=== PATIENT | female | born 1960 | race Caucasian/White ===

== ENCOUNTER 2022-02-25 14:43 | Outpatient (REF) | payer OTHER, SELFPAY ==
[2022-02-26 04:00] LABS: CT PCR NOT DETECTED (Not Detect.); NG PCR NOT DETECTED (Not Detect.)
[2022-02-26 11:00] LABS: BV Int Neg Control Negative (Negative); BV Int Pos Control Positive (Positive)
[2022-03-01 08:32] LABS: HPV mRNA E6/E7 rflx Not Detected (Not Detected)
== END 2022-02-25 14:44 | disposition home or self-care (01) ==
LOC: HO.LAB 14:43
PROVIDERS: Visit Provider Advanced Practice Midwife
DX: Z01.411 Encounter for gynecological examination (general) (routine) with abnormal findings (principal); Z11.51 Encounter for screening for human papillomavirus (HPV); R10.2 Pelvic and perineal pain; N89.8 Other specified noninflammatory disorders of vagina; Z20.2 Contact with and (suspected) exposure to infections with a predominantly sexual mode of transmission; R21 Rash and other nonspecific skin eruption; N64.59 Other signs and symptoms in breast; F17.200 Nicotine dependence, unspecified, uncomplicated; Z71.6 Tobacco abuse counseling
CPT/HCPCS: 87480; 87491; 87510; 87591; 87624; 87660; 88142

== ENCOUNTER 2022-03-18 13:30 | Outpatient (REF) | payer OTHER, SELFPAY ==
--- NOTE | ~2022-03-18 | US_ITS ---
EXAMINATION: US PELVIS CLINICAL INFORMATION: Pelvic and perineal pain. COMPARISON: Ultrasound pelvis report 01/19/2007 TECHNIQUE: Ultrasound of the pelvis was performed using both transabdominal and transvaginal transducers along with Doppler. Transvaginal imaging was performed due to inadequate visualization transabdominally. FINDINGS: Uterus: The uterus is anteverted and anteflexed and measures 9.0 x 3.8 x 4.1 cm The double wall endometrial thickness is not visualized. The uterus is smooth in contour and has normal myometrial echogenicity. No visible fibroid. A fibroid was visualized on the previous ultrasound exam in 2006. Adnexa: Both ovaries are visualized. There is normal color-flow to the adnexa. There is no ovarian torsion. There is no pelvic ascites or fluid collection. Right ovary measures 2.2 x 1.6 x 2.1 cm and volume 3.9 mL. It appears unremarkable. Previously, the right ovary measured 2.0 x 1.7 x 1.8 cm. Left ovary measures 2.3 x 1.5 x 2.3 cm and volume 4.2 mL. It appears unremarkable. Previously, the left ovary measured 2.3 x 1.7 x 2.0 cm. US/US pelvic and transvaginal IMPRESSION: Unremarkable uterus. Endometrium is not well visualized. Both ovaries are unremarkable. There is no free fluid in the cul-de-sac.
== END 2022-03-18 13:31 | disposition home or self-care (01) ==
LOC: HO.US 13:30
PROVIDERS: PCP Internal Medicine; Visit Provider Advanced Practice Midwife
DX: R10.2 Pelvic and perineal pain (principal)
CPT/HCPCS: 76830; 76856

== ENCOUNTER 2022-03-23 14:25 | Outpatient (REF) | payer OTHER, SELFPAY ==
--- NOTE | ~2022-03-23 | MM_ITS ---
EXAMINATION: MM DIAGNOSTIC DIGITAL BREAST TOMOSYNTHESIS, BILATERAL US DIAGNOSTIC ULTRASOUND BREAST, LEFT CLINICAL INFORMATION: Firmness left breast noted by patient for several months. Subtle skin changes. No discharge. Family history breast cancer, mother. The lifetime risk of breast cancer based on the Tyrer-Cuzick Model is 16%. COMPARISON: Mammography: 08/23/2016 TECHNIQUE: Digital breast tomosynthesis is performed in both the craniocaudal and mediolateral oblique views along with computer-aided detection (CAD). Synthesized 2D images are generated from the tomosynthesis. Additional views are obtained: Left MLO, spot left CC, spot left ML x2. Ultrasound left breast is targeted to the anterior breast. Grayscale imaging and color Doppler are performed without and with harmonics. FINDINGS: There are scattered areas of fibroglandular density (ACR BI-RADS breast composition Category b). Breast tissue composition borders on predominantly fatty. The right breast is stable, similar to prior exam 2016. There is no interval mass or architectural abnormality or skin thickening. No abnormal calcifications in either breast. Left breast has diffuse smooth skin thickening predominantly anterior breasts. There is subtle asymmetric density 12:00 periareolar position. Ultrasound left breast demonstrates an irregular hypoechoic mass adjacent to the deep dermis measuring approximately 0.9 x 0.8 cm. There is some associated color flow and subtle posterior shadowing. The lesion does not appear to be fixed to the skin and is able to be rolled from the deep dermis with transducer compression. There is diffuse skin thickening, measuring up to 0.7 cm in thickness. Results are discussed with the patient at time of visit. Recommend surgical consult, surgeon performed skin punch biopsy, and ultrasound-guided core biopsy of the periareolar lesion. Results and recommendation also called to [employer] senior officer (Angelina) for PCP, Dr. Reyes. MM/MM tomosynthesis diagnostic BI IMPRESSION: Left: -Suspicious irregular hypoechoic lesion 12:00 periareolar, measuring 0.9 cm. -Abnormal diffuse thickening skin. Right: -No mammographic evidence of malignancy. ASSESSMENT: BI-RADS 4: Suspicious (subcategory 4C: High suspicion for malignancy) RECOMMENDATION: -Surgical consult. Skin punch biopsy. -Ultrasound-guided core biopsy left breast mass.
== END 2022-03-23 14:26 | disposition home or self-care (01) ==
LOC: HO.MAMMO 14:25
PROVIDERS: PCP Internal Medicine; Visit Provider Advanced Practice Midwife
DX: N64.59 Other signs and symptoms in breast (principal)
CPT/HCPCS: 76642; 77062; 77066

== ENCOUNTER → 2022-03-25 08:05 | Outpatient (BNVA) | payer OTHER, SELFPAY | PROVIDERS: PCP Internal Medicine; Referring Provider Internal Medicine; Visit Provider Surgery | DX: N63.20 Unspecified lump in the left breast, unspecified quadrant (principal) | CPT/HCPCS: 99202 ==

== ENCOUNTER 2022-03-29 13:03 | Outpatient (REF) | payer OTHER, SELFPAY ==
--- NOTE | ~2022-03-29 | MM_ITS ---
EXAMINATION: ULTRASOUND GUIDED CORE BIOPSY BREAST, LEFT POST PROCEDURE DIGITAL MAMMOGRAM, LEFT CLINICAL INFORMATION: Irregular hypoechoic lesion 12:00 periareolar, or approximately 1 cm. Abnormal diffuse skin thickening. COMPARISON: Mammography 03/23/2022, 08/23/2016, ultrasound left breast 03/23/2022. FINDINGS: Proper informed consent is obtained from the patient after discussion of the procedure, potential risks and complications, and alternatives. Patient was given an opportunity for questions. The patient appeared to understand. The patient consented to the procedure and signed the consent form. GUIDANCE: Ultrasound-guided; aseptic technique. LESION: Irregular superficial hypoechoic lesion 12:00 periareolar left breast with diffuse skin thickening. APPROACH: Lateral medial. ANESTHESIA: 14 mL carbonated 1% lidocaine. DERMATOTOMY: Single skin kory dermatotomy performed. NEEDLE: 14-gauge Achieve core biopsy device with 13.5-gauge co-axial guide needle. CORES: 5. CLIP: HydroMARK; shape: butterfly. POST PROCEDURE UNILATERAL DIGITAL MAMMOGRAM: The post biopsy mammogram is performed in separate room using separate digital mammography equipment from the biopsy procedure. CC and ML views are obtained. There are scattered areas of fibroglandular density (breast composition category: b). The clip marker is in position and corresponds to finding on recent mammography. Again, there is abnormal diffuse thickening of the skin left breast. No gross hematoma. The patient tolerated the procedure well. No immediate complications. Home instructions reviewed with the patient. Final pathology results are pending. MM/MM diagnostic mammo unilat LT IMPRESSION: 1. Status post ultrasound-guided core biopsy left breast. 2. Clip placed: HydroMARK; shape: butterfly. 3. Pathology pending. An addendum report will be issued.
[2022-03-29] MEDS: Lidocaine HCl 1 % 20 ML VIAL 15 ML SUBCUT (14:34)
[2022-03-29] MEDS: Sodium Bicarbonate 8.4% 50 MEQ/50 ML VIAL SUBCUT (14:35)
== END 2022-03-29 13:04 | disposition home or self-care (01) ==
LOC: HO.MAMMO 13:03
PROVIDERS: Visit Provider Internal Medicine
DX: N63.25 Unspecified lump in the left breast, overlapping quadrants (principal)
CPT/HCPCS: 19083; 36415; 77062; 77065; 88305; 88360; 88374

== ENCOUNTER 2022-04-01 12:46 | Outpatient (REF) | payer OTHER, SELFPAY | END 2022-04-01 12:47 | disposition home or self-care (01) | LOC: HO.LAB 12:46 | PROVIDERS: PCP Internal Medicine; Referring Provider Internal Medicine; Visit Provider Surgery | DX: C50.912 Malignant neoplasm of unspecified site of left female breast (principal); F17.210 Nicotine dependence, cigarettes, uncomplicated; B37.3 Candidiasis of vulva and vagina; Z71.2 Person consulting for explanation of examination or test findings; Z79.899 Other long term (current) drug therapy | CPT/HCPCS: 88305; 88312; 99212 ==

== ENCOUNTER → 2022-04-08 07:49 | Outpatient (BNV) | payer OTHER, SELFPAY | PROVIDERS: PCP Internal Medicine; Referring Provider Surgery; Visit Provider Internal Medicine Medical Oncology | DX: C50.912 Malignant neoplasm of unspecified site of left female breast (principal); C77.3 Secondary and unspecified malignant neoplasm of axilla and upper limb lymph nodes; Z17.0 Estrogen receptor positive status [ER+]; D75.1 Secondary polycythemia | CPT/HCPCS: 99204; 99212; 99213; 99214 ==

== ENCOUNTER → 2022-04-08 09:19 | Outpatient (BNVA) | payer OTHER, SELFPAY | PROVIDERS: PCP Internal Medicine; Referring Provider Internal Medicine; Visit Provider Surgery | DX: C50.912 Malignant neoplasm of unspecified site of left female breast (principal) | CPT/HCPCS: 99212 ==

== ENCOUNTER → 2022-04-27 07:47 | Day surgery (SDC) | payer OTHER, SELFPAY ==
[2022-04-21 11:42] VITALS: BMI 37.0
--- NOTE | 2022-04-26 11:41 | HO.ANESPROP2 ---
HPI - Anesthesia Eval Consult details Narrative: CX'd DOS for hyperglycemia 62yo F for Left Breast Lumpectomy/Needle Loc, [place] Node Biopsy PMFSH Active Problems Active Problems: All Active Problems (Updated 04/21/22 @ 11:54 by Kamryn Freedman, RN) Type 2 diabetes mellitus with hyperglycemia (Acute) Generalized anxiety disorder (Acute) Urge incontinence (Acute) Obesity (BMI 30-39.9) (Acute) RLS (restless legs syndrome) (Acute) Colonoscopy refused (Acute) Mammogram declined (Acute) Ductal carcinoma in situ (DCIS) of left breast (Acute) Tobacco abuse (Acute) Encounter to discuss test results (Acute) Vaginal yeast infection (Acute) DCIS (ductal carcinoma in situ) (Acute) Invasive ductal carcinoma of left breast (Acute) Peripheral vascular disease (Acute) Hypertension (Acute) COPD (chronic obstructive pulmonary disease) (Acute) Hypercholesterolemia (Acute) Past Medical History Medical History (Updated 04/30/22 @ 12:34 by JESSICA Webster) Arthritis Cervical cancer screening COPD (chronic obstructive pulmonary disease) DCIS (ductal carcinoma in situ) Diabetes History of anal fissures History of palpitations History of unsteady gait Hx of renal calculi Hypercholesterolemia Hypertension Invasive ductal carcinoma of left breast Low back pain Mild heartburn Peripheral vascular disease Thyroid nodule Urinary incontinence Family History Family History (Updated 04/30/22 @ 11:54 by EDEN Shelton) Mother History of breast cancer Father No problems noted. Brother No problems noted. Brother No problems noted. Daughter No problems noted. Surgical History Surgical History (Updated 04/30/22 @ 12:04 by EDEN Shelton) History of appendectomy History of biopsy History of bladder surgery History of cholecystectomy History of endometrial ablation History of left knee replacement History of tonsillectomy Hx of tubal ligation Social History Social History Household Members: Spouse and Children Housing: House Are you a primary pediatric acute care unit nurse to a significant other at home: Yes (primary pediatric acute care unit nurse for disabled , will have some assistance post-op) Do you presently have visiting nurse or other home services: No Alcohol intake: never Patient Tobacco Use Status: Current everyday Tobacco user Tobacco use type: Cigarette Cigarette Packs Per Day: 0.5 Cigarettes Per Day: 10 Years Smoked: 40+ e-Cigarette/Vaping Use: Never Used Second Hand Smoke Exposure: Yes service: No Current occupational status: disabled Cognitive needs: No Hearing needs: No Vision needs: No Meds Allergies Allergy/AdvReac Type Severity Reaction Status Date / Time diclofenac [From Voltaren] Allergy Severe ENLARGED Verified 04/30/22 11:56 LIVER lisinopril [From Zestril] Allergy Severe FLUID IN Verified 04/30/22 11:56 LUNG oxybutynin [Oxybutynin] Allergy Severe BODY Verified 04/30/22 11:56 TWITCHING Penicillins [PENICILLINS] Allergy Intermediate Facial Verified 04/30/22 11:56 Swelling Home Medications Medication Instructions Recorded Confirmed Last Taken Type albuterol sulfate 2.5 mg inhalation Q4-6H PRN 08/25/21 04/30/22 Unknown History Shortness Of Breath Or Wheezing albuterol sulfate 90 mcg/actuation 1 puff inhalation QID 08/25/21 04/30/22 Unknown History aerosol inhaler (Ventolin HFA) cholecalciferol (vitamin D3) 50 50 mcg PO DAILY 02/25/22 04/30/22 Unknown History mcg (2,000 unit) capsule solifenacin 5 mg tablet (Vesicare) 5 mg PO DAILY 04/08/22 04/30/22 Unknown History acetaminophen 500 mg tablet 1,000 mg PO Q6H PRN Pain 04/21/22 04/30/22 Unknown History Exam Exam Date and Time: April 26, 2022 1141 Height,Weight and Vital Signs: Height 5 ft 4 in Weight 97.976 kg Pertinent Lab Results Pertinent Lab Results: Laboratory Tests 04/08/22 04/08/22 09:11 09:11 WBC 13.0 H Hgb 16.7 H Hct 50.1 H Plt Count 271 Sodium 134 L Potassium 4.7 Chloride 103 Carbon Dioxide 23 BUN 13 Creatinine 0.81 Assessment and Plan Assessment Anesthesia Assessment: Chart Reviewed
--- NOTE | 2022-04-27 | ECG_ITS ---
Test Reason : PREOP Blood Pressure : / mmHG Vent. Rate : 096 BPM Atrial Rate : 096 BPM P-R Int : 144 ms QRS Dur : 084 ms QT Int : 362 ms P-R-T Axes : 042 034 057 degrees QTc Int : 457 ms Normal sinus rhythm Normal ECG When compared with ECG of 25-SEP-2010 18:10, No significant change was found Referred By: Dulce Park Electronically Signed By:SALAZAR SIMON
--- NOTE | ~2022-04-27 | US_ITS ---
PROCEDURE: US GUIDED AXILLARY LYMPH NODE BIOPSY, LEFT CLINICAL INFORMATION: Left breast malignancy with abnormal-appearing axillary lymph node. COMPARISON: Mammography of March 29, 2022 and studies dating back to January 31, 2007 PROCEDURAL DETAILS: The details of the procedure, as well as the risks, benefits, and alternatives to the procedure were explained to the patient in detail and all of her questions were answered, after which written informed consent was obtained. Site and side were confirmed. Prior to the procedure, sonography revealed an abnormally appearing axillary lymph node with somewhat lobulated and thickened cortex with portions of the cortex measuring greater than 5 mm in diameter.. A time-out was performed, the lesion intended for biopsy was targeted, and the skin of the left axilla was then prepped and draped in the usual sterile fashion. Using sonographic guidance, sterile technique, and 1% lidocaine without epinephrine for local anesthesia, multiple automated core biopsies were obtained through the targeted area with a 14G spring loaded Achieve core biopsy device. There was real-time confirmation of appropriate needle passage. Sampling was documented. At the completion of tissue sampling, a single coil-shaped metallic clip was deposited at the biopsy site. There was no evidence of immediate complication. SPECIMEN: An appropriate sample was obtained. A postprocedure mammogram was not performed since the lesion was high up in the axilla and there was real-time visualization of the clip deposition within the lymph node. The patient tolerated the procedure well and, after assuring adequate hemostasis, was discharged in good condition after reviewing postbiopsy breast care instructions. Final pathology results are pending. US/US breast LT limited IMPRESSION: 1. No immediate complication from ultrasound-guided percutaneous biopsy left axillary lymph node . 2. Ultrasound was used to localize and guide marker clip placement. 3. Final pathology results are pending. A separate report with final recommendations will be issued once these results are made available. .
--- NOTE | 2022-04-27 10:21 | PC.NURSE ---
surgery cancelled due to blood sugar of 365.
--- NOTE | 2022-04-27 10:27 | PM.EVENT ---
Event Note Date of Service: 04/27/22 Event Note: procedure canceled by anesthesiologist because of markedly elevated blood sugar at 365 will that primary care provider know images also reviewed with the radiologist this morning - possibly enlarged lymph node in the left axilla will send for ultrasound axilla now with possible core needle biopsy explained patient above issues she says she understands and comfortable with plan
[2022-04-27 10:29] LABS: Glucose, Whole Blood 365 mg/dL (60-115)
[2022-04-27] MEDS: Lidocaine HCl 1 % 20 ML VIAL 10 ML SUBCUT (12:04)
== END ==
PROVIDERS: PCP Internal Medicine; Visit Provider Surgery
DX: C50.912 Malignant neoplasm of unspecified site of left female breast (principal); Z53.09 Procedure and treatment not carried out because of other contraindication; E11.65 Type 2 diabetes mellitus with hyperglycemia; Z79.84 Long term (current) use of oral hypoglycemic drugs
CPT/HCPCS: 38505; 76642; 76942; 82947; 88305; 88341; 88342; 88360; 93005; A4648

== ENCOUNTER 2022-05-07 09:18 | Outpatient (REF) | payer OTHER, SELFPAY ==
[2022-05-07 10:34] LABS: Leukocytes Stool Qualitative NEGATIVE (NEGATIVE)
[2022-05-07 10:47] LABS: CDiff Gene PCR NEGATIVE (Negative)
== END 2022-05-07 09:19 | disposition home or self-care (01) ==
LOC: HO.LNP 09:18
PROVIDERS: Visit Provider Internal Medicine Medical Oncology
DX: R19.7 Diarrhea, unspecified (principal); E11.9 Type 2 diabetes mellitus without complications; C50.919 Malignant neoplasm of unspecified site of unspecified female breast
CPT/HCPCS: 87045; 87046; 87493; 89055

== ENCOUNTER → 2022-05-10 12:38 | Outpatient (BNVA) | payer OTHER, SELFPAY | PROVIDERS: PCP Internal Medicine; Visit Provider Surgery | DX: C50.912 Malignant neoplasm of unspecified site of left female breast (principal) | CPT/HCPCS: 99212 ==

== ENCOUNTER 2022-05-20 14:14 | Outpatient (REF) | payer OTHER, SELFPAY ==
--- NOTE | ~2022-05-20 | XR_ITS ---
EXAMINATION: XR HIP, LEFT CLINICAL INFORMATION: Pain in left hip. COMPARISON: CT abdomen and pelvis 06/30/2007. TECHNIQUE: AP view pelvis and AP and frog-lateral projections of the left hip are obtained. FINDINGS: There is a stimulator lead overlying right sacrum and pelvis with generator right lateral soft tissues. No lead fracture. There are degenerative changes lower lumbar spine with mild levocurvature. Mild degenerative change SI joints. The bony pelvis is intact. There is whiskering from the bilateral lateral iliac crests. Left hip shows no fracture, dislocation, or destructive process. No hip joint narrowing or erosive change. XR/XR hip LT min 2V IMPRESSION: -Stimulator device overlying right sacrum and pelvis. No lead fracture. -Degenerative changes lumbosacral spine. -Unremarkable left hip.
== END 2022-05-20 14:15 | disposition home or self-care (01) ==
LOC: HO.XRAY 14:14
PROVIDERS: Visit Provider Nurse Practitioner Family
DX: M25.552 Pain in left hip (principal)
CPT/HCPCS: 73502

== ENCOUNTER 2022-06-08 11:36 | Outpatient (REF) | payer OTHER, SELFPAY ==
--- NOTE | ~2022-06-08 | PE_ITS ---
EXAMINATION: Fluorine-18 FDG PET/CT Scan CLINICAL INDICATION: Initial treatment management. Invasive ductal carcinoma left breast at 12:00 in the periareolar region with ipsilateral metastatic left axillary lymph node. PROCEDURE: 67 minutes following the intravenous administration of 18.2 mCi of fluorine 18 FDG, images from the base of the skull to the mid thighs were obtained using a combined PET/CT scanner with CT scan based attenuation correction. No intravenous contrast was administered. Transverse, coronal, sagittal, and volume reconstruction projections were obtained. The patient's blood glucose as determined by a finger stick, was 201 mg/dl immediately prior to injection. The radiotracer was injected through the left antecubital superficial vein, without any complication. Total CT exam dose-length product 1219.41 mGy-cm * These CT images were obtained using dose optimization techniques as appropriate, variously including the following: Automated exposure control * Adjustment of mA and/or kV according to patient size (this includes techniques or standardized protocols for targeted exams where dose is matched to indication/reason for exam; i.e. extremities or head) * Use of iterative reconstruction technique COMPARISON: Ultrasound-guided left axillary lymph node biopsy done on 04/27/2022 and ultrasound-guided left breast periareolar 12:00 mass biopsy done on 03/29/2022. FINDINGS: NECK AND VISUALIZED HEAD: No metabolically active disease is present. THORAX: No metabolically active disease is present. Incidental note is made of heterogeneous asymmetric enlargement of the right lobe of the thyroid gland and hypodense nodules, not optimally characterized. The index biopsy proved malignancy involving the subareolar left breast shows mild increased metabolic activity. Multiple abnormal enlarged left axillary lymph nodes associated with mild increased metabolic activities are also noted, consistent with biopsy-proven metastatic left axillary lymphadenopathy. Please note that the maximum SUV value could not be accurately calculated due to technical error in the software. ABDOMEN AND PELVIS: No metabolically active disease is present. Hypodense approximately 1.7 cm left adrenal nodule with maximum Hounsfield value of -6.0 is most consistent with left adrenal lipid rich adenoma. There is a solid-appearing right adrenal approximately 2 cm maximum dimension mass identified with Hounsfield value of 27 (137:2) without any increased radiotracer activity, not optimally characterized. Follow-up CT scan per adrenal mass protocol with and without contrast including delayed imaging, as appropriate may be considered for further characterization. Incidental note is made of a right-sided extrarenal pelvis. Solitary sub-5 mm radiopaque nonobstructing calculus is present within the inferolateral calyx of the left kidney (118:2). MUSCULOSKELETAL: No suspicious focal lesion or metabolically active disease is identified. Note is however made of nonspecific mild increased radiotracer activity involving the distal part of the left forearm (79:2), without any definite CT correlate, not optimally characterized. Clinical correlation is recommended. Follow-up targeted ultrasound and/or MRI with intravenous contrast may also be considered, if clinically appropriate for further clarification. VASCULAR: Diffuse atherosclerotic disease of the aorta and is branches including coronary arterial calcifications are present. No evidence of any aortic aneurysm. PET/PET CT fusion skull to thigh IMPRESSION: 1. Previously identified left breast subareolar mass and left axillary lymphadenopathy shows mild increased radiotracer activities, consistent with clinically known biopsy-proven primary left breast malignancy and metastatic left axillary lymphadenopathy. No other additional metabolically active disease is identified within the remainder of the visualized part of the head and neck, chest abdomen and pelvis. 2. Incidental note however is made of lipid rich left adrenal adenoma and approximately 1.7 cm right adrenal solid non-FDG avid nodule with Hounsfield value of 27 which is not optimally characterized on this study. Follow-up CT scan per adrenal mass protocol with and without intravenous contrast including delayed imaging, as appropriate may be considered for further characterization of this right adrenal nodule. 3. Solitary sub-5 mm radiopaque nonobstructing left renal calculus. 4. Incidental note is made of nonspecific mild increased radiotracer activity involving the distal part of the left forearm, without any CT correlate, not optimally characterized. Clinical correlation/direct visualization as appropriate is recommended for further clarification. Follow-up targeted ultrasound and/or MRI with intravenous contrast may also be considered if clinically appropriate for further clarification.
== END 2022-06-08 11:37 | disposition home or self-care (01) ==
LOC: HO.PET 11:36
PROVIDERS: Visit Provider Internal Medicine Medical Oncology
DX: Z13.89 Encounter for screening for other disorder (principal)

== ENCOUNTER → 2022-06-17 14:04 | Outpatient (REF) | payer OTHER, SELFPAY ==
--- NOTE | 2022-06-17 15:19 | CA_ITS ---
Transthoracic Echocardiogram Patient (Last, First, Middle): Sarah Ervin A Gender: Female Date of : 1960 Age: 62 Procedure Date: 06/17/2022 Procedure Type: Transthoracic Echocardiogram Location: OP Height: 162.56 cm Weight: 96.62 kg BSA: 2.01 m2 Heart Rate: bpm BP: 149 / 70 mmHg Electrician Control Equipment: IDALIA Referring MD: Madina Mitchell MD Symptoms: breast cat, prechemotherapy assessment Study Quality: Adequate ECG Rhythm: Sinus Conclusions: - The left ventricular systolic function is normal. The visually estimated ejection fraction is between 55-60%. - No obvious valvular pathology seen on this study. - There is mild dilatation of the ascending aorta measuring 4.10 cm. Findings Left Ventricle Normal left ventricular cavity size. The left ventricular systolic function is normal. The visually estimated ejection fraction is between 55-60%. There is no evidence of regional wall motion abnormalities. Diastolic function is normal for age. There is mild septal asymmetric hypertrophy. Left ventricular peak global longitudinal strain diminished at -12.4%. Could also be technical. Right Ventricle Normal right ventricular cavity size and systolic function. Atria Both atria are normal in size. Aortic Valve The aortic valve was not well visualized. The aortic valve structure and function is likely normal. There is mild calcification of the aortic valve. There is no aortic valve stenosis. There is no aortic valve regurgitation. Mitral Valve There is mild anterior and posterior mitral leaflet thickening. There is no mitral valve regurgitation. There is no mitral valve stenosis. Pulmonic Valve The pulmonic valve is likely normal. Tricuspid Valve The tricuspid valve was not well visualized. There is trace tricuspid valve regurgitation. There is no evidence of pulmonary hypertension. Great Vessels There is mild dilatation of the ascending aorta measuring 4.10 cm. Venous The inferior vena cava is normal in size and collapses greater than 50% with inspiration. Prior Study Comparison Changes noted compared to prior study dated: 05/02/2015. See comment on aorta. Strain was not previously measured. Recommendations, Care & Conclusions No obvious valvular pathology seen on this study. Measurements 2D Linear Measurements IVSd: 1.12 0.6-0.9/0.6-1.0 cm LVIDd: 4.65 3.9-5.3/4.2-5.9 cm LVIDd Index: 2.31 2.4-3.2/2.2-3.1 cm/m2 LVIDs: 3.40 2.0-3.6 cm LVPWd: 0.71 0.7-1.1 cm LA Diam: 2.90 2.7-3.8/3.0-4.0 cm LAIDs Index: 1.44 1.5-2.3 cm/m2 LV Mass: 178.28 67-162/88-224 g LV Mass Index: 88.70 43-95/49-115 g/m2 LVOT Diam: 2.20 3.0+(-)1.3 cm 2D Systolic Function EF 4C: 62.40 >55% Mitral Valve MV Pk E: 0.66 MV PK A: 0.80 MV Decel Time: 209.00 E/A: 0.80 E'Lateral: 6.53 E'Medial: 6.96 E/E' Med: 9.40 E/E' Lat: 10.00 PHT: 61.00 MVA PHT: 3.61 Decel Graves: 3.13 Aortic Valve AoV Pk John: 1.43 AoV Mn John: 0.93 AoV VTI: 0.24 AoV Pk Grad: 8.00 Aov Mn Grad: 4.00 SANTOS Cont.VTI: 3.11 LVOT LVOT Pk John: 1.02 LVOT Mn John: 0.71 LVOT VTI: 0.20 LVOT Pk Grad: 4.00 LVOT Mn Grad: 2.00 LVOT Diam: 2.20 LVOT Area: 3.80 Diastolic Function MV Pk E: 0.66 MV Pk A: 0.80 E/A: 0.80 E'Medial: 6.96 E/E' Med: 9.40 E' Laterial: 6.53 E/E' Lat: 10.00 Right Ventricle TAPSE (mm): 23.20 TVS' John: 12.20 Tricuspid Valve RA Press: 3.00 Great Vessels Aorta Sinus of Valsalva: 3.10 2.0-3.5 cm Ao Asc: 4.10 2.1-3.4 cm Pulmonary Valve PV Pk John: 0.88 Peak PV Grad: 3.00 Updated in Other Vendor System with Status of Final Aditya Rai MD electronically signed on 06/18/2022 12:29:20 PM with status of Final
--- NOTE | 2022-06-17 16:09 | MHC.HEMONCSW ---
TREATMENT PLAN; CHEMOTHERAPY, THEN MASTECTOMY, THEN RADIATION. NURSE NAVIGATOR IS ARRANGING THIS.
== END ==
LOC: HO.CARD 14:04
PROVIDERS: PCP Nurse Practitioner Family; Visit Provider Internal Medicine Medical Oncology
DX: Z01.818 Encounter for other preprocedural examination (principal); C50.912 Malignant neoplasm of unspecified site of left female breast
CPT/HCPCS: 93306; 93356; 99212

== ENCOUNTER 2022-06-24 12:33 | Day surgery (SDC) | payer OTHER, SELFPAY ==
--- NOTE | ~2022-06-24 | IR_ITS ---
CLINICAL HISTORY: The patient is a 62-year-old female with breast cancer requiring chemotherapy, who presents to interventional radiology for placement of a right sided chest port as requested. PROCEDURES: 1. Real-time ultrasound-guided access into the right internal jugular vein after documentation of selected vessel patency, and permanent imaging storing in the patient records. 2. Placement of an 25 cm port. FLUOROSCOPY TIME: 1.2 DAP: 212 cGy centimeter squared PROCEDURE NOTE: Informed consent was obtained from the patient prior to the procedure. During this process, the procedure and potential alternatives were explained along with the intended outcome and benefits. The risks of the procedure, including the possibility of an unsuccessful procedure, as well as the risk of not doing the procedure, were discussed. The patient was given the opportunity to ask questions regarding the procedure and appeared competent to make decisions. A signed consent form documenting this discussion was placed in the medical record. A time-out procedure was performed. The patient was placed supine on the fluoroscopy table. The right neck and chest were prepped and draped in usual sterile fashion. Venous access was achieved into the right IJ vein using ultrasound and fluoroscopic guidance with a 5 F Micropuncture set. A small skin kory was made at the access site. The 0.018 wire was exchanged for a 0.035 in J wire, which was advanced to the IVC to maintain access during dissection of the pocket and the tunneling process. Attention was then directed to the chest. Lidocaine with 1:100,000 epinephrine was used for local anesthetic and a 3 cm incision was made. The pocket was dissected to the size of the port and then a subcutaneous tunnel was made to connect to the venotomy site. The catheter was sized and pulled through the tunnel.The micropuncture set sheath in the IJ was exchanged over the wire for a peel-away sheath. The inner dilator and J wire were removed and the catheter was advanced through the peel away sheath. The peel away sheath was subsequently removed. The catheter was connected to the port and sutured within the pocket with 3-0 monofilament suture. The catheter tip is located at the superior right atrium. The port was aspirated and flushed, then packed with 5 mL of heparin solution. The incision site was sutured using 4.0 Polysorb for the subcuticular layer. Tissue adhesive was then applied to the chest port site and internal jugular puncture site. FINDINGS: 1. Patent right IJ vein. 2. Tip of catheter in the superior right atrium. 3. Catheter flushes and aspirates well. 4. No pneumothorax. 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
[2022-06-24 13:16] VITALS: BP 130/92; PULSE 92; RESP 16; TEMP 36.2; O2SAT 98; BMI 36.6
[2022-06-24 13:23] LABS: Glucose, Whole Blood 141 mg/dL (60-115)
[2022-06-24 13:40] LABS: MANUAL DIFF FLAG NO
[2022-06-24 13:43] LABS: Basophils Absolute Auto 0.1 X10*3/uL (0.0-0.2); Basophils Percent Auto 0.9 % (0-2); Eosinophils Absolute Auto 0.4 X10*3/uL (0.0-0.4); Eosinophils Percent Auto 3.2 % (0-4); Hematocrit 47.8 % (37.0-47.0); Hemoglobin 16.1 g/dl (12.0-16.0); Imm Gran Abs Auto 0.05 X10*3/uL (0.00-0.03); Imm Gran Pct Auto 0.4 % (0.0-0.4); Lymphocytes Absolute Auto 2.5 X10*3/uL (1.2-4.9); Lymphocytes Percent Auto 22.2 % (20-40); Mean Corpuscular HGB Conc 33.7 g/dl (31.0-35.0); Mean Corpuscular Hemoglobin 30.9 pg (27.0-33.0); Mean Corpuscular Volume 91.7 fL (80.0-98.0); Mean Platelet Volume 10.4 fL (9.4-12.3); Monocytes Absolute Auto 0.9 X10*3/uL (0.1-1.2); Monocytes Percent Auto 7.5 % (2-11); Neutrophils Absolute Auto 7.5 x10*3/uL (2.0-8.3); Neutrophils Percent Auto 65.8 % (45-73); Platelet Count 274 X10*3/uL (160-400); Red Blood Count 5.21 X10*6/uL (4.20-5.50); Red Cell Distribution Width 13.3 % (11.0-16.0); White Blood Count 11.4 X10*3/uL (4.8-10.8)
[2022-06-24 13:48] LABS: INTERNATIONAL NORM RATIO 0.9 (0.9-1.1); Prothrombin Time 10.5 SEC (10.0-13.1)
[2022-06-24 13:50] LABS: Partial Thromboplastin Time 36.3 SEC (26.0-36.4)
[2022-06-24] MEDS: Lidocaine HCl 1%/Epi 1:100,000 20 ML VIAL INFILTRATI (15:27)
[2022-06-24 16:15] VITALS: BP 155/79; PULSE 90; RESP 20; TEMP 36.9; O2SAT 97
[2022-06-24 16:30] VITALS: BP 126/75; PULSE 88; RESP 18; O2SAT 98
[2022-06-24 16:45] VITALS: BP 130/75; RESP 19; TEMP 36.7; O2SAT 97
== END 2022-06-24 16:50 | disposition home or self-care (01) ==
PROVIDERS: Radiology Diagnostic Radiology; PCP Internal Medicine; Visit Provider Internal Medicine Medical Oncology
DX: Z45.2 Encounter for adjustment and management of vascular access device (principal); C50.912 Malignant neoplasm of unspecified site of left female breast; Z17.0 Estrogen receptor positive status [ER+]; E11.8 Type 2 diabetes mellitus with unspecified complications; Z79.4 Long term (current) use of insulin; Z88.0 Allergy status to penicillin; Z88.8 Allergy status to other drugs, medicaments and biological substances; F17.210 Nicotine dependence, cigarettes, uncomplicated
CPT/HCPCS: 36415; 36561; 82947; 85025; 85610; 85730; 99152; 99153; C1769; C1788; J1642; J2250; J3010

== ENCOUNTER 2022-07-15 07:49 | Outpatient (REF) | payer OTHER, SELFPAY ==
--- NOTE | ~2022-07-15 | CT_ITS ---
EXAMINATION: CT ADRENAL WITHOUT AND WITHOUT CONTRAST CLINICAL INFORMATION: Follow-up right adrenal lesions. History of breast cancer. COMPARISON: Previous PET/CT scan May [address] of the abdomen and pelvis January 2011. TECHNIQUE: Axial images through the abdomen with and without IV contrast. 80 mL of Omnipaque 350 intravenous contrast was given. Sagittal and coronal reconstructions on the technologist workstation were performed. This CT examination was performed using dose optimization techniques as appropriate, variously including the following: *Automated exposure control *Adjustment of mA and/or kV according to patient size (this includes techniques or standardized protocols for targeted exams where dose is matched to indication/reason for exam; i.e. extremities or head) *Use of iterative reconstruction technique FINDINGS: There are 3 adrenal lesions. There is a 1.8 x 2.4 cm right adrenal lesion. Hounsfield units precontrast measure 29. Hounsfield units postcontrast measure 78. Delayed Hounsfield units postcontrast measure 36. Relative washout measures 54%. There is a 1.8 x 2.4 cm left adrenal nodule. Hounsfield units precontrast measure -6. Hounsfield units postcontrast measure 45. Delayed Hounsfield units postcontrast measure 8. Relative washout measures 74%. There is a 1.1 x 2.1 cm more inferior left adrenal lesion. Hounsfield units precontrast measure 10. Hounsfield units postcontrast measure 49. Delayed Hounsfield units postcontrast measure 18. Relative washout measures 63%. All adrenal lesions have washout characteristics suggestive of benign adenomas. These do not appear appreciably changed compared to old CT from January 2011. The lung bases are clear. There is skin thickening of the left breast. The liver is low in attenuation suggestive of fatty infiltration. No focal liver lesion. Gallbladder not seen. No biliary duct dilatation. Normal pancreas. Normal spleen. Small stone in the lower pole of the left kidney. Small left renal cyst. Fullness of the right renal pelvis questionable for mild UPJ obstruction versus extrarenal pelvis. No calyceal dilatation. Atherosclerotic disease. No aneurysm. No ascites or adenopathy. Visualized bowel is unremarkable. There are degenerative changes of the spine. There are lucent lesions in the L3 and L4 spinous processes. This did not demonstrate increased uptake on PET CT scan and could be related to degenerative change. CT/CT adrenal wo/w con IMPRESSION: 3 adrenal lesions, one on the right and 2 on the left. All adrenal lesions have washout characteristics suggestive of benign adenomas. Small left renal stone and small left renal cyst. Fatty liver.
[2022-07-15] MEDS: iohexoL 350 MG/ML 100 ML INFUS..BTL IV (09:41)
== END 2022-07-15 07:50 | disposition home or self-care (01) ==
LOC: HO.CT 07:49
PROVIDERS: PCP Internal Medicine; Visit Provider Internal Medicine Medical Oncology
DX: D35.00 Benign neoplasm of unspecified adrenal gland (principal); E11.65 Type 2 diabetes mellitus with hyperglycemia; E04.1 Nontoxic single thyroid nodule
CPT/HCPCS: 74170; 82947; 83036; 99202; Q9967

== ENCOUNTER → 2022-07-23 12:40 | Outpatient (BNVA) | payer OTHER, SELFPAY | PROVIDERS: PCP Internal Medicine; Visit Provider Registered Nurse Diabetes Educator | DX: E11.65 Type 2 diabetes mellitus with hyperglycemia (principal) | CPT/HCPCS: 99211 ==

== ENCOUNTER 2022-08-12 15:23 | Outpatient (REF) | payer OTHER, SELFPAY ==
--- NOTE | ~2022-08-12 | US_ITS ---
EXAMINATION: US VENOUS ULTRASOUND WITH DOPPLER LOWER EXTREMITY, RIGHT CLINICAL INFORMATION: Right lower extremity edema COMPARISON: None TECHNIQUE: Ultrasound of the deep veins is performed from the hip to the calf with compression sonography and color and pulse Doppler assessment. Spectral analysis with color-flow imaging is performed. FINDINGS: There is normal venous compression and respiratory variation and augmented flow. The visualized common femoral vein, superficial femoral vein, profunda femoral vein, popliteal vein, and the trifurcation region shows no evidence of deep venous thrombosis. The peroneal vein was not seen. There is no significant popliteal fossa cyst. If the patient's symptoms persist, followup ultrasound in 5 days 7 days might be of value to exclude proximal propagation from a non-visualized calf vein. US/US venous duplex LE RT IMPRESSION: No DVT demonstrated in the right lower extremity.
== END 2022-08-12 15:24 | disposition home or self-care (01) ==
LOC: HO.US 15:23
PROVIDERS: Visit Provider Internal Medicine Medical Oncology
DX: R60.0 Localized edema (principal); M79.604 Pain in right leg
CPT/HCPCS: 93971

== ENCOUNTER → 2022-08-16 13:56 | Outpatient (BNVA) | payer OTHER, SELFPAY | PROVIDERS: PCP Internal Medicine; Visit Provider Dietitian, Registered | DX: E11.65 Type 2 diabetes mellitus with hyperglycemia (principal) | CPT/HCPCS: 97802 ==

== ENCOUNTER → 2022-08-19 13:49 | Outpatient (BNVA) | payer OTHER, SELFPAY | PROVIDERS: PCP Internal Medicine; Visit Provider Surgery | DX: C50.912 Malignant neoplasm of unspecified site of left female breast (principal) | CPT/HCPCS: 99212 ==

== ENCOUNTER 2022-09-02 14:33 | Outpatient (REF) | payer OTHER, SELFPAY ==
--- NOTE | ~2022-09-02 | US_ITS ---
EXAM: CT scan of the head and cervical spine. INDICATION: Reason for Exam right lower extremity edema. TECHNIQUE: A noncontrast CT scan was performed from the skull base to the vertex. A noncontrast CT scan of the cervical spine was performed from the base of the skull through T1 at 2.5 mm and 1.25 mm collimation. Coronal and sagittal reformats were obtained at the acquisition workstation. This CT examination was performed using dose optimization techniques as appropriate, variously including the following: *Automated exposure control *Adjustment of mA and/or kV according to patient size (this includes techniques or standardized protocols for targeted exams where dose is matched to indication/reason for exam; i.e. extremities or head) *Use of iterative reconstruction technique DLP: 675 and 507 mGy-cm COMPARISON: None FINDINGS: Head: There is no evidence of acute intracranial hemorrhage or territorial infarction. Ribeiro-white matter differentiation is preserved. No abnormal mass effect or midline shift. No extra-axial fluid collections. No abnormal attenuation is demonstrated within the brain parenchyma. Scattered periventricular and deep white matter hypodensities consistent with microangiopathy. The ventricles and sulcal spaces are proportional without hydrocephalus. Proportional prominence of the ventricles and sulcal spaces. No acute osseous or soft tissue abnormalities. The mastoid air cells and visualized portions of the paranasal sinuses are well aerated. Cervical Spine: The atlantooccipital and atlantoaxial articulations intact. Reversal of the normal cervical lordosis. Otherwise, there is anatomic alignment of the vertebral bodies and posterior elements. No evidence of acute fracture or subluxation. Relatively pronounced degenerative disc disease throughout cervical spine. There is no prevertebral soft tissue swelling. The thyroid gland and remaining cervical soft tissues are normal in appearance. The lung apices demonstrate no abnormalities. US/US venous duplex LE RT IMPRESSION: No acute intracranial pathology. No fracture subluxation cervical spine. EXAMINATION: LOWER EXTREMITY VENOUS ULTRASOUND CLINICAL INFORMATION: Pain COMPARISON: None. TECHNIQUE: Doppler spectral analysis and color flow Doppler imaging was performed of the lower extremity. Compression and augmentation maneuvers were performed. FINDINGS: The right common femoral, femoral, popliteal veins were well-identified and normal. They demonstrate normal compressibility and color fill-in without evidence of venous thrombosis. ADDITIONAL FINDINGS: None. IMPRESSION: No evidence for right lower extremity deep vein thrombosis.
== END 2022-09-02 14:34 | disposition home or self-care (01) ==
LOC: HO.US 14:33
PROVIDERS: PCP Internal Medicine; Visit Provider Internal Medicine Medical Oncology
DX: I82.401 Acute embolism and thrombosis of unspecified deep veins of right lower extremity (principal); R60.0 Localized edema
CPT/HCPCS: 93971

== ENCOUNTER 2022-09-03 19:21 | Inpatient (IN) | payer OTHER, SELFPAY ==
--- NOTE | ~2022-09-03 | XR_ITS ---
EXAMINATION: XR knee LT 4V CLINICAL INFORMATION: Reason for Exam fall onto knees COMPARISON: None. TECHNIQUE: Four views of the knee XR/XR knee LT 4V FINDINGS/IMPRESSION: * No acute fracture or dislocation. * Status post total knee arthroplasty. No evidence of hardware fracture or complication. * Small suprapatellar joint effusion. Diffuse subcutaneous edema.
--- NOTE | ~2022-09-03 | CT_ITS ---
EXAMINATION: CT ANGIOGRAM OF THE CHEST; CONTRAST-ENHANCED CT OF THE ABDOMEN AND PELVIS INDICATION: Shortness of breath, history of malignancy, rule out PE, leukocytosis, nausea, poor by mouth intake COMPARISON: 07/15/2022 TECHNIQUE: 100 MLO Omnipaque 350 IV contrast was utilized. Multidetector helical imaging was performed through the chest per PE protocol. Coronal, sagittal, and MIP images of the chest were created. In addition, multidetector helical imaging was performed through the abdomen and pelvis. Coronal and sagittal reformatted images were created at the technologist workstation. DOSE LOWERING TECHNIQUES: This CT examination was performed using dose optimization techniques as appropriate, variously including the following: - Automated exposure control - Adjustment of mA and/or kV according to patient size (this includes techniques or standardized protocols for targeted exams were dose is matched to indication/reason for exam; i.e. extremities or head) - Use of iterative reconstruction technique DLP: 1460 mGy-cm FINDINGS: Chest: No filling defects are seen in the main, lobar, or segmental pulmonary arteries to suggest the presence of pulmonary emboli. Several mild patchy peripheral groundglass opacities are noted in the bilateral upper lobes. No pneumothorax or pleural effusion. Mild asymmetric prominence of the right thyroid lobe. There are subcentimeter mediastinal lymph nodes within the range of normal variation. Cardiac size is within normal limits; no pericardial effusion. No evidence of aortic dissection. Scattered atherosclerotic plaque and calcification along the aorta. Right IJ port catheter tip lies in the region of the cavoatrial junction. No axillary lymphadenopathy is present. Asymmetric left breast skin thickening noted, also present on prior PET CT 06/08/2022. Abdomen/Pelvis: The liver is homogeneous in attenuation without intrahepatic biliary ductal dilatation. The gallbladder appears absent. The spleen and pancreas appear unremarkable. Redemonstrated bilateral adrenal nodules, previously characterized as adenomas on adrenal protocol CT 07/15/2022. Bilateral nephrograms are symmetric. Prominent right extrarenal pelvis again noted. Small bilateral hypoattenuating renal lesions favor cysts; no follow-up recommended. No obstructing renal or ureteral calculi are present. A couple bilateral renal calculi are noted measuring up to 3 mm in the lower left kidney. The urinary bladder is unremarkable. The uterus and adnexa are unremarkable. No evidence of bowel obstruction or significant wall thickening. Sigmoid colon diverticulosis without diverticulitis. There is moderate stool within the colon. Appendix is not identified. No free fluid or free air is identified. Scattered atherosclerotic calcifications. No retroperitoneal or pelvic lymphadenopathy is seen. Generator device is present in the right flank subcutaneous tissues with lead extending to the right sacrum. Degenerative changes including prominent facet arthropathy in the lower lumbar spine. CT/CT angio chest PE protocol IMPRESSION: 1. No pulmonary embolus identified. 2. Several mild patchy peripheral groundglass opacities in the bilateral upper lobes, raising suspicion for an infectious/inflammatory etiology. Covid pneumonia would be a consideration. 3. Mild asymmetric prominence of the right thyroid lobe. Correlation with recent or follow-up thyroid ultrasound is advised. 4. No acute findings identified in the abdomen/pelvis.
--- NOTE | ~2022-09-03 | CT_ITS ---
EXAM: CT scan of the head and cervical spine. INDICATION: Reason for Exam right lower extremity edema. TECHNIQUE: A noncontrast CT scan was performed from the skull base to the vertex. A noncontrast CT scan of the cervical spine was performed from the base of the skull through T1 at 2.5 mm and 1.25 mm collimation. Coronal and sagittal reformats were obtained at the acquisition workstation. This CT examination was performed using dose optimization techniques as appropriate, variously including the following: *Automated exposure control *Adjustment of mA and/or kV according to patient size (this includes techniques or standardized protocols for targeted exams where dose is matched to indication/reason for exam; i.e. extremities or head) *Use of iterative reconstruction technique DLP: 675 and 507 mGy-cm COMPARISON: None FINDINGS: Head: There is no evidence of acute intracranial hemorrhage or territorial infarction. Ribeiro-white matter differentiation is preserved. No abnormal mass effect or midline shift. No extra-axial fluid collections. No abnormal attenuation is demonstrated within the brain parenchyma. Scattered periventricular and deep white matter hypodensities consistent with microangiopathy. The ventricles and sulcal spaces are proportional without hydrocephalus. Proportional prominence of the ventricles and sulcal spaces. No acute osseous or soft tissue abnormalities. The mastoid air cells and visualized portions of the paranasal sinuses are well aerated. Cervical Spine: The atlantooccipital and atlantoaxial articulations intact. Reversal of the normal cervical lordosis. Otherwise, there is anatomic alignment of the vertebral bodies and posterior elements. No evidence of acute fracture or subluxation. Relatively pronounced degenerative disc disease throughout cervical spine. There is no prevertebral soft tissue swelling. The thyroid gland and remaining cervical soft tissues are normal in appearance. The lung apices demonstrate no abnormalities. CT/CT cervical spine wo IV con IMPRESSION: No acute intracranial pathology. No fracture subluxation cervical spine. EXAMINATION: LOWER EXTREMITY VENOUS ULTRASOUND CLINICAL INFORMATION: Pain COMPARISON: None. TECHNIQUE: Doppler spectral analysis and color flow Doppler imaging was performed of the lower extremity. Compression and augmentation maneuvers were performed. FINDINGS: The right common femoral, femoral, popliteal veins were well-identified and normal. They demonstrate normal compressibility and color fill-in without evidence of venous thrombosis. ADDITIONAL FINDINGS: None. IMPRESSION: No evidence for right lower extremity deep vein thrombosis.
--- NOTE | ~2022-09-03 | XR_ITS ---
EXAMINATION: XR knee RT 4V CLINICAL INFORMATION: Reason for Exam fall onto knees COMPARISON: None. TECHNIQUE: Four views of the knee XR/XR knee RT 4V FINDINGS/IMPRESSION: * No acute fracture or dislocation. * Moderate tricompartmental degenerative changes of the knee with loss of joint space and osteophytosis and medial subluxation of the femur with respect to the tibia. No suprapatellar effusion. * Diffuse subcutaneous edema.
--- NOTE | ~2022-09-03 | XR_ITS ---
EXAMINATION: XR CHEST CLINICAL INFORMATION: Lower extremity swelling. COMPARISON: Chest x-ray 08/14/2007 TECHNIQUE: Frontal portable view of the chest was obtained. 7:59 PM FINDINGS: Central port catheter tip at cavoatrial junction. Cardiac mediastinal contours 4 normal. No pulmonary vascular congestion. Lungs are normally aerated. No pleural effusion or pneumothorax. There are multilevel degenerative spondylosis spine. Degenerative joint disease of the glenohumeral joints bilateral. XR/XR chest 1V IMPRESSION: No acute abnormality of chest.
[2022-09-03 19:48] VITALS: BP 159/75; BP 196/103; PULSE 108; PULSE 110; RESP 18; TEMP 36.6; O2SAT 98; O2SAT 99; BMI 37.8
[2022-09-03 20:59] LABS: Hematocrit 35.1 % (37.0-47.0); Hemoglobin 11.6 g/dl (12.0-16.0); Mean Corpuscular Hemoglobin 31.6 pg (27.0-33.0); Mean Corpuscular Volume 95.6 fL (80.0-98.0); Platelet Count 316 X10*3/uL (160-400); Red Blood Count 3.67 X10*6/uL (4.20-5.50); Red Cell Distribution Width 18.6 % (11.0-16.0)
[2022-09-03 21:01] LABS: Appearance Urine Clear; Color Urine Yellow; Glucose Urine UA Negative (Negative); Leukocyte Esterase Urine Trace (Negative); Nitrite Urine Negative (Negative); Specific Gravity - Urine <= 1.005 (1.005-1.025); UMIC TRIGGER UACC YES; Urine Blood Negative (Negative); Urine Ketones Negative (Negative); Urine Protein Negative (Neg-Trace)
[2022-09-03 21:03] LABS: WBC ABN SCTR FOR CBC 1
[2022-09-03 21:05] LABS: Bacteria Urine None Seen (None Seen); Hyaline Casts Urine 0-2 /LPF (0-2); RBC Urine 0-2 /HPF (0-2); Squamous Epithelial Cell Urine 0-2 /HPF (0-2); WBC Urine 0-5 /HPF (0-5)
[2022-09-03 21:05] LABS: White Blood Count 45.9 X10*3/uL (4.8-10.8)
[2022-09-03 21:11] LABS: COVID-19 Test Negative (Negative); IDNOW Serial# 55D5AD1C
[2022-09-03 21:13] LABS: Alanine Aminotransferase 18 U/L (0-31); Albumin Level 3.8 g/dL (3.5-5.0); Alkaline Phosphatase 111 U/L (39-117); Anion Gap 17 (12-20); Aspartate Amino Transferase 19 U/L (5-31); Bilirubin Total 0.5 mg/dL (0.0-1.0); Blood Urea Nitrogen 17 mg/dL (9-16); Calcium 9.1 mg/dL (8.4-10.2); Carbon Dioxide 21 mmol/L (22-29); Chloride 103 mmol/L (96-108); Creatinine Clr Calc Pharmacy 111.2; Estimated Glomerular Filt Rate > 60; Glucose Random 208 mg/dL (60-115); Magnesium 1.9 mg/dL (1.6-2.6); Potassium 4.9 mmol/L (3.3-5.1); Sodium 136 mmol/L (135-145); Total Protein 6.5 g/dL (6.5-8.0)
[2022-09-03 21:27] LABS: B Type Natriuretic Peptide 49 pg/mL (<100); Troponin-I High Sensitivity < 3.5 ng/L (<3.5-17.0)
[2022-09-03 21:30] LABS: Band Neutrophils Percent 1 % (3-5); Monocytes Absolute Manual 1.8 X10*3/uL (0.1-1.2); Monocytes Percent Manual 4 % (2-11); Neutrophils Absolute Manual 44.1 X10*3/uL (2.0-8.3); Neutrophils Percent Manual 95 % (45-73)
[2022-09-03 21:31] LABS: Macrocytosis 1+ (5-14) /OIF; RBC Morphology NOTED
[2022-09-03 21:32] LABS: Large Platelet PRESENT; Platelet Estimate NORMAL (NORMAL); Platelet Morphology Comment NOTED; Schistocytes 1+ (0-2) /OIF
[2022-09-03 21:33] LABS: Hypersegmented Neutrophils PRESENT; Polychromasia 1+ (0-2) /OIF; Toxic Vacuolation PRESENT
[2022-09-03 21:47] LABS: Lactic Acid 2.9 mmol/L (0.5-2.0)
[2022-09-03] MEDS: levoFLOXacin/D5W 500 MG/100 ML PIGGYBACK 100 MG IV (22:08)
[2022-09-03] MEDS: 0.9 % Sodium Chloride 2,993.7 ML 2993.7 ML IV (22:11)
--- NOTE | 2022-09-03 22:31 | ED.WEAKNESS ---
HPI - Weakness General Chief complaint: Weakness Stated complaint: fall Time Seen by Provider: 09/03/22 19:55 Source: patient Mode of arrival: ambulatory Limitations: no limitations History of Present Illness HPI Narrative: 62-year-old female with history of invasive ductal carcinoma of cancer receiving chemo ( last one on 09/02/22), hypertension, DM II, COPD, HTN, chronic knee pain presents to the emergency department after experiencing a mechanical fall at home has been feeling very weak latley. Patient reports she was walking up the stairs and her legs gave out and she fell onto her knees. Patient reports she was unable to get up and had numbness in her legs bilaterally. Patient expresses she she is experiencing weakness in her legs bilaterally and global weakness as well making it hard to fulfill her activities of daily living. When she fell did not hit her head no loc not on thinners. She tells me weakness has been worsening since chemo, last chemo was on . Patient reports she received post chemo injection yesterday. Patient reports baseline chest pain and shortness of breath a nothing out of the ordinary. Patient denies fever, chills, nausea, headaches, changes in vision. Reports poor p.o. intake. MD Complaint: generalized weakness Related Data Home Medications Medication Instructions Recorded Confirmed acetaminophen 325 mg capsule 325 mg PO QID PRN Pain 09/01/22 09/02/22 Previous Rx's Medication Instructions Recorded aspirin 81 mg tablet,delayed 81 mg PO DAILY 90 days #90 tabs 11/10/21 release (Adult Aspirin Regimen) clotrimazole-betamethasone 1 1 appl topical BID PRN itching 7 04/01/22 %-0.05 % topical cream days #45 grams glipizide 10 mg tablet 10 mg PO BID 90 days #180 tabs 05/14/22 alcohol swabs 1 pad topical .3x/day #100 ea 05/21/22 pen needle, diabetic 32 gauge x #100 ea 05/21/2211/24 (BD Ultra-Fine Micro Pen Needle) blood-glucose meter (FreeStyle #1 ea 05/28/22 Lite Meter kit) flash glucose scanning reader #2 ea 05/28/22 (FreeStyle Vinnie 14 Day Cos Cob) flash glucose sensor (FreeStyle #6 kits 05/28/22 Vinnie 14 Day Sensor kit) lancets 28 gauge (FreeStyle #100 ea 05/28/22 Lancets) ondansetron 8 mg disintegrating 8 mg PO Q8H #50 tabs 06/17/22 tablet ropinirole 1 mg tablet 1 mg PO BID #180 tabs 07/12/22 solifenacin 5 mg tablet (Vesicare) 5 mg PO DAILY #90 tabs 07/12/22 amlodipine 5 mg tablet 5 mg PO BID 90 days #180 tabs 07/19/22 cholecalciferol (vitamin D3) 50 50 mcg PO DAILY #90 caps 07/19/22 mcg (2,000 unit) capsule Novolog Flexpen U-100 Insulin 100 10 unit (0.1 mL) subcut TID #15 mL 07/22/22 unit/mL (3 mL) subcutaneous (insulin aspart U-100) blood sugar diagnostic (FreeStyle #100 ea 08/05/22 Lite Strips) clonidine HCl 0.1 mg tablet 0.1 mg PO BEDTIME #90 tabs 08/12/22 oxycodone 5 mg tablet 5 mg PO Q8H PRN Breakthrough Pain, 08/26/22 Mild #30 tabs albuterol sulfate 2.5 mg/3 mL 2.5 mg (3 mL) inhalation Q4-6H PRN 09/01/22 (0.083 %) solution for nebulization Shortness Of Breath Or Wheezing #180 mL albuterol sulfate 90 mcg/actuation 1 puff inhalation QID #8.5 grams 09/01/22 aerosol inhaler (Ventolin HFA) clotrimazole 1 % topical cream 1 appl topical BID 4 weeks #45 09/01/22 grams compress.stocking,knee,reg,lrg #12 ea 09/01/22 insulin glargine 100 unit/mL (3 20 unit (0.2 mL) subcut DAILY #15 09/01/22 mL) subcutaneous pen (Lantus mL Solostar U-100 Insulin) miconazole nitrate 2 % topical 1 appl topical BID #85 grams 09/01/22 powder (Zeasorb AF) paroxetine HCl 20 mg tablet 20 mg PO DAILY 90 days #90 tabs 09/01/22 umeclidinium 62.5 mcg-vilanterol 1 inh inhalation DAILY #60 ea 09/01/22 25 mcg/actuation powdr for inhalation (Anoro Ellipta) Allergies Allergy/AdvReac Type Severity Reaction Status Date / Time diclofenac [From Voltaren] Allergy Severe ENLARGED Verified 09/01/22 12:31 LIVER lisinopril [From Zestril] Allergy Severe FLUID IN Verified 09/01/22 12:31 LUNG oxybutynin [Oxybutynin] Allergy Severe BODY Verified 09/01/22 12:31 TWITCHING Penicillins [PENICILLINS] Allergy Intermediate Facial Verified 09/01/22 12:31 Swelling metformin AdvReac Intermediate Diarrhea Verified 09/01/22 13:28 Review of Systems Review of Systems: Constitutional : No Weight loss, No Fever, No Chills, No Fatigue, No Malaise ENT/Mouth : No sore throat, No Rhinorrhea Eyes: No Eye Pain, No Swelling, No Redness Cardiovascular : No Chest Pain, No SOB, No Dyspnea on Exertion, No Orthopnea, No Edema, No Palpitations Respiratory : No Cough, No Sputum, No Wheezing Gastrointestinal : No Nausea, No Vomiting, No Diarrhea, No Constipation, No abdominal Pain, No Hematochezia, No Melena Genitourinary : No Dysuria, No Urinary Frequency, No Hematuria, Musculoskeletal : No joint pain, No Myalgias, No Joint Swelling Skin : No Skin Lesions, No rash Neuro : + Weakness, No Numbness, No Dizziness, No Headache Psych : No Anxiety/Panic, No Depression All other systems reviewed and are negative Yes all other systems are reviewed and are negative [facility] Past Medical History Attestation statement: The following information was validated with the patient. Source: old records reviewed and nursing notes reviewed Medical History Adrenal adenoma Arthritis Cervical cancer screening COPD (chronic obstructive pulmonary disease) DCIS (ductal carcinoma in situ) Diabetes History of anal fissures History of palpitations History of unsteady gait Hx of renal calculi Hypercholesterolemia Hypertension Invasive ductal carcinoma of left breast Low back pain Mild heartburn Peripheral vascular disease Thyroid nodule Thyroid nodule Urinary incontinence Surgical History History of appendectomy History of biopsy History of bladder surgery History of cholecystectomy History of endometrial ablation History of left knee replacement History of tonsillectomy Hx of tubal ligation Family History Family History Mother History of breast cancer Father Prostate CA Brother No problems noted. Brother No problems noted. Daughter No problems noted. Social History Social History Household Members: Spouse and Children Housing: House Are you a primary career development coordinator to a significant other at home: Yes (primary career development coordinator for disabled , will have some assistance post-op) Do you presently have visiting nurse or other home services: No Alcohol intake: current Alcohol intake frequency: holidays/special occasions only Patient Tobacco Use Status: Current everyday Tobacco user Tobacco use type: Cigarette Cigarette Packs Per Day: 0.5 Cigarettes Per Day: 10 Years Smoked: 40+ e-Cigarette/Vaping Use: Never Used Second Hand Smoke Exposure: Yes Advance Directives: No Advance Directives Information Provided: No service: No Current occupational status: disabled Cognitive needs: No Hearing needs: No Vision needs: Yes Physical Exam Vital Signs: Vital Signs: Last Vital Signs Temp 97.9 F 09/04/22 01:38 Pulse 103 H 09/04/22 01:38 Resp 18 09/04/22 01:38 BP 164/86 H 09/04/22 01:38 Pulse Ox 99 09/04/22 01:38 O2 Del Method 09/04/22 01:38 BMI result Body Mass Index 37.8 vss Appearance: Alert.? Oriented X3.? No acute distress. Patient appears fatigued? Head: Normocephalic, atraumatic, no step-offs or deformities Eyes: Pupils equal, round and reactive to light.? ENT: Pharynx normal.? Neck: Normal inspection.? Neck supple.? CVS: Normal heart rate and rhythm.? Pulses normal.? Respiratory: No respiratory distress.? Breath sounds normal.? Abdomen: Soft and nontender.? Skin: Skin warm and dry.? Normal skin color.? Normal skin turgor.? Extremities: 1+ nonpitting edema to bilateral lower extremity? No calf ttp, negative Zoya. Global weakness. 2+ patellar DTRs. Pain with rom of b/l knees. 2+ Dp,AT,PT pulses equal and b/l. Back: No midline tenderness, no C-spine tenderness, full range of motion, no CVA tenderness bilaterally Neuro: Oriented X 3.? No motor deficit.? No sensory deficit. CN 2-12 intact . Normal [id number], [id number], unable to ambulate secondary to weakness and pain to bilateral lower extremities. Course Course Course Narrative: I did discuss this case with my attending who agrees w/ dx and tx plan. He tells me if patient is able to walk in eating and drinking she may be able to go home however if the weakness is severe may require hospital admission. Reevaluation(s) Reevaluation #1: CBC with elevated white blood cell count 45.9 however likely secondary to Decadron infusion and Neulasta injection that patient received yesterday, unlikely from infection. Chemistry with no acute electrolyte abnormalities requiring intervention, sugar slightly elevated however will hydrate with IV fluids. Troponin is negative, BNP within normal limits. Lactic acid 2.9, receiving IV hydration at this time. UA without infection. COVID negative. Chest x-ray with no acute findings. Time: 20:55 Reevaluation #2: CT of the head and cervical spine with no acute findings. Time: 22:39 Reevaluation #3: Patient reporting shortness of breath and tells me that it feels worse than her baseline. At this time is CTA of the chest will be ordered to rule out PE as patient is high risk due to malignancy. Patient still unable to ambulate secondary to weakness and pain to bilateral lower extremities. I discussed this case with hospitalist who agrees to admit patient into the hospital due to weakness, shortness of breath, failure to thrive. Time: 02:04 Additional Reevaluation(s): 216 Pending CTA of chest to r/lo pe hospitalist aware. Will sign case out to ED Dr. Arthur to fu on CTA of chest. Planned hospital admisison. MDM - Weakness MDM Narrative Medical decision making narrative: 0200 62-year-old female currently receiving chemotherapy for breast cancer presents to the emergency department with complaints of weakness, today she sustained a fall landing on both knees complaining of bilateral knee pain worse on the left. Patient tells me she has not been eating and drinking well. Not tolerating chemo well. Reports global weakness and has difficulty with activities of daily living. Physical examination with pain with range of motion to bilateral knees, global weakness. Regular rate and rhythm. Lungs clear. Abdomen soft nontender nondistended. Patient appears fatigued. Neuro nonfocal, cerebellar intact. Patient unable to ambulate secondary to pain and weakness. Patient with global weakness, I do not suspect that this is Guillain-[place]rie. Unlikely intracranial hemorrhage, posterior stroke. Will rule out ACS, EKG changes, electrolyte abnormalities an infection. Will obtain basic labs, urine, imaging. Medical Records Attestation: I reviewed the patient's medical records. Lab Data Attestation: I reviewed the patient's lab results. Result diagrams: 09/03/22 20:44 09/03/22 20:44 Labs: Lab Results 09/03/22 09/03/22 09/03/22 Range/Units 20:44 20:44 20:44 WBC 45.9 H* (4.8-10.8) X10*3/uL RBC 3.67 L (4.20-5.50) X10*6/uL Hgb 11.6 L (12.0-16.0) g/dl Hct 35.1 L (37.0-47.0) % MCV 95.6 (80.0-98.0) fL MCH 31.6 (27.0-33.0) pg MCHC 33.0 (31.0-35.0) g/dl RDW 18.6 H (11.0-16.0) % Plt Count 316 (160-400) X10*3/uL MPV 10.0 (9.4-12.3) fL Immature Gran % (Auto) Cancelled Neut % (Auto) Cancelled Lymph % (Auto) Cancelled Redwood % (Auto) Cancelled Eos % (Auto) Cancelled Baso % (Auto) Cancelled Lymph # (Auto) Cancelled Redwood # (Auto) Cancelled Eos # (Auto) Cancelled Baso # (Auto) Cancelled Abs Immat Gran (auto) Cancelled Absolute Neuts (auto) Cancelled Absolute Nucleated RBC 0.000 (0.0-0.012) X10*3/uL Nucleated RBC % (auto) 0.0 (0.0-0.2) /100WBC Neutrophils % (Manual) 95 H (45-73) % Band Neutrophils % 1 L (3-5) % Monocytes % (Manual) 4 (2-11) % Abs Neuts (Manual) 44.1 H (2.0-8.3) X10*3/uL Monocytes # (Manual) 1.8 H (0.1-1.2) X10*3/uL Hypersegmented Neuts PRESENT Toxic Vacuolation PRESENT Platelet Estimate NORMAL (NORMAL) Large Platelets PRESENT Plt Morphology Comment NOTED RBC Morphology NOTED Polychromasia 1+ (0-2) /OIF Macrocytosis 1+ (5-14) /OIF Schistocytes 1+ (0-2) /OIF Sodium 136 (135-145) mmol/L Potassium 4.9 D (3.3-5.1) mmol/L Chloride 103 (96-108) mmol/L Carbon Dioxide 21 L (22-29) mmol/L Anion Gap 17 (12-20) BUN 17 H (9-16) mg/dL Creatinine 0.61 (0.5-1.4) mg/dL Estim Creat Clear Calc 111.2 Estimated GFR > 60 POC Glucose (60-115) mg/dL Random Glucose 208 H (60-115) mg/dL Lactic Acid (0.5-2.0) mmol/L Lactic Acid F/U @ 2Hr (0.5-2.0) mmol/L Calcium 9.1 (8.4-10.2) mg/dL Magnesium 1.9 (1.6-2.6) mg/dL Total Bilirubin 0.5 (0.0-1.0) mg/dL AST 19 D (5-31) U/L ALT 18 (0-31) U/L Alkaline Phosphatase 111 (39-117) U/L Troponin I High Sens < 3.5 (<3.5-17.0) ng/L B-Natriuretic Peptide 49 (<100) pg/mL Total Protein 6.5 (6.5-8.0) g/dL Albumin 3.8 (3.5-5.0) g/dL Urine Color Urine Appearance Urine pH (5.0-9.0) Ur Specific Wittman (1.005-1.025) Urine Protein (Neg-Trace) mg/dL Urine Glucose (UA) (Negative) mg/dL Urine Ketones (Negative) mg/dL Urine Blood (Negative) Urine Nitrite (Negative) Ur Leukocyte Esterase (Negative) Urine RBC (0-2) /HPF Urine WBC (0-5) /HPF Ur Squamous Epith Cells (0-2) /HPF Urine Bacteria (None Seen) Hyaline Casts (0-2) /LPF COVID-19 (DARON) (Negative) COVID-19 Clin Com 09/03/22 09/03/22 09/03/22 Range/Units 20:44 20:48 21:27 WBC (4.8-10.8) X10*3/uL RBC (4.20-5.50) X10*6/uL Hgb (12.0-16.0) g/dl Hct (37.0-47.0) % MCV (80.0-98.0) fL MCH (27.0-33.0) pg MCHC (31.0-35.0) g/dl RDW (11.0-16.0) % Plt Count (160-400) X10*3/uL MPV (9.4-12.3) fL Immature Gran % (Auto) Neut % (Auto) Lymph % (Auto) Redwood % (Auto) Eos % (Auto) Baso % (Auto) Lymph # (Auto) Redwood # (Auto) Eos # (Auto) Baso # (Auto) Abs Immat Gran (auto) Absolute Neuts (auto) Absolute Nucleated RBC (0.0-0.012) X10*3/uL Nucleated RBC % (auto) (0.0-0.2) /100WBC Neutrophils % (Manual) (45-73) % Band Neutrophils % (3-5) % Monocytes % (Manual) (2-11) % Abs Neuts (Manual) (2.0-8.3) X10*3/uL Monocytes # (Manual) (0.1-1.2) X10*3/uL Hypersegmented Neuts Toxic Vacuolation Platelet Estimate (NORMAL) Large Platelets Plt Morphology Comment RBC Morphology Polychromasia /OIF Macrocytosis /OIF Schistocytes /OIF Sodium (135-145) mmol/L Potassium (3.3-5.1) mmol/L Chloride (96-108) mmol/L Carbon Dioxide (22-29) mmol/L Anion Gap (12-20) BUN (9-16) mg/dL Creatinine (0.5-1.4) mg/dL Estim Creat Clear Calc Estimated GFR POC Glucose (60-115) mg/dL Random Glucose (60-115) mg/dL Lactic Acid 2.9 H* (0.5-2.0) mmol/L Lactic Acid F/U @ 2Hr (0.5-2.0) mmol/L Calcium (8.4-10.2) mg/dL Magnesium (1.6-2.6) mg/dL Total Bilirubin (0.0-1.0) mg/dL AST (5-31) U/L ALT (0-31) U/L Alkaline Phosphatase (39-117) U/L Troponin I High Sens (<3.5-17.0) ng/L B-Natriuretic Peptide (<100) pg/mL Total Protein (6.5-8.0) g/dL Albumin (3.5-5.0) g/dL Urine Color Yellow Urine Appearance Clear Urine pH 6.0 (5.0-9.0) Ur Specific Wittman <= 1.005 (1.005-1.025) Urine Protein Negative (Neg-Trace) mg/dL Urine Glucose (UA) Negative (Negative) mg/dL Urine Ketones Negative (Negative) mg/dL Urine Blood Negative (Negative) Urine Nitrite Negative (Negative) Ur Leukocyte Esterase Trace H (Negative) Urine RBC 0-2 (0-2) /HPF Urine WBC 0-5 (0-5) /HPF Ur Squamous Epith Cells 0-2 (0-2) /HPF Urine Bacteria None Seen (None Seen) Hyaline Casts 0-2 (0-2) /LPF COVID-19 (DARON) Negative (Negative) COVID-19 Clin Com See Note 09/03/22 09/03/22 Range/Units 23:54 23:56 WBC (4.8-10.8) X10*3/uL RBC (4.20-5.50) X10*6/uL Hgb (12.0-16.0) g/dl Hct (37.0-47.0) % MCV (80.0-98.0) fL MCH (27.0-33.0) pg MCHC (31.0-35.0) g/dl RDW (11.0-16.0) % Plt Count (160-400) X10*3/uL MPV (9.4-12.3) fL Immature Gran % (Auto) Neut % (Auto) Lymph % (Auto) Redwood % (Auto) Eos % (Auto) Baso % (Auto) Lymph # (Auto) Redwood # (Auto) Eos # (Auto) Baso # (Auto) Abs Immat Gran (auto) Absolute Neuts (auto) Absolute Nucleated RBC (0.0-0.012) X10*3/uL Nucleated RBC % (auto) (0.0-0.2) /100WBC Neutrophils % (Manual) (45-73) % Band Neutrophils % (3-5) % Monocytes % (Manual) (2-11) % Abs Neuts (Manual) (2.0-8.3) X10*3/uL Monocytes # (Manual) (0.1-1.2) X10*3/uL Hypersegmented Neuts Toxic Vacuolation Platelet Estimate (NORMAL) Large Platelets Plt Morphology Comment RBC Morphology Polychromasia /OIF Macrocytosis /OIF Schistocytes /OIF Sodium (135-145) mmol/L Potassium (3.3-5.1) mmol/L Chloride (96-108) mmol/L Carbon Dioxide (22-29) mmol/L Anion Gap (12-20) BUN (9-16) mg/dL Creatinine (0.5-1.4) mg/dL Estim Creat Clear Calc Estimated GFR POC Glucose 164 H (60-115) mg/dL Random Glucose (60-115) mg/dL Lactic Acid (0.5-2.0) mmol/L Lactic Acid F/U @ 2Hr 1.8 (0.5-2.0) mmol/L Calcium (8.4-10.2) mg/dL Magnesium (1.6-2.6) mg/dL Total Bilirubin (0.0-1.0) mg/dL AST (5-31) U/L ALT (0-31) U/L Alkaline Phosphatase (39-117) U/L Troponin I High Sens (<3.5-17.0) ng/L B-Natriuretic Peptide (<100) pg/mL Total Protein (6.5-8.0) g/dL Albumin (3.5-5.0) g/dL Urine Color Urine Appearance Urine pH (5.0-9.0) Ur Specific Wittman (1.005-1.025) Urine Protein (Neg-Trace) mg/dL Urine Glucose (UA) (Negative) mg/dL Urine Ketones (Negative) mg/dL Urine Blood (Negative) Urine Nitrite (Negative) Ur Leukocyte Esterase (Negative) Urine RBC (0-2) /HPF Urine WBC (0-5) /HPF Ur Squamous Epith Cells (0-2) /HPF Urine Bacteria (None Seen) Hyaline Casts (0-2) /LPF COVID-19 ([facility]ON) (Negative) COVID-19 Clin Com Critical Care Time Critical Care Time Critical Care Time: No Discharge Plan Discharge Clinical Impression: Fall, Weakness, Effusion of left knee, Shortness of breath Patient Disposition: Admitted As Inpatient
[2022-09-03 22:39] VITALS: BP 149/78; PULSE 103; RESP 24; TEMP 36.6; O2SAT 100
[2022-09-03 23:31] LABS: Reflex Lactate? Lactic Acid Added
[2022-09-04] VITALS (10 sets, daily range): BP systolic 139–176; BP diastolic 65–86; PULSE 100–115; RESP 17–22; TEMP 36.4–37.2; O2SAT 96–100; BMI 40.8
[2022-09-04] LABS: Glucose, Whole Blood 164 mg/dL (60-115)
[2022-09-04 00:11] LABS: ~Lactic Acid-LAB USE ONLY 1.8 mmol/L (0.5-2.0)
--- NOTE | 2022-09-04 02:06 | ECG_ITS ---
Test Reason : WEALNESS Blood Pressure : / mmHG Vent. Rate : 102 BPM Atrial Rate : 102 BPM P-R Int : 146 ms QRS Dur : 088 ms QT Int : 356 ms P-R-T Axes : 058 041 047 degrees QTc Int : 463 ms Sinus tachycardia Otherwise normal ECG When compared with ECG of 27-APR-2022 09:29, No significant change was found Referred By: Viki Ellis Electronically Signed By:KAIDEN ARIZA MD
[2022-09-04] MEDS: iohexoL 350 MG/ML 100 ML INFUS..BTL IV (03:47)
--- NOTE | 2022-09-04 04:16 | PM.IMHP ---
History of Present Illness Date of Service: 09/04/22 Chief Complaint: Generalized weakness and shortness of breath This is a 62-year-old female with a pertinent history of infiltrating ductal carcinoma of left breast s/p chemotherapy, last received Neulasta on 09/02/2022, insulin-dependent diabetes mellitus, chronic opioid use due to back pain, COPD not on home oxygen, generalized anxiety disorder who presents to the emergency department for evaluation of generalized weakness and shortness of breath. Patient states she has been getting progressively weak since her 2nd cycle of chemotherapy. Patient last received Neulasta 1 day prior to coming to the ER and states her weakness worsened after receiving Neulasta. Patient experienced a mechanical fall at home due to lower extremity weakness and states she felt like she could not get up and walk up the stairs. States she has been having difficulty to take care of her and perform activities of daily living. Also has been having shortness of breath which worsened on the day of presentation and is associated with wheezing. Denies chest discomfort, fever, chills, nausea, vomiting, palpitations, abdominal pain, changes in urinary or bowel habits. Reports decreased p.o. intake lately. Also has been having bilateral lower extremity swelling (right greater than left) since initiation of chemotherapy. Recent duplex lower extremity scan was negative for DVT. Patient states she is unable to lay flat due to low back pain and ?dyspnea. Denies PND Review of Systems Review of Systems: All 13 review of systems are negative except as noted in HPI [facility] Medical History Adrenal adenoma Arthritis Cervical cancer screening COPD (chronic obstructive pulmonary disease) DCIS (ductal carcinoma in situ) Diabetes History of anal fissures History of palpitations History of unsteady gait Hx of renal calculi Hypercholesterolemia Hypertension Invasive ductal carcinoma of left breast Low back pain Mild heartburn Peripheral vascular disease Thyroid nodule Thyroid nodule Urinary incontinence Family History Mother History of breast cancer Father Prostate CA Brother No problems noted. Brother No problems noted. Daughter No problems noted. Surgical History History of appendectomy History of biopsy History of bladder surgery History of cholecystectomy History of endometrial ablation History of left knee replacement History of tonsillectomy Hx of tubal ligation Social History Household Members: Spouse and Children Housing: House Are you a primary memory care program director to a significant other at home: Yes (primary memory care program director for disabled , will have some assistance post-op) Do you presently have visiting nurse or other home services: No Alcohol intake: current Alcohol intake frequency: holidays/special occasions only Patient Tobacco Use Status: Current everyday Tobacco user Tobacco use type: Cigarette Cigarette Packs Per Day: 0.5 Cigarettes Per Day: 10 Years Smoked: 40+ e-Cigarette/Vaping Use: Never Used Second Hand Smoke Exposure: Yes Advance Directives: No Advance Directives Information Provided: No service: No Current occupational status: disabled Cognitive needs: No Hearing needs: No Vision needs: Yes Meds Allergies Allergy/AdvReac Type Severity Reaction Status Date / Time diclofenac [From Voltaren] Allergy Severe ENLARGED Verified 09/01/22 12:31 LIVER lisinopril [From Zestril] Allergy Severe FLUID IN Verified 09/01/22 12:31 LUNG oxybutynin [Oxybutynin] Allergy Severe BODY Verified 09/01/22 12:31 TWITCHING Penicillins [PENICILLINS] Allergy Intermediate Facial Verified 09/01/22 12:31 Swelling metformin AdvReac Intermediate Diarrhea Verified 09/01/22 13:28 Active Medications: Current Medications Pharmacy Consult (Consult Rx Perform Med Rec) 1 each MISCELLANE ONCE PRN PRN Reason: Consult order Home Medications Medication Instructions Recorded Confirmed Last Taken Type acetaminophen 325 mg capsule 325 mg PO QID PRN Pain 09/01/22 09/02/22 Unknown History Physical Exam Vital Signs and Narrative: Vital Signs: Last Vital Signs Temp 97.9 F 09/04/22 01:38 Pulse 103 H 09/04/22 01:38 Resp 18 09/04/22 01:38 BP 164/86 H 09/04/22 01:38 Pulse Ox 99 09/04/22 01:38 O2 Del Method 09/04/22 01:38 BMI result Body Mass Index 37.8 female lying in bed in no distress Neck supple Tachycardic with regular rhythm, S1-S2 heard Bilateral expiratory wheezes heard throughout lung field Abdomen soft nontender, no guarding, no rigidity Patient is awake, alert and oriented to self, place, time and person ; no focal motor deficit Psych: Normal mood Bilateral pedal edema Results Labs CBC and Chem 7: 09/03/22 20:44 09/03/22 20:44 Labs: Laboratory Results - last 24 hr 09/03/22 09/03/22 09/03/22 20:44 20:44 20:44 MCV 95.6 MCH 31.6 MCHC 33.0 RDW 18.6 H Plt Count 316 MPV 10.0 Immature Gran % (Auto) Cancelled Neut % (Auto) Cancelled Lymph % (Auto) Cancelled Garrett % (Auto) Cancelled Eos % (Auto) Cancelled Baso % (Auto) Cancelled Lymph # (Auto) Cancelled Garrett # (Auto) Cancelled Eos # (Auto) Cancelled Baso # (Auto) Cancelled Abs Immat Gran (auto) Cancelled Absolute Neuts (auto) Cancelled Absolute Nucleated RBC 0.000 Nucleated RBC % (auto) 0.0 Neutrophils % (Manual) 95 H Band Neutrophils % 1 L Monocytes % (Manual) 4 Abs Neuts (Manual) 44.1 H Monocytes # (Manual) 1.8 H Hypersegmented Neuts PRESENT Toxic Vacuolation PRESENT Platelet Estimate NORMAL Large Platelets PRESENT Plt Morphology Comment NOTED RBC Morphology NOTED Polychromasia 1+ (0-2) Macrocytosis 1+ (5-14) Schistocytes 1+ (0-2) Anion Gap 17 Estim Creat Clear Calc 111.2 Estimated GFR > 60 POC Glucose Random Glucose 208 H Lactic Acid Lactic Acid F/U @ 2Hr Calcium 9.1 Magnesium 1.9 Total Bilirubin 0.5 AST 19 D ALT 18 Alkaline Phosphatase 111 Troponin I High Sens < 3.5 B-Natriuretic Peptide 49 Total Protein 6.5 Albumin 3.8 Urine Color Urine Appearance Urine pH Ur Specific Colbert Urine Protein Urine Glucose (UA) Urine Ketones Urine Blood Urine Nitrite Ur Leukocyte Esterase Urine RBC Urine WBC Ur Squamous Epith Cells Urine Bacteria Hyaline Casts COVID-19 ([facility]) COVID-19 Clin Com 09/03/22 09/03/22 09/03/22 20:44 20:48 21:27 MCV MCH MCHC RDW Plt Count MPV Immature Gran % (Auto) Neut % (Auto) Lymph % (Auto) Garrett % (Auto) Eos % (Auto) Baso % (Auto) Lymph # (Auto) Garrett # (Auto) Eos # (Auto) Baso # (Auto) Abs Immat Gran (auto) Absolute Neuts (auto) Absolute Nucleated RBC Nucleated RBC % (auto) Neutrophils % (Manual) Band Neutrophils % Monocytes % (Manual) Abs Neuts (Manual) Monocytes # (Manual) Hypersegmented Neuts Toxic Vacuolation Platelet Estimate Large Platelets Plt Morphology Comment RBC Morphology Polychromasia Macrocytosis Schistocytes Anion Gap Estim Creat Clear Calc Estimated GFR POC Glucose Random Glucose Lactic Acid 2.9 H* Lactic Acid F/U @ 2Hr Calcium Magnesium Total Bilirubin AST ALT Alkaline Phosphatase Troponin I High Sens B-Natriuretic Peptide Total Protein Albumin Urine Color Yellow Urine Appearance Clear Urine pH 6.0 Ur Specific Colbert <= 1.005 Urine Protein Negative Urine Glucose (UA) Negative Urine Ketones Negative Urine Blood Negative Urine Nitrite Negative Ur Leukocyte Esterase Trace H Urine RBC 0-2 Urine WBC 0-5 Ur Squamous Epith Cells 0-2 Urine Bacteria None Seen Hyaline Casts 0-2 COVID-19 ([facility]) Negative COVID-19 Clin Com See Note 09/03/22 09/03/22 23:54 23:56 MCV MCH MCHC RDW Plt Count MPV Immature Gran % (Auto) Neut % (Auto) Lymph % (Auto) Garrett % (Auto) Eos % (Auto) Baso % (Auto) Lymph # (Auto) Garrett # (Auto) Eos # (Auto) Baso # (Auto) Abs Immat Gran (auto) Absolute Neuts (auto) Absolute Nucleated RBC Nucleated RBC % (auto) Neutrophils % (Manual) Band Neutrophils % Monocytes % (Manual) Abs Neuts (Manual) Monocytes # (Manual) Hypersegmented Neuts Toxic Vacuolation Platelet Estimate Large Platelets Plt Morphology Comment RBC Morphology Polychromasia Macrocytosis Schistocytes Anion Gap Estim Creat Clear Calc Estimated GFR POC Glucose 164 H Random Glucose Lactic Acid Lactic Acid F/U @ 2Hr 1.8 Calcium Magnesium Total Bilirubin AST ALT Alkaline Phosphatase Troponin I High Sens B-Natriuretic Peptide Total Protein Albumin Urine Color Urine Appearance Urine pH Ur Specific Colbert Urine Protein Urine Glucose (UA) Urine Ketones Urine Blood Urine Nitrite Ur Leukocyte Esterase Urine RBC Urine WBC Ur Squamous Epith Cells Urine Bacteria Hyaline Casts COVID-19 ([facility]) COVID-19 Clin Com Imaging Radiologist's Impressions: Impressions Chest X-Ray 09/03/22 20:10 IMPRESSION: No acute abnormality of chest. Cervical Spine CT 09/03/22 22:10 IMPRESSION: No acute intracranial pathology. No fracture subluxation cervical spine. EXAMINATION: LOWER EXTREMITY VENOUS ULTRASOUND CLINICAL INFORMATION: Pain COMPARISON: None. TECHNIQUE: Doppler spectral analysis and color flow Doppler imaging was performed of the lower extremity. Compression and augmentation maneuvers were performed. FINDINGS: The right common femoral, femoral, popliteal veins were well-identified and normal. They demonstrate normal compressibility and color fill-in without evidence of venous thrombosis. ADDITIONAL FINDINGS: None. IMPRESSION: No evidence for right lower extremity deep vein thrombosis. Head CT 09/03/22 22:10 IMPRESSION: No acute intracranial pathology. No fracture subluxation cervical spine. EXAMINATION: LOWER EXTREMITY VENOUS ULTRASOUND CLINICAL INFORMATION: Pain COMPARISON: None. TECHNIQUE: Doppler spectral analysis and color flow Doppler imaging was performed of the lower extremity. Compression and augmentation maneuvers were performed. FINDINGS: The right common femoral, femoral, popliteal veins were well-identified and normal. They demonstrate normal compressibility and color fill-in without evidence of venous thrombosis. ADDITIONAL FINDINGS: None. IMPRESSION: No evidence for right lower extremity deep vein thrombosis. Knee X-Ray 09/04/22 00:05 FINDINGS/IMPRESSION: * No acute fracture or dislocation. * Moderate tricompartmental degenerative changes of the knee with loss of joint space and osteophytosis and medial subluxation of the femur with respect to the tibia. No suprapatellar effusion. * Diffuse subcutaneous edema. Knee X-Ray 09/04/22 00:05 FINDINGS/IMPRESSION: * No acute fracture or dislocation. * Status post total knee arthroplasty. No evidence of hardware fracture or complication. * Small suprapatellar joint effusion. Diffuse subcutaneous edema. Assessment and Plan (1) COPD exacerbation: Status: Acute (2) Weakness: Status: Acute (3) Type 2 diabetes mellitus with hyperglycemia: Status: Acute (4) Generalized anxiety disorder: Status: Acute (5) Invasive ductal carcinoma of left breast: Status: Acute (6) Leg swelling: Status: Acute Plan This is a 62-year-old female with a pertinent history of infiltrating ductal carcinoma of left breast s/p chemotherapy, last received Neulasta on 09/02/2022, insulin-dependent diabetes mellitus, chronic opioid use due to back pain, COPD not on home oxygen, generalized anxiety disorder who presents to the emergency department for evaluation of generalized weakness and shortness of breath. #. Acute dyspnea due to COPD exacerbation -initiate DuoNebs every 4 hours scheduled and p.r.n.. Also initiating prednisone 40 mg daily and azithromycin. Continue home inhaler #. Generalized weakness -progressive likely in the setting of chemotherapy. Consult PT/OT to evaluate and treat for safe disposition as patient is unable to climb home stairs and unable to perform activities of daily living #. Insulin-dependent type 2 diabetes mellitus with hyperglycemia -initiate Accu-Cheks with sliding scale insulin before meals and at bedtime. Reduce home basal regimen while in the hospital #. Bilateral leg swelling -with ?orthopnea. Obtaining transthoracic echocardiogram to look for pulmonary hypertension and ventricular function. Duplex lower extremity negative for DVT. #. Generalized anxiety disorder -on paroxetine #. Leukocytosis -due to recent Neulasta administration DVT prophylaxis: Lovenox 40 mg daily Full code Diet: Diabetic diet Patient will require two night minimum hospital stay for management of COPD exacerbation and evaluation of generalized weakness by physical therapy for safe disposition. Quality Stroke Does the patient have a stroke diagnosis?: No VTE Prior VTE?: No VTE Risk Level:: Medical - moderate - high VTE Device Contraindication: Treatment Not Indicated VTE Drug Contraindication: N/A - Med Ordered
[2022-09-04] MEDS: Insulin Glargine,Hum.rec.anlog 100 UNIT/ML 10 ML VIAL 15 UNIT SUBCUT (05:12)
[2022-09-04] MEDS: predniSONE 20 MG TABLET 40 MG PO ×2 (05:13→08:32)
[2022-09-04] MEDS: Enoxaparin Sodium 40 MG/0.4 ML SYRINGE SUBCUT (05:13)
[2022-09-04 07:48] LABS: Glucose, Whole Blood 135 mg/dL (60-115)
[2022-09-04 08:05] LABS: Hematocrit 31.5 % (37.0-47.0); Hemoglobin 10.4 g/dl (12.0-16.0); Mean Corpuscular Hemoglobin 31.7 pg (27.0-33.0); Mean Platelet Volume 9.9 fL (9.4-12.3); Platelet Count 245 X10*3/uL (160-400); Red Blood Count 3.28 X10*6/uL (4.20-5.50); Red Cell Distribution Width 18.7 % (11.0-16.0)
[2022-09-04 08:14] LABS: Estimated Average Glucose 137 mg/dL; Hemoglobin A1c % 6.4 %
[2022-09-04 08:17] LABS: Anion Gap 15 (12-20); Blood Urea Nitrogen 15 mg/dL (9-16); Calcium 8.7 mg/dL (8.4-10.2); Carbon Dioxide 20 mmol/L (22-29); Chloride 106 mmol/L (96-108); Creatinine Clr Calc Pharmacy 131.2; Estimated Glomerular Filt Rate > 60; Glucose Random 136 mg/dL (60-115); Potassium 4.1 mmol/L (3.3-5.1); Sodium 137 mmol/L (135-145)
[2022-09-04] MEDS: Albuterol/Iprat 2.5/0.5MG 3 ML AMPUL.NEB INHALE ×3 (08:24→16:21)
[2022-09-04 08:27] LABS: WBC ABN SCTR FOR CBC 1
[2022-09-04 08:28] LABS: White Blood Count 79.2 X10*3/uL (4.8-10.8)
[2022-09-04 08:30] LABS: Band Neutrophils Percent 2 % (3-5); Lymphocytes Absolute Manual 0.8 X10*3/uL (1.2-4.9); Lymphocytes Percent Manual 1 % (20-40); Neutrophils Absolute Manual 78.4 X10*3/uL (2.0-8.3); Neutrophils Percent Manual 97 % (45-73)
[2022-09-04 08:32] LABS: Hypersegmented Neutrophils PRESENT; Macrocytosis 1+ (5-14) /OIF; RBC Morphology NOTED
[2022-09-04] MEDS: PARoxetine HCL 20 MG TABLET PO (08:32)
[2022-09-04] MEDS: 0.9 % Sodium Chloride Flush 3 ML SYRINGE IVFLUSH ×2 (08:32→15:36)
[2022-09-04 08:33] LABS: Platelet Estimate NORMAL (NORMAL); Platelet Morphology Comment NORMAL; Smudge Cells PRESENT
--- NOTE | 2022-09-04 10:16 | PHA.MEDREC ---
Pharmacy Consult ? Medication Reconciliation Pharmacy has completed the medication reconciliation. Spoke with patient and daughter Henna via patient's phone to confirm meds. Cross-referenced with claim history.
[2022-09-04] MEDS: Azithromycin 500 MG in 0.9 % Sodium Chloride 250 ML 125 MG IV (10:23)
--- NOTE | 2022-09-04 11:06 | MHC.CM.PN ---
Addendum entered by Calli Perez 09/04/22 11:59: PT DECLINES STR REC. BY PT. WILL CONTINUE TO FOLLOW SHOULD PLAN CHANGE. 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 USES WALKER WITH WHEELS AND SEAT, HAS [employer] SERVICES NEEDED. 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 PCP DR. PATEL AT [facility] [place]. PT IS OPEN TO [facility] REFERRAL FOR HOME PT/OT SHOULD SHE QUALIFY. REQUESTS REFERRAL TO [facility]. CM WILL FOLLOW DP: PT REQUESTS BLS TRANSPORT HOME SHE HAS DIFFICULTY WITH STAIRS.
[2022-09-04 11:34] LABS: Glucose, Whole Blood 239 mg/dL (60-115)
[2022-09-04] MEDS: Acetaminophen 325 MG TABLET 650 MG PO (12:12)
[2022-09-04] MEDS: Insulin Lispro 100 UNIT/ML 3 ML VIAL SUBCUT (12:13)
[2022-09-04] MEDS: ondansetron HCL 4 MG/2 ML VIAL IVPUSH (12:15)
--- NOTE | 2022-09-04 13:37 | P.F2F_ITS ---
Service Date Service Date: 09/04/22 Encounter Date of encounter: 09/04/22 Reasons for Services Signs and symptoms assessed: Generalized weakness, bilateral leg swelling, shortness of breath with activity Reason for group home: diabetic teaching, medication management and teach disease management Reason for physical therapy: home safety and mobility Homebound: Leaving the home is medically contraindicated at this time without the asist of a device and/or another person due th the listed conditions above and below. Reason homebound: unsteady gait / fall risk Certification: Based on the above findings, I certify that this patient is confined to the home and needs intermittent group home care, physical therapy and/or speech therapy, or continues to need occupational therapy. The patient is under my care, and I have initiated the establishment of the plan of care. The patient will be followed by a physician who will periodically review the plan of care.
--- NOTE | 2022-09-04 13:40 | PM.DS ---
DS: Providers Provider Date of Service: 09/04/22 Date of admission: 09/04/22 04:16 Primary care physician: Concepción Reyes MD DS: Diagnosis Discharge Diagnosis (1) COPD exacerbation: Status: Acute (2) Weakness: Status: Acute (3) Type 2 diabetes mellitus with hyperglycemia: Status: Acute (4) Generalized anxiety disorder: Status: Acute (5) Invasive ductal carcinoma of left breast: Status: Acute (6) Leg swelling: Status: Acute DS: Summary Hospital Course Hospital Course: History of presenting illness Date of Service: 09/04/22 Chief Complaint: Generalized weakness and shortness of breath This is a 62-year-old female with a pertinent history of infiltrating ductal carcinoma of left breast s/p chemotherapy, last received Neulasta on 09/02/2022, insulin-dependent diabetes mellitus, chronic opioid use due to back pain, COPD not on home oxygen, generalized anxiety disorder who presents to the emergency department for evaluation of generalized weakness and shortness of breath.? Patient states she has been getting progressively weak since her 2nd cycle of chemotherapy.? Patient last received Neulasta 1 day prior to coming to the ER and states her weakness worsened after receiving Neulasta.? Patient experienced a mechanical fall at home due to lower extremity weakness and states she felt like she could not get up and walk up the stairs.? States she has been having difficulty to take care of her and perform activities of daily living.? Also has been having shortness of breath which worsened on the day of presentation and is associated with wheezing.? Denies chest discomfort, fever, chills, nausea, vomiting, palpitations, abdominal pain, changes in urinary or bowel habits.? Reports decreased p.o. intake lately.? Also has been having bilateral lower extremity swelling (right greater than left) since initiation of chemotherapy.? Recent duplex lower extremity scan was negative for DVT.? Patient states she is unable to lay flat due to low back pain and ?dyspnea.? Denies PND Hospital course 62-year-old female with a pertinent history of infiltrating ductal carcinoma of left breast s/p chemotherapy, last received Neulasta on 09/02/2022, insulin-dependent diabetes mellitus, chronic opioid use due to back pain, COPD not on home oxygen, generalized anxiety disorder who presents to the emergency department for evaluation of generalized weakness and shortness of breath. #.? Acute dyspnea due to mild COPD exacerbation, patient shortness of breath improved overnight, will discharge her home on as needed albuterol recommend to resume and anoro Ellipta will discharge home on 4 more days of low-dose prednisone. #.? Generalized weakness,-progressive likely in the setting of breast cancer receiving chemotherapy patient seen by physical therapy they recommend short-term rehab however patient declined rehab and wishes to be discharged home with VNA and PT services porter sample case arrange for home PT.? #.? Insulin-dependent type 2 diabetes mellitus with hyperglycemia recommend to continue home insulin strongly recommend to follow ADA low-calorie diet #.? Bilateral leg swelling likely multifactorial due to Norvasc, venous insufficiency and use of prednisone had a recent echocardiogram done in May 2022 that showed normal EF 55-60 % normal diastolic function, normal right ventricular cavity and systolic function, and normal pulmonary valve,? Duplex lower extremity negative for DVT. Norvasc discontinued recommended weight reduction, Jj wrap and to keep leg elevated #.? Generalized anxiety disorder, continue paroxetine #.? Leukocytosis -due to recent Neulasta administration and prednisone # morbid obesity recommended low-calorie diet likely contributing to other comorbidities Time Spent with Patient Time attestation: Total time spent providing and/or coordinating discharge services: Discharge coordination time: Greater than 30 minutes Quality: Safe Use of Opioids Does Pt have an Active Cancer Diagnosis on the Problem List?: No Quality: Stroke Does the patient have a stroke diagnosis?: No Physical Exam Vital Signs: Vital Signs: Last Vital Signs Temp 98.1 F 09/04/22 11:49 Pulse 108 H 09/04/22 12:06 Resp 18 09/04/22 12:06 BP 164/82 H 09/04/22 11:49 Pulse Ox 97 09/04/22 11:49 O2 Del Method 09/04/22 11:49 BMI result Body Mass Index 40.8 Const: Other: General awake alert sitting comfortably in no acute distress? Neck supple, no JVD Cardiovascular mild tachycardia regular rate rhythm Lungs no expiratory rhonchi or wheeze, coarse breath sound bilaterally Abdomen soft nontender, bowel sounds audible, no guarding, no rigidity Neuro nonfocal Psych: Normal mood Extremities nonpitting edema DS: Data Data Completed and Pending Labs on day of discharge: Laboratory Results - last 24 hr 09/03/22 09/03/22 09/03/22 20:44 20:44 20:44 WBC 45.9 H* RBC 3.67 L Hgb 11.6 L Hct 35.1 L MCV 95.6 MCH 31.6 MCHC 33.0 RDW 18.6 H Plt Count 316 MPV 10.0 Immature Gran % (Auto) Cancelled Neut % (Auto) Cancelled Lymph % (Auto) Cancelled [place] % (Auto) Cancelled Eos % (Auto) Cancelled Baso % (Auto) Cancelled Lymph # (Auto) Cancelled [place] # (Auto) Cancelled Eos # (Auto) Cancelled Baso # (Auto) Cancelled Abs Immat Gran (auto) Cancelled Absolute Neuts (auto) Cancelled Absolute Nucleated RBC 0.000 Nucleated RBC % (auto) 0.0 Neutrophils % (Manual) 95 H Band Neutrophils % 1 L Lymphocytes % (Manual) Monocytes % (Manual) 4 Abs Neuts (Manual) 44.1 H Lymphocytes # (Manual) Monocytes # (Manual) 1.8 H Hypersegmented Neuts PRESENT Smudge Cells Toxic Vacuolation PRESENT Platelet Estimate NORMAL Large Platelets PRESENT Plt Morphology Comment NOTED RBC Morphology NOTED Polychromasia 1+ (0-2) Macrocytosis 1+ (5-14) Schistocytes 1+ (0-2) Sodium 136 Potassium 4.9 D Chloride 103 Carbon Dioxide 21 L Anion Gap 17 BUN 17 H Creatinine 0.61 Estim Creat Clear Calc 111.2 Estimated GFR > 60 POC Glucose Random Glucose 208 H Estimat Average Glucose Hemoglobin A1c % Lactic Acid Lactic Acid F/U @ 2Hr Calcium 9.1 Magnesium 1.9 Total Bilirubin 0.5 AST 19 D ALT 18 Alkaline Phosphatase 111 Troponin I High Sens < 3.5 B-Natriuretic Peptide 49 Total Protein 6.5 Albumin 3.8 Urine Color Urine Appearance Urine pH Ur Specific [place] Urine Protein Urine Glucose (UA) Urine Ketones Urine Blood Urine Nitrite Ur Leukocyte Esterase Urine RBC Urine WBC Ur Squamous Epith Cells Urine Bacteria Hyaline Casts COVID-19 ([facility]) COVID-19 Clin Com 09/03/22 09/03/22 09/03/22 20:44 20:48 21:27 WBC RBC Hgb Hct MCV MCH MCHC RDW Plt Count MPV Immature Gran % (Auto) Neut % (Auto) Lymph % (Auto) [place] % (Auto) Eos % (Auto) Baso % (Auto) Lymph # (Auto) [place] # (Auto) Eos # (Auto) Baso # (Auto) Abs Immat Gran (auto) Absolute Neuts (auto) Absolute Nucleated RBC Nucleated RBC % (auto) Neutrophils % (Manual) Band Neutrophils % Lymphocytes % (Manual) Monocytes % (Manual) Abs Neuts (Manual) Lymphocytes # (Manual) Monocytes # (Manual) Hypersegmented Neuts Smudge Cells Toxic Vacuolation Platelet Estimate Large Platelets Plt Morphology Comment RBC Morphology Polychromasia Macrocytosis Schistocytes Sodium Potassium Chloride Carbon Dioxide Anion Gap BUN Creatinine Estim Creat Clear Calc Estimated GFR POC Glucose Random Glucose Estimat Average Glucose Hemoglobin A1c % Lactic Acid 2.9 H* Lactic Acid F/U @ 2Hr Calcium Magnesium Total Bilirubin AST ALT Alkaline Phosphatase Troponin I High Sens B-Natriuretic Peptide Total Protein Albumin Urine Color Yellow Urine Appearance Clear Urine pH 6.0 Ur Specific [place] <= 1.005 Urine Protein Negative Urine Glucose (UA) Negative Urine Ketones Negative Urine Blood Negative Urine Nitrite Negative Ur Leukocyte Esterase Trace H Urine RBC 0-2 Urine WBC 0-5 Ur Squamous Epith Cells 0-2 Urine Bacteria None Seen Hyaline Casts 0-2 COVID-19 ([facility]) Negative COVID-19 Clin Com See Note 09/03/22 09/03/22 09/04/22 23:54 23:56 07:39 WBC RBC Hgb Hct MCV MCH MCHC RDW Plt Count MPV Immature Gran % (Auto) Neut % (Auto) Lymph % (Auto) [place] % (Auto) Eos % (Auto) Baso % (Auto) Lymph # (Auto) [place] # (Auto) Eos # (Auto) Baso # (Auto) Abs Immat Gran (auto) Absolute Neuts (auto) Absolute Nucleated RBC Nucleated RBC % (auto) Neutrophils % (Manual) Band Neutrophils % Lymphocytes % (Manual) Monocytes % (Manual) Abs Neuts (Manual) Lymphocytes # (Manual) Monocytes # (Manual) Hypersegmented Neuts Smudge Cells Toxic Vacuolation Platelet Estimate Large Platelets Plt Morphology Comment RBC Morphology Polychromasia Macrocytosis Schistocytes Sodium Potassium Chloride Carbon Dioxide Anion Gap BUN Creatinine Estim Creat Clear Calc Estimated GFR POC Glucose 164 H 135 H Random Glucose Estimat Average Glucose Hemoglobin A1c % Lactic Acid Lactic Acid F/U @ 2Hr 1.8 Calcium Magnesium Total Bilirubin AST ALT Alkaline Phosphatase Troponin I High Sens B-Natriuretic Peptide Total Protein Albumin Urine Color Urine Appearance Urine pH Ur Specific [place] Urine Protein Urine Glucose (UA) Urine Ketones Urine Blood Urine Nitrite Ur Leukocyte Esterase Urine RBC Urine WBC Ur Squamous Epith Cells Urine Bacteria Hyaline Casts COVID-19 ([facility]) COVID-19 [employer] Com 09/04/22 09/04/22 09/04/22 07:54 07:55 07:55 WBC 79.2 H* RBC 3.28 L Hgb 10.4 L Hct 31.5 L MCV 96.0 MCH 31.7 MCHC 33.0 RDW 18.7 H Plt Count 245 MPV 9.9 Immature Gran % (Auto) Cancelled Neut % (Auto) Cancelled Lymph % (Auto) Cancelled [place] % (Auto) Cancelled Eos % (Auto) Cancelled Baso % (Auto) Cancelled Lymph # (Auto) Cancelled [place] # (Auto) Cancelled Eos # (Auto) Cancelled Baso # (Auto) Cancelled Abs Immat Gran (auto) Cancelled Absolute Neuts (auto) Cancelled Absolute Nucleated RBC 0.000 Nucleated RBC % (auto) 0.0 Neutrophils % (Manual) 97 H Band Neutrophils % 2 L Lymphocytes % (Manual) 1 L Monocytes % (Manual) Abs Neuts (Manual) 78.4 H Lymphocytes # (Manual) 0.8 L Monocytes # (Manual) Hypersegmented Neuts PRESENT Smudge Cells PRESENT Toxic Vacuolation Platelet Estimate NORMAL Large Platelets Plt Morphology Comment NORMAL RBC Morphology NOTED Polychromasia Macrocytosis 1+ (5-14) Schistocytes Sodium 137 Potassium 4.1 Chloride 106 Carbon Dioxide 20 L Anion Gap 15 BUN 15 Creatinine 0.54 Estim Creat Clear Calc 131.2 Estimated GFR > 60 POC Glucose Random Glucose 136 H Estimat Average Glucose 137 Hemoglobin A1c % 6.4 Lactic Acid Lactic Acid F/U @ 2Hr Calcium 8.7 Magnesium Total Bilirubin AST ALT Alkaline Phosphatase Troponin I High Sens B-Natriuretic Peptide Total Protein Albumin Urine Color Urine Appearance Urine pH Ur Specific [place] Urine Protein Urine Glucose (UA) Urine Ketones Urine Blood Urine Nitrite Ur Leukocyte Esterase Urine RBC Urine WBC Ur Squamous Epith Cells Urine Bacteria Hyaline Casts COVID-19 ([facility]) COVID-19 Clin Com 09/04/22 11:27 WBC RBC Hgb Hct MCV MCH MCHC RDW Plt Count MPV Immature Gran % (Auto) Neut % (Auto) Lymph % (Auto) [place] % (Auto) Eos % (Auto) Baso % (Auto) Lymph # (Auto) [place] # (Auto) Eos # (Auto) Baso # (Auto) Abs Immat Gran (auto) Absolute Neuts (auto) Absolute Nucleated RBC Nucleated RBC % (auto) Neutrophils % (Manual) Band Neutrophils % Lymphocytes % (Manual) Monocytes % (Manual) Abs Neuts (Manual) Lymphocytes # (Manual) Monocytes # (Manual) Hypersegmented Neuts Smudge Cells Toxic Vacuolation Platelet Estimate Large Platelets Plt Morphology Comment RBC Morphology Polychromasia Macrocytosis Schistocytes Sodium Potassium Chloride Carbon Dioxide Anion Gap BUN Creatinine Estim Creat Clear Calc Estimated GFR POC Glucose 239 H Random Glucose Estimat Average Glucose Hemoglobin A1c % Lactic Acid Lactic Acid F/U @ 2Hr Calcium Magnesium Total Bilirubin AST ALT Alkaline Phosphatase Troponin I High Sens B-Natriuretic Peptide Total Protein Albumin Urine Color Urine Appearance Urine pH Ur Specific [place] Urine Protein Urine Glucose (UA) Urine Ketones Urine Blood Urine Nitrite Ur Leukocyte Esterase Urine RBC Urine WBC Ur Squamous Epith Cells Urine Bacteria Hyaline Casts COVID-19 ([facility]) COVID-19 Clin Com Discharge Plan Discharge Anticipated Discharge Date/Time: 09/04/22 13:33 Patient Disposition: Home Health Service Discharge Diagnosis: Mild COPD exacerbation Generalized weakness Bilateral leg swelling Leukocytosis Referrals: Po,Concepción Browne MD [Primary Care Provider] - 1 Week Discharge Medications: New prednisone 10 mg tablet 10 mg PO DAILY Qty: 4 0RF valsartan 40 mg tablet 40 mg PO BID Qty: 60 0RF Continued aspirin [Adult Aspirin Regimen] 81 mg tablet,delayed release (DR/EC) 81 mg PO DAILY 90 Days Qty: 90 3RF (DME) pen needle, diabetic [BD Ultra-Fine Micro Pen Needle] 32 gauge x 1/4 needle See Rx Instructions miscellaneous .MEDSUPPLY Qty: 100 2RF Rx Instructions: as directed with insulin (DME) blood-glucose meter [FreeStyle Lite Meter] Kit See Rx Instructions .ROUTE .MEDSUPPLY Qty: 1 0RF Rx Instructions: As directed (DME) lancets [FreeStyle Lancets] 28 gauge misc See Rx Instructions .Route Qty: 100 3RF Rx Instructions: check BS 3x/day (DME) FreeStyle Vinnie 14 Day Sensor Kit See Rx Instructions .ROUTE .MEDSUPPLY Qty: 6 3RF Rx Instructions: As directed (DME) FreeStyle Vinnie 14 Day [place] Misc See Rx Instructions .ROUTE .MEDSUPPLY Qty: 2 0RF Rx Instructions: As directed solifenacin [Vesicare] 5 mg tablet 5 mg PO DAILY Qty: 90 0RF ropinirole 1 mg tablet 1 mg PO BID Qty: 180 0RF cholecalciferol (vitamin D3) 50 mcg (2,000 unit) capsule 50 mcg PO DAILY Qty: 90 2RF insulin aspart U-100 [Novolog Flexpen U-100 Insulin] 100 unit/mL (3 mL) insulin pen 10 unit subcut TID Qty: 15 4RF (DME) FreeStyle Lite Strips Strip See Rx Instructions .ROUTE .MEDSUPPLY Qty: 100 3RF Rx Instructions: check BS 3X/DAY clonidine HCl 0.1 mg tablet 0.1 mg PO BEDTIME Qty: 90 0RF insulin glargine [Lantus Solostar U-100 Insulin] 100 unit/mL (3 mL) insulin pen 20 unit subcut DAILY Qty: 15 3RF paroxetine HCl 20 mg tablet 20 mg PO DAILY 90 Days Qty: 90 1RF triamcinolone acetonide 0.1 % cream 1 appl topical DAILY Rx Instructions: apply to affected area cyanocobalamin (vitamin B-12) 1,000 mcg Tablet 1,000 mcg PO DAILY ascorbic acid (vitamin C) [Vitamin C] 500 mg Tablet 500 mg PO DAILY ferrous sulfate [Iron (ferrous sulfate)] 325 mg (65 mg iron) Tablet 325 mg PO FR@0900 zinc gluconate 50 mg Tablet 50 mg PO DAILY ondansetron 8 mg Tablet,Disintegrating 8 mg PO Q8H Qty: 50 6RF oxycodone 5 mg Tablet 5 mg PO Q8H PRN (Reason: Breakthrough Pain, Mild) Qty: 30 0RF Rx Instructions: Partial Fill upon patient request. acetaminophen 325 mg capsule 325 mg PO QID PRN (Reason: Pain) albuterol sulfate [Ventolin HFA] 90 mcg/actuation HFA aerosol inhaler 1 puff inhalation QID Qty: 8.5 0RF albuterol sulfate 2.5 mg /3 mL (0.083 %) solution for nebulization 2.5 mg inhalation Q4-6H PRN (Reason: Shortness Of Breath Or Wheezing) Qty: 180 1RF Anoro Ellipta 62.5-25 mcg/actuation blister with device 1 inh inhalation DAILY Qty: 60 3RF (DME) compress.stocking,knee,reg,lrg Misc See Rx Instructions .Route Qty: 12 0RF Rx Instructions: As directed 20-30 mm HG glipizide 10 mg tablet 10 mg PO BID 90 Days Qty: 180 1RF Discontinued amlodipine 5 mg tablet 5 mg PO BID 90 Days Qty: 180 2RF Discharge Orders: Discharge Order (Routine); Ordered 09/04/22 Ordered By: Colby Merino Diet: Diabetic diet Activity on Discharge: As tolerated Stand Alone Forms: Patient Portal Discharge page Care Plan Goals: Bilateral leg swelling likely multifactorial due to Norvasc, prednisone and venous insufficiency recommended to stop Norvasc placed on valsartan, wean prednisone recommend to use Jj wrap lower extremities, keep leg elevated, weight reduction recommended Follow-up with Dr. Mitchell in regard to leukocytosis likely due to prednisone and Neulasta, no acute infection noted Patient seen by physical therapy they recommended short-term rehab however patient declined and wishes to be discharged home with PT and VNA services. Health Concerns: Continue all home medications as before Plan of Treatment: Outpatient follow-up with Dr. Mitchell early next week follow up CBC Assessment: As above
--- NOTE | 2022-09-04 14:20 | MHC.CM.PN ---
DP: PT MEDICALLY CLEARED FOR DC HME TODAY WITH NEW [facility] FOR NURSING AND PT SERVICES. [employer] ARIANE Renner MADE AWARE AND WILL SEND AUTH REQUEST FOR SERVICES FOR SN AND PT. REFERENCE #: [id number] RN AWARE AND [facility] NOTIFIED OF TODAY'S DC TRANSPORT WITH [facility] BOOKED FOR 4 PM.
[2022-09-04] MEDS: Valsartan 40 MG TABLET PO (14:37)
[2022-09-04 15:57] LABS: Glucose, Whole Blood 228 mg/dL (60-115)
== END 2022-09-04 17:07 | disposition home health service (06) | DRG 191 ==
LOC: HO.ED 09-04 02:07 → HO.EDOVER 09-04 04:31 → HO.S3 09-04 05:21
PROVIDERS: Physician Assistant; Admitting Provider Student in an Organized Health Care Education/Training Program; Emergency Provider Emergency Medicine Emergency Medical Services; PCP Internal Medicine; Visit Provider Hospitalist
DX: J44.1 Chronic obstructive pulmonary disease with (acute) exacerbation (principal); E87.20 Acidosis, unspecified; M19.90 Unspecified osteoarthritis, unspecified site; Z96.652 Presence of left artificial knee joint; D05.10 Intraductal carcinoma in situ of unspecified breast; F17.210 Nicotine dependence, cigarettes, uncomplicated; D72.829 Elevated white blood cell count, unspecified; E11.65 Type 2 diabetes mellitus with hyperglycemia; I87.2 Venous insufficiency (chronic) (peripheral); T45.8X5A Adverse effect of other primarily systemic and hematological agents, initial encounter; F41.1 Generalized anxiety disorder; Z20.822 Contact with and (suspected) exposure to COVID-19; Z71.6 Tobacco abuse counseling; Z88.0 Allergy status to penicillin; Z88.8 Allergy status to other drugs, medicaments and biological substances; Z79.4 Long term (current) use of insulin; Z79.82 Long term (current) use of aspirin; Z79.899 Other long term (current) drug therapy
CPT/HCPCS: 36415; 70450; 71045; 71275; 72125; 73564; 74177; 80048; 80053; 81001; 81003; 82947; 83036; 83605; 83735; 83880; 84484; 85007; 85025; 85027; 87040; 87635; 93005; 94640; 97162; 99285; J0456; J1650; J1956; J2405; Q9967

== ENCOUNTER → 2022-09-16 10:47 | Outpatient (BNVA) | payer OTHER, SELFPAY | PROVIDERS: PCP Internal Medicine; Visit Provider Dietitian, Registered | DX: E11.65 Type 2 diabetes mellitus with hyperglycemia (principal); Z71.3 Dietary counseling and surveillance | CPT/HCPCS: 97803 ==

== ENCOUNTER → 2022-10-07 13:24 | Outpatient (BNVA) | payer OTHER, SELFPAY | PROVIDERS: PCP Internal Medicine; Visit Provider Surgery | DX: C50.912 Malignant neoplasm of unspecified site of left female breast (principal); Z80.42 Family history of malignant neoplasm of prostate | CPT/HCPCS: 99212 ==

== ENCOUNTER 2022-10-18 | Outpatient (REF) | payer OTHER, SELFPAY ==
[2022-10-18 08:51] LABS: Basophils Absolute Auto 0.1 X10*3/uL (0.0-0.2); Basophils Percent Auto 0.9 % (0-2); Eosinophils Absolute Auto 0.6 X10*3/uL (0.0-0.4); Eosinophils Percent Auto 4.4 % (0-4); Hematocrit 42.1 % (37.0-47.0); Hemoglobin 13.3 g/dl (12.0-16.0); Imm Gran Abs Auto 0.06 X10*3/uL (0.00-0.03); Imm Gran Pct Auto 0.5 % (0.0-0.4); Lymphocytes Absolute Auto 2.1 X10*3/uL (1.2-4.9); Lymphocytes Percent Auto 16.5 % (20-40); MANUAL DIFF FLAG NO; Mean Corpuscular HGB Conc 31.6 g/dl (31.0-35.0); Mean Corpuscular Hemoglobin 30.6 pg (27.0-33.0); Mean Platelet Volume 9.5 fL (9.4-12.3); Monocytes Absolute Auto 1.2 X10*3/uL (0.1-1.2); Monocytes Percent Auto 9.6 % (2-11); Neutrophils Absolute Auto 8.6 x10*3/uL (2.0-8.3); Neutrophils Percent Auto 68.1 % (45-73); Platelet Count 329 X10*3/uL (160-400); Red Blood Count 4.34 X10*6/uL (4.20-5.50); Red Cell Distribution Width 17.4 % (11.0-16.0); White Blood Count 12.6 X10*3/uL (4.8-10.8)
[2022-10-18 09:53] LABS: Alanine Aminotransferase 13 U/L (0-31); Albumin Level 3.7 g/dL (3.5-5.0); Alkaline Phosphatase 108 U/L (39-117); Anion Gap 14 (12-20); Aspartate Amino Transferase 11 U/L (5-31); Bilirubin Total 0.3 mg/dL (0.0-1.0); Blood Urea Nitrogen 15 mg/dL (9-16); Calcium 9.6 mg/dL (8.4-10.2); Carbon Dioxide 22 mmol/L (22-29); Chloride 105 mmol/L (96-108); Estimated Glomerular Filt Rate > 60; Glucose Random 177 mg/dL (60-115); Potassium 4.3 mmol/L (3.3-5.1); Sodium 137 mmol/L (135-145); Total Protein 6.6 g/dL (6.5-8.0)
== END 2022-10-18 00:01 | disposition home or self-care (01) ==
LOC: HO.LAB
PROVIDERS: Visit Provider Internal Medicine Medical Oncology
DX: C50.919 Malignant neoplasm of unspecified site of unspecified female breast (principal)
CPT/HCPCS: 36415; 80053; 85025

== ENCOUNTER → 2022-11-11 13:04 | Outpatient (REF) | payer OTHER, SELFPAY ==
--- NOTE | ~2022-11-11 | US_ITS ---
EXAMINATION: MM DIAGNOSTIC DIGITAL BREAST TOMOSYNTHESIS, LEFT US DIAGNOSTIC ULTRASOUND BREAST, LEFT CLINICAL INFORMATION: 62-year-old status post IDC and DCIS subareolar left breast with involvement dermal lymphatics and positive left axillary node. Status post multiple rounds neoadjuvant chemotherapy. COMPARISON: Mammography: 01/21/2022, 03/29/2022, ultrasound left breast 03/23/2022, ultrasound core biopsy breast 03/29/2022, ultrasound-guided core biopsy left axillary node 04/27/2022, PET/CT 06/08/2022, CTA chest 09/04/2022. TECHNIQUE: Digital breast tomosynthesis is performed in both the craniocaudal and mediolateral oblique views along with computer-aided detection (CAD). Synthesized 2D images are generated from the tomosynthesis. Additional views are obtained: Exaggerated CC, magnification CC x2, magnification ML x3. Ultrasound left breast is targeted to the anterior breast and subareolar breast. Grayscale imaging and color Doppler are performed without and with harmonics. FINDINGS: There are scattered areas of fibroglandular density (ACR BI-RADS breast composition Category b). When compared with prior mammography 03/23/2022, there is diffuse increased skin thickening greatest anterior breast along with accentuated coarsening of the stromal markings. Biopsy clip marker is again noted subareolar breasts. The mass is grossly stable. There are interval new numerous punctate pleomorphic and short farnaz calcifications in the medial and lateral anterior breast and within the thickened anterior breast dermis. Ultrasound targeted to the retroareolar region demonstrates the previously biopsied subareolar and the HydroMark clip marker. Overall dimensions are slightly smaller when compared with the prebiopsy size. There is diffuse increased skin thickening and scattered intradermal color flow. Results are discussed with the patient at time of visit. Results are called and discussed with Dr. Mitchell on 11/11/2022. US/US breast LT complete IMPRESSION: -Interval abnormal diffuse skin thickening and coarsening stromal markings anterior breast since prior mammography 01/21/2022. -Interval abnormal punctate pleomorphic and short farnaz like calcifications anterior uterine outer quadrants and within the thickened skin anterior breast. -Above findings are suspicious for progressive disease. The primary lesion subareolar breast is stable to borderline decreased. ASSESSMENT: BI-RADS 6: Known Biopsy-Proven Malignancy RECOMMENDATION: Patient to follow-up with her oncologist and breast surgeon for additional management recommendations. .
--- NOTE | ~2022-11-11 | MM_ITS ---
EXAMINATION: MM DIAGNOSTIC DIGITAL BREAST TOMOSYNTHESIS, LEFT US DIAGNOSTIC ULTRASOUND BREAST, LEFT CLINICAL INFORMATION: 62-year-old status post IDC and DCIS subareolar left breast with involvement dermal lymphatics and positive left axillary node. Status post multiple rounds neoadjuvant chemotherapy. COMPARISON: Mammography: 01/21/2022, 03/29/2022, ultrasound left breast 03/23/2022, ultrasound core biopsy breast 03/29/2022, ultrasound-guided core biopsy left axillary node 04/27/2022, PET/CT 06/08/2022, CTA chest 09/04/2022. TECHNIQUE: Digital breast tomosynthesis is performed in both the craniocaudal and mediolateral oblique views along with computer-aided detection (CAD). Synthesized 2D images are generated from the tomosynthesis. Additional views are obtained: Exaggerated CC, magnification CC x2, magnification ML x3. Ultrasound left breast is targeted to the anterior breast and subareolar breast. Grayscale imaging and color Doppler are performed without and with harmonics. FINDINGS: There are scattered areas of fibroglandular density (ACR BI-RADS breast composition Category b). When compared with prior mammography 03/23/2022, there is diffuse increased skin thickening greatest anterior breast along with accentuated coarsening of the stromal markings. Biopsy clip marker is again noted subareolar breasts. The mass is grossly stable. There are interval new numerous punctate pleomorphic and short farnaz calcifications in the medial and lateral anterior breast and within the thickened anterior breast dermis. Ultrasound targeted to the retroareolar region demonstrates the previously biopsied subareolar and the HydroMark clip marker. Overall dimensions are slightly smaller when compared with the prebiopsy size. There is diffuse increased skin thickening and scattered intradermal color flow. Results are discussed with the patient at time of visit. Results are called and discussed with Dr. Mitchell on 11/11/2022. MM/MM tomosynthesis diagnostic LT IMPRESSION:
== END ==
LOC: HO.CARD 13:04
PROVIDERS: Visit Provider Internal Medicine Medical Oncology
DX: C50.912 Malignant neoplasm of unspecified site of left female breast (principal); C77.3 Secondary and unspecified malignant neoplasm of axilla and upper limb lymph nodes; R92.2 Inconclusive mammogram; Z92.21 Personal history of antineoplastic chemotherapy
CPT/HCPCS: 76641; 77061; 77065; 93308; 93356

== ENCOUNTER → 2022-12-01 14:51 | Outpatient (BNVA) | payer OTHER, SELFPAY | PROVIDERS: PCP Internal Medicine; Visit Provider Surgery | DX: C50.912 Malignant neoplasm of unspecified site of left female breast (principal) | CPT/HCPCS: 99212 ==

== ENCOUNTER 2022-12-21 08:23 | Day surgery (SDC) | payer OTHER, SELFPAY ==
[2022-12-15 12:25] VITALS: BMI 35.9
[2022-12-15 12:36] VITALS: BP 182/84; PULSE 86; RESP 20; O2SAT 98
--- NOTE | 2022-12-15 12:45 | P.CONAN_ITS ---
Documented by User: Dulce Park NP 12/15/22 13:15 HPI - Anesthesia Eval Consult details Narrative: 62yo F Left Mastectomy Modified Radical, [place] Node Biopsy Port a cath R chest Pt reports some SOB on extubation, resolves with updraft treatment Chronic prn oxycodone PMFSH Active Problems Active Problems: All Active Problems (Updated 12/15/22 @ 12:21 by Bisi Kenny, RN) Urge incontinence (Acute) Obesity (BMI 30-39.9) (Acute) RLS (restless legs syndrome) (Acute) Colonoscopy refused (Acute) Mammogram declined (Acute) Tobacco abuse (Acute) Left hip pain (Acute) Insomnia (Acute) Erythrocytosis (Acute) Annual physical exam (Acute) Tinea pedis (Acute) HER2-positive carcinoma of breast (Acute) Type 2 diabetes mellitus with hyperglycemia (Acute) Colon cancer screening (Acute) Family history of prostate cancer in father (Acute) Invasive ductal carcinoma of left breast (Acute) Thyroid nodule (Acute) Adrenal adenoma (Acute) Peripheral vascular disease (Acute) Hypertension (Acute) COPD (chronic obstructive pulmonary disease) (Acute) Hypercholesterolemia (Acute) Past Medical History Medical History Adrenal adenoma Arthritis Cervical cancer screening COPD (chronic obstructive pulmonary disease) DCIS (ductal carcinoma in situ) Diabetes Ductal carcinoma in situ (DCIS) of left breast Effusion of left knee Encounter to discuss test results [place] Family history of prostate cancer in father Generalized anxiety disorder History of anal fissures History of palpitations History of short term memory loss History of unsteady gait Hx of renal calculi Hypercholesterolemia Hypertension Invasive ductal carcinoma of left breast Leg swelling Low back pain Mild heartburn Peripheral vascular disease Port-A-Cath in place Shortness of breath Smoker Thyroid nodule Type 2 diabetes mellitus with hyperglycemia Urinary incontinence Vaginal yeast infection Vision changes Weakness Family History Family History Mother History of breast cancer Father Prostate CA Brother No problems noted. Brother No problems noted. Daughter No problems noted. Family history of problems with anesthesia: No (Brother had cardiac arrest under anesthesia with successful resuscitation) Surgical History Surgical History History of appendectomy History of biopsy History of bladder surgery History of cholecystectomy History of endometrial ablation History of left knee replacement History of tonsillectomy Hx of tubal ligation History of Problems with Anesthesia: No Social History Social History Household Members: Family Household Members Other:: Daughter Housing: House Are you a primary transitional care liaison to a significant other at home: Yes () Do you presently have visiting nurse or other home services: Yes (Home Health Aid) Alcohol intake: current Alcohol intake frequency: holidays/special occasions only Patient Tobacco Use Status: Current everyday Tobacco user Tobacco use type: Cigarette Cigarette Packs Per Day: 1.25 Cigarettes Per Day: 25.0 Years Smoked: 40 Smoked in Last 30 Days: Yes e-Cigarette/Vaping Use: Never Used Patient Interested in Nicotine Replacement: Yes Patient Given Instructions on How to Stop Smoking: Yes Date Education Initiated: 12/15/22 Second Hand Smoke Exposure: No Use of substances other than those prescribed or required for medical reasons: No Have you been hit, kicked, punched, or otherwise hurt by someone within the past year? If so, by whom?: No Are you DNR?: No Advance Directives: No Advance Directives Information Provided: Yes (wants Daughter Henna as HCP) Advance Directives on File: No Recently lost weight without trying: Yes How much weight loss: 14-23 pounds Eating poorly because of decreased appetite: No Nutrition screen score: 4 Patient : No Poor oral hygiene: No (teeth - no dentures) service: No Current occupational status: disabled Cognitive needs: No Hearing needs: No Vision needs: Yes Narrative Narrative: No recent illness PEREYRA at baseline No CP, occassional fast heart rate FBS ~ 220 at home Meds Allergies Allergy/AdvReac Type Severity Reaction Status Date / Time diclofenac [From Voltaren] Allergy Severe ENLARGED Verified 12/21/22 07:19 LIVER lisinopril [From Zestril] Allergy Severe FLUID IN Verified 12/21/22 07:19 LUNG oxybutynin [Oxybutynin] Allergy Severe BODY Verified 12/21/22 07:19 TWITCHING Penicillins [PENICILLINS] Allergy Intermediate Facial Verified 12/21/22 07:19 Swelling metformin AdvReac Intermediate Diarrhea Verified 12/21/22 07:19 Home Medications Medication Instructions Recorded Confirmed Last Taken Type acetaminophen 325 mg capsule 325 mg PO QID PRN Pain 09/01/22 12/14/22 Unknown History ascorbic acid (vitamin C) 500 mg 500 mg PO DAILY 09/04/22 12/14/22 09/03/22 History tablet (Vitamin C) cyanocobalamin (vitamin B-12) 1,000 mcg PO DAILY 09/04/22 12/14/22 09/03/22 History 1,000 mcg tablet ferrous sulfate 325 mg (65 mg 325 mg PO FR@0900 09/04/22 12/14/22 09/03/22 History iron) tablet (Iron (ferrous sulfate)) zinc gluconate 50 mg tablet 50 mg PO DAILY 09/04/22 12/14/22 09/03/22 History Exam Exam Date and Time: December 15, 2022 1245 Height,Weight and Vital Signs: Height 5 ft 4 in Weight 94.801 kg Last Vital Signs Pulse 86 12/15/22 12:36 Resp 20 12/15/22 12:36 BP 182/84 H 12/15/22 12:36 Pulse Ox 98 12/15/22 12:36 O2 Del Method 12/15/22 12:36 Pertinent Lab Results Pertinent Lab Results: Laboratory Tests 11/25/22 11/25/22 09:25 09:25 WBC 11.6 H Hgb 14.9 Hct 46.3 Plt Count 294 Sodium 138 Potassium 4.5 D Chloride 107 Carbon Dioxide 22 BUN 14 Creatinine 0.66 Narrative Narrative: EKG 08/2022 Vent. Rate : 102 BPM ? ? Atrial Rate : 102 BPM ?? P-R Int : 146 ms? QRS Dur : 088 ms ? ? QT Int : 356 ms ? ? ? P-R-T Axes : 058 041 047 degrees ?? QTc Int : 463 ms ? Sinus tachycardia Otherwise normal ECG When compared with ECG of 27-APR-2022 09:29, No significant change was found ECHO 10/2022 Conclusions: - Normal LV systolic function with LVEF of 55-60%? ?? Airway Mallampati Class: I TM Dist: >3cm Neck ROM: Full Loose/Missing/Broken Teeth: Yes (Edentelous) Heart: Tachy, regular Lungs: CTAB Assessment and Plan Assessment Anesthesia Assessment: Anesthesia Plan Discussed, Smoking Cess. Discussed and PAT Visit Final Anesthetic Review Family History of Problems with Anesthesia: No (Brother had cardiac arrest under anesthesia with successful resuscitation) History of Problems with Anesthesia: No Documented by User: Moreno Berger MD 12/21/22 14:42 COUNTS INCLUDE 234 BEDS AT THE [facility] Past Medical History Medical History Adrenal adenoma Arthritis Cervical cancer screening COPD (chronic obstructive pulmonary disease) DCIS (ductal carcinoma in situ) Diabetes Ductal carcinoma in situ (DCIS) of left breast Effusion of left knee Encounter to discuss test results [place] Family history of prostate cancer in father Generalized anxiety disorder History of anal fissures History of palpitations History of short term memory loss History of unsteady gait Hx of renal calculi Hypercholesterolemia Hypertension Invasive ductal carcinoma of left breast Leg swelling Low back pain Mild heartburn Peripheral vascular disease Port-A-Cath in place Shortness of breath Smoker Thyroid nodule Type 2 diabetes mellitus with hyperglycemia Urinary incontinence Vaginal yeast infection Vision changes Weakness Family History Family History Mother History of breast cancer Father Prostate CA Brother No problems noted. Brother No problems noted. Daughter No problems noted. Family history of problems with anesthesia: No Surgical History Surgical History History of appendectomy History of biopsy History of bladder surgery History of cholecystectomy History of endometrial ablation History of left knee replacement History of tonsillectomy Hx of tubal ligation History of Problems with Anesthesia: No Social History Social History Household Members: Family Household Members Other:: Daughter Housing: House Are you a primary transitional care liaison to a significant other at home: Yes () Do you presently have visiting nurse or other home services: Yes (Home Health Aid) Alcohol intake: current Alcohol intake frequency: holidays/special occasions only Patient Tobacco Use Status: Current everyday Tobacco user Tobacco use type: Cigarette Cigarette Packs Per Day: 1.25 Cigarettes Per Day: 25.0 Years Smoked: 40 Smoked in Last 30 Days: Yes e-Cigarette/Vaping Use: Never Used Patient Interested in Nicotine Replacement: Yes Patient Given Instructions on How to Stop Smoking: Yes Date Education Initiated: 12/15/22 Second Hand Smoke Exposure: No Use of substances other than those prescribed or required for medical reasons: No Have you been hit, kicked, punched, or otherwise hurt by someone within the past year? If so, by whom?: No Are you DNR?: No Advance Directives: No Advance Directives Information Provided: Yes (wants Daughter Henna as HCP) Advance Directives on File: No Recently lost weight without trying: Yes How much weight loss: 14-23 pounds Eating poorly because of decreased appetite: No Nutrition screen score: 4 Patient : No Poor oral hygiene: No (teeth - no dentures) service: No Current occupational status: disabled Cognitive needs: No Hearing needs: No Vision needs: Yes Meds Allergies Allergy/AdvReac Type Severity Reaction Status Date / Time diclofenac [From Voltaren] Allergy Severe ENLARGED Verified 12/21/22 07:19 LIVER lisinopril [From Zestril] Allergy Severe FLUID IN Verified 12/21/22 07:19 LUNG oxybutynin [Oxybutynin] Allergy Severe BODY Verified 12/21/22 07:19 TWITCHING Penicillins [PENICILLINS] Allergy Intermediate Facial Verified 12/21/22 07:19 Swelling metformin AdvReac Intermediate Diarrhea Verified 12/21/22 07:19 Home Medications Medication Instructions Recorded Confirmed Last Taken Type acetaminophen 325 mg capsule 325 mg PO QID PRN Pain 09/01/22 12/14/22 Unknown History ascorbic acid (vitamin C) 500 mg 500 mg PO DAILY 09/04/22 12/14/22 09/03/22 History tablet (Vitamin C) cyanocobalamin (vitamin B-12) 1,000 mcg PO DAILY 09/04/22 12/14/22 09/03/22 History 1,000 mcg tablet ferrous sulfate 325 mg (65 mg 325 mg PO FR@0900 09/04/22 12/14/22 09/03/22 History iron) tablet (Iron (ferrous sulfate)) zinc gluconate 50 mg tablet 50 mg PO DAILY 09/04/22 12/14/22 09/03/22 History Exam Airway Mallampati Class: II TM Dist: >3cm Neck ROM: Full Denture: Upper and Lower Assessment and Plan Final Anesthetic Review Family History of Problems with Anesthesia: No History of Problems with Anesthesia: No NPO: Yes ASA Class: III Final Preanesthetic Review: No Changes in Pt Med Stat, Meds/Allgs Chart Reviewed, Consent Obtained/Reviewed and Anes Risks/Benef Reviewed Patient Risk: Intermediate Procedure Risk: Low Anesthetic Plan Anesthetic Plan: GA and Agree w/ Assess. and Plan Disposition: Standard PACU
[2022-12-21] VITALS (13 sets, daily range): BP systolic 117–165; BP diastolic 65–93; PULSE 84–106; RESP 10–35; TEMP 36.1–36.8; O2SAT 92–100; BMI 36.3
--- NOTE | ~2022-12-21 | MM_ITS ---
The surgical specimen report is included in a single combined report along with the ultrasound-guided needle localization under accession number [id number].
--- NOTE | ~2022-12-21 | US_ITS ---
EXAMINATION: US ULTRASOUND-GUIDED NEEDLE LOCALIZATION BREAST, LEFT NEEDLE LOCALIZATION SPECIMEN RADIOGRAPH FROM THE LEFT BREAST CLINICAL INFORMATION: Left breast IDC and DCIS subareolar with involvement dermal lymphatics and positive left axillary node. Status post neoadjuvant chemotherapy. Request localization of axillary node. COMPARISON: Mammography 03/23/2022, 03/29/2022, 11/11/2022, ultrasound left breast 03/23/2022, ultrasound-guided biopsy left breast 03/29/2022, ultrasound guided biopsy left axillary node 04/27/2022. TECHNIQUE NEEDLE LOC: Proper informed consent is obtained from the patient after discussion of the procedure, potential risks and complications, and alternatives including declining the procedure today. Patient was given an opportunity for questions. The patient appeared to understand. The patient consented to the procedure and signed the consent form. GUIDANCE: Real time ultrasound guidance APPROACH: Oblique lateral medial TARGET: Left axillary node with HydroMARK open coil biopsy clip marker. ANESTHESIA: 10 cc carbonated lidocaine 1% LOCALIZATION MARKER: [place] MammaLok 7.5 cm length. The skin is prepped and local anesthesia administered. The needle is positioned and position assessed with real time ultrasound. The wire is hooked into position. [place] needle protector placed. The patient tolerated the procedure well and had no immediate complication. Procedure results called to resident medical officer (Norma) for Dr. Teran. Following the procedure, 1% lidocaine ointment was administered to the left areola and covered with Tegaderm in anticipation of nuclear lymphoscintigraphy injection for sentinel lymph node mapping, to be described in separate report. TECHNIQUE SPECIMEN RADIOGRAPH: Single radiograph of the excised breast tissue is performed. FINDINGS SPECIMEN RADIOGRAPH: The specimen shows the distal hookwire delivered intact. The needle is removed prior to delivery to radiology. The open coil axillary biopsy clip marker is identified in the specimen. There is an adjacent oval density which may represent the node. Results were called to Dr. Serjio Teran in the operating room at the time of imaging. US/US breast needle loc LT IMPRESSION: 1. Status post ultrasound-guided left breast axillary needle localization with wire hooked into position. 2. Postoperative specimen radiograph obtained.
--- NOTE | ~2022-12-21 | NM_ITS ---
EXAMINATION: NM LYMPH SCINTIGRAPHY CLINICAL INFORMATION: Left breast cancer. COMPARISON: None TECHNIQUE: Following explaining left breast lymphoscintigraphy procedure, benefits and risk by Dr. Patrick, a written consent was obtained. The 4% lidocaine cream around the left breast areola was cleaned and draped in the usual sterile manner. 0.125 uCi of 99m Lymphoseek each was injected in 4 quadrants around the areola and imaging obtained 30 and 60 minutes. Patient tolerated procedure extremely well. FINDINGS: There is isotope activity in 4 quadrants around the left breast areola. There is no visualization of lymph nodes in the axilla or along the intramammary chain. There is some soft tissue uptake. Patient had significant left breast edema and thickening of skin which may have prevented visualization of lymph nodes. NM/NM sentinel node w imaging IMPRESSION: Left breast lymphoscintigraphy performed with delayed imaging up to 60 minutes performed. No sentinel nodes were seen. Please note patient has significant left breast edema and skin pitting.
[2022-12-21 07:51] LABS: COVID-19 Test Negative (Negative); IDNOW Serial# BCCEAD1C
[2022-12-21] MEDS: Lactated Ringers 1,000 ML 50 ML IVCONT (10:12)
[2022-12-21] MEDS: vancomycin HCL 1,500 MG in 0.9 % Sodium Chloride 500 ML 333.33 MG IV (10:16)
--- NOTE | 2022-12-21 10:33 | MHC.SHP ---
Pre-Procedural Eval Section A Date of Service: 12/21/22 The patient is an INPATIENT: No Changes since office visit: No Cold of Flu in the past 2 weeks, No New Medical Problems, No Changes in Medication and No Patient answered all questions The History & Physical has been completed within 30 days and I have reviewed it.: Yes Section B Chief Complaint: Left breast Cancer Allergies: Allergies Allergy/AdvReac Type Severity Reaction Status Date / Time diclofenac [From Voltaren] Allergy Severe ENLARGED Verified 12/21/22 07:19 LIVER lisinopril [From Zestril] Allergy Severe FLUID IN Verified 12/21/22 07:19 LUNG oxybutynin [Oxybutynin] Allergy Severe BODY Verified 12/21/22 07:19 TWITCHING Penicillins [PENICILLINS] Allergy Intermediate Facial Verified 12/21/22 07:19 Swelling metformin AdvReac Intermediate Diarrhea Verified 12/21/22 07:19 Plan I have reviewed the history and physical and performed a pertinent physical examination on my patient. No changes have occurred unless specified. Time Spent With Patient Time: Total time managing care of this patient today ____ minutes.
[2022-12-21] MEDS: Albuterol Sulfate (0.083%) 2.5 MG/3 ML VIAL.NEB INHALE (11:34)
--- NOTE | 2022-12-21 14:58 | P.OP_ITS ---
Operative Note Operative Note Date of Service: 12/21/22 Narrative: Preop diagnosis: invasive ductal carcinoma, left breast Postop diagnosis: Invasive ductal carcinoma, left breast, with targeted axillary dissection via needle localization of a lymph node Procedure: Total mastectomy, left breast, with targeted axillary dissection via needle localization of a lymph node, no other sentinel nodes removed Surgeon: Serjio Tearn MD assistant reading teacher: ZEUS Chaudhary The patient is a 62 year old female with a diagnosis of invasive ductal carcinoma of the left breast with a positive axillary lymph node on ultrasound biopsy, here for full mastectomy, targeted axillary dissection and sentinel node biopsy. She had involvement of the dermal lymphatics of the skin. She had undergone neoadjuvant chemotherapy with Dr. Mitchell therefore because of advanced disease. She had completed this and understood the planned procedure. She had undergone scintigraphy of the axilla earlier. No lymph nodes lit up on nuclear scans 60 minutes after this. She also had a needle localization of the previously positive axillary lymph node earlier. She was brought to the operating room. She was placed supine under general anesthesia via endotracheal tube. The left breast and axilla were prepped and draped in the usual sterile fashion. A surgical time-out was done. The patient received cefazolin 2 g IV preoperatively. I marked my planned line of incision. I infiltrated this with lidocaine 1%. Patient had indurated area of the medial aspect the breast because of the involvement with dermis. I therefore made sure that lines of incision were away from this indurated areas I made been sitting using blade 15. This was carried down through the full- thickness of the skin and subcutaneous fat with electrocautery. I then proceeded to develop the superior flap, maintaining a thickness of about [address] to the level of the clavicle. I proceeded to expose the pectoralis fascia these areas. I then developed my inferior flap the same fashion with the inframammary fold being the lower most margins of this flap. the medial margin was the sternum. After completing the superior flap,I proceeded to then lift up the pectoralis fascia off of the sternum proceeded to define a plane of dissection using electrocautery and blunt dissection. I proceeded to then carefully removed this entire breast tissue including the pectoralis fascia along this well-defined plane, leaving behind the back pectoralis fibers. I continued my dissection along the margins as described above as well on both the superior, and inferior margins. It is noted that the patient had very patient had a very large and pendulous breast so dissection was technically difficult. I continued to separate the tissue along this well-defined plane until I was able to reach the lateral border of the pectorals muscle. This was therefore to be are margins of dissection. Once we reached this edge of the pectorals, I proceeded to dissect the rest of the breast tissue. This entire specimen consisting of the left breast for pathology We then proceeded to do our targeted axillary dissection. I proceeded to sharply dissect through the axilla gently until was able to feel a large lymph node along with the needle. I carefully dissect this circumferentially with a combination of blunt dissection with the right angle, as well as dissection with the Metzenbaum scissors and electrocautery until I was able to completely isolate this entire large lymph node with the needle in place. Once this was achieved, I proceeded to cut the needle above the skin wireless architect. I has acted under the skin to free up the rest of the OR. I then sent the entire lymph node along with the wire for immediate rear a to make sure that we had the biopsy clip within this specimen. I then proceeded to the axilla with the gamma probe. We could not identify any weighted counts despite spending a lot of time scanning the entire axilla. I proceeded to therefore gently do some blood dissection of the axilla and patient to see if he can feel any lymph node at all. We spent an extended period of time doing this along with a combination of rescanning using CT ago my probe. We could not identify any mobile lymph node nor any elevated counts of the axilla. At this point, the radiologist had confirmed that the clip was within the specimen and that there may be 2 lymph nodes within this specimen. Furthermore the pathologist confirmed the presence of a lymph node within the specimen as well. I therefore she did copious irrigation of the area of dissection including the axilla. I made sure that there was good hemostasis of the chest wall. once this was confirmed, I proceeded to position SHARYN drains both inferior and superior flaps. Because of the wide area of dissection in view of the patient's breast size, we had to use 2 Drains. This were brought out through 2 separate exit sites on the inferior flap laterally. These were secured to the skin with nylon 3-0 anchoring sutures. The subcutaneous layer was reapposed with Dexon 3-0 interrupted sutures. Skin closure was achieved with subcu tear running Dexon 4-0 sutures. Steri-Strips and dressings were applied. The procedure was then completed. The patient tolerated the procedure well. There were no immediate complications. Initial and final counts of sponges and instruments were correct. Estimated blood loss was about 75 cc The patient was extubated without difficulty and transferred to the recovery room with stable vital signs. Breast [place] Node Biopsy Substrate(s) used for sentinel node biopsy in the neoadjuvant setting: Radiotracer All significantly radioactive nodes were removed, if radionuclide was used as the substrate for localization: N/A All palpably suspicious nodes were removed, if present: N/A If clips were placed in pathology-involved nodes, those nodes were identified and removed: Yes General Surg. - Synoptic Notes Breast [place] Node Biopsy Substrate(s) used for sentinel node biopsy in the neoadjuvant setting: Radiotracer All significantly radioactive nodes were removed, if radionuclide was used as the substrate for localization: N/A All palpably suspicious nodes were removed, if present: N/A If clips were placed in pathology-involved nodes, those nodes were identified and removed: Yes
[2022-12-21] MEDS: Albuterol/Iprat 2.5/0.5MG 3 ML AMPUL.NEB INHALE (15:26)
[2022-12-21] MEDS: oxyCODONE HCl Immed Release 5 MG TABLET PO ×2 (15:50→21:26)
[2022-12-21] MEDS: Acetaminophen 325 MG TABLET 650 MG PO ×2 (15:50→21:26)
[2022-12-21] MEDS: HYDROmorphone HCl 0.5 MG/0.5 ML SYRINGE IVPUSH (15:51)
--- NOTE | 2022-12-21 16:02 | PM.EVENT ---
Event Note Date of Service: 12/21/22 Event Note: seen postop underwent mastectomy, plus targeted axillary dissection earlier appears to have adequate pain control stable VS dressings dry SHARYN drains x 2 with minimal dark bloody output pain mgt Hospitalist consult for multiple medical problems daughter Henna updated Time Spent With Patient Time: Total time managing care of this patient today ____ minutes.
--- NOTE | 2022-12-21 16:44 | HO.PM.IMCN ---
History of Present Illness Data of Consult Service Date: 12/21/22 Primary Care Provider: Concepción Reyes MD HPI 62-year-old female with a pertinent history of infiltrating ductal carcinoma of left breast s/p chemotherapy,, insulin-dependent diabetes mellitus, chronic opioid use due to back pain, COPD not on home oxygen, generalized anxiety disorder who underwent mastectomy, plus targeted axillary dissection today. Has no acute issue at this time and pain seem to be adequately appears to have adequate pain control Review of Systems Review of Systems: Gen: no fever Resp: no sob, no cough CV: no chest, no PEREYRA, no leg edema GI: No n/v, no abd pain Neuro: No confusion [facility] History Adrenal adenoma Arthritis Cervical cancer screening COPD (chronic obstructive pulmonary disease) DCIS (ductal carcinoma in situ) Diabetes Ductal carcinoma in situ (DCIS) of left breast Effusion of left knee Encounter to discuss test results [place] Family history of prostate cancer in father Generalized anxiety disorder History of anal fissures History of palpitations History of short term memory loss History of unsteady gait Hx of renal calculi Hypercholesterolemia Hypertension Invasive ductal carcinoma of left breast Leg swelling Low back pain Mild heartburn Peripheral vascular disease Port-A-Cath in place Shortness of breath Smoker Thyroid nodule Type 2 diabetes mellitus with hyperglycemia Urinary incontinence Vaginal yeast infection Vision changes Weakness Family History Mother History of breast cancer Father Prostate CA Brother No problems noted. Brother No problems noted. Daughter No problems noted. Surgical History History of appendectomy History of biopsy History of bladder surgery History of cholecystectomy History of endometrial ablation History of left knee replacement History of tonsillectomy Hx of tubal ligation Social History Household Members: Family Household Members Other:: Daughter Housing: House Are you a primary child care leader to a significant other at home: Yes () Do you presently have visiting nurse or other home services: No Alcohol intake: current Alcohol intake frequency: holidays/special occasions only Patient Tobacco Use Status: Current everyday Tobacco user Tobacco use type: Cigarette Cigarette Packs Per Day: 1.25 Cigarettes Per Day: 25.0 Years Smoked: 40 Smoked in Last 30 Days: Yes e-Cigarette/Vaping Use: Never Used Patient Interested in Nicotine Replacement: Yes Patient Given Instructions on How to Stop Smoking: Yes Date Education Initiated: 12/21/22 Second Hand Smoke Exposure: No Use of substances other than those prescribed or required for medical reasons: No Currently Displaying Signs/Symptoms of Drug Intoxication Withdrawal: No Have you been hit, kicked, punched, or otherwise hurt by someone within the past year? If so, by whom?: No Do you feel safe in your current relationship?: Yes Is there a partner from a previous relationship who is making you feel unsafe now?: No Are you made to feel afraid or neglected: No Are you DNR?: No Advance Directives: No Advance Directives Information Provided: Yes (wants Daughter Henna as HCP) Advance Directives on File: No Do you have thoughts of harming others: None Do you have a plan to hurt others: No Plan Recently lost weight without trying: No How much weight loss: 14-23 pounds Eating poorly because of decreased appetite: No Nutrition screen score: 2 Nutrition Risks: No Nutritional Risk Patient : No : No Poor oral hygiene: No service: No Current occupational status: disabled Cognitive needs: No Hearing needs: No Vision needs: Yes Meds Allergies Allergy/AdvReac Type Severity Reaction Status Date / Time diclofenac [From Voltaren] Allergy Severe ENLARGED Verified 12/21/22 07:19 LIVER lisinopril [From Zestril] Allergy Severe FLUID IN Verified 12/21/22 07:19 LUNG oxybutynin [Oxybutynin] Allergy Severe BODY Verified 12/21/22 07:19 TWITCHING Penicillins [PENICILLINS] Allergy Intermediate Facial Verified 12/21/22 07:19 Swelling metformin AdvReac Intermediate Diarrhea Verified 12/21/22 07:19 Active Medications: Current Medications Acetaminophen (Acetaminophen 325 Mg Tablet) 650 mg PO QID [place] Albuterol Sulfate (Albuterol Sulfate (0.083%) 2.5 Mg/3 Ml Vial.Neb) 2.5 mg INHALE Q4H PRN PRN Reason: Shortness Of Breath Or Wheezing Albuterol Sulfate (Albuterol Sulfate 90 Mcg 8 Gm Inhaler) 1 puff INHALE RQID [place] Amlodipine Besylate (Amlodipine Besylate 5 Mg Tablet) 5 mg PO BID [facility]; Protocol Clonidine HCl (Clonidine Hcl 0.1 Mg Tablet) 0.1 mg PO BEDTIME [place]; Protocol Dextrose (Dextrose 50 % 25 Gm/50 Ml Syringe) 25 gm IVPUSH Q15M PRN; Protocol PRN Reason: per Hypoglycemia Standing Ord. Glucose (Glucose Gel 15 Gm Gel..Gram.) 15 gm PO Q15M PRN; Protocol PRN Reason: per Hypoglycemia Standing Ord. Heparin Sodium (Porcine) (Heparin Sodium,Porcine 5,000 Unit/Ml Vial) 5,000 unit SUBCUT Q8H COUNT INCLUDES [facility] Insulin Human Lispro (Insulin Lispro 100 Unit/Ml 3 Ml Vial) 0 unit SUBCUT QIDACHS COUNT INCLUDES THE [facility]; Protocol Morphine Sulfate (Morphine Sulfate 4 Mg/Ml Cartridge) 4 mg IVPUSH Q4H PRN; Protocol PRN Reason: Pain, Severe (Pain Scale 7-10) Non-Formulary Medication (Umeclidinium-Vilanterol [Anoro Ellipta]) 1 inhalation INHALE DAILY COUNT [facility]CLUDES [facility] Oxycodone HCl (Oxycodone Hcl Immed Release 5 Mg Tablet) 5 mg PO Q4H PRN PRN Reason: Pain, Moderate (Pain Scale 4-6 Oxycodone HCl (Oxycodone Hcl Immed Release 5 Mg Tablet) 10 mg PO Q4H PRN PRN Reason: Pain, Severe (Pain Scale 7-10) Paroxetine HCl (Paroxetine Hcl 20 Mg Tablet) 20 mg PO DAILY COUNT [facility]CLUDES [facility] Ropinirole HCl (Ropinirole Hcl 1 Mg Tablet) 1 mg PO BID COUNT INCLUDES THE [facility] Sodium Chloride (0.9 % Sodium Chloride Flush 3 Ml Syringe) 3 ml IVFLUSH QSHIFT COUNT INCLUDES THE [facility] Last Admin: 12/21/22 16:38 Dose: Not Given Tolterodine Tartrate (Tolterodine Tartrate La 4 Mg Cap.Er.24h) 4 mg PO DAILY COUNT [facility]CLUDES THE [facility] Home Medications Medication Instructions Recorded Confirmed Last Taken Type acetaminophen 325 mg capsule 325 mg PO QID PRN Pain 09/01/22 12/14/22 Unknown History ascorbic acid (vitamin C) 500 mg 500 mg PO DAILY 09/04/22 12/14/22 09/03/22 History tablet (Vitamin C) cyanocobalamin (vitamin B-12) 1,000 mcg PO DAILY 09/04/22 12/14/22 09/03/22 History 1,000 mcg tablet ferrous sulfate 325 mg (65 mg 325 mg PO FR@0900 09/04/22 12/14/22 09/03/22 History iron) tablet (Iron (ferrous sulfate)) zinc gluconate 50 mg tablet 50 mg PO DAILY 09/04/22 12/14/22 09/03/22 History Physical Exam Vital Signs and Narrative: Vital Signs: Last Vital Signs Temp 98 F 12/21/22 15:18 Pulse 101 H 12/21/22 16:05 Resp 12 12/21/22 16:05 BP 143/90 H 12/21/22 16:05 Pulse Ox 95 12/21/22 16:05 O2 Del Method 12/21/22 16:05 O2 Flow Rate 2 12/21/22 16:05 BMI result Body Mass Index 35.9 Const: Other: General: AO X 3, no acute distress Resp: CTA bilateral CVS: S1,S2,RRR GI: +BS, NT, no distention Skin: No rash Neuro: motor grossly intact Psych: appropriate affect Results Labs Labs: Laboratory Results - last 24 hr 12/21/22 07:15 COVID-19 ([facility]) Negative COVID-19 Clin Com See Note Imaging Radiologist's Impressions: Impressions Breast Needle Localization 12/21/22 09:10 IMPRESSION: 1. Status post ultrasound-guided left breast axillary needle localization with wire hooked into position. 2. Postoperative specimen radiograph obtained. [place] [facility] Nuclear Med 12/21/22 11:20 IMPRESSION: Left breast lymphoscintigraphy performed with delayed imaging up to 60 minutes performed. No sentinel nodes were seen. Please note patient has significant left breast edema and skin pitting. Assessment and Plan (1) Type 2 diabetes mellitus with hyperglycemia: Status: Acute Plan 62-year-old female with a pertinent history of infiltrating ductal carcinoma of left breast s/p chemotherapy, insulin-dependent diabetes mellitus, chronic opioid use due to back pain, COPD not on home oxygen, generalized anxiety disorder who underwent mastectomy and axilary disection today #.? COPD, no acute exacerbation, continue inhalers and closely monitor respiratory status #.? Insulin-dependent type 2 diabetes mellitus, resume home meds once eating and add SSI #.? Generalized anxiety disorder -on paroxetine Time Spent With Patient Time: Total time managing care of this patient today ____ minutes.
[2022-12-21 17:07] LABS: Glucose, Whole Blood 250 mg/dL (60-115)
[2022-12-21] MEDS: Insulin Lispro 100 UNIT/ML 3 ML VIAL SUBCUT ×2 (17:32→21:27)
[2022-12-21] MEDS: Morphine Sulfate 4 MG/ML CARTRIDGE IVPUSH ×2 (17:55→22:36)
[2022-12-21] MEDS: Albuterol Sulfate 90 MCG 8 GM INHALER 1 PUFF INHALE (19:35)
[2022-12-21 21:12] LABS: Glucose, Whole Blood 171 mg/dL (60-115)
[2022-12-21] MEDS: rOPINIRole HCL 1 MG TABLET PO (21:26)
[2022-12-21] MEDS: cloNIDine HCL 0.1 MG TABLET PO (21:27)
[2022-12-21] MEDS: amLODIPine Besylate 5 MG TABLET PO (21:27)
[2022-12-22] VITALS (10 sets, daily range): BP systolic 106–147; BP diastolic 60–71; PULSE 90–107; RESP 18–22; TEMP 36–37; O2SAT 94–97; BMI 36.3
[2022-12-22] MEDS: 0.9 % Sodium Chloride Flush 3 ML SYRINGE IVFLUSH ×3 (00:04→17:01)
[2022-12-22] MEDS: Morphine Sulfate 4 MG/ML CARTRIDGE IVPUSH ×3 (03:27→18:05)
[2022-12-22 07:26] LABS: Glucose, Whole Blood 182 mg/dL (60-115)
[2022-12-22] MEDS: Albuterol Sulfate 90 MCG 8 GM INHALER 1 PUFF INHALE ×4 (07:31→20:02)
[2022-12-22] MEDS: Acetaminophen 325 MG TABLET 650 MG PO ×4 (07:44→21:04)
[2022-12-22] MEDS: oxyCODONE HCl Immed Release 5 MG TABLET 10 MG PO (08:08)
[2022-12-22] MEDS: Insulin Lispro 100 UNIT/ML 3 ML VIAL SUBCUT ×4 (08:09→21:05)
--- NOTE | 2022-12-22 08:36 | PM.PNGS ---
Subjective Subjective Date of Service: 12/22/22 <Zoe Chaudhary PA-C - Last Filed: 12/22/22 08:42> 12/22/22 <Serjio Teran MD - Last Filed: 12/22/22 12:08> Interval history: Had a difficult night with pain. Required morphine. Was unable to sleep. Has not had much to eat. <Zoe Chaudhary PA-C - Last Filed: 12/22/22 08:42> Physical Exam Vital Signs: Vital Signs: Last Vital Signs Temp 98.6 F 12/22/22 07:43 Pulse 91 12/22/22 07:43 Resp 18 12/22/22 07:43 BP 129/67 12/22/22 07:43 Pulse Ox 95 12/22/22 07:43 O2 Del Method 12/22/22 07:43 O2 Flow Rate 3 12/21/22 16:44 BMI result Body Mass Index 36.3 <Zoe Chaudhary PA-C - Last Filed: 12/22/22 08:42> Const: General: comfortable, no acute distress and alert <Zoe Chaudhary PA-C - Last Filed: 12/22/22 08:42> Orientation/consciousness: patient oriented x3 <Zoe Chaudhary PA-C - Last Filed: 12/22/22 08:42> Chest: Other: dressing clean and intact, visible flaps appear viable; SHARYN drains with sanguineous drainage <Zoe Chaudhary PA-C - Last Filed: 12/22/22 08:42> Resp: Effort & Inspection: normal respiratory effort <Zoe Chaudhary PA-C - Last Filed: 12/22/22 08:42> Skin: General skin exam: no rashes or lesions noted <Zoe Chaudhary PA-C - Last Filed: 12/22/22 08:42> Neuro: General: patient oriented x3 and moves all extremities <RENAN West Last Filed: 12/22/22 08:42> Objective Data Active Medications Acetaminophen (Acetaminophen 325 Mg Tablet) 650 mg PO QID [place] Last Admin: 12/22/22 07:44 Dose: 650 mg Documented By: SAULO Albuterol Sulfate (Albuterol Sulfate (0.083%) 2.5 Mg/3 Ml Vial.Neb) 2.5 mg INHALE Q4H PRN PRN Reason: Shortness Of Breath Or Wheezing Albuterol Sulfate (Albuterol Sulfate 90 Mcg 8 Gm Inhaler) 1 puff INHALE RQID [facility] Last Admin: 12/22/22 07:31 Dose: 1 puff Documented By: HARLAN Amlodipine Besylate (Amlodipine Besylate 5 Mg Tablet) 5 mg PO BID [facility]; Protocol Last Admin: 12/21/22 21:27 Dose: 5 mg Documented By: MARJ Clonidine HCl (Clonidine Hcl 0.1 Mg Tablet) 0.1 mg PO BEDTIME [facility]; Protocol Last Admin: 12/21/22 21:27 Dose: 0.1 mg Documented By: MARJ Dextrose (Dextrose 50 % 25 Gm/50 Ml Syringe) 25 gm IVPUSH Q15M PRN; Protocol PRN Reason: per Hypoglycemia Standing Ord. Glucose (Glucose Gel 15 Gm Gel..Gram.) 15 gm PO Q15M PRN; Protocol PRN Reason: per Hypoglycemia Standing Ord. Heparin Sodium (Porcine) (Heparin Sodium,Porcine 5,000 Unit/Ml Vial) 5,000 unit SUBCUT Q8H [facility] Insulin Human Lispro (Insulin Lispro 100 Unit/Ml 3 Ml Vial) 0 unit SUBCUT QIDACHS [facility]; Protocol Last Admin: 12/22/22 08:09 Dose: 2 unit Documented By: SAULO Morphine Sulfate (Morphine Sulfate 4 Mg/Ml Cartridge) 4 mg IVPUSH Q4H PRN; Protocol PRN Reason: Pain, Severe (Pain Scale 7-10) Last Admin: 12/22/22 03:27 Dose: 4 mg Non-Formulary Medication (Umeclidinium-Vilanterol [Anoro Ellipta]) 1 inhalation INHALE DAILY [facility] Oxycodone HCl (Oxycodone Hcl Immed Release 5 Mg Tablet) 5 mg PO Q4H PRN PRN Reason: Pain, Moderate (Pain Scale 4-6 Last Admin: 12/21/22 21:26 Dose: 5 mg Documented By: MARJ Oxycodone HCl (Oxycodone Hcl Immed Release 5 Mg Tablet) 10 mg PO Q4H PRN PRN Reason: Pain, Severe (Pain Scale 7-10) Last Admin: 12/22/22 08:08 Dose: 10 mg Documented By: SAULO Paroxetine HCl (Paroxetine Hcl 20 Mg Tablet) 20 mg PO DAILY [facility] Ropinirole HCl (Ropinirole Hcl 1 Mg Tablet) 1 mg PO BID [facility] Last Admin: 12/21/22 21:26 Dose: 1 mg Documented By: MARJ Sodium Chloride (0.9 % Sodium Chloride Flush 3 Ml Syringe) 3 ml IVFLUSH QSHIFT [facility] Last Admin: 12/22/22 07:44 Dose: 3 ml Documented By: SAULO Tolterodine Tartrate (Tolterodine Tartrate La 4 Mg Cap.Er.24h) 4 mg PO DAILY [facility] <Zoe Chaudhary PA-C - Last Filed: 12/22/22 08:42> Labs CBC & Chem 7: 12/22/22 09:19 <Zoe Chaudhary PA-C - Last Filed: 12/22/22 08:42> Labs: Laboratory Results - last 24 hr 12/21/22 12/21/22 12/22/22 17:03 21:08 07:13 POC Glucose 250 H 171 H 182 H <Zoe Chaudhary PA-C - Last Filed: 12/22/22 08:42> Procedures Date of Service Date of Service: 12/22/22 <Zoe Chaudhary PA-C - Last Filed: 12/22/22 08:42> Progress Note: A&P Assessment and plan (1) Invasive ductal carcinoma of left breast: Status: Acute <Zoe Chaudhary PA-C - Last Filed: 12/22/22 08:42> Assessment and Plan: Status post mastectomy , targeted axillary dissection She seems to be doing well SHARYN drains with scanty output Flaps appear viable She still has some issues with pain control and wants to stay overnight again Seen and examined independently Agree with ZEUS Chaudhary <Serjio Teran MD - Last Filed: 12/22/22 12:08> (2) S/P left mastectomy: Status: Acute <Zoe Chaudhary PA-C - Last Filed: 12/22/22 08:42> Assessment and Plan: 62 year old female with left invasive ductal CA POD #1 s/p total mastectomy, left breast, with targeted axillary dissection via needle localization of a lymph node. She has been requiring IV analgesics but is comfortable with them. VSS. Mastectomy dressing clean, visible flaps appears viable, SHARYN output is sanguineous and SHARYN drain A high- will obtain CBC. She was encouraged OOB to recliner and ambulation. Diet as tolerated. Pain control- encouraged use of PO analgesics today in preparation for discharge. Plan for discharge likely tomorrow, dressing change. <Zoe Chaudhary PA-C - Last Filed: 12/22/22 08:42> Time Spent With Patient Time: Total time managing care of this patient today ____ minutes. <Zoe Chaudhary PA-C - Last Filed: 12/22/22 08:42> Quality Stroke Does the patient have a stroke diagnosis?: No <Zoe Chaudhary PA-C - Last Filed: 12/22/22 08:42> VTE Prior VTE?: No <Zoe Chaudhary PA-C - Last Filed: 12/22/22 08:42> VTE Risk Level:: Medical - moderate - high <Zoe Chaudhary PA-C - Last Filed: 12/22/22 08:42> VTE Device Contraindication: N/A - Device Ordered <RENAN West Last Filed: 12/22/22 08:42> VTE Drug Contraindication: N/A - Med Ordered <RENAN West Last Filed: 12/22/22 08:42>
[2022-12-22 09:30] LABS: MANUAL DIFF FLAG NO
[2022-12-22] MEDS: amLODIPine Besylate 5 MG TABLET PO ×2 (09:30→21:05)
[2022-12-22] MEDS: rOPINIRole HCL 1 MG TABLET PO ×2 (09:31→21:05)
[2022-12-22] MEDS: PARoxetine HCL 20 MG TABLET PO (09:31)
[2022-12-22] MEDS: Tolterodine Tartrate LA 4 MG CAP.ER.24H PO (09:31)
[2022-12-22] MEDS: Heparin Sodium,Porcine 5,000 UNIT/ML VIAL 5000 UNIT SUBCUT ×2 (09:32→18:05)
--- NOTE | 2022-12-22 09:35 | P.PNIM_ITS ---
Subjective Subjective Date of Service: 12/22/22 Interval History: f/u on on med management post mastectomy no new issue, doing well withpain control Physical Exam Vital Signs: Vital Signs: Last Vital Signs Temp 98.6 F 12/22/22 07:43 Pulse 91 12/22/22 07:43 Resp 18 12/22/22 07:43 BP 129/67 12/22/22 07:43 Pulse Ox 95 12/22/22 07:43 O2 Del Method 12/22/22 07:43 O2 Flow Rate 3 12/21/22 16:44 BMI result Body Mass Index 36.3 Const: Other: General: AO X 3, no acute distress Resp: CTA bilateral CVS: S1,S2,RRR GI: +BS, NT, no distention Skin: No rash Neuro: motor grossly intact Psych: appropriate affect Objective Data Active Medications Acetaminophen (Acetaminophen 325 Mg Tablet) 650 mg PO QID [facility] Last Admin: 12/22/22 07:44 Dose: 650 mg Documented By: SAULO Albuterol Sulfate (Albuterol Sulfate (0.083%) 2.5 Mg/3 Ml Vial.Neb) 2.5 mg INHALE Q4H PRN PRN Reason: Shortness Of Breath Or Wheezing Albuterol Sulfate (Albuterol Sulfate 90 Mcg 8 Gm Inhaler) 1 puff INHALE RQID [facility] Last Admin: 12/22/22 07:31 Dose: 1 puff Documented By: HARLAN Amlodipine Besylate (Amlodipine Besylate 5 Mg Tablet) 5 mg PO BID [facility]; Protocol Last Admin: 12/22/22 09:30 Dose: 5 mg Documented By: SAULO Clonidine HCl (Clonidine Hcl 0.1 Mg Tablet) 0.1 mg PO BEDTIME [facility]; Protocol Last Admin: 12/21/22 21:27 Dose: 0.1 mg Documented By: MARJ Dextrose (Dextrose 50 % 25 Gm/50 Ml Syringe) 25 gm IVPUSH Q15M PRN; Protocol PRN Reason: per Hypoglycemia Standing Ord. Glucose (Glucose Gel 15 Gm Gel..Gram.) 15 gm PO Q15M PRN; Protocol PRN Reason: per Hypoglycemia Standing Ord. Heparin Sodium (Porcine) (Heparin Sodium,Porcine 5,000 Unit/Ml Vial) 5,000 unit SUBCUT Q8H [facility] Last Admin: 12/22/22 09:32 Dose: 5,000 unit Documented By: SAULO Insulin Human Lispro (Insulin Lispro 100 Unit/Ml 3 Ml Vial) 0 unit SUBCUT QIDACHS [facility]; Protocol Last Admin: 12/22/22 08:09 Dose: 2 unit Documented By: SAULO Morphine Sulfate (Morphine Sulfate 4 Mg/Ml Cartridge) 4 mg IVPUSH Q4H PRN; Protocol PRN Reason: Pain, Severe (Pain Scale 7-10) Last Admin: 12/22/22 03:27 Dose: 4 mg Non-Formulary Medication (Umeclidinium-Vilanterol [Anoro Ellipta]) 1 inhalation INHALE DAILY [facility] Oxycodone HCl (Oxycodone Hcl Immed Release 5 Mg Tablet) 5 mg PO Q4H PRN PRN Reason: Pain, Moderate (Pain Scale 4-6 Last Admin: 12/21/22 21:26 Dose: 5 mg Documented By: MARJ Oxycodone HCl (Oxycodone Hcl Immed Release 5 Mg Tablet) 10 mg PO Q4H PRN PRN Reason: Pain, Severe (Pain Scale 7-10) Last Admin: 12/22/22 08:08 Dose: 10 mg Documented By: SAULO Paroxetine HCl (Paroxetine Hcl 20 Mg Tablet) 20 mg PO DAILY [facility] Last Admin: 12/22/22 09:31 Dose: 20 mg Documented By: SAULO Ropinirole HCl (Ropinirole Hcl 1 Mg Tablet) 1 mg PO BID [facility] Last Admin: 12/22/22 09:31 Dose: 1 mg Documented By: SAULO Sodium Chloride (0.9 % Sodium Chloride Flush 3 Ml Syringe) 3 ml IVFLUSH QSHIFT [facility] Last Admin: 12/22/22 07:44 Dose: 3 ml Documented By: SAULO Tolterodine Tartrate (Tolterodine Tartrate La 4 Mg Cap.Er.24h) 4 mg PO DAILY [facility] Last Admin: 12/22/22 09:31 Dose: 4 mg Documented By: SAULO Labs 12/22/22 09:19 Labs: Laboratory Results - last 24 hr 12/21/22 12/21/22 12/22/22 17:03 21:08 07:13 POC Glucose 250 H 171 H 182 H Assessment and Plan (1) Type 2 diabetes mellitus with hyperglycemia: Status: Acute (2) Hypertension: Status: Acute (3) COPD (chronic obstructive pulmonary disease): Status: Acute Plan 62-year-old female with a pertinent history of infiltrating ductal carcinoma of left breast s/p chemotherapy, insulin-dependent diabetes mellitus, chronic opioid use due to back pain, COPD not on home oxygen, generalized anxiety disorder who underwent mastectomy and axilary disection today #.? COPD, no acute exacerbation, continue inhalers and closely monitor respiratory status #.? Insulin-dependent type 2 diabetes mellitus, restart lantus, SSI, hold glip izide #. HTN--Norvasc #.? Generalized anxiety disorder -on paroxetine #. s/p mastectomy--management by surgery Time Spent With Patient Time: Total time managing care of this patient today ____ minutes. Quality Stroke Does the patient have a stroke diagnosis?: No VTE Prior VTE?: No VTE Risk Level:: Medical - moderate - high VTE Device Contraindication: N/A - Device Ordered VTE Drug Contraindication: N/A - Med Ordered
[2022-12-22 09:36] LABS: Basophils Absolute Auto 0.1 X10*3/uL (0.0-0.2); Basophils Percent Auto 0.6 % (0-2); Eosinophils Absolute Auto 0.2 X10*3/uL (0.0-0.4); Eosinophils Percent Auto 1.8 % (0-4); Hematocrit 40.7 % (37.0-47.0); Hemoglobin 13.3 g/dl (12.0-16.0); Imm Gran Abs Auto 0.04 X10*3/uL (0.00-0.03); Imm Gran Pct Auto 0.3 % (0.0-0.4); Lymphocytes Absolute Auto 1.9 X10*3/uL (1.2-4.9); Lymphocytes Percent Auto 14.8 % (20-40); Mean Corpuscular HGB Conc 32.7 g/dl (31.0-35.0); Mean Corpuscular Hemoglobin 29.9 pg (27.0-33.0); Mean Corpuscular Volume 91.5 fL (80.0-98.0); Mean Platelet Volume 9.6 fL (9.4-12.3); Monocytes Percent Auto 8.2 % (2-11); Neutrophils Absolute Auto 9.4 x10*3/uL (2.0-8.3); Neutrophils Percent Auto 74.3 % (45-73); Platelet Count 260 X10*3/uL (160-400); Red Blood Count 4.45 X10*6/uL (4.20-5.50); Red Cell Distribution Width 16.1 % (11.0-16.0); White Blood Count 12.6 X10*3/uL (4.8-10.8)
[2022-12-22] MEDS: Insulin Glargine,Hum.rec.anlog 100 UNIT/ML 10 ML VIAL 10 UNIT SUBCUT (10:24)
[2022-12-22 11:06] LABS: Glucose, Whole Blood 285 mg/dL (60-115)
--- NOTE | 2022-12-22 14:06 | MHC.CM.PN ---
EMR REVIEWED, PT S/P LEFT MASTECTOMY, CM MET W/PT WHO IS REQUESTING [facility] ON D/C, [place] HAS NO PREFERENCES AND WOULD LIKE [facility], REFERRAL PLACED FOR SN. PER SURGICAL ANTIC PT WILL D/C TOMORROW, CM WILL CONT TO FOLLOW.
--- NOTE | 2022-12-22 14:24 | HO.POSTANES ---
Post Anesthesia Evaluation Post Anesthesia Evaluation Vital Signs: Vital Signs Temp Pulse Resp BP Pulse Ox O2 Del Method 12/22/22 11:07 93 20 12/22/22 07:43 98.6 F 91 18 129/67 95 Room Air 12/22/22 07:32 100 22 H 12/22/22 03:12 97.4 F 90 18 134/67 95 Room Air Anesthesia: General Mental Status: Awake Pain Control: Satisfactory (difficulty controlling pain throughout the night) Nausea/Vomiting: None Hydration: Adequate Anesthesia-Related Issues: No Anes. Related Issues
[2022-12-22 16:41] LABS: Glucose, Whole Blood 192 mg/dL (60-115)
[2022-12-22 20:06] LABS: Glucose, Whole Blood 177 mg/dL (60-115)
[2022-12-22] MEDS: cloNIDine HCL 0.1 MG TABLET PO (21:04)
[2022-12-23] MEDS: 0.9 % Sodium Chloride Flush 3 ML SYRINGE IVFLUSH ×2 (00:15→08:02)
[2022-12-23] MEDS: Morphine Sulfate 4 MG/ML CARTRIDGE IVPUSH (00:28)
[2022-12-23] MEDS: Heparin Sodium,Porcine 5,000 UNIT/ML VIAL 5000 UNIT SUBCUT ×2 (02:28→10:14)
[2022-12-23 03:35] VITALS: BP 150/79; PULSE 88; RESP 18; TEMP 36.3; O2SAT 95
[2022-12-23] MEDS: oxyCODONE HCl Immed Release 5 MG TABLET 10 MG PO ×2 (06:14→10:19)
[2022-12-23 07:26] LABS: Glucose, Whole Blood 191 mg/dL (60-115)
[2022-12-23 07:52] VITALS: BP 140/67; PULSE 93; RESP 18; TEMP 36.5; O2SAT 92
[2022-12-23] MEDS: Acetaminophen 325 MG TABLET 650 MG PO (08:01)
[2022-12-23] MEDS: PARoxetine HCL 20 MG TABLET PO (08:01)
[2022-12-23] MEDS: amLODIPine Besylate 5 MG TABLET PO (08:01)
[2022-12-23] MEDS: rOPINIRole HCL 1 MG TABLET PO (08:01)
[2022-12-23] MEDS: Tolterodine Tartrate LA 4 MG CAP.ER.24H PO (08:01)
[2022-12-23] MEDS: Insulin Lispro 100 UNIT/ML 3 ML VIAL SUBCUT (08:01)
[2022-12-23] MEDS: Insulin Glargine,Hum.rec.anlog 100 UNIT/ML 10 ML VIAL 10 UNIT SUBCUT (08:02)
--- NOTE | 2022-12-23 08:15 | P.PNGS_ITS ---
Subjective Subjective Date of Service: 12/23/22 <Zoe Chaudhary PA-C - Last Filed: 12/23/22 08:18> 12/23/22 <Serjio Teran MD - Last Filed: 12/23/22 09:02> Interval history: Feels better this morning. Still having some pain but improved. Tolerating diet. OOB without difficulty. <Zoe Chaudhary PA-C - Last Filed: 12/23/22 08:18> Physical Exam Vital Signs: Vital Signs: Last Vital Signs Temp 97.7 F 12/23/22 07:52 Pulse 93 12/23/22 07:52 Resp 18 12/23/22 07:52 BP 140/67 H 12/23/22 07:52 Pulse Ox 92 12/23/22 07:52 O2 Del Method 12/23/22 07:52 O2 Flow Rate 3 12/21/22 16:44 BMI result Body Mass Index 36.3 <Zoe Chaudhary PA-C - Last Filed: 12/23/22 08:18> Const: General: comfortable, no acute distress and alert <Zoe Chaudhary PA-C - Last Filed: 12/23/22 08:18> Orientation/consciousness: patient oriented x3 <Zoe Chaudhary PA-C - Last Filed: 12/23/22 08:18> Chest: Other: left mastectomy site- dressings changed by Dr. Teran, hematoma at upper flap, flaps currently viable, abhi intact,no erythema ; SHARYN drains with sanguineous output <Zoe Chaudhary PA-C - Last Filed: 12/23/22 08:18> Resp: Effort & Inspection: normal respiratory effort <Zoe Chaudhary PA-C - Last Filed: 12/23/22 08:18> Skin: General skin exam: no rashes or lesions noted <RENAN West Last Filed: 12/23/22 08:18> Neuro: General: patient oriented x3 and moves all extremities <RENAN West Last Filed: 12/23/22 08:18> Objective Data Active Medications Acetaminophen (Acetaminophen 325 Mg Tablet) 650 mg PO QID [place] Last Admin: 12/23/22 08:01 Dose: 650 mg Documented By: MARIA M Albuterol Sulfate (Albuterol Sulfate (0.083%) 2.5 Mg/3 Ml Vial.Neb) 2.5 mg I NHALE Q4H PRN PRN Reason: Shortness Of Breath Or Wheezing Albuterol Sulfate (Albuterol Sulfate 90 Mcg 8 Gm Inhaler) 1 puff INHALE RQID [facility] Last Admin: 12/22/22 20:02 Dose: 1 puff Documented By: SHIVANI Amlodipine Besylate (Amlodipine Besylate 5 Mg Tablet) 5 mg PO BID [facility]; Protocol Last Admin: 12/23/22 08:01 Dose: 5 mg Documented By: MARIA M Clonidine HCl (Clonidine Hcl 0.1 Mg Tablet) 0.1 mg PO BEDTIME [facility]; Protocol Last Admin: 12/22/22 21:04 Dose: 0.1 mg Documented By: MARJ Dextrose (Dextrose 50 % 25 Gm/50 Ml Syringe) 25 gm IVPUSH Q15M PRN; Protocol PRN Reason: per Hypoglycemia Standing Ord. Glucose (Glucose Gel 15 Gm Gel..Gram.) 15 gm PO Q15M PRN; Protocol PRN Reason: per Hypoglycemia Standing Ord. Heparin Sodium (Porcine) (Heparin Sodium,Porcine 5,000 Unit/Ml Vial) 5,000 unit SUBCUT Q8H [facility] Last Admin: 12/23/22 02:28 Dose: 5,000 unit Documented By: ED Insulin Glargine (Insulin Glargine,Hum.Rec.Anlog 100 Unit/Ml 10 Ml Vial) 10 unit SUBCUT DAILY [facility] Last Admin: 12/23/22 08:02 Dose: 10 unit Documented By: MARIA M Insulin Human Lispro (Insulin Lispro 100 Unit/Ml 3 Ml Vial) 0 unit SUBCUT QIDACHS [facility]; Protocol Last Admin: 12/23/22 08:01 Dose: 2 unit Documented By: MARIA M Morphine Sulfate (Morphine Sulfate 4 Mg/Ml Cartridge) 4 mg IVPUSH Q4H PRN; Protocol PRN Reason: Pain, Severe (Pain Scale 7-10) Last Admin: 12/23/22 00:28 Dose: 4 mg Documented By: ED Non-Formulary Medication (Umeclidinium-Vilanterol [Anoro Ellipta]) 1 inhalation INHALE DAILY [facility] Oxycodone HCl (Oxycodone Hcl Immed Release 5 Mg Tablet) 5 mg PO Q4H PRN PRN Reason: Pain, Moderate (Pain Scale 4-6 Last Admin: 12/21/22 21:26 Dose: 5 mg Documented By: MARJ Oxycodone HCl (Oxycodone Hcl Immed Release 5 Mg Tablet) 10 mg PO Q4H PRN PRN Reason: Pain, Severe (Pain Scale 7-10) Last Admin: 12/23/22 06:14 Dose: 10 mg Documented By: ED Paroxetine HCl (Paroxetine Hcl 20 Mg Tablet) 20 mg PO DAILY [facility] Last Admin: 12/23/22 08:01 Dose: 20 mg Documented By: MARIA M Ropinirole HCl (Ropinirole Hcl 1 Mg Tablet) 1 mg PO BID [facility] Last Admin: 12/23/22 08:01 Dose: 1 mg Documented By: MARIA M Sodium Chloride (0.9 % Sodium Chloride Flush 3 Ml Syringe) 3 ml IVFLUSH QSHIFT [facility] Last Admin: 12/23/22 08:02 Dose: 3 ml Documented By: MARIA M Tolterodine Tartrate (Tolterodine Tartrate La 4 Mg Cap.Er.24h) 4 mg PO DAILY [facility] Last Admin: 12/23/22 08:01 Dose: 4 mg Documented By: MARIA M <Zoe Chaudhary PA-C - Last Filed: 12/23/22 08:18> Labs CBC & Chem 7: 12/22/22 09:19 <Zoe Chaudhary PA-C - Last Filed: 12/23/22 08:18> Labs: Laboratory Results - last 24 hr 12/22/22 12/22/22 12/22/22 09:19 11:03 16:27 MCV 91.5 MCH 29.9 MCHC 32.7 RDW 16.1 H Plt Count 260 MPV 9.6 Immature Gran % (Auto) 0.3 Neut % (Auto) 74.3 H Lymph % (Auto) 14.8 L [place] % (Auto) 8.2 Eos % (Auto) 1.8 Baso % (Auto) 0.6 Lymph # (Auto) 1.9 [place] # (Auto) 1.0 Eos # (Auto) 0.2 Baso # (Auto) 0.1 Abs Immat Gran (auto) 0.04 H Absolute Neuts (auto) 9.4 H Absolute Nucleated RBC 0.000 Nucleated RBC % (auto) 0.0 POC Glucose 285 H 192 H 12/22/22 12/23/22 20:01 07:14 MCV MCH MCHC RDW Plt Count MPV Immature Gran % (Auto) Neut % (Auto) Lymph % (Auto) [place] % (Auto) Eos % (Auto) Baso % (Auto) Lymph # (Auto) [place] # (Auto) Eos # (Auto) Baso # (Auto) Abs Immat Gran (auto) Absolute Neuts (auto) Absolute Nucleated RBC Nucleated RBC % (auto) POC Glucose 177 H 191 H <Zoe Chaudhary PA-C - Last Filed: 12/23/22 08:18> Procedures Date of Service Date of Service: 12/23/22 <RENAN West Last Filed: 12/23/22 08:18> Progress Note: A&P Assessment and plan (1) S/P left mastectomy: Status: Acute <Zoe Chaudhary PA-C - Last Filed: 12/23/22 08:18> Assessment and Plan: Feels well Better pain control Hematoma seen on the upper flap medially - I explained to her that this may keep flap from adhering to pectoralis, and may cause flap ischemia Dressings changed SHARYN drain scanty I have instructed her on dressing changes as well as SHARYN drain care I will see her in the office next week for wound check and to possibly remove SHARYN drain Seen and examined independently Discussed with daughter <Serjio Teran MD - Last Filed: 12/23/22 09:02> (2) Invasive ductal carcinoma of left breast: Status: Acute <Zoe Chaudhary PA-C - Last Filed: 12/23/22 08:18> Assessment and Plan: 62 year old female with left invasive ductal CA POD #2 s/p total mastectomy, left breast, with targeted axillary dissection via needle localization of a lymph node. Doing well, pain well controlled. VSS. Mastectomy site clean, visible flaps appears viable, hematoma at upper flap SHARYN output is sanguineous. Plan for d ischarge today. Keep SHARYN drains in place. F/u in office in 1 week. <RENAN West Last Filed: 12/23/22 08:18> Time Spent With Patient Time: Total time managing care of this patient today ____ minutes. <Zoe Chaudhary PA-C - Last Filed: 12/23/22 08:18> Quality Stroke Does the patient have a stroke diagnosis?: No <Zoe Chaudhary PA-C - Last Filed: 12/23/22 08:18> VTE Prior VTE?: No <Zoe Chaudhary PA-C - Last Filed: 12/23/22 08:18> VTE Risk Level:: Medical - moderate - high <RENAN West Last Filed: 12/23/22 08:18> VTE Device Contraindication: N/A - Device Ordered <Zoe Chaudhary PA-C - Last Filed: 12/23/22 08:18> VTE Drug Contraindication: N/A - Med Ordered <Zoe Chaudhary PA-C - Last Filed: 12/23/22 08:18>
[2022-12-23] MEDS: Albuterol Sulfate (0.083%) 2.5 MG/3 ML VIAL.NEB INHALE (08:17)
[2022-12-23 08:18] VITALS: PULSE 106; RESP 18; O2SAT 97
--- NOTE | 2022-12-23 08:21 | P.F2F_ITS ---
Service Date Service Date: 12/23/22 Encounter Date of encounter: 12/23/22 Reasons for Services Signs and symptoms assessed: mastectomy site pain, mastectomy incision appearance, flap appearance, SHARYN output Reason for custodial: wound care and postoperative assessment and/or care Homebound: Leaving the home is medically contraindicated at this time without the asist of a device and/or another person due th the listed conditions above and below. Reason homebound: weakness related to hospital stay and unable to drive Homebound supporting statement: Ms. Ervin is s/p left mastectomy with targeted axillary dissection. She will need VNA for dressing changes and SHARYN drain care. Certification: Based on the above findings, I certify that this patient is confined to the home and needs intermittent custodial care, physical therapy and/or speech therapy, or continues to need occupational therapy. The patient is under my care, and I have initiated the establishment of the plan of care. The patient will be followed by a physician who will periodically review the plan of care. Time Spent With Patient Time: Total time managing care of this patient today ____ minutes.
--- NOTE | 2022-12-23 08:31 | PM.EVENT ---
Event Note Date of Service: 12/23/22 Event Note: Pt seen, vitals reviewed. Exam unchanged. Dr. Teran is planing to discharge home today. Pt may resume home meds upon discharge. time spent: 15 minutes Time Spent With Patient Time: Total time managing care of this patient today ____ minutes.
--- NOTE | 2022-12-23 08:49 | MHC.CM.PN ---
Addendum entered by Lisy Smith 12/24/22 09:32: FACE TO FACE SENT TO [facility]NA. DC SUMMARY NOT YET AVAILABLE PA MADE AWARE Addendum entered by Gladys Mckeon RN 12/23/22 11:17: PT PROVIDED W/[facility] FOR TRANSPORT Addendum entered by Lisy Smith 12/23/22 08:53: CORRECTION: PT WILL GO HOME WITH SN SERVICES (NOT PT) Original Note: PT WILL DC HOME TODAY WITH [facility] FOR PT SERVICES FAMILY WILL TRANSPORT
--- NOTE | 2022-12-24 11:03 | PM.DS ---
DS: Providers Provider Date of Service: 12/23/22 Date of discharge: 12/23/22 Primary care physician: Concepción Reyes MD Attending physician on admission: Serjio Teran Consults: 12/21/22 15:57 Consult to Hospitalist Routine Consulting Provider: Hospitalist Reason For Exam: HTN, DM, COPD, now postop for mastectomy, Attending physician on discharge: Serjio Teran DS: Diagnosis Discharge Diagnosis (1) S/P left mastectomy: Status: Acute (2) Invasive ductal carcinoma of left breast: Status: Acute DS: Summary Hospital Course Hospital Course: HPI AT ADMISSION: The patient is a 62 year old female with a diagnosis of invasive ductal carcinoma of the left breast with a positive axillary lymph node on ultrasound biopsy, here for mastectomy, targeted axillary dissection and sentinel node biopsy. She had involvement of the dermal lymphatics of the skin. She had undergone neoadjuvant chemotherapy with Dr. Stephen boone because of advanced disease. She had completed this and now presents for the planned procedure. She had undergone scintigraphy of the axilla earlier. No lymph nodes lit up on nuclear scans 60 minutes after this. She also had a needle localization of the previously positive axillary lymph node earlier. HOSPITAL COURSE: 12/21/22, left simple mastectomy with targeted axillary dissection via needle localization of a lymph node was performed by Dr. Teran without complication. No other sentinel nodes removed. She tolerated the procedure well. She had an uncomplicated recovery course. She remained inpatient for 2 days for pain control. On POD#2, her pain was controlled on PO analgesics. She was tolerating a solid diet and ambulating without difficulty. Her mastectomy incision was clean and abhi intact but there was a small hematoma of the upper flap but both flaps appeared viable. Pressure dressing was changed. SHARYN drains had sanguineous output and were kept in place. She was discharged to home on 12/23/22 in stable condition with VNA services. She is to follow up in 1 week in the office. She was educated and instructed on SHARYN drain care. Dressing change to incision for the next 1-2 days with 4x4s and tape and SHARYN dressing change daily. Status at Discharge Functional status at discharge: independent ambulation Overall status at discharge: patient is progressing back to baseline Time Spent with Patient Time attestation: Total time managing care of this patient today ____ minutes. Discharge coordination time: Less than 30 minutes Quality: Safe Use of Opioids Does Pt have an Active Cancer Diagnosis on the Problem List?: Yes Opioid Measure Date for [facility] [address] Report: 11/24/22 Opioid Measure Time for [facility] [address] Report: 11:11 Quality: Stroke Does the patient have a stroke diagnosis?: No Physical Exam Vital Signs: Vital Signs: Last Vital Signs Temp 97.7 F 12/23/22 07:52 Pulse 106 H 12/23/22 08:18 Resp 18 12/23/22 08:18 BP 140/67 H 12/23/22 07:52 Pulse Ox 92 12/23/22 07:52 O2 Del Method 12/23/22 07:52 O2 Flow Rate 3 12/21/22 16:44 BMI result Body Mass Index 36.3 Const: General: comfortable, no acute distress and alert Orientation/consciousness: patient oriented x3 Chest: Other: small hematoma to upper flap; flaps viable, no erythema, abhi intact; SHARYN with sanguineous output Resp: Effort & Inspection: normal respiratory effort Skin: General skin exam: no rashes or lesions noted Neuro: General: patient oriented x3 and moves all extremities DS: Data Data Completed and Pending Pending studies at discharge: Pending at discharge 12/21/22 13:52 Surgical [PTH] Routine Discharge Plan Discharge Patient Disposition: Home Health Service Referrals: [facility] [Outside] - 1 Week Serjio Teran MD [Physician] - 1 Week Po,Concepción Browne MD [Primary Care Provider] - 1 Week Discharge Medications: New oxycodone 5 mg tablet 5 mg PO Q4H PRN (Reason: pain (scale score 7-10)) Qty: 30 0RF Rx Instructions: Partial Fill upon patient request. docusate sodium [Colace] 100 mg capsule 100 mg PO BID PRN (Reason: constipation) Qty: 30 0RF Continued (DME) pen needle, diabetic [BD Ultra-Fine Micro Pen Needle] 32 gauge x 1/4 needle See Rx Instructions miscellaneous .MEDSUPPLY Qty: 100 2RF Rx Instructions: as directed with insulin (DME) blood-glucose meter [FreeStyle Lite Meter] Kit See Rx Instructions .ROUTE .MEDSUPPLY Qty: 1 0RF Rx Instructions: As directed (DME) FreeStyle Vinnie 14 Day Sensor Kit See Rx Instructions .ROUTE .MEDSUPPLY Qty: 6 3RF Rx Instructions: As directed (DME) FreeStyle Vinnie 14 Day Herod Misc See Rx Instructions .ROUTE .MEDSUPPLY Qty: 2 0RF Rx Instructions: As directed cholecalciferol (vitamin D3) 50 mcg (2,000 unit) capsule 50 mcg PO DAILY Qty: 90 2RF insulin glargine [Lantus Solostar U-100 Insulin] 100 unit/mL (3 mL) insulin pen 20 unit subcut DAILY Qty: 15 3RF paroxetine HCl 20 mg tablet 20 mg PO DAILY 90 Days Qty: 90 1RF insulin aspart U-100 [Novolog FlexPen U-100 Insulin] 100 unit/mL (3 mL) insulin pen 10 unit subcut TID Qty: 15 4RF alcohol swabs [Alcohol Prep Pads] Pads, Medicated See Rx Instructions topical .COMPLEX Qty: 200 6RF Rx Instructions: topically tests 4 X/day; aspirin [Adult Aspirin Regimen] 81 mg tablet,delayed release (DR/EC) 81 mg PO DAILY 90 Days Qty: 90 3RF ropinirole 1 mg tablet 1 mg PO BID Qty: 180 1RF solifenacin [Vesicare] 5 mg tablet 5 mg PO DAILY Qty: 90 2RF albuterol sulfate 2.5 mg /3 mL (0.083 %) solution for nebulization 2.5 mg inhalation Q4-6H PRN (Reason: Shortness Of Breath Or Wheezing) Qty: 180 1RF clonidine HCl 0.1 mg tablet 0.1 mg PO BEDTIME Qty: 90 3RF (DME) lancets [FreeStyle Lancets] 28 gauge misc See Rx Instructions .ROUTE .COMPLEX Qty: 100 3RF Dose Instruction: USE TO TEST BLOOD SUGAR THREE TIMES DAILY Rx Instructions: USE TO TEST BLOOD SUGAR THREE TIMES DAILY albuterol sulfate [Ventolin HFA] 90 mcg/actuation HFA aerosol inhaler 1 puff inhalation QID Qty: 8.5 0RF clotrimazole 1 % cream 1 appl topical BID 28 Days Qty: 45 1RF triamcinolone acetonide 0.1 % cream 1 appl topical DAILY 3RF Rx Instructions: apply to affected area (DME) FreeStyle Lite Strips Strip See Rx Instructions .ROUTE .MEDSUPPLY Qty: 100 3RF Rx Instructions: check BS 3X/DAY cyanocobalamin (vitamin B-12) 1,000 mcg Tablet 1,000 mcg PO DAILY ascorbic acid (vitamin C) [Vitamin C] 500 mg Tablet 500 mg PO DAILY ferrous sulfate [Iron (ferrous sulfate)] 325 mg (65 mg iron) Tablet 325 mg PO FR@0900 zinc gluconate 50 mg Tablet 50 mg PO DAILY ondansetron 8 mg Tablet,Disintegrating 8 mg PO Q8H Qty: 50 6RF acetaminophen 325 mg capsule 325 mg PO QID PRN (Reason: Pain) (DME) compress.stocking,knee,reg,lrg Misc See Rx Instructions .Route Qty: 12 0RF Rx Instructions: As directed 20-30 mm HG glipizide 10 mg tablet 10 mg PO BID 90 Days Qty: 180 1RF amlodipine 5 mg tablet 5 mg PO BID 90 Days Qty: 180 3RF Anoro Ellipta 62.5-25 mcg/actuation blister with device 1 inh inhalation DAILY Qty: 60 3RF varenicline [Chantix Starting Month Box] 0.5 mg (11)- 1 mg (42) tablets,dose pack See Rx Instructions PO PER PKG DIR Qty: 53 0RF Rx Instructions: PO PER PKG DIR Discontinued oxycodone 5 mg Tablet 5 mg PO Q6H PRN (Reason: Breakthrough Pain, Moderate) Qty: 60 0RF Rx Instructions: Partial Fill upon patient request. Discharge Orders: Discharge Order (Routine); Ordered 12/23/22 Ordered By: Zoe Chaudhary Diet: Diabetic diet Activity on Discharge: No heavy lifting Activity Restrictions/Additional Instructions: Dry dressings daily to incision and the upper flap If the incision area is tender, you may apply an ice pack for short intervals (No more than 20 minutes on, followed by at least 20 minutes off). Do not apply heat. Do not use creams, lotions, or topical antibiotics unless instructed to do so by your surgeon. These can cause infection or allergic reaction. Ok to shower. NO HEAVY LIFTING (>10lbs) with your left arm. SHARYN drain care- empty drain BID and as needed. Record output. Bring record to follow up appointment. Follow up in office. ([phone]) next week Call Your Doctor If: ? ? -Your temperature exceeds 101.5? F? ? ? -You experience excessive pain or swelling ? ? -You have an unexpected reaction to medication ? ? -You have excessive bleeding ? ? -You experience continued vomiting/nausea ? ? -Your incision begins to separate ?? ? -Your incision shows signs of infection such as increased redness, swelling, excessive pain, drainage (light blood or clear fluid is normal) or heat Discharge Date/Time: 12/23/22 11:21
[2023-01-03 11:49] LABS: Glucose, Whole Blood 203 mg/dL (60-115)
== END 2022-12-23 11:21 | disposition home health service (06) ==
LOC: HO.SSS 08:24 → HO.S3 13:49
PROVIDERS: Anesthesiology; Physician Assistant Surgical; PCP Internal Medicine; Visit Provider Surgery
PROC: (CPT 19303; 2022-12-21 11:30)
DX: C50.912 Malignant neoplasm of unspecified site of left female breast (principal); Z17.0 Estrogen receptor positive status [ER+]; C77.3 Secondary and unspecified malignant neoplasm of axilla and upper limb lymph nodes; I10 Essential (primary) hypertension; E78.00 Pure hypercholesterolemia, unspecified; D35.00 Benign neoplasm of unspecified adrenal gland; E11.65 Type 2 diabetes mellitus with hyperglycemia; Z79.4 Long term (current) use of insulin; J44.9 Chronic obstructive pulmonary disease, unspecified; Z92.21 Personal history of antineoplastic chemotherapy; E66.9 Obesity, unspecified; Z68.35 Body mass index [BMI] 35.0-35.9, adult; Z79.899 Other long term (current) drug therapy; Z88.0 Allergy status to penicillin; Z88.8 Allergy status to other drugs, medicaments and biological substances; F17.210 Nicotine dependence, cigarettes, uncomplicated; Z20.822 Contact with and (suspected) exposure to COVID-19
CPT/HCPCS: 19303; 38525; 19285; 36415; 78195; 82947; 85025; 87635; 88305; 88307; 88329; 94640; 94664; A4648; A9520; J1170; J1643; J2250; J2270; J2405; J2795; J3010; J3371

== ENCOUNTER → 2022-12-30 14:06 | Outpatient (BNVA) | payer OTHER, SELFPAY | PROVIDERS: PCP Internal Medicine; Visit Provider Surgery | DX: Z13.89 Encounter for screening for other disorder (principal) ==

== ENCOUNTER → 2023-01-03 11:11 | Outpatient (BNVA) | payer OTHER, SELFPAY | PROVIDERS: PCP Internal Medicine; Visit Provider Surgery | DX: Z13.89 Encounter for screening for other disorder (principal) ==

== ENCOUNTER → 2023-01-05 09:25 | Outpatient (BNVA) | payer OTHER, SELFPAY | PROVIDERS: PCP Internal Medicine; Visit Provider Surgery | DX: Z13.89 Encounter for screening for other disorder (principal) ==

== ENCOUNTER 2023-01-07 13:54 | Outpatient (REF) | payer OTHER, SELFPAY ==
--- NOTE | ~2023-01-07 | MM_ITS ---
EXAMINATION: BONE DENSITOMETRY CLINICAL INDICATION: Osteopenia. Breast cancer. COMPARISON: None (current study represents initial baseline exam). TECHNIQUE: Using a [employer] DXA System (software version: 13.1) manufactured by [employer], dual-energy x-ray absorptiometry was performed of the lumbar spine and left hip. The images are of good technical quality. Summary results are attached. FINDINGS: AP SPINE L1-L4: BMD 1.145 g/cm2, Z-score 0.1, T-score -0.3, normal. LEFT FEMUR, NECK: BMD 0.894 g/cm2, Z-score -0.4, T-score -1.0, normal. LEFT FEMUR, TOTAL: BMD 0.881 g/cm2, Z-score -0.7, T-score -1.0, normal. IDENTIFIED RISK FACTORS: Menopause, family history (parent hip fracture), osteoporosis, recurrent falls, tobacco use (current smoker). HISTORY OF FRACTURE: None listed. MEDICATIONS: Calcium, vitamin D. MM/XR DEXA axial skeleton IMPRESSION: 1. DIAGNOSIS: Normal bone density based on the lowest T-score value of -1.0 in the femur neck and total femur applying World Health Organization criteria. 2. 10-YEAR FRACTURE RISK PREDICTION, FRAX: According to the guidelines, FRAX calculation should only be performed on patients in the osteopenia bone density category. Therefore, FRAX was not performed on this patient. 3. Treatment Recommendations: NOF guidelines recommend consideration for treatment in postmenopausal women and men age 50 and older presenting with the following: -A hip or vertebral (clinical or morphometric) fracture. -T-score less than or equal to -2.5 at the femoral neck or spine after appropriate evaluation to exclude secondary causes. -Low bone mass at the hip or spine and a 10-year fracture probability by FRAX of greater than or equal to 3% for hip fracture or greater than or equal to 20% for major osteoporotic fracture based on the [place] adapted WHO algorithm. 4. Other Recommendations: All treatment decisions require clinical judgment and consideration of individual patient factors, including patient preferences, comorbidities, previous drug use, risk factors not captured in the FRAX model (e.g. frailty, falls, vitamin D deficiency, increased bone turnover, interval significant decline in bone density) and possible under or overestimation of fracture risk by FRAX. FUTURE SCAN RECOMMENDATION: People with diagnosed cases of osteoporosis or at high risk for fracture should have regular bone mineral density tests. For patients eligible for Medicare, routine testing is allowed once every 2 years. The testing frequency can be increased to one year for patients who have rapidly progressing disease, those who are receiving or discontinuing medical therapy to restore bone mass, or have additional risk factors.
== END 2023-01-07 13:55 | disposition home or self-care (01) ==
LOC: HO.MAMMO 13:54
PROVIDERS: PCP Internal Medicine; Visit Provider Internal Medicine Medical Oncology
DX: Z13.820 Encounter for screening for osteoporosis (principal); M85.80 Other specified disorders of bone density and structure, unspecified site; Z78.0 Asymptomatic menopausal state
CPT/HCPCS: 77080

== ENCOUNTER → 2023-01-13 12:32 | Outpatient (BNVA) | payer OTHER, SELFPAY | PROVIDERS: PCP Internal Medicine; Referring Provider Internal Medicine; Visit Provider Surgery | DX: Z13.89 Encounter for screening for other disorder (principal) ==

== ENCOUNTER → 2023-01-19 13:22 | Outpatient (BNVA) | payer OTHER, SELFPAY | PROVIDERS: PCP Internal Medicine; Visit Provider Surgery | DX: Z13.89 Encounter for screening for other disorder (principal) ==

== ENCOUNTER 2023-01-25 15:13 | Outpatient (REF) | payer OTHER, SELFPAY ==
--- NOTE | ~2023-01-25 | PE_ITS ---
EXAMINATION: Fluorine-18 FDG PET/CT Scan CLINICAL INDICATION: Invasive ductal carcinoma left breast at 12:00 in the periareolar region with ipsilateral metastatic left axillary lymph node. Restaging. PROCEDURE: 63 minutes following the intravenous administration of 21.5 mCi of fluorine 18 FDG, images from the base of the skull to the mid thighs were obtained using a combined PET/CT scanner with CT scan based attenuation correction. No intravenous contrast was administered. Transverse, coronal, sagittal, and volume reconstruction projections were obtained. The patient's blood glucose as determined by a finger stick, was 191 mg/dl immediately prior to injection. The radiotracer was injected intravenously through right antecubital superficial vein, without any complications. Total CT exam dose-length product 910.64 mGy-cm * These CT images were obtained using dose optimization techniques as appropriate, variously including the following: Automated exposure control * Adjustment of mA and/or kV according to patient size (this includes techniques or standardized protocols for targeted exams where dose is matched to indication/reason for exam; i.e. extremities or head) * Use of iterative reconstruction technique COMPARISON: PET CT study done on 06/08/2022. FINDINGS: NECK AND VISUALIZED HEAD: No suspicious focal FDG avid disease. Right-sided Port-A-Cath is noted with its tip seen projecting at the cavoatrial junction. THORAX: Postsurgical changes of left-sided mastectomy is noted. Diffuse nonspecific skin thickening and mild FDG avidity at the surgical bed likely represent postsurgical changes, without any focal FDG avidity. Specifically, no FDG avid axillary or internal mammary lymphadenopathy present. No FDG avid suspicious lung nodule and/or mass or mediastinal or hilar lymphadenopathy or pleural or pericardial effusion. ABDOMEN AND PELVIS: No FDG avid focal liver or adrenal disease. Both adrenal glands appear thickened and nodular and hypodense without any FDG avidity, unchanged. Please refer to the report from the dedicated CT of the adrenal glands performed on 07/15/2022 for further full details. MUSCULOSKELETAL: No suspicious focal osseous lesion. No significant change. Periarticular increased radiotracer activities are present at both shoulders (right greater the left). VASCULAR: Diffuse atherosclerotic disease of the aorta and its branches. No evidence of aneurysm. PET/PET CT fusion skull to thigh IMPRESSION: 1. Postsurgical changes of left-sided mastectomy. Mildly FDG avid skin thickening at the surgical bed is most consistent with postsurgical changes. 2. No evidence of any metastatic disease. Previously documented, clinically known bilateral adrenal hypodense masses appear stable. Please refer to the report of the dedicated CT of the adrenal glands performed on 07/15/2022 for further full details.
== END 2023-01-25 15:14 | disposition home or self-care (01) ==
LOC: HO.PET 15:13
PROVIDERS: PCP Internal Medicine; Visit Provider Internal Medicine Medical Oncology
DX: Z13.89 Encounter for screening for other disorder (principal)

== ENCOUNTER → 2023-02-04 12:37 | Outpatient (BNVA) | payer OTHER, SELFPAY | PROVIDERS: PCP Internal Medicine; Visit Provider Internal Medicine Endocrinology, Diabetes & Metabolism | DX: E11.65 Type 2 diabetes mellitus with hyperglycemia (principal); E04.1 Nontoxic single thyroid nodule; D35.00 Benign neoplasm of unspecified adrenal gland | CPT/HCPCS: 82947; 83036; 99212 ==

== ENCOUNTER 2023-02-10 12:34 | Outpatient (REF) | payer OTHER, SELFPAY ==
--- NOTE | ~2023-02-10 | US_ITS ---
EXAMINATION: US THYROID CLINICAL INFORMATION: Nontoxic multinodular goiter. COMPARISON: Ultrasound soft tissue head/neck thyroid dated 01/07/2012. TECHNIQUE: Linear transducer grayscale and color Doppler examination with attention to the region of the thyroid. FINDINGS: SIZE: Measurements of the thyroid lobes and nodules are given in sagittal, anteroposterior and transverse dimensions respectively. Right Thyroid Lobe: 4.1 x 2.0 x 1.9 cm, volume 8.1 mL. Previously 4.5 x 1.6 x 1.1 cm, volume 4.1 mL. Parenchyma: The gland echotexture is homogeneous. Thyroid vascularity is normal. Left Thyroid Lobe: 3.4 x 1.4 x 1.4 cm, volume 3.5 mL. Previously 3.7 x 0.8 x 1.2 cm, volume 1.9 mL. Parenchyma: The gland echotexture is homogeneous. Thyroid vascularity is normal. Isthmus: 0.9 cm in maximum AP dimension. Previously 0.6 cm. Estimated total number of nodules greater than or equal to 1 cm: 2. Clock And Watch Hands Dipper nodules are described as follows: 1. Location: Left isthmus. Size: 1.2 x 1.2 x 0.8 cm, volume 0.6 mL. Previously: 0.7 x 0.4 x 0.6 cm, volume 0.09 mL. Nodule characteristics: Composition: Solid (2). Echogenicity: Isoechoic (1). Shape: Taller than wide (3). Margins: Smooth (0). Echogenic Foci: None (0). ACR TI-RADS total points: 6. ACR TI-RADS category: 4. Significant change in size (>/= 20% in 2 dimensions and minimal increase of 2 mm or 50% or greater increase in volume): Slight increase in volume. Change in features: None. Change in ACR TI-RADS risk category: Not available. 2. Location: Right mid. Size: 0.9 x 0.9 x 1.3 cm, volume 0.6 mL. Previously: 0.8 x 0.6 x 0.9 cm, volume 0.2 mL. Nodule characteristics: Composition: Solid (2). Echogenicity: Isoechoic (1). Shape: Not taller than wide (0). Margins: Smooth (0). Echogenic Foci: None (0). ACR TI-RADS total points: 3. ACR TI-RADS category: 3. Significant change in size (>/= 20% in 2 dimensions and minimal increase of 2 mm or 50% or greater increase in volume): None. Change in features: None. Change in ACR TI-RADS risk category: Not available. 3. Location: Right inferior. Size: 1.5 x 1.4 x 1.3 cm, volume 1.5 mL. Previously: 1.6 x 1.1 x 1.0 cm, volume 0.9 mL. Nodule characteristics: Composition: Solid (2). Echogenicity: Hyperechoic (1). Shape: Taller than wide (3). Margins: Smooth (0). Echogenic Foci: None (0). ACR TI-RADS total points: 6. ACR TI-RADS category: 4. Significant change in size (>/= 20% in 2 dimensions and minimal increase of 2 mm or 50% or greater increase in volume): None. Change in features: None. Change in ACR TI-RADS risk category: None available. NODES: No lymphadenopathy is seen in the tissue surrounding the thyroid gland. US/US thyroid IMPRESSION: Slightly enlarged right thyroid lobe. There are 3 thyroid nodules visualized. There is a left isthmus nodule with a TI-RADS category 4. Recommend followup as per TI-RADS recommendation. ACR TI-RADS RECOMMENDATIONS: TR1 (0 point) and TR2 (2 points): No FNA or followup. TR3 (3 points): FNA if more than or equal 2.5 cm in maximum dimension, followup in 1, 3 and 5 years if 1.5 to 2.4 cm in maximum dimension. TR4 (4-6 points): FNA if more than or equal to 1.5 cm in maximum dimension, followup in 1, 2, 3 and 5 years if 1 to 1.4 cm in maximum dimension. TR5 (more than or equal to 7 points): FNA is more than or equal to 1 cm in maximum dimension, followup.
== END 2023-02-10 12:35 | disposition home or self-care (01) ==
LOC: HO.US 12:34
PROVIDERS: PCP Internal Medicine; Visit Provider Internal Medicine Endocrinology, Diabetes & Metabolism
DX: E04.2 Nontoxic multinodular goiter (principal)
CPT/HCPCS: 76536

== ENCOUNTER → 2023-04-14 11:00 | Outpatient (BNVA) | payer OTHER, SELFPAY | PROVIDERS: PCP Internal Medicine; Visit Provider Surgery | DX: C50.912 Malignant neoplasm of unspecified site of left female breast (principal); Z90.12 Acquired absence of left breast and nipple | CPT/HCPCS: 99212 ==

== ENCOUNTER → 2023-05-13 12:09 | Outpatient (BNVA) | payer OTHER, SELFPAY | PROVIDERS: PCP Internal Medicine; Visit Provider Internal Medicine Endocrinology, Diabetes & Metabolism | DX: E11.65 Type 2 diabetes mellitus with hyperglycemia (principal); E04.1 Nontoxic single thyroid nodule; D35.00 Benign neoplasm of unspecified adrenal gland | CPT/HCPCS: 82947; 83036; 99212 ==

== ENCOUNTER 2023-06-24 12:48 | Outpatient (REF) | payer OTHER, SELFPAY ==
--- NOTE | ~2023-06-24 | US_ITS ---
EXAMINATION: ULTRASOUND-GUIDED THYROID NODULE BIOPSY CLINICAL INDICATIONS: Right middle lobe and right lobe nodules and left isthmus nodules. On previous ultrasound abnormal TI-RADS total points in right inferior and left isthmus nodules. COMPARISON: Ultrasound thyroid 02/16/2023. TECHNIQUE: Following explaining ultrasound-guided thyroid nodule biopsy procedure, benefits and risk, a written consent was obtained. The patient was placed supine on ultrasound stretcher and preliminary ultrasound imaging was performed of the right and left nodule. An optimal site was selected along the anterior skin for right inferior and left isthmus nodules with a marker placed. The marked area of the anterior neck was cleaned and draped in the usual sterile manner with 2% chlorhexidine solution. Under sterile ultrasound guidance initially the right inferior pole echogenic largest right lower pole nodule was biopsied. Subsequently left mid isthmus nodule was also biopsy. Postprocedure complete hemostasis achieved at puncture site. Sterile Band-Aid applied postprocedure. FINDINGS: There is a heterogeneous-appearing thyroid gland with 2 nodules in the right midpole and right lower pole respectively. The right lower pole nodule was biopsied x 4 with 25-gauge needle attached to the syringes. Subsequently the left midpole isthmus nodule was biopsied with 5 passes. Preliminary results from pathologist revealed adequate tissue sampling. US/US guided fine needle asp IMPRESSION: Successful fluoroscopy-guided right lower pole and mid left isthmus thyroid nodule biopsy performed.
[2023-06-24] MEDS: Lidocaine HCl 1 % MPF 5 ML VIAL SUBCUT (14:57)
== END 2023-06-24 12:49 | disposition home or self-care (01) ==
LOC: HO.US 12:48
PROVIDERS: Visit Provider Internal Medicine Endocrinology, Diabetes & Metabolism
DX: E04.1 Nontoxic single thyroid nodule (principal)
CPT/HCPCS: 10005; 88172; 88173; 88177; 88305

== ENCOUNTER → 2023-06-24 12:48 | Outpatient (BNV) | payer OTHER, SELFPAY | PROVIDERS: Visit Provider Radiology Diagnostic Radiology | DX: E04.2 Nontoxic multinodular goiter (principal) | CPT/HCPCS: 10005; 10006 ==

== ENCOUNTER → 2023-06-27 09:43 | Outpatient (REF) | payer OTHER, SELFPAY ==
--- NOTE | 2023-06-27 09:54 | CA_ITS ---
Transthoracic Echocardiogram Patient (Last, First, Middle): Sarah Ervin A Gender: Female Date of : 1960 Age: 63 Procedure Date: 06/27/2023 Procedure Type: Transthoracic Echocardiogram Location: OP Height: 162.56 cm Weight: 89.81 kg BSA: 1.95 m2 Heart Rate: 86 bpm BP: 128 / 80 mmHg Stopperer Assembler: JAMESON Referring MD: Madina Mitchell MD Symptoms: follow up on EF,ON CHEMO Study Quality: Technically Difficult ECG Rhythm: Sinus Conclusions: - The left ventricular systolic function is normal. The visually estimated ejection fraction is between 55-60%. Findings Left Ventricle Normal left ventricular cavity size. The left ventricular systolic function is normal. The visually estimated ejection fraction is between 55-60%. There is no evidence of regional wall motion abnormalities. There is moderate septal asymmetric hypertrophy. LV peak GLS -12.7%; diminished, but unchanged on serial studies. Venous The inferior vena cava is normal in size and collapses greater than 50% with inspiration. Prior Study Comparison No significant change compared to prior study dated: 11/11/2022. Measurements 2D Linear Measurements IVSd: 1.45 0.6-0.9/0.6-1.0 cm LVIDd: 3.26 3.9-5.3/4.2-5.9 cm LVIDd Index: 1.67 2.4-3.2/2.2-3.1 cm/m2 LVIDs: 2.11 2.0-3.6 cm LVPWd: 1.14 0.7-1.1 cm LA Diam: 3.40 2.7-3.8/3.0-4.0 cm LAIDs Index: 1.74 1.5-2.3 cm/m2 LV Mass: 172.18 67-162/88-224 g LV Mass Index: 88.30 43-95/49-115 g/m2 LVOT Diam: 2.00 3.0+(-)1.3 cm 2D Systolic Function EF 4C: 52.00 >55% EF 2C: 58.00 >55% EF BiP: 54.30 >55% LVOT LVOT Pk John: 0.91 LVOT Mn John: 0.62 LVOT VTI: 0.17 LVOT Pk Grad: 3.00 LVOT Mn Grad: 2.00 LVOT Diam: 2.00 LVOT Area: 3.14 Updated in Other Vendor System with Status of Final Aditya Rai MD electronically signed on 06/27/2023 3:19:55 PM with status of Final
== END ==
LOC: HO.CARD 09:43
PROVIDERS: PCP Internal Medicine; Visit Provider Internal Medicine Medical Oncology
DX: C50.919 Malignant neoplasm of unspecified site of unspecified female breast (principal)
CPT/HCPCS: 93308; 93356

== ENCOUNTER → 2023-06-27 09:54 | Outpatient (BNV) | payer OTHER, SELFPAY | PROVIDERS: PCP Internal Medicine; Visit Provider Internal Medicine | DX: Z51.81 Encounter for therapeutic drug level monitoring (principal) | CPT/HCPCS: 93308 ==

== ENCOUNTER 2023-07-15 13:13 | Outpatient (AMB) | payer OTHER, SELFPAY ==
[2023-07-15 13:18] VITALS: BP 132/80; PULSE 92
--- NOTE | 2023-07-15 13:18 | MHC.OFFVIS ---
Intake Vital Signs 07/15/23 13:18 Height 5 ft 4 in BP 132/80 Blood Pressure Location Rt brachial Position Sitting Pulse 92 Pulse Source Pulse Oximeter Intake Visit Reasons: FNA Results/DM Intake Note: Patient presents today to follow up on Type Diabetes Mellitus and FNA results. Patient receives DME supplies through: Last Diabetic Eye exam: Over 2 years Last Podiatry Visit: None Random Glucose: 179mg/dl HgA1C: 7.5% 05/13/23 Manufacturing Technician Required: No Accompanied by: Daughter Allergies diclofenac [From Voltaren] Allergy (Severe, Verified 07/15/23 13:25) enlarged liver lisinopril [From Zestril] Allergy (Severe, Verified 07/15/23 13:25) fluid in lung Penicillins [PENICILLINS] Allergy (Intermediate, Verified 07/15/23 13:25) Facial Swelling oxybutynin [Oxybutynin] Adverse Reaction (Severe, Verified 07/15/23 13:25) body twitching metformin Adverse Reaction (Intermediate, Verified 07/15/23 13:25) Diarrhea Medication List - Last Reconciled 07/15/23 by Ravindra Pryor MD acetaminophen 325 mg PO QID PRN albuterol sulfate 2.5 mg (3 mL) inhalation Q4-6H PRN albuterol sulfate 90 mcg/actuation 1 puff inhalation QID alcohol swabs (Alcohol Prep Pads) topically tests 4 X/day; amlodipine 5 mg PO BID 90 days ascorbic acid (vitamin C) (Vitamin C) 500 mg PO DAILY aspirin (Adult Aspirin Regimen) 81 mg PO DAILY 90 days blood sugar diagnostic (FreeStyle Lite Strips) check BS 3X/DAY blood-glucose meter (FreeStyle Lite Meter kit) As directed cholecalciferol (vitamin D3) 50 mcg PO DAILY clonidine HCl 0.1 mg PO BEDTIME clotrimazole 1% 1 appl topical BID 4 weeks collagenase clostridium histo. (Santyl) 1 appl topical DAILY cyanocobalamin (vitamin B-12) 1,000 mcg PO DAILY docusate sodium (Colace) 100 mg PO BID duloxetine 20 mg PO BID ferrous sulfate (Iron (ferrous sulfate)) 325 mg PO FR@0900 fluticasone propionate 50 mcg/actuation (Flonase Allergy Relief) 1 spray intranasal BID insulin glargine (Lantus Solostar U-100 Insulin) 24 units (0.24 mL) subcut DAILY lancets (FreeStyle Lancets) USE DIRECTED THREE TIMES A DAY letrozole 2.5 mg PO DAILY lorazepam 0.5 mg PO BEDTIME PRN Novolog FlexPen U-100 Insulin (insulin aspart U-100) 10 units before breakfast and lunch and 14 units before dinner subcutaneously 3 times a day; NS ondansetron 8 mg PO Q8H oxycodone 5 mg PO Q8H PRN pen needle, diabetic (BD Ultra-Fine Micro Pen Needle) as directed with insulin quetiapine 50 mg PO BEDTIME ropinirole 1 mg PO BID solifenacin (Vesicare) 5 mg PO DAILY triamcinolone acetonide 0.1% 1 appl topical DAILY umeclidinium-vilanterol 62.5-25 mcg/actuation (Anoro Ellipta) 1 inh inhalation DAILY zinc gluconate 50 mg PO DAILY HPI HPI Comments History of Present Illness Details 63 YO F who is seen in consultation for T2DM at the request of PCP. She had previously based seen by myself for thyroid nodules as well as an adrenal mass. Workup showed elevated urinary normetanephrines. She is also status post FNA of right lower and isthmus nodule with benign cytology Initially diagnosed with T2DM in 10 yrs ago . Was initially started on treatment with Glipizide . Current regimen metformin ER 500 mg QD Couldn't tolerate BID Lantus 24 units Novolog 10 units with breakfast and lunch and 14 units with dinner Vinnie download shows she is using the Vinnie 97% of the time. Average glucose is 172 with G mi of 7.4% per 65% range with 35% hyperglycemia and no hypoglycemia. Castano shows increased point care after dinner . Family history of T2DM in Father . Has eyes checked yearly, last eye exam , denies retinopathy. has neuropathy,,not sees podiatry. Denies nephropathy, not on MO/ARB. Does not HLD, Not on statin. Denies CAD. Denies hypoglycemia Not Had diabetes education. [facility], [facility] Medical History Adrenal adenoma Arthritis Cervical cancer screening COPD (chronic obstructive pulmonary disease) DCIS (ductal carcinoma in situ) Diabetes Ductal carcinoma in situ (DCIS) of left breast Effusion of left knee Encounter to discuss test results Fall Family history of prostate cancer in father Generalized anxiety disorder History of anal fissures History of palpitations History of short term memory loss History of unsteady gait Hx of renal calculi Hypercholesterolemia Hypertension Invasive ductal carcinoma of left breast Leg swelling Low back pain Mild heartburn Peripheral vascular disease Port-A-Cath in place Shortness of breath Smoker Thyroid nodule Type 2 diabetes mellitus with hyperglycemia Urinary incontinence Vaginal yeast infection Vision changes Weakness Surgical History H/O total mastectomy of left breast (12/21/22) History of appendectomy History of biopsy History of bladder surgery History of cholecystectomy History of endometrial ablation History of left knee replacement History of tonsillectomy Hx of tubal ligation Family History Mother History of breast cancer Father Prostate CA Brother No problems noted. Brother No problems noted. Daughter No problems noted. Social History Household Members: Family Household Members Other:: Daughter Housing: House Are you a primary group care worker to a significant other at home: Yes () Do you presently have visiting nurse or other home services: No Alcohol intake: current Alcohol intake frequency: holidays/special occasions only Patient Tobacco Use Status: Current everyday Tobacco user Tobacco use type: Cigarette Cigarette Packs Per Day: 1.25 Cigarettes Per Day: 25.0 Years Smoked: 40 e-Cigarette/Vaping Use: Never Used Second Hand Smoke Exposure: No service: No Current occupational status: disabled Cognitive needs: No Hearing needs: No Vision needs: Yes Female Reproductive History Menstrual Age of Menarche: 10 Physical Exam Vital Signs: Last Vital Signs Pulse 92 07/15/23 13:18 BP 132/80 07/15/23 13:18 Absence of Cushingoid features. Absence of acromegalic features. Neck exam reveals nl size thyroid about 15 gms. No thyroid nodules palpable. No carotid bruits present. Lungs CTA. Heart S1 S2, Reg R/R. No M/R/ G. Skin exam reveals absence of vitiligo or acanthosis nigricans. Abdominal exam reveals Soft NT/ND with NA BS. No organomegaly present. Neck Other: . Extrem Other: Visual exam of foot performed. No ulcerations or open lesions. There is a pleuritic papular rash on both lower extremities and left shoulder. No onchomycosis, no callouses.Pulses 2 + distally Sensation intact to monofilament exam. Vibratory sensation sensed is decreased with 128 Hz tuning fork Assessment & Plan Assessment & Plan (1) Type 2 diabetes mellitus with hyperglycemia: Code(s): E11.65 - Type 2 diabetes mellitus with hyperglycemia Plan: This 63-year-old white female with history of type 2 diabetes being treated with sub maximal doses of metformin and and basal-bolus insulin with improved good glycemic control and no known microvascular or macrovascular complications Plan is to increase the NovoLog to 18 units prior to supper and 24 units if still hyperglycemic after dinner . Will also check lipid profile and microalbumin to creatinine ratio. We may want to use a G LP 1 agonist in the future after chemotherapy is completed (2) Adrenal adenoma: Code(s): D35.00 - Benign neoplasm of unspecified adrenal gland Plan: History of bilateral adrenal adenomas. Previous workup showed elevated urinary normetanephrines otherwise normal workup. Lesion appeared to have low-density and concern for malignancy was low. Repeat imaging not show any change in the size or characteristics of masses Plan is to re check plasma metanephrines . Will consider performing a 1 mg dexamethasone suppression test next visit (3) Thyroid nodule: Code(s): E04.1 - Nontoxic single thyroid nodule Plan: She has a multinodular goiter Status post FNA of right thyroid nodule in the past with benign cytology. She is clinically and biochemically euthyroid Plan is to consider FNA of left thyroid nodule. Patient sent to Interventional Radiology (4) Type 2 diabetes mellitus with hyperglycemia: Code(s): E11.65 - Type 2 diabetes mellitus with hyperglycemia Orders: Orders Cortisol Random 1 Week D35.00 - Benign neoplasm of unspecified adrenal gland Dexamethasone 1 Week D35.00 - Benign neoplasm of unspecified adrenal gland Medications: New dexamethasone 1 mg PO ONCE 1 tab 0RF Discontinued ondansetron 8 mg PO Q8H 50 tabs 6RF oxycodone Partial Fill upon patient request. 5 mg PO Q8H PRN 50 tabs 0RF Breakthrough Pain, Moderate ondansetron 8 mg PO Q8H 50 tabs 6RF oxycodone Partial Fill upon patient request. 5 mg PO Q8H PRN 50 tabs 0RF Breakthrough Pain, Moderate oxycodone Partial Fill upon patient request. 5 mg PO Q8H PRN 50 tabs 0RF Breakthrough Pain, Moderate oxycodone Partial Fill upon patient request. 5 mg PO Q8H PRN 50 tabs 0RF Breakthrough Pain, Moderate ondansetron 8 mg PO Q8H 50 tabs 6RF oxycodone Partial Fill upon patient request. 5 mg PO Q8H PRN 50 tabs 0RF Breakthrough Pain, Moderate Coding Level of Care Code Est Pt Level 4 (63974) Diagnoses Type 2 diabetes mellitus with hyperglycemia E11.65 Adrenal adenoma D35.00 Thyroid nodule E04.1
[2023-07-15 14:43] LABS: Glucose, Whole Blood 179 mg/dL (60-115)
== END 2023-07-15 14:21 | disposition home or self-care (01) ==
PROVIDERS: PCP Internal Medicine; Visit Provider Internal Medicine Endocrinology, Diabetes & Metabolism
DX: E11.65 Type 2 diabetes mellitus with hyperglycemia (principal); D35.00 Benign neoplasm of unspecified adrenal gland; E04.1 Nontoxic single thyroid nodule
CPT/HCPCS: 99214

== ENCOUNTER → 2023-07-15 13:13 | Outpatient (BNVA) | payer OTHER, SELFPAY | PROVIDERS: PCP Internal Medicine; Visit Provider Internal Medicine Endocrinology, Diabetes & Metabolism | DX: E11.65 Type 2 diabetes mellitus with hyperglycemia (principal); D35.00 Benign neoplasm of unspecified adrenal gland; E04.1 Nontoxic single thyroid nodule; Z83.3 Family history of diabetes mellitus; Z80.42 Family history of malignant neoplasm of prostate | CPT/HCPCS: 82947; 99212 ==

== ENCOUNTER 2023-07-21 07:54 | Outpatient (REF) | payer OTHER, SELFPAY ==
--- NOTE | ~2023-07-21 | CT_ITS ---
EXAMINATION: CT ABDOMEN WITHOUT CONTRAST CT CHEST WITH CONTRAST CT ABDOMEN AND PELVIS WITH CONTRAST CLINICAL INFORMATION: Follow-up pulmonary infiltrate on previous chest CT; follow-up bilateral adrenal masses; history of breast cancer COMPARISON: PET/CT 01/25/2023; CT 09/04/2022 TECHNIQUE: Multidetector volumetric CT imaging of the abdomen was performed prior to administration of intravenous contrast, followed by multidetector volumetric CT imaging of the chest, abdomen and pelvis was obtained after the administration of 85 mL of Omnipaque 350 intravenous contrast without immediate adverse reactions. Delayed imaging was performed through the abdomen. Axial MIP volume rendering provided. Sagittal and coronal reformatted images were obtained. This CT examination was performed using dose optimization techniques as appropriate, variously including the following: *Automated exposure control *Adjustment of mA and/or kV according to patient size (this includes techniques or standardized protocols for targeted exams where dose is matched to indication/reason for exam; i.e. extremities or head) *Use of iterative reconstruction technique DLP: 1045 mGy-cm FINDINGS: LAUNDRY TUB MAKER: No diagnostic abnormality. LUNGS: The lungs are predominantly clear. There is mild atelectasis at the right lung base. No airspace consolidation is seen. There is a 3.5 mm nodule in the posterior medial right middle lobe to 6/293) which was not apparent on previous examination. There is a 2 mm pleural-based nodule in the lateral right upper lobe (6/178 which is stable. MEDIASTINUM: The mediastinum is normal. No significant coronary artery calcifications are identified. Multinodular goiter appears unchanged. PLEURA: There is no pleural effusion. There is stable pleural thickening at the apices. No developing pleural mass or thickening. AXILLA: No lymphadenopathy. Postmastectomy changes on the left appear stable. There is a venous access port in the right chest. LIVER, GALLBLADDER, AND BILIARY TREE: The liver is normal in size, shape, and attenuation. No focal hepatic lesion or biliary ductal dilatation is present. The gallbladder is not visualized. PANCREAS: Unremarkable SPLEEN: Unremarkable ADRENAL GLANDS: There is a mass in the right adrenal gland measuring 2.5 x 2.4 x 2 cm which remains stable. Precontrast density 23 Hounsfield units, postcontrast 80 Hounsfield units, delayed 34 Hounsfield units. There is a dominant mass in the left adrenal gland measuring 2.5 x 2 x 1.9 cm which is stable. This measures -3.7 Hounsfield units precontrast, 30 Hounsfield units postcontrast, and 5 Hounsfield units on delayed imaging. Inferiorly in the adrenal gland there is a mass measuring 1.8 x 1.4 x 1.7 cm which is stable. This measures 5 Hounsfield units precontrast, 51 Hounsfield units following contrast and 19 Hounsfield units on delayed imaging. KIDNEYS AND URETERS: The kidneys are normal in size, shape, and attenuation. There are small bilateral renal cysts for which no additional workup is recommended. Punctate nonobstructive intrarenal calculi are seen in the mid right kidney and in the left lower pole. There is an extrarenal pelvis on the right. No hydronephrosis or hydroureter is present. BLADDER: Unremarkable GASTROINTESTINAL TRACT: The small and large bowel are unremarkable. The appendix is not visualized. ABDOMINAL WALL: No significant hernia is appreciated. LYMPH NODES: Normal VASCULAR: Moderate calcific plaque in the aorta without dilatation. PELVIC VISCERA: Unremarkable OSSEOUS STRUCTURES: No fracture or focal destructive lesion is seen. There is degenerative facet arthropathy at L5-S1. CT/CT abdomen pelvis wo/w IV con IMPRESSION: There is mild right lung base atelectasis. No airspace consolidation is seen. 3.5 mm nodule in the medial right middle lobe is likely inflammatory. Follow-up in 6-12 months is recommended. Stable postmastectomy changes on the left. No evidence of metastatic disease in the abdomen or pelvis. Stable bilateral adrenal masses with evidence of washout, consistent with adenomas.
[2023-07-21] MEDS: iohexoL 350 MG/ML 100 ML INFUS..BTL 85 ML IV (09:42)
== END 2023-07-21 07:55 | disposition home or self-care (01) ==
LOC: HO.CT 07:54
PROVIDERS: PCP Internal Medicine; Visit Provider Internal Medicine Medical Oncology
DX: C50.919 Malignant neoplasm of unspecified site of unspecified female breast (principal)
CPT/HCPCS: 71260; 74178; Q9967

== ENCOUNTER 2023-07-21 13:41 | Outpatient (AMB) | payer OTHER, SELFPAY ==
--- NOTE | 2023-07-21 13:56 | MHC.OFFVIS ---
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 Scribed for AMY Lucero by Eleni Wood biomedical engineering director, on 07/21/2023 at 2:22 pm EST. Religious Education Teacher Required: No Information Interpreted: non-clinical & clinical Superintendent Gas Distribution: Superintendent Gas Distribution Present (Dodie Quiñonez EDEN) Accompanied by: Daughter Allergies diclofenac [From Voltaren] Allergy (Severe, Verified 07/21/23 14:10) enlarged liver lisinopril [From Zestril] Allergy (Severe, Verified 07/21/23 14:10) fluid in lung Penicillins [PENICILLINS] Allergy (Intermediate, Verified 07/21/23 14:10) Facial Swelling oxybutynin [Oxybutynin] Adverse Reaction (Severe, Verified 07/21/23 14:10) body twitching metformin Adverse Reaction (Intermediate, Verified 07/21/23 14:10) Diarrhea Post menopausal: Yes HPI HPI Comments History of Present Illness Details She is a postmenopausal woman presenting for annual exam. Reports noticing right lump in breast for couple of months. She reports bad appetite and was given Rx to improve it and is working. Denies vaginal itching and irritation. Denies family hx of colon and ovarian cancer. Last pap smear 02/26/22. Last mammogram 11/11/22. UTD on colonoscopy. [facility] Medical History Adrenal adenoma Arthritis Cervical cancer screening COPD (chronic obstructive pulmonary disease) DCIS (ductal carcinoma in situ) Diabetes Ductal carcinoma in situ (DCIS) of left breast Effusion of left knee Encounter to discuss test results Fall Family history of prostate cancer in father Generalized anxiety disorder History of anal fissures History of palpitations History of short term memory loss History of unsteady gait Hx of renal calculi Hypercholesterolemia Hypertension Invasive ductal carcinoma of left breast Leg swelling Low back pain Mild heartburn Peripheral vascular disease Port-A-Cath in place Shortness of breath Smoker Thyroid nodule Type 2 diabetes mellitus with hyperglycemia Urinary incontinence Vaginal yeast infection Vision changes Weakness Surgical History H/O total mastectomy of left breast (12/21/22) History of appendectomy History of biopsy History of bladder surgery History of cholecystectomy History of endometrial ablation History of left knee replacement History of tonsillectomy Hx of tubal ligation Family History Mother History of breast cancer Father Prostate CA Brother No problems noted. Brother No problems noted. Daughter No problems noted. Social History Household Members: Family Household Members Other:: Daughter Housing: House Are you a primary home day care provider to a significant other at home: Yes () Do you presently have visiting nurse or other home services: No Alcohol intake: current Alcohol intake frequency: holidays/special occasions only Patient Tobacco Use Status: Current everyday Tobacco user Tobacco use type: Cigarette Cigarette Packs Per Day: 1.25 Cigarettes Per Day: 25.0 Years Smoked: 40 e-Cigarette/Vaping Use: Never Used Second Hand Smoke Exposure: No service: No Current occupational status: disabled Cognitive needs: No Hearing needs: No Vision needs: Yes Female Reproductive History Menstrual Age of Menarche: 10 Menopause type: natural Total pregnancies: 7 Full term: 1 Number of Living Children: 1 Ab induced: 1 Ab spontaneous: 5 Date of last pap smear: 02/26/22 Date of Mammogram: 11/11/22 Physical Exam Vital Signs: Last Vital Signs BP 120/72 07/21/23 13:57 BMI result Body Mass Index 34.1 Const General: cooperative, healthy appearing, no acute distress, well developed and alert Orientation/consciousness: patient oriented x3 HEENT Head: Yes normal to inspection Eyes General: appearance normal, both eyes and all related structures Neck Neck: Yes normal visual inspection Thyroid: Thyroid normal Chest Other: *left breast mastectomy scarring, and right breast- 9:00 3-4mm, superficial sebaceous oil gland on skin surface, non tender, not inflamed. Chest palpation & inspection: normal inspection of the chest Breast/axilla inspection: normal inspection of the breasts (right;no puckering, dimpling, peau de orange, retraction, discharge, masses) Breast/axilla palpation: normal palpation of the breasts Resp Effort & Inspection: normal respiratory effort GI Inspection: Yes normal to inspection and Yes obesity Palpation (GI): Soft to palpation (to palpation) Rectal Exam - Female: deferred General: Yes bladder normal to inspection External Female Exam: normal external appearance and normal appearance of the urethra Speculum Exam - Vagina: normal appearance of the vagina, normal palpation and vagina atrophic Speculum Exam - Cervix: normal appearance of the cervix and normal palpation Bimanual exam- vagina & uterus: normal palpation and normal palpation Bimanual Exam- Adnexa, other: normal adnexae and no masses Skin General skin exam: no rashes or lesions noted Neuro General: patient oriented x3 Cognition (Neuro): normal cognition Extrem General: Yes normal to inspection Psych Attitude: cooperative Thought process: Normal thought process present Assessment & Plan Assessment & Plan (1) Encounter for well woman exam: Code(s): Z01.419 - Encounter for gynecological examination (general) (routine) without abnormal findings Plan: Discussed: Current recommendations for pap smears per ASCCP guidelines. Breast awareness and periodic self breast exams. Encouraged yearly mammograms. Maintaining a healthy lifestyle including a well balanced diet including Calcium and Vitamin D and routine exercise. Contact office with any PMB. All of her questions and concerns were addressed to the best of my ability. RTO in 1 year for AG. Medications: Discontinued ondansetron 8 mg PO Q8H 50 tabs 6RF oxycodone Partial Fill upon patient request. 5 mg PO Q8H PRN 50 tabs 0RF Breakthrough Pain, Moderate ondansetron 8 mg PO Q8H 50 tabs 6RF oxycodone Partial Fill upon patient request. 5 mg PO Q8H PRN 50 tabs 0RF Breakthrough Pain, Moderate oxycodone Partial Fill upon patient request. 5 mg PO Q8H PRN 50 tabs 0RF Breakthrough Pain, Moderate oxycodone Partial Fill upon patient request. 5 mg PO Q8H PRN 50 tabs 0RF Breakthrough Pain, Moderate ondansetron 8 mg PO Q8H 50 tabs 6RF oxycodone Partial Fill upon patient request. 5 mg PO Q8H PRN 50 tabs 0RF Breakthrough Pain, Moderate Coding Level of Care Code Est Pt Prev Care 40-64y(10794) Diagnoses Encounter for well woman exam Z01.419
[2023-07-21 13:57] VITALS: BP 120/72; BMI 34.1
== END 2023-07-21 14:58 | disposition home or self-care (01) ==
PROVIDERS: Visit Provider Advanced Practice Midwife
DX: Z01.419 Encounter for gynecological examination (general) (routine) without abnormal findings (principal)
CPT/HCPCS: 99396

== ENCOUNTER 2023-09-22 09:46 | Emergency (ER) | payer OTHER, SELFPAY ==
--- NOTE | ~2023-09-22 | CT_ITS ---
EXAMINATION: CT ANGIOGRAM OF THE CHEST WITH AND WITHOUT CONTRAST (CT PULMONARY ANGIOGRAM FOR PE) CLINICAL INFORMATION: Reason for Exam palpitations, dyspnea, chest pain COMPARISON: 07/21/2023 TECHNIQUE: Prior to contrast administration, noncontrast localization images were obtained. Subsequently, multidetector volumetric imaging was performed from the thoracic inlet to below the diaphragms following the administration of 65 mL Omnipaque 350 intravenous contrast. No contrast reaction reported Sagittal, coronal, and MIP oblique sagittal reformatted images were obtained on the CT workstation, uploaded to PACS, and reviewed. This CT examination was performed using dose optimization techniques as appropriate, variously including the following: *Automated exposure control *Adjustment of mA and/or kV according to patient size (this includes techniques or standardized protocols for targeted exams where dose is matched to indication/reason for exam; i.e. extremities or head) *Use of iterative reconstruction technique Total exam dose-length product 412 mGy-cm FINDINGS: QUALITY OF STUDY/CONTRAST BOLUS: Satisfactory. PULMONARY ARTERIES: No pulmonary emboli. THORACIC AORTA: Ascending thoracic aorta measures 3.8 x 4.0 cm. There is soft atheromatous plaque narrowing the origin of the left subclavian artery. LUN mm nodule abutting the left major fissure on image 202 of series 7. 3 mm left lower lobe nodule on image 258 of series 7. 3 mm nodule right middle lobe on image 311 of series 7. No focal consolidation. Central airways are patent. PLEURA: No pleural effusion or pneumothorax. MEDIASTINUM: Normal heart size. Possible left ventricular hypertrophy. No pericardial effusion. No hilar or mediastinal lymphadenopathy. No evidence of septal bowing or right heart strain. CORONARY ARTERY CALCIFICATION: None visualized on this study. CHEST WALL/AXILLA: No axillary or internal mammary lymphadenopathy. Status post left mastectomy. Right chest wall Port-A-Cath with tip at the cavoatrial junction. OSSEOUS STRUCTURES: No destructive bone lesions. UPPER ABDOMEN: Multiple bilateral adrenal nodules previously characterized as adenomas. No reflux of contrast into the hepatic veins to suggest elevated right heart pressures. CT/CT angio chest PE protocol IMPRESSION: No evidence of pulmonary embolus. Few scattered pulmonary nodules measuring 3 mm. These nodules are likely stable. No new or enlarging pulmonary nodules. No acute intrathoracic abnormality. Soft atheromatous plaque narrowing the origin of the left subclavian artery. VTE: negative
--- NOTE | 2023-09-22 09:56 | ED_ITS ---
HPI - Arrhythmia/Palpitations General Chief Complaint: Arrhythmia/Palpitations Stated Complaint: fast heart rate Time Seen by Provider: 09/22/23 09:51 Source: patient and old records reviewed Mode of arrival: ambulatory Limitations: no limitations History of Present Illness HPI narrative: 63 yo female with PMH of arthritis, DM, COPD, palpitations, anxiety, HLD, HTN, low back pain, infiltrating DCIS of breast last treatment of immunotherapy about a month ago s/p L mastectomy, - was seen by Dr. Mitchell today in f/o c/o dyspne and palpitations HR in 150s so she was sent to the ED. She notes for the past few days she has shortness of breath, some chest pain and palpitations. NO edema. She blames it on the duloxetine she just started for neuropathy. She denies new cough, fevers, GIB symptoms. MD complaint: rapid heart beat and palpitations Onset (ago): day(s) (3) Duration: intermittent Severity: moderate Context: occurred during rest Associated symptoms: chest pain and shortness of breath Related Data Home Medications Medication Instructions Recorded Confirmed acetaminophen 325 mg capsule 325 mg PO QID PRN Pain 09/01/22 07/15/23 ascorbic acid (vitamin C) 500 mg 500 mg PO DAILY 09/04/22 07/15/23 tablet (Vitamin C) cyanocobalamin (vitamin B-12) 1,000 mcg PO DAILY 09/04/22 07/15/23 1,000 mcg tablet ferrous sulfate 325 mg (65 mg 325 mg PO FR@0900 09/04/22 07/15/23 iron) tablet (Iron (ferrous sulfate)) zinc gluconate 50 mg tablet 50 mg PO DAILY 09/04/22 07/15/23 quetiapine 50 mg tablet 50 mg PO BEDTIME 06/23/23 07/15/23 Previous Rx's Medication Instructions Recorded pen needle, diabetic 32 gauge x #100 ea 05/21/2211/24 (BD Ultra-Fine Micro Pen Needle) blood-glucose meter (FreeStyle #1 ea 05/28/22 Lite Meter kit) triamcinolone acetonide 0.1 % 1 appl topical DAILY 12/01/22 topical cream lorazepam 0.5 mg tablet 0.5 mg PO BEDTIME PRN Insomnia #30 01/06/23 tabs collagenase clostridium histo. 250 1 appl topical DAILY to debride 01/07/23 unit/gram topical ointment (Santyl) slough #30 grams letrozole 2.5 mg tablet 2.5 mg PO DAILY #90 tabs 01/11/23 cholecalciferol (vitamin D3) 50 50 mcg PO DAILY #90 caps 03/15/23 mcg (2,000 unit) capsule duloxetine 20 mg capsule,delayed 20 mg PO BID #60 caps 04/21/23 release ondansetron 8 mg disintegrating 8 mg PO Q8H #50 tabs 05/11/23 tablet Novolog FlexPen U-100 Insulin 100 See Rx Instructions subcut TID #15 05/13/23 unit/mL (3 mL) subcutaneous mL (insulin aspart U-100) insulin glargine 100 unit/mL (3 24 unit (0.24 mL) subcut DAILY #15 05/13/23 mL) subcutaneous pen (Lantus mL Solostar U-100 Insulin) albuterol sulfate 90 mcg/actuation 1 puff inhalation QID #8.5 grams 05/27/23 aerosol inhaler ropinirole 1 mg tablet 1 mg PO BID #180 tabs 06/20/23 lancets 28 gauge (FreeStyle #100 ea 06/21/23 Lancets) docusate sodium 100 mg capsule 100 mg PO BID #60 caps 06/23/23 (Colace) fluticasone propionate 50 1 spray intranasal BID #35 mL 06/23/23 mcg/actuation nasal spray,suspension (Flonase Allergy Relief) dexamethasone 1 mg tablet 1 mg PO ONCE #1 tab 07/15/23 albuterol sulfate 2.5 mg/3 mL 2.5 mg (3 mL) inhalation Q4-6H PRN 07/18/23 (0.083 %) solution for nebulization for wheezing #180 mL blood sugar diagnostic (FreeStyle #100 ea 07/18/23 Lite Strips) alcohol swabs (Alcohol Prep Pads) See Rx Instructions topical 08/12/23 .COMPLEX #200 ea amlodipine 5 mg tablet 5 mg PO BID 90 days #180 tabs 08/12/23 aspirin 81 mg tablet,delayed 81 mg PO DAILY 90 days #90 tabs 08/12/23 release (Adult Aspirin Regimen) clotrimazole 1 % topical cream 1 appl topical BID 4 weeks #45 08/12/23 grams solifenacin 5 mg tablet (Vesicare) 5 mg PO DAILY #90 tabs 08/12/23 umeclidinium 62.5 mcg-vilanterol 1 inh inhalation DAILY #60 ea 08/12/23 25 mcg/actuation powdr for inhalation (Anoro Ellipta) duloxetine 20 mg capsule,delayed 20 mg PO BID #180 caps 08/30/23 release clonidine HCl 0.1 mg tablet 0.1 mg PO BEDTIME #90 tabs 09/08/23 paroxetine HCl 20 mg tablet 20 mg PO DAILY 90 days #90 tabs 09/13/23 metoprolol succinate 25 mg 25 mg PO DAILY #30 tabs 09/22/23 tablet,extended release 24 hr (Toprol XL) oxycodone 5 mg tablet 5 mg PO Q8H PRN Breakthrough Pain, 09/22/23 Moderate #50 tabs Allergies Allergy/AdvReac Type Severity Reaction Status Date / Time diclofenac [From Voltaren] Allergy Severe enlarged Verified 07/21/23 14:10 liver lisinopril [From Zestril] Allergy Severe fluid in Verified 07/21/23 14:10 lung Penicillins [PENICILLINS] Allergy Intermediate Facial Verified 07/21/23 14:10 Swelling oxybutynin [Oxybutynin] AdvReac Severe body Verified 07/21/23 14:10 twitching metformin AdvReac Intermediate Diarrhea Verified 07/21/23 14:10 Review of Systems 2 Review of Systems: Constitutional : No Fever, No Chills ENT/Mouth : No sore throat, No Rhinorrhea, No Swallowing Difficulty Eyes: No Eye Pain, No Swelling, No Redness Cardiovascular : No Chest Pain, positive SOB, No Orthopnea, no Edema, pos palpitations Respiratory : No Cough, No Sputum, No Wheezing, positive dyspnea Gastrointestinal : No Nausea, No Vomiting, No Diarrhea, No abdominal Pain, No Hematochezia, No Melena Genitourinary : No Dysuria, No Urinary Frequency, No Hematuria Musculoskeletal : No joint pain, No Myalgias Skin : No Skin Lesions, No rash Neuro : No Weakness, No Numbness, No Dizziness, No Headache Psych : No Anxiety/Panic, No Depression All other systems reviewed and are negative PMFSH Past Medical History Attestation statement: The following information was validated with the patient. 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 Cervical cancer screening Generalized anxiety disorder Type 2 diabetes mellitus with hyperglycemia History of anal fissures Peripheral vascular disease Urinary incontinence Hypertension COPD (chronic obstructive pulmonary disease) Hypercholesterolemia Surgical History H/O total mastectomy of left breast (12/21/22) History of biopsy History of endometrial ablation Hx of tubal ligation History of tonsillectomy History of appendectomy History of cholecystectomy History of bladder surgery History of left knee replacement Family History Family History Mother History of breast cancer Father Prostate CA Brother No problems noted. Brother No problems noted. Daughter No problems noted. Social History Social History Household Members: Family Household Members Other:: Daughter Housing: House Are you a primary point of care specialist to a significant other at home: Yes () Do you presently have visiting nurse or other home services: No Alcohol intake: current Alcohol intake frequency: holidays/special occasions only Patient Tobacco Use Status: Current everyday Tobacco user Tobacco use type: Cigarette Cigarette Packs Per Day: 1.25 Cigarettes Per Day: 25.0 Years Smoked: 40 e-Cigarette/Vaping Use: Never Used Second Hand Smoke Exposure: No Use of substances other than those prescribed or required for medical reasons: No Have you been hit, kicked, punched, or otherwise hurt by someone within the past year? If so, by whom?: No Do you feel safe in your current relationship?: Yes Do you have thoughts of harming others: None Do you have a plan to hurt others: No Plan Do you have the means to hurt others: No Recently lost weight without trying: No Patient : No service: No Current occupational status: disabled Cognitive needs: No Hearing needs: No Vision needs: Yes Physical Exam 2 Vital Signs: Vital Signs: Last Vital Signs Temp 98.0 F 09/22/23 11:54 Pulse 88 09/22/23 12:43 Resp 22 H 09/22/23 11:54 BP 133/88 09/22/23 11:54 Pulse Ox 96 09/22/23 12:43 O2 Del Method Room Air 09/22/23 12:43 BMI result Body Mass Index 33.0 Appearance: Alert. Oriented X3. No acute distress. Eyes: Pupils equal, round and reactive to light. ENT: Pharynx mildly dry MM Neck: Normal inspection. Neck supple. CVS: tachycardic heart rate and rhythm. Pulses normal. Respiratory: No respiratory distress. Breath sounds diminished in bases Abdomen: Soft and non-tender. Skin: Skin warm and dry. pale skin color. Normal skin turgor. Extremities: No lower extremity edema. No calf ttp Neuro: Oriented X 3. No motor deficit. No sensory deficit. Course Course Course Narrative: patient is still tachycardia - repeat IV dilt but looks like sinus tachycardia no VTE or pneumonia negative infectious workup lactic acid likely due to dehydration medications could be causing her symptoms Reevaluation(s) Reevaluation #1: HR now down to 87 will dose with toprol prior to DC okay for DC feels much better and wants to go home. Medications Administered Discontinued Medications Generic Name Dose Route Start Last Admin Trade Name Cristoq PRN Reason Stop Dose Admin Diltiazem HCl 10 mg 09/22/23 10:07 09/22/23 10:59 Diltiazem Hcl 50 Mg/10 Ml Vial IVPUSH 09/22/23 10:08 10 mg STAT STA Administration Diltiazem HCl 10 mg 09/22/23 11:21 09/22/23 11:52 Diltiazem Hcl 50 Mg/10 Ml Vial IVPUSH 09/22/23 11:22 10 mg STAT STA Administration Sodium Chloride 500 mls @ 500 mls/hr 09/22/23 11:30 09/22/23 11:52 Ns IV 09/22/23 12:29 500 mls/hr .Q1H [place] Administration Iohexol 100 ml 09/22/23 11:05 09/22/23 11:05 Iohexol 350 Mg/Ml 100 Ml Infus..Btl IV 11/02/23 11:06 65 ml ONCE ONE Administration Medical Decision Making Medical Decision Making MDM Narrative: 63 yo female with PMH of arthritis, DM, COPD, palpitations, anxiety, HLD, HTN, low back pain, infiltrating DCIS of breast last treatment of immunotherapy about a month ago s/p L mastectomy here with c/o palpitations, dyspnea for 3 days HR in 150s I do not see discrete p waves unsure of underlying rhythm. She denies infectious symptoms - at this time labs, TSH, trop, CTA for PE ordered. IV dilt to assess underlying rhythm ordered. Differential Diagnosis Differential Diagnoses: The differential diagnosis associated with the presentation includes arrhythmia, VTE, effusion, lyte abnormality Admission/Observation Consideration of admission/observation: Escalation of care including admission/observation considered Consult Healthcare Provider Management of the patient was discussed with: Hospitalist Lab Data [facility] Lab Attestation statement: I reviewed the patient's lab results. 09/22/23 11:10 09/22/23 11:00 Labs: Lab Results 09/22/23 09/22/23 09/22/23 Range/Units 11:00 11:10 13:26 WBC 12.8 H (4.8-10.8) X10*3/uL RBC 4.77 (4.20-5.50) X10*6/uL Hgb 15.5 (12.0-16.0) g/dl Hct 45.3 (37.0-47.0) % MCV 95.0 (80.0-98.0) fL MCH 32.5 (27.0-33.0) pg MCHC 34.2 (31.0-35.0) g/dl RDW 14.1 (11.0-16.0) % Plt Count 300 (160-400) X10*3/uL MPV 10.2 (9.4-12.3) fL Immature Gran % (Auto) 0.4 (0.0-0.4) % Neut % (Auto) 66.4 (45-73) % Lymph % (Auto) 21.4 (20-40) % [place] % (Auto) 7.5 (2-11) % Eos % (Auto) 3.4 (0-4) % Baso % (Auto) 0.9 (0-2) % Lymph # (Auto) 2.7 (1.2-4.9) X10*3/uL [place] # (Auto) 1.0 (0.1-1.2) X10*3/uL Eos # (Auto) 0.4 (0.0-0.4) X10*3/uL Baso # (Auto) 0.1 (0.0-0.2) X10*3/uL Abs Immat Gran (auto) 0.05 H (0.00-0.03) X10*3/uL Absolute Neuts (auto) 8.5 H (2.0-8.3) x10*3/uL Absolute Nucleated RBC 0.000 (0.0-0.012) X10*3/uL Nucleated RBC % (auto) 0.0 (0.0-0.2) /100WBC PT 10.8 L (11.1-13.3) SEC INR 0.9 (0.9-1.1) APTT 32.4 (26.0-36.4) SEC Sodium 134 L (135-145) mmol/L Potassium 3.8 (3.3-5.1) mmol/L Chloride 107 (96-108) mmol/L Carbon Dioxide 15 L (22-29) mmol/L Anion Gap 16 (12-20) BUN 10 (9-16) mg/dL Creatinine 0.73 (0.5-1.4) mg/dL Estim Creat Clear Calc 88.5 Estimated GFR > 60 Random Glucose 215 H (60-115) mg/dL Lactic Acid 2.1 H* (0.5-2.0) mmol/L Lactic Acid F/U @ 2Hr 1.2 (0.5-2.0) mmol/L Calcium 9.8 (8.4-10.2) mg/dL Magnesium 2.0 (1.6-2.6) mg/dL Total Bilirubin 0.3 (0.0-1.0) mg/dL Direct Bilirubin 0.1 (0.0-0.5) mg/dL AST 23 (5-31) U/L ALT 27 (0-31) U/L Alkaline Phosphatase 112 (39-117) U/L Troponin I High Sens 9.5 (<3.5-17.0) ng/L B-Natriuretic Peptide 42 (<100) pg/mL Total Protein 6.9 (6.5-8.0) g/dL Albumin 3.7 (3.5-5.0) g/dL Lipase 8 (8-78) U/L Procalcitonin 0.05 ng/mL TSH 2.27 (0.32-4.0) uIU/mL COVID-19 (DARON) Negative (Negative) COVID-19 Clin Com See Note Independent Interpretation I performed an independent interpretation of an: EKG and CT Scan (no PE or pneumonia) Interpretation: Rate: 152 Rhythm: tachycardia Myrtle: normal Normal QRS complex. ST T wave : no Colin , no ST depression qTC: 502 slightly prolonged prior studies: rate is up The study has been interpreted contemporaneously by me. EKG #2 Rate: 131 Rhythm: sinus tach Myrtle: normal Normal P waves. Normal GALA. Normal QRS complex. ST T wave : nonspecific V1-V2, no COLIN qTC: normal prior studies: sinus tachycardia slower rate than before The study has been interpreted contemporaneously by me. . Radiology Impression Discussion of test interpretation with radiology: I have reviewed the radiologist's reading. Independent Historian Clinical information obtained from an independent historian. History obtained from or confirmed by: Other External Record Review External record reviewed: Inpatient record Critical Care Time Critical Care Time Critical Care Time: Yes Total Critical Care Time: 35 Attestation: IV dilt x 2, IVF, repeat lactic acid I attest to this time spent taking care of the patient Discharge Plan Discharge Clinical Impression: Sinus tachycardia Patient Disposition: Home, Self-Care Instructions: Tachycardia (ED) Additional Instructions: return for worsening symptoms, chest pain, shortness of breath, fevers, black of bloody stools, vomiting or any other concerns. start new med tomorrow hold if top blood pressure is greater than 100 or heart rate is less than 60, or if you are dizzy. please follow up with Dr. Mitchell - you may want to do a holter monitor while at home Prescriptions: New metoprolol succinate [Toprol XL] 25 mg tablet extended release 24 hr 25 mg PO DAILY Qty: 30 0RF No Action (DME) pen needle, diabetic [BD Ultra-Fine Micro Pen Needle] 32 gauge x 1/4 needle See Rx Instructions miscellaneous .MEDSUPPLY Qty: 100 2RF Rx Instructions: as directed with insulin (DME) blood-glucose meter [FreeStyle Lite Meter] Kit See Rx Instructions .ROUTE .MEDSUPPLY Qty: 1 0RF Rx Instructions: As directed triamcinolone acetonide 0.1 % cream 1 appl topical DAILY 3RF Rx Instructions: apply to affected area Santyl 250 unit/gram ointment 1 appl topical DAILY Qty: 30 0RF Rx Instructions: apply to wound bed daily until office visit cholecalciferol (vitamin D3) 50 mcg (2,000 unit) capsule 50 mcg PO DAILY Qty: 90 2RF albuterol sulfate 90 mcg/actuation HFA aerosol inhaler 1 puff inhalation QID Qty: 8.5 5RF ropinirole 1 mg tablet 1 mg PO BID Qty: 180 2RF (DME) lancets [FreeStyle Lancets] 28 gauge misc See Rx Instructions .ROUTE .COMPLEX Qty: 100 3RF Dose Instruction: USE DIRECTED THREE TIMES A DAY Rx Instructions: USE DIRECTED THREE TIMES A DAY (DME) FreeStyle Lite Strips Strip See Rx Instructions .ROUTE .MEDSUPPLY Qty: 100 3RF Rx Instructions: check BS 3X/DAY albuterol sulfate 2.5 mg /3 mL (0.083 %) solution for nebulization 2.5 mg inhalation Q4-6H PRN (Reason: for wheezing) Qty: 180 1RF alcohol swabs [Alcohol Prep Pads] Pads, Medicated See Rx Instructions topical .COMPLEX Qty: 200 6RF Rx Instructions: topically tests 4 X/day; amlodipine 5 mg tablet 5 mg PO BID 90 Days Qty: 180 3RF Anoro Ellipta 62.5-25 mcg/actuation blister with device 1 inh inhalation DAILY Qty: 60 3RF clotrimazole 1 % cream 1 appl topical BID 28 Days Qty: 45 1RF solifenacin [Vesicare] 5 mg tablet 5 mg PO DAILY Qty: 90 2RF aspirin [Adult Aspirin Regimen] 81 mg tablet,delayed release (DR/EC) 81 mg PO DAILY 90 Days Qty: 90 3RF duloxetine 20 mg Capsule,Delayed Release(Dr/Ec) 20 mg PO BID Qty: 180 4RF clonidine HCl 0.1 mg tablet 0.1 mg PO BEDTIME Qty: 90 3RF paroxetine HCl 20 mg tablet 20 mg PO DAILY 90 Days Qty: 90 1RF cyanocobalamin (vitamin B-12) 1,000 mcg Tablet 1,000 mcg PO DAILY ascorbic acid (vitamin C) [Vitamin C] 500 mg Tablet 500 mg PO DAILY ferrous sulfate [Iron (ferrous sulfate)] 325 mg (65 mg iron) Tablet 325 mg PO FR@0900 zinc gluconate 50 mg Tablet 50 mg PO DAILY lorazepam 0.5 mg Tablet 0.5 mg PO BEDTIME PRN (Reason: Insomnia) Qty: 30 3RF letrozole 2.5 mg Tablet 2.5 mg PO DAILY Qty: 90 4RF duloxetine 20 mg Capsule,Delayed Release(Dr/Ec) 20 mg PO BID Qty: 60 3RF ondansetron 8 mg Tablet,Disintegrating 8 mg PO Q8H Qty: 50 6RF quetiapine 50 mg tablet 50 mg PO BEDTIME fluticasone propionate [Flonase Allergy Relief] 50 mcg/actuation [place],Suspension 1 spray INTRANASAL BID Qty: 35 3RF Rx Instructions: administer into each nostril docusate sodium [Colace] 100 mg Capsule 100 mg PO BID Qty: 60 4RF oxycodone 5 mg Tablet 5 mg PO Q8H PRN (Reason: Breakthrough Pain, Moderate) Qty: 50 0RF Rx Instructions: Partial Fill upon patient request. acetaminophen 325 mg capsule 325 mg PO QID PRN (Reason: Pain) insulin glargine [Lantus Solostar U-100 Insulin] 100 unit/mL (3 mL) insulin pen 24 unit subcut DAILY Qty: 15 3RF insulin aspart U-100 [Novolog FlexPen U-100 Insulin] 100 unit/mL (3 mL) insulin pen See Rx Instructions subcut TID Qty: 15 4RF Rx Instructions: 10 units before breakfast and lunch and 14 units before dinner subcutaneously 3 times a day; dexamethasone 1 mg tablet 1 mg PO ONCE Qty: 1 0RF
[2023-09-22 10:03] VITALS: BP 126/68; PULSE 158; RESP 24; TEMP 36.6; O2SAT 98; BMI 33.0
--- NOTE | 2023-09-22 10:30 | PC.NURSE ---
port accessed from oncology. medicated per the MAR, patient is alert and oriented. ambulates to bathroom with one assist. left sided breast cancer.
[2023-09-22] MEDS: dilTIAZem HCL 50 MG/10 ML VIAL 10 MG IVPUSH ×2 (10:59→11:52)
[2023-09-22] MEDS: iohexoL 350 MG/ML 100 ML INFUS..BTL IV (11:05)
[2023-09-22 11:14] LABS: MANUAL DIFF FLAG NO
[2023-09-22 11:16] LABS: Basophils Absolute Auto 0.1 X10*3/uL (0.0-0.2); Basophils Percent Auto 0.9 % (0-2); Eosinophils Absolute Auto 0.4 X10*3/uL (0.0-0.4); Eosinophils Percent Auto 3.4 % (0-4); Hematocrit 45.3 % (37.0-47.0); Hemoglobin 15.5 g/dl (12.0-16.0); Imm Gran Abs Auto 0.05 X10*3/uL (0.00-0.03); Imm Gran Pct Auto 0.4 % (0.0-0.4); Lymphocytes Absolute Auto 2.7 X10*3/uL (1.2-4.9); Lymphocytes Percent Auto 21.4 % (20-40); Mean Corpuscular HGB Conc 34.2 g/dl (31.0-35.0); Mean Corpuscular Hemoglobin 32.5 pg (27.0-33.0); Mean Platelet Volume 10.2 fL (9.4-12.3); Monocytes Percent Auto 7.5 % (2-11); Neutrophils Absolute Auto 8.5 x10*3/uL (2.0-8.3); Neutrophils Percent Auto 66.4 % (45-73); Platelet Count 300 X10*3/uL (160-400); Red Blood Count 4.77 X10*6/uL (4.20-5.50); Red Cell Distribution Width 14.1 % (11.0-16.0); White Blood Count 12.8 X10*3/uL (4.8-10.8)
[2023-09-22 11:27] LABS: Alanine Aminotransferase 27 U/L (0-31); Albumin Level 3.7 g/dL (3.5-5.0); Alkaline Phosphatase 112 U/L (39-117); Anion Gap 16 (12-20); Aspartate Amino Transferase 23 U/L (5-31); Bilirubin Direct 0.1 mg/dL (0.0-0.5); Bilirubin Total 0.3 mg/dL (0.0-1.0); Blood Urea Nitrogen 10 mg/dL (9-16); Calcium 9.8 mg/dL (8.4-10.2); Carbon Dioxide 15 mmol/L (22-29); Chloride 107 mmol/L (96-108); Creatinine Clr Calc Pharmacy 88.5; Estimated Glomerular Filt Rate > 60; Glucose Random 215 mg/dL (60-115); Lipase 8 U/L (8-78); Potassium 3.8 mmol/L (3.3-5.1); Sodium 134 mmol/L (135-145); Total Protein 6.9 g/dL (6.5-8.0); Troponin-I High Sensitivity 9.5 ng/L (<3.5-17.0)
[2023-09-22 11:30] LABS: Lactic Acid 2.1 mmol/L (0.5-2.0)
[2023-09-22 11:39] LABS: B Type Natriuretic Peptide 42 pg/mL (<100)
[2023-09-22 11:41] LABS: COVID-19 Test Negative (Negative); IDNOW Serial# BCCEAD1C
[2023-09-22 11:42] LABS: Procalcitonin 0.05 ng/mL; TSH reflex Free T4 2.27 uIU/mL (0.32-4.0)
[2023-09-22 11:49] LABS: INTERNATIONAL NORM RATIO 0.9 (0.9-1.1); Prothrombin Time 10.8 SEC (11.1-13.3)
[2023-09-22 11:52] LABS: Partial Thromboplastin Time 32.4 SEC (26.0-36.4)
[2023-09-22] MEDS: 0.9 % Sodium Chloride 500 ML IV (11:52)
[2023-09-22 11:54] VITALS: BP 133/88; PULSE 146; RESP 22; TEMP 36.7; O2SAT 97
--- NOTE | 2023-09-22 12:09 | ECG_ITS ---
Test Reason : tachy Blood Pressure : / mmHG Vent. Rate : 131 BPM Atrial Rate : 131 BPM P-R Int : 120 ms QRS Dur : 086 ms QT Int : 328 ms P-R-T Axes : 097 007 019 degrees QTc Int : 484 ms Sinus tachycardia Low voltage QRS Minimal voltage criteria for LVH, may be normal variant ( Juanjo product ) Nonspecific ST abnormality Inferior leads Abnormal ECG When compared with ECG of 22-SEP-2023 08:46, ST more elevated in Inferior leads Referred By: Lorena Dunlap Electronically Signed By:KAIDEN ARIZA MD
--- NOTE | 2023-09-22 12:38 | PC.NURSE ---
repeat EKG obtained.
[2023-09-22 12:43] VITALS: PULSE 88; O2SAT 96
--- NOTE | 2023-09-22 12:43 | PC.NURSE ---
patient heart rate now 90, NSR
[2023-09-22 13:13] LABS: Reflex Lactate? Lactic Acid Added
[2023-09-22 13:49] LABS: ~Lactic Acid-LAB USE ONLY 1.2 mmol/L (0.5-2.0)
[2023-09-22] MEDS: Metoprolol Succinate ER 25 MG TAB.ER.24H PO (14:33)
[2023-09-22 14:34] VITALS: PULSE 97
[2023-09-22] MEDS: Heparin Sodium,Porcine Flush 500 UNIT/5 ML SYRINGE IVFLUSH (14:34)
== END 2023-09-22 14:44 | disposition home or self-care (01) ==
PROVIDERS: Emergency Provider Emergency Medicine; PCP Internal Medicine
DX: R00.0 Tachycardia, unspecified (principal); I49.9 Cardiac arrhythmia, unspecified; R00.2 Palpitations; R06.02 Shortness of breath; F17.210 Nicotine dependence, cigarettes, uncomplicated; Z11.52 Encounter for screening for COVID-19; Z20.822 Contact with and (suspected) exposure to COVID-19; Z79.899 Other long term (current) drug therapy; Z71.6 Tobacco abuse counseling
CPT/HCPCS: 36415; 71275; 80048; 80076; 83605; 83690; 83735; 83880; 84145; 84443; 84484; 85025; 85610; 85730; 87040; 87635; 93005; 96374; 96376; 99285; J1642; Q9967

== ENCOUNTER 2023-10-11 13:31 | Outpatient (AMB) | payer OTHER, SELFPAY ==
[2023-10-11 13:42] VITALS: BP 168/92; PULSE 80; O2SAT 98; BMI 33.1
--- NOTE | 2023-10-11 13:42 | A.OFFPC_ITS ---
Vital Signs 10/11/23 13:42 Height 5 ft 5 in Weight 90.2 kg BMI 33.1 BP 168/92 H Blood Pressure Location Lt brachial Position Sitting Pulse 80 Pulse Source Pulse Oximeter Pulse Oximetry (%) 98 Oxygen Delivery Method Room Air Intake Visit Reasons: DM, Insomnia Allergies diclofenac [From Voltaren] Allergy (Severe, Verified 10/11/23 13:42) enlarged liver lisinopril [From Zestril] Allergy (Severe, Verified 10/11/23 13:42) fluid in lung Penicillins [PENICILLINS] Allergy (Intermediate, Verified 10/11/23 13:42) Facial Swelling oxybutynin [Oxybutynin] Adverse Reaction (Severe, Verified 10/11/23 13:42) body twitching metformin Adverse Reaction (Intermediate, Verified 10/11/23 13:42) Diarrhea duloxetine Adverse Reaction (Intermediate, Uncoded 10/11/23 14:44) tachycardia Medication List - Last Reconciled 10/11/23 by Concepción Reyes, acetaminophen 325 mg PO QID PRN albuterol sulfate 90 mcg/actuation 1 puff inhalation QID albuterol sulfate 2.5 mg (3 mL) inhalation Q4-6H PRN alcohol swabs (Alcohol Prep Pads) topically tests 4 X/day; amlodipine 5 mg PO BID 90 days ascorbic acid (vitamin C) (Vitamin C) 500 mg PO DAILY aspirin (Adult Aspirin Regimen) 81 mg PO DAILY 90 days blood sugar diagnostic (FreeStyle Lite Strips) check BS 3X/DAY blood-glucose meter (FreeStyle Lite Meter kit) As directed cholecalciferol (vitamin D3) 50 mcg PO DAILY clonidine HCl 0.1 mg PO BEDTIME clotrimazole 1% 1 appl topical BID 4 weeks collagenase clostridium histo. (Santyl) 1 appl topical DAILY cyanocobalamin (vitamin B-12) 1,000 mcg PO DAILY dexamethasone 1 mg PO ONCE docusate sodium (Colace) 100 mg PO BID duloxetine 20 mg PO BID ferrous sulfate (Iron (ferrous sulfate)) 325 mg PO FR@0900 fluticasone propionate 50 mcg/actuation (Flonase Allergy Relief) 1 spray intranasal BID insulin glargine (Lantus Solostar U-100 Insulin) 24 units (0.24 mL) subcut DAILY lancets (FreeStyle Lancets) USE DIRECTED THREE TIMES A DAY (BULK) letrozole 2.5 mg PO DAILY lorazepam 0.5 mg PO BEDTIME PRN metoprolol succinate ER (Toprol XL) 25 mg PO DAILY Novolog FlexPen U-100 Insulin (insulin aspart U-100) 10 units before breakfast and lunch and 14 units before dinner subcutaneously 3 times a day; NS ondansetron 8 mg PO Q8H oxycodone 5 mg PO Q8H PRN paroxetine HCl 20 mg PO DAILY 90 days pen needle, diabetic (BD Ultra-Fine Micro Pen Needle) as directed with insulin quetiapine 50 mg PO BEDTIME ropinirole 1 mg PO BID solifenacin (Vesicare) 5 mg PO DAILY triamcinolone acetonide 0.1% 1 appl topical DAILY umeclidinium-vilanterol 62.5-25 mcg/actuation (Anoro Ellipta) 1 inh inhalation DAILY zinc gluconate 50 mg PO DAILY Tobacco use date assessed: 12/09/22 Dental Screening Dental Screen Date: 10/11/23 Did you have a dental visit in the last 12 months?: No Did you have a dental problem in the last 6 months where you did not have access to dental care?: No Was dental information given to patient?: No HPI DM, Insomnia HPI Details 63-year-old obese female smoker with lef t breast cancer status post mastectomy left, COPD hypercholesterolemia diabetes mellitus and hypertension coming in for follow-up. Last seen in February 2023. Patient continues to follow- up with Hematology-Oncology. Because of tachycardia/palpitations patient was sent to the ER diagnosis of sinus tachycardia and was prescribed metoprolol 25 mg once a day. Patient also has seen Neurology for peripheral neuropathy has been placed on duloxetine and gabapentin and advised to do nerve conduction test. Patient has also seen the endocrinology for the thyroid nodules and adrenal mass thyroid nodule is benign. As for the diabetes patient to started on glipizide and then Lantus and NovoLog. Echocardiogram done June 2023 within normal limits. Patient is strongly advised to stop smoking as she continues to smoke 4 cigarettes a day. 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 Cervical cancer screening Generalized anxiety disorder Type 2 diabetes mellitus with hyperglycemia History of anal fissures Peripheral vascular disease Urinary incontinence Hypertension COPD (chronic obstructive pulmonary disease) Hypercholesterolemia Surgical History H/O total mastectomy of left breast (12/21/22) History of biopsy History of endometrial ablation Hx of tubal ligation History of tonsillectomy History of appendectomy History of cholecystectomy History of bladder surgery History of left knee replacement Family History Mother History of breast cancer Father Prostate CA Brother No problems noted. Brother No problems noted. Daughter No problems noted. Household Members: Family Household Members Other:: Daughter Housing: House Are you a primary palliative care physician to a significant other at home: Yes () Do you presently have visiting nurse or other home services: No Alcohol intake: current Alcohol intake frequency: holidays/special occasions only Patient Tobacco Use Status: Current everyday Tobacco user Tobacco use type: Cigarette Cigarettes Per Day: 4 Years Smoked: 40 Packs Per Year: 50 Packs per year/per ci.00 e-Cigarette/Vaping Use: Never Used Second Hand Smoke Exposure: No service: No Current occupational status: disabled Cognitive needs: No Hearing needs: No Vision needs: Yes Female Reproductive History Menstrual Age of Menarche: 10 Questionnaire PHQ-9 Over the last 2 weeks, how often have you been bothered by any of the following problems? 1. Little interest or pleasure in doing things: more than half the days 2. Feeling down, depressed, or hopeless: nearly every day 3. Trouble falling or staying asleep, or sleeping too much: several days 4. Feeling tired or having little energy: several days 5. Poor appetite or overeating: not at all 6. Feeling bad about yourself - or that you are a failure or have let yourself or your family down: not at all 7. Trouble concentrating on things, such as reading the newspaper or watching television: not at all 8. Moving or speaking so slowly that other people could have noticed. Or the opposite - being so fidgety or restless that you have been moving around a lot more than usual: not at all 9. Thoughts that you would be better off or of hurting yourself in some way: not at all Total score: 7 Depression Screening Interpretation: Positive Depression Screening Done: Yes Source: Developed by Drs. Ravindra Calderon, Jena Sweet, García Barnard and colleagues, with an educational hayde from [employer]. Thrive Questionnaire Date Thrive assessed: 12/09/22 AUDIT C Alcohol Use Questionnaire (AUDIT-C) 1. How often do you have a drink containing alcohol?: Monthly or less 2. How many drinks containing alcohol do you have on a typical day when you are drinking?: 1 or 2 Total Score: 1 PARMJIT-7 AMB Questionnaire PARMJIT-7 Date PARMJIT - 7 assessed: 12/09/22 Source: Developed by Drs. Ravindra Calderon, Jena Sweet, García Barnard and colleagues, with an educational hayde from [employer]. Physical exam (Primary Care) Vital Signs: Last Vital Signs Pulse 80 10/11/23 13:42 BP 168/92 H 10/11/23 13:42 Pulse Ox 98 10/11/23 13:42 Oxygen Delivery Method Room Air 10/11/23 13:42 BMI result Body Mass Index 33.1 Tobacco/Smoking Status: Tobacco use Status Tobacco use date assessed 12/09/22 10/11/23 13:45 Patient Tobacco Use Status Current everyday Tobacco 10/11/23 13:45 Tobacco use type Cigarette 10/11/23 13:45 e-Cigarette/Vaping Use Never Used 10/11/23 13:45 PHQ-9: PHQ-9 Score PHQ-9: Total score 7 10/11/23 14:30 Depression Screening Interpretation: Positive Thrive Assessment: Date of Thrive Assessment Date Thrive assessed 12/09/22 10/11/23 13:45 Const General: alert; No acute distress Eyes Conjunctivae: conjunctivae normal Resp Auscultation: clear to auscultation bilaterally Cardio Rate: regular rate Rhythm: regular rhythm GI Inspection: Yes normal to inspection Extrem General: Yes normal to inspection and No edema Office Procedures Flu Questionnaire Does the patient have a severe egg allergy?: No Does the patient have severe life threatening allergies?: No Does the patient have a fever or illness today?: No Has the patient ever had Guillain-Sandstone Syndrome?: No Has the patient ever had any past reaction to a flu shot?: No Results AMB Hemoglobin A1c AMB Hemoglobin A1c 7.3 % Last Edit by Cara Brito CMA on 10/11/23 14 :21 Immunizations flu vacc [id number] 6mos up(PF) 60 mcg(15 mcgx4)/0.5 mL IM syringe Performing Provider: Concepción Reyes MD [facility] Administered by: Cara Brito CMA on 10/11/23 14:55 Dose Route Admin Location Dispensed Lot Number Expiration Date NDC Pheresis Specialist 0.5 mL IM Left Deltoid 0.5 mL [id number] 05/20/24 [id number] [employer] VIS Given Date VIS Provided VIS Publication Date 10/11/23 Single Vaccine 21 Eligibility Eligibility Date Funding Source Not VFC Eligible 10/11/23 Private Results Reviewed Results Reviewed: Laboratory Last Values Hgb A1c (Clinic) 7.3 % (4.0-6.0) H 10/11/23 14:04 Assessment and Plan Assessment & Plan (1) Type 2 diabetes mellitus with hyperglycemia: Comment: Dr. Osman Code(s): E11.65 - Type 2 diabetes mellitus with hyperglycemia Plan: Decrease the amount of carbohydrate intake, pasta, bread, rice and potatoes are all sugar and that is aside from all the sweet stuff, remember that fruits are good but they are Sweet also. Hemoglobin A1c goal of less than 6.5. Patient is being followed up by Endocrinology on Lantus NovoLog (2) Hypercholesterolemia: Code(s): E78.00 - Pure hypercholesterolemia, unspecified Plan: Avoid fried foods, chicken skin, eggs, butter margarine, pastries and meat. Be it pork or beef they have a lot of cholesterol LDL goal of less than 100. Up to now a did not see any blood work. (3) Tobacco abuse: Code(s): Z72.0 - Tobacco use Plan: Patient is strongly advised to stop smoking! (4) COPD (chronic obstructive pulmonary disease): Code(s): J44.9 - Chronic obstructive pulmonary disease, unspecified Plan: Stop smoking! Continue with inhalers (5) Hypertension: Code(s): I10 - Essential (primary) hypertension Plan: Continue with blood pressure medication. Decrease salt intake and exercise patient on amlodipine 5 mg once a day (6) Invasive ductal carcinoma of left breast: Comment: 12/21/22, left simple mastectomy with targeted axillary dissection via needle localization of a lymph node was performed by Dr. Teran Code(s): C50.912 - Malignant neoplasm of unspecified site of left female breast Plan: Continue with mammogram surveillance. Patient follows up with hematology oncology (7) Bronchitis: Code(s): J40 - Bronchitis, not specified as acute or chronic Plan: Has this cough continues to progress (8) S/P left mastectomy: Code(s): Z90.12 - Acquired absence of left breast and nipple Plan: Mastectomy proper prescribed Orders: Orders Free T4 (Free Thyroxine) Today D35.00 - Benign neoplasm of unspecified adrenal gland, E11.65 - Type 2 diabetes mellitus with hyperglycemia Microalbumin, Random (w Creat) Today E11.65 - Type 2 diabetes mellitus with hyperglycemia Comprehensive Met. Panel Today E11.65 - Type 2 diabetes mellitus with hyperglycemia MM tomosynthesis screening RT Today C50.912 - Malignant neoplasm of unspecified site of left female breast, Z12.31 - Encounter for screening mammogram for malignant neoplasm of breast Influenza [id number] Immunization Today Z23 - Encounter for immunization AMB Hemoglobin A1c Today Z13.9 - Encounter for screening, unspecified Lipid Panel Today D35.00 - Benign neoplasm of unspecified adrenal gland, E11.65 - Type 2 diabetes mellitus with hyperglycemia Thyroid Stimulating Hormone Today E11.65 - Type 2 diabetes mellitus with hyperglycemia Medications: New [matectomy BRA] As directed 2 ea 0RF E11.65 - Type 2 diabetes mellitus with hyperglycemia, Z90.12 - Acquired absence of left breast and nipple doxycycline hyclate 100 mg PO DAILY 14 caps 0RF J40 - Bronchitis, not specified as acute or chronic Changed From metoprolol succinate ER (Toprol XL) 25 mg PO DAILY 30 tabs 0RF E11.65 - Type 2 diabetes mellitus with hyperglycemia To metoprolol succinate ER (Toprol XL) 25 mg PO DAILY 90 tabs 1RF 90 days E11.65 - Type 2 diabetes mellitus with hyperglycemia Refilled paroxetine HCl 20 mg PO DAILY 90 tabs 1RF 90 days F41.1 - Generalized anxiety disorder umeclidinium-vilanterol 62.5-25 mcg/actuation (Anoro Ellipta) 1 inh inhalation DAILY 60 ea 12RF J44.9 - Chronic obstructive pulmonary disease, unspecified Discontinued duloxetine Discontinued Reason: Patient Refused 20 mg PO BID 180 caps 4RF Coding Level of Care Code Est Pt Level 4 (67260) Diagnoses Type 2 diabetes mellitus with hyperglycemia E11.65 Hypercholesterolemia E78.00 Tobacco abuse Z72.0 COPD (chronic obstructive pulmonary disease) J44.9 Hypertension I10 Invasive ductal carcinoma of left breast C50.912 Bronchitis J40 S/P left mastectomy Z90.12
== END 2023-10-11 15:03 | disposition home or self-care (01) ==
PROVIDERS: PCP Internal Medicine; Visit Provider Internal Medicine
DX: E11.65 Type 2 diabetes mellitus with hyperglycemia (principal); J44.9 Chronic obstructive pulmonary disease, unspecified; C50.912 Malignant neoplasm of unspecified site of left female breast; Z23 Encounter for immunization; E78.00 Pure hypercholesterolemia, unspecified; Z72.0 Tobacco use; I10 Essential (primary) hypertension; J40 Bronchitis, not specified as acute or chronic; Z90.12 Acquired absence of left breast and nipple
CPT/HCPCS: 83036; 90471; 90686; 99214

== ENCOUNTER → 2023-11-17 13:45 | Outpatient (BNV) | payer OTHER, SELFPAY | PROVIDERS: PCP Internal Medicine; Visit Provider Radiology Diagnostic Radiology | DX: Z12.31 Encounter for screening mammogram for malignant neoplasm of breast (principal) | CPT/HCPCS: 77063; 77067 ==

== ENCOUNTER 2023-11-17 13:55 | Outpatient (REF) | payer OTHER, SELFPAY ==
--- NOTE | ~2023-11-17 | MM_ITS ---
EXAMINATION: MM SCREENING DIGITAL BREAST TOMOSYNTHESIS, RIGHT CLINICAL INFORMATION: Screening. Asymptomatic. The patient is status post left mastectomy. COMPARISON: Mammography: This study is compared with prior exams dating back to 2016. TECHNIQUE: Digital breast tomosynthesis is performed in both the craniocaudal and mediolateral oblique views along with computer-aided detection (CAD). Synthesized 2D images are generated from the tomosynthesis. FINDINGS: There are scattered areas of fibroglandular density (ACR BI-RADS breast composition Category b). There are no significant masses, abnormal calcifications, or other abnormalities. MM/MM tomosynthesis screening RT IMPRESSION: No mammographic evidence of malignancy. ASSESSMENT: BI-RADS BI-RADS 1 - Negative RECOMMENDATION: Routine annual mammography screening. 1 year F/U This examination should not preclude the clinical evaluation of a suspicious palpable abnormality. This patient's information was entered into a reminder system with a target due date for their next mammogram.
== END 2023-11-17 13:56 | disposition home or self-care (01) ==
LOC: HO.MAMMO 13:55
PROVIDERS: PCP Internal Medicine; Visit Provider Internal Medicine
DX: Z12.31 Encounter for screening mammogram for malignant neoplasm of breast (principal)
CPT/HCPCS: 77063; 77067

== ENCOUNTER 2023-11-24 12:48 | Outpatient (AMB) | payer OTHER, SELFPAY ==
[2023-11-24 12:56] VITALS: BP 138/76; PULSE 80; BMI 35.2
--- NOTE | 2023-11-24 12:56 | MHC.OFFVIS ---
Intake Vital Signs 11/24/23 12:56 Height 5 ft 4 in Weight 205 lb BMI 35.2 BP 138/76 Blood Pressure Location Rt brachial Position Sitting Pulse 80 Pulse Source Pulse Oximeter Intake Visit Reasons: f/u Type 2 DM, MNG and adenal adenoma Intake Note: Patient present today to follow up on Type 2 Diabetes Mellitus, MNG, and Adrenal Adenoma. 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 Required: No Accompanied by: Daughter Allergies diclofenac [From Voltaren] Allergy (Severe, Verified 11/24/23 13:07) enlarged liver lisinopril [From Zestril] Allergy (Severe, Verified 11/24/23 13:07) fluid in lung Penicillins [PENICILLINS] Allergy (Intermediate, Verified 11/24/23 13:07) Facial Swelling oxybutynin [Oxybutynin] Adverse Reaction (Severe, Verified 11/24/23 13:07) body twitching metformin Adverse Reaction (Intermediate, Verified 11/24/23 13:07) Diarrhea duloxetine Adverse Reaction (Intermediate, Uncoded 11/24/23 10:19) tachycardia Medication List - Last Reconciled 11/24/23 by Ravindra Pryor MD acetaminophen 325 mg PO QID PRN albuterol sulfate 90 mcg/actuation 1 puff inhalation QID albuterol sulfate 2.5 mg (3 mL) inhalation Q4-6H PRN alcohol swabs (Alcohol Prep Pads) topically tests 4 X/day; amlodipine 5 mg PO BID 90 days ascorbic acid (vitamin C) (Vitamin C) 500 mg PO DAILY aspirin (Adult Aspirin Regimen) 81 mg PO DAILY 90 days blood sugar diagnostic (FreeStyle Lite Strips) check BS 3X/DAY blood-glucose meter (FreeStyle Lite Meter kit) As directed cholecalciferol (vitamin D3) 50 mcg PO DAILY clonidine HCl 0.1 mg PO BEDTIME clotrimazole 1% 1 appl topical BID 4 weeks collagenase clostridium histo. (Santyl) 1 appl topical DAILY cyanocobalamin (vitamin B-12) 1,000 mcg PO DAILY dexamethasone 1 mg PO ONCE docusate sodium (Colace) 100 mg PO BID ferrous sulfate (Iron (ferrous sulfate)) 325 mg PO FR@0900 fluticasone propionate 50 mcg/actuation (Flonase Allergy Relief) 1 spray intranasal BID insulin glargine (Lantus Solostar U-100 Insulin) 24 units (0.24 mL) subcut DAILY lancets (FreeStyle Lancets) USE DIRECTED THREE TIMES A DAY (BULK) letrozole 2.5 mg PO DAILY letrozole 2.5 mg PO DAILY lorazepam 0.5 mg PO BEDTIME PRN [matectomy BRA As directed] metoprolol succinate ER (Toprol XL) 25 mg PO DAILY 90 days Novolog FlexPen U-100 Insulin (insulin aspart U-100) 10 units with breakfast and lunch and 14 units with subcutaneously; NS ondansetron 8 mg PO Q8H oxycodone 5 mg PO Q8H PRN paroxetine HCl 20 mg PO DAILY 90 days pen needle, diabetic (BD Ultra-Fine Micro Pen Needle) as directed with insulin quetiapine 50 mg PO BEDTIME ropinirole 1 mg PO BID solifenacin (Vesicare) 5 mg PO DAILY triamcinolone acetonide 0.1% 1 appl topical DAILY umeclidinium-vilanterol 62.5-25 mcg/actuation (Anoro Ellipta) 1 inh inhalation DAILY zinc gluconate 50 mg PO DAILY HPI HPI Comments History of Present Illness Details 63 YO F who is seen in consultation for T2DM at the request of PCP. She had previously based seen by myself for thyroid nodules as well as an adrenal mass. Workup showed elevated urinary normetanephrines. She is also status post FNA of right lower and isthmus nodule with benign cytology Initially diagnosed with T2DM in 10 yrs ago . Was initially started on treatment with Glipizide . Current regimen metformin ER 500 mg QD Couldn't tolerate BID Lantus 24 units Novolog 10 units with breakfast and lunch and 24 units with dinner Vinnie download shows she is using the Vinnie 94% of the time. Average glucose is 223 with G mi of 8.6% per 14% range with 86% hyperglycemia and no hypoglycemia. Castano shows increased point care after dinner . Family history of T2DM in Father . Has eyes checked yearly, last eye exam 2 yrs ago , denies retinopathy. has neuropathy,,not sees podiatry. Denies nephropathy, not on MO/ARB. Does not HLD, Not on statin. Denies CAD. Denies hypoglycemia Not Had diabetes education. 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 Cervical cancer screening Generalized anxiety disorder Type 2 diabetes mellitus with hyperglycemia History of anal fissures Peripheral vascular disease Urinary incontinence Hypertension COPD (chronic obstructive pulmonary disease) Hypercholesterolemia Surgical History H/O total mastectomy of left breast (12/21/22) History of biopsy History of endometrial ablation Hx of tubal ligation History of tonsillectomy History of appendectomy History of cholecystectomy History of bladder surgery History of left knee replacement Family History Mother History of breast cancer Father Prostate CA Brother No problems noted. Brother No problems noted. Daughter No problems noted. Social History Household Members: Family Household Members Other:: Daughter Housing: House Are you a primary home care scheduler to a significant other at home: Yes () Do you presently have visiting nurse or other home services: No Alcohol intake: current Alcohol intake frequency: holidays/special occasions only Comment: Fell 08/2022, leg weakness Patient Tobacco Use Status: Current everyday Tobacco user Tobacco use type: Cigarette Years Smoked: 40 e-Cigarette/Vaping Use: Never Used Second Hand Smoke Exposure: No service: No Current occupational status: disabled Cognitive needs: No Hearing needs: No Vision needs: Yes Female Reproductive History Menstrual Age of Menarche: 10 Physical Exam Vital Signs: Last Vital Signs Pulse 80 11/24/23 12:56 BP 138/76 11/24/23 12:56 BMI result Body Mass Index 35.2 Assessment & Plan Assessment & Plan (1) Type 2 diabetes mellitus with hyperglycemia: Comment: Dr. Osman Code(s): E11.65 - Type 2 diabetes mellitus with hyperglycemia Plan: This 63-year-old white female with history of type 2 diabetes being treated with sub maximal doses of metformin and and basal-bolus insulin with improved good glycemic control and no known microvascular or macrovascular complications Plan is to start Ozempic 0.25 mg Q weekly. Will titrate as tolerated. Went over side effects of Ozempic including but not limited to nausea, vomiting rare risk of pancreatitis. Will have patient report any episodes of hypoglycemia to adjust insulin. Also recommend the patient follow up with Podiatry and Ophthalmology. Ozempic 0.25 mg samples given the patient lot number and [id number] expiration date 05/20/2025 (2) Adrenal adenoma: Code(s): D35.00 - Benign neoplasm of unspecified adrenal gland Plan: History of bilateral adrenal adenomas. Previous workup showed elevated urinary normetanephrines otherwise normal workup. Lesion appeared to have low-density and concern for malignancy was low. Repeat imaging not show any change in the size or characteristics of mass Plan is to re check plasma metanephrines . Will perform a 1 mg dexamethasone suppression test (3) Thyroid nodule: Code(s): E04.1 - Nontoxic single thyroid nodule Plan: She has a multinodular goiter Status post FNA of right thyroid nodule in the past with benign cytology. She is clinically and biochemically euthyroid. Plan is to continue to follow with serial ultrasounds Medications: Refilled dexamethasone 1 mg PO ONCE 1 tab 0RF Coding Level of Care Code Est Pt Level 4 (07974) Diagnoses Type 2 diabetes mellitus with hyperglycemia E11.65 Adrenal adenoma D35.00 Thyroid nodule E04.1
== END 2023-11-24 13:55 | disposition home or self-care (01) ==
PROVIDERS: PCP Internal Medicine; Visit Provider Internal Medicine Endocrinology, Diabetes & Metabolism
DX: E11.65 Type 2 diabetes mellitus with hyperglycemia (principal); D35.00 Benign neoplasm of unspecified adrenal gland; E04.1 Nontoxic single thyroid nodule
CPT/HCPCS: 99214

== ENCOUNTER → 2023-11-24 12:48 | Outpatient (BNVA) | payer OTHER, SELFPAY | PROVIDERS: PCP Internal Medicine; Visit Provider Internal Medicine Endocrinology, Diabetes & Metabolism | DX: E11.65 Type 2 diabetes mellitus with hyperglycemia (principal); D35.00 Benign neoplasm of unspecified adrenal gland; E04.1 Nontoxic single thyroid nodule | CPT/HCPCS: 82947; 99212 ==

== ENCOUNTER 2024-01-13 14:49 | Outpatient (AMB) | payer OTHER, SELFPAY ==
[2024-01-13 14:50] VITALS: BP 132/68; PULSE 90; O2SAT 98; BMI 34.7
--- NOTE | 2024-01-13 14:50 | A.OFFPC_ITS ---
Vital Signs 01/13/24 14:50 Height 5 ft 4 in Weight 202 lb 2.622 oz BMI 34.7 BP 132/68 Blood Pressure Location Rt brachial Position Sitting Pulse 90 Pulse Source Pulse Oximeter Pulse Oximetry (%) 98 Oxygen Delivery Method Room Air Intake Visit Reasons: DM Classified Advertising Supervisor Required: No Allergies diclofenac [From Voltaren] Allergy (Severe, Verified 01/13/24 14:58) enlarged liver lisinopril [From Zestril] Allergy (Severe, Verified 01/13/24 14:58) fluid in lung Penicillins [PENICILLINS] Allergy (Intermediate, Verified 01/13/24 14:58) Facial Swelling oxybutynin [Oxybutynin] Adverse Reaction (Severe, Verified 01/13/24 14:58) body twitching metformin Adverse Reaction (Intermediate, Verified 01/13/24 14:58) Diarrhea duloxetine Adverse Reaction (Intermediate, Uncoded 01/13/24 14:58) tachycardia Tobacco use date assessed: 01/13/24 Dental Screening Dental Screen Date: 01/13/24 HPI DM HPI Details 63-year-old obese female smoker with unc ontrolled diabetes mellitus hypercholesterolemia, COPD, hypertension left breast cancer status post mastectomy November 2022 coming in for follow-up. Last seen in September 2023. Patient follows up with the Hematology Oncology seen last November 2023 had some tachycardia and was placed on Toprol 25 mg once a day. Question of an arrhythmia and referral for cardiology evaluation. has 2 cigarettes a day. knows still no blood work. Patient spent 25 minutes asking for different prescriptions for incontinence products for compression stocking and ETC from me rather than discussion of the multiple medical problems so at this point basically I will ask her to see me at another time for discussion of other medical problems. 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 Cervical cancer screening Generalized anxiety disorder Type 2 diabetes mellitus with hyperglycemia History of anal fissures Peripheral vascular disease Urinary incontinence Hypertension COPD (chronic obstructive pulmonary disease) Hypercholesterolemia Surgical History H/O total mastectomy of left breast (12/21/22) History of biopsy History of endometrial ablation Hx of tubal ligation History of tonsillectomy History of appendectomy History of cholecystectomy History of bladder surgery History of left knee replacement Family History Mother History of breast cancer Father Prostate CA Brother No problems noted. Brother No problems noted. Daughter No problems noted. Social History Household Members: Family Household Members Other:: Daughter Housing: House Are you a primary neurocritical care physician to a significant other at home: Yes () Do you presently have visiting nurse or other home services: No Alcohol intake: current Alcohol intake frequency: holidays/special occasions only Comment: Fell 08/2022, leg weakness Patient Tobacco Use Status: Current everyday Tobacco user Tobacco use type: Cigarette Cigarettes Per Day: 2 Years Smoked: 40 Packs per year/per ci.00 e-Cigarette/Vaping Use: Never Used Second Hand Smoke Exposure: No service: No Current occupational status: disabled Cognitive needs: No Hearing needs: No Vision needs: Yes Female Reproductive History Menstrual Age of Menarche: 10 Questionnaire PHQ-9 Over the last 2 weeks, how often have you been bothered by any of the following problems? 1. Little interest or pleasure in doing things: not at all 2. Feeling down, depressed, or hopeless: not at all 3. Trouble falling or staying asleep, or sleeping too much: not at all 4. Feeling tired or having little energy: not at all 5. Poor appetite or overeating: not at all 6. Feeling bad about yourself - or that you are a failure or have let yourself or your family down: not at all 7. Trouble concentrating on things, such as reading the newspaper or watching television: not at all 8. Moving or speaking so slowly that other people could have noticed. Or the opposite - being so fidgety or restless that you have been moving around a lot more than usual: not at all 9. Thoughts that you would be better off or of hurting yourself in some way: not at all Total score: 0 Depression Screening Interpretation: Negative Depression Screening Done: Yes Source: Developed by Drs. Ravindra Calderon, Jena Sweet, García Barnard and colleagues, with an educational hayde from [employer]. Thrive Questionnaire Date Thrive assessed: 01/13/24 I am a: Patient What is your living situation today?: I have a steady place to live Within the past 12 months, did the food you bought not last and you didn't have the money to get more?: Never true Within the past 12 months, did you worry whether your food would run out before you got money to buy more?: Never true Do you have trouble paying for medicines?: No Do you have trouble getting transportation to medical appointments?: No Do you have trouble paying your heating and electricity bill?: No Do you have trouble taking care of your child, family member or friend?: No Do you have trouble with day-to-day activities such as bathing, preparing meals, shopping, managing finances, etc.?: No Are you currently unemployed and looking for a job?: No Are you interested in more education?: No Please select the resources that you would like help with: None THRIVE Score: 0 AUDIT C Alcohol Use Questionnaire (AUDIT-C) 1. How often do you have a drink containing alcohol?: Never 2. How many drinks containing alcohol do you have on a typical day when you are drinking?: 1 or 2 3. How often do you have six or more drinks on one occasion?: Never Total Score: 0 PARMJIT-7 AMB Questionnaire PARMJIT-7 Date PARMJIT - 7 assessed: 01/13/24 Source: Developed by Drs. Ravindra Calderon, Jena Sweet, García Barnard and colleagues, with an educational hayde from [employer]. Physical exam (Primary Care) Vital Signs: Last Vital Signs Pulse 90 01/13/24 14:50 BP 132/68 01/13/24 14:50 Pulse Ox 98 01/13/24 14:50 Oxygen Delivery Method Room Air 01/13/24 14:50 BMI result Body Mass Index 34.7 Tobacco/Smoking Status: Tobacco use Status Tobacco use date assessed 01/13/24 01/13/24 15:10 Patient Tobacco Use Status Current everyday Tobacco 01/13/24 15:10 Tobacco use type Cigarette 01/13/24 15:10 e-Cigarette/Vaping Use Never Used 01/13/24 15:10 PHQ-9: PHQ-9 Score PHQ-9: Total score 0 01/13/24 15:11 Depression Screening Interpretation: Negative Thrive Assessment: Date of Thrive Assessment Date Thrive assessed 01/13/24 01/13/24 15:10 Const General: alert; No acute distress Eyes Conjunctivae: conjunctivae normal Resp Auscultation: clear to auscultation bilaterally Cardio Rate: regular rate Rhythm: regular rhythm GI Inspection: Yes normal to inspection Extrem General: Yes normal to inspection and No edema Results AMB Hemoglobin A1c AMB Hemoglobin A1c 9.0 % Last Edit by EDEN Farris on 01/13/24 15:11 Results Reviewed Results Reviewed: Laboratory Last Values Hgb A1c (Clinic) 9.0 % (4.0-6.0) H 01/13/24 14:08 Assessment and Plan Assessment & Plan (1) Tobacco abuse: Code(s): Z72.0 - Tobacco use Plan: Patient has been strongly advised to stop smoking! Patient is still smoking 2 cigarettes a day (2) Invasive ductal carcinoma of left breast: Comment: 12/21/22, left simple mastectomy with targeted axillary dissection via needle localization of a lymph node was performed by Dr. Teran Code(s): C50.912 - Malignant neoplasm of unspecified site of left female breast Plan: Continue to follow-up with Hematology-Oncology (3) Type 2 diabetes mellitus with hyperglycemia: Comment: Dr. Osman Code(s): E11.65 - Type 2 diabetes mellitus with hyperglycemia Plan: Decrease the amount of carbohydrate intake, pasta, bread, rice and potatoes are all sugar and that is aside from all the sweet stuff, remember that fruits are good but they are Sweet also. Hemoglobin A1c goal of less than 6.5. Patient presently on Lantus 24 units once a day NovoLog sliding scale (4) Hypertension: Code(s): I10 - Essential (primary) hypertension Plan: Continue with blood pressure medication. Decrease salt intake and exercise patient takes metoprolol 25 mg once a day amlodipine 5 mg once a day (5) Hypercholesterolemia: Code(s): E78.00 - Pure hypercholesterolemia, unspecified Plan: Avoid fried foods, chicken skin, eggs, butter margarine, pastries and meat. Be it pork or beef they have a lot of cholesterol. Blood work requested still not done. LDL goal of less than 100 and triglyceride of less than 150 (6) COPD (chronic obstructive pulmonary disease): Code(s): J44.9 - Chronic obstructive pulmonary disease, unspecified Plan: Patient is strongly advised to stop smoking. Continue with the inhalers. (7) Palpitations: Code(s): R00.2 - Palpitations Plan: Referral to cardiology done (8) Peripheral vascular disease: Code(s): I73.9 - Peripheral vascular disease, unspecified Plan: When sitting down elevate the legs, exercise, and support stockings prescription for support stockings. Orders: Orders AMB Hemoglobin A1c Today E11.65 - Type 2 diabetes mellitus with hyperglycemia Referrals Ophthalmology Referral E11.65 - Type 2 diabetes mellitus with hyperglycemia Cardiology Referral R00.2 - Palpitations Medications: New compress.stocking,knee,reg,lrg As directed 20-30 mm HG 12 ea 0RF I73.9 - Peripheral vascular disease, unspecified [PULL UPS medium] As directed 100 ea 12RF N39.41 - Urge incontinence [Incontinence BED PADS WASHABLE] As directed 2 ea 12RF N39.41 - Urge incontinence [baby wipes] As directed 1 ea 12RF N39.41 - Urge incontinence Refilled quetiapine (Seroquel) 50 mg PO BEDTIME 30 tabs 0RF G47.00 - Insomnia, unspecified oxycodone-acetaminophen 5-325 mg (Percocet) Partial Fill upon patient request. 1 tab PO Q8H PRN 50 tabs 0RF Breakthrough Pain, Moderate N39.41 - Urge incontinence Coding Level of Care Code Est Pt Level 4 (77322) Diagnoses Tobacco abuse Z72.0 Invasive ductal carcinoma of left breast C50.912 Type 2 diabetes mellitus with hyperglycemia E11.65 Hypertension I10 Hypercholesterolemia E78.00 COPD (chronic obstructive pulmonary disease) J44.9 Palpitations R00.2 Peripheral vascular disease I73.9
== END 2024-01-13 15:54 | disposition home or self-care (01) ==
PROVIDERS: PCP Internal Medicine; Visit Provider Internal Medicine
DX: E11.65 Type 2 diabetes mellitus with hyperglycemia (principal); C50.912 Malignant neoplasm of unspecified site of left female breast; J44.9 Chronic obstructive pulmonary disease, unspecified; I73.9 Peripheral vascular disease, unspecified; Z72.0 Tobacco use; I10 Essential (primary) hypertension; E78.00 Pure hypercholesterolemia, unspecified; R00.2 Palpitations
CPT/HCPCS: 83036; 99214

== ENCOUNTER 2024-03-22 12:54 | Outpatient (AMB) | payer OTHER, SELFPAY ==
[2024-03-22 13:03] VITALS: BP 118/72; PULSE 84
--- NOTE | 2024-03-22 13:03 | MHC.OFFVIS ---
Vital Signs 03/22/24 13:03 Height 5 ft 4 in BP 118/72 Blood Pressure Location Rt brachial Position Sitting Pulse 84 Pulse Source Pulse Oximeter Intake Visit Reasons: f/u Type 2 DM, adrenal adenoma , MNG-confirmed Intake Note: Patient presents today to follow up on D2MT, adrenal adenoma and MNG. Last Diabetic Eye exam: Patient has appt for 03/23/24 for eye exam. Last Podiatry Visit: Doesn't have one Random Glucose: 207 mg/dl HgA1c: 9.0% 01/13/24 Ediphone Operator Required: No Accompanied by: Daughter Allergies diclofenac [From Voltaren] Allergy (Severe, Verified 03/22/24 13:13) enlarged liver lisinopril [From Zestril] Allergy (Severe, Verified 03/22/24 13:13) fluid in lung Penicillins [PENICILLINS] Allergy (Intermediate, Verified 03/22/24 13:13) Facial Swelling oxybutynin [Oxybutynin] Adverse Reaction (Severe, Verified 03/22/24 13:13) body twitching metformin Adverse Reaction (Intermediate, Verified 03/22/24 13:13) Diarrhea duloxetine Adverse Reaction (Intermediate, Uncoded 03/22/24 13:13) tachycardia HPI Comments Details: 64 YO F who is seen in consultation for T2DM at the request of PCP. She had previously based seen by myself for thyroid nodules as well as an adrenal mass. Workup showed elevated urinary normetanephrines. She is also3 status post FNA of right lower and isthmus nodule with benign cytology Initially diagnosed with T2DM in 10 yrs ago . Was initially started on treatment with Glipizide . Current regimen metformin ER 500 mg QD Couldn't tolerate BID . Not taking metformin or Ozempic Lantus 24 units Novolog 10 units with breakfast and lunch and 15 units with dinner Vinnie download shows she is using the Vinnie 97% of the time. Average glucose is 223 with G mi of 8.6% per 18% range with 72% hyperglycemia and no hypoglycemia. Castano shows increased point care throughout the day . Family history of T2DM in Father . Has eyes checked yearly, eye exam tomorrow , denies retinopathy. has neuropathy,,not sees podiatry. Denies nephropathy, not on MO/ARB. Does not HLD, Not on statin. Denies CAD. Denies hypoglycemia Not Had diabetes education. 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 Cervical cancer screening Generalized anxiety disorder Type 2 diabetes mellitus with hyperglycemia History of anal fissures Peripheral vascular disease Urinary incontinence Hypertension COPD (chronic obstructive pulmonary disease) Hypercholesterolemia Surgical History H/O total mastectomy of left breast (12/21/22) History of biopsy History of endometrial ablation Hx of tubal ligation History of tonsillectomy History of appendectomy History of cholecystectomy History of bladder surgery History of left knee replacement Family History Mother History of breast cancer Father Prostate CA Brother No problems noted. Brother No problems noted. Daughter No problems noted. Social History Household Members: Family Household Members Other:: Daughter Housing: House Are you a primary home day care provider to a significant other at home: Yes () Do you presently have visiting nurse or other home services: No Alcohol intake: current Alcohol intake frequency: holidays/special occasions only Comment: Fell 08/2022, leg weakness Patient Tobacco Use Status: Current everyday Tobacco user Tobacco use type: Cigarette Cigarettes Per Day: 2 Years Smoked: 40 e-Cigarette/Vaping Use: Never Used Second Hand Smoke Exposure: No service: No Current occupational status: disabled Cognitive needs: No Hearing needs: No Vision needs: Yes Female Reproductive History Menstrual Age of Menarche: 10 Physical Exam Vital Signs: Last Vital Signs Pulse 84 03/22/24 13:03 BP 118/72 03/22/24 13:03 Absence of Cushingoid features. Absence of acromegalic features. Neck exam reveals nl size thyroid about 15 gms. No thyroid nodules palpable. No carotid bruits present. Lungs CTA. Heart S1 S2, Reg R/R. No M/R/ G. Skin exam reveals absence of vitiligo or acanthosis nigricans. Abdominal exam reveals Soft NT/ND with NA BS. No organomegaly present. Neck Other: . Extrem Other: Visual exam of foot performed. No ulcerations or open lesions. There is a pleuritic papular rash on both lower extremities and left shoulder. No onchomycosis, no callouses.Pulses 2 + distally Sensation intact to monofilament exam. Vibratory sensation sensed is decreased with 128 Hz tuning fork Assessment & Plan Assessment & Plan (1) Type 2 diabetes mellitus with hyperglycemia: Comment: Dr. Osman Code(s): E11.65 - Type 2 diabetes mellitus with hyperglycemia Category: Medical Plan: This 64-year-old white female with history of type 2 diabetes being treated with sub maximal doses of metformin and and basal-bolus insulin with poor deteriorated glycemic control and no known microvascular or macrovascular complications Plan is to increase Lantus to 30 units and by 4 units every 3-4 days to get fasting blood sugar <150-200. Will have patient follow up with tobacco prevention health educator. Gave information about the iLet pump which might be helpful since patient is committed to insulin long-term (2) Adrenal adenoma: Code(s): D35.00 - Benign neoplasm of unspecified adrenal gland Category: Medical Plan: History of bilateral adrenal adenomas. Previous workup showed elevated urinary normetanephrines otherwise normal workup. Lesion appeared to have low-density and concern for malignancy was low. Repeat imaging not show any change in the size or characteristics of mass. Patient Did not perform 1 mg dexamethasone suppression test will plasma metanephrines Plan is to re check plasma metanephrines . Will perform a 1 mg dexamethasone suppression test . Stressed importance of doing both tests (3) Thyroid nodule: Code(s): E04.1 - Nontoxic single thyroid nodule Category: Medical Plan: She has a multinodular goiter Status post FNA of right thyroid nodule in the past with benign cytology. She is clinically and biochemically euthyroid. Plan is to continue to follow with serial ultrasounds Medications: Changed From insulin glargine (Lantus Solostar U-100 Insulin) 24 units (0.24 mL) subcut DAILY 15 mL 3RF E11.65 - Type 2 diabetes mellitus with hyperglycemia To insulin glargine (Lantus Solostar U-100 Insulin) 30 units (0.3 mL) subcut DAILY 15 mL 3RF E11.65 - Type 2 diabetes mellitus with hyperglycemia Refilled pen needle, diabetic (BD Ultra-Fine Micro Pen Needle) as directed with insulin 100 ea 2RF E11.65 - Type 2 diabetes mellitus with hyperglycemia dexamethasone 1 mg PO ONCE 1 tab 0RF Coding Level of Care Code Est Pt Level 4 (40185) Diagnoses Type 2 diabetes mellitus with hyperglycemia E11.65 Adrenal adenoma D35.00 Thyroid nodule E04.1
[2024-03-22 13:20] LABS: Glucose, Whole Blood 207 mg/dL (60-115)
== END 2024-03-22 13:45 | disposition home or self-care (01) ==
PROVIDERS: PCP Internal Medicine; Visit Provider Internal Medicine Endocrinology, Diabetes & Metabolism
DX: E11.65 Type 2 diabetes mellitus with hyperglycemia (principal); D35.00 Benign neoplasm of unspecified adrenal gland; E04.1 Nontoxic single thyroid nodule
CPT/HCPCS: 99214

== ENCOUNTER 2024-03-22 12:54 | Outpatient (REF) | payer OTHER, SELFPAY ==
[2024-03-22 15:06] LABS: Alanine Aminotransferase 22 U/L (0-31); Alkaline Phosphatase 132 U/L (39-117); Anion Gap 16 (12-20); Aspartate Amino Transferase 18 U/L (5-31); Bilirubin Total 0.6 mg/dL (0.0-1.0); Blood Urea Nitrogen 18 mg/dL (9-16); Calcium 10.1 mg/dL (8.4-10.2); Carbon Dioxide 21 mmol/L (22-29); Chloride 107 mmol/L (96-108); Cholesterol 227 mg/dL (<200); Estimated Glomerular Filt Rate > 60; Glucose Random 200 mg/dL (60-115); HDL Cholesterol 37 mg/dL (>40); LDL Cholesterol Calculated 131 mg/dL (<100); Potassium 4.4 mmol/L (3.3-5.1); Sodium 140 mmol/L (135-145); Total Protein 7.2 g/dL (6.5-8.0); Triglycerides 295 mg/dL (<150)
[2024-03-22 15:16] LABS: Free T4 (Free Thyroxine) 0.99 ng/dL (0.71-1.85); Thyroid Stimulating Hormone 1.92 uIU/mL (0.32-4.0)
[2024-03-22 15:29] LABS: Folate 11.7 ng/mL (> or = 4.0); Vitamin B12 561 pg/mL (200-900)
[2024-03-22 15:53] LABS: Creatinine Urine 168.57 mg/dL; Microalbum/Creatinine Ratio Ur 27.2 ug/mg cr (<30)
[2024-03-27 11:49] LABS: Metanephrine, Free 28 pg/mL (<=57); Normetanephrines, Free 86 pg/mL (<=148); Total Metanephrine, Free 114 pg/mL (<=205)
== END 2024-03-22 12:55 | disposition home or self-care (01) ==
LOC: HO.LAB 12:54
PROVIDERS: Absent Provider Internal Medicine; PCP Internal Medicine; Visit Provider Internal Medicine Endocrinology, Diabetes & Metabolism
DX: E11.65 Type 2 diabetes mellitus with hyperglycemia (principal); E04.1 Nontoxic single thyroid nodule; D35.00 Benign neoplasm of unspecified adrenal gland; I73.9 Peripheral vascular disease, unspecified
CPT/HCPCS: 36415; 80053; 80061; 82043; 82570; 82607; 82746; 82947; 83835; 84439; 84443; 99212

== ENCOUNTER 2024-03-29 13:56 | Outpatient (AMB) | payer OTHER, SELFPAY ==
--- NOTE | 2024-03-29 14:04 | A.OFFVIS_ITS ---
Vital Signs 03/29/24 14:05 Height 5 ft 4 in Weight 216 lb 0.848 oz BMI 37.1 BP 138/80 Blood Pressure Location Lt brachial Position Sitting Pulse 107 H Intake Visit Reasons: NPV/Po/Palpitation Intake Note: New patient dx palpitations Echo is a better guide for LV ejection fraction and by echocardiogram she is within normal limits. The stress test should be valid till September Allergies Problems Vitals Most Recent Medications Visits Diagnostics Most Recent [employer]: [employer] Present Accompanied by: Daughter Allergies diclofenac [From Voltaren] Allergy (Severe, Verified 03/22/24 13:13) enlarged liver lisinopril [From Zestril] Allergy (Severe, Verified 03/29/24 14:38) Angioedema Penicillins [PENICILLINS] Allergy (Intermediate, Verified 03/22/24 13:13) Facial Swelling oxybutynin [Oxybutynin] Adverse Reaction (Severe, Verified 03/22/24 13:13) body twitching metformin Adverse Reaction (Intermediate, Verified 03/22/24 13:13) Diarrhea duloxetine Adverse Reaction (Intermediate, Uncoded 03/22/24 13:13) tachycardia Medication List - Last Reconciled 03/29/24 by Angel Serrano MD acetaminophen 325 mg PO QID PRN albuterol sulfate 90 mcg/actuation 1 puff inhalation QID albuterol sulfate 2.5 mg (3 mL) inhalation Q4-6H PRN alcohol swabs (Alcohol Prep Pads) topically tests 4 X/day; amlodipine 5 mg PO BID 90 days ascorbic acid (vitamin C) (Vitamin C) 500 mg PO DAILY aspirin (Adult Aspirin Regimen) 81 mg PO DAILY 90 days [baby wipes As directed] blood sugar diagnostic (FreeStyle Lite Strips) check BS 3X/DAY blood-glucose meter (FreeStyle Lite Meter kit) As directed cholecalciferol (vitamin D3) 50 mcg PO DAILY clonidine HCl 0.1 mg PO BEDTIME clotrimazole 1% 1 appl topical BID 4 weeks collagenase clostridium histo. (Santyl) 1 appl topical DAILY compress.stocking,knee,reg,lrg As directed 20-30 mm HG cyanocobalamin (vitamin B-12) 1,000 mcg PO DAILY dexamethasone 1 mg PO ONCE docusate sodium (Colace) 100 mg PO BID ferrous sulfate (Iron (ferrous sulfate)) 325 mg PO FR@0900 fluticasone propionate 50 mcg/actuation (Flonase Allergy Relief) 1 spray intranasal BID [Incontinence BED PADS WASHABLE As directed] insulin glargine (Lantus Solostar U-100 Insulin) 30 units (0.3 mL) subcut DAILY lancets (FreeStyle Lancets) USE DIRECTED THREE TIMES A DAY (BULK) letrozole 2.5 mg PO DAILY lorazepam 0.5 mg PO BEDTIME PRN [matectomy BRA As directed] metoprolol succinate ER (Toprol XL) 25 mg PO DAILY 90 days Novolog FlexPen U-100 Insulin (insulin aspart U-100) 10 units with breakfast and lunch and 14 units with subcutaneously; NS ondansetron 8 mg PO Q8H oxycodone-acetaminophen 5-325 mg (Percocet) 1 tab PO Q8H PRN paroxetine HCl 20 mg PO DAILY 90 days pen needle, diabetic (BD Ultra-Fine Micro Pen Needle) as directed with insulin [PULL UPS medium As directed] quetiapine 50 mg PO BEDTIME ropinirole 1 mg PO BID solifenacin (Vesicare) 5 mg PO DAILY triamcinolone acetonide 0.1% 1 appl topical DAILY umeclidinium-vilanterol 62.5-25 mcg/actuation (Anoro Ellipta) 1 inh inhalation DAILY zinc gluconate 50 mg PO DAILY HPI Comments Details: Sarah was referred here for evaluation of palpitations and rapid heart rate. She says she has been recently getting symptoms of rapid heart rate even when she is resting and heart rate will go up to easily 150 beats per minute where she will feel rapid heart rate. One of these episodes happened while she was in the oncology department and heart rate was in the 150s and she was referred to the emergency room. Review the EKG was EKG suggestive sinus tachycardia. Other EKGs suggestive of atrial flutter. She remained with persistent tachycardia require IV diltiazem while she was in the emergency room and said after 3 boluses she felt better and her heart rate actually improved to 87 beats per minute. She comes today. She is very anxious. He has significant shortness of breath and came in a wheelchair related to COPD and has continued to smoke. She on EKG today shows sinus tachycardia at 107 beats per minute. She says these palpitation have been a recent origin. She has history of hypertension and has fairly labile blood pressure as per her in some of the blood pressure readings have still been quite elevated as per her. Although there is no clear pattern to it. She also has insulin-requiring diabetes. 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 Cervical cancer screening Generalized anxiety disorder Type 2 diabetes mellitus with hyperglycemia History of anal fissures Peripheral vascular disease Urinary incontinence Hypertension COPD (chronic obstructive pulmonary disease) Hypercholesterolemia Surgical History H/O total mastectomy of left breast (12/21/22) History of biopsy History of endometrial ablation Hx of tubal ligation History of tonsillectomy History of appendectomy History of cholecystectomy History of bladder surgery History of left knee replacement Family History Mother History of breast cancer Father Prostate CA Brother No problems noted. Brother No problems noted. Daughter No problems noted. Social History Household Members: Family Household Members Other:: Daughter Housing: House Are you a primary med care manager to a significant other at home: Yes () Do you presently have visiting nurse or other home services: No Alcohol intake: current Alcohol intake frequency: holidays/special occasions only Comment: Fell 08/2022, leg weakness Patient Tobacco Use Status: Current everyday Tobacco user Tobacco use type: Cigarette Cigarettes Per Day: 2 Years Smoked: 40 e-Cigarette/Vaping Use: Never Used Second Hand Smoke Exposure: No service: No Current occupational status: disabled Cognitive needs: No Hearing needs: No Vision needs: Yes Female Reproductive History Menstrual Age of Menarche: 10 Review of Systems Const Denies chills, Denies daytime sleepiness, Denies fatigue, Denies fever(s), Denies frequent falls, Denies poor appetite, Denies snoring, Denies stops breathing during sleep, Denies weakness, Denies weight gain and Denies weight loss Eyes Denies loss of vision ENT Denies dizziness and Denies hearing loss Card Denies chest pain, Denies claudication, Denies leg edema, Denies lightheadedness, Denies palpitations, Denies dyspnea, Denies dyspnea on exertion and Denies orthopnea Resp Denies cough, Denies excessive phlegm production, Denies dyspnea, Denies dyspnea on exertion, Denies snoring and Denies wheezing GI Denies abdominal pain, Denies hematochezia, Denies change in bowel habits, Denies nausea and Denies vomiting Denies urinary frequency and Denies dysuria Musc Denies arthralgias, Denies muscle weakness, Denies numbness and Denies other (frequent falls) Skin/Breast Denies nail changes and Denies rash Neuro Denies Abnormal speech present, Denies dizziness, Denies frequent falls, Denies loss of vision, Denies memory loss, Denies numbness and Denies weakness Psych Denies depression and Denies memory loss Endo Denies fatigue and Denies palpitations Rich/Lymph Reports easy bruising and Reports other (anemia) Aller/Immun Denies wheezing Physical Exam Vital Signs: Last Vital Signs Pulse 107 H 03/29/24 14:05 BP 138/80 03/29/24 14:05 BMI result Body Mass Index 37.1 Const General: cooperative, comfortable, alert, awake and anxious Nutritional Appearance: obese Orientation/consciousness: patient oriented x3 Limitations: wheelchair HEENT Head: Yes normocephalic and Yes atraumatic Neck Neck: Yes trachea midline, Yes supple and Yes no JVD Resp Effort & Inspection: normal respiratory effort Auscultation: no crackles, no wheezes and diminished lung sounds Cardio Jugular venous distension: no JVD Rate: tachycardic Rhythm: regular rhythm Heart sounds: S1 normal heart sound present, S2 normal heart sound present, no click, no gallops, no murmurs and no rubs GI Auscultation: normal bowel sounds Skin General skin exam: no rashes or lesions noted Neuro General: patient oriented x3 and no focal motor deficits Speech: No Abnormal speech present Extrem General: Yes no clubbing, cyanosis or edema Office Procedures EKG Details: EKG shows sinus tachycardia at 107 beats per minute with no acute changes [id number], Complete Assessment & Plan Assessment & Plan (1) Palpitations: Code(s): R00.2 - Palpitations Category: Medical Plan: Patient with significant symptoms of palpitation with heart rate going up to 151 60 beats per minute shows documented on the EKG. Some EKGs are suggestive sinus tachycardia others might suggest atrial flutter. This is unclear. However she did respond to Cardizem therapy IV. This raises the possibility of having atrial arrhythmias and/or SVT. Will obtain a 7 day Holter monitor to further assess for the same. Given highly symptomatic nature of her arrhythmias will switch her amlodipine to verapamil 120 mg b.i.d.. Advised to continue monitor blood pressure at home maintain a log. It is possible that the other etiology could include inappropriate sinus tachycardia, compensated sinus tachycardia to a COPD and/or anxiety/panic attacks. Advised stress mitigation strategies. Advise to avoid stimulants. Consider switching her albuterol to Xopenex. She is lot of personal stress related to her health and her 's health. She says she has lot of social stress related to their condition. (2) SOB (shortness of breath) on exertion: Code(s): R06.02 - Shortness of breath Plan: Shortness of breath on exertion in this middle-aged woman with multiple risk factors including longstanding smoking, diabetes, labile blood pressure. Will request an echocardiogram to evaluate LV systolic and diastolic function to evaluate for pulmonary hypertension as a secondary cause of COPD. Also myocardial ischemia is likely and will suggest a Eileen myocardial perfusion imaging to evaluate for the same. Most likely related to underlying COPD and/anxiety contributing to her worsening symptoms of shortness of breath as well. Deconditioning is possible as she is minimally active and could contribute to her worsening shortness of breath as well. Will follow up in the clinic after above-mentioned test. Thank you for allowing me to partake in her care Orders: Orders ECG 7 day holter monitor 03/29/24 R00.2 - Palpitations CA lexiscan stress w gracy Today R06.02 - Shortness of breath CA echo transthoracic complete 03/29/24 R00.2 - Palpitations Medications: New verapamil 120 mg PO BID 60 tabs 5RF R00.2 - Palpitations Discontinued amlodipine Discontinued Reason: Doctor's Order 5 mg PO BID 90 days 180 tabs 3RF I10 - Essential (primary) hypertension Coding Level of Care Code New Pt Level 4 (72983) Diagnoses Palpitations R00.2 SOB (shortness of breath) on exertion R06.02 CPT Codes EKG - CPT: 18841-[id number], Complete ([id number])
[2024-03-29 14:05] VITALS: BP 138/80; PULSE 107; BMI 37.1
== END 2024-03-29 14:41 | disposition home or self-care (01) ==
PROVIDERS: PCP Internal Medicine; Visit Provider Internal Medicine Cardiovascular Disease
DX: R00.2 Palpitations (principal); R06.02 Shortness of breath; R00.0 Tachycardia, unspecified
CPT/HCPCS: 93010; 99214

== ENCOUNTER → 2024-03-29 13:56 | Outpatient (BNVA) | payer OTHER, SELFPAY | PROVIDERS: PCP Internal Medicine; Visit Provider Internal Medicine Cardiovascular Disease | DX: R00.2 Palpitations (principal); R06.02 Shortness of breath | CPT/HCPCS: 93005; 99212 ==

== ENCOUNTER 2024-04-05 16:46 | Emergency (ER) | payer OTHER, SELFPAY ==
--- NOTE | ~2024-04-05 | XR_ITS ---
EXAMINATION: XR KNEE, LEFT CLINICAL INFORMATION: Fall COMPARISON: None available. TECHNIQUE: 2 views of the left knee. FINDINGS: There is a 3 component left knee replacement in satisfactory position. No fracture or dislocation. There is a large joint effusion. There is soft tissue swelling over the anterior knee. XR/XR knee LT 2V IMPRESSION: No fracture or dislocation. Large joint effusion and anterior soft tissue swelling.
--- NOTE | ~2024-04-05 | XR_ITS ---
EXAMINATION: XR HIP, LEFT CLINICAL INFORMATION: Fall COMPARISON: None available. TECHNIQUE: Two views of the left hip. One view of the pelvis FINDINGS: Bone alignment is normal. No fracture or dislocation. There is arthritis of both hip joints with joint space narrowing and osteophyte formation. Bones of the pelvis are unremarkable. Degenerative changes of the visualized lower lumbar spine. Spinal stimulator lead projects over the right sacrum. XR/XR hip LT w PEL1V IMPRESSION: Arthritis. No fracture or dislocation.
[2024-04-05 16:54] VITALS: BP 159/94; PULSE 101; O2SAT 99
[2024-04-05 16:58] VITALS: BP 163/86; PULSE 104; RESP 16; TEMP 37.1; O2SAT 98; BMI 36.6
--- NOTE | 2024-04-05 17:59 | ED.GENADULT ---
HPI - General Adult General Chief complaint: Fall Stated complaint: mechanical fall, left knee pain Time Seen by Provider: 04/05/24 17:21 Source: patient, RN notes reviewed and old records reviewed Mode of arrival: EMS Limitations: no limitations History of Present Illness HPI narrative: 64-year-old female with past medical history significant for breast cancer followed by Dr. Mitchell, restless legs syndrome, obesity, type 2 diabetes, COPD, hypertension, hyperlipidemia presents for evaluation of left knee pain. Patient has a left knee prosthesis. She reports that she was walking into her house today. She slipped in the porch because ?it was raining and wet. ? She is unsure exactly how she went down but remembers landing on her left knee She believes her foot was bent behind her Denies hitting her head or losing consciousness She complains of 10/10 left knee pain Denies any headache or neck pain, she has not anticoagulated The patient reports being unable to bear weight after the fall Related Data Home Medications ?Medication ?Instructions ?Recorded ?Confirmed acetaminophen 325 mg capsule 325 mg PO QID PRN Pain 09/01/22 03/29/24 ascorbic acid (vitamin C) 500 mg 500 mg PO DAILY 09/04/22 03/29/24 tablet (Vitamin C) cyanocobalamin (vitamin B-12) 1,000 mcg PO DAILY 09/04/22 03/29/24 1,000 mcg tablet ferrous sulfate 325 mg (65 mg 325 mg PO FR@0900 09/04/22 03/29/24 iron) tablet (Iron (ferrous sulfate)) zinc gluconate 50 mg tablet 50 mg PO DAILY 09/04/22 03/29/24 quetiapine 50 mg tablet 50 mg PO BEDTIME 06/23/23 03/29/24 Previous Rx's ?Medication ?Instructions ?Recorded blood-glucose meter (FreeStyle #1 ea 05/28/22 Lite Meter kit) triamcinolone acetonide 0.1 % 1 appl topical DAILY 12/01/22 topical cream lorazepam 0.5 mg tablet 0.5 mg PO BEDTIME PRN Insomnia #30 01/06/23 tabs collagenase clostridium histo. 250 1 appl topical DAILY to debride 01/07/23 unit/gram topical ointment (Santyl) slough #30 grams ondansetron 8 mg disintegrating 8 mg PO Q8H #50 tabs 05/11/23 tablet docusate sodium 100 mg capsule 100 mg PO BID #60 caps 06/23/23 (Colace) fluticasone propionate 50 1 spray intranasal BID #35 mL 06/23/23 mcg/actuation nasal spray,suspension (Flonase Allergy Relief) alcohol swabs (Alcohol Prep Pads) See Rx Instructions topical 08/12/23 .COMPLEX #200 ea aspirin 81 mg tablet,delayed 81 mg PO DAILY 90 days #90 tabs 08/12/23 release (Adult Aspirin Regimen) solifenacin 5 mg tablet (Vesicare) 5 mg PO DAILY #90 tabs 08/12/23 clonidine HCl 0.1 mg tablet 0.1 mg PO BEDTIME #90 tabs 09/08/23 matectomy BRA #2 ea 10/11/23 metoprolol succinate 25 mg 25 mg PO DAILY 90 days #90 tabs 10/11/23 tablet,extended release 24 hr (Toprol XL) paroxetine HCl 20 mg tablet 20 mg PO DAILY 90 days #90 tabs 10/11/23 umeclidinium 62.5 mcg-vilanterol 1 inh inhalation DAILY #60 ea 10/11/23 25 mcg/actuation powdr for inhalation (Anoro Ellipta) cholecalciferol (vitamin D3) 50 50 mcg PO DAILY #90 caps 10/28/23 mcg (2,000 unit) capsule Novolog FlexPen U-100 Insulin 100 See Rx Instructions subcut 11/22/23 unit/mL (3 mL) subcutaneous .COMPLEX #15 mL (insulin aspart U-100) albuterol sulfate 90 mcg/actuation 1 puff inhalation QID #8.5 grams 11/23/23 aerosol inhaler letrozole 2.5 mg tablet 2.5 mg PO DAILY #90 tabs 11/23/23 lancets 28 gauge (FreeStyle #100 ea 01/11/24 Lancets) Incontinence BED PADS WASHABLE #2 ea 01/13/24 PULL UPS medium #100 ea 01/13/24 baby wipes #1 ea 01/13/24 compress.stocking,knee,reg,lrg #12 ea 01/13/24 oxycodone-acetaminophen 5 mg-325 1 tab PO Q8H PRN Breakthrough 01/13/24 mg tablet (Percocet) Pain, Moderate #50 tabs blood sugar diagnostic (FreeStyle #100 ea 02/07/24 Lite Strips) ropinirole 1 mg tablet 1 mg PO BID #180 tabs 02/07/24 clotrimazole 1 % topical cream 1 appl topical BID 4 weeks #45 03/21/24 grams dexamethasone 1 mg tablet 1 mg PO ONCE #1 tab 03/22/24 insulin glargine 100 unit/mL (3 30 unit (0.3 mL) subcut DAILY #15 03/22/24 mL) subcutaneous pen (Lantus mL Solostar U-100 Insulin) pen needle, diabetic 32 gauge x #100 ea 03/22/2411/24 (BD Ultra-Fine Micro Pen Needle) verapamil 120 mg tablet 120 mg PO BID #60 tabs 03/29/24 albuterol sulfate 2.5 mg/3 mL 2.5 mg (3 mL) inhalation Q4-6H PRN 03/31/24 (0.083 %) solution for nebulization for wheezing #180 mL duloxetine 20 mg capsule,delayed 20 mg PO BID #60 caps 04/05/24 release oxycodone 5 mg tablet 5 mg PO Q4H PRN severe pain (scale 04/05/24 score 7-10) #12 tabs Allergies Allergy/AdvReac Type Severity Reaction Status Date / Time diclofenac [From Voltaren] Allergy Severe enlarged Verified 03/22/24 13:13 liver lisinopril [From Zestril] Allergy Severe Angioedema Verified 03/29/24 14:38 Penicillins [PENICILLINS] Allergy Intermediate Facial Verified 03/22/24 13:13 Swelling oxybutynin [Oxybutynin] AdvReac Severe body Verified 03/22/24 13:13 twitching metformin AdvReac Intermediate Diarrhea Verified 03/22/24 13:13 gabapentin AdvReac Hypertensio Verified 04/05/24 17:00 n duloxetine AdvReac Intermediate tachycardia Uncoded 03/22/24 13:13 Review of Systems Constitutional: Constitutional: Denies body ache(s), Denies chills, Denies frequent falls and Denies headache(s) ENT: Denies headache(s) and Denies sore throat Cardiovascular: Cardiovascular: Denies chest pain and Denies dyspnea Respiratory: Respiratory: Denies cough and Denies dyspnea Gastrointestinal: Gastrointestinal: Denies abdominal pain, Denies nausea and Denies vomiting Musculoskeletal: Musculoskeletal: Reports arthralgias, Reports joint swelling and Reports limited range of motion Integumentary/Breasts: Skin/Breast: Denies rash Neurologic: Denies frequent falls and Denies headache(s) [facility] Past Medical History Medical History History of short term memory loss [place] in place Smoker Family history of prostate cancer in father Leg swelling Shortness of breath Effusion of left knee Weakness Fall Thyroid nodule Adrenal adenoma Vision changes Diabetes History of palpitations History of unsteady gait Low back pain Arthritis Mild heartburn Hx of renal calculi Vaginal yeast infection Encounter to discuss test results 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 Cervical cancer screening Generalized anxiety disorder Type 2 diabetes mellitus with hyperglycemia History of anal fissures Peripheral vascular disease Urinary incontinence Hypertension COPD (chronic obstructive pulmonary disease) Hypercholesterolemia Surgical History H/O total mastectomy of left breast (12/21/22) History of biopsy History of endometrial ablation Hx of tubal ligation History of tonsillectomy History of appendectomy History of cholecystectomy History of bladder surgery History of left knee replacement Family History Family History Mother History of breast cancer Father Prostate CA Brother No problems noted. Brother No problems noted. Daughter No problems noted. Social History Social History Household Members: Family Household Members Other:: Daughter Housing: House Are you a primary patient care coordinator to a significant other at home: Yes () Do you presently have visiting nurse or other home services: No Alcohol intake: current Alcohol intake frequency: holidays/special occasions only Comment: Fell 08/2022, leg weakness Patient Tobacco Use Status: Current everyday Tobacco user Tobacco use type: Cigarette Cigarettes Per Day: 2 Years Smoked: 40 e-Cigarette/Vaping Use: Never Used Second Hand Smoke Exposure: No Advance Directives: Yes Advance Directives Information Provided: No Advance Directives on File: No service: No Current occupational status: disabled Cognitive needs: No Hearing needs: No Vision needs: Yes Physical Exam ED Vital Signs: Vital Signs - 24 hr 04/05/24 16:58 Temperature 98.7 F Pulse Rate 104 H Respiratory Rate 16 Blood Pressure 163/86 H Pulse Oximetry 98 Oxygen Delivery Method Room Air BMI result Body Mass Index 36.6 Const General: healthy appearing, comfortable, no acute distress, alert and awake Nutritional Appearance: well nourished Orientation/consciousness: patient oriented x3 HENMT Head: Yes normocephalic and Yes atraumatic Eyes Eyelids: Yes eyelids normal Conjunctivae: conjunctivae normal Sclerae: sclerae normal Corneas: corneas normal Pupils: Equal, round and reactive pupils present EOM: EOMs intact bilaterally Neck Neck: Yes full ROM Resp Effort & Inspection: normal respiratory effort, able to speak in complete sentences and not labored Skin General skin exam: elasticity normal Neuro General: patient oriented x3 Cranial nerves: Yes Equal, round and reactive pupils present and Yes Bilaterally intact EOM present Cognition (Neuro): normal cognition Extrem Other: Large left anterior surgical scar. There is tenderness globally to left knee. No open wounds. There is some ecchymosis to the left inferior patella. Patient has decreased range of motion with flexion left knee. The patient has mild left hip tenderness without deformity, no shortening or rotation. No left ankle tenderness or edema Course Reevaluation(s) Reevaluation #1: X-rays negative for fracture or dislocation. The patient was offered consideration for rehab but she declines. She would like to go home. She lives with her daughter and actually has physical therapy coming to the house tomorrow already. Plan to discharge her with a short course of oxycodone and crutches. Time: 20:13 Medications Administered Discontinued Medications Generic Name Dose Route Start Last Admin Trade Name Freq PRN Reason Stop Dose Admin Oxycodone HCl 5 mg 04/05/24 17:26 04/05/24 18:36 Oxycodone Hcl Immed Release 5 Mg Tablet PO 04/05/24 17:27 5 mg ONCE ONE Administration Medical Decision Making Medical Decision Making [facility] Narrative: 64-year-old female presents for evaluation of left knee pain after a fall. Plan for x-rays. She denies hitting head or losing consciousness, she has not anticoagulated, she has no signs of trauma to the head or neck. CT brain and C-spine deferred at this time. Differential Diagnosis Differential Diagnoses: The differential diagnosis associated with the presentation includes Left knee sprain Left knee contusion left knee fracture Left knee dislocation Hardware failure Independent Interpretation I performed an independent interpretation of an: Plain X-Ray (No obvious fracture of the left hip or knee.) Radiology Impression Discussion of test interpretation with radiology: I have reviewed the radiologist's reading. Radiologist Impression: XR/XR knee LT 2V IMPRESSION: No fracture or dislocation. Large joint effusion and anterior soft tissue swelling. XR/XR hip LT w PEL1V IMPRESSION: Arthritis. No fracture or dislocation. Prescription Management I considered prescription management with: Pain Medication Chronic Conditions Patient?s care impacted by: Diabetes, Hypertension and Cancer Discharge Plan Discharge Clinical Impression: Acute pain of left knee Patient Disposition: Home, Self-Care Instructions: Knee Pain (ED) Additional Instructions: Your x-ray did not show any evidence of fracture. You have a lot of fluid in the left knee joint This is likely related to your fall. Follow-up with your orthopedic doctor. Use Tylenol as needed for pain. You may use oxycodone for more severe breakthrough pain This may make you sleepy, did not drink alcohol or drive after taking Follow-up with your primary doctor Prescriptions: New oxycodone 5 mg tablet 5 mg PO Q4H PRN (Reason: severe pain (scale score 7-10)) Qty: 12 0RF Rx Instructions: Partial Fill upon patient request. No Action (DME) blood-glucose meter [FreeStyle Lite Meter] Kit See Rx Instructions .ROUTE .MEDSUPPLY Qty: 1 0RF Rx Instructions: As directed triamcinolone acetonide 0.1 % cream 1 appl topical DAILY 3RF Rx Instructions: apply to affected area Santyl 250 unit/gram ointment 1 appl topical DAILY Qty: 30 0RF Rx Instructions: apply to wound bed daily until office visit alcohol swabs [Alcohol Prep Pads] Pads, Medicated See Rx Instructions topical .COMPLEX Qty: 200 6RF Rx Instructions: topically tests 4 X/day; solifenacin [Vesicare] 5 mg tablet 5 mg PO DAILY Qty: 90 2RF aspirin [Adult Aspirin Regimen] 81 mg tablet,delayed release (DR/EC) 81 mg PO DAILY 90 Days Qty: 90 3RF clonidine HCl 0.1 mg tablet 0.1 mg PO BEDTIME Qty: 90 3RF cholecalciferol (vitamin D3) 50 mcg (2,000 unit) capsule 50 mcg PO DAILY Qty: 90 2RF insulin aspart U-100 [Novolog FlexPen U-100 Insulin] 100 unit/mL (3 mL) insulin pen See Rx Instructions subcut .COMPLEX Qty: 15 4RF Rx Instructions: 10 units with breakfast and lunch and 14 units with subcutaneously; letrozole 2.5 mg Tablet 2.5 mg PO DAILY Qty: 90 12RF albuterol sulfate 90 mcg/actuation HFA aerosol inhaler 1 puff inhalation QID Qty: 8.5 5RF (DME) lancets [FreeStyle Lancets] 28 gauge misc See Rx Instructions .ROUTE .COMPLEX Qty: 100 3RF Dose Instruction: USE DIRECTED THREE TIMES A DAY (BULK) Rx Instructions: USE DIRECTED THREE TIMES A DAY (BULK) (DME) FreeStyle Lite Strips Strip See Rx Instructions .ROUTE .MEDSUPPLY Qty: 100 3RF Rx Instructions: check BS 3X/DAY ropinirole 1 mg tablet 1 mg PO BID Qty: 180 2RF clotrimazole 1 % cream 1 appl topical BID 28 Days Qty: 45 1RF albuterol sulfate 2.5 mg /3 mL (0.083 %) solution for nebulization 2.5 mg inhalation Q4-6H PRN (Reason: for wheezing) Qty: 180 3RF cyanocobalamin (vitamin B-12) 1,000 mcg Tablet 1,000 mcg PO DAILY ascorbic acid (vitamin C) [Vitamin C] 500 mg Tablet 500 mg PO DAILY ferrous sulfate [Iron (ferrous sulfate)] 325 mg (65 mg iron) Tablet 325 mg PO FR@0900 zinc gluconate 50 mg Tablet 50 mg PO DAILY lorazepam 0.5 mg Tablet 0.5 mg PO BEDTIME PRN (Reason: Insomnia) Qty: 30 3RF ondansetron 8 mg Tablet,Disintegrating 8 mg PO Q8H Qty: 50 6RF quetiapine 50 mg tablet 50 mg PO BEDTIME fluticasone propionate [Flonase Allergy Relief] 50 mcg/actuation [place],Suspension 1 spray INTRANASAL BID Qty: 35 3RF Rx Instructions: administer into each nostril docusate sodium [Colace] 100 mg Capsule 100 mg PO BID Qty: 60 4RF duloxetine 20 mg Capsule,Delayed Release(Dr/Ec) 20 mg PO BID Qty: 60 0RF acetaminophen 325 mg capsule 325 mg PO QID PRN (Reason: Pain) metoprolol succinate [Toprol XL] 25 mg tablet extended release 24 hr 25 mg PO DAILY 90 Days Qty: 90 1RF Anoro Ellipta 62.5-25 mcg/actuation blister with device 1 inh inhalation DAILY Qty: 60 12RF paroxetine HCl 20 mg tablet 20 mg PO DAILY 90 Days Qty: 90 1RF (DME) matectomy BRA See Rx Instructions .Route .MEDSUPPLY Qty: 2 0RF Rx Instructions: As directed (DME) compress.stocking,knee,reg,lrg Misc See Rx Instructions .Route Qty: 12 0RF Rx Instructions: As directed 20-30 mm HG (DME) PULL UPS medium See Rx Instructions .Route .MEDSUPPLY Qty: 100 12RF Rx Instructions: As directed (DME) Incontinence BED PADS WASHABLE See Rx Instructions .Route .MEDSUPPLY Qty: 2 12RF Rx Instructions: As directed (DME) baby wipes See Rx Instructions .Route .MEDSUPPLY Qty: 1 12RF Rx Instructions: As directed oxycodone-acetaminophen [Percocet] 5-325 mg tablet 1 tab PO Q8H PRN (Reason: Breakthrough Pain, Moderate) Qty: 50 0RF Rx Instructions: Partial Fill upon patient request. (DME) pen needle, diabetic [BD Ultra-Fine Micro Pen Needle] 32 gauge x 1/4 needle See Rx Instructions miscellaneous .MEDSUPPLY Qty: 100 2RF Rx Instructions: as directed with insulin insulin glargine [Lantus Solostar U-100 Insulin] 100 unit/mL (3 mL) insulin pen 30 unit subcut DAILY Qty: 15 3RF dexamethasone 1 mg tablet 1 mg PO ONCE Qty: 1 0RF verapamil 120 mg tablet 120 mg PO BID Qty: 60 5RF Print Language: Georgian
[2024-04-05] MEDS: oxyCODONE HCl Immed Release 5 MG TABLET PO (18:36)
[2024-04-05 20:34] VITALS: BP 156/75; PULSE 90; RESP 18; TEMP 36.7; O2SAT 97
[2024-04-05 20:47] VITALS: BP 188/84; PULSE 93; RESP 20; TEMP 36.7; O2SAT 97
[2024-04-05] MEDS: Acetaminophen 325 MG TABLET 975 MG PO (22:00)
== END 2024-04-05 23:33 | disposition home or self-care (01) ==
PROVIDERS: Emergency Provider Internal Medicine; PCP Internal Medicine
DX: M25.562 Pain in left knee (principal); E11.9 Type 2 diabetes mellitus without complications; I10 Essential (primary) hypertension; J44.9 Chronic obstructive pulmonary disease, unspecified; Z91.81 History of falling
CPT/HCPCS: 73502; 73560; 99283

== ENCOUNTER → 2024-06-20 07:27 | Outpatient (REF) | payer OTHER, SELFPAY ==
--- NOTE | ~2024-06-20 | NM_ITS ---
Lexiscan Myocardial perfusion study Indication: Shortness of breath Technique: The patient was brought in for a Lexiscan perfusion study on 06/20/2024 and was injected 0.4 mg of Lexiscan intravenously. Within a minute of this injection 35 mCi of sestamibi was given intravenously. Images were obtained using the SPECT gamma camera interlaced with the gating device. Images were obtained in supine position. Resting perfusion study was performed on 06/21/2024. Patient was administered 35 mCi of sestamibi intravenously at rest. Images were then obtained in supine position. Images were processed with the software and compared side to side in short axis, horizontal long axis and vertical long axis views. Total DLP 132mGy-cm. Findings: Raw acquisition reviewed. Arms by the patient's side. The stress perfusion study showed diminished tracer uptake along the inferior wall. There is improvement with CT attenuation correction suggestive of diaphragmatic attenuation artifact. The gated study shows normal LV systolic function with calculated LVEF of 43%-but visually normal. LV cavity is normal in size. The gated study shows normal wall thickening and contraction of segments. Resting study shows diminished tracer uptake along the inferior wall. There is improvement with CT attenuation correction suggestive of diaphragmatic attenuation artifact. Gating at rest reveals normal wall motion with ejection fraction at 48%-visually appears normal. The findings are consistent with fixed inferior perfusion defect likely from diaphragmatic attenuation artifact. NM/NM gracy perf SPECT rest & str Impression: 1. Myocardial perfusion imaging study shows likely normal myocardial perfusion. 2. Gated LVEF is 43% during stress and 48% during rest but visually appears normal. 3. Transient ischemic dilatation not present. EKG component of the test reported separately.
--- NOTE | 2024-06-20 07:33 | CA_ITS ---
Acquisition Time: 2024-06-20 07:52:20 Total Exercise Time: 00:02:00 Test Indications: Dyspnea Medications: SEE H Protocol: LEXISCAN Max HR: 100 BPM 63% of Pred: 157 BPM Max BP: 144/078 mmHG Max Work Load: 1.0 METS Pharmacological stress test with Lexiscan injection, while sitting and moving left arm, without anginal symptoms, without arrythmia, with normotensive response to injection, with nondiagnostic EKG for ischemia. Nuclear images pending. Test reviewed with Dr Evangelista Referred By: Angel Serrano Overread By: FLETCHER COY
--- NOTE | 2024-06-20 07:33 | HM_ITS ---
Conclusion: 1. Patient was monitored for total period of 2 days and 23 hours 2. Baseline was normal sinus rhythm with average heart of 88 beats per minute 3. No significant pauses noted 4. Rare PACs noted 5. Patient marked the counter 1 time with symptoms of heart beating fast correlating with normal sinus rhythm MTDD
--- NOTE | 2024-06-20 10:55 | CA_ITS ---
Transthoracic Echocardiogram Patient (Last, First, Middle): Sarah Ervin A Gender: Female Date of : 1960 Age: 64 Procedure Date: 06/20/2024 Procedure Type: Transthoracic Echocardiogram Location: OP Height: 162.56 cm Weight: 99.79 kg BSA: 2.04 m2 Heart Rate: bpm BP: 122 / 74 mmHg Sewing Department Supervisor: OLINDA Referring MD: Angel Serrano MD Curtain Stretcher Assembler: Angel Serrano MD Symptoms: R00.2 - Palpitations Study Quality: Technically Difficult ECG Rhythm: Sinus Conclusions: - 1. Technically limited study 2. Normal LV ejection fraction 55-60% with grade 1 diastolic dysfunction 3. Cardiac valvular Doppler was within normal limits 4. Upper limits of normal ascending aortic size Findings Left Ventricle Normal left ventricular size, thickness, and systolic function. The visually estimated ejection fraction is between 55-60%. Spectral Doppler is indicative of an impaired relaxation filling pattern. E/E prime ratio is <8, consistent with normal filling pressures. Evidence suggests grade I (mild) diastolic dysfunction. Right Ventricle Normal right ventricular cavity size and systolic function. Atria The left atrium is normal in size. Interatrial shunt cannot be excluded. The right atrium is normal in size. Aortic Valve The aortic valve structure and function is likely normal. There is no aortic valve stenosis. There is no aortic valve regurgitation. Mitral Valve Likely normal mitral valve structure and function. There is no mitral valve regurgitation. There is no mitral valve stenosis. Pulmonic Valve The pulmonic valve was not well visualized. Tricuspid Valve The tricuspid valve was not well visualized. Tricuspid regurgitation envelope is inadequate for calculation of right ventricular systolic pressure. Great Vessels The pulmonary artery was not well visualized. Venous The inferior vena cava is normal in size and collapses greater than 50% with inspiration. Pericardium/Pleural There is no evidence of pericardial effusion. Prior Study Comparison No significant change compared to prior study dated: 06/27/2023. Measurements 2D Linear Measurements IVSd: 1.07 0.6-0.9/0.6-1.0 cm LVIDd: 4.47 3.9-5.3/4.2-5.9 cm LVIDd Index: 2.19 2.4-3.2/2.2-3.1 cm/m2 LVIDs: 2.98 2.0-3.6 cm LVPWd: 0.92 0.7-1.1 cm LA Diam: 3.30 2.7-3.8/3.0-4.0 cm LAIDs Index: 1.62 1.5-2.3 cm/m2 LV Mass: 187.22 67-162/88-224 g LV Mass Index: 91.78 43-95/49-115 g/m2 LVOT Diam: 2.00 3.0+(-)1.3 cm 2D Systolic Function EF 4C: 55.40 >55% EF 2C: 57.30 >55% EF BiP: 58.00 >55% Mitral Valve MV Pk E: 0.61 MV PK A: 0.84 MV Decel Time: 222.00 E/A: 0.70 E'Lateral: 6.53 E'Medial: 6.96 E/E' Med: 8.80 E/E' Lat: 9.40 PHT: 65.00 MVA PHT: 3.38 Decel Hernando: 2.76 Aortic Valve AoV Pk John: 1.51 AoV Mn John: 1.04 AoV VTI: 0.33 AoV Pk Grad: 9.00 Aov Mn Grad: 5.00 SANTOS Cont.VTI: 2.53 LVOT LVOT Pk John: 1.27 LVOT Mn John: 0.81 LVOT VTI: 0.27 LVOT Pk Grad: 6.00 LVOT Mn Grad: 3.00 LVOT Diam: 2.00 LVOT Area: 3.14 Diastolic Function MV Pk E: 0.61 MV Pk A: 0.84 E/A: 0.70 E'Medial: 6.96 E/E' Med: 8.80 E' Laterial: 6.53 E/E' Lat: 9.40 Right Ventricle TAPSE (mm): 31.30 TVS' Jhon: 14.90 Tricuspid Valve RA Press: 3.00 Great Vessels Aorta Sinus of Valsalva: 3.39 2.0-3.5 cm Ao Asc: 3.50 2.1-3.4 cm Updated in Other Vendor System with Status of Final Angel Serrano MD electronically signed on 06/20/2024 1:00:02 PM with status of Final
== END ==
LOC: HO.CARD 07:27
PROVIDERS: PCP Internal Medicine; Visit Provider Internal Medicine Cardiovascular Disease
DX: R00.2 Palpitations (principal); R06.02 Shortness of breath
CPT/HCPCS: 78452; 93017; 93242; 93306; A9500; J0280; J2785

== ENCOUNTER → 2024-06-20 10:55 | Outpatient (BNV) | payer OTHER, SELFPAY | PROVIDERS: PCP Internal Medicine; Visit Provider Internal Medicine Cardiovascular Disease | DX: I49.3 Ventricular premature depolarization (principal) | CPT/HCPCS: 78452; 93016; 93018; 93244; 93320; 93325; 93350 ==

== ENCOUNTER 2024-08-09 13:17 | Outpatient (AMB) | payer OTHER, SELFPAY ==
[2024-08-09 13:19] VITALS: BP 130/82; PULSE 98; O2SAT 97; BMI 37.5
--- NOTE | 2024-08-09 13:19 | A.OFFPC_ITS ---
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: No Accompanied by: Self / Same As Patient Allergies diclofenac [From Voltaren] Allergy (Severe, Verified 08/09/24 13:20) enlarged liver lisinopril [From Zestril] Allergy (Severe, Verified 08/09/24 13:20) Angioedema Penicillins [PENICILLINS] Allergy (Intermediate, Verified 08/09/24 13:20) Facial Swelling oxybutynin [Oxybutynin] Adverse Reaction (Severe, Verified 08/09/24 13:20) body twitching metformin Adverse Reaction (Intermediate, Verified 08/09/24 13:20) Diarrhea gabapentin Adverse Reaction (Verified 08/09/24 13:20) Hypertension duloxetine Adverse Reaction (Intermediate, Uncoded 08/09/24 13:20) tachycardia Medication List - Last Reconciled 08/09/24 by Concepción Reyes, acetaminophen 325 mg PO QID PRN albuterol sulfate 90 mcg/actuation 1 puff inhalation QID albuterol sulfate 2.5 mg (3 mL) inhalation Q4-6H PRN alcohol swabs (Alcohol Prep Pads) topically tests 4 X/day; amlodipine 5 mg PO BID ascorbic acid (vitamin C) (Vitamin C) 500 mg PO DAILY aspirin (Adult Aspirin Regimen) 81 mg PO DAILY 90 days [baby wipes As directed] blood sugar diagnostic (FreeStyle Lite Strips) check BS 3X/DAY blood-glucose meter (FreeStyle Lite Meter kit) As directed cholecalciferol (vitamin D3) 50 mcg PO DAILY clonidine HCl 0.1 mg PO BEDTIME clotrimazole 1% 1 appl topical BID 4 weeks collagenase clostridium histo. (Santyl) 1 appl topical DAILY compress.stocking,knee,reg,lrg As directed 20-30 mm HG cyanocobalamin (vitamin B-12) 1,000 mcg PO DAILY ferrous sulfate (Iron (ferrous sulfate)) 325 mg PO FR@0900 fluticasone propionate 50 mcg/actuation (Flonase Allergy Relief) 1 spray intranasal BID [Incontinence BED PADS WASHABLE As directed] insulin glargine (Lantus Solostar U-100 Insulin) 30 units (0.3 mL) subcut DAILY lancets (FreeStyle Lancets) USE DIRECTED THREE TIMES A DAY (BULK) letrozole 2.5 mg PO DAILY [matectomy BRA As directed] Novolog FlexPen U-100 Insulin (insulin aspart U-100) 10 units with breakfast and lunch and 14 units with subcutaneously; NS oxycodone-acetaminophen 5-325 mg (Percocet) 1 tab PO Q8H PRN paroxetine HCl 20 mg PO DAILY 90 days pen needle, diabetic (BD Ultra-Fine Micro Pen Needle) as directed with insulin [PULL UPS medium As directed] ropinirole 1 mg PO BID sennosides (Senokot) 8.6 mg PO BID solifenacin (Vesicare) 5 mg PO DAILY triamcinolone acetonide 0.1% 1 appl topical DAILY umeclidinium-vilanterol 62.5-25 mcg/actuation (Anoro Ellipta) 1 inh inhalation DAILY zinc gluconate 50 mg PO DAILY Tobacco use date assessed: 08/09/24 Dental Screening Dental Screen Date: 08/09/24 Did you have a dental visit in the last 12 months?: No Did you have a dental problem in the last 6 months where you did not have access to dental care?: No Was dental information given to patient?: No HPI PE HPI Details 64-year-old obese female smoker with lef t breast cancer diabetes mellitus hypertension hypercholesterolemia and peripheral vascular disease last seen in 01/10/2024. Patient comes in for physical exam. Mammogram is up-to-date Cologuard negative in 12/10/2022. Patient follows up with Hematology-Oncology in June continue to be monitored. Holter done in June Patient was monitored for total period of 2 days and 23 hours 2. Baseline was normal sinus rhythm with average heart of 88 beats per minute 3. No significant pauses noted 4. Rare PACs noted 5. Patient marked the counter 1 time symptoms of heart beating fast cor relating with normal sinus rhythm Myocardial perfusion scan done in June Myocardial perfusion imaging study shows likely normal myocardial perfusion. 2. Gated LVEF is 43% during stress and 48% during rest but visually appears normal. 3. Transient ischemic dilatation not pre sent. Echocardiogram done Technically limited study 2. Normal LV ejection fraction 55-60% wi th grade 1 diastolic dysfunction 3. Cardiac valvular Doppler was within n ormal limits 4. Upper limits of normal ascending aort ic size 06/09/2024. Patient has also seen Endocr inology 04/09/2024 advised to increase Lantus 30 units and by 4 units every 3-4 days. As for the adrenal adenoma advised to get the dexamethasone suppression test with plasma metanephrines. For the nodule in the thyroid benign continuing to monitor. 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 Cervical cancer screening Generalized anxiety disorder Type 2 diabetes mellitus with hyperglycemia History of anal fissures Peripheral vascular disease Urinary incontinence Hypertension COPD (chronic obstructive pulmonary disease) Hypercholesterolemia Surgical History H/O total mastectomy of left breast (12/21/22) History of biopsy History of endometrial ablation Hx of tubal ligation History of tonsillectomy History of appendectomy History of cholecystectomy History of bladder surgery History of left knee replacement Family History Mother History of breast cancer Father Prostate CA Brother No problems noted. Brother No problems noted. Daughter No problems noted. 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 () Do you presently have visiting nurse or other home services: No Alcohol intake: current Alcohol intake frequency: holidays/special occasions only Comment: Fell 08/2022, leg weakness 1 glass on holidays Patient Tobacco Use Status: Current everyday Tobacco user Tobacco use type: Cigarette Cigarettes Per Day: 2 Years Smoked: 40, 1 pack a day e-Cigarette/Vaping Use: Never Used Second Hand Smoke Exposure: No service: No Current occupational status: disabled Cognitive needs: No Hearing needs: No Vision needs: Yes Female Reproductive History Menstrual Age of Menarche: 10 Questionnaire PHQ-9 Over the last 2 weeks, how often have you been bothered by any of the following problems? 1. Little interest or pleasure in doing things: not at all 2. Feeling down, depressed, or hopeless: nearly every day 3. Trouble falling or staying asleep, or sleeping too much: nearly every day 4. Feeling tired or having little energy: nearly every day 5. Poor appetite or overeating: more than half the days 6. Feeling bad about yourself - or that you are a failure or have let yourself or your family down: nearly every day 7. Trouble concentrating on things, such as reading the newspaper or watching television: nearly every day 8. Moving or speaking so slowly that other people could have noticed. Or the opposite - being so fidgety or restless that you have been moving around a lot more than usual: not at all 9. Thoughts that you would be better off or of hurting yourself in some way: not at all Total score: 17 Source: Developed by Drs. Ravindra Calderon, Jena Sweet, García Barnard and colleagues, with an educational hayde from [employer]. Thrive Questionnaire Date Thrive assessed: 08/09/24 I am a: Patient What is your living situation today?: I have a steady place to live Within the past 12 months, did the food you bought not last and you didn't have the money to get more?: Often true Within the past 12 months, did you worry whether your food would run out before you got money to buy more?: Often true Do you have trouble paying for medicines?: I choose not to answer this question Do you have trouble getting transportation to medical appointments?: Yes Do you have trouble paying your heating and electricity bill?: Yes Do you have trouble taking care of your child, family member or friend?: No Do you have trouble with day-to-day activities such as bathing, preparing meals, shopping, managing finances, etc.?: Yes Are you currently unemployed and looking for a job?: Yes Are you interested in more education?: No Please select the resources that you would like help with: Food, Transportation, Utilities and Care for elder or disabled Currently or been in a relationship where the following occur: No concerns reported THRIVE Score: 4 AUDIT C Alcohol Use Questionnaire (AUDIT-C) 1. How often do you have a drink containing alcohol?: Never Total Score: 0 PARMJIT-7 AMB Questionnaire PARMJIT-7 Date PARMJIT - 7 assessed: 08/09/24 Feeling nervous, anxious, or on edge: 3 = Nearly every day Not being able to stop or control worryin = Nearly every day Worrying too much about different things: 3 = Nearly every day Trouble relaxin = Nearly every day Being so restless that it is hard to sit still: 3 = Nearly every day Becoming easily annoyed or irritable: 2 = More than half the days Feeling afraid as if something awful might happen: 3 = Nearly every day Total PARMJIT-7 score (0-4 normal; 5-9 mild; 10-14 moderate; 15-21 severe): 20 Source: Developed by Drs. Ravindra Calderon, Jena Sweet, García Barnard and colleagues, with an educational hayde from [employer]. Review of Systems Const Denies poor appetite and Denies weakness Eyes Denies no additional complaints ENT Reports Normal hearing present, Denies dizziness, Denies nasal congestion, Denies tinnitus and Denies sore throat Card Denies chest pain, Denies syncope, Denies rapid heart rate and Denies dyspnea Resp Denies cough and Denies dyspnea GI Denies change in stool character, Reports constipation, Denies diarrhea, Denies nausea and Denies vomiting Denies urinary frequency, Denies difficulty voiding and Denies dysuria Neuro Reports Normal hearing present, Denies confusion, Denies dizziness, Denies syncope and Denies weakness Psych Denies confusion Physical exam (Primary Care) Vital Signs: Last Vital Signs Pulse 98 08/09/24 13:19 BP 130/82 08/09/24 13:19 Pulse Ox 97 08/09/24 13:19 Oxygen Delivery Method Room Air 08/09/24 13:19 BMI result Body Mass Index 37.5 Tobacco/Smoking Status: Tobacco use Status Tobacco use date assessed 08/09/24 08/09/24 13:24 Patient Tobacco Use Status Current everyday Tobacco 08/09/24 13:24 Tobacco use type Cigarette 08/09/24 13:24 e-Cigarette/Vaping Use Never Used 08/09/24 13:24 PHQ-9: PHQ-9 Score PHQ-9: Total score 17 08/09/24 13:24 Thrive Assessment: Date of Thrive Assessment Date Thrive assessed 08/09/24 08/09/24 13:24 Currently or been in a relationship where the following occur: No concerns reported Const General: No confusion Orientation/consciousness: No confusion HENMT Head: Yes normocephalic Ears: external ears normal and TM's normal bilaterally Face and sinus: Yes normal facial exam Mouth: moist mucous membranes Throat: Yes tonsils normal Eyes Conjunctivae: conjunctivae normal Pupils: Equal, round and reactive pupils present and Pupil accommodation reflex normal Direct Ophthalmoscopy: normal light reflex Neck Neck: No lymphadenopathy Thyroid: Thyroid normal Chest Chest palpation & inspection: normal inspection of the chest Resp Effort & Inspection: normal respiratory effort and no audible wheezes Auscultation: clear to auscultation bilaterally, no crackles, no wheezes and lung sounds not diminished Cardio Rate: regular rate Rhythm: regular rhythm Peripheral pulses: radial pulses present and dorsalis pedis present GI Palpation (GI): no masses Auscultation: normal bowel sounds and normoactive bowel sounds Rectal Exam - Female: deferred Skin General skin exam: no rashes or lesions noted Rashes: no rashes Neuro General: No confusion Cranial nerves: Yes Equal, round and reactive pupils present and Yes Normal hearing present Cognition (Neuro): normal cognition Gait exam (Neuro): Normal gait present Motor exam (neuro): 5/5 motor strength present throughout Deep tendon reflexes (DTR's): Right brachioradialis reflex intensity grade: 2+, Left brachioradialis reflex intensity grade: 2+, Right patellar reflex intensity grade: 2+ and Left patellar reflex intensity grade: 2+ Extrem General: No edema Results AMB Hemoglobin A1c AMB Hemoglobin A1c 8.4 % Last Edit by EDEN Teran on 08/09/24 13 :54 Assessment and Plan Assessment & Plan (1) Annual physical exam: Code(s): Z00.00 - Encounter for general adult medical examination without abnormal findings Plan: Patient is advised to eat healthy, keep well hydrated, keep active and have adequate sleep. (2) Obesity (BMI 30-39.9): Code(s): E66.9 - Obesity, unspecified Plan: Diet and exercise (3) Tobacco abuse: Code(s): Z72.0 - Tobacco use Plan: Patient is strongly advised to stop smoking (4) Invasive ductal carcinoma of left breast: Comment: 12/21/22, left simple mastectomy with targeted axillary dissection via needle localization of a lymph node was performed by Dr. Teran Code(s): C50.912 - Malignant neoplasm of unspecified site of left female breast Plan: Continue to follow-up with Hematology-Oncology and surgeon (5) COPD (chronic obstructive pulmonary disease): Code(s): J44.9 - Chronic obstructive pulmonary disease, unspecified Plan: Continue with the inhalers as needed (6) Hypercholesterolemia: Code(s): E78.00 - Pure hypercholesterolemia, unspecified Plan: Avoid fried foods, chicken skin, eggs, butter margarine, pastries and meat. Be it pork or beef they have a lot of cholesterol LDL goal of less than 100 and triglyceride of less than 150 (7) Hypertension: Code(s): I10 - Essential (primary) hypertension Plan: Continue with blood pressure medication. Decrease salt intake and exercise on amlodipine 5 mg twice a day clonidine 0.1 mg once a day metoprolol 25 mg once a day verapamil 120 mg twice a day (8) Peripheral vascular disease: Code(s): I73.9 - Peripheral vascular disease, unspecified Plan: When sitting down elevate the legs, exercise, and support stockings (9) Type 2 diabetes mellitus with hyperglycemia: Comment: Dr. Osman Code(s): E11.65 - Type 2 diabetes mellitus with hyperglycemia Plan: Decrease the amount of carbohydrate intake, pasta, bread, rice and potatoes are all sugar and that is aside from all the sweet stuff, remember that fruits are good but they are Sweet also. Hemoglobin A1c goal of less than 6.5. Patient is on NovoLog and Lantus (10) Colon cancer screening: Code(s): Z12.11 - Encounter for screening for malignant neoplasm of colon (11) Dysphagia: Code(s): R13.10 - Dysphagia, unspecified (12) Frequency of micturition: Code(s): R35.0 - Frequency of micturition (13) Left hip pain: Code(s): M25.552 - Pain in left hip (14) Left knee pain: Code(s): M25.562 - Pain in left knee (15) Localized swelling of both lower legs: Code(s): R22.43 - Localized swelling, mass and lump, lower limb, bilateral Orders: Orders AMB Hemoglobin A1c Today Z13.9 - Encounter for screening, unspecified [place] upper GI series Today R13.10 - Dysphagia, unspecified UA CC w/rflx Micro + Cult Today R30.0 - Dysuria, R35.0 - Frequency of micturition Complete Blood Count Auto Diff Today E11.65 - Type 2 diabetes mellitus with hyperglycemia Comprehensive Met. Panel Today E11.65 - Type 2 diabetes mellitus with hyperglycemia Thyroid Stimulating Hormone Today E11.65 - Type 2 diabetes mellitus with hyperglycemia Vitamin B12 and Folate Today E11.65 - Type 2 diabetes mellitus with hyperglycemia Vitamin D 25-OH Total Today E11.65 - Type 2 diabetes mellitus with hyperglycemia Creatinine Urine Today E11.65 - Type 2 diabetes mellitus with hyperglycemia FL barium swallow Today R13.10 - Dysphagia, unspecified Free T4 (Free Thyroxine) Today E11.65 - Type 2 diabetes mellitus with hyperglycemia Lipid Panel Today E11.65 - Type 2 diabetes mellitus with hyperglycemia, E78.00 - Pure hypercholesterolemia, unspecified Hemoglobin A1c Today E11.65 - Type 2 diabetes mellitus with hyperglycemia Microalbumin, Random (w Creat) Today E11.65 - Type 2 diabetes mellitus with hyperglycemia XR knee LT 2V Today M25.562 - Pain in left knee XR hip LT w PEL1V Today M25.552 - Pain in left hip US venous duplex LE BI Today R22.43 - Localized swelling, mass and lump, lower limb, bilateral Referrals Gastroenterology Referral Z12.11 - Encounter for screening for malignant neoplasm of colon Medications: Refilled oxycodone-acetaminophen 5-325 mg (Percocet) Partial Fill upon patient request. 1 tab PO Q8H PRN 50 tabs 0RF Breakthrough Pain, Moderate N39.41 - Urge incontinence Coding Level of Care Code Est Pt Prev Care 40-64y(15737) Diagnoses Annual physical exam Z00.00 Obesity (BMI 30-39.9) E66.9 Tobacco abuse Z72.0 Invasive ductal carcinoma of left breast C50.912 COPD (chronic obstructive pulmonary disease) J44.9 Hypercholesterolemia E78.00 Hypertension I10 Peripheral vascular disease I73.9 Type 2 diabetes mellitus with hyperglycemia E11.65 Colon cancer screening Z12.11 Dysphagia R13.10 Frequency of micturition R35.0 Left hip pain M25.552 Left knee pain M25.562 Localized swelling of both lower legs R22.43
== END 2024-08-09 14:39 | disposition home or self-care (01) ==
PROVIDERS: PCP Internal Medicine; Visit Provider Internal Medicine
DX: Z00.00 Encounter for general adult medical examination without abnormal findings (principal); C50.912 Malignant neoplasm of unspecified site of left female breast; J44.9 Chronic obstructive pulmonary disease, unspecified; I73.9 Peripheral vascular disease, unspecified; E11.65 Type 2 diabetes mellitus with hyperglycemia; E66.9 Obesity, unspecified; Z72.0 Tobacco use; E78.00 Pure hypercholesterolemia, unspecified; I10 Essential (primary) hypertension; Z12.11 Encounter for screening for malignant neoplasm of colon; R13.10 Dysphagia, unspecified; R35.0 Frequency of micturition

== ENCOUNTER → 2024-08-09 13:17 | Outpatient (BNVA) | payer OTHER, SELFPAY | PROVIDERS: PCP Internal Medicine; Visit Provider Internal Medicine | DX: Z00.01 Encounter for general adult medical examination with abnormal findings (principal); E11.65 Type 2 diabetes mellitus with hyperglycemia; E66.9 Obesity, unspecified; J44.9 Chronic obstructive pulmonary disease, unspecified; R13.10 Dysphagia, unspecified; M25.562 Pain in left knee; R22.43 Localized swelling, mass and lump, lower limb, bilateral; I10 Essential (primary) hypertension; I73.9 Peripheral vascular disease, unspecified; E78.00 Pure hypercholesterolemia, unspecified; Z72.0 Tobacco use; N39.41 Urge incontinence; Z79.51 Long term (current) use of inhaled steroids; Z79.4 Long term (current) use of insulin | CPT/HCPCS: 83036 ==

== ENCOUNTER 2024-08-09 15:12 | Outpatient (REF) | payer OTHER, SELFPAY ==
--- NOTE | ~2024-08-09 | XR_ITS ---
EXAMINATION: XR HIP, LEFT CLINICAL INFORMATION: M25.552 - Pain in left hip COMPARISON: 04/05/2024. TECHNIQUE: Three views of the left hip. FINDINGS: Study limited by patient habitus. Overlying pannus limits fine detail of the pelvis and left hip. No definite fracture, dislocation, or suspicious bone lesion. There are [id number] changes of osteoarthrosis in the left hip joint. Pelvis appears intact grossly. Spinal stimulator device present right lower quadrant soft tissues, with lead traversing the right S2 neural foramen. There are vascular calcifications present. Soft tissues otherwise normal. XR/XR hip LT w PEL1V IMPRESSION: 1. No acute findings left hip joint. 2. Mild to moderate osteoarthrosis. Electronically signed by: Inocencio Chambers MD 10/20/2024 09:05 PM [facility]IRE[facility] FENG
--- NOTE | ~2024-08-09 | US_ITS ---
EXAMINATION: US TRIPLEX LOWER EXTREMITY, BILATERAL CLINICAL INFORMATION: Localized swelling, mass and lump, lower limb, bilateral COMPARISON: None available. TECHNIQUE: Color-flow triplex imaging with spectral analysis and compression Doppler were performed on the bilateral lower extremities. FINDINGS: The left peroneal vein and the distal segment of the right peroneal vein are not well-visualized. Respiratory variation, normal compression and augmented flow are otherwise noted throughout the bilateral lower extremities. The visualized bilateral common femoral vein, superficial femoral vein, profunda femoral vein, popliteal vein and midcalf posterior tibial venous segments , right proximal and mid peroneal vein show no evidence of deep venous thrombosis bilaterally. US/US venous duplex LE BI IMPRESSION: The left peroneal vein and the distal segment of the right peroneal vein are not well-visualized.Otherwise no evidence of deep venous thrombosis involving the bilateral lower extremities. Electronically signed by: Ishan Simon MD 08/09/2024 04:53 PM EDT
--- NOTE | ~2024-08-09 | XR_ITS ---
EXAMINATION: XR KNEE, LEFT CLINICAL INFORMATION: M25.562 - Pain in left knee COMPARISON: 04/05/2024. TECHNIQUE: Two views of the left knee. FINDINGS: There is normal bony mineralization. There is no fracture, or suspicious bone lesion. There is been a total left knee arthroplasty, with tibial and femoral components intact, anatomically aligned, and well seated. No periprosthetic loosening or evidence of complication. There is been patellar resurfacing. There appears to be a moderate size joint effusion in the suprapatellar bursa, bilateral projection. There is no discrete soft tissue abnormality. XR/XR knee LT 2V IMPRESSION: 1. No acute bony findings left knee. 2. Left TKA without definite complication seen. 3. Moderate size joint effusion. Electronically signed by: Inocencio Chambers MD 10/20/2024 09:03 PM [facility] FENG
== END 2024-08-09 15:13 | disposition home or self-care (01) ==
LOC: HO.US 15:12
PROVIDERS: PCP Internal Medicine; Visit Provider Internal Medicine
DX: M25.562 Pain in left knee (principal); M25.552 Pain in left hip; R22.43 Localized swelling, mass and lump, lower limb, bilateral
CPT/HCPCS: 73502; 73560; 93970

== ENCOUNTER → 2024-08-09 15:15 | Outpatient (BNV) | payer OTHER, SELFPAY | PROVIDERS: PCP Internal Medicine; Visit Provider Radiology Diagnostic Radiology | DX: M25.552 Pain in left hip (principal); M25.562 Pain in left knee | CPT/HCPCS: 73502; 73560 ==

== ENCOUNTER → 2024-08-23 13:06 | Outpatient (BNVA) | payer OTHER, SELFPAY | PROVIDERS: PCP Internal Medicine; Visit Provider Internal Medicine Endocrinology, Diabetes & Metabolism | DX: E11.65 Type 2 diabetes mellitus with hyperglycemia (principal); E04.1 Nontoxic single thyroid nodule; D35.00 Benign neoplasm of unspecified adrenal gland | CPT/HCPCS: 82947; 99212 ==

== ENCOUNTER 2024-08-23 13:28 | Outpatient (AMB) | payer OTHER, SELFPAY ==
--- NOTE | 2024-08-23 13:10 | MHC.OFFVIS ---
Vital Signs 08/23/24 13:11 Height 5 ft 4 in BP 120/66 Blood Pressure Location Lt brachial Position Sitting Pulse 97 Pulse Source Pulse Oximeter Intake Visit Reasons: T2DM,, adrenal adenoma , MNG Intake Note: Patient presents today for D2GA follow up visit. Last Diabetic Eye exam: 05/2024 Last Podiatry Visit: Doesn't have one Random Glucose: 135 mg/dl HgA1c: 8.4% 08/09/24 Telephone Recorder Required: No Accompanied by: Daughter Allergies diclofenac [From Voltaren] Allergy (Severe, Verified 08/17/24 10:22) enlarged liver lisinopril [From Zestril] Allergy (Severe, Verified 08/17/24 10:22) Angioedema Penicillins [PENICILLINS] Allergy (Intermediate, Verified 08/17/24 10:22) Facial Swelling oxybutynin [Oxybutynin] Adverse Reaction (Severe, Verified 08/17/24 10:22) body twitching metformin Adverse Reaction (Intermediate, Verified 08/17/24 10:22) Diarrhea gabapentin Adverse Reaction (Verified 08/17/24 10:22) Hypertension duloxetine Adverse Reaction (Intermediate, Uncoded 08/17/24 10:22) tachycardia HPI Comments Details: 64 YO F who is seen in consultation for T2DM at the request of PCP. She had previously based seen by myself for thyroid nodules as well as an adrenal mass. Workup showed elevated urinary normetanephrines. She is also3 status post FNA of right lower and isthmus nodule with benign cytology Initially diagnosed with T2DM in 10 yrs ago . Was initially started on treatment with Glipizide . Current regimen metformin ER 500 mg QD Couldn't tolerate BID . Not taking metformin or Ozempic Lantus 24 units Novolog 10 units with breakfast and lunch and 15 units with dinner Vinnie download shows she is using the Vinnie 74% of the time. Average glucose is 197 with G mi of 8.0% per 36% range with 64% hyperglycemia and no hypoglycemia. Castano shows increased point care throughout the day . Family history of T2DM in Father . Has eyes checked yearly, saw optho 3 mos ago , denies retinopathy. has neuropathy,,not sees podiatry. Denies nephropathy, not on MO/ARB. Does not HLD, Not on statin. Denies CAD. Denies hypoglycemia Not Had diabetes education. 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 Cervical cancer screening Generalized anxiety disorder Type 2 diabetes mellitus with hyperglycemia History of anal fissures Peripheral vascular disease Urinary incontinence Hypertension COPD (chronic obstructive pulmonary disease) Hypercholesterolemia Surgical History H/O total mastectomy of left breast (12/21/22) History of biopsy History of endometrial ablation Hx of tubal ligation History of tonsillectomy History of appendectomy History of cholecystectomy History of bladder surgery History of left knee replacement Family History Mother History of breast cancer Father Prostate CA Brother No problems noted. Brother No problems noted. Daughter No problems noted. Social History Household Members: Family Household Members Other:: Daughter Housing: House Are you a primary care transitions nurse to a significant other at home: Yes () Do you presently have visiting nurse or other home services: No Alcohol intake: current Alcohol intake frequency: holidays/special occasions only Comment: Fell 08/2022, leg weakness 1 glass on holidays Patient Tobacco Use Status: Current everyday Tobacco user Tobacco use type: Cigarette Cigarettes Per Day: 2 Years Smoked: 40, 1 pack a day e-Cigarette/Vaping Use: Never Used Second Hand Smoke Exposure: No service: No Current occupational status: disabled Cognitive needs: No Hearing needs: No Vision needs: Yes Female Reproductive History Menstrual Age of Menarche: 10 Physical Exam Absence of Cushingoid features. Absence of acromegalic features. Neck exam reveals nl size thyroid about 15 gms. No thyroid nodules palpable. No carotid bruits present. Lungs CTA. Heart S1 S2, Reg R/R. No M/R/ G. Skin exam reveals absence of vitiligo or acanthosis nigricans. Abdominal exam reveals Soft NT/ND with NA BS. No organomegaly present. Neck Other: . Extrem Other: Visual exam of foot performed. No ulcerations or open lesions. There is a pleuritic papular rash on both lower extremities and left shoulder. No onchomycosis, no callouses.Pulses 2 + distally Sensation intact to monofilament exam. Vibratory sensation sensed is decreased with 128 Hz tuning fork Assessment & Plan Assessment & Plan (1) Type 2 diabetes mellitus with hyperglycemia: Comment: Dr. Osman Code(s): E11.65 - Type 2 diabetes mellitus with hyperglycemia Category: Medical Plan: This 64-year-old white female with history of type 2 diabetes being treated with sub maximal doses of metformin and and basal-bolus insulin with poor d glycemic control and no known microvascular or macrovascular complications Plan is to start Mounjaro 2.5 mg Q weekly. Went over side effects of Mounjaro including but not limited to nausea, vomiting rare risk of pancreatitis. Will have patient follow up withMyla Montoya NP in 4 wks . (2) Adrenal adenoma: Code(s): D35.00 - Benign neoplasm of unspecified adrenal gland Category: Medical Plan: History of bilateral adrenal adenomas. Previous workup showed elevated urinary normetanephrines otherwise normal workup. Lesion appeared to have low-density and concern for malignancy was low. Repeat imaging not show any change in the size or characteristics of mass. Patient Did not perform 1 mg dexamethasone suppression test but repeat plasma metanephrines were normal Plan is to have pt perform a 1 mg dexamethasone suppression test . Stressed importance of doing h test (3) Thyroid nodule: Code(s): E04.1 - Nontoxic single thyroid nodule Category: Medical Plan: She has a multinodular goiter Status post FNA of right thyroid nodule in the past with benign cytology. She is clinically and biochemically euthyroid. Plan is to have patient follow up with Dr. Goodrich for repeat thyroid ultrasound tract sizeof nodules Orders: Orders Cortisol Random Today D35.00 - Benign neoplasm of unspecified adrenal gland Medications: New tirzepatide (Mounjaro) for 4 weeks 2.5 mg (0.5 mL) subcut QWEEK 2 mL 5RF dexamethasone 1 mg PO ONCE 1 tab 0RF Coding Level of Care Code Est Pt Level 4 (41789) Complex EM visit Add On G2211 Diagnoses Type 2 diabetes mellitus with hyperglycemia E11.65 Adrenal adenoma D35.00 Thyroid nodule E04.1
[2024-08-23 13:11] VITALS: BP 120/66; PULSE 97
[2024-08-23 13:25] LABS: Glucose, Whole Blood 135 mg/dL (60-115)
== END 2024-08-23 13:46 | disposition home or self-care (01) ==
PROVIDERS: PCP Internal Medicine; Visit Provider Internal Medicine Endocrinology, Diabetes & Metabolism
DX: E11.65 Type 2 diabetes mellitus with hyperglycemia (principal); D35.00 Benign neoplasm of unspecified adrenal gland; E04.1 Nontoxic single thyroid nodule
CPT/HCPCS: 99214; G2211

== ENCOUNTER → 2024-08-29 09:45 | Outpatient (REF) | payer OTHER, SELFPAY ==
--- NOTE | ~2024-08-29 | NM_ITS ---
EXAMINATION: NM BONE SCAN OF THE WHOLE BODY CLINICAL INFORMATION: [Pain, breast cancer. COMPARISON: No previous bone scan is available for comparison. Radiographs of the chest, abdomen, pelvis, left hip and left knee dated 08/09/[address] are available for comparison. CT scans of the abdomen and pelvis dated 07/21/2023 TECHNIQUE: Multiple gamma scintillation camera images of the whole body were performed 2.75 hours following the intravenous administration of 35 mCi Tc-99m MDP. FINDINGS: In the head, no significant abnormalities are present. In the thoracic cage and upper extremities, there is moderately intense diffusely increased activity in the humeral heads bilaterally. In the spine, there is very mildly increased activity bilaterally in the posterior elements at L5, likely due to facet arthropathy. There is also mildly increased activity anteriorly in the upper thoracic spine probably at T1. In the pelvis, no significant abnormalities are present. In the lower extremities, there is a photopenic defect from a well-healed left total knee prosthesis. There is diffusely increased activity in the right knee, most prominently in the medial compartment. There is mildly increased activity in the proximal and mid feet bilaterally, more prominently on the left. No other definite bony abnormalities are noted. The urinary bladder and faint visualization of both kidneys are noted. The CT scan dated 07/21/2023 shows diffuse degenerative changes in the spine, including facet arthropathy at L5-S1 that corresponds to bone scan abnormalities in this region. NM/NM bone scan whole body IMPRESSION: 1. Mild bilaterally symmetrically increased activity in the humeral heads bilaterally is nonspecific and probably arthritic in etiology. Less likely would be bilateral aseptic necrosis. If clinically indicated this could be further characterized with MRI performed without and with intravenous contrast. 2. A few additional mild nonspecific abnormalities are noted as described above and these are all likely arthritic or traumatic in etiology. None of these abnormalities is strongly suspicious for metastatic disease. Electronically signed by: Michael Euceda MD 09/06/2024 04:53 PM EDT
== END ==
LOC: HO.NUCMED 09:45
PROVIDERS: PCP Internal Medicine; Visit Provider Internal Medicine Medical Oncology
DX: C50.919 Malignant neoplasm of unspecified site of unspecified female breast (principal); M25.552 Pain in left hip
CPT/HCPCS: 78306; A9503

== ENCOUNTER 2024-09-20 10:52 | Outpatient (AMB) | payer OTHER, SELFPAY ==
[2024-09-20 10:57] VITALS: BMI 37.4
--- NOTE | 2024-09-20 10:57 | MHC.OFFVIS ---
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 Patient reports that she has had pain in the left thigh while trying the stop her from falling down michele stairs. He pain is felt in the thigh, she explains that it is band around the leg. Her pain radiates down the leg to her toes, she also has numbness and tingling in the foot. She takes Oxycodone occasionally when she needs to go to appointments as she is not able to ambulate stairs well, Otherwise she is taking tylenol/ Ibuprofen. She presents today in a wheelchair but uses a walker at home, Hx of Left TKA [place] [address] 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 Patient reports that she has had pain in the left thigh while trying the stop her from falling down michele stairs. He pain is felt in the thigh, she explains that it is band around the leg. Her pain radiates down the leg to her toes, she also has numbness and tingling in the foot. She takes Oxycodone occasionally when she needs to go to appointments as she is not able to ambulate stairs well, Otherwise she is taking tylenol/ Ibuprofen. She presents today in a wheelchair but uses a walker at home, Hx of Left TKA in [address] 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 Cervical cancer screening Generalized anxiety disorder Type 2 diabetes mellitus with hyperglycemia History of anal fissures Peripheral vascular disease Urinary incontinence Hypertension COPD (chronic obstructive pulmonary disease) Hypercholesterolemia Surgical History H/O total mastectomy of left breast (12/21/22) History of biopsy History of endometrial ablation Hx of tubal ligation History of tonsillectomy History of appendectomy History of cholecystectomy History of bladder surgery History of left knee replacement Family History Mother History of breast cancer Father Prostate CA Brother No problems noted. Brother No problems noted. Daughter No problems noted. Social History Household Members: Family Household Members Other:: Daughter Housing: House Are you a primary career development facilitator to a significant other at home: Yes () Do you presently have visiting nurse or other home services: No Alcohol intake: current Alcohol intake frequency: holidays/special occasions only Comment: Fell 08/2022, leg weakness 1 glass on holidays Patient Tobacco Use Status: Current everyday Tobacco user Tobacco use type: Cigarette Cigarettes Per Day: 2 Years Smoked: 40, 1 pack a day e-Cigarette/Vaping Use: Never Used Second Hand Smoke Exposure: No service: No Current occupational status: disabled Cognitive needs: No Hearing needs: No Vision needs: Yes Female Reproductive History Menstrual Age of Menarche: 10 Physical Exam Vital Signs: BMI result Body Mass Index 37.4 Extrem Other: For gait mechanics with antalgia stooped gait. She has difficulty flexing left hip swing phase of gait. She has a positive impingement sign left with reproducible groin pain. Results Reviewed Results Reviewed: I personally reviewed relevant radiographs. Left total knee arthroplasty in expected post operative position with no hardware complications or evidence of loosening Left hip with milde -moderate OA BOnse scan unremarkable for abnormalities in the hip Assessment & Plan Assessment & Plan (1) Peripheral neuropathy: Code(s): G62.9 - Polyneuropathy, unspecified Category: Medical Plan: Diabetic and chemotherapy induced peripheral neuropathy. This may be contributing to her pain as it is difficult to clearly identify. (2) Left hip pain: Code(s): M25.552 - Pain in left hip Category: Medical Plan: Patient certainly does have some degree of hip and some degree of arthritis. I do not think she is currently a surgical candidate I physical therapy. I recommend she follow up approximately 2-4 weeks after her hip injection. Orders: Orders PT Evaluation and Treatment Today G62.9 - Polyneuropathy, unspecified, M25.552 - Pain in left hip Referrals Pain Management Referral M25.552 - Pain in left hip Coding Level of Care Code New Pt Level 4 (02357) Diagnoses Peripheral neuropathy G62.9 Left hip pain M25.552
== END 2024-09-20 11:41 | disposition home or self-care (01) ==
LOC: HO.HOS 10:53
PROVIDERS: PCP Internal Medicine; Visit Provider Orthopaedic Surgery
DX: G62.9 Polyneuropathy, unspecified (principal); M25.552 Pain in left hip
CPT/HCPCS: 99204

== ENCOUNTER → 2024-09-20 10:52 | Outpatient (BNVA) | payer OTHER, SELFPAY | PROVIDERS: PCP Internal Medicine; Visit Provider Orthopaedic Surgery | DX: E11.65 Type 2 diabetes mellitus with hyperglycemia (principal); I10 Essential (primary) hypertension; M25.552 Pain in left hip; G62.9 Polyneuropathy, unspecified | CPT/HCPCS: 82947; 99202; 99212 ==

== ENCOUNTER 2024-09-20 11:55 | Outpatient (AMB) | payer OTHER, SELFPAY ==
--- NOTE | 2024-09-20 11:16 | A.OFFVIS_ITS ---
Vital Signs 09/20/24 13:32 BP 164/86 H Intake Visit Reasons: T2DM/CONFIRMED Intake Note: Patient presents today for D2NE follow up visit. Last Diabetic Eye exam: 05/2024 Last Podiatry Visit: Doesn't have one Most Recent HgA1c: 8.4% 08/09/24 Random Glucose: 162 mg/dL, Today Mechanical Test Technician Required: No Accompanied by: Daughter Allergies diclofenac [From Voltaren] Allergy (Severe, Verified 09/20/24 11:02) enlarged liver lisinopril [From Zestril] Allergy (Severe, Verified 09/20/24 11:02) Angioedema Penicillins [PENICILLINS] Allergy (Intermediate, Verified 09/20/24 11:02) Facial Swelling oxybutynin [Oxybutynin] Adverse Reaction (Severe, Verified 09/20/24 11:02) body twitching metformin Adverse Reaction (Intermediate, Verified 09/20/24 11:02) Diarrhea gabapentin Adverse Reaction (Verified 09/20/24 11:02) Hypertension duloxetine Adverse Reaction (Intermediate, Uncoded 09/20/24 11:02) tachycardia HPI Comments Details: 64 YO F who is seen in f/u for T2DM. She is also seen by Dr. Pryor for thyroid nodules as well as an adrenal mass. Workup showed elevated urinary normetanephrines. She is status post FNA of right lower and isthmus nodule with benign cytology Initially diagnosed with T2DM in 10 yrs ago . Was initially started on treatment with Glipizide, Couldn't tolerate metformin Ozempic not effective Lantus 30 units am Novolog 10 units with breakfast and lunch 20 units with dinner occasionally takes an extra 20 Family history of T2DM in Father . Denies retinopathy: Has eyes checked yearly, last eye exam:over due but cancelled too many times during chemo treatment Has neuropathy, Symptoms:numbness, tingling some stocking like symptoms Does not see podiatry. Nails self care Has nephropathy, not on MO/ARB. 03/2024 Microalbumin:46 08/17/24: eGFR>60 Does not HLD, Not on statin. PVD Was told she had PVD in the past. No recent studies Denies CAD. Stress test has been ordered by cardiology. She will call cardiology for appt Denies hypoglycemia Not Had diabetes education. 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 Cervical cancer screening Generalized anxiety disorder Type 2 diabetes mellitus with hyperglycemia History of anal fissures Peripheral vascular disease Urinary incontinence Hypertension COPD (chronic obstructive pulmonary disease) Hypercholesterolemia Surgical History H/O total mastectomy of left breast (12/21/22) History of biopsy History of endometrial ablation Hx of tubal ligation History of tonsillectomy History of appendectomy History of cholecystectomy History of bladder surgery History of left knee replacement Family History Mother History of breast cancer Father Prostate CA Brother No problems noted. Brother No problems noted. Daughter No problems noted. Social History Household Members: Family Household Members Other:: Daughter Housing: House Are you a primary skin care specialist to a significant other at home: Yes () Do you presently have visiting nurse or other home services: No Alcohol intake: current Alcohol intake frequency: holidays/special occasions only Comment: Fell 08/2022, leg weakness 1 glass on holidays Patient Tobacco Use Status: Current everyday Tobacco user Tobacco use type: Cigarette Cigarettes Per Day: 2 Years Smoked: 40, 1 pack a day e-Cigarette/Vaping Use: Never Used Second Hand Smoke Exposure: No service: No Current occupational status: disabled Cognitive needs: No Hearing needs: No Vision needs: Yes Female Reproductive History Menstrual Age of Menarche: 10 Physical Exam Vital Signs: Last Vital Signs BP 164/86 H 09/20/24 13:32 Const General: cooperative Nutritional Appearance: overweight Orientation/consciousness: oriented to person, oriented to place and oriented to time Neck Neck: Yes normal visual inspection and Yes trachea midline Thyroid: Thyroid normal Chest Other: left mastectomy Cardio Jugular venous distension: no JVD Rate: regular rate Rhythm: regular rhythm Heart sounds: S1 normal heart sound present and S2 normal heart sound present Neuro General: oriented to person, oriented to place and oriented to time Extrem Other: Nails elongated and with fungal infection, no ulcers, interdigit maceration or fissuring diminished vibratory and monfilament sensation diminshed pulses Results Reviewed Results Reviewed: Laboratory Last Values Glucose (Clinic) 162 mg/dL (60-115) H 09/20/24 12:39 Assessment & Plan Assessment & Plan (1) Type 2 diabetes mellitus with hyperglycemia: Comment: Dr. Osman Code(s): E11.65 - Type 2 diabetes mellitus with hyperglycemia Category: Medical Plan: 64 year old type 2 diabetic with PVD, neuropathy, nephropathy with normal eGFR and PVD with improving A1C to 8.4% down from 9%. Sensor download shows average of 188 down from 196 two weeks ago. She has not been eating a full meal during the day and therefore has only been taking mealtime hs. She was asked to eat a small meal (brunch) and take 10 units of insulin. If not effective can increase short acting insulin by 4 units. Duplex ordered: no recent studies had been done Referral to opth/pod ordered She will have cortisol done after pm dexamethasone and f/u with . RTC 4 weeks for diabetes call if numbers not improving or for any lows (2) Hypertension: Code(s): I10 - Essential (primary) hypertension Category: Medical Plan: has been off amlodipine for 3 days as this was not included in [email or web address]. A local prescription was sent and she will contact [email or web address] Orders: Orders US arterial duplex LE BI Today I73.9 - Peripheral vascular disease, unspecified Referrals Ophthalmology Referral E11.65 - Type 2 diabetes mellitus with hyperglycemia Podiatry Referral G62.9 - Polyneuropathy, unspecified Medications: Changed From amlodipine 5 mg PO BID To amlodipine 5 mg PO BID 30 days 60 tabs 1RF Patient Instructions: Rule of 15 and foot care reviewed Coding Level of Care Code Est Pt Level 4 (75177) Diagnoses Type 2 diabetes mellitus with hyperglycemia E11.65 Hypertension I10 Time Spent (min) 45 Comment face to face chart review lab review documenation
[2024-09-20 12:43] LABS: Glucose, Whole Blood 162 mg/dL (60-115)
[2024-09-20 13:32] VITALS: BP 164/86
== END 2024-09-20 13:10 | disposition home or self-care (01) ==
LOC: HO.ENCR 11:56
PROVIDERS: PCP Internal Medicine; Visit Provider Nurse Practitioner Adult Health
DX: E11.65 Type 2 diabetes mellitus with hyperglycemia (principal); I10 Essential (primary) hypertension
CPT/HCPCS: 99214

== ENCOUNTER 2024-10-10 08:58 | Outpatient (REF) | payer OTHER, SELFPAY ==
--- NOTE | ~2024-10-10 | FL_ITS ---
EXAMINATION: XR FLUOROSCOPY UPPER GI WITH AIR CLINICAL INFORMATION: Dysphagia COMPARISON: None TECHNIQUE: Fluoroscopic air contrast upper GI examination was performed utilizing standard techniques with thin and thick barium and effervescent granules. Numerous spot images were obtained. FINDINGS: Lateral cine images of the oropharynx and hypopharynx demonstrate normal swallow mechanism with normal epiglottic inversion and soft palate elevation. Trace laryngeal penetration is seen with thick barium. No tracheal penetration, glottic or subglottic aspiration identified. No nasopharyngeal reflux present. Hypopharyngeal structures appear normal without evidence of mass. There is a tiny Zenker's diverticulum. There was no significant cricopharyngeal achalasia. Dual and single contrast images of the esophagus demonstrate normal caliber, contour, and mucosal pattern. No evidence of stricture, mass, or ulcerations identified. Esophageal peristalsis was mildly disorganized. Right central venous catheter overlies the cavoatrial junction. No evidence of hiatus hernia identified. No significant gastroesophageal reflux was seen during the course of the examination and on reflux views. Dual contrast and single contrast images of the stomach demonstrated normal contour. There are multiple small foci of contrast pooling in the body the stomach that likely represents small mucosal ulcerations. No masses are seen. Contrast freely passed into the gastric antrum and duodenal bulb without delay. Single and air-contrast images of the duodenal bulb demonstrate no abnormality. The duodenal sweep has a normal appearance, course, and mucosal fold appearance. The imaged proximal jejunum has a normal fold pattern and caliber. FLUOROSCOPY TIME: 2 minutes 38 seconds Number of Spot Images: 5 Number of Cine: 10 DOSE AREA PRODUCT: 1400 uGy-m2 (microgray-meter squared) FL/FL upper GI w air w Ba Swallow IMPRESSION: 1. Trace laryngeal penetration with thick barium. 2. Mildly disorganized esophageal peristalsis. 3. Small foci of contrast pooling in the body the stomach that likely represent small mucosal ulcerations. Recommend correlation with EGD. 4. Tiny Zenker's diverticulum. This procedure was performed by Randell Mora PA-C, and supervised by Dr. Chambers Electronically signed by: Inocencio Chambers MD 10/10/2024 03:29 PM [facility] Workstation: [id number]
== END 2024-10-10 08:59 | disposition home or self-care (01) ==
LOC: HO.XRAY 08:58
PROVIDERS: PCP Internal Medicine; Visit Provider Internal Medicine
DX: R13.10 Dysphagia, unspecified (principal)
CPT/HCPCS: 74246

== ENCOUNTER → 2024-10-10 09:00 | Outpatient (BNV) | payer OTHER, SELFPAY | PROVIDERS: PCP Internal Medicine; Visit Provider Physician Assistant Surgical | DX: R13.10 Dysphagia, unspecified (principal) | CPT/HCPCS: 74246 ==

== ENCOUNTER 2024-10-11 12:59 | Outpatient (AMB) | payer OTHER, SELFPAY ==
--- NOTE | 2024-10-11 13:09 | MHC.OFFVIS ---
Vital Signs 10/11/24 13:17 Height 5 ft 4 in Weight 225 lb BMI 38.6 BP 142/76 H Blood Pressure Location Lt brachial Position Sitting Respiration 18 Pulse 110 H Pulse Source Pulse Oximeter Pulse Oximetry (%) 96 Oxygen Delivery Method Room Air Intake Visit Reasons: Pain in left hip/left hip inj Intake Note: Patient comes in for initial visit was referred by [facility]. Shes accompanied by daughter Henna. Reports pain 07/31. Allergies diclofenac [From Voltaren] Allergy (Severe, Verified 10/11/24 13:19) enlarged liver lisinopril [From Zestril] Allergy (Severe, Verified 10/11/24 13:19) Angioedema Penicillins [PENICILLINS] Allergy (Intermediate, Verified 10/11/24 13:19) Facial Swelling oxybutynin [Oxybutynin] Adverse Reaction (Severe, Verified 10/11/24 13:19) body twitching metformin Adverse Reaction (Intermediate, Verified 10/11/24 13:19) Diarrhea gabapentin Adverse Reaction (Verified 10/11/24 13:19) Hypertension duloxetine Adverse Reaction (Intermediate, Uncoded 09/20/24 11:02) tachycardia HPI Comments Details: Sarah is very pleasant 64 years old female who presents in my office with complains on severe pain in the left upper and mid thigh. She reported that this pain started in the spring when she tried to help her from falling and they both fell on the stairs. She felt immediate pain in the groin. She reported that this pain started to drift down and now she feels the pain in the mid thigh. She also reports pain in terms of freezing sensation in bilateral feet and bilateral hands secondary to neuropathy which is a result of cancer chemotherapy treatment. She reports that she can not sleep normally because of her pain can not do activities of daily living she can not take care of herself and she can not function normally. On permanent disability. She reports that weather changes in movements aggravate her pain she reports that she applies topical medications on her entire left lower extremity and receive some pain relief from that. In terms of tissue damage he describes her pain as stabbing, sharp, hurting, freezing, aching, heavy sensation. She was under care of Dr. Couch who did not offer her any total hip replacement. She had x-ray done at [facility] results of which dictated as below. She tried physical therapy with physical therapist coming to her house and she reports no help from physical therapy she reports it gave made it worse. She receives oxycodone from Dr. Khan who prescribe oxycodone for her after chemotherapy. She tried ibuprofen and it was not effective for her pain. She never tried any injections. Her past medical history significant for hypertension history of left breast cancer history of chest pain it is not very clear whether it is angina or phantom breast pain syndrome. She reports history of asthma history of kidney stones, she is diabetic with hemoglobin A1c 7.4. She reports widespread arthritis. Past surgical history significant for total knee replacement in 2008 mastectomy left in 2022 in 1988 surgery in 1983 and other surgeries which she does not remember. She admits smoking cigarettes half a pack a day she denies drinking alcohol she drinks coffee all day long and she denies recreational drugs. 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 Cervical cancer screening Generalized anxiety disorder Type 2 diabetes mellitus with hyperglycemia History of anal fissures Peripheral vascular disease Urinary incontinence Hypertension COPD (chronic obstructive pulmonary disease) Hypercholesterolemia Surgical History H/O total mastectomy of left breast (12/21/22) History of biopsy History of endometrial ablation Hx of tubal ligation History of tonsillectomy History of appendectomy History of cholecystectomy History of bladder surgery History of left knee replacement Family History Mother History of breast cancer Father Prostate CA Brother No problems noted. Brother No problems noted. Daughter No problems noted. 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 () Do you presently have visiting nurse or other home services: No Alcohol intake: current Alcohol intake frequency: holidays/special occasions only Comment: Fell 08/2022, leg weakness 1 glass on holidays Patient Tobacco Use Status: Current everyday Tobacco user Tobacco use type: Cigarette Cigarettes Per Day: 2 Years Smoked: 40, 1 pack a day e-Cigarette/Vaping Use: Never Used Second Hand Smoke Exposure: No service: No Current occupational status: disabled Cognitive needs: No Hearing needs: No Vision needs: Yes Female Reproductive History Menstrual Age of Menarche: 10 Review of Systems Const All systems reviewed & are unremarkable except as noted in HPI and below ENT Reports Normal hearing present Neuro Reports Normal hearing present, Denies Abnormal speech present, Denies confusion and Denies Sensory deficit (Neuro) Psych Denies confusion Physical Exam Vital Signs: Last Vital Signs Pulse 110 H 10/11/24 13:17 Resp 18 10/11/24 13:17 BP 142/76 H 10/11/24 13:17 Pulse Ox 96 10/11/24 13:17 Oxygen Delivery Method Room Air 10/11/24 13:17 BMI result Body Mass Index 38.6 Const General: no acute distress; No confusion Nutritional Appearance: obese morbidly obese Orientation/consciousness: patient oriented x3 and No confusion Eyes General: appearance normal, both eyes and all related structures Pupils: Equal, round and reactive pupils present EOM: EOMs intact bilaterally Neck Neck: Yes full ROM Chest Chest palpation & inspection: normal inspection of the chest Resp Effort & Inspection: normal respiratory effort, able to speak in complete sentences, normal respiratory pattern, no audible wheezes and no cough Cardio Jugular venous distension: no JVD GI Inspection: Yes normal to inspection Neuro General: patient oriented x3, gait normal and No confusion Cranial nerves: Yes CN's II-XII intact bilaterally, Yes Equal, round and reactive pupils present, Yes Normal hearing present and Yes Ability to bilaterally elevate shoulders present Speech: No Abnormal speech present Gait exam (Neuro): Normal gait present Motor exam (neuro): 5/5 motor strength present throughout Sensory Exam: No Sensory deficit (Neuro) Extrem Other: Lateral rotation of the left thigh causes severe discomfort in the groin and below the groin. General: Yes pedal edema Psych Speech and movement: Normal speech and movement present Affect: normal affect Attitude: cooperative Thought process: Normal thought process present Thought content: Normal thought content present Insight: Good insight present (Psych) Judgement: Good judgement present (Psych) Results Reviewed Results Reviewed: XR HIP, LEFT 04/09/2024. CLINICAL INFORMATION: Fall COMPARISON: None available. TECHNIQUE: Two views of the left hip. One view of the pelvis FINDINGS: Bone alignment is normal. No fracture or dislocation. There is arthritis of both hip joints with joint space narrowing and osteophyte formation. Bones of the pelvis are unremarkable. Degenerative changes of the visualized lower lumbar spine. Spinal stimulator lead projects over the right sacrum. IMPRESSION: Arthritis. No fracture or dislocation. Assessment & Plan Assessment & Plan (1) Chronic pain syndrome: Code(s): G89.4 - Chronic pain syndrome Category: Medical (2) Peripheral neuropathy: Code(s): G62.9 - Polyneuropathy, unspecified Category: Medical (3) Localized swelling of both lower legs: Code(s): R22.43 - Localized swelling, mass and lump, lower limb, bilateral Category: Medical (4) Arthritis of left hip: Code(s): M16.12 - Unilateral primary osteoarthritis, left hip Category: Medical (5) Left hip pain: Code(s): M25.552 - Pain in left hip Category: Medical Plan I will perform therapeutic hip joint steroid injection to help the pain of this patient. She also suffers from peripheral neuropathy and her pain could be neuropathic as well. She is not new to idea of neuromodulation he has sacral stimulator implanted for micturition improvement. In the future to treat her pain we may employed Dayima spinal cord stimulator with stool cervical and 2 thoracic leads positioned to help her pain. Coding Level of Care Code New Pt Level 3 (53863) Diagnoses Chronic pain syndrome G89.4 Peripheral neuropathy G62.9 Localized swelling of both lower legs R22.43 Arthritis of left hip M16.12 Left hip pain M25.552
[2024-10-11 13:17] VITALS: BP 142/76; PULSE 110; RESP 18; O2SAT 96; BMI 38.6
== END 2024-10-11 13:36 | disposition home or self-care (01) ==
PROVIDERS: PCP Internal Medicine; Visit Provider Anesthesiology
DX: G89.4 Chronic pain syndrome (principal); G62.9 Polyneuropathy, unspecified; R22.43 Localized swelling, mass and lump, lower limb, bilateral; M16.12 Unilateral primary osteoarthritis, left hip; M25.552 Pain in left hip
CPT/HCPCS: 99203

== ENCOUNTER → 2024-10-11 12:59 | Outpatient (BNVA) | payer OTHER, SELFPAY | PROVIDERS: PCP Internal Medicine; Visit Provider Anesthesiology | DX: M16.12 Unilateral primary osteoarthritis, left hip (principal); M25.552 Pain in left hip; G89.4 Chronic pain syndrome; G62.9 Polyneuropathy, unspecified; R22.43 Localized swelling, mass and lump, lower limb, bilateral; Z96.82 Presence of neurostimulator; Z73.6 Limitation of activities due to disability | CPT/HCPCS: 99202 ==

== ENCOUNTER 2024-11-29 12:28 | Outpatient (AMB) | payer OTHER, SELFPAY ==
--- NOTE | 2024-11-29 12:33 | A.OFFVIS_ITS ---
Vital Signs 3 11/29/24 12:39 Height 5 ft 4 in Weight 223 lb 5.252 oz BMI 38.3 BP 146/68 H Blood Pressure Location Rt brachial Position Sitting Pulse 97 Pulse Source Pulse Oximeter Intake Visit Reasons: MNG, Diabetes Intake Note: Patient present today to follow up on Diabetes Mellitus and MNG. Last Diabetes Exam: March 23, 2024, Has an appt Dec 13, 2024 Last Podiatry Visit: Has an appointment Dec 2024 Random Glucose: 319 mg/dl HgA1C: 8.4% 11/29/2024 Wrapper Cashier Required: No Accompanied by: Daughter Allergies diclofenac [From Voltaren] Allergy (Severe, Verified 11/29/24 12:40) enlarged liver lisinopril [From Zestril] Allergy (Severe, Verified 11/29/24 12:40) Angioedema Penicillins [PENICILLINS] Allergy (Intermediate, Verified 11/29/24 12:40) Facial Swelling oxybutynin [Oxybutynin] Adverse Reaction (Severe, Verified 11/29/24 12:40) body twitching metformin Adverse Reaction (Intermediate, Verified 11/29/24 12:40) Diarrhea gabapentin Adverse Reaction (Verified 11/29/24 12:40) Hypertension duloxetine Adverse Reaction (Intermediate, Uncoded 11/29/24 12:40) tachycardia Medication List - Last Reconciled 11/29/24 by Saadia Goodrich MD acetaminophen 325 mg PO QID PRN albuterol sulfate 90 mcg/actuation 1 puff inhalation QID albuterol sulfate 2.5 mg (3 mL) inhalation Q4-6H PRN alcohol swabs (Alcohol Prep Pads) topically tests 4 X/day; amlodipine 5 mg PO BID 30 days ascorbic acid (vitamin C) (Vitamin C) 500 mg PO DAILY aspirin (Adult Aspirin Regimen) 81 mg PO DAILY 90 days [baby wipes As directed] blood sugar diagnostic (FreeStyle Lite Strips) check BS 3X/DAY blood-glucose meter (FreeStyle Lite Meter kit) As directed cholecalciferol (vitamin D3) 50 mcg PO DAILY clonidine HCl 0.1 mg PO BEDTIME clotrimazole 1% 1 appl topical BID 4 weeks collagenase clostridium histo. (Santyl) 1 appl topical DAILY compress.stocking,knee,reg,lrg As directed 20-30 mm HG cyanocobalamin (vitamin B-12) 1,000 mcg PO DAILY dexamethasone 1 mg PO ONCE ferrous sulfate (Iron (ferrous sulfate)) 325 mg PO FR@0900 fluticasone propionate 50 mcg/actuation (Flonase Allergy Relief) 1 spray intranasal BID glucagon 3 mg/actuation (Baqsimi) 3 mg intranasal ONCE PRN 30 days MDD 6 mg [Incontinence BED PADS WASHABLE As directed] insulin glargine (Lantus Solostar U-100 Insulin) 30 units (0.3 mL) subcut DAILY lancets (FreeStyle Lancets) USE DIRECTED THREE TIMES A DAY (BULK) letrozole 2.5 mg PO DAILY [matectomy BRA As directed] Novolog FlexPen U-100 Insulin (insulin aspart U-100) 10 units with breakfast and lunch and 14 units with subcutaneously; NS omeprazole 20 mg PO DAILY oxycodone-acetaminophen 5-325 mg (Percocet) 1 tab PO Q8H PRN paroxetine HCl 20 mg PO DAILY 90 days pen needle, diabetic (BD Ultra-Fine Micro Pen Needle) as directed with insulin [PULL UPS medium As directed] ropinirole 1 mg PO BID sennosides (Senokot) 8.6 mg PO BID solifenacin (Vesicare) 5 mg PO DAILY tirzepatide (Mounjaro) 2.5 mg (0.5 mL) subcut QWEEK triamcinolone acetonide 0.1% 1 appl topical DAILY umeclidinium-vilanterol 62.5-25 mcg/actuation (Anoro Ellipta) 1 inh inhalation DAILY zinc gluconate 50 mg PO DAILY HPI Comments Details: 64 YO F who is seen today for f/u for T2DM, MNG and adrenal adenoma. Her today with daughter Henna Type 2DM Initially diagnosed with T2DM in 10 years ago . Prior meds Was initially started on treatment with Glipizide, Couldn't tolerate metformin Ozempic not effective Current meds Lantus 30 units am Novolog 20 units with breakfast and lunch and occasionally dinner out of refills for the past week takes it 15 mins before Prescription was sent from Mounjaro 2.5 mg weekly in August 2024, but patient says she had to pay 200 dollar co-pay per month and could not afford it., unclear if a prior authorization was done. Family history of T2DM in Father Last Diabetes Exam: March 23, 2024, Has an appt Dec 13, 2024 Last Podiatry Visit: Has an appointment Dec 2024 Has neuropathy, Symptoms:numbness, tingling some stocking like symptoms Has nephropathy, not on MO/ARB. 03/2024 Microalbumin:46 10/14: eGFR>60 Has HLD, Not on statin?? LDL 131 from March 2024, she tells me that in September 2024 she had some numbness and tingling on the right side of her body that resolved, question stroke? ? PVD Was told she had PVD in the past. No recent studies Denies CAD. Denies hypoglycemia Reports polyuria, polydipsia, urinary incontinence CGM data downloaded November 16 to 11/29/2024. She has been out of her NovoLog for the past week and she has been consistently hyperglycemic throughout the day. No hypoglycemic episodes noted. In target range only 22% of the time, running high 59% of the time and very high 19% of the time. MNG Ultrasound from 01/21/2023 showed multinodular goiter with a 1.5 TR 4 right lower dominant and isthmus 1.2 cm TR 4 nodule, both were biopsied in June 2023 with benign cytology. Does have intermittent dysphagia. Barium swallow Sep 2024 showed some slowing of esophageal peristalsis. No other compressive symptoms. Last thyroid function testing from March 2024 showed normal TSH of 1.92, normal free T4 of 0.99. No family history of thyroid cancer, or thyroid disease. B/L adrenal adenomas Bilateral adrenal adenomas, 2.4 cm right adrenal adenoma and 2.4 cm left adrenal adenoma, with benign washout features. Remained stable since 2010. Repeat CT scan from August 2022 again showed similar appearance of the nodules. Clearly these are benign and stable in size from 2021. In terms of function workup, plasma normetanephrine and metanephrine levels were normal from March 2024. She has not had her renin and aldosterone level so we should check those. Patient has repeatedly failed to do dexamethasone suppression test. We will also order this again. Physical exam General: sitting comfortably in no acute distress HEENT: normocephalic/atraumatic, Neck: supple Cardiac: normal heart sounds Pulm: normal breath sounds B/L, no added breath sounds Abd: not distended, no tenderness Extremities: no edema, no signs of myxedema Neuro: AAO x3, Speech: normal, no facial droop, moving all 4 extremities Laboratory Tests 03/22/24 03/22/24 08/09/24 14:35 Unknown 13:53 Sodium Potassium Creatinine Estimated GFR Random Glucose Hgb A1c (Clinic) 8.4 H AST ALT Albumin Triglycerides 295 H Cholesterol 227 H LDL Cholesterol, Calc 131 H HDL Cholesterol 37 L Vitamin B12 561 TSH 1.92 Free T4 0.99 Plasma Free Metaneph 28 Plasma Free Normeta 86 Plas Total Metaneph 114 Urine Creatinine 168.57 Urine Microalbumin 46.0 Microalb/Creat Ratio 27.2 10/12/24 11:25 Sodium 139 Potassium 3.8 Creatinine 0.63 Estimated GFR > 60 Random Glucose 200 H Hgb A1c (Clinic) AST 19 ALT 23 Albumin 3.8 Triglycerides Cholesterol LDL Cholesterol, Calc HDL Cholesterol Vitamin B12 TSH Free T4 Plasma Free Metaneph Plasma Free Normeta Plas Total Metaneph Urine Creatinine Urine Microalbumin Microalb/Creat Ratio EXAMINATION: 09/04/22 CT ANGIOGRAM OF THE CHEST; CONTRAST-ENHANCED CT OF THE ABDOMEN AND PELVIS INDICATION: Shortness of breath, history of malignancy, rule out PE, leukocytosis, nausea, poor by mouth intake COMPARISON: 07/15/2022 TECHNIQUE: 100 MLO Omnipaque 350 IV contrast was utilized. Multidetector helical imaging was performed through the chest per PE protocol. Coronal, sagittal, and MIP images of the chest were created. In addition, multidetector helical imaging was performed through the abdomen and pelvis. Coronal and sagittal reformatted images were created at the technologist workstation. DOSE LOWERING TECHNIQUES: This CT examination was performed using dose optimization techniques as appropriate, variously including the following: - Automated exposure control - Adjustment of mA and/or kV according to patient size (this includes techniques or standardized protocols for targeted exams were dose is matched to indication/reason for exam; i.e. extremities or head) - Use of iterative reconstruction technique DLP: 1460 mGy-cm FINDINGS: Chest: No filling defects are seen in the main, lobar, or segmental pulmonary arteries to suggest the presence of pulmonary emboli. Several mild patchy peripheral groundglass opacities are noted in the bilateral upper lobes. No pneumothorax or pleural effusion. Mild asymmetric prominence of the right thyroid lobe. There are subcentimeter mediastinal lymph nodes within the range of normal variation. Cardiac size is within normal limits; no pericardial effusion. No evidence of aortic dissection. Scattered atherosclerotic plaque and calcification along the aorta. Right IJ port catheter tip lies in the region of the cavoatrial junction. No axillary lymphadenopathy is present. Asymmetric left breast skin thickening noted, also present on prior PET CT 06/08/2022. Abdomen/Pelvis: The liver is homogeneous in attenuation without intrahepatic biliary ductal dilatation. The gallbladder appears absent. The spleen and pancreas appear unremarkable. Redemonstrated bilateral adrenal nodules, previously characterized as adenomas on adrenal protocol CT 07/15/2022. Bilateral nephrograms are symmetric. Prominent right extrarenal pelvis again noted. Small bilateral hypoattenuating renal lesions favor cysts; no follow-up recommended. No obstructing renal or ureteral calculi are present. A couple bilateral renal calculi are noted measuring up to 3 mm in the lower left kidney. The urinary bladder is unremarkable. The uterus and adnexa are unremarkable. No evidence of bowel obstruction or significant wall thickening. Sigmoid colon diverticulosis without diverticulitis. There is moderate stool within the colon. Appendix is not identified. No free fluid or free air is identified. Scattered atherosclerotic calcifications. No retroperitoneal or pelvic lymphadenopathy is seen. Generator device is present in the right flank subcutaneous tissues with lead extending to the right sacrum. Degenerative changes including prominent facet arthropathy in the lower lumbar spine. CT/CT abdomen pelvis w IV con IMPRESSION: 1. No pulmonary embolus identified. 2. Several mild patchy peripheral groundglass opacities in the bilateral upper lobes, raising suspicion for an infectious/inflammatory etiology. Covid pneumonia would be a consideration. 3. Mild asymmetric prominence of the right thyroid lobe. Correlation with recent or follow-up thyroid ultrasound is advised. 4. No acute findings identified in the abdomen/pelvis. CT ADRENAL WITHOUT AND WITHOUT CONTRAST 07/15/22 CLINICAL INFORMATION: Follow-up right adrenal lesions. History of breast cancer. COMPARISON: Previous PET/CT scan May [address] of the abdomen and pelvis January 2011. TECHNIQUE: Axial images through the abdomen with and without IV contrast. 80 mL of Omnipaque 350 intravenous contrast was given. Sagittal and coronal reconstructions on the technologist workstation were performed. This CT examination was performed using dose optimization techniques as appropriate, variously including the following: *Automated exposure control *Adjustment of mA and/or kV according to patient size (this includes techniques or standardized protocols for targeted exams where dose is matched to indication/reason for exam; i.e. extremities or head) *Use of iterative reconstruction technique FINDINGS: There are 3 adrenal lesions. There is a 1.8 x 2.4 cm right adrenal lesion. Hounsfield units precontrast measure 29. Hounsfield units postcontrast measure 78. Delayed Hounsfield units postcontrast measure 36. Relative washout measures 54%. There is a 1.8 x 2.4 cm left adrenal nodule. Hounsfield units precontrast measure -6. Hounsfield units postcontrast measure 45. Delayed Hounsfield units postcontrast measure 8. Relative washout measures 74%. There is a 1.1 x 2.1 cm more inferior left adrenal lesion. Hounsfield units precontrast measure 10. Hounsfield units postcontrast measure 49. Delayed Hounsfield units postcontrast measure 18. Relative washout measures 63%. All adrenal lesions have washout characteristics suggestive of benign adenomas. These do not appear appreciably changed compared to old CT from January 2011. The lung bases are clear. There is skin thickening of the left breast. The liver is low in attenuation suggestive of fatty infiltration. No focal liver lesion. Gallbladder not seen. No biliary duct dilatation. Normal pancreas. Normal spleen. Small stone in the lower pole of the left kidney. Small left renal cyst. Fullness of the right renal pelvis questionable for mild UPJ obstruction versus extrarenal pelvis. No calyceal dilatation. Atherosclerotic disease. No aneurysm. No ascites or adenopathy. Visualized bowel is unremarkable. There are degenerative changes of the spine. There are lucent lesions in the L3 and L4 spinous processes. This did not demonstrate increased uptake on PET CT scan and could be related to degenerative change. CT/CT adrenal wo/w con IMPRESSION: 3 adrenal lesions, one on the right and 2 on the left. All adrenal lesions have washout characteristics suggestive of benign adenomas. Small left renal stone and small left renal cyst. Fatty liver. US THYROID 02/10/23 CLINICAL INFORMATION: Nontoxic multinodular goiter. COMPARISON: Ultrasound soft tissue head/neck thyroid dated 01/07/2012. TECHNIQUE: Linear transducer grayscale and color Doppler examination with attention to the region of the thyroid. FINDINGS: SIZE: Measurements of the thyroid lobes and nodules are given in sagittal, anteroposterior and transverse dimensions respectively. Right Thyroid Lobe: 4.1 x 2.0 x 1.9 cm, volume 8.1 mL. Previously 4.5 x 1.6 x 1.1 cm, volume 4.1 mL. Parenchyma: The gland echotexture is homogeneous. Thyroid vascularity is normal. Left Thyroid Lobe: 3.4 x 1.4 x 1.4 cm, volume 3.5 mL. Previously 3.7 x 0.8 x 1.2 cm, volume 1.9 mL. Parenchyma: The gland echotexture is homogeneous. Thyroid vascularity is normal. Isthmus: 0.9 cm in maximum AP dimension. Previously 0.6 cm. Estimated total number of nodules greater than or equal to 1 cm: 2. Regional Safety Manager nodules are described as follows: 1. Location: Left isthmus. Size: 1.2 x 1.2 x 0.8 cm, volume 0.6 mL. Previously: 0.7 x 0.4 x 0.6 cm, volume 0.09 mL. Nodule characteristics: Composition: Solid (2). Echogenicity: Isoechoic (1). Shape: Taller than wide (3). Margins: Smooth (0). Echogenic Foci: None (0). ACR TI-RADS total points: 6. ACR TI-RADS category: 4. Significant change in size (>/= 20% in 2 dimensions and minimal increase of 2 mm or 50% or greater increase in volume): Slight increase in volume. Change in features: None. Change in ACR TI-RADS risk category: Not available. 2. Location: Right mid. Size: 0.9 x 0.9 x 1.3 cm, volume 0.6 mL. Previously: 0.8 x 0.6 x 0.9 cm, volume 0.2 mL. Nodule characteristics: Composition: Solid (2). Echogenicity: Isoechoic (1). Shape: Not taller than wide (0). Margins: Smooth (0). Echogenic Foci: None (0). ACR TI-RADS total points: 3. ACR TI-RADS category: 3. Significant change in size (>/= 20% in 2 dimensions and minimal increase of 2 mm or 50% or greater increase in volume): None. Change in features: None. Change in ACR TI-RADS risk category: Not available. 3. Location: Right inferior. Size: 1.5 x 1.4 x 1.3 cm, volume 1.5 mL. Previously: 1.6 x 1.1 x 1.0 cm, volume 0.9 mL. Nodule characteristics: Composition: Solid (2). Echogenicity: Hyperechoic (1). Shape: Taller than wide (3). Margins: Smooth (0). Echogenic Foci: None (0). ACR TI-RADS total points: 6. ACR TI-RADS category: 4. Significant change in size (>/= 20% in 2 dimensions and minimal increase of 2 mm or 50% or greater increase in volume): None. Change in features: None. Change in ACR TI-RADS risk category: None available. NODES: No lymphadenopathy is seen in the tissue surrounding the thyroid gland. US/US thyroid IMPRESSION: Slightly enlarged right thyroid lobe. There are 3 thyroid nodules visualized. There is a left isthmus nodule with a TI-RADS category 4. Recommend followup as per TI-RADS recommendation. ACR TI-RADS RECOMMENDATIONS: TR1 (0 point) and TR2 (2 points): No FNA or followup. TR3 (3 points): FNA if more than or equal 2.5 cm in maximum dimension, followup in 1, 3 and 5 years if 1.5 to 2.4 cm in maximum dimension. TR4 (4-6 points): FNA if more than or equal to 1.5 cm in maximum dimension, followup in 1, 2, 3 and 5 years if 1 to 1.4 cm in maximum dimension. TR5 (more than or equal to 7 points): FNA is more than or equal to 1 cm in maximum dimension, followup. 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 Cervical cancer screening Generalized anxiety disorder Type 2 diabetes mellitus with hyperglycemia History of anal fissures Peripheral vascular disease Urinary incontinence Hypertension COPD (chronic obstructive pulmonary disease) Hypercholesterolemia Surgical History H/O total mastectomy of left breast (12/21/22) History of biopsy History of endometrial ablation Hx of tubal ligation History of tonsillectomy History of appendectomy History of cholecystectomy History of bladder surgery History of left knee replacement Family History Mother History of breast cancer Father Prostate CA Brother No problems noted. Brother No problems noted. Daughter No problems noted. 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 () Do you presently have visiting nurse or other home services: No Alcohol intake: current Alcohol intake frequency: holidays/special occasions only Comment: Fell 08/2022, leg weakness 1 glass on holidays Patient Tobacco Use Status: Current everyday Tobacco user Tobacco use type: Cigarette Cigarettes Per Day: 2 Years Smoked: 40, 1 pack a day e-Cigarette/Vaping Use: Never Used Second Hand Smoke Exposure: No service: No Current occupational status: disabled Cognitive needs: No Hearing needs: No Vision needs: Yes Female Reproductive History Menstrual Age of Menarche: 10 Physical Exam Vital Signs: BMI result Body Mass Index 38.3 Office Procedures Glucose Monitoring Details Details: see [facility] [id number] - Glucose monitoring, continuous-physician I&R Procedure code (CPT) selection complete Results AMB Hemoglobin A1c 2 AMB Hemoglobin A1c 8.4 % Last Edit by EDEN Zimmerman on 11/29/24 13:12 Assessment & Plan Assessment & Plan (1) Type 2 diabetes mellitus with hyperglycemia: Comment: Dr. Osman Code(s): E11.65 - Type 2 diabetes mellitus with hyperglycemia Category: Medical Qualifiers: Diabetes mellitus press tender long goods insulin use: with alf use Qualified Code(s): E11.65 - Type 2 diabetes mellitus with hyperglycemia; Z79.4 - assisted (current) use of insulin Plan: 64-year-old female with type 2 diabetes mellitus on basal bolus regimen, with hyperglycemia, with complications of neuropathy, microalbuminuria, coming in today for follow up. A1c today 8.4%, which is the same as it was from July 2024, however she has been out of her NovoLog for the past week and she did not call for refills, has only been taking Lantus. Hence CGM data shows that she has been running hyperglycemic throughout the day. Blood glucose today at 319. She denies any nausea, vomiting, abdominal pain, mental status changes. I did advise her on getting her recent AUDREY, refill done today and sent to [facility]. Also stressed to her upon keeping up with good hydration. She was sent Mounjaro 2.5 mg weekly in August 2024, however has a very high co- pay? I will reach out to our staff to see if she needs a prior authorization for reduction of co-pay or otherwise we will send Trulicity. Apparently Ozempic was ineffective/could not tolerate in the past. She could not tolerate metformin in the past? Once her sugars are better controlled we will consider starting her on SGLT2 inhibitor as well. She also potentially had a mini stroke in September 2020 4? Unclear new investigations done, symptoms resolved. She did lose her has been in May 2024, she is still suffering from the trauma/adjustment disorder of the tragedy. Plan: -continue Lantus 30 units daily -continue NovoLog 20 units t.i.d. before meals -consider sending Trulicity instead of Mounjaro -follow up with Ophthalmology, next appointment in April 2025 -has a upcoming appointment with podiatry -follow up in 3 weeks with me (2) Adrenal adenoma: Code(s): D35.00 - Benign neoplasm of unspecified adrenal gland Category: Medical Qualifiers: Laterality: unspecified laterality Qualified Code(s): D35.00 - Benign neoplasm of unspecified adrenal gland Plan: Bilateral adrenal adenomas, 2.4 cm right adrenal adenoma and 2.4 cm left adrenal adenoma, with benign washout features. Remained stable since 2010. Repeat CT scan from August 2022 again showed similar appearance of the nodules. Clearly these are benign and stable in size from 2021. In terms of function workup, plasma normetanephrine and metanephrine levels were normal from March 2024. She has not had her renin and aldosterone level so we should check those. Patient has repeatedly failed to do dexamethasone suppression test. We will also order this again. Plan: -ordered dexamethasone suppression test -check baseline cortisol, acth, plasma aldosterone level and plasma renin activity (3) Multinodular goiter: Code(s): E04.2 - Nontoxic multinodular goiter Category: Medical Plan: Ultrasound from 01/21/2023 showed multinodular goiter with a 1.5 TR 4 right lower dominant and isthmus 1.2 cm TR 4 nodule, both were biopsied in June 2023 with benign cytology. Does have intermittent dysphagia. Barium swallow Sep 2024 showed some slowing of esophageal peristalsis. No other compressive symptoms. Last thyroid function testing from March 2024 showed normal TSH of 1.92, normal free T4 of 0.99. Plan: Ordered thyroid US Plan I spent 45 minutes in reviewing the record, seeing the patient and documenting in the medical record. Orders: Orders 2 AMB Hemoglobin A1c Today E11.65 - Type 2 diabetes mellitus with hyperglycemia DHEA Sulfate 12/06/24 D35.00 - Benign neoplasm of unspecified adrenal gland, E04.2 - Nontoxic multinodular goiter, E11.65 - Type 2 diabetes mellitus with hyperglycemia, Z79.4 - terminal make up operator (current) use of insulin Cortisol Random 12/06/24 D35.00 - Benign neoplasm of unspecified adrenal gland, E04.2 - Nontoxic multinodular goiter, E11.65 - Type 2 diabetes mellitus with hyperglycemia, Z79.4 - assisted (current) use of insulin Adrenocorticotropic Hormone 12/10/24 D35.00 - Benign neoplasm of unspecified adrenal gland, E04.2 - Nontoxic multinodular goiter, E11.65 - Type 2 diabetes mellitus with hyperglycemia, Z79.4 - assisted (current) use of insulin US thyroid Today E04.2 - Nontoxic multinodular goiter Comprehensive Met. Panel 12/06/24 D35.00 - Benign neoplasm of unspecified adrenal gland, E04.2 - Nontoxic multinodular goiter, E11.65 - Type 2 diabetes mellitus with hyperglycemia, Z79.4 - terminal make up operator (current) use of insulin TSH reflex Free T4 12/06/24 D35.00 - Benign neoplasm of unspecified adrenal gland, E04.2 - Nontoxic multinodular goiter, E11.65 - Type 2 diabetes mellitus with hyperglycemia, Z79.4 - terminal make up operator (current) use of insulin Lipid Panel 12/06/24 D35.00 - Benign neoplasm of unspecified adrenal gland, E04.2 - Nontoxic multinodular goiter, E11.65 - Type 2 diabetes mellitus with hyperglycemia, Z79.4 - terminal make up operator (current) use of insulin Microalbumin, Random (w Creat) 12/06/24 D35.00 - Benign neoplasm of unspecified adrenal gland, E04.2 - Nontoxic multinodular goiter, E11.65 - Type 2 diabetes mellitus with hyperglycemia, Z79.4 - terminal make up operator (current) use of insulin Aldosterone 12/06/24 D35.00 - Benign neoplasm of unspecified adrenal gland, E04.2 - Nontoxic multinodular goiter, E11.65 - Type 2 diabetes mellitus with hyperglycemia, Z79.4 - terminal make up operator (current) use of insulin Renin 12/06/24 D35.00 - Benign neoplasm of unspecified adrenal gland, E04.2 - Nontoxic multinodular goiter, E11.65 - Type 2 diabetes mellitus with hyperglycemia, Z79.4 - assisted (current) use of insulin Adrenocorticotropic Hormone 12/06/24 D35.00 - Benign neoplasm of unspecified adrenal gland, E04.2 - Nontoxic multinodular goiter, E11.65 - Type 2 diabetes mellitus with hyperglycemia, Z79.4 - terminal make up operator (current) use of insulin Dexamethasone 12/10/24 D35.00 - Benign neoplasm of unspecified adrenal gland, E04.2 - Nontoxic multinodular goiter, E11.65 - Type 2 diabetes mellitus with hyperglycemia, Z79.4 - terminal make up operator (current) use of insulin Cortisol Random 12/10/24 D35.00 - Benign neoplasm of unspecified adrenal gland, E04.2 - Nontoxic multinodular goiter, E11.65 - Type 2 diabetes mellitus with hyperglycemia, Z79.4 - terminal make up operator (current) use of insulin AMB Glucose Monitoring Today E11.65 - Type 2 diabetes mellitus with hyperglycemia, Z79.4 - terminal make up operator (current) use of insulin Medications: New 2 atorvastatin 40 mg PO BEDTIME 90 tabs 5RF Changed 2 From Novolog FlexPen U-100 Insulin (insulin aspart U-100) 10 units with breakfast and lunch and 14 units with subcutaneously; 15 mL 3RF NS To Novolog FlexPen U-100 Insulin (insulin aspart U-100) 20 units (0.2 mL) subcut TID 15 mL 7RF NS Refilled 2 insulin glargine (Lantus Solostar U-100 Insulin) 30 units (0.3 mL) subcut DAILY 15 mL 7RF E11.65 - Type 2 diabetes mellitus with hyperglycemia Patient Instructions: Do thyroid ultrasound , someone will call you to schedule this Do a set of baseline blood work at 8 AM fasting next week The week after that do dexamethasone suppression test Dexamethasone suppression test I would like you to do a dexamethasone suppression test to rule out Cushings syndrome. You will take a 1 mg pill of dexamethasone at 11 PM and then have a blood draw for cortisol at 8AM the next morning. It is important to make sure you take the dexamethasone at 11 PM and have the blood test as close to 8AM as possible. Coding Level of Care Code Est Pt Level 5 (40533) Diagnoses Type 2 diabetes mellitus with hyperglycemia, with long-term current use of insulin E11.65; Z79.4 Diabetes mellitus press tender long goods insulin use: with alf use Adrenal adenoma, unspecified laterality D35.00 Laterality: unspecified laterality Multinodular goiter E04.2 CPT Codes Details - CPT: 09757 - Glucose monitoring, continuous-physician I&R ([id number]) Time Spent (min) 45
[2024-11-29 12:39] VITALS: BP 146/68; PULSE 97; BMI 38.3
[2024-11-29 13:06] LABS: Glucose, Whole Blood 319 mg/dL (60-115)
== END 2024-11-29 13:48 | disposition home or self-care (01) ==
PROVIDERS: PCP Internal Medicine; Visit Provider Student in an Organized Health Care Education/Training Program
DX: E11.65 Type 2 diabetes mellitus with hyperglycemia (principal); Z79.4 Long term (current) use of insulin; D35.00 Benign neoplasm of unspecified adrenal gland; E04.2 Nontoxic multinodular goiter
CPT/HCPCS: 95251; 99215

== ENCOUNTER → 2024-11-29 12:28 | Outpatient (BNVA) | payer OTHER, SELFPAY | PROVIDERS: PCP Internal Medicine; Visit Provider Student in an Organized Health Care Education/Training Program | DX: E04.1 Nontoxic single thyroid nodule (principal); C50.912 Malignant neoplasm of unspecified site of left female breast; D35.00 Benign neoplasm of unspecified adrenal gland; I10 Essential (primary) hypertension; Z23 Encounter for immunization; J44.9 Chronic obstructive pulmonary disease, unspecified; E78.00 Pure hypercholesterolemia, unspecified; E11.65 Type 2 diabetes mellitus with hyperglycemia; E66.9 Obesity, unspecified; M16.12 Unilateral primary osteoarthritis, left hip; R13.10 Dysphagia, unspecified; R53.1 Weakness; R32 Unspecified urinary incontinence; E04.2 Nontoxic multinodular goiter; Z79.4 Long term (current) use of insulin; Z79.82 Long term (current) use of aspirin; Z72.0 Tobacco use; Z90.12 Acquired absence of left breast and nipple | CPT/HCPCS: 82947; 83036; 90471; 90656; 99212 ==

== ENCOUNTER 2024-11-29 13:57 | Outpatient (AMB) | payer OTHER, SELFPAY ==
[2024-11-29 14:07] VITALS: BP 162/62; PULSE 92; O2SAT 96; BMI 37.9
--- NOTE | 2024-11-29 14:07 | A.OFFPC_ITS ---
Vital Signs 11/29/24 14:07 Height 5 ft 4 in Weight 221 lb BMI 37.9 BP 162/62 H Blood Pressure Location Lt brachial Position Sitting Pulse 92 Pulse Source Pulse Oximeter Pulse Oximetry (%) 96 Oxygen Delivery Method Room Air Intake Visit Reasons: DM, Patient believes she had a mini stroke Allergies diclofenac [From Voltaren] Allergy (Severe, Verified 11/29/24 14:08) enlarged liver lisinopril [From Zestril] Allergy (Severe, Verified 11/29/24 14:08) Angioedema omeprazole Allergy (Intermediate, Unverified 11/29/24 15:12) elevated blood pressure Penicillins [PENICILLINS] Allergy (Intermediate, Verified 11/29/24 14:08) Facial Swelling oxybutynin [Oxybutynin] Adverse Reaction (Severe, Verified 11/29/24 14:08) body twitching metformin Adverse Reaction (Intermediate, Verified 11/29/24 14:08) Diarrhea gabapentin Adverse Reaction (Verified 11/29/24 14:08) Hypertension duloxetine Adverse Reaction (Intermediate, Uncoded 11/29/24 14:08) tachycardia Tobacco use date assessed: 11/29/24 Dental Screening Dental Screen Date: 11/29/24 Did you have a dental visit in the last 12 months?: Yes Did you have a dental problem in the last 6 months where you did not have access to dental care?: No Was dental information given to patient?: Patient has dentist HPI DM HPI Details The patient is a 64-year-old female presenting with management of Type 2 Diabetes Mellitus and Hypertension, assessment after a suspected Transient Ischemic Attack (TIA), and ongoing issues with urinary incontinence. She has a history of Type 2 Diabetes Mellitus, which she is attempting to manage in coordination with endocrinology. The patient previously considered starting Trulicity but is currently on insulin therapy. She has a history of non- adherence to medication due to personal situations; however, she claims to have corrected this issue. Her blood pressure has been consistently high, with measurements reaching 160 mmHg systolic despite being on amlodipine twice daily. She attributes a rise in blood pressure to the recent use of omeprazole prescribed for ulcer symptoms, though she does not recall experiencing typical gastroesophageal reflux symptoms and has completed the course of medication. The patient recounts an episode around October 23, where she experienced slurred speech and facial asymmetry upon lying down, which she suspects might have been a TIA, and reports persistent issues with speech since the event. She has yet to consult a power plant assistant concerning these symptoms. Additionally, the patient experiences urinary incontinence causing significant leakage and discomfort, noting it has progressively worsened, impacting daily life. She has not consulted urology recently nor undergone a urinalysis. The history also notes challenges with medication management due to insurance issues and multiple logistics concerning pending consultations. Conversations about diet and lifestyle changes to aid with diabetes control and weight issues were also documented. Current management includes monitoring and planned reassessment of her blood pressure post-omeprazole cessation. 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 Cervical cancer screening Generalized anxiety disorder Type 2 diabetes mellitus with hyperglycemia History of anal fissures Peripheral vascular disease Urinary incontinence Hypertension COPD (chronic obstructive pulmonary disease) Hypercholesterolemia Surgical History H/O total mastectomy of left breast (12/21/22) History of biopsy History of endometrial ablation Hx of tubal ligation History of tonsillectomy History of appendectomy History of cholecystectomy History of bladder surgery History of left knee replacement Family History Mother History of breast cancer Father Prostate CA Brother No problems noted. Brother No problems noted. Daughter No problems noted. Social History Household Members: Family Household Members Other:: Daughter Housing: House Are you a primary urgent care physician to a significant other at home: Yes () Do you presently have visiting nurse or other home services: No Alcohol intake: current Alcohol intake frequency: holidays/special occasions only Comment: Fell 08/2022, leg weakness 1 glass on holidays Patient Tobacco Use Status: Current everyday Tobacco user Tobacco use type: Cigarette Cigarettes Per Day: 2 Years Smoked: 40, 1 pack a day e-Cigarette/Vaping Use: Never Used Second Hand Smoke Exposure: No service: No Current occupational status: disabled Cognitive needs: No Hearing needs: No Vision needs: Yes Female Reproductive History Menstrual Age of Menarche: 10 Questionnaire PHQ-9 Over the last 2 weeks, how often have you been bothered by any of the following problems? 1. Little interest or pleasure in doing things: not at all 2. Feeling down, depressed, or hopeless: nearly every day 3. Trouble falling or staying asleep, or sleeping too much: nearly every day 4. Feeling tired or having little energy: nearly every day 5. Poor appetite or overeating: more than half the days 6. Feeling bad about yourself - or that you are a failure or have let yourself or your family down: nearly every day 7. Trouble concentrating on things, such as reading the newspaper or watching television: nearly every day 8. Moving or speaking so slowly that other people could have noticed. Or the opposite - being so fidgety or restless that you have been moving around a lot more than usual: not at all 9. Thoughts that you would be better off or of hurting yourself in some way: not at all Total score: 17 Depression Screening Interpretation: Positive Depression Screening Done: Yes Source: Developed by Drs. Ravindra Calderon, Jena Sweet, García Barnard and colleagues, with an educational hayde from [employer]. Thrive Questionnaire Date Thrive assessed: 11/29/24 I am a: Patient What is your living situation today?: I have a steady place to live Within the past 12 months, did the food you bought not last and you didn't have the money to get more?: Often true Within the past 12 months, did you worry whether your food would run out before you got money to buy more?: Often true Do you have trouble paying for medicines?: I choose not to answer this question Do you have trouble getting transportation to medical appointments?: Yes Do you have trouble paying your heating and electricity bill?: Yes Do you have trouble taking care of your child, family member or friend?: No Do you have trouble with day-to-day activities such as bathing, preparing meals, shopping, managing finances, etc.?: Yes Are you currently unemployed and looking for a job?: Yes Are you interested in more education?: No Please select the resources that you would like help with: Food, Transportation, Utilities and Care for elder or disabled Currently or been in a relationship where the following occur: No concerns reported THRIVE Score: 4 AUDIT C Alcohol Use Questionnaire (AUDIT-C) 1. How often do you have a drink containing alcohol?: Never Total Score: 0 PARMJIT-7 AMB Questionnaire PARMJIT-7 Date PARMJIT - 7 assessed: 11/29/24 Feeling nervous, anxious, or on edge: 3 = Nearly every day Not being able to stop or control worryin = Nearly every day Worrying too much about different things: 3 = Nearly every day Trouble relaxin = Nearly every day Being so restless that it is hard to sit still: 3 = Nearly every day Becoming easily annoyed or irritable: 2 = More than half the days Feeling afraid as if something awful might happen: 3 = Nearly every day Total PARMJIT-7 score (0-4 normal; 5-9 mild; 10-14 moderate; 15-21 severe): 20 Source: Developed by Drs. Ravindra Calderon, Jena Sweet, García Barnard and colleagues, with an educational hayde from [employer]. Physical exam (Primary Care) Vital Signs: Last Vital Signs Pulse 92 11/29/24 14:07 BP 162/62 H 11/29/24 14:07 Pulse Ox 96 11/29/24 14:07 Oxygen Delivery Method Room Air 11/29/24 14:07 BMI result Body Mass Index 37.9 Tobacco/Smoking Status: Tobacco use Status Tobacco use date assessed 11/29/24 11/29/24 14:16 Patient Tobacco Use Status Current everyday Tobacco 11/29/24 14:16 Tobacco use type Cigarette 11/29/24 14:16 e-Cigarette/Vaping Use Never Used 11/29/24 14:16 PHQ-9: PHQ-9 Score PHQ-9: Total score 17 11/29/24 15:29 Depression Screening Interpretation: Positive Thrive Assessment: Date of Thrive Assessment Date Thrive assessed 11/29/24 11/29/24 14:16 Currently or been in a relationship where the following occur: No concerns reported Const General: alert; No acute distress Eyes Conjunctivae: conjunctivae normal Resp Auscultation: clear to auscultation bilaterally Cardio Rate: regular rate Rhythm: regular rhythm GI Inspection: Yes normal to inspection Extrem General: Yes normal to inspection and No edema Office Procedures Flu Questionnaire Does the patient have a severe egg allergy?: No Does the patient have severe life threatening allergies?: No Does the patient have a fever or illness today?: No Has the patient ever had Guillain-[place] Syndrome?: No Has the patient ever had any past reaction to a flu shot?: No Results AMB Hemoglobin A1c AMB Hemoglobin A1c 8.4 % Last Edit by EDEN Zimmerman on 11/29/24 13:12 Immunizations Fluarix Triv [id number] (PF) 45 mcg (15 mcg x 3)/0.5 mL IM syringe Performing Provider: Concepción Reyes MD [facility] Administered by: Cara Brito CMA on 11/29/24 15:29 Dose Route Admin Location Dispensed Lot Number Expiration Date NDC R And D Lab Technician 0.5 mL IM Left Deltoid 0.5 mL [id number] 05/20/25 [id number] Impact Radius VIS Given Date VIS Provided VIS Publication Date 11/29/24 Single Vaccine 21 Eligibility Eligibility Date Funding Source Not [facility] Eligible 11/29/24 Private Coding Level of Care Code Est Pt Level 4 (69244) Complex EM visit Add On G2211 Diagnoses Tobacco abuse Z72.0 Invasive ductal carcinoma of left breast C50.912 Thyroid nodule E04.1 Adrenal adenoma, unspecified laterality D35.00 Laterality: unspecified laterality Hypertension I10 COPD (chronic obstructive pulmonary disease) J44.9 Hypercholesterolemia E78.00 Type 2 diabetes mellitus with hyperglycemia, with long-term current use of insulin E11.65; Z79.4 Diabetes mellitus penitentiary insulin use: with penitentiary use Obesity (BMI 30-39.9) E66.9 Arthritis of left hip M16.12 Dysphagia R13.10 Right sided weakness R53.1 Urinary incontinence R32 Assessment & Plan Assessment & Plan (1) Tobacco abuse: Code(s): Z72.0 - Tobacco use Category: Medical (2) Invasive ductal carcinoma of left breast: Comment: 12/21/22, left simple mastectomy with targeted axillary dissection via needle localization of a lymph node was performed by Dr. Teran Code(s): C50.912 - Malignant neoplasm of unspecified site of left female breast Category: Medical (3) Thyroid nodule: Code(s): E04.1 - Nontoxic single thyroid nodule Category: Medical Plan: Referral to endocrinology (4) Adrenal adenoma: Code(s): D35.00 - Benign neoplasm of unspecified adrenal gland Category: Medical Qualifiers: Laterality: unspecified laterality Qualified Code(s): D35.00 - Benign neoplasm of unspecified adrenal gland Plan: Referral to Endocrinology (5) Hypertension: Code(s): I10 - Essential (primary) hypertension Category: Medical Plan: Continue with blood pressure medication. Decrease salt intake and exercise (6) COPD (chronic obstructive pulmonary disease): Code(s): J44.9 - Chronic obstructive pulmonary disease, unspecified Category: Medical Plan: Continue with the inhaler stop smoking! (7) Hypercholesterolemia: Code(s): E78.00 - Pure hypercholesterolemia, unspecified Category: Medical Plan: Avoid fried foods, chicken skin, eggs, butter margarine, pastries and meat. Be it pork or beef they have a lot of cholesterol LDL goal of less than 70 and triglyceride of less than 150 blood work requested (8) Type 2 diabetes mellitus with hyperglycemia: Comment: Dr. Osman Code(s): E11.65 - Type 2 diabetes mellitus with hyperglycemia Category: Medical Qualifiers: Diabetes mellitus glove cutter insulin use: with penitentiary use Qualified Code(s): E11.65 - Type 2 diabetes mellitus with hyperglycemia; Z79.4 - alf (current) use of insulin Plan: Decrease the amount of carbohydrate intake, pasta, bread, rice and potatoes are all sugar and that is aside from all the sweet stuff, remember that fruits are good but they are Sweet also. [facility] (9) Obesity (BMI 30-39.9): Code(s): E66.9 - Obesity, unspecified Category: Medical Plan: Diet and exercise (10) Arthritis of left hip: Code(s): M16.12 - Unilateral primary osteoarthritis, left hip Category: Medical Plan: Continue to be active (11) Dysphagia: Code(s): R13.10 - Dysphagia, unspecified Category: Medical Plan: Patient is being referred to Gastroenterology. (12) Right sided weakness: Code(s): R53.1 - Weakness Category: Medical Plan: CT scan requested and continue with aspirin 81 mg once a day (13) Urinary incontinence: Code(s): R32 - Unspecified urinary incontinence Category: Medical Plan: Timed voiding meaning every 1-2 hours even if you do not feel like urinating empty the bladder, avoid drinks with high sweet content like juices or caffeine that makes her urinate, 2 hours before you sleep hold liquids so that in the morning you do not get the bladder to be too full. Follow-up with urology as the patient has had a InterStim placed in Plan - Monitor blood pressure closely for a week after stopping omeprazole; evaluate necessity to adjust antihypertensive therapy if elevated persists. - Plan for a CT scan of the head to evaluate for any evidence post-suspected TIA; monitor for any further episodes or neurological changes. - Review and adjust diabetes medications as needed; educate and reinforce diet and lifestyle strategies, emphasizing the importance of adherence. - Conduct urinalysis to assess for infection; consider initiating pharmacologic treatment if incontinence persists in absence of infection. Arrange a referral to urology for further evaluation. - Administer influenza vaccine today to enhance preventative care and discuss ongoing preventative health strategies, with particular emphasis on reducing cardiovascular and metabolic risks. - Address weight management concerns in the context of diabetes care, taking into account recent medication adjustments. - Recommend continued dietary modifications and physical activity to support overall health improvement and diabetes management. Patient was informed and verbally consented to the use of an ambient scribe for clinic note documentation during this visit. Orders: Orders Influenza [id number] Immunization Today Z23 - Encounter for immunization CT head/brain wo IV con Today R53.1 - Weakness Referrals Gastroenterology Referral R13.10 - Dysphagia, unspecified Urology Referral R32 - Unspecified urinary incontinence Medications: Refilled oxycodone-acetaminophen 5-325 mg (Percocet) Partial Fill upon patient request. 1 tab PO Q8H PRN 50 tabs 0RF Breakthrough Pain, Moderate N39.41 - Urge incontinence Discontinued omeprazole Discontinued Reason: Doctor's Order 20 mg PO DAILY 30 caps 0RF
== END 2024-11-29 15:38 | disposition home or self-care (01) ==
PROVIDERS: PCP Internal Medicine; Visit Provider Internal Medicine
DX: J44.9 Chronic obstructive pulmonary disease, unspecified (principal); C50.912 Malignant neoplasm of unspecified site of left female breast; E11.65 Type 2 diabetes mellitus with hyperglycemia; Z79.4 Long term (current) use of insulin; Z72.0 Tobacco use; E04.1 Nontoxic single thyroid nodule; D35.00 Benign neoplasm of unspecified adrenal gland; I10 Essential (primary) hypertension; E78.00 Pure hypercholesterolemia, unspecified; E66.9 Obesity, unspecified; M16.12 Unilateral primary osteoarthritis, left hip; Z23 Encounter for immunization

== ENCOUNTER 2024-12-06 08:05 | Outpatient (REF) | payer OTHER, SELFPAY ==
[2024-12-06 09:36] LABS: Alanine Aminotransferase 19 U/L (0-31); Albumin Level 4.1 g/dL (3.5-5.0); Alkaline Phosphatase 139 U/L (39-117); Anion Gap 12 (12-20); Aspartate Amino Transferase 19 U/L (5-31); Bilirubin Total 0.4 mg/dL (0.0-1.0); Blood Urea Nitrogen 13 mg/dL (9-16); Calcium 9.2 mg/dL (8.4-10.2); Carbon Dioxide 23 mmol/L (22-29); Chloride 109 mmol/L (96-108); Cholesterol 230 mg/dL (<200); Estimated Glomerular Filt Rate > 60; Glucose Random 215 mg/dL (60-115); HDL Cholesterol 35 mg/dL (>40); LDL Cholesterol Calculated 133 mg/dL (<100); Sodium 140 mmol/L (135-145); Total Protein 7.3 g/dL (6.5-8.0); Triglycerides 312 mg/dL (<150)
[2024-12-06 10:34] LABS: Cortisol Random 15.6 ug/dL
[2024-12-06 10:45] LABS: TSH reflex Free T4 3.63 uIU/mL (0.32-4.0)
[2024-12-06 11:11] LABS: Microalbum/Creatinine Ratio Ur 566.9 ug/mg cr (<30)
[2024-12-07 20:32] LABS: DHEA Sulfate 49 mcg/dL (9-118)
[2024-12-11 20:28] LABS: Adrenocorticotropic Hormone 7 pg/mL (6-50)
[2024-12-21 14:04] LABS: Renin 0.94 ng/mL/h (0.25-5.82)
== END 2024-12-06 08:06 | disposition home or self-care (01) ==
LOC: HO.LAB 08:05
PROVIDERS: PCP Internal Medicine; Visit Provider Student in an Organized Health Care Education/Training Program
DX: E04.2 Nontoxic multinodular goiter (principal); D35.00 Benign neoplasm of unspecified adrenal gland; E11.65 Type 2 diabetes mellitus with hyperglycemia; Z79.4 Long term (current) use of insulin
CPT/HCPCS: 36415; 80053; 80061; 82024; 82043; 82088; 82533; 82570; 82627; 84244; 84443

== ENCOUNTER → 2024-12-20 11:02 | Outpatient (BNV) | payer OTHER, SELFPAY | PROVIDERS: PCP Internal Medicine; Visit Provider Radiology Diagnostic Radiology | DX: E04.2 Nontoxic multinodular goiter (principal) | CPT/HCPCS: 76536 ==

== ENCOUNTER 2024-12-20 12:58 | Outpatient (AMB) | payer OTHER, SELFPAY ==
[2024-12-20 13:55] VITALS: BP 160/90; PULSE 96; BMI 37.9
--- NOTE | 2024-12-20 13:55 | MHC.OFFVIS ---
Vital Signs 12/20/24 13:55 Height 5 ft 4 in Weight 221 lb BMI 37.9 BP 160/90 H Blood Pressure Location Rt brachial Position Sitting Pulse 96 Pulse Source Pulse Oximeter Intake Visit Reasons: r/s x2 followup after testing Brake Mechanic Required: No Animal Damage Control Agent: Animal Damage Control Agent Present Allergies diclofenac [From Voltaren] Allergy (Severe, Verified 12/20/24 13:58) enlarged liver lisinopril [From Zestril] Allergy (Severe, Verified 12/20/24 13:58) Angioedema omeprazole Allergy (Intermediate, Unverified 12/20/24 13:58) elevated blood pressure Penicillins [PENICILLINS] Allergy (Intermediate, Verified 12/20/24 13:58) Facial Swelling oxybutynin [Oxybutynin] Adverse Reaction (Severe, Verified 12/20/24 13:58) body twitching metformin Adverse Reaction (Intermediate, Verified 12/20/24 13:58) Diarrhea gabapentin Adverse Reaction (Verified 12/20/24 13:58) Hypertension duloxetine Adverse Reaction (Intermediate, Uncoded 12/20/24 13:58) tachycardia Medication List - Last Reconciled 12/20/24 by Nicole Ortega INDEPENDENT JEWELER-C acetaminophen 325 mg PO QID PRN albuterol sulfate 90 mcg/actuation 1 puff inhalation QID albuterol sulfate 2.5 mg (3 mL) inhalation Q4-6H PRN alcohol swabs (Alcohol Prep Pads) topically tests 4 X/day; amlodipine 5 mg PO BID 30 days aspirin (Adult Aspirin Regimen) 81 mg PO DAILY 90 days atorvastatin 40 mg PO BEDTIME [baby wipes As directed] blood sugar diagnostic (FreeStyle Lite Strips) check BS 3X/DAY blood-glucose meter (FreeStyle Lite Meter kit) As directed cholecalciferol (vitamin D3) 50 mcg PO DAILY clonidine HCl 0.1 mg PO BEDTIME clotrimazole 1% 1 appl topical BID 4 weeks collagenase clostridium histo. (Santyl) 1 appl topical DAILY compress.stocking,knee,reg,lrg As directed 20-30 mm HG cyanocobalamin (vitamin B-12) 1,000 mcg PO DAILY ferrous sulfate (Iron (ferrous sulfate)) 325 mg PO FR@0900 fluticasone propionate 50 mcg/actuation (Flonase Allergy Relief) 1 spray intranasal BID glucagon 3 mg/actuation (Baqsimi) 3 mg intranasal ONCE PRN 30 days MDD 6 mg [Incontinence BED PADS WASHABLE As directed] insulin glargine (Lantus Solostar U-100 Insulin) 30 units (0.3 mL) subcut DAILY lancets (FreeStyle Lancets) USE DIRECTED THREE TIMES A DAY (BULK) letrozole 2.5 mg PO DAILY [matectomy BRA As directed] Novolog FlexPen U-100 Insulin (insulin aspart U-100) 20 units (0.2 mL) subcut TID NS oxycodone-acetaminophen 5-325 mg (Percocet) 1 tab PO Q8H PRN paroxetine HCl 20 mg PO DAILY 90 days pen needle, diabetic (BD Ultra-Fine Micro Pen Needle) as directed with insulin [PULL UPS medium As directed] ropinirole 1 mg PO BID sennosides (Senokot) 8.6 mg PO BID solifenacin (Vesicare) 5 mg PO DAILY triamcinolone acetonide 0.1% 1 appl topical DAILY umeclidinium-vilanterol 62.5-25 mcg/actuation (Anoro Ellipta) 1 inh inhalation DAILY zinc gluconate 50 mg PO DAILY HPI HPI r/s x2 followup after testing: Details: Sarah is a 64-year-old female with past medical history of obesity, smoking, breast cancer, hypertension, hyperlipidemia, diabetes who was evaluated for heart palpitations last year without cardiac findings. She now presents for follow-up. Her last visit was 03/29/2024. Today she reports that she still notices heart palpitations. Feels like her heart is beating fast and hard at times. She will get some stabbing pains to her left chest where she had her mastectomy. She has no chest discomfort brought on by just walking. She has shortness of breath with activity and blames it on her weight. She has no concerning shortness of breath at rest. No PND, orthopnea or edema. No presyncope, syncope. She says will get some lightheadedness if she stands up quickly. She ambulates short distances with a walker. She is in a wheelchair today. Describes a recent episode where she was laying down and her right arm became numb. She also had numbness along the side of her face. It lasted a few minutes and then went away. She has not had any recurrent episodes like this. Her daughter is present. 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 Cervical cancer screening Generalized anxiety disorder Type 2 diabetes mellitus with hyperglycemia History of anal fissures Peripheral vascular disease Urinary incontinence Hypertension COPD (chronic obstructive pulmonary disease) Hypercholesterolemia Surgical History H/O total mastectomy of left breast (12/21/22) History of biopsy History of endometrial ablation Hx of tubal ligation History of tonsillectomy History of appendectomy History of cholecystectomy History of bladder surgery History of left knee replacement Family History Mother History of breast cancer Father Prostate CA Brother No problems noted. Brother No problems noted. Daughter No problems noted. Social History Household Members: Family Household Members Other:: Daughter Housing: House Are you a primary personal care aide to a significant other at home: Yes () Do you presently have visiting nurse or other home services: No Alcohol intake: current Alcohol intake frequency: holidays/special occasions only Comment: Fell 08/2022, leg weakness 1 glass on holidays Patient Tobacco Use Status: Current everyday Tobacco user Tobacco use type: Cigarette Cigarettes Per Day: 2 Years Smoked: 40, 1 pack a day e-Cigarette/Vaping Use: Never Used Second Hand Smoke Exposure: No service: No Current occupational status: disabled Cognitive needs: No Hearing needs: No Vision needs: Yes Female Reproductive History Menstrual Age of Menarche: 10 Review of Systems Const All systems reviewed & are unremarkable except as noted in HPI and below ENT Denies dizziness Card Denies chest pain, Denies chest pain at rest, Denies chest pain with activity, Reports rapid heart rate (palpitations), Denies pedal edema, Denies edema, Denies leg edema, Denies lightheadedness, Denies palpitations, Denies dyspnea, Denies dyspnea on exertion and Denies orthopnea Resp Denies cough, Denies dyspnea and Denies dyspnea on exertion GI Denies hematochezia and Denies change in stool character Musc Denies abnormal gait, Denies limited range of motion, Denies muscle cramps, Denies muscle weakness, Denies numbness, Denies radiating pain into limb, Denies stiffness and Denies tingling Neuro Denies Abnormal speech present, Denies abnormal gait, Denies dizziness, Denies numbness and Denies tingling Endo Denies palpitations Physical Exam Vital Signs: Last Vital Signs Pulse 96 12/20/24 13:55 BP 160/90 H 12/20/24 13:55 BMI result Body Mass Index 37.9 Const General: cooperative, comfortable, alert, awake and anxious Nutritional Appearance: obese Orientation/consciousness: patient oriented x3 Limitations: wheelchair Resp Effort & Inspection: normal respiratory effort Auscultation: no crackles, no wheezes and diminished lung sounds Cardio Jugular venous distension: no JVD Rate: tachycardic Rhythm: regular rhythm Heart sounds: S1 normal heart sound present, S2 normal heart sound present, no click, no gallops, no murmurs and no rubs GI Auscultation: normal bowel sounds Skin General skin exam: no rashes or lesions noted Neuro General: patient oriented x3 and no focal motor deficits Speech: No Abnormal speech present Extrem General: Yes no clubbing, cyanosis or edema Assessment & Plan Assessment & Plan (1) Palpitations: Code(s): R00.2 - Palpitations Category: Medical Plan: ER evaluation for heart palpitations last March. EKGs reviewed by Dr. Serrano. Some suggestive of sinus tachycardia while others were suggestive of atrial flutter. It responded to IV Cardizem. A 7 day Holter monitor was done on 06/20/2024 showing sinus rhythm, average 88 beats per minute, rare PACs. An echocardiogram was done on 06/20/2024 showing EF 55-60%, grade 1 diastolic dysfunction, right and left atrium is normal size. A pharmacological nuclear stress test was done on 06/21/2024 showing normal myocardial perfusion imaging, EF 43% with stress, 48% with rest. She not present for follow-up until today. Test results reviewed with her in detail. She does describe an episode recently where she had numbness in her right arm and face. Her daughter confirms that she did have a facial droop. It lasted a few minutes and fully resolved. This is concerning for possible TIA. She tells me she has a CT scan of the head scheduled. Will check a cardiac event monitor to evaluate for atrial fibrillation/flutter. Emergency care if ever needed for any neurological changes. Cardiology follow-up 2 months, sooner if needed. (2) Right sided weakness: Code(s): R53.1 - Weakness Category: Medical Plan: Brief as above (3) Hypertension: Code(s): I10 - Essential (primary) hypertension Category: Medical Plan: Elevated today 160/90. She tells me she did not take her medications yet this morning. The importance of daily medication use reviewed with her. She will go home and take her meds now. Plan recheck of her blood pressure at next visit. Plan Time spent on chart review, documentation, interview and assessment Orders: Orders ECG 30 day event monitor Today R00.2 - Palpitations Coding Level of Care Code Est Pt Level 4 (08680) Diagnoses Palpitations R00.2 Right sided weakness R53.1 Hypertension I10 Time Spent (min) 28
--- OUTSIDE RECORDS SUMMARY | 2024-12-20 16:47 | XMS_ITS | Clinical Summary ---
Author Organization [facility] Address [address] [place] [address] Care Team Providers Care Apple Packing Header Name Role Phone Unavailable Primary Care Provider Unavailabl e Source Comments PLEASE NOTE, if this patient is a minor, it may be UNLAWFUL to discuss sensitive information that is contained in these records (such as FAMILY PLANNING, MENTAL HEALTH or SUBSTANCE ABUSE) with the minor patient's parent or other person without the patient's specific authorization.[facility] Allergies Active Allergy Reactions Criticality Noted Date Comments Penicillins Other (See Comments) 01/28/2015 Medications albuterol sulfate hfa (PROVENTIL,VENT JOYA,PROAIR) 90 mcg/actuation inhalerIndicati ons:COPD (chronic obstructive pulmonary disease) ([facility]),Influ mg A Inhale 2 Puffs into the lungs every 4 (four) hours as needed for shortness of breath or wheezing. 1 Inhaler 3 5 Active traZODone (DESYREL) 50 mg tabletIndicatio ns:Insomnia,Dep ression Take 1 Tab by mouth nightly at bedtime. 30 Tab 0 5 Active aspirin 325 mg tabletIndicatio ns:HTN (hypertension), COPD (chronic obstructive pulmonary disease) ([facility]) Take 1 Tab by mouth once daily. 30 Tab 3 5 Active NIFEdipine (ADALAT CC) 60 mg 24 hr tabletIndicatio ns:HTN (hypertension) Take 1 Tab by mouth once daily. Take on an empty stomach. Swallow whole. Do not break, crush or chew. 30 Tab 3 5 Active predniSONE (DELTASONE) 10 mg tabletIndicatio ns:COPD (chronic obstructive pulmonary disease) ([facility]) Take 1 Tab by mouth once daily. 30 Tab 0 5 Active budesonide-form oterol (SYMBICORT) 80-4.5 mcg/actuation inhalerIndicati ons:COPD (chronic obstructive pulmonary disease) ([facility]) Inhale 2 Puffs into the lungs 2 (two) times daily. 1 Inhaler 3 5 Active albuterol (PROVENTIL) 2.5 mg /3 mL (0.083 %) nebulizer solutionIndicat ions:COPD (chronic obstructive pulmonary disease) ([facility]) Take 3 mL by nebulization every 6 (six) hours as needed for wheezing. 3 mL 3 5 Active PROAIR HFA 90 mcg/actuation inhaler 5 Active SYMBICORT 80-4.5 mcg/actuation inhaler 5 Active NIFEdipine (ADALAT CC) 60 mg 24 hr tablet 5 Active predniSONE (DELTASONE) 10 mg tablet 5 Active traZODone (DESYREL) 50 mg tablet 5 Active aclidinium bromide (TUDORZA PRESSAIR) 400 mcg/actuation aepbIndications :COPD (chronic obstructive pulmonary disease) ([facility]) Inhale 1 Inhaler into the lungs 2 (two) times daily. 1 Inhaler 6 5 Active clotrimazole-be tamethasone (LOTRISONE) 1-0.05 % lotionIndicatio ns:Rash Apply topically 2 (two) times daily. 30 mL 1 5 Active Active Problems Problem Noted Date Diagnosed Date Depression 01/28/2015 COPD (chronic obstructive pulmonary disease) ([facility]) 01/28/2015 Incontinence of urine in female 01/28/2015 HTN (hypertension) 01/28/2015 Influenza A 01/28/2015 Insomnia 01/28/2015 Rash 01/28/2015 Immunizations Name Administration Dates Next Due INFLUENZA, SEASONAL, INJECTABLE 01/23/2015 PNEUMOCOCCAL POLYSACCHARIDE PPV23 01/23/2015 Social History Tobacco Use Types Packs/Day Years Used Date Smoking Tobacco: Every Day Cigarettes Alcohol Use Standard Drinks/Week Comments No 0 (1 standard drink = 0.6 oz pur e alcohol) Comments No Sex and Gender Information Value Date Recorded Sex Assigned at Not on file Legal Sex Female 10:57 AM PDT Gender Identity Not on file Sexual Orientation Not on file Last Filed Vital Signs Vital Sign Reading Time Taken Comments Blood Pressure 162/91 01/28/2015 3:37 PM EDT Pulse 86 01/28/2015 3:37 PM EDT Temperature 36.3 ??C (97.4 ??F) 01/28/2015 3:37 PM ED T Respiratory Rate 17 01/28/2015 3:37 PM EDT Oxygen Saturation - - Inhaled Oxygen Concentration - - Weight 117 kg (258 lb) 01/28/2015 3:37 PM EDT Height 162.6 cm (5' 4 ) 01/28/2015 3:37 PM EDT Body Mass Index 44.29 01/28/2015 3:37 PM EDT Plan of Treatment Not on file [place]
--- OUTSIDE RECORDS SUMMARY | 2024-12-20 16:47 | XMS_ITS | Clinical Summary ---
Author Organization [address] [facility] Address [address] [place] [address] Phone Care Team Providers Care Dispensary Attendant Name Role Phone Concepción Patel MD Primary Care Provider [phone] Social History Tobacco Use Types Packs/Day Years Used Date Smoking Tobacco: Never Assessed Sex and Gender Information Value Date Recorded Sex Assigned at Not on file Gender Identity Not on file Sexual Orientation Not on file Plan of Treatment Upcoming Encounters Date Type Department Care Team ([facility] st Contact Info) Description 01/17/2025 1:15 PM EST Office Visit Orthopedic Surgery [place] [id number] [id number] Marcial Meehan, DPM [address] [address] Health Maintenance Due Date Last Done Comments Breast Cancer Screening 1961 DTaP,Tdap,and Td Vaccines (1 - Tdap) 02/06/1980 Cervical Cancer Screening: P ap Smear 1982 Zoster Vaccines (1 of 2) 2011 COVID-19 Vaccine ( - 2023-2 5 season) 2024 Influenza Vaccine (#1) 2024 Colorectal Cancer Screening: Colonoscopy 10/09/2024 Depression Screening 10/09/2024 HIV Screening 10/09/2024 Hepatitis C Screening 10/09/2024 Medicare Annual Wellness Visit 10/09/2024 Social Influencers of Health Screening 10/09/2024 RSV Immunization Patients 60 + Years Old (1 - 1-dose 75+ series) 02/06/2036 HIB Vaccines Aged Out No longer eligi ble based on patient's age to complete this topic HPV Vaccines Aged Out No longer eligi ble based on patient's age to complete this topic Hepatitis A Vaccines Aged Out No long er eligible based on patient's age to complete this topic Hepatitis B Vaccines Aged Out No long er eligible based on patient's age to complete this topic IPV Vaccines Aged Out No longer eligi ble based on patient's age to complete this topic MMR Vaccines Aged Out No longer eligi ble based on patient's age to complete this topic Meningococcal ACWY Vaccine Aged Out N o longer eligible based on patient's age to complete this topic Pneumococcal Vaccine: Pediat rics (0 to 5 Years) and At-Risk Patients (6 to 64 Years) Aged Out No longer eligible b ased on patient's age to complete this topic RSV Immunization Patients Un kiko 20 months Aged Out No longer eligible b ased on patient's age to complete this topic Varicella Vaccines Aged Out No longer eligible based on patient's age to complete this topic Care Teams Dispensary Attendant Relationship Specialty Start Date End Date Concepción Patel MD [address] [place] [address] [address] [facility] [place] [address] PCP - General Internal Medicine 10/09/24
== END 2024-12-20 14:36 | disposition home or self-care (01) ==
PROVIDERS: PCP Internal Medicine; Visit Provider Nurse Practitioner Family
DX: R00.2 Palpitations (principal); R53.1 Weakness; I10 Essential (primary) hypertension
CPT/HCPCS: 99214

== ENCOUNTER 2025-01-24 14:11 | Outpatient (AMB) | payer OTHER, SELFPAY ==
--- NOTE | 2025-01-24 14:30 | A.OFFVIS_ITS ---
Intake Visit Reasons: urinary incontinence Intake Note: New patient presents today for initial visit for Urology Medication:Solifenacin Blood Thinner:none Antibiotic Allergies: Penicillin PVR:0ml Allergies diclofenac [From Voltaren] Allergy (Severe, Verified 01/24/25 17:31) enlarged liver lisinopril [From Zestril] Allergy (Severe, Verified 01/24/25 17:31) Angioedema omeprazole Allergy (Intermediate, Verified 01/24/25 17:31) elevated blood pressure Penicillins [PENICILLINS] Allergy (Intermediate, Verified 01/24/25 17:31) Facial Swelling oxybutynin [Oxybutynin] Adverse Reaction (Severe, Verified 01/24/25 17:31) body twitching metformin Adverse Reaction (Intermediate, Verified 01/24/25 17:31) Diarrhea gabapentin Adverse Reaction (Verified 01/24/25 17:31) Hypertension duloxetine Adverse Reaction (Intermediate, Uncoded 01/24/25 17:31) tachycardia Medication List - Last Reconciled 01/24/25 by MARY Zuniga acetaminophen 325 mg PO QID PRN albuterol sulfate 90 mcg/actuation 1 puff inhalation QID albuterol sulfate 2.5 mg (3 mL) inhalation Q4-6H PRN alcohol swabs (Alcohol Prep Pads) topically tests 4 X/day; amlodipine 5 mg PO BID 30 days aspirin (Adult Aspirin Regimen) 81 mg PO DAILY 90 days atorvastatin 40 mg PO BEDTIME [baby wipes As directed] blood sugar diagnostic (FreeStyle Lite Strips) check BS 3X/DAY blood-glucose meter (FreeStyle Lite Meter kit) As directed cholecalciferol (vitamin D3) 50 mcg PO DAILY clonidine HCl 0.1 mg PO BEDTIME clotrimazole 1% 1 appl topical BID 4 weeks collagenase clostridium histo. (Santyl) 1 appl topical DAILY compress.stocking,knee,reg,lrg As directed 20-30 mm HG cyanocobalamin (vitamin B-12) 1,000 mcg PO DAILY ferrous sulfate (Iron (ferrous sulfate)) 325 mg PO FR@0900 fluticasone propionate 50 mcg/actuation (Flonase Allergy Relief) 1 spray intranasal BID glucagon 3 mg/actuation (Baqsimi) 3 mg intranasal ONCE PRN 30 days MDD 6 mg [Incontinence BED PADS WASHABLE As directed] insulin glargine (Lantus Solostar U-100 Insulin) 30 units (0.3 mL) subcut DAILY lancets (FreeStyle Lancets) USE DIRECTED THREE TIMES A DAY (BULK) letrozole 2.5 mg PO DAILY [matectomy BRA As directed] mirabegron ER (Myrbetriq) 25 mg PO DAILY 30 days Novolog FlexPen U-100 Insulin (insulin aspart U-100) 20 units (0.2 mL) subcut TID NS oxycodone-acetaminophen 5-325 mg (Percocet) 1 tab PO Q8H PRN paroxetine HCl 20 mg PO DAILY 90 days pen needle, diabetic (BD Ultra-Fine Micro Pen Needle) as directed with insulin [PULL UPS medium As directed] ropinirole 1 mg PO BID sennosides (Senokot) 8.6 mg PO BID solifenacin (Vesicare) 5 mg PO DAILY triamcinolone acetonide 0.1% 1 appl topical DAILY umeclidinium-vilanterol 62.5-25 mcg/actuation (Anoro Ellipta) 1 inh inhalation DAILY zinc gluconate 50 mg PO DAILY HPI Comments Details: Sarah is a 64 year year old female patient of Dr. Reyes was accompanied by her daughter at today's office visit. She has a past medical history of diabetes, arthritis, nephrolithiasis, invasive ductal carcinoma of left breast status post left-sided mastectomy 12/13, anxiety, urinary incontinence, PVD, hypertension, COPD, peripheral neuropathy, nicotine dependence, and hypercholesteremia. She presents to the office today as a new patient for her longstanding history of urinary issues. In discussion with the patient today she reports noting urinary issues the majority of her life. She reports previously following up with a urologist and has had InterStim in place however is unsure as to how long ago this was. She reports being on VESIcare for many years and does find this helpful however continues to have episodes of mixed urinary incontinence. Unable to provide urine for urinalysis today however PVR 0 mL. She reports utilizing 3- 6 adult diapers per day. We discussed further treatment options and risks and benefits of these treatment options. We discussed importance of limiting/quitting nicotine dependence for overall health and well-being. We discussed obtaining retroperitoneal ultrasound for further assessment evaluation. She is inquiring either revision of her Interstim lead or battery change. In review of patient's chart it appears patient with [employer]tronic InterStim that [place] [address] Govea. We discussed potential need for a whole new device given how long this has been. She otherwise offers no other issues or concerns at this time. [facility] Medical History Multinodular goiter Peripheral neuropathy History of short term memory loss Port-A-Cath in place Smoker Family history of prostate cancer in father Leg swelling Shortness of breath Effusion of left knee Weakness Fall Thyroid nodule Adrenal adenoma Vision changes Diabetes History of palpitations History of unsteady gait Low back pain Arthritis Mild heartburn Hx of renal calculi Vaginal yeast infection Encounter to discuss test results 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 Cervical cancer screening Generalized anxiety disorder Type 2 diabetes mellitus with hyperglycemia History of anal fissures Peripheral vascular disease Urinary incontinence Hypertension COPD (chronic obstructive pulmonary disease) Hypercholesterolemia Surgical History H/O total mastectomy of left breast (12/21/22) History of biopsy History of endometrial ablation Hx of tubal ligation History of tonsillectomy History of appendectomy History of cholecystectomy History of bladder surgery History of left knee replacement Family History Mother History of breast cancer Father Prostate CA Brother No problems noted. Brother No problems noted. Daughter No problems noted. Social History Household Members: Family Household Members Other:: Daughter Housing: House Are you a primary health care coordinator to a significant other at home: Yes () Do you presently have visiting nurse or other home services: No Alcohol intake: current Alcohol intake frequency: holidays/special occasions only Comment: Fell 08/2022, leg weakness 1 glass on holidays Patient Tobacco Use Status: Current everyday Tobacco user Tobacco use type: Cigarette Cigarettes Per Day: 2 Years Smoked: 40, 1 pack a day e-Cigarette/Vaping Use: Never Used Second Hand Smoke Exposure: No service: No Current occupational status: disabled Cognitive needs: No Hearing needs: No Vision needs: Yes Female Reproductive History Menstrual Age of Menarche: 10 Review of Systems Eyes Reports no additional complaints ENT Reports no additional complaints Card Reports as per [facility] Resp Reports as per [facility] GI Reports as per [facility] Reports as per [facility] Musc Reports as per [facility] Neuro Reports no additional complaints Psych Reports as per [facility] Endo Reports as per [facility] Rich/Lymph Reports as per [facility] Aller/Immun Reports as per [facility] Physical Exam Const General: cooperative, comfortable, no acute distress, well developed, alert and poor hygiene Nutritional Appearance: overweight Orientation/consciousness: patient oriented x3 Limitations: wheelchair HEENT Head: Yes normal to inspection Eyes General: appearance normal, both eyes and all related structures Neck Neck: Yes normal visual inspection Chest Chest palpation & inspection: normal inspection of the chest Resp Effort & Inspection: normal respiratory effort Cardio Rate: regular rate GI Inspection: Yes normal to inspection General: Yes no CVA tenderness Back/Spine/Pelvis Back: no CVA tenderness Skin General skin exam: no rashes or lesions noted Neuro General: patient oriented x3 Extrem General: Yes normal to inspection Psych Speech and movement: Clear speech present Affect: normal affect Attitude: cooperative Thought content: Normal thought content present Insight: Fair insight present (Psych) Judgement: Fair judgement present (Psych) Office Procedures Post Void Residual Post Residual Void Post Void Residual (PVR): 0 [id number] Void Residual by ultrasound Assessment & Plan Assessment & Plan (1) Urinary incontinence, mixed: Code(s): N39.46 - Mixed incontinence Category: Medical Plan Unable to obtain urine for urinalysis PVR 0 mL. Continue VESIcare Start Myrbetriq as discussed and prescribed. We discussed potential causes of mixed urinary incontinence as well as further treatment options and risks and benefits of these treatment options. Will obtain retroperitoneal ultrasound for further assessment evaluation. We discussed at length the importance of limiting/quitting nicotine dependence for overall health and well-being and affects of this on the bladder. We discussed importance of timed/scheduled voiding given decreased mobility. Patient would like follow-up to discuss new InterStim as InterStim she has is [employer] device since 2010. Follow-up in 1-3 months with imaging to be completed prior; or sooner with any issues, concerns, and or questions. Orders: Orders AMB Post Void Residual by ultrasound 01/24/25 R32 - Unspecified urinary incontinence US retroperitoneal comp 01/25/25 N39.46 - Mixed incontinence AMB Urinalysis Automated 01/24/25 Z13.9 - Encounter for screening, unspecified Medications: New mirabegron ER (Myrbetriq) 25 mg PO DAILY 30 tabs 3RF 30 days N30.10 - Interstitial cystitis (chronic) without hematuria, N32.81 - Overactive bladder, R35.1 - Nocturia, R39.15 - Urgency of urination Patient Instructions: The patient had an opportunity to ask questions regarding the treatment plan. A ll questions were answered. Physical exam, labs, and imaging were discussed and reviewed in detail. As well as risks, benefits, and discussion of treatment choices. No major barriers to understanding were identified. The patient expressed understanding and agreement with the above treatment plan. The patient was made aware they should contact our office by phone for worsening of their current condition, the appearance of new symptoms, or with any questions or concerns. Compliance is encouraged with any medications and follow up testing that is ordered. It is a privilege to be allowed the opportunity to participate in? your urological care.? Again, if you have any questions or concerns If you have any questions or concerns please do not hesitate to contact me. The office is [phone]. This note is constructed using voice recognition software. While every effort has been made to ensure accuracy card fixer errors may have been included. Yours sincerely, CHRISTINA Zuniga-JESUS MANUEL Coding Level of Care Code New Pt Level 4 (11810) Diagnoses Urinary incontinence, mixed N39.46 CPT Codes Post Residual Void - PVR CPT Code: 56961-Aiiv Void Residual by ultrasound ([id number])
--- OUTSIDE RECORDS SUMMARY | 2025-01-24 17:25 | XMS_ITS ---
Author Organization [facility] Address [address] [place] [address] Care Team Providers Care [employer] Name Role Phone Po Concepción MADDEN Primary Care Provider Unavailvandana e Ravindra Putnam Unavailable [phone] Allergies Allergen (clinical drug ingredient) Drug/Non Drug Allergy documented on EMR Reaction Allergy Type Onset Date Status Penicillin facial swelling Drug Allergy Active oxybutynin OxyBUTYnin body twitching Drug Allergy Active metformin metFORMIN didarrhea Drug Allergy Active diclofenac Diclofenac enlarged liver Drug Allergy Active omeprazole Omeprazole elevated bl pressure Drug Allergy Active lisinopril Lisinopril angioedema Drug Allergy Acti ve gabapentin Gabapentin hypertension Drug Allergy Ac tive duloxetine DULoxetine tachycardia Drug Allergy Act pily REASON FOR VISIT Patient presents today for a COLON SCREENING Medications Medication SIG (Take, Route, Frequency, Duration) Notes Start Date End Date Status amLODIPine Besylate 5 MG TAKE 1 TABLET BY MOUTH TWICE DAILY Oral for 30 Active Omeprazole 20 MG Oral Act pily Verapamil HCl 120 MG TAKE 1 TABLET BY MOUTH TWICE DAILY Oral for 30 R002,Unavaila ble Active DULoxetine HCl 20 MG Oral for 30 Active Senna 8.6 MG Oral for 30 Activ e Clotrimazole Anti-Fungal 1 % External for 30 Active Vitamin D3 50 MCG (1999) Oral for 28 Active Atorvastatin Calcium 40 MG Oral for 28 Active Aspirin Low Dose 81 MG Oral for 28 Not-Taking oxyCODONE-Acetaminoph en 5-325 MG Oral for 16 Active NovoLOG FlexPen 100 UNIT/ML Subcutaneous for 25 Active cloNIDine HCl 0.1 MG Oral for 28 Active Lantus SoloStar 100 UNIT/ML Subcutaneous for 30 Active rOPINIRole HCl 1 MG Oral for 28 Active PARoxetine HCl 20 MG Oral for 28 Active Anoro Ellipta 62.5-25 MCG/ACT Inhalation for 30 Active Solifenacin Succinate 5 MG Oral for 28 Active Albuterol Sulfate HFA 108 (90 Base) MCG/ACT Inhalation for 50 A ctive Letrozole 2.5 MG Oral for 28 A ctive Social History Tobacco Use: Social History Observation Description Date Details (start date - stop date) Current Smoker NA - NA Tobacco Use/Smoking Question Answer Notes Patient is a current smoker How often do you smoke cigarettes? every day Alcohol Screen Question Answer Notes Did you have a drink containing alcohol in the p ast year? No Points 0 Interpretation Negative Section Notes: Smokes 1ppd, no significant EtOH Problems Problem Type SNOMED Code ICD Code Onset Dates Problem Status W/U Status Risk Notes Problem Colon cancer screening (675623299) Colon cancer screening (Z12.11) Active confirmed Problem Gastroesophageal reflux disease (disorder) (040092593) Chronic GERD (K21.9) Active confirmed Vital Signs Blood pressure systolic 00 mm Hg 12/21/19 25 Blood pressure diastolic 00 mm Hg 025 Height 5 ft 4 in in 12/21/2024 Weight 223 lbs 12/21/2024 BMI 38.27 kg/m2 12/21/2024 Encounters Encounter Location Date Provider Diagnosis [facility] [address] [place] [id number] 12/21/2024 Ravindra Putnam Colon cancer screening Z12.11 and Chronic GERD K21.9 Assessments Encounter Date Diagnosis (ICD Code) Assessment Notes Treatment Notes Treatment Clinical Notes Section Notes 12/21/2024 Colon cancer screening (ICD-10 - Z12.11) Speak with Dr. Pryor to have him give you instructions regarding adjustment of your Insulins for the day before and the day of the colonoscopy. Do not take aspirin for three days before the colonoscopy Overall, Thao is not having any particularly new nor worrisome GI complaints. While she does have some comorbidities, she is relatively young, her last colonoscopy was well over 10 years ago, and she is eager to undergo a screening colonoscopy as a colorectal cancer preventive. 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 As such, she will be scheduled for a screening colonoscopy. We did review the rationale for this in regard to colorectal cancer prevention and/or early detection. Full consent was obtained for this, including risks of bleeding and perforation. The procedure will be done with monitored anesthesia care. She will also be scheduled for a PAT appointment given her comorbidities. She was instructed to speak with her brand engineer regarding instructions in regard to adjusting her insulin regimen for the day before and the day of the procedure. She reports that she presently is not using any aspirin but if she does start some I advised her that she would need to stop it for about 2 or 3 days before the procedure. Of note, her daughter reports that she will be able to stay with her to help her the evening before the procedure with the bowel prep. In regard to the recent upper GI series it does not show any particularly worrisome findings. She does take a daily omeprazole with good relief of heartburn and does not seem to be having any worrisome symptoms such as dysphagia at this time. Therefore, given no definitive reason to have her undergo an upper endoscopy, I advised her that it would be best in my opinion to avoid that given her issues with lung disease and ongoing smoking with a chronic cough. Those factors could increase the risk of anesthesia in her during an upper endoscopy and therefore we shall hold off on that at this time. Thao and Maurice were both comfortable with this plan. Thank you again for allowing me to participate in Thao's care. I shall continue to keep you advised of her progress. 12/21/2024 Chronic GERD (ICD-10 - K21.9) Overall, Thao is not having any particularly new nor worrisome GI complaints. While she does have some comorbidities, she is relatively young, her last colonoscopy was well over 10 years ago, and she is eager to undergo a screening colonoscopy as a colorectal cancer preventive. 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 As such, she will be scheduled for a screening colonoscopy. We did review the rationale for this in regard to colorectal cancer prevention and/or early detection. Full consent was obtained for this, including risks of bleeding and perforation. The procedure will be done with monitored anesthesia care. She will also be scheduled for a PAT appointment given her comorbidities. She was instructed to speak with her brand engineer regarding instructions in regard to adjusting her insulin regimen for the day before and the day of the procedure. She reports that she presently is not using any aspirin but if she does start some I advised her that she would need to stop it for about 2 or 3 days before the procedure. Of note, her daughter reports that she will be able to stay with her to help her the evening before the procedure with the bowel prep. In regard to the recent upper GI series it does not show any particularly worrisome findings. She does take a daily omeprazole with good relief of heartburn and does not seem to be having any worrisome symptoms such as dysphagia at this time. Therefore, given no definitive reason to have her undergo an upper endoscopy, I advised her that it would be best in my opinion to avoid that given her issues with lung disease and ongoing smoking with a chronic cough. Those factors could increase the risk of anesthesia in her during an upper endoscopy and therefore we shall hold off on that at this time. Thao and Maurice were both comfortable with this plan. Thank you again for allowing me to participate in Thao's care. I shall continue to keep you advised of her progress. Plan Of Treatment Medication Medication Name Sig Start Date Stop Date Notes Omeprazole 20 MG Oral Treatment Notes Assessment Notes Colon cancer screening Speak with Dr. Pryor to have him give you instructions regarding adjustment of your Insulins for the day before and the day of the colonoscopy. Do not take aspirin for three days before the colonoscopy Future Test Test Name Order Date COLONOSCOPY 12/21/2024 Next Appt Details Follow Up: prn, Reason: Provider Name:Ravindra Putnam , 04/10/2025 07:30:00 AM, [address] [place] [address], [phone], Progress Notes * LATESHA, THAO ADOB: [birth year] (64 yo F)Acc No.[id number]:12/21/2024 Progress Notes Patient:?LATESHA, THAO Dragan Provider:?Ravindra Putnam MD :1960???Age:64 Y???Sex:Female D ate:12/21/2024 Address:[address] [place], [place] [id number] Pcp:Concepción Reyes MD Subjective: * Chief Complaints: * ???Patient presents today fo r a COLON SCREENING * HPI: ???incontinence:? I saw Thao in consultation today in regard to further evaluation of her gastroesophageal reflux and discussion of colorectal cancer screening. She was accompanied by her daughter, Maurice. ?As you know, Thao is a 64-year-old female with multiple medical problems but presently feels well from a GI standpoint. She describes that she had a negative colonoscopy with me about 20 years ago. She reports that has been her only colonoscopy that she has ever had. She reports that her bowel movements are somewhat sluggish with a bowel movement about every third day. However, there's been no signs of hematochezia nor melena. She enjoys a good appetite. She does take daily omeprazole with good relief of heartburn. She denies any dysphagia. She denies abdominal pain, jaundice, nor unintentional weight loss. She denies any known family history of colon cancer. ?She did have an upper GI series in September 2024 for evaluation of some coughing and difficulty swallowing pills. This describes that the esophagus appeared normal without any sign of stricture nor obstruction. There was no evidence of any suspicious findings to suggest a neoplasm. There was evidence of some mild gastritis. Laboratories earlier this month revealed normal chemistries and renal function and normal LFT's. She had a normal CBC in September of 2024. * ROS:?General/Constitutional:?Change in appetite?denies.?Chills?denies.?Fatigue?denies.?Ophthalmologic:?Comments?all negative.?ENT:?Comments?all negative.?Respiratory:?hemoptysis?denies.?Cough?admits.?Cardiovascular:?Chest pain?denies.?Orthopnea?denies.?Gastrointestinal:?Comments?See HPI for details.?Genitourinary:?Hematuria?denies.?Dysuria?denies.?Musculoskeletal:?Painful joints?denies.?Weakness?Weakness in her left leg.?Skin:?Itching?denies.?Rash?denies.?Neurologic:?Headache?denies.?Seizures?denies.?Psychiatric:?Comments?all negative.? * Medical History:? * Surgical History:?Mastectomy of left breast 2022-Dr. Teran Endometrial ablation Tubal ligation Tonsillectomy Appendectomy Cholecystectomy Bladder surgery Left knee replacement 2006 * Hospitalization/Major Diagno stic Procedure:?No Hospitalization History. * Family History:?Father: dece ased, hx of prostate cancer.?Mother: alive, hx of breast cancer.? no known hx of colon cancer polype or liver ds. * Social History:?Tobacco Use:?Tobacco Use/Smoking?Patient is a?current smoker,?How often do you smoke cigarettes??every day.?Drugs/Alcohol:?Alcohol Screen?Did you have a drink containing alcohol in the past year??No,?Points?0,?Interpretation?Negative.?Miscellaneous:?Marital status: . Occupation: retired. ???Smokes 1ppd, no significant EtOH. * Medications:?TakingLetrozole 2.5 MG Tablet Oral Albuterol Sulfate HFA 108 (90 Base) MCG/ACT Aerosol Solution Inhalation Solifenacin Succinate 5 MG Tablet Oral Anoro Ellipta 62.5-25 MCG/ACT Aerosol Powder Breath Activated Inhalation NovoLOG FlexPen 100 UNIT/ML Solution Pen-injector Subcutaneous PARoxetine HCl 20 MG Tablet Oral rOPINIRole HCl 1 MG Tablet Oral Lantus SoloStar 100 UNIT/ML Solution Pen- injector Subcutaneous cloNIDine HCl 0.1 MG Tablet Oral Atorvastatin Calcium 40 MG Tablet Oral oxyCODONE-Acetaminophen 5-325 MG Tablet Oral Vitamin D3 50 MCG (2000 UT) Capsule Oral Clotrimazole Anti-Fungal 1 % Cream External Omeprazole 20 MG Capsule Delayed Release Oral amLODIPine Besylate 5 MG Tablet TAKE 1 TABLET BY MOUTH TWICE DAILY Oral Senna 8.6 MG Tablet Oral DULoxetine HCl 20 MG Capsule Delayed Release Particles Oral Verapamil HCl 120 MG Tablet TAKE 1 TABLET BY MOUTH TWICE DAILY Oral , Notes: R002,UnavailableTaking Letrozole 2.5 MG Tablet Oral Taking Albuterol Sulfate HFA 108 (90 Base) MCG/ACT Aerosol Solution Inhalation Taking Solifenacin Succinate 5 MG Tablet Oral Taking Anoro Ellipta 62.5-25 MCG/ACT Aerosol Powder Breath Activated Inhalation Taking NovoLOG FlexPen 100 UNIT/ML Solution Pen-injector Subcutaneous Taking PARoxetine HCl 20 MG Tablet Oral Taking rOPINIRole HCl 1 MG Tablet Oral Taking Lantus SoloStar 100 UNIT/ML Solution Pen-injector Subcutaneous Taking cloNIDine HCl 0.1 MG Tablet Oral Taking Atorvastatin Calcium 40 MG Tablet Oral Taking oxyCODONE-Acetaminophen 5-325 MG Tablet Oral Taking Vitamin D3 50 MCG (2000 UT) Capsule Oral Taking Clotrimazole Anti-Fungal 1 % Cream External Taking Omeprazole 20 MG Capsule Delayed Release Oral Taking amLODIPine Besylate 5 MG Tablet TAKE 1 TABLET BY MOUTH TWICE DAILY Oral Taking Senna 8.6 MG Tablet Oral Taking DULoxetine HCl 20 MG Capsule Delayed Release Particles Oral Taking Verapamil HCl 120 MG Tablet TAKE 1 TABLET BY MOUTH TWICE DAILY Oral , Notes: R002,UnavailableNot-Taking/PRNAspirin Low Dose 81 MG Tablet Delayed Release Oral Medication List reviewed and reconciled with the patientNot-Taking/PRN Aspirin Low Dose 81 MG Tablet Delayed Release Oral Medication List reviewed and reconciled with the patient * Allergies:?Diclofenac: enlar ged liverLisinopril: angioedemaOmeprazole: elevated bl pressurePenicillin: facial swellingOxyBUTYnin: body twitchingmetFORMIN: didarrheaGabapentin: hypertensionDULoxetine: tachycardiayes[Allergies Verified] Objective: * Vitals:?Wt: 223 lbs, Ht: 5 f t 4 in, BMI:38.27 Index, BP: 00/00 mm Hg. * Examination: ???General Examination: ?GENERAL APPEARANCE:?pleasant, alert, well nourished, well developed, in no acute distress--she is sitting in a wheelchair.?EYES:?sclera non-icteric.?ORAL CAVITY:?mucosa moist.?NECK/THYROID:?no cervical lymphadenopathy, neck supple.?SKIN:?nonjaundiced, no spider angiomata.?HEART:?S1, S2 normal.?LUNGS:?clear to auscultation bilaterally.?ABDOMEN:?normal bowel sounds, no guarding or rigidity, no guarding or rigidity, no masses palpable, soft, nontender, nondistended.?EXTREMITIES:?no edema.?NEUROLOGIC:?alert and oriented.? Assessment: * Assessment: 1.?Chronic GERD - K21.9 ([facility])?2.?Colon cancer screening - Z12.11? Overall, Thao is not havin g any particularly new nor worrisome GI complaints. While she does have some comorbidities, she is relatively young, her last colonoscopy was well over 10 years ago, and she is eager to undergo a screening colonoscopy as a colorectal cancer preventive. 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 As such, she will be scheduled for a screening colonoscopy. We did review the rationale for this in regard to colorectal cancer prevention and/or early detection. Full consent was obtained for this, including risks of bleeding and perforation. The procedure will be done with monitored anesthesia care. She will also be scheduled for a PAT appointment given her comorbidities. She was instructed to speak with her brand engineer regarding instructions in regard to adjusting her insulin regimen for the day before and the day of the procedure. She reports that she presently is not using any aspirin but if she does start some I advised her that she would need to stop it for about 2 or 3 days before the procedure. Of note, her daughter reports that she will be able to stay with her to help her the evening before the procedure with the bowel prep. In regard to the recent upper GI series it does not show any particularly worrisome findings. She does take a daily omeprazole with good relief of heartburn and does not seem to be having any worrisome symptoms such as dysphagia at this time. Therefore, given no definitive reason to have her undergo an upper endoscopy, I advised her that it would be best in my opinion to avoid that given her issues with lung disease and ongoing smoking with a chronic cough. Those factors could increase the risk of anesthesia in her during an upper endoscopy and therefore we shall hold off on that at this time. Thao and Maurice were both comfortable with this plan. Thank you again for allowing me to participate in Thao's care. I shall continue to keep you advised of her progress. Plan: * Treatment: Notes: Speak with Dr. Pryor to have him give you instructions regarding adjustment of your Insulins for the day before and the day of the colonoscopy. Do not take aspirin for three days before the colonoscopy??2.?Others? Continue Omeprazole Capsule Delayed Release, 20 MG, Oral.?? * Procedure Codes:?3017F COLOR ECTAL CA SCREEN DOC [id number] Pt scrn tbco and id as [id number] BP SCR NOT PRFRM REC REASON NOS * Preventive Medicine:? ??Counseling:?Care goal follow-up plan:?Above Normal BMI Follow-up?Giving encouragement to exercise,?BMI management provided?Yes.? ??Urinary Incontinence:?Urinary Incontinence?Assessment:?Present,?Plan of care documented:?Yes,?Type of plan of care:?Lifestyle interventions.? * Follow Up:?prn * * Sign off status: Completed true * Provider:?Ravindra Putnam MD Date:? 025 Generated for Anabell jovel/Rosalee/Lisa on:?01/24/2025 05:25 PM EST History and Physical Notes * HPI (History of Present Illness) Category Sub-Category Detail Notes Category Not es incontinence I saw Thao in consultation today in regard to further evaluation of her gastroesophageal reflux and discussion of colorectal cancer screening. She was accompanied by her daughter, Maurice. As you know, Thao is a 64-year-old female with multiple medical problems but presently feels well from a GI standpoint. She describes that she had a negative colonoscopy with me about 20 years ago. She reports that has been her only colonoscopy that she has ever had. She reports that her bowel movements are somewhat sluggish with a bowel movement about every third day. However, there's been no signs of hematochezia nor melena. She enjoys a good appetite. She does take daily omeprazole with good relief of heartburn. She denies any dysphagia. She denies abdominal pain, jaundice, nor unintentional weight loss. She denies any known family history of colon cancer. She did have an upper GI series in September 2024 for evaluation of some coughing and difficulty swallowing pills. This describes that the esophagus appeared normal without any sign of stricture nor obstruction. There was no evidence of any suspicious findings to suggest a neoplasm. There was evidence of some mild gastritis. Laboratories earlier this month revealed normal chemistries and renal function and normal LFT's. She had a normal CBC in September of 2024. Examination Category Sub-Category Detail Notes Category Not es General Examination GENERAL APPEARANCE: pleasant , alert, well nourished, well developed, in no acute distress--she is sitting in a wheelchair HEAD: EYES: sclera non-icteric EARS: NOSE: THROAT: NECK/THYROID: no cervical lymphade nopathy, neck supple HEART: S1, S2 normal CHEST: LUNGS: clear to auscultatio n bilaterally ABDOMEN: normal bowel sounds, no guarding or rigidity, no guarding or rigidity, no masses palpable, soft, nontender, nondistended NEUROLOGIC: alert and oriented SKIN: nonjaundiced, no spi kiko angiomata EXTREMITIES: no edema PERIPHERAL PULSES: BACK: BREASTS: MUSCULOSKELETAL: MALE GENITOURINARY: LYMPH NODES: RECTAL EXAM: FEMALE GENITOURINARY: ORAL CAVITY: mucosa moist
--- OUTSIDE RECORDS SUMMARY | 2025-01-24 17:25 | XMS_ITS | Clinical Summary ---
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 1 Inhaler 3 5 Active traZODone (DESYREL) 50 mg tabletIndicatio ns:Insomnia,Dep ression Take 1 Tab by mouth nightly at bedtime. 30 Tab 0 5 Active aspirin 325 mg tabletIndicatio ns:HTN (hypertension), COPD (chronic obstructive pulmonary disease) ([facility]) Take 1 Tab by mouth once daily. 30 Tab 3 5 Active NIFEdipine (ADALAT CC) 60 mg 24 hr tabletIndicatio ns:HTN (hypertension) Take 1 Tab by mouth once daily. Take on an empty stomach. Swallow whole. Do not break, crush or chew. 30 Tab 3 5 Active predniSONE (DELTASONE) 10 mg tabletIndicatio ns:COPD (chronic obstructive pulmonary disease) ([facility]) Take 1 Tab by mouth once daily. 30 Tab 0 5 Active budesonide-form oterol (SYMBICORT) 80-4.5 mcg/actuation inhalerIndicati ons:COPD (chronic obstructive pulmonary disease) ([facility]) Inhale 2 Puffs into the lungs 2 (two) times daily. 1 Inhaler 3 5 Active albuterol (PROVENTIL) 2.5 mg /3 mL (0.083 %) nebulizer solutionIndicat ions:COPD (chronic obstructive pulmonary disease) ([facility]) Take 3 mL by nebulization every [...] mcg/actuation aepbIndications :COPD (chronic obstructive pulmonary disease) ([facility]) Inhale 1 Inhaler into the lungs 2 (two) times daily. 1 Inhaler 6 5 Active clotrimazole-be tamethasone (LOTRISONE) 1-0.05 % lotionIndicatio ns:Rash Apply topically 2 (two) times daily. 30 mL 1 5 Active Active Problems Problem Noted Date Diagnosed Date Depression 01/28/2015 COPD (chronic obstructive pulmonary disease) ([facility]) 01/28/2015 Incontinence of urine in female 01/28/2015 [...] Plan of Treatment Not on file Insurance [place]
--- OUTSIDE RECORDS SUMMARY | 2025-01-24 17:25 | XMS_ITS | Patient Health Record ---
Author Organization [facility] Address [address] [place] [address] Care Team Providers Care Tax Accounting Manager Name Role Phone Po Concepción MADDEN Primary Care Provider Ravindra Arora [phone] Allergies Allergen (clinical drug ingredient) Drug/Non Drug [...] duloxetine DULoxetine tachycardia Drug Allergy Act pily Reason For Referral No Information Medications Medication SIG (Take, Route, Frequency, Duration) Notes Start Date End Date Status NovoLOG FlexPen 100 UNIT/ML Subcutaneous for 25 Active amLODIPine Besylate 5 MG TAKE 1 TABLET BY MOUTH TWICE DAILY Oral for 30 Active Anoro Ellipta 62.5-25 MCG/ACT Inhalation for 30 Active Solifenacin Succinate 5 MG Oral for 28 Active Clotrimazole Anti-Fungal 1 % External for 30 Active Albuterol Sulfate HFA 108 (90 Base) MCG/ACT Inhalation for 50 A ctive Vitamin D3 50 MCG (2000 UT) Oral for 28 Active Omeprazole 20 MG Oral Act pily cloNIDine HCl 0.1 MG Oral for 28 Active Lantus SoloStar 100 UNIT/ML Subcutaneous for 30 Active Verapamil HCl 120 MG TAKE 1 TABLET BY MOUTH TWICE DAILY Oral for 30 R002,Unavaila ble Active rOPINIRole HCl 1 MG Oral for 28 Active DULoxetine HCl 20 MG Oral for 30 Active PARoxetine HCl 20 MG Oral for 28 Active Senna 8.6 MG Oral for 30 Activ e Letrozole 2.5 MG Oral for 28 A ctive Aspirin Low Dose 81 MG Oral for 28 Not-Taking oxyCODONE-Acetaminoph en 5-325 MG Oral for 16 Active Atorvastatin Calcium 40 MG Oral for 28 Active Social History Tobacco Use: Social History Observation [...] Status Risk Notes Problem Colon cancer screening (834882539) Colon cancer screening (Z12.11) Active confirmed Problem Gastroesophageal reflux disease (disorder) (898053449) Chronic GERD (K21.9) Active confirmed Vital Signs Blood pressure diastolic 00 mm Hg 12/21/2024 Height 5 ft 4 in in 12/21/2024 Blood pressure systolic 00 mm Hg 12/21/2024 Weight 223 lbs 12/21/2024 BMI 38.27 kg/m2 12/21/2024 Encounters Encounter Location Date Provider Diagnosis [facility] [address] [place] [phone] 12/21/2024 Ravindra Putnam Colon cancer screening Z12.11 and Chronic GERD K21.9 [facility] [address] [place] [phone] 12/24/2024 Ravindra Putnam Assessments Encounter Date Diagnosis (ICD Code) Assessment [...] She was instructed to speak with her aerospace assembler regarding instructions in regard to adjusting her [...] She was instructed to speak with her aerospace assembler regarding instructions in regard to adjusting her [...] advised of her progress. Plan Of Treatment Future Test Test Name Order Date COLONOSCOPY 12/21/2024 Next Appt Details Provider Name:Ravindra Putnam , 04/10/2025 07:30:00 AM, [address] [place] [address] , [place], [place], [phone], Insurance Providers Payer Name Payer Address Payer Phone Subscriber Number Group Number Insured Name Patient Relationship to Insured Coverage Start Date Coverage End Date [facility] [address] Attn Claims ZEUS [place] [id number] THAO CHARLTON Self - patient is the insured Medical (General) History Medical History History ICD Code Thyroid nodule IDDM Peripheral vascular disease Urinary incontinence COPD Anxiety disorder Hypertension Renal calculi TIA Left breast cancer 03/2021 with chemo and surgery-Dr. Mitchell Reports a negative colonscopy in approx 2004 Denies [place],CVA,renal disease Neuropathy GERD Hyperlipidemia Surgical History Surgery Date(Month/Year) Mastectomy of left breast 2022-Dr. Roxann andersen Endometrial ablation Tubal ligation Tonsillectomy Appendectomy Cholecystectomy Bladder surgery Left knee replacement 2006
--- OUTSIDE RECORDS SUMMARY | 2025-01-24 17:25 | XMS_ITS ---
Author Organization [facility] Address [address] [place] [address] Care Team Providers Care Shrink Pit Operator Name Role Phone Po Concepción MADDEN Primary Care Provider Ravindra Arora [phone] REASON FOR VISIT appt PAT made Encounters Encounter Location Date Provider Diagnosis [facility] [address] [place] [address] 12/24/2024 Ravindra Putnam Plan Of Treatment Next Appt Details Provider Name:Ravindra Putnam , 04/10/2025 07:30:00 AM, [address] [place] [address] , [place], [place], [phone], Progress Notes * THAO CHARLTON ADOB: [birth year] (64 yo F)Acc No.[id number]:12/24/2024 Patient:?THAO CHARLTON :1960???Age:64 Y???Sex:Female [address] [place] [address] * true * Date:? Generated for Anui med/Rosalee/eTransmitting on:?01/24/2025 05:25 PM EST
== END 2025-01-24 15:32 | disposition home or self-care (01) ==
PROVIDERS: PCP Internal Medicine; Visit Provider Nurse Practitioner Family
DX: N39.46 Mixed incontinence (principal)
CPT/HCPCS: 99204

== ENCOUNTER → 2025-01-24 14:11 | Outpatient (BNVA) | payer OTHER, SELFPAY | PROVIDERS: PCP Internal Medicine; Visit Provider Nurse Practitioner Family | DX: N39.46 Mixed incontinence (principal); N30.10 Interstitial cystitis (chronic) without hematuria; N32.81 Overactive bladder; R35.1 Nocturia | CPT/HCPCS: 51798; 99202 ==

== ENCOUNTER 2025-01-31 12:04 | Outpatient (REF) | payer OTHER, SELFPAY ==
--- OUTSIDE RECORDS SUMMARY | 2025-01-31 15:26 | XMS_ITS ---
Author Organization [facility] Address [address] [place] [address] Care Team Providers Care Pin Sticker Name Role Phone Po Concepción MADDEN Primary Care Provider Ravindra Arora [phone] REASON FOR VISIT appt PAT made Encounters Encounter Location Date Provider Diagnosis [facility] [address] [place] [phone] 12/24/2024 Ravindra Putnam Plan Of Treatment Next Appt Details Provider Name:Ravindra Putnam , 04/10/2025 07:30:00 AM, [address] [place] [address] , [place], [place], [phone], Progress Notes * THAO CHARLTON ADOB: [birth year] (64 yo F)Acc No.[id number]:12/24/2024 Patient:?THAO CHARLTON :1960???Age:64 Y???Sex:Female Address[address] [place] [address] * true * Date:? Generated for Anui med/Rosalee/eTransmitting on:?01/31/2025 03:26 PM EDT
--- OUTSIDE RECORDS SUMMARY | 2025-01-31 15:26 | XMS_ITS | Clinical Summary ---
Author Organization [facility] Address [address] [place] [address] Care Team Providers Care Building Architectural Designer Name Role Phone Unavailable Primary Care Provider [...] mcg/actuation inhalerIndicati ons:COPD (chronic obstructive pulmonary disease) ([facility]),Influ mg A Inhale 2 Puffs into the lungs every 4 (four) hours as needed for shortness of breath or wheezing. 1 Inhaler 3 5 Active traZODone (DESYREL) 50 mg tabletIndicatio ns:Insomnia,Dep ression Take 1 Tab by mouth nightly at bedtime. 30 Tab 0 5 Active aspirin 325 mg tabletIndicatio ns:HTN (hypertension), COPD (chronic obstructive pulmonary disease) ([facility]) Take 1 Tab by mouth once daily. 30 Tab 3 5 Active NIFEdipine (ADALAT CC) 60 mg 24 hr tabletIndicatio ns:HTN (hypertension) Take 1 Tab by mouth once daily. Take on an empty stomach. Swallow whole. Do not break, crush or chew. 30 Tab 3 5 Active predniSONE (DELTASONE) 10 mg tabletIndicatio ns:COPD (chronic obstructive pulmonary disease) ([facility]) Take 1 Tab by mouth once daily. 30 Tab 0 5 Active budesonide-form oterol (SYMBICORT) 80-4.5 mcg/actuation inhalerIndicati ons:COPD (chronic obstructive pulmonary disease) ([facility]) Inhale 2 Puffs into the lungs 2 (two) times daily. 1 Inhaler 3 5 Active albuterol (PROVENTIL) 2.5 mg /3 mL (0.083 %) nebulizer solutionIndicat ions:COPD (chronic obstructive pulmonary disease) ([facility]) Take 3 mL by nebulization every 6 [...] mcg/actuation aepbIndications :COPD (chronic obstructive pulmonary disease) ([facility]) Inhale 1 Inhaler into the lungs 2 (two) times daily. 1 Inhaler 6 5 Active clotrimazole-be tamethasone (LOTRISONE) 1-0.05 % lotionIndicatio ns:Rash Apply topically 2 (two) times daily. 30 mL 1 5 Active Active Problems Problem Noted Date Diagnosed Date Depression 01/28/2015 COPD (chronic obstructive pulmonary disease) ([facility]) 01/28/2015 Incontinence of urine in female [...] Plan of Treatment Not on file Insurance [place]
--- OUTSIDE RECORDS SUMMARY | 2025-01-31 15:26 | XMS_ITS | Patient Health Record ---
Author Organization [facility] Address [address] [place] [address] Care Team Providers Care Criminal Lawyer Name Role Phone Po Concepción MADDEN Primary Care Provider Ravindra Arora [phone] Allergies Allergen (clinical drug ingredient) Drug/Non Drug [...] Status Risk Notes Problem Colon cancer screening (565338072) Colon cancer screening (Z12.11) Active confirmed Problem Gastroesophageal reflux disease (disorder) (376846221) Chronic GERD (K21.9) Active confirmed Vital Signs Blood pressure diastolic 00 mm Hg 12/21/2024 Height 5 ft 4 in in 12/21/2024 Blood pressure systolic 00 mm Hg 12/21/2024 Weight 223 lbs 12/21/2024 BMI 38.27 kg/m2 12/21/2024 Encounters Encounter Location Date Provider Diagnosis [facility] [address] [place] [address] 12/21/2024 Ravindra Putnam Colon cancer screening Z12.11 and Chronic GERD K21.9 [facility] [address] [place] [phone] 12/24/2024 Ravindra Putnam Assessments Encounter Date Diagnosis [...] She was instructed to speak with her inclusion special educator regarding instructions in regard to adjusting her [...] She was instructed to speak with her inclusion special educator regarding instructions in regard to adjusting her [...] Provider Name:Ravindra Putnam , 04/10/2025 07:30:00 AM, [address] [place] [address] , [place], [place], [phone], Insurance Providers Payer Name Payer Address Payer Phone Subscriber Number Group Number Insured Name Patient Relationship to Insured Coverage Start Date Coverage End Date [facility] [address] Attn Claims ZEUS [place] [id number] THAO CHARLTON Self - patient is the insured Medical (General) History Medical History History ICD Code Thyroid nodule IDDM Peripheral vascular disease Urinary incontinence COPD Anxiety disorder Hypertension Renal calculi TIA Left breast cancer 03/2021 with chemo and surgery-Dr. Mitchell Reports a negative colonscopy in approx 2004 Denies [place],CVA,renal disease Neuropathy GERD Hyperlipidemia Surgical History Surgery Date(Month/Year) Mastectomy of left breast 2022-Dr. Roxann andersen Endometrial ablation Tubal ligation Tonsillectomy Appendectomy Cholecystectomy Bladder surgery Left knee replacement 2006
--- OUTSIDE RECORDS SUMMARY | 2025-01-31 15:26 | XMS_ITS ---
Author Organization [facility] Address [address] [place] [address] Care Team Providers Care Label Designer Name Role Phone Po Concepción MADDEN Primary Care Provider Unavailvandana e Ravindra Putnam Unavailable [phone] Allergies Allergen (clinical drug ingredient) Drug/Non Drug [...] Status Risk Notes Problem Colon cancer screening (789242453) Colon cancer screening (Z12.11) Active confirmed Problem Gastroesophageal reflux disease (disorder) (730668914) Chronic GERD (K21.9) Active confirmed Vital Signs Blood pressure systolic 00 mm Hg 12/21/19 25 Blood pressure diastolic 00 mm Hg 025 Height 5 ft 4 in in 12/21/2024 Weight 223 lbs 12/21/2024 BMI 38.27 kg/m2 12/21/2024 Encounters Encounter Location Date [facility] [address] [place] [address] 12/21/2024 Ravindra Putnam Colon cancer screening Z12.11 [...] She was instructed to speak with her commercial insulator regarding instructions in regard to adjusting her [...] She was instructed to speak with her commercial insulator regarding instructions in regard to adjusting her [...] Provider Name:Ravindra Putnam , 04/10/2025 07:30:00 AM, [address] [place] [address], [id number], Progress Notes * LATESHA, THAO ADOB: [birth year] (64 yo F)Acc No.[id number]:12/21/2024 Progress Notes Patient:?LATESHA, THAO Dragan Provider:?Ravindra Putnam MD :1960???Age:64 Y???Sex:Female D ate:12/21/2024 Address:[address] [place], [place] [id number] Pcp:Concepción Reyes MD Subjective: * Chief Complaints: [...] She was instructed to speak with her commercial insulator regarding instructions in regard to adjusting her [...] Procedure Codes:?3017F COLOR ECTAL CA SCREEN DOC [id number] Pt scrn tbco and id as [id number] BP SCR NOT PRFRM REC REASON NOS * Preventive Medicine:? ??Counseling:?Care goal follow-up plan:?Above Normal BMI Follow-up?Giving encouragement to exercise,?BMI management provided?Yes.? ??Urinary Incontinence:?Urinary Incontinence?Assessment:?Present,?Plan of care documented:?Yes,?Type of plan of care:?Lifestyle interventions.? * Follow Up:?prn * * Sign off status: Completed true * Provider:?Ravindra Putnam MD Date:? 025 Generated for Anabell jovel/Rosalee/Lisa on:?01/31/2025 03:26 PM EDT History and Physical Notes * HPI (History [...]
== END 2025-01-31 12:05 | disposition home or self-care (01) ==
LOC: HO.MAMMO 12:04
PROVIDERS: PCP Internal Medicine; Visit Provider Internal Medicine
DX: Z12.31 Encounter for screening mammogram for malignant neoplasm of breast (principal)
CPT/HCPCS: 77063; 77067

== ENCOUNTER → 2025-01-31 12:15 | Outpatient (BNV) | payer OTHER, SELFPAY | PROVIDERS: PCP Internal Medicine; Visit Provider Internal Medicine | DX: Z12.31 Encounter for screening mammogram for malignant neoplasm of breast (principal) | CPT/HCPCS: 77063; 77067 ==

== ENCOUNTER → 2025-02-01 12:52 | Outpatient (REF) | payer OTHER, SELFPAY ==
--- OUTSIDE RECORDS SUMMARY | 2025-02-01 14:24 | XMS_ITS ---
Author Organization [facility] Address [address] [place] [address] Care Team Providers Care Taxicab Dispatcher Name Role Phone Po Concepción MADDEN Primary Care Provider Unavailvandana e Ravindra Putnam Unavailable [phone] Allergies Allergen (clinical drug ingredient) Drug/Non Drug [...] Status Risk Notes Problem Colon cancer screening (352150979) Colon cancer screening (Z12.11) Active confirmed Problem Gastroesophageal reflux disease (disorder) (939051413) Chronic GERD (K21.9) Active confirmed Vital Signs Blood pressure systolic 00 mm Hg 12/21/19 25 Blood pressure diastolic 00 mm Hg 025 Height 5 ft 4 in in 12/21/2024 Weight 223 lbs 12/21/2024 BMI 38.27 kg/m2 12/21/2024 Encounters Encounter Location Date Provider [facility] [address] [place] [address] 12/21/2024 Ravindra Putnam Colon cancer screening Z12.11 [...] She was instructed to speak with her medical physics researcher regarding instructions in regard to adjusting her [...] She was instructed to speak with her medical physics researcher regarding instructions in regard to adjusting her [...] Provider Name:Ravindra Putnam , 04/10/2025 07:30:00 AM, [address] [place] [address], [id number], Progress Notes * LATESHA, THAO ADOB: [birth year] (64 yo F)Acc No.[id number]:12/21/2024 Progress Notes Patient:?LATESHA, THAO Dragan Provider:?Ravindra Putnam MD :1960???Age:64 Y???Sex:Female D ate:12/21/2024 Address:[address] [place], [place] [id number] Pcp:Concepción Reyes MD Subjective: * Chief Complaints: [...] She was instructed to speak with her medical physics researcher regarding instructions in regard to adjusting her [...] Procedure Codes:?3017F COLOR ECTAL CA SCREEN DOC [id number] Pt scrn tbco and id as [id number] BP SCR NOT PRFRM REC REASON NOS * Preventive Medicine:? ??Counseling:?Care goal follow-up plan:?Above Normal BMI Follow-up?Giving encouragement to exercise,?BMI management provided?Yes.? ??Urinary Incontinence:?Urinary Incontinence?Assessment:?Present,?Plan of care documented:?Yes,?Type of plan of care:?Lifestyle interventions.? * Follow Up:?prn * * Sign off status: Completed true * Provider:?Ravindra Putnam MD Date:? 025 Generated for Anabell jovel/Rosalee/Lisa on:?02/01/2025 02:24 PM EDT History and Physical Notes * [...]
--- OUTSIDE RECORDS SUMMARY | 2025-02-01 14:24 | XMS_ITS | Clinical Summary ---
Author Organization [facility] Address [address] [place] [address] Care Team Providers Care Supervisor Salvage Name Role Phone Unavailable Primary Care Provider [...] mcg/actuation inhalerIndicati ons:COPD (chronic obstructive pulmonary disease) ([facility]),Influ mg A Inhale 2 Puffs into the lungs every 4 (four) hours as needed for shortness of breath or wheezing. 1 Inhaler 3 5 Active traZODone (DESYREL) 50 mg tabletIndicatio ns:Insomnia,Dep ression Take 1 Tab by mouth nightly at bedtime. 30 Tab 0 5 Active aspirin 325 mg tabletIndicatio ns:HTN (hypertension), COPD (chronic obstructive pulmonary disease) ([facility]) Take 1 Tab by mouth once daily. 30 Tab 3 5 Active NIFEdipine (ADALAT CC) 60 mg 24 hr tabletIndicatio ns:HTN (hypertension) Take 1 Tab by mouth once daily. Take on an empty stomach. Swallow whole. Do not break, crush or chew. 30 Tab 3 5 Active predniSONE (DELTASONE) 10 mg tabletIndicatio ns:COPD (chronic obstructive pulmonary disease) ([facility]) Take 1 Tab by mouth once daily. 30 Tab 0 5 Active budesonide-form oterol (SYMBICORT) 80-4.5 mcg/actuation inhalerIndicati ons:COPD (chronic obstructive pulmonary disease) ([facility]) Inhale 2 Puffs into the lungs 2 (two) times daily. 1 Inhaler 3 5 Active albuterol (PROVENTIL) 2.5 mg /3 mL (0.083 %) nebulizer solutionIndicat ions:COPD (chronic obstructive pulmonary disease) ([facility]) Take 3 mL by nebulization every [...] mcg/actuation aepbIndications :COPD (chronic obstructive pulmonary disease) ([facility]) Inhale 1 Inhaler into the lungs 2 (two) times daily. 1 Inhaler 6 5 Active clotrimazole-be tamethasone (LOTRISONE) 1-0.05 % lotionIndicatio ns:Rash Apply topically 2 (two) times daily. 30 mL 1 5 Active Active Problems Problem Noted Date Diagnosed Date Depression 01/28/2015 COPD (chronic obstructive pulmonary disease) ([facility] 01/28/2015 Incontinence of urine in female 01/28/2015 [...] Plan of Treatment Not on file Insurance [place]
--- OUTSIDE RECORDS SUMMARY | 2025-02-01 14:24 | XMS_ITS | Patient Health Record ---
Author Organization [facility] Address [address] [place] [address] Care Team Providers Care Sagger Soak Name Role Phone Po Concepción MADDEN Primary Care Provider Ravindra Arora [phone] Allergies Allergen (clinical drug ingredient) Drug/Non Drug [...] Status Risk Notes Problem Colon cancer screening (365910839) Colon cancer screening (Z12.11) Active confirmed Problem Gastroesophageal reflux disease (disorder) (610408310) Chronic GERD (K21.9) Active confirmed Vital Signs Blood pressure diastolic 00 mm Hg 12/21/2024 Height 5 ft 4 in in 12/21/2024 Blood pressure systolic 00 mm Hg 12/21/2024 Weight 223 lbs 12/21/2024 BMI 38.27 kg/m2 12/21/2024 Encounters Encounter Location Date Provider Diagnosis [facility] [address] [place] [phone] 12/21/2024 Ravindra Putnam Colon cancer screening Z12.11 and Chronic GERD K21.9 [facility] [address] [place] [phone] 12/24/2024 Ravindra Putnam Assessments Encounter Date Diagnosis [...] She was instructed to speak with her beverage specialist regarding instructions in regard to adjusting her [...] She was instructed to speak with her beverage specialist regarding instructions in regard to adjusting her [...] Provider Name:Ravindra Putnam , 04/10/2025 07:30:00 AM, [address] [place] [address] , [place], [place], [phone], Insurance Providers Payer Name Payer Address Payer Phone Subscriber Number Group Number Insured Name Patient Relationship to Insured Coverage Start Date Coverage End Date [facility] [address] Attn Claims ZEUS [place] [id number] THAO CHARLTON Self - patient is the insured Medical (General) History Medical History History ICD Code Thyroid nodule IDDM Peripheral vascular disease Urinary incontinence COPD Anxiety disorder Hypertension Renal calculi TIA Left breast cancer 03/2021 with chemo and surgery-Dr. Mitchell Reports a negative colonscopy in approx 2004 Denies [place],CVA,renal disease Neuropathy GERD Hyperlipidemia Surgical History Surgery Date(Month/Year) Mastectomy of left breast 2022-Dr. Roxann andersen Endometrial ablation Tubal ligation Tonsillectomy Appendectomy Cholecystectomy Bladder surgery Left knee replacement 2006
--- OUTSIDE RECORDS SUMMARY | 2025-02-01 14:24 | XMS_ITS ---
Author Organization [facility] Address [address] [place] [address] Care Team Providers Care Seafood Clerk Name Role Phone Po Concepción MADDEN Primary Care Provider Ravindra Arora [phone] REASON FOR VISIT appt PAT made Encounters Encounter Location Date Provider Diagnosis [facility] [address] [place] [phone] 12/24/2024 Ravindra Putnam Plan Of Treatment Next Appt Details Provider Name:Ravindra Putnam , 04/10/2025 07:30:00 AM, [address] [place] [address] , [place], [place], [phone], Progress Notes * THAO CHARLTON ADOB: [birth year] (64 yo F)Acc No.[id number]:12/24/2024 Patient:?THAO CHARLTON :1960???Age:64 Y???Sex:Female [address] [place] [address] * true * Date:? Generated for Anui med/Rosalee/eTransmitting on:?02/01/2025 02:24 PM EDT
== END ==
LOC: HO.CARD 12:52
PROVIDERS: PCP Internal Medicine; Visit Provider Nurse Practitioner Family
DX: R00.2 Palpitations (principal)
CPT/HCPCS: 93270

== ENCOUNTER → 2025-02-01 12:55 | Outpatient (BNV) | payer OTHER, SELFPAY | PROVIDERS: PCP Internal Medicine; Visit Provider Internal Medicine | DX: I47.10 Supraventricular tachycardia, unspecified (principal) | CPT/HCPCS: 93272 ==

== ENCOUNTER 2025-02-07 10:12 | Outpatient (AMB) | payer OTHER, SELFPAY ==
--- NOTE | 2025-02-07 10:16 | MHC.OFFVIS ---
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 dysphagia. Barium swallow Sep 2024 showed some slowing of esophageal peristalsis. No other compressive symptoms. Last thyroid function testing from November 2024 showed normal TSH. Plan: Next ultrasound would be due November 2025 (4) HLD (hyperlipidemia): Code(s): E78.5 - Hyperlipidemia, unspecified Category: Medical Qualifiers: Hyperlipidemia type: mixed hyperlipidemia Qualified Code(s): E78.2 - Mixed hyperlipidemia Plan: Started on atorvastatin 40 mg daily in November 2024 is LDL noted to be 133, above goal of less than 70 mg/dL. Plan: -continue atorvastatin 40 mg daily -we will plan to repeat lipid panel sometime in summer 2024 (5) Hypertension: Code(s): I10 - Essential (primary) hypertension Category: Medical Qualifiers: Hypertension type: primary hypertension Qualified Code(s): I10 - Essential (primary) hypertension Plan: Blood pressure again noted to be elevated today in the 150 systolic. She has had repeatedly high blood pressures. Also noted to have microalbuminuria. She has had angioedema in the past with lisinopril. I discussed with her that while ARB receptor blockers are generally considered safe because the mechanism of action is different, however there is still a possible risk of allergic reaction to losartan. She is willing to try currently. I told her to make sure she takes it under supervision of her daughter. Plan: -start losartan 25 mg daily -continue amlodipine 5 mg b.i.d. Plan I spent 45 minutes in reviewing the record, seeing the patient and documenting in the medical record. Orders: Orders AMB Glucose Monitoring Today E11.65 - Type 2 diabetes mellitus with hyperglycemia, Z79.4 - half-way (current) use of insulin Referrals Protection Mgr Nutrition Referral E11.65 - Type 2 diabetes mellitus with hyperglycemia, Z79.4 - half-way (current) use of insulin Medications: New dulaglutide (Trulicity) 0.75 mg (0.5 mL) subcut QWEEK 2 mL 5RF losartan 25 mg PO DAILY 30 tabs 6RF Changed From Novolog FlexPen U-100 Insulin (insulin aspart U-100) 20 units (0.2 mL) subcut TID 15 mL 7RF NS To Novolog FlexPen U-100 Insulin (insulin aspart U-100) 25 units (0.25 mL) subcut TID 15 mL 7RF NS From insulin glargine (Lantus Solostar U-100 Insulin) 30 units (0.3 mL) subcut DAILY 15 mL 7RF E11.65 - Type 2 diabetes mellitus with hyperglycemia To insulin glargine (Lantus Solostar U-100 Insulin) 34 units (0.34 mL) subcut DAILY 15 mL 7RF E11.65 - Type 2 diabetes mellitus with hyperglycemia From pen needle, diabetic (BD Ultra-Fine Micro Pen Needle) as directed with insulin 100 ea 2RF E11.65 - Type 2 diabetes mellitus with hyperglycemia To pen needle, diabetic as directed with insulin 100 ea 5RF E11.65 - Type 2 diabetes mellitus with hyperglycemia Patient Instructions: please call the podiatry office above and reschedule your missed appointment please call the eye doctors office above also to reschedule appointment Increase lantus (glargine ) to 32 units daily in A Tova if after 5 days of this morning fasting blood sugar is still greater than 140mg/dl , increase to 34 units daily Increase novolog to 25 units 15 mins before meals, if you eat a snack in breakfast you can take 8 to 10 units again 15 mins before eating Start losartan 25 mg daily Start Trulicity 0.75 mcg weekly injection, please follow up with your pharamacy regarding cost and approval Do dexamethasone suppression test Dexamethasone suppression test I would like you to do a dexamethasone suppression test to rule out Cushings syndrome. You will take a 1 mg pill of dexamethasone at 11 PM and then have a blood draw for cortisol at 8AM the next morning. It is important to make sure you take the dexamethasone at 11 PM and have the blood test as close to 8AM as possible. Rule of 15 Treatment for Hypoglycemia (Low blood sugar) If your blood glucose is low (70 and below)*, follow the steps below to treat: Eat or drink something from the list below equal to 15 grams of carbohydrate (carb). Rest for 15 minutes Re-check your blood glucose. If it is still low, (below 70), repeat step 1 above. ? If your next meal is more than an hour away, you will need to eat one carbohydrate choice as a snack to keep your blood glucose from going low again. ?If you can't figure out why you have low blood glucose, call your healthcare provider, as your medicine may need to be adjusted. ?Always carry something with you to treat an insulin reaction. Use food from the list below. ? Foods equal to One Carbohydrate Choice (15 grams of carbohydrate): 3 Glucose ?tablets or 4 Dextrose tablets 4 ounces of fruit juice 5-6 ounces (about 1/2 can) of regular soda such as Coke or Pepsi ? 7-8 gummy or regular Life Savers ? 1 Tbsp. of sugar or jelly NOTE: If your blood sugar is less than 50, double the portion above for a total of 30 gm. ?Carbohydrate. ? Follow meal plan of 45-60 g of consistent carbohydrates at 3 meals each day and 15 g of carbohydrate at 1-2 snacks each day. Coding Level of Care Code Est Pt Level 5 (65844) Diagnoses Type 2 diabetes mellitus with hyperglycemia, with long-term current use of insulin E11.65; Z79.4 Diabetes mellitus nursing home insulin use: with nursing home use Adrenal adenoma, unspecified laterality D35.00 Laterality: unspecified laterality Multinodular goiter E04.2 Mixed hyperlipidemia E78.2 Hyperlipidemia type: mixed hyperlipidemia Primary hypertension I10 Hypertension type: primary hypertension CPT Codes Details - CPT: 33357 - Glucose monitoring, continuous-physician I&R (0603725304) Time Spent (min) 45
[2025-02-07 10:22] VITALS: BP 156/84; PULSE 96; O2SAT 98; BMI 38.0
[2025-02-07 10:36] LABS: Glucose, Whole Blood 205 mg/dL (60-115)
--- OUTSIDE RECORDS SUMMARY | 2025-02-07 11:36 | XMS_ITS ---
Author Organization [facility] Address [address] [place] [address] Care Team Providers Care Hearing Care Practitioner Name Role Phone Po Concepción MADDEN Primary Care Provider Unavailvandana e Ravindra Putnam Unavailable [phone] Allergies Allergen (clinical drug ingredient) Drug/Non Drug Allergy documented on EMR Reaction Allergy Type Onset Date Status omeprazole Omeprazole elevated bl pressure Drug Allergy Active lisinopril Lisinopril angioedema Drug Allergy Acti ve gabapentin Gabapentin hypertension Drug Allergy Ac tive duloxetine DULoxetine tachycardia Drug Allergy Act pily Penicillin facial swelling Drug Allergy Active oxybutynin OxyBUTYnin body twitching Drug Allergy Active metformin metFORMIN didarrhea Drug Allergy Active diclofenac Diclofenac enlarged liver Drug Allergy Active REASON FOR VISIT Patient presents today for [...] Status Risk Notes Problem Colon cancer screening (302246371) Colon cancer screening (Z12.11) Active confirmed Problem Gastroesophageal reflux disease (disorder) (206859097) Chronic GERD (K21.9) Active confirmed Vital Signs Blood pressure systolic 00 mm Hg 12/21/19 25 Blood pressure diastolic 00 mm Hg 025 Height 5 ft 4 in in 12/21/2024 Weight 223 lbs 12/21/2024 BMI 38.27 kg/m2 12/21/2024 Encounters Encounter Location Date Provider [facility] [address] [place] [phone] 12/21/2024 Ravindra Putnam Colon cancer screening Z12.11 [...] She was instructed to speak with her slurry mixer regarding instructions in regard to adjusting her [...] She was instructed to speak with her slurry mixer regarding instructions in regard to adjusting her [...] Provider Name:Ravindra Putnam , 04/10/2025 07:30:00 AM, [address] [place] [address], [id number], Progress Notes * LATESHA, THAO ADOB: [birth year] (64 yo F)Acc No.[id number]:12/21/2024 Progress Notes Patient:?LATESHA, THAO Dragan Provider:?Ravindra Putnam MD :1960???Age:64 Y???Sex:Female D ate:12/21/2024 Address:[address] [place], [place] [id number] Pcp:Concepción Reyes MD Subjective: * Chief Complaints: [...] She was instructed to speak with her slurry mixer regarding instructions in regard to adjusting her [...] Procedure Codes:?3017F COLOR ECTAL CA SCREEN DOC [id number] Pt scrn tbco and id as [id number] BP SCR NOT PRFRM REC REASON NOS * Preventive Medicine:? ??Counseling:?Care goal follow-up plan:?Above Normal BMI Follow-up?Giving encouragement to exercise,?BMI management provided?Yes.? ??Urinary Incontinence:?Urinary Incontinence?Assessment:?Present,?Plan of care documented:?Yes,?Type of plan of care:?Lifestyle interventions.? * Follow Up:?prn * * Sign off status: Completed true * Provider:?Ravindra Putnam MD Date:? 025 Generated for Anabell jovel/Rosalee/Lisa on:?02/07/2025 11:36 AM EDT History and Physical Notes * HPI [...]
--- OUTSIDE RECORDS SUMMARY | 2025-02-07 11:36 | XMS_ITS | Patient Health Record ---
Author Organization [facility] Address [address] [place] [address] Care Team Providers Care Program Coordinator For Residence Life Name Role Phone Po Concepción MADDEN Primary Care Provider Ravindra Arora [phone] Allergies Allergen (clinical drug ingredient) Drug/Non Drug [...] diclofenac Diclofenac enlarged liver Drug Allergy Active Reason For Referral No Information Medications Medication [...] Status Risk Notes Problem Colon cancer screening (811049072) Colon cancer screening (Z12.11) Active confirmed Problem Gastroesophageal reflux disease (disorder) (487630936) Chronic GERD (K21.9) Active confirmed Vital Signs Blood pressure diastolic 00 mm Hg 12/21/2024 Height 5 ft 4 in in 12/21/2024 Blood pressure systolic 00 mm Hg 12/21/2024 Weight 223 lbs 12/21/2024 BMI 38.27 kg/m2 12/21/2024 Encounters Encounter Location Date Provider Diagnosis [facility] [address] [place] [phone] 12/21/2024 Ravindra Putnam Colon cancer screening Z12.11 and Chronic GERD K21.9 [facility] [address] [place] [phone] 12/24/2024 Ravindra Putnam Assessments Encounter Date Diagnosis [...] She was instructed to speak with her valve and regulator repairer regarding instructions in regard to adjusting her [...] She was instructed to speak with her valve and regulator repairer regarding instructions in regard to adjusting her [...] Provider Name:Ravindra Putnam , 04/10/2025 07:30:00 AM, [address] [place] [address] , [place], [place], [id number], Insurance Providers Payer Name Payer Address Payer Phone Subscriber Number Group Number Insured Name Patient Relationship to Insured Coverage Start Date Coverage End Date [facility] [address] Attn Claims ZEUS Young [id number] THAO CHARLTON Self - patient is the insured Medical (General) History Medical History History ICD Code Thyroid nodule IDDM Peripheral vascular disease Urinary incontinence COPD Anxiety disorder Hypertension Renal calculi TIA Left breast cancer 03/2021 with chemo and surgery-Dr. Mitchell Reports a negative colonscopy in approx 2004 Denies [place],CVA,renal disease Neuropathy GERD Hyperlipidemia Surgical History Surgery Date(Month/Year) Mastectomy of left breast 2022-Dr. Roxann andersen Endometrial ablation Tubal ligation Tonsillectomy Appendectomy Cholecystectomy Bladder surgery Left knee replacement 2006
--- OUTSIDE RECORDS SUMMARY | 2025-02-07 11:36 | XMS_ITS | Clinical Summary ---
Author Organization [facility] Address [address] [place] [address] Care Team Providers Care Special Weapons And Tactics Officer Name Role Phone Unavailable Primary Care Provider [...] mcg/actuation inhalerIndicati ons:COPD (chronic obstructive pulmonary disease) ([facility]),Influ mg A Inhale 2 Puffs into the lungs every 4 (four) hours as needed for shortness of breath or wheezing. 1 Inhaler 3 5 Active traZODone (DESYREL) 50 mg tabletIndicatio ns:Insomnia,Dep ression Take 1 Tab by mouth nightly at bedtime. 30 Tab 0 5 Active aspirin 325 mg tabletIndicatio ns:HTN (hypertension), COPD (chronic obstructive pulmonary disease) ([facility]) Take 1 Tab by mouth once daily. 30 Tab 3 5 Active NIFEdipine (ADALAT CC) 60 mg 24 hr tabletIndicatio ns:HTN (hypertension) Take 1 Tab by mouth once daily. Take on an empty stomach. Swallow whole. Do not break, crush or chew. 30 Tab 3 5 Active predniSONE (DELTASONE) 10 mg tabletIndicatio ns:COPD (chronic obstructive pulmonary disease) ([facility]) Take 1 Tab by mouth once daily. 30 Tab 0 5 Active budesonide-form oterol (SYMBICORT) 80-4.5 mcg/actuation inhalerIndicati ons:COPD (chronic obstructive pulmonary disease) ([facility]) Inhale 2 Puffs into the lungs 2 (two) times daily. 1 Inhaler 3 5 Active albuterol (PROVENTIL) 2.5 mg /3 mL (0.083 %) nebulizer solutionIndicat ions:COPD (chronic obstructive pulmonary disease) ([facility]) Take 3 mL by nebulization every [...] mcg/actuation aepbIndications :COPD (chronic obstructive pulmonary disease) ([facility]) Inhale 1 Inhaler into the lungs 2 (two) times daily. 1 Inhaler 6 5 Active clotrimazole-be tamethasone (LOTRISONE) 1-0.05 % lotionIndicatio ns:Rash Apply topically 2 (two) times daily. 30 mL 1 5 Active Active Problems Problem Noted Date Diagnosed Date Depression 01/28/2015 COPD (chronic obstructive pulmonary disease) ([facility]) 01/28/2015 Incontinence of urine in female [...] Plan of Treatment Not on file Insurance [place]
--- OUTSIDE RECORDS SUMMARY | 2025-02-07 11:36 | XMS_ITS ---
Author Organization [facility] Address [address] [place] [address] Care Team Providers Care Water Plumber Name Role Phone Po Concepción MADDEN Primary Care Provider Ravindra Arora [phone] REASON FOR VISIT appt PAT made Encounters Encounter Location Date Provider Diagnosis [facility] [address] [place] [phone] 12/24/2024 Ravindra Putnam Plan Of Treatment Next Appt Details Provider Name:Ravindra Putnam , 04/10/2025 07:30:00 AM, [address] [place] [address] , [place], [place], [phone], Progress Notes * THAO CHARLTON ADOB: [birth year] (64 yo F)Acc No.[id number]:12/24/2024 Patient:?THAO CHARLTON :1960???Age:64 Y???Sex:Female [address] [place] [address] * true * Date:? Generated for Printi med/Rosalee/eTransmitting on:?02/07/2025 11:36 AM EDT
== END 2025-02-07 11:09 | disposition home or self-care (01) ==
LOC: HO.ENCR 10:13
PROVIDERS: PCP Internal Medicine; Visit Provider Student in an Organized Health Care Education/Training Program
DX: E11.65 Type 2 diabetes mellitus with hyperglycemia (principal); Z79.4 Long term (current) use of insulin; D35.00 Benign neoplasm of unspecified adrenal gland; E04.2 Nontoxic multinodular goiter; E78.2 Mixed hyperlipidemia; I10 Essential (primary) hypertension
CPT/HCPCS: 95251; 99215

== ENCOUNTER → 2025-02-07 10:12 | Outpatient (BNVA) | payer OTHER, SELFPAY | PROVIDERS: PCP Internal Medicine; Visit Provider Student in an Organized Health Care Education/Training Program | DX: E11.65 Type 2 diabetes mellitus with hyperglycemia (principal); E78.2 Mixed hyperlipidemia; E04.2 Nontoxic multinodular goiter; I10 Essential (primary) hypertension; D35.00 Benign neoplasm of unspecified adrenal gland; Z79.4 Long term (current) use of insulin | CPT/HCPCS: 82947; 99212 ==

== ENCOUNTER 2025-02-08 12:09 | Outpatient (REF) | payer OTHER, SELFPAY ==
--- NOTE | ~2025-02-08 | CT_ITS ---
CLINICAL HISTORY: R53.1 - Weakness CT HEAD WITHOUT CONTRAST Comparison: None Findings: No acute intracranial hemorrhage, extra-axial fluid collection, hydrocephalus or midline shift. Age appropriate generalized parenchymal atrophy. There are periventricular and subcortical white matter hypodensities which are nonspecific but most likely related to microangiopathic gliosis. There is no sinus or mastoid fluid. Visualized orbits: No acute abnormalities. There is no acute fracture. IMPRESSION: 1. No acute intracranial process. This document has been electronically signed by: Lauren Tena DO on 02/11/2025 14:20:08
--- OUTSIDE RECORDS SUMMARY | 2025-02-08 14:42 | XMS_ITS ---
Author Organization [facility] Address [address] [place] [address] Care Team Providers Care Special Education Case Manager Name Role Phone Po Concepción MADDEN Primary Care Provider Unavailvandana e Ravindra Putnam Unavailable [phone] Allergies Allergen (clinical drug ingredient) Drug/Non Drug [...] Status Risk Notes Problem Colon cancer screening (383370648) Colon cancer screening (Z12.11) Active confirmed Problem Gastroesophageal reflux disease (disorder) (249798398) Chronic GERD (K21.9) Active confirmed Vital Signs Blood pressure systolic 00 mm Hg 12/21/19 25 Blood pressure diastolic 00 mm Hg 025 Height 5 ft 4 in in 12/21/2024 Weight 223 lbs 12/21/2024 BMI 38.27 kg/m2 12/21/2024 Encounters Encounter Location Date [facility] [address] [place] [phone] 12/21/2024 Ravindra Putnam Colon cancer screening Z12.11 [...] She was instructed to speak with her cardroom manager regarding instructions in regard to adjusting her [...] She was instructed to speak with her cardroom manager regarding instructions in regard to adjusting her [...] Provider Name:Ravindra Putnam , 04/10/2025 07:30:00 AM, [address] [place] [address], [phone], Progress Notes * LATESHA, THAO ADOB: [birth year] (64 yo F)Acc No.[id number]:12/21/2024 Progress Notes Patient:?LATESHA, THAO Dragan Provider:?Ravindra Putnam MD :1960???Age:64 Y???Sex:Female D ate:12/21/2024 Address:[address] [place], [place] [phone] Pcp:Concepción Reyes MD Subjective: * Chief Complaints: [...] She was instructed to speak with her cardroom manager regarding instructions in regard to adjusting her [...] Procedure Codes:?3017F COLOR ECTAL CA SCREEN DOC [id number] Pt scrn tbco and id as [id number] BP SCR NOT PRFRM REC REASON NOS * Preventive Medicine:? ??Counseling:?Care goal follow-up plan:?Above Normal BMI Follow-up?Giving encouragement to exercise,?BMI management provided?Yes.? ??Urinary Incontinence:?Urinary Incontinence?Assessment:?Present,?Plan of care documented:?Yes,?Type of plan of care:?Lifestyle interventions.? * Follow Up:?prn * * Sign off status: Completed true * Provider:?Ravindra Putnam MD Date:? 025 Generated for Anabell jovel/Rosalee/Lisa on:?02/08/2025 02:41 PM EDT History and Physical Notes * [...]
--- OUTSIDE RECORDS SUMMARY | 2025-02-08 14:42 | XMS_ITS | Patient Health Record ---
Author Organization [facility] Address [address] [place] [address] Care Team Providers Care Fire Hydrant Mechanic Name Role Phone Po Concepción MADDEN Primary Care Provider Ravindra Arora [phone] Allergies Allergen (clinical drug ingredient) Drug/Non Drug [...] Status Risk Notes Problem Colon cancer screening (653026634) Colon cancer screening (Z12.11) Active confirmed Problem Gastroesophageal reflux disease (disorder) (094507551) Chronic GERD (K21.9) Active confirmed Vital Signs Blood pressure diastolic 00 mm Hg 12/21/2024 Height 5 ft 4 in in 12/21/2024 Blood pressure systolic 00 mm Hg 12/21/2024 Weight 223 lbs 12/21/2024 BMI 38.27 kg/m2 12/21/2024 Encounters Encounter Location Date Provider Diagnosis [facility] [address] [place] [address] 12/21/2024 Ravindra Putnam Colon cancer screening Z12.11 and Chronic GERD K21.9 [facility] [address] [place] [phone] 12/24/2024 Ravindra Putnam Assessments Encounter Date Diagnosis [...] She was instructed to speak with her sales support consultant regarding instructions in regard to adjusting her [...] She was instructed to speak with her sales support consultant regarding instructions in regard to adjusting her [...] Provider Name:Ravindra Putnam , 04/10/2025 07:30:00 AM, [address] [place] [address] , [place], [place], [phone], Insurance Providers Payer Name Payer Address Payer Phone Subscriber Number Group Number Insured Name Patient Relationship to Insured Coverage Start Date Coverage End Date [facility] [address] Attn Claims ZEUS [place] [id number] THAO CHARLTON Self - patient is the insured Medical (General) History Medical History History ICD Code Thyroid nodule IDDM Peripheral vascular disease Urinary incontinence COPD Anxiety disorder Hypertension Renal calculi TIA Left breast cancer 03/2021 with chemo and surgery-Dr. Mitchell Reports a negative colonscopy in approx 2004 Denies [place],CVA,renal disease Neuropathy GERD Hyperlipidemia Surgical History Surgery Date(Month/Year) Mastectomy of left breast 2022-Dr. Roxann andersen Endometrial ablation Tubal ligation Tonsillectomy Appendectomy Cholecystectomy Bladder surgery Left knee replacement 2006
--- OUTSIDE RECORDS SUMMARY | 2025-02-08 14:42 | XMS_ITS ---
Author Organization [facility] Address [address] [place] [phone] Care Team Providers Care Mh Teacher Name Role Phone Po Concepción MADDEN Primary Care Provider Ravindra Arora [phone] REASON FOR VISIT appt PAT made Encounters Encounter Location Date Provider Diagnosis [facility] [address] [place] [phone] 12/24/2024 Ravindra Putnam Plan Of Treatment Next Appt Details Provider Name:Ravindra Putnam , 04/10/2025 07:30:00 AM, [address] [place] [address] , [place], [place], [phone], Progress Notes * THAO CHARLTON ADOB: [birth year] (64 yo F)Acc No.[id number]:12/24/2024 Patient:?HTAO CHARLTON :1960???Age:64 Y???Sex:Female [address] [place] [address] * true * Date:? Generated for Printi med/Rosalee/eTransmitting on:?02/08/2025 02:41 PM EDT
--- OUTSIDE RECORDS SUMMARY | 2025-02-08 14:42 | XMS_ITS | Clinical Summary ---
Author Organization [facility] Address [address] [place] [address] Care Team Providers Care Ethnology Teacher Name Role Phone Unavailable Primary Care Provider [...] mcg/actuation inhalerIndicati ons:COPD (chronic obstructive pulmonary disease) ([facility]),Influ mg A Inhale 2 Puffs into the lungs every 4 (four) hours as needed for shortness of breath or wheezing. 1 Inhaler 3 5 Active traZODone (DESYREL) 50 mg tabletIndicatio ns:Insomnia,Dep ression Take 1 Tab by mouth nightly at bedtime. 30 Tab 0 5 Active aspirin 325 mg tabletIndicatio ns:HTN (hypertension), COPD (chronic obstructive pulmonary disease) ([facility]) Take 1 Tab by mouth once daily. 30 Tab 3 5 Active NIFEdipine (ADALAT CC) 60 mg 24 hr tabletIndicatio ns:HTN (hypertension) Take 1 Tab by mouth once daily. Take on an empty stomach. Swallow whole. Do not break, crush or chew. 30 Tab 3 5 Active predniSONE (DELTASONE) 10 mg tabletIndicatio ns:COPD (chronic obstructive pulmonary disease) ([facility]) Take 1 Tab by mouth once daily. 30 Tab 0 5 Active budesonide-form oterol (SYMBICORT) 80-4.5 mcg/actuation inhalerIndicati ons:COPD (chronic obstructive pulmonary disease) ([facility]) Inhale 2 Puffs into the lungs 2 (two) times daily. 1 Inhaler 3 5 Active albuterol (PROVENTIL) 2.5 mg /3 mL (0.083 %) nebulizer solutionIndicat ions:COPD (chronic obstructive pulmonary disease) ([facility]) Take 3 mL by nebulization [...] mcg/actuation aepbIndications :COPD (chronic obstructive pulmonary disease) ([facility]) Inhale 1 Inhaler into the lungs 2 (two) times daily. 1 Inhaler 6 5 Active clotrimazole-be tamethasone (LOTRISONE) 1-0.05 % lotionIndicatio ns:Rash Apply topically 2 (two) times daily. 30 mL 1 5 Active Active Problems Problem Noted Date Diagnosed Date Depression 01/28/2015 COPD (chronic obstructive pulmonary disease) ([facility]) 01/28/2015 Incontinence of urine in female 01/28/2015 [...] Plan of Treatment Not on file Insurance [place]
== END 2025-02-08 12:10 | disposition home or self-care (01) ==
LOC: HO.CT 12:09
PROVIDERS: PCP Internal Medicine; Visit Provider Internal Medicine
DX: R53.1 Weakness (principal)
CPT/HCPCS: 70450

== ENCOUNTER → 2025-02-08 12:11 | Outpatient (BNV) | payer OTHER, SELFPAY | PROVIDERS: PCP Internal Medicine; Visit Provider Radiology Diagnostic Radiology | DX: R53.1 Weakness (principal) | CPT/HCPCS: 70450 ==

== ENCOUNTER 2025-02-28 13:29 | Outpatient (REF) | payer OTHER, SELFPAY ==
[2025-02-28 17:51] LABS: Cholesterol 235 mg/dL (<200); HDL Cholesterol 36 mg/dL (>40); LDL Cholesterol Calculated 140 mg/dL (<100); Triglycerides 296 mg/dL (<150)
--- OUTSIDE RECORDS SUMMARY | 2025-02-28 17:56 | XMS_ITS | Clinical Summary ---
Author Organization [facility] Address [address] [place] [address] Care Team Providers Care Traveling Electrician Name Role Phone Unavailable Primary Care Provider [...] mcg/actuation inhalerIndicati ons:COPD (chronic obstructive pulmonary disease) ([facility]),Influ mg A Inhale 2 Puffs into the lungs every 4 (four) hours as needed for shortness of breath or wheezing. 1 Inhaler 3 5 Active traZODone (DESYREL) 50 mg tabletIndicatio ns:Insomnia,Dep ression Take 1 Tab by mouth nightly at bedtime. 30 Tab 0 5 Active aspirin 325 mg tabletIndicatio ns:HTN (hypertension), COPD (chronic obstructive pulmonary disease) ([facility]) Take 1 Tab by mouth once daily. 30 Tab 3 5 Active NIFEdipine (ADALAT CC) 60 mg 24 hr tabletIndicatio ns:HTN (hypertension) Take 1 Tab by mouth once daily. Take on an empty stomach. Swallow whole. Do not break, crush or chew. 30 Tab 3 5 Active predniSONE (DELTASONE) 10 mg tabletIndicatio ns:COPD (chronic obstructive pulmonary disease) ([facility]) Take 1 Tab by mouth once daily. 30 Tab 0 5 Active budesonide-form oterol (SYMBICORT) 80-4.5 mcg/actuation inhalerIndicati ons:COPD (chronic obstructive pulmonary disease) ([facility]) Inhale 2 Puffs into the lungs 2 (two) times daily. 1 Inhaler 3 5 Active albuterol (PROVENTIL) 2.5 mg /3 mL (0.083 %) nebulizer solutionIndicat ions:COPD (chronic obstructive pulmonary disease) ([facility]) Take 3 mL by nebulization every [...] mcg/actuation aepbIndications :COPD (chronic obstructive pulmonary disease) ([facility]) Inhale 1 Inhaler into the lungs 2 (two) times daily. 1 Inhaler 6 5 Active clotrimazole-be tamethasone (LOTRISONE) 1-0.05 % lotionIndicatio ns:Rash Apply topically 2 (two) times daily. 30 mL 1 5 Active Active Problems Problem Noted Date Diagnosed Date Depression 01/28/2015 COPD (chronic obstructive pulmonary disease) ([facility]) 01/28/2015 Incontinence of urine in female 01/28/2015 [...] Plan of Treatment Not on file Insurance [place]
[2025-02-28 18:03] LABS: Cortisol Random 7.9 ug/dL
[2025-02-28 18:09] LABS: Free T4 (Free Thyroxine) 1.03 ng/dL (0.71-1.85); Thyroid Stimulating Hormone 1.97 uIU/mL (0.32-4.0); Vitamin D 25-OH Total 21.9 ng/mL (>30)
[2025-02-28 18:20] LABS: Folate 8.4 ng/mL (> or = 4.0); Vitamin B12 1258 pg/mL (200-900)
== END 2025-02-28 13:30 | disposition home or self-care (01) ==
LOC: HO.LAB 13:29
PROVIDERS: PCP Internal Medicine; Visit Provider Internal Medicine
DX: Z01.419 Encounter for gynecological examination (general) (routine) without abnormal findings (principal); E11.65 Type 2 diabetes mellitus with hyperglycemia; C50.912 Malignant neoplasm of unspecified site of left female breast; D35.00 Benign neoplasm of unspecified adrenal gland; I10 Essential (primary) hypertension; J44.9 Chronic obstructive pulmonary disease, unspecified; E78.00 Pure hypercholesterolemia, unspecified; E66.9 Obesity, unspecified; E04.2 Nontoxic multinodular goiter; Z79.4 Long term (current) use of insulin; Z90.12 Acquired absence of left breast and nipple; Z72.0 Tobacco use
CPT/HCPCS: 36415; 80061; 82306; 82533; 82607; 82746; 83036; 84439; 84443; 99212; 99396; 99459

== ENCOUNTER 2025-02-28 13:29 | Outpatient (AMB) | payer OTHER, SELFPAY ==
--- NOTE | 2025-02-28 13:55 | A.OFFPC_ITS ---
Vital Signs 02/28/25 13:56 Height 5 ft 4 in Weight 214 lb 1.102 oz BMI 36.7 BP 110/66 Blood Pressure Location Lt brachial Position Sitting Pulse 75 Pulse Source Pulse Oximeter Temp 97.5 F Temp Source Temporal Artery Scan Pulse Oximetry (%) 94 Oxygen Delivery Method Room Air Intake Visit Reasons: DM Intake Note: Patient is here to follow up on DM. Area Cleaner Required: No Towel Rolling Machine Operator: Present Accompanied by: Daughter Allergies diclofenac [From Voltaren] Allergy (Severe, Verified 02/28/25 15:14) enlarged liver lisinopril [From Zestril] Allergy (Severe, Verified 02/28/25 15:14) Angioedema losartan Allergy (Intermediate, Verified 02/28/25 15:14) Difficulty Swallowing omeprazole Allergy (Intermediate, Verified 02/28/25 15:14) elevated blood pressure Penicillins [PENICILLINS] Allergy (Intermediate, Verified 02/28/25 15:14) Facial Swelling oxybutynin [Oxybutynin] Adverse Reaction (Severe, Verified 02/28/25 15:14) body twitching metformin Adverse Reaction (Intermediate, Verified 02/28/25 15:14) Diarrhea gabapentin Adverse Reaction (Verified 02/28/25 15:14) Hypertension duloxetine Adverse Reaction (Intermediate, Uncoded 02/28/25 13:55) tachycardia Tobacco use date assessed: 02/28/25 Fall risk assessment: No Falls in past year Last assessed Fall Risk: 02/28/25 Dental Screening Dental Screen Date: 11/29/24 [facility] Medical History HLD (hyperlipidemia) Multinodular goiter Peripheral neuropathy History of short term memory loss Port-A-Cath in place Smoker Family history of prostate cancer in father Leg swelling Shortness of breath Effusion of left knee Weakness Fall Thyroid nodule Adrenal adenoma Vision changes Diabetes History of palpitations History of unsteady gait Low back pain Arthritis Mild heartburn Hx of renal calculi Vaginal yeast infection Encounter to discuss test results 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 Cervical cancer screening Generalized anxiety disorder Type 2 diabetes mellitus with hyperglycemia History of anal fissures Peripheral vascular disease Urinary incontinence Hypertension COPD (chronic obstructive pulmonary disease) Hypercholesterolemia Surgical History H/O total mastectomy of left breast (12/21/22) History of biopsy History of endometrial ablation Hx of tubal ligation History of tonsillectomy History of appendectomy History of cholecystectomy History of bladder surgery History of left knee replacement Family History Mother History of breast cancer Father Prostate CA Brother No problems noted. Brother No problems noted. Daughter No problems noted. Social History (Updated 02/28/25 @ 15:47 by Claudia Darnell CNM) Household Members: Family Household Members Other:: Daughter, -05/2024 Housing: House Do you presently have visiting nurse or other home services: No Alcohol intake: current Alcohol intake frequency: holidays/special occasions only Comment: Fell 08/2022, leg weakness 1 glass on holidays Patient Tobacco Use Status: Current everyday Tobacco user Tobacco use type: Cigarette Cigarette Packs Per Day: 0.5 Cigarettes Per Day: 10 Years Smoked: 40, 1 pack a day e-Cigarette/Vaping Use: Never Used Second Hand Smoke Exposure: Yes service: No Current occupational status: disabled Cognitive needs: No Hearing needs: No Vision needs: Yes Female Reproductive History Menstrual Age of Menarche: 10 Questionnaire Thrive Questionnaire Date Thrive assessed: 11/29/24 PARMJIT-7 AMB Questionnaire PARMJIT-7 Date PARMJIT - 7 assessed: 11/29/24 Source: Developed by Drs. Ravindra Calderon, eJna Sweet, García Barnard and colleagues, with an educational hayde from [employer]. Physical exam (Primary Care) Vital Signs: Last Vital Signs Temp 97.5 F 02/28/25 13:56 Pulse 75 02/28/25 13:56 BP 110/66 02/28/25 13:56 Pulse Ox 94 02/28/25 13:56 Oxygen Delivery Method Room Air 02/28/25 13:56 BMI result Body Mass Index 36.7 Tobacco/Smoking Status: Tobacco use Status Tobacco use date assessed 02/28/25 02/28/25 14:06 Patient Tobacco Use Status Current everyday Tobacco 02/28/25 14:06 Tobacco use type Cigarette 02/28/25 14:06 e-Cigarette/Vaping Use Never Used 02/28/25 14:06 Thrive Assessment: Date of Thrive Assessment Date Thrive assessed 11/29/24 02/28/25 14:06 Const General: alert; No acute distress Eyes Conjunctivae: conjunctivae normal Resp Auscultation: clear to auscultation bilaterally Cardio Rate: regular rate Rhythm: regular rhythm GI Inspection: Yes normal to inspection Extrem General: Yes normal to inspection and No edema Results AMB Hemoglobin A1c AMB Hemoglobin A1c 7.5 % Last Edit by EDEN Shelton on 02/28/25 14:24 Results Reviewed Results Reviewed: Laboratory Last Values Hgb A1c (Clinic) 7.5 % (4.0-6.0) H 02/28/25 13:54 Coding Level of Care Code Est Pt Level 4 (30441) Complex EM visit Add On G2211 Diagnoses Type 2 diabetes mellitus with hyperglycemia, with long-term current use of insu tommy E11.65; Z79.4 Diabetes mellitus ad terminal makeup operator insulin use: with senior care use Invasive ductal carcinoma of left breast C50.912 Adrenal adenoma, unspecified laterality D35.00 Laterality: unspecified laterality Primary hypertension I10 Hypertension type: primary hypertension COPD (chronic obstructive pulmonary disease) J44.9 Hypercholesterolemia E78.00 Tobacco abuse Z72.0 Obesity (BMI 30-39.9) E66.9 Assessment & Plan Assessment & Plan (1) Type 2 diabetes mellitus with hyperglycemia: Comment: Dr. Osman Code(s): E11.65 - Type 2 diabetes mellitus with hyperglycemia Category: Medical Qualifiers: Diabetes mellitus senior care insulin use: with ad terminal makeup operator use Qualified Code(s): E11.65 - Type 2 diabetes mellitus with hyperglycemia; Z79.4 - ad terminal makeup operator (current) use of insulin Plan: Decrease the amount of carbohydrate intake, pasta, bread, rice and potatoes are all sugar and that is aside from all the sweet stuff, remember that fruits are good but they are Sweet also patient follows up with endocrinology on insulin basal bolus and added Trulicity (2) Invasive ductal carcinoma of left breast: Comment: 12/21/22, left simple mastectomy with targeted axillary dissection via needle localization of a lymph node was performed by Dr. Teran Code(s): C50.912 - Malignant neoplasm of unspecified site of left female breast Category: Medical Plan: Patient continues to follow-up with Hematology-Oncology up-to-date with mammogram (3) Adrenal adenoma: Code(s): D35.00 - Benign neoplasm of unspecified adrenal gland Category: Medical Qualifiers: Laterality: unspecified laterality Qualified Code(s): D35.00 - Benign neoplasm of unspecified adrenal gland Plan: Patient has been seen by Endocrinology in planned dexamethasone suppression test which the patient has not done yet (4) Hypertension: Code(s): I10 - Essential (primary) hypertension Category: Medical Qualifiers: Hypertension type: primary hypertension Qualified Code(s): I10 - Essential (primary) hypertension Plan: Continue with blood pressure medication. Decrease salt intake and exercise on amlodipine 5 mg once a day advised to start on losartan but had problems with swallowing. (5) COPD (chronic obstructive pulmonary disease): Code(s): J44.9 - Chronic obstructive pulmonary disease, unspecified Category: Medical Plan: Continue with albuterol inhaler and advised to make sure she stops smoking (6) Hypercholesterolemia: Code(s): E78.00 - Pure hypercholesterolemia, unspecified Category: Medical Plan: Avoid fried foods, chicken skin, eggs, butter margarine, pastries and meat. Be it pork or beef they have a lot of cholesterol on atorvastatin 40 mg once a day LDL goal of less than 70 and triglyceride of less than 150 patient was advised to get the blood work done (7) Tobacco abuse: Code(s): Z72.0 - Tobacco use Category: Medical Plan: Patient is strongly advised to stop smoking (8) Obesity (BMI 30-39.9): Code(s): E66.9 - Obesity, unspecified Category: Medical Plan: Diet and exercise Plan History of Present Illness The patient is a 65-year-old female presenting for follow-up on multiple chronic conditions. She has missed a previous appointment and reports a 7-pound weight loss. Her background includes a history of breast cancer with left mastectomy and a diagnosis of diabetes mellitus, which was most recently managed in January with the aid of endocrinology. The patient is on an insulin basal-bolus regimen, and her last hemoglobin A1c in November was 8.4%. Additionally, she experiences difficulty tolerating metformin and is on medication adjustments, including the planned initiation of an SGLT2 inhibitor. She has a history of hypercholesterolemia, hypertension, manageable with amlodipine and losartan, and COPD, for which she uses an albuterol inhaler. The patient also mentions difficulty with swallowing, and discussions revealed high cholesterol levels necessitating dietary and lifestyle changes. There is a noted presence of proteinuria suggesting renal involvement due to her diabetes. Her past medical history further includes peripheral vascular disease with neuropathy and a nontoxic multinodular goiter which was biopsied in 2022 revealing benign results. Besides, an adrenal adenoma was noted, and a dexamethasone suppression test has been advised but not conducted yet. The patient is a smoker and acknowledges the challenges of quitting, indicating a reduced consumption of about half a pack a day. She is undergoing continuous follow-up with hematology oncology and is awaiting a scheduled colonoscopy in March. Cardiovascular concerns included palpitations and a previously done echocardiogram suggesting grade 1 diastolic dysfunction. Despite a normal nuclear stress test in June 2024, recent lab work indicated high cholesterol and proteinuria. Health Maintenance - Mammogram up to date as of January 2025. - Cologuard negative in November 2022. - Scheduled colonoscopy in March. - Dexamethasone suppression test planned (not yet done). - Patient reminded of ophthalmology and podiatry appointments. - Blood pressure management through amlodipine and losartan. - Cholesterol management with atorvastatin 40 mg/day aiming for LDL <70 and Triglycerides <150. - Advised continued smoking cessation support. - Dietary counseling advised for weight and cholesterol control. - Encouraged increased water intake to mitigate urine concentration. Social History - Smoker, currently about half a pack per day, acknowledging difficulty quitting but recognizes the necessity. - Reports difficulty in eating kale but has been advised to incorporate more greens such as salads and soup-based kale into her diet. - Liquid intake reported as insufficient, contributing to urine concentration issues. Review of Systems - General: Reports weight loss. - Endocrine: Denies intolerance to metformin. - Cardiovascular: Reports palpitations. - Respiratory: Reports smoking. - Gastrointestinal: Reports difficulty swallowing. - Genitourinary: Reports proteinuria. - Neurological: Reports headaches. Physical Exam Results - Labs: Hemoglobin A1c 8.4 in November, high cholesterol noted in previous tests. - Imaging: Head CT in January was negative. - Cardiology: Echocardiogram shows 55-60% ejection fraction, grade 1 diastolic dysfunction. Normal myocardial perfusion on nuclear stress test in June 2024. Plan The patient will continue on insulin basal-bolus and Trulicity for diabetes management. Hypercholesterolemia will be managed with atorvastatin 40 mg/daily to target LDL goals. Blood pressure control will include amlodipine, losartan, and initiation of hydrochlorothiazide. The patient was advised on smoke cessation and dietary adjustments. Upcoming diagnostics include colonoscopy in March and a pending dexamethasone suppression test for adrenal evaluation. Patient was informed and verbally consented to the use of an ambient scribe for clinic note documentation during this visit. Discussion Notes We discussed the management approach for her chronic conditions, emphasizing medication adherence, dosage adjustments, and potential side effects. Benefits and risks of the current regimen were deliberated, particularly regarding her diabetes and cardiovascular health. I highlighted the importance of completing scheduled tests such as the dexamethasone suppression test and colonoscopy. Challenges with smoking cessation and dietary changes were discussed, aligning lifestyle modifications with health goals. Plans for her next visit entail ongoing monitoring and adjustments based on forthcoming diagnostic results and her response to treatment aimed at improving blood pressure, cholesterol, and glycemic control. Patient Instructions - Take insulin and Trulicity as prescribed for blood sugar control. - Continue atorvastatin 40 mg daily for cholesterol management. - Adhere to the prescribed blood pressure regimen with amlodipine, losartan, and hydrochlorothiazide. - Complete upcoming colonoscopy and dexamethasone suppression test. - Increase liquid intake to prevent concentrated urine. - Eat more salads and try cooking kale in soups or as greens. - Seek a support system to aid in smoking cessation efforts. - Monitor blood pressure at home and report excessively high readings. - Return promptly for any unexplained symptoms or if advised tests result indicate further action. Orders: Orders AMB Hemoglobin A1c Today E11.65 - Type 2 diabetes mellitus with hyperglycemia, Z79.4 - ad terminal makeup operator (current) use of insulin Complete Blood Count Auto Diff Today C50.919 - Malignant neoplasm of unspecified site of unspecified female breast Cortisol Random Today D35.00 - Benign neoplasm of unspecified adrenal gland, E 04.2 - Nontoxic multinodular goiter, E11.65 - Type 2 diabetes mellitus with hyperglycemia, Z79.4 - ad terminal makeup operator (current) use of insulin Medications: New hydrochlorothiazide 12.5 mg PO DAILY 30 tabs 3RF I10 - Essential (primary) hypertension
[2025-02-28 13:56] VITALS: BP 110/66; PULSE 75; TEMP 36.4; O2SAT 94; BMI 36.7
--- OUTSIDE RECORDS SUMMARY | 2025-02-28 16:16 | XMS_ITS | Patient Health Record ---
Author Organization [facility] Address [address] [place] [address] Care Team Providers Care Safety Trainer Name Role Phone Po Concepción MADDEN Primary Care Provider Ravindra Arora [phone] Allergies Allergen (clinical drug ingredient) Drug/Non Drug Allergy documented on EMR Reaction Allergy Type Onset Date Status diclofenac Diclofenac enlarged liver Drug Allergy Active omeprazole Omeprazole elevated bl pressure Drug Allergy Active lisinopril Lisinopril angioedema Drug Allergy Acti ve gabapentin Gabapentin hypertension Drug Allergy Ac tive duloxetine DULoxetine tachycardia Drug Allergy Act pily Penicillin facial swelling Drug Allergy Active oxybutynin OxyBUTYnin body twitching Drug Allergy Active metformin metFORMIN didarrhea Drug Allergy Active Reason For Referral No [...] Status Risk Notes Problem Colon cancer screening (596219638) Colon cancer screening (Z12.11) Active confirmed Problem Gastroesophageal reflux disease (disorder) (505094334) Chronic GERD (K21.9) Active confirmed Vital Signs Blood pressure diastolic 00 mm Hg 12/21/2024 Height 5 ft 4 in in 12/21/2024 Blood pressure systolic 00 mm Hg 12/21/2024 Weight 223 lbs 12/21/2024 BMI 38.27 kg/m2 12/21/2024 Encounters Encounter Location Date Provider Diagnosis [facility] [address] [place] [phone] 12/21/2024 Ravindra Putnam Colon cancer screening Z12.11 and Chronic GERD K21.9 [facility] [address] [place] [phone] 12/24/2024 Ravindra Putnam Assessments Encounter Date Diagnosis [...] She was instructed to speak with her helix coil winder regarding instructions in regard to adjusting her [...] She was instructed to speak with her helix coil winder regarding instructions in regard to adjusting her [...] Provider Name:Ravindra Putnam , 04/10/2025 07:30:00 AM, [address] [place] [address] , [place], [place], [phone], Insurance Providers Payer Name Payer Address Payer Phone Subscriber Number Group Number Insured Name Patient Relationship to Insured Coverage Start Date Coverage End Date [facility] [address] Attn Claims ZEUS [place] [id number] THAO CHARLTON Self - patient is the insured Medical (General) History Medical History History ICD Code Thyroid nodule IDDM Peripheral vascular disease Urinary incontinence COPD Anxiety disorder Hypertension Renal calculi TIA Left breast cancer 03/2021 with chemo and surgery-Dr. Mitchell Reports a negative colonscopy in approx 2004 Denies [place],CVA,renal disease Neuropathy GERD Hyperlipidemia Surgical History Surgery Date(Month/Year) Mastectomy of left breast 2022-Dr. Roxann andersen Endometrial ablation Tubal ligation Tonsillectomy Appendectomy Cholecystectomy Bladder surgery Left knee replacement 2006
--- OUTSIDE RECORDS SUMMARY | 2025-02-28 16:16 | XMS_ITS ---
Author Organization [facility] Address [address] [place] [address] Care Team Providers Care Eastern Philosophy Professor Name Role Phone Po Concepción MADDEN Primary Care Provider Unavailvandana e Ravindra Putnam Unavailable [phone] Allergies Allergen (clinical drug ingredient) Drug/Non Drug [...] Active metformin metFORMIN didarrhea Drug Allergy Active REASON FOR VISIT Patient [...] Status Risk Notes Problem Colon cancer screening (695634427) Colon cancer screening (Z12.11) Active confirmed Problem Gastroesophageal reflux disease (disorder) (799572772) Chronic GERD (K21.9) Active confirmed Vital Signs Blood pressure systolic 00 mm Hg 12/21/19 25 Blood pressure diastolic 00 mm Hg 025 Height 5 ft 4 in in 12/21/2024 Weight 223 lbs 12/21/2024 BMI 38.27 kg/m2 12/21/2024 Encounters Encounter Location Date Provider [facility] [address] [facility] [address] [place] [phone] 12/21/2024 Ravindra Putnam Colon cancer screening Z12.11 [...] She was instructed to speak with her cinder crusher operator regarding instructions in regard to adjusting her [...] She was instructed to speak with her cinder crusher operator regarding instructions in regard to adjusting her [...] Provider Name:Ravindra Putnam , 04/10/2025 07:30:00 AM, [address] [place] [address], [phone], Progress Notes * LATESHA, THAO ADOB: [birth year] (64 yo F)Acc No.[id number]:12/21/2024 Progress Notes Patient:?LATESHA, THAO Dragan Provider:?Ravindra Putnam MD :1960???Age:64 Y???Sex:Female D ate:12/21/2024 Address:[address] [place], [place] [id number] Pcp:Concepción Reyes MD Subjective: * Chief Complaints: [...] She was instructed to speak with her cinder crusher operator regarding instructions in regard to adjusting her [...] Procedure Codes:?3017F COLOR ECTAL CA SCREEN DOC [id number] Pt scrn tbco and id as [id number] BP SCR NOT PRFRM REC REASON NOS * Preventive Medicine:? ??Counseling:?Care goal follow-up plan:?Above Normal BMI Follow-up?Giving encouragement to exercise,?BMI management provided?Yes.? ??Urinary Incontinence:?Urinary Incontinence?Assessment:?Present,?Plan of care documented:?Yes,?Type of plan of care:?Lifestyle interventions.? * Follow Up:?prn * * Sign off status: Completed true * Provider:?Ravindra Putnam MD Date:? 025 Generated for Anabell jovel/Rosalee/Lisa on:?02/28/2025 04:16 PM EDT History and Physical Notes * [...]
--- OUTSIDE RECORDS SUMMARY | 2025-02-28 16:17 | XMS_ITS | Clinical Summary ---
Author Organization [facility] Address [address] [place] [address] Care Team Providers Care Bug Trimmer Name Role Phone Unavailable Primary Care Provider [...] mcg/actuation inhalerIndicati ons:COPD (chronic obstructive pulmonary disease) ([facility]),Influ mg A Inhale 2 Puffs into the lungs every 4 (four) hours as needed for shortness of breath or wheezing. 1 Inhaler 3 5 Active traZODone (DESYREL) 50 mg tabletIndicatio ns:Insomnia,Dep ression Take 1 Tab by mouth nightly at bedtime. 30 Tab 0 5 Active aspirin 325 mg tabletIndicatio ns:HTN (hypertension), COPD (chronic obstructive pulmonary disease) ([facility]) Take 1 Tab by mouth once daily. 30 Tab 3 5 Active NIFEdipine (ADALAT CC) 60 mg 24 hr tabletIndicatio ns:HTN (hypertension) Take 1 Tab by mouth once daily. Take on an empty stomach. Swallow whole. Do not break, crush or chew. 30 Tab 3 5 Active predniSONE (DELTASONE) 10 mg tabletIndicatio ns:COPD (chronic obstructive pulmonary disease) ([facility]) Take 1 Tab by mouth once daily. 30 Tab 0 5 Active budesonide-form oterol (SYMBICORT) 80-4.5 mcg/actuation inhalerIndicati ons:COPD (chronic obstructive pulmonary disease) ([facility]) Inhale 2 Puffs into the lungs 2 (two) times daily. 1 Inhaler 3 5 Active albuterol (PROVENTIL) 2.5 mg /3 mL (0.083 %) nebulizer solutionIndicat ions:COPD (chronic obstructive pulmonary disease) ([facility]) Take 3 mL by nebulization every [...] mcg/actuation aepbIndications :COPD (chronic obstructive pulmonary disease) ([facility]) Inhale 1 Inhaler into the lungs 2 (two) times daily. 1 Inhaler 6 5 Active clotrimazole-be tamethasone (LOTRISONE) 1-0.05 % lotionIndicatio ns:Rash Apply topically 2 (two) times daily. 30 mL 1 5 Active Active Problems Problem Noted Date Diagnosed Date Depression 01/28/2015 COPD (chronic obstructive pulmonary disease) ([facility]) 01/28/2015 Incontinence of urine in female 01/28/2015 HTN (hypertension) 01/28/2015 Influenza A 01/28/2015 Insomnia 01/28/2015 Rash 01/28/2015 Immunizations Immunization Administration Dates Next Due INFLUENZA, SEASONAL, INJECTABLE [...] Plan of Treatment Not on file Insurance [place]
--- OUTSIDE RECORDS SUMMARY | 2025-02-28 16:17 | XMS_ITS ---
Author Organization [facility] Address [address] [place] [address] Care Team Providers Care Fresh Work Wrapper Layer Name Role Phone Po Concepción MADDEN Primary Care Provider Ravindra Arora [phone] REASON FOR VISIT appt PAT made Encounters Encounter Location Date Provider Diagnosis [facility] [address] [place] [phone] 12/24/2024 Ravindra Putnam Plan Of Treatment Next Appt Details Provider Name:Ravindra Putnam , 04/10/2025 07:30:00 AM, [address] [place] [address] , [place], [place], [phone], Progress Notes * THAO CHARLTON ADOB: [birth year] (64 yo F)Acc No.[id number]:12/24/2024 Patient:?THAO CHARLTON :1960???Age:64 Y???Sex:Female [address] [place] [address] * true * Date:? Generated for Anui med/Rosalee/eTransmitting on:?02/28/2025 04:16 PM EDT
== END 2025-02-28 14:47 | disposition home or self-care (01) ==
LOC: HO.HMCH 13:30
PROVIDERS: PCP Internal Medicine; Visit Provider Internal Medicine
DX: E11.65 Type 2 diabetes mellitus with hyperglycemia (principal); Z79.4 Long term (current) use of insulin; C50.912 Malignant neoplasm of unspecified site of left female breast; J44.9 Chronic obstructive pulmonary disease, unspecified; D35.00 Benign neoplasm of unspecified adrenal gland; I10 Essential (primary) hypertension; E78.00 Pure hypercholesterolemia, unspecified; Z72.0 Tobacco use; E66.9 Obesity, unspecified

== ENCOUNTER 2025-02-28 15:01 | Outpatient (AMB) | payer OTHER, SELFPAY ==
--- NOTE | 2025-02-28 15:13 | A.OFFVIS_ITS ---
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 Station Manager: Station Manager Present (Ashley) Allergies diclofenac [From Voltaren] Allergy (Severe, Verified 02/28/25 15:14) enlarged liver lisinopril [From Zestril] Allergy (Severe, Verified 02/28/25 15:14) Angioedema losartan Allergy (Intermediate, Verified 02/28/25 15:14) Difficulty Swallowing omeprazole Allergy (Intermediate, Verified 02/28/25 15:14) elevated blood pressure Penicillins [PENICILLINS] Allergy (Intermediate, Verified 02/28/25 15:14) Facial Swelling oxybutynin [Oxybutynin] Adverse Reaction (Severe, Verified 02/28/25 15:14) body twitching metformin Adverse Reaction (Intermediate, Verified 02/28/25 15:14) Diarrhea gabapentin Adverse Reaction (Verified 02/28/25 15:14) Hypertension duloxetine Adverse Reaction (Intermediate, Uncoded 02/28/25 13:55) tachycardia HPI Comments Details: She 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 She is doing well with no wheel shop supervisor concerns. in May. Denies any vaginal irritation. Attempting to eat a healthy diet with calcium and vitamin D. Uses a walker at home. Last pap smear; 2020. Last mammogram; 2024. History of left mastectomy. Colonoscopy is booked for March. 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 Cervical cancer screening Generalized anxiety disorder Type 2 diabetes mellitus with hyperglycemia History of anal fissures Peripheral vascular disease Urinary incontinence Hypertension COPD (chronic obstructive pulmonary disease) Hypercholesterolemia Surgical History H/O total mastectomy of left breast (12/21/22) History of biopsy History of endometrial ablation Hx of tubal ligation History of tonsillectomy History of appendectomy History of cholecystectomy History of bladder surgery History of left knee replacement Family History Mother History of breast cancer Father Prostate CA Brother No problems noted. Brother No problems noted. Daughter No problems noted. Social History (Updated 02/28/25 @ 15:47 by Claudia Darnell CNM) Household Members: Family Household Members Other:: Daughter, -05/2024 Housing: House Do you presently have visiting nurse or other home services: No Alcohol intake: current Alcohol intake frequency: holidays/special occasions only Comment: Fell 08/2022, leg weakness 1 glass on holidays Patient Tobacco Use Status: Current everyday Tobacco user Tobacco use type: Cigarette Cigarette Packs Per Day: 0.5 Cigarettes Per Day: 10 Years Smoked: 40, 1 pack a day e-Cigarette/Vaping Use: Never Used Second Hand Smoke Exposure: Yes service: No Current occupational status: disabled Cognitive needs: No Hearing needs: No Vision needs: Yes Female Reproductive History Menstrual Age of Menarche: 10 Total pregnancies: 7 Full term: 1 Number of Living Children: 1 Ab induced: 1 Ab spontaneous: 5 Date of last pap smear: 02/26/22 (neg pap and hpv) Date of Mammogram: 01/31/25 (Bir[facility] 1) Review of Systems Const All systems reviewed & are unremarkable except as noted in HPI and below Reports as per HPI Eyes Reports no additional complaints ENT Reports no additional complaints Card Reports no additional complaints Resp Reports no additional complaints GI Reports as per HPI and Reports no additional complaints Reports as per HPI Musc Reports no additional complaints Skin/Breast Reports as per HPI Neuro Reports no additional complaints Psych Reports no additional complaints Endo Reports no additional complaints Rich/Lymph Reports no additional complaints Aller/Immun Reports no additional complaints Physical Exam Vital Signs: Last Vital Signs BP 110/70 02/28/25 15:14 BMI result Body Mass Index 36.7 Const General: cooperative, healthy appearing, no acute distress, well developed and alert Orientation/consciousness: patient oriented x3 HEENT Head: Yes normal to inspection Eyes General: appearance normal, both eyes and all related structures Neck Neck: Yes normal visual inspection Thyroid: Thyroid normal Chest Other: left mastectomy scarring Chest palpation & inspection: normal inspection of the chest and other (no puckering, dimpling, peau de orange, retraction, discharge, masses) Breast/axilla inspection: normal inspection of the breasts Breast/axilla palpation: normal palpation of the breasts Resp Effort & Inspection: normal respiratory effort GI Inspection: Yes normal to inspection, Yes obesity and Yes scar Palpation (GI): Soft to palpation Rectal Exam - Female: deferred General: Yes bladder normal to palpation External Female Exam: normal external appearance and normal appearance of the urethra Speculum Exam - Vagina: normal appearance of the vagina, normal palpation, normal vaginal discharge and vagina atrophic (Narrow canal) Speculum Exam - Cervix: normal appearance of the cervix (Atrophic changes) and normal palpation Bimanual exam- vagina & uterus: normal bimanual exam, normal palpation, uterine size normal, bladder normal to palpation, normal palpation and non-tender Bimanual Exam- Adnexa, other: no masses Skin General skin exam: no rashes or lesions noted Rashes: no rashes Neuro General: patient oriented x3 Cognition (Neuro): normal cognition Extrem General: Yes normal to inspection Psych Attitude: cooperative Thought process: Normal thought process present Results AMB Hemoglobin A1c AMB Hemoglobin A1c 7.5 % Last Edit by EDEN Shelton on 02/28/25 14:24 Assessment & Plan Assessment & Plan (1) Encounter for well woman exam with routine gynecological exam: Code(s): Z01.419 - Encounter for gynecological examination (general) (routine) without abnormal findings Category: Medical Plan Discussed: Current recommendations for pap smears per ASCCP guidelines. Breast awareness, periodic self breast exams and yearly mammogram. Maintain a healthy lifestyle, well balanced diet including Calcium 1,200 mg and Vitamin D 600 IU daily, and routine activity/ROM/exercise. Contact the office with any postmenopausal bleeding. Patient verbalizes understanding and agrees to the plan of care. She was given opportunity to ask questions and all questions were answered to the best of my ability. RTO in 1 year for annual wheel shop supervisor exam. This note is constructed using voice recognition software. While every effort has been made to ensure accuracy, psychologist counseling errors may have been included. Coding Level of Care Code Est Pt Prev Care 40-64y(43404) Diagnoses Encounter for well woman exam with routine gynecological exam Z01.419
[2025-02-28 15:14] VITALS: BP 110/70; BMI 36.7
--- OUTSIDE RECORDS SUMMARY | 2025-02-28 17:33 | XMS_ITS | Clinical Summary ---
Author Organization [facility] Address [address] [place] [address] Care Team Providers Care Cafeteria Aide Name Role Phone Unavailable Primary Care Provider [...] mcg/actuation inhalerIndicati ons:COPD (chronic obstructive pulmonary disease) ([facility]),Influ mg A Inhale 2 Puffs into the lungs every 4 (four) hours as needed for shortness of breath or wheezing. 1 Inhaler 3 5 Active traZODone (DESYREL) 50 mg tabletIndicatio ns:Insomnia,Dep ression Take 1 Tab by mouth nightly at bedtime. 30 Tab 0 5 Active aspirin 325 mg tabletIndicatio ns:HTN (hypertension), COPD (chronic obstructive pulmonary disease) ([facility]) Take 1 Tab by mouth once daily. 30 Tab 3 5 Active NIFEdipine (ADALAT CC) 60 mg 24 hr tabletIndicatio ns:HTN (hypertension) Take 1 Tab by mouth once daily. Take on an empty stomach. Swallow whole. Do not break, crush or chew. 30 Tab 3 5 Active predniSONE (DELTASONE) 10 mg tabletIndicatio ns:COPD (chronic obstructive pulmonary disease) ([facility]) Take 1 Tab by mouth once daily. 30 Tab 0 5 Active budesonide-form oterol (SYMBICORT) 80-4.5 mcg/actuation inhalerIndicati ons:COPD (chronic obstructive pulmonary disease) ([facility]) Inhale 2 Puffs into the lungs 2 (two) times daily. 1 Inhaler 3 5 Active albuterol (PROVENTIL) 2.5 mg /3 mL (0.083 %) nebulizer solutionIndicat ions:COPD (chronic obstructive pulmonary disease) ([facility]) Take 3 mL by nebulization [...] mcg/actuation aepbIndications :COPD (chronic obstructive pulmonary disease) ([facility]) Inhale 1 Inhaler into the lungs 2 (two) times daily. 1 Inhaler 6 5 Active clotrimazole-be tamethasone (LOTRISONE) 1-0.05 % lotionIndicatio ns:Rash Apply topically 2 (two) times daily. 30 mL 1 5 Active Active Problems Problem Noted Date Diagnosed Date Depression 01/28/2015 COPD (chronic obstructive pulmonary disease) ([facility]) 01/28/2015 Incontinence of urine in female [...] Plan of Treatment Not on file Insurance [place]
== END 2025-02-28 15:48 | disposition home or self-care (01) ==
LOC: HO.HWS 15:02
PROVIDERS: PCP Internal Medicine; Visit Provider Advanced Practice Midwife
DX: Z01.419 Encounter for gynecological examination (general) (routine) without abnormal findings (principal)
CPT/HCPCS: 99396; 99459

== ENCOUNTER 2025-03-07 11:23 | Outpatient (AMB) | payer OTHER, SELFPAY ==
--- NOTE | 2025-03-07 11:24 | MHC.OFFVIS ---
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 with light breakfast Follow up in 8 weeks -follow up with Ophthalmology, number given to reschedule appointment -follow up with Podiatry, number given to reschedule appointment (2) Adrenal adenoma: Code(s): D35.00 - Benign neoplasm of unspecified adrenal gland Category: Medical Qualifiers: Laterality: unspecified laterality Qualified Code(s): D35.00 - Benign neoplasm of unspecified adrenal gland Plan: Bilateral adrenal adenomas, 2.4 cm right adrenal adenoma and 2.4 cm left adrenal adenoma, with benign washout features. Remained stable since 2010. Repeat CT scan from August 2022 again showed similar appearance of the nodules. Clearly these are benign and stable in size from 2021. In terms of function workup, plasma normetanephrine and metanephrine levels were normal from March 2024. Labs from November 2024, showed renin of 0.94, however aldosterone is also low at 3, not concerning for primary hyperaldosteronism. Random cortisol of 15.6 at 08:00, with a ACTH of 7. She again did not do the 1 mg dexamethasone suppression test. Patient has repeatedly failed to do dexamethasone suppression test. Orders already in place, cortisol was incorrectly drawn, dexamethasone level not done, at this point we have told her about 10 times to do this. Her blood sugars are improving, at this time I am going to leave this to wrist and if she continues to gain weight or have worsening blood sugars, we will consider doing a 1 mg dexamethasone suppression test. (3) Multinodular goiter: Code(s): E04.2 - Nontoxic multinodular goiter Category: Medical Plan: Patient with no family history of thyroid cancer, with no personal history of head or neck radiation, who was diagnosed with thyroid nodules Ultrasound from 01/21/2023 showed multinodular goiter with a 1.5 TR 4 right lower dominant and isthmus 1.2 cm TR 4 nodule, both were biopsied in June 2023 with benign cytology.Ultrasound from November 2024 showed stable size of the right lower pole, right midpole and isthmus nodules. Does have intermittent dysphagia. Barium swallow Sep 2024 showed some slowing of esophageal peristalsis. No other compressive symptoms. Last thyroid function testing from November 2024 showed normal TSH. Plan: Next ultrasound would be due November 2025 (4) HLD (hyperlipidemia): Code(s): E78.5 - Hyperlipidemia, unspecified Category: Medical Qualifiers: Hyperlipidemia type: mixed hyperlipidemia Qualified Code(s): E78.2 - Mixed hyperlipidemia Plan: Started on atorvastatin 40 mg daily in November 2024 is LDL noted to be 133, above goal of less than 70 mg/dL. Repeat LDL February 2025 at 140. Did not get a chance to address atorvastatin today. We will consider increasing at future visits. Plan: -continue atorvastatin 40 mg daily (5) Hypertension: Code(s): I10 - Essential (primary) hypertension Category: Medical Qualifiers: Hypertension type: primary hypertension Qualified Code(s): I10 - Essential (primary) hypertension Plan: Blood pressure again noted to be elevated today in the 150 systolic. She has had repeatedly high blood pressures. Also noted to have microalbuminuria. She has had angioedema in the past with lisinopril. We started losartan 25 mg daily in January 2025, but apparently she again had swelling of the lips with a it. And difficulty swallowing. She can not be on Jj/Arb due to concern for allergic reaction. Primary care has added hydrochlorothiazide to her regimen. Plan: -continue current antihypertensive measurement Plan I spent 30 minutes in reviewing the record, seeing the patient and documenting in the medical record. 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 Medications: New dulaglutide (Trulicity) 1.5 mg (0.5 mL) subcut QWEEK 2 mL 6RF Changed From insulin glargine (Lantus Solostar U-100 Insulin) 34 units (0.34 mL) subcut DAILY 15 mL 7RF E11.65 - Type 2 diabetes mellitus with hyperglycemia To insulin glargine (Lantus Solostar U-100 Insulin) 28 units (0.28 mL) subcut DAILY 15 mL 7RF E11.65 - Type 2 diabetes mellitus with hyperglycemia From Novolog FlexPen U-100 Insulin (insulin aspart U-100) 25 units (0.25 mL) subcut TID 15 mL 7RF NS To Novolog FlexPen U-100 Insulin (insulin aspart U-100) 22 units (0.22 mL) subcut TID 15 mL 7RF NS From Novolog FlexPen U-100 Insulin (insulin aspart U-100) 22 units (0.22 mL) subcut TID 15 mL 7RF NS To Novolog FlexPen U-100 Insulin (insulin aspart U-100) 20 units (0.2 mL) subcut TID 15 mL 7RF NS Discontinued dulaglutide (Trulicity) Discontinued Reason: Doctor's Order 0.75 mg (0.5 mL) subcut QWEEK 2 mL 5RF Patient Instructions: Call eye doctor Call foot doctor Increase Trulicity to 1.5 mg weekly Reduce insulin lantus (glargine ) to 28 units daily Reduce short acting insulin to 20 units before lunch and dinner Take 10 units with light breakfast Follow up in 8 weeks Coding Level of Care Code Est Pt Level 4 (31228) Diagnoses Type 2 diabetes mellitus with hyperglycemia, with long-term current use of insulin E11.65; Z79.4 Diabetes mellitus intermediate card tender insulin use: with intermediate card tender use Adrenal adenoma, unspecified laterality D35.00 Laterality: unspecified laterality Multinodular goiter E04.2 Mixed hyperlipidemia E78.2 Hyperlipidemia type: mixed hyperlipidemia Primary hypertension I10 Hypertension type: primary hypertension Time Spent (min) 30
[2025-03-07 11:25] VITALS: BP 140/82; PULSE 89; O2SAT 98
[2025-03-07 11:36] LABS: Glucose, Whole Blood 187 mg/dL (60-115)
== END 2025-03-07 12:04 | disposition home or self-care (01) ==
LOC: HO.ENCR 11:24
PROVIDERS: PCP Internal Medicine; Visit Provider Student in an Organized Health Care Education/Training Program
DX: E11.65 Type 2 diabetes mellitus with hyperglycemia (principal); Z79.4 Long term (current) use of insulin; D35.00 Benign neoplasm of unspecified adrenal gland; E04.2 Nontoxic multinodular goiter; E78.2 Mixed hyperlipidemia; I10 Essential (primary) hypertension
CPT/HCPCS: 99214

== ENCOUNTER → 2025-03-07 11:23 | Outpatient (AMB) | payer OTHER, SELFPAY ==
--- NOTE | 2025-03-07 12:30 | MHC.AMNUTRGE ---
VS Expanded 03/07/25 12:43 03/07/25 12:44 Height 5 ft 4 in 5 ft 4 in Weight 214 lb 4.629 oz 214 lb BMI 36.8 36.7 Intake Visit Reasons: Type 2 diabetes mellitus with hyperglycemia Allergies diclofenac [From Voltaren] Allergy (Severe, Verified 03/07/25 11:30) enlarged liver lisinopril [From Zestril] Allergy (Severe, Verified 03/07/25 11:30) Angioedema losartan Allergy (Intermediate, Verified 03/07/25 11:30) Difficulty Swallowing omeprazole Allergy (Intermediate, Verified 03/07/25 11:30) elevated blood pressure Penicillins [PENICILLINS] Allergy (Intermediate, Verified 03/07/25 11:30) Facial Swelling oxybutynin [Oxybutynin] Adverse Reaction (Severe, Verified 03/07/25 11:30) body twitching metformin Adverse Reaction (Intermediate, Verified 03/07/25 11:30) Diarrhea gabapentin Adverse Reaction (Verified 03/07/25 11:30) Hypertension duloxetine Adverse Reaction (Intermediate, Uncoded 03/07/25 11:30) tachycardia Nutrition Presentation Details: Pt presents for MNT for T2DM. Pt was referred by flooring machine feeder Pt presents with daughter who prepares most of the meals Physical activity: sedentary Food frequency fruits: 0-1/day protein: beans, poultry, beef, cottage cheese ve/d starches > 20/d dairy: 4 glasses/d pastreis : daily >2 BS Monitoring Most Recent Diabetes Results: Cholesterol 235 mg/dL (<200) H 02/28/25 HDL Cholesterol 36 mg/dL (>40) L 02/28/25 Triglycerides 296 mg/dL (<150) H 02/28/25 LSF-Zstnrwq-Hw.Jeor Equation Height: 5 ft 4 in Weight: 214 lb Resting Metabolic Rate: 1509.84 Calculated Activity Level: Sedentary Calories Needed to Maintain Weight: 1811.81 Diagnosis Nutrition problem #1: altered nutrition labs As related to (etiology) #1: excess energy intake (empty calories snacks) As evidenced by (sign/symptom) #1: knowledge deficit of diet [facility] Medical History HLD (hyperlipidemia) Multinodular goiter Peripheral neuropathy History of short term memory loss Port-A-Cath in place Smoker Family history of prostate cancer in father Leg swelling Shortness of breath Effusion of left knee Weakness Fall Thyroid nodule Adrenal adenoma Vision changes Diabetes History of palpitations History of unsteady gait Low back pain Arthritis Mild heartburn Hx of renal calculi Vaginal yeast infection Encounter to discuss test results 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 Cervical cancer screening Generalized anxiety disorder Type 2 diabetes mellitus with hyperglycemia History of anal fissures Peripheral vascular disease Urinary incontinence Hypertension COPD (chronic obstructive pulmonary disease) Hypercholesterolemia Surgical History H/O total mastectomy of left breast (12/21/22) History of biopsy History of endometrial ablation Hx of tubal ligation History of tonsillectomy History of appendectomy History of cholecystectomy History of bladder surgery History of left knee replacement Family History Mother History of breast cancer Father Prostate CA Brother No problems noted. Brother No problems noted. Daughter No problems noted. Social History Household Members: Family Household Members Other:: Daughter, -05/2024 Housing: House Do you presently have visiting nurse or other home services: No Alcohol intake: current Alcohol intake frequency: holidays/special occasions only Comment: Fell 08/2022, leg weakness 1 glass on holidays Patient Tobacco Use Status: Current everyday Tobacco user Tobacco use type: Cigarette Cigarette Packs Per Day: 0.5 Cigarettes Per Day: 10 Years Smoked: 40, 1 pack a day e-Cigarette/Vaping Use: Never Used Second Hand Smoke Exposure: Yes service: No Current occupational status: disabled Cognitive needs: No Hearing needs: No Vision needs: Yes Female Reproductive History Menstrual Age of Menarche: 10 Assessment & Plan Assessment & Plan (1) Type 2 diabetes mellitus with hyperglycemia: Code(s): E11.65 - Type 2 diabetes mellitus with hyperglycemia Category: Medical Qualifiers: 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 Qualified Code(s): E11.65 - Type 2 diabetes mellitus with hyperglycemia; 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 Plan: Wt: 97 Kg ( 03/15 ) Est kcal needs as per MSJ: 1800 (40% carb, 30% protein/fat) Est fluid needs as per 25-30 ml/d: 2900 Est prot per day as per 1 g/kg bw: 100 Recommend fiber intake : 8-10 g per day and gradually increase to 25-28 g per day for women and 35-38 g for men or as tolerated Recommend sodium intake per day : less than 2000 mg Educated patient on: ( R = reviewed V = verbalizes understanding N/R = needs review N/A = not applicable Food sources of carbohydrate, adequate serving sizes and its role in various health conditions: R Differences between complex carbohydrates a simple carbohydrates, role of fiber in diet: R Lean protein sources of foods: R Differences between types of fats and role in diet (mono on saturated fat fatty acids, saturated fatty acids, trans fats): R V N/R Food sources of sodium in salt and healthy modifications for heart health in kidney health: R V R/V Vitamins and minerals: R V N/R Healthy plate method concept: R V N/R Physical activity: Benefits a precaution: R V N/R Hypoglycemia protocol (rule of 15): R V N/R Dietary prevention of Hyperglycemia: R Patient Instructions: Have 1 cup of cottage cheese and fruit at lunch instead of skipping the meal Work on reducing total carbs to less than 45 g at meal and less than 20 g as snack see meal ideas Coding Level of Care Code Nutr Indiv Intake (84641) Diagnoses Type 2 diabetes mellitus with hyperglycemia, with long-term current use of insulin E11.65; Z79.4 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
[2025-03-07 12:43] VITALS: BMI 36.8
[2025-03-07 12:44] VITALS: BMI 36.7
--- OUTSIDE RECORDS SUMMARY | 2025-03-07 14:08 | XMS_ITS | Patient Health Record ---
Author Organization [facility] Address [address] [place] [address] Care Team Providers Care Indirect Sales Exec Name Role Phone Po Concepción MADDEN Primary Care Provider Ravindra Arora [phone] Allergies Allergen (clinical drug ingredient) Drug/Non Drug [...] Status Risk Notes Problem Colon cancer screening (614150504) Colon cancer screening (Z12.11) Active confirmed Problem Gastroesophageal reflux disease (disorder) (715486187) Chronic GERD (K21.9) Active confirmed Vital Signs Blood pressure diastolic 00 mm Hg 12/21/2024 Height 5 ft 4 in in 12/21/2024 Blood pressure systolic 00 mm Hg 12/21/2024 Weight 223 lbs 12/21/2024 BMI 38.27 kg/m2 12/21/2024 Encounters Encounter Location Date Provider Diagnosis [facility] [address] [place] [phone] 12/21/2024 Ravindra Putnam Colon cancer screening Z12.11 and Chronic GERD K21.9 [facility] [address] [place] [phone] 12/24/2024 Ravindra Putnam Assessments Encounter Date Diagnosis [...] She was instructed to speak with her construction craft laborer regarding instructions in regard to adjusting her [...] She was instructed to speak with her construction craft laborer regarding instructions in regard to adjusting her [...] Provider Name:Ravindra Putnam , 04/10/2025 07:30:00 AM, [address] [place] [address] , [place], [place], [phone], Insurance Providers Payer Name Payer Address Payer Phone Subscriber Number Group Number Insured Name Patient Relationship to Insured Coverage Start Date Coverage End Date [facility] [address] Attn Claims ZEUS [place] [id number] THAO CHARLTON Self - patient is the insured Medical (General) History Medical History History ICD Code Thyroid nodule IDDM Peripheral vascular disease Urinary incontinence COPD Anxiety disorder Hypertension Renal calculi TIA Left breast cancer 03/2021 with chemo and surgery-Dr. Mitchell Reports a negative colonscopy in approx 2004 Denies NC,CVA,renal disease Neuropathy GERD Hyperlipidemia Surgical History Surgery Date(Month/Year) Mastectomy of left breast 2022-Dr. Roxann andersen Endometrial ablation Tubal ligation Tonsillectomy Appendectomy Cholecystectomy Bladder surgery Left knee replacement 2006
--- OUTSIDE RECORDS SUMMARY | 2025-03-07 14:08 | XMS_ITS | Clinical Summary ---
Author Organization [facility] Address [address] [place] [address] Care Team Providers Care Search Marketing Coordinator Name Role Phone Unavailable Primary Care Provider [...] mcg/actuation inhalerIndicati ons:COPD (chronic obstructive pulmonary disease) ([facility]Influ mg A Inhale 2 Puffs into the lungs every 4 (four) hours as needed for shortness of breath or wheezing. 1 Inhaler 3 5 Active traZODone (DESYREL) 50 mg tabletIndicatio ns:Insomnia,Dep ression Take 1 Tab by mouth nightly at bedtime. 30 Tab 0 5 Active aspirin 325 mg tabletIndicatio ns:HTN (hypertension), COPD (chronic obstructive pulmonary disease) ([facility]) Take 1 Tab by mouth once daily. 30 Tab 3 5 Active NIFEdipine (ADALAT CC) 60 mg 24 hr tabletIndicatio ns:HTN (hypertension) Take 1 Tab by mouth once daily. Take on an empty stomach. Swallow whole. Do not break, crush or chew. 30 Tab 3 5 Active predniSONE (DELTASONE) 10 mg tabletIndicatio ns:COPD (chronic obstructive pulmonary disease) ([facility]) Take 1 Tab by mouth once daily. 30 Tab 0 5 Active budesonide-form oterol (SYMBICORT) 80-4.5 mcg/actuation inhalerIndicati ons:COPD (chronic obstructive pulmonary disease) ([facility]) Inhale 2 Puffs into the lungs 2 (two) times daily. 1 Inhaler 3 5 Active albuterol (PROVENTIL) 2.5 mg /3 mL (0.083 %) nebulizer solutionIndicat ions:COPD (chronic obstructive pulmonary disease) ([facility]) Take 3 mL by nebulization every 6 [...] mcg/actuation aepbIndications :COPD (chronic obstructive pulmonary disease) ([facility]) Inhale 1 Inhaler into the lungs 2 (two) times daily. 1 Inhaler 6 5 Active clotrimazole-be tamethasone (LOTRISONE) 1-0.05 % lotionIndicatio ns:Rash Apply topically 2 (two) times daily. 30 mL 1 5 Active Active Problems Problem Noted Date Diagnosed Date Depression 01/28/2015 COPD (chronic obstructive pulmonary disease) ([facility]) 01/28/2015 Incontinence of urine in female 01/28/2015 [...] Plan of Treatment Not on file Insurance [place]
--- OUTSIDE RECORDS SUMMARY | 2025-03-07 14:08 | XMS_ITS ---
Author Organization [facility] Address [address] [place] [phone] Care Team Providers Care Veterinary Virologist Name Role Phone Po Concepción MADDEN Primary Care Provider Ravindra Arora [phone] REASON FOR VISIT appt PAT made Encounters Encounter Location Date Provider Diagnosis [facility] [address] [place] [phone] 12/24/2024 Ravindra Putnam Plan Of Treatment Next Appt Details Provider Name:Ravindra Putnam , 04/10/2025 07:30:00 AM, [address] [place] [address] , [place], [place], [phone], Progress Notes * THAO CHARLTON ADOB: [birth year] (64 yo F)Acc No.[id number]:12/24/2024 Patient:?THAO CHARLTON :1960???Age:64 Y???Sex:Female [address] [place] [address] * true * Date:? Generated for Anui med/Rosalee/eTransmitting on:?03/07/2025 02:08 PM EDT
== END ==
LOC: HO.ENCR 11:24
PROVIDERS: PCP Internal Medicine; Visit Provider Dietitian, Registered
DX: E11.65 Type 2 diabetes mellitus with hyperglycemia (principal); Z79.4 Long term (current) use of insulin

== ENCOUNTER 2025-03-07 13:07 | Outpatient (REF) | payer OTHER, SELFPAY ==
--- NOTE | ~2025-03-07 | US_ITS ---
EXAMINATION: US KIDNEY BILATERAL HISTORY: N39.46 - Mixed incontinence TECHNIQUE: Real-time grayscale ultrasound imaging of the kidneys was performed and images were reviewed. COMPARISON: Correlation is made with a CT of the abdomen with contrast dated 07/21/2080. FINDINGS: Right kidney: The right kidney measures 10.9 x 4.8 x 3.8 cm. Renal parenchymal echotexture and thickness are normal. There are no masses. There is no hydronephrosis or renal calculi. Left Kidney: The left kidney measures 11.6 x 5.5 x 4.0 cm. Renal parenchymal echotexture and thickness are normal. There is an 11 x 8 x 9 mm cyst in the interpolar region. There is no hydronephrosis or renal calculi. US/US renal BI IMPRESSION: 11 x 8 x 9 mm left renal cyst. Otherwise unremarkable renal ultrasound. Electronically signed by: Ravindra Roth MD 03/07/2025 02:34 PM EDT
--- OUTSIDE RECORDS SUMMARY | 2025-03-07 16:03 | XMS_ITS | Clinical Summary ---
Author Organization [facility] Address [address] [place] [address] Care Team Providers Care Edm Operator Name Role Phone Unavailable Primary Care [...] Depression 01/28/2015 COPD (chronic obstructive pulmonary disease) ([facility]) 01/28/2015 Incontinence of urine in female [...] Plan of Treatment Not on file Insurance [place]
--- OUTSIDE RECORDS SUMMARY | 2025-03-07 16:03 | XMS_ITS ---
Author Organization [facility] Address [address] [place] [address] Care Team Providers Care Bird Raiser Name Role Phone Po Concepción MADDEN Primary Care Provider Unavailvandana e Ravindra Putnam Unavailable [phone] Allergies Allergen (clinical drug ingredient) Drug/Non Drug [...] Status Risk Notes Problem Colon cancer screening (956632797) Colon cancer screening (Z12.11) Active confirmed Problem Gastroesophageal reflux disease (disorder) (692850327) Chronic GERD (K21.9) Active confirmed Vital Signs Blood pressure systolic 00 mm Hg 12/21/19 25 Blood pressure diastolic 00 mm Hg 025 Height 5 ft 4 in in 12/21/2024 Weight 223 lbs 12/21/2024 BMI 38.27 kg/m2 12/21/2024 Encounters Encounter Location Date Provider [facility] [address] [place] [phone] 12/21/2024 Ravindra Putnam Colon cancer screening Z12.11 [...] She was instructed to speak with her clubhouse attendant regarding instructions in regard to adjusting her [...] 12/21/2024 Chronic GERD (ICD-10 - K21.9) Overall, Taho is not having any particularly new nor [...] She was instructed to speak with her clubhouse attendant regarding instructions in regard to adjusting her [...] Provider Name:Ravindra Putnam , 04/10/2025 07:30:00 AM, [address] [place] [address], [phone], Progress Notes * LATESHA, THAO ADOB: [birth year] (64 yo F)Acc No.[id number]:12/21/2024 Progress Notes Patient:?LATESHA, THAO Dragan Provider:?Ravindra Putnam MD :1960???Age:64 Y???Sex:Female D ate:12/21/2024 Address:[address] [place], [place] [id number] Pcp:Concepción Reyes MD Subjective: * Chief Complaints: [...] She was instructed to speak with her clubhouse attendant regarding instructions in regard to adjusting her [...] Procedure Codes:?3017F COLOR ECTAL CA SCREEN DOC [id number] Pt scrn tbco and id as [id number] BP SCR NOT PRFRM REC REASON NOS * Preventive Medicine:? ??Counseling:?Care goal follow-up plan:?Above Normal BMI Follow-up?Giving encouragement to exercise,?BMI management provided?Yes.? ??Urinary Incontinence:?Urinary Incontinence?Assessment:?Present,?Plan of care documented:?Yes,?Type of plan of care:?Lifestyle interventions.? * Follow Up:?prn * * Sign off status: Completed true * Provider:?Ravindra Putnam MD Date:? 025 Generated for Anabell jovel/Rosalee/Lisa on:?03/07/2025 04:03 PM EDT History and Physical Notes * [...]
== END 2025-03-07 13:08 | disposition home or self-care (01) ==
LOC: HO.US 13:07
PROVIDERS: PCP Internal Medicine; Visit Provider Nurse Practitioner Family
DX: N39.46 Mixed incontinence (principal); E11.65 Type 2 diabetes mellitus with hyperglycemia; Z79.4 Long term (current) use of insulin; E04.2 Nontoxic multinodular goiter; D35.00 Benign neoplasm of unspecified adrenal gland; E78.2 Mixed hyperlipidemia; I10 Essential (primary) hypertension
CPT/HCPCS: 76775; 82947; 97802; 99212

== ENCOUNTER → 2025-03-07 13:10 | Outpatient (BNV) | payer OTHER, SELFPAY | PROVIDERS: PCP Internal Medicine; Visit Provider Radiology Diagnostic Radiology | DX: N28.1 Cyst of kidney, acquired (principal) | CPT/HCPCS: 76775 ==

== ENCOUNTER 2025-03-22 12:41 | Outpatient (AMB) | payer OTHER, SELFPAY ==
--- NOTE | 2025-03-22 13:04 | A.OFFVIS_ITS ---
Intake Visit Reasons: follow up/US/discuss treatment Intake Note: Patient is present for US/DISCUSS TREATMENT Urology Medication:MIRABEGRON Antibiotic Allergy:PENICILLINS, Blood Thinner:ASPIRIN Caterer Helper Required: No Allergies diclofenac [From Voltaren] Allergy (Severe, Verified 04/22/25 22:50) enlarged liver lisinopril [From Zestril] Allergy (Severe, Verified 04/22/25 22:50) Angioedema losartan Allergy (Severe, Verified 04/22/25 22:50) Angioedema omeprazole Allergy (Intermediate, Verified 04/22/25 22:50) elevated blood pressure Penicillins [PENICILLINS] Allergy (Intermediate, Verified 04/22/25 22:50) Facial Swelling oxybutynin [Oxybutynin] Adverse Reaction (Severe, Verified 04/22/25 22:50) body twitching gabapentin Adverse Reaction (Intermediate, Verified 04/22/25 22:50) Hypertension metformin Adverse Reaction (Intermediate, Verified 04/22/25 22:50) Diarrhea duloxetine Adverse Reaction (Intermediate, Uncoded 04/22/25 22:50) tachycardia HPI Comments Details: Sarah is a pleasant female. She is a patient of Dr. Reyes. She is seen for the following urology conditions - mixed incontinence Accompanied by daughter Longstanding issues Used to respond well to oxybutynin Had chemotherapy for breast cancer and was not responsive Currently on VESIcare with significant dry mouth Has cough, laugh, sneeze incontinence Previously had InterStim placement [address] Govea [facility] Medical History Generalized anxiety disorder TIA (transient ischemic attack) (~12/2024) Recent bereavement Environmental and seasonal allergies HLD (hyperlipidemia) Multinodular goiter Peripheral neuropathy History of short term memory loss Port-A-Cath in place Smoker Family history of prostate cancer in father Leg swelling Shortness of breath Effusion of left knee Weakness Fall Thyroid nodule Adrenal adenoma Vision changes Diabetes History of palpitations History of unsteady gait Low back pain Arthritis Mild heartburn Hx of renal calculi Vaginal yeast infection Encounter to discuss test results 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 Cervical cancer screening Type 2 diabetes mellitus with hyperglycemia History of anal fissures Peripheral vascular disease Urinary incontinence Hypertension COPD (chronic obstructive pulmonary disease) Hypercholesterolemia Surgical History Hx of colonoscopy H/O total mastectomy of left breast (12/21/22) History of biopsy History of endometrial ablation Hx of tubal ligation History of tonsillectomy History of appendectomy History of cholecystectomy History of bladder surgery History of left knee replacement Family History Mother History of breast cancer Father Prostate CA Brother No problems noted. Brother No problems noted. Daughter No problems noted. Social History Household Members: Family Household Members Other:: adult daughter [facility] Are you a primary health care / medical job titles to a significant other at home: No Do you presently have visiting nurse or other home services: Yes (MARTÍNEZ) 75 years or older and lives alone: No Alcohol intake: current Alcohol intake frequency: holidays/special occasions only Comment: Fell 08/2022, leg weakness 1 glass on holidays Patient Tobacco Use Status: Current everyday Tobacco user Tobacco use type: Cigarette Cigarette Packs Per Day: 1 Years Smoked: 40, 1 pack a day e-Cigarette/Vaping Use: Former Use Second Hand Smoke Exposure: No service: No Current occupational status: disabled Cognitive needs: No Hearing needs: No Vision needs: Yes Female Reproductive History Menstrual Age of Menarche: 10 Review of Systems Const Denies chills and Denies fever(s) Card Reports no additional complaints and Denies syncope Resp Denies cough GI Denies abdominal pain and Denies heartburn Reports as per HPI and Denies change in libido Neuro Denies syncope Psych Denies change in libido Endo Denies change in libido Physical Exam Const General: cooperative, healthy appearing, comfortable and no acute distress Orientation/consciousness: patient oriented x3 HEENT Face and sinus: Yes normal facial exam Mouth: moist mucous membranes Neck Neck: Yes normal visual inspection, Yes full ROM and Yes trachea midline Chest Chest palpation & inspection: normal inspection of the chest Resp Effort & Inspection: normal respiratory effort, able to speak in complete sentences and no respiratory distress GI Inspection: Yes normal to inspection Back/Spine/Pelvis Cervical Spine: normal cervical lordosis Thoracic/Lumbar Spine: thoracic and lumbar spine normal to inspection Skin General skin exam: no rashes or lesions noted Neuro General: patient oriented x3, gait normal, tone normal and moves all extremities Extrem General: Yes normal to inspection and Yes capillary refill normal Assessment & Plan Assessment & Plan (1) Urinary incontinence, mixed: Code(s): N39.46 - Mixed incontinence Category: Medical (2) Urge incontinence: Code(s): N39.41 - Urge incontinence Category: Medical (3) Urinary incontinence: Code(s): R32 - Unspecified urinary incontinence Category: Medical Plan Trial of Gemtesa Follow-up appointment [address] Rhodes for mixed urinary incontinence assessment May need replacement of InterStim Possible bulkamid Medications: New vibegron 75 mg PO DAILY 30 tabs 1RF 30 days N39.46 - Mixed incontinence Patient Instructions: This note is constructed using voice recognition software. While every effort has been made to ensure accuracy human resource management instructor errors may have been included. Imaging studies, laboratory and physical exam results were discussed and reviewed in detail. No major barriers to patient understanding were identified. An opportunity to ask questions regarding the treatment plan was provided. All questions were answered. The patient expressed understanding and agreement with the above treatment plan. The patient is aware they should contact our office by phone for worsening of their current condition or the appearance of new urologic symptoms. Compliance is encouraged with any medications and followup testing that is ordered. It is a privilege to participate in the urologic care of your patient. If you h ave any questions or concerns regarding treatment for the above conditions, or other urologic issues, please do not hesitate to contact me. The office telephone contact is [phone]. Sincerely, Dr Javid Goins MD, [facility] - Urology Compassionate Specialist Care for the Genitourinary System Coding Level of Care Code Est Pt Level 4 (88326) Complex EM visit Add On G2211 Diagnoses Urinary incontinence, mixed N39.46 Urge incontinence N39.41 Urinary incontinence R32
--- OUTSIDE RECORDS SUMMARY | 2025-03-22 13:06 | XMS_ITS ---
Author Organization [facility] Address [address] [place] [address] Care Team Providers Care Management Lecturer Name Role Phone Po Concepción MADDEN Primary Care Provider Unavailvandana e Ravindra Putnam Unavailable [phone] Allergies Allergen (clinical drug ingredient) Drug/Non Drug [...] Status Risk Notes Problem Colon cancer screening (460324173) Colon cancer screening (Z12.11) Active confirmed Problem Gastroesophageal reflux disease (disorder) (080958207) Chronic GERD (K21.9) Active confirmed Vital Signs Blood pressure systolic 00 mm Hg 12/21/19 25 Blood pressure diastolic 00 mm Hg 025 Height 5 ft 4 in in 12/21/2024 Weight 223 lbs 12/21/2024 BMI 38.27 kg/m2 12/21/2024 Encounters Encounter Location Date Provider Diagnosis [facility] [address] [place] [phone] 12/21/2024 Ravindra Putnam Colon cancer screening Z12.11 [...] She was instructed to speak with her aluminum hydroxide process operator regarding instructions in regard to adjusting [...] She was instructed to speak with her aluminum hydroxide process operator regarding instructions in regard to adjusting [...] Provider Name:Ravindra Putnam , 04/10/2025 07:30:00 AM, [address] [place] [address], [phone], Progress Notes * LATESHA, THAO ADOB: [birth year] (64 yo F)Acc No.[id number]:12/21/2024 Progress Notes Patient:?LATESHA, THAO Dragan Provider:?Ravindra Putnam MD :1960???Age:64 Y???Sex:Female D ate:12/21/2024 Address:[address] [place], [place] [phone] Pcp:Concepción Reyes MD Subjective: * Chief Complaints: [...] She was instructed to speak with her aluminum hydroxide process operator regarding instructions in regard to adjusting [...] Procedure Codes:?3017F COLOR ECTAL CA SCREEN DOC [id number] Pt scrn tbco and id as [id number] BP SCR NOT PRFRM REC REASON NOS * Preventive Medicine:? ??Counseling:?Care goal follow-up plan:?Above Normal BMI Follow-up?Giving encouragement to exercise,?BMI management provided?Yes.? ??Urinary Incontinence:?Urinary Incontinence?Assessment:?Present,?Plan of care documented:?Yes,?Type of plan of care:?Lifestyle interventions.? * Follow Up:?prn * * Sign off status: Completed true * Provider:?Ravindra Putnam MD Date:? 025 Generated for Anabell jovel/Rosalee/Lisa on:?03/22/2025 01:06 PM EDT History and Physical Notes * [...]
--- OUTSIDE RECORDS SUMMARY | 2025-03-22 13:06 | XMS_ITS | Clinical Summary ---
Author Organization [facility] Address [address] [place] [address] Care Team Providers Care Mid Level Clinician Name Role Phone Unavailable Primary Care Provider [...] mcg/actuation inhalerIndicati ons:COPD (chronic obstructive pulmonary disease) ([facility]),Influ mg A Inhale 2 Puffs into the lungs every 4 (four) hours as needed for shortness of breath or wheezing. 1 Inhaler 3 5 Active traZODone (DESYREL) 50 mg tabletIndicatio ns:Insomnia,Dep ression Take 1 Tab by mouth nightly at bedtime. 30 Tab 0 5 Active aspirin 325 mg tabletIndicatio ns:HTN (hypertension), COPD (chronic obstructive pulmonary disease) ([facility]) Take 1 Tab by mouth once daily. 30 Tab 3 5 Active NIFEdipine (ADALAT CC) 60 mg 24 hr tabletIndicatio ns:HTN (hypertension) Take 1 Tab by mouth once daily. Take on an empty stomach. Swallow whole. Do not break, crush or chew. 30 Tab 3 5 Active predniSONE (DELTASONE) 10 mg tabletIndicatio ns:COPD (chronic obstructive pulmonary disease) ([facility]) Take 1 Tab by mouth once daily. 30 Tab 0 5 Active budesonide-form oterol (SYMBICORT) 80-4.5 mcg/actuation inhalerIndicati ons:COPD (chronic obstructive pulmonary disease) ([facility]) Inhale 2 Puffs into the lungs 2 (two) times daily. 1 Inhaler 3 5 Active albuterol (PROVENTIL) 2.5 mg /3 mL (0.083 %) nebulizer solutionIndicat ions:COPD (chronic obstructive pulmonary disease) ([facility]) Take 3 mL by nebulization [...] mcg/actuation aepbIndications :COPD (chronic obstructive pulmonary disease) ([facility]) Inhale 1 Inhaler into the lungs 2 (two) times daily. 1 Inhaler 6 5 Active clotrimazole-be tamethasone (LOTRISONE) 1-0.05 % lotionIndicatio ns:Rash Apply topically 2 (two) times daily. 30 mL 1 5 Active Active Problems Problem Noted Date Diagnosed Date Depression 01/28/2015 COPD (chronic obstructive pulmonary disease) ([facility]) 01/28/2015 Incontinence of urine in female 01/28/2015 HTN (hypertension) 01/28/2015 Influenza A 01/28/2015 Insomnia 01/28/2015 Rash 01/28/2015 Immunizations Immunization Administration Dates Next Due INFLUENZA, SEASONAL, INJECTABLE 01/23/2015 PNEUMOCOCCAL POLYSACCHARIDE PPV23 (Pneumovax 23) 01/23/2015 Social History Tobacco Use Types Packs/Day [...] Plan of Treatment Not on file Insurance [place]
--- OUTSIDE RECORDS SUMMARY | 2025-03-22 13:06 | XMS_ITS | Patient Health Record ---
Author Organization [facility] Address [address] [place] [address] Care Team Providers Care Malt House Supervisor Name Role Phone Po Concepción MADDEN Primary Care Provider Ravindra Arora [phone] Allergies Allergen (clinical drug ingredient) Drug/Non Drug [...] Status Risk Notes Problem Colon cancer screening (864506615) Colon cancer screening (Z12.11) Active confirmed Problem Gastroesophageal reflux disease (disorder) (149896226) Chronic GERD (K21.9) Active confirmed Vital Signs Blood pressure diastolic 00 mm Hg 12/21/2024 Height 5 ft 4 in in 12/21/2024 Blood pressure systolic 00 mm Hg 12/21/2024 Weight 223 lbs 12/21/2024 BMI 38.27 kg/m2 12/21/2024 Encounters Encounter Location Date Provider Diagnosis [facility] [address] [place] [phone] 12/21/2024 Ravindra Putnam Colon cancer screening Z12.11 and Chronic GERD K21.9 [facility] [address] [place] [phone] 12/24/2024 Ravindra Putnam Assessments Encounter Date Diagnosis [...] She was instructed to speak with her drier tender naphthalene regarding instructions in regard to adjusting her [...] She was instructed to speak with her drier tender naphthalene regarding instructions in regard to adjusting her [...] Name:Ravindra Putnam , 04/10/2025 07:30:00 AM, [address] [place] [address] , [place], [place], [phone], Insurance Providers Payer Name Payer Address Payer Phone Subscriber Number Group Number Insured Name Patient Relationship to Insured Coverage Start Date Coverage End Date [facility] [address] Attn Claims ZEUS Young [id number] THAO CHARLTON Self - patient is the insured Medical (General) History Medical History History ICD Code Thyroid nodule IDDM Peripheral vascular disease Urinary incontinence COPD Anxiety disorder Hypertension Renal calculi TIA Left breast cancer 03/2021 with chemo and surgery-Dr. Mitchell Reports a negative colonscopy in approx 2004 Denies [place],CVA,renal disease Neuropathy GERD Hyperlipidemia Surgical History Surgery Date(Month/Year) Mastectomy of left breast 2022-Dr. Roxann andersen Endometrial ablation Tubal ligation Tonsillectomy Appendectomy Cholecystectomy Bladder surgery Left knee replacement 2006
--- OUTSIDE RECORDS SUMMARY | 2025-03-22 13:06 | XMS_ITS ---
Author Organization [facility] Address [address] [place] [address] Care Team Providers Care Youth Career Specialist Name Role Phone Po Concepción MADDEN Primary Care Provider Ravindra Arora [phone] REASON FOR VISIT appt PAT made Encounters Encounter Location Date Provider Diagnosis [facility] [address] [place] [phone] 12/24/2024 Ravindra Putnam Plan Of Treatment Next Appt Details Provider Name:Ravindra Putnam , 04/10/2025 07:30:00 AM, [address] [place] [address] , [place], [place], [phone], Progress Notes * THAO CHARLTON ADOB: [birth year] (64 yo F)Acc No.[id number]:12/24/2024 Patient:?THAO CHARLTON :1960???Age:64 Y???Sex:Female [address] [place] [place] [address] * true * Date:? Generated for Anui med/Rosalee/eTransmitting on:?03/22/2025 01:06 PM EDT
== END 2025-03-22 13:30 | disposition home or self-care (01) ==
LOC: HO.HUSH 12:42
PROVIDERS: PCP Internal Medicine; Visit Provider Urology
DX: N39.46 Mixed incontinence (principal)
CPT/HCPCS: 99214; G2211

== ENCOUNTER → 2025-03-22 12:41 | Outpatient (BNVA) | payer OTHER, SELFPAY | PROVIDERS: PCP Internal Medicine; Visit Provider Urology | DX: N39.46 Mixed incontinence (principal) | CPT/HCPCS: 99212 ==

== ENCOUNTER 2025-03-28 | Outpatient (REF) | payer OTHER, SELFPAY ==
--- OUTSIDE RECORDS SUMMARY | 2025-03-26 08:34 | XMS_ITS | Patient Health Record ---
Author Organization [facility] Address [address] [place] [address] Care Team Providers Care Batchmaker Name Role Phone Po Concepción MADDEN Primary Care Provider Ravindra Arora [phone] Allergies Allergen (clinical drug ingredient) Drug/Non Drug [...] Status Risk Notes Problem Colon cancer screening (587661258) Colon cancer screening (Z12.11) Active confirmed Problem Gastroesophageal reflux disease (disorder) (710901279) Chronic GERD (K21.9) Active confirmed Vital Signs Blood pressure diastolic 00 mm Hg 12/21/2024 Height 5 ft 4 in in 12/21/2024 Blood pressure systolic 00 mm Hg 12/21/2024 Weight 223 lbs 12/21/2024 BMI 38.27 kg/m2 12/21/2024 Encounters Encounter Location Date Provider Diagnosis [facility] [address] [place] [phone] 12/21/2024 Ravindra Putnam Colon cancer screening Z12.11 and Chronic GERD K21.9 [facility] [address] [place] [phone] 12/24/2024 Ravindra Putnam Assessments Encounter Date Diagnosis [...] She was instructed to speak with her solution maker regarding instructions in regard to adjusting her [...] She was instructed to speak with her solution maker regarding instructions in regard to adjusting her [...] Provider Name:Ravindra Putnam , 04/10/2025 07:30:00 AM, [address] [place] [address] , [place], [place], [phone], Insurance Providers Payer Name Payer Address Payer Phone Subscriber Number Group Number Insured Name Patient Relationship to Insured Coverage Start Date Coverage End Date [facility] [address] Attn Claims ZEUS Young [id number] THAO CHARLTON Self - patient is the insured Medical (General) History Medical History History ICD Code Thyroid nodule IDDM Peripheral vascular disease Urinary incontinence COPD Anxiety disorder Hypertension Renal calculi TIA Left breast cancer 03/2021 with chemo and surgery-Dr. Mitchell Reports a negative colonscopy in approx 2004 Denies [place],CVA,renal disease Neuropathy GERD Hyperlipidemia Surgical History Surgery Date(Month/Year) Mastectomy of left breast 2022-Dr. Roxann andersen Endometrial ablation Tubal ligation Tonsillectomy Appendectomy Cholecystectomy Bladder surgery Left knee replacement 2006
--- OUTSIDE RECORDS SUMMARY | 2025-03-26 08:35 | XMS_ITS ---
Author Organization [facility] Address [address] [place] [address] Care Team Providers Care Glass Glazier Name Role Phone Po Concepción MADDEN Primary Care Provider Unavailvandana e Ravindra Putnam Unavailable [phone] Allergies Allergen (clinical drug ingredient) Drug/Non Drug [...] Status Risk Notes Problem Colon cancer screening (332972915) Colon cancer screening (Z12.11) Active confirmed Problem Gastroesophageal reflux disease (disorder) (426933604) Chronic GERD (K21.9) Active confirmed Vital Signs Blood pressure systolic 00 mm Hg 12/21/19 25 Blood pressure diastolic 00 mm Hg 025 Height 5 ft 4 in in 12/21/2024 Weight 223 lbs 12/21/2024 BMI 38.27 kg/m2 12/21/2024 Encounters Encounter Location Date Provider Diagnosis [facility] [address] [place] [phone] 12/21/2024 Ravindra Putnam Colon cancer screening Z12.11 [...] She was instructed to speak with her spa experience coordinator regarding instructions in regard to adjusting her [...] hold off on that at this time. hTao and Maurice were both comfortable with this [...] She was instructed to speak with her spa experience coordinator regarding instructions in regard to adjusting her [...] Provider Name:Ravindra Putnam , 04/10/2025 07:30:00 AM, [address] [place] [id number], Progress Notes * LATESHA, THAO ADOB: [birth year] (64 yo F)Acc No.[id number]:12/21/2024 Progress Notes Patient:?LATESHA, THAO Dragan Provider:?Ravindra Putnam MD :1960???Age:64 Y???Sex:Female D ate:12/21/2024 Address:[address] [place], [place] [phone] Pcp:Concepción Reyes MD Subjective: * Chief Complaints: [...] She was instructed to speak with her spa experience coordinator regarding instructions in regard to adjusting her [...] Procedure Codes:?3017F COLOR ECTAL CA SCREEN DOC [id number] Pt scrn tbco and id as [id number] BP SCR NOT PRFRM REC REASON NOS * Preventive Medicine:? ??Counseling:?Care goal follow-up plan:?Above Normal BMI Follow-up?Giving encouragement to exercise,?BMI management provided?Yes.? ??Urinary Incontinence:?Urinary Incontinence?Assessment:?Present,?Plan of care documented:?Yes,?Type of plan of care:?Lifestyle interventions.? * Follow Up:?prn * * Sign off status: Completed true * Provider:?Ravindra Putnam MD Date:? 025 Generated for Anabell jovel/Rosalee/Lisa on:?03/26/2025 08:34 AM EDT History and Physical Notes * [...]
--- OUTSIDE RECORDS SUMMARY | 2025-03-26 08:35 | XMS_ITS | Clinical Summary ---
Author Organization [facility] Address [address] [place] [address] Care Team Providers Care Manager Mountain Name Role Phone Unavailable Primary Care Provider [...] mcg/actuation inhalerIndicati ons:COPD (chronic obstructive pulmonary disease) ([facility]),Influ mg A Inhale 2 Puffs into the lungs every 4 (four) hours as needed for shortness of breath or wheezing. 1 Inhaler 3 5 Active traZODone (DESYREL) 50 mg tabletIndicatio ns:Insomnia,Dep ression Take 1 Tab by mouth nightly at bedtime. 30 Tab 0 5 Active aspirin 325 mg tabletIndicatio ns:HTN (hypertension), COPD (chronic obstructive pulmonary disease) ([facility]) Take 1 Tab by mouth once daily. 30 Tab 3 5 Active NIFEdipine (ADALAT CC) 60 mg 24 hr tabletIndicatio ns:HTN (hypertension) Take 1 Tab by mouth once daily. Take on an empty stomach. Swallow whole. Do not break, crush or chew. 30 Tab 3 5 Active predniSONE (DELTASONE) 10 mg tabletIndicatio ns:COPD (chronic obstructive pulmonary disease) ([facility]) Take 1 Tab by mouth once daily. 30 Tab 0 5 Active budesonide-form oterol (SYMBICORT) 80-4.5 mcg/actuation inhalerIndicati ons:COPD (chronic obstructive pulmonary disease) ([facility]) Inhale 2 Puffs into the lungs 2 (two) times daily. 1 Inhaler 3 5 Active albuterol (PROVENTIL) 2.5 mg /3 mL (0.083 %) nebulizer solutionIndicat ions:COPD (chronic obstructive pulmonary disease) ([facility]) Take 3 mL by nebulization [...] mcg/actuation aepbIndications :COPD (chronic obstructive pulmonary disease) ([facility]) Inhale 1 Inhaler into the lungs 2 (two) times daily. 1 Inhaler 6 5 Active clotrimazole-be tamethasone (LOTRISONE) 1-0.05 % lotionIndicatio ns:Rash Apply topically 2 (two) times daily. 30 mL 1 5 Active Active Problems Problem Noted Date Diagnosed Date Depression 01/28/2015 COPD (chronic obstructive pulmonary disease) ([facility]) 01/28/2015 Incontinence of urine in female [...] Plan of Treatment [place] on file [place]
--- OUTSIDE RECORDS SUMMARY | 2025-03-26 08:35 | XMS_ITS ---
Author Organization [facility] Address [address] [place] [address] Care Team Providers Care Rail Setter Name Role Phone Po Concepción MADDEN Primary Care Provider Ravindra Arora [phone] REASON FOR VISIT appt PAT made Encounters Encounter Location Date Provider Diagnosis [facility] [address] [place] [phone] 12/24/2024 Ravindra Putnam Plan Of Treatment Next Appt Details Provider Name:Ravindra Putnam , 04/10/2025 07:30:00 AM, [address] [place] [address] , [place], [place], [phone], Progress Notes * THAO CHARLTON ADOB: [birth year] (64 yo F)Acc No.[id number]:12/24/2024 Patient:?THAO CHARLTON :1960???Age:64 Y???Sex:Female [address] [place] [address] * true * Date:? Generated for Anui med/Rosalee/eTransmitting on:?03/26/2025 08:35 AM EDT
--- NOTE | ~2025-03-28 | XR_ITS ---
EXAMINATION: XR CHEST CLINICAL INFORMATION: COPD, Productive cough COMPARISON: 09/03/2022. CT PA 09/22/2023. TECHNIQUE: 2 views of the chest were obtained. FINDINGS: Right-sided chest port in place with tip terminating at the cavoatrial junction. This is well positioned. Cardiac silhouette is partially obscured. There may be mild cardiac enlargement. Mediastinal and hilar contours appear normal. There has been development of small right greater than left layering pleural effusions with underlying parenchymal opacities, likely passive/compressive atelectasis. There has been development of hazy interstitial markings throughout both lungs, with subtle Jos B lines suggesting mild interstitial pulmonary edema. No pneumothorax. 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 Degenerative changes throughout the spine. No soft tissue abnormalities. XR/XR chest 2V IMPRESSION: 1. Right chest port in good position. 2. Interval development of mild interstitial pulmonary edema, and small right greater than left layering pleural effusions with associated passive lower lobe atelectasis. Pneumonia is not excluded in the appropriate clinical setting. 3. There is no pneumothorax. Electronically signed by: Inocencio Chambers MD 03/28/2025 01:41 PM EDT
[2025-03-28 12:14] VITALS: BMI 36.7
[2025-03-28 12:23] VITALS: BP 138/67; PULSE 91; RESP 16; O2SAT 95
--- NOTE | 2025-03-28 12:46 | P.CONAN_ITS ---
HPI - Anesthesia Eval Consult details Narrative: 65yo F for Colonoscopy COPD: Albuterol nebulizer q4 hours for the past 2 weeks. Prior to that only using albuterol inhaler 1 x daily. +producitve cough - sputum dark and thick per patient Able to speak in full sentences Will obtain CXR and f/u with PCP prior to colonoscopy Port in situ Right chest. Last used >1 year ago DM2: FBS ~ 120s Anesthesia Pre-Procedure Meds Is the patient on any of the following meds?: GLP1/DPP4 PMFSH Active Problems Active Problems: All Active Problems Encounter for well woman exam with routine gynecological exam (Acute) Urinary incontinence, mixed (Acute) Right sided weakness (Acute) Arthritis of left hip (Acute) Chronic pain syndrome (Acute) Localized swelling of both lower legs (Acute) Left knee pain (Acute) Frequency of micturition (Acute) Dysphagia (Acute) Palpitations (Acute) Bronchitis (Acute) Groin pain, chronic, left (Acute) S/P left mastectomy (Acute) Colon cancer screening (Acute) Type 2 diabetes mellitus with hyperglycemia (Acute) HER2-positive carcinoma of breast (Acute) Tinea pedis (Acute) Annual physical exam (Acute) Erythrocytosis (Acute) Insomnia (Acute) Left hip pain (Acute) Tobacco abuse (Acute) Mammogram declined (Acute) Colonoscopy refused (Acute) RLS (restless legs syndrome) (Acute) Obesity (BMI 30-39.9) (Acute) Urge incontinence (Acute) HLD (hyperlipidemia) (Acute) Urinary incontinence (Acute) Multinodular goiter (Acute) Peripheral neuropathy (Acute) Family history of prostate cancer in father (Acute) Invasive ductal carcinoma of left breast (Acute) Thyroid nodule (Acute) Adrenal adenoma (Acute) Peripheral vascular disease (Acute) Hypertension (Acute) COPD (chronic obstructive pulmonary disease) (Acute) Hypercholesterolemia (Acute) Past Medical History Medical History (Updated 03/28/25 @ 12:38 by Kamryn Freedman RN) TIA (transient ischemic attack) (~12/2024) Recent bereavement Environmental and seasonal allergies HLD (hyperlipidemia) Multinodular goiter Peripheral neuropathy History of short term memory loss Port-A-Cath in place Smoker Family history of prostate cancer in father Leg swelling Shortness of breath Effusion of left knee Weakness Fall Thyroid nodule Adrenal adenoma Vision changes Diabetes History of palpitations History of unsteady gait Low back pain Arthritis Mild heartburn Hx of renal calculi Vaginal yeast infection Encounter to discuss test results 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 Brother No problems noted. Daughter No problems noted. Family history of problems with anesthesia: No Surgical History Surgical History (Updated 03/28/25 @ 12:43 by Kamryn Freedman RN) Hx of colonoscopy H/O total mastectomy of left breast (12/21/22) History of biopsy History of endometrial ablation Hx of tubal ligation History of tonsillectomy History of appendectomy History of cholecystectomy History of bladder surgery History of left knee replacement History of Problems with Anesthesia: No (Requires nebulizer pre and post op) Social History Social History (Updated 03/28/25 @ 12:29 by Kamryn Freedman RN) Household Members: Family Household Members Other:: adult daughter Housing: House Are you a primary director of healthcare systems to a significant other at home: No Do you presently have visiting nurse or other home services: No 75 years or older and lives alone: No Alcohol intake: current Alcohol intake frequency: holidays/special occasions only Comment: Fell 08/2022, leg weakness 1 glass on holidays Patient Tobacco Use Status: Current everyday Tobacco user Tobacco use type: Cigarette Cigarette Packs Per Day: 1 Cigarettes Per Day: 20.0 Years Smoked: 40, 1 pack a day e-Cigarette/Vaping Use: Never Used Second Hand Smoke Exposure: Yes Use of substances other than those prescribed or required for medical reasons: No Advance Directives: No Advance Directives Information Provided: Yes Advance Directives on File: No Healthcare Proxy: No service: No Current occupational status: disabled Cognitive needs: No Hearing needs: No Vision needs: Yes Meds Allergies Allergy/AdvReac Type Severity Reaction Status Date / Time diclofenac [From Voltaren] Allergy Severe enlarged Verified 03/28/25 12:12 liver lisinopril [From Zestril] Allergy Severe Angioedema Verified 03/28/25 12:12 losartan Allergy Severe Angioedema Verified 03/28/25 12:12 omeprazole Allergy Intermediate elevated Verified 03/28/25 12:12 blood pressure Penicillins [PENICILLINS] Allergy Intermediate Facial Verified 03/28/25 12:12 Swelling oxybutynin [Oxybutynin] AdvReac Severe body Verified 03/28/25 12:12 twitching gabapentin AdvReac Intermediate Hypertensio Verified 03/28/25 12:12 n metformin AdvReac Intermediate Diarrhea Verified 03/28/25 12:12 duloxetine AdvReac Intermediate tachycardia Uncoded 03/28/25 12:12 Home Medications ?Medication ?Instructions ?Recorded ?Confirmed ?Last Taken ?Type acetaminophen 325 mg capsule 325 mg PO QID PRN Pain 09/01/22 03/28/25 Unknown History cyanocobalamin (vitamin B-12) 1,000 mcg PO DAILY 09/04/22 03/28/25 09/03/22 History 1,000 mcg tablet ferrous sulfate 325 mg (65 mg 325 mg PO FR@0900 08/09/24 03/28/25 Unknown History iron) tablet (Iron (ferrous sulfate)) zinc gluconate 50 mg tablet 50 mg PO DAILY 08/09/24 03/28/25 Unknown History Exam Height,Weight and Vital Signs: Height 5 ft 4 in Weight 97.069 kg Last Vital Signs Pulse 91 03/28/25 12:23 Resp 16 03/28/25 12:23 BP 138/67 03/28/25 12:23 Pulse Ox 95 03/28/25 12:23 O2 Del Method Room Air 03/28/25 12:23 Airway Mallampati Class: II TM Dist: >3cm Neck ROM: Limited (R/t left side mastectomy muscle) Loose/Missing/Broken Teeth: Yes (edentulous) Heart: RRR Lungs: Coarse and wheezes throughout, mild improvement with deep cough Assessment and Plan Assessment Anesthesia Assessment: Anesthesia Plan Discussed, Smoking Cess. Discussed and PAT Visit Final Anesthetic Review Family History of Problems with Anesthesia: No History of Problems with Anesthesia: No (Requires nebulizer pre and post op)
--- OUTSIDE RECORDS SUMMARY | 2025-05-20 13:07 | XMS_ITS | Patient Health Record ---
Author Organization [facility] Address [address] [place] [address] Care Team Providers Care Supervisor Offset Plate Preparation Name Role Phone Po Concepción MADDEN Primary Care Provider Ravindra Arora [phone] Allergies Allergen (clinical drug ingredient) Drug/Non Drug [...] Status Risk Notes Problem Colon cancer screening (567822386) Colon cancer screening (Z12.11) Active confirmed Problem Gastroesophageal reflux disease (disorder) (377164502) Chronic GERD (K21.9) Active confirmed Vital Signs Blood pressure diastolic 00 mm Hg 12/21/2024 Height 5 ft 4 in in 12/21/2024 Blood pressure systolic 00 mm Hg 12/21/2024 Weight 223 lbs 12/21/2024 BMI 38.27 kg/m2 12/21/2024 Encounters Encounter Location Date Provider Diagnosis [facility] [address] [place] [id number] 12/21/2024 Ravindra Putnam Colon cancer screening Z12.11 and Chronic GERD K21.9 [facility] [address] [place] [phone] 12/24/2024 Ravindra Putnam [facility] [address] [place] [phone] 04/03/2025 Ravindra Putnam Assessments Encounter Date Diagnosis [...] She was instructed to 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
--- OUTSIDE RECORDS SUMMARY | 2025-05-20 13:08 | XMS_ITS | Clinical Summary ---
Author Organization [facility] Address [address] [place] [address] Care Team Providers Care Hand Binder Cutter Name Role Phone Unavailable Primary Care Provider [...] mcg/actuation inhalerIndicati ons:COPD (chronic obstructive pulmonary disease) ([facility]),Influe nza A Inhale 2 Puffs into the lungs every 4 (four) hours as needed for shortness of breath or wheezing. 1 Inhaler 3 5 Active traZODone (DESYREL) 50 mg tabletIndicatio ns:Insomnia,Dep ression Take 1 Tab by mouth nightly at bedtime. 30 Tab 0 5 Active aspirin 325 mg tabletIndicatio ns:HTN (hypertension), COPD (chronic obstructive pulmonary disease) ([facility]) Take 1 Tab by mouth once daily. 30 Tab 3 5 Active NIFEdipine (ADALAT CC) 60 mg 24 hr tabletIndicatio ns:HTN (hypertension) Take 1 Tab by mouth once daily. Take on an empty stomach. Swallow whole. Do not break, crush or chew. 30 Tab 3 5 Active predniSONE (DELTASONE) 10 mg tabletIndicatio ns:COPD (chronic obstructive pulmonary disease) ([facility]) Take 1 Tab by mouth once daily. 30 Tab 0 5 Active budesonide-form oterol (SYMBICORT) 80-4.5 mcg/actuation inhalerIndicati ons:COPD (chronic obstructive pulmonary disease) ([facility]PLACED BY [facility]) Inhale 2 Puffs into the lungs 2 (two) times daily. 1 Inhaler 3 5 Active albuterol (PROVENTIL) 2.5 mg /3 mL (0.083 %) nebulizer solutionIndicat ions:COPD (chronic obstructive pulmonary disease) ([facility]) Take 3 mL by nebulization every [...] mcg/actuation aepbIndications :COPD (chronic obstructive pulmonary disease) ([facility]) Inhale 1 Inhaler into the lungs 2 (two) times daily. 1 Inhaler 6 5 Active clotrimazole-be tamethasone (LOTRISONE) 1-0.05 % lotionIndicatio ns:Rash Apply topically 2 (two) times daily. 30 mL 1 5 Active Active Problems Problem Noted Date Diagnosed Date Depression 01/28/2015 COPD (chronic obstructive pu lmonary disease) ([facility]) 01/28/2015 Incontinence of urine in [...] 86 01/28/2015 3:37 PM EDT Temperature 36.3 C (97.4 F) 01/28/2015 3:37 PM EDT Respiratory Rate 17 01/28/2015 3:37 PM EDT Oxygen Saturation - - Inhaled Oxygen Concentration - - Weight 117 kg (258 lb) 01/28/2015 3:37 PM EDT Height 162.6 cm (5' 4 ) 01/28/2015 3:37 PM EDT Body Mass Index 44.29 01/28/2015 3:37 PM EDT Plan of Treatment Not on file [place]
== END 2025-03-28 00:01 | disposition home or self-care (01) ==
LOC: HO.PAT
PROVIDERS: PCP Internal Medicine; Visit Provider Internal Medicine
DX: Z01.818 Encounter for other preprocedural examination (principal); J44.9 Chronic obstructive pulmonary disease, unspecified; R05.8 Other specified cough
CPT/HCPCS: 71046

== ENCOUNTER → 2025-03-28 13:28 | Outpatient (BNV) | payer OTHER, SELFPAY | PROVIDERS: PCP Internal Medicine; Visit Provider Radiology Diagnostic Radiology | DX: J44.9 Chronic obstructive pulmonary disease, unspecified (principal); R05.9 Cough, unspecified | CPT/HCPCS: 71046 ==

== ENCOUNTER 2025-03-28 14:24 | Outpatient (AMB) | payer OTHER, SELFPAY ==
--- NOTE | 2025-03-28 14:40 | MHC.OFFVIS ---
Vital Signs 03/28/25 14:41 Height 5 ft 4 in BP 140/62 H Blood Pressure Location Rt brachial Position Sitting Pulse 99 Pulse Source Monitor Intake Visit Reasons: f/u after Holter monitor colonoscopy clearance Technical Applications Scientist Required: No Medical Office Technology Instructor: Medical Office Technology Instructor Present Allergies diclofenac [From Voltaren] Allergy (Severe, Verified 03/28/25 14:43) enlarged liver lisinopril [From Zestril] Allergy (Severe, Verified 03/28/25 14:43) Angioedema losartan Allergy (Severe, Verified 03/28/25 14:43) Angioedema omeprazole Allergy (Intermediate, Verified 03/28/25 14:43) elevated blood pressure Penicillins [PENICILLINS] Allergy (Intermediate, Verified 03/28/25 14:43) Facial Swelling oxybutynin [Oxybutynin] Adverse Reaction (Severe, Verified 03/28/25 14:43) body twitching gabapentin Adverse Reaction (Intermediate, Verified 03/28/25 14:43) Hypertension metformin Adverse Reaction (Intermediate, Verified 03/28/25 14:43) Diarrhea duloxetine Adverse Reaction (Intermediate, Uncoded 03/28/25 14:43) tachycardia Medication List - Last Reconciled 03/28/25 by Nicole Ortega NP-C acetaminophen 325 mg PO QID PRN albuterol sulfate 2.5 mg (3 mL) inhalation Q4-6H PRN albuterol sulfate 90 mcg/actuation 1 puff inhalation QID alcohol swabs (Alcohol Prep Pads) topically tests 4 X/day; amlodipine 5 mg PO BID 30 days aspirin (Adult Aspirin Regimen) 81 mg PO DAILY 90 days atorvastatin 80 mg PO BEDTIME [baby wipes As directed] blood sugar diagnostic (FreeStyle Lite Strips) check BS 3X/DAY blood-glucose meter (FreeStyle Lite Meter kit) As directed [CHAIR LIFT As directed] cholecalciferol (vitamin D3) 50 mcg PO DAILY clonidine HCl 0.1 mg PO BEDTIME clotrimazole 1% 1 appl topical BID 4 weeks collagenase clostridium histo. (Santyl) 1 appl topical DAILY compress.stocking,knee,reg,lrg As directed 20-30 mm HG cyanocobalamin (vitamin B-12) 1,000 mcg PO DAILY dulaglutide (Trulicity) 1.5 mg (0.5 mL) subcut QWEEK ferrous sulfate (Iron (ferrous sulfate)) 325 mg PO FR@0900 fluticasone propionate 50 mcg/actuation (Flonase Allergy Relief) 1 spray intranasal BID glucagon 3 mg/actuation (Baqsimi) 3 mg intranasal ONCE PRN 30 days MDD 6 mg hydrochlorothiazide 12.5 mg PO DAILY [Incontinence BED PADS WASHABLE As directed] insulin glargine (Lantus Solostar U-100 Insulin) 28 units (0.28 mL) subcut DAILY lancets (FreeStyle Lancets) USE DIRECTED THREE TIMES A DAY (BULK) letrozole 2.5 mg PO DAILY [matectomy BRA As directed] Novolog FlexPen U-100 Insulin (insulin aspart U-100) 20 units (0.2 mL) subcut TID NS ondansetron 4 mg PO Q8H oxycodone-acetaminophen 5-325 mg (Percocet) 1 tab PO Q8H PRN paroxetine HCl 20 mg PO DAILY 90 days pen needle, diabetic as directed with insulin [Pull ups As directed] ropinirole 1 mg PO BID sennosides (Senokot) 8.6 mg PO BID solifenacin (Vesicare) 5 mg PO DAILY triamcinolone acetonide 0.1% 1 appl topical DAILY umeclidinium-vilanterol 62.5-25 mcg/actuation (Anoro Ellipta) 1 inh inhalation DAILY vibegron 75 mg PO DAILY 30 days zinc gluconate 50 mg PO DAILY HPI HPI f/u after Holter monitor colonoscopy clearance: Details: Sarah is a 65-year-old female with past medical history of obesity, smoking, breast cancer, hypertension, hyperlipidemia, diabetes, heart palpitations without noted significant arrhythmia, question of TIA who presents for follow-up after recent cardiac event monitor. Today she reports that she still notices heart palpitations which feels like her heart is beating fast and hard at times. She will get some stabbing pains to her left chest where she had her mastectomy which is unchanged. She has no chest discomfort brought on by just walking. She has shortness of breath with activity and blames it on her weight. She has no concerning shortness of breath at rest. No PND, orthopnea or edema. No presyncope, syncope. She says will get some lightheadedness if she stands up quickly. She ambulates short distances with a walker. She is in a wheelchair today. No further episodes of numbness in her extremities or face. No speech or vision changes. Her daughter is present. [facility] Medical History TIA (transient ischemic attack) (~12/2024) Recent bereavement Environmental and seasonal allergies HLD (hyperlipidemia) Multinodular goiter Peripheral neuropathy History of short term memory loss Port-A-Cath in place Smoker Family history of prostate cancer in father Leg swelling Shortness of breath Effusion of left knee Weakness Fall Thyroid nodule Adrenal adenoma Vision changes Diabetes History of palpitations History of unsteady gait Low back pain Arthritis Mild heartburn Hx of renal calculi Vaginal yeast infection Encounter to discuss test results 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 Cervical cancer screening Generalized anxiety disorder Type 2 diabetes mellitus with hyperglycemia History of anal fissures Peripheral vascular disease Urinary incontinence Hypertension COPD (chronic obstructive pulmonary disease) Hypercholesterolemia Surgical History Hx of colonoscopy H/O total mastectomy of left breast (12/21/22) History of biopsy History of endometrial ablation Hx of tubal ligation History of tonsillectomy History of appendectomy History of cholecystectomy History of bladder surgery History of left knee replacement Family History Mother History of breast cancer Father Prostate CA Brother No problems noted. Brother No problems noted. Daughter No problems noted. Social History Household Members: Family Household Members Other:: adult daughter Housing: House Are you a primary plant care worker to a significant other at home: No Do you presently have visiting nurse or other home services: No 75 years or older and lives alone: No Alcohol intake: current Alcohol intake frequency: holidays/special occasions only Comment: Fell 08/2022, leg weakness 1 glass on holidays Patient Tobacco Use Status: Current everyday Tobacco user Tobacco use type: Cigarette Cigarette Packs Per Day: 1 Cigarettes Per Day: 20.0 Years Smoked: 40, 1 pack a day e-Cigarette/Vaping Use: Never Used Second Hand Smoke Exposure: Yes service: No Current occupational status: disabled Cognitive needs: No Hearing needs: No Vision needs: Yes Female Reproductive History Menstrual Age of Menarche: 10 Review of Systems Const All systems reviewed & are unremarkable except as noted in HPI and below ENT Denies dizziness Card Denies chest pain, Denies chest pain at rest, Denies chest pain with activity, Reports rapid heart rate, Denies pedal edema, Denies edema, Denies leg edema, Denies lightheadedness, Denies palpitations, Reports dyspnea, Reports dyspnea on exertion and Denies orthopnea Resp Denies cough, Reports dyspnea and Reports dyspnea on exertion GI Denies hematochezia and Denies change in stool character Musc Reports abnormal gait (in wheelchair today, walks short distances), Denies limited range of motion, Denies muscle cramps, Denies muscle weakness, Denies numbness, Denies radiating pain into limb, Denies stiffness and Denies tingling Neuro Denies Abnormal speech present, Reports abnormal gait (in wheelchair today, walks short distances), Denies dizziness, Denies numbness and Denies tingling Endo Denies palpitations Physical Exam Const General: cooperative, comfortable, alert, awake and anxious Nutritional Appearance: obese Orientation/consciousness: patient oriented x3 Limitations: wheelchair Resp Effort & Inspection: normal respiratory effort Auscultation: no crackles, wheezes (expiratory wheezes noted bilaterally) and diminished lung sounds Cardio Jugular venous distension: no JVD Rate: tachycardic Rhythm: regular rhythm Heart sounds: S1 normal heart sound present, S2 normal heart sound present, no click, no gallops, no murmurs and no rubs GI Auscultation: normal bowel sounds Skin General skin exam: no rashes or lesions noted Neuro General: patient oriented x3 and no focal motor deficits Speech: No Abnormal speech present Extrem General: Yes no pedal edema Office Procedures EKG Details: Today, read by me, normal sinus rhythm, nonspecific ST and T-wave body, rate 99, QTC 467 sec [id number], Complete Assessment & Plan Assessment & Plan (1) Palpitations: Code(s): R00.2 - Palpitations Category: Medical Plan: ER evaluation for heart palpitations 03/2024. EKGs reviewed by Dr. Serrano and some suggestive of sinus tachycardia while others were suggestive of atrial flutter. It responded to IV Cardizem. A 7 day Holter monitor was done on 06/20/2024 showing sinus rhythm, average 88 beats per minute, rare PACs. An echocardiogram was done on 06/20/2024 showing EF 55-60%, grade 1 diastolic dysfunction, right and left atrium is normal size. A pharmacological nuclear stress test was done on 06/21/2024 showing normal myocardial perfusion imaging, EF 43% with stress, 48% with rest. On last visit she described a brief episode of numbness in her right arm and face. A CT scan of the head showed no acute abnormalities. A cardiac event monitor showed sinus rhythm with average heart rate 90, rare SVE and VE, short atrial run, longest 7 beats. Her palpitations correlated with sinus rhythm and sinus tachycardia. Reviewed all the above with her. Will further discuss with Dr. Serrano. Emergency care if ever needed for any neurological changes or sustained rapid palpitations. Cardiology follow-up 3 months, sooner if needed. (2) Right sided weakness: Code(s): R53.1 - Weakness Category: Medical Plan: Brief as above - no reoccurrence last few months (3) Hypertension: Code(s): I10 - Essential (primary) hypertension Category: Medical Qualifiers: Hypertension type: primary hypertension Qualified Code(s): I10 - Essential (primary) hypertension Plan: Blood pressure goal less than 130/80. Mild elevation today at 140/62. No med changes at this time, reviewed low-salt diet. (4) Preop cardiovascular exam: Code(s): Z01.810 - Encounter for preprocedural cardiovascular examination Category: Medical Plan Time spent on chart review, documentation, interview and assessment Patient was informed and verbally consented to the use of an ambient scribe for clinic note documentation during this visit. Throughout my discussion with the patient, I noted her history of heart palpitations and TIA symptoms with testing pointing towards sinus tachycardia rather than atrial fibrillation. I advised the introduction of metoprolol to modulate her heart rate, emphasizing the importance of lifestyle adjustments to address triggers like anxiety and smoking cessation. The notion of employing a loop recorder was introduced, contingent on developmental training counselor concurrence?which would afford comprehensive heart rhythm assessment. Informed consent was acquired regarding the potential intervention, ensuring understanding of risks like procedural discomfort and pros, such as continuous cardiac monitoring. Patient Instructions: - Take the prescribed metoprolol daily as instructed. - Continue efforts to stop smoking to improve breathing and overall health. - Avoid known triggers that may exacerbate anxiety or heart palpitations. - Seek immediate medical attention for any TIA-like symptoms, such as numbness or speech difficulties, that recur or persist. - Monitor symptoms like shortness of breath and inform healthcare providers of any worsening conditions. Coding Level of Care Code Est Pt Level 4 (07710) Complex EM visit Add On G2211 Diagnoses Palpitations R00.2 Right sided weakness R53.1 Primary hypertension I10 Hypertension type: primary hypertension Preop cardiovascular exam Z01.810 CPT Codes EKG - CPT: 28806-[id number], Complete ([id number]) Time Spent (min) 32
[2025-03-28 14:41] VITALS: BP 140/62; PULSE 99
--- OUTSIDE RECORDS SUMMARY | 2025-03-28 15:14 | XMS_ITS ---
Author Organization [facility] Address [address] [place] [address] Care Team Providers Care Technical Account Manager Name Role Phone Po Concepción MADDEN Primary Care Provider Unavailvandana e Ravindra Putnam Unavailable [phone] Allergies Allergen (clinical drug ingredient) Drug/Non Drug [...] Status Risk Notes Problem Colon cancer screening (Z12.11) Active confirmed Problem Gastroesophageal reflux disease (disorder) (004686678) Chronic GERD (K21.9) Active confirmed Vital Signs Blood pressure systolic 00 mm Hg 12/21/19 25 Blood pressure diastolic 00 mm Hg 025 Height 5 ft 4 in in 12/21/2024 Weight 223 lbs 12/21/2024 BMI 38.27 kg/m2 12/21/2024 Encounters Encounter Location Date Provider Diagnosis [facility] [address] [place] [id number] 12/21/2024 Ravindra Putnam Colon cancer screening Z12.11 [...] She was instructed to speak with her furniture stainer regarding instructions in regard to adjusting her [...] She was instructed to speak with her furniture stainer regarding instructions in regard to adjusting her [...] Provider Name:Ravindra Putnam , 04/10/2025 07:30:00 AM, [address] [place] [address], [phone], Progress Notes * THAO CHARLTON ADOB: [birth year] (64 yo F)Acc No.[id number]:12/21/2024 Progress Notes Patient:?THAO CHARLTON Provider:?Ravindra Putnam MD :1960???Age:64 Y???Sex:Female D ate:12/21/2024 Address:[address] [place], [place] [id number] Pcp:Concepción Reyes MD Subjective: * Chief Complaints: [...] MG Tablet Oral Vitamin D3 50 MCG (1999 UT) Capsule Oral Clotrimazole Anti-Fungal 1 % [...] Tablet Oral Taking Vitamin D3 50 MCG (1999 UT) Capsule Oral Taking Clotrimazole Anti-Fungal 1 [...] She was instructed to speak with her furniture stainer regarding instructions in regard to adjusting her [...] Procedure Codes:?3017F COLOR ECTAL CA SCREEN DOC [id number] Pt scrn tbco and id as [id number] BP SCR NOT PRFRM REC REASON NOS * Preventive Medicine:? ??Counseling:?Care goal follow-up plan:?Above Normal BMI Follow-up?Giving encouragement to exercise,?BMI management provided?Yes.? ??Urinary Incontinence:?Urinary Incontinence?Assessment:?Present,?Plan of care documented:?Yes,?Type of plan of care:?Lifestyle interventions.? * Follow Up:?prn * * Sign off status: Completed true * Provider:?Ravindra Putnam MD Date:? 025 Generated for Anabell jovel/Rosalee/Lisa on:?03/28/2025 03:14 PM EDT History and Physical Notes * [...]
--- OUTSIDE RECORDS SUMMARY | 2025-03-28 15:14 | XMS_ITS | Patient Health Record ---
Author Organization [facility] Address [address] [place] [address] Care Team Providers Care Driver Sales Name Role Phone Po Concepción MADDEN Primary Care Provider Ravindra Arora [phone] Allergies Allergen (clinical drug ingredient) Drug/Non Drug [...] Active confirmed Problem Gastroesophageal reflux disease (disorder) (599973267) Chronic GERD (K21.9) Active confirmed Vital Signs Blood pressure diastolic 00 mm Hg 12/21/2024 Height 5 ft 4 in in 12/21/2024 Blood pressure systolic 00 mm Hg 12/21/2024 Weight 223 lbs 12/21/2024 BMI 38.27 kg/m2 12/21/2024 Encounters Encounter Location Date Provider Diagnosis [facility] [address] [place] [phone] 12/21/2024 Ravindra Putnam Colon cancer screening Z12.11 and Chronic GERD K21.9 [facility] [address] [place] [phone] 12/24/2024 Ravindra Putnam Assessments Encounter Date Diagnosis [...] She was instructed to speak with her cnc field service engineer regarding instructions in regard to adjusting [...] She was instructed to speak with her cnc field service engineer regarding instructions in regard to adjusting [...] Name:Ravindra Putnam , 04/10/2025 07:30:00 AM, [address] [place] [address] , [place], [place], [phone], Insurance Providers Payer Name Payer Address Payer Phone Subscriber Number Group Number Insured Name Patient Relationship to Insured Coverage Start Date Coverage End Date [facility] [address] Attn Claims [place] [id number] THAO CHARLTON Self - patient is the insured Medical (General) History Medical History History ICD Code Thyroid nodule IDDM Peripheral vascular disease Urinary incontinence COPD Anxiety disorder Hypertension Renal calculi TIA Left breast cancer 03/2021 with chemo and surgery-Dr. Mitchell Reports a negative colonscopy in approx 2004 Denies MD,CVA,renal disease Neuropathy GERD Hyperlipidemia Surgical History Surgery Date(Month/Year) Mastectomy of left breast 2022-Dr. Roxann andersen Endometrial ablation Tubal ligation Tonsillectomy Appendectomy Cholecystectomy Bladder surgery Left knee replacement 2006
--- OUTSIDE RECORDS SUMMARY | 2025-03-28 15:14 | XMS_ITS | Clinical Summary ---
Author Organization [facility] Address [address] [place] [address] Care Team Providers Care Master Automotive Technician Name Role Phone Unavailable Primary Care Provider [...] inhalerIndicati ons:COPD (chronic obstructive pulmonary disease) ([facility]),Influ mg A Inhale 2 Puffs into the lungs every 4 (four) hours as needed for shortness of breath or wheezing. 1 Inhaler 3 5 Active traZODone (DESYREL) 50 mg tabletIndicatio ns:Insomnia,Dep ression Take 1 Tab by mouth nightly at bedtime. 30 Tab 0 5 Active aspirin 325 mg tabletIndicatio ns:HTN (hypertension), COPD (chronic obstructive pulmonary disease) ([facility]) Take 1 Tab by mouth once daily. 30 Tab 3 5 Active NIFEdipine (ADALAT CC) 60 mg 24 hr tabletIndicatio ns:HTN (hypertension) Take 1 Tab by mouth once daily. Take on an empty stomach. Swallow whole. Do not break, crush or chew. 30 Tab 3 5 Active predniSONE (DELTASONE) 10 mg tabletIndicatio ns:COPD (chronic obstructive pulmonary disease) ([facility]) Take 1 Tab by mouth once daily. 30 Tab 0 5 Active budesonide-form oterol (SYMBICORT) 80-4.5 mcg/actuation inhalerIndicati ons:COPD (chronic obstructive pulmonary disease) ([facility]) Inhale 2 Puffs into the lungs 2 (two) times daily. 1 Inhaler 3 5 Active albuterol (PROVENTIL) 2.5 mg /3 mL (0.083 %) nebulizer solutionIndicat ions:COPD (chronic obstructive pulmonary disease) ([facility]) Take 3 mL by nebulization every [...] aepbIndications :COPD (chronic obstructive pulmonary disease) ([facility]) Inhale 1 Inhaler into the lungs 2 (two) times daily. 1 Inhaler 6 5 Active clotrimazole-be tamethasone (LOTRISONE) 1-0.05 % lotionIndicatio ns:Rash Apply topically 2 (two) times daily. 30 mL 1 5 Active Active Problems Problem Noted Date Diagnosed Date Depression 01/28/2015 COPD (chronic obstructive pulmonary disease) ([facility]) 01/28/2015 Incontinence of urine in female 01/28/2015 [...] Plan of Treatment Not on file [place]
--- OUTSIDE RECORDS SUMMARY | 2025-03-28 15:14 | XMS_ITS ---
Author Organization [facility] Address [address] [place] [id number] Care Team Providers Care Life Skills Instructor Name Role Phone Po Concepción MADDEN Primary Care Provider Ravindra Arora [phone] REASON FOR VISIT appt PAT made Encounters Encounter Location Date Provider Diagnosis [facility] [address] [place] [id number] 12/24/2024 Ravindra Putnam Plan Of Treatment Next Appt Details Provider Name:Ravindra Putnam , 04/10/2025 07:30:00 AM, [address] [place] [address] , [place], [place], [id number], Progress Notes * THAO CHARLTON ADOB: [birth year] (64 yo F)Acc No.[id number]:12/24/2024 Patient:?THAO CHARLTON :1960???Age:64 Y???Sex:Female [address] [place] [address] * true * Date:? Generated for Anui med/Rosalee/eTransmitting on:?03/28/2025 03:14 PM EDT
== END 2025-03-28 15:30 | disposition home or self-care (01) ==
LOC: HO.HCS 14:25
PROVIDERS: PCP Internal Medicine; Visit Provider Nurse Practitioner Family
DX: R00.2 Palpitations (principal); R53.1 Weakness; I10 Essential (primary) hypertension; Z01.810 Encounter for preprocedural cardiovascular examination
CPT/HCPCS: 93010; 99214; G2211

== ENCOUNTER → 2025-03-28 14:24 | Outpatient (BNVA) | payer OTHER, SELFPAY | PROVIDERS: PCP Internal Medicine; Visit Provider Nurse Practitioner Family | DX: Z01.810 Encounter for preprocedural cardiovascular examination (principal); R00.2 Palpitations; R06.02 Shortness of breath; R53.1 Weakness; I10 Essential (primary) hypertension; F17.210 Nicotine dependence, cigarettes, uncomplicated; Z90.12 Acquired absence of left breast and nipple | CPT/HCPCS: 93005; 99212 ==

== ENCOUNTER 2025-04-03 00:08 | Inpatient (IN) | payer OTHER, SELFPAY ==
[2025-04-03] VITALS (18 sets, daily range): BP systolic 108–144; BP diastolic 53–88; PULSE 103–120; RESP 15–26; TEMP 35.9–36.9; O2SAT 03–98; BMI 37.3; BMI 37.2
--- NOTE | ~2025-04-03 | US_ITS ---
EXAMINATION: ULTRASOUND-GUIDED THORACENTESIS CLINICAL INFORMATION: Bilateral moderate pleural effusions. COMPARISON: CT angiograms chest 04/03/2025. TECHNIQUE: Following explaining ultrasound-guided left chest tube insertion for pleural drainage procedure, benefits and risk, a written consent was obtained. Patient was placed upright on ultrasound stretcher and preliminary ultrasound imaging was obtained. An optimal site was selected along the lower interspace approximately 10th along the left posterior axillary line. 1% lidocaine was injected puncture site. Through a small skin incision a 5 Mongolian Yueh catheter was advanced into pleural space. After observing fluid return, stylet was withdrawn and 0.035 J-wire was inserted through the sheath and the sheath removed. A 8 Mongolian pigtail catheter with a stiffener was inserted over the guidewire and the stiffener was removed as the catheter was advanced over the guidewire. The stiffener and the entire guidewire was removed and string was pulled resulting in a pigtail formation. The catheter was anchored to the skin with 3-0 nylon nonabsorbable sutures. Sterile dressing was placed over the puncture site. The catheter was then connected to waterseal equipment via a 3 wayy valve. Patient tolerated procedure extremely well. FINDINGS: On preliminary ultrasound imaging there is moderate to large left pleural effusion. Following placement of left pleural catheter approximately 120 mL of red fluid was drained and part of this fluid was sent to lab for further evaluation. US/US drain thoracentesis w image IMPRESSION: Successful ultrasound-guided left pigtail chest tube drainage catheter placement without immediate complication. Fluid obtained was sent to lab for further testing as requested by referring physician. Recommend follow-up chest x-ray 04/05/2023 Electronically signed by: Valentin Hernandez MD 04/04/2025 12:53 PM EDT
--- NOTE | ~2025-04-03 | CT_ITS ---
CLINICAL HISTORY: sob, tachy, hx breast CA CT angiography chest with contrast. 3D Postprocessing. Comparison: CT/FL/SR - CT ANGIO CHEST PE PROTOCOL - 09/22/23 10:31 EDT Findings: The heart is normal size. RV/LV ratio is normal. Atherosclerotic changes cause focal narrowing of the origin of the left subclavian artery. Right anterior chest wall Port-A-Cath with the distal tip in the superior vena cava. The visualized thyroid and mediastinum are unremarkable. Marked left axillary lymphadenopathy up to 2.5 cm diameter. Postsurgical changes from prior left mastectomy. Left chest wall skin thickening noted. Moderate pleural effusions are present with basilar subsegmental atelectasis or infiltrate. No central or proximal segmental pulmonary embolism identified. Limited evaluation of the upper abdominal contents demonstrates a 2.2 cm diameter left adrenal fatty adenoma requiring no further workup. No acute fractures. IMPRESSION: 1. Moderate pleural effusions with basilar subsegmental atelectasis or infiltrate. 2. Atherosclerotic narrowing of the origin of the left subclavian artery. Follow-up carotid ultrasound may be helpful if there is clinical concern of subclavian steal phenomenon. 3. No central or proximal segmental pulmonary embolism identified. 4. Marked left axillary lymphadenopathy up to 2.5 cm diameter. This document has been electronically signed by: William Martin MD, PHD on 04/03/2025 04:39:31
--- NOTE | ~2025-04-03 | XR_ITS ---
EXAMINATION: XR CHEST CLINICAL INFORMATION: Left Chest tube fell out. COMPARISON: Prior day at 10:03 AM. TECHNIQUE: Frontal view of the chest was obtained. FINDINGS: Left-sided chest tube is no longer visualized. There is a right chest wall port, with tip in the distal SVC. The cardiac silhouette is partially obscured. Mediastinal and hilar contours normal. There is a stable small to moderate-sized right layering effusion. Left effusion has near completely resolved with only trace fluid remaining. No perceptible pneumothorax. Stable right basilar parenchymal opacity is likely passive atelectasis. Calcific tendinopathy of both shoulder joints noted. A small amount of enteric contrast is present within the stomach. XR/XR chest 1V IMPRESSION: 1. Left basilar chest tube no longer visualized. Left effusion near completely resolved. Only trace fluid remaining. No pneumothorax. 2. Stable small to moderate right effusion. 3. Similar right basilar parenchymal consolidation, likely passive atelectasis from effusion. 4. Stable right chest port. Electronically signed by: Inocencio Chambers MD 04/05/2025 09:27 AM EDT
--- NOTE | ~2025-04-03 | FL_ITS ---
EXAMINATION: XR BARIUM SWALLOW CLINICAL INFORMATION: Dysphagia COMPARISON: None available. TECHNIQUE: Routine barium swallow was performed in semiupright position. FINDINGS: Following oral administration of thick barium in semiupright view there is normal propagation of bolus from the oral cavity through the pharynx into stomach without any evidence of obstruction, narrowing or stricture. There are occasional tertiary peristalsis visualized. On oral administration of barium tablet with water there is very slow propagation of the tablet through the esophagus. Intermittent transient tablet holdup in upper and distal esophagus which subsequently cleared with more water. FLUOROSCOPY TIME: 1 minute 8 seconds DOSE AREA PRODUCT: 733.8 uGy-m2 (microgray-meter squared) FL/FL barium swallow IMPRESSION: No esophageal obstruction or narrowing seen. Tertiary peristalsis present in the distal esophagus. Transient holdup of barium tablet in the upper and lower esophagus which is subsequently clears with lots of water. Electronically signed by: Valentin Hernandez MD 04/05/2025 09:49 AM EDT
--- NOTE | ~2025-04-03 | XR_ITS ---
EXAMINATION: XR CHEST 1 VIEW HISTORY: pneumonia, pleural effusion COMPARISON: Comparison is made with the prior examination dated 04/05/2025. FINDINGS: A single AP portable view of the chest performed at 2:14 PM is submitted. A right-sided port is unchanged in position. Again seen is a small right pleural effusion. Underlying atelectasis or pneumonia at the right lung base is not excluded. Again seen is opacification of the left lung base which may represent atelectasis or pneumonia. There is no pneumothorax. The heart is normal in size. There is degenerative disc disease of the spine. XR/XR chest 1V IMPRESSION: 1. Small right pleural effusion without change. Underlying atelectasis or pneumonia at the right lung base is not excluded. 2. Opacification of the left lung base which may represent atelectasis or pneumonia. Electronically signed by: Ravindra Roth MD 04/08/2025 02:43 PM EDT
--- NOTE | ~2025-04-03 | XR_ITS ---
EXAMINATION: XR CHEST CLINICAL INFORMATION: status post left chest tube placement COMPARISON: 04/03/2025. TECHNIQUE: 2 views of the chest were obtained. FINDINGS: There is been placement of a left basilar pigtail chest tube, with tip formed in the left mid base. There is no perceptible pneumothorax. There is a right chest wall port, with tip in the distal SVC. The cardiac silhouette is partially obscured. Mediastinal and hilar contours normal. There is a stable small to moderate-sized right layering effusion. Left effusion has significantly decreased in size. Stable basilar parenchymal opacity is likely passive atelectasis. Calcific tendinopathy of both shoulder joints noted. XR/XR chest 2V IMPRESSION: 1. Left basilar chest tube placement without evidence of pneumothorax. Significantly decreased left effusion. 2. Stable small to moderate right effusion. 3. Similar bibasilar parenchymal consolidations, likely passive atelectasis from effusions. Electronically signed by: Inocencio Chambers MD 04/04/2025 10:16 AM EDT
--- NOTE | ~2025-04-03 | XR_ITS ---
EXAMINATION: XR CHEST CLINICAL INFORMATION: re-eval effusion COMPARISON: April 08, 2025. TECHNIQUE: Frontal view of the chest was obtained. FINDINGS: There is a meniscal shaped opacity in the lower right hemithorax. There is a small meniscal shaped opacity in the left lower hemithorax blunting of the left costophrenic angle. No pneumothorax. Cardiomediastinal silhouette size is prominent, unchanged. Right-sided Port-A-Cath remains at the SVC. Multilevel spondylosis and degenerative changes in the shoulders. Patient's large body habitus. XR/XR chest 1V IMPRESSION: Right-sided pleural effusion, moderate volume, slightly smaller. Left-sided pleural effusion, small to moderate volume, slightly larger. Electronically signed by: Uriel Martines MD 04/10/2025 09:17 AM EDT
--- NOTE | ~2025-04-03 | XR_ITS ---
CLINICAL HISTORY: sob, COUGH 1 view chest x-ray Comparison: Chest x-ray from 03/28/2025. Findings: Small bilateral pleural effusions are redemonstrated with mild worsening bibasilar atelectasis and/or consolidation. Mild edema or pneumonitis also considered given interstitial opacities. Right-sided chest port appears unchanged. Mediastinum is partly obscured. No pneumothorax. Degenerative changes include imaged shoulders and AC joints with likely calcific tendinitis of the both shoulders. IMPRESSION: 1. Small bilateral pleural effusions. 2. Bibasilar atelectasis and/or consolidation. Recommend attention on follow-up to ensure resolution. This document has been electronically signed by: Scotty Drew MD on 04/03/2025 02:33:24
[2025-04-03] MEDS: Albuterol Sulfate 7.5 MG, Albuterol Sulfate (0.083%) 2.5 MG 10 MG INHALE (00:26)
--- NOTE | 2025-04-03 00:28 | ECG_ITS ---
Test Reason : ASTHMA Blood Pressure : */* mmHG Vent. Rate : 108 BPM Atrial Rate : 108 BPM P-R Int : 124 ms QRS Dur : 86 ms QT Int : 340 ms P-R-T Axes : 16 13 28 degrees QTcB Int : 455 ms Poor data quality Sinus tachycardia Nonspecific ST abnormality Abnormal ECG When compared with ECG of 22-Sep-2023 12:30, Borderline criteria for Anterior infarct are no longer Present Referred By: Aby Kovacs Electronically Signed By: BEE PINA MD
[2025-04-03 00:32] LABS: MANUAL DIFF FLAG NO
[2025-04-03 00:34] LABS: Basophils Absolute Auto 0.1 X10*3/uL (0.0-0.2); Basophils Percent Auto 0.9 % (0-2); Eosinophils Absolute Auto 0.3 X10*3/uL (0.0-0.4); Eosinophils Percent Auto 2.2 % (0-4); Hematocrit 46.9 % (37.0-47.0); Hemoglobin 15.6 g/dl (12.0-16.0); Imm Gran Abs Auto 0.13 X10*3/uL (0.00-0.03); Lymphocytes Absolute Auto 2.5 X10*3/uL (1.2-4.9); Lymphocytes Percent Auto 19.4 % (20-40); Mean Corpuscular HGB Conc 33.3 g/dl (31.0-35.0); Mean Corpuscular Hemoglobin 30.6 pg (27.0-33.0); Mean Platelet Volume 10.1 fL (9.4-12.3); Monocytes Absolute Auto 1.1 X10*3/uL (0.1-1.2); Monocytes Percent Auto 8.8 % (2-11); Neutrophils Absolute Auto 8.7 x10*3/uL (2.0-8.3); Neutrophils Percent Auto 67.7 % (45-73); Platelet Count 339 X10*3/uL (160-400); Red Cell Distribution Width 13.4 % (11.0-16.0); White Blood Count 12.9 X10*3/uL (4.8-10.8)
[2025-04-03 00:38] LABS: VBG Base Excess 2.3 mmol/L; VBG HCO3 27 mmol/L (22-26); VBG pCO2 45 mmHg; VBG pH 7.39 (7.32-7.43); VBG pO2 30 mmHg
--- NOTE | 2025-04-03 00:38 | ED_ITS ---
HPI - SOB/Dyspnea General Chief Complaint: Dyspnea Stated Complaint: Asthma exacerbation, wheezy, possiblle new CHF dx? Time Seen by Provider: 04/03/25 00:18 Source: patient and EMS Mode of arrival: EMS Limitations: no limitations History of Present Illness ED Provider: Dr. Aby Kovacs HPI Narrative: patient comes to the emergency room complaining of shortness of breath. Patient states that she has been short of breath for about a month. However, over last 3 days it has been getting worse. Patient states that 3 days ago she stopped smoking and since then her shortness of breath got worse. Denies any fever chills. Patient denies any lower extremity edema Related Data Home Medications ?Medication ?Instructions ?Recorded ?Confirmed acetaminophen 325 mg capsule 325 mg PO QID PRN Pain 09/01/22 03/28/25 cyanocobalamin (vitamin B-12) 1,000 mcg PO DAILY 09/04/22 03/28/25 1,000 mcg tablet ferrous sulfate 325 mg (65 mg 325 mg PO FR@0900 08/09/24 03/28/25 iron) tablet (Iron (ferrous sulfate)) zinc gluconate 50 mg tablet 50 mg PO DAILY 08/09/24 03/28/25 Previous Rx's ?Medication ?Instructions ?Recorded blood-glucose meter (FreeStyle #1 ea 05/28/22 Lite Meter kit) triamcinolone acetonide 0.1 % 1 appl topical DAILY 12/01/22 topical cream collagenase clostridium histo. 250 1 appl topical DAILY to debride 01/07/23 unit/gram topical ointment (Santyl) slough #30 grams fluticasone propionate 50 1 spray intranasal BID #35 mL 06/23/23 mcg/actuation nasal spray,suspension (Flonase Allergy Relief) matectomy BRA #2 ea 10/11/23 Incontinence BED PADS WASHABLE #2 ea 01/13/24 compress.stocking,knee,reg,lrg #12 ea 01/13/24 cholecalciferol (vitamin D3) 50 50 mcg PO DAILY #90 caps 06/16/24 mcg (2,000 unit) capsule sennosides 8.6 mg tablet (Senokot) 8.6 mg PO BID #60 tabs 06/21/24 clonidine HCl 0.1 mg tablet 0.1 mg PO BEDTIME #90 tabs 07/10/24 paroxetine HCl 20 mg tablet 20 mg PO DAILY 90 days #90 tabs 07/10/24 alcohol swabs (Alcohol Prep Pads) See Rx Instructions topical 08/24/24 .COMPLEX #200 ea aspirin 81 mg tablet,delayed 81 mg PO DAILY 90 days #90 tabs 08/24/24 release (Adult Aspirin Regimen) solifenacin 5 mg tablet (Vesicare) 5 mg PO DAILY #90 tabs 08/24/24 glucagon 3 mg/actuation nasal 3 mg intranasal ONCE PRN 09/21/24 spray (Baqsimi) Unresponsive hypoglycemia 30 days #2 ea ropinirole 1 mg tablet 1 mg PO BID #180 tabs 10/12/24 letrozole 2.5 mg tablet 2.5 mg PO DAILY #90 tabs 10/24/24 umeclidinium 62.5 mcg-vilanterol 1 inh inhalation DAILY #60 ea 10/27/24 25 mcg/actuation powdr for inhalation (Anoro Ellipta) oxycodone-acetaminophen 5 mg-325 1 tab PO Q8H PRN Breakthrough 01/31/25 mg tablet (Percocet) Pain, Moderate #50 tabs albuterol sulfate 2.5 mg/3 mL 2.5 mg (3 mL) inhalation Q4-6H PRN 02/05/25 (0.083 %) solution for nebulization for wheezing #180 mL pen needle, diabetic 32 gauge x #100 ea 02/07/2511/24 CHAIR LIFT #1 ea 02/15/25 Pull ups #240 ea 02/15/25 baby wipes #1 ea 02/15/25 albuterol sulfate 90 mcg/actuation 1 puff inhalation QID #8.5 grams 02/16/25 aerosol inhaler atorvastatin 80 mg tablet 80 mg PO BEDTIME #30 tabs 02/28/25 hydrochlorothiazide 12.5 mg tablet 12.5 mg PO DAILY #30 tabs 02/28/25 amlodipine 5 mg tablet 5 mg PO BID 30 days #60 tabs 03/01/25 lancets 28 gauge (FreeStyle #100 ea 03/01/25 Lancets) Novolog FlexPen U-100 Insulin 100 20 unit (0.2 mL) subcut TID #15 mL 03/07/25 unit/mL (3 mL) subcutaneous (insulin aspart U-100) dulaglutide 1.5 mg/0.5 mL 1.5 mg (0.5 mL) subcut QWEEK #2 mL 03/07/25 subcutaneous pen injector (Trulicity) insulin glargine 100 unit/mL (3 28 unit (0.28 mL) subcut DAILY #15 03/07/25 mL) subcutaneous pen (Lantus mL Solostar U-100 Insulin) vibegron 75 mg tablet 75 mg PO DAILY 30 days #30 tabs 03/22/25 blood sugar diagnostic (FreeStyle #100 ea 03/29/25 Lite Strips) clotrimazole 1 % topical cream 1 appl topical BID 4 weeks #45 03/29/25 grams ondansetron 4 mg disintegrating 4 mg PO Q8H #60 tabs 03/29/25 tablet Allergies Allergy/AdvReac Type Severity Reaction Status Date / Time diclofenac [From Voltaren] Allergy Severe enlarged Verified 04/03/25 01:00 liver lisinopril [From Zestril] Allergy Severe Angioedema Verified 04/03/25 01:00 losartan Allergy Severe Angioedema Verified 04/03/25 01:00 omeprazole Allergy Intermediate elevated Verified 04/03/25 01:00 blood pressure Penicillins [PENICILLINS] Allergy Intermediate Facial Verified 04/03/25 01:00 Swelling oxybutynin [Oxybutynin] AdvReac Severe body Verified 04/03/25 01:00 twitching gabapentin AdvReac Intermediate Hypertensio Verified 04/03/25 01:00 n metformin AdvReac Intermediate Diarrhea Verified 04/03/25 01:00 duloxetine AdvReac Intermediate tachycardia Uncoded 04/03/25 01:00 Review of Systems 2 Review of Systems: Constitutional : No Weight loss, No Fever, No Chills, No Night Sweats, No Fatigue, No Malaise ENT/Mouth : No Hearing loss, No Ear Pain, No Nasal Congestion, No Sinus Pain, No Hoarseness, No sore throat, No Rhinorrhea, No Swallowing Difficulty Eyes: No Eye Pain, No Swelling, No Redness, No Foreign Body, No Discharge, No Vision Changes Cardiovascular : No Chest Pain, complaining of shortness of breath, worse with exertion, no orthopnea, no palpitations Respiratory : complaining of dry cough, wheezing, shortness of breath Gastrointestinal : No Nausea, No Vomiting, No Diarrhea, No Constipation, No abdominal Pain, No Hematochezia, No Melena Genitourinary : no irregular bleeding, No Dysuria, No Urinary Frequency, No Hematuria, No Urinary Incontinence, No Urgency, No Flank Pain, No Urinary Flow Changes, No Hesitancy Musculoskeletal : No joint pain, No Myalgias, No Joint Swelling Skin : No Skin Lesions, No rash Neuro : No Weakness, No Numbness, No Paresthesias, No Loss of Consciousness, No Dizziness, No Headache Psych : No Anxiety/Panic, No Depression, No SI/HI/AH/VH, No Social Issues, Heme/Lymph: No Bruising, No Bleeding,No Lymphadenopathy Endocrine : No Polyuria, No Polydipsia, No Temperature Intolerance ON LICENSE OF [facility] Past Medical History Medical History TIA (transient ischemic attack) (~12/2024) Recent bereavement Environmental and seasonal allergies HLD (hyperlipidemia) Multinodular goiter Peripheral neuropathy History of short term memory loss [place] in place Smoker Family history of prostate cancer in father Leg swelling Shortness of breath Effusion of left knee Weakness Fall Thyroid nodule Adrenal adenoma Vision changes Diabetes History of palpitations History of unsteady gait Low back pain Arthritis Mild heartburn Hx of renal calculi Vaginal yeast infection Encounter to discuss test results 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 Cervical cancer screening Generalized anxiety disorder Type 2 diabetes mellitus with hyperglycemia History of anal fissures Peripheral vascular disease Urinary incontinence Hypertension COPD (chronic obstructive pulmonary disease) Hypercholesterolemia Surgical History Hx of colonoscopy H/O total mastectomy of left breast (12/21/22) History of biopsy History of endometrial ablation Hx of tubal ligation History of tonsillectomy History of appendectomy History of cholecystectomy History of bladder surgery History of left knee replacement Family History Family History Mother History of breast cancer Father Prostate CA Brother No problems noted. Brother No problems noted. Daughter No problems noted. Social History Social History Household Members: Family Household Members Other:: adult daughter Housing: House Are you a primary manager of care to a significant other at home: No Do you presently have visiting nurse or other home services: No Alcohol intake: current Alcohol intake frequency: holidays/special occasions only Comment: Fell 08/2022, leg weakness 1 glass on holidays Patient Tobacco Use Status: Current everyday Tobacco user Tobacco use type: Cigarette Cigarette Packs Per Day: 1 Cigarettes Per Day: 20.0 Years Smoked: 40, 1 pack a day e-Cigarette/Vaping Use: Never Used Second Hand Smoke Exposure: Yes Advance Directives: No Advance Directives Information Provided: Yes Do you have a plan to hurt others: No Plan service: No Current occupational status: disabled Cognitive needs: No Hearing needs: No Vision needs: Yes Physical Exam 2 Vital Signs: Vital Signs: Last Vital Signs Temp 98.4 F 04/03/25 03:56 Pulse 108 H 04/03/25 03:56 Resp 20 04/03/25 03:56 BP 127/59 L 04/03/25 03:56 Pulse Ox 97 04/03/25 03:56 O2 Del Method Oxymask 04/03/25 03:56 O2 Flow Rate 6 04/03/25 03:56 BMI result Body Mass Index 37.3 Const: Other: Appearance: Alert. Oriented X3. No acute distress. Eyes: Pupils equal, round and reactive to light. ENT: Pharynx normal. Neck: Normal inspection. Neck supple. No lymph nodes noted. No crepitus CVS: Normal heart rate and rhythm. Pulses normal. Normal S1 and S2 Respiratory: mildly tachypneic, talking in full sentences. Nebulization in progress. Mild bilateral wheezing, fairly good air movement Abdomen: Soft and nontender. No rigidity. No distention. Skin: Skin warm and dry. Normal skin color. Normal skin turgor. Extremities: No lower extremity edema. No Lacerations. No Rash Neuro: Oriented X 3. No motor deficit. No sensory deficit. Moving all extremities. No slurred speech. CN 2 through 12 grossly intact Psych: calm, cooperative, normal affect Course Course Course Narrative: patient received multiple nebulization treatments, empiric treatment with levofloxacin, Solu-Medrol, magnesium and Lasix Lactic acid is 2.4 likely secondary to multiple nebulization treatments. My interpretation of labs: No significant abnormality in patient's hematology and chemistry, no significant abnormality in patient's LFTs, troponin 3.4, BNP 21, serology negative chest x-ray: small bilateral pleural effusions, bibasilar atelectasis and/or consolidation. We attempted ambulating the patient, patient's oxygen saturation is 89% walking. However, patient's oxygen saturation improved to the low 90s. Patient does not seem to be wheezing but she became very short of breath, possibly anxiety? . Patient had a hard time walking bag. I discussed the patient with Dr. Gunter from the Medicine team, requested a CT scan to rule out pulmonary embolism. CT scan pending Sign out given to my colleage Dr. Hall Reevaluation(s) Reevaluation #1: 04/03/2025:DR. Hall's note: CT angio of the chest showed no pulmonary embolism, case discussed with Dr. Gunter patient will be admitted. Time: 05:45 Medications Administered Generic Name Dose Route Start Last Admin Trade Name Freq PRN Reason Stop Dose Admin Ceftriaxone Sodium 1 gm 04/03/25 06:00 04/03/25 05:34 Ceftriaxone Sodium 1 Gm Vial IVPUSH 1 gm Q24H [place] Administration Discontinued Medications Generic Name Dose Route Start Last Admin Trade Name Freq PRN Reason Stop Dose Admin Albuterol Sulfate 7.5 mg/ 10 mg 04/03/25 00:24 04/03/25 00:26 Albuterol Sulfate 2.5 mg INHALE 04/03/25 00:25 10 mg ONCE ONE Administration Albuterol Sulfate 10 mg 04/03/25 02:08 04/03/25 02:34 Albuterol Sulfate (0.083%) 2.5 Mg/3 Ml Vial.Neb INHALE 04/03/25 02:09 10 mg ONCE ONE Administration Furosemide 10 mg 04/03/25 02:09 04/03/25 03:46 Furosemide 20 Mg/2 Ml Vial IVPUSH 04/03/25 02:10 10 mg ONCE ONE Administration Protocol Magnesium Sulfate 2 gm in 50 mls @ 25 mls/hr 04/03/25 00:37 04/03/25 03:04 Magnesium Sulfate/H2o IV 04/03/25 02:36 Infused ONCE ONE Infusion Levofloxacin 500 mg in 100 mls @ 100 mls/hr 04/03/25 00:50 04/03/25 03:04 Levaquin IV 04/03/25 01:49 Infused ONCE ONE Infusion Iohexol 100 ml 04/03/25 03:41 04/03/25 03:42 Iohexol 350 Mg/Ml 100 Ml Infus..Btl IV 04/03/25 03:42 100 ml ONCE ONE Administration Methylprednisolone Sodium Succinate 125 mg 04/03/25 00:37 04/03/25 00:53 Methylprednisolone Sod Succ 125 Mg Vial IVPUSH 04/03/25 00:38 125 mg ONCE ONE Administration Medical Decision Making Differential Diagnosis Differential Diagnoses: The differential diagnosis associated with the presentation includes ( asthma, COPD, CHF, PE, viral illness) Admission/Observation Consideration of admission/observation: Escalation of care including admission/observation considered Consult Healthcare Provider Management of the patient was discussed with: Hospitalist Lab Data MDM Lab Attestation statement: I reviewed the patient's lab results. 04/03/25 00:26 04/03/25 00:26 Labs: Lab Results 04/03/25 04/03/25 04/03/25 Range/Units 00:26 00:29 00:33 WBC 12.9 H (4.8-10.8) X10*3/uL RBC 5.10 (4.20-5.50) X10*6/uL Hgb 15.6 (12.0-16.0) g/dl Hct 46.9 (37.0-47.0) % MCV 92.0 (80.0-98.0) fL MCH 30.6 (27.0-33.0) pg MCHC 33.3 (31.0-35.0) g/dl RDW 13.4 (11.0-16.0) % Plt Count 339 D (160-400) X10*3/uL MPV 10.1 (9.4-12.3) fL Immature Gran % (Auto) 1.0 H (0.0-0.4) % Neut % (Auto) 67.7 (45-73) % Lymph % (Auto) 19.4 L (20-40) % [place] % (Auto) 8.8 (2-11) % Eos % (Auto) 2.2 (0-4) % Baso % (Auto) 0.9 (0-2) % Lymph # (Auto) 2.5 (1.2-4.9) X10*3/uL [place] # (Auto) 1.1 (0.1-1.2) X10*3/uL Eos # (Auto) 0.3 (0.0-0.4) X10*3/uL Baso # (Auto) 0.1 (0.0-0.2) X10*3/uL Abs Immat Gran (auto) 0.13 H (0.00-0.03) X10*3/uL Absolute Neuts (auto) 8.7 H (2.0-8.3) x10*3/uL Absolute Nucleated RBC 0.000 (0.0-0.012) X10*3/uL Nucleated RBC % (auto) 0.0 (0.0-0.2) /100WBC VBG pH 7.39 (7.32-7.43) VBG pCO2 45 mmHg VBG pO2 30 mmHg VBG HCO3 27 H (22-26) mmol/L VBG O2 Saturation 45.0 % VBG Base Excess 2.3 mmol/L Sodium 143 (135-145) mmol/L Potassium 5.0 D (3.3-5.1) mmol/L Chloride 105 (96-108) mmol/L Carbon Dioxide 23 (22-29) mmol/L Anion Gap 20 (12-20) BUN 15 (9-16) mg/dL Creatinine 0.81 (0.5-1.4) mg/dL Estim Creat Clear Calc TNP Estimated GFR > 60 Random Glucose 107 (60-115) mg/dL Lactic Acid (0.5-2.0) mmol/L Lactic Acid F/U @ 2Hr (0.5-2.0) mmol/L Calcium 10.2 D (8.4-10.2) mg/dL Total Bilirubin 0.3 (0.0-1.0) mg/dL AST 34 H (5-31) U/L ALT 19 (0-31) U/L Alkaline Phosphatase 143 H (39-117) U/L Troponin I High Sens 3.4 D (<3.5-17.0) ng/L B-Natriuretic Peptide 21 (<100) pg/mL Total Protein 7.9 (6.5-8.0) g/dL Albumin 4.0 (3.5-5.0) g/dL Influenza Type A (PCR) NEGATIVE (Negative) Influenza Type B (PCR) NEGATIVE (Negative) RSV RNA Qual (PCR) NEGATIVE (Negative) SARS-CoV-2 RNA (RT-PCR) NEGATIVE (Negative) 04/03/25 04/03/25 Range/Units 01:08 04:01 WBC (4.8-10.8) X10*3/uL RBC (4.20-5.50) X10*6/uL Hgb (12.0-16.0) g/dl Hct (37.0-47.0) % MCV (80.0-98.0) fL MCH (27.0-33.0) pg MCHC (31.0-35.0) g/dl RDW (11.0-16.0) % Plt Count (160-400) X10*3/uL MPV (9.4-12.3) fL Immature Gran % (Auto) (0.0-0.4) % Neut % (Auto) (45-73) % Lymph % (Auto) (20-40) % [place] % (Auto) (2-11) % Eos % (Auto) (0-4) % Baso % (Auto) (0-2) % Lymph # (Auto) (1.2-4.9) X10*3/uL [place] # (Auto) (0.1-1.2) X10*3/uL Eos # (Auto) (0.0-0.4) X10*3/uL Baso # (Auto) (0.0-0.2) X10*3/uL Abs Immat Gran (auto) (0.00-0.03) X10*3/uL Absolute Neuts (auto) (2.0-8.3) x10*3/uL Absolute Nucleated RBC (0.0-0.012) X10*3/uL Nucleated RBC % (auto) (0.0-0.2) /100WBC VBG pH (7.32-7.43) VBG pCO2 mmHg VBG pO2 mmHg VBG HCO3 (22-26) mmol/L VBG O2 Saturation % VBG Base Excess mmol/L Sodium (135-145) mmol/L Potassium (3.3-5.1) mmol/L Chloride (96-108) mmol/L Carbon Dioxide (22-29) mmol/L Anion Gap (12-20) BUN (9-16) mg/dL Creatinine (0.5-1.4) mg/dL Estim Creat Clear Calc Estimated GFR Random Glucose (60-115) mg/dL Lactic Acid 2.4 H* (0.5-2.0) mmol/L Lactic Acid F/U @ 2Hr 2.2 H* (0.5-2.0) mmol/L Calcium (8.4-10.2) mg/dL Total Bilirubin (0.0-1.0) mg/dL AST (5-31) U/L ALT (0-31) U/L Alkaline Phosphatase (39-117) U/L Troponin I High Sens (<3.5-17.0) ng/L B-Natriuretic Peptide (<100) pg/mL Total Protein (6.5-8.0) g/dL Albumin (3.5-5.0) g/dL Influenza Type A (PCR) (Negative) Influenza Type B (PCR) (Negative) RSV RNA Qual (PCR) (Negative) SARS-CoV-2 RNA (RT-PCR) (Negative) Independent Interpretation I performed an independent interpretation of an: Plain X-Ray Radiology Impression Discussion of test interpretation with radiology: I have reviewed the radiologist's reading. Radiologist Impression: Small bilateral pleural effusions are redemonstrated with mild worsening bibasilar atelectasis and/or consolidation. Mild edema or pneumonitis also considered given interstitial opacities. Right-sided chest port appears unchanged. Mediastinum is partly obscured. No pneumothorax. Degenerative changes include imaged shoulders and AC joints with likely calcific tendinitis of the both shoulders. IMPRESSION: 1. Small bilateral pleural effusions. 2. Bibasilar atelectasis and/or consolidation. Recommend attention on follow-up to ensure resolution. Critical Care Time Critical Care Time Critical Care Time: Yes Total Critical Care Time: 60 Attestation: I have personally provided critical care time. Time includes review of lab data, radiology results, discussion with consultants, and monitoring for potential decompensation. Intervention performed as documented. Discharge Plan Discharge Clinical Impression: Pleural effusion, Dyspnea
[2025-04-03 00:39] LABS: Venous Blood Gas Refer to POC result
[2025-04-03 00:51] LABS: B Type Natriuretic Peptide 21 pg/mL (<100)
--- NOTE | 2025-04-03 00:52 | MHC.EDTECH ---
Patient was biba ,ekg taken and was read by Provider ,blood drawn and rsv/covid swab all sent to lab ,Patient was change into hospital gown and hooked up to custodial services manager ,vitals taken ,Call reed within Pt reach .
[2025-04-03 00:53] LABS: Alanine Aminotransferase 19 U/L (0-31); Alkaline Phosphatase 143 U/L (39-117); Anion Gap 20 (12-20); Aspartate Amino Transferase 34 U/L (5-31); Bilirubin Total 0.3 mg/dL (0.0-1.0); Blood Urea Nitrogen 15 mg/dL (9-16); Calcium 10.2 mg/dL (8.4-10.2); Carbon Dioxide 23 mmol/L (22-29); Chloride 105 mmol/L (96-108); Estimated Glomerular Filt Rate > 60; Glucose Random 107 mg/dL (60-115); Sodium 143 mmol/L (135-145); Total Protein 7.9 g/dL (6.5-8.0)
[2025-04-03] MEDS: Magnesium Sulfate/H2O 2 GM/50 ML PIGGYBACK IV (00:53)
[2025-04-03 00:55] LABS: Troponin-I High Sensitivity 3.4 ng/L (<3.5-17.0)
[2025-04-03 01:12] LABS: Influenza A PCR NEGATIVE (Negative); Influenza B PCR NEGATIVE (Negative); Resp Syncy Virus RNA Qual PCR NEGATIVE (Negative); SARS COV2 PCR INHOUSE NEGATIVE (Negative)
--- NOTE | 2025-04-03 01:21 | MHC.EDTECH ---
Both sets of blood culture and lactic acid drawn and sent to lab ,Patient daughter at bedside .
--- NOTE | 2025-04-03 01:38 | PC.NURSE ---
critical: 2.4 lactic acid
[2025-04-03 01:39] LABS: Lactic Acid 2.4 mmol/L (0.5-2.0)
[2025-04-03] MEDS: levoFLOXacin/D5W 500 MG/100 ML PIGGYBACK 100 MG IV (01:40)
--- NOTE | 2025-04-03 02:11 | MHC.EDTECH ---
ambulation trial done ,Patient walk about 12 ft with walker , 02 sat was at 92 % on room air ,then Patient report short of breath and was assisted back to bed ,o 2 sat was between 92 -94 % on room air ,Patient said she was anxious ,Provider aware .
[2025-04-03] MEDS: Albuterol Sulfate (0.083%) 2.5 MG/3 ML VIAL.NEB 10 MG INHALE (02:34)
[2025-04-03 03:13] LABS: Reflex Lactate? Lactic Acid Added
--- NOTE | 2025-04-03 03:41 | MHC.EDTECH ---
Patient lactic acid is delay ,because Pt is in ct scan .
[2025-04-03] MEDS: iohexoL 350 MG/ML 100 ML INFUS..BTL IV (03:42)
[2025-04-03] MEDS: Furosemide 20 MG/2 ML VIAL 10 MG IVPUSH (03:46)
--- NOTE | 2025-04-03 04:02 | MHC.EDTECH ---
Patient back from ct scan ,lactic acid drawn and sent to lab ,0400 vitals and rounding done ,Patient much more comfortable sitting up watching television ,Pt daughter at bedside ,call reed within Pt reach .
[2025-04-03 04:20] LABS: ~Lactic Acid-LAB USE ONLY 2.2 mmol/L (0.5-2.0)
--- NOTE | 2025-04-03 05:30 | P.HPHOSP_ITS ---
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 Pt denies fever or chills. Patient felt she may have had an panic attack at the time. Patient denied any chest pain, nausea or vomiting. Patient states she does not use home O2. Patient also reports problems swallowing feeling like food and pills often times get stuck in the esophagus. Incidentally patient is scheduled for colonoscopy in 1 week but there is no plan for an upper scope. In the emergency department patient was started on levofloxacin, methylprednisolone, and magnesium. Patient originally on Oxymizer 6 L, now currently on room air satting 91% with bilateral adventitious lung sounds. Respiratory rate 22. Heart rate 108, sinus tach. Patient afebrile. Leukocytosis of 12.9. LA 2.4 then 2.2, attributed to patient's nebulizer treatments with EMS and in ED. BNP 21, troponin 3.4. Chest x-ray with small bilateral pleural effusions and bibasilar atelectasis and/or consolidation. CTA completed negative for PE, noted moderate bilateral pleural effusions subsegmental ateleectasis versus infiltrate. NArrowing of LSC artery, possible subclavian steal syndrome. Left axillary lymphadenopathy 2.5 cm. Incidentally patient recently started on Trulicity, having issues with constipation and low blood sugars at home. Patient has notified her dormitory counselor. No evidence of ileus or bowel obstruction. Patient admitted with evidence of hypoxia and treatment for pneumonia. Review of Systems 2 Review of Systems: Patient denies chest pain, abdominal pain, nausea or vomiting. Pt denies dizziness, visual changes or HAs. Pt does have difficulty swallowing. Patient reports last bowel movement 4-5 days prior. Patient does have occasional nausea in the morning upon wakening which resolves with eating. Patient has had low blood sugars but nonetheless 24 hours. Yes all other systems are reviewed and are negative PMFSH Medical History TIA (transient ischemic attack) (~12/2024) Recent bereavement Environmental and seasonal allergies HLD (hyperlipidemia) Multinodular goiter Peripheral neuropathy History of short term memory loss Port-A-Cath in place Smoker Family history of prostate cancer in father Leg swelling Shortness of breath Effusion of left knee Weakness Fall Thyroid nodule Adrenal adenoma Vision changes Diabetes History of palpitations History of unsteady gait Low back pain Arthritis Mild heartburn Hx of renal calculi Vaginal yeast infection Encounter to discuss test results 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 Brother No problems noted. Daughter No problems noted. Surgical History Hx of colonoscopy H/O total mastectomy of left breast (12/21/22) History of biopsy History of endometrial ablation Hx of tubal ligation History of tonsillectomy History of appendectomy History of cholecystectomy History of bladder surgery History of left knee replacement Social History Household Members: Family Household Members Other:: adult daughter Housing: House Are you a primary child caregiver to a significant other at home: No Do you presently have visiting nurse or other home services: No Alcohol intake: current Alcohol intake frequency: holidays/special occasions only Comment: Fell 08/2022, leg weakness 1 glass on holidays Patient Tobacco Use Status: Current everyday Tobacco user Tobacco use type: Cigarette Cigarette Packs Per Day: 1 Cigarettes Per Day: 20.0 Years Smoked: 40, 1 pack a day e-Cigarette/Vaping Use: Never Used Second Hand Smoke Exposure: Yes Advance Directives: No Advance Directives Information Provided: Yes Do you have a plan to hurt others: No Plan Patient : No service: No Current occupational status: disabled Cognitive needs: No Hearing needs: No Vision needs: Yes Ebola Risk: Travel/Contact With Anyone From Affected Area/s: No Has Patient Experienced Ebola Symptoms: No Meds Allergies Allergy/AdvReac Type Severity Reaction Status Date / Time diclofenac [From Voltaren] Allergy Severe enlarged Verified 04/03/25 01:00 liver lisinopril [From Zestril] Allergy Severe Angioedema Verified 04/03/25 01:00 losartan Allergy Severe Angioedema Verified 04/03/25 01:00 omeprazole Allergy Intermediate elevated Verified 04/03/25 01:00 blood pressure Penicillins [PENICILLINS] Allergy Intermediate Facial Verified 04/03/25 01:00 Swelling oxybutynin [Oxybutynin] AdvReac Severe body Verified 04/03/25 01:00 twitching gabapentin AdvReac Intermediate Hypertensio Verified 04/03/25 01:00 n metformin AdvReac Intermediate Diarrhea Verified 04/03/25 01:00 duloxetine AdvReac Intermediate tachycardia Uncoded 04/03/25 01:00 Active Medications: Current Medications Acetaminophen (Acetaminophen 325 Mg Tablet) 650 mg PO Q6H PRN PRN Reason: Pain, Mild 1-3,fever,headache Albuterol/Ipratropium (Albuterol/Iprat 2.5/0.5mg 3 Ml Ampul.Neb) 3 ml INHALE Q4H PRN PRN Reason: Shortness of Breath/Wheezing Calcium Carbonate (Calcium Carbonate 750 Mg Tab.Chew) 750 mg PO Q4H PRN PRN Reason: Heartburn Ceftriaxone Sodium (Ceftriaxone Sodium 1 Gm Vial) 1 gm IVPUSH Q24H [place] Dextrose (Dextrose 50 % 25 Gm/50 Ml Syringe) 25 gm IVPUSH Q15M PRN; Protocol PRN Reason: per Hypoglycemia Standing Ord. Enoxaparin Sodium (Enoxaparin Sodium 40 Mg/0.4 Ml Syringe) 40 mg SUBCUT Q24H [place] Glucose (Glucose Gel 15 Gm Gel..Gram.) 15 gm PO Q15M PRN; Protocol PRN Reason: per Hypoglycemia Standing Ord. Azithromycin 500 mg/ Sodium (Chloride) 250 mls @ 125 mls/hr IV Q24H [place] Insulin Human Lispro (Insulin Lispro 100 Unit/Ml 3 Ml Vial) 0 unit SUBCUT QIDACHS [place]; Protocol Magnesium Hydroxide (Milk Of Magnesia 30 Ml Oral.Susp) 30 ml PO DAILY PRN PRN Reason: Constipation Melatonin (Melatonin 3 Mg Tablet) 6 mg PO BEDTIME PRN PRN Reason: Insomnia Methylprednisolone Sodium Succinate (Methylprednisolone Sod Succ 40 Mg/Ml Vial) 40 mg IVPUSH Q12H [place] Omeprazole (Omeprazole 20 Mg Capsule.Dr) 20 mg PO DAILY@0630 [facility] Ondansetron HCl (Ondansetron Hcl 4 Mg/2 Ml Vial) 4 mg IVPUSH Q8H PRN PRN Reason: Nausea and Vomiting Senna (Sennosides 8.6 Mg Tablet) 17.2 mg PO BEDTIME [facility] Sodium Chloride (0.9 % Sodium Chloride Flush 3 Ml Syringe) 3 ml IVFLUSH QSHIFT [place] Home Medications ?Medication ?Instructions ?Recorded ?Confirmed ?Last Taken ?Type acetaminophen 325 mg capsule 325 mg PO QID PRN Pain 09/01/22 03/28/25 Unknown History cyanocobalamin (vitamin B-12) 1,000 mcg PO DAILY 09/04/22 03/28/25 09/03/22 History 1,000 mcg tablet ferrous sulfate 325 mg (65 mg 325 mg PO FR@0900 08/09/24 03/28/25 Unknown History iron) tablet (Iron (ferrous sulfate)) zinc gluconate 50 mg tablet 50 mg PO DAILY 08/09/24 03/28/25 Unknown History Physical Exam 2 Vital Signs and Narrative: Vital Signs: Last Vital Signs Temp 98.4 F 04/03/25 03:56 Pulse 108 H 04/03/25 03:56 Resp 20 04/03/25 03:56 BP 127/59 L 04/03/25 03:56 Pulse Ox 97 04/03/25 03:56 O2 Del Method Oxymask 04/03/25 03:56 O2 Flow Rate 6 04/03/25 03:56 BMI result Body Mass Index 37.3 Alert and orientated X3, able to give good history. Neuro: CN II-X11 intact, no deficits, visual acuity intact EYES: PERRLA, EOM intact ENT: hearing intact, no issues with swallowing, uvula midline, lips moist, nares patent no epistaxis, alopecia, Hirsuitism facial Cardiac: S1 S2 tachycardic, no murmur, no JVD, no edema in Lower ext Pulmonary: lungs with bilateral rhonchi throughout, pulse ox 91-93 on room air, respiratory rate 22 Abdominal: BS mildly hypoactive in all 4 quadrants, no guarding, tenderness, rebounding, some mild distention present MSK: strength 4/5 upper and lower extremities : no CVA tenderness no bladder distension Extremities: no edema in lower extremities, PT and DP pulses palpable +2 Psych: mood stable, judgement and insight good Skin: No open wounds, left breast mastectomy scar fully healed Results Labs 04/03/25 00:26 04/03/25 00:26 Labs: Laboratory Results - last 24 hr 04/03/25 04/03/25 04/03/25 00:26 00:33 01:08 MCV 92.0 MCH 30.6 MCHC 33.3 RDW 13.4 Plt Count 339 D MPV 10.1 Immature Gran % (Auto) 1.0 H Neut % (Auto) 67.7 Lymph % (Auto) 19.4 L [place] % (Auto) 8.8 Eos % (Auto) 2.2 Baso % (Auto) 0.9 Lymph # (Auto) 2.5 [place] # (Auto) 1.1 Eos # (Auto) 0.3 Baso # (Auto) 0.1 Abs Immat Gran (auto) 0.13 H Absolute Neuts (auto) 8.7 H Absolute Nucleated RBC 0.000 Nucleated RBC % (auto) 0.0 VBG pH 7.39 VBG pCO2 45 VBG pO2 30 VBG HCO3 27 H VBG O2 Saturation 45.0 VBG Base Excess 2.3 Anion Gap 20 Estim Creat Clear Calc TNP Estimated GFR > 60 Random Glucose 107 Lactic Acid 2.4 H* Lactic Acid F/U @ 2Hr Calcium 10.2 D Total Bilirubin 0.3 AST 34 H ALT 19 Alkaline Phosphatase 143 H B-Natriuretic Peptide 21 Total Protein 7.9 Albumin 4.0 Influenza Type A (PCR) NEGATIVE Influenza Type B (PCR) NEGATIVE RSV RNA Qual (PCR) NEGATIVE SARS-CoV-2 RNA (RT-PCR) NEGATIVE 04/03/25 04:01 MCV MCH MCHC RDW Plt Count MPV Immature Gran % (Auto) Neut % (Auto) Lymph % (Auto) R[place] % (Auto) Eos % (Auto) Baso % (Auto) Lymph # (Auto) R[place] # (Auto) Eos # (Auto) Baso # (Auto) Abs Immat Gran (auto) Absolute Neuts (auto) Absolute Nucleated RBC Nucleated RBC % (auto) VBG pH VBG pCO2 VBG pO2 VBG HCO3 VBG O2 Saturation VBG Base Excess Anion Gap Estim Creat Clear Calc Estimated GFR Random Glucose Lactic Acid Lactic Acid F/U @ 2Hr 2.2 H* Calcium Total Bilirubin AST ALT Alkaline Phosphatase B-Natriuretic Peptide Total Protein Albumin Influenza Type A (PCR) Influenza Type B (PCR) RSV RNA Qual (PCR) SARS-CoV-2 RNA (RT-PCR) ECG Attestation: I personally reviewed and interpreted this ECG as follows: Imaging Radiologist's Impressions: CTA IMPRESSION: 1. Moderate pleural effusions with basilar subsegmental atelectasis or infiltrate. 2. Atherosclerotic narrowing of the origin of the left subclavian artery. Follow-up carotid ultrasound may be helpful if there is clinical concern of subclavian steal phenomenon. 3. No central or proximal segmental pulmonary embolism identified. 4. Marked left axillary lymphadenopathy up to 2.5 cm diameter. CXR IMPRESSION: 1. Small bilateral pleural effusions. 2. Bibasilar atelectasis and/or consolidation. Recommend attention on follow-up to ensure resolution. 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 Patient being admitted with the following medical problems: Acute hypoxic respiratory failure without evidence of sepsis -oxygen nasal cannula, wean as tolerated -CTA negative for PE -likely pneumonia bilaterally, maybe possibly from aspiration noting patient's report of dysphagia with cough -continue methylprednisolone 40 mg IV b.i.d., taper -patient received 2 g of magnesium -duo nebs p.r.n. -supportive care -incentive spirometry Pneumonia -patient is started on ceftriaxone and azithromycin -wean O2 as tolerated COPD -secondary to a 40 year smoking history -patient is not currently on home O2, may require home O2 evaluation for discharge -recommend pulmonary consultation as an outpatient -duo nebs p.r.n. -methylprednisolone 40 mg b.i.d. and taper -counseling provided on the benefits of smoking cessation Dysphagia -GI consulted -speech therapy eval ordered -omeprazole ordered Insulin-dependent diabetes -sliding scale insulin -diabetic diet -patient educated on the side effects of Trulicity including constipation, ileus and bowel obstruction Constipation -adding MiraLax daily -adding senna at HS -milk of Mag as needed -Dulcolax suppository as needed -patient educated that her constipation may be due to her Trulicity which was started recently Nicotine dependence -patient counseled on the benefits of smoking cessation -patient defers need for nicotine patch at this time DVT prophylaxis: Lovenox PPI prophylaxis: Omeprazole Med rec pending Full code status Quality Stroke Does the patient have a stroke diagnosis?: No Reason for No Anti-thrombotic by Day Two: N/A - Med Ordered VTE Prior VTE?: No VTE Risk Level:: Medical - moderate - high VTE Device Contraindication: N/A - Device Ordered VTE Drug Contraindication: N/A - Med Ordered
[2025-04-03] MEDS: cefTRIAXone sodium 1 GM VIAL IVPUSH (05:34)
[2025-04-03] MEDS: Azithromycin 500 MG in 0.9 % Sodium Chloride 250 ML 125 MG IV (05:47)
--- NOTE | 2025-04-03 06:03 | MHC.EDTECH ---
0600 rounding done ,vitals taken ,Patient was incontinent of urine ,care given and bedding change ,blood sugar check and Patient belongings done .
[2025-04-03 06:04] LABS: Reflex Lactate? 2 Y
[2025-04-03 06:09] LABS: Glucose, Whole Blood 311 mg/dL (60-115)
--- NOTE | 2025-04-03 06:11 | PC.NURSE ---
ADMIT NOTE: pt presents to ED for sudden dyspnea, also reports problems swallowing and feeling like food and pills often times get stuck in the esophagus. ADMIT: acute hypoxic resp failure. lactic elevated after breathing treatments. purewick in place. pt A/O x4 calm and cooperative with care, ambulates with walker for a few steps. 20g IV RAC. pt very anxious and tremulous. sinus tach on monitor. speech/swallow eval today. no home O2 at baseline. CTA completed negative for PE, noted moderate bilateral pleural effusions subsegmental ateleectasis versus infiltrate.
[2025-04-03 06:28] LABS: Basophils Percent Auto 0.7 % (0-2); Eosinophils Percent Auto 0.1 % (0-4); PLT CLUMP 1; Red Cell Distribution Width 13.6 % (11.0-16.0); SCAN SMEAR FLAG 1
[2025-04-03 06:30] LABS: Basophils Absolute Auto 0.1 X10*3/uL (0.0-0.2); Hemoglobin 15.5 g/dl (12.0-16.0); Imm Gran Abs Auto 0.17 X10*3/uL (0.00-0.03); Imm Gran Pct Auto 1.3 % (0.0-0.4); Lymphocytes Absolute Auto 0.7 X10*3/uL (1.2-4.9); Lymphocytes Percent Auto 5.3 % (20-40); MANUAL DIFF FLAG SCAN; Mean Corpuscular HGB Conc 33.7 g/dl (31.0-35.0); Mean Corpuscular Hemoglobin 30.8 pg (27.0-33.0); Mean Corpuscular Volume 91.3 fL (80.0-98.0); Mean Platelet Volume 10.5 fL (9.4-12.3); Monocytes Absolute Auto 0.1 X10*3/uL (0.1-1.2); Neutrophils Absolute Auto 12.4 x10*3/uL (2.0-8.3); Neutrophils Percent Auto 91.6 % (45-73); Red Blood Count 5.04 X10*6/uL (4.20-5.50)
--- NOTE | 2025-04-03 06:31 | MHC.EDTECH ---
3 rd lactic acid and am labs drawn and sent to lab ,Patient had another inconientance episode of urine ,care given ,Pure wick in Place .
[2025-04-03 06:43] LABS: Alanine Aminotransferase 17 U/L (0-31); Albumin Level 3.9 g/dL (3.5-5.0); Alkaline Phosphatase 133 U/L (39-117); Anion Gap 23 (12-20); Aspartate Amino Transferase 48 U/L (5-31); Bilirubin Total 0.2 mg/dL (0.0-1.0); Blood Urea Nitrogen 18 mg/dL (9-16); Calcium 9.4 mg/dL (8.4-10.2); Carbon Dioxide 14 mmol/L (22-29); Chloride 106 mmol/L (96-108); Creatinine Clr Calc Pharmacy 66.7; Estimated Glomerular Filt Rate 58; Glucose Random 311 mg/dL (60-115); Potassium 5.2 mmol/L (3.3-5.1); Sodium 138 mmol/L (135-145); Total Protein 8.3 g/dL (6.5-8.0)
[2025-04-03 06:49] LABS: Platelet Count 273 X10*3/uL (160-400); SLIDE REVIEW VERIFIED; White Blood Count 13.5 X10*3/uL (4.8-10.8); ~Lactic Acid-LAB USE ONLY 3.7 mmol/L (0.5-2.0)
--- NOTE | 2025-04-03 06:53 | PC.NURSE ---
IV in RAC was removed/fell out.
[2025-04-03 07:16] LABS: Glucose, Whole Blood 334 mg/dL (60-115)
[2025-04-03] MEDS: Insulin Lispro 100 UNIT/ML 3 ML VIAL SUBCUT ×4 (07:19→21:34)
--- NOTE | 2025-04-03 07:26 | PC.NURSE ---
pt is alert and oriented, skin pwd, respirations slightly labored breathing at about 24-26, ls clear, pt is sating well at 95% on room air, pt is quite shaky right now and appears anxious, pt is reporting bilateral shoulder pain and neck pain 8/10, sinus tach on the monitor ranging from 105-115, perwick in place, new iv started on the right forearm, in pt chart is listed that she is allergic to omeprozol allergy is raises her blood pressure pt is not sure of her medications but according to her pharmacy claime that this rn can see the pt has not filled since october of 2024 will be holding the omeprozol at this tieme
[2025-04-03] MEDS: Sodium Zirconium Cyclosilicate 5 GM POWD.PACK PO (08:09)
[2025-04-03 08:20] LABS: ABG Base Excess -4.8 mmol/L; ABG HCO3 17 mmol/L (22-26); ABG pCO2 25 mmHg (32-45); ABG pH 7.43 (7.35-7.45); ABG pO2 77 mmHg (83-108)
[2025-04-03 08:25] LABS: Anion Gap 22 (12-20); Blood Urea Nitrogen 19 mg/dL (9-16); Calcium 9.6 mg/dL (8.4-10.2); Carbon Dioxide 16 mmol/L (22-29); Chloride 105 mmol/L (96-108); Creatinine Clr Calc Pharmacy 59.9; Estimated Glomerular Filt Rate 51; Glucose Random 363 mg/dL (60-115); Potassium 4.2 mmol/L (3.3-5.1); Sodium 139 mmol/L (135-145)
[2025-04-03] MEDS: LORazepam 1 MG TABLET PO (09:02)
[2025-04-03] MEDS: polyethylene glycoL 3350 17 GM POWD.PACK PO (09:02)
[2025-04-03] MEDS: Enoxaparin Sodium 40 MG/0.4 ML SYRINGE SUBCUT (09:02)
[2025-04-03] MEDS: Famotidine 20 MG TABLET PO (09:02)
--- NOTE | 2025-04-03 10:00 | PM.CNNEP ---
History of Present Illness Reason for Consult Consult date: 04/03/25 Chief Complaint Chief complaint: dyspnea, bilateral pleural effusions History of Present Illness Narrative: Pt is a 65 y/o female with a medical history of DMII, COPD, anxiety, tobacco dependence, HTN, breast CA in remission, urinary incontinence, obesity, PVD. presented 04/03 with dyspnea and cough. Nephrology consulted for metabolic acidosis, hyperkalemia patient tachypneic at bedside. complains of shortness of breath. states she is making urine, denies pain/difficulty with urination potassium 5.2, serum bicarb 14, AG 23 creatinine 0.97, GFR 58 lactic acid 3.7, glucose 363. Review of Systems Constitutional: Reports fatigue Cardiovascular: Denies chest pain, Denies leg edema and Reports dyspnea Respiratory: Reports cough and Reports dyspnea Gastrointestinal: Denies abdominal pain, Denies diarrhea, Denies nausea and Denies vomiting Genitourinary: Denies hematuria, Denies dysuria and Denies flank pain Musculoskeletal: Denies back pain and Denies muscle cramps Skin/Breast: Denies rash Endocrine: Reports fatigue PMFSH Past Medical History Medical History TIA (transient ischemic attack) (~12/2024) Recent bereavement Environmental and seasonal allergies HLD (hyperlipidemia) Multinodular goiter Peripheral neuropathy History of short term memory loss [place] in place Smoker Family history of prostate cancer in father Leg swelling Shortness of breath Effusion of left knee Weakness Fall Thyroid nodule Adrenal adenoma Vision changes Diabetes History of palpitations History of unsteady gait Low back pain Arthritis Mild heartburn Hx of renal calculi Vaginal yeast infection Encounter to discuss test results 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 Brother No problems noted. Daughter No problems noted. Surgical History Surgical History Hx of colonoscopy H/O total mastectomy of left breast (12/21/22) History of biopsy History of endometrial ablation Hx of tubal ligation History of tonsillectomy History of appendectomy History of cholecystectomy History of bladder surgery History of left knee replacement Social History Social History Household Members: Children Household Members Other:: adult daughter Housing: Condominium Are you a primary health care manager to a significant other at home: No Do you presently have visiting nurse or other home services: No (daughter cares for her) Alcohol intake: current Alcohol intake frequency: holidays/special occasions only Comment: Fell 08/2022, leg weakness 1 glass on holidays Patient Tobacco Use Status: Former Tobacco user Tobacco use type: Cigarette Cigarette Packs Per Day: 1 Cigarettes Per Day: 20.0 Years Smoked: 40, 1 pack a day e-Cigarette/Vaping Use: Former Use Second Hand Smoke Exposure: No service: No Current occupational status: disabled Cognitive needs: No Hearing needs: No Vision needs: Yes Travel History Ebola Risk: Travel/Contact With Anyone From Affected Area/s: No Has Patient Experienced Ebola Symptoms: No Meds Allergies Allergy/AdvReac Type Severity Reaction Status Date / Time diclofenac [From Voltaren] Allergy Severe enlarged Verified 04/03/25 01:00 liver lisinopril [From Zestril] Allergy Severe Angioedema Verified 04/03/25 01:00 losartan Allergy Severe Angioedema Verified 04/03/25 01:00 omeprazole Allergy Intermediate elevated Verified 04/03/25 01:00 blood pressure Penicillins [PENICILLINS] Allergy Intermediate Facial Verified 04/03/25 01:00 Swelling oxybutynin [Oxybutynin] AdvReac Severe body Verified 04/03/25 01:00 twitching gabapentin AdvReac Intermediate Hypertensio Verified 04/03/25 01:00 n metformin AdvReac Intermediate Diarrhea Verified 04/03/25 01:00 duloxetine AdvReac Intermediate tachycardia Uncoded 04/03/25 01:00 Active Medications: Current Medications Acetaminophen (Acetaminophen 325 Mg Tablet) 650 mg PO Q6H PRN PRN Reason: Pain, Mild 1-3,fever,headache Bisacodyl (Bisacodyl 10 Mg Supp.Rect) 10 mg NE BEDTIME PRN PRN Reason: Constipation Calcium Carbonate (Calcium Carbonate 750 Mg Tab.Chew) 750 mg PO Q4H PRN PRN Reason: Heartburn Ceftriaxone Sodium (Ceftriaxone Sodium 1 Gm Vial) 1 gm IVPUSH Q24H [facility] Last Admin: 04/03/25 05:34 Dose: 1 gm Dextrose (Dextrose 50 % 25 Gm/50 Ml Syringe) 25 gm IVPUSH Q15M PRN; Protocol PRN Reason: per Hypoglycemia Standing Ord. Enoxaparin Sodium (Enoxaparin Sodium 40 Mg/0.4 Ml Syringe) 40 mg SUBCUT Q24H [facility] Famotidine (Famotidine 20 Mg Tablet) 20 mg PO DAILY [facility] Glucose (Glucose Gel 15 Gm Gel..Gram.) 15 gm PO Q15M PRN; Protocol PRN Reason: per Hypoglycemia Standing Ord. Azithromycin 500 mg/ Sodium (Chloride) 250 mls @ 125 mls/hr IV Q24H [facility] Last Infusion: 04/03/25 08:09 Dose: Infused Insulin Human Lispro (Insulin Lispro 100 Unit/Ml 3 Ml Vial) 0 unit SUBCUT QIDACHS [facility]; Protocol Last Admin: 04/03/25 07:19 Dose: 8 unit Levalbuterol HCl (Levalbuterol Hcl 1.25 Mg/3 Ml Vial.Neb) 1.25 mg INHALE RTID [place] Levalbuterol HCl (Levalbuterol Hcl 1.25 Mg/3 Ml Vial.Neb) 1.25 mg INHALE Q3H PRN PRN Reason: sob Lorazepam (Lorazepam 1 Mg Tablet) 1 mg PO DAILY PRN PRN Reason: Anxiety Magnesium Hydroxide (Milk Of Magnesia 30 Ml Oral.Susp) 30 ml PO DAILY PRN PRN Reason: Constipation Melatonin (Melatonin 3 Mg Tablet) 6 mg PO BEDTIME PRN PRN Reason: Insomnia Methylprednisolone Sodium Succinate (Methylprednisolone Sod Succ 40 Mg/Ml Vial) 40 mg IVPUSH Q12H [facility] Ondansetron HCl (Ondansetron Hcl 4 Mg/2 Ml Vial) 4 mg IVPUSH Q8H PRN PRN Reason: Nausea and Vomiting Polyethylene Glycol (Polyethylene Glycol 3350 17 Gm Powd.Pack) 17 gm PO DAILY [facility] Senna (Sennosides 8.6 Mg Tablet) 17.2 mg PO BEDTIME [facility] Sodium Chloride (0.9 % Sodium Chloride Flush 3 Ml Syringe) 3 ml IVFLUSH QSHIFT [facility] Last Admin: 04/03/25 07:35 Dose: Not Given Home Medications ?Medication ?Instructions ?Recorded ?Confirmed ?Last Taken ?Type acetaminophen 325 mg capsule 325 mg PO QID PRN Pain 09/01/22 04/03/25 Unknown History cyanocobalamin (vitamin B-12) 1,000 mcg PO DAILY 09/04/22 04/03/25 04/02/25 History 1,000 mcg tablet ferrous sulfate 325 mg (65 mg 325 mg PO FR@0900 08/09/24 04/03/25 03/29/25 History iron) tablet (Iron (ferrous sulfate)) zinc gluconate 50 mg tablet 50 mg PO DAILY 08/09/24 04/03/25 04/02/25 History albuterol sulfate 90 mcg/actuation 1 puff inhalation QID PRN 04/03/25 04/03/25 04/02/25 History aerosol inhaler Shortness Of Breath Or Wheezing atorvastatin 80 mg tablet 80 mg PO DAILY 04/03/25 04/03/25 04/02/25 History cholecalciferol (vitamin D3) 50 50 mcg PO Q48H 04/03/25 04/03/25 04/01/25 History mcg (2,000 unit) capsule clotrimazole 1 % topical cream 1 appl topical BID PRN Fungal 04/03/25 04/03/25 Unknown History Infections dulaglutide 0.75 mg/0.5 mL 0.75 mg subcut FR 04/03/25 04/03/25 03/29/25 History subcutaneous pen injector (Trulicity) fluticasone propionate 50 1 spray intranasal BEDTIME 04/03/25 04/03/25 04/02/25 History mcg/actuation nasal spray,suspension (Flonase Allergy Relief) insulin aspart U-100 100 unit/mL 10 - 20 unit subcut TIDAC 04/03/25 04/03/25 04/02/25 History (3 mL) subcutaneous pen (Novolog FlexPen U-100 Insulin aspart) ondansetron 4 mg disintegrating 4 mg PO Q8H PRN Nausea And Vomiting 04/03/25 04/03/25 Unknown History tablet sennosides 8.6 mg tablet (Senokot) 8.6 mg PO BID PRN Constipation 04/03/25 04/03/25 04/02/25 History solifenacin 5 mg tablet (Vesicare) 5 mg PO BEDTIME 04/03/25 04/03/25 04/02/25 History triamcinolone acetonide 0.1 % 1 appl topical DAILY PRN Itchy/Dry 04/03/25 04/03/25 Unknown History topical cream Skin Physical Exam Vital Signs: Last Vital Signs Temp 98.4 F 04/03/25 07:04 Pulse 113 H 04/03/25 08:11 Resp 24 H 04/03/25 08:11 BP 118/63 04/03/25 08:11 Pulse Ox 95 04/03/25 08:11 O2 Del Method Room Air 04/03/25 08:11 O2 Flow Rate 6 04/03/25 03:56 BMI result Body Mass Index 37.3 Const General: no acute distress, alert and awake Resp Effort & Inspection: labored Auscultation: crackles and diminished lung sounds Cardio Rate: regular rate Rhythm: regular rhythm Heart sounds: S1 normal heart sound present and S2 normal heart sound present GI Palpation (GI): Soft to palpation and nontender General: Yes no CVA tenderness Back/Spine/Pelvis Back: no CVA tenderness Skin Rashes: no rashes Extrem General: No edema and No pedal edema Results Lab Results 04/03/25 06:19 04/03/25 07:57 Lab results: Chemistry 04/03/25 04/03/25 04/03/25 00:26 06:19 07:57 Sodium 143 138 139 Potassium 5.0 D 5.2 H 4.2 Carbon Dioxide 23 14 L 16 L BUN 15 18 H 19 H Creatinine 0.81 0.97 1.08 Calcium 10.2 D 9.4 D 9.6 Hematology 04/03/25 04/03/25 00:26 06:19 WBC 12.9 H 13.5 H Hgb 15.6 15.5 Plt Count 339 D 273 Assessment and Plan (1) Respiratory alkalosis: Status: Acute (2) Hyperkalemia: Status: Acute (3) Metabolic acidosis: Status: Acute Plan Mixed primary AG metabolic acidosis, and primary Respiratory alkalosis with metabolic compensation- recommended ABG, which shows pH of 7.43, pCO2 of 25, bicarb 17, primary respiratory alkalosis with metabolic compensation also primary AG metabolic acidosis- elevated lactic acid recommend treating underlying cause of respiratory alkalosis recommend beta hydroxybuterate to rule out ketosis as underlying cause of metabolic acidosis; consider/treat other causes of elevated lactic acid hyperkalemia has resolved. Discussed with Dr Aguirre. Procedures Date of Service Date of Service: 04/03/25
--- NOTE | 2025-04-03 10:09 | PHA.MEDREC ---
Addendum entered by Vincent Giang 04/03/25 10:51: reviewed Original Note: Pharmacy Consult ? Medication Reconciliation Pharmacy has completed the medication reconciliation. Spoke with patient and she was able to confirm some of her medications and stated her daughter helps her with the medications and will be able to help us more. I called patients daughter and she was able to confirm her medications. The daughter confirmed her mom is taking her Vitamin D3 every other day now instead of daily and has been doing it for a while like this now and is due for it. She confirmed her moms Trulicity on Fridays and stated she was taking the 0.75mg strength and last took that dose Thursday 03/29 but stated it was just increased to 1.5mg and they are waiting for that to come in mail order. The daughter confirmed the Lantus 28 units daily and Novolog 10-20 units TIDAC. The patient is no longer taking the Losartan due to having a bad reaction to it. Per the daughter the patient is not taking the Mybetriq anymore and is suppose to start Gemtesa. The patient has not started Gemtesa due to getting a colonoscopy this Tuesday 04/10 and not wanting to start it and develop any other reactions before the procedure. The patient also stopped the Baby Aspirin and the Iron tablet about 1 week ago due to the colonoscopy. The patient has not been compliant with taking her Anoro Ellipta inhaler daily and pt nor daughter know the last time the pt truly took that medication.
[2025-04-03 10:18] LABS: ABG Refer to POC result
[2025-04-03 11:17] LABS: Glucose, Whole Blood 285 mg/dL (60-115)
--- NOTE | 2025-04-03 11:24 | PM.CNPUL ---
History of Present Illness History of Present Illness Consult date: 04/03/25 Chief complaint: dyspnea, bilateral pleural effusions Narrative: 65-year-old lady recent 40+ pack-year smoker, with underlying history of COPD, diabetes mellitus, hypotension, anxiety, breast cancer status post left mastectomy, PVD admitted on 04/03/2025 with sudden onset of dyspnea when drinking cold water on a background of recently increased cough productive of yellowish to greenish sputum. On ER evaluation patient initially hypoxic, but later titrated to room air. CT angio chest with no evidence of pulmonary emboli, but with bilateral pleural effusions. Also noted mild leukocytosis with left shift. Patient started on empiric antibiotics and admitted to telemetry barry. Review of Systems Constitutional: Constitutional: Denies daytime sleepiness, Denies excessive sweating, Denies fatigue, Denies fever(s), Denies lethargy, Denies malaise, Denies night sweats, Denies snoring and Denies weight loss Eyes: Eyes: Denies blurry vision and Denies itchy eyes ENT: Denies nasal congestion, Denies post nasal drip, Denies sinus pain, Denies sinus pressure and Denies other ( Thrush) Cardiovascular: Cardiovascular: Denies chest pain, Denies pedal edema, Reports dyspnea, Denies orthopnea and Denies paroxysmal nocturnal dyspnea Respiratory: Respiratory: Reports cough, Denies hemoptysis, Reports excessive phlegm production, Reports dyspnea, Denies snoring and Denies wheezing Gastrointestinal: Gastrointestinal: Denies abdominal pain and Denies heartburn Musculoskeletal: Musculoskeletal: Denies myalgias, Denies arthralgias and Denies joint swelling Integumentary/Breasts: Skin/Breast: Denies rash Neurologic: Denies memory loss and Denies seizure-like activity Psychiatric: Psychiatric: Denies abnormal sleep pattern, Denies anxiety and Denies memory loss Endocrine: Endocrine: Denies excessive sweating, Denies fatigue and Denies heat intolerance Hematologic/Lymphatic: Hematologic/Lymphatic: Denies easy bruising Allergic/Immunologic: Allergic/Immunologic: Denies itchy eyes, Denies seasonal rhinorrhea and Denies wheezing PMFSH Past Medical History Medical History TIA (transient ischemic attack) (~12/2024) Recent bereavement Environmental and seasonal allergies HLD (hyperlipidemia) Multinodular goiter Peripheral neuropathy History of short term memory loss [place] in place Smoker Family history of prostate cancer in father Leg swelling Shortness of breath Effusion of left knee Weakness Fall Thyroid nodule Adrenal adenoma Vision changes Diabetes History of palpitations History of unsteady gait Low back pain Arthritis Mild heartburn Hx of renal calculi Vaginal yeast infection Encounter to discuss test results 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 Brother No problems noted. Daughter No problems noted. Surgical History Surgical History Hx of colonoscopy H/O total mastectomy of left breast (12/21/22) History of biopsy History of endometrial ablation Hx of tubal ligation History of tonsillectomy History of appendectomy History of cholecystectomy History of bladder surgery History of left knee replacement Social History Social History Household Members: Children Household Members Other:: adult daughter [facility] Are you a primary healthcare market consultant to a significant other at home: No Do you presently have visiting nurse or other home services: No (daughter cares for her) Alcohol intake: current Alcohol intake frequency: holidays/special occasions only Comment: Fell 08/2022, leg weakness 1 glass on holidays Patient Tobacco Use Status: Former Tobacco user Tobacco use type: Cigarette Cigarette Packs Per Day: 1 Cigarettes Per Day: 20.0 Years Smoked: 40, 1 pack a day e-Cigarette/Vaping Use: Former Use Second Hand Smoke Exposure: No service: No Current occupational status: disabled Cognitive needs: No Hearing needs: No Vision needs: Yes Travel History Ebola Risk: Travel/Contact With Anyone From Affected Area/s: No Has Patient Experienced Ebola Symptoms: No Meds Allergies Allergy/AdvReac Type Severity Reaction Status Date / Time diclofenac [From Voltaren] Allergy Severe enlarged Verified 04/03/25 01:00 liver lisinopril [From Zestril] Allergy Severe Angioedema Verified 04/03/25 01:00 losartan Allergy Severe Angioedema Verified 04/03/25 01:00 omeprazole Allergy Intermediate elevated Verified 04/03/25 01:00 blood pressure Penicillins [PENICILLINS] Allergy Intermediate Facial Verified 04/03/25 01:00 Swelling oxybutynin [Oxybutynin] AdvReac Severe body Verified 04/03/25 01:00 twitching gabapentin AdvReac Intermediate Hypertensio Verified 04/03/25 01:00 n metformin AdvReac Intermediate Diarrhea Verified 04/03/25 01:00 duloxetine AdvReac Intermediate tachycardia Uncoded 04/03/25 01:00 Active Medications: Current Medications Acetaminophen (Acetaminophen 325 Mg Tablet) 650 mg PO Q6H PRN PRN Reason: Pain, Mild 1-3,fever,headache Bisacodyl (Bisacodyl 10 Mg Supp.Rect) 10 mg [place] BEDTIME PRN PRN Reason: Constipation Calcium Carbonate (Calcium Carbonate 750 Mg Tab.Chew) 750 mg PO Q4H PRN PRN Reason: Heartburn Ceftriaxone Sodium (Ceftriaxone Sodium 1 Gm Vial) 1 gm IVPUSH Q24H [facility] Last Admin: 04/03/25 05:34 Dose: 1 gm Dextrose (Dextrose 50 % 25 Gm/50 Ml Syringe) 25 gm IVPUSH Q15M PRN; Protocol PRN Reason: per Hypoglycemia Standing Ord. Enoxaparin Sodium (Enoxaparin Sodium 40 Mg/0.4 Ml Syringe) 40 mg SUBCUT Q24H [facility] Last Admin: 04/03/25 09:02 Dose: 40 mg Famotidine (Famotidine 20 Mg Tablet) 20 mg PO DAILY [facility] Last Admin: 04/03/25 09:02 Dose: 20 mg Glucose (Glucose Gel 15 Gm Gel..Gram.) 15 gm PO Q15M PRN; Protocol PRN Reason: per Hypoglycemia Standing Ord. Azithromycin 500 mg/ Sodium (Chloride) 250 mls @ 125 mls/hr IV Q24H [facility] Last Infusion: 04/03/25 08:09 Dose: Infused Insulin Human Lispro (Insulin Lispro 100 Unit/Ml 3 Ml Vial) 0 unit SUBCUT QIDACHS [facility]; Protocol Last Admin: 04/03/25 07:19 Dose: 8 unit Levalbuterol HCl (Levalbuterol Hcl 1.25 Mg/3 Ml Vial.Neb) 1.25 mg INHALE RTID [place] Levalbuterol HCl (Levalbuterol Hcl 1.25 Mg/3 Ml Vial.Neb) 1.25 mg INHALE Q3H PRN PRN Reason: sob Lorazepam (Lorazepam 1 Mg Tablet) 1 mg PO DAILY PRN PRN Reason: Anxiety Last Admin: 04/03/25 09:02 Dose: 1 mg Magnesium Hydroxide (Milk Of Magnesia 30 Ml Oral.Susp) 30 ml PO DAILY PRN PRN Reason: Constipation Melatonin (Melatonin 3 Mg Tablet) 6 mg PO BEDTIME PRN PRN Reason: Insomnia Methylprednisolone Sodium Succinate (Methylprednisolone Sod Succ 40 Mg/Ml Vial) 40 mg IVPUSH Q12H [place] Ondansetron HCl (Ondansetron Hcl 4 Mg/2 Ml Vial) 4 mg IVPUSH Q8H PRN PRN Reason: Nausea and Vomiting Polyethylene Glycol (Polyethylene Glycol 3350 17 Gm Powd.Pack) 17 gm PO DAILY [facility] Last Admin: 04/03/25 09:02 Dose: 17 gm Senna (Sennosides 8.6 Mg Tablet) 17.2 mg PO BEDTIME [place] Sodium Chloride (0.9 % Sodium Chloride Flush 3 Ml Syringe) 3 ml IVFLUSH QSHIFT [facility] Last Admin: 04/03/25 07:35 Dose: Not Given Home Medications ?Medication ?Instructions ?Recorded ?Confirmed ?Last Taken ?Type acetaminophen 325 mg capsule 325 mg PO QID PRN Pain 09/01/22 04/03/25 Unknown History cyanocobalamin (vitamin B-12) 1,000 mcg PO DAILY 09/04/22 04/03/25 04/02/25 History 1,000 mcg tablet ferrous sulfate 325 mg (65 mg 325 mg PO FR@0900 08/09/24 04/03/25 03/29/25 History iron) tablet (Iron (ferrous sulfate)) zinc gluconate 50 mg tablet 50 mg PO DAILY 08/09/24 04/03/25 04/02/25 History albuterol sulfate 90 mcg/actuation 1 puff inhalation QID PRN 04/03/25 04/03/25 04/02/25 History aerosol inhaler Shortness Of Breath Or Wheezing atorvastatin 80 mg tablet 80 mg PO DAILY 04/03/25 04/03/25 04/02/25 History cholecalciferol (vitamin D3) 50 50 mcg PO Q48H 04/03/25 04/03/25 04/01/25 History mcg (2,000 unit) capsule clotrimazole 1 % topical cream 1 appl topical BID PRN Fungal 04/03/25 04/03/25 Unknown History Infections dulaglutide 0.75 mg/0.5 mL 0.75 mg subcut FR 04/03/25 04/03/25 03/29/25 History subcutaneous pen injector (Trulicity) fluticasone propionate 50 1 spray intranasal BEDTIME 04/03/25 04/03/25 04/02/25 History mcg/actuation nasal spray,suspension (Flonase Allergy Relief) insulin aspart U-100 100 unit/mL 10 - 20 unit subcut TIDAC 04/03/25 04/03/25 04/02/25 History (3 mL) subcutaneous pen (Novolog FlexPen U-100 Insulin aspart) ondansetron 4 mg disintegrating 4 mg PO Q8H PRN Nausea And Vomiting 04/03/25 04/03/25 Unknown History tablet sennosides 8.6 mg tablet (Senokot) 8.6 mg PO BID PRN Constipation 04/03/25 04/03/25 04/02/25 History solifenacin 5 mg tablet (Vesicare) 5 mg PO BEDTIME 04/03/25 04/03/25 04/02/25 History triamcinolone acetonide 0.1 % 1 appl topical DAILY PRN Itchy/Dry 04/03/25 04/03/25 Unknown History topical cream Skin Physical Exam Vital Signs: Vital Signs: Last Vital Signs Temp 97 F 04/03/25 08:56 Pulse 110 H 04/03/25 08:56 Resp 19 04/03/25 08:56 BP 144/84 H 04/03/25 08:56 Pulse Ox 96 04/03/25 08:56 O2 Del Method Nasal Cannula 04/03/25 08:56 O2 Flow Rate 2 04/03/25 08:56 BMI result Body Mass Index 37.2 Const: General: no acute distress, alert and awake Nutritional Appearance: obese Eyes: Sclerae: sclerae normal EOM: EOMs intact bilaterally Neck: Neck: Yes no lymphadenopathy, Yes trachea midline and Yes supple Resp: Effort & Inspection: normal respiratory effort and no respiratory distress Auscultation: clear to auscultation bilaterally Cardio: Rate: tachycardic Rhythm: regular rhythm Heart sounds: no gallops, no murmurs and no rubs GI: Palpation (GI): Soft to palpation and Other GI palpation findings present ( Nontender) Auscultation: normal bowel sounds Extrem: General: Yes no pedal edema, No clubbing and No cyanosis Results Laboratory Findings 04/03/25 06:19 04/03/25 07:57 Abnormal lab findings: Abnormal Labs 04/03/25 04/03/25 04/03/25 00:26 00:33 01:08 WBC 12.9 H Immature Gran % (Auto) 1.0 H Neut % (Auto) Lymph % (Auto) 19.4 L [place] % (Auto) Lymph # (Auto) Abs Immat Gran (auto) 0.13 H Absolute Neuts (auto) 8.7 H ABG pCO2 at Pt Temp ABG pO2 at Pt Temp ABG HCO3 VBG HCO3 27 H Potassium Carbon Dioxide Anion Gap BUN POC Glucose Random Glucose Lactic Acid 2.4 H* Lactic Acid F/U @ 2Hr Lactic Acid F/U @ 4Hr AST 34 H Alkaline Phosphatase 143 H Total Protein 04/03/25 04/03/25 04/03/25 04:01 06:02 06:19 WBC 13.5 H Immature Gran % (Auto) 1.3 H Neut % (Auto) 91.6 H Lymph % (Auto) 5.3 L [place] % (Auto) 1.0 L Lymph # (Auto) 0.7 L Abs Immat Gran (auto) 0.17 H Absolute Neuts (auto) 12.4 H ABG pCO2 at Pt Temp ABG pO2 at Pt Temp ABG HCO3 VBG HCO3 Potassium 5.2 H Carbon Dioxide 14 L Anion Gap 23 H BUN 18 H POC Glucose 311 H Random Glucose 311 H Lactic Acid Lactic Acid F/U @ 2Hr 2.2 H* Lactic Acid F/U @ 4Hr 3.7 H* AST 48 H Alkaline Phosphatase 133 H Total Protein 8.3 H 04/03/25 04/03/25 04/03/25 07:11 07:57 08:16 WBC Immature Gran % (Auto) Neut % (Auto) Lymph % (Auto) [place] % (Auto) Lymph # (Auto) Abs Immat Gran (auto) Absolute Neuts (auto) ABG pCO2 at Pt Temp 25 L ABG pO2 at Pt Temp 77 L ABG HCO3 17 L VBG HCO3 Potassium Carbon Dioxide 16 L Anion Gap 22 H BUN 19 H POC Glucose 334 H Random Glucose 363 H* Lactic Acid Lactic Acid F/U @ 2Hr Lactic Acid F/U @ 4Hr AST Alkaline Phosphatase Total Protein 04/03/25 11:14 WBC Immature Gran % (Auto) Neut % (Auto) Lymph % (Auto) [place] % (Auto) Lymph # (Auto) Abs Immat Gran (auto) Absolute Neuts (auto) ABG pCO2 at Pt Temp ABG pO2 at Pt Temp ABG HCO3 VBG HCO3 Potassium Carbon Dioxide Anion Gap BUN POC Glucose 285 H Random Glucose Lactic Acid Lactic Acid F/U @ 2Hr Lactic Acid F/U @ 4Hr AST Alkaline Phosphatase Total Protein Assessment and Plan (1) Pleural effusion: Status: Acute (2) COPD (chronic obstructive pulmonary disease): Status: Acute Plan Impression: 65-year-old lady admitted after an episode of acute dyspnea likely related to an aspiration, now empirically covered for pneumonia. CT angio chest with no evidence of pulmonary emboli, but bilateral moderate pleural effusions, left with likely early loculation. Recommendation: Agree with empiric antibiotic coverage. Would suggest placement of left-sided chest tube with evaluation of underlying pleural fluid studies. If lung fails to re-expand, may require chemical decortication. Procedures Date of Service Date of Service: 04/03/25
[2025-04-03] MEDS: methylPREDNISolone Sod Succ 40 MG/ML VIAL IVPUSH ×2 (11:50→23:47)
--- NOTE | 2025-04-03 12:23 | MHC.SLORD ---
Speech Language Pathology Order Status: GI consult pending, ESTIMATING MANAGER to assess for dysphagia. Pt reports recent onset (+2 weeks) of difficulty swallowing, with increased SOB and 'wheezing', instances of feeling her throat closing. Question need for ENT assessment. Pt currently on regular diet with thin liquids, clinical bedside swallow indicated to assess for overt s/s of aspiration in conjunction with GI results.
[2025-04-03] MEDS: Cyanocobalamin (Vitamin B-12) 1,000 MCG TABLET 1000 MCG PO (13:11)
[2025-04-03] MEDS: amLODIPine Besylate 5 MG TABLET PO ×2 (13:11→20:26)
[2025-04-03] MEDS: Cholecalciferol (Vitamin D3) 25 MCG TABLET 50 MCG PO (13:11)
[2025-04-03] MEDS: Insulin Glargine,Hum.rec.anlog 100 UNIT/ML 10 ML VIAL 28 UNIT SUBCUT (13:11)
--- NOTE | 2025-04-03 14:25 | P.CNGI_ITS ---
History of Present Illness Data of Consult Service Date: 04/03/25 Primary Care Provider: Concepción Reyes MD 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 Pt denies fever or chills. Patient felt she may have had an panic attack at the time. Patient denied any chest pain, nausea or vomiting. Patient states she does not use home O2. Patient also reports problems swallowing feeling like food and pills often times get stuck in the esophagus. Incidentally patient is scheduled for colonoscopy in 1 week but there is no plan for an upper scope. In the emergency department patient was started on levofloxacin, methylprednisolone, and magnesium. Patient originally on Oxymizer 6 L, now currently on room air satting 91% with bilateral adventitious lung sounds. Respiratory rate 22. Heart rate 108, sinus tach. Patient afebrile. Leukocytosis of 12.9. LA 2.4 then 2.2, attributed to patient's nebulizer treatments with EMS and in ED. BNP 21, troponin 3.4. Chest x-ray with small bilateral pleural effusions and bibasilar atelectasis and/or consolidation. CTA completed negative for PE, noted moderate bilateral pleural effusions subsegmental ateleectasis versus infiltrate. NArrowing of LSC artery, possible subclavian steal syndrome. Left axillary lymphadenopathy 2.5 cm. Incidentally patient recently started on Trulicity, having issues with constipation and low blood sugars at home. 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 No evidence of ileus or bowel obstruction. Patient admitted with evidence of hypoxia and treatment for pneumonia. [facility] Past Medical History Medical History TIA (transient ischemic attack) (~12/2024) Recent bereavement Environmental and seasonal allergies HLD (hyperlipidemia) Multinodular goiter Peripheral neuropathy History of short term memory loss Port-A-Cath in place Smoker Family history of prostate cancer in father Leg swelling Shortness of breath Effusion of left knee Weakness Fall Thyroid nodule Adrenal adenoma Vision changes Diabetes History of palpitations History of unsteady gait Low back pain Arthritis Mild heartburn Hx of renal calculi Vaginal yeast infection Encounter to discuss test results 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 Brother No problems noted. Daughter No problems noted. Surgical History Surgical History Hx of colonoscopy H/O total mastectomy of left breast (12/21/22) History of biopsy History of endometrial ablation Hx of tubal ligation History of tonsillectomy History of appendectomy History of cholecystectomy History of bladder surgery History of left knee replacement Social History Social History Household Members: Children Household Members Other:: adult daughter Housing: [facility] Are you a primary director of career services to a significant other at home: No Do you presently have visiting nurse or other home services: No (daughter cares for her) Alcohol intake: current Alcohol intake frequency: holidays/special occasions only Comment: Fell 08/2022, leg weakness 1 glass on holidays Patient Tobacco Use Status: Former Tobacco user Tobacco use type: Cigarette Cigarette Packs Per Day: 1 Cigarettes Per Day: 20.0 Years Smoked: 40, 1 pack a day e-Cigarette/Vaping Use: Former Use Second Hand Smoke Exposure: No service: No Current occupational status: disabled Cognitive needs: No Hearing needs: No Vision needs: Yes Travel History Ebola Risk: Travel/Contact With Anyone From Affected Area/s: No Has Patient Experienced Ebola Symptoms: No Meds Allergies Allergy/AdvReac Type Severity Reaction Status Date / Time diclofenac [From Voltaren] Allergy Severe enlarged Verified 04/03/25 01:00 liver lisinopril [From Zestril] Allergy Severe Angioedema Verified 04/03/25 01:00 losartan Allergy Severe Angioedema Verified 04/03/25 01:00 omeprazole Allergy Intermediate elevated Verified 04/03/25 01:00 blood pressure Penicillins [PENICILLINS] Allergy Intermediate Facial Verified 04/03/25 01:00 Swelling oxybutynin [Oxybutynin] AdvReac Severe body Verified 04/03/25 01:00 twitching gabapentin AdvReac Intermediate Hypertensio Verified 04/03/25 01:00 n metformin AdvReac Intermediate Diarrhea Verified 04/03/25 01:00 duloxetine AdvReac Intermediate tachycardia Uncoded 04/03/25 01:00 Active Medications: Current Medications Acetaminophen (Acetaminophen 325 Mg Tablet) 650 mg PO Q6H PRN PRN Reason: Pain, Mild 1-3,fever,headache Amlodipine Besylate (Amlodipine Besylate 5 Mg Tablet) 5 mg PO BID [facility]; Protocol Last Admin: 04/03/25 13:11 Dose: 5 mg Aspirin (Aspirin Enteric Coated 81 Mg Tablet.Dr) 81 mg PO DAILY [place] Atorvastatin Calcium (Atorvastatin Calcium 80 Mg Tablet) 80 mg PO DAILY [facility] Bisacodyl (Bisacodyl 10 Mg Supp.Rect) 10 mg [place] BEDTIME PRN PRN Reason: Constipation Calcium Carbonate (Calcium Carbonate 750 Mg Tab.Chew) 750 mg PO Q4H PRN PRN Reason: Heartburn Ceftriaxone Sodium (Ceftriaxone Sodium 1 Gm Vial) 1 gm IVPUSH Q24H [facility] Last Admin: 04/03/25 05:34 Dose: 1 gm Clonidine HCl (Clonidine Hcl 0.1 Mg Tablet) 0.1 mg PO BEDTIME [facility]; Protocol Clotrimazole (Clotrimazole 1 % Cream 15 Gm Tube) 1 appl TOPICAL BID PRN; Protocol PRN Reason: Fungal Infections Cyanocobalamin (Cyanocobalamin (Vitamin B-12) 1,000 Mcg Tablet) 1,000 mcg PO DAILY [facility] Last Admin: 04/03/25 13:11 Dose: 1,000 mcg Dextrose (Dextrose 50 % 25 Gm/50 Ml Syringe) 25 gm IVPUSH Q15M PRN; Protocol PRN Reason: per Hypoglycemia Standing Ord. Enoxaparin Sodium (Enoxaparin Sodium 40 Mg/0.4 Ml Syringe) 40 mg SUBCUT Q24H [facility] Last Admin: 04/03/25 09:02 Dose: 40 mg Famotidine (Famotidine 20 Mg Tablet) 20 mg PO DAILY [facility] Last Admin: 04/03/25 09:02 Dose: 20 mg Ferrous Sulfate (Ferrous Sulfate 324 Mg Tablet.Dr) 324 mg PO FR@0900 [facility] Fluticasone Propionate (Fluticasone Propionate Nasal 16 Gm [place]) 1 spray NOSTRIL-B BEDTIME [facility] Glucose (Glucose Gel 15 Gm Gel..Gram.) 15 gm PO Q15M PRN; Protocol PRN Reason: per Hypoglycemia Standing Ord. Azithromycin 500 mg/ Sodium (Chloride) 250 mls @ 125 mls/hr IV Q24H [facility] Last Infusion: 04/03/25 08:09 Dose: Infused Insulin Glargine (Insulin Glargine,Hum.Rec.Anlog 100 Unit/Ml 10 Ml Vial) 28 unit SUBCUT DAILY [facility] Last Admin: 04/03/25 13:11 Dose: 28 unit Insulin Human Lispro (Insulin Lispro 100 Unit/Ml 3 Ml Vial) 0 unit SUBCUT QIDACHS [facility]; Protocol Last Admin: 04/03/25 11:49 Dose: 6 unit Letrozole (Letrozole 2.5 Mg Tablet) 2.5 mg PO DAILY [facility] Levalbuterol HCl (Levalbuterol Hcl 1.25 Mg/3 Ml Vial.Neb) 1.25 mg INHALE RTID [facility] Levalbuterol HCl (Levalbuterol Hcl 1.25 Mg/3 Ml Vial.Neb) 1.25 mg INHALE Q3H PRN PRN Reason: sob Lorazepam (Lorazepam 1 Mg Tablet) 1 mg PO DAILY PRN PRN Reason: Anxiety Last Admin: 04/03/25 09:02 Dose: 1 mg Magnesium Hydroxide (Milk Of Magnesia 30 Ml Oral.Susp) 30 ml PO DAILY PRN PRN Reason: Constipation Melatonin (Melatonin 3 Mg Tablet) 6 mg PO BEDTIME PRN PRN Reason: Insomnia Methylprednisolone Sodium Succinate (Methylprednisolone Sod Succ 40 Mg/Ml Vial) 40 mg IVPUSH Q12H [facility] Last Admin: 04/03/25 11:50 Dose: 40 mg Ondansetron HCl (Ondansetron Hcl 4 Mg/2 Ml Vial) 4 mg IVPUSH Q8H PRN PRN Reason: Nausea and Vomiting Ondansetron HCl (Ondansetron Odt 4 Mg Tab.Rapdis) 4 mg TRANSLINGU Q8H PRN PRN Reason: Nausea And Vomiting Oxycodone HCl (Oxycodone Hcl Immed Release 5 Mg Tablet) 5 mg PO Q8H PRN PRN Reason: Breakthrough Pain, Moderate Paroxetine HCl (Paroxetine Hcl 20 Mg Tablet) 20 mg PO DAILY [facility] Polyethylene Glycol (Polyethylene Glycol 3350 17 Gm Powd.Pack) 17 gm PO DAILY [facility] Last Admin: 04/03/25 09:02 Dose: 17 gm Ropinirole HCl (Ropinirole Hcl 1 Mg Tablet) 1 mg PO BID [facility] Senna (Sennosides 8.6 Mg Tablet) 17.2 mg PO BEDTIME [facility] Senna (Sennosides 8.6 Mg Tablet) 8.6 mg PO BID PRN PRN Reason: Constipation Sodium Chloride (0.9 % Sodium Chloride Flush 3 Ml Syringe) 3 ml IVFLUSH QSHIFT [facility] Last Admin: 04/03/25 07:35 Dose: Not Given Tolterodine Tartrate (Tolterodine Tartrate La 4 Mg Cap.Er.24h) 4 mg PO BEDTIME [facility] Triamcinolone Acetonide (Triamcinolone Acet 0.1 % Cream 15 Gm Tube) 1 appl TOPICAL DAILY PRN; Protocol PRN Reason: Itchy/Dry Skin Vitamin D (Cholecalciferol (Vitamin D3) 25 Mcg Tablet) 50 mcg PO Q48H [facility] Last Admin: 04/03/25 13:11 Dose: 50 mcg Zinc Sulfate (Zinc Sulfate 220 Mg Capsule) 220 mg PO DAILY [facility] Home Medications ?Medication ?Instructions ?Recorded ?Confirmed ?Last Taken ?Type acetaminophen 325 mg capsule 325 mg PO QID PRN Pain 09/01/22 04/03/25 Unknown History cyanocobalamin (vitamin B-12) 1,000 mcg PO DAILY 09/04/22 04/03/25 04/02/25 History 1,000 mcg tablet ferrous sulfate 325 mg (65 mg 325 mg PO FR@0900 08/09/24 04/03/25 03/29/25 History iron) tablet (Iron (ferrous sulfate)) zinc gluconate 50 mg tablet 50 mg PO DAILY 08/09/24 04/03/25 04/02/25 History albuterol sulfate 90 mcg/actuation 1 puff inhalation QID PRN 04/03/25 04/03/25 04/02/25 History aerosol inhaler Shortness Of Breath Or Wheezing atorvastatin 80 mg tablet 80 mg PO DAILY 04/03/25 04/03/25 04/02/25 History cholecalciferol (vitamin D3) 50 50 mcg PO Q48H 04/03/25 04/03/25 04/01/25 History mcg (2,000 unit) capsule clotrimazole 1 % topical cream 1 appl topical BID PRN Fungal 04/03/25 04/03/25 Unknown History Infections dulaglutide 0.75 mg/0.5 mL 0.75 mg subcut FR 04/03/25 04/03/25 03/29/25 History subcutaneous pen injector (Trulicity) fluticasone propionate 50 1 spray intranasal BEDTIME 04/03/25 04/03/25 04/02/25 History mcg/actuation nasal spray,suspension (Flonase Allergy Relief) insulin aspart U-100 100 unit/mL 10 - 20 unit subcut TIDAC 04/03/25 04/03/25 04/02/25 History (3 mL) subcutaneous pen (Novolog FlexPen U-100 Insulin aspart) ondansetron 4 mg disintegrating 4 mg PO Q8H PRN Nausea And Vomiting 04/03/25 04/03/25 Unknown History tablet sennosides 8.6 mg tablet (Senokot) 8.6 mg PO BID PRN Constipation 04/03/25 04/03/25 04/02/25 History solifenacin 5 mg tablet (Vesicare) 5 mg PO BEDTIME 04/03/25 04/03/25 04/02/25 History triamcinolone acetonide 0.1 % 1 appl topical DAILY PRN Itchy/Dry 04/03/25 04/03/25 Unknown History topical cream Skin Physical Exam 2 Vital Signs: Vital Signs: Last Vital Signs Temp 97.9 F 04/03/25 12:00 Pulse 107 H 04/03/25 12:00 Resp 17 04/03/25 12:00 BP 131/59 L 04/03/25 12:00 Pulse Ox 91 L 04/03/25 12:00 O2 Del Method Room Air 04/03/25 12:00 O2 Flow Rate 2 04/03/25 08:56 BMI result Body Mass Index 37.2 Results Labs 04/03/25 06:19 04/03/25 07:57 Labs: Short CBC 04/03/25 04/03/25 Range/Units 00:26 06:19 WBC 12.9 H 13.5 H (4.8-10.8) X10*3/uL Hgb 15.6 15.5 (12.0-16.0) g/dl Hct 46.9 46.0 (37.0-47.0) % Plt Count 339 D 273 (160-400) X10*3/uL BMP 04/03/25 04/03/25 04/03/25 00:26 06:19 07:57 Sodium 143 138 139 Potassium 5.0 D 5.2 H 4.2 Chloride 105 106 105 Carbon Dioxide 23 14 L 16 L BUN 15 18 H 19 H Creatinine 0.81 0.97 1.08 Calcium 10.2 D 9.4 D 9.6 Liver Function 04/03/25 04/03/25 Range/Units 00:26 06:19 Total Bilirubin 0.3 0.2 (0.0-1.0) mg/dL AST 34 H 48 H (5-31) U/L ALT 19 17 (0-31) U/L Alkaline Phosphatase 143 H 133 H (39-117) U/L Albumin 4.0 3.9 (3.5-5.0) g/dL Procedures Date of Service Date of Service: 04/03/25
[2025-04-03] MEDS: levalbuterol HCL 1.25 MG/3 ML VIAL.NEB INHALE ×2 (14:45→20:21)
--- NOTE | 2025-04-03 16:02 | PM.EVENT ---
Event Note Date of Service: 04/03/25 Event Note: This patient is seen and examined. Shortness of breaths somewhat improving, has some dry cough, no fever or chest pain Physical exam and assessment and plan coordinated in H&P note, Agree with the plan in addition: Acute hypoxic respiratory failure without evidence of sepsis(pneumonia, COPD) Will continue antibiotics, nebs, steroids, seen by Pulmonary-recommended for chest tube placement/pull fluid analysis. Orders added,Ir made aware. dyspahgia : added barium swallow study Time Spent With Patient Time: Total time managing care of this patient today ____ minutes.
[2025-04-03] MEDS: 0.9 % Sodium Chloride Flush 3 ML SYRINGE IVFLUSH ×2 (16:06→20:19)
--- NOTE | 2025-04-03 16:11 | MHC.CM.PN ---
IMM DELIVERED. PATIENT LIVES IN A CONDO W/ ADULT DTR. AMBULATES W/ ROLLATOR. USES A W/C WHEN IN COMMUNITY. DTR ASSISTS W/ ADL'S PRN. PATIENT REPORTS SHE IS APPROVED FOR HOME MAKING SERVICES AND CHORE SERVICES THROUGH [facility], AND HAS USED THEM IN THE PAST, BUT PUT THEM ON PAUSE AND INTENDS ON REINSTATING. SHE WILL REACH OUT TO HER [facility] LAUNDRY WASHER. MOW, 14 MEALS/WK. HCP ON FILE AND VERIFIED PCP ROSEY PATEL MD DP: HOME W/ DTR, ? NEED FOR VNA, REFERRAL TO [facility] (PT PREFERENCE) TO FOLLOW. WILL NEED SHUTTLE TRANSPORT. CM WILL CONTINUE TO FOLLOW.
[2025-04-03 16:59] LABS: Glucose, Whole Blood 251 mg/dL (60-115)
[2025-04-03] MEDS: Acetaminophen 325 MG TABLET 650 MG PO (18:40)
[2025-04-03] MEDS: oxyCODONE HCl Immed Release 5 MG TABLET PO (18:41)
[2025-04-03] MEDS: cloNIDine HCL 0.1 MG TABLET PO (20:18)
[2025-04-03] MEDS: Tolterodine Tartrate LA 4 MG CAP.ER.24H PO (20:19)
[2025-04-03] MEDS: rOPINIRole HCL 1 MG TABLET PO (20:19)
[2025-04-03] MEDS: Sennosides 8.6 MG TABLET 17.2 MG PO (20:19)
[2025-04-03] MEDS: Fluticasone Propionate Nasal 16 GM SPRAY 1 SPRAY NOSTRIL-B (20:19)
[2025-04-03 21:32] LABS: Glucose, Whole Blood 244 mg/dL (60-115)
[2025-04-04] VITALS (13 sets, daily range): BP systolic 116–136; BP diastolic 61–89; PULSE 57–110; RESP 15–28; TEMP 36.1–36.7; O2SAT 89–98
[2025-04-04] MEDS: levalbuterol HCL 1.25 MG/3 ML VIAL.NEB INHALE ×4 (05:00→19:22)
[2025-04-04] MEDS: cefTRIAXone sodium 1 GM VIAL IVPUSH (05:28)
[2025-04-04] MEDS: Azithromycin 500 MG in 0.9 % Sodium Chloride 250 ML 125 MG IV (06:06)
[2025-04-04] MEDS: oxyCODONE HCl Immed Release 5 MG TABLET PO ×2 (06:14→10:51)
[2025-04-04 07:38] LABS: Glucose, Whole Blood 268 mg/dL (60-115)
--- NOTE | 2025-04-04 08:11 | P.PNIM_ITS ---
Subjective Subjective Date of Service: 04/04/25 Interval History: Acute hypoxic respiratory failure Review of Systems sob somewhat improving no chest pain soarness in chest tube area Review of Systems: Yes all other systems are reviewed and are negative Physical Exam 2 Vital Signs: Vital Signs: Last Vital Signs Temp 97.5 F 04/04/25 07:27 Pulse 57 04/04/25 08:04 Resp 20 04/04/25 08:04 BP 136/63 04/04/25 07:27 Pulse Ox 94 04/04/25 07:27 O2 Del Method Nasal Cannula 04/04/25 07:27 O2 Flow Rate 2 04/04/25 07:27 BMI result Body Mass Index 37.2 Appearance: Alert.? Oriented X3.? . cvs: rrr, [id number] . res: air entry seems siminshed at bases has chest tube -draining pinkish fluid. abd: no rebound or guarding ,nt, bs present. ext pulses present , no cyanosis. neuro: axo3 , nonfocal. Objective Data Active Medications Acetaminophen (Acetaminophen 325 Mg Tablet) 650 mg PO Q6H PRN PRN Reason: Pain, Mild 1-3,fever,headache Last Admin: 04/03/25 18:40 Dose: 650 mg Documented By: RADHA Amlodipine Besylate (Amlodipine Besylate 5 Mg Tablet) 5 mg PO BID [facility]; Protocol Last Admin: 04/03/25 20:26 Dose: 5 mg Documented By: HOMA Aspirin (Aspirin Enteric Coated 81 Mg Tablet.Dr) 81 mg PO DAILY [facility] Atorvastatin Calcium (Atorvastatin Calcium 80 Mg Tablet) 80 mg PO DAILY [facility] Bisacodyl (Bisacodyl 10 Mg Supp.Rect) 10 mg [place] BEDTIME PRN PRN Reason: Constipation Calcium Carbonate (Calcium Carbonate 750 Mg Tab.Chew) 750 mg PO Q4H PRN PRN Reason: Heartburn Ceftriaxone Sodium (Ceftriaxone Sodium 1 Gm Vial) 1 gm IVPUSH Q24H [place] Last Admin: 04/04/25 05:28 Dose: 1 gm Documented By: HOMA Clonidine HCl (Clonidine Hcl 0.1 Mg Tablet) 0.1 mg PO BEDTIME [place]; Protocol Last Admin: 04/03/25 20:18 Dose: 0.1 mg Documented By: HOMA Clotrimazole (Clotrimazole 1 % Cream 15 Gm Tube) 1 appl TOPICAL BID PRN; Protocol PRN Reason: Fungal Infections Cyanocobalamin (Cyanocobalamin (Vitamin B-12) 1,000 Mcg Tablet) 1,000 mcg PO DAILY [facility] Last Admin: 04/03/25 13:11 Dose: 1,000 mcg Documented By: RADHA Dextrose (Dextrose 50 % 25 Gm/50 Ml Syringe) 25 gm IVPUSH Q15M PRN; Protocol PRN Reason: per Hypoglycemia Standing Ord. Famotidine (Famotidine 20 Mg Tablet) 20 mg PO DAILY [facility] Last Admin: 04/03/25 09:02 Dose: 20 mg Documented By: RADHA Ferrous Sulfate (Ferrous Sulfate 324 Mg Tablet.) 324 mg PO FR@0900 [facility] Fluticasone Propionate (Fluticasone Propionate Nasal 16 Gm [place]) 1 spray NOSTRIL-B BEDTIME [facility] Last Admin: 04/03/25 20:19 Dose: 1 spray Documented By: HOMA Glucose (Glucose Gel 15 Gm Gel..Gram.) 15 gm PO Q15M PRN; Protocol PRN Reason: per Hypoglycemia Standing Ord. Azithromycin 500 mg/ Sodium (Chloride) 250 mls @ 125 mls/hr IV Q24H [facility] Last Admin: 04/04/25 06:06 Dose: 125 mls/hr Documented By: HOMA Insulin Glargine (Insulin Glargine,Hum.Rec.Anlog 100 Unit/Ml 10 Ml Vial) 28 unit SUBCUT DAILY [facility] Last Admin: 04/03/25 13:11 Dose: 28 unit Documented By: RAHDA Insulin Glargine (Insulin Glargine,Hum.Rec.Anlog 100 Unit/Ml 10 Ml Vial) 14 unit SUBCUT ONCE ONE Stop: 04/04/25 08:10 Insulin Human Lispro (Insulin Lispro 100 Unit/Ml 3 Ml Vial) 0 unit SUBCUT QIDACHS [facility]; Protocol Last Admin: 04/04/25 08:04 Dose: Not Given Documented By: ALLIE Non-Admin Reason: NPODR.[place]H [place] Letrozole (Letrozole 2.5 Mg Tablet) 2.5 mg PO DAILY [facility] Levalbuterol HCl (Levalbuterol Hcl 1.25 Mg/3 Ml Vial.Neb) 1.25 mg INHALE RTID [facility] Last Admin: 04/04/25 08:01 Dose: 1.25 mg Documented By: RHYS Levalbuterol HCl (Levalbuterol Hcl 1.25 Mg/3 Ml Vial.Neb) 1.25 mg INHALE Q3H PRN PRN Reason: sob Last Admin: 04/04/25 05:00 Dose: 1.25 mg Documented By: AIMEE Lorazepam (Lorazepam 1 Mg Tablet) 1 mg PO DAILY PRN PRN Reason: Anxiety Last Admin: 04/03/25 09:02 Dose: 1 mg Documented By: RADHA Magnesium Hydroxide (Milk Of Magnesia 30 Ml Oral.Susp) 30 ml PO DAILY PRN PRN Reason: Constipation Melatonin (Melatonin 3 Mg Tablet) 6 mg PO BEDTIME PRN PRN Reason: Insomnia Methylprednisolone Sodium Succinate (Methylprednisolone Sod Succ 40 Mg/Ml Vial) 40 mg IVPUSH Q12H [facility] Last Admin: 04/03/25 23:47 Dose: 40 mg Documented By: HOMA Ondansetron HCl (Ondansetron Hcl 4 Mg/2 Ml Vial) 4 mg IVPUSH Q8H PRN PRN Reason: Nausea and Vomiting Ondansetron HCl (Ondansetron Odt 4 Mg Tab.Rapdis) 4 mg TRANSLINGU Q8H PRN PRN Reason: Nausea And Vomiting Oxycodone HCl (Oxycodone Hcl Immed Release 5 Mg Tablet) 5 mg PO Q8H PRN PRN Reason: Breakthrough Pain, Moderate Last Admin: 04/04/25 06:14 Dose: 5 mg Documented By: HOMA Paroxetine HCl (Paroxetine Hcl 20 Mg Tablet) 20 mg PO DAILY [facility] Polyethylene Glycol (Polyethylene Glycol 3350 17 Gm Powd.Pack) 17 gm PO DAILY [facility] Last Admin: 04/03/25 09:02 Dose: 17 gm Documented By: RADHA Ropinirole HCl (Ropinirole Hcl 1 Mg Tablet) 1 mg PO BID [facility] Last Admin: 04/03/25 20:19 Dose: 1 mg Documented By: HOMA Senna (Sennosides 8.6 Mg Tablet) 17.2 mg PO BEDTIME [facility] Last Admin: 04/03/25 20:19 Dose: 17.2 mg Documented By: HOMA Senna (Sennosides 8.6 Mg Tablet) 8.6 mg PO BID PRN PRN Reason: Constipation Sodium Chloride (0.9 % Sodium Chloride Flush 3 Ml Syringe) 3 ml IVFLUSH QSHIFT [facility] Last Admin: 04/04/25 07:28 Dose: Not Given Documented By: ALLIE Non-Admin Reason: IV Running Tolterodine Tartrate (Tolterodine Tartrate La 4 Mg Cap.Er.24h) 4 mg PO BEDTIME [facility] Last Admin: 04/03/25 20:19 Dose: 4 mg Documented By: HOMA Triamcinolone Acetonide (Triamcinolone Acet 0.1 % Cream 15 Gm Tube) 1 appl TOPICAL DAILY PRN; Protocol PRN Reason: Itchy/Dry Skin Vitamin D (Cholecalciferol (Vitamin D3) 25 Mcg Tablet) 50 mcg PO Q48H [facility] Last Admin: 04/03/25 13:11 Dose: 50 mcg Documented By: RADHA Zinc Sulfate (Zinc Sulfate 220 Mg Capsule) 220 mg PO DAILY [facility] Labs 04/03/25 06:19 04/04/25 10:57 Labs: Laboratory Results - last 24 hr 04/03/25 04/03/25 04/03/25 07:57 08:16 11:14 O2 Saturation 95.0 ABG pH at Pt Temp 7.43 ABG pCO2 at Pt Temp 25 L ABG pO2 at Pt Temp 77 L ABG HCO3 17 L ABG Base Excess (Actual) -4.8 Anion Gap 22 H Estim Creat Clear Calc 59.9 Estimated GFR 51 POC Glucose 285 H Random Glucose 363 H* Calcium 9.6 04/03/25 04/03/25 04/04/25 16:55 21:28 07:18 O2 Saturation ABG pH at Pt Temp ABG pCO2 at Pt Temp ABG pO2 at Pt Temp ABG HCO3 ABG Base Excess (Actual) Anion Gap Estim Creat Clear Calc Estimated GFR POC Glucose 251 H 244 H 268 H Random Glucose Calcium Microbiology Microbiology Results: Microbiology 04/03/25 01:16 Blood Culture - Preliminary Blood - Venous No growth after 24 hours. 04/03/25 01:08 Blood Culture - Preliminary Blood - Venous No growth after 24 hours. 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 Patient being admitted with the following medical problems: Acute hypoxic respiratory failure without evidence of sepsis oxygen nasal cannula, wean as tolerated,CTA negative for PE likely pneumonia bilaterally, maybe possibly from aspiration noting patient's report of dysphagia with cough plan: continue methylprednisolone 40 mg IV b.i.d., nebs,supportive care,incentive spirometry Pneumonia , b/l pleural effusion s/p chest tube fluid-wbc elevated lymphocytic moslty,ph,ldh protein/albumin-pending continue started on ceftriaxone and azithromycin,wean O2 as tolerated mild COPD execerbation: sob improving on nebs,steriods Dysphagia GI consulted-barium swallow in am. speech therapy eval ordered omeprazole . Insulin-dependent diabetes with hyperglycemia dm diet,fs withsliding scale insulin Constipation: prn luxatives. Nicotine dependence -patient counseled on the benefits of smoking cessation -patient defers need for nicotine patch at this time DVT prophylaxis: Lovenox. PPI prophylaxis: Omeprazole. ongoing need: Acute hypoxic respiratory failure without evidence of sepsis:need oxygen ,iv antibiotics ,chest tube placement ,pulm f/u ,gi workup Quality Stroke Does the patient have a stroke diagnosis?: No Reason for No Anti-thrombotic by Day Two: N/A - Med Ordered VTE Prior VTE?: No VTE Risk Level:: Medical - moderate - high VTE Device Contraindication: N/A - Device Ordered VTE Drug Contraindication: N/A - Med Ordered
[2025-04-04] MEDS: Insulin Glargine,Hum.rec.anlog 100 UNIT/ML 10 ML VIAL 14 UNIT SUBCUT (08:45)
[2025-04-04] MEDS: rOPINIRole HCL 1 MG TABLET PO ×2 (08:46→20:44)
[2025-04-04] MEDS: Famotidine 20 MG TABLET PO (08:46)
[2025-04-04] MEDS: Cyanocobalamin (Vitamin B-12) 1,000 MCG TABLET 1000 MCG PO (08:46)
[2025-04-04] MEDS: Atorvastatin Calcium 80 MG TABLET PO (08:46)
[2025-04-04] MEDS: PARoxetine HCL 20 MG TABLET PO (08:46)
[2025-04-04] MEDS: Zinc Sulfate 220 MG CAPSULE PO (08:46)
[2025-04-04] MEDS: amLODIPine Besylate 5 MG TABLET PO ×2 (08:47→20:44)
[2025-04-04] MEDS: LORazepam 1 MG TABLET PO (08:47)
[2025-04-04] MEDS: Letrozole 2.5 MG TABLET PO (08:47)
[2025-04-04 10:31] LABS: MN% 91.2 %; PMN% 8.8 %; WBC Pleural Fluid 3.902 X10*3/uL
[2025-04-04] MEDS: Sodium Bicarbonate 650 MG TABLET PO ×2 (10:52→20:45)
--- NOTE | 2025-04-04 11:14 | P.PNNP_ITS ---
Subjective Subjective Date of Service: 04/04/25 Interval history: Pt is a 65 y/o female with a medical history of DMII, COPD, anxiety, tobacco dependence, HTN, breast CA in remission, urinary incontinence, obesity, PVD. presented 04/03 with dyspnea and cough. Nephrology consulted for metabolic acidosis, hyperkalemia labored breathing at bedside. complains of shortness of breath, though states it is a bit better from yesterday. Had thoracentesis this a.m. states she is making urine, denies pain/difficulty with urination. No diarrhea, vomiting. denies other new symptoms. potassium 5.2, serum bicarb 14, AG 23 creatinine 0.97, GFR 58 lactic acid 3.7, glucose 363. Physical Exam 2 Vital Signs: Vital Signs: Last Vital Signs Temp 97.5 F 04/04/25 07:27 Pulse 110 H 04/04/25 09:40 Resp 28 H 04/04/25 09:40 BP 128/89 04/04/25 09:40 Pulse Ox 98 04/04/25 09:40 O2 Del Method Nasal Cannula 04/04/25 09:40 O2 Flow Rate 4 04/04/25 09:40 BMI result Body Mass Index 37.2 Const: General: no acute distress, alert and awake Resp: Effort & Inspection: labored Auscultation: diminished lung sounds Cardio: Rate: regular rate Rhythm: regular rhythm Heart sounds: S1 normal heart sound present and S2 normal heart sound present GI: Palpation (GI): Soft to palpation and nontender : General: Yes no CVA tenderness Back/Spine/Pelvis: Back: no CVA tenderness Skin: Rashes: no rashes Extrem: General: No edema and No pedal edema Objective Data Labs 04/03/25 06:19 04/04/25 10:57 Labs: Laboratory Results - last 24 hr 04/03/25 04/03/25 04/03/25 11:14 16:55 21:28 POC Glucose 285 H 251 H 244 H Pleural WBC Pleural RBC 04/04/25 04/04/25 07:18 09:30 POC Glucose 268 H Pleural WBC 3.902 Pleural RBC 0.060 Microbiology Microbiology Results: Microbiology 04/03/25 01:16 Blood - Venous Blood Culture - Preliminary No growth after 24 hours. 04/03/25 01:08 Blood - Venous Blood Culture - Preliminary No growth after 24 hours. Procedures Date of Service Date of Service: 04/04/25 Assessment & Plan Assessment and plan (1) Hyperkalemia: Status: Acute (2) Metabolic acidosis: Status: Acute (3) Respiratory alkalosis: Status: Acute Plan Mixed primary AG metabolic acidosis, and primary Respiratory alkalosis with metabolic compensation- improving recommend treating underlying cause of respiratory alkalosis (hypoxia from PNA); as well as metabolic acidosis from elevated lactate (pneumonia may be source; ketosis may have contributed on initial presentation though sugars have improved and beta hydroxybuterate normal today) hyperkalemia has resolved. Discussed with Dr Mejias Time Spent With Patient Time: Total time managing care of this patient today ____ minutes. Progress Note: Quality Stroke Does the patient have a stroke diagnosis?: No Reason for No Anti-thrombotic by Day Two: N/A - Med Ordered
[2025-04-04 11:22] LABS: Anion Gap 18 (12-20); Blood Urea Nitrogen 28 mg/dL (9-16); Calcium 9.6 mg/dL (8.4-10.2); Carbon Dioxide 20 mmol/L (22-29); Chloride 109 mmol/L (96-108); Creatinine Clr Calc Pharmacy 81.9; Estimated Glomerular Filt Rate > 60; Glucose Random 247 mg/dL (60-115); Potassium 4.2 mmol/L (3.3-5.1); Sodium 143 mmol/L (135-145)
[2025-04-04 11:27] LABS: Glucose, Whole Blood 243 mg/dL (60-115)
[2025-04-04 11:39] LABS: Beta-Hydroxybutyrate 0.14 mmol/L (0.02-0.27)
[2025-04-04 11:48] LABS: BF Shift QC OK YES; Lymphocytes Pleural Fluid 59 %; Monocytes Pleural Fluid 2 %; Neutrophils Pleural Fluid 5 %; Other Cells Plerual Fl 34 %
[2025-04-04] MEDS: methylPREDNISolone Sod Succ 40 MG/ML VIAL IVPUSH ×2 (12:48→23:55)
[2025-04-04 13:02] LABS: Glucose, Whole Blood 214 mg/dL (60-115)
[2025-04-04] MEDS: Insulin Lispro 100 UNIT/ML 3 ML VIAL SUBCUT ×3 (13:03→20:43)
[2025-04-04] MEDS: Lidocaine HCl 1 % MPF 30 ML VIAL SUBCUT (13:37)
[2025-04-04] MEDS: Acetaminophen 325 MG TABLET 975 MG PO ×2 (14:36→20:45)
[2025-04-04 16:12] LABS: Glucose, Whole Blood 280 mg/dL (60-115)
[2025-04-04 16:38] LABS: Estimated Average Glucose 160 mg/dL; Hemoglobin A1C 223.8905 umol/L; Hemoglobin A1c % 7.2 % (<6.0); Total Hemoglobin (HGBA1C) 4031.8834 umol/L
[2025-04-04] MEDS: 0.9 % Sodium Chloride Flush 3 ML SYRINGE IVFLUSH ×2 (16:41→20:45)
--- NOTE | 2025-04-04 17:28 | MHC.SL.SWA ---
Speech Pathologist Impression: Risk of Aspiration Due to: Dysphasia Diet Status: Liquid Consistency and Strategies for Safe Swallow: Liquid Intake Recommendation: Thin Liquid Intake Strategies: Solid Food Consistency: Dietary Recommendations: Chopped/Advanced (NDD3) Additional Modifications to Solid Foods: Oral Medication Intake: Whole with Puree Please contact the pharmacy regarding appropriate crushable or liquid drug formulations that are available whenever modified delivery is recommended. Compensatory Strategies and Precautions to be Taken for Safe Swallow: Supervision While Eating and Drinking for Safe Swallow: None Needed Foods to Avoid: Tough, difficult to chew solids Swallowing Recommended Treatments: Recommendation for Speech: Inpatient Speech Therapy Comment: Patient presents with a mild to moderate oral phase dysphagia, with c/o odynophagia from mouth sores persisting from Chemotherapy treatment. Patient is edentulous. Recommend DOWNGRADE diet to Chopped/Advanced, continue with thin liquids, pills whole with puree. Patient with history of GERD, recommend precaution of remaining upright after meals at least 30 minutes. [employer] will follow as inpatient, assess toleration of diet, with possible adjustments as needed. , RD notified of recommendations by secure text, RN in person. Frequency/Duration: Date Range for Service Req: Timeline to reassess: Manager Book Clinican/Clinical Fellow: No Supervisory Statement: I have reviewed and agree with the student/clinical fellow's documentation: N/A Speech Language Pathologist: Gladys Crain M.A., CCC-[employer]
[2025-04-04 20:37] LABS: Glucose, Whole Blood 311 mg/dL (60-115)
[2025-04-04] MEDS: cloNIDine HCL 0.1 MG TABLET PO (20:44)
[2025-04-04] MEDS: Sennosides 8.6 MG TABLET 17.2 MG PO (20:44)
[2025-04-04] MEDS: Tolterodine Tartrate LA 4 MG CAP.ER.24H PO (20:44)
[2025-04-04] MEDS: Fluticasone Propionate Nasal 16 GM SPRAY 1 SPRAY NOSTRIL-B (20:59)
--- NOTE | 2025-04-04 23:19 | PC.NURSE ---
Chest tube found on the floor. Pt denies pulling it out.Occulsive dsg applied. notified.02sat 96% on 2L.
[2025-04-05] VITALS (8 sets, daily range): BP systolic 119–141; BP diastolic 65–92; PULSE 92–103; RESP 18–24; TEMP 36–36.6; O2SAT 93–95
[2025-04-05] MEDS: oxyCODONE HCl Immed Release 5 MG TABLET PO (01:20)
[2025-04-05] MEDS: Acetaminophen 325 MG TABLET 975 MG PO ×4 (02:11→20:38)
[2025-04-05] MEDS: cefTRIAXone sodium 1 GM VIAL IVPUSH (05:12)
[2025-04-05] MEDS: Azithromycin 500 MG in 0.9 % Sodium Chloride 250 ML 125 MG IV (05:44)
[2025-04-05 07:31] LABS: Glucose, Whole Blood 245 mg/dL (60-115)
--- NOTE | 2025-04-05 07:43 | P.PNIM_ITS ---
Subjective Subjective Date of Service: 04/05/25 Interval History: paneumonia /effusions Review of Systems sob and cough improving no fevers Review of Systems: Yes all other systems are reviewed and are negative Physical Exam 2 Vital Signs: Vital Signs: Last Vital Signs Temp 97.9 F 04/05/25 03:29 Pulse 101 H 04/05/25 03:29 Resp 20 04/05/25 03:29 BP 140/73 H 04/05/25 03:29 Pulse Ox 94 04/05/25 03:29 O2 Del Method Nasal Cannula 04/05/25 03:29 O2 Flow Rate 2 04/05/25 03:29 BMI result Body Mass Index 37.2 Appearance: Alert.? Oriented X3.? . cvs: rrr, [id number] . res: air entry seems siminshed at bases ,chest tube came off last night. abd: no rebound or guarding ,nt, bs present. ext pulses present , no cyanosis. neuro: axo3 , nonfocal. Objective Data Active Medications Acetaminophen (Acetaminophen 325 Mg Tablet) 975 mg PO Q6H [facility] Last Admin: 04/05/25 02:11 Dose: 975 mg Documented By: HOMA Amlodipine Besylate (Amlodipine Besylate 5 Mg Tablet) 5 mg PO BID [facility]; Protocol Last Admin: 04/04/25 20:44 Dose: 5 mg Documented By: HOMA Aspirin (Aspirin Enteric Coated 81 Mg Tablet.) 81 mg PO DAILY [facility] Last Admin: 04/04/25 08:49 Dose: Not Given Documented By: ALLIE Non-Admin Reason: held Atorvastatin Calcium (Atorvastatin Calcium 80 Mg Tablet) 80 mg PO DAILY [facility] Last Admin: 04/04/25 08:46 Dose: 80 mg Documented By: ALLIE Bisacodyl (Bisacodyl 10 Mg Supp.Rect) 10 mg [place] BEDTIME PRN PRN Reason: Constipation Calcium Carbonate (Calcium Carbonate 750 Mg Tab.Chew) 750 mg PO Q4H PRN PRN Reason: Heartburn Ceftriaxone Sodium (Ceftriaxone Sodium 1 Gm Vial) 1 gm IVPUSH Q24H [facility] Last Admin: 04/05/25 05:12 Dose: 1 gm Documented By: HOMA Clonidine HCl (Clonidine Hcl 0.1 Mg Tablet) 0.1 mg PO BEDTIME [facility]; Protocol Last Admin: 04/04/25 20:44 Dose: 0.1 mg Documented By: HOMA Clotrimazole (Clotrimazole 1 % Cream 15 Gm Tube) 1 appl TOPICAL BID PRN; Protocol PRN Reason: Fungal Infections Cyanocobalamin (Cyanocobalamin (Vitamin B-12) 1,000 Mcg Tablet) 1,000 mcg PO DAILY [facility] Last Admin: 04/04/25 08:46 Dose: 1,000 mcg Documented By: ALLIE Dextrose (Dextrose 50 % 25 Gm/50 Ml Syringe) 25 gm IVPUSH Q15M PRN; Protocol PRN Reason: per Hypoglycemia Standing Ord. Famotidine (Famotidine 20 Mg Tablet) 20 mg PO DAILY [facility] Last Admin: 04/04/25 08:46 Dose: 20 mg Documented By: ALLIE Ferrous Sulfate (Ferrous Sulfate 324 Mg Tablet.Dr) 324 mg PO FR@0900 [facility] Fluticasone Propionate (Fluticasone Propionate Nasal 16 Gm [place]) 1 spray NOSTRIL-B BEDTIME [facility] Last Admin: 04/04/25 20:59 Dose: 1 spray Documented By: HOMA Glucose (Glucose Gel 15 Gm Gel..Gram.) 15 gm PO Q15M PRN; Protocol PRN Reason: per Hypoglycemia Standing Ord. Azithromycin 500 mg/ Sodium (Chloride) 250 mls @ 125 mls/hr IV Q24H [facility] Last Admin: 04/05/25 05:44 Dose: 125 mls/hr Documented By: HOMA Insulin Glargine (Insulin Glargine,Hum.Rec.Anlog 100 Unit/Ml 10 Ml Vial) 28 unit SUBCUT DAILY [facility] Last Admin: 04/04/25 08:50 Dose: Not Given Documented By: ALLIE Non-Admin Reason: 14 units given per Insulin Human Lispro (Insulin Lispro 100 Unit/Ml 3 Ml Vial) 0 unit SUBCUT QIDACHS [facility]; Protocol Last Admin: 04/04/25 20:43 Dose: 8 unit Documented By: HOMA Letrozole (Letrozole 2.5 Mg Tablet) 2.5 mg PO DAILY [facility] Last Admin: 04/04/25 08:47 Dose: 2.5 mg Documented By: ALLIE Levalbuterol HCl (Levalbuterol Hcl 1.25 Mg/3 Ml Vial.Neb) 1.25 mg INHALE RTID [facility] Last Admin: 04/04/25 19:22 Dose: 1.25 mg Documented By: RHYS Levalbuterol HCl (Levalbuterol Hcl 1.25 Mg/3 Ml Vial.Neb) 1.25 mg INHALE Q3H PRN PRN Reason: sob Last Admin: 04/04/25 05:00 Dose: 1.25 mg Documented By: AIMEE Lorazepam (Lorazepam 1 Mg Tablet) 1 mg PO DAILY PRN PRN Reason: Anxiety Last Admin: 04/04/25 08:47 Dose: 1 mg Documented By: ALLIE Magnesium Hydroxide (Milk Of Magnesia 30 Ml Oral.Susp) 30 ml PO DAILY PRN PRN Reason: Constipation Melatonin (Melatonin 3 Mg Tablet) 6 mg PO BEDTIME PRN PRN Reason: Insomnia Methylprednisolone Sodium Succinate (Methylprednisolone Sod Succ 40 Mg/Ml Vial) 40 mg IVPUSH Q12H [facility] Last Admin: 04/04/25 23:55 Dose: 40 mg Documented By: HOMA Ondansetron HCl (Ondansetron Hcl 4 Mg/2 Ml Vial) 4 mg IVPUSH Q8H PRN PRN Reason: Nausea and Vomiting Ondansetron HCl (Ondansetron Odt 4 Mg Tab.Rapdis) 4 mg TRANSLINGU Q8H PRN PRN Reason: Nausea And Vomiting Oxycodone HCl (Oxycodone Hcl Immed Release 5 Mg Tablet) 5 mg PO Q8H PRN PRN Reason: Breakthrough Pain, Moderate Last Admin: 04/05/25 01:20 Dose: 5 mg Documented By: HOMA Paroxetine HCl (Paroxetine Hcl 20 Mg Tablet) 20 mg PO DAILY [facility] Last Admin: 04/04/25 08:46 Dose: 20 mg Documented By: ALLIE Polyethylene Glycol (Polyethylene Glycol 3350 17 Gm Powd.Pack) 17 gm PO DAILY [facility] Last Admin: 04/04/25 08:50 Dose: Not Given Documented By: ALLIE Non-Admin Reason: NPO Ropinirole HCl (Ropinirole Hcl 1 Mg Tablet) 1 mg PO BID [facility] Last Admin: 04/04/25 20:44 Dose: 1 mg Documented By: HOMA Senna (Sennosides 8.6 Mg Tablet) 17.2 mg PO BEDTIME [facility] Last Admin: 04/04/25 20:44 Dose: 17.2 mg Documented By: HOMA Senna (Sennosides 8.6 Mg Tablet) 8.6 mg PO BID PRN PRN Reason: Constipation Sodium Bicarbonate (Sodium Bicarbonate 650 Mg Tablet) 650 mg PO BID [facility] Last Admin: 04/04/25 20:45 Dose: 650 mg Documented By: HOMA Sodium Chloride (0.9 % Sodium Chloride Flush 3 Ml Syringe) 3 ml IVFLUSH QSHIFT [facility] Last Admin: 04/05/25 07:10 Dose: Not Given Documented By: ALLIE Non-Admin Reason: IV Running Tolterodine Tartrate (Tolterodine Tartrate La 4 Mg Cap.Er.24h) 4 mg PO BEDTIME [facility] Last Admin: 04/04/25 20:44 Dose: 4 mg Documented By: HOMA Triamcinolone Acetonide (Triamcinolone Acet 0.1 % Cream 15 Gm Tube) 1 appl TOPICAL DAILY PRN; Protocol PRN Reason: Itchy/Dry Skin Vitamin D (Cholecalciferol (Vitamin D3) 25 Mcg Tablet) 50 mcg PO Q48H [facility] Last Admin: 04/03/25 13:11 Dose: 50 mcg Documented By: RADHA Zinc Sulfate (Zinc Sulfate 220 Mg Capsule) 220 mg PO DAILY [facility] Last Admin: 04/04/25 08:46 Dose: 220 mg Documented By: ALLIE Labs 04/03/25 06:19 04/05/25 09:10 Labs: Laboratory Results - last 24 hr 04/03/25 04/04/25 04/04/25 06:19 09:30 10:57 Anion Gap 18 Estim Creat Clear Calc 81.9 Estimated GFR > 60 POC Glucose Random Glucose 247 H Estimat Average Glucose 160 Hemoglobin A1c % 7.2 H Calcium 9.6 Beta-Hydroxybutyrate 0.14 Pleural WBC 3.902 Pleural RBC 0.060 Pleural Neutrophils 5 Pleural Lymphocytes 59 Pleural Monocytes 2 Pleural Other Cells 34 04/04/25 04/04/25 04/04/25 11:22 12:58 16:08 Anion Gap Estim Creat Clear Calc Estimated GFR POC Glucose 243 H 214 H 280 H Random Glucose Estimat Average Glucose Hemoglobin A1c % Calcium Beta-Hydroxybutyrate Pleural WBC Pleural RBC Pleural Neutrophils Pleural Lymphocytes Pleural Monocytes Pleural Other Cells 04/04/25 04/05/25 20:30 07:28 Anion Gap Estim Creat Clear Calc Estimated GFR POC Glucose 311 H 245 H Random Glucose Estimat Average Glucose Hemoglobin A1c % Calcium Beta-Hydroxybutyrate Pleural WBC Pleural RBC Pleural Neutrophils Pleural Lymphocytes Pleural Monocytes Pleural Other Cells Microbiology Microbiology Results: Microbiology 04/03/25 01:16 Blood Culture - Preliminary Blood - Venous No growth after 48 hours. 04/03/25 01:08 Blood Culture - Preliminary Blood - Venous No growth after 48 hours. 04/04/25 09:30 Gram Stain - Final Thoracentesis Fluid Assessment and Plan (1) Acute hypoxic respiratory failure: Status: Acute Plan 65-year-old female with past medical history insulin-dependent diabetes mellitus type 2, COPD, anxiety, tobacco dependence for 40 years, hypertension, HER2 positive breast cancer with left breast mastectomy, urinary incontinence/ frequency with stimulator, obesity, PVD came into the emergency department with complaints of sudden onset dyspnea and closure of throat with a possible panic attack. Patient being admitted with the following medical problems: Acute hypoxic respiratory failure without evidence of sepsis oxygen nasal cannula, wean as tolerated,CTA negative for PE likely pneumonia bilaterally, maybe possibly from aspiration noting patient's report of dysphagia with cough plan: continue methylprednisolone 40 mg IV b.i.d., nebs,supportive care,incentive spirometry Pneumonia , b/l pleural effusion s/p chest tube-came off last night fluid-wbc elevated lymphocytic moslty,ph,ldh protein/albumin-pending blood cultures neg 48 hrs ,pleural fluid culture prelim-negative.pathology pending cxr-pleural effusion left side seems to be improved. d/w pulm: less like exudative effusion. no need for placing chest tube again- effusion seems improved. on ceftriaxone and azithromycin, wean O2 as tolerated mild COPD execerbation: sob improving on nebs,steriods Dysphagia GI consulted-barium swallow done: No esophageal obstruction or narrowing seen.Tertiary peristalsis present in the distal esophagus. Transient holdup of barium tablet in the upper and lower esophagus which is subsequently clears with lots of water. GI follow up. omeprazole . Insulin-dependent diabetes with hyperglycemia dm diet,fs withsliding scale insulin Constipation: prn luxatives. Nicotine dependence -patient counseled on the benefits of smoking cessation -patient defers need for nicotine patch at this time DVT prophylaxis: Lovenox. PPI prophylaxis: Omeprazole. ongoing need: Acute hypoxic respiratory failure without evidence of sepsis:need oxygen ,iv antibiotics ,chest tube placement ,pulm f/u ,gi workup Quality Stroke Does the patient have a stroke diagnosis?: No Reason for No Anti-thrombotic by Day Two: N/A - Med Ordered VTE Prior VTE?: No VTE Risk Level:: Medical - moderate - high VTE Device Contraindication: N/A - Device Ordered VTE Drug Contraindication: N/A - Med Ordered
[2025-04-05] MEDS: Insulin Lispro 100 UNIT/ML 3 ML VIAL SUBCUT ×4 (09:44→21:11)
[2025-04-05] MEDS: Insulin Glargine,Hum.rec.anlog 100 UNIT/ML 10 ML VIAL 28 UNIT SUBCUT (09:44)
[2025-04-05] MEDS: Atorvastatin Calcium 80 MG TABLET PO (09:45)
[2025-04-05] MEDS: polyethylene glycoL 3350 17 GM POWD.PACK PO (09:45)
[2025-04-05] MEDS: PARoxetine HCL 20 MG TABLET PO (09:45)
[2025-04-05] MEDS: rOPINIRole HCL 1 MG TABLET PO ×2 (09:45→20:35)
[2025-04-05] MEDS: Letrozole 2.5 MG TABLET PO (09:45)
[2025-04-05] MEDS: Famotidine 20 MG TABLET PO (09:45)
[2025-04-05] MEDS: Sodium Bicarbonate 650 MG TABLET PO (09:45)
[2025-04-05] MEDS: Ferrous Sulfate 324 MG TABLET.DR PO (09:46)
[2025-04-05] MEDS: Zinc Sulfate 220 MG CAPSULE PO (09:46)
[2025-04-05] MEDS: amLODIPine Besylate 5 MG TABLET PO ×2 (09:46→20:35)
[2025-04-05] MEDS: Cyanocobalamin (Vitamin B-12) 1,000 MCG TABLET 1000 MCG PO (09:47)
[2025-04-05 10:03] LABS: Blood Urea Nitrogen 25 mg/dL (9-16); Calcium 9.7 mg/dL (8.4-10.2); Creatinine Clr Calc Pharmacy 88.7; Estimated Glomerular Filt Rate > 60; Glucose Random 240 mg/dL (60-115)
[2025-04-05 10:23] LABS: Anion Gap 18 (12-20); Carbon Dioxide 22 mmol/L (22-29); Chloride 107 mmol/L (96-108); Potassium 5.2 mmol/L (3.3-5.1); Sodium 142 mmol/L (135-145)
--- NOTE | 2025-04-05 11:04 | P.PNNP_ITS ---
Subjective Subjective Date of Service: 04/05/25 Interval history: Pt is a 65 y/o female with a medical history of DMII, COPD, anxiety, tobacco dependence, HTN, breast CA in remission, urinary incontinence, obesity, PVD. presented 04/03 with dyspnea and cough. Nephrology consulted for metabolic acidosis, hyperkalemia patient reports breathing is much better today. states she is making urine, denies pain/difficulty with urination. No diarrhea, vomiting. denies other new symptoms. serum bicarb 22 today Physical Exam 2 Vital Signs: Vital Signs: Last Vital Signs Temp 97.4 F 04/05/25 08:00 Pulse 100 04/05/25 08:00 Resp 20 04/05/25 08:00 BP 119/92 H 04/05/25 08:00 Pulse Ox 95 04/05/25 08:00 O2 Del Method Nasal Cannula 04/05/25 08:00 O2 Flow Rate 2 04/05/25 08:00 BMI result Body Mass Index 37.2 Const: General: no acute distress, alert and awake Resp: Effort & Inspection: normal respiratory effort and able to speak in complete sentences Auscultation: clear to auscultation bilaterally and diminished lung sounds Cardio: Rate: regular rate Rhythm: regular rhythm Heart sounds: S1 normal heart sound present and S2 normal heart sound present GI: Palpation (GI): Soft to palpation and nontender : General: Yes no CVA tenderness Back/Spine/Pelvis: Back: no CVA tenderness Skin: Rashes: no rashes Extrem: General: No edema and No pedal edema Objective Data Labs 04/03/25 06:19 04/05/25 09:10 Labs: Laboratory Results - last 24 hr 04/03/25 04/04/25 04/04/25 06:19 09:30 10:57 Sodium 143 Potassium 4.2 Chloride 109 H Carbon Dioxide 20 L Anion Gap 18 BUN 28 H Creatinine 0.79 Estim Creat Clear Calc 81.9 Estimated GFR > 60 POC Glucose Random Glucose 247 H Estimat Average Glucose 160 Hemoglobin A1c % 7.2 H Calcium 9.6 Beta-Hydroxybutyrate 0.14 Pleural Neutrophils 5 Pleural Lymphocytes 59 Pleural Monocytes 2 Pleural Other Cells 34 04/04/25 04/04/25 04/04/25 11:22 12:58 16:08 Sodium Potassium Chloride Carbon Dioxide Anion Gap BUN Creatinine Estim Creat Clear Calc Estimated GFR POC Glucose 243 H 214 H 280 H Random Glucose Estimat Average Glucose Hemoglobin A1c % Calcium Beta-Hydroxybutyrate Pleural Neutrophils Pleural Lymphocytes Pleural Monocytes Pleural Other Cells 04/04/25 04/05/25 04/05/25 20:30 07:28 09:10 Sodium 142 Potassium 5.2 H D Chloride 107 Carbon Dioxide 22 Anion Gap 18 BUN 25 H Creatinine 0.73 Estim Creat Clear Calc 88.7 Estimated GFR > 60 POC Glucose 311 H 245 H Random Glucose 240 H Estimat Average Glucose Hemoglobin A1c % Calcium 9.7 Beta-Hydroxybutyrate Pleural Neutrophils Pleural Lymphocytes Pleural Monocytes Pleural Other Cells Microbiology Microbiology Results: Microbiology 04/04/25 09:30 Thoracentesis Fluid Gram Stain - Final 04/04/25 09:30 Thoracentesis Fluid Anaerobic Culture - Preliminary Culture in progress. 04/04/25 09:30 Thoracentesis Fluid Body Fluid Culture - Preliminary Culture in progress. 04/03/25 01:16 Blood - Venous Blood Culture - Preliminary No growth after 48 hours. 04/03/25 01:08 Blood - Venous Blood Culture - Preliminary No growth after 48 hours. Procedures Date of Service Date of Service: 04/05/25 Assessment & Plan Assessment and plan (1) Hyperkalemia: Status: Acute (2) Metabolic acidosis: Status: Acute (3) Respiratory alkalosis: Status: Acute Plan Mixed primary AG metabolic acidosis, and primary Respiratory alkalosis with metabolic compensation- resolved recommend treating underlying cause of respiratory alkalosis (hypoxia from PNA); as well as metabolic acidosis from elevated lactate (pneumonia may be source; ketosis may have contributed on initial presentation though sugars have improved and beta hydroxybuterate normal today) signing off, will happily follow up as needed for changes or new concerns. Discussed with Dr Mejias Time Spent With Patient Time: Total time managing care of this patient today ____ minutes. Progress Note: Quality Stroke Does the patient have a stroke diagnosis?: No Reason for No Anti-thrombotic by Day Two: N/A - Med Ordered
--- NOTE | 2025-04-05 11:08 | MHC.CM.PN ---
PER MD ROUNDS, PT LIKELY TO REMAIN INPT AT LEAST TWO MORE DAYS DCP: HOME WITH FAMILY ASSISTANCE WILL NEED TRANSPORTATION ARRANGED
[2025-04-05 11:18] LABS: Glucose, Whole Blood 300 mg/dL (60-115)
[2025-04-05] MEDS: methylPREDNISolone Sod Succ 40 MG/ML VIAL IVPUSH (12:01)
--- NOTE | 2025-04-05 12:46 | MHC.SL.SWA ---
Speech Pathologist Impression: Risk of Aspiration, Oropharyngeal Dysphagia Risk of Aspiration Due to: Lack of dentition Dysphasia Diet Status: No Change Liquid Consistency and Strategies for Safe Swallow: Liquid Intake Recommendation: Thin Liquid Intake Strategies: Small Sips Solid Food Consistency: Dietary Recommendations: Chopped/Advanced (NDD3) Additional Modifications to Solid Foods: Patient presents with a mild to moderate oral phase dysphagia, with c/o odynophagia from mouth sores persisting from Chemotherapy treatment. Patient is edentulous. Recommend Chopped/Advanced diet and thin liquids, pills whole with puree. Patient with history of GERD, recommend precaution of remaining upright after meals at least 30 minutes. EDGE POLISHER to f/u 1-2x to monitor tolerance. Oral Medication Intake: Whole with Puree Please contact the pharmacy regarding appropriate crushable or liquid drug formulations that are available whenever modified delivery is recommended. Compensatory Strategies and Precautions to be Taken for Safe Swallow: Sitting Upright (90 deg) Double Swallow Small Bites and Sips Alternate Liquids/Solids Rate of Ingestion Change Supervision While Eating and Drinking for Safe Swallow: None Needed Foods to Avoid: Tough, difficult to chew solids Swallowing Recommended Treatments: Compens. Strategy Educat. Recommendation for Speech: Inpatient Speech Therapy Scaffolding Helper Clinican/Clinical Fellow: No Supervisory Statement: I have reviewed and agree with the student/clinical fellow's documentation: N/A Speech Language Pathologist: Marilyn Valente M.A., [facility]
[2025-04-05] MEDS: levalbuterol HCL 1.25 MG/3 ML VIAL.NEB INHALE ×2 (15:00→20:07)
[2025-04-05] MEDS: Cholecalciferol (Vitamin D3) 25 MCG TABLET 50 MCG PO (15:05)
[2025-04-05] MEDS: 0.9 % Sodium Chloride Flush 3 ML SYRINGE IVFLUSH (15:05)
[2025-04-05 16:09] LABS: Glucose, Whole Blood 262 mg/dL (60-115)
[2025-04-05] MEDS: cloNIDine HCL 0.1 MG TABLET PO (20:35)
[2025-04-05] MEDS: Tolterodine Tartrate LA 4 MG CAP.ER.24H PO (20:35)
[2025-04-05] MEDS: Sennosides 8.6 MG TABLET 17.2 MG PO (20:37)
[2025-04-05] MEDS: Fluticasone Propionate Nasal 16 GM SPRAY 1 SPRAY NOSTRIL-B (20:37)
[2025-04-05 20:42] LABS: Glucose, Whole Blood 349 mg/dL (60-115)
[2025-04-06] VITALS (9 sets, daily range): BP systolic 135–155; BP diastolic 65–79; PULSE 87–97; RESP 16–18; TEMP 36–36.4; O2SAT 93–96
[2025-04-06] MEDS: oxyCODONE HCl Immed Release 5 MG TABLET PO ×2 (00:10→09:27)
[2025-04-06] MEDS: methylPREDNISolone Sod Succ 40 MG/ML VIAL IVPUSH ×3 (00:11→23:14)
[2025-04-06] MEDS: 0.9 % Sodium Chloride Flush 3 ML SYRINGE IVFLUSH ×4 (00:11→23:16)
[2025-04-06] MEDS: Acetaminophen 325 MG TABLET 975 MG PO ×4 (02:41→20:43)
[2025-04-06] MEDS: cefTRIAXone sodium 1 GM VIAL IVPUSH (06:24)
[2025-04-06] MEDS: Azithromycin 500 MG in 0.9 % Sodium Chloride 250 ML 125 MG IV (06:29)
[2025-04-06 07:55] LABS: Glucose, Whole Blood 291 mg/dL (60-115)
[2025-04-06] MEDS: levalbuterol HCL 1.25 MG/3 ML VIAL.NEB INHALE ×3 (08:19→20:09)
[2025-04-06] MEDS: Insulin Lispro 100 UNIT/ML 3 ML VIAL SUBCUT ×4 (08:43→21:28)
[2025-04-06] MEDS: Zinc Sulfate 220 MG CAPSULE PO (09:27)
[2025-04-06] MEDS: PARoxetine HCL 20 MG TABLET PO (09:27)
[2025-04-06] MEDS: Letrozole 2.5 MG TABLET PO (09:27)
[2025-04-06] MEDS: Famotidine 20 MG TABLET PO (09:27)
[2025-04-06] MEDS: Atorvastatin Calcium 80 MG TABLET PO (09:27)
[2025-04-06] MEDS: amLODIPine Besylate 5 MG TABLET PO ×2 (09:28→20:43)
[2025-04-06] MEDS: rOPINIRole HCL 1 MG TABLET PO ×2 (09:28→20:42)
[2025-04-06] MEDS: Insulin Glargine,Hum.rec.anlog 100 UNIT/ML 10 ML VIAL 28 UNIT SUBCUT (09:28)
[2025-04-06] MEDS: Cyanocobalamin (Vitamin B-12) 1,000 MCG TABLET 1000 MCG PO (09:28)
[2025-04-06 11:22] LABS: Glucose, Whole Blood 357 mg/dL (60-115)
--- NOTE | 2025-04-06 14:28 | PM.PSYCN ---
History of Present Illness Date of Service: 04/06/25 Chief Complaint: dyspnea, bilateral pleural effusions Reason for Consult: Anxiety Sources of Information: patient interviewed and chart reviewed HPI Narrative: As per Admission H and P 04/03/25: 65-year-old female with past medical history insulin-dependent diabetes mellitus type 2, COPD, anxiety, tobacco dependence for 40 years, hypertension, HER2 positive breast cancer with left breast mastectomy, urinary incontinence/ frequency with stimulator, obesity, PVD was brought in by ambulance for an episode of severe sudden onset dyspnea secondary to drinking water with a significant cough productive with yellow sputum. Pt denies fever or chills. Patient felt she may have had an panic attack at the time. Patient denied any chest pain, nausea or vomiting. Patient states she does not use home O2. Patient also reports problems swallowing feeling like food and pills often times get stuck in the esophagus. Incidentally patient is scheduled for colonoscopy in 1 week but there is no plan for an upper scope. In the emergency department patient was started on levofloxacin, methylprednisolone, and magnesium. Patient originally on Oxymizer 6 L, now currently on room air satting 91% with bilateral adventitious lung sounds. Respiratory rate 22. Heart rate 108, sinus tach. Patient afebrile. Leukocytosis of 12.9. LA 2.4 then 2.2, attributed to patient's nebulizer treatments with EMS and in ED. BNP 21, troponin 3.4. Chest x-ray with small bilateral pleural effusions and bibasilar atelectasis and/or consolidation. CTA completed negative for PE, noted moderate bilateral pleural effusions subsegmental ateleectasis versus infiltrate. NArrowing of LSC artery, possible subclavian steal syndrome. Left axillary lymphadenopathy 2.5 cm. Incidentally patient recently started on Trulicity, having issues with constipation and low blood sugars at home. Patient has notified her spider assembler. No evidence of ileus or bowel obstruction. Patient admitted with evidence of hypoxia and treatment for pneumonia. Today: Pt endorses anxiety I get anxious when its hard to breath. When I can breath properly I dont get anxious . Is concerned around medical wellbeing. Being well cared for. Feels safe. No depression. No SI. Talked about husbands loss (40 year marriage on 05/31/2024). Sleep ok. NO substance issues. Med adherent with paxil via PCP- agreed to increase to 30mg while medical issues ongoing and associated anxiety Past Psychiatric History: No inpt history. PCP manages anxiety- paxil x 32 years, current dose 20mg. Personal & Social History: Supportive daughter. 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 High school grad. passed 05/31/2024 - 40 yrs marriage [facility] Medical History (Updated 04/06/25 @ 14:50 by Sandoval Jean MD) Generalized anxiety disorder TIA (transient ischemic attack) (~12/2024) Recent bereavement Environmental and seasonal allergies HLD (hyperlipidemia) Multinodular goiter Peripheral neuropathy History of short term memory loss Port-A-Cath in place Smoker Family history of prostate cancer in father Leg swelling Shortness of breath Effusion of left knee Weakness Fall Thyroid nodule Adrenal adenoma Vision changes Diabetes History of palpitations History of unsteady gait Low back pain Arthritis Mild heartburn Hx of renal calculi Vaginal yeast infection Encounter to discuss test results 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 Cervical cancer screening Type 2 diabetes mellitus with hyperglycemia History of anal fissures Peripheral vascular disease Urinary incontinence Hypertension COPD (chronic obstructive pulmonary disease) Hypercholesterolemia Surgical History Hx of colonoscopy H/O total mastectomy of left breast (12/21/22) History of biopsy History of endometrial ablation Hx of tubal ligation History of tonsillectomy History of appendectomy History of cholecystectomy History of bladder surgery History of left knee replacement Diagnostics Vital Signs (24Hr): Vital Signs - 24 hr 04/05/25 15:00 04/05/25 15:12 04/05/25 19:20 Temperature 97.6 F 97.0 F Pulse Rate 100 100 92 Respiratory Rate 20 18 18 Blood Pressure 141/75 H 135/71 Pulse Oximetry 94 93 Oxygen Delivery Method Nasal Cannula Nasal Cannula Oxygen Flow Rate 2 2 04/05/25 20:10 04/05/25 23:51 04/06/25 04:00 Temperature 96.8 F 96.8 F Pulse Rate 103 H 96 87 Respiratory Rate 24 H 18 16 Blood Pressure 122/65 155/78 H Pulse Oximetry 94 95 Oxygen Delivery Method Nasal Cannula Room Air Oxygen Flow Rate 2 04/06/25 07:20 04/06/25 08:23 04/06/25 12:00 Temperature 97.1 F 96.9 F Pulse Rate 93 95 90 Respiratory Rate 18 18 16 Blood Pressure 143/75 H 143/73 H Pulse Oximetry 96 96 Oxygen Delivery Method Nasal Cannula Nasal Cannula Oxygen Flow Rate 2 2 BMI result Body Mass Index 37.2 Labs 04/03/25 06:19 04/05/25 09:10 Labs: Laboratory Results - last 48 hr 04/03/25 04/04/25 04/04/25 06:19 16:08 20:30 Sodium Potassium Chloride Carbon Dioxide Anion Gap BUN Creatinine Estim Creat Clear Calc Estimated GFR POC Glucose 280 H 311 H Random Glucose Estimat Average Glucose 160 Hemoglobin A1c % 7.2 H Calcium 04/05/25 04/05/25 04/05/25 07:28 09:10 11:14 Sodium 142 Potassium 5.2 H D Chloride 107 Carbon Dioxide 22 Anion Gap 18 BUN 25 H Creatinine 0.73 Estim Creat Clear Calc 88.7 Estimated GFR > 60 POC Glucose 245 H 300 H Random Glucose 240 H Estimat Average Glucose Hemoglobin A1c % Calcium 9.7 04/05/25 04/05/25 04/06/25 16:03 20:38 07:51 Sodium Potassium Chloride Carbon Dioxide Anion Gap BUN Creatinine Estim Creat Clear Calc Estimated GFR POC Glucose 262 H 349 H 291 H Random Glucose Estimat Average Glucose Hemoglobin A1c % Calcium 04/06/25 11:19 Sodium Potassium Chloride Carbon Dioxide Anion Gap BUN Creatinine Estim Creat Clear Calc Estimated GFR POC Glucose 357 H* Random Glucose Estimat Average Glucose Hemoglobin A1c % Calcium Imaging Radiology Impressions: ITS Impressions Thoracentesis Ultrasound 04/04/25 09:00 IMPRESSION: Successful ultrasound-guided left pigtail chest tube drainage catheter placement without immediate complication. Fluid obtained was sent to lab for further testing as requested by referring physician. Recommend follow-up chest x-ray 04/05/2023 Electronically signed by: Valentin Hernandez MD 04/04/2025 12:53 PM EDT RP Chest X-Ray 04/04/25 09:49 IMPRESSION: 1. Left basilar chest tube placement without evidence of pneumothorax. Significantly decreased left effusion. 2. Stable small to moderate right effusion. 3. Similar bibasilar parenchymal consolidations, likely passive atelectasis from effusions. Electronically signed by: Inocencio Chambers MD 04/04/2025 10:16 AM EDT RP Barium Swallow X-Ray 04/05/25 07:00 IMPRESSION: No esophageal obstruction or narrowing seen. Tertiary peristalsis present in the distal esophagus. Transient holdup of barium tablet in the upper and lower esophagus which is subsequently clears with lots of water. Electronically signed by: Valentin Hernandez MD 04/05/2025 09:49 AM EDT RP Chest X-Ray 04/05/25 09:00 IMPRESSION: 1. Left basilar chest tube no longer visualized. Left effusion near completely resolved. Only trace fluid remaining. No pneumothorax. 2. Stable small to moderate right effusion. 3. Similar right basilar parenchymal consolidation, likely passive atelectasis from effusion. 4. Stable right chest port. Electronically signed by: Inocencio Chambers MD 04/05/2025 09:27 AM EDT RP Mental Status Exam Mental Status Exam Narrative: Alert. Oriented. Engaged. Pleasant. Hospital clothing. Fair self-care. No depression. Some anxiety. No SI or HI. No agitation or psychosis. Insight and judgment good Medications Medications Current Medications Acetaminophen (Acetaminophen 325 Mg Tablet) 975 mg PO Q6H [facility] Last Admin: 04/06/25 09:28 Dose: 975 mg Amlodipine Besylate (Amlodipine Besylate 5 Mg Tablet) 5 mg PO BID [facility]; Protocol Last Admin: 04/06/25 09:28 Dose: 5 mg Aspirin (Aspirin Enteric Coated 81 Mg Tablet.) 81 mg PO DAILY [facility] Last Admin: 04/04/25 08:49 Dose: Not Given Atorvastatin Calcium (Atorvastatin Calcium 80 Mg Tablet) 80 mg PO DAILY [facility] Last Admin: 04/06/25 09:27 Dose: 80 mg Bisacodyl (Bisacodyl 10 Mg Supp.Rect) 10 mg NM BEDTIME PRN PRN Reason: Constipation Calcium Carbonate (Calcium Carbonate 750 Mg Tab.Chew) 750 mg PO Q4H PRN PRN Reason: Heartburn Ceftriaxone Sodium (Ceftriaxone Sodium 1 Gm Vial) 1 gm IVPUSH Q24H [facility] Last Admin: 04/06/25 06:24 Dose: 1 gm Clonidine HCl (Clonidine Hcl 0.1 Mg Tablet) 0.1 mg PO BEDTIME [facility]; Protocol Last Admin: 04/05/25 20:35 Dose: 0.1 mg Clotrimazole (Clotrimazole 1 % Cream 15 Gm Tube) 1 appl TOPICAL BID PRN; Protocol PRN Reason: Fungal Infections Cyanocobalamin (Cyanocobalamin (Vitamin B-12) 1,000 Mcg Tablet) 1,000 mcg PO DAILY [facility] Last Admin: 04/06/25 09:28 Dose: 1,000 mcg Dextrose (Dextrose 50 % 25 Gm/50 Ml Syringe) 25 gm IVPUSH Q15M PRN; Protocol PRN Reason: per Hypoglycemia Standing Ord. Famotidine (Famotidine 20 Mg Tablet) 20 mg PO DAILY [facility] Last Admin: 04/06/25 09:27 Dose: 20 mg Ferrous Sulfate (Ferrous Sulfate 324 Mg Tablet.Dr) 324 mg PO FR@0900 [facility] Last Admin: 04/05/25 09:46 Dose: 324 mg Fluticasone Propionate (Fluticasone Propionate Nasal 16 Gm [place]) 1 spray NOSTRIL-B BEDTIME [facility] Last Admin: 04/05/25 20:37 Dose: 1 spray Glucose (Glucose Gel 15 Gm Gel..Gram.) 15 gm PO Q15M PRN; Protocol PRN Reason: per Hypoglycemia Standing Ord. Azithromycin 500 mg/ Sodium (Chloride) 250 mls @ 125 mls/hr IV Q24H [facility] Last Infusion: 04/06/25 09:32 Dose: Infused Insulin Glargine (Insulin Glargine,Hum.Rec.Anlog 100 Unit/Ml 10 Ml Vial) 28 unit SUBCUT DAILY [facility] Last Admin: 04/06/25 09:28 Dose: 28 unit Insulin Human Lispro (Insulin Lispro 100 Unit/Ml 3 Ml Vial) 0 unit SUBCUT QIDACHS [facility]; Protocol Last Admin: 04/06/25 12:24 Dose: 10 unit Letrozole (Letrozole 2.5 Mg Tablet) 2.5 mg PO DAILY [facility] Last Admin: 04/06/25 09:27 Dose: 2.5 mg Levalbuterol HCl (Levalbuterol Hcl 1.25 Mg/3 Ml Vial.Neb) 1.25 mg INHALE RTID [facility] Last Admin: 04/06/25 08:19 Dose: 1.25 mg Levalbuterol HCl (Levalbuterol Hcl 1.25 Mg/3 Ml Vial.Neb) 1.25 mg INHALE Q3H PRN PRN Reason: sob Last Admin: 04/04/25 05:00 Dose: 1.25 mg Lorazepam (Lorazepam 1 Mg Tablet) 1 mg PO DAILY PRN PRN Reason: Anxiety Last Admin: 04/04/25 08:47 Dose: 1 mg Magnesium Hydroxide (Milk Of Magnesia 30 Ml Oral.Susp) 30 ml PO DAILY PRN PRN Reason: Constipation Melatonin (Melatonin 3 Mg Tablet) 6 mg PO BEDTIME PRN PRN Reason: Insomnia Methylprednisolone Sodium Succinate (Methylprednisolone Sod Succ 40 Mg/Ml Vial) 40 mg IVPUSH Q12H [facility] Last Admin: 04/06/25 12:25 Dose: 40 mg Ondansetron HCl (Ondansetron Hcl 4 Mg/2 Ml Vial) 4 mg IVPUSH Q8H PRN PRN Reason: Nausea and Vomiting Ondansetron HCl (Ondansetron Odt 4 Mg Tab.Rapdis) 4 mg TRANSLINGU Q8H PRN PRN Reason: Nausea And Vomiting Oxycodone HCl (Oxycodone Hcl Immed Release 5 Mg Tablet) 5 mg PO Q8H PRN PRN Reason: Breakthrough Pain, Moderate Last Admin: 04/06/25 09:27 Dose: 5 mg Paroxetine HCl (Paroxetine Hcl 20 Mg Tablet) 20 mg PO DAILY [facility] Last Admin: 04/06/25 09:27 Dose: 20 mg Polyethylene Glycol (Polyethylene Glycol 3350 17 Gm Powd.Pack) 17 gm PO DAILY [facility] Last Admin: 04/06/25 09:29 Dose: Not Given Ropinirole HCl (Ropinirole Hcl 1 Mg Tablet) 1 mg PO BID [facility] Last Admin: 04/06/25 09:28 Dose: 1 mg Senna (Sennosides 8.6 Mg Tablet) 17.2 mg PO BEDTIME [facility] Last Admin: 04/05/25 20:37 Dose: 17.2 mg Senna (Sennosides 8.6 Mg Tablet) 8.6 mg PO BID PRN PRN Reason: Constipation Sodium Chloride (0.9 % Sodium Chloride Flush 3 Ml Syringe) 3 ml IVFLUSH QSHIFT [facility] Last Admin: 04/06/25 08:43 Dose: 3 ml Tolterodine Tartrate (Tolterodine Tartrate La 4 Mg Cap.Er.24h) 4 mg PO BEDTIME [facility] Last Admin: 04/05/25 20:35 Dose: 4 mg Triamcinolone Acetonide (Triamcinolone Acet 0.1 % Cream 15 Gm Tube) 1 appl TOPICAL DAILY PRN; Protocol PRN Reason: Itchy/Dry Skin Vitamin D (Cholecalciferol (Vitamin D3) 25 Mcg Tablet) 50 mcg PO Q48H [facility] Last Admin: 04/05/25 15:05 Dose: 50 mcg Zinc Sulfate (Zinc Sulfate 220 Mg Capsule) 220 mg PO DAILY [facility] Last Admin: 04/06/25 09:27 Dose: 220 mg Allergies Allergies Allergy/AdvReac Type Severity Reaction Status Date / Time diclofenac [From Voltaren] Allergy Severe enlarged Verified 04/03/25 01:00 liver lisinopril [From Zestril] Allergy Severe Angioedema Verified 04/03/25 01:00 losartan Allergy Severe Angioedema Verified 04/03/25 01:00 omeprazole Allergy Intermediate elevated Verified 04/03/25 01:00 blood pressure Penicillins [PENICILLINS] Allergy Intermediate Facial Verified 04/03/25 01:00 Swelling oxybutynin [Oxybutynin] AdvReac Severe body Verified 04/03/25 01:00 twitching gabapentin AdvReac Intermediate Hypertensio Verified 04/03/25 01:00 n metformin AdvReac Intermediate Diarrhea Verified 04/03/25 01:00 duloxetine AdvReac Intermediate tachycardia Uncoded 04/03/25 01:00 Assessment & Plan Assessment & Plan (1) Generalized anxiety disorder: Status: Acute Code(s): F41.1 - Generalized anxiety disorder Plan on Paxil through primary care provider. Anxiety has gotten slightly worse with recent medical issues and breathing difficulties. also passed in May of last year. Overall may benefit from increase of Paxil from 20 mg to 30 mg. No other medications or recommendations indicated. Signed off the case. Total time managing care of this patient today ____ minutes.
--- NOTE | 2025-04-06 15:27 | P.PNIM_ITS ---
Subjective Subjective Date of Service: 04/06/25 Interval History: pneumonia Review of Systems sob seems somewhat improving has mild cough Physical Exam 2 Vital Signs: Vital Signs: Last Vital Signs Temp 97 F 04/06/25 14:58 Pulse 93 04/06/25 15:04 Resp 18 04/06/25 15:04 BP 147/79 H 04/06/25 14:58 Pulse Ox 96 04/06/25 14:58 O2 Del Method Nasal Cannula 04/06/25 14:58 O2 Flow Rate 2 04/06/25 14:58 BMI result Body Mass Index 37.2 Appearance: Alert.? Oriented X3.? . cvs: rrr, [id number] . res: air entry seems siminshed at bases ,chest tube came off last night. abd: no rebound or guarding ,nt, bs present. ext pulses present , no cyanosis. neuro: axo3 , nonfocal. Objective Data Active Medications Acetaminophen (Acetaminophen 325 Mg Tablet) 975 mg PO Q6H [facility] Last Admin: 04/06/25 09:28 Dose: 975 mg Documented By: SAULO Amlodipine Besylate (Amlodipine Besylate 5 Mg Tablet) 5 mg PO BID [facility]; Protocol Last Admin: 04/06/25 09:28 Dose: 5 mg Documented By: SAULO Aspirin (Aspirin Enteric Coated 81 Mg Tablet.) 81 mg PO DAILY [facility] Last Admin: 04/04/25 08:49 Dose: Not Given Documented By: ALLIE Non-Admin Reason: held Atorvastatin Calcium (Atorvastatin Calcium 80 Mg Tablet) 80 mg PO DAILY [facility] Last Admin: 04/06/25 09:27 Dose: 80 mg Documented By: SAULO Bisacodyl (Bisacodyl 10 Mg Supp.Rect) 10 mg NE BEDTIME PRN PRN Reason: Constipation Calcium Carbonate (Calcium Carbonate 750 Mg Tab.Chew) 750 mg PO Q4H PRN PRN Reason: Heartburn Ceftriaxone Sodium (Ceftriaxone Sodium 1 Gm Vial) 1 gm IVPUSH Q24H [facility] Last Admin: 04/06/25 06:24 Dose: 1 gm Documented By: ED Clonidine HCl (Clonidine Hcl 0.1 Mg Tablet) 0.1 mg PO BEDTIME [facility]; Protocol Last Admin: 04/05/25 20:35 Dose: 0.1 mg Documented By: ED Clotrimazole (Clotrimazole 1 % Cream 15 Gm Tube) 1 appl TOPICAL BID PRN; Protocol PRN Reason: Fungal Infections Cyanocobalamin (Cyanocobalamin (Vitamin B-12) 1,000 Mcg Tablet) 1,000 mcg PO DAILY [facility] Last Admin: 04/06/25 09:28 Dose: 1,000 mcg Documented By: SALUO Dextrose (Dextrose 50 % 25 Gm/50 Ml Syringe) 25 gm IVPUSH Q15M PRN; Protocol PRN Reason: per Hypoglycemia Standing Ord. Famotidine (Famotidine 20 Mg Tablet) 20 mg PO DAILY [facility] Last Admin: 04/06/25 09:27 Dose: 20 mg Documented By: SAULO Ferrous Sulfate (Ferrous Sulfate 324 Mg Tablet.Dr) 324 mg PO FR@0900 [facility] Last Admin: 04/05/25 09:46 Dose: 324 mg Documented By: ALLIE Fluticasone Propionate (Fluticasone Propionate Nasal 16 Gm [place]) 1 spray NOSTRIL-B BEDTIME [facility] Last Admin: 04/05/25 20:37 Dose: 1 spray Documented By: ED Glucose (Glucose Gel 15 Gm Gel..Gram.) 15 gm PO Q15M PRN; Protocol PRN Reason: per Hypoglycemia Standing Ord. Azithromycin 500 mg/ Sodium (Chloride) 250 mls @ 125 mls/hr IV Q24H [facility] Last Infusion: 04/06/25 09:32 Dose: Infused Documented By: SAULO Insulin Glargine (Insulin Glargine,Hum.Rec.Anlog 100 Unit/Ml 10 Ml Vial) 28 unit SUBCUT DAILY [facility] Last Admin: 04/06/25 09:28 Dose: 28 unit Documented By: SAULO Insulin Human Lispro (Insulin Lispro 100 Unit/Ml 3 Ml Vial) 0 unit SUBCUT QIDACHS [facility]; Protocol Last Admin: 04/06/25 12:24 Dose: 10 unit Documented By: SAULO Letrozole (Letrozole 2.5 Mg Tablet) 2.5 mg PO DAILY [facility] Last Admin: 04/06/25 09:27 Dose: 2.5 mg Documented By: SAULO Levalbuterol HCl (Levalbuterol Hcl 1.25 Mg/3 Ml Vial.Neb) 1.25 mg INHALE RTID [facility] Last Admin: 04/06/25 14:58 Dose: 1.25 mg Documented By: RK Levalbuterol HCl (Levalbuterol Hcl 1.25 Mg/3 Ml Vial.Neb) 1.25 mg INHALE Q3H PRN PRN Reason: sob Last Admin: 04/04/25 05:00 Dose: 1.25 mg Documented By: AIMEE Lorazepam (Lorazepam 1 Mg Tablet) 1 mg PO DAILY PRN PRN Reason: Anxiety Last Admin: 04/04/25 08:47 Dose: 1 mg Documented By: ALLIE Magnesium Hydroxide (Milk Of Magnesia 30 Ml Oral.Susp) 30 ml PO DAILY PRN PRN Reason: Constipation Melatonin (Melatonin 3 Mg Tablet) 6 mg PO BEDTIME PRN PRN Reason: Insomnia Methylprednisolone Sodium Succinate (Methylprednisolone Sod Succ 40 Mg/Ml Vial) 40 mg IVPUSH Q12H [facility] Last Admin: 04/06/25 12:25 Dose: 40 mg Documented By: SAULO Ondansetron HCl (Ondansetron Hcl 4 Mg/2 Ml Vial) 4 mg IVPUSH Q8H PRN PRN Reason: Nausea and Vomiting Ondansetron HCl (Ondansetron Odt 4 Mg Tab.Rapdis) 4 mg TRANSLINGU Q8H PRN PRN Reason: Nausea And Vomiting Oxycodone HCl (Oxycodone Hcl Immed Release 5 Mg Tablet) 5 mg PO Q8H PRN PRN Reason: Breakthrough Pain, Moderate Last Admin: 04/06/25 09:27 Dose: 5 mg Documented By: SAULO Paroxetine HCl (Paroxetine Hcl 30 Mg Tablet) 30 mg PO DAILY [facility] Polyethylene Glycol (Polyethylene Glycol 3350 17 Gm Powd.Pack) 17 gm PO DAILY [facility] Last Admin: 04/06/25 09:29 Dose: Not Given Documented By: SAULO Non-Admin Reason: Patient Refused Ropinirole HCl (Ropinirole Hcl 1 Mg Tablet) 1 mg PO BID [facility] Last Admin: 04/06/25 09:28 Dose: 1 mg Documented By: SAULO Senna (Sennosides 8.6 Mg Tablet) 17.2 mg PO BEDTIME [facility] Last Admin: 04/05/25 20:37 Dose: 17.2 mg Documented By: ED Senna (Sennosides 8.6 Mg Tablet) 8.6 mg PO BID PRN PRN Reason: Constipation Sodium Chloride (0.9 % Sodium Chloride Flush 3 Ml Syringe) 3 ml IVFLUSH QSHIFT [facility] Last Admin: 04/06/25 08:43 Dose: 3 ml Documented By: SAULO Tolterodine Tartrate (Tolterodine Tartrate La 4 Mg Cap.Er.24h) 4 mg PO BEDTIME [facility] Last Admin: 04/05/25 20:35 Dose: 4 mg Documented By: ED Triamcinolone Acetonide (Triamcinolone Acet 0.1 % Cream 15 Gm Tube) 1 appl TOPICAL DAILY PRN; Protocol PRN Reason: Itchy/Dry Skin Vitamin D (Cholecalciferol (Vitamin D3) 25 Mcg Tablet) 50 mcg PO Q48H [facility] Last Admin: 04/05/25 15:05 Dose: 50 mcg Documented By: ALLIE Zinc Sulfate (Zinc Sulfate 220 Mg Capsule) 220 mg PO DAILY [facility] Last Admin: 04/06/25 09:27 Dose: 220 mg Documented By: SAULO Labs 04/03/25 06:19 04/05/25 09:10 Labs: Laboratory Results - last 24 hr 04/05/25 04/05/25 04/06/25 16:03 20:38 07:51 POC Glucose 262 H 349 H 291 H 04/06/25 11:19 POC Glucose 357 H* Microbiology Microbiology Results: Microbiology 04/04/25 09:30 Gram Stain - Final Thoracentesis Fluid Anaerobic Culture - Preliminary Culture in progress. Body Fluid Culture - Preliminary Culture in progress. 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 Patient being admitted with the following medical problems: Acute hypoxic respiratory failure without evidence of sepsis oxygen nasal cannula, wean as tolerated,CTA negative for PE likely pneumonia bilaterally, maybe possibly from aspiration noting patient's report of dysphagia with cough plan: continue methylprednisolone 40 mg IV b.i.d., nebs,supportive care,incentive spirometry Pneumonia , b/l pleural effusion s/p chest tube-came off last night fluid-wbc elevated lymphocytic moslty,ph,ldh protein/albumin-pending blood cultures neg 48 hrs ,pleural fluid culture prelim-negative.pathology pending cxr-pleural effusion left side seems to be improved. d/w pulm: less like exudative effusion. no need for placing chest tube again- effusion seems improved. on ceftriaxone and azithromycin, wean O2 as tolerated mild COPD execerbation: sob improving on nebs,steriods Dysphagia GI consulted-barium swallow done: No esophageal obstruction or narrowing seen.Tertiary peristalsis present in the distal esophagus. Transient holdup of barium tablet in the upper and lower esophagus which is subsequently clears with lots of water. GI follow up. omeprazole . Insulin-dependent diabetes with hyperglycemia dm diet,fs withsliding scale insulin Constipation: prn luxatives. Nicotine dependence -patient counseled on the benefits of smoking cessation -patient defers need for nicotine patch at this time DVT prophylaxis: Lovenox. PPI prophylaxis: Omeprazole. ongoing need: Acute hypoxic respiratory failure without evidence of sepsis:need oxygen ,iv antibiotics ,chest tube placement ,pulm f/u ,gi workup Quality Stroke Does the patient have a stroke diagnosis?: No Reason for No Anti-thrombotic by Day Two: N/A - Med Ordered VTE Prior VTE?: No VTE Risk Level:: Medical - moderate - high VTE Device Contraindication: N/A - Device Ordered VTE Drug Contraindication: N/A - Med Ordered
[2025-04-06 16:13] LABS: Glucose, Whole Blood 261 mg/dL (60-115)
[2025-04-06] MEDS: guaiFENesin 200 MG/10 ML 10 ML LIQUID PO (16:54)
[2025-04-06] MEDS: Tolterodine Tartrate LA 4 MG CAP.ER.24H PO (20:42)
[2025-04-06] MEDS: Fluticasone Propionate Nasal 16 GM SPRAY 1 SPRAY NOSTRIL-B (20:44)
[2025-04-06] MEDS: cloNIDine HCL 0.1 MG TABLET PO (20:46)
[2025-04-06] MEDS: Sennosides 8.6 MG TABLET 17.2 MG PO (20:46)
[2025-04-06 20:51] LABS: Glucose, Whole Blood 375 mg/dL (60-115)
[2025-04-07] VITALS (11 sets, daily range): BP systolic 139–161; BP diastolic 74–85; PULSE 74–100; RESP 16–20; TEMP 36.1–36.7; O2SAT 93–96
[2025-04-07] MEDS: Acetaminophen 325 MG TABLET 975 MG PO ×3 (02:18→14:56)
[2025-04-07] MEDS: cefTRIAXone sodium 1 GM VIAL IVPUSH (06:02)
[2025-04-07] MEDS: Azithromycin 500 MG in 0.9 % Sodium Chloride 250 ML 125 MG IV (06:08)
[2025-04-07 07:36] LABS: Glucose, Whole Blood 339 mg/dL (60-115)
[2025-04-07] MEDS: guaiFENesin 200 MG/10 ML 10 ML LIQUID PO (08:07)
[2025-04-07] MEDS: oxyCODONE HCl Immed Release 5 MG TABLET PO ×2 (08:07→16:20)
[2025-04-07] MEDS: Zinc Sulfate 220 MG CAPSULE PO (08:07)
[2025-04-07] MEDS: Atorvastatin Calcium 80 MG TABLET PO (08:07)
[2025-04-07] MEDS: amLODIPine Besylate 5 MG TABLET PO ×2 (08:08→19:29)
[2025-04-07] MEDS: Cyanocobalamin (Vitamin B-12) 1,000 MCG TABLET 1000 MCG PO (08:08)
[2025-04-07] MEDS: PARoxetine HCL 30 MG TABLET PO (08:08)
[2025-04-07] MEDS: Insulin Lispro 100 UNIT/ML 3 ML VIAL SUBCUT ×4 (08:09→20:30)
[2025-04-07] MEDS: Letrozole 2.5 MG TABLET PO (08:09)
[2025-04-07] MEDS: Insulin Glargine,Hum.rec.anlog 100 UNIT/ML 10 ML VIAL 28 UNIT SUBCUT (08:09)
[2025-04-07] MEDS: 0.9 % Sodium Chloride Flush 3 ML SYRINGE IVFLUSH ×3 (08:09→23:42)
[2025-04-07] MEDS: Famotidine 20 MG TABLET PO (08:09)
[2025-04-07] MEDS: levalbuterol HCL 1.25 MG/3 ML VIAL.NEB INHALE ×3 (08:09→19:42)
[2025-04-07] MEDS: polyethylene glycoL 3350 17 GM POWD.PACK PO (08:10)
[2025-04-07] MEDS: rOPINIRole HCL 1 MG TABLET PO ×2 (08:21→19:28)
--- NOTE | 2025-04-07 11:09 | P.PNIM_ITS ---
Subjective Subjective Date of Service: 04/07/25 Interval History: pneumonia Review of Systems sob improving but still sob with excersion denies any chest pain Review of Systems: Yes all other systems are reviewed and are negative Physical Exam 2 Vital Signs: Vital Signs: Last Vital Signs Temp 97.2 F 04/07/25 07:22 Pulse 74 04/07/25 08:10 Resp 18 04/07/25 08:10 BP 161/77 H 04/07/25 07:22 Pulse Ox 96 04/07/25 07:22 O2 Del Method Nasal Cannula 04/07/25 07:22 O2 Flow Rate 2 04/07/25 07:22 BMI result Body Mass Index 37.2 Appearance: Alert.? Oriented X3.? . cvs: rrr, [id number] . res: air entry seems siminshed at bases ,chest tube came off last night. abd: no rebound or guarding ,nt, bs present. ext pulses present , no cyanosis. neuro: axo3 , nonfocal. Objective Data Active Medications Acetaminophen (Acetaminophen 325 Mg Tablet) 975 mg PO Q6H [facility] Last Admin: 04/07/25 08:08 Dose: 975 mg Documented By: SAULO Amlodipine Besylate (Amlodipine Besylate 5 Mg Tablet) 5 mg PO BID [facility]; Protocol Last Admin: 04/07/25 08:08 Dose: 5 mg Documented By: SAULO Aspirin (Aspirin Enteric Coated 81 Mg Tablet.) 81 mg PO DAILY [facility] Last Admin: 04/04/25 08:49 Dose: Not Given Documented By: ALLIE Non-Admin Reason: held Atorvastatin Calcium (Atorvastatin Calcium 80 Mg Tablet) 80 mg PO DAILY [facility] Last Admin: 04/07/25 08:07 Dose: 80 mg Documented By: SAULO Bisacodyl (Bisacodyl 10 Mg Supp.Rect) 10 mg NM BEDTIME PRN PRN Reason: Constipation Calcium Carbonate (Calcium Carbonate 750 Mg Tab.Chew) 750 mg PO Q4H PRN PRN Reason: Heartburn Ceftriaxone Sodium (Ceftriaxone Sodium 1 Gm Vial) 1 gm IVPUSH Q24H [facility] Last Admin: 04/07/25 06:02 Dose: 1 gm Documented By: ED Clonidine HCl (Clonidine Hcl 0.1 Mg Tablet) 0.1 mg PO BEDTIME [facility]; Protocol Last Admin: 04/06/25 20:46 Dose: 0.1 mg Documented By: ED Clotrimazole (Clotrimazole 1 % Cream 15 Gm Tube) 1 appl TOPICAL BID PRN; Protocol PRN Reason: Fungal Infections Cyanocobalamin (Cyanocobalamin (Vitamin B-12) 1,000 Mcg Tablet) 1,000 mcg PO DAILY [facility] Last Admin: 04/07/25 08:08 Dose: 1,000 mcg Documented By: SAULO Dextrose (Dextrose 50 % 25 Gm/50 Ml Syringe) 25 gm IVPUSH Q15M PRN; Protocol PRN Reason: per Hypoglycemia Standing Ord. Famotidine (Famotidine 20 Mg Tablet) 20 mg PO DAILY [facility] Last Admin: 04/07/25 08:09 Dose: 20 mg Documented By: SAULO Ferrous Sulfate (Ferrous Sulfate 324 Mg Tablet.Dr) 324 mg PO FR@0900 [facility] Last Admin: 04/05/25 09:46 Dose: 324 mg Documented By: ALLIE Fluticasone Propionate (Fluticasone Propionate Nasal 16 Gm [place]) 1 spray NOSTRIL-B BEDTIME [facility] Last Admin: 04/06/25 20:44 Dose: 1 spray Documented By: ED Glucose (Glucose Gel 15 Gm Gel..Gram.) 15 gm PO Q15M PRN; Protocol PRN Reason: per Hypoglycemia Standing Ord. Guaifenesin (Guaifenesin 200 Mg/10 Ml 10 Ml Liquid) 10 ml PO Q4H PRN PRN Reason: Cough Last Admin: 04/07/25 08:07 Dose: 10 ml Documented By: SAULO Azithromycin 500 mg/ Sodium (Chloride) 250 mls @ 125 mls/hr IV Q24H [facility] Last Infusion: 04/07/25 11:03 Dose: Infused Documented By: SAULO Insulin Glargine (Insulin Glargine,Hum.Rec.Anlog 100 Unit/Ml 10 Ml Vial) 28 unit SUBCUT DAILY [facility] Last Admin: 04/07/25 08:09 Dose: 28 unit Documented By: SAULO Insulin Human Lispro (Insulin Lispro 100 Unit/Ml 3 Ml Vial) 0 unit SUBCUT QIDACHS [facility]; Protocol Last Admin: 04/07/25 08:09 Dose: 8 unit Documented By: SAULO Letrozole (Letrozole 2.5 Mg Tablet) 2.5 mg PO DAILY [facility] Last Admin: 04/07/25 08:09 Dose: 2.5 mg Documented By: SAULO Levalbuterol HCl (Levalbuterol Hcl 1.25 Mg/3 Ml Vial.Neb) 1.25 mg INHALE RTID [facility] Last Admin: 04/07/25 08:09 Dose: 1.25 mg Documented By: HARLAN Levalbuterol HCl (Levalbuterol Hcl 1.25 Mg/3 Ml Vial.Neb) 1.25 mg INHALE Q3H PRN PRN Reason: sob Last Admin: 04/04/25 05:00 Dose: 1.25 mg Documented By: AIMEE Lorazepam (Lorazepam 1 Mg Tablet) 1 mg PO DAILY PRN PRN Reason: Anxiety Last Admin: 04/04/25 08:47 Dose: 1 mg Documented By: ALLIE Magnesium Hydroxide (Milk Of Magnesia 30 Ml Oral.Susp) 30 ml PO DAILY PRN PRN Reason: Constipation Melatonin (Melatonin 3 Mg Tablet) 6 mg PO BEDTIME PRN PRN Reason: Insomnia Methylprednisolone Sodium Succinate (Methylprednisolone Sod Succ 40 Mg/Ml Vial) 40 mg IVPUSH Q12H [facility] Last Admin: 04/06/25 23:14 Dose: 40 mg Documented By: ED Ondansetron HCl (Ondansetron Hcl 4 Mg/2 Ml Vial) 4 mg IVPUSH Q8H PRN PRN Reason: Nausea and Vomiting Ondansetron HCl (Ondansetron Odt 4 Mg Tab.Rapdis) 4 mg TRANSLINGU Q8H PRN PRN Reason: Nausea And Vomiting Oxycodone HCl (Oxycodone Hcl Immed Release 5 Mg Tablet) 5 mg PO Q8H PRN PRN Reason: Breakthrough Pain, Moderate Last Admin: 04/07/25 08:07 Dose: 5 mg Documented By: SAULO Paroxetine HCl (Paroxetine Hcl 30 Mg Tablet) 30 mg PO DAILY [facility] Last Admin: 04/07/25 08:08 Dose: 30 mg Documented By: SAULO Polyethylene Glycol (Polyethylene Glycol 3350 17 Gm Powd.Pack) 17 gm PO DAILY [facility] Last Admin: 04/07/25 08:10 Dose: 17 gm Documented By: SAULO Ropinirole HCl (Ropinirole Hcl 1 Mg Tablet) 1 mg PO BID [facility] Last Admin: 04/07/25 08:21 Dose: 1 mg Documented By: SAULO Senna (Sennosides 8.6 Mg Tablet) 17.2 mg PO BEDTIME [facility] Last Admin: 04/06/25 20:46 Dose: 17.2 mg Documented By: ED Senna (Sennosides 8.6 Mg Tablet) 8.6 mg PO BID PRN PRN Reason: Constipation Sodium Chloride (0.9 % Sodium Chloride Flush 3 Ml Syringe) 3 ml IVFLUSH QSHIFT [facility] Last Admin: 04/07/25 08:09 Dose: 3 ml Documented By: SAULO Tolterodine Tartrate (Tolterodine Tartrate [place] 4 Mg Cap.Er.24h) 4 mg PO BEDTIME [facility] Last Admin: 04/06/25 20:42 Dose: 4 mg Documented By: ED Triamcinolone Acetonide (Triamcinolone Acet 0.1 % Cream 15 Gm Tube) 1 appl TOPICAL DAILY PRN; Protocol PRN Reason: Itchy/Dry Skin Vitamin D (Cholecalciferol (Vitamin D3) 25 Mcg Tablet) 50 mcg PO Q48H [facility] Last Admin: 04/05/25 15:05 Dose: 50 mcg Documented By: ALLIE Zinc Sulfate (Zinc Sulfate 220 Mg Capsule) 220 mg PO DAILY [facility] Last Admin: 04/07/25 08:07 Dose: 220 mg Documented By: SAULO Labs 04/03/25 06:19 04/05/25 09:10 Labs: Laboratory Results - last 24 hr 04/06/25 04/06/25 04/06/25 11:19 16:09 20:44 POC Glucose 357 H* 261 H 375 H* 04/07/25 07:32 POC Glucose 339 H Microbiology Microbiology Results: Microbiology 04/04/25 09:30 Gram Stain - Final Thoracentesis Fluid Anaerobic Culture - Preliminary Culture in progress. Body Fluid Culture - Final No growth after 2 days Assessment and Plan (1) Acute hypoxic respiratory failure: Status: Acute Plan 65-year-old female with past medical history insulin-dependent diabetes mellitus type 2, COPD, anxiety, tobacco dependence for 40 years, hypertension, HER2 positive breast cancer with left breast mastectomy, urinary incontinence/ frequency with stimulator, obesity, PVD came into the emergency department with complaints of sudden onset dyspnea and closure of throat with a possible panic attack. Patient being admitted with the following medical problems: Acute hypoxic respiratory failure and pneumonia without evidence of sepsis oxygen nasal cannula, wean as tolerated,CTA negative for PE likely pneumonia bilaterally, maybe possibly from aspiration noting patient's report of dysphagia with cough plan: continue iv antibiotics ,nebs,supportive care,incentive spirometry Pneumonia , b/l pleural effusion s/p chest tube-came off last night fluid-wbc elevated lymphocytic moslty,ph,ldh protein/albumin-pending blood cultures neg 48 hrs ,pleural fluid culture prelim-negative.pathology pending cxr-pleural effusion left side seems to be improved. d/w pulm: less like exudative effusion. no need for placing chest tube again- effusion seems improved. on ceftriaxone and azithromycin, wean O2 as tolerated mild COPD execerbation: sob improving on nebs,steriods Dysphagia GI consulted-barium swallow done: No esophageal obstruction or narrowing seen.Tertiary peristalsis present in the distal esophagus. Transient holdup of barium tablet in the upper and lower esophagus which is subsequently clears with lots of water. GI follow up. patient currently wants to continue famotidine. Insulin-dependent diabetes with hyperglycemia dm diet,fs with sliding scale insulin Constipation: prn luxatives. Nicotine dependence:patient counseled on the benefits of smoking cessation patient defers need for nicotine patch at this time DVT prophylaxis: Lovenox. PPI prophylaxis: Omeprazole. ongoing need: Acute hypoxic respiratory failure without evidence of sepsis:need oxygen ,iv antibiotics ,chest tube placement ,pulm f/u ,gi workup Quality Stroke Does the patient have a stroke diagnosis?: No Reason for No Anti-thrombotic by Day Two: N/A - Med Ordered VTE Prior VTE?: No VTE Risk Level:: Medical - moderate - high VTE Device Contraindication: N/A - Device Ordered VTE Drug Contraindication: N/A - Med Ordered
[2025-04-07 11:15] LABS: Glucose, Whole Blood 338 mg/dL (60-115)
[2025-04-07] MEDS: Cholecalciferol (Vitamin D3) 25 MCG TABLET 50 MCG PO (14:56)
[2025-04-07 16:26] LABS: Glucose, Whole Blood 273 mg/dL (60-115)
[2025-04-07] MEDS: Fluticasone Propionate Nasal 16 GM SPRAY 1 SPRAY NOSTRIL-B (19:26)
[2025-04-07] MEDS: Sennosides 8.6 MG TABLET 17.2 MG PO (19:28)
[2025-04-07] MEDS: cloNIDine HCL 0.1 MG TABLET PO (19:28)
[2025-04-07] MEDS: Tolterodine Tartrate LA 4 MG CAP.ER.24H PO (19:29)
[2025-04-07 20:21] LABS: Glucose, Whole Blood 305 mg/dL (60-115)
[2025-04-08] VITALS (10 sets, daily range): BP systolic 145–174; BP diastolic 73–90; PULSE 91–103; RESP 16–20; TEMP 36–36.6; O2SAT 90–96
[2025-04-08] MEDS: Acetaminophen 325 MG TABLET 975 MG PO ×4 (02:31→20:08)
[2025-04-08] MEDS: cefTRIAXone sodium 1 GM VIAL IVPUSH (05:57)
[2025-04-08] MEDS: Azithromycin 500 MG in 0.9 % Sodium Chloride 250 ML 125 MG IV (05:57)
--- NOTE | 2025-04-08 07:00 | CA_ITS ---
Transthoracic Echocardiogram Patient (Last, First, Middle): Sarah Ervin A Gender: Female Date of : 1960 Age: 65 Procedure Date: 04/08/2025 Procedure Type: Transthoracic Echocardiogram Location: S3E Height: 162.56 cm Weight: 98.43 kg BSA: 2.03 m2 Heart Rate: bpm BP: 165 / 81 mmHg Sign Erector: Referring MD: Trino Davison MD Symptoms: pleural effusion b/l unclear etiology Study Quality: Good ECG Rhythm: Sinus Conclusions: - Normal left ventricular cavity size. There is moderately increased left ventricular wall thickness. The left ventricular systolic function is hyperdynamic. The visually estimated ejection fraction is >70%. - E/E prime ratio is between 8 and 15 consistent with indeterminate filling pressures. - Normal right ventricular cavity size and systolic function. Findings Left Ventricle Normal left ventricular cavity size. There is moderately increased left ventricular wall thickness. The left ventricular systolic function is hyperdynamic. The visually estimated ejection fraction is >70%. There is no evidence of regional wall motion abnormalities. Abnormal diastolic function is noted. Spectral Doppler is indicative of an impaired relaxation filling pattern. E/E prime ratio is between 8 and 15 consistent with indeterminate filling pressures. Right Ventricle Normal right ventricular cavity size and systolic function. Atria The left atrium is normal in size. The right atrium was not well visualized. Aortic Valve The aortic valve was not well visualized. There is no aortic valve stenosis. There is no aortic valve regurgitation. Mitral Valve The mitral valve appears normal. There is no mitral valve regurgitation. There is no mitral valve stenosis. Pulmonic Valve The pulmonic valve is likely normal. Tricuspid Valve Normal tricuspid valve structure. There is no tricuspid valve regurgitation. Normal right atrial pressure. There is no evidence of pulmonary hypertension. Great Vessels The visualized portions of the pulmonary artery and branches are normal. Ascending aorta is at upper limit of normal 3.5 cm. Venous The inferior vena cava is collapsed, consistent with reduced intravascular volume. Pericardium/Pleural There is no evidence of pericardial effusion. Prior Study Comparison Changes noted compared to prior study dated: 06/20/2024. Hyperdynamic left ventricular function. Indeterminate filling pressures. Measurements 2D Linear Measurements IVSd: 1.28 0.6-0.9/0.6-1.0 cm LVIDd: 4.31 3.9-5.3/4.2-5.9 cm LVIDd Index: 2.12 2.4-3.2/2.2-3.1 cm/m2 LVIDs: 2.80 2.0-3.6 cm LVPWd: 1.25 0.7-1.1 cm Ao Root: 2.90 2.1-3.5 cm LA Diam: 3.10 2.7-3.8/3.0-4.0 cm LAIDs Index: 1.53 1.5-2.3 cm/m2 LV Mass: 249.55 67-162/88-224 g LV Mass Index: 122.93 43-95/49-115 g/m2 LVOT Diam: 2.20 3.0+(-)1.3 cm Mitral Valve MV Pk E: 0.63 MV PK A: 1.07 MV Decel Time: 148.00 E/A: 0.60 E'Lateral: 6.20 E'Medial: 5.33 E/E' Med: 11.70 E/E' Lat: 10.10 PHT: 43.00 MVA PHT: 5.12 Decel Boundary: 4.22 Aortic Valve AoV Pk John: 1.43 AoV Mn John: 0.92 AoV VTI: 0.25 AoV Pk Grad: 8.00 Aov Mn Grad: 5.00 SANTOS Cont.VTI: 3.40 LVOT LVOT Pk John: 1.04 LVOT Mn John: 0.68 LVOT VTI: 0.22 LVOT Pk Grad: 4.00 LVOT Mn Grad: 2.00 LVOT Diam: 2.20 LVOT Area: 3.80 Diastolic Function MV Pk E: 0.63 MV Pk A: 1.07 E/A: 0.60 E'Medial: 5.33 E/E' Med: 11.70 E' Laterial: 6.20 E/E' Lat: 10.10 Right Ventricle TAPSE (mm): 29.00 TVS' John: 15.00 Tricuspid Valve TR Pk John: 1.98 TR Pk Grad: 16.00 RA Press: 3.00 RVSP: 19.00 Great Vessels Aorta Ao Root-2D: 2.90 2.0-3.7 cm Ao Asc: 3.50 2.1-3.4 cm Pulmonary Valve PV Pk John: 1.04 Peak PV Grad: 4.00 Updated in Other Vendor System with Status of Final Vik Evangelista MD electronically signed on 04/09/2025 2:36:51 PM with status of Final
[2025-04-08 07:09] LABS: Glucose, Whole Blood 220 mg/dL (60-115)
[2025-04-08] MEDS: Insulin Lispro 100 UNIT/ML 3 ML VIAL SUBCUT ×4 (07:38→21:29)
[2025-04-08] MEDS: polyethylene glycoL 3350 17 GM POWD.PACK PO (07:41)
[2025-04-08] MEDS: Famotidine 20 MG TABLET PO (07:41)
[2025-04-08] MEDS: predniSONE 20 MG TABLET 40 MG PO (07:42)
[2025-04-08] MEDS: PARoxetine HCL 30 MG TABLET PO (07:42)
[2025-04-08] MEDS: Atorvastatin Calcium 80 MG TABLET PO (07:42)
[2025-04-08] MEDS: Cyanocobalamin (Vitamin B-12) 1,000 MCG TABLET 1000 MCG PO (07:42)
[2025-04-08] MEDS: rOPINIRole HCL 1 MG TABLET PO ×2 (07:42→20:08)
[2025-04-08] MEDS: amLODIPine Besylate 5 MG TABLET PO ×2 (07:42→20:09)
[2025-04-08] MEDS: Zinc Sulfate 220 MG CAPSULE PO (07:43)
[2025-04-08] MEDS: Letrozole 2.5 MG TABLET PO (07:44)
[2025-04-08] MEDS: Insulin Glargine,Hum.rec.anlog 100 UNIT/ML 10 ML VIAL 28 UNIT SUBCUT (07:54)
[2025-04-08] MEDS: levalbuterol HCL 1.25 MG/3 ML VIAL.NEB INHALE ×3 (08:05→20:59)
[2025-04-08 08:13] LABS: pH Pleural Fluid 7.35
[2025-04-08 08:14] LABS: Glucose Pleural Fluid 243; LDH Pleural Fluid 279
[2025-04-08] MEDS: diphenhydrAMINE HCL 25 MG CAPSULE PO (08:21)
[2025-04-08 08:47] LABS: Albumin Pleural Fluid 3.2
[2025-04-08 11:19] LABS: Glucose, Whole Blood 235 mg/dL (60-115)
[2025-04-08] MEDS: oxyCODONE HCl Immed Release 5 MG TABLET PO (12:27)
--- NOTE | 2025-04-08 13:10 | MHC.CM.PN ---
EMR REVIEWED AND PER MD ROUNDS, PT IS NOT MEDICALLY CLEARED FOR DC (AWAITING ECHO RESULTS) CM WILL CONTINUE TO FOLLOW FOR ANY CHANGE TO DC PLAN/NEEDS
--- NOTE | 2025-04-08 13:44 | HO.PM.IMPN ---
Subjective Subjective Date of Service: 04/08/25 Interval History: pneumonia Review of Systems sob improving but still sob with excersion ? itching with azithromycin feels anxious. Review of Systems: Yes all other systems are reviewed and are negative Physical Exam Vital Signs: Vital Signs: Last Vital Signs Temp 96.8 F 04/08/25 11:09 Pulse 98 04/08/25 13:13 Resp 18 04/08/25 13:13 BP 169/80 H 04/08/25 11:09 Pulse Ox 95 04/08/25 11:09 O2 Del Method Room Air 04/08/25 11:09 O2 Flow Rate 2 04/07/25 07:22 BMI result Body Mass Index 37.2 Appearance: Alert.? Oriented X3.? cvs: rrr, [id number] . res: air entry seems somewhat improving left >right . abd: no rebound or guarding ,nt, bs present. ext pulses present , no cyanosis. neuro: axo3 , nonfocal. Objective Data Active Medications Acetaminophen (Acetaminophen 325 Mg Tablet) 975 mg PO Q6H [facility] Last Admin: 04/08/25 07:43 Dose: 975 mg Documented By: STEVE Amlodipine Besylate (Amlodipine Besylate 5 Mg Tablet) 5 mg PO BID [facility]; Protocol Last Admin: 04/08/25 07:42 Dose: 5 mg Documented By: STEVE Aspirin (Aspirin Enteric Coated 81 Mg Tablet.) 81 mg PO DAILY [facility] Last Admin: 04/04/25 08:49 Dose: Not Given Documented By: ALLIE Non-Admin Reason: held Atorvastatin Calcium (Atorvastatin Calcium 80 Mg Tablet) 80 mg PO DAILY [facility] Last Admin: 04/08/25 07:42 Dose: 80 mg Documented By: STEVE Bisacodyl (Bisacodyl 10 Mg Supp.Rect) 10 mg [place] BEDTIME PRN PRN Reason: Constipation Calcium Carbonate (Calcium Carbonate 750 Mg Tab.Chew) 750 mg PO Q4H PRN PRN Reason: Heartburn Ceftriaxone Sodium (Ceftriaxone Sodium 1 Gm Vial) 1 gm IVPUSH Q24H [facility] Last Admin: 04/08/25 05:57 Dose: 1 gm Documented By: LITA Clonidine HCl (Clonidine Hcl 0.1 Mg Tablet) 0.1 mg PO BEDTIME [facility]; Protocol Last Admin: 04/07/25 19:28 Dose: 0.1 mg Documented By: MIRANDA Clotrimazole (Clotrimazole 1 % Cream 15 Gm Tube) 1 appl TOPICAL BID PRN; Protocol PRN Reason: Fungal Infections Cyanocobalamin (Cyanocobalamin (Vitamin B-12) 1,000 Mcg Tablet) 1,000 mcg PO DAILY [facility] Last Admin: 04/08/25 07:42 Dose: 1,000 mcg Documented By: STEVE Dextrose (Dextrose 50 % 25 Gm/50 Ml Syringe) 25 gm IVPUSH Q15M PRN; Protocol PRN Reason: per Hypoglycemia Standing Ord. Diphenhydramine HCl (Diphenhydramine Hcl 25 Mg Capsule) 25 mg PO Q6H PRN PRN Reason: itchiness Last Admin: 04/08/25 08:21 Dose: 25 mg Documented By: STEVE Famotidine (Famotidine 20 Mg Tablet) 20 mg PO DAILY [facility] Last Admin: 04/08/25 07:41 Dose: 20 mg Documented By: STEVE Ferrous Sulfate (Ferrous Sulfate 324 Mg Tablet.Dr) 324 mg PO FR@0900 [facility] Last Admin: 04/05/25 09:46 Dose: 324 mg Documented By: ALLIE Fluticasone Propionate (Fluticasone Propionate Nasal 16 Gm [place]) 1 spray NOSTRIL-B BEDTIME [facility] Last Admin: 04/07/25 19:26 Dose: 1 spray Documented By: MIRANDA Glucose (Glucose Gel 15 Gm Gel..Gram.) 15 gm PO Q15M PRN; Protocol PRN Reason: per Hypoglycemia Standing Ord. Guaifenesin (Guaifenesin 200 Mg/10 Ml 10 Ml Liquid) 10 ml PO Q4H PRN PRN Reason: Cough Last Admin: 04/07/25 08:07 Dose: 10 ml Documented By: SAULO Azithromycin 500 mg/ Sodium (Chloride) 250 mls @ 125 mls/hr IV Q24H [facility] Last Infusion: 04/08/25 10:26 Dose: Infused Documented By: STEVE Insulin Glargine (Insulin Glargine,Hum.Rec.Anlog 100 Unit/Ml 10 Ml Vial) 28 unit SUBCUT DAILY [facility] Last Admin: 04/08/25 07:54 Dose: 28 unit Documented By: STEVE Insulin Human Lispro (Insulin Lispro 100 Unit/Ml 3 Ml Vial) 0 unit SUBCUT QIDACHS [facility]; Protocol Last Admin: 04/08/25 12:03 Dose: 4 unit Documented By: STEVE Letrozole (Letrozole 2.5 Mg Tablet) 2.5 mg PO DAILY [facility] Last Admin: 04/08/25 07:44 Dose: 2.5 mg Documented By: STEVE Levalbuterol HCl (Levalbuterol Hcl 1.25 Mg/3 Ml Vial.Neb) 1.25 mg INHALE RTID [facility] Last Admin: 04/08/25 13:13 Dose: 1.25 mg Documented By: NICO Levalbuterol HCl (Levalbuterol Hcl 1.25 Mg/3 Ml Vial.Neb) 1.25 mg INHALE Q3H PRN PRN Reason: sob Last Admin: 04/04/25 05:00 Dose: 1.25 mg Documented By: AIMEE Lorazepam (Lorazepam 1 Mg Tablet) 1 mg PO DAILY PRN PRN Reason: Anxiety Last Admin: 04/04/25 08:47 Dose: 1 mg Documented By: ALLIE Magnesium Hydroxide (Milk Of Magnesia 30 Ml Oral.Susp) 30 ml PO DAILY PRN PRN Reason: Constipation Melatonin (Melatonin 3 Mg Tablet) 6 mg PO BEDTIME PRN PRN Reason: Insomnia Ondansetron HCl (Ondansetron Hcl 4 Mg/2 Ml Vial) 4 mg IVPUSH Q8H PRN PRN Reason: Nausea and Vomiting Ondansetron HCl (Ondansetron Odt 4 Mg Tab.Rapdis) 4 mg TRANSLINGU Q8H PRN PRN Reason: Nausea And Vomiting Oxycodone HCl (Oxycodone Hcl Immed Release 5 Mg Tablet) 5 mg PO Q8H PRN PRN Reason: Breakthrough Pain, Moderate Last Admin: 04/08/25 12:27 Dose: 5 mg Documented By: ANDI Paroxetine HCl (Paroxetine Hcl 30 Mg Tablet) 30 mg PO DAILY [facility] Last Admin: 04/08/25 07:42 Dose: 30 mg Documented By: STEVE Polyethylene Glycol (Polyethylene Glycol 3350 17 Gm Powd.Pack) 17 gm PO DAILY [facility] Last Admin: 04/08/25 07:41 Dose: 17 gm Documented By: STEVE Prednisone (Prednisone 20 Mg Tablet) 40 mg PO DAILY [facility] Last Admin: 04/08/25 07:42 Dose: 40 mg Documented By: STEVE Ropinirole HCl (Ropinirole Hcl 1 Mg Tablet) 1 mg PO BID [facility] Last Admin: 04/08/25 07:42 Dose: 1 mg Documented By: STEVE Senna (Sennosides 8.6 Mg Tablet) 17.2 mg PO BEDTIME [facility] Last Admin: 04/07/25 19:28 Dose: 17.2 mg Documented By: MIRANDA Senna (Sennosides 8.6 Mg Tablet) 8.6 mg PO BID PRN PRN Reason: Constipation Sodium Chloride (0.9 % Sodium Chloride Flush 3 Ml Syringe) 3 ml IVFLUSH QSHIFT [facility] Last Admin: 04/08/25 07:55 Dose: Not Given Documented By: STEVE Non-Admin Reason: IV Running Tolterodine Tartrate (Tolterodine Tartrate [place] 4 Mg Cap.Er.24h) 4 mg PO BEDTIME [facility] Last Admin: 04/07/25 19:29 Dose: 4 mg Documented By: MIRANDA Triamcinolone Acetonide (Triamcinolone Acet 0.1 % Cream 15 Gm Tube) 1 appl TOPICAL DAILY PRN; Protocol PRN Reason: Itchy/Dry Skin Vitamin D (Cholecalciferol (Vitamin D3) 25 Mcg Tablet) 50 mcg PO Q48H [facility] Last Admin: 04/07/25 14:56 Dose: 50 mcg Documented By: SAULO Zinc Sulfate (Zinc Sulfate 220 Mg Capsule) 220 mg PO DAILY [facility] Last Admin: 04/08/25 07:43 Dose: 220 mg Documented By: STEVE Labs 04/03/25 06:19 04/05/25 09:10 Labs: Laboratory Results - last 24 hr 04/04/25 04/07/25 04/07/25 09:30 16:18 20:17 POC Glucose 273 H 305 H Pleural pH 7.35 Pleural Total Protein 4.0 Pleural Albumin 3.2 Pleural LDH 279 Pleural Glucose 243 04/08/25 04/08/25 07:04 11:14 POC Glucose 220 H 235 H Pleural pH Pleural Total Protein Pleural Albumin Pleural LDH Pleural Glucose Microbiology Microbiology Results: Microbiology 04/04/25 09:30 Gram Stain - Final Thoracentesis Fluid Anaerobic Culture - Preliminary Culture in progress. Body Fluid Culture - Final No growth after 2 days 04/03/25 01:16 Blood Culture - Final Blood - Venous No growth after 5 days. 04/03/25 01:08 Blood Culture - Final Blood - Venous No growth after 5 days. 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 Patient being admitted with the following medical problems: Acute hypoxic respiratory failure and pneumonia without evidence of sepsis oxygen nasal cannula, wean as tolerated,CTA negative for PE likely pneumonia bilaterally, maybe possibly from aspiration noting patient's report of dysphagia with cough hypoxia resolved still sob with minimal excersion plan:added repeat cxr,continue iv antibiotics ,nebs,supportive care,incentive spirometry, off oxygen. Pneumonia , b/l pleural effusion s/p chest tube-came off last night fluid-wbc elevated lymphocytic moslty,ph normal ,[id number], protein 4.0/albumin 3.2 blood cultures neg 48 hrs ,pleural fluid culture prelim-negative.pathology pending cxr-pleural effusion left side seems to be improved. d/w pulm: less like exudative effusion. no need for placing chest tube again-effusion seems improved. on ceftriaxone and azithromycin (got at least 5days)-she had itching ,will switch to doxycycline,given benadryl for itching. patient is concerned about b/l pleural effusions -added echo also for further workup. pulmonary follow up mild COPD execerbation: sob improving on nebs,steriods Dysphagia GI consulted-barium swallow done: No esophageal obstruction or narrowing seen.Tertiary peristalsis present in the distal esophagus. Transient holdup of barium tablet in the upper and lower esophagus which is subsequently clears with lots of water. dr rawls -recomended for omeprazole -patient currently wants to continue famotidine due to previous side effect with omeprazole. Insulin-dependent diabetes with hyperglycemia dm diet,fs with sliding scale insulin Constipation: prn luxatives. Nicotine dependence:patient counseled on the benefits of smoking cessation patient defers need for nicotine patch at this time DVT prophylaxis: Lovenox. PPI prophylaxis: famotidine ongoing need: pneumonia /pleural effusions :still syptomatic with excersion ,iv antibiotics ,pleural effusion workup . Quality Stroke Does the patient have a stroke diagnosis?: No Reason for No Anti-thrombotic by Day Two: N/A - Med Ordered VTE Prior VTE?: No VTE Risk Level:: Medical - moderate - high VTE Device Contraindication: N/A - Device Ordered VTE Drug Contraindication: N/A - Med Ordered
[2025-04-08] MEDS: Doxycycline Monohydrate 100 MG CAPSULE PO (14:11)
--- NOTE | 2025-04-08 16:01 | MHC.SL.SWA ---
Speech Pathologist Impression: Odynophagia, mild oral phase dysphagia, mild to moderate pharyngeal dysphagia (though variable) Risk of Aspiration Due to: Weakness Hx of dysphagia Dysphasia Diet Status: Liquid Consistency and Strategies for Safe Swallow: Liquid Intake Recommendation: Thin Liquid Intake Strategies: Small Sips Solid Food Consistency: Dietary Recommendations: Chopped/Advanced (NDD3) Additional Modifications to Solid Foods: Patient presents with a mild to moderate oral phase dysphagia, with c/o odynophagia from mouth sores persisting from Chemotherapy treatment. Patient is edentulous. Recommend regular diet and thin liquids, pills whole with puree. Patient with history of GERD, recommend precaution of remaining upright after meals at least 30 minutes. Oral Medication Intake: Whole with Puree Please contact the pharmacy regarding appropriate crushable or liquid drug formulations that are available whenever modified delivery is recommended. Compensatory Strategies and Precautions to be Taken for Safe Swallow: Sitting Upright (90 deg) Double Swallow Small Bites and Sips Alternate Liquids/Solids Rate of Ingestion Change Supervision While Eating and Drinking for Safe Swallow: None Needed Foods to Avoid: Tough, difficult to chew solids Swallowing Recommended Treatments: Compens. Strategy Educat. Recommendation for Speech: Inpatient Speech Therapy Comment: Patient presents with a mild to moderate oral phase dysphagia, with c/o odynophagia from mouth sores persisting from Chemotherapy treatment. Patient is edentulous. Patient has history of GERD, recommend precaution of remaining upright after meals at least 30 minutes. Frequency/Duration: Date Range for Service Req: Timeline to reassess: Furnace Tender Clinican/Clinical Fellow: No Supervisory Statement: I have reviewed and agree with the student/clinical fellow's documentation: N/A Speech Language Pathologist: Devi Melvin M.S., CCC-ANALYTICAL LEAD
--- NOTE | 2025-04-08 16:10 | PM.HEMONCCN ---
Subjective - Subjective Chief complaint: Consult for: 1. Pneumonia 2. History of breast cancer. Patient: known to practice within the last 3 years Consult date: 04/08/25 Requesting Physician: rayray. Primary Care Provider: Concepción Reyes MD Family Provider: Concepción Reyes MD. Medical Summary: DIAGNOSIS: 1. PNEUMONIA. 2. HISTORY OF BREAST CANCER. Pond Supervisor Utilized?: No - [place] Speaking HPI - Consult Narrative Reason for consult: Consult for: 1. Malignant pleural effusion. 2. Breast cancer. Narrative: Sarah Ervin is a 65 year old lady, admitted on 04/03. HPI: past medical history insulin-dependent diabetes mellitus type 2, COPD, anxiety, tobacco dependence for 40 years, hypertension, HER2 positive breast cancer with left breast mastectomy, urinary incontinence/ frequency with stimulator, obesity, PVD. She was brought in by ambulance for an episode of severe sudden onset dyspnea secondary to drinking water with a significant cough productive with yellow sputum. Pt denies fever or chills. Patient felt she may have had an panic attack at the time. Patient denied any chest pain, nausea or vomiting. Patient states she does not use home O2. Patient also reports problems swallowing feeling like food and pills often times get stuck in the esophagus. Incidentally patient is scheduled for colonoscopy in 1 week but there is no plan for an upper scope. In the emergency department patient was started on levofloxacin, methylprednisolone, and magnesium. Patient originally on Oxymizer 6 L, now currently on room air satting 91% with bilateral adventitious lung sounds. Respiratory rate 22. Heart rate 108, sinus tach. Patient afebrile. Leukocytosis of 12.9. LA 2.4 then 2.2, attributed to patient's nebulizer treatments with EMS and in ED. BNP 21, troponin 3.4. Chest x-ray with small bilateral pleural effusions and bibasilar atelectasis and/or consolidation. CTA completed negative for PE, noted moderate bilateral pleural effusions subsegmental ateleectasis versus infiltrate. Narrowing of LSC artery, possible subclavian steal syndrome. Left axillary lymphadenopathy 2.5 cm. Incidentally patient recently started on Trulicity, having issues with constipation and low blood sugars at home. 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 No evidence of ileus or bowel obstruction. Patient admitted with evidence of hypoxia and treatment for pneumonia. Pleural fluid cytology from 04/04 revealed: Positive for malignancy. Breast origin. Barium swallow from 04/05: No esophageal obstruction or narrowing seen. Tertiary peristalsis present in the distal esophagus. Transient holdup of barium tablet in the upper and lower esophagus which is subsequently clears with lots of water. Seen by Nephrology. Consultation: Nephrology consulted for metabolic acidosis, hyperkalemia Patient tachypneic at bedside. complains of shortness of breath. States she is making urine, denies pain/difficulty with urination Potassium 5.2, serum bicarb 14, AG 23 creatinine 0.97, GFR 58 lactic acid 3.7, glucose 363. 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 Patient denies chest pain, abdominal pain, nausea or vomiting. . Pt does have difficulty swallowing. Patient reports last bowel movement 4-5 days prior. Patient does have occasional nausea in the morning upon wakening which resolves with eating. Patient has had low blood sugars but nonetheless 24 hours. Yes all other systems are reviewed and are negative Review of Systems - Neurologic Denies memory loss, Denies seizure-like activity [facility] Medical History: Medical History (Last Reviewed 04/08/25 @ 16:01 by Janeen Baker, PT) Adrenal adenoma Arthritis Cervical cancer screening COPD (chronic obstructive pulmonary disease) DCIS (ductal carcinoma in situ) Diabetes Ductal carcinoma in situ (DCIS) of left breast Effusion of left knee Encounter to discuss test results Environmental and seasonal allergies Fall Family history of prostate cancer in father Generalized anxiety disorder History of anal fissures History of palpitations History of short term memory loss History of unsteady gait HLD (hyperlipidemia) Hx of renal calculi Hypercholesterolemia Hypertension Invasive ductal carcinoma of left breast Leg swelling Low back pain Mild heartburn Multinodular goiter Peripheral neuropathy Peripheral vascular disease Port-A-Cath in place Recent bereavement Shortness of breath Smoker Thyroid nodule TIA (transient ischemic attack) Onset Date: ~12/2024 Type 2 diabetes mellitus with hyperglycemia Urinary incontinence Vaginal yeast infection Vision changes Weakness Functional capacity: independent ambulation Family History: Family History (Last Reviewed 04/03/25 @ 05:42 by CHRISTINA Nelson-JESUS MANUEL) Mother History of breast cancer Father Prostate CA Brother No problems noted. Brother No problems noted. Daughter No problems noted. Surgical History: Surgical History (Last Reviewed 04/08/25 @ 16:01 by Janeen Baker, PT) H/O total mastectomy of left breast Onset Date: 12/21/22 History of appendectomy History of biopsy History of bladder surgery History of cholecystectomy History of endometrial ablation History of left knee replacement History of tonsillectomy Hx of colonoscopy Hx of tubal ligation Social History: Social History (Last Reviewed 04/03/25 @ 05:42 by CHRISTINA Nelson-JESUS MANUEL) Living Situation History: Household Members: Children Household Members Other:: adult daughter [facility] Are you a primary assisted living care manager to a significant other at home: No Do you presently have visiting nurse or other home services: No Do you presently have visiting nurse or other home services comment: daughter cares for her 75 years or older and lives alone: No Tobacco History: Patient Tobacco Use Status: Former Tobacco user Tobacco use type: Cigarette Cigarette Packs Per Day: 1 Years Smoked: 40, 1 pack a day e-Cigarette/Vaping Use: Former Use Second Hand Smoke Exposure: No Occupation Assessmet: service: No Current occupational status: disabled - Travel History Ebola Risk: Travel/Contact With Anyone From Affected Area/s: No Has Patient Experienced Ebola Symptoms: No Home Medications and Allergies Current Medications: Current Medications Acetaminophen (Acetaminophen 325 Mg Tablet) 975 mg PO Q6H [facility] Last Admin: 04/08/25 14:11 Dose: 975 mg Amlodipine Besylate (Amlodipine Besylate 5 Mg Tablet) 5 mg PO BID [facility]; Protocol Last Admin: 04/08/25 07:42 Dose: 5 mg Aspirin (Aspirin Enteric Coated 81 Mg Tablet.) 81 mg PO DAILY [facility] Last Admin: 04/04/25 08:49 Dose: Not Given Atorvastatin Calcium (Atorvastatin Calcium 80 Mg Tablet) 80 mg PO DAILY [facility] Last Admin: 04/08/25 07:42 Dose: 80 mg Bisacodyl (Bisacodyl 10 Mg Supp.Rect) 10 mg [place] BEDTIME PRN PRN Reason: Constipation Calcium Carbonate (Calcium Carbonate 750 Mg Tab.Chew) 750 mg PO Q4H PRN PRN Reason: Heartburn Ceftriaxone Sodium (Ceftriaxone Sodium 1 Gm Vial) 1 gm IVPUSH Q24H [facility] Last Admin: 04/08/25 05:57 Dose: 1 gm Clonidine HCl (Clonidine Hcl 0.1 Mg Tablet) 0.1 mg PO BEDTIME [facility]; Protocol Last Admin: 04/07/25 19:28 Dose: 0.1 mg Clotrimazole (Clotrimazole 1 % Cream 15 Gm Tube) 1 appl TOPICAL BID PRN; Protocol PRN Reason: Fungal Infections Cyanocobalamin (Cyanocobalamin (Vitamin B-12) 1,000 Mcg Tablet) 1,000 mcg PO DAILY [facility] Last Admin: 04/08/25 07:42 Dose: 1,000 mcg Dextrose (Dextrose 50 % 25 Gm/50 Ml Syringe) 25 gm IVPUSH Q15M PRN; Protocol PRN Reason: per Hypoglycemia Standing Ord. Diphenhydramine HCl (Diphenhydramine Hcl 25 Mg Capsule) 25 mg PO Q6H PRN PRN Reason: itchiness Last Admin: 04/08/25 08:21 Dose: 25 mg Doxycycline Monohydrate (Doxycycline Monohydrate 100 Mg Capsule) 100 mg PO Q12H [facility] Last Admin: 04/08/25 14:11 Dose: 100 mg Famotidine (Famotidine 20 Mg Tablet) 20 mg PO DAILY [facility] Last Admin: 04/08/25 07:41 Dose: 20 mg Ferrous Sulfate (Ferrous Sulfate 324 Mg Tablet.) 324 mg PO FR@0900 [facility] Last Admin: 04/05/25 09:46 Dose: 324 mg Fluticasone Propionate (Fluticasone Propionate Nasal 16 Gm [place]) 1 spray NOSTRIL-B BEDTIME [facility] Last Admin: 04/07/25 19:26 Dose: 1 spray Glucose (Glucose Gel 15 Gm Gel..Gram.) 15 gm PO Q15M PRN; Protocol PRN Reason: per Hypoglycemia Standing Ord. Guaifenesin (Guaifenesin 200 Mg/10 Ml 10 Ml Liquid) 10 ml PO Q4H PRN PRN Reason: Cough Last Admin: 04/07/25 08:07 Dose: 10 ml Insulin Glargine (Insulin Glargine,Hum.Rec.Anlog 100 Unit/Ml 10 Ml Vial) 28 unit SUBCUT DAILY [facility] Last Admin: 04/08/25 07:54 Dose: 28 unit Insulin Human Lispro (Insulin Lispro 100 Unit/Ml 3 Ml Vial) 0 unit SUBCUT QIDACHS [facility]; Protocol Last Admin: 04/08/25 12:03 Dose: 4 unit Letrozole (Letrozole 2.5 Mg Tablet) 2.5 mg PO DAILY [facility] Last Admin: 04/08/25 07:44 Dose: 2.5 mg Levalbuterol HCl (Levalbuterol Hcl 1.25 Mg/3 Ml Vial.Neb) 1.25 mg INHALE RTID [facility] Last Admin: 04/08/25 13:13 Dose: 1.25 mg Levalbuterol HCl (Levalbuterol Hcl 1.25 Mg/3 Ml Vial.Neb) 1.25 mg INHALE Q3H PRN PRN Reason: sob Last Admin: 04/04/25 05:00 Dose: 1.25 mg Lorazepam (Lorazepam 1 Mg Tablet) 1 mg PO DAILY PRN PRN Reason: Anxiety Last Admin: 04/04/25 08:47 Dose: 1 mg Magnesium Hydroxide (Milk Of Magnesia 30 Ml Oral.Susp) 30 ml PO DAILY PRN PRN Reason: Constipation Melatonin (Melatonin 3 Mg Tablet) 6 mg PO BEDTIME PRN PRN Reason: Insomnia Ondansetron HCl (Ondansetron Hcl 4 Mg/2 Ml Vial) 4 mg IVPUSH Q8H PRN PRN Reason: Nausea and Vomiting Ondansetron HCl (Ondansetron Odt 4 Mg Tab.Rapdis) 4 mg TRANSLINGU Q8H PRN PRN Reason: Nausea And Vomiting Oxycodone HCl (Oxycodone Hcl Immed Release 5 Mg Tablet) 5 mg PO Q8H PRN PRN Reason: Breakthrough Pain, Moderate Last Admin: 04/08/25 12:27 Dose: 5 mg Paroxetine HCl (Paroxetine Hcl 30 Mg Tablet) 30 mg PO DAILY [facility] Last Admin: 04/08/25 07:42 Dose: 30 mg Polyethylene Glycol (Polyethylene Glycol 3350 17 Gm Powd.Pack) 17 gm PO DAILY [facility] Last Admin: 04/08/25 07:41 Dose: 17 gm Prednisone (Prednisone 20 Mg Tablet) 40 mg PO DAILY [facility] Last Admin: 04/08/25 07:42 Dose: 40 mg Ropinirole HCl (Ropinirole Hcl 1 Mg Tablet) 1 mg PO BID [facility] Last Admin: 04/08/25 07:42 Dose: 1 mg Senna (Sennosides 8.6 Mg Tablet) 17.2 mg PO BEDTIME [facility] Last Admin: 04/07/25 19:28 Dose: 17.2 mg Senna (Sennosides 8.6 Mg Tablet) 8.6 mg PO BID PRN PRN Reason: Constipation Sodium Chloride (0.9 % Sodium Chloride Flush 3 Ml Syringe) 3 ml IVFLUSH QSHIFT [facility] Last Admin: 04/08/25 07:55 Dose: Not Given Tolterodine Tartrate (Tolterodine Tartrate La 4 Mg Cap.Er.24h) 4 mg PO BEDTIME [facility] Last Admin: 04/07/25 19:29 Dose: 4 mg Triamcinolone Acetonide (Triamcinolone Acet 0.1 % Cream 15 Gm Tube) 1 appl TOPICAL DAILY PRN; Protocol PRN Reason: Itchy/Dry Skin Vitamin D (Cholecalciferol (Vitamin D3) 25 Mcg Tablet) 50 mcg PO Q48H [facility] Last Admin: 04/07/25 14:56 Dose: 50 mcg Zinc Sulfate (Zinc Sulfate 220 Mg Capsule) 220 mg PO DAILY [facility] Last Admin: 04/08/25 07:43 Dose: 220 mg Home Medications ?Medication ?Instructions ?Recorded ?Confirmed ?Type acetaminophen 325 mg capsule 325 mg PO QID PRN Pain 09/01/22 04/11/25 History cyanocobalamin (vitamin B-12) 1,000 mcg PO DAILY 09/04/22 04/11/25 History 1,000 mcg tablet ferrous sulfate 325 mg (65 mg 325 mg PO FR@0900 08/09/24 04/11/25 History iron) tablet (Iron (ferrous sulfate)) zinc gluconate 50 mg tablet 50 mg PO DAILY 08/09/24 04/11/25 History albuterol sulfate 90 mcg/actuation 1 puff inhalation QID PRN 04/03/25 04/11/25 History aerosol inhaler Shortness Of Breath Or Wheezing atorvastatin 80 mg tablet 80 mg PO DAILY 04/03/25 04/11/25 History cholecalciferol (vitamin D3) 50 50 mcg PO Q48H 04/03/25 04/11/25 History mcg (2,000 unit) capsule clotrimazole 1 % topical cream 1 appl topical BID PRN Fungal 04/03/25 04/11/25 History Infections dulaglutide 0.75 mg/0.5 mL 0.75 mg subcut FR 04/03/25 04/11/25 History subcutaneous pen injector (Trulicity) fluticasone propionate 50 1 spray intranasal BEDTIME 04/03/25 04/11/25 History mcg/actuation nasal spray,suspension (Flonase Allergy Relief) insulin aspart U-100 100 unit/mL 10 - 20 unit subcut TIDAC 04/03/25 04/11/25 History (3 mL) subcutaneous pen (Novolog FlexPen U-100 Insulin aspart) ondansetron 4 mg disintegrating 4 mg PO Q8H PRN Nausea And Vomiting 04/03/25 04/11/25 History tablet sennosides 8.6 mg tablet (Senokot) 8.6 mg PO BID PRN Constipation 04/03/25 04/11/25 History solifenacin 5 mg tablet (Vesicare) 5 mg PO BEDTIME 04/03/25 04/11/25 History triamcinolone acetonide 0.1 % 1 appl topical DAILY PRN Itchy/Dry 04/03/25 04/11/25 History topical cream Skin Allergies Allergy/AdvReac Type Severity Reaction Status Date / Time diclofenac [From Voltaren] Allergy Severe enlarged Verified 04/03/25 01:00 liver lisinopril [From Zestril] Allergy Severe Angioedema Verified 04/03/25 01:00 losartan Allergy Severe Angioedema Verified 04/03/25 01:00 omeprazole Allergy Intermediate elevated Verified 04/03/25 01:00 blood pressure Penicillins [PENICILLINS] Allergy Intermediate Facial Verified 04/03/25 01:00 Swelling oxybutynin [Oxybutynin] AdvReac Severe body Verified 04/03/25 01:00 twitching gabapentin AdvReac Intermediate Hypertensio Verified 04/03/25 01:00 n metformin AdvReac Intermediate Diarrhea Verified 04/03/25 01:00 duloxetine AdvReac Intermediate tachycardia Uncoded 04/03/25 01:00 Physical Exam Vital signs: Vital Signs Temp 97.7 F 04/08/25 15:11 Pulse 100 04/08/25 15:11 Resp 18 04/08/25 15:11 BP 146/77 H 04/08/25 15:11 Pulse Ox 93 04/08/25 15:11 O2 Del Method Room Air 04/08/25 15:11 O2 Flow Rate 2 04/07/25 07:22 Intake & Output 04/07/25 04/08/25 04/08/25 18:59 06:59 18:59 Intake Total 690 / 990 300 / 990 770 / 770 Output Total 1000 / 1000 700 / 700 Balance 690 / -10 -700 / -10 70 / 70 Urine Output (Average ml/kg/hr) 0.85 0.59 Intake: Intake, Oral Amount 440 / 740 300 / 740 520 / 520 Intake, IV Amount 250 / 250 250 / 250 Azithromycin 500 mg In 0.9 % 250 / 250 250 / 250 Sodium Chloride 250 ml @ 125 mls/hr IV Q24H [facility] Rx#: [id number] Output: Output, Urine Amount (Catheter) 1000 / 1000 700 / 700 Purewick 1000 / 1000 700 / 700 Other: Meal Refused No No NPO No No Breakfast % Eaten 100% 100% Lunch % Eaten 100% 100% Eating (Feeding) Ability Independent Number of Incontinent Voids 2 1 2 Urine Purewick Urine Color Yellow Yellow Last Bowel Movement 04/05/25 04/06/25 Continuous Bladder Irrigation Fluid - Amount Drained Purewick 600 Weight 98.43 kg Hem/Onc Consult Result - Labs CBC & Chem 7: 04/09/25 11:29 04/09/25 11:29 Assessment and Plan Patient Active problem list reviewed?: Yes (1) Malignant pleural effusion Status: Acute Assessment and plan: This is a pleasant 65-year-old lady with a diagnosis of left breast carcinoma. She had an abnormal Mammogram from March 23: Left: -Suspicious irregular hypoechoic lesion 12:00 periareolar, measuring 0.9 cm. -Abnormal diffuse thickening skin. Right: -No mammographic evidence of malignancy. ASSESSMENT: BI-RADS 4: Suspicious (subcategory 4C: High suspicion for malignancy) Underwent biopsy on 03/29. Pathology results: -Invasive ductal carcinoma, MSBR grade 2. -Ductal carcinoma in situ, nuclear grade 2, with focal necrosis. -Foci highly suspicious for lymphovascular invasion. -ER: positive; KS: Positive,; HER-2: 2+ (FISH results to be addended). She had a biopsy of the left axillary node by IR on 04/27, pathology revealed: Metastatic carcinoma consistent with a breast primary. She is turning out to have her more advanced disease. The PET scan from 06/08 revealed: 1. Previously identified left breast subareolar mass and left axillary lymphadenopathy shows mild increased radiotracer activities, consistent with clinically known biopsy-proven primary left breast malignancy and metastatic left axillary lymphadenopathy. No other additional metabolically active disease is identified within the remainder of the visualized part of the head and neck, chest abdomen and pelvis. 2. Incidental note however is made of lipid rich left adrenal adenoma and approximately 1.7 cm right adrenal solid non-FDG avid nodule with Hounsfield value of 27 which is not optimally characterized on this study. Follow-up CT scan per adrenal mass protocol with and without intravenous contrast including delayed imaging, as appropriate may be considered for further characterization of this right adrenal nodule. 3. Solitary sub-5 mm radiopaque nonobstructing left renal calculus. 4. Incidental note is made of nonspecific mild increased radiotracer activity involving the distal part of the left forearm, without any CT correlate, not optimally characterized. Clinical correlation/direct visualization as appropriate is recommended for further clarification. Follow-up targeted ultrasound and/or MRI with intravenous contrast may also be considered if clinically appropriate for further clarification. Echocardiogram from 06/17: Normal left ventricular ejection fraction. 55-60%. The plan was formulated to treat her with corby-adjuvant therapy. Since she has HER2 positive disease, to treat with TCHP X 6 cycles. She had a Port-A-Cath placed. She was started on chemotherapy on 07/01. Came in for Neulasta on 07/02. She has had some side effects related to the treatment. She recieved cycle 6 on 10/18. Her breast mass resolved. She underwent left simple mastectomy on 12/[address] Teran. Pathology: Invasive ductal carcinoma with micropapillary features, multi focal, 2.3 cm in greatest extent. MSBR grade 3, positive inferior soft tissue margin and less than 1 mm to superior soft tissue margin. Widespread lymphovascular invasion including in dermal lymphatics. Lymph nodes: Axillary: 1 with macrometastases. Extranodal extension: Present. Size of largest met deposit: 7 mm. Triple positive. Low proliferation index. TNM: yPT2.(m), N1a. Ca 27.29 from 11/23:36. From 01/06: 38. 01/26/24 A PET scan was done for staging, it revealed: 1. Postsurgical changes of left-sided mastectomy. Mildly FDG avid skin thickening at the surgical bed is most consistent with postsurgical changes. 2. No evidence of any metastatic disease. Previously documented, clinically known bilateral adrenal hypodense masses appear stable.Please refer to the report of the dedicated CT of the adrenal glands performed on 07/15/2022 for further full details. This was reassuring. According to the NCCN guidelines, she was started on HER2 directed therapy with Enhertu, along with antiestrogen therapy. She was started on letrozole and Enhertu. Between 01/27/2023 and 09/22/2023 she received 11 cycles. Enhertu was stopped on account of toxicity. She was bothered by constipation and peripheral neuropathy, that was rather painful. The Duloxetine did not help. She continues to take the letrozole. She had intermittent symptoms of shortness of breath and palpitations. She was seen by Dr. Serrano from cardiology,he has initiated a detailed evaluation. She had the echocardiogram and stress test. She has the event monitor on for 7 days. She was started on verapamil. Ultrasound of the leg revealed: The left peroneal vein and the distal segment of the right peroneal vein are not well-visualized.Otherwise no evidence of deep venous thrombosis involving the bilateral lower extremities. She has left hip pain. A bone scan from 08/29 revealed: 1. Mild bilaterally symmetrically increased activity in the humeral heads bilaterally is nonspecific and probably arthritic in etiology. Less likely would be bilateral aseptic necrosis. If clinically indicated this could be further characterized with MRI performed without and with intravenous contrast. 2. A few additional mild nonspecific abnormalities are noted as described above and these are all likely arthritic or traumatic in etiology. None of these abnormalities is strongly suspicious for metastatic disease. She is currently on oxycodone for the pain. She saw Dr. Hagan,who gave her an injection. Also considering pump for the neuropathy. She has had dysphagia. Upper GI series from 10/10 revealed: 1. Trace laryngeal penetration with thick barium. 2. Mildly disorganized esophageal peristalsis. 3. Small foci of contrast pooling in the body the stomach that likely represent small mucosal ulcerations. Recommend correlation with EGD. 4. Tiny Zenker's diverticulum. l referred her to GI for further evaluation. She was scheduled for an EGD and colonoscopy in March. If she needs dilatation that can also be done. She has now been admitted with peumonia.and bilateral pleural effusions. Thoracentesis revealed: Positive for malignant cells consistent with a breast primary. She did have a chest tube placed however unfortunately that fell out by mistake. PLAN: I would recommend requesting IR to place a PleurX catheter to drain the fluid and it eventually accomplished pleurodesis. I will see her in the office and start her on antitumor therapy with Enhertu. Meanwhile she will hold off on the antiestrogen therapy, the letrozole for now. Will switch her to another aromatase inhibitor: Aromasin, as an outpatient. I will continue to follow her along with you, Thanks, CC: Dr. Reyes. - Time Spent With Patient Time Spent with Patient (in minutes): 30
[2025-04-08 16:25] LABS: Glucose, Whole Blood 280 mg/dL (60-115)
[2025-04-08] MEDS: 0.9 % Sodium Chloride Flush 3 ML SYRINGE IVFLUSH ×2 (16:53→20:11)
[2025-04-08] MEDS: Enoxaparin Sodium 40 MG/0.4 ML SYRINGE SUBCUT (18:07)
--- NOTE | 2025-04-08 18:12 | P.CDIM_ITS ---
PROVIDER RESPONSE TEXT: To clarify, the appropriate diagnosis supported by the clinical indicators: Acute QUERY TEXT: PHYSICIAN'S DOCUMENTATION REQUEST Date of Query: 04/08/2025 10:07 AM EDT Patient Name: Sarah Ervin Admit Date: 04/03/2025 Dear Trino Davison MD, A review of the medical record indicates additional documentation may be needed. Please review below and update the documentation accordingly. Clinical Indicators: Nephrology progress note 04/05/25 - Nephrology consulted for metabolic acidosis, hyperkalemia. Recommend treating underlying cause of respiratory alkalosis, as well as metabolic acidosis from elev ated lactate. Clarify which of the following accurately represents the acuity of the Metabolic acidosis within the written Plan: Acute Chronic Other (explain) Clinically unable to determine (explain) Thank you, Beatriz Zacarias, CCS, CDIS Use of terms such as suspected, likely, concern for, or probable (associated with a specific diagnosi s that is being evaluated, monitored, or treated as if it exists) are acceptable and can be coded in the inpatient se tting, when documented at the time of discharge. Please use your independent medical judgment in providing your response. THIS QUERY IS PART OF THE PERMANENT MEDICAL RECORD
[2025-04-08] MEDS: cloNIDine HCL 0.1 MG TABLET PO (20:08)
[2025-04-08] MEDS: Sennosides 8.6 MG TABLET 17.2 MG PO (20:08)
[2025-04-08] MEDS: Tolterodine Tartrate LA 4 MG CAP.ER.24H PO (20:08)
[2025-04-08] MEDS: Fluticasone Propionate Nasal 16 GM SPRAY 1 SPRAY NOSTRIL-B (20:09)
[2025-04-08 20:56] LABS: Glucose, Whole Blood 368 mg/dL (60-115)
[2025-04-09] VITALS (10 sets, daily range): BP systolic 130–163; BP diastolic 65–85; PULSE 88–122; RESP 18–21; TEMP 36–36.6; O2SAT 92–96
[2025-04-09] MEDS: Doxycycline Monohydrate 100 MG CAPSULE PO ×2 (02:02→13:23)
[2025-04-09] MEDS: Acetaminophen 325 MG TABLET 975 MG PO ×4 (02:02→21:04)
[2025-04-09] MEDS: cefTRIAXone sodium 1 GM VIAL IVPUSH (05:30)
[2025-04-09] MEDS: oxyCODONE HCl Immed Release 5 MG TABLET PO (05:31)
[2025-04-09 07:24] LABS: Glucose, Whole Blood 215 mg/dL (60-115)
[2025-04-09] MEDS: polyethylene glycoL 3350 17 GM POWD.PACK PO (07:34)
[2025-04-09] MEDS: Zinc Sulfate 220 MG CAPSULE PO (07:35)
[2025-04-09] MEDS: predniSONE 20 MG TABLET 40 MG PO (07:35)
[2025-04-09] MEDS: Cyanocobalamin (Vitamin B-12) 1,000 MCG TABLET 1000 MCG PO (07:35)
[2025-04-09] MEDS: Famotidine 20 MG TABLET PO (07:35)
[2025-04-09] MEDS: Atorvastatin Calcium 80 MG TABLET PO (07:35)
[2025-04-09] MEDS: rOPINIRole HCL 1 MG TABLET PO ×2 (07:35→21:01)
[2025-04-09] MEDS: PARoxetine HCL 30 MG TABLET PO (07:36)
[2025-04-09] MEDS: Insulin Lispro 100 UNIT/ML 3 ML VIAL SUBCUT ×4 (07:36→21:02)
[2025-04-09] MEDS: Letrozole 2.5 MG TABLET PO (07:36)
[2025-04-09] MEDS: Insulin Glargine,Hum.rec.anlog 100 UNIT/ML 10 ML VIAL 28 UNIT SUBCUT (07:36)
[2025-04-09] MEDS: amLODIPine Besylate 5 MG TABLET PO ×2 (07:36→21:02)
[2025-04-09] MEDS: 0.9 % Sodium Chloride Flush 3 ML SYRINGE IVFLUSH ×3 (07:37→21:10)
[2025-04-09] MEDS: levalbuterol HCL 1.25 MG/3 ML VIAL.NEB INHALE ×3 (08:04→19:29)
--- NOTE | 2025-04-09 11:01 | HO.PM.IMPN ---
Subjective Subjective Date of Service: 04/09/25 Interval History: Follow up Malignant effusion better today , still some sob on exertion Review of Systems sob improving but still sob with excersion ? itching with azithromycin feels anxious. Review of Systems: Yes all other systems are reviewed and are negative Physical Exam Vital Signs: Vital Signs: Last Vital Signs Temp 97.7 F 04/09/25 07:15 Pulse 90 04/09/25 08:08 Resp 18 04/09/25 08:08 BP 163/85 H 04/09/25 07:15 Pulse Ox 95 04/09/25 07:15 O2 Del Method Room Air 04/09/25 07:15 O2 Flow Rate 2 04/07/25 07:22 BMI result Body Mass Index 37.2 Appearing in no acute distress lung sounds are clear to auscultation heart regular rate rhythm, clear S1, S2 positive bowel sounds, abdomen is soft, nontender neuro patient is alert x3, no focal deficits Objective Data Active Medications Acetaminophen (Acetaminophen 325 Mg Tablet) 975 mg PO Q6H [facility] Last Admin: 04/09/25 07:35 Dose: 975 mg Documented By: JUVENTINO Amlodipine Besylate (Amlodipine Besylate 5 Mg Tablet) 5 mg PO BID [facility]; Protocol Last Admin: 04/09/25 07:36 Dose: 5 mg Documented By: JUVENTINO Aspirin (Aspirin Enteric Coated 81 Mg Tablet.) 81 mg PO DAILY [facility] Last Admin: 04/04/25 08:49 Dose: Not Given Documented By: ALLIE Non-Admin Reason: md morales Atorvastatin Calcium (Atorvastatin Calcium 80 Mg Tablet) 80 mg PO DAILY [facility] Last Admin: 04/09/25 07:35 Dose: 80 mg Documented By: JUVENTINO Bisacodyl (Bisacodyl 10 Mg Supp.Rect) 10 mg [place] BEDTIME PRN PRN Reason: Constipation Calcium Carbonate (Calcium Carbonate 750 Mg Tab.Chew) 750 mg PO Q4H PRN PRN Reason: Heartburn Ceftriaxone Sodium (Ceftriaxone Sodium 1 Gm Vial) 1 gm IVPUSH Q24H [facility] Last Admin: 04/09/25 05:30 Dose: 1 gm Documented By: ED Clonidine HCl (Clonidine Hcl 0.1 Mg Tablet) 0.1 mg PO BEDTIME [facility]; Protocol Last Admin: 04/08/25 20:08 Dose: 0.1 mg Documented By: ED Clotrimazole (Clotrimazole 1 % Cream 15 Gm Tube) 1 appl TOPICAL BID PRN; Protocol PRN Reason: Fungal Infections Cyanocobalamin (Cyanocobalamin (Vitamin B-12) 1,000 Mcg Tablet) 1,000 mcg PO DAILY [facility] Last Admin: 04/09/25 07:35 Dose: 1,000 mcg Documented By: JUVENTINO Dextrose (Dextrose 50 % 25 Gm/50 Ml Syringe) 25 gm IVPUSH Q15M PRN; Protocol PRN Reason: per Hypoglycemia Standing Ord. Diphenhydramine HCl (Diphenhydramine Hcl 25 Mg Capsule) 25 mg PO Q6H PRN PRN Reason: itchiness Last Admin: 04/08/25 08:21 Dose: 25 mg Documented By: STEVE Doxycycline Monohydrate (Doxycycline Monohydrate 100 Mg Capsule) 100 mg PO Q12H [facility] Last Admin: 04/09/25 02:02 Dose: 100 mg Documented By: ED Enoxaparin Sodium (Enoxaparin Sodium 40 Mg/0.4 Ml Syringe) 40 mg SUBCUT Q24H [facility] Last Admin: 04/08/25 18:07 Dose: 40 mg Documented By: STEVE Famotidine (Famotidine 20 Mg Tablet) 20 mg PO DAILY [facility] Last Admin: 04/09/25 07:35 Dose: 20 mg Documented By: JUVENTINO Ferrous Sulfate (Ferrous Sulfate 324 Mg Tablet.Dr) 324 mg PO FR@0900 [facility] Last Admin: 04/05/25 09:46 Dose: 324 mg Documented By: ALLIE Fluticasone Propionate (Fluticasone Propionate Nasal 16 Gm [place]) 1 spray NOSTRIL-B BEDTIME [facility] Last Admin: 04/08/25 20:09 Dose: 1 spray Documented By: ED Glucose (Glucose Gel 15 Gm Gel..Gram.) 15 gm PO Q15M PRN; Protocol PRN Reason: per Hypoglycemia Standing Ord. Guaifenesin (Guaifenesin 200 Mg/10 Ml 10 Ml Liquid) 10 ml PO Q4H PRN PRN Reason: Cough Last Admin: 04/07/25 08:07 Dose: 10 ml Documented By: SAULO Insulin Glargine (Insulin Glargine,Hum.Rec.Anlog 100 Unit/Ml 10 Ml Vial) 28 unit SUBCUT DAILY [facility] Last Admin: 04/09/25 07:36 Dose: 28 unit Documented By: JUVENTINO Insulin Human Lispro (Insulin Lispro 100 Unit/Ml 3 Ml Vial) 0 unit SUBCUT QIDACHS [facility]; Protocol Last Admin: 04/09/25 07:36 Dose: 4 unit Documented By: JUVENTINO Letrozole (Letrozole 2.5 Mg Tablet) 2.5 mg PO DAILY [facility] Last Admin: 04/09/25 07:36 Dose: 2.5 mg Documented By: JUVENTINO Levalbuterol HCl (Levalbuterol Hcl 1.25 Mg/3 Ml Vial.Neb) 1.25 mg INHALE RTID [facility] Last Admin: 04/09/25 08:04 Dose: 1.25 mg Documented By: RK Levalbuterol HCl (Levalbuterol Hcl 1.25 Mg/3 Ml Vial.Neb) 1.25 mg INHALE Q3H PRN PRN Reason: sob Last Admin: 04/04/25 05:00 Dose: 1.25 mg Documented By: AIMEE Lorazepam (Lorazepam 1 Mg Tablet) 1 mg PO DAILY PRN PRN Reason: Anxiety Last Admin: 04/04/25 08:47 Dose: 1 mg Documented By: ALLIE Magnesium Hydroxide (Milk Of Magnesia 30 Ml Oral.Susp) 30 ml PO DAILY PRN PRN Reason: Constipation Melatonin (Melatonin 3 Mg Tablet) 6 mg PO BEDTIME PRN PRN Reason: Insomnia Ondansetron HCl (Ondansetron Hcl 4 Mg/2 Ml Vial) 4 mg IVPUSH Q8H PRN PRN Reason: Nausea and Vomiting Ondansetron HCl (Ondansetron Odt 4 Mg Tab.Rapdis) 4 mg TRANSLINGU Q8H PRN PRN Reason: Nausea And Vomiting Oxycodone HCl (Oxycodone Hcl Immed Release 5 Mg Tablet) 5 mg PO Q8H PRN PRN Reason: Breakthrough Pain, Moderate Last Admin: 04/09/25 05:31 Dose: 5 mg Documented By: ED Paroxetine HCl (Paroxetine Hcl 30 Mg Tablet) 30 mg PO DAILY [facility] Last Admin: 04/09/25 07:36 Dose: 30 mg Documented By: JUVENTINO Polyethylene Glycol (Polyethylene Glycol 3350 17 Gm Powd.Pack) 17 gm PO DAILY [facility] Last Admin: 04/09/25 07:34 Dose: 17 gm Documented By: JUVENTINO Prednisone (Prednisone 20 Mg Tablet) 40 mg PO DAILY [facility] Last Admin: 04/09/25 07:35 Dose: 40 mg Documented By: JUVENTINO Ropinirole HCl (Ropinirole Hcl 1 Mg Tablet) 1 mg PO BID [facility] Last Admin: 04/09/25 07:35 Dose: 1 mg Documented By: JUVENTINO Senna (Sennosides 8.6 Mg Tablet) 17.2 mg PO BEDTIME [facility] Last Admin: 04/08/25 20:08 Dose: 17.2 mg Documented By: ED Senna (Sennosides 8.6 Mg Tablet) 8.6 mg PO BID PRN PRN Reason: Constipation Sodium Chloride (0.9 % Sodium Chloride Flush 3 Ml Syringe) 3 ml IVFLUSH QSHIFT [facility] Last Admin: 04/09/25 07:37 Dose: 3 ml Documented By: JUVENTINO Tolterodine Tartrate (Tolterodine Tartrate [place] 4 Mg Cap.Er.24h) 4 mg PO BEDTIME [facility] Last Admin: 04/08/25 20:08 Dose: 4 mg Documented By: ED Triamcinolone Acetonide (Triamcinolone Acet 0.1 % Cream 15 Gm Tube) 1 appl TOPICAL DAILY PRN; Protocol PRN Reason: Itchy/Dry Skin Vitamin D (Cholecalciferol (Vitamin D3) 25 Mcg Tablet) 50 mcg PO Q48H [facility] Last Admin: 04/07/25 14:56 Dose: 50 mcg Documented By: SAULO Zinc Sulfate (Zinc Sulfate 220 Mg Capsule) 220 mg PO DAILY [facility] Last Admin: 04/09/25 07:35 Dose: 220 mg Documented By: JUVENTINO Labs 04/03/25 06:19 04/05/25 09:10 Labs: Laboratory Results - last 24 hr 04/08/25 04/08/25 04/08/25 11:14 16:22 20:52 POC Glucose 235 H 280 H 368 H* 04/09/25 07:17 POC Glucose 215 H Microbiology Microbiology Results: Microbiology 04/04/25 09:30 Gram Stain - Final Thoracentesis Fluid Anaerobic Culture - Final NO GROWTH AFTER 5 DAYS Body Fluid Culture - Final No growth after 2 days Assessment and Plan (1) Hyperkalemia: Status: Acute (2) Acute hypoxic respiratory failure: Status: Acute Assessment and Plan: 65-year-old female with past medical history insulin-dependent diabetes mellitus type 2, COPD, anxiety, tobacco dependence for 40 years, hypertension, HER2 positive breast cancer with left breast mastectomy, urinary incontinence/ frequency with stimulator, obesity, PVD came into the emergency department with complaints of sudden onset dyspnea and closure of throat with a possible panic attack. Patient being admitted with the following medical problems Acute hypoxic respiratory failure and pneumonia without evidence of sepsis oxygen nasal cannula, wean as tolerated CTA negative for PE, likely pneumonia bilaterally, maybe possibly from aspiration noting patient's report of dysphagia with cough hypoxia resolved still sob with minimal exertion Continue Rocephin and doxy for now incentive spirometry home o2 eval Pneumonia, b/l Malignant pleural effusion s/p chest tube Treated with 5 days of IV antibiotics blood cultures neg 48 hrs Pleural fluid cytology positive for malignant cells compatible with breast origin Patient to follow up with Oncology outpatient Mild COPD execerbation sob improving on nebs, steriods Dysphagia s/p barium swallow>No esophageal obstruction or narrowing seen. Tertiary peristalsis present in the distal esophagus. Transient holdup of barium tablet in the upper and lower esophagus which is subsequently clears with lots of water. GI>rec PPI Insulin-dependent diabetes with hyperglycemia ss, ada diet Constipation prn laxatives. Nicotine dependence patient counseled on the benefits of smoking cessation patient defers need for nicotine patch at this time DISPO PT rec home with services DVT prophylaxis: Lovenox. Full code Quality Stroke Does the patient have a stroke diagnosis?: No Reason for No Anti-thrombotic by Day Two: N/A - Med Ordered VTE Prior VTE?: No VTE Risk Level:: Medical - moderate - high VTE Device Contraindication: N/A - Device Ordered VTE Drug Contraindication: N/A - Med Ordered
[2025-04-09 11:05] LABS: Glucose, Whole Blood 276 mg/dL (60-115)
[2025-04-09 11:37] LABS: Hematocrit 43.9 % (37.0-47.0); Hemoglobin 14.9 g/dl (12.0-16.0); Mean Corpuscular HGB Conc 33.9 g/dl (31.0-35.0); Mean Corpuscular Hemoglobin 30.7 pg (27.0-33.0); Mean Corpuscular Volume 90.5 fL (80.0-98.0); Mean Platelet Volume 10.2 fL (9.4-12.3); Platelet Count 325 X10*3/uL (160-400); Red Blood Count 4.85 X10*6/uL (4.20-5.50); Red Cell Distribution Width 13.2 % (11.0-16.0); White Blood Count 20.4 X10*3/uL (4.8-10.8)
[2025-04-09 11:52] LABS: Anion Gap 12 (12-20); Blood Urea Nitrogen 17 mg/dL (9-16); Calcium 8.9 mg/dL (8.4-10.2); Carbon Dioxide 25 mmol/L (22-29); Chloride 102 mmol/L (96-108); Creatinine Clr Calc Pharmacy 95.2; Estimated Glomerular Filt Rate > 60; Glucose Random 265 mg/dL (60-115); Potassium 4.6 mmol/L (3.3-5.1); Sodium 134 mmol/L (135-145)
[2025-04-09] MEDS: Cholecalciferol (Vitamin D3) 25 MCG TABLET 50 MCG PO (13:23)
--- NOTE | 2025-04-09 14:48 | MHC.SL.SWA ---
Risk of Aspiration Due to: globus sensation Dysphasia Diet Status: NO CHANGE Liquid Consistency and Strategies for Safe Swallow: Liquid Intake Recommendation: Thin Liquid Intake Strategies: Small Sips Solid Food Consistency: Dietary Recommendations: Chopped/Advanced (NDD3) Additional Modifications to Solid Foods: moisten in sauce/gravy Oral Medication Intake: Whole with Puree Please contact the pharmacy regarding appropriate crushable or liquid drug formulations that are available whenever modified delivery is recommended. Compensatory Strategies and Precautions to be Taken for Safe Swallow: Sitting Upright (90 deg) Double Swallow Small Bites and Sips Alternate Liquids/Solids Rate of Ingestion Change Supervision While Eating and Drinking for Safe Swallow: None Needed Foods to Avoid: Tough, difficult to chew solids Swallowing Recommended Treatments: Compens. Strategy Educat. Recommendation for Speech: Inpatient Speech Therapy Patient presents with a mild to moderate oral phase dysphagia, with c/o odynophagia from mouth sores persisting from Chemotherapy treatment. Patient is edentulous. Recommend continue w/ regular solids and thin liquids, pills whole with puree. Patient with history of GERD, recommend precaution of remaining upright after meals at least 30 minutes. Recommend outpatient MBSS to further investigate difficulty with pills/solids in throat and rule in/out silent aspiration. [employer] BOBJ DEVELOPER to f/u 1x to monitor tolerance. Carpet Installation Specialist Clinican/Clinical Fellow: No Supervisory Statement: I have reviewed and agree with the student/clinical fellow's documentation: N/A Speech Language Pathologist: Keely Frausto M.A., [facility] [employer] DEVELOPER
[2025-04-09 16:12] LABS: Glucose, Whole Blood 363 mg/dL (60-115)
[2025-04-09] MEDS: Enoxaparin Sodium 40 MG/0.4 ML SYRINGE SUBCUT (17:09)
[2025-04-09 20:55] LABS: Glucose, Whole Blood 324 mg/dL (60-115)
[2025-04-09] MEDS: Sennosides 8.6 MG TABLET 17.2 MG PO (21:01)
[2025-04-09] MEDS: Tolterodine Tartrate LA 4 MG CAP.ER.24H PO (21:02)
[2025-04-09] MEDS: cloNIDine HCL 0.1 MG TABLET PO (21:02)
[2025-04-09] MEDS: Fluticasone Propionate Nasal 16 GM SPRAY 1 SPRAY NOSTRIL-B (21:03)
[2025-04-10] MEDS: Acetaminophen 325 MG TABLET 975 MG PO ×3 (02:08→13:47)
[2025-04-10] MEDS: Doxycycline Monohydrate 100 MG CAPSULE PO ×2 (02:08→13:47)
[2025-04-10 03:37] VITALS: BP 156/84; PULSE 107; RESP 20; TEMP 36.2; O2SAT 95
[2025-04-10 03:57] VITALS: PULSE 98
[2025-04-10] MEDS: cefTRIAXone sodium 1 GM VIAL IVPUSH (05:41)
[2025-04-10 07:18] LABS: Glucose, Whole Blood 202 mg/dL (60-115)
[2025-04-10] MEDS: Zinc Sulfate 220 MG CAPSULE PO (07:38)
[2025-04-10] MEDS: Insulin Glargine,Hum.rec.anlog 100 UNIT/ML 10 ML VIAL 28 UNIT SUBCUT (07:38)
[2025-04-10] MEDS: Insulin Lispro 100 UNIT/ML 3 ML VIAL SUBCUT ×2 (07:38→11:42)
[2025-04-10] MEDS: polyethylene glycoL 3350 17 GM POWD.PACK PO (07:38)
[2025-04-10] MEDS: PARoxetine HCL 30 MG TABLET PO (07:39)
[2025-04-10] MEDS: predniSONE 20 MG TABLET 40 MG PO (07:39)
[2025-04-10] MEDS: rOPINIRole HCL 1 MG TABLET PO (07:39)
[2025-04-10] MEDS: 0.9 % Sodium Chloride Flush 3 ML SYRINGE IVFLUSH ×2 (07:40→13:48)
[2025-04-10] MEDS: Famotidine 20 MG TABLET PO (07:40)
[2025-04-10] MEDS: Atorvastatin Calcium 80 MG TABLET PO (07:40)
[2025-04-10] MEDS: Cyanocobalamin (Vitamin B-12) 1,000 MCG TABLET 1000 MCG PO (07:40)
[2025-04-10] MEDS: amLODIPine Besylate 5 MG TABLET PO (07:40)
[2025-04-10] MEDS: Letrozole 2.5 MG TABLET PO (07:40)
[2025-04-10 08:00] VITALS: BP 136/80; PULSE 96; RESP 18; TEMP 36.1; O2SAT 94
[2025-04-10 08:22] VITALS: PULSE 98; RESP 18; O2SAT 96
[2025-04-10] MEDS: levalbuterol HCL 1.25 MG/3 ML VIAL.NEB INHALE (08:24)
[2025-04-10 11:31] VITALS: BP 147/76; PULSE 103; RESP 18; TEMP 36.3; O2SAT 95
[2025-04-10 11:33] LABS: Glucose, Whole Blood 315 mg/dL (60-115)
[2025-04-10] MEDS: oxyCODONE HCl Immed Release 5 MG TABLET PO (12:08)
--- NOTE | 2025-04-10 13:29 | HO.PM.IMPN ---
Subjective Subjective Date of Service: 04/10/25 Interval History: Follow up Malignant effusion better today , still some sob on exertion Review of Systems sob improving but still sob with excersion ? itching with azithromycin feels anxious. Review of Systems: Yes all other systems are reviewed and are negative Physical Exam Vital Signs: Vital Signs: Last Vital Signs Temp 97.4 F 04/10/25 11:31 Pulse 103 H 04/10/25 11:31 Resp 18 04/10/25 11:31 BP 147/76 H 04/10/25 11:31 Pulse Ox 95 04/10/25 11:31 O2 Del Method Room Air 04/10/25 11:31 O2 Flow Rate 2 04/07/25 07:22 BMI result Body Mass Index 37.2 Appearing in no acute distress lung sounds are clear to auscultation heart regular rate rhythm, clear S1, S2 positive bowel sounds, abdomen is soft, nontender neuro patient is alert x3, no focal deficits Objective Data Active Medications Acetaminophen (Acetaminophen 325 Mg Tablet) 975 mg PO Q6H [facility] Last Admin: 04/10/25 07:39 Dose: 975 mg Documented By: JUVENTINO Amlodipine Besylate (Amlodipine Besylate 5 Mg Tablet) 5 mg PO BID [facility]; Protocol Last Admin: 04/10/25 07:40 Dose: 5 mg Documented By: JUVENTINO Aspirin (Aspirin Enteric Coated 81 Mg Tablet.Dr) 81 mg PO DAILY [facility] Last Admin: 04/04/25 08:49 Dose: Not Given Documented By: ALLIE Non-Admin Reason: md morales Atorvastatin Calcium (Atorvastatin Calcium 80 Mg Tablet) 80 mg PO DAILY [facility] Last Admin: 04/10/25 07:40 Dose: 80 mg Documented By: JUVENTINO Bisacodyl (Bisacodyl 10 Mg Supp.Rect) 10 mg [place] BEDTIME PRN PRN Reason: Constipation Calcium Carbonate (Calcium Carbonate 750 Mg Tab.Chew) 750 mg PO Q4H PRN PRN Reason: Heartburn Ceftriaxone Sodium (Ceftriaxone Sodium 1 Gm Vial) 1 gm IVPUSH Q24H [facility] Last Admin: 04/10/25 05:41 Dose: 1 gm Documented By: ED Clonidine HCl (Clonidine Hcl 0.1 Mg Tablet) 0.1 mg PO BEDTIME [facility]; Protocol Last Admin: 04/09/25 21:02 Dose: 0.1 mg Documented By: ED Clotrimazole (Clotrimazole 1 % Cream 15 Gm Tube) 1 appl TOPICAL BID PRN; Protocol PRN Reason: Fungal Infections Cyanocobalamin (Cyanocobalamin (Vitamin B-12) 1,000 Mcg Tablet) 1,000 mcg PO DAILY [facility] Last Admin: 04/10/25 07:40 Dose: 1,000 mcg Documented By: JUVENTINO Dextrose (Dextrose 50 % 25 Gm/50 Ml Syringe) 25 gm IVPUSH Q15M PRN; Protocol PRN Reason: per Hypoglycemia Standing Ord. Diphenhydramine HCl (Diphenhydramine Hcl 25 Mg Capsule) 25 mg PO Q6H PRN PRN Reason: itchiness Last Admin: 04/08/25 08:21 Dose: 25 mg Documented By: STEVE Doxycycline Monohydrate (Doxycycline Monohydrate 100 Mg Capsule) 100 mg PO Q12H [facility] Last Admin: 04/10/25 02:08 Dose: 100 mg Documented By: ED Enoxaparin Sodium (Enoxaparin Sodium 40 Mg/0.4 Ml Syringe) 40 mg SUBCUT Q24H [facility] Last Admin: 04/09/25 17:09 Dose: 40 mg Documented By: JUVENTINO Famotidine (Famotidine 20 Mg Tablet) 20 mg PO DAILY [facility] Last Admin: 04/10/25 07:40 Dose: 20 mg Documented By: JUVENTINO Ferrous Sulfate (Ferrous Sulfate 324 Mg Tablet.Dr) 324 mg PO FR@0900 [facility] Last Admin: 04/05/25 09:46 Dose: 324 mg Documented By: ALLIE Fluticasone Propionate (Fluticasone Propionate Nasal 16 Gm [place]) 1 spray NOSTRIL-B BEDTIME [facility] Last Admin: 04/09/25 21:03 Dose: 1 spray Documented By: ED Glucose (Glucose Gel 15 Gm Gel..Gram.) 15 gm PO Q15M PRN; Protocol PRN Reason: per Hypoglycemia Standing Ord. Guaifenesin (Guaifenesin 200 Mg/10 Ml 10 Ml Liquid) 10 ml PO Q4H PRN PRN Reason: Cough Last Admin: 04/07/25 08:07 Dose: 10 ml Documented By: SAULO Insulin Glargine (Insulin Glargine,Hum.Rec.Anlog 100 Unit/Ml 10 Ml Vial) 28 unit SUBCUT DAILY [facility] Last Admin: 04/10/25 07:38 Dose: 28 unit Documented By: JUVENTINO Insulin Human Lispro (Insulin Lispro 100 Unit/Ml 3 Ml Vial) 0 unit SUBCUT QIDACHS [facility]; Protocol Last Admin: 04/10/25 11:42 Dose: 8 unit Documented By: BRE-KLEALAINA Letrozole (Letrozole 2.5 Mg Tablet) 2.5 mg PO DAILY [facility] Last Admin: 04/10/25 07:40 Dose: 2.5 mg Documented By: JUVENTINO Levalbuterol HCl (Levalbuterol Hcl 1.25 Mg/3 Ml Vial.Neb) 1.25 mg INHALE RTID [facility] Last Admin: 04/10/25 08:24 Dose: 1.25 mg Documented By: RHYS Lorazepam (Lorazepam 1 Mg Tablet) 1 mg PO DAILY PRN PRN Reason: Anxiety Last Admin: 04/04/25 08:47 Dose: 1 mg Documented By: ALLIE Magnesium Hydroxide (Milk Of Magnesia 30 Ml Oral.Susp) 30 ml PO DAILY PRN PRN Reason: Constipation Melatonin (Melatonin 3 Mg Tablet) 6 mg PO BEDTIME PRN PRN Reason: Insomnia Ondansetron HCl (Ondansetron Hcl 4 Mg/2 Ml Vial) 4 mg IVPUSH Q8H PRN PRN Reason: Nausea and Vomiting Ondansetron HCl (Ondansetron Odt 4 Mg Tab.Rapdis) 4 mg TRANSLINGU Q8H PRN PRN Reason: Nausea And Vomiting Oxycodone HCl (Oxycodone Hcl Immed Release 5 Mg Tablet) 5 mg PO Q8H PRN PRN Reason: Breakthrough Pain, Moderate Last Admin: 04/10/25 12:08 Dose: 5 mg Documented By: JUVENTINO Paroxetine HCl (Paroxetine Hcl 30 Mg Tablet) 30 mg PO DAILY [facility] Last Admin: 04/10/25 07:39 Dose: 30 mg Documented By: JUVENTINO Polyethylene Glycol (Polyethylene Glycol 3350 17 Gm Powd.Pack) 17 gm PO DAILY [facility] Last Admin: 04/10/25 07:38 Dose: 17 gm Documented By: JUVENTINO Prednisone (Prednisone 20 Mg Tablet) 40 mg PO DAILY [facility] Last Admin: 04/10/25 07:39 Dose: 40 mg Documented By: JUVENTINO Ropinirole HCl (Ropinirole Hcl 1 Mg Tablet) 1 mg PO BID [facility] Last Admin: 04/10/25 07:39 Dose: 1 mg Documented By: JUVENTINO Senna (Sennosides 8.6 Mg Tablet) 17.2 mg PO BEDTIME [facility] Last Admin: 04/09/25 21:01 Dose: 17.2 mg Documented By: ED Senna (Sennosides 8.6 Mg Tablet) 8.6 mg PO BID PRN PRN Reason: Constipation Sodium Chloride (0.9 % Sodium Chloride Flush 3 Ml Syringe) 3 ml IVFLUSH QSHIFT [facility] Last Admin: 04/10/25 07:40 Dose: 3 ml Documented By: JUVENTINO Tolterodine Tartrate (Tolterodine Tartrate [place] 4 Mg Cap.Er.24h) 4 mg PO BEDTIME [facility] Last Admin: 04/09/25 21:02 Dose: 4 mg Documented By: ED Triamcinolone Acetonide (Triamcinolone Acet 0.1 % Cream 15 Gm Tube) 1 appl TOPICAL DAILY PRN; Protocol PRN Reason: Itchy/Dry Skin Vitamin D (Cholecalciferol (Vitamin D3) 25 Mcg Tablet) 50 mcg PO Q48H [facility] Last Admin: 04/09/25 13:23 Dose: 50 mcg Documented By: JUVENTINO Zinc Sulfate (Zinc Sulfate 220 Mg Capsule) 220 mg PO DAILY [facility] Last Admin: 04/10/25 07:38 Dose: 220 mg Documented By: JUVENTINO Labs 04/09/25 11:29 04/09/25 11:29 Labs: Laboratory Results - last 24 hr 04/09/25 04/09/25 04/10/25 16:08 20:51 07:12 POC Glucose 363 H* 324 H 202 H 04/10/25 11:26 POC Glucose 315 H Assessment and Plan (1) Hyperkalemia: Status: Acute (2) Acute hypoxic respiratory failure: Status: Acute Assessment and Plan: 65-year-old female with past medical history insulin-dependent diabetes mellitus type 2, COPD, anxiety, tobacco dependence for 40 years, hypertension, HER2 positive breast cancer with left breast mastectomy, urinary incontinence/ frequency with stimulator, obesity, PVD came into the emergency department with complaints of sudden onset dyspnea and closure of throat with a possible panic attack. Patient being admitted with the following medical problems Leukocytosis increased to 20.4 today no new infection monitor Acute hypoxic respiratory failure and pneumonia without evidence of sepsis oxygen nasal cannula, wean as tolerated CTA negative for PE, likely pneumonia bilaterally, maybe possibly from aspiration noting patient's report of dysphagia with cough hypoxia resolved still sob with minimal exertion Continue Rocephin and doxy for now incentive spirometry home o2 eval> no need for home o2 Pneumonia, b/l Malignant pleural effusion s/p chest tube Treated with 5 days of IV antibiotics blood cultures neg 48 hrs Pleural fluid cytology positive for malignant cells compatible with breast origin Patient to follow up with Oncology outpatient Mild COPD execerbation sob improving on nebs, steroids Dysphagia s/p barium swallow>No esophageal obstruction or narrowing seen. Tertiary peristalsis present in the distal esophagus. Transient holdup of barium tablet in the upper and lower esophagus which is subsequently clears with lots of water. GI>rec PPI Insulin-dependent diabetes with hyperglycemia ss, ada diet Constipation prn laxatives. Nicotine dependence patient counseled on the benefits of smoking cessation patient defers need for nicotine patch at this time DISPO PT rec home with services DVT prophylaxis: Lovenox. Full code Quality Stroke Does the patient have a stroke diagnosis?: No Reason for No Anti-thrombotic by Day Two: N/A - Med Ordered VTE Prior VTE?: No VTE Risk Level:: Medical - moderate - high VTE Device Contraindication: N/A - Device Ordered VTE Drug Contraindication: N/A - Med Ordered
--- NOTE | 2025-04-10 13:58 | PM.DS ---
DS: Providers Provider Date of Service: 04/10/25 Date of admission: 04/03/25 05:00 Date of discharge: 04/10/25 Primary care physician: Concepción Reyes MD Consults: 04/03/25 05:28 Consult to Gastroenterology Routine Consulting Provider: Ravindra Putnam Reason for consultation: dysphagia, ? esophagitis 04/03/25 07:25 Consult to Pulmonology Routine Consulting Provider[place] [facility] Reason for consultation: hypoxemic respiratory failure/pneumonia/pleural effusions 04/03/25 07:46 Consult to Nephrology Routine Consulting Provider: [facility] Reason for consultation: anion gap acidosis/hyperkalemia Has provider been notified: No 04/06/25 12:02 Consult to Psychiatry Routine Consulting Provider: [facility] Reason for consultation: anxiety Has provider been notified: No 04/08/25 15:36 Consult to Hematology / Oncology Routine Consulting Provider: [facility] Reason for consultation: maliganant pleural effusion Has provider been notified: No DS: Diagnosis Discharge Diagnosis (1) Hyperkalemia: Status: Acute (2) Acute hypoxic respiratory failure: Status: Acute DS: Summary Hospital Course Hospital Course: History and physical as per admitting provider. Patient is a 65-year-old female with past medical history insulin-dependent diabetes mellitus type 2, COPD, anxiety, tobacco dependence for 40 years, hypertension, HER2 positive breast cancer with left breast mastectomy, urinary incontinence/ frequency with stimulator, obesity, PVD was brought in by ambulance for an episode of severe sudden onset dyspnea secondary to drinking water with a significant cough productive with yellow sputum. Pt denies fever or chills. Patient felt she may have had an panic attack at the time. Patient denied any chest pain, nausea or vomiting. Patient states she does not use home O2. Patient also reports problems swallowing feeling like food and pills often times get stuck in the esophagus. Incidentally patient is scheduled for colonoscopy in 1 week but there is no plan for an upper scope. In the emergency department patient was started on levofloxacin, methylprednisolone, and magnesium. Patient originally on Oxymizer 6 L, now currently on room air satting 91% with bilateral adventitious lung sounds. Respiratory rate 22. Heart rate 108, sinus tach. Patient afebrile. Leukocytosis of 12.9. LA 2.4 then 2.2, attributed to patient's nebulizer treatments with EMS and in ED. BNP 21, troponin 3.4. Chest x-ray with small bilateral pleural effusions and bibasilar atelectasis and/or consolidation. CTA completed negative for PE, noted moderate bilateral pleural effusions subsegmental ateleectasis versus infiltrate. NArrowing of LSC artery, possible subclavian steal syndrome. Left axillary lymphadenopathy 2.5 cm. Incidentally patient recently started on Trulicity, having issues with constipation and low blood sugars at home. 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 No evidence of ileus or bowel obstruction. Patient admitted with evidence of hypoxia and treatment for pneumonia. Leukocytosis increased to 20.4 Likely secondary to steroids, no infectious process Acute hypoxic respiratory failure and pneumonia without evidence of sepsis oxygen nasal cannula, wean as tolerated CTA negative for PE, likely pneumonia bilaterally, maybe possibly from aspiration noting patient's report of dysphagia with cough hypoxia resolved still sob with minimal exertion Treated with Rocephin and doxycycline home o2 eval> no need for home o2 Pneumonia, b/l Malignant pleural effusion s/p chest tube Treated with 5 days of IV antibiotics blood cultures remained negative Pleural fluid cytology positive for malignant cells compatible with breast origin Patient to follow up with Oncology outpatient Mild COPD execerbation. Resolved sob improving Treated with nebs, steroids Dysphagia. Resolved s/p barium swallow>No esophageal obstruction or narrowing seen. Tertiary peristalsis present in the distal esophagus. Transient holdup of barium tablet in the upper and lower esophagus which is subsequently clears with lots of water. GI>rec PPI Insulin-dependent diabetes with hyperglycemia Treated with ss, ada diet Continue home medications Constipation prn laxatives. Nicotine dependence patient counseled on the benefits of smoking cessation Deferred nicotine patch Time Attestation Discharge Coordination Time (in mins): 40 Quality: Safe Use of Opioids Does Pt have an Active Cancer Diagnosis on the Problem List?: No Quality: Stroke Does the patient have a stroke diagnosis?: No Physical Exam Vital Signs: Vital Signs: Last Vital Signs Temp 97.4 F 04/10/25 11:31 Pulse 103 H 04/10/25 11:31 Resp 18 04/10/25 11:31 BP 147/76 H 04/10/25 11:31 Pulse Ox 95 04/10/25 11:31 O2 Del Method Room Air 04/10/25 11:31 O2 Flow Rate 2 04/07/25 07:22 BMI result Body Mass Index 37.2 Appearing in no acute distress head is normocephalic atraumatic eyes pupils are PERRLA sclera is anicteric mouth throat mucous membranes are intact and moist neck is supple no lymphadenopathy, no JVD noted lung sounds are clear to auscultation heart regular rate rhythm, clear S1, S2 positive bowel sounds, abdomen is soft, nontender neuro patient is alert x3, no focal deficits DS: Data Data Completed and Pending Completed studies during hospitalization [Text1]: Pending at discharge 04/03/25 13:51 Cytology [PTH] Routine Labs on day of discharge: Laboratory Results - last 24 hr 04/09/25 04/09/25 04/10/25 16:08 20:51 07:12 POC Glucose 363 H* 324 H 202 H 04/10/25 11:26 POC Glucose 315 H Discharge Plan Discharge Anticipated Discharge Date/Time: 04/10/25 13:50 Patient Disposition: Home Health Service Discharge Diagnosis: Malignant pleural effusion Malignant pleural effusion Leukocytosis Acute hypoxic respiratory failure Pneumonia Mild COPD exacerbation Dysphagia Referrals: Lesvia SOLIZ [Outside] - 3-5 Days (HOME SERVICES - A NURSE WILL CALL YOU TO SET UP FIRST VISIT) Noa Larose MD [Physician] - 1 Week (Follow up for an appointment for malignant effusion) Concepción Reyes MD [Primary Care Provider] - 1 Week Discharge Medications: Continued (DME) blood-glucose meter [FreeStyle Lite Meter] Kit See Rx Instructions .ROUTE .MEDSUPPLY Qty: 1 0RF Rx Instructions: As directed clonidine HCl 0.1 mg tablet 0.1 mg PO BEDTIME Qty: 90 11RF paroxetine HCl 20 mg tablet 20 mg PO DAILY 90 Days Qty: 90 5RF aspirin [Adult Aspirin Regimen] 81 mg tablet,delayed release (DR/EC) 81 mg PO DAILY 90 Days Qty: 90 11RF ropinirole 1 mg tablet 1 mg PO BID Qty: 180 8RF letrozole 2.5 mg Tablet 2.5 mg PO DAILY Qty: 90 12RF Anoro Ellipta 62.5-25 mcg/actuation blister with device 1 inh inhalation DAILY Qty: 60 12RF oxycodone-acetaminophen [Percocet] 5-325 mg tablet 1 tab PO Q8H PRN (Reason: Breakthrough Pain, Moderate) Qty: 50 0RF Rx Instructions: Partial Fill upon patient request. albuterol sulfate 2.5 mg /3 mL (0.083 %) solution for nebulization 2.5 mg inhalation Q4-6H PRN (Reason: for wheezing) Qty: 180 3RF (DME) baby wipes See Rx Instructions .Route .MEDSUPPLY Qty: 1 12RF Rx Instructions: As directed (DME) CHAIR LIFT See Rx Instructions .Route .MEDSUPPLY Qty: 1 0RF Rx Instructions: As directed (DME) Pull ups x-large See Rx Instructions .Route .MEDSUPPLY Qty: 240 11RF Rx Instructions: As directed (DME) lancets [FreeStyle Lancets] 28 gauge misc See Rx Instructions .ROUTE .COMPLEX Qty: 100 3RF Dose Instruction: USE DIRECTED THREE TIMES A DAY (BULK) Rx Instructions: USE DIRECTED THREE TIMES A DAY (BULK) amlodipine 5 mg tablet 5 mg PO BID 30 Days Qty: 60 1RF (DME) FreeStyle Lite Strips Strip See Rx Instructions .ROUTE .MEDSUPPLY Qty: 100 3RF Rx Instructions: check BS 3X/DAY cyanocobalamin (vitamin B-12) 1,000 mcg Tablet 1,000 mcg PO DAILY ferrous sulfate [Iron (ferrous sulfate)] 325 mg (65 mg iron) tablet 325 mg PO FR@0900 Rx Instructions: once a day for 1 week in a month zinc gluconate 50 mg tablet 50 mg PO DAILY Trulicity 0.75 mg/0.5 mL pen injector 0.75 mg subcut FR atorvastatin 80 mg tablet 80 mg PO DAILY sennosides [Senokot] 8.6 mg tablet 8.6 mg PO BID PRN (Reason: Constipation) triamcinolone acetonide 0.1 % cream 1 appl topical DAILY PRN (Reason: Itchy/Dry Skin) Rx Instructions: apply to affected area albuterol sulfate 90 mcg/actuation HFA aerosol inhaler 1 puff inhalation QID PRN (Reason: Shortness Of Breath Or Wheezing) ondansetron 4 mg tablet,disintegrating 4 mg PO Q8H PRN (Reason: Nausea And Vomiting) fluticasone propionate [Flonase Allergy Relief] 50 mcg/actuation spray,suspension 1 spray INTRANASAL BEDTIME Rx Instructions: administer into each nostril clotrimazole 1 % cream 1 appl topical BID PRN (Reason: Fungal Infections) insulin aspart U-100 [Novolog FlexPen U-100 Insulin] 100 unit/mL (3 mL) insulin pen 10 - 20 unit subcut TIDAC solifenacin [Vesicare] 5 mg tablet 5 mg PO BEDTIME cholecalciferol (vitamin D3) 50 mcg (2,000 unit) capsule 50 mcg PO Q48H acetaminophen 325 mg capsule 325 mg PO QID PRN (Reason: Pain) (DME) matectomy BRA See Rx Instructions .Route .MEDSUPPLY Qty: 2 0RF Rx Instructions: As directed (DME) compress.stocking,knee,reg,lrg Misc See Rx Instructions .Route Qty: 12 0RF Rx Instructions: As directed 20-30 mm HG (DME) Incontinence BED PADS WASHABLE See Rx Instructions .Route .MEDSUPPLY Qty: 2 12RF Rx Instructions: As directed insulin glargine [Lantus Solostar U-100 Insulin] 100 unit/mL (3 mL) insulin pen 28 unit subcut DAILY Qty: 15 7RF hydrochlorothiazide 12.5 mg tablet 12.5 mg PO DAILY Qty: 30 3RF (DME) pen needle, diabetic 32 gauge x 1/4 needle See Rx Instructions miscellaneous .MEDSUPPLY Qty: 100 5RF Rx Instructions: as directed with insulin Discharge Orders: Discharge Order (Routine); Ordered 04/10/25 Ordered By: Nkechi Hernandez Diet: Advance to usual diet Activity on Discharge: As tolerated Stand Alone Forms: Patient Portal Discharge page Print Language: Georgian Other Ambulatory Orders: Complete Blood Count no Diff (Routine) Timeframe: 2 Days Facility: [facility] - Location: Laboratory Ordered By: Nkechi Hernandez Care Plan Goals: If you feel short of breath with ambulation or at rest return to the ER Health Concerns: Malignant pleural effusion Leukocytosis Acute hypoxic respiratory failure Pneumonia Mild COPD exacerbation Dysphagia Plan of Treatment: Follow up with primary care provider as needed Take all medications as prescribed Assessment: See discharge summary Discharge Date/Time: 04/10/25 15:14
--- NOTE | 2025-04-10 14:30 | MHC.CM.PN ---
Addendum entered by Calli Perez 04/10/25 14:32: FINAL IMM DELIVERED Original Note: dDP: PT HAS BEEN MEDICALLY CLEARED FOR DC HOME WITH NEW [facility] FOR SN/P.T. [facility] UPDATED ON TODAY'S DC. FAMILY WILL TRANSPORT HOME
--- NOTE | 2025-04-10 15:01 | W.MHC.F2F ---
Service Date Service Date: 04/10/25 Encounter Date of encounter: 04/10/25 Reasons for Services Signs and symptoms assessed: Acute hypoxic respiratory failure Pneumonia Malignant pleural effusion Reason for chcf: CV/CP assess and/or care and other (lab work) Reason for physical therapy: home safety and mobility Homebound: Leaving the home is medically contraindicated at this time without the asist of a device and/or another person due th the listed conditions above and below. Reason homebound: unsteady gait / fall risk and weakness related to hospital stay Certification: Based on the above findings, I certify that this patient is confined to the home and needs intermittent chcf care, physical therapy and/or speech therapy, or continues to need occupational therapy. The patient is under my care, and I have initiated the establishment of the plan of care. The patient will be followed by a physician who will periodically review the plan of care. Time Spent With Patient Time: Total time managing care of this patient today ____ minutes.
== END 2025-04-10 15:14 | disposition home health service (06) | DRG 597 ==
LOC: HO.ED 04:56 → HO.EDOVER 05:11 → HO.S3 07:34
PROVIDERS: Internal Medicine; Nurse Practitioner Family; Pathology Cytopathology; Radiology Diagnostic Radiology; Admitting Provider Student in an Organized Health Care Education/Training Program; Emergency Provider Emergency Medicine; PCP Internal Medicine; Visit Provider Nurse Practitioner Acute Care
PROC: 0W9B30Z Drainage of Left Pleural Cavity with Drainage Device, Percutaneous Approach (ICD-10-PCS; CPT 32551; principal; 2025-04-04 09:00)
DX: C50.912 Malignant neoplasm of unspecified site of left female breast (principal); J69.0 Pneumonitis due to inhalation of food and vomit; J96.01 Acute respiratory failure with hypoxia; J44.1 Chronic obstructive pulmonary disease with (acute) exacerbation; E87.21 Acute metabolic acidosis; E87.3 Alkalosis; C77.3 Secondary and unspecified malignant neoplasm of axilla and upper limb lymph nodes; J91.0 Malignant pleural effusion; J98.11 Atelectasis; E11.9 Type 2 diabetes mellitus without complications; R13.10 Dysphagia, unspecified; K59.00 Constipation, unspecified; E87.5 Hyperkalemia; F41.9 Anxiety disorder, unspecified; Z20.822 Contact with and (suspected) exposure to COVID-19; Z17.31 Human epidermal growth factor receptor 2 positive status; Z17.0 Estrogen receptor positive status [ER+]; Z17.21 Progesterone receptor positive status; Z87.891 Personal history of nicotine dependence; Z90.12 Acquired absence of left breast and nipple; Z79.4 Long term (current) use of insulin; Z79.82 Long term (current) use of aspirin; Z79.85 Long-term (current) use of injectable non-insulin antidiabetic drugs; Z79.899 Other long term (current) drug therapy
CPT/HCPCS: 0241U; 32557; 36415; 36600; 71045; 71046; 71275; 74220; 80048; 80053; 82010; 82042; 82803; 82945; 82947; 83036; 83605; 83615; 83880; 83986; 84157; 84484; 85025; 85027; 87040; 87070; 87073; 87205; 88112; 88305; 88341; 88342; 88360; 88374; 88377; 89051; 92526; 92610; 93005; 93306; 94640; 97116; 97162; 99285; A7041; J0456; J0696; J1650; J1938; J1956; J2003; J2919; J3475; Q4186; Q9957; Q9967

== ENCOUNTER → 2025-04-03 00:25 | Outpatient (BNV) | payer OTHER, SELFPAY | PROVIDERS: Emergency Provider Emergency Medicine; Visit Provider Radiology Neuroradiology | DX: J90 Pleural effusion, not elsewhere classified (principal); I70.8 Atherosclerosis of other arteries; R59.0 Localized enlarged lymph nodes | CPT/HCPCS: 71045; 71275 ==

== ENCOUNTER → 2025-04-03 00:28 | Outpatient (BNV) | payer OTHER, SELFPAY | PROVIDERS: Admitting Provider Student in an Organized Health Care Education/Training Program; Emergency Provider Emergency Medicine; PCP Internal Medicine; Visit Provider Internal Medicine Cardiovascular Disease | DX: R00.0 Tachycardia, unspecified (principal) | CPT/HCPCS: 93010 ==

== ENCOUNTER 2025-04-03 05:00 | Outpatient (BNV) | payer OTHER, SELFPAY | END 2025-04-05 07:00 | PROVIDERS: Admitting Provider Student in an Organized Health Care Education/Training Program; Emergency Provider Emergency Medicine; PCP Internal Medicine; Visit Provider Radiology Diagnostic Radiology | DX: R13.10 Dysphagia, unspecified (principal); J90 Pleural effusion, not elsewhere classified; Z46.82 Encounter for fitting and adjustment of non-vascular catheter | CPT/HCPCS: 71045; 74220 ==

== ENCOUNTER 2025-04-03 05:00 | Outpatient (BNV) | payer OTHER, SELFPAY | END 2025-04-08 14:15 | PROVIDERS: Admitting Provider Student in an Organized Health Care Education/Training Program; Emergency Provider Emergency Medicine; PCP Internal Medicine; Visit Provider Radiology Diagnostic Radiology | DX: J90 Pleural effusion, not elsewhere classified (principal); R91.8 Other nonspecific abnormal finding of lung field | CPT/HCPCS: 71045 ==

== ENCOUNTER 2025-04-03 05:00 | Outpatient (BNV) | payer OTHER, SELFPAY | END 2025-04-04 09:49 | PROVIDERS: Admitting Provider Student in an Organized Health Care Education/Training Program; Emergency Provider Emergency Medicine; PCP Internal Medicine; Visit Provider Radiology Diagnostic Radiology | DX: J90 Pleural effusion, not elsewhere classified (principal); J98.4 Other disorders of lung | CPT/HCPCS: 32557; 71046 ==

== ENCOUNTER 2025-04-03 05:00 | Outpatient (BNV) | payer OTHER, SELFPAY | END 2025-04-08 07:00 | PROVIDERS: Admitting Provider Student in an Organized Health Care Education/Training Program; Emergency Provider Emergency Medicine; PCP Internal Medicine; Visit Provider Internal Medicine Cardiovascular Disease | DX: I42.8 Other cardiomyopathies (principal); E86.9 Volume depletion, unspecified | CPT/HCPCS: 93306 ==

== ENCOUNTER 2025-04-03 05:00 | Outpatient (BNV) | payer OTHER, SELFPAY | END 2025-04-10 09:05 | PROVIDERS: Admitting Provider Student in an Organized Health Care Education/Training Program; Emergency Provider Emergency Medicine; PCP Internal Medicine; Visit Provider Radiology Diagnostic Radiology | DX: J90 Pleural effusion, not elsewhere classified (principal) | CPT/HCPCS: 71045 ==

== ENCOUNTER → 2025-04-03 05:00 | Outpatient (BNV) | payer OTHER, SELFPAY | PROVIDERS: Admitting Provider Student in an Organized Health Care Education/Training Program; Emergency Provider Emergency Medicine; PCP Internal Medicine; Visit Provider Nurse Practitioner Family | DX: J96.01 Acute respiratory failure with hypoxia (principal) | CPT/HCPCS: 99223; 99499 ==

== ENCOUNTER → 2025-04-03 05:00 | Outpatient (BNV) | payer OTHER, SELFPAY | PROVIDERS: Admitting Provider Student in an Organized Health Care Education/Training Program; Emergency Provider Emergency Medicine; PCP Internal Medicine; Visit Provider Internal Medicine Medical Oncology | DX: C50.912 Malignant neoplasm of unspecified site of left female breast (principal); J91.0 Malignant pleural effusion | CPT/HCPCS: 99222 ==

== ENCOUNTER → 2025-04-03 05:00 | Outpatient (BNV) | payer OTHER, SELFPAY | PROVIDERS: Admitting Provider Student in an Organized Health Care Education/Training Program; Emergency Provider Emergency Medicine; PCP Internal Medicine; Visit Provider Nurse Practitioner Family | DX: E87.3 Alkalosis (principal); E87.5 Hyperkalemia; E87.20 Acidosis, unspecified | CPT/HCPCS: 99222 ==

== ENCOUNTER → 2025-04-03 05:00 | Outpatient (BNV) | payer OTHER, SELFPAY | PROVIDERS: Admitting Provider Student in an Organized Health Care Education/Training Program; Emergency Provider Emergency Medicine; PCP Internal Medicine; Visit Provider Internal Medicine Pulmonary Disease | DX: J90 Pleural effusion, not elsewhere classified (principal); J44.9 Chronic obstructive pulmonary disease, unspecified | CPT/HCPCS: 99223 ==

== ENCOUNTER → 2025-04-03 05:00 | Outpatient (BNV) | payer OTHER, SELFPAY | PROVIDERS: Admitting Provider Student in an Organized Health Care Education/Training Program; Emergency Provider Emergency Medicine; PCP Internal Medicine; Visit Provider Psychiatry & Neurology Psychiatry | DX: F41.1 Generalized anxiety disorder (principal) | CPT/HCPCS: 99232 ==

== ENCOUNTER 2025-04-18 12:37 | Outpatient (AMB) | payer OTHER, SELFPAY ==
--- OUTSIDE RECORDS SUMMARY | 2025-04-18 12:40 | XMS_ITS | Patient Health Record ---
Author Organization [facility] Address [address] [place] [address] Care Team Providers Care Brooch Maker Novelty Name Role Phone Po Concepción MADDEN Primary Care Provider Ravindra Arora [phone] Allergies Allergen (clinical drug ingredient) Drug/Non Drug [...] Status Risk Notes Problem Colon cancer screening (646670822) Colon cancer screening (Z12.11) Active confirmed Problem Gastroesophageal reflux disease (disorder) (352404540) Chronic GERD (K21.9) Active confirmed Vital Signs Blood pressure diastolic 00 mm Hg 12/21/2024 Height 5 ft 4 in in 12/21/2024 Blood pressure systolic 00 mm Hg 12/21/2024 Weight 223 lbs 12/21/2024 BMI 38.27 kg/m2 12/21/2024 Encounters Encounter Location Date Provider Diagnosis [facility] [address] [place] [phone] 12/21/2024 Ravindra Putnam Colon cancer screening Z12.11 and Chronic GERD K21.9 [facility] [address] [place] [phone] 12/24/2024 Ravindra Putnam [facility] [address] [place] [phone] 04/03/2025 Ravindra Putnam Assessments Encounter Date Diagnosis (ICD [...] She was instructed to speak with her puppy trainer regarding instructions in regard to adjusting her [...] She was instructed to speak with her puppy trainer regarding instructions in regard to adjusting her [...] Test Test Name Order Date COLONOSCOPY 12/21/2024 Insurance Providers Payer Name Payer Address Payer Phone Subscriber Number Group Number Insured Name Patient Relationship to Insured Coverage Start Date Coverage End Date [facility] [address] Attn Claims [facility] [id number] [id number] THAO [place] Self - patient is the insured Medical (General) History Medical History History ICD Code Thyroid nodule IDDM Peripheral vascular disease Urinary incontinence COPD Anxiety disorder Hypertension Renal calculi TIA Left breast cancer 03/2021 with chemo and surgery-Dr. Mitchell Reports a negative colonscopy in approx 2004 Denies NH,CVA,renal disease Neuropathy GERD Hyperlipidemia Surgical History Surgery Date(Month/Year) Mastectomy of left breast 2022-Dr. Roxann andersen Endometrial ablation Tubal ligation Tonsillectomy Appendectomy Cholecystectomy Bladder surgery Left knee replacement 2006
--- NOTE | 2025-04-18 12:50 | A.OFFPC_ITS ---
Vital Signs 04/18/25 12:51 Height 5 ft 4 in Weight 214 lb 8.156 oz BMI 36.8 BP 100/82 Blood Pressure Location Lt brachial Position Sitting Pulse 103 H Pulse Source Pulse Oximeter Pulse Oximetry (%) 95 Oxygen Delivery Method Room Air Intake Visit Reasons: [facility] 04/10 bilat pleural effusion Bone Char Puller Required: No Accompanied by: Self / Same As Patient Allergies diclofenac [From Voltaren] Allergy (Severe, Verified 04/22/25 22:50) enlarged liver lisinopril [From Zestril] Allergy (Severe, Verified 04/22/25 22:50) Angioedema losartan Allergy (Severe, Verified 04/22/25 22:50) Angioedema omeprazole Allergy (Intermediate, Verified 04/22/25 22:50) elevated blood pressure Penicillins [PENICILLINS] Allergy (Intermediate, Verified 04/22/25 22:50) Facial Swelling oxybutynin [Oxybutynin] Adverse Reaction (Severe, Verified 04/22/25 22:50) body twitching gabapentin Adverse Reaction (Intermediate, Verified 04/22/25 22:50) Hypertension metformin Adverse Reaction (Intermediate, Verified 04/22/25 22:50) Diarrhea duloxetine Adverse Reaction (Intermediate, Uncoded 04/22/25 22:50) tachycardia Medication List - Last Reconciled 04/18/25 by JESSICA Carrillo acetaminophen 325 mg PO QID PRN albuterol sulfate 90 mcg/actuation 1 puff inhalation QID PRN albuterol sulfate 2.5 mg (3 mL) inhalation Q4-6H PRN amlodipine 5 mg PO BID 30 days aspirin (Adult Aspirin Regimen) 81 mg PO DAILY 90 days atorvastatin 80 mg PO DAILY [baby wipes As directed] blood sugar diagnostic (FreeStyle Lite Strips) check BS 3X/DAY blood-glucose meter (FreeStyle Lite Meter kit) As directed [CHAIR LIFT As directed] cholecalciferol (vitamin D3) 50 mcg PO Q48H clonidine HCl 0.1 mg PO BEDTIME clotrimazole 1% 1 appl topical BID PRN compress.stocking,knee,reg,lrg As directed 20-30 mm HG cyanocobalamin (vitamin B-12) 1,000 mcg PO DAILY dulaglutide (Trulicity) 0.75 mg subcut FR ferrous sulfate (Iron (ferrous sulfate)) 325 mg PO FR@0900 fluticasone propionate 50 mcg/actuation (Flonase Allergy Relief) 1 spray intranasal BEDTIME hydrochlorothiazide 12.5 mg PO DAILY [Incontinence BED PADS WASHABLE As directed] insulin aspart U-100 (Novolog FlexPen U-100 Insulin aspart) 10 - 20 units subcut TIDAC insulin glargine (Lantus Solostar U-100 Insulin) 28 units (0.28 mL) subcut DAILY lancets (FreeStyle Lancets) USE DIRECTED THREE TIMES A DAY (BULK) letrozole 2.5 mg PO DAILY [matectomy BRA As directed] ondansetron 4 mg PO Q8H PRN oxycodone-acetaminophen 5-325 mg (Percocet) 1 tab PO Q8H PRN paroxetine HCl 20 mg PO DAILY 90 days pen needle, diabetic as directed with insulin [Pull ups As directed] ropinirole 1 mg PO BID sennosides (Senokot) 8.6 mg PO BID PRN solifenacin (Vesicare) 5 mg PO BEDTIME triamcinolone acetonide 0.1% 1 appl topical DAILY PRN umeclidinium-vilanterol 62.5-25 mcg/actuation (Anoro Ellipta) 1 inh inhalation DAILY zinc gluconate 50 mg PO DAILY Tobacco use date assessed: 04/18/25 Fall risk assessment: No Falls in past year Last assessed Fall Risk: 04/18/25 Dental Screening Dental Screen Date: 04/18/25 Did you have a dental visit in the last 12 months?: No Did you have a dental problem in the last 6 months where you did not have access to dental care?: No Was dental information given to patient?: No HPI [facility] 04/10 bilat pleural effusion HPI Details She has chest pain wiht deep breathing, right lower lungs diminished. Left upper back suture removed, no s/sx of infection. 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 Patient was found to have bilateral pneumonia, malignant pleural effusion status post chest tubes. The patient was treated with 5 day IV antibiotics-culture remains negative Mild COPD exacerbation. Resolved shortness of breaths improving-treated with nebs and steroids Dysphagia. Resolved Status post barium swallow no esophageal obstruction or narrowing seen. Tertiary peristalsis present in the distal esophagus transient holdup of barium tablet in the upper and lower esophagus which is subsequently cleared with lots of water. GI recommends PPI Patient was DC home with home health services In office today the patient is reporting ongoing SOB and chest pain with deep breaths She reports rash on left lateral ankle and shoulder She reports high blood sugar levels when not using Trulicity Neuropathy affecting ability to administer medications and anxiety requiring paroxetine Left upper back fluid drain site with 1 suture intact; this was removed, no signs or symptoms of infection Patient questioned the need to be on oxygen. Reports that when she was in the hospital she was on oxygen. Per hospital note the patient does not requires home oxygen. The patient also reports upcoming appointment with her workers compensation specialist. Explained to the patient that I will defer this decision to her workers compensation specialist's. TCM TCM Information Date of Discharge 04/10/25 Discharged From [facility] Interactive Contact Date (Reference documentation from this date) 04/11/25 [facility] Medical History Generalized anxiety disorder TIA (transient ischemic attack) (~12/2024) Recent bereavement Environmental and seasonal allergies HLD (hyperlipidemia) Multinodular goiter Peripheral neuropathy History of short term memory loss Port-A-Cath in place Smoker Family history of prostate cancer in father Leg swelling Shortness of breath Effusion of left knee Weakness Fall Thyroid nodule Adrenal adenoma Vision changes Diabetes History of palpitations History of unsteady gait Low back pain Arthritis Mild heartburn Hx of renal calculi Vaginal yeast infection Encounter to discuss test results 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 Cervical cancer screening Type 2 diabetes mellitus with hyperglycemia History of anal fissures Peripheral vascular disease Urinary incontinence Hypertension COPD (chronic obstructive pulmonary disease) Hypercholesterolemia Surgical History Hx of colonoscopy H/O total mastectomy of left breast (12/21/22) History of biopsy History of endometrial ablation Hx of tubal ligation History of tonsillectomy History of appendectomy History of cholecystectomy History of bladder surgery History of left knee replacement Family History Mother History of breast cancer Father Prostate CA Brother No problems noted. Brother No problems noted. Daughter No problems noted. Social History Household Members: Family Household Members Other:: adult daughter [facility]: [facility] Are you a primary critical care physician to a significant other at home: No Do you presently have visiting nurse or other home services: Yes (MARTÍENZ) 75 years or older and lives alone: No Alcohol intake: current Alcohol intake frequency: holidays/special occasions only Comment: Fell 08/2022, leg weakness 1 glass on holidays Patient Tobacco Use Status: Current everyday Tobacco user Tobacco use type: Cigarette Cigarette Packs Per Day: 1 Years Smoked: 40, 1 pack a day e-Cigarette/Vaping Use: Former Use Second Hand Smoke Exposure: No service: No Current occupational status: disabled Cognitive needs: No Hearing needs: No Vision needs: Yes Female Reproductive History Menstrual Age of Menarche: 10 Questionnaire PHQ-9 Over the last 2 weeks, how often have you been bothered by any of the following problems? 1. Little interest or pleasure in doing things: not at all 2. Feeling down, depressed, or hopeless: nearly every day 3. Trouble falling or staying asleep, or sleeping too much: nearly every day 4. Feeling tired or having little energy: nearly every day 5. Poor appetite or overeating: more than half the days 6. Feeling bad about yourself - or that you are a failure or have let yourself or your family down: nearly every day 7. Trouble concentrating on things, such as reading the newspaper or watching television: nearly every day 8. Moving or speaking so slowly that other people could have noticed. Or the opposite - being so fidgety or restless that you have been moving around a lot more than usual: not at all 9. Thoughts that you would be better off or of hurting yourself in some way: not at all Total score: 17 Depression Screening Interpretation: Positive Depression Screening Done: Yes Source: Developed by Gonzalez Olveraet B.W. Kee, García Barnard and colleagues, with an educational hayde from [employer]. Thrive Questionnaire Date Thrive assessed: 04/18/25 I am a: Patient What is your living situation today?: I have a steady place to live Within the past 12 months, did the food you bought not last and you didn't have the money to get more?: Never true Within the past 12 months, did you worry whether your food would run out before you got money to buy more?: Never true Do you have trouble paying for medicines?: No Do you have trouble getting transportation to medical appointments?: No Do you have trouble paying your heating and electricity bill?: No Do you have trouble taking care of your child, family member or friend?: No Do you have trouble with day-to-day activities such as bathing, preparing meals, shopping, managing finances, etc.?: No Are you currently unemployed and looking for a job?: No Are you interested in more education?: No Please select the resources that you would like help with: None Currently or been in a relationship where the following occur: No concerns reported THRIVE Score: 0 AUDIT C Alcohol Use Questionnaire (AUDIT-C) 1. How often do you have a drink containing alcohol?: Monthly or less 2. How many drinks containing alcohol do you have on a typical day when you are drinking?: 1 or 2 3. How often do you have six or more drinks on one occasion?: Never Total Score: 1 PARMJIT-7 AMB Questionnaire PARMJIT-7 Date PARMJIT - 7 assessed: 04/18/25 Feeling nervous, anxious, or on edge: 0 = Not at all Not being able to stop or control worryin = Not at all Worrying too much about different things: 0 = Not at all Trouble relaxin = Not at all Being so restless that it is hard to sit still: 0 = Not at all Becoming easily annoyed or irritable: 0 = Not at all Feeling afraid as if something awful might happen: 0 = Not at all Total PARMJIT-7 score (0-4 normal; 5-9 mild; 10-14 moderate; 15-21 severe): 0 Source: Developed by Jena Olvera Kurt Kroenke and colleagues, with an educational hayde from [employer]. Review of Systems Const Denies headache(s) Eyes Denies loss of vision ENT Denies vertigo, Denies dizziness and Denies headache(s) Card Reports chest pain (With deep breaths), Denies leg edema, Denies lightheadedness and Reports dyspnea on exertion Resp Denies cough, Denies hemoptysis, Reports dyspnea on exertion and Denies wheezing GI Denies abdominal pain, Denies melena, Denies constipation, Reports heartburn (Intermittent), Denies diarrhea and Denies vomiting Denies urinary frequency, Denies dysuria and Denies urinary urgency Neuro Denies Abnormal speech present, Denies vertigo, Denies dizziness, Denies headache(s) and Denies loss of vision Psych Denies anxiety and Reports depression Rich/Lymph Denies easy bleeding and Denies easy bruising Aller/Immun Denies wheezing Physical exam (Primary Care) Vital Signs: Last Vital Signs Pulse 103 H 04/18/25 12:51 BP 100/82 04/18/25 12:51 Pulse Ox 95 04/18/25 12:51 Oxygen Delivery Method Room Air 04/18/25 12:51 BMI result Body Mass Index 36.8 Tobacco/Smoking Status: Tobacco use Status Tobacco use date assessed 04/18/25 04/18/25 12:58 Patient Tobacco Use Status Former Tobacco user 04/18/25 12:58 Tobacco use type Cigarette 04/18/25 12:58 e-Cigarette/Vaping Use Former Use 04/18/25 12:58 PHQ-9: PHQ-9 Score PHQ-9: Total score 17 04/18/25 13:32 Depression Screening Interpretation: Positive Thrive Assessment: Date of Thrive Assessment Date Thrive assessed 04/18/25 04/18/25 12:58 Currently or been in a relationship where the following occur: No concerns reported Const General: healthy appearing, no acute distress, alert and awake Nutritional Appearance: well nourished Orientation/consciousness: oriented to person, oriented to place and oriented to time HENMT Ears: external ears normal General nose exam: Normal external nose present Eyes Conjunctivae: conjunctivae normal Sclerae: sclerae normal Pupils: Equal, round and reactive pupils present Neck Thyroid: Thyroid normal Carotids: no bruits Resp Effort & Inspection: normal respiratory effort and not tachypneic Auscultation: no crackles, no rales, no rhonchi and no wheezes Cardio Rate: regular rate Rhythm: regular rhythm Heart sounds: no murmurs and normal S1 and S2 GI Palpation (GI): Soft to palpation, nontender, no hepatomegaly and no splenomegaly Auscultation: normal bowel sounds Skin General skin exam: dry skin Rashes: rashes noted (On bilateral ankles) Neuro General: oriented to person, oriented to place and oriented to time Cranial nerves: Yes Equal, round and reactive pupils present Speech: No Abnormal speech present Gait exam (Neuro): Normal gait present Motor exam (neuro): no tremor noted Extrem Right upper extremity: full ROM Left upper extremity: full ROM Right lower extremity: full ROM; no edema Left lower extremity: full ROM; no edema Psych Mental Status: mental status grossly normal Speech and movement: Normal speech and movement present Affect: normal affect Attitude: cooperative Thought process: Normal thought process present Coding Level of Care Code TCM High MDM <= 14 days Diagnoses Malignant pleural effusion J91.0 Aspiration pneumonia of both lungs, unspecified aspiration pneumonia type, unspecified part of lung J69.0 Pneumonia type: aspiration pneumonia Aspiration pneumonia type: unspecified Lung location: unspecified part of lung Dysphagia, unspecified type R13.10 Dysphagia type: unspecified COPD exacerbation J44.1 Maculopapular rash, localized R21 Time Spent (min) 39 Assessment & Plan Assessment & Plan (1) Malignant pleural effusion: Code(s): J91.0 - Malignant pleural effusion Category: Medical Plan: Status post chest tube, treated with 5 days of IV antibiotics-cultures remain negative (2) Bilateral pneumonia: Code(s): J18.9 - Pneumonia, unspecified organism Category: Medical Qualifiers: Pneumonia type: aspiration pneumonia Aspiration pneumonia type: unspecified Lung location: unspecified part of lung Qualified Code(s): J69.0 - Pneumonitis due to inhalation of food and vomit Plan: Patient was treated with Rocephin and doxycycline with positive effect (3) Dysphagia: Code(s): R13.10 - Dysphagia, unspecified Category: Medical Qualifiers: Dysphagia type: unspecified Qualified Code(s): R13.10 - Dysphagia, unspecified Plan: Status post barium swallow-no esophageal obstruction or narrowing seen. Tertiary peristalsis present in the distal esophagus. Transient holdup of barium tablet in the upper and lower esophagus which is subsequently clear with lots of water. GI recommends PPI (4) COPD exacerbation: Code(s): J44.1 - Chronic obstructive pulmonary disease with (acute) exacerbation Category: Medical Plan: Patient it mild exacerbation that improved with nebs and steroids. Patient questioned oxygen use, reports that she had this while she was in the hospital. Per hospital discharge, no home O2 need it. The patient also has an upcoming appointment with her workers compensation specialist and she was encouraged to keep that appointment and they will make the determination of supplemental oxygen. Cont inue albuterol sulfate 90 mcg/actuation 1 puff inhalation QID PRN, alternatively albuterol sulfate 2.5 mg via neb Q 4-6 p.r.n., umeclidinium-vialanterol 62.5-25 mcg/actuation 1 inhalation daily (5) Maculopapular rash, localized: Code(s): R21 - Rash and other nonspecific skin eruption Category: Medical Plan: Bilateral ankles-continue triamcinolone acetonide 0.1% 1 appl topical daily p.r.n. Medications: New albuterol sulfate 90 mcg/actuation 1 puff inhalation QID PRN 8.5 grams 3RF Shortness Of Breath Or Wheezing fluticasone propionate 50 mcg/actuation (Flonase Allergy Relief) administer into each nostril 1 spray intranasal BEDTIME 16 grams 3RF
[2025-04-18 12:51] VITALS: BP 100/82; PULSE 103; O2SAT 95; BMI 36.8
== END 2025-04-18 13:51 | disposition home or self-care (01) ==
LOC: HO.HMCH 12:38
PROVIDERS: PCP Internal Medicine
DX: J90 Pleural effusion, not elsewhere classified (principal); J69.0 Pneumonitis due to inhalation of food and vomit; R13.10 Dysphagia, unspecified; J44.1 Chronic obstructive pulmonary disease with (acute) exacerbation; R21 Rash and other nonspecific skin eruption

== ENCOUNTER → 2025-04-18 12:37 | Outpatient (BNVA) | payer OTHER, SELFPAY | PROVIDERS: PCP Internal Medicine | DX: E11.65 Type 2 diabetes mellitus with hyperglycemia (principal); Z79.4 Long term (current) use of insulin; J91.0 Malignant pleural effusion; J69.0 Pneumonitis due to inhalation of food and vomit; R13.10 Dysphagia, unspecified; J44.1 Chronic obstructive pulmonary disease with (acute) exacerbation; R21 Rash and other nonspecific skin eruption | CPT/HCPCS: 99211; 99495 ==

== ENCOUNTER 2025-04-18 13:58 | Outpatient (AMB) | payer OTHER, SELFPAY ==
--- NOTE | 2025-04-18 14:24 | A.OFFVIS_ITS ---
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 Required: No Accompanied by: Daughter Allergies diclofenac [From Voltaren] Allergy (Severe, Verified 04/18/25 13:13) enlarged liver lisinopril [From Zestril] Allergy (Severe, Verified 04/18/25 13:13) Angioedema losartan Allergy (Severe, Verified 04/18/25 13:13) Angioedema omeprazole Allergy (Intermediate, Verified 04/18/25 13:13) elevated blood pressure Penicillins [PENICILLINS] Allergy (Intermediate, Verified 04/18/25 13:13) Facial Swelling oxybutynin [Oxybutynin] Adverse Reaction (Severe, Verified 04/18/25 13:13) body twitching gabapentin Adverse Reaction (Intermediate, Verified 04/18/25 13:13) Hypertension metformin Adverse Reaction (Intermediate, Verified 04/18/25 13:13) Diarrhea duloxetine Adverse Reaction (Intermediate, Uncoded 04/18/25 13:13) tachycardia HPI Comprehensive Diabetes Asmnt Most Recent Diabetes Results: No Data to Display [facility] Medical History (Updated 04/18/25 @ 00:02 by Gricel Santamaria) Generalized anxiety disorder TIA (transient ischemic attack) (~12/2024) Recent bereavement Environmental and seasonal allergies HLD (hyperlipidemia) Multinodular goiter Peripheral neuropathy History of short term memory loss Port-A-Cath in place Smoker Family history of prostate cancer in father Leg swelling Shortness of breath Effusion of left knee Weakness Fall Thyroid nodule Adrenal adenoma Vision changes Diabetes History of palpitations History of unsteady gait Low back pain Arthritis Mild heartburn Hx of renal calculi Vaginal yeast infection Encounter to discuss test results 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 Cervical cancer screening Type 2 diabetes mellitus with hyperglycemia History of anal fissures Peripheral vascular disease Urinary incontinence Hypertension COPD (chronic obstructive pulmonary disease) Hypercholesterolemia Surgical History Hx of colonoscopy H/O total mastectomy of left breast (12/21/22) History of biopsy History of endometrial ablation Hx of tubal ligation History of tonsillectomy History of appendectomy History of cholecystectomy History of bladder surgery History of left knee replacement Family History Mother History of breast cancer Father Prostate CA Brother No problems noted. Brother No problems noted. Daughter No problems noted. Social History Household Members: Children Household Members Other:: adult daughter Housing: Condominium Are you a primary director of career resources to a significant other at home: No Do you presently have visiting nurse or other home services: No (daughter cares for her) 75 years or older and lives alone: No Alcohol intake: current Alcohol intake frequency: holidays/special occasions only Comment: Fell 08/2022, leg weakness 1 glass on holidays Patient Tobacco Use Status: Former Tobacco user Tobacco use type: Cigarette Cigarette Packs Per Day: 1 Years Smoked: 40, 1 pack a day e-Cigarette/Vaping Use: Former Use Second Hand Smoke Exposure: No service: No Current occupational status: disabled Cognitive needs: No Hearing needs: No Vision needs: Yes Female Reproductive History Menstrual Age of Menarche: 10 Assessment & Plan Assessment & Plan (1) Type 2 diabetes mellitus with hyperglycemia: Code(s): E11.65 - Type 2 diabetes mellitus with hyperglycemia Qualifiers: Diabetes mellitus terminologist insulin use: with terminologist use Qualified Code(s): E11.65 - Type 2 diabetes mellitus with hyperglycemia; Z79.4 - nursing home (current) use of insulin Plan: CGM Info Instructed Pt on what CGM can and can't do CGM Can: Give Pt minute by minute reading of glucose levels Displays glucose trend arrows that represents the direction glucose levels are fluctuating Give insight on decisions about how to dose insulin CGM cannot: Improve glucose control on its own Completely eliminate the need for all finger sticks Make dosing decision for you CGM is the reading of glucose in the interstitial fluid not actual blood glucose, finger sticks are still necessary when Pt's symptom?s do not match sensor reading and if sensors prompts Pt to do a fingerstick Patient? is interested in the transitioning from Vinnie 2 sensor to Vinnie 3+ sens ors At today's visit demonstrated to patient and her daughter how to prepare an insert Vinnie 3+ sensors Message sent to [facility] to contact reliable Diabetes regarding changing sensor type Reviewed delay of CGM from fingersticks Reminded pt that if symptoms do not match sensor still needs to check fingersticks. Portions of this note were created using voice recognition software, please ex cuse any words or phrases that may have been misinterpreted. Patient Instructions: Patient instruction: CGM provides information on blood glucose control throughout the day, including hyperglycemia and hypoglycemia. ? Continue to monitor blood glucose as instructed. Follow nutrition guidelines provided. Rep ort any discomfort promptly to health care provider. ?Stay well-hydrated. You can bathe ,shower, swim and exerce while wearing the glucose sensor. Do not submerge glucose sensor in water for more than 30 minutes. Remove sensor for MRI or CAT scan. Avoid Xray machine in airports - remove sensor or request wand Coding Level of Care Code Est Pt Level 1 (05610) Diagnoses Type 2 diabetes mellitus with hyperglycemia, with long-term current use of insulin E11.65; Z79.4 Diabetes mellitus chcf insulin use: with terminologist use
== END 2025-04-18 14:28 | disposition home or self-care (01) ==
LOC: HO.ENCR 13:58
PROVIDERS: PCP Internal Medicine; Visit Provider Registered Nurse Diabetes Educator
DX: E11.65 Type 2 diabetes mellitus with hyperglycemia (principal); Z79.4 Long term (current) use of insulin

== ENCOUNTER 2025-04-21 23:41 | Inpatient (IN) | payer OTHER, SELFPAY ==
--- NOTE | ~2025-04-21 | XR_ITS ---
CLINICAL HISTORY: shortness of breath 1 view chest x-ray Comparison: Chest x-ray from 04/10/2025 Findings: Small bilateral pleural effusions, right worse than left; with interim worsening relative to comparison. Worsening bibasilar atelectasis/consolidation, right worse than left. Interstitial opacities are nonspecific and may reflect recurrent edema or persistent pneumonitis. No pneumothorax in this portable image. Right-sided chest port is redemonstrated. Mediastinum is partly obscured. Degenerative changes are redemonstrated imaged shoulders AC joints with old/chronic appearing fragments of the right shoulder. IMPRESSION: 1. Interstitial opacities are nonspecific and may reflect pulmonary edema. 2. Mild worsening of the bilateral pleural effusions, right worse than left. This document has been electronically signed by: Scotty Drew MD on 04/22/2025 00:37:31
--- NOTE | ~2025-04-21 | CT_ITS ---
EXAMINATION: CT ANGIOGRAM CHEST CLINICAL INFORMATION: Hypoxia COMPARISON: April 03, 2025 TECHNIQUE: Multiple axial images were obtained through the chest after the administration of 65 mL of Omnipaque 350 intravenous contrast. Extensive vascular post-processing including two-dimensional and three-dimensional reformatted images were created and reviewed on an independent workstation. This CT examination was performed using dose optimization techniques as appropriate, variously including the following: *Automated exposure control *Adjustment of mA and/or kV according to patient size (this includes techniques or standardized protocols for targeted exams where dose is matched to indication/reason for exam; i.e. extremities or head) *Use of iterative reconstruction technique DLP: 143 mGY*cm FINDINGS: Left mastectomy has been performed. There is poor contrast opacification of some secondary and most tertiary divisions of the pulmonary artery. There is no central filling defect. Moderate left greater than right pleural effusions are decreased since the prior. There is compressive atelectasis in the left lung base. Again noted is soft plaque or other filling defect at the origin of the left subclavian artery. Multifocal mural thrombus and calcified plaque is seen in the thoracic aorta. There are increasing multifocal groundglass densities in the anterior right upper lobe, right middle lobe, and posterior right lower lobe, as well as the anterior left upper lobe and lingula The heart size is within normal limits. Enlarged left axillary lymph nodes measure up to 16 mm short axis No gross abnormality is evident in the upper abdomen. Small intraosseous fractures are evident throughout the thoracic spine. Severe degenerative change with vacuum phenomenon is noted in the left shoulder joint CT/CT angio chest PE protocol IMPRESSION: No central or proximal segmental pulmonary arteries filling defect is evident. Patchy groundglass opacities in both lungs could represent pneumonia. Low attenuating filling defect at the origin of the left subclavian artery is again noted and could be hemodynamically significant. Moderate bilateral pleural effusions and compressive atelectasis slightly improved. Left axillary adenopathy is again noted. Fleischner guidelines were followed. Electronically signed by: William Garcia MD 04/24/2025 01:20 PM EDT
--- NOTE | ~2025-04-21 | US_ITS ---
EXAMINATION: ULTRASOUND-GUIDED right chest tube insertion and thoracentesis. CLINICAL INFORMATION: Moderate right pleural effusion. COMPARISON: Chest x-ray 04/22/2025 at 12:00 AM TECHNIQUE: Following explaining ultrasound-guided thoracentesis with chest tube insertion procedure, benefits and risk, a written consent was obtained from the patient. Patient was placed upright and preliminary ultrasound was obtained through the posterior chest. An optimal site was selected along the inferior scapular line and skin marker placed approximately 10th/11th interspace. The marked site was cleaned and draped in usual sterile manner with 2% chlorhexidine solution. 1% lidocaine was administered puncture site. A 5 Czech Yueh catheter was advanced from the skin into the pleural space. After observing fluid return, stylet was withdrawn and catheter connected to vacuum bottle. Patient immediately had right shoulder and right anterior chest pain following draining 1000 mL of fluid. Decision was made to pulled chest insertion. Through the 5 Czech Yueh catheter is 0.035 J-wire was introduced and catheter removal. Over the guidewire a 5 Czech pigtail catheter with stiffener was introduced. The stiffener was lucent as soon as the pigtail formation enteric the chest wall. The pigtail was then advanced over the stiffener. The guidewire and the stiffener were removed. The catheter was anchored to the skin with StatLock followed by tape. The catheter was then connected to wall suction via connecting cannula. Patient's symptoms significantly improved. No conscious sedation was utilized. FINDINGS: Approximately 1200 mL of clear light yellowish fluid was drained initially. Subsequently a 5 Czech APD catheter was left at the right lung base connected to wall suction. There are no immediate complications. US/US drain thoracentesis w image IMPRESSION: Successful ultrasound-guided right thoracentesis with right chest tube insertion. Electronically signed by: Valentin Hernandez MD 04/22/2025 12:47 PM EDT
--- NOTE | ~2025-04-21 | XR_ITS ---
EXAMINATION: XR CHEST CLINICAL INFORMATION: post right thora and chest tube insertion. COMPARISON: 04/22/2025. TECHNIQUE: Frontal view of the chest was obtained. FINDINGS: A right basilar pigtail catheter is likely present although difficult to clearly visualize. The right chest port is in place in good position. The cardiac, hilar, and mediastinal contours are normal. A moderate size right pleural effusion has decreased to near resolution. There is patchy opacity in the right base suggestive of atelectasis and/or pneumonia. There is no perceptible pneumothorax identified. Tiny left layering effusion present with small amount of passive atelectasis. No focal osseous or soft tissue abnormality. XR/XR chest 1V IMPRESSION: 1. Interval placement of pigtail catheter in the right base, difficult to well see on this examination. No perceptible pneumothorax postprocedural. 2. Right chest port in good position. 3. Right effusion has near completely resolved. Right basilar opacity is present, either reexpansion edema, atelectasis, or pneumonia. 4. Small left layering pleural effusion with mild passive atelectasis. Electronically signed by: Inocencio Chambers MD 04/22/2025 11:31 AM EDT
[2025-04-21 23:43] VITALS: BP 147/73; BP 229/100; PULSE 124; PULSE 130; RESP 26; TEMP 36.8; O2SAT 94; O2SAT 95; BMI 39.7
--- NOTE | 2025-04-21 23:48 | ECG_ITS ---
Test Reason : pain Blood Pressure : */* mmHG Vent. Rate : 118 BPM Atrial Rate : 118 BPM P-R Int : 122 ms QRS Dur : 78 ms QT Int : 332 ms P-R-T Axes : 31 26 37 degrees QTcB Int : 465 ms Sinus tachycardia with occasional Premature ventricular complexes Otherwise normal ECG When compared with ECG of 03-Apr-2025 00:43, Premature ventricular complexes are now Present Referred By: Randell Russell Electronically Signed By: SALAZAR SIMON
[2025-04-22] VITALS (17 sets, daily range): BP systolic 108–156; BP diastolic 56–107; PULSE 103–114; RESP 15–24; TEMP 36.3–37.2; O2SAT 92–96; BMI 40.4
[2025-04-22 00:14] LABS: MANUAL DIFF FLAG NO
[2025-04-22 00:15] LABS: Basophils Absolute Auto 0.1 X10*3/uL (0.0-0.2); Basophils Percent Auto 0.7 % (0-2); Eosinophils Absolute Auto 0.4 X10*3/uL (0.0-0.4); Eosinophils Percent Auto 2.6 % (0-4); Hematocrit 42.6 % (37.0-47.0); Hemoglobin 14.2 g/dl (12.0-16.0); Imm Gran Abs Auto 0.19 X10*3/uL (0.00-0.03); Imm Gran Pct Auto 1.3 % (0.0-0.4); Lymphocytes Absolute Auto 2.5 X10*3/uL (1.2-4.9); Mean Corpuscular HGB Conc 33.3 g/dl (31.0-35.0); Mean Corpuscular Hemoglobin 30.7 pg (27.0-33.0); Mean Platelet Volume 9.7 fL (9.4-12.3); Monocytes Absolute Auto 1.1 X10*3/uL (0.1-1.2); Monocytes Percent Auto 7.7 % (2-11); NRBC Pct Auto 0.1 /100WBC (0.0-0.2); Neutrophils Absolute Auto 10.4 x10*3/uL (2.0-8.3); Neutrophils Percent Auto 70.7 % (45-73); Platelet Count 289 X10*3/uL (160-400); Red Blood Count 4.63 X10*6/uL (4.20-5.50); Red Cell Distribution Width 14.3 % (11.0-16.0); White Blood Count 14.7 X10*3/uL (4.8-10.8)
[2025-04-22 00:28] LABS: Alanine Aminotransferase 20 U/L (0-31); Albumin Level 3.9 g/dL (3.5-5.0); Alkaline Phosphatase 127 U/L (39-117); Anion Gap 18 (12-20); Aspartate Amino Transferase 24 U/L (5-31); Bilirubin Total 0.3 mg/dL (0.0-1.0); Blood Urea Nitrogen 14 mg/dL (9-16); Calcium 9.7 mg/dL (8.4-10.2); Carbon Dioxide 22 mmol/L (22-29); Chloride 107 mmol/L (96-108); Creatinine Clr Calc Pharmacy 73.3; Estimated Glomerular Filt Rate > 60; Glucose Random 308 mg/dL (60-115); Lipase 6 U/L (8-78); Magnesium 1.7 mg/dL (1.6-2.6); Potassium 4.6 mmol/L (3.3-5.1); Sodium 142 mmol/L (135-145); Total Protein 7.1 g/dL (6.5-8.0)
[2025-04-22 00:31] LABS: Lactic Acid 3.8 mmol/L (0.5-2.0)
[2025-04-22 00:33] LABS: Troponin-I High Sensitivity 3.7 ng/L (<3.5-17.0)
--- OUTSIDE RECORDS SUMMARY | 2025-04-22 00:38 | XMS_ITS | Patient Health Record ---
Author Organization [facility] Address [address] [place] [address] Care Team Providers Care Pharmacy Helper Name Role Phone Po Concepción MADDEN Primary Care Provider Ravindra Arora [phone] Allergies Allergen (clinical drug ingredient) Drug/Non Drug [...] Status Risk Notes Problem Colon cancer screening (275602513) Colon cancer screening (Z12.11) Active confirmed Problem Gastroesophageal reflux disease (disorder) (219872622) Chronic GERD (K21.9) Active confirmed Vital Signs Blood pressure diastolic 00 mm Hg 12/21/2024 Height 5 ft 4 in in 12/21/2024 Blood pressure systolic 00 mm Hg 12/21/2024 Weight 223 lbs 12/21/2024 BMI 38.27 kg/m2 12/21/2024 Encounters Encounter Location Date Provider Diagnosis [facility] [address] [place] [phone] 12/21/2024 Ravindra Putnam Colon cancer screening Z12.11 and Chronic GERD K21.9 [facility] [address] [place] [phone] 12/24/2024 Ravindra Putnam [facility] [address] [place] [phone] 04/03/2025 Ravindra Putnam Assessments Encounter Date Diagnosis [...] She was instructed to speak with her prosthetic lab technician regarding instructions in regard to adjusting her [...] She was instructed to speak with her prosthetic lab technician regarding instructions in regard to adjusting her [...] Insured Coverage Start Date Coverage End Date [facility] [address] Attn Claims [facility] [place] [id number] THAO CHARLTON Self - patient is the insured Medical (General) History Medical History History ICD Code Thyroid nodule IDDM Peripheral vascular disease Urinary incontinence COPD Anxiety disorder Hypertension Renal calculi TIA Left breast cancer 03/2021 with chemo and surgery-Dr. Mitchell Reports a negative colonscopy in approx 2004 Denies [place],CVA,renal disease Neuropathy GERD Hyperlipidemia Surgical History Surgery Date(Month/Year) Mastectomy of left breast 2022-Dr. Roxann andersen Endometrial ablation Tubal ligation Tonsillectomy Appendectomy Cholecystectomy Bladder surgery Left knee replacement 2006
[2025-04-22 00:51] LABS: Influenza A PCR NEGATIVE (Negative); Influenza B PCR NEGATIVE (Negative); Resp Syncy Virus RNA Qual PCR NEGATIVE (Negative); SARS COV2 PCR INHOUSE NEGATIVE (Negative)
--- NOTE | 2025-04-22 01:14 | ED_ITS ---
HPI - General Adult General Chief complaint: Dyspnea Stated complaint: resp. distress Time Seen by Provider: 04/21/25 23:47 Source: patient, family, RN notes reviewed and old records reviewed Mode of arrival: EMS Limitations: no limitations History of Present Illness ED Provider: Yvonne HPI narrative: 65-year-old female with past medical history significant for history of breast cancer status post left mastectomy, malignant pleural effusion, type 2 diabetes, hypertension, diabetes, hyperlipidemia presenting for evaluation of shortness of breath. Patient reports that she had chest pain all day today. She has been using her nebulizers without any improvement in her symptoms. She finally called EMS due to shortness of breath. She was placed on CPAP and given nitro paste. Apparently EMS found the patient to be hypoxic to 88% with a respiratory of 33 and the patient is described as diuretic She arrives to the ED tachypneic to 26, heart rate of 124 but with an oxygen saturation of 93% on room air. She no longer has any chest pain Denies any fevers, chills, cough She reports at rest she is fairly comfortable but with any movement she becomes extremely short of breath The patient was admitted here 2 weeks ago, she had a left-sided thoracentesis, CTA was negative for PE but cytology was positive for malignant cells. She has not yet followed up with Oncology Related Data Home Medications ?Medication ?Instructions ?Recorded ?Confirmed acetaminophen 325 mg capsule 325 mg PO QID PRN Pain 09/01/22 04/22/25 cyanocobalamin (vitamin B-12) 1,000 mcg PO DAILY 09/04/22 04/22/25 1,000 mcg tablet ferrous sulfate 325 mg (65 mg 325 mg PO FR@0900 08/09/24 04/22/25 iron) tablet (Iron (ferrous sulfate)) zinc gluconate 50 mg tablet 50 mg PO DAILY 08/09/24 04/22/25 atorvastatin 80 mg tablet 80 mg PO DAILY 04/03/25 04/22/25 cholecalciferol (vitamin D3) 50 50 mcg PO Q48H 04/03/25 04/22/25 mcg (2,000 unit) capsule clotrimazole 1 % topical cream 1 appl topical BID PRN Fungal 04/03/25 04/22/25 Infections insulin aspart U-100 100 unit/mL 10 - 20 unit subcut TIDAC 04/03/25 04/22/25 (3 mL) subcutaneous pen (Novolog FlexPen U-100 Insulin aspart) ondansetron 4 mg disintegrating 4 mg PO Q8H PRN Nausea And Vomiting 04/03/25 04/22/25 tablet sennosides 8.6 mg tablet (Senokot) 8.6 mg PO BID PRN Constipation 04/03/25 04/22/25 solifenacin 5 mg tablet (Vesicare) 5 mg PO BEDTIME 04/03/25 04/22/25 triamcinolone acetonide 0.1 % 1 appl topical DAILY PRN Itchy/Dry 04/03/25 04/22/25 topical cream Skin dulaglutide 1.5 mg/0.5 mL 1.5 mg subcut FR 04/22/25 04/22/25 subcutaneous pen injector (Leversense) vibegron 75 mg tablet (Gemtesa) 75 mg PO DAILY 04/22/25 04/22/25 Previous Rx's ?Medication ?Instructions ?Recorded blood-glucose meter (FreeStyle #1 ea 05/28/22 Lite Meter kit) matectomy BRA #2 ea 10/11/23 Incontinence BED PADS WASHABLE #2 ea 01/13/24 compress.stocking,knee,reg,lrg #12 ea 01/13/24 clonidine HCl 0.1 mg tablet 0.1 mg PO BEDTIME #90 tabs 07/10/24 paroxetine HCl 20 mg tablet 20 mg PO DAILY 90 days #90 tabs 07/10/24 aspirin 81 mg tablet,delayed 81 mg PO DAILY 90 days #90 tabs 08/24/24 release (Adult Aspirin Regimen) ropinirole 1 mg tablet 1 mg PO BID #180 tabs 10/12/24 letrozole 2.5 mg tablet 2.5 mg PO DAILY #90 tabs 10/24/24 umeclidinium 62.5 mcg-vilanterol 1 inh inhalation DAILY #60 ea 10/27/24 25 mcg/actuation powdr for inhalation (Anoro Ellipta) oxycodone-acetaminophen 5 mg-325 1 tab PO Q8H PRN Breakthrough 01/31/25 mg tablet (Percocet) Pain, Moderate #50 tabs albuterol sulfate 2.5 mg/3 mL 2.5 mg (3 mL) inhalation Q4-6H PRN 02/05/25 (0.083 %) solution for nebulization for wheezing #180 mL pen needle, diabetic 32 gauge x #100 ea 02/07/25/ CHAIR LIFT #1 ea 02/15/25 Pull ups #240 ea 02/15/25 baby wipes #1 ea 02/15/25 hydrochlorothiazide 12.5 mg tablet 12.5 mg PO DAILY #30 tabs 02/28/25 amlodipine 5 mg tablet 5 mg PO BID 30 days #60 tabs 03/01/25 lancets 28 gauge (FreeStyle #100 ea 03/01/25 Lancets) insulin glargine 100 unit/mL (3 28 unit (0.28 mL) subcut DAILY #15 03/07/25 mL) subcutaneous pen (Lantus mL Solostar U-100 Insulin) blood sugar diagnostic (FreeStyle #100 ea 03/29/25 Lite Strips) albuterol sulfate 90 mcg/actuation 1 puff inhalation QID PRN 04/18/25 aerosol inhaler Shortness Of Breath Or Wheezing #8.5 grams fluticasone propionate 50 1 spray intranasal BEDTIME #16 04/18/25 mcg/actuation nasal grams spray,suspension (Flonase Allergy Relief) Allergies Allergy/AdvReac Type Severity Reaction Status Date / Time diclofenac [From Voltaren] Allergy Severe enlarged Verified 04/22/25 22:50 liver lisinopril [From Zestril] Allergy Severe Angioedema Verified 04/22/25 22:50 losartan Allergy Severe Angioedema Verified 04/22/25 22:50 omeprazole Allergy Intermediate elevated Verified 04/22/25 22:50 blood pressure Penicillins [PENICILLINS] Allergy Intermediate Facial Verified 04/22/25 22:50 Swelling oxybutynin [Oxybutynin] AdvReac Severe body Verified 04/22/25 22:50 twitching gabapentin AdvReac Intermediate Hypertensio Verified 04/22/25 22:50 n metformin AdvReac Intermediate Diarrhea Verified 04/22/25 22:50 duloxetine AdvReac Intermediate tachycardia Uncoded 04/22/25 22:50 Review of Systems 2 Constitutional: Constitutional: Denies body ache(s), Denies chills, Denies fever(s) and Denies headache(s) Eyes: Eyes: Denies blurry vision ENT: Denies vertigo, Denies dizziness and Denies headache(s) Cardiovascular: Cardiovascular: Reports chest pain, Denies chest pain at rest, Reports chest pain with activity, Reports dyspnea and Reports dyspnea on exertion Respiratory: Respiratory: Denies hemoptysis, Reports dyspnea and Reports dyspnea on exertion Gastrointestinal: Gastrointestinal: Denies abdominal pain, Denies nausea and Denies vomiting Musculoskeletal: Musculoskeletal: Denies back pain Integumentary/Breasts: Skin/Breast: Denies rash Neurologic: Denies vertigo, Denies dizziness and Denies headache(s) Psychiatric: Psychiatric: Reports anxiety [facility] Past Medical History Medical History Generalized anxiety disorder TIA (transient ischemic attack) (~12/2024) Recent bereavement Environmental and seasonal allergies HLD (hyperlipidemia) Multinodular goiter Peripheral neuropathy History of short term memory loss Port-[place]-Cath in place Smoker Family history of prostate cancer in father Leg swelling Shortness of breath Effusion of left knee Weakness Fall Thyroid nodule Adrenal adenoma Vision changes Diabetes History of palpitations History of unsteady gait Low back pain Arthritis Mild heartburn Hx of renal calculi Vaginal yeast infection Encounter to discuss test results 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 Cervical cancer screening Type 2 diabetes mellitus with hyperglycemia History of anal fissures Peripheral vascular disease Urinary incontinence Hypertension COPD (chronic obstructive pulmonary disease) Hypercholesterolemia Surgical History Hx of colonoscopy H/O total mastectomy of left breast (12/21/22) History of biopsy History of endometrial ablation Hx of tubal ligation History of tonsillectomy History of appendectomy History of cholecystectomy History of bladder surgery History of left knee replacement Family History Family History Mother History of breast cancer Father Prostate CA Brother No problems noted. Brother No problems noted. Daughter No problems noted. Social History Social History Household Members: Family Household Members Other:: adult daughter Housing: Condominium Are you a primary wound care rn to a significant other at home: No Do you presently have visiting nurse or other home services: Yes ([facility]) 75 years or older and lives alone: No Alcohol intake: current Alcohol intake frequency: holidays/special occasions only Comment: Fell 08/2022, leg weakness 1 glass on holidays Patient Tobacco Use Status: Current everyday Tobacco user Tobacco use type: Cigarette Cigarette Packs Per Day: 1 Years Smoked: 40, 1 pack a day e-Cigarette/Vaping Use: Former Use Second Hand Smoke Exposure: No service: No Current occupational status: disabled Cognitive needs: No Hearing needs: No Vision needs: Yes Physical Exam ED Vital Signs: Vital Signs - 24 hr 04/22/25 01:05 Pulse Rate 109 H Respiratory Rate 22 H Blood Pressure 117/64 Pulse Oximetry 94 Oxygen Delivery Method Room Air BMI result Body Mass Index 39.7 Const General: alert and awake; No healthy appearing Nutritional Appearance: well nourished and obese Orientation/consciousness: patient oriented x3 HENMT Head: Yes normocephalic and Yes atraumatic Eyes Eyelids: Yes eyelids normal Conjunctivae: conjunctivae normal Sclerae: sclerae normal Corneas: corneas normal Pupils: Equal, round and reactive pupils present EOM: EOMs intact bilaterally Neck Neck: Yes full ROM Resp Effort & Inspection: no audible wheezes, no cough and labored Auscultation: no wheezes and diminished lung sounds Cardio Rate: regular rate Rhythm: regular rhythm GI Inspection: No distended Palpation (GI): Soft to palpation, not firm, nontender, no guarding and not rigid Skin General skin exam: elasticity normal Neuro General: patient oriented x3 Cranial nerves: Yes Equal, round and reactive pupils present and Yes Bilaterally intact EOM present Cognition (Neuro): normal cognition Extrem Other: Moving all extremities well without any obvious deformities Medications Administered Generic Name Dose Route Start Last Admin Trade Name Freq PRN Reason Stop Dose Admin Acetaminophen 975 mg 04/22/25 15:30 04/22/25 21:46 Acetaminophen 325 Mg Tablet PO 975 mg TID [place]A Administration Amlodipine Besylate 5 mg 04/22/25 21:00 04/22/25 21:46 Amlodipine Besylate 5 Mg Tablet PO 5 mg BID [place] Administration Protocol Benzonatate 100 mg 04/22/25 15:55 04/22/25 21:46 Benzonatate 100 Mg Capsule PO 100 mg TID [place] Administration Clonidine HCl 0.1 mg 04/22/25 21:00 04/22/25 21:46 Clonidine Hcl 0.1 Mg Tablet PO 0.1 mg BEDTIME [place] Administration Protocol Clotrimazole 1 appl 04/22/25 09:00 04/22/25 21:59 Clotrimazole 1 % Cream 15 Gm Tube TOPICAL 1 appl BID [place] Administration Protocol Enoxaparin Sodium 40 mg 04/22/25 09:00 04/22/25 09:24 Enoxaparin Sodium 40 Mg/0.4 Ml Syringe SUBCUT 40 mg Q24H [place] Administration Famotidine 20 mg 04/22/25 15:25 04/22/25 15:41 Famotidine 20 Mg Tablet PO 20 mg DAILY [place] Administration Fluticasone Propionate 1 spray 04/22/25 21:00 04/22/25 21:59 Fluticasone Propionate Nasal 16 Gm [place] NOSTRIL-B Not Given BEDTIME [place]IRA Furosemide 20 mg 04/22/25 18:00 04/22/25 18:46 Furosemide 20 Mg/2 Ml Vial IVPUSH 20 mg BID@0900,1800 [facility] Administration Protocol Guaifenesin/Codeine Phosphate 10 ml 04/22/25 15:52 04/22/25 16:10 Guaifen/Codeine Sf 200/20/10ml 10 Ml Liquid PO 10 ml Q4H PRN Administration Cough Ibuprofen 400 mg 04/22/25 16:00 04/22/25 15:41 Ibuprofen 400 Mg Tablet PO 400 mg QSHIFT [facility] Administration Insulin Human Lispro 0 unit 04/22/25 03:40 04/22/25 21:40 Insulin Lispro 100 Unit/Ml 3 Ml Vial SUBCUT 6 unit QIDACHS [facility] Administration Protocol Insulin Human Lispro 5 unit 04/22/25 07:30 04/22/25 21:40 Insulin Lispro 100 Unit/Ml 3 Ml Vial SUBCUT 5 unit QIDACHS [facility] Administration Morphine Sulfate 2 mg 04/22/25 15:22 04/22/25 21:37 Morphine Sulfate 2 Mg/Ml Cartridge IVPUSH 2 mg Q3H PRN Administration Pain, Severe (Pain Scale 7-10) Protocol Ropinirole HCl 1 mg 04/22/25 21:00 04/22/25 21:43 Ropinirole Hcl 1 Mg Tablet PO 1 mg BID [place] Administration Sodium Chloride 3 ml 04/22/25 08:00 04/23/25 00:15 0.9 % Sodium Chloride Flush 3 Ml Syringe IVFLUSH Not Given QSHIFT [place] Vitamin D 50 mcg 04/22/25 10:45 04/22/25 13:28 Cholecalciferol (Vitamin D3) 25 Mcg Tablet PO 50 mcg Q48H [place] Administration Discontinued Medications Generic Name Dose Route Start Last Admin Trade Name Freq PRN Reason Stop Dose Admin Furosemide 20 mg 04/22/25 02:32 04/22/25 02:37 Furosemide 20 Mg/2 Ml Vial IVPUSH 04/22/25 02:33 20 mg ONCE STA Administration Protocol Hydromorphone HCl 0.5 mg 04/22/25 02:32 04/22/25 02:37 Hydromorphone Hcl 0.5 Mg/0.5 Ml Syringe IVPUSH 04/22/25 02:33 0.5 mg ONCE STA Administration Protocol Insulin Glargine 24 unit 04/22/25 09:00 04/22/25 09:23 Insulin Glargine,Hum.Rec.Anlog 100 Unit/Ml 10 Ml Vial SUBCUT 04/22/25 09:01 24 unit ONCE ONE Administration Lidocaine HCl 5 ml 04/22/25 11:12 04/22/25 11:13 Lidocaine Hcl 1 % Mpf 5 Ml Vial SUBCUT 04/22/25 11:13 5 ml ONCE ONE Administration Morphine Sulfate 2 mg 04/22/25 11:49 04/22/25 13:30 Morphine Sulfate 2 Mg/Ml Cartridge IVPUSH 2 mg Q4H PRN Administration Pain, Severe (Pain Scale 7-10) Protocol Medical Decision Making Medical Decision Making MDM Narrative: 65-year-old female with a past medical history as above presents for evaluation of shortness of breath that is worsening throughout the day today. She has no fevers, cough to suggest infectious process. Her symptoms are much worse with exertion. She did have a left-sided chest tube placed that was accidentally pulled out per her report. She had been using nebulizers with no improvement in her symptoms, she is currently stable on room air. She is slightly tachypneic 26 but otherwise oxygen saturation is 93 or 94% on room air. Lungs are clear to auscultation, she has no wheezing, therefore this is less likely a COPD exacerbation. Chest x-ray shows moderate to large right-sided pleural effusion compared to small left-sided pleural effusion. I reviewed her recent echocardiogram from 2 weeks ago his showed ejection fraction greater than 70% but some abnormal diastolic dysfunction. The patient will likely benefit from an IR consult and likely replacement of right-sided chest tube and oncology consultation due to recurrence of malignant pleural effusions Differential Diagnosis Differential Diagnoses: The differential diagnosis associated with the presentation includes Hypoxia Malignant pleural effusion Pneumonia Pneumonitis CHF Influenza Admission/Observation Consideration of admission/observation: Escalation of care including admission/observation considered Lab Data MDM Lab Attestation statement: I reviewed the patient's lab results. Mild leukocytosis to 14.7 which is greatly improved from her discharge of 20.4 on 04/09/2025. This may be reactive or due to malignancy, less likely infectious cause. Hemoglobin and hematocrit are within normal limits. Normal platelet count. Chemistries significant for a lactic acid of 3.8 which I suspect was due to albuterol as she has been giving herself nebulizers throughout the day today. Troponin is normal at 3.7. Random glucose of 308 but no evidence of DKA 04/22/25 03:50 04/22/25 03:50 Labs: Lab Results 04/22/25 04/22/25 04/22/25 Range/Units 00:02 00:03 00:07 WBC 14.7 H (4.8-10.8) X10*3/uL RBC 4.63 (4.20-5.50) X10*6/uL Hgb 14.2 (12.0-16.0) g/dl Hct 42.6 (37.0-47.0) % MCV 92.0 (80.0-98.0) fL MCH 30.7 (27.0-33.0) pg MCHC 33.3 (31.0-35.0) g/dl RDW 14.3 (11.0-16.0) % Plt Count 289 (160-400) X10*3/uL MPV 9.7 (9.4-12.3) fL Immature Gran % (Auto) 1.3 H (0.0-0.4) % Neut % (Auto) 70.7 (45-73) % Lymph % (Auto) 17.0 L (20-40) % [place] % (Auto) 7.7 (2-11) % Eos % (Auto) 2.6 (0-4) % Baso % (Auto) 0.7 (0-2) % Lymph # (Auto) 2.5 (1.2-4.9) X10*3/uL [place] # (Auto) 1.1 (0.1-1.2) X10*3/uL Eos # (Auto) 0.4 (0.0-0.4) X10*3/uL Baso # (Auto) 0.1 (0.0-0.2) X10*3/uL Abs Immat Gran (auto) 0.19 H (0.00-0.03) X10*3/uL Absolute Neuts (auto) 10.4 H (2.0-8.3) x10*3/uL Absolute Nucleated RBC 0.020 H (0.0-0.012) X10*3/uL Nucleated RBC % (auto) 0.1 (0.0-0.2) /100WBC Sodium 142 (135-145) mmol/L Potassium 4.6 (3.3-5.1) mmol/L Chloride 107 (96-108) mmol/L Carbon Dioxide 22 (22-29) mmol/L Anion Gap 18 (12-20) BUN 14 (9-16) mg/dL Creatinine 0.85 (0.5-1.4) mg/dL Estim Creat Clear Calc 73.3 Estimated GFR > 60 Random Glucose 308 H (60-115) mg/dL Lactic Acid (0.5-2.0) mmol/L Calcium 9.7 D (8.4-10.2) mg/dL Magnesium 1.7 (1.6-2.6) mg/dL Total Bilirubin 0.3 (0.0-1.0) mg/dL AST 24 (5-31) U/L ALT 20 (0-31) U/L Alkaline Phosphatase 127 H (39-117) U/L Troponin I High Sens (<3.5-17.0) ng/L B-Natriuretic Peptide 27 (<100) pg/mL Total Protein 7.1 (6.5-8.0) g/dL Albumin 3.9 (3.5-5.0) g/dL Lipase 6 L (8-78) U/L Procalcitonin 0.04 ng/mL Influenza Type A (PCR) NEGATIVE (Negative) Influenza Type B (PCR) NEGATIVE (Negative) RSV RNA Qual (PCR) NEGATIVE (Negative) SARS-CoV-2 RNA (RT-PCR) NEGATIVE (Negative) 04/22/25 Range/Units 00:08 WBC (4.8-10.8) X10*3/uL RBC (4.20-5.50) X10*6/uL Hgb (12.0-16.0) g/dl Hct (37.0-47.0) % MCV (80.0-98.0) fL MCH (27.0-33.0) pg MCHC (31.0-35.0) g/dl RDW (11.0-16.0) % Plt Count (160-400) X10*3/uL MPV (9.4-12.3) fL Immature Gran % (Auto) (0.0-0.4) % Neut % (Auto) (45-73) % Lymph % (Auto) (20-40) % [place] % (Auto) (2-11) % Eos % (Auto) (0-4) % Baso % (Auto) (0-2) % Lymph # (Auto) (1.2-4.9) X10*3/uL [place] # (Auto) (0.1-1.2) X10*3/uL Eos # (Auto) (0.0-0.4) X10*3/uL Baso # (Auto) (0.0-0.2) X10*3/uL Abs Immat Gran (auto) (0.00-0.03) X10*3/uL Absolute Neuts (auto) (2.0-8.3) x10*3/uL Absolute Nucleated RBC (0.0-0.012) X10*3/uL Nucleated RBC % (auto) (0.0-0.2) /100WBC Sodium (135-145) mmol/L Potassium (3.3-5.1) mmol/L Chloride (96-108) mmol/L Carbon Dioxide (22-29) mmol/L Anion Gap (12-20) BUN (9-16) mg/dL Creatinine (0.5-1.4) mg/dL Estim Creat Clear Calc Estimated GFR Random Glucose (60-115) mg/dL Lactic Acid 3.8 H* (0.5-2.0) mmol/L Calcium (8.4-10.2) mg/dL Magnesium (1.6-2.6) mg/dL Total Bilirubin (0.0-1.0) mg/dL AST (5-31) U/L ALT (0-31) U/L Alkaline Phosphatase (39-117) U/L Troponin I High Sens 3.7 (<3.5-17.0) ng/L B-Natriuretic Peptide (<100) pg/mL Total Protein (6.5-8.0) g/dL Albumin (3.5-5.0) g/dL Lipase (8-78) U/L Procalcitonin ng/mL Influenza Type A (PCR) (Negative) Influenza Type B (PCR) (Negative) RSV RNA Qual (PCR) (Negative) SARS-CoV-2 RNA (RT-PCR) (Negative) Independent Interpretation I performed an independent interpretation of an: EKG and Plain X-Ray (Moderate to large right pleural effusion) Interpretation: Sinus tachycardia with a rate of 118 beats minute. PVC noted Radiology Impression Discussion of test interpretation with radiology: I have reviewed the radiologist's reading. Radiologist Impression: Findings: Small bilateral pleural effusions, right worse than left; with interim worsening relative to comparison. Worsening bibasilar atelectasis/consolidation, right worse than left. Interstitial opacities are nonspecific and may reflect recurrent edema or persistent pneumonitis. No pneumothorax in this portable image. Right-sided chest port is redemonstrated. Mediastinum is partly obscured. Degenerative changes are redemonstrated imaged shoulders AC joints with old/chronic appearing fragments of the right shoulder. IMPRESSION: 1. Interstitial opacities are nonspecific and may reflect pulmonary edema. 2. Mild worsening of the bilateral pleural effusions, right worse than left. This document has been electronically signed by: Scotty Drew MD on 04/22/2025 00:37:31 Discharge Plan Discharge Clinical Impression: Recurrent pleural effusion Patient Disposition: Admitted As Inpatient Interventions: Admission Worksheet (ED) Last Done: 04/22/25 05:56 Discharge Date/Time: 04/22/25 08:33
[2025-04-22 02:12] LABS: Reflex Lactate? Lactic Acid Added
[2025-04-22] MEDS: HYDROmorphone HCl 0.5 MG/0.5 ML SYRINGE IVPUSH (02:37)
[2025-04-22] MEDS: Furosemide 20 MG/2 ML VIAL IVPUSH ×2 (02:37→18:46)
--- NOTE | 2025-04-22 02:38 | P.HPHOSP_ITS ---
History of Present Illness Date of Service: 04/22/25 Attending physician on admission: Nathan Nice Chief Complaint: Shortness of breath Sarah Ervin is a 65 years old woman with past medical history is remarkable for breast cancer status post left mastectomy, type 2 diabetes mellitus, COPD - no home oxygen, HFpEF, anxiety, obesity and PVD presents to the emergency department complaining of worsening shortness on breath over the last several days. She has not associated chest tightness. She also have occasional wheezing and cough. Did not report any fever or chills. She has been using bronchodilator therapy at home without significant improvement of symptoms. Did not report any headache, dizziness or or loss of consciousness. She also denied any acute gastrointestinal or genitourinary symptoms. Reported rash to both feet soles (started 2 days ago). She has an ongoing tobacco smoker. Denied marijuana smoking, alcohol abuse or illicit drug use. She was recently discharged from the hospital on April 10 after she was diagnosed due to bilateral pleural effusions requiring chest tube placement. Pleural fluid at that time came back positive for malignancy (breast). At that time she was treated with supplemental oxygen, antibiotics, nebs, steroids and was seen by pulmonary service recommended chest tube placement. Left-sided pigtail chest tube was inserted by IR (April 04) draining approximately 120 mL of red fluid. She also underwent a transthoracic echo that showed hyperdynamic LV function > 70%, no evidence of regional wall motion abnormalities. It did showed impaired relaxation filling pattern. In the ED today she was found to have mild tachycardia and tachypnea. Oxygen saturation is normal on room air and blood pressure is stable. Last blood pressure 141/66. There is no fever. Blood workup showed leukocytosis of 14.7 (prior 20.4). Hemoglobin and platelets are normal. There are no electrolyte imbalances. Renal function is normal. Initially, lactic acid was 3.8 (now is 2.4). LFTs are unremarkable. Troponin is 3.7. Albumin and total protein are normal. Viral testing for influenza, RSV and COVID-19 is negative. CXR showed interstitial opacities are nonspecific and may reflect pulmonary edema, mild wall setting of bilateral pleural effusions (R>L). ECG showed sinus tachycardia(131 bpm) with occasional PVCs. Review of Systems 2 Review of Systems: All 12 systems were reviewed and normal except as noted in HPI. [facility] Medical History (Updated 04/22/25 @ 04:00 by Nathan Nice MD) Generalized anxiety disorder TIA (transient ischemic attack) (~12/2024) Recent bereavement Environmental and seasonal allergies HLD (hyperlipidemia) Multinodular goiter Peripheral neuropathy History of short term memory loss Port-[place] in place Smoker Family history of prostate cancer in father Leg swelling Shortness of breath Effusion of left knee Weakness Fall Thyroid nodule Adrenal adenoma Vision changes Diabetes History of palpitations History of unsteady gait Low back pain Arthritis Mild heartburn Hx of renal calculi Vaginal yeast infection Encounter to discuss test results 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 Brother No problems noted. Daughter No problems noted. Surgical History Hx of colonoscopy H/O total mastectomy of left breast (12/21/22) History of biopsy History of endometrial ablation Hx of tubal ligation History of tonsillectomy History of appendectomy History of cholecystectomy History of bladder surgery History of left knee replacement Social History Household Members: Children Household Members Other:: adult daughter Housing: [facility] Are you a primary restorative care technician to a significant other at home: No Do you presently have visiting nurse or other home services: No (daughter cares for her) Alcohol intake: current Alcohol intake frequency: holidays/special occasions only Comment: Fell 08/2022, leg weakness 1 glass on holidays Patient Tobacco Use Status: Former Tobacco user Tobacco use type: Cigarette Cigarette Packs Per Day: 1 Years Smoked: 40, 1 pack a day Smoked in Last 30 Days: Yes e-Cigarette/Vaping Use: Former Use Second Hand Smoke Exposure: No Use of substances other than those prescribed or required for medical reasons: No Advance Directives: No Advance Directives Information Provided: Yes Do you have a plan to hurt others: No Plan Nutrition Risks: No Nutritional Risk service: No Current occupational status: disabled Cognitive needs: No Hearing needs: No Vision needs: Yes Meds Allergies Allergy/AdvReac Type Severity Reaction Status Date / Time diclofenac [From Voltaren] Allergy Severe enlarged Verified 04/21/25 23:48 liver lisinopril [From Zestril] Allergy Severe Angioedema Verified 04/21/25 23:48 losartan Allergy Severe Angioedema Verified 04/21/25 23:48 omeprazole Allergy Intermediate elevated Verified 04/21/25 23:48 blood pressure Penicillins [PENICILLINS] Allergy Intermediate Facial Verified 04/21/25 23:48 Swelling oxybutynin [Oxybutynin] AdvReac Severe body Verified 04/21/25 23:48 twitching gabapentin AdvReac Intermediate Hypertensio Verified 04/21/25 23:48 n metformin AdvReac Intermediate Diarrhea Verified 04/21/25 23:48 duloxetine AdvReac Intermediate tachycardia Uncoded 04/21/25 23:48 Active Medications: Current Medications Acetaminophen (Acetaminophen 325 Mg Tablet) 975 mg PO Q6H PRN PRN Reason: Pain, Mild 1-3,fever,headache Enoxaparin Sodium (Enoxaparin Sodium 40 Mg/0.4 Ml Syringe) 40 mg SUBCUT Q24H [place] Melatonin (Melatonin 3 Mg Tablet) 6 mg PO BEDTIME PRN PRN Reason: Insomnia Sodium Chloride (0.9 % Sodium Chloride Flush 3 Ml Syringe) 3 ml IVFLUSH QSHIFT [place] Home Medications ?Medication ?Instructions ?Recorded ?Confirmed ?Last Taken ?Type acetaminophen 325 mg capsule 325 mg PO QID PRN Pain 09/01/22 04/18/25 Unknown History cyanocobalamin (vitamin B-12) 1,000 mcg PO DAILY 09/04/22 04/18/25 04/02/25 History 1,000 mcg tablet ferrous sulfate 325 mg (65 mg 325 mg PO FR@0900 08/09/24 04/18/25 03/29/25 History iron) tablet (Iron (ferrous sulfate)) zinc gluconate 50 mg tablet 50 mg PO DAILY 08/09/24 04/18/25 04/02/25 History atorvastatin 80 mg tablet 80 mg PO DAILY 04/03/25 04/18/25 04/02/25 History cholecalciferol (vitamin D3) 50 50 mcg PO Q48H 04/03/25 04/18/25 04/01/25 History mcg (2,000 unit) capsule clotrimazole 1 % topical cream 1 appl topical BID PRN Fungal 04/03/25 04/18/25 Unknown History Infections dulaglutide 0.75 mg/0.5 mL 0.75 mg subcut FR 04/03/25 04/18/25 03/29/25 History subcutaneous pen injector (Trulicity) insulin aspart U-100 100 unit/mL 10 - 20 unit subcut TIDAC 04/03/25 04/18/25 04/02/25 History (3 mL) subcutaneous pen (Novolog FlexPen U-100 Insulin aspart) ondansetron 4 mg disintegrating 4 mg PO Q8H PRN Nausea And Vomiting 04/03/25 04/18/25 Unknown History tablet sennosides 8.6 mg tablet (Senokot) 8.6 mg PO BID PRN Constipation 04/03/25 04/18/25 04/02/25 History solifenacin 5 mg tablet (Vesicare) 5 mg PO BEDTIME 04/03/25 04/18/25 04/02/25 History triamcinolone acetonide 0.1 % 1 appl topical DAILY PRN Itchy/Dry 04/03/25 04/18/25 Unknown History topical cream Skin Physical Exam 2 Vital Signs and Narrative: Vital Signs: Last Vital Signs Temp 98.3 F 04/21/25 23:43 Pulse 106 H 04/22/25 02:34 Resp 24 H 04/22/25 02:37 BP 141/66 H 04/22/25 02:37 Pulse Ox 96 04/22/25 02:34 O2 Del Method Nasal Cannula 04/22/25 02:34 O2 Flow Rate 2 04/22/25 02:34 BMI result Body Mass Index 39.7 Constitutional - Awake and Alert, mild respiratory distress. Chronically ill appearance. HEENT - Baldness. PER, EOMI. Dry oral mucosa. Heart - Tachycardia. Regular rhythm. No murmurs. Lungs - Normal lung expansion, Normal respiratory effort, No respiratory distress. Left lung: Basal crackles. Right lung: Decreased breath sound at base. No wheezing. Chest - left mastectomy. Abdomen - NT / ND; +BS; No rebound or guarding Extremities - No edema. Feet: Musculoskeletal - Normal inspection, normal ROM Skin - Warm/Dry. No pallor. No jaundice. Neurological - Alert & oriented x3. No focal weakness grossly noted. Normal speech. Psychological - Appropriate affect Results Labs 04/22/25 00:02 04/22/25 00:03 Labs: Laboratory Results - last 24 hr 04/22/25 04/22/25 04/22/25 00:02 00:03 00:07 MCV 92.0 MCH 30.7 MCHC 33.3 RDW 14.3 Plt Count 289 MPV 9.7 Immature Gran % (Auto) 1.3 H Neut % (Auto) 70.7 Lymph % (Auto) 17.0 L [place] % (Auto) 7.7 Eos % (Auto) 2.6 Baso % (Auto) 0.7 Lymph # (Auto) 2.5 [place] # (Auto) 1.1 Eos # (Auto) 0.4 Baso # (Auto) 0.1 Abs Immat Gran (auto) 0.19 H Absolute Neuts (auto) 10.4 H Absolute Nucleated RBC 0.020 H Nucleated RBC % (auto) 0.1 Anion Gap 18 Estim Creat Clear Calc 73.3 Estimated GFR > 60 Random Glucose 308 H Lactic Acid Calcium 9.7 D Magnesium 1.7 Total Bilirubin 0.3 AST 24 ALT 20 Alkaline Phosphatase 127 H Troponin I High Sens Total Protein 7.1 Albumin 3.9 Lipase 6 L Influenza Type A (PCR) NEGATIVE Influenza Type B (PCR) NEGATIVE RSV RNA Qual (PCR) NEGATIVE SARS-CoV-2 RNA (RT-PCR) NEGATIVE 04/22/25 00:08 MCV MCH MCHC RDW Plt Count MPV Immature Gran % (Auto) Neut % (Auto) Lymph % (Auto) [place] % (Auto) Eos % (Auto) Baso % (Auto) Lymph # (Auto) [place] # (Auto) Eos # (Auto) Baso # (Auto) Abs Immat Gran (auto) Absolute Neuts (auto) Absolute Nucleated RBC Nucleated RBC % (auto) Anion Gap Estim Creat Clear Calc Estimated GFR Random Glucose Lactic Acid 3.8 H* Calcium Magnesium Total Bilirubin AST ALT Alkaline Phosphatase Troponin I High Sens 3.7 Total Protein Albumin Lipase Influenza Type A (PCR) Influenza Type B (PCR) RSV RNA Qual (PCR) SARS-CoV-2 RNA (RT-PCR) Assessment and Plan (1) Recurrent pleural effusion: Status: Acute (2) Acute on chronic diastolic CHF (congestive heart failure): Status: Acute Plan Sarah Ervin is a 65 y/o woman with PMHx significant for breast CA s/p left mastectomy admitted with: * Bilateral pleural effusions (R>L) multifactorial: Malignant with a component of acute on chronic diastolic CHF in the setting of underlying COPD, likely causing hypoxemia. S/p recent chest tube placement (left-side). Admit to hospitalist service. Telemetry. Pulse oximetry. Supplemental oxygen (1L/min via NC). Lasix 20 mg IV now then every 12 hours. Dilaudid 0.5 mg IV x1 to decrease work of breathing. IR consult for right-sided ultrasound-guided thoracentesis (therapeutic) and/or chest tube placement if appropriate. Bronchodilator therapy as needed for wheezing (Xopenex). Check D-dimer. Daily weight. Low-salt diet. * Elevated lactic acid likely secondary to hypoxemia and albuterol; trending down (3.8--> 2.4). Doubt sepsis: Leukocytosis decreasing, no fever. Tachycardia and tachypnea are related to pleural effusions and underlying hypoxemia. Continue supplemental oxygen. We will avoid IVFs as the patient has shortness of breaths secondary to pleural effusion and CHF/pulmonary edema. Blood cultures obtained -will follow results. Check procalcitonin. * Type 2 diabetes mellitus. BG checks before meals at bedtime. Diabetic diet. Insulin sliding scale and Lantus. * Nicotine dependence. Tobacco cessation education. * Essential hypertension. Continue amlodipine and clonidine. Hydrochlorothiazide on hold as the patient will be receiving furosemide. * Hyperlipidemia. Continue statin. * Restless leg syndrome. Continue ropiniole. * Mood disorder. Continue paroxetine. * Breast CA s/p left mastectomy. Continue Letrozole. * Obesity. class II. BMI 39.7 kg/m2. * Bilateral foot rash. Possible fungal infection (see pics on physical exam). Clotrimazole cream b.i.d. to affected areas. DVT prophylaxis: Lovenox Code status: Full. Patient will need hospitalization for at least 2 midnights for respiratory failure secondary to pleural effusions and acute CHF treatment with supplemental oxygen, IV diuretic therapy, bronchodilator therapy and evaluation by IR for possible chest tube. Quality Stroke Does the patient have a stroke diagnosis?: No VTE Prior VTE?: No VTE Risk Level:: Medical - moderate - high VTE Device Contraindication: Treatment Not Indicated VTE Drug Contraindication: N/A - Med Ordered
[2025-04-22 02:52] LABS: ~Lactic Acid-LAB USE ONLY 2.4 mmol/L (0.5-2.0)
[2025-04-22 02:52] LABS: Cancel Lactic Acid Canceled
[2025-04-22 03:12] LABS: Appearance Urine Clear; Color Urine Yellow; Glucose Urine UA >=1000 mg/dL (Negative); Leukocyte Esterase Urine Negative (Negative); Nitrite Urine Negative (Negative); PH 5.5 (5.0-9.0); Specific Gravity - Urine 1.025 (1.005-1.025); UMIC TRIGGER UACC YES; Urine Blood Negative (Negative); Urine Ketones Trace mg/dL (Negative); Urine Protein 100 (2+) mg/dL (Neg-Trace)
[2025-04-22 03:19] LABS: Bacteria Urine Trace (None Seen); Hyaline Casts Urine 0-2 /LPF (0-2); WBC Urine 0-5 /HPF (0-5)
[2025-04-22 03:24] LABS: Amphetamine Screen Urine Not Detected (Not Detect); Barbiturates, Urine Not Detected (Not Detect); Benzodiazepines Screen Urine Not Detected (Not Detect); Buprenorphine Scr Not Detected (Not Detect); Cannabinoid Screen Urine Not Detected (Not Detect); Cocaine Screen Urine Not Detected (Not Detect); Fentanyl, urine Not Detected (Not Detect); Methadone Screen, Urine Not Detected (Not Detect); Opiate Screen Urine Not Detected (Not Detect); Oxycodone Screen Urine Positive (Not Detect); Phencyclidine Screen Urine Not Detected (Not Detect)
[2025-04-22 04:02] LABS: B Type Natriuretic Peptide 27 pg/mL (<100)
[2025-04-22 04:04] LABS: MANUAL DIFF FLAG NO
[2025-04-22 04:05] LABS: Basophils Absolute Auto 0.1 X10*3/uL (0.0-0.2); Basophils Percent Auto 0.7 % (0-2); Eosinophils Absolute Auto 0.2 X10*3/uL (0.0-0.4); Eosinophils Percent Auto 1.1 % (0-4); Hematocrit 42.2 % (37.0-47.0); Hemoglobin 13.7 g/dl (12.0-16.0); Imm Gran Abs Auto 0.11 X10*3/uL (0.00-0.03); Imm Gran Pct Auto 0.7 % (0.0-0.4); Lymphocytes Absolute Auto 1.7 X10*3/uL (1.2-4.9); Lymphocytes Percent Auto 11.2 % (20-40); Mean Corpuscular HGB Conc 32.5 g/dl (31.0-35.0); Mean Corpuscular Hemoglobin 30.4 pg (27.0-33.0); Mean Corpuscular Volume 93.6 fL (80.0-98.0); Monocytes Absolute Auto 0.8 X10*3/uL (0.1-1.2); Monocytes Percent Auto 5.5 % (2-11); NRBC Pct Auto 0.1 /100WBC (0.0-0.2); Neutrophils Absolute Auto 12.1 x10*3/uL (2.0-8.3); Neutrophils Percent Auto 80.8 % (45-73); Platelet Count 271 X10*3/uL (160-400); Red Blood Count 4.51 X10*6/uL (4.20-5.50); Red Cell Distribution Width 14.3 % (11.0-16.0)
[2025-04-22 04:07] LABS: Glucose, Whole Blood 337 mg/dL (60-115)
[2025-04-22 04:10] LABS: Prothrombin Time 11.6 SEC (10.9-12.4)
[2025-04-22 04:11] LABS: Procalcitonin 0.04 ng/mL
[2025-04-22] MEDS: Insulin Lispro 100 UNIT/ML 3 ML VIAL SUBCUT ×9 (04:12→21:40)
[2025-04-22 04:20] LABS: Anion Gap 18 (12-20); Blood Urea Nitrogen 16 mg/dL (9-16); Calcium 9.7 mg/dL (8.4-10.2); Carbon Dioxide 21 mmol/L (22-29); Chloride 106 mmol/L (96-108); Creatinine Clr Calc Pharmacy 77.8; Estimated Glomerular Filt Rate > 60; Glucose Random 329 mg/dL (60-115); Magnesium 1.8 mg/dL (1.6-2.6); Potassium 4.6 mmol/L (3.3-5.1); Sodium 140 mmol/L (135-145)
[2025-04-22 07:26] LABS: Glucose, Whole Blood 188 mg/dL (60-115)
--- NOTE | 2025-04-22 08:52 | MHC.CM.PN ---
CM met with Patient at bedside and addressed IMM with her, providing Patient with the original and a copy has been placed on the chart. Patient lives in an apartment with her Daughter/HCP/Henna and she believes that she is active with [facility]. Home/resume [facility] is Patient's goal and CM has initiated and will follow for dc planning. PCP is Dr. Concepción Reyes and Patient hopes to take the shuttle home at time of dc.
[2025-04-22] MEDS: 0.9 % Sodium Chloride Flush 3 ML SYRINGE IVFLUSH ×2 (09:19→17:09)
[2025-04-22] MEDS: Insulin Glargine,Hum.rec.anlog 100 UNIT/ML 10 ML VIAL 24 UNIT SUBCUT (09:23)
[2025-04-22] MEDS: Enoxaparin Sodium 40 MG/0.4 ML SYRINGE SUBCUT (09:24)
--- NOTE | 2025-04-22 09:38 | PHA.MEDREC ---
Addendum entered by Saleem Hernandes [facility] 04/22/25 10:33: MED REC CHECKED BY [facility] Original Note: Pharmacy Consult ? Medication Reconciliation Pharmacy has completed the medication reconciliation. Spoke to patient's daughter Henna over the phone to confirm med list. Daughter states patient is no longer taking Losartan 25 mg, even though it was last filled 03/26/25 for 28 day supply. Daughter confirmed Lantus 28 units daily, Novolog Flexpen 10-20 units with meals per sliding scale, Vitamin D3 50 mcg QOD last dose was 04/19/25, Ferrous sulfate 325 mg every Tuesday, last dose 04/19/25, Trulicity was increased to 1.5 mg every Tuesday, last dose was 04/19/25. daughter states patient started Gemtesa 75 mg daily. Patient fills her medications from [facility]. Patient had all her morning medications yesterday.
[2025-04-22] MEDS: Lidocaine HCl 1 % MPF 5 ML VIAL SUBCUT (11:13)
--- NOTE | 2025-04-22 11:35 | P.CONPL_ITS ---
History of Present Illness History of Present Illness Consult date: 04/22/25 Chief complaint: Right pleural effusion Narrative: 65-year-old lady recent 40+ pack-year smoker with underlying, diabetes mellitus, hypotension, PVD, breast cancer status post mastectomy metastatic with positive left-sided pleural effusion on most recent admission admitted on 04/22/2025 with tachycardia and dyspnea without hypoxia. Chest x-ray demonstrated known right- sided pleural effusion, but no significant recurrence of recently drained left- sided pleural effusion. Patient was admitted to telemetry service and evaluation was requested further right pleural effusion. Review of Systems 2 Constitutional: Constitutional: Denies daytime sleepiness, Denies excessive sweating, Denies fatigue, Denies fever(s), Denies lethargy, Denies malaise, Denies night sweats, Denies snoring and Denies weight loss Eyes: Eyes: Denies blurry vision and Denies itchy eyes ENT: Denies nasal congestion, Denies post nasal drip, Denies sinus pain, Denies sinus pressure and Denies other ( Thrush) Cardiovascular: Cardiovascular: Denies chest pain, Denies pedal edema, Denies dyspnea, Reports dyspnea on exertion, Denies orthopnea and Denies paroxysmal nocturnal dyspnea Respiratory: Respiratory: Denies cough, Denies hemoptysis, Denies excessive phlegm production, Denies dyspnea, Reports dyspnea on exertion, Denies snoring and Denies wheezing Gastrointestinal: Gastrointestinal: Denies abdominal pain and Denies heartburn Musculoskeletal: Musculoskeletal: Denies myalgias, Denies arthralgias and Denies joint swelling Integumentary/Breasts: Skin/Breast: Denies rash Neurologic: Denies memory loss and Denies seizure-like activity Psychiatric: Psychiatric: Denies abnormal sleep pattern, Denies anxiety and Denies memory loss Endocrine: Endocrine: Denies excessive sweating, Denies fatigue and Denies heat intolerance Hematologic/Lymphatic: Hematologic/Lymphatic: Denies easy bruising Allergic/Immunologic: Allergic/Immunologic: Denies itchy eyes, Denies seasonal rhinorrhea and Denies wheezing PMFSH Past Medical History Medical History Generalized anxiety disorder TIA (transient ischemic attack) (~12/2024) Recent bereavement Environmental and seasonal allergies HLD (hyperlipidemia) Multinodular goiter Peripheral neuropathy History of short term memory loss [place] in place Smoker Family history of prostate cancer in father Leg swelling Shortness of breath Effusion of left knee Weakness Fall Thyroid nodule Adrenal adenoma Vision changes Diabetes History of palpitations History of unsteady gait Low back pain Arthritis Mild heartburn Hx of renal calculi Vaginal yeast infection Encounter to discuss test results 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 Brother No problems noted. Daughter No problems noted. Surgical History Surgical History Hx of colonoscopy H/O total mastectomy of left breast (12/21/22) History of biopsy History of endometrial ablation Hx of tubal ligation History of tonsillectomy History of appendectomy History of cholecystectomy History of bladder surgery History of left knee replacement Social History Social History Household Members: Family Household Members Other:: adult daughter [facility] Are you a primary respiratory care instructor to a significant other at home: No Do you presently have visiting nurse or other home services: Yes ([facility]) 75 years or older and lives alone: No Alcohol intake: current Alcohol intake frequency: holidays/special occasions only Comment: Fell 08/2022, leg weakness 1 glass on holidays Patient Tobacco Use Status: Current everyday Tobacco user Tobacco use type: Cigarette Cigarette Packs Per Day: 1 Years Smoked: 40, 1 pack a day e-Cigarette/Vaping Use: Former Use Second Hand Smoke Exposure: No service: No Current occupational status: disabled Cognitive needs: No Hearing needs: No Vision needs: Yes Meds Allergies Allergy/AdvReac Type Severity Reaction Status Date / Time diclofenac [From Voltaren] Allergy Severe enlarged Verified 04/21/25 23:48 liver lisinopril [From Zestril] Allergy Severe Angioedema Verified 04/21/25 23:48 losartan Allergy Severe Angioedema Verified 04/21/25 23:48 omeprazole Allergy Intermediate elevated Verified 04/21/25 23:48 blood pressure Penicillins [PENICILLINS] Allergy Intermediate Facial Verified 04/21/25 23:48 Swelling oxybutynin [Oxybutynin] AdvReac Severe body Verified 04/21/25 23:48 twitching gabapentin AdvReac Intermediate Hypertensio Verified 04/21/25 23:48 n metformin AdvReac Intermediate Diarrhea Verified 04/21/25 23:48 duloxetine AdvReac Intermediate tachycardia Uncoded 04/21/25 23:48 Active Medications: Current Medications Acetaminophen (Acetaminophen 325 Mg Tablet) 975 mg PO Q6H PRN PRN Reason: Pain, Mild 1-3,fever,headache Albuterol Sulfate (Albuterol Sulfate (0.083%) 2.5 Mg/3 Ml Vial.Neb) 2.5 mg INHALE Q4H PRN PRN Reason: for wheezing Albuterol Sulfate (Albuterol Sulfate 90 Mcg 8 Gm Inhaler) 1 puff INHALE QID PRN PRN Reason: Shortness Of Breath Or Wheezing Amlodipine Besylate (Amlodipine Besylate 5 Mg Tablet) 5 mg PO BID [facility]; Protocol Aspirin (Aspirin Enteric Coated 81 Mg Tablet.) 81 mg PO DAILY [facility] Atorvastatin Calcium (Atorvastatin Calcium 80 Mg Tablet) 80 mg PO DAILY [place] Clonidine HCl (Clonidine Hcl 0.1 Mg Tablet) 0.1 mg PO BEDTIME [facility]; Protocol Clotrimazole (Clotrimazole 1 % Cream 15 Gm Tube) 1 appl TOPICAL BID [place]; Protocol Cyanocobalamin (Cyanocobalamin (Vitamin B-12) 1,000 Mcg Tablet) 1,000 mcg PO DAILY [facility] Dextrose (Dextrose 50 % 25 Gm/50 Ml Syringe) 25 gm IVPUSH Q15M PRN; Protocol PRN Reason: per Hypoglycemia Standing Ord. Enoxaparin Sodium (Enoxaparin Sodium 40 Mg/0.4 Ml Syringe) 40 mg SUBCUT Q24H [place] Last Admin: 04/22/25 09:24 Dose: 40 mg Fluticasone Propionate (Fluticasone Propionate Nasal 16 Gm [place]) 1 spray NOSTRIL-B BEDTIME [facility] Furosemide (Furosemide 20 Mg/2 Ml Vial) 20 mg IVPUSH BID@0900,1800 [place]; Protocol Glucose (Glucose Gel 15 Gm Gel..Gram.) 15 gm PO Q15M PRN; Protocol PRN Reason: per Hypoglycemia Standing Ord. Hydrochlorothiazide (Hydrochlorothiazide 12.5 Mg Tablet) 12.5 mg PO DAILY [facility]; Protocol Insulin Glargine (Insulin Glargine,Hum.Rec.Anlog 100 Unit/Ml 10 Ml Vial) 15 unit SUBCUT DAILY [facility] Insulin Human Lispro (Insulin Lispro 100 Unit/Ml 3 Ml Vial) 0 unit SUBCUT QIDACHS [facility]; Protocol Last Admin: 04/22/25 07:27 Dose: 2 unit Insulin Human Lispro (Insulin Lispro 100 Unit/Ml 3 Ml Vial) 5 unit SUBCUT QIDACHS [facility] Last Admin: 04/22/25 07:27 Dose: 5 unit Letrozole (Letrozole 2.5 Mg Tablet) 2.5 mg PO DAILY [facility] Levalbuterol HCl (Levalbuterol Hcl 1.25 Mg/3 Ml Vial.Neb) 1.25 mg INHALE Q3H PRN PRN Reason: wheezing Melatonin (Melatonin 3 Mg Tablet) 6 mg PO BEDTIME PRN PRN Reason: Insomnia Non-Formulary Medication (Umeclidinium-Vilanterol [Anoro Ellipta]) 1 inhalation INHALE DAILY [facility] Paroxetine HCl (Paroxetine Hcl 20 Mg Tablet) 20 mg PO DAILY [facility] Ropinirole HCl (Ropinirole Hcl 1 Mg Tablet) 1 mg PO BID [facility] Senna (Sennosides 8.6 Mg Tablet) 8.6 mg PO BID PRN PRN Reason: Constipation Sodium Chloride (0.9 % Sodium Chloride Flush 3 Ml Syringe) 3 ml IVFLUSH QSHIFT [facility] Last Admin: 04/22/25 09:19 Dose: 3 ml Vitamin D (Cholecalciferol (Vitamin D3) 25 Mcg Tablet) 50 mcg PO Q48H [facility] Home Medications ?Medication ?Instructions ?Recorded ?Confirmed ?Last Taken ?Type acetaminophen 325 mg capsule 325 mg PO QID PRN Pain 09/01/22 04/22/25 Unknown History cyanocobalamin (vitamin B-12) 1,000 mcg PO DAILY 09/04/22 04/22/25 04/21/25 History 1,000 mcg tablet ferrous sulfate 325 mg (65 mg 325 mg PO FR@0900 08/09/24 04/22/25 04/19/25 History iron) tablet (Iron (ferrous sulfate)) zinc gluconate 50 mg tablet 50 mg PO DAILY 08/09/24 04/22/25 04/21/25 History atorvastatin 80 mg tablet 80 mg PO DAILY 04/03/25 04/22/25 04/21/25 History cholecalciferol (vitamin D3) 50 50 mcg PO Q48H 04/03/25 04/22/25 04/20/25 History mcg (2,000 unit) capsule clotrimazole 1 % topical cream 1 appl topical BID PRN Fungal 04/03/25 04/22/25 Unknown History Infections insulin aspart U-100 100 unit/mL 10 - 20 unit subcut TIDAC 04/03/25 04/22/25 04/21/25 History (3 mL) subcutaneous pen (Novolog FlexPen U-100 Insulin aspart) ondansetron 4 mg disintegrating 4 mg PO Q8H PRN Nausea And Vomiting 04/03/25 04/22/25 Unknown History tablet sennosides 8.6 mg tablet (Senokot) 8.6 mg PO BID PRN Constipation 04/03/25 04/22/25 04/02/25 History solifenacin 5 mg tablet (Vesicare) 5 mg PO BEDTIME 04/03/25 04/22/25 04/20/25 History triamcinolone acetonide 0.1 % 1 appl topical DAILY PRN Itchy/Dry 04/03/25 04/22/25 Unknown History topical cream Skin dulaglutide 1.5 mg/0.5 mL 1.5 mg subcut FR 04/22/25 04/22/25 04/19/25 History subcutaneous pen injector (Trulicity) vibegron 75 mg tablet (Gemtesa) 75 mg PO DAILY 04/22/25 04/22/25 Unknown History Physical Exam 2 Vital Signs: Vital Signs: Last Vital Signs Temp 98.1 F 04/22/25 08:00 Pulse 104 H 04/22/25 11:03 Resp 22 H 04/22/25 11:03 BP 132/78 04/22/25 11:03 Pulse Ox 94 04/22/25 11:03 O2 Del Method Nasal Cannula 04/22/25 11:03 O2 Flow Rate 1 04/22/25 11:03 BMI result Body Mass Index 40.4 Const: General: no acute distress and alert Nutritional Appearance: not obese Orientation/consciousness: Other orientation findings ( oriented) HEENT: Head: Yes atraumatic Eyes: General: appearance normal, both eyes and all related structures S clerae: sclerae normal EOM: EOMs intact bilaterally Neck: Neck: Yes supple Lymphatic: no lymphadenopathy noted Resp: Effort & Inspection: normal respiratory effort and no use of accessory muscles Auscultation: crackles (Right-sided) Cardio: Rate: tachycardic Rhythm: regular rhythm Heart sounds: no gallops, no murmurs and no rubs GI: Palpation (GI): Soft to palpation and Other GI palpation findings present ( Nontender) Auscultation: normal bowel sounds Skin: General skin exam: other ( warm) Extrem: General: No clubbing, No cyanosis and No edema Results Laboratory Findings 04/22/25 03:50 04/22/25 03:50 ABG, PT/INR, D-dimer: PT/INR, D-dimer PT 11.6 SEC (10.9-12.4) 04/22/25 03:50 INR 1.0 (0.9-1.1) 04/22/25 03:50 Abnormal lab findings: Abnormal Labs 04/22/25 04/22/25 04/22/25 00:02 00:03 00:08 WBC 14.7 H Immature Gran % (Auto) 1.3 H Neut % (Auto) Lymph % (Auto) 17.0 L Abs Immat Gran (auto) 0.19 H Absolute Neuts (auto) 10.4 H Absolute Nucleated RBC 0.020 H Carbon Dioxide POC Glucose Random Glucose 308 H Lactic Acid 3.8 H* Lactic Acid F/U @ 2Hr Alkaline Phosphatase 127 H Lipase 6 L Urine Protein Urine Glucose (UA) Urine RBC Ur Oxycodone Screen 04/22/25 04/22/25 04/22/25 02:29 03:01 03:50 WBC 15.0 H Immature Gran % (Auto) 0.7 H Neut % (Auto) 80.8 H Lymph % (Auto) 11.2 L Abs Immat Gran (auto) 0.11 H Absolute Neuts (auto) 12.1 H Absolute Nucleated RBC 0.020 H Carbon Dioxide 21 L POC Glucose Random Glucose 329 H Lactic Acid Lactic Acid F/U @ 2Hr 2.4 H* Alkaline Phosphatase Lipase Urine Protein 100 (2+) H Urine Glucose (UA) >=1000 H Urine RBC 3-5 H Ur Oxycodone Screen Positive H 04/22/25 04/22/25 04:01 07:21 WBC Immature Gran % (Auto) Neut % (Auto) Lymph % (Auto) Abs Immat Gran (auto) Absolute Neuts (auto) Absolute Nucleated RBC Carbon Dioxide POC Glucose 337 H 188 H Random Glucose Lactic Acid Lactic Acid F/U @ 2Hr Alkaline Phosphatase Lipase Urine Protein Urine Glucose (UA) Urine RBC Ur Oxycodone Screen Assessment and Plan (1) Pleural effusion: Status: Resolved Plan Impression: 65-year-old lady with newly diagnosed metastatic breast cancer admitted with dyspnea. Chest x-ray demonstrates known right-sided pleural effusion with no recurrence of left-sided pleural effusion. Patient has borderline hypoxic with tachycardia and mild tachypnea. Recommendations: Agree with right-sided thoracentesis. Rule out pulmonary emboli. No evidence of recurrence of left-sided pleural effusion, would advise against PleurX placement at this time. Procedures Date of Service Date of Service: 04/22/25
[2025-04-22 11:41] LABS: Glucose, Whole Blood 235 mg/dL (60-115)
--- NOTE | 2025-04-22 11:44 | HO.WOUND ---
Wound Consult: Deferred to provider 65yr old femle admitted to [facility] on 04/22/25 01:32 - see H&P for details. Complex medical history noted. Photo and chart review completed along with photos uploaded below. The rash to bilateral feet is being treated by the Hospitalist with Clotrimazole twice a day with high suspicion of fungal invasion / dermatitis. Will defer to physician for continue topical treatments suspect fungal dermatitis should improve with continued use of topical antifungal. No topical recommendations needed from Inpt Wound Care Nurse. 04/22/25 00:02
[2025-04-22] MEDS: Cholecalciferol (Vitamin D3) 25 MCG TABLET 50 MCG PO (13:28)
[2025-04-22] MEDS: Clotrimazole 1 % Cream 15 GM TUBE 1 APPL TOPICAL ×2 (13:28→21:59)
[2025-04-22] MEDS: Morphine Sulfate 2 MG/ML CARTRIDGE IVPUSH ×3 (13:30→21:37)
--- NOTE | 2025-04-22 15:08 | PM.EVENT ---
Event Note Date of Service: 04/22/25 Event Note: seen and evaluated this morning Had right sided thoracentesis complicated with pain so a chest tube was placed denies fever or chills Pulm following IV Lasix wean O2 down as tolerated Time Spent With Patient Time: Total time managing care of this patient today ____ minutes.
[2025-04-22] MEDS: Famotidine 20 MG TABLET PO (15:41)
[2025-04-22] MEDS: Ibuprofen 400 MG TABLET PO (15:41)
[2025-04-22] MEDS: Acetaminophen 325 MG TABLET 975 MG PO ×2 (15:42→21:46)
[2025-04-22] MEDS: Benzonatate 100 MG CAPSULE PO ×2 (16:10→21:46)
[2025-04-22] MEDS: guaiFEN/Codeine SF 200/20/10ML 10 ML LIQUID PO (16:10)
[2025-04-22 16:21] LABS: Glucose, Whole Blood 231 mg/dL (60-115)
[2025-04-22 20:51] LABS: Glucose, Whole Blood 261 mg/dL (60-115)
[2025-04-22] MEDS: rOPINIRole HCL 1 MG TABLET PO (21:43)
[2025-04-22] MEDS: cloNIDine HCL 0.1 MG TABLET PO (21:46)
[2025-04-22] MEDS: amLODIPine Besylate 5 MG TABLET PO (21:46)
[2025-04-23] VITALS (9 sets, daily range): BP systolic 114–139; BP diastolic 60–85; PULSE 89–98; RESP 14–22; TEMP 35.9–36.8; O2SAT 93–95
[2025-04-23] MEDS: Morphine Sulfate 2 MG/ML CARTRIDGE IVPUSH ×4 (05:25→21:36)
[2025-04-23 05:49] LABS: MANUAL DIFF FLAG NO
[2025-04-23 05:55] LABS: Basophils Absolute Auto 0.1 X10*3/uL (0.0-0.2); Basophils Percent Auto 0.7 % (0-2); Eosinophils Absolute Auto 0.6 X10*3/uL (0.0-0.4); Eosinophils Percent Auto 4.3 % (0-4); Hemoglobin 13.8 g/dl (12.0-16.0); Imm Gran Abs Auto 0.13 X10*3/uL (0.00-0.03); Imm Gran Pct Auto 0.9 % (0.0-0.4); Lymphocytes Absolute Auto 2.7 X10*3/uL (1.2-4.9); Lymphocytes Percent Auto 19.7 % (20-40); Mean Corpuscular HGB Conc 32.9 g/dl (31.0-35.0); Mean Corpuscular Hemoglobin 30.3 pg (27.0-33.0); Mean Corpuscular Volume 92.3 fL (80.0-98.0); Mean Platelet Volume 10.2 fL (9.4-12.3); Monocytes Absolute Auto 1.2 X10*3/uL (0.1-1.2); Monocytes Percent Auto 8.6 % (2-11); Neutrophils Absolute Auto 9.1 x10*3/uL (2.0-8.3); Neutrophils Percent Auto 65.8 % (45-73); Platelet Count 279 X10*3/uL (160-400); Red Blood Count 4.55 X10*6/uL (4.20-5.50); Red Cell Distribution Width 14.2 % (11.0-16.0); White Blood Count 13.8 X10*3/uL (4.8-10.8)
[2025-04-23 06:12] LABS: Anion Gap 15 (12-20); Blood Urea Nitrogen 22 mg/dL (9-16); Carbon Dioxide 24 mmol/L (22-29); Chloride 105 mmol/L (96-108); Creatinine Clr Calc Pharmacy 69.1; Estimated Glomerular Filt Rate > 60; Glucose Random 226 mg/dL (60-115); Potassium 4.8 mmol/L (3.3-5.1); Sodium 139 mmol/L (135-145)
[2025-04-23 07:31] LABS: Glucose, Whole Blood 220 mg/dL (60-115)
[2025-04-23] MEDS: Insulin Lispro 100 UNIT/ML 3 ML VIAL SUBCUT ×6 (07:51→21:41)
[2025-04-23] MEDS: Furosemide 20 MG/2 ML VIAL IVPUSH ×2 (07:51→17:31)
[2025-04-23] MEDS: Insulin Glargine,Hum.rec.anlog 100 UNIT/ML 10 ML VIAL 15 UNIT SUBCUT (07:51)
[2025-04-23] MEDS: Cyanocobalamin (Vitamin B-12) 1,000 MCG TABLET 1000 MCG PO (07:52)
[2025-04-23] MEDS: hydroCHLOROthiazide 12.5 MG TABLET PO (07:52)
[2025-04-23] MEDS: Benzonatate 100 MG CAPSULE PO ×3 (07:52→21:37)
[2025-04-23] MEDS: Atorvastatin Calcium 80 MG TABLET PO (07:52)
[2025-04-23] MEDS: Famotidine 20 MG TABLET PO (07:52)
[2025-04-23] MEDS: amLODIPine Besylate 5 MG TABLET PO ×2 (07:52→21:37)
[2025-04-23] MEDS: Acetaminophen 325 MG TABLET 975 MG PO ×3 (07:53→21:39)
[2025-04-23] MEDS: PARoxetine HCL 20 MG TABLET PO (07:53)
[2025-04-23] MEDS: rOPINIRole HCL 1 MG TABLET PO ×2 (07:53→21:39)
[2025-04-23] MEDS: Letrozole 2.5 MG TABLET PO (07:56)
[2025-04-23] MEDS: 0.9 % Sodium Chloride Flush 3 ML SYRINGE IVFLUSH ×2 (07:56→15:28)
[2025-04-23] MEDS: Aspirin Enteric Coated 81 MG TABLET.DR PO (07:58)
[2025-04-23] MEDS: Ibuprofen 400 MG TABLET PO ×2 (07:58→15:27)
[2025-04-23] MEDS: Enoxaparin Sodium 40 MG/0.4 ML SYRINGE SUBCUT (07:59)
[2025-04-23 11:19] LABS: Glucose, Whole Blood 204 mg/dL (60-115)
[2025-04-23] MEDS: Clotrimazole 1 % Cream 15 GM TUBE 1 APPL TOPICAL ×2 (11:30→21:39)
--- NOTE | 2025-04-23 12:39 | P.PNIM_ITS ---
Subjective Subjective Date of Service: 04/23/25 Interval History: seen and evaluated small amount of drainage from right sided pigtail on O2 supplement no other event Review of Systems Review of Systems: Yes all other systems are reviewed and are negative Physical Exam 2 Vital Signs: Vital Signs: Last Vital Signs Temp 96.8 F 04/23/25 11:34 Pulse 89 04/23/25 11:34 Resp 14 04/23/25 11:34 BP 125/61 04/23/25 11:34 Pulse Ox 95 04/23/25 11:34 O2 Del Method Nasal Cannula 04/23/25 11:34 O2 Flow Rate 1 04/23/25 11:34 BMI result Body Mass Index 40.4 Const: Other: Constitutional : interactive, not in distress Cardiovascular : no JVP, no lower extremity edema Respiratory : bilateral chest movement, not in resp distress , chest tube right lung with blood fluid drainage from right lung Gastrointestinal: soft, lax, Non tender Skin : Warm, Dry Neurological : Alert & oriented , No focal deficit Objective Data Active Medications Acetaminophen (Acetaminophen 325 Mg Tablet) 975 mg PO TID [facility] Last Admin: 04/23/25 07:53 Dose: 975 mg Documented By: RADHA Albuterol Sulfate (Albuterol Sulfate (0.083%) 2.5 Mg/3 Ml Vial.Neb) 2.5 mg INHALE Q4H PRN PRN Reason: for wheezing Albuterol Sulfate (Albuterol Sulfate 90 Mcg 8 Gm Inhaler) 1 puff INHALE QID PRN PRN Reason: Shortness Of Breath Or Wheezing Amlodipine Besylate (Amlodipine Besylate 5 Mg Tablet) 5 mg PO BID [facility]; Protocol Last Admin: 04/23/25 07:52 Dose: 5 mg Documented By: RADHA Aspirin (Aspirin Enteric Coated 81 Mg Tablet.) 81 mg PO DAILY [facility] Last Admin: 04/23/25 07:58 Dose: 81 mg Documented By: RADHA Atorvastatin Calcium (Atorvastatin Calcium 80 Mg Tablet) 80 mg PO DAILY [facility] Last Admin: 04/23/25 07:52 Dose: 80 mg Documented By: RADHA Benzonatate (Benzonatate 100 Mg Capsule) 100 mg PO TID [facility] Last Admin: 04/23/25 07:52 Dose: 100 mg Documented By: RADHA Clonidine HCl (Clonidine Hcl 0.1 Mg Tablet) 0.1 mg PO BEDTIME [facility]; Protocol Last Admin: 04/22/25 21:46 Dose: 0.1 mg Documented By: PINO Clotrimazole (Clotrimazole 1 % Cream 15 Gm Tube) 1 appl TOPICAL BID [facility]; Protocol Last Admin: 04/23/25 11:30 Dose: 1 appl Documented By: RADHA Cyanocobalamin (Cyanocobalamin (Vitamin B-12) 1,000 Mcg Tablet) 1,000 mcg PO DAILY [facility] Last Admin: 04/23/25 07:52 Dose: 1,000 mcg Documented By: RADHA Dextrose (Dextrose 50 % 25 Gm/50 Ml Syringe) 25 gm IVPUSH Q15M PRN; Protocol PRN Reason: per Hypoglycemia Standing Ord. Enoxaparin Sodium (Enoxaparin Sodium 40 Mg/0.4 Ml Syringe) 40 mg SUBCUT Q24H [facility] Last Admin: 04/23/25 07:59 Dose: 40 mg Documented By: RADHA Famotidine (Famotidine 20 Mg Tablet) 20 mg PO DAILY [facility] Last Admin: 04/23/25 07:52 Dose: 20 mg Documented By: RADHA Fluticasone Propionate (Fluticasone Propionate Nasal 16 Gm [place]) 1 spray NOSTRIL-B BEDTIME [facility] Last Admin: 04/22/25 21:59 Dose: Not Given Documented By: PINO Non-Admin Reason: Med Not Available Furosemide (Furosemide 20 Mg/2 Ml Vial) 20 mg IVPUSH BID@0900,1800 [facility]; Protocol Last Admin: 04/23/25 07:51 Dose: 20 mg Documented By: RADHA Glucose (Glucose Gel 15 Gm Gel..Gram.) 15 gm PO Q15M PRN; Protocol PRN Reason: per Hypoglycemia Standing Ord. Guaifenesin/Codeine Phosphate (Guaifen/Codeine Sf 200/20/10ml 10 Ml Liquid) 10 ml PO Q4H PRN PRN Reason: Cough Last Admin: 04/22/25 16:10 Dose: 10 ml Documented By: MANFRED Hydrochlorothiazide (Hydrochlorothiazide 12.5 Mg Tablet) 12.5 mg PO DAILY [facility]; Protocol Last Admin: 04/23/25 07:52 Dose: 12.5 mg Documented By: RADHA Ibuprofen (Ibuprofen 400 Mg Tablet) 400 mg PO QSHIFT [facility] Last Admin: 04/23/25 07:58 Dose: 400 mg Documented By: RADHA Insulin Glargine (Insulin Glargine,Hum.Rec.Anlog 100 Unit/Ml 10 Ml Vial) 15 unit SUBCUT DAILY [facility] Last Admin: 04/23/25 07:51 Dose: 15 unit Documented By: RADHA Insulin Human Lispro (Insulin Lispro 100 Unit/Ml 3 Ml Vial) [facility] Protocol Last Admin: 04/23/25 11:30 Dose: 4 unit Documented By: RADHA Insulin Human Lispro (Insulin Lispro 100 Unit/Ml 3 Ml Vial) [facility] Last Admin: 04/23/25 11:30 Dose: 5 unit Documented By: RADHA Letrozole (Letrozole 2.5 Mg Tablet) 2.5 mg PO DAILY [facility] Last Admin: 04/23/25 07:56 Dose: 2.5 mg Documented By: RADHA Levalbuterol HCl (Levalbuterol Hcl 1.25 Mg/3 Ml Vial.Neb) 1.25 mg INHALE Q3H PRN PRN Reason: wheezing Melatonin (Melatonin 3 Mg Tablet) 6 mg PO BEDTIME PRN PRN Reason: Insomnia Morphine Sulfate (Morphine Sulfate 2 Mg/Ml Cartridge) 2 mg IVPUSH Q3H PRN; Protocol PRN Reason: Pain, Severe (Pain Scale 7-10) Last Admin: 04/23/25 11:31 Dose: 2 mg Documented By: RADHA Non-Formulary Medication (Umeclidinium-Vilanterol [Anoro Ellipta]) 1 inhalation INHALE DAILY [facility] Paroxetine HCl (Paroxetine Hcl 20 Mg Tablet) 20 mg PO DAILY [facility] Last Admin: 04/23/25 07:53 Dose: 20 mg Documented By: RADHA Ropinirole HCl (Ropinirole Hcl 1 Mg Tablet) 1 mg PO BID [facility] Last Admin: 04/23/25 07:53 Dose: 1 mg Documented By: RADHA Senna (Sennosides 8.6 Mg Tablet) 8.6 mg PO BID PRN PRN Reason: Constipation Sodium Chloride (0.9 % Sodium Chloride Flush 3 Ml Syringe) 3 ml IVFLUSH QSHIFT [facility] Last Admin: 04/23/25 07:56 Dose: 3 ml Documented By: RADHA Vitamin D (Cholecalciferol (Vitamin D3) 25 Mcg Tablet) 50 mcg PO Q48H [facility] Last Admin: 04/22/25 13:28 Dose: 50 mcg Documented By: MANFRED Labs 04/23/25 05:25 04/23/25 05:25 Labs: Laboratory Results - last 24 hr 04/22/25 04/22/25 04/23/25 16:09 20:40 05:25 MCV 92.3 MCH 30.3 MCHC 32.9 RDW 14.2 Plt Count 279 MPV 10.2 Immature Gran % (Auto) 0.9 H Neut % (Auto) 65.8 Lymph % (Auto) 19.7 L [place] % (Auto) 8.6 Eos % (Auto) 4.3 H Baso % (Auto) 0.7 Lymph # (Auto) 2.7 [place] # (Auto) 1.2 Eos # (Auto) 0.6 H Baso # (Auto) 0.1 Abs Immat Gran (auto) 0.13 H Absolute Neuts (auto) 9.1 H Absolute Nucleated RBC 0.000 Nucleated RBC % (auto) 0.0 Anion Gap 15 Estim Creat Clear Calc 69.1 Estimated GFR > 60 POC Glucose 231 H 261 H Random Glucose 226 H Calcium 10.0 04/23/25 04/23/25 07:10 11:14 MCV MCH MCHC RDW Plt Count MPV Immature Gran % (Auto) Neut % (Auto) Lymph % (Auto) [place] % (Auto) Eos % (Auto) Baso % (Auto) Lymph # (Auto) [place] # (Auto) Eos # (Auto) Baso # (Auto) Abs Immat Gran (auto) Absolute Neuts (auto) Absolute Nucleated RBC Nucleated RBC % (auto) Anion Gap Estim Creat Clear Calc Estimated GFR POC Glucose 220 H 204 H Random Glucose Calcium Microbiology Microbiology Results: Microbiology 04/22/25 00:10 Blood Culture - Preliminary Blood - Venous No growth after 24 hours. 04/22/25 00:04 Blood Culture - Preliminary Blood - Venous No growth after 24 hours. Assessment and Plan (1) Acute on chronic diastolic CHF (congestive heart failure): Status: Acute (2) Recurrent pleural effusion: Status: Acute (3) Malignant pleural effusion: Status: Acute (4) Acute lactic acidosis: Status: Acute Plan Sarah Ervin is a 65 y/o woman with PMHx significant for breast CA s/p left mastectomy admitted with: Bilateral pleural effusions 2/2 Malignant with acute on chronic diastolic CHF in the setting of underlying COPD Pulse oximetry. Supplemental oxygen Lasix 20 mg bid Dilaudid 0.5 mg to decrease work of breathing IR placed right-sided ultrasound-guided thoracentesis and chest tube placement Bronchodilator therapy as needed for wheezing (Xopenex) Elevated D-dimer Daily weight. Low-salt diet. Pulm input appreciated, eval for PE, thora Acute lactic acidosis secondary to hypoxemia and albuterol; trended down (3.8--> 2.4) not due to sepsis Type 2 diabetes mellitus Diabetic diet Insulin sliding scale and Lantus. Nicotine dependence. Tobacco cessation education. Essential hypertension. Continue amlodipine and clonidine. Hydrochlorothiazide on hold as the patient will be receiving furosemide. Hyperlipidemia. Continue statin. Restless leg syndrome. Continue ropiniole. Mood disorder. Continue paroxetine. Breast CA s/p left mastectomy. Continue Letrozole. Obesity. class II. BMI 39.7 kg/m2. Bilateral foot rash. Possible fungal infection (see pics on physical exam). Clotrimazole cream b.i.d. to affected areas. DVT prophylaxis: Lovenox Code status: Full. Patient will need hospitalization for overnight for respiratory failure secondary to pleural effusions and acute CHF treatment with supplemental oxygen, IV diuretic therapy, bronchodilator therapy and pulmonology follow up on chest tube Quality Stroke Does the patient have a stroke diagnosis?: No VTE Prior VTE?: No VTE Risk Level:: Medical - moderate - high VTE Device Contraindication: Treatment Not Indicated VTE Drug Contraindication: N/A - Med Ordered
[2025-04-23 16:46] LABS: Glucose, Whole Blood 109 mg/dL (60-115)
--- NOTE | 2025-04-23 17:26 | P.CDIM_ITS ---
PROVIDER RESPONSE TEXT: To clarify, the appropriate diagnosis supported by the clinical indicators: Respiratory failure with hypoxia: acute QUERY TEXT: PHYSICIAN'S DOCUMENTATION REQUEST Date of Query: 04/23/2025 02:21 PM EDT Patient Name: Sarah Ervin Admit Date: 04/22/2025 Dear Srinath Cotto MD, A review of the medical record indicates additional documentation may be needed. Please review below and update the documentation accordingly. Respiratory failure was documented on (insert date). Clinical Indicators: respiratory rate 26 88% SAT, hypoxemia shortness of breath Oxygen at 1L flow rate NC diagnosis respiratory failure If possible, please further clarify the type and acuity of respiratory failure: Respiratory failure with hypoxia Please specify acuity as Acute, Chronic, or Acute on chronic if known Respiratory failure with hypercapnia Please specify acuity as Acute, Chronic, or Acute on chronic if known Respiratory failure with hypoxia and hypercapnia Please specify acuity as Acute, Chronic, or Acute on chronic if known Other (explain) Clinically unable to determine (explain) Thank you, Jasmin Gibbs RN Use of terms such as suspected, likely, concern for, or probable (associated with a specific diagnosi s that is being evaluated, monitored, or treated as if it exists) are acceptable and can be coded in the inpatient se tting, when documented at the time of discharge. Please use your independent medical judgment in providing your response. THIS QUERY IS PART OF THE PERMANENT MEDICAL RECORD
[2025-04-23 17:43] LABS: D Dimer High Sensitivity 764 NG/ML
[2025-04-23 20:47] LABS: Glucose, Whole Blood 231 mg/dL (60-115)
[2025-04-23] MEDS: cloNIDine HCL 0.1 MG TABLET PO (21:39)
[2025-04-23] MEDS: Fluticasone Propionate Nasal 16 GM SPRAY 1 SPRAY NOSTRIL-B (21:40)
[2025-04-24] VITALS (9 sets, daily range): BP systolic 115–146; BP diastolic 56–76; PULSE 83–108; RESP 16–20; TEMP 36.2–36.7; O2SAT 91–97
[2025-04-24] MEDS: Ibuprofen 400 MG TABLET PO ×4 (00:43→23:13)
[2025-04-24] MEDS: Morphine Sulfate 2 MG/ML CARTRIDGE IVPUSH ×3 (00:45→12:37)
[2025-04-24] MEDS: 0.9 % Sodium Chloride Flush 3 ML SYRINGE IVFLUSH ×4 (00:45→23:13)
[2025-04-24 07:50] LABS: Glucose, Whole Blood 221 mg/dL (60-115)
[2025-04-24] MEDS: Insulin Lispro 100 UNIT/ML 3 ML VIAL SUBCUT ×7 (08:20→20:41)
[2025-04-24] MEDS: Furosemide 20 MG/2 ML VIAL IVPUSH (08:20)
[2025-04-24] MEDS: Letrozole 2.5 MG TABLET PO (08:21)
[2025-04-24] MEDS: Insulin Glargine,Hum.rec.anlog 100 UNIT/ML 10 ML VIAL 15 UNIT SUBCUT (08:21)
[2025-04-24] MEDS: Acetaminophen 325 MG TABLET 975 MG PO ×3 (08:21→19:54)
[2025-04-24] MEDS: hydroCHLOROthiazide 12.5 MG TABLET PO (08:22)
[2025-04-24] MEDS: rOPINIRole HCL 1 MG TABLET PO ×2 (08:22→19:53)
[2025-04-24] MEDS: Benzonatate 100 MG CAPSULE PO ×3 (08:22→19:53)
[2025-04-24] MEDS: PARoxetine HCL 20 MG TABLET PO (08:22)
[2025-04-24] MEDS: Cyanocobalamin (Vitamin B-12) 1,000 MCG TABLET 1000 MCG PO (08:22)
[2025-04-24] MEDS: Atorvastatin Calcium 80 MG TABLET PO (08:22)
[2025-04-24] MEDS: amLODIPine Besylate 5 MG TABLET PO ×2 (08:22→19:53)
[2025-04-24] MEDS: Famotidine 20 MG TABLET PO (08:23)
[2025-04-24] MEDS: Enoxaparin Sodium 40 MG/0.4 ML SYRINGE SUBCUT (08:23)
[2025-04-24] MEDS: Clotrimazole 1 % Cream 15 GM TUBE 1 APPL TOPICAL ×2 (08:23→19:57)
[2025-04-24] MEDS: Aspirin Enteric Coated 81 MG TABLET.DR PO (08:23)
[2025-04-24] MEDS: Albuterol Sulfate (0.083%) 2.5 MG/3 ML VIAL.NEB INHALE (10:15)
--- NOTE | 2025-04-24 11:37 | P.PNIM_ITS ---
Subjective Subjective Date of Service: 04/24/25 Interval History: seen and evaluated small amount of drainage from right sided pigtail on O2 supplement, drops to early 80s with minimal exertion no other event Review of Systems Review of Systems: Yes all other systems are reviewed and are negative Physical Exam 2 Vital Signs: Vital Signs: Last Vital Signs Temp 97.4 F 04/24/25 11:05 Pulse 96 04/24/25 11:05 Resp 20 04/24/25 11:05 BP 115/56 L 04/24/25 11:05 Pulse Ox 96 04/24/25 11:05 O2 Del Method Room Air 04/24/25 11:05 O2 Flow Rate 1 04/24/25 07:51 BMI result Body Mass Index 40.4 Const: Other: Constitutional : interactive, not in distress Cardiovascular : no JVP, no lower extremity edema Respiratory : bilateral chest movement, not in resp distress , chest tube right lung with bloody-tinged fluid drainage from right lung , On O2 supplement Gastrointestinal: soft, lax, Non tender Skin : Warm, Dry Neurological : Alert & oriented , No focal deficit Objective Data Active Medications Acetaminophen (Acetaminophen 325 Mg Tablet) 975 mg PO TID [facility] Last Admin: 04/24/25 08:21 Dose: 975 mg Documented By: RADHA Albuterol Sulfate (Albuterol Sulfate (0.083%) 2.5 Mg/3 Ml Vial.Neb) 2.5 mg INHALE Q4H PRN PRN Reason: for wheezing Last Admin: 04/24/25 10:15 Dose: 2.5 mg Documented By: RHYS Albuterol Sulfate (Albuterol Sulfate 90 Mcg 8 Gm Inhaler) 1 puff INHALE QID PRN PRN Reason: Shortness Of Breath Or Wheezing Amlodipine Besylate (Amlodipine Besylate 5 Mg Tablet) 5 mg PO BID [facility]; Protocol Last Admin: 04/24/25 08:22 Dose: 5 mg Documented By: RADHA Aspirin (Aspirin Enteric Coated 81 Mg Tablet.) 81 mg PO DAILY [facility] Last Admin: 04/24/25 08:23 Dose: 81 mg Documented By: RADHA Atorvastatin Calcium (Atorvastatin Calcium 80 Mg Tablet) 80 mg PO DAILY [facility] Last Admin: 04/24/25 08:22 Dose: 80 mg Documented By: RADHA Benzonatate (Benzonatate 100 Mg Capsule) 100 mg PO TID [facility] Last Admin: 04/24/25 08:22 Dose: 100 mg Documented By: RADHA Clonidine HCl (Clonidine Hcl 0.1 Mg Tablet) 0.1 mg PO BEDTIME [facility]; Protocol Last Admin: 04/23/25 21:39 Dose: 0.1 mg Documented By: DALILA Clotrimazole (Clotrimazole 1 % Cream 15 Gm Tube) 1 appl TOPICAL BID [facility]; Protocol Last Admin: 04/24/25 08:23 Dose: 1 appl Documented By: RADHA Cyanocobalamin (Cyanocobalamin (Vitamin B-12) 1,000 Mcg Tablet) 1,000 mcg PO DAILY [facility] Last Admin: 04/24/25 08:22 Dose: 1,000 mcg Documented By: RADHA Dextrose (Dextrose 50 % 25 Gm/50 Ml Syringe) 25 gm IVPUSH Q15M PRN; Protocol PRN Reason: per Hypoglycemia Standing Ord. Enoxaparin Sodium (Enoxaparin Sodium 40 Mg/0.4 Ml Syringe) 40 mg SUBCUT Q24H [facility] Last Admin: 04/24/25 08:23 Dose: 40 mg Documented By: RADHA Famotidine (Famotidine 20 Mg Tablet) 20 mg PO DAILY [facility] Last Admin: 04/24/25 08:23 Dose: 20 mg Documented By: RADHA Fluticasone Propionate (Fluticasone Propionate Nasal 16 Gm Watson) 1 spray NOSTRIL-B BEDTIME [facility] Last Admin: 04/23/25 21:40 Dose: 1 spray Documented By: DALILA Furosemide (Furosemide 20 Mg/2 Ml Vial) 20 mg IVPUSH BID@0900,1800 [facility]; Protocol Last Admin: 04/24/25 08:20 Dose: 20 mg Documented By: RADHA Glucose (Glucose Gel 15 Gm Gel..Gram.) 15 gm PO Q15M PRN; Protocol PRN Reason: per Hypoglycemia Standing Ord. Guaifenesin/Codeine Phosphate (Guaifen/Codeine Sf 200/20/10ml 10 Ml Liquid) 10 ml PO Q4H PRN PRN Reason: Cough Last Admin: 04/22/25 16:10 Dose: 10 ml Documented By: MANFRED Hydrochlorothiazide (Hydrochlorothiazide 12.5 Mg Tablet) 12.5 mg PO DAILY [facility]; Protocol Last Admin: 04/24/25 08:22 Dose: 12.5 mg Documented By: RADHA Ibuprofen (Ibuprofen 400 Mg Tablet) 400 mg PO QSHIFT [facility] Last Admin: 04/24/25 08:22 Dose: 400 mg Documented By: RADHA Insulin Glargine (Insulin Glargine,Hum.Rec.Anlog 100 Unit/Ml 10 Ml Vial) 15 unit SUBCUT DAILY [facility] Last Admin: 04/24/25 08:21 Dose: 15 unit Documented By: RADHA Insulin Human Lispro (Insulin Lispro 100 Unit/Ml 3 Ml Vial) [facility] Protocol Last Admin: 04/24/25 08:20 Dose: 4 unit Documented By: RADHA Insulin Human Lispro (Insulin Lispro 100 Unit/Ml 3 Ml Vial) [facility] Last Admin: 04/24/25 08:21 Dose: 5 unit Documented By: RADHA Letrozole (Letrozole 2.5 Mg Tablet) 2.5 mg PO DAILY [facility] Last Admin: 04/24/25 08:21 Dose: 2.5 mg Documented By: RADHA Levalbuterol HCl (Levalbuterol Hcl 1.25 Mg/3 Ml Vial.Neb) 1.25 mg INHALE Q3H PRN PRN Reason: wheezing Melatonin (Melatonin 3 Mg Tablet) 6 mg PO BEDTIME PRN PRN Reason: Insomnia Morphine Sulfate (Morphine Sulfate 2 Mg/Ml Cartridge) 2 mg IVPUSH Q3H PRN; Protocol PRN Reason: Pain, Severe (Pain Scale 7-10) Last Admin: 04/24/25 04:24 Dose: 2 mg Documented By: EBONY-DESSK Non-Formulary Medication (Umeclidinium-Vilanterol [Anoro Ellipta]) 1 inhalation INHALE DAILY [facility] Paroxetine HCl (Paroxetine Hcl 20 Mg Tablet) 20 mg PO DAILY [facility] Last Admin: 04/24/25 08:22 Dose: 20 mg Documented By: RADHA Ropinirole HCl (Ropinirole Hcl 1 Mg Tablet) 1 mg PO BID [facility] Last Admin: 04/24/25 08:22 Dose: 1 mg Documented By: RADHA Senna (Sennosides 8.6 Mg Tablet) 8.6 mg PO BID PRN PRN Reason: Constipation Sodium Chloride (0.9 % Sodium Chloride Flush 3 Ml Syringe) 3 ml IVFLUSH QSHIFT [facility] Last Admin: 04/24/25 08:23 Dose: 3 ml Documented By: RADHA Vitamin D (Cholecalciferol (Vitamin D3) 25 Mcg Tablet) 50 mcg PO Q48H [facility] Last Admin: 04/22/25 13:28 Dose: 50 mcg Documented By: MANFRED Labs 04/23/25 05:25 04/23/25 05:25 Labs: Laboratory Results - last 24 hr 04/23/25 04/23/25 04/23/25 16:12 17:11 20:29 D-Dimer High Sensitivty 764 POC Glucose 109 231 H 04/24/25 07:44 D-Dimer High Sensitivty POC Glucose 221 H Microbiology Microbiology Results: Microbiology 04/22/25 00:10 Blood Culture - Preliminary Blood - Venous No growth after 48 hours. 04/22/25 00:04 Blood Culture - Preliminary Blood - Venous No growth after 48 hours. Assessment and Plan (1) Acute lactic acidosis: Status: Acute (2) Acute on chronic diastolic CHF (congestive heart failure): Status: Acute (3) Maculopapular rash, localized: Status: Acute (4) Recurrent pleural effusion: Status: Acute (5) Malignant pleural effusion: Status: Acute (6) Acute respiratory failure with hypoxia: Status: Acute Plan Sarah Ervin is a 65 y/o woman with PMHx significant for breast CA s/p left mastectomy admitted with: Acute hypoxic respiratory failure 2/2 Bilateral pleural effusions from Malignant with acute on chronic diastolic CHF in the setting of underlying COPD Rt > Lt IR placed right-sided ultrasound-guided thoracentesis and chest tube placement; overnight less than 20 cc Patient still dyspneic with minimal exertion and drops to 80s Continue Lasix 20 mg bid Elevated D-dimer; To check CTA chest Dilaudid 0.5 mg to decrease work of breathing Bronchodilator for wheezing (Xopenex) Daily weight. Low-salt diet. Pulm input following, plan to remove Tube today Acute lactic acidosis secondary to hypoxemia and albuterol; trended down (3.8--> 2.4) not due to sepsis Type 2 diabetes mellitus Diabetic diet Insulin sliding scale and Lantus. Nicotine dependence. Tobacco cessation education. Essential hypertension. Continue amlodipine and clonidine. Hydrochlorothiazide on hold as the patient will be receiving furosemide. Hyperlipidemia. Continue statin. Restless leg syndrome. Continue ropiniole. Mood disorder. Continue paroxetine. Breast CA s/p left mastectomy. Continue Letrozole. Obesity. class II. BMI 39.7 kg/m2. Bilateral foot rash. Possible fungal infection. Clotrimazole cream b.i.d. to affected areas. DVT prophylaxis: Lovenox Code status: Full. Patient will need hospitalization for overnight for respiratory failure secondary to pleural effusions and acute CHF treatment with supplemental oxygen, IV diuretic therapy, bronchodilator therapy and pulmonology follow up on chest tube pending CTA for PE evaluation Quality Stroke Does the patient have a stroke diagnosis?: No VTE Prior VTE?: No VTE Risk Level:: Medical - moderate - high VTE Device Contraindication: Treatment Not Indicated VTE Drug Contraindication: N/A - Med Ordered
--- NOTE | 2025-04-24 11:38 | MHC.CM.PN ---
Per ROUNDS discussion, Patient is not yet medically cleared for dc (Chest Tube); Patient may benefit from a PT Eval to assist with disposition. CM will follow.
[2025-04-24 12:11] LABS: Glucose, Whole Blood 229 mg/dL (60-115)
[2025-04-24] MEDS: iohexoL 350 MG/ML 100 ML INFUS..BTL IV (12:16)
[2025-04-24] MEDS: Cholecalciferol (Vitamin D3) 25 MCG TABLET 50 MCG PO (12:36)
[2025-04-24] MEDS: Azithromycin 500 MG in 0.9 % Sodium Chloride 250 ML 125 MG IV (15:40)
[2025-04-24] MEDS: cefTRIAXone sodium 1 GM VIAL IVPUSH (15:40)
[2025-04-24 16:08] LABS: Glucose, Whole Blood 144 mg/dL (60-115)
[2025-04-24] MEDS: Furosemide 20 MG/2 ML VIAL 40 MG IVPUSH (16:50)
[2025-04-24] MEDS: cloNIDine HCL 0.1 MG TABLET PO (19:53)
[2025-04-24] MEDS: Fluticasone Propionate Nasal 16 GM SPRAY 1 SPRAY NOSTRIL-B (19:57)
[2025-04-24 20:15] LABS: Glucose, Whole Blood 217 mg/dL (60-115)
[2025-04-25] MEDS: Morphine Sulfate 2 MG/ML CARTRIDGE IVPUSH (03:17)
[2025-04-25 03:42] VITALS: BP 121/56; PULSE 84; RESP 16; TEMP 36.7; O2SAT 92
[2025-04-25 05:45] VITALS: PULSE 87; RESP 20; O2SAT 94
[2025-04-25] MEDS: Albuterol Sulfate (0.083%) 2.5 MG/3 ML VIAL.NEB INHALE (05:46)
[2025-04-25 06:51] LABS: MANUAL DIFF FLAG NO
[2025-04-25 06:59] LABS: Basophils Absolute Auto 0.1 X10*3/uL (0.0-0.2); Basophils Percent Auto 0.9 % (0-2); Eosinophils Absolute Auto 0.5 X10*3/uL (0.0-0.4); Eosinophils Percent Auto 5.6 % (0-4); Hematocrit 37.8 % (37.0-47.0); Hemoglobin 12.5 g/dl (12.0-16.0); Imm Gran Abs Auto 0.09 X10*3/uL (0.00-0.03); Imm Gran Pct Auto 0.9 % (0.0-0.4); Lymphocytes Absolute Auto 2.2 X10*3/uL (1.2-4.9); Lymphocytes Percent Auto 22.4 % (20-40); Mean Corpuscular HGB Conc 33.1 g/dl (31.0-35.0); Mean Corpuscular Volume 90.9 fL (80.0-98.0); Mean Platelet Volume 10.2 fL (9.4-12.3); Monocytes Absolute Auto 0.9 X10*3/uL (0.1-1.2); Monocytes Percent Auto 8.8 % (2-11); Neutrophils Absolute Auto 5.9 x10*3/uL (2.0-8.3); Neutrophils Percent Auto 61.4 % (45-73); Platelet Count 275 X10*3/uL (160-400); Red Blood Count 4.16 X10*6/uL (4.20-5.50); Red Cell Distribution Width 13.6 % (11.0-16.0); White Blood Count 9.6 X10*3/uL (4.8-10.8)
[2025-04-25 07:05] VITALS: BP 121/72; PULSE 92; RESP 18; TEMP 37.2; O2SAT 92
[2025-04-25 07:16] LABS: Anion Gap 13 (12-20); Blood Urea Nitrogen 24 mg/dL (9-16); Calcium 9.4 mg/dL (8.4-10.2); Carbon Dioxide 26 mmol/L (22-29); Chloride 105 mmol/L (96-108); Creatinine Clr Calc Pharmacy 99.9; Estimated Glomerular Filt Rate > 60; Glucose Random 206 mg/dL (60-115); Potassium 3.2 mmol/L (3.3-5.1); Sodium 141 mmol/L (135-145)
[2025-04-25 07:22] LABS: Glucose, Whole Blood 216 mg/dL (60-115)
[2025-04-25] MEDS: Ibuprofen 400 MG TABLET PO (07:52)
[2025-04-25] MEDS: 0.9 % Sodium Chloride Flush 3 ML SYRINGE IVFLUSH (07:53)
[2025-04-25] MEDS: Furosemide 20 MG/2 ML VIAL 40 MG IVPUSH (07:54)
[2025-04-25] MEDS: Atorvastatin Calcium 80 MG TABLET PO (07:54)
[2025-04-25] MEDS: hydroCHLOROthiazide 12.5 MG TABLET PO (07:55)
[2025-04-25] MEDS: Enoxaparin Sodium 40 MG/0.4 ML SYRINGE SUBCUT (07:55)
[2025-04-25] MEDS: Letrozole 2.5 MG TABLET PO (07:55)
[2025-04-25] MEDS: PARoxetine HCL 20 MG TABLET PO (07:56)
[2025-04-25] MEDS: Aspirin Enteric Coated 81 MG TABLET.DR PO (07:56)
[2025-04-25] MEDS: Benzonatate 100 MG CAPSULE PO (07:56)
[2025-04-25] MEDS: amLODIPine Besylate 5 MG TABLET PO (07:56)
[2025-04-25] MEDS: Potassium Chloride ER 20 MEQ TAB.ER.PRT 40 MEQ PO (07:56)
[2025-04-25] MEDS: rOPINIRole HCL 1 MG TABLET PO (07:56)
[2025-04-25] MEDS: Famotidine 20 MG TABLET PO (07:56)
[2025-04-25] MEDS: Cyanocobalamin (Vitamin B-12) 1,000 MCG TABLET 1000 MCG PO (07:56)
[2025-04-25] MEDS: Insulin Lispro 100 UNIT/ML 3 ML VIAL SUBCUT ×4 (07:57→11:55)
[2025-04-25] MEDS: Insulin Glargine,Hum.rec.anlog 100 UNIT/ML 10 ML VIAL 15 UNIT SUBCUT (07:57)
[2025-04-25] MEDS: Acetaminophen 325 MG TABLET 975 MG PO (07:58)
--- NOTE | 2025-04-25 10:20 | MHC.CM.PN ---
Per ROUNDS discussion, Patient is not yet medically cleared for dc (needs 1 more day of IV Lasix); PT is recommending home with services and CM will continue to follow.
[2025-04-25 10:58] VITALS: BP 125/61; PULSE 93; RESP 18; TEMP 36.6; O2SAT 96
[2025-04-25 11:24] LABS: Glucose, Whole Blood 283 mg/dL (60-115)
[2025-04-25] MEDS: Clotrimazole 1 % Cream 15 GM TUBE 1 APPL TOPICAL (11:54)
--- NOTE | 2025-04-25 13:33 | PM.DS ---
DS: Providers Provider Date of Service: 04/25/25 Date of admission: 04/22/25 01:32 Date of discharge: 04/25/25 Primary care physician: Concepción Reyes MD Consults: 04/22/25 07:28 Consult to Wound Care Routine Reason for consultation: dry red rash to bilateral ankles/feet 04/22/25 08:01 Consult to Pulmonology Routine Consulting Provider: [facility] Reason for consultation: recurrent effusion, need of pleurix cath ? Attending physician on discharge: Adrian Dixon Discharging clinician: Cara Scott DS: Diagnosis Discharge Diagnosis (1) Acute lactic acidosis: Status: Acute (2) Acute on chronic diastolic CHF (congestive heart failure): Status: Acute (3) Maculopapular rash, localized: Status: Acute (4) Recurrent pleural effusion: Status: Acute (5) Malignant pleural effusion: Status: Acute (6) Acute respiratory failure with hypoxia: Status: Acute DS: Summary Hospital Course Hospital Course: From H&P on the day of admission Sarah Ervin is a 65 years old woman with past medical history is remarkable for breast cancer status post left mastectomy, type 2 diabetes mellitus, COPD -no home oxygen, HFpEF, anxiety, obesity and PVD presents to the emergency department complaining of worsening shortness on breath over the last several days. She has not associated chest tightness. She also have occasional wheezing and cough. Did not report any fever or chills. She has been using bronchodilator therapy at home without significant improvement of symptoms. Did not report any headache, dizziness or or loss of consciousness. She also denied any acute gastrointestinal or genitourinary symptoms. Reported rash to both feet soles (started 2 days ago). She has an ongoing tobacco smoker. Denied marijuana smoking, alcohol abuse or illicit drug use. She was recently discharged from the hospital on April 10 after she was diagnosed due to bilateral pleural effusions requiring chest tube placement. Pleural fluid at that time came back positive for malignancy (breast). At that time she was treated with supplemental oxygen, antibiotics, nebs, steroids and was seen by pulmonary service recommended chest tube placement. Left-sided pigtail chest tube was inserted by IR (April 04) draining approximately 120 mL of red fluid. She also underwent a transthoracic echo that showed hyperdynamic LV function > 70%, no evidence of regional wall motion abnormalities. It did showed impaired relaxation filling pattern. In the ED today she was found to have mild tachycardia and tachypnea. Oxygen saturation is normal on room air and blood pressure is stable. Last blood pressure 141/66. There is no fever. Blood workup showed leukocytosis of 14.7 (prior 20.4). Hemoglobin and platelets are normal. There are no electrolyte imbalances. Renal function is normal. Initially, lactic acid was 3.8 (now is 2.4). LFTs are unremarkable. Troponin is 3.7. Albumin and total protein are normal. Viral testing for influenza, RSV and COVID-19 is negative. CXR showed interstitial opacities are nonspecific and may reflect pulmonary edema, mild wall setting of bilateral pleural effusions (R>L). ECG showed sinus tachycardia(131 bpm) with occasional PVCs. Acute hypoxic respiratory failure 2/2 Bilateral pleural effususionm, likey malignant with acute on chronic diastolic CHF IR placed right-sided ultrasound-guided thoracentesis and chest tube placement; overnight less than 20 cc. Chest tube was removed, remained dyspneic, treated with IV Lasix, dyspnea improved, able to ambulate without shortness of breath or hypoxia. CTA negative for PE. We will discharge with low-dose Lasix. May need repeat tap versus PleurX in the future but currently pulmonology recommends against it. CTA shows possible pneumonia, we will treat with 9 more days of oral antibiotics upon discharge. Outpatient repeat imaging as needed. Starting Lasix therefore we will discontinue hydrochlorothiazide. PT evaluated the patient and recommended home with PT services. Patient is eager to return home today. Time Attestation Discharge Coordination Time (in mins): 36 Quality: Safe Use of Opioids Does Pt have an Active Cancer Diagnosis on the Problem List?: No Quality: Stroke Does the patient have a stroke diagnosis?: No Physical Exam Vital Signs: Vital Signs: Last Vital Signs Temp 97.9 F 04/25/25 10:58 Pulse 93 04/25/25 10:58 Resp 18 04/25/25 10:58 BP 125/61 04/25/25 10:58 Pulse Ox 96 04/25/25 10:58 O2 Del Method Room Air 04/25/25 10:58 O2 Flow Rate 1 04/24/25 07:51 BMI result Body Mass Index 40.4 Const: General: cooperative, comfortable, alert and awake Nutritional Appearance: average body habitus Orientation/consciousness: patient oriented x3 Resp: Effort & Inspection: no respiratory distress and no use of accessory muscles Neuro: General: patient oriented x3 DS: Data Data Completed and Pending Completed studies during hospitalization [Text1]: Procedures Drainage of Left Pleural Cavity with Drainage Device, Percutaneous Approach (04/03/25) Labs on day of discharge: Laboratory Results - last 24 hr 04/24/25 04/24/25 04/25/25 15:44 20:06 06:46 WBC 9.6 RBC 4.16 L Hgb 12.5 Hct 37.8 MCV 90.9 MCH 30.0 MCHC 33.1 RDW 13.6 Plt Count 275 MPV 10.2 Immature Gran % (Auto) 0.9 H Neut % (Auto) 61.4 Lymph % (Auto) 22.4 [place] % (Auto) 8.8 Eos % (Auto) 5.6 H Baso % (Auto) 0.9 Lymph # (Auto) 2.2 [place] # (Auto) 0.9 Eos # (Auto) 0.5 H Baso # (Auto) 0.1 Abs Immat Gran (auto) 0.09 H Absolute Neuts (auto) 5.9 Absolute Nucleated RBC 0.000 Nucleated RBC % (auto) 0.0 Sodium 141 Potassium 3.2 L D Chloride 105 Carbon Dioxide 26 Anion Gap 13 BUN 24 H Creatinine 0.63 Estim Creat Clear Calc 99.9 Estimated GFR > 60 POC Glucose 144 H 217 H Random Glucose 206 H Calcium 9.4 04/25/25 04/25/25 07:08 11:20 WBC RBC Hgb Hct MCV MCH MCHC RDW Plt Count MPV Immature Gran % (Auto) Neut % (Auto) Lymph % (Auto) [place] % (Auto) Eos % (Auto) Baso % (Auto) Lymph # (Auto) [place] # (Auto) Eos # (Auto) Baso # (Auto) Abs Immat Gran (auto) Absolute Neuts (auto) Absolute Nucleated RBC Nucleated RBC % (auto) Sodium Potassium Chloride Carbon Dioxide Anion Gap BUN Creatinine Estim Creat Clear Calc Estimated GFR POC Glucose 216 H 283 H Random Glucose Calcium Preliminary micro results at discharge 04/22/25 00:10 Blood Culture - Preliminary Blood - Venous No growth after 48 hours. 04/22/25 00:04 Blood Culture - Preliminary Blood - Venous No growth after 48 hours. Discharge Plan Discharge Anticipated Discharge Date/Time: 04/25/25 13:51 Patient Disposition: Home Health Service Discharge Diagnosis: Respiratory failure Recurrent pleural effusion Referrals: Po,Concepción Browne MD [Primary Care Provider] - 1 Week Discharge Medications: New furosemide [Lasix] 20 mg tablet 20 mg PO DAILY 30 Days Qty: 30 0RF cefuroxime axetil 500 mg tablet 500 mg PO Q12H 9 Days Qty: 18 0RF doxycycline monohydrate 100 mg tablet 100 mg PO BID 9 Days Qty: 18 0RF Continued (DME) blood-glucose meter [FreeStyle Lite Meter] Kit See Rx Instructions .ROUTE .MEDSUPPLY Qty: 1 0RF Rx Instructions: As directed clonidine HCl 0.1 mg tablet 0.1 mg PO BEDTIME Qty: 90 11RF paroxetine HCl 20 mg tablet 20 mg PO DAILY 90 Days Qty: 90 5RF aspirin [Adult Aspirin Regimen] 81 mg tablet,delayed release (DR/EC) 81 mg PO DAILY 90 Days Qty: 90 11RF ropinirole 1 mg tablet 1 mg PO BID Qty: 180 8RF letrozole 2.5 mg Tablet 2.5 mg PO DAILY Qty: 90 12RF Anoro Ellipta 62.5-25 mcg/actuation blister with device 1 inh inhalation DAILY Qty: 60 12RF oxycodone-acetaminophen [Percocet] 5-325 mg tablet 1 tab PO Q8H PRN (Reason: Breakthrough Pain, Moderate) Qty: 50 0RF Rx Instructions: Partial Fill upon patient request. albuterol sulfate 2.5 mg /3 mL (0.083 %) solution for nebulization 2.5 mg inhalation Q4-6H PRN (Reason: for wheezing) Qty: 180 3RF (DME) baby wipes See Rx Instructions .Route .MEDSUPPLY Qty: 1 12RF Rx Instructions: As directed (DME) CHAIR LIFT See Rx Instructions .Route .MEDSUPPLY Qty: 1 0RF Rx Instructions: As directed (DME) Pull ups x-large See Rx Instructions .Route .MEDSUPPLY Qty: 240 11RF Rx Instructions: As directed (DME) lancets [FreeStyle Lancets] 28 gauge misc See Rx Instructions .ROUTE .COMPLEX Qty: 100 3RF Dose Instruction: USE DIRECTED THREE TIMES A DAY (BULK) Rx Instructions: USE DIRECTED THREE TIMES A DAY (BULK) amlodipine 5 mg tablet 5 mg PO BID 30 Days Qty: 60 1RF (DME) FreeStyle Lite Strips Strip See Rx Instructions .ROUTE .MEDSUPPLY Qty: 100 3RF Rx Instructions: check BS 3X/DAY cyanocobalamin (vitamin B-12) 1,000 mcg Tablet 1,000 mcg PO DAILY ferrous sulfate [Iron (ferrous sulfate)] 325 mg (65 mg iron) tablet 325 mg PO FR@0900 Rx Instructions: once a day for 1 week in a month zinc gluconate 50 mg tablet 50 mg PO DAILY Trulicity 1.5 mg/0.5 mL Pen Injector 1.5 mg SUBCUT FR Gemtesa 75 mg Tablet 75 mg PO DAILY atorvastatin 80 mg tablet 80 mg PO DAILY sennosides [Senokot] 8.6 mg tablet 8.6 mg PO BID PRN (Reason: Constipation) triamcinolone acetonide 0.1 % cream 1 appl topical DAILY PRN (Reason: Itchy/Dry Skin) Rx Instructions: apply to affected area ondansetron 4 mg tablet,disintegrating 4 mg PO Q8H PRN (Reason: Nausea And Vomiting) clotrimazole 1 % cream 1 appl topical BID PRN (Reason: Fungal Infections) insulin aspart U-100 [Novolog FlexPen U-100 Insulin] 100 unit/mL (3 mL) insulin pen 10 - 20 unit subcut TIDAC solifenacin [Vesicare] 5 mg tablet 5 mg PO BEDTIME cholecalciferol (vitamin D3) 50 mcg (2,000 unit) capsule 50 mcg PO Q48H acetaminophen 325 mg capsule 325 mg PO QID PRN (Reason: Pain) (DME) matectomy BRA See Rx Instructions .Route .MEDSUPPLY Qty: 2 0RF Rx Instructions: As directed (DME) compress.stocking,knee,reg,lrg Misc See Rx Instructions .Route Qty: 12 0RF Rx Instructions: As directed 20-30 mm HG (DME) Incontinence BED PADS WASHABLE See Rx Instructions .Route .MEDSUPPLY Qty: 2 12RF Rx Instructions: As directed insulin glargine [Lantus Solostar U-100 Insulin] 100 unit/mL (3 mL) insulin pen 28 unit subcut DAILY Qty: 15 7RF (DME) pen needle, diabetic 32 gauge x 1/4 needle See Rx Instructions miscellaneous .MEDSUPPLY Qty: 100 5RF Rx Instructions: as directed with insulin albuterol sulfate 90 mcg/actuation HFA aerosol inhaler 1 puff inhalation QID PRN (Reason: Shortness Of Breath Or Wheezing) Qty: 8.5 3RF fluticasone propionate [Flonase Allergy Relief] 50 mcg/actuation spray,suspension 1 spray INTRANASAL BEDTIME Qty: 16 3RF Rx Instructions: administer into each nostril Discontinued hydrochlorothiazide 12.5 mg tablet 12.5 mg PO DAILY Qty: 30 3RF Discharge Orders: Discharge Order (Routine); Ordered 04/25/25 Ordered By: Cara Scott Activity on Discharge: As tolerated Stand Alone Forms: Patient Portal Discharge page Print Language: Slovenian Other Ambulatory Orders: Basic Metabolic Panel (Routine) Timeframe: 1 Week Facility: [facility] - Location: Laboratory Ordered By: Cara Scott Care Plan Goals: See below Health Concerns: Recurrent pleural effusion Pneumonia Plan of Treatment: Complete course of oral antibiotics Persistent pleural effusions, may need further drainage in the future-outpatient repeat imaging as needed Call to schedule follow-up appointment with PCP versus Oncology Stop taking hydrochlorothiazide, start taking Lasix Repeat BMP in 1 week Assessment: See discharge summary
--- NOTE | 2025-04-25 14:02 | MHC.CM.PN ---
Addendum entered by Eunice Travis 04/25/25 14:16: Patient will dc to home via [facility] today at 3PM.RN is aware. Original Note: Patient has been medically cleared for dc to home today, with services. Patient is active with [facility], who has been notified of today's dc. CM met with Patient at bedside and addressed IMM with her, providing Patient with the original and a copy has been placed on the chart.
== END 2025-04-25 15:00 | disposition home health service (06) | DRG 597 ==
LOC: HO.ED 04-22 01:26 → HO.EDOVER 04-22 01:40 → HO.IMC 04-22 07:23
PROVIDERS: Physician Assistant; Radiology Diagnostic Radiology; Student in an Organized Health Care Education/Training Program; Admitting Provider Internal Medicine; Emergency Provider Emergency Medicine; PCP Internal Medicine; Visit Provider Physician Assistant Medical
PROC: 0W9930Z Drainage of Right Pleural Cavity with Drainage Device, Percutaneous Approach (ICD-10-PCS; principal; 2025-04-22 09:30)
DX: C50.912 Malignant neoplasm of unspecified site of left female breast (principal); I50.33 Acute on chronic diastolic (congestive) heart failure; J18.9 Pneumonia, unspecified organism; J96.01 Acute respiratory failure with hypoxia; J91.0 Malignant pleural effusion; J44.0 Chronic obstructive pulmonary disease with (acute) lower respiratory infection; E87.21 Acute metabolic acidosis; Z68.41 Body mass index [BMI] 40.0-44.9, adult; I11.0 Hypertensive heart disease with heart failure; Z20.822 Contact with and (suspected) exposure to COVID-19; E66.812 Obesity, class 2; E78.5 Hyperlipidemia, unspecified; F39 Unspecified mood [affective] disorder; G25.81 Restless legs syndrome; B35.3 Tinea pedis; Z71.3 Dietary counseling and surveillance; Z90.12 Acquired absence of left breast and nipple; Z87.891 Personal history of nicotine dependence; Z79.4 Long term (current) use of insulin; Z79.811 Long term (current) use of aromatase inhibitors; Z79.51 Long term (current) use of inhaled steroids; Z79.85 Long-term (current) use of injectable non-insulin antidiabetic drugs; Z79.82 Long term (current) use of aspirin; Z79.899 Other long term (current) drug therapy
CPT/HCPCS: 0241U; 32557; 36415; 71045; 71275; 80048; 80053; 80307; 81001; 82947; 83605; 83690; 83735; 83880; 84145; 84484; 85025; 85379; 85610; 87040; 93005; 94640; 97110; 97162; 97530; 99285; A7041; C1729; J0456; J0696; J1171; J1650; J1938; J2003; J2270; Q9967

== ENCOUNTER → 2025-04-21 23:48 | Outpatient (BNV) | payer OTHER, SELFPAY | PROVIDERS: Admitting Provider Internal Medicine; Emergency Provider Emergency Medicine; PCP Internal Medicine; Visit Provider Internal Medicine | DX: I49.3 Ventricular premature depolarization (principal); R00.0 Tachycardia, unspecified | CPT/HCPCS: 93010 ==

== ENCOUNTER 2025-04-22 01:32 | Outpatient (BNV) | payer OTHER, SELFPAY | END 2025-04-24 12:07 | PROVIDERS: Admitting Provider Internal Medicine; Emergency Provider Emergency Medicine; PCP Internal Medicine; Visit Provider Radiology Diagnostic Radiology | DX: J96.01 Acute respiratory failure with hypoxia (principal); R91.8 Other nonspecific abnormal finding of lung field; J90 Pleural effusion, not elsewhere classified; Z90.12 Acquired absence of left breast and nipple | CPT/HCPCS: 71275 ==

== ENCOUNTER → 2025-04-22 01:32 | Outpatient (BNV) | payer OTHER, SELFPAY | PROVIDERS: Admitting Provider Internal Medicine; Emergency Provider Emergency Medicine; PCP Internal Medicine; Visit Provider Internal Medicine Pulmonary Disease | DX: J90 Pleural effusion, not elsewhere classified (principal) | CPT/HCPCS: 99222 ==

== ENCOUNTER → 2025-04-22 01:32 | Outpatient (BNV) | payer OTHER, SELFPAY | PROVIDERS: Admitting Provider Internal Medicine; Emergency Provider Emergency Medicine; PCP Internal Medicine; Visit Provider Internal Medicine | DX: I50.33 Acute on chronic diastolic (congestive) heart failure (principal); E87.21 Acute metabolic acidosis; R21 Rash and other nonspecific skin eruption; J90 Pleural effusion, not elsewhere classified; J91.0 Malignant pleural effusion; J96.01 Acute respiratory failure with hypoxia | CPT/HCPCS: 99223; 99232; 99239; 99499 ==

== ENCOUNTER → 2025-04-22 | Outpatient (BNV) | payer OTHER, SELFPAY | PROVIDERS: PCP Internal Medicine; Visit Provider Radiology Neuroradiology | DX: J90 Pleural effusion, not elsewhere classified (principal); R06.02 Shortness of breath | CPT/HCPCS: 32557; 71045 ==

== ENCOUNTER → 2025-05-04 19:55 | Outpatient (BNV) | payer OTHER, SELFPAY | PROVIDERS: Emergency Provider Internal Medicine; PCP Internal Medicine; Visit Provider Radiology Diagnostic Radiology | DX: J90 Pleural effusion, not elsewhere classified (principal); J98.11 Atelectasis; R59.0 Localized enlarged lymph nodes; E27.9 Disorder of adrenal gland, unspecified | CPT/HCPCS: 71046; 71260 ==

== ENCOUNTER 2025-05-04 20:03 | Inpatient (IN) | payer OTHER, SELFPAY ==
[2025-05-04] VITALS (7 sets, daily range): BP systolic 110–139; BP diastolic 63–85; PULSE 101–124; RESP 16–26; TEMP 36.6–37.1; O2SAT 94–96; BMI 37.8
--- NOTE | 2025-05-04 | ECG_ITS ---
Test Reason : chest pain Blood Pressure : */* mmHG Vent. Rate : 114 BPM Atrial Rate : 114 BPM P-R Int : 140 ms QRS Dur : 86 ms QT Int : 346 ms P-R-T Axes : 40 10 21 degrees QTcB Int : 476 ms Sinus tachycardia Possible Left atrial enlargement Borderline ECG When compared with ECG of 21-Apr-2025 23:52, Premature ventricular complexes are no longer Present Referred By: Generic ED Physician Electronically Signed By: BEE PINA MD
--- NOTE | ~2025-05-04 | CT_ITS ---
CLINICAL HISTORY: sob CT chest with contrast. Comparison: CR - XR CHEST 2V - 05/04/25 20:[address]/DE/SR - CT ANGIO CHEST PE PROTOCOL - 04/24/25 12:[address]/DE/SR - CT CHEST W IV CON - 07/21/23 08:33 EDT Findings: The heart is mildly enlarged. Calcific atherosclerosis, including mild burden coronary artery calcifications and small focal plaque at the left subclavian origin. Right chest Port-A-Cath terminates in the distal superior vena cava. Prominent axillary lymph nodes are reidentified, measuring up to 16 mm in short axis on the left and 11 mm on the right. Medium-sized bilateral pleural effusions with associated bibasilar passive atelectasis. No other significant airspace disease. No pneumothorax. Incompletely characterized bilateral adrenal nodules are similar in size to 07/21/2023. Pancreatic atrophy. Bilateral shoulder osteoarthritis and prominent left glenohumeral joint effusion. Degenerative change of the spine. IMPRESSION: 1. Medium-sized bilateral pleural effusions with associated bibasilar passive atelectasis. 2. Left worse than right axillary lymphadenopathy is similar to 04/24/2025. 3. Bilateral adrenal nodules are similar in size to 07/21/2023. This document has been electronically signed by: Chase Bird DO on 05/05/2025 11:42:20
--- NOTE | ~2025-05-04 | XR_ITS ---
EXAMINATION: XR CHEST CLINICAL INFORMATION: post Pleurix placement COMPARISON: Earlier same day at 1:24 PM. TECHNIQUE: Frontal view of the chest was obtained. FINDINGS: Right chest port, stable in position. Left basilar Pleurx catheter in place. Cardiac and mediastinal contours are stable. Moderate interstitial pulmonary edema, small pleural effusions, and bibasilar parenchymal opacities are grossly unchanged. There is no perceptible pneumothorax. No acute osseous or soft tissue abnormalities. XR/XR chest 1V IMPRESSION: 1. Left basilar Pleurx catheter in position. 2. No perceptible pneumothorax. 3. No significant interval change in moderate interstitial pulmonary edema, small effusions, and bibasilar parenchymal opacities. Electronically signed by: Inocencio hCambers MD 05/06/2025 04:15 PM EDT
--- NOTE | ~2025-05-04 | XR_ITS ---
EXAMINATION: XR CHEST CLINICAL INFORMATION: S/P pleurX COMPARISON: May 04, 2025. TECHNIQUE: Frontal view of the chest was obtained. FINDINGS: Haziness in the opacity involving the right lower hemithorax with indistinct margins of the pulmonary hilum and cardia mediastinal silhouette. No pneumothorax. Right-sided Port-A-Cath remains at the SVC. Cardiomediastinal silhouette is enlarged with indistinct margins. Multilevel spondylosis. Degenerative changes in the uterus. XR/XR chest 1V IMPRESSION: Edema and bilateral pleural effusions, right greater than left without gross pneumothorax. Overall slight worsening since prior exam Electronically signed by: Uriel Martines MD 05/06/2025 01:38 PM EDT
--- NOTE | ~2025-05-04 | XR_ITS ---
CLINICAL HISTORY: sob 2 view chest x-ray. Comparison: CT/OR/SR - CT ANGIO CHEST PE PROTOCOL - 04/24/25 12:07 EDT CR/OR/SR - XR CHEST 1V - 04/22/25 10:53 EDT Findings: There are [id number]-rb-dkefuisa bilateral pleural effusions. There is likely compressive atelectasis in the lung bases. Underlying pneumonia is not excluded. Lungs appear otherwise clear. Cardiac silhouette is partially obscured by the effusions, but grossly stable. Right IJ port catheter tip is in the SVC. IMPRESSION: Findings as above. This document has been electronically signed by: Agustin Diaz MD on 05/04/2025 21:45:41
--- NOTE | ~2025-05-04 | US_ITS ---
EXAMINATION: Ultrasound-guided insertion of a left Pleurx catheter. CLINICAL INDICATION: Recurrent left pleural effusion. Left breast DCIS and left axillary lymph node involvement. COMPARISON: Ultrasound-guided right thoracentesis 04/22/2025. TECHNIQUE: Following explaining ultrasound-guided placement of left Pleurx catheter procedure, benefits and risk, a written consent was obtained. Patient was placed upright sitting on ultrasound stretcher and preliminary ultrasound imaging was obtained. An optimal site was selected along the left axillary line and marked on the skin approximately ninth interspace. The marked area on the skin and the anterior chest powell was cleaned and draped in usual sterile manner with 2% chlorhexidine solution. 1% lidocaine was injected at the marked site. Through a small skin incision a 5 Peruvian Yueh catheter was advanced into the pleural space. After observing fluid return a stopcock was placed over the Yueh catheter. Approximately 1 gauze length anterior to initial incision 1% lidocaine was injected. Subcutaneous lidocaine was inserted from the anterior chest wall to the site where Yueh needle was inserted. The Pleurx catheter attached to a blunt dissector was advanced from the anterior chest wall lesion to the posterior chest wall lesion and pulled through the skin site where Yueh needle was located. The cuff of the Pleurx catheter lies adjacent to the anterior chest wall incision but tucked under the skin Yueh needle was then connected to vacuum bottle with severe valve and almost all left pleural effusion was drained. Yueh catheter was removed over a guidewire and the tract dilated to 10 and a 12 Peruvian dilators. A 15 and 5 Peruvian dilator with peel-away sheath sheath was introduced over the guidewire and the dilator removed. Pleurx catheter was then inserted through the peel-away sheath] entirety and the peel-away sheath was removed. The posterior incision was stabilized with absorbable sutures. The anterior chest wall incision was stabilized with nonabsorbable 3-0 nylon sutures. Sterile dressing applied at both these sites. There was some initial bleeding seen at the anterior chest wall incision site which was redressed and on the floor. Conscious sedation was utilized during exam. Patient tolerated procedure extremely well. Chest x-ray was obtained as patient had some difficulty breathing during exam. FINDINGS/ US/US insertion pluerx cath IMPRESSION: On initial ultrasound imaging there is small to moderate left pleural effusion. Successful ultrasound-guided insertion of a left Pleurx catheter. The catheter lies along the left lung base. Electronically signed by: Valentin Hernandez MD 05/06/2025 04:38 PM EDT RP
[2025-05-04 20:46] LABS: MANUAL DIFF FLAG NO
--- NOTE | 2025-05-04 20:46 | ED.SOB ---
HPI - SOB/Dyspnea General Chief Complaint: Dyspnea Stated Complaint: sob, bilateral pneumonia Time Seen by Provider: 05/04/25 20:29 Source: patient and EMS Mode of arrival: EMS Limitations: no limitations History of Present Illness ED Provider: HPI Narrative: 65 years old woman with past medical history of breast cancer status post left mastectomy, type 2 diabetes mellitus, COPD -no home oxygen, HFpEF, anxiety, obesity and PVD presents to the emergency department complaining of worsening shortness on breath patient has just discharged on 04/25 for similar presentation patient has had malignant pleural effusion when admitted in 04/10/25 had a chest tube placed at that time comes here for increased shortness a breath for last few days patient's said she never got better since her discharge unable to lay flat because of shortness a breath no fever no cough patient was prescribed cefuroxime Lasix and doxycycline of the time of discharge Related Data Home Medications ?Medication ?Instructions ?Recorded ?Confirmed acetaminophen 325 mg capsule 325 mg PO QID PRN Pain 09/01/22 04/26/25 cyanocobalamin (vitamin B-12) 1,000 mcg PO DAILY 09/04/22 04/26/25 1,000 mcg tablet ferrous sulfate 325 mg (65 mg 325 mg PO FR@0900 08/09/24 04/26/25 iron) tablet (Iron (ferrous sulfate)) zinc gluconate 50 mg tablet 50 mg PO DAILY 08/09/24 04/26/25 atorvastatin 80 mg tablet 80 mg PO DAILY 04/03/25 04/26/25 cholecalciferol (vitamin D3) 50 50 mcg PO Q48H 04/03/25 04/26/25 mcg (2,000 unit) capsule clotrimazole 1 % topical cream 1 appl topical BID PRN Fungal 04/03/25 04/26/25 Infections insulin aspart U-100 100 unit/mL 10 - 20 unit subcut TIDAC 04/03/25 04/26/25 (3 mL) subcutaneous pen (Novolog FlexPen U-100 Insulin aspart) ondansetron 4 mg disintegrating 4 mg PO Q8H PRN Nausea And Vomiting 04/03/25 04/26/25 tablet sennosides 8.6 mg tablet (Senokot) 8.6 mg PO BID PRN Constipation 04/03/25 04/26/25 solifenacin 5 mg tablet (Vesicare) 5 mg PO BEDTIME 04/03/25 04/26/25 triamcinolone acetonide 0.1 % 1 appl topical DAILY PRN Itchy/Dry 04/03/25 04/26/25 topical cream Skin dulaglutide 1.5 mg/0.5 mL 1.5 mg subcut FR 04/22/25 04/26/25 subcutaneous pen injector (Trulicity) Previous Rx's ?Medication ?Instructions ?Recorded matectomy BRA #2 ea 10/11/23 Incontinence BED PADS WASHABLE #2 ea 01/13/24 compress.stocking,knee,reg,lrg #12 ea 01/13/24 clonidine HCl 0.1 mg tablet 0.1 mg PO BEDTIME #90 tabs 07/10/24 paroxetine HCl 20 mg tablet 20 mg PO DAILY 90 days #90 tabs 07/10/24 aspirin 81 mg tablet,delayed 81 mg PO DAILY 90 days #90 tabs 08/24/24 release (Adult Aspirin Regimen) ropinirole 1 mg tablet 1 mg PO BID #180 tabs 10/12/24 letrozole 2.5 mg tablet 2.5 mg PO DAILY #90 tabs 10/24/24 umeclidinium 62.5 mcg-vilanterol 1 inh inhalation DAILY #60 ea 10/27/24 25 mcg/actuation powdr for inhalation (Anoro Ellipta) oxycodone-acetaminophen 5 mg-325 1 tab PO Q8H PRN Breakthrough 01/31/25 mg tablet (Percocet) Pain, Moderate #50 tabs albuterol sulfate 2.5 mg/3 mL 2.5 mg (3 mL) inhalation Q4-6H PRN 02/05/25 (0.083 %) solution for nebulization for wheezing #180 mL pen needle, diabetic 32 gauge x #100 ea 02/07/25 1/4 CHAIR LIFT #1 ea 02/15/25 Pull ups #240 ea 02/15/25 baby wipes #1 ea 02/15/25 lancets 28 gauge (FreeStyle #100 ea 03/01/25 Lancets) insulin glargine 100 unit/mL (3 28 unit (0.28 mL) subcut DAILY #15 03/07/25 mL) subcutaneous pen (Lantus mL Solostar U-100 Insulin) blood sugar diagnostic (FreeStyle #100 ea 03/29/25 Lite Strips) albuterol sulfate 90 mcg/actuation 1 puff inhalation QID PRN 04/18/25 aerosol inhaler Shortness Of Breath Or Wheezing #8.5 grams fluticasone propionate 50 1 spray intranasal BEDTIME #16 04/18/25 mcg/actuation nasal grams spray,suspension (Flonase Allergy Relief) cefuroxime axetil 500 mg tablet 500 mg PO Q12H 9 days #18 tabs 04/25/25 doxycycline monohydrate 100 mg 100 mg PO BID 9 days #18 tabs 04/25/25 tablet furosemide 20 mg tablet (Lasix) 20 mg PO DAILY 30 days #30 tabs 04/25/25 amlodipine 5 mg tablet 5 mg PO BID 30 days #60 tabs 04/26/25 blood-glucose meter (Rise ArtStyle #1 ea 04/26/25 Lite Meter kit) vibegron 75 mg tablet (Gemtesa) 75 mg PO DAILY #30 tabs 04/26/25 Allergies Allergy/AdvReac Type Severity Reaction Status Date / Time diclofenac [From Voltaren] Allergy Severe enlarged Verified 05/04/25 20:15 liver lisinopril [From Zestril] Allergy Severe Angioedema Verified 05/04/25 20:15 losartan Allergy Severe Angioedema Verified 05/04/25 20:15 omeprazole Allergy Intermediate elevated Verified 05/04/25 20:15 blood pressure Penicillins [PENICILLINS] Allergy Intermediate Facial Verified 05/04/25 20:15 Swelling oxybutynin [Oxybutynin] AdvReac Severe body Verified 05/04/25 20:15 twitching gabapentin AdvReac Intermediate Hypertensio Verified 05/04/25 20:15 n metformin AdvReac Intermediate Diarrhea Verified 05/04/25 20:15 duloxetine AdvReac Intermediate tachycardia Uncoded 04/22/25 22:50 Review of Systems Review of Systems: Yes all other systems are reviewed and are negative [facility] Past Medical History Medical History Generalized anxiety disorder TIA (transient ischemic attack) (~12/2024) Recent bereavement Environmental and seasonal allergies HLD (hyperlipidemia) Multinodular goiter Peripheral neuropathy History of short term memory loss Port-[place] in place Smoker Family history of prostate cancer in father Leg swelling Shortness of breath Effusion of left knee Weakness Fall Thyroid nodule Adrenal adenoma Vision changes Diabetes History of palpitations History of unsteady gait Low back pain Arthritis Mild heartburn Hx of renal calculi Vaginal yeast infection Encounter to discuss test results 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 Cervical cancer screening Type 2 diabetes mellitus with hyperglycemia History of anal fissures Peripheral vascular disease Urinary incontinence Hypertension COPD (chronic obstructive pulmonary disease) Hypercholesterolemia Surgical History Hx of colonoscopy H/O total mastectomy of left breast (12/21/22) History of biopsy History of endometrial ablation Hx of tubal ligation History of tonsillectomy History of appendectomy History of cholecystectomy History of bladder surgery History of left knee replacement Family History Family History Mother History of breast cancer Father Prostate CA Brother No problems noted. Brother No problems noted. Daughter No problems noted. Social History Social History Household Members: Family Household Members Other:: adult daughter Housing: Condominium Are you a primary care asst to a significant other at home: No Do you presently have visiting nurse or other home services: Yes ([facility]) Alcohol intake: current Alcohol intake frequency: holidays/special occasions only Comment: Fell 08/2022, leg weakness 1 glass on holidays Patient Tobacco Use Status: Former Tobacco user Tobacco use type: Cigarette Cigarette Packs Per Day: 1 Years Smoked: 40, 1 pack a day Smoked in Last 30 Days: No e-Cigarette/Vaping Use: Former Use Second Hand Smoke Exposure: No Use of substances other than those prescribed or required for medical reasons: No Advance Directives: Yes Advance Directives on File: Yes Advance Directives Date on File: 04/26/25 Nutrition Risks: No Nutritional Risk Patient : No service: No Current occupational status: disabled Cognitive needs: No Hearing needs: No Vision needs: Yes Physical Exam Vital Signs: Vital Signs: Last Vital Signs Temp 98.1 F 05/05/25 01:23 Pulse 96 05/05/25 01:23 Resp 20 05/05/25 01:23 BP 110/57 L 05/05/25 01:23 Pulse Ox 96 05/05/25 01:23 O2 Del Method Nasal Cannula 05/05/25 01:23 O2 Flow Rate 2 05/05/25 01:23 Oxygen Flow Rate 4 05/04/25 20:14 BMI result Body Mass Index 37.8 Appearance: Alert. Oriented X3. Mod respiratory distress Eyes: PERRLA, No Nystagmus ENT: Pharynx normal. Oral Mucosa moist Neck: Normal inspection. Neck supple. CVS: Normal heart rate and rhythm. Pulses normal. Respiratory: Mod respiratory distress. Equal air entry bilateral, no wheezing/rales/rhonchi decreased air entry bilaterally Abdomen: Soft and nontender. Bowel sounds are present, no mass palpable, no CVA tenderness Skin: Skin warm and dry. Normal skin color. Normal skin turgor. Extremities: No lower extremity edema. No calf tenderness Neuro: Oriented X 3. No motor deficit. No sensory deficit.No cerebellar signs , cranial nerves II-XII intact Medications Administered Generic Name Dose Route Start Last Admin Trade Name Freq PRN Reason Stop Dose Admin Budesonide 0.5 mg 05/04/25 23:15 05/05/25 00:05 Budesonide 0.5 Mg/2 Ml Ampul.Neb INHALE Not Given RBID [place] Enoxaparin Sodium 40 mg 05/04/25 23:00 05/04/25 23:41 Enoxaparin Sodium 40 Mg/0.4 Ml Syringe SUBCUT 40 mg Q24H [place] Administration Vancomycin HCl 2,000 mg in 500 mls @ 250 mls/hr 05/04/25 23:29 05/04/25 23:44 Vancomycin/Ns IV 05/05/25 01:28 250 mls/hr ONCE ONE Administration Lactated Ringer's 500 mls @ 100 mls/hr 05/05/25 00:30 05/05/25 01:16 Lr IV 05/05/25 05:29 100 mls/hr .Q5H [place] Administration Sodium Chloride 3 ml 05/05/25 00:00 05/04/25 23:48 0.9 % Sodium Chloride Flush 3 Ml Syringe IVFLUSH 3 ml QSHIFT [place] Administration Discontinued Medications Generic Name Dose Route Start Last Admin Trade Name Freq PRN Reason Stop Dose Admin Ceftriaxone Sodium 2 gm 05/04/25 22:12 05/04/25 22:18 Ceftriaxone Sodium 2 Gm Vial IVPUSH 05/04/25 22:13 2 gm ONCE ONE Administration Furosemide 20 mg 05/04/25 23:14 05/04/25 23:38 Furosemide 20 Mg/2 Ml Vial IVPUSH 05/04/25 23:15 20 mg ONCE ONE Administration Protocol Sodium Chloride 1,000 mls @ 999 mls/hr 05/04/25 22:10 05/05/25 00:26 Ns IV 05/04/25 23:10 Infused .Q1H1M ONE Infusion Magnesium Sulfate 2 gm in 50 mls @ 25 mls/hr 05/04/25 23:14 05/04/25 23:40 Magnesium Sulfate/H2o IV 05/05/25 01:13 25 mls/hr ONCE ONE Administration Iohexol 100 ml 05/04/25 22:44 05/04/25 22:44 Iohexol 350 Mg/Ml 100 Ml Infus..Btl IV 05/04/25 22:45 70 ml ONCE ONE Administration Methylprednisolone Sodium Succinate 125 mg 05/04/25 23:14 05/04/25 23:40 Methylprednisolone Sod Succ 125 Mg Vial IVPUSH 05/04/25 23:15 125 mg ONCE ONE Administration Medical Decision Making Medical Decision Making MDM Narrative: Patient is 65 years old with history of diabetes depression chronic pain hypotension breast cancer status post left mastectomy COPD not on oxygen HFpEF with recurrent malignant pleural effusion comes here for increased shortness a breath workup showed patient was hypoxic right room air chest x-ray showed ground-glass opacities bilateral with pleural effusion with leukocytosis no fever started on IV antibiotics and fluids fluids were restricted because of the history of the heart failure Differential Diagnosis Differential Diagnoses: The differential diagnosis associated with the presentation includes Pneumonias/malignant pleural effusion/COPD Admission/Observation Consideration of admission/observation: Escalation of care including admission/observation considered Consult Healthcare Provider Management of the patient was discussed with: Hospitalist Lab Data [facility] Lab Attestation statement: I reviewed the patient's lab results. 05/04/25 20:40 05/04/25 21:24 Labs: Lab Results 05/04/25 05/04/25 05/04/25 Range/Units 20:40 20:45 21:24 WBC 18.1 H (4.8-10.8) X10*3/uL RBC 4.53 (4.20-5.50) X10*6/uL Hgb 13.9 (12.0-16.0) g/dl Hct 40.7 (37.0-47.0) % MCV 89.8 (80.0-98.0) fL MCH 30.7 (27.0-33.0) pg MCHC 34.2 (31.0-35.0) g/dl RDW 14.1 (11.0-16.0) % Plt Count 365 D (160-400) X10*3/uL MPV 9.7 (9.4-12.3) fL Immature Gran % (Auto) 2.0 H (0.0-0.4) % Neut % (Auto) 77.4 H (45-73) % Lymph % (Auto) 11.7 L (20-40) % [place] % (Auto) 6.3 (2-11) % Eos % (Auto) 1.8 (0-4) % Baso % (Auto) 0.8 (0-2) % Lymph # (Auto) 2.1 (1.2-4.9) X10*3/uL [place] # (Auto) 1.2 (0.1-1.2) X10*3/uL Eos # (Auto) 0.3 (0.0-0.4) X10*3/uL Baso # (Auto) 0.1 (0.0-0.2) X10*3/uL Abs Immat Gran (auto) 0.36 H (0.00-0.03) X10*3/uL Absolute Neuts (auto) 14.0 H (2.0-8.3) x10*3/uL Absolute Nucleated RBC 0.030 H (0.0-0.012) X10*3/uL Nucleated RBC % (auto) 0.2 (0.0-0.2) /100WBC Sodium 141 (135-145) mmol/L Potassium 4.2 D (3.3-5.1) mmol/L Chloride 107 (96-108) mmol/L Carbon Dioxide 23 (22-29) mmol/L Anion Gap 15 (12-20) BUN 13 (9-16) mg/dL Creatinine 0.69 (0.5-1.4) mg/dL Estim Creat Clear Calc 94.6 Estimated GFR > 60 Random Glucose 107 (60-115) mg/dL Lactic Acid 2.1 H* (0.5-2.0) mmol/L Calcium 9.4 (8.4-10.2) mg/dL Total Bilirubin 0.3 (0.0-1.0) mg/dL AST 30 (5-31) U/L ALT 13 (0-31) U/L Alkaline Phosphatase 109 (39-117) U/L Troponin I High Sens 4.6 (<3.5-17.0) ng/L B-Natriuretic Peptide 20 (<100) pg/mL Total Protein 6.6 (6.5-8.0) g/dL Albumin 3.8 (3.5-5.0) g/dL TSH 5.45 H (0.32-4.0) uIU/mL Free T4 0.87 (0.71-1.85) ng/dL Influenza Type A (PCR) NEGATIVE (Negative) Influenza Type B (PCR) NEGATIVE (Negative) RSV RNA Qual (PCR) NEGATIVE (Negative) SARS-CoV-2 RNA (RT-PCR) NEGATIVE (Negative) Independent Interpretation I performed an independent interpretation of an: EKG and CT Scan Interpretation: Sinus tachycardia with ventricular rate 114 left atrial enlargement no acute STT wave changes no acute ischemia Radiology Impression Discussion of test interpretation with radiology: I have reviewed the radiologist's reading. Radiologist Impression: Findings: There are [id number] bilateral pleural effusions. There is likely compressive atelectasis in the lung bases. Underlying pneumonia is not excluded. Lungs appear otherwise clear. Cardiac silhouette is partially obscured by the effusions, but grossly stable. Right IJ port catheter tip is in the SVC. Discharge Plan Discharge Clinical Impression: Acute on chronic diastolic CHF (congestive heart failure), Malignant pleural effusion Bilateral pneumonia Qualifiers: Pneumonia type: aspiration pneumonia Aspiration pneumonia type: unspecified Lung location: unspecified part of lung Qualified Code(s): J69.0 - Pneumonitis due to inhalation of food and vomit Patient Disposition: Admitted As Inpatient
--- NOTE | 2025-05-04 20:59 | PC.NURSE ---
Informed Toney, PA had to override medication, would not let me pull out of pyxis, medication to be given by provider.
[2025-05-04 21:00] LABS: Basophils Absolute Auto 0.1 X10*3/uL (0.0-0.2); Basophils Percent Auto 0.8 % (0-2); Eosinophils Absolute Auto 0.3 X10*3/uL (0.0-0.4); Eosinophils Percent Auto 1.8 % (0-4); Hematocrit 40.7 % (37.0-47.0); Hemoglobin 13.9 g/dl (12.0-16.0); Imm Gran Abs Auto 0.36 X10*3/uL (0.00-0.03); Lymphocytes Absolute Auto 2.1 X10*3/uL (1.2-4.9); Lymphocytes Percent Auto 11.7 % (20-40); Mean Corpuscular HGB Conc 34.2 g/dl (31.0-35.0); Mean Corpuscular Hemoglobin 30.7 pg (27.0-33.0); Mean Corpuscular Volume 89.8 fL (80.0-98.0); Mean Platelet Volume 9.7 fL (9.4-12.3); Monocytes Absolute Auto 1.2 X10*3/uL (0.1-1.2); Monocytes Percent Auto 6.3 % (2-11); NRBC Pct Auto 0.2 /100WBC (0.0-0.2); Neutrophils Percent Auto 77.4 % (45-73); Platelet Count 365 X10*3/uL (160-400); Red Blood Count 4.53 X10*6/uL (4.20-5.50); Red Cell Distribution Width 14.1 % (11.0-16.0); White Blood Count 18.1 X10*3/uL (4.8-10.8)
--- NOTE | 2025-05-04 21:06 | PC.NURSE ---
report to starr walker.
[2025-05-04 21:13] LABS: Troponin-I High Sensitivity 4.6 ng/L (<3.5-17.0)
[2025-05-04 21:32] LABS: Influenza A PCR NEGATIVE (Negative); Influenza B PCR NEGATIVE (Negative); Resp Syncy Virus RNA Qual PCR NEGATIVE (Negative); SARS COV2 PCR INHOUSE NEGATIVE (Negative)
[2025-05-04 21:46] LABS: Alanine Aminotransferase 13 U/L (0-31); Albumin Level 3.8 g/dL (3.5-5.0); Alkaline Phosphatase 109 U/L (39-117); Anion Gap 15 (12-20); Aspartate Amino Transferase 30 U/L (5-31); Bilirubin Total 0.3 mg/dL (0.0-1.0); Blood Urea Nitrogen 13 mg/dL (9-16); Calcium 9.4 mg/dL (8.4-10.2); Carbon Dioxide 23 mmol/L (22-29); Chloride 107 mmol/L (96-108); Creatinine Clr Calc Pharmacy 94.6; Estimated Glomerular Filt Rate > 60; Glucose Random 107 mg/dL (60-115); Potassium 4.2 mmol/L (3.3-5.1); Sodium 141 mmol/L (135-145); Total Protein 6.6 g/dL (6.5-8.0)
[2025-05-04 21:52] LABS: Lactic Acid 2.1 mmol/L (0.5-2.0)
[2025-05-04] MEDS: cefTRIAXone sodium 2 GM VIAL IVPUSH (22:18)
[2025-05-04] MEDS: 0.9 % Sodium Chloride 1,000 ML 999 ML IV (22:20)
--- NOTE | 2025-05-04 22:40 | P.HPHOSP_ITS ---
History of Present Illness Date of Service: 05/04/25 Attending physician on admission: Rose Gunter Chief Complaint: dyspnea Patient is a 65-year-old female with past medical history insulin- dependent diabetes on Trulicity, restless leg syndrome, depression/ anxiety, chronic pain management with oxycodone, iron deficiency anemia, hyperlipidemia, hypertension, breast cancer with history of left mastectomy, COPD not on home O2, HFpEF, peripheral vascular disease and obesity presents to the emergency department with complaints of increasing dyspnea status post recent admission for pneumonia. In March of 2025, patient was admitted and found to have bilateral pleural effusions and after thoracentesis the fluid was sent for testing and indicated HER2 fish analysis was positive. Patient has not yet seen Oncology as patient has not been able to leave the home due to lack of reserve. Patient feels that she is just getting worse noting these last 2 hospitalizations. After this past admission 04/22 through 04/25/2025, patient was not discharged with oxygen for home use and was not recommended for short-term rehab or pulmonary rehab. Patient was not referred for in-home nursing care as well. At this time, patient is so short of breath that she is not able to wipe herself or perform simple everyday activities of daily life. Patient would be considered homebound at this time. Patient's daughter lives with patient but patient's daughter works and is unable to be with patient during the day. Patient has not yet been referred for home care or support services by her PCP as well. CTA negative for PE, but noted with bilateral lower lobe pneumonia with ground- glass opacities. She does have moderate size bilateral pleural effusions. Patient is requiring oxygen via nasal cannula at this time. Patient does have underlying COPD with emphysema. Patient is no longer smoking. Patient denies any current chest pain, fever, night sweats, nausea or vomiting. Pulmonary, Oncology and case management have been consulted. In addition a similar defect of the left subclavian artery is present with noted left arm pain. Vascular has been consulted for this. We will avoid using left arm for blood pressures. Patient states that she understands she may have recurrent cancer but has every desire to live and fight the cancer if needed. Review of Systems 2 Review of Systems: Patient currently expresses significant increased work of breathing that is been going on since discharge from the hospital early April of 2025. Patient states now she is unable to leave the home as she has no reserve and is experiencing increased anxiety secondary to the shortness of breath. Patient states she is no longer to provide her self-care including wiping herself and going from the chair to the commode. Patient denies any falls or injury since discharge early April. Patient is not having any chest pain, abdominal pain or nausea and vomiting. Patient is not having any issues with diarrhea or constipation. Patient denies any fever or chills or night sweats. Patient states she has been using clotrimazole cream for a fungal rash on her feet. Patient also had a cyst on her upper chest that did open and drain and is currently in a healing stage. This area is not a new finding. Patient also states that she understands she may have recurrent cancer involving the fluid around her lungs in the pleura. Yes all other systems are reviewed and are negative [facility] Medical History Generalized anxiety disorder TIA (transient ischemic attack) (~12/2024) Recent bereavement Environmental and seasonal allergies HLD (hyperlipidemia) Multinodular goiter Peripheral neuropathy History of short term memory loss Port-A-Cath in place Smoker Family history of prostate cancer in father Leg swelling Shortness of breath Effusion of left knee Weakness Fall Thyroid nodule Adrenal adenoma Vision changes Diabetes History of palpitations History of unsteady gait Low back pain Arthritis Mild heartburn Hx of renal calculi Vaginal yeast infection Encounter to discuss test results 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 Brother No problems noted. Daughter No problems noted. Surgical History Hx of colonoscopy H/O total mastectomy of left breast (12/21/22) History of biopsy History of endometrial ablation Hx of tubal ligation History of tonsillectomy History of appendectomy History of cholecystectomy History of bladder surgery History of left knee replacement Social History Household Members: Family Household Members Other:: adult daughter Housing: Condominium Are you a primary patient care coordinator to a significant other at home: No Do you presently have visiting nurse or other home services: Yes ([facility]) Alcohol intake: current Alcohol intake frequency: holidays/special occasions only Comment: Fell 08/2022, leg weakness 1 glass on holidays Patient Tobacco Use Status: Former Tobacco user Tobacco use type: Cigarette Cigarette Packs Per Day: 1 Years Smoked: 40, 1 pack a day Smoked in Last 30 Days: No e-Cigarette/Vaping Use: Former Use Second Hand Smoke Exposure: No Use of substances other than those prescribed or required for medical reasons: No Advance Directives: Yes Advance Directives on File: Yes Advance Directives Date on File: 04/26/25 Nutrition Risks: No Nutritional Risk Patient : No service: No Current occupational status: disabled Cognitive needs: No Hearing needs: No Vision needs: Yes Ebola Risk: Travel/Contact With Anyone From Affected Area/s: No Has Patient Experienced Ebola Symptoms: No Meds Allergies Allergy/AdvReac Type Severity Reaction Status Date / Time diclofenac [From Voltaren] Allergy Severe enlarged Verified 05/04/25 20:15 liver lisinopril [From Zestril] Allergy Severe Angioedema Verified 05/04/25 20:15 losartan Allergy Severe Angioedema Verified 05/04/25 20:15 omeprazole Allergy Intermediate elevated Verified 05/04/25 20:15 blood pressure Penicillins [PENICILLINS] Allergy Intermediate Facial Verified 05/04/25 20:15 Swelling oxybutynin [Oxybutynin] AdvReac Severe body Verified 05/04/25 20:15 twitching gabapentin AdvReac Intermediate Hypertensio Verified 05/04/25 20:15 n metformin AdvReac Intermediate Diarrhea Verified 05/04/25 20:15 duloxetine AdvReac Intermediate tachycardia Uncoded 04/22/25 22:50 Active Medications: Current Medications Acetaminophen (Acetaminophen 325 Mg Tablet) 650 mg PO Q6H PRN PRN Reason: Pain, Mild 1-3,fever,headache Albuterol/Ipratropium (Albuterol/Iprat 2.5/0.5mg 3 Ml Ampul.Neb) 3 ml INHALE Q4H PRN PRN Reason: Shortness of Breath/Wheezing Calcium Carbonate (Calcium Carbonate 750 Mg Tab.Chew) 750 mg PO Q4H PRN PRN Reason: Heartburn Ceftriaxone Sodium (Ceftriaxone Sodium 2 Gm Vial) 2 gm IVPUSH Q24H [facility] Dextrose (Dextrose 50 % 25 Gm/50 Ml Syringe) 25 gm IVPUSH Q15M PRN; Protocol PRN Reason: per Hypoglycemia Standing Ord. Enoxaparin Sodium (Enoxaparin Sodium 40 Mg/0.4 Ml Syringe) 40 mg SUBCUT Q24H [facility] Glucose (Glucose Gel 15 Gm Gel..Gram.) 15 gm PO Q15M PRN; Protocol PRN Reason: per Hypoglycemia Standing Ord. Sodium Chloride (Ns) 1,000 mls @ 999 mls/hr IV .Q1H1M ONE Stop: 05/04/25 23:10 Last Admin: 05/04/25 22:20 Dose: 999 mls/hr Doxycycline Hyclate 100 mg/ (Sodium Chloride) 250 mls @ 166.67 mls/hr IV Q12H [facility] Insulin Human Lispro (Insulin Lispro 100 Unit/Ml 3 Ml Vial) 0 unit SUBCUT QIDACHS [facility]; Protocol Magnesium Hydroxide (Milk Of Magnesia 30 Ml Oral.Susp) 30 ml PO DAILY PRN PRN Reason: Constipation Melatonin (Melatonin 3 Mg Tablet) 6 mg PO BEDTIME PRN PRN Reason: Insomnia Ondansetron HCl (Ondansetron Hcl 4 Mg/2 Ml Vial) 4 mg IVPUSH Q8H PRN PRN Reason: Nausea and Vomiting Polyethylene Glycol (Polyethylene Glycol 3350 17 Gm Powd.Pack) 17 gm PO DAILY PRN PRN Reason: Constipation Senna (Sennosides 8.6 Mg Tablet) 17.2 mg PO BEDTIME [facility] Sodium Chloride (0.9 % Sodium Chloride Flush 3 Ml Syringe) 3 ml IVFLUSH QSHIFT [facility] Home Medications ?Medication ?Instructions ?Recorded ?Confirmed ?Last Taken ?Type acetaminophen 325 mg capsule 325 mg PO QID PRN Pain 09/01/22 04/26/25 Unknown History cyanocobalamin (vitamin B-12) 1,000 mcg PO DAILY 09/04/22 04/26/25 04/21/25 History 1,000 mcg tablet ferrous sulfate 325 mg (65 mg 325 mg PO FR@0900 08/09/24 04/26/25 04/19/25 History iron) tablet (Iron (ferrous sulfate)) zinc gluconate 50 mg tablet 50 mg PO DAILY 08/09/24 04/26/25 04/21/25 History atorvastatin 80 mg tablet 80 mg PO DAILY 04/03/25 04/26/25 04/21/25 History cholecalciferol (vitamin D3) 50 50 mcg PO Q48H 04/03/25 04/26/25 04/20/25 History mcg (2,000 unit) capsule clotrimazole 1 % topical cream 1 appl topical BID PRN Fungal 04/03/25 04/26/25 Unknown History Infections insulin aspart U-100 100 unit/mL 10 - 20 unit subcut TIDAC 04/03/25 04/26/25 04/21/25 History (3 mL) subcutaneous pen (Novolog FlexPen U-100 Insulin aspart) ondansetron 4 mg disintegrating 4 mg PO Q8H PRN Nausea And Vomiting 04/03/25 04/26/25 Unknown History tablet sennosides 8.6 mg tablet (Senokot) 8.6 mg PO BID PRN Constipation 04/03/25 04/26/25 04/02/25 History solifenacin 5 mg tablet (Vesicare) 5 mg PO BEDTIME 04/03/25 04/26/25 04/20/25 History triamcinolone acetonide 0.1 % 1 appl topical DAILY PRN Itchy/Dry 04/03/25 04/26/25 Unknown History topical cream Skin dulaglutide 1.5 mg/0.5 mL 1.5 mg subcut FR 04/22/25 04/26/25 04/19/25 History subcutaneous pen injector (Trulicity) Physical Exam 2 Vital Signs and Narrative: Vital Signs: Last Vital Signs Temp 98.8 F 05/04/25 21:27 Pulse 101 H 05/04/25 22:18 Resp 16 05/04/25 22:18 BP 119/75 05/04/25 22:18 Pulse Ox 94 05/04/25 22:18 O2 Del Method Nasal Cannula 05/04/25 22:18 O2 Flow Rate 2 05/04/25 22:18 Oxygen Flow Rate 4 05/04/25 20:14 BMI result Body Mass Index 37.8 Alert and orientated X3, noted increased work of breathing with pursed lip breathing. Patient is able to speak in short sentences. Neuro: CN II-X11 intact, no deficits, visual acuity intact EYES: PERRLA, EOM intact, sclerae nonicteric, conjunctiva pink ENT: hearing intact, no issues with swallowing, uvula midline, lips moist, nares patent no epistaxis, thrush noted Cardiac: S1 S2 RRR, no murmur, mild JVD, no edema in Lower ext Pulmonary: lungs with bilateral rhonchi and wheeze, diminished at the base Abdominal: BS active in all 4 quadrants, no guarding, tenderness, rebounding, no distention MSK: strength 3/5 upper and lower extremities : no CVA tenderness no bladder distension Extremities: no edema in lower extremities, PT and DP pulses palpable +2 Psych: mood anxious, judgement and insight good Skin: Tinea rash on bilateral feet, small abrasion in the right mid chest area Results Labs 05/05/25 02:06 05/05/25 02:06 Labs: Laboratory Results - last 24 hr 05/04/25 05/04/25 05/04/25 20:40 20:45 21:24 MCV 89.8 MCH 30.7 MCHC 34.2 RDW 14.1 Plt Count 365 D MPV 9.7 Immature Gran % (Auto) 2.0 H Neut % (Auto) 77.4 H Lymph % (Auto) 11.7 L Snyder % (Auto) 6.3 Eos % (Auto) 1.8 Baso % (Auto) 0.8 Lymph # (Auto) 2.1 Snyder # (Auto) 1.2 Eos # (Auto) 0.3 Baso # (Auto) 0.1 Abs Immat Gran (auto) 0.36 H Absolute Neuts (auto) 14.0 H Absolute Nucleated RBC 0.030 H Nucleated RBC % (auto) 0.2 Anion Gap 15 Estim Creat Clear Calc 94.6 Estimated GFR > 60 Random Glucose 107 Lactic Acid 2.1 H* Calcium 9.4 Total Bilirubin 0.3 AST 30 ALT 13 Alkaline Phosphatase 109 Troponin I High Sens 4.6 Total Protein 6.6 Albumin 3.8 Influenza Type A (PCR) NEGATIVE Influenza Type B (PCR) NEGATIVE RSV RNA Qual (PCR) NEGATIVE SARS-CoV-2 RNA (RT-PCR) NEGATIVE ECG Attestation: I personally reviewed and interpreted this ECG as follows: (Sinus tachycardia with possible left atrial enlargement, QTC 476) ECG interpretation date: 05/04/25 Prior ECG tracings: available for review Imaging Radiologist's Impressions: Chest x-ray Findings: There are [id number] bilateral pleural effusions. There is likely compressive atelectasis in the lung bases. Underlying pneumonia is not excluded. Lungs appear otherwise clear. Cardiac silhouette is partially obscured by the effusions, but grossly stable. Right IJ port catheter tip is in the SVC. IMPRESSION: Findings as above. CT of the chest pending Assessment and Plan (1) Bilateral pneumonia: Qualifiers: Aspiration pneumonia type: unspecified Lung location: unspecified part of lung Pneumonia type: aspiration pneumonia Qualified Code(s): J69.0 - Pneumonitis due to inhalation of food and vomit Status: Acute Plan Patient is a 65-year-old female with past medical history insulin- dependent diabetes on Trulicity, restless leg syndrome, depression/ anxiety, chronic pain management with oxycodone, iron deficiency anemia, hyperlipidemia, hypertension, breast cancer with history of left mastectomy, COPD not on home O2, HFpEF, peripheral vascular disease and obesity is being admitted for pneumonia, recurrent malignant pleural effusions with HER2 FISH positive pathology from 04/14 and expert consultation with Pulmonary, Oncology and possibly vascular for an abnormal defect found in the left subclavian artery. Patient found negative for PE. Patient does have a mildly elevated lactic acid and leukocytosis. Case management also consulted has patient's condition is advancing and patient is in need of support in the home setting. It is possible patient may benefit from pulmonary rehab/short-term rehab status post this admission and will most likely require oxygen for discharge in the home setting. Acute hypoxic respiratory failure -Sepsis indicated with Lactate 2.1, Noted leukocytosis, tachycardia and no fever. Hemodynamics otherwise stable. Blood cultures x2 pending. UA also pending. -Secondary to pneumonia and recurring malignant pleural effusions. -Oxygen via nasal cannula, pt does not currently have home O2 -ABG ordered for baseline -Telemetry and continuous pulse ox -Duo nebs, Budesonide -Lasix -Supportive care, Incentive spirometer as tolerated -Pulmonary consult ordered -ABX initiated Pneumonia -Ground-glass opacities noted bilaterally -Since patient was recently hospitalized, starting cefepime and vancomycin as patient has allergy to penicillin and likely will not tolerate Zosyn -Patient did receive 1 dose of ceftriaxone in the ED -Patient has a nonproductive cough, unable to collect sputum -Continuous pulse ox -Incentive spirometry -Oxygen via nasal cannula Recurrent malignant pleural effusions -Pathology indicated back in March of 2025 HER2 fish was positive -Pulmonary consulted -Oncology consulted, patient was not able to make the outpatient appointment due to inability to leave the home secondary to severe shortness of breath -Patient may require thoracentesis and intervention -Lasix IV administered COPD exacerbation -Methylprednisolone ordered 125 x 1 with 60 b.i.d. to follow -Magnesium 2 GMS ordered -Continue breathing treatments and supportive care with oxygen via NC -Continuous pulse ox monitoring Abnormal filling defect of left subclavian artery found on previous CT scan -Patient is having increasing pain in the left arm -Vascular consulted -No blood pressures in left arm Insulin-dependent diabetes -Sliding scale insulin -Diabetic diet Thrush -Nystatin swish and swallow ordered -Have patient rinse mouth after breathing treatments -Monitor closely Fungal rash B feet -Clotrimazole topically Chronic urinary stress incontinence -UA pending -pt now with itz wick in place -Nystatin powder as needed for perineal redness Case management/social work consulted as patient's needs at home are increasing. Patient advised that she may benefit from pulmonary rehab versus short-term rehab status post this admission. In addition patient is interested in home care and nursing services as patient is considered homebound at this time. Most importantly, patient will likely require home O2 upon discharge. Home O2 study will be needed closer to discharge if patient is returning home versus short- term rehab. DVT prophylaxis: Lovenox PPI prophylaxis: Omeprazole Med rec pending Full Code status Quality Stroke Does the patient have a stroke diagnosis?: No Reason for No Anti-thrombotic by Day Two: N/A - Med Ordered VTE Prior VTE?: No VTE Risk Level:: Medical - moderate - high VTE Device Contraindication: N/A - Device Ordered VTE Drug Contraindication: N/A - Med Ordered
[2025-05-04] MEDS: iohexoL 350 MG/ML 100 ML INFUS..BTL IV (22:44)
[2025-05-04 23:28] LABS: Reflex Lactate? Lactic Acid Added
[2025-05-04 23:31] LABS: Free T4 (Free Thyroxine) 0.87 ng/dL (0.71-1.85); Thyroid Stimulating Hormone 5.45 uIU/mL (0.32-4.0)
[2025-05-04] MEDS: Furosemide 20 MG/2 ML VIAL IVPUSH (23:38)
[2025-05-04] MEDS: Magnesium Sulfate/H2O 2 GM/50 ML PIGGYBACK IV (23:40)
[2025-05-04] MEDS: Enoxaparin Sodium 40 MG/0.4 ML SYRINGE SUBCUT (23:41)
[2025-05-04] MEDS: vancomycin/NS 2,000 MG/500 ML PLAST..BAG 250 MG IV (23:44)
[2025-05-04] MEDS: 0.9 % Sodium Chloride Flush 3 ML SYRINGE IVFLUSH (23:48)
[2025-05-04 23:49] LABS: B Type Natriuretic Peptide 20 pg/mL (<100)
[2025-05-04 23:59] LABS: Glucose, Whole Blood 139 mg/dL (60-115)
[2025-05-05] VITALS (11 sets, daily range): BP systolic 110–159; BP diastolic 57–84; PULSE 90–131; RESP 17–30; TEMP 36.5–36.9; O2SAT 95–108
[2025-05-05 00:02] LABS: ABG Base Excess -2.2 mmol/L; ABG HCO3 20 mmol/L (22-26); ABG pCO2 29 mmHg (32-45); ABG pH 7.44 (7.35-7.45); ABG pO2 92 mmHg (83-108)
[2025-05-05 00:21] LABS: ~Lactic Acid-LAB USE ONLY 2.2 mmol/L (0.5-2.0)
[2025-05-05] MEDS: Lactated Ringers 500 ML 100 ML IV (01:16)
[2025-05-05 01:48] LABS: Reflex Lactate? 2 Y
[2025-05-05 02:00] LABS: ABG Refer to POC result
[2025-05-05 02:28] LABS: ~Lactic Acid-LAB USE ONLY 3.3 mmol/L (0.5-2.0)
[2025-05-05 03:03] LABS: Alanine Aminotransferase 11 U/L (0-31); Albumin Level 3.7 g/dL (3.5-5.0); Alkaline Phosphatase 109 U/L (39-117); Anion Gap 16 (12-20); Aspartate Amino Transferase 24 U/L (5-31); Bilirubin Total 0.2 mg/dL (0.0-1.0); Blood Urea Nitrogen 13 mg/dL (9-16); Calcium 9.6 mg/dL (8.4-10.2); Carbon Dioxide 24 mmol/L (22-29); Chloride 109 mmol/L (96-108); Creatinine Clr Calc Pharmacy 93.3; Estimated Glomerular Filt Rate > 60; Glucose Random 151 mg/dL (60-115); Sodium 144 mmol/L (135-145); Total Protein 6.6 g/dL (6.5-8.0)
[2025-05-05 03:27] LABS: Appearance Urine Clear; Color Urine Yellow; Glucose Urine UA Negative (Negative); Leukocyte Esterase Urine Negative (Negative); Nitrite Urine Negative (Negative); Urine Blood Negative (Negative); Urine Ketones Negative (Negative); Urine Protein Trace mg/dL (Neg-Trace)
[2025-05-05 03:43] LABS: MANUAL DIFF FLAG NO
[2025-05-05 03:45] LABS: Basophils Absolute Auto 0.1 X10*3/uL (0.0-0.2); Basophils Percent Auto 0.7 % (0-2); Eosinophils Absolute Auto 0.1 X10*3/uL (0.0-0.4); Hematocrit 38.6 % (37.0-47.0); Hemoglobin 12.9 g/dl (12.0-16.0); Imm Gran Abs Auto 0.28 X10*3/uL (0.00-0.03); Imm Gran Pct Auto 1.9 % (0.0-0.4); Lymphocytes Absolute Auto 2.4 X10*3/uL (1.2-4.9); Mean Corpuscular HGB Conc 33.4 g/dl (31.0-35.0); Mean Corpuscular Hemoglobin 30.6 pg (27.0-33.0); Mean Corpuscular Volume 91.5 fL (80.0-98.0); Mean Platelet Volume 10.2 fL (9.4-12.3); Monocytes Absolute Auto 0.9 X10*3/uL (0.1-1.2); Monocytes Percent Auto 6.1 % (2-11); NRBC Pct Auto 0.2 /100WBC (0.0-0.2); Neutrophils Absolute Auto 10.9 x10*3/uL (2.0-8.3); Neutrophils Percent Auto 74.3 % (45-73); Platelet Count 361 X10*3/uL (160-400); Red Blood Count 4.22 X10*6/uL (4.20-5.50); Red Cell Distribution Width 14.3 % (11.0-16.0); White Blood Count 14.7 X10*3/uL (4.8-10.8)
[2025-05-05 04:35] LABS: Magnesium 2.2 mg/dL (1.6-2.6)
[2025-05-05] MEDS: oxyCODONE HCl Immed Release 5 MG TABLET PO ×2 (05:42→21:33)
[2025-05-05] MEDS: Omeprazole 20 MG CAPSULE.DR PO (05:42)
[2025-05-05] MEDS: cefEPime HCl/D5W 2 GM/50 ML PIGGYBACK IV ×3 (05:45→21:37)
[2025-05-05 07:13] LABS: Glucose, Whole Blood 144 mg/dL (60-115)
[2025-05-05 07:45] LABS: Estimated Average Glucose 203 mg/dL; Hemoglobin A1C 247.0671 umol/L; Hemoglobin A1c % 8.7 % (<6.0)
[2025-05-05] MEDS: Nystatin Oral Susp 500,000 UNIT/5 ML ORAL.SUSP 400000 UNIT PO ×4 (08:57→21:34)
[2025-05-05] MEDS: Nystatin Powder 15 GM BOTTLE 1 APPL TOPICAL ×2 (08:58→21:35)
[2025-05-05] MEDS: Clotrimazole 1 % Cream 15 GM TUBE 1 APPL TOPICAL ×2 (08:58→21:34)
[2025-05-05] MEDS: 0.9 % Sodium Chloride Flush 3 ML SYRINGE IVFLUSH ×2 (09:02→17:36)
--- NOTE | 2025-05-05 09:15 | PC.NURSE ---
Report received. Taken over care at this time.
[2025-05-05] MEDS: Budesonide 0.5 MG/2 ML AMPUL.NEB INHALE ×2 (09:23→19:16)
[2025-05-05] MEDS: LORazepam 0.5 MG TABLET 0.25 MG PO (11:01)
[2025-05-05 11:29] LABS: Glucose, Whole Blood 171 mg/dL (60-115)
--- NOTE | 2025-05-05 11:35 | P.CONPL_ITS ---
History of Present Illness History of Present Illness Consult date: 05/05/25 Chief complaint: dyspnea Narrative: 65-year-old lady recent 40+ pack-year smoker with underlying, diabetes mellitus, hypotension, PVD, breast cancer status post mastectomy metastatic with recent admissions for bilateral metastatic pleural effusions status post sequential bilateral thoracentesis readmitted on 05/04/2025 with worsening dyspnea. Her CT chest demonstrated 3, later moderate left-sided small right-sided pleural effusions. Review of Systems 2 Cardiovascular: Cardiovascular: Denies chest pain, Reports dyspnea and Reports dyspnea on exertion Respiratory: Respiratory: Denies cough, Denies hemoptysis, Denies excessive phlegm production, Denies pain with cough, Reports dyspnea and Reports dyspnea on exertion PMFSH Past Medical History Medical History Generalized anxiety disorder TIA (transient ischemic attack) (~12/2024) Recent bereavement Environmental and seasonal allergies HLD (hyperlipidemia) Multinodular goiter Peripheral neuropathy History of short term memory loss [place] in place Smoker Family history of prostate cancer in father Leg swelling Shortness of breath Effusion of left knee Weakness Fall Thyroid nodule Adrenal adenoma Vision changes Diabetes History of palpitations History of unsteady gait Low back pain Arthritis Mild heartburn Hx of renal calculi Vaginal yeast infection Encounter to discuss test results 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 Brother No problems noted. Daughter No problems noted. Surgical History Surgical History Hx of colonoscopy H/O total mastectomy of left breast (12/21/22) History of biopsy History of endometrial ablation Hx of tubal ligation History of tonsillectomy History of appendectomy History of cholecystectomy History of bladder surgery History of left knee replacement Social History Social History Household Members: Family Household Members Other:: adult daughter Housing: Condominium Are you a primary critical care physician assistant to a significant other at home: No Do you presently have visiting nurse or other home services: Yes ([facility]) Alcohol intake: current Alcohol intake frequency: holidays/special occasions only Comment: Fell 08/2022, leg weakness 1 glass on holidays Patient Tobacco Use Status: Former Tobacco user Tobacco use type: Cigarette Cigarette Packs Per Day: 1 Years Smoked: 40, 1 pack a day Smoked in Last 30 Days: No e-Cigarette/Vaping Use: Former Use Second Hand Smoke Exposure: No Use of substances other than those prescribed or required for medical reasons: No Advance Directives: Yes Advance Directives on File: Yes Advance Directives Date on File: 04/26/25 Nutrition Risks: No Nutritional Risk Patient : No service: No Current occupational status: disabled Cognitive needs: No Hearing needs: No Vision needs: Yes Travel History Ebola Risk: Travel/Contact With Anyone From Affected Area/s: No Has Patient Experienced Ebola Symptoms: No Meds Allergies Allergy/AdvReac Type Severity Reaction Status Date / Time diclofenac [From Voltaren] Allergy Severe enlarged Verified 05/04/25 20:15 liver lisinopril [From Zestril] Allergy Severe Angioedema Verified 05/04/25 20:15 losartan Allergy Severe Angioedema Verified 05/04/25 20:15 omeprazole Allergy Intermediate elevated Verified 05/04/25 20:15 blood pressure Penicillins [PENICILLINS] Allergy Intermediate Facial Verified 05/04/25 20:15 Swelling oxybutynin [Oxybutynin] AdvReac Severe body Verified 05/04/25 20:15 twitching gabapentin AdvReac Intermediate Hypertensio Verified 05/04/25 20:15 n metformin AdvReac Intermediate Diarrhea Verified 05/04/25 20:15 duloxetine AdvReac Intermediate tachycardia Uncoded 04/22/25 22:50 Active Medications: Current Medications Acetaminophen (Acetaminophen 325 Mg Tablet) 650 mg PO Q6H PRN PRN Reason: Pain, Mild 1-3,fever,headache Albuterol/Ipratropium (Albuterol/Iprat 2.5/0.5mg 3 Ml Ampul.Neb) 3 ml INHALE Q4H PRN PRN Reason: Shortness of Breath/Wheezing Budesonide (Budesonide 0.5 Mg/2 Ml Ampul.Neb) 0.5 mg INHALE RBID [facility] Last Admin: 05/05/25 09:23 Dose: 0.5 mg Calcium Carbonate (Calcium Carbonate 750 Mg Tab.Chew) 750 mg PO Q4H PRN PRN Reason: Heartburn Clotrimazole (Clotrimazole 1 % Cream 15 Gm Tube) 1 appl TOPICAL BID [facility]; Protocol Last Admin: 05/05/25 08:58 Dose: 1 appl Dextrose (Dextrose 50 % 25 Gm/50 Ml Syringe) 25 gm IVPUSH Q15M PRN; Protocol PRN Reason: per Hypoglycemia Standing Ord. Enoxaparin Sodium (Enoxaparin Sodium 40 Mg/0.4 Ml Syringe) 40 mg SUBCUT Q24H [facility] Last Admin: 05/04/25 23:41 Dose: 40 mg Glucose (Glucose Gel 15 Gm Gel..Gram.) 15 gm PO Q15M PRN; Protocol PRN Reason: per Hypoglycemia Standing Ord. Cefepime HCl (Maxipime) 2 gm in 50 mls @ 100 mls/hr IV Q8H [facility] Last Infusion: 05/05/25 06:34 Dose: Infused Vancomycin HCl 1,250 mg/ (Sodium Chloride) 250 mls @ 166.667 mls/hr IV Q12H [facility] Insulin Human Lispro (Insulin Lispro 100 Unit/Ml 3 Ml Vial) 0 unit SUBCUT QIDACHS [facility]; Protocol Last Admin: 05/05/25 07:10 Dose: Not Given Lorazepam (Lorazepam 0.5 Mg Tablet) 0.25 mg PO Q6H PRN PRN Reason: anxiety/restlessness Last Admin: 05/05/25 11:01 Dose: 0.25 mg Magnesium Hydroxide (Milk Of Magnesia 30 Ml Oral.Susp) 30 ml PO DAILY PRN PRN Reason: Constipation Melatonin (Melatonin 3 Mg Tablet) 6 mg PO BEDTIME PRN PRN Reason: Insomnia Methylprednisolone Sodium Succinate (Methylprednisolone Sod Succ 125 Mg Vial) 62.5 mg IVPUSH Q12H [facility] Nystatin (Nystatin Powder 15 Gm Bottle) 1 appl TOPICAL BID [facility]; Protocol Last Admin: 05/05/25 08:58 Dose: 1 appl Nystatin (Nystatin Oral Susp 500,000 Unit/5 Ml Oral.Susp) 400,000 unit PO QID [facility]; Protocol Stop: 05/08/25 08:59 Last Admin: 05/05/25 08:57 Dose: 400,000 unit Omeprazole (Omeprazole 20 Mg Capsule.Dr) 20 mg PO DAILY@0630 [facility] Last Admin: 05/05/25 05:42 Dose: 20 mg Ondansetron HCl (Ondansetron Hcl 4 Mg/2 Ml Vial) 4 mg IVPUSH Q8H PRN PRN Reason: Nausea and Vomiting Oxycodone HCl (Oxycodone Hcl Immed Release 5 Mg Tablet) 5 mg PO Q4H PRN PRN Reason: Pain, Severe (Pain Scale 7-10) Last Admin: 05/05/25 05:42 Dose: 5 mg Pharmacy Consult (Consult Rx Vancomycin Dosing) 1 each MISCELLANE DAILY PRN PRN Reason: Consult order Polyethylene Glycol (Polyethylene Glycol 3350 17 Gm Powd.Pack) 17 gm PO DAILY PRN PRN Reason: Constipation Senna (Sennosides 8.6 Mg Tablet) 17.2 mg PO BEDTIME [facility] Sodium Chloride (0.9 % Sodium Chloride Flush 3 Ml Syringe) 3 ml IVFLUSH QSHIFT [facility] Last Admin: 05/05/25 09:02 Dose: 3 ml Home Medications ?Medication ?Instructions ?Recorded ?Confirmed ?Last Taken ?Type acetaminophen 325 mg capsule 325 mg PO QID PRN Pain 09/01/22 04/26/25 Unknown History cyanocobalamin (vitamin B-12) 1,000 mcg PO DAILY 09/04/22 04/26/25 04/21/25 History 1,000 mcg tablet ferrous sulfate 325 mg (65 mg 325 mg PO FR@0900 08/09/24 04/26/25 04/19/25 History iron) tablet (Iron (ferrous sulfate)) zinc gluconate 50 mg tablet 50 mg PO DAILY 08/09/24 04/26/25 04/21/25 History atorvastatin 80 mg tablet 80 mg PO DAILY 04/03/25 04/26/25 04/21/25 History cholecalciferol (vitamin D3) 50 50 mcg PO Q48H 04/03/25 04/26/25 04/20/25 History mcg (2,000 unit) capsule clotrimazole 1 % topical cream 1 appl topical BID PRN Fungal 04/03/25 04/26/25 Unknown History Infections insulin aspart U-100 100 unit/mL 10 - 20 unit subcut TIDAC 04/03/25 04/26/25 04/21/25 History (3 mL) subcutaneous pen (Novolog FlexPen U-100 Insulin aspart) ondansetron 4 mg disintegrating 4 mg PO Q8H PRN Nausea And Vomiting 04/03/25 04/26/25 Unknown History tablet sennosides 8.6 mg tablet (Senokot) 8.6 mg PO BID PRN Constipation 04/03/25 04/26/25 04/02/25 History solifenacin 5 mg tablet (Vesicare) 5 mg PO BEDTIME 04/03/25 04/26/25 04/20/25 History triamcinolone acetonide 0.1 % 1 appl topical DAILY PRN Itchy/Dry 04/03/25 04/26/25 Unknown History topical cream Skin dulaglutide 1.5 mg/0.5 mL 1.5 mg subcut FR 04/22/25 04/26/25 04/19/25 History subcutaneous pen injector (Trulicity) Physical Exam 2 Vital Signs: Vital Signs: Last Vital Signs Temp 97.7 F 05/05/25 08:43 Pulse 98 05/05/25 11:02 Resp 20 05/05/25 11:02 BP 159/84 H 05/05/25 11:02 Pulse Ox 97 05/05/25 11:02 O2 Del Method Nasal Cannula 05/05/25 11:02 O2 Flow Rate 2 05/05/25 11:02 Oxygen Flow Rate 4 05/04/25 20:14 BMI result Body Mass Index 37.8 Const: General: no acute distress, alert and awake Eyes: Sclerae: sclerae normal EOM: EOMs intact bilaterally Neck: Neck: Yes no lymphadenopathy, Yes trachea midline and Yes supple Resp: Effort & Inspection: normal respiratory effort and no respiratory distress Auscultation: clear to auscultation bilaterally Cardio: Rate: regular rate Rhythm: regular rhythm Heart sounds: no gallops, no murmurs and no rubs GI: Palpation (GI): Soft to palpation and Other GI palpation findings present ( Nontender) Auscultation: normal bowel sounds Extrem: General: Yes no pedal edema, No clubbing and No cyanosis Results Laboratory Findings 05/05/25 02:06 05/05/25 02:06 Abnormal lab findings: Abnormal Labs 05/04/25 05/04/25 05/04/25 20:40 21:24 23:39 WBC 18.1 H Immature Gran % (Auto) 2.0 H Neut % (Auto) 77.4 H Lymph % (Auto) 11.7 L Abs Immat Gran (auto) 0.36 H Absolute Neuts (auto) 14.0 H Absolute Nucleated RBC 0.030 H ABG pCO2 at Pt Temp ABG HCO3 Chloride POC Glucose 139 H Random Glucose Hemoglobin A1c % Lactic Acid 2.1 H* Lactic Acid F/U @ 2Hr Lactic Acid F/U @ 4Hr TSH 5.45 H 05/04/25 05/04/25 05/05/25 23:46 23:57 02:06 WBC 14.7 H Immature Gran % (Auto) 1.9 H Neut % (Auto) 74.3 H Lymph % (Auto) 16.0 L Abs Immat Gran (auto) 0.28 H Absolute Neuts (auto) 10.9 H Absolute Nucleated RBC 0.030 H ABG pCO2 at Pt Temp 29 L ABG HCO3 20 L Chloride 109 H POC Glucose Random Glucose 151 H Hemoglobin A1c % 8.7 H Lactic Acid Lactic Acid F/U @ 2Hr 2.2 H* Lactic Acid F/U @ 4Hr 3.3 H* TSH 05/05/25 05/05/25 07:08 11:25 WBC Immature Gran % (Auto) Neut % (Auto) Lymph % (Auto) Abs Immat Gran (auto) Absolute Neuts (auto) Absolute Nucleated RBC ABG pCO2 at Pt Temp ABG HCO3 Chloride POC Glucose 144 H 171 H Random Glucose Hemoglobin A1c % Lactic Acid Lactic Acid F/U @ 2Hr Lactic Acid F/U @ 4Hr TSH Assessment and Plan (1) Recurrent pleural effusion: Status: Acute (2) Acute respiratory failure with hypoxia: Status: Acute (3) Malignant pleural effusion: Status: Acute Plan Impression: 65-year-old lady with metastatic pleural effusions from breast cancer admitted with worsening dyspnea and recurrence of pleural effusions [id number]. Recommendations: CT chest reviewed, [id number] recurrent pleural effusion. Would consider placement of PleurX on the left side. Procedures Date of Service Date of Service: 05/05/25
[2025-05-05] MEDS: vancomycin HCL 1,250 MG in 0.9 % Sodium Chloride 250 ML 166.67 MG IV (12:37)
[2025-05-05] MEDS: Insulin Lispro 100 UNIT/ML 3 ML VIAL SUBCUT ×3 (12:38→21:35)
--- NOTE | 2025-05-05 13:32 | P.PNIM_ITS ---
Subjective Subjective Date of Service: 05/05/25 Interval History: Seen and evaluated this morning feels anxious and shortness of breath worried about no reported events overnight Review of Systems Review of Systems: Yes all other systems are reviewed and are negative Physical Exam 2 Vital Signs: Vital Signs: Last Vital Signs Temp 97.7 F 05/05/25 08:43 Pulse 98 05/05/25 11:02 Resp 20 05/05/25 11:02 BP 159/84 H 05/05/25 11:02 Pulse Ox 97 05/05/25 11:02 O2 Del Method Nasal Cannula 05/05/25 11:02 O2 Flow Rate 2 05/05/25 11:02 Oxygen Flow Rate 4 05/04/25 20:14 BMI result Body Mass Index 37.8 Const: Other: Constitutional : Awake, interactive, looks anxious and in distress Neck : Normal inspection, Supple Cardiovascular : RRR, no JVP, no lower extremity edema Respiratory :decreased bilateral air entry at bases, no crackles, no wheezes or rhonchi Gastrointestinal: soft, lax, Normal bowel sounds, Non tender Skin : Warm, Dry, erythema in feet Neurological : Alert & oriented x3, No focal deficit Objective Data Active Medications Acetaminophen (Acetaminophen 325 Mg Tablet) 650 mg PO Q6H PRN PRN Reason: Pain, Mild 1-3,fever,headache Albuterol/Ipratropium (Albuterol/Iprat 2.5/0.5mg 3 Ml Ampul.Neb) 3 ml INHALE Q4H PRN PRN Reason: Shortness of Breath/Wheezing Budesonide (Budesonide 0.5 Mg/2 Ml Ampul.Neb) 0.5 mg INHALE RBID [facility] Last Admin: 05/05/25 09:23 Dose: 0.5 mg Documented By: RK Calcium Carbonate (Calcium Carbonate 750 Mg Tab.Chew) 750 mg PO Q4H PRN PRN Reason: Heartburn Clotrimazole (Clotrimazole 1 % Cream 15 Gm Tube) 1 appl TOPICAL BID [facility]; Protocol Last Admin: 05/05/25 08:58 Dose: 1 appl Documented By: TY Dextrose (Dextrose 50 % 25 Gm/50 Ml Syringe) 25 gm IVPUSH Q15M PRN; Protocol PRN Reason: per Hypoglycemia Standing Ord. Enoxaparin Sodium (Enoxaparin Sodium 40 Mg/0.4 Ml Syringe) 40 mg SUBCUT Q24H [facility] Last Admin: 05/04/25 23:41 Dose: 40 mg Documented By: TY Glucose (Glucose Gel 15 Gm Gel..Gram.) 15 gm PO Q15M PRN; Protocol PRN Reason: per Hypoglycemia Standing Ord. Cefepime HCl (Maxipime) 2 gm in 50 mls @ 100 mls/hr IV Q8H [facility] Last Infusion: 05/05/25 06:34 Dose: Infused Documented By: TY Vancomycin HCl 1,250 mg/ (Sodium Chloride) 250 mls @ 166.667 mls/hr IV Q12H [facility] Last Admin: 05/05/25 12:37 Dose: 166.67 mls/hr Documented By: HARRIETT Insulin Human Lispro (Insulin Lispro 100 Unit/Ml 3 Ml Vial) 0 unit SUBCUT QIDACHS [facility]; Protocol Last Admin: 05/05/25 12:38 Dose: 2 unit Documented By: HARRIETT Lorazepam (Lorazepam 0.5 Mg Tablet) 0.25 mg PO Q6H PRN PRN Reason: anxiety/restlessness Last Admin: 05/05/25 11:01 Dose: 0.25 mg Documented By: HARRIETT Magnesium Hydroxide (Milk Of Magnesia 30 Ml Oral.Susp) 30 ml PO DAILY PRN PRN Reason: Constipation Melatonin (Melatonin 3 Mg Tablet) 6 mg PO BEDTIME PRN PRN Reason: Insomnia Methylprednisolone Sodium Succinate (Methylprednisolone Sod Succ 125 Mg Vial) 62.5 mg IVPUSH Q12H [facility] Last Admin: 05/05/25 12:38 Dose: 62.5 mg Documented By: HARRIETT Nystatin (Nystatin Powder 15 Gm Bottle) 1 appl TOPICAL BID [facility]; Protocol Last Admin: 05/05/25 08:58 Dose: 1 appl Documented By: TY Nystatin (Nystatin Oral Susp 500,000 Unit/5 Ml Oral.Susp) 400,000 unit PO QID [facility]; Protocol Stop: 05/08/25 08:59 Last Admin: 05/05/25 12:37 Dose: 400,000 unit Documented By: HARRIETT Omeprazole (Omeprazole 20 Mg Capsule.) 20 mg PO DAILY@0630 [facility] Last Admin: 05/05/25 05:42 Dose: 20 mg Documented By: TY Ondansetron HCl (Ondansetron Hcl 4 Mg/2 Ml Vial) 4 mg IVPUSH Q8H PRN PRN Reason: Nausea and Vomiting Oxycodone HCl (Oxycodone Hcl Immed Release 5 Mg Tablet) 5 mg PO Q4H PRN PRN Reason: Pain, Severe (Pain Scale 7-10) Last Admin: 05/05/25 05:42 Dose: 5 mg Documented By: TY Pharmacy Consult (Consult Rx Vancomycin Dosing) 1 each MISCELLANE DAILY PRN PRN Reason: Consult order Polyethylene Glycol (Polyethylene Glycol 3350 17 Gm Powd.Pack) 17 gm PO DAILY PRN PRN Reason: Constipation Senna (Sennosides 8.6 Mg Tablet) 17.2 mg PO BEDTIME [facility] Sodium Chloride (0.9 % Sodium Chloride Flush 3 Ml Syringe) 3 ml IVFLUSH QSHIFT [facility] Last Admin: 05/05/25 09:02 Dose: 3 ml Documented By: TY Labs 05/05/25 02:06 05/05/25 02:06 Labs: Laboratory Results - last 24 hr 05/04/25 05/04/25 05/04/25 20:40 20:45 21:24 MCV 89.8 MCH 30.7 MCHC 34.2 RDW 14.1 Plt Count 365 D MPV 9.7 Immature Gran % (Auto) 2.0 H Neut % (Auto) 77.4 H Lymph % (Auto) 11.[address] [place] % (Auto) 6.3 Eos % (Auto) 1.8 Baso % (Auto) 0.8 Lymph # (Auto) 2.1 [place] # (Auto) 1.2 Eos # (Auto) 0.3 Baso # (Auto) 0.1 Abs Immat Gran (auto) 0.36 H Absolute Neuts (auto) 14.0 H Absolute Nucleated RBC 0.030 H Nucleated RBC % (auto) 0.2 Hold Purple Top O2 Saturation ABG pH at Pt Temp ABG pCO2 at Pt Temp ABG pO2 at Pt Temp ABG HCO3 ABG Base Excess (Actual) Anion Gap 15 Estim Creat Clear Calc 94.6 Estimated GFR > 60 POC Glucose Random Glucose 107 Estimat Average Glucose Hemoglobin A1c % Lactic Acid 2.1 H* Lactic Acid F/U @ 2Hr Lactic Acid F/U @ 4Hr Calcium 9.4 Magnesium Total Bilirubin 0.3 AST 30 ALT 13 Alkaline Phosphatase 109 Troponin I High Sens 4.6 B-Natriuretic Peptide 20 Total Protein 6.6 Albumin 3.8 TSH 5.45 H Free T4 0.87 Urine Color Urine Appearance Urine pH Ur Specific [place] Urine Protein Urine Glucose (UA) Urine Ketones Urine Blood Urine Nitrite Ur Leukocyte Esterase Influenza Type A (PCR) NEGATIVE Influenza Type B (PCR) NEGATIVE RSV RNA Qual (PCR) NEGATIVE SARS-CoV-2 RNA (RT-PCR) NEGATIVE 05/04/25 05/04/25 05/04/25 23:39 23:46 23:57 MCV MCH MCHC RDW Plt Count MPV Immature Gran % (Auto) Neut % (Auto) Lymph % (Auto) [place] % (Auto) Eos % (Auto) Baso % (Auto) Lymph # (Auto) [place] # (Auto) Eos # (Auto) Baso # (Auto) Abs Immat Gran (auto) Absolute Neuts (auto) Absolute Nucleated RBC Nucleated RBC % (auto) Hold Purple Top O2 Saturation 96.0 ABG pH at Pt Temp 7.44 ABG pCO2 at Pt Temp 29 L ABG pO2 at Pt Temp 92 ABG HCO3 20 L ABG Base Excess (Actual) -2.2 Anion Gap Estim Creat Clear Calc Estimated GFR POC Glucose 139 H Random Glucose Estimat Average Glucose Hemoglobin A1c % Lactic Acid Lactic Acid F/U @ 2Hr 2.2 H* Lactic Acid F/U @ 4Hr Calcium Magnesium Total Bilirubin AST ALT Alkaline Phosphatase Troponin I High Sens B-Natriuretic Peptide Total Protein Albumin TSH Free T4 Urine Color Urine Appearance Urine pH Ur Specific [place] Urine Protein Urine Glucose (UA) Urine Ketones Urine Blood Urine Nitrite Ur Leukocyte Esterase Influenza Type A (PCR) Influenza Type B (PCR) RSV RNA Qual (PCR) SARS-CoV-2 RNA (RT-PCR) 05/05/25 05/05/25 05/05/25 02:06 03:08 07:08 MCV 91.5 MCH 30.6 MCHC 33.4 RDW 14.3 Plt Count 361 MPV 10.2 Immature Gran % (Auto) 1.9 H Neut % (Auto) 74.3 H Lymph % (Auto) 16.[address] % (Auto) 6.1 Eos % (Auto) 1.0 Baso % (Auto) 0.7 Lymph # (Auto) 2.4 [place] # (Auto) 0.9 Eos # (Auto) 0.1 Baso # (Auto) 0.1 Abs Immat Gran (auto) 0.28 H Absolute Neuts (auto) 10.9 H Absolute Nucleated RBC 0.030 H Nucleated RBC % (auto) 0.2 Hold Purple Top SEE NOTE O2 Saturation ABG pH at Pt Temp ABG pCO2 at Pt Temp ABG pO2 at Pt Temp ABG HCO3 ABG Base Excess (Actual) Anion Gap 16 Estim Creat Clear Calc 93.3 Estimated GFR > 60 POC Glucose 144 H Random Glucose 151 H Estimat Average Glucose 203 Hemoglobin A1c % 8.7 H Lactic Acid Lactic Acid F/U @ 2Hr Lactic Acid F/U @ 4Hr 3.3 H* Calcium 9.6 Magnesium 2.2 Total Bilirubin 0.2 AST 24 ALT 11 Alkaline Phosphatase 109 Troponin I High Sens B-Natriuretic Peptide Total Protein 6.6 Albumin 3.7 TSH Free T4 Urine Color Yellow Urine Appearance Clear Urine pH 7.0 Ur Specific [place] 1.020 Urine Protein Trace Urine Glucose (UA) Negative Urine Ketones Negative Urine Blood Negative Urine Nitrite Negative Ur Leukocyte Esterase Negative Influenza Type A (PCR) Influenza Type B (PCR) RSV RNA Qual (PCR) SARS-CoV-2 RNA (RT-PCR) 05/05/25 11:25 MCV MCH MCHC RDW Plt Count MPV Immature Gran % (Auto) Neut % (Auto) Lymph % (Auto) [place] % (Auto) Eos % (Auto) Baso % (Auto) Lymph # (Auto) [place] # (Auto) Eos # (Auto) Baso # (Auto) Abs Immat Gran (auto) Absolute Neuts (auto) Absolute Nucleated RBC Nucleated RBC % (auto) Hold Purple Top O2 Saturation ABG pH at Pt Temp ABG pCO2 at Pt Temp ABG pO2 at Pt Temp ABG HCO3 ABG Base Excess (Actual) Anion Gap Estim Creat Clear Calc Estimated GFR POC Glucose 171 H Random Glucose Estimat Average Glucose Hemoglobin A1c % Lactic Acid Lactic Acid F/U @ 2Hr Lactic Acid F/U @ 4Hr Calcium Magnesium Total Bilirubin AST ALT Alkaline Phosphatase Troponin I High Sens B-Natriuretic Peptide Total Protein Albumin TSH Free T4 Urine Color Urine Appearance Urine pH Ur Specific [place] Urine Protein Urine Glucose (UA) Urine Ketones Urine Blood Urine Nitrite Ur Leukocyte Esterase Influenza Type A (PCR) Influenza Type B (PCR) RSV RNA Qual (PCR) SARS-CoV-2 RNA (RT-PCR) Assessment and Plan (1) Acute respiratory failure with hypoxia: Status: Acute (2) Bilateral pneumonia: Status: Acute (3) Maculopapular rash, localized: Status: Acute (4) Recurrent pleural effusion: Status: Acute (5) Malignant pleural effusion: Status: Acute Plan Patient is a 65-year-old female with past medical history insulin- dependent diabetes on Trulicity, restless leg syndrome, depression/ anxiety, chronic pain management with oxycodone, iron deficiency anemia, hyperlipidemia, hypertension, breast cancer with history of left mastectomy, COPD not on home O2, HFpEF, peripheral vascular disease and obesity is being admitted for pneumonia, recurrent malignant pleural effusions with HER2 FISH positive pathology from 04/14 and expert consultation with Pulmonary, Oncology and possibly vascular for an abnormal defect found in the left subclavian artery. Patient found negative for PE. Patient does have a mildly elevated lactic acid and leukocytosis. Case management also consulted has patient's condition is advancing and patient is in need of support in the home setting. It is possible patient may benefit from pulmonary rehab/short-term rehab status post this admission and will most likely require oxygen for discharge in the home setting. Acute hypoxic respiratory failure 2/2 pleural effusion Lt and Pneumonia complicated with sepsis Telemetry and continuous pulse ox Duo nebs, Budesonide pending cultures IV Lasix Supportive care, Incentive spirometer as tolerated Pulmonary consult,CT showing [id number] recurrent pleural effusion. Would consider placement of PleurX on the left side. to place Lt Pleurx tomorrow Continue cefepime and vancomycin Incentive spirometry Wean O2 down as tolerated Home O2 eval prior to discharge Recurrent malignant pleural effusions Pathology indicated back in March of 2025 HER2 fish was positive Oncology consulted, patient was not able to make the outpatient appointment due to inability to leave the home secondary to severe shortness of breath Pleurix PT eval COPD exacerbation Methylprednisolone 60 b.i.d. Magnesium 2 GMS ordered breathing treatments and supportive care with oxygen via [place] Abnormal filling defect of left subclavian artery found on previous CT scan Patient is having increasing pain in the left arm no BP readings in Lt arm Vascular consulted Insulin-dependent diabetes Sliding scale insulin Diabetic diet Thrush Nystatin swish and swallow ordered Monitor closely Fungal rash B feet Clotrimazole topically Chronic urinary stress incontinence UA pending itz wick in place Nystatin powder as needed for perineal redness DVT prophylaxis: Lovenox PPI prophylaxis: Omeprazole Full Code status The patient will need overnight hospital stay for treatment of acute hypoxemia pending blood cultures and IR intervention Quality Stroke Does the patient have a stroke diagnosis?: No Reason for No Anti-thrombotic by Day Two: N/A - Med Ordered VTE Prior VTE?: No VTE Risk Level:: Medical - moderate - high VTE Device Contraindication: N/A - Device Ordered VTE Drug Contraindication: N/A - Med Ordered
[2025-05-05] MEDS: Albuterol/Iprat 2.5/0.5MG 3 ML AMPUL.NEB INHALE (14:58)
--- NOTE | 2025-05-05 16:03 | PHA.MEDREC ---
Pharmacy Consult ? Medication Reconciliation Pharmacy has completed the medication reconciliation. Patient was recently discharged on 04/25/25 and she can't recall her medications nor the last time she took them (too much shortness of breath to take her meds). Spoke to daughter Henna over the phone who confirmed pt's meds have not changed since the last visit and she still has 1 day left of the cefuroxime and doxycycline to take and she has started taking the furosemide 20 mg daily.
[2025-05-05 17:00] LABS: Glucose, Whole Blood 251 mg/dL (60-115)
--- NOTE | 2025-05-05 18:54 | PC.NURSE ---
Report kassandran to MONSERRAT Sanders.
[2025-05-05 20:57] LABS: Glucose, Whole Blood 318 mg/dL (60-115)
[2025-05-05] MEDS: rOPINIRole HCL 1 MG TABLET PO (21:34)
[2025-05-05] MEDS: Tolterodine Tartrate LA 4 MG CAP.ER.24H PO (21:35)
[2025-05-05] MEDS: Sennosides 8.6 MG TABLET 17.2 MG PO (21:35)
--- NOTE | 2025-05-05 23:47 | PC.NURSE ---
Upon patient moving, becomes significantly short of breath though O2 sat remains in 90s. Resp rate in upper 30s to low 40s. Pt coached on deep breathing in through nose and out through mouth to recover breathing. Resp therapy to bedside. parking technician assisted patient to clean up from bowel movement and assisted back into bed. Call reed in reach and patient understands use.
[2025-05-06] VITALS (15 sets, daily range): BP systolic 112–161; BP diastolic 54–83; PULSE 76–120; RESP 16–32; TEMP 36.3–36.6; O2SAT 89–99; BMI 39.7
[2025-05-06] MEDS: vancomycin HCL 1,250 MG in 0.9 % Sodium Chloride 250 ML 166.67 MG IV ×3 (00:11→23:51)
[2025-05-06] MEDS: LORazepam 0.5 MG TABLET 0.25 MG PO ×2 (01:49→06:27)
[2025-05-06] MEDS: Albuterol/Iprat 2.5/0.5MG 3 ML AMPUL.NEB INHALE ×4 (02:55→14:28)
[2025-05-06 04:56] LABS: MANUAL DIFF FLAG NO
[2025-05-06 04:57] LABS: Basophils Absolute Auto 0.1 X10*3/uL (0.0-0.2); Basophils Percent Auto 0.4 % (0-2); Hematocrit 37.6 % (37.0-47.0); Hemoglobin 12.8 g/dl (12.0-16.0); Imm Gran Abs Auto 0.33 X10*3/uL (0.00-0.03); Imm Gran Pct Auto 2.4 % (0.0-0.4); Lymphocytes Absolute Auto 1.1 X10*3/uL (1.2-4.9); Lymphocytes Percent Auto 8.3 % (20-40); Mean Corpuscular Hemoglobin 30.5 pg (27.0-33.0); Mean Corpuscular Volume 89.7 fL (80.0-98.0); Mean Platelet Volume 9.6 fL (9.4-12.3); Monocytes Absolute Auto 0.3 X10*3/uL (0.1-1.2); Monocytes Percent Auto 2.1 % (2-11); NRBC Pct Auto 0.1 /100WBC (0.0-0.2); Neutrophils Absolute Auto 11.7 x10*3/uL (2.0-8.3); Neutrophils Percent Auto 86.8 % (45-73); Platelet Count 354 X10*3/uL (160-400); Red Blood Count 4.19 X10*6/uL (4.20-5.50); Red Cell Distribution Width 14.2 % (11.0-16.0); White Blood Count 13.5 X10*3/uL (4.8-10.8)
[2025-05-06 05:11] LABS: INTERNATIONAL NORM RATIO 1.1 (0.9-1.1); Prothrombin Time 12.2 SEC (10.9-12.4)
[2025-05-06 05:17] LABS: Anion Gap 16 (12-20); Blood Urea Nitrogen 15 mg/dL (9-16); Calcium 9.7 mg/dL (8.4-10.2); Carbon Dioxide 20 mmol/L (22-29); Chloride 108 mmol/L (96-108); Creatinine Clr Calc Pharmacy 100.5; Estimated Glomerular Filt Rate > 60; Glucose Random 211 mg/dL (60-115); Potassium 4.4 mmol/L (3.3-5.1); Sodium 140 mmol/L (135-145)
[2025-05-06] MEDS: Omeprazole 20 MG CAPSULE.DR PO (06:08)
[2025-05-06] MEDS: cefEPime HCl/D5W 2 GM/50 ML PIGGYBACK IV ×2 (06:08→17:32)
[2025-05-06] MEDS: Budesonide 0.5 MG/2 ML AMPUL.NEB INHALE ×2 (06:31→19:00)
[2025-05-06 07:23] LABS: Glucose, Whole Blood 247 mg/dL (60-115)
[2025-05-06] MEDS: Insulin Lispro 100 UNIT/ML 3 ML VIAL SUBCUT ×3 (07:26→21:39)
[2025-05-06] MEDS: Nystatin Oral Susp 500,000 UNIT/5 ML ORAL.SUSP 400000 UNIT PO ×4 (07:26→21:38)
[2025-05-06] MEDS: Insulin Glargine,Hum.rec.anlog 100 UNIT/ML 10 ML VIAL 28 UNIT SUBCUT (07:26)
[2025-05-06] MEDS: Nystatin Powder 15 GM BOTTLE 1 APPL TOPICAL (07:27)
[2025-05-06] MEDS: Aspirin Enteric Coated 81 MG TABLET.DR PO (07:27)
[2025-05-06] MEDS: Atorvastatin Calcium 80 MG TABLET PO (07:27)
[2025-05-06] MEDS: oxyCODONE HCl Immed Release 5 MG TABLET PO ×2 (07:27→17:31)
[2025-05-06] MEDS: rOPINIRole HCL 1 MG TABLET PO ×2 (07:27→21:39)
[2025-05-06] MEDS: Cyanocobalamin (Vitamin B-12) 1,000 MCG TABLET 1000 MCG PO (07:27)
[2025-05-06 08:38] LABS: Glucose, Whole Blood 265 mg/dL (60-115)
[2025-05-06] MEDS: Letrozole 2.5 MG TABLET PO (09:49)
[2025-05-06] MEDS: 0.9 % Sodium Chloride Flush 3 ML SYRINGE IVFLUSH (09:49)
[2025-05-06] MEDS: Zinc Sulfate 220 MG CAPSULE PO (09:49)
[2025-05-06] MEDS: PARoxetine HCL 20 MG TABLET PO (09:49)
[2025-05-06 10:33] LABS: Vancomycin Random 16.5 mcg/mL (15-20)
[2025-05-06 11:40] LABS: Glucose, Whole Blood 191 mg/dL (60-115)
--- NOTE | 2025-05-06 12:07 | MHC.CM.PN ---
CM ATTEMPTED TO MEET WITH PT WHO WAS OFF UNIT CM TO REVISIT
--- NOTE | 2025-05-06 12:32 | MHC.CLN ---
NUTRITION NPO FOR PROCEDURE. OBESE WITH BMI=39.7. METASTATIC PLEURAL EFFUSION. HX BREAST CANCER. HAX DX DM WITH A1C=8.7 SHOWING POOR/FAIR BLOOD GLUCOSE CONTROL. FOLLOW FOR DIET ADVANCEMENT AND PO INTAKE. SEE CLINICAL NUTRITION ASSESSMENT 05/06/25.
[2025-05-06] MEDS: Midazolam HCl 2 MG/2 ML VIAL 1 MG IVPUSH (12:43)
[2025-05-06] MEDS: fentaNYL citrate/PF 100 MCG/2 ML VIAL 25 MCG IVPUSH (12:43)
--- NOTE | 2025-05-06 13:35 | P.CONGS_ITS ---
History of Present Illness Consult details Consult date: 05/06/25 Reason for consult: other Narrative: 65-year-old diabetic morbidly obese female presents for evaluation regarding left subclavian artery stenosis/occlusion. This was incidentally noted on CT angiogram dated 04/24/2025. This was done for CT chest PE protocol. She has been admitted to the hospital for repeated pleural effusions. Actually at the time of my exam she was down getting a PleurX catheter. She now presents to us for vascular evaluation. Review of Systems 2 Review of Systems: Yes all other systems are reviewed and are negative Constitutional: Constitutional: Reports no additional constitutional complaints ENT: Reports Normal hearing present Cardiovascular: Cardiovascular: Denies chest pain, Denies chest pain at rest, Denies chest pain with activity and Denies pedal edema Respiratory: Respiratory: Denies cough Gastrointestinal: Gastrointestinal: Denies abdominal pain Musculoskeletal: Musculoskeletal: Denies abnormal gait, Denies muscle cramps and Denies radiating pain into limb Integumentary/Breasts: Skin/Breast: Denies skin ulcer and Denies wounds Neurologic: Reports Normal hearing present and Denies abnormal gait Psychiatric: Psychiatric: Reports no additional psychiatric complaints [facility] Past Medical History Medical History Generalized anxiety disorder TIA (transient ischemic attack) (~12/2024) Recent bereavement Environmental and seasonal allergies HLD (hyperlipidemia) Multinodular goiter Peripheral neuropathy History of short term memory loss Port-A-Cath in place Smoker Family history of prostate cancer in father Leg swelling Shortness of breath Effusion of left knee Weakness Fall Thyroid nodule Adrenal adenoma Vision changes Diabetes History of palpitations History of unsteady gait Low back pain Arthritis Mild heartburn Hx of renal calculi Vaginal yeast infection Encounter to discuss test results 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 Brother No problems noted. Daughter No problems noted. Surgical History Surgical History Hx of colonoscopy H/O total mastectomy of left breast (12/21/22) History of biopsy History of endometrial ablation Hx of tubal ligation History of tonsillectomy History of appendectomy History of cholecystectomy History of bladder surgery History of left knee replacement Social History Social History Household Members: Children Household Members Other:: adult daughter Housing: House Are you a primary zoo caretaker to a significant other at home: No Do you presently have visiting nurse or other home services: Yes 75 years or older and lives alone: No Alcohol intake: current Alcohol intake frequency: holidays/special occasions only Comment: Fell 08/2022, leg weakness 1 glass on holidays Patient Tobacco Use Status: Former Tobacco user Tobacco use type: Cigarette Cigarette Packs Per Day: 1 Years Smoked: 40, 1 pack a day e-Cigarette/Vaping Use: Former Use Second Hand Smoke Exposure: No Advance Directives Date on File: 04/26/25 service: No Current occupational status: disabled Cognitive needs: No Hearing needs: No Vision needs: Yes Travel History Ebola Risk: Travel/Contact With Anyone From Affected Area/s: No Has Patient Experienced Ebola Symptoms: No Meds Allergies Allergy/AdvReac Type Severity Reaction Status Date / Time diclofenac [From Voltaren] Allergy Severe enlarged Verified 05/04/25 20:15 liver lisinopril [From Zestril] Allergy Severe Angioedema Verified 05/04/25 20:15 losartan Allergy Severe Angioedema Verified 05/04/25 20:15 omeprazole Allergy Intermediate elevated Verified 05/04/25 20:15 blood pressure Penicillins [PENICILLINS] Allergy Intermediate Facial Verified 05/04/25 20:15 Swelling oxybutynin [Oxybutynin] AdvReac Severe body Verified 05/04/25 20:15 twitching gabapentin AdvReac Intermediate Hypertensio Verified 05/04/25 20:15 n metformin AdvReac Intermediate Diarrhea Verified 05/04/25 20:15 duloxetine AdvReac Intermediate tachycardia Uncoded 04/22/25 22:50 Active Medications: Current Medications Acetaminophen (Acetaminophen 325 Mg Tablet) 650 mg PO Q6H PRN PRN Reason: Pain, Mild 1-3,fever,headache Albuterol/Ipratropium (Albuterol/Iprat 2.5/0.5mg 3 Ml Ampul.Neb) 3 ml INHALE Q4H PRN PRN Reason: Shortness of Breath/Wheezing Last Admin: 05/06/25 10:37 Dose: 3 ml Aspirin (Aspirin Enteric Coated 81 Mg Tablet.) 81 mg PO DAILY [facility] Last Admin: 05/06/25 07:27 Dose: 81 mg Atorvastatin Calcium (Atorvastatin Calcium 80 Mg Tablet) 80 mg PO DAILY [facility] Last Admin: 05/06/25 07:27 Dose: 80 mg Budesonide (Budesonide 0.5 Mg/2 Ml Ampul.Neb) 0.5 mg INHALE RBID [facility] Last Admin: 05/06/25 06:31 Dose: 0.5 mg Calcium Carbonate (Calcium Carbonate 750 Mg Tab.Chew) 750 mg PO Q4H PRN PRN Reason: Heartburn Clotrimazole (Clotrimazole 1 % Cream 15 Gm Tube) 1 appl TOPICAL BID [facility]; Protocol Last Admin: 05/06/25 09:50 Dose: Not Given Cyanocobalamin (Cyanocobalamin (Vitamin B-12) 1,000 Mcg Tablet) 1,000 mcg PO DAILY [facility] Last Admin: 05/06/25 07:27 Dose: 1,000 mcg Dextrose (Dextrose 50 % 25 Gm/50 Ml Syringe) 25 gm IVPUSH Q15M PRN; Protocol PRN Reason: per Hypoglycemia Standing Ord. Enoxaparin Sodium (Enoxaparin Sodium 40 Mg/0.4 Ml Syringe) 40 mg SUBCUT Q24H [facility] Last Admin: 05/04/25 23:41 Dose: 40 mg Ferrous Sulfate (Ferrous Sulfate 324 Mg Tablet.) 324 mg PO FR@0900 [facility] Glucose (Glucose Gel 15 Gm Gel..Gram.) 15 gm PO Q15M PRN; Protocol PRN Reason: per Hypoglycemia Standing Ord. Cefepime HCl (Maxipime) 2 gm in 50 mls @ 100 mls/hr IV Q8H [facility] Last Infusion: 05/06/25 06:56 Dose: Infused Vancomycin HCl 1,250 mg/ (Sodium Chloride) 250 mls @ 166.667 mls/hr IV Q12H [facility] Last Infusion: 05/06/25 01:41 Dose: Infused Insulin Glargine (Insulin Glargine,Hum.Rec.Anlog 100 Unit/Ml 10 Ml Vial) 28 unit SUBCUT DAILY [facility] Last Admin: 05/06/25 07:26 Dose: 28 unit Insulin Human Lispro (Insulin Lispro 100 Unit/Ml 3 Ml Vial) 0 unit SUBCUT QIDACHS [facility]; Protocol Last Admin: 05/06/25 11:44 Dose: Not Given Letrozole (Letrozole 2.5 Mg Tablet) 2.5 mg PO DAILY [facility] Last Admin: 05/06/25 09:49 Dose: 2.5 mg Lorazepam (Lorazepam 0.5 Mg Tablet) 0.25 mg PO Q6H PRN PRN Reason: anxiety/restlessness Last Admin: 05/06/25 06:27 Dose: 0.25 mg Magnesium Hydroxide (Milk Of Magnesia 30 Ml Oral.Susp) 30 ml PO DAILY PRN PRN Reason: Constipation Melatonin (Melatonin 3 Mg Tablet) 6 mg PO BEDTIME PRN PRN Reason: Insomnia Methylprednisolone Sodium Succinate (Methylprednisolone Sod Succ 125 Mg Vial) 62.5 mg IVPUSH Q12H [facility] Last Admin: 05/06/25 00:09 Dose: 62.5 mg Nystatin (Nystatin Powder 15 Gm Bottle) 1 appl TOPICAL BID [facility]; Protocol Last Admin: 05/06/25 07:27 Dose: 1 appl Nystatin (Nystatin Oral Susp 500,000 Unit/5 Ml Oral.Susp) 400,000 unit PO QID [facility]; Protocol Stop: 05/08/25 08:59 Last Admin: 05/06/25 07:26 Dose: 400,000 unit Omeprazole (Omeprazole 20 Mg Capsule.Dr) 20 mg PO DAILY@0630 [facility] Last Admin: 05/06/25 06:08 Dose: 20 mg Ondansetron HCl (Ondansetron Hcl 4 Mg/2 Ml Vial) 4 mg IVPUSH Q8H PRN PRN Reason: Nausea and Vomiting Oxycodone HCl (Oxycodone Hcl Immed Release 5 Mg Tablet) 5 mg PO Q4H PRN PRN Reason: Pain, Severe (Pain Scale 7-10) Last Admin: 05/06/25 07:27 Dose: 5 mg Paroxetine HCl (Paroxetine Hcl 20 Mg Tablet) 20 mg PO DAILY [facility] Last Admin: 05/06/25 09:49 Dose: 20 mg Pharmacy Consult (Consult Rx Vancomycin Dosing) 1 each MISCELLANE DAILY PRN PRN Reason: Consult order Polyethylene Glycol (Polyethylene Glycol 3350 17 Gm Powd.Pack) 17 gm PO DAILY PRN PRN Reason: Constipation Ropinirole HCl (Ropinirole Hcl 1 Mg Tablet) 1 mg PO BID [facility] Last Admin: 05/06/25 07:27 Dose: 1 mg Senna (Sennosides 8.6 Mg Tablet) 17.2 mg PO BEDTIME [facility] Last Admin: 05/05/25 21:35 Dose: 17.2 mg Sodium Chloride (0.9 % Sodium Chloride Flush 3 Ml Syringe) 3 ml IVFLUSH QSHIFT [facility] Last Admin: 05/06/25 09:49 Dose: 3 ml Tolterodine Tartrate (Tolterodine Tartrate La 4 Mg Cap.Er.24h) 4 mg PO BEDTIME [facility] Last Admin: 05/05/25 21:35 Dose: 4 mg Triamcinolone Acetonide (Triamcinolone Acet 0.1 % Cream 15 Gm Tube) 1 appl TOPICAL DAILY PRN; Protocol PRN Reason: Itchy/Dry Skin Zinc Sulfate (Zinc Sulfate 220 Mg Capsule) 220 mg PO DAILY [facility] Last Admin: 05/06/25 09:49 Dose: 220 mg Home Medications ?Medication ?Instructions ?Recorded ?Confirmed ?Last Taken ?Type acetaminophen 325 mg capsule 325 mg PO QID PRN Pain 09/01/22 05/05/25 Unknown History cyanocobalamin (vitamin B-12) 1,000 mcg PO DAILY 09/04/22 05/05/25 04/21/25 History 1,000 mcg tablet ferrous sulfate 325 mg (65 mg 325 mg PO FR@0900 08/09/24 05/05/25 04/19/25 History iron) tablet (Iron (ferrous sulfate)) zinc gluconate 50 mg tablet 50 mg PO DAILY 08/09/24 05/05/25 04/21/25 History atorvastatin 80 mg tablet 80 mg PO DAILY 04/03/25 05/05/25 04/21/25 History cholecalciferol (vitamin D3) 50 50 mcg PO Q48H 04/03/25 05/05/25 04/20/25 History mcg (2,000 unit) capsule clotrimazole 1 % topical cream 1 appl topical BID PRN Fungal 04/03/25 05/05/25 Unknown History Infections insulin aspart U-100 100 unit/mL 10 - 20 unit subcut TIDAC 04/03/25 05/05/2504/21/25 History (3 mL) subcutaneous pen (Novolog FlexPen U-100 Insulin aspart) ondansetron 4 mg disintegrating 4 mg PO Q8H PRN Nausea And Vomiting 04/03/25 05/05/25 Unknown History tablet sennosides 8.6 mg tablet (Senokot) 8.6 mg PO BID PRN Constipation 04/03/25 05/05/25 04/02/25 History solifenacin 5 mg tablet (Vesicare) 5 mg PO BEDTIME 04/03/25 05/05/25 04/20/25 History triamcinolone acetonide 0.1 % 1 appl topical DAILY PRN Itchy/Dry 04/03/25 05/05/25 Unknown History topical cream Skin dulaglutide 1.5 mg/0.5 mL 1.5 mg subcut FR 04/22/25 05/05/25 04/19/25 History subcutaneous pen injector (Trulicity) Physical Exam 2 Vital Signs: Vital Signs: Last Vital Signs Temp 97.3 F 05/06/25 08:00 Pulse 118 H 05/06/25 13:03 Resp 22 H 05/06/25 13:03 BP 161/83 H 05/06/25 13:03 Pulse Ox 97 05/06/25 13:03 O2 Del Method Non-Rebreather Ma sk 05/06/25 13:03 O2 Flow Rate 15 05/06/25 13:03 Oxygen Flow Rate 4 05/04/25 20:14 BMI result Body Mass Index 39.7 Const: General: cooperative, healthy appearing and comfortable O rientation/consciousness: oriented to person, oriented to place and oriented to time HEENT: Head: Yes normal to inspection Neck: Neck: Yes normal visual inspection Carotids: no bruits Chest: Chest palpation & inspection: normal inspection of the chest Resp: Effort & Inspection: normal respiratory effort and able to speak in complete sentences Auscultation: clear to auscultation bilaterally, no crackles, no rales, no rhonchi and no wheezes Cardio: Other: Left upper extremity brachial radial ulnar signals only. Rate: regular rate Rhythm: regular rhythm Heart sounds: S1 normal heart sound present and S2 normal heart sound present Bruits: no carotid bruits Peripheral pulses: Peripheral pulses 2+ throughout GI: Inspection: Yes normal to inspection Skin: Wounds: no wounds Hair: normal Neuro: General: oriented to person, oriented to place and oriented to time Cranial nerves: Yes CN's II-XII intact bilaterally and Yes Normal hearing present Cognition (Neuro): normal cognition Motor exam (neuro): 5/5 motor strength present throughout Extrem: Other: venous exam: No significant superficial varicosities or spider telangiectasias, minimal edema General: No clubbing, No cyanosis and No edema Psych: Appearance: grossly normal Mental Status: mental status grossly normal Speech and movement: Normal speech and movement present Results Labs 05/06/25 04:36 05/06/25 04:36 Labs: Abnormal lab results 05/05/25 05/05/25 05/06/25 Range/Units 16:56 20:53 04:36 WBC 13.5 H (4.8-10.8) X10*3/uL RBC 4.19 L (4.20-5.50) X10*6/uL Immature Gran % (Auto) 2.4 H (0.0-0.4) % Neut % (Auto) 86.8 H (45-73) % Lymph % (Auto) 8.3 L (20-40) % Lymph # (Auto) 1.1 L (1.2-4.9) X10*3/uL Abs Immat Gran (auto) 0.33 H (0.00-0.03) X10*3/uL Absolute Neuts (auto) 11.7 H (2.0-8.3) x10*3/uL Absolute Nucleated RBC 0.020 H (0.0-0.012) X10*3/uL Carbon Dioxide 20 L (22-29) mmol/L POC Glucose 251 H 318 H (60-115) mg/dL Random Glucose 211 H (60-115) mg/dL 05/06/25 05/06/25 05/06/25 Range/Units 07:20 08:33 11:23 WBC (4.8-10.8) X10*3/uL RBC (4.20-5.50) X10*6/uL Immature Gran % (Auto) (0.0-0.4) % Neut % (Auto) (45-73) % Lymph % (Auto) (20-40) % Lymph # (Auto) (1.2-4.9) X10*3/uL Abs Immat Gran (auto) (0.00-0.03) X10*3/uL Absolute Neuts (auto) (2.0-8.3) x10*3/uL Absolute Nucleated RBC (0.0-0.012) X10*3/uL Carbon Dioxide (22-29) mmol/L POC Glucose 247 H 265 H 191 H (60-115) mg/dL Random Glucose (60-115) mg/dL Short CBC 05/06/25 Range/Units 04:36 WBC 13.5 H (4.8-10.8) X10*3/uL Hgb 12.8 (12.0-16.0) g/dl Hct 37.6 (37.0-47.0) % Plt Count 354 (160-400) X10*3/uL BMP 05/06/25 04:36 Sodium 140 Potassium 4.4 Chloride 108 Carbon Dioxide 20 L BUN 15 Creatinine 0.65 Calcium 9.7 Urine 05/05/25 Range/Units 03:08 Urine Color Yellow Urine Appearance Clear Urine pH 7.0 (5.0-9.0) Ur Specific [place] 1.020 (1.005-1.025) Urine Protein Trace (Neg-Trace) mg/dL Urine Glucose (UA) Negative (Negative) mg/dL All other labs normal. Assessment and Plan (1) Stenosis of left subclavian artery: Status: Acute Plan In short there is concern about left subclavian artery stenosis. At the current time her arm does appear to be stable. She has multiple other medical issues going on at the current time and would not intervene. Would recommend no IVs blood pressures or blood draws from that left upper extremity. In addition she has had a left sided mastectomy so it should be avoided for that reason as well. We will follow on an as-needed basis. Thank you for allowing us to assist in her care. If there are any questions or concerns please do not hesitate to contact us Procedures Date of Service Date of Service: 05/06/25
--- NOTE | 2025-05-06 13:42 | HO.PM.IMPN ---
Subjective Subjective Date of Service: 05/06/25 Interval History: Seen and evaluated this morning less anxious and shortness of breath plan for Pleurix cath no reported events overnight Review of Systems Review of Systems: Yes all other systems are reviewed and are negative Physical Exam Vital Signs: Vital Signs: Last Vital Signs Temp 97.3 F 05/06/25 08:00 Pulse 118 H 05/06/25 13:03 Resp 22 H 05/06/25 13:03 BP 161/83 H 05/06/25 13:03 Pulse Ox 97 05/06/25 13:03 O2 Del Method Non-Rebreather Ma sk 05/06/25 13:03 O2 Flow Rate 15 05/06/25 13:03 Oxygen Flow Rate 4 05/04/25 20:14 BMI result Body Mass Index 39.7 Const: Other: Constitutional : Awake, interactive, looks anxious and in distress Neck : Normal inspection, Supple Cardiovascular : RRR, no JVP, no lower extremity edema Respiratory :decreased bilateral air entry at bases, no crackles, no wheezes or rhonchi Gastrointestinal: soft, lax, Normal bowel sounds, Non tender Skin : Warm, Dry, erythema in feet Neurological : Alert & oriented x3, No focal deficit Objective Data Active Medications Acetaminophen (Acetaminophen 325 Mg Tablet) 650 mg PO Q6H PRN PRN Reason: Pain, Mild 1-3,fever,headache Albuterol/Ipratropium (Albuterol/Iprat 2.5/0.5mg 3 Ml Ampul.Neb) 3 ml INHALE Q4H PRN PRN Reason: Shortness of Breath/Wheezing Last Admin: 05/06/25 10:37 Dose: 3 ml Documented By: RHYS Aspirin (Aspirin Enteric Coated 81 Mg Tablet.) 81 mg PO DAILY [facility] Last Admin: 05/06/25 07:27 Dose: 81 mg Documented By: MILDRED Atorvastatin Calcium (Atorvastatin Calcium 80 Mg Tablet) 80 mg PO DAILY [facility] Last Admin: 05/06/25 07:27 Dose: 80 mg Documented By: MILDRED Budesonide (Budesonide 0.5 Mg/2 Ml Ampul.Neb) 0.5 mg INHALE RBID [facility] Last Admin: 05/06/25 06:31 Dose: 0.5 mg Documented By: AIMEE Calcium Carbonate (Calcium Carbonate 750 Mg Tab.Chew) 750 mg PO Q4H PRN PRN Reason: Heartburn Clotrimazole (Clotrimazole 1 % Cream 15 Gm Tube) 1 appl TOPICAL BID [facility]; Protocol Last Admin: 05/06/25 09:50 Dose: Not Given Documented By: JUAN FRANCISCO Non-Admin Reason: not available Cyanocobalamin (Cyanocobalamin (Vitamin B-12) 1,000 Mcg Tablet) 1,000 mcg PO DAILY [facility] Last Admin: 05/06/25 07:27 Dose: 1,000 mcg Documented By: MILDRED Dextrose (Dextrose 50 % 25 Gm/50 Ml Syringe) 25 gm IVPUSH Q15M PRN; Protocol PRN Reason: per Hypoglycemia Standing Ord. Enoxaparin Sodium (Enoxaparin Sodium 40 Mg/0.4 Ml Syringe) 40 mg SUBCUT Q24H [facility] Last Admin: 05/04/25 23:41 Dose: 40 mg Documented By: TY Ferrous Sulfate (Ferrous Sulfate 324 Mg Tablet.Dr) 324 mg PO FR@0900 [facility] Glucose (Glucose Gel 15 Gm Gel..Gram.) 15 gm PO Q15M PRN; Protocol PRN Reason: per Hypoglycemia Standing Ord. Cefepime HCl (Maxipime) 2 gm in 50 mls @ 100 mls/hr IV Q8H [facility] Last Infusion: 05/06/25 06:56 Dose: Infused Documented By: CAROLINA Vancomycin HCl 1,250 mg/ (Sodium Chloride) 250 mls @ 166.667 mls/hr IV Q12H [facility] Last Infusion: 05/06/25 01:41 Dose: Infused Documented By: KOMAL Insulin Glargine (Insulin Glargine,Hum.Rec.Anlog 100 Unit/Ml 10 Ml Vial) 28 unit SUBCUT DAILY [facility] Last Admin: 05/06/25 07:26 Dose: 28 unit Documented By: MILDRED Insulin Human Lispro (Insulin Lispro 100 Unit/Ml 3 Ml Vial) 0 unit SUBCUT QIDACHS [facility]; Protocol Last Admin: 05/06/25 11:44 Dose: Not Given Documented By: JUAN FRANCISCO Non-Admin Reason: NPO/ off unit for surgery Letrozole (Letrozole 2.5 Mg Tablet) 2.5 mg PO DAILY [facility] Last Admin: 05/06/25 09:49 Dose: 2.5 mg Documented By: JUAN FRANCISCO Lorazepam (Lorazepam 0.5 Mg Tablet) 0.25 mg PO Q6H PRN PRN Reason: anxiety/restlessness Last Admin: 05/06/25 06:27 Dose: 0.25 mg Documented By: KOMAL Magnesium Hydroxide (Milk Of Magnesia 30 Ml Oral.Susp) 30 ml PO DAILY PRN PRN Reason: Constipation Melatonin (Melatonin 3 Mg Tablet) 6 mg PO BEDTIME PRN PRN Reason: Insomnia Methylprednisolone Sodium Succinate (Methylprednisolone Sod Succ 125 Mg Vial) 62.5 mg IVPUSH Q12H [facility] Last Admin: 05/06/25 00:09 Dose: 62.5 mg Documented By: KOMAL Nystatin (Nystatin Powder 15 Gm Bottle) 1 appl TOPICAL BID [facility]; Protocol Last Admin: 05/06/25 07:27 Dose: 1 appl Documented By: MILDRED Nystatin (Nystatin Oral Susp 500,000 Unit/5 Ml Oral.Susp) 400,000 unit PO QID [facility]; Protocol Stop: 05/08/25 08:59 Last Admin: 05/06/25 07:26 Dose: 400,000 unit Documented By: MILDRED Omeprazole (Omeprazole 20 Mg Capsule.) 20 mg PO DAILY@0630 [facility] Last Admin: 05/06/25 06:08 Dose: 20 mg Documented By: KOMAL Ondansetron HCl (Ondansetron Hcl 4 Mg/2 Ml Vial) 4 mg IVPUSH Q8H PRN PRN Reason: Nausea and Vomiting Oxycodone HCl (Oxycodone Hcl Immed Release 5 Mg Tablet) 5 mg PO Q4H PRN PRN Reason: Pain, Severe (Pain Scale 7-10) Last Admin: 05/06/25 07:27 Dose: 5 mg Documented By: MILDRED Paroxetine HCl (Paroxetine Hcl 20 Mg Tablet) 20 mg PO DAILY [facility] Last Admin: 05/06/25 09:49 Dose: 20 mg Documented By: JUAN FRANCISCO Pharmacy Consult (Consult Rx Vancomycin Dosing) 1 each MISCELLANE DAILY PRN PRN Reason: Consult order Polyethylene Glycol (Polyethylene Glycol 3350 17 Gm Powd.Pack) 17 gm PO DAILY PRN PRN Reason: Constipation Ropinirole HCl (Ropinirole Hcl 1 Mg Tablet) 1 mg PO BID [facility] Last Admin: 05/06/25 07:27 Dose: 1 mg Documented By: MILDRED Senna (Sennosides 8.6 Mg Tablet) 17.2 mg PO BEDTIME [facility] Last Admin: 05/05/25 21:35 Dose: 17.2 mg Documented By: KOMAL Sodium Chloride (0.9 % Sodium Chloride Flush 3 Ml Syringe) 3 ml IVFLUSH QSHIFT [facility] Last Admin: 05/06/25 09:49 Dose: 3 ml Documented By: JUAN FRANCISCO Tolterodine Tartrate (Tolterodine Tartrate La 4 Mg Cap.Er.24h) 4 mg PO BEDTIME [facility] Last Admin: 05/05/25 21:35 Dose: 4 mg Documented By: KOMAL Triamcinolone Acetonide (Triamcinolone Acet 0.1 % Cream 15 Gm Tube) 1 appl TOPICAL DAILY PRN; Protocol PRN Reason: Itchy/Dry Skin Zinc Sulfate (Zinc Sulfate 220 Mg Capsule) 220 mg PO DAILY [facility] Last Admin: 05/06/25 09:49 Dose: 220 mg Documented By: JUAN FRANCISCO Labs 05/06/25 04:36 05/06/25 04:36 Labs: Laboratory Results - last 24 hr 05/05/25 05/05/25 05/06/25 16:56 20:53 04:36 MCV 89.7 MCH 30.5 MCHC 34.0 RDW 14.2 Plt Count 354 MPV 9.6 Immature Gran % (Auto) 2.4 H Neut % (Auto) 86.8 H Lymph % (Auto) 8.3 L Grayson % (Auto) 2.1 Eos % (Auto) 0.0 Baso % (Auto) 0.4 Lymph # (Auto) 1.1 L Grayson # (Auto) 0.3 Eos # (Auto) 0.0 Baso # (Auto) 0.1 Abs Immat Gran (auto) 0.33 H Absolute Neuts (auto) 11.7 H Absolute Nucleated RBC 0.020 H Nucleated RBC % (auto) 0.1 PT 12.2 INR 1.1 Anion Gap 16 Estim Creat Clear Calc 100.5 Estimated GFR > 60 POC Glucose 251 H 318 H Random Glucose 211 H Calcium 9.7 Random Vancomycin 05/06/25 05/06/25 05/06/25 07:20 08:33 10:04 MCV MCH MCHC RDW Plt Count MPV Immature Gran % (Auto) Neut % (Auto) Lymph % (Auto) Grayson % (Auto) Eos % (Auto) Baso % (Auto) Lymph # (Auto) Grayson # (Auto) Eos # (Auto) Baso # (Auto) Abs Immat Gran (auto) Absolute Neuts (auto) Absolute Nucleated RBC Nucleated RBC % (auto) PT INR Anion Gap Estim Creat Clear Calc Estimated GFR POC Glucose 247 H 265 H Random Glucose Calcium Random Vancomycin 16.5 05/06/25 11:23 MCV MCH MCHC RDW Plt Count MPV Immature Gran % (Auto) Neut % (Auto) Lymph % (Auto) Grayson % (Auto) Eos % (Auto) Baso % (Auto) Lymph # (Auto) Grayson # (Auto) Eos # (Auto) Baso # (Auto) Abs Immat Gran (auto) Absolute Neuts (auto) Absolute Nucleated RBC Nucleated RBC % (auto) PT INR Anion Gap Estim Creat Clear Calc Estimated GFR POC Glucose 191 H Random Glucose Calcium Random Vancomycin Microbiology Microbiology Results: Microbiology 05/04/25 20:45 Blood Culture - Preliminary Blood - Venous No growth after 24 hours. 05/04/25 20:40 Blood Culture - Preliminary Blood - Venous No growth after 24 hours. Assessment and Plan (1) Stenosis of left subclavian artery: Status: Acute (2) Acute respiratory failure with hypoxia: Status: Acute (3) Recurrent pleural effusion: Status: Acute (4) Malignant pleural effusion: Status: Acute Plan Patient is a 65-year-old female with past medical history insulin-dependent diabetes on Trulicity, restless leg syndrome, depression/ anxiety, chronic pain management with oxycodone, iron deficiency anemia, hyperlipidemia, hypertension, breast cancer with history of left mastectomy, COPD not on home O2, HFpEF, peripheral vascular disease and obesity is being admitted for pneumonia, recurrent malignant pleural effusions with HER2 FISH positive pathology from 04/14 and expert consultation with Pulmonary, Oncology and possibly vascular for an abnormal defect found in the left subclavian artery. Patient found negative for PE. Patient does have a mildly elevated lactic acid and leukocytosis. Case management also consulted has patient's condition is advancing and patient is in need of support in the home setting. It is possible patient may benefit from pulmonary rehab/short-term rehab status post this admission and will most likely require oxygen for discharge in the home setting. Acute hypoxic respiratory failure 2/2 pleural effusion Lt and Pneumonia complicated with sepsis Telemetry and continuous pulse ox Duo nebs, Budesonide pending cultures continue IV Lasix Supportive care, Incentive spirometer as tolerated Pulmonary consult,CT showing [id number] recurrent pleural effusion. Would consider placement of PleurX on the left side. to place Lt Pleurx today Continue cefepime and vancomycin Incentive spirometry Home O2 eval prior to discharge Recurrent malignant pleural effusions Pathology indicated back in March of 2025 HER2 fish was positive Oncology consulted, patient was not able to make the outpatient appointment due to inability to leave the home secondary to severe shortness of breath Pleurix PT eval COPD exacerbation Methylprednisolone 60 b.i.d. Magnesium 2 GMS ordered breathing treatments and supportive care with oxygen via [place] Abnormal filling defect of left subclavian artery found on previous CT scan Patient is having increasing pain in the left arm no BP readings in Lt arm Vascular consulted, no intervention, no IVs blood pressures or blood draws from that left upper extremity. Insulin-dependent diabetes Sliding scale insulin Diabetic diet Thrush Nystatin swish and swallow ordered Monitor closely Fungal rash B feet Clotrimazole topically Chronic urinary stress incontinence UA pending itz wick in place Nystatin powder as needed for perineal redness DVT prophylaxis: Lovenox PPI prophylaxis: Omeprazole Full Code status The patient will need overnight hospital stay for treatment of acute hypoxemia pending blood cultures and IR intervention Quality Stroke Does the patient have a stroke diagnosis?: No Reason for No Anti-thrombotic by Day Two: N/A - Med Ordered VTE Prior VTE?: No VTE Risk Level:: Medical - moderate - high VTE Device Contraindication: N/A - Device Ordered VTE Drug Contraindication: N/A - Med Ordered
--- NOTE | 2025-05-06 15:34 | MHC.CM.PN ---
PT REPORTS SHE LIVES WITH HER DAUGHTER WHO WORKS, BUT IS HOME EVERY EVENING SHE SAYS SHE HAS A BEDSIDE [employer], TRANSFER CHAIR AND ROLLATOR, SHE HAS [facility] FOR SERVICES PER DISCUSSION, A REFERRAL WAS SENT TO [facility] FOR INCREASED [facility] SERVICES REFERRAL ALSO SENT TO [facility] IN CASE [facility] IS INDICATED HCP ON FILE PCP: ROSEY PATEL [facility] DELIVERED DCP: HOME WITH REFERRAL TO [facility] AND [facility] WILL NEED SHUTTLE VS [facility] TRANSPORT
[2025-05-06 16:09] LABS: Glucose, Whole Blood 215 mg/dL (60-115)
[2025-05-06] MEDS: Tranexamic Acid 1,000 MG in 0.9 % Sodium Chloride 50 ML 360 MG IV (17:21)
[2025-05-06 20:50] LABS: Glucose, Whole Blood 242 mg/dL (60-115)
[2025-05-06] MEDS: Triamcinolone Acet 0.1 % Cream 15 GM TUBE 1 APPL TOPICAL (21:38)
[2025-05-06] MEDS: Tolterodine Tartrate LA 4 MG CAP.ER.24H PO (21:39)
[2025-05-06] MEDS: Sennosides 8.6 MG TABLET 17.2 MG PO (21:39)
[2025-05-07] VITALS (9 sets, daily range): BP systolic 137–167; BP diastolic 68–96; PULSE 96–108; RESP 18–20; TEMP 36–36.5; O2SAT 91–95
[2025-05-07] MEDS: LORazepam 0.5 MG TABLET 0.25 MG PO ×2 (00:04→21:37)
[2025-05-07] MEDS: cefEPime HCl/D5W 2 GM/50 ML PIGGYBACK IV ×3 (01:36→16:06)
[2025-05-07] MEDS: Omeprazole 20 MG CAPSULE.DR PO (05:33)
[2025-05-07] MEDS: oxyCODONE HCl Immed Release 5 MG TABLET PO ×2 (05:43→16:05)
[2025-05-07 07:00] LABS: Creatinine Clr Calc Pharmacy 103.2; Estimated Glomerular Filt Rate > 60
[2025-05-07 07:35] LABS: Glucose, Whole Blood 206 mg/dL (60-115)
[2025-05-07] MEDS: Budesonide 0.5 MG/2 ML AMPUL.NEB INHALE ×2 (08:24→19:31)
[2025-05-07] MEDS: predniSONE 20 MG TABLET 40 MG PO (09:34)
[2025-05-07] MEDS: Zinc Sulfate 220 MG CAPSULE PO (09:34)
[2025-05-07] MEDS: rOPINIRole HCL 1 MG TABLET PO ×2 (09:34→21:18)
[2025-05-07] MEDS: Aspirin Enteric Coated 81 MG TABLET.DR PO (09:34)
[2025-05-07] MEDS: Cyanocobalamin (Vitamin B-12) 1,000 MCG TABLET 1000 MCG PO (09:34)
[2025-05-07] MEDS: PARoxetine HCL 20 MG TABLET PO (09:34)
[2025-05-07] MEDS: Atorvastatin Calcium 80 MG TABLET PO (09:34)
[2025-05-07] MEDS: Letrozole 2.5 MG TABLET PO (09:35)
[2025-05-07] MEDS: Nystatin Oral Susp 500,000 UNIT/5 ML ORAL.SUSP 400000 UNIT PO ×4 (09:35→21:17)
[2025-05-07] MEDS: Insulin Glargine,Hum.rec.anlog 100 UNIT/ML 10 ML VIAL 28 UNIT SUBCUT (09:36)
[2025-05-07] MEDS: Furosemide 40 MG/4 ML VIAL IVPUSH (09:39)
[2025-05-07] MEDS: 0.9 % Sodium Chloride Flush 3 ML SYRINGE IVFLUSH ×3 (09:44→21:18)
[2025-05-07 10:29] LABS: Vancomycin Random 20.9 mcg/mL (15-20)
--- NOTE | 2025-05-07 11:11 | P.PNIM_ITS ---
Subjective Subjective Date of Service: 05/07/25 Interval History: Seen and evaluated this morning less anxious and shortness of breath plan for Pleurix cath no reported events overnight Review of Systems Review of Systems: Yes all other systems are reviewed and are negative Physical Exam 2 Vital Signs: Vital Signs: Last Vital Signs Temp 97.7 F 05/07/25 07:28 Pulse 108 H 05/07/25 08:26 Resp 18 05/07/25 08:26 BP 167/96 H 05/07/25 07:28 Pulse Ox 93 05/07/25 07:28 O2 Del Method Nasal Cannula 05/07/25 07:28 O2 Flow Rate 3 05/07/25 07:28 Oxygen Flow Rate 4 05/04/25 20:14 BMI result Body Mass Index 39.7 Const: Other: Constitutional : Awake, interactive, less anxious and in distress Neck : Normal inspection, Supple Cardiovascular : RRR, no JVP, no lower extremity edema Respiratory :decreased bilateral air entry at bases, no crackles, no wheezes or rhonchi Gastrointestinal: soft, lax, Normal bowel sounds, Non tender Skin : Warm, Dry, erythema in feet Neurological : Alert & oriented x3, No focal deficit Objective Data Active Medications Acetaminophen (Acetaminophen 325 Mg Tablet) 650 mg PO Q6H PRN PRN Reason: Pain, Mild 1-3,fever,headache Albuterol/Ipratropium (Albuterol/Iprat 2.5/0.5mg 3 Ml Ampul.Neb) 3 ml INHALE Q4H PRN PRN Reason: Shortness of Breath/Wheezing Last Admin: 05/06/25 14:28 Dose: 3 ml Documented By: JOEL Aspirin (Aspirin Enteric Coated 81 Mg Tablet.Dr) 81 mg PO DAILY [facility] Last Admin: 05/07/25 09:34 Dose: 81 mg Documented By: SOILA Atorvastatin Calcium (Atorvastatin Calcium 80 Mg Tablet) 80 mg PO DAILY [facility] Last Admin: 05/07/25 09:34 Dose: 80 mg Documented By: SOILA Budesonide (Budesonide 0.5 Mg/2 Ml Ampul.Neb) 0.5 mg INHALE RBID [facility] Last Admin: 05/07/25 08:24 Dose: 0.5 mg Documented By: JOEL Calcium Carbonate (Calcium Carbonate 750 Mg Tab.Chew) 750 mg PO Q4H PRN PRN Reason: Heartburn Clotrimazole (Clotrimazole 1 % Cream 15 Gm Tube) 1 appl TOPICAL BID [facility]; Protocol Last Admin: 05/06/25 22:52 Dose: Not Given Documented By: IRINA Non-Admin Reason: Patient Asleep Cyanocobalamin (Cyanocobalamin (Vitamin B-12) 1,000 Mcg Tablet) 1,000 mcg PO DAILY [facility] Last Admin: 05/07/25 09:34 Dose: 1,000 mcg Documented By: SOILA Dextrose (Dextrose 50 % 25 Gm/50 Ml Syringe) 25 gm IVPUSH Q15M PRN; Protocol PRN Reason: per Hypoglycemia Standing Ord. Enoxaparin Sodium (Enoxaparin Sodium 40 Mg/0.4 Ml Syringe) 40 mg SUBCUT Q24H [facility] Last Admin: 05/04/25 23:41 Dose: 40 mg Documented By: TY Ferrous Sulfate (Ferrous Sulfate 324 Mg Tablet.Dr) 324 mg PO FR@0900 [facility] Furosemide (Furosemide 40 Mg/4 Ml Vial) 40 mg IVPUSH DAILY [facility]; Protocol Last Admin: 05/07/25 09:39 Dose: 40 mg Documented By: SOILA Glucose (Glucose Gel 15 Gm Gel..Gram.) 15 gm PO Q15M PRN; Protocol PRN Reason: per Hypoglycemia Standing Ord. Cefepime HCl (Maxipime) 2 gm in 50 mls @ 100 mls/hr IV Q8H [facility] Last Infusion: 05/07/25 10:24 Dose: Infused Documented By: SASHA Insulin Glargine (Insulin Glargine,Hum.Rec.Anlog 100 Unit/Ml 10 Ml Vial) 28 unit SUBCUT DAILY [facility] Last Admin: 05/07/25 09:36 Dose: 28 unit Documented By: SOILA Insulin Human Lispro (Insulin Lispro 100 Unit/Ml 3 Ml Vial) 0 unit SUBCUT QIDACHS [facility]; Protocol Last Admin: 05/07/25 09:53 Dose: Not Given Documented By: SASHA Non-Admin Reason: Physician Approved Letrozole (Letrozole 2.5 Mg Tablet) 2.5 mg PO DAILY [facility] Last Admin: 05/07/25 09:35 Dose: 2.5 mg Documented By: SOILA Lorazepam (Lorazepam 0.5 Mg Tablet) 0.25 mg PO Q6H PRN PRN Reason: anxiety/restlessness Last Admin: 05/07/25 00:04 Dose: 0.25 mg Documented By: IRINA Magnesium Hydroxide (Milk Of Magnesia 30 Ml Oral.Susp) 30 ml PO DAILY PRN PRN Reason: Constipation Melatonin (Melatonin 3 Mg Tablet) 6 mg PO BEDTIME PRN PRN Reason: Insomnia Nystatin (Nystatin Powder 15 Gm Bottle) 1 appl TOPICAL BID [facility]; Protocol Last Admin: 05/06/25 22:52 Dose: Not Given Documented By: IRINA Non-Admin Reason: Patient Asleep Nystatin (Nystatin Oral Susp 500,000 Unit/5 Ml Oral.Susp) 400,000 unit PO QID [facility]; Protocol Stop: 05/08/25 08:59 Last Admin: 05/07/25 09:35 Dose: 400,000 unit Documented By: SOILA Omeprazole (Omeprazole 20 Mg Capsule.Dr) 20 mg PO DAILY@0630 [facility] Last Admin: 05/07/25 05:33 Dose: 20 mg Documented By: IRINA Ondansetron HCl (Ondansetron Hcl 4 Mg/2 Ml Vial) 4 mg IVPUSH Q8H PRN PRN Reason: Nausea and Vomiting Oxycodone HCl (Oxycodone Hcl Immed Release 5 Mg Tablet) 5 mg PO Q4H PRN PRN Reason: Pain, Severe (Pain Scale 7-10) Last Admin: 05/07/25 05:43 Dose: 5 mg Documented By: IRINA Paroxetine HCl (Paroxetine Hcl 20 Mg Tablet) 20 mg PO DAILY [facility] Last Admin: 05/07/25 09:34 Dose: 20 mg Documented By: SOILA Polyethylene Glycol (Polyethylene Glycol 3350 17 Gm Powd.Pack) 17 gm PO DAILY PRN PRN Reason: Constipation Prednisone (Prednisone 20 Mg Tablet) 40 mg PO DAILY [facility] Last Admin: 05/07/25 09:34 Dose: 40 mg Documented By: SOILA Ropinirole HCl (Ropinirole Hcl 1 Mg Tablet) 1 mg PO BID [facility] Last Admin: 05/07/25 09:34 Dose: 1 mg Documented By: SOILA Senna (Sennosides 8.6 Mg Tablet) 17.2 mg PO BEDTIME [facility] Last Admin: 05/06/25 21:39 Dose: 17.2 mg Documented By: IRINA Sodium Chloride (0.9 % Sodium Chloride Flush 3 Ml Syringe) 3 ml IVFLUSH QSHIFT [facility] Last Admin: 05/07/25 09:44 Dose: 3 ml Documented By: SOILA Tolterodine Tartrate (Tolterodine Tartrate La 4 Mg Cap.Er.24h) 4 mg PO BEDTIME [facility] Last Admin: 05/06/25 21:39 Dose: 4 mg Documented By: IRINA Triamcinolone Acetonide (Triamcinolone Acet 0.1 % Cream 15 Gm Tube) 1 appl TOPICAL DAILY PRN; Protocol PRN Reason: Itchy/Dry Skin Last Admin: 05/06/25 21:38 Dose: 1 appl Documented By: IRINA Zinc Sulfate (Zinc Sulfate 220 Mg Capsule) 220 mg PO DAILY [facility] Last Admin: 05/07/25 09:34 Dose: 220 mg Documented By: SOILA Labs 05/06/25 04:36 05/07/25 06:08 Labs: Laboratory Results - last 24 hr 05/06/25 05/06/25 05/06/25 11:23 16:04 20:28 Hold Purple Top Estim Creat Clear Calc Estimated GFR POC Glucose 191 H 215 H 242 H Random Vancomycin 05/07/25 05/07/25 05/07/25 06:08 07:27 10:05 Hold Purple Top SEE NOTE Estim Creat Clear Calc 103.2 Estimated GFR > 60 POC Glucose 206 H Random Vancomycin 20.9 H Microbiology Microbiology Results: Microbiology 05/04/25 20:45 Blood Culture - Preliminary Blood - Venous No growth after 48 hours. 05/04/25 20:40 Blood Culture - Preliminary Blood - Venous No growth after 48 hours. Assessment and Plan (1) Stenosis of left subclavian artery: Status: Acute (2) Acute respiratory failure with hypoxia: Status: Acute (3) Bilateral pneumonia: Status: Acute (4) Acute on chronic diastolic CHF (congestive heart failure): Status: Acute Plan Patient is a 65-year-old female with past medical history insulin- dependent diabetes on Trulicity, restless leg syndrome, depression/ anxiety, chronic pain management with oxycodone, iron deficiency anemia, hyperlipidemia, hypertension, breast cancer with history of left mastectomy, COPD not on home O2, HFpEF, peripheral vascular disease and obesity is being admitted for pneumonia, recurrent malignant pleural effusions with HER2 FISH positive pathology from 04/14 and expert consultation with Pulmonary, Oncology and possibly vascular for an abnormal defect found in the left subclavian artery. Patient found negative for PE. Patient does have a mildly elevated lactic acid and leukocytosis. Case management also consulted has patient's condition is advancing and patient is in need of support in the home setting. It is possible patient may benefit from pulmonary rehab/short-term rehab status post this admission and will most likely require oxygen for discharge in the home setting. Acute hypoxic respiratory failure 2/2 pleural effusion Lt and Pneumonia complicated with sepsis improving slowly Duo nebs, Budesonide pending cultures continue IV Lasix Supportive care, Incentive spirometer as tolerated Pulmonary consult,CT showing [id number] recurrent pleural effusion. placement of PleurX on the left side 05/06 Continue cefepime and DC vancomycin Incentive spirometry Home O2 eval prior to discharge Recurrent malignant pleural effusions Pathology indicated back in March of 2025 HER2 fish was positive Oncology consulted PT eval COPD exacerbation Methylprednisolone to prednisone Magnesium 2 GMS ordered breathing treatments and supportive care with oxygen via [place] Abnormal filling defect of left subclavian artery found on previous CT scan Patient is having increasing pain in the left arm no BP readings in Lt arm Vascular consulted, no intervention, no IVs blood pressures or blood draws from that left upper extremity. Insulin-dependent diabetes Sliding scale insulin Diabetic diet Thrush Nystatin swish and swallow ordered Monitor closely Fungal rash B feet Clotrimazole topically Chronic urinary stress incontinence UA pending itz wick in place Nystatin powder as needed for perineal redness DVT prophylaxis: Lovenox PPI prophylaxis: Omeprazole Full Code status The patient will need overnight hospital stay for treatment of acute hypoxemia pending blood cultures and IR intervention Quality Stroke Does the patient have a stroke diagnosis?: No Reason for No Anti-thrombotic by Day Two: N/A - Med Ordered VTE Prior VTE?: No VTE Risk Level:: Medical - moderate - high VTE Device Contraindication: N/A - Device Ordered VTE Drug Contraindication: N/A - Med Ordered
[2025-05-07 11:37] LABS: Glucose, Whole Blood 330 mg/dL (60-115)
[2025-05-07] MEDS: Insulin Lispro 100 UNIT/ML 3 ML VIAL SUBCUT ×3 (12:05→21:18)
--- NOTE | 2025-05-07 12:15 | MHC.CM.PN ---
PT rec STR. Reviewed recommendation w/ patient. Patient prefers to go home if safe to do so. Would like to see how she does w/ PT tomorrow. If STR, she prefers [facility], who is following. CM will continue to follow.
[2025-05-07 16:08] LABS: Glucose, Whole Blood 166 mg/dL (60-115)
[2025-05-07] MEDS: Albuterol/Iprat 2.5/0.5MG 3 ML AMPUL.NEB INHALE (18:03)
[2025-05-07 20:58] LABS: Glucose, Whole Blood 332 mg/dL (60-115)
[2025-05-07] MEDS: Sennosides 8.6 MG TABLET 17.2 MG PO (21:17)
[2025-05-07] MEDS: Tolterodine Tartrate LA 4 MG CAP.ER.24H PO (21:18)
[2025-05-07] MEDS: Acetaminophen 325 MG TABLET 650 MG PO (21:37)
[2025-05-07] MEDS: Clotrimazole 1 % Cream 15 GM TUBE 1 APPL TOPICAL (22:46)
[2025-05-07] MEDS: Nystatin Powder 15 GM BOTTLE 1 APPL TOPICAL (22:46)
[2025-05-08] VITALS (10 sets, daily range): BP systolic 134–164; BP diastolic 70–88; PULSE 95–112; RESP 16–20; TEMP 36.4–37.1; O2SAT 84–94
[2025-05-08] MEDS: cefEPime HCl/D5W 2 GM/50 ML PIGGYBACK IV ×2 (01:26→08:23)
[2025-05-08] MEDS: Albuterol/Iprat 2.5/0.5MG 3 ML AMPUL.NEB INHALE ×2 (02:55→07:27)
[2025-05-08] MEDS: Omeprazole 20 MG CAPSULE.DR PO (06:30)
[2025-05-08 06:36] LABS: Basophils Absolute Auto 0.1 X10*3/uL (0.0-0.2); Basophils Percent Auto 0.3 % (0-2); Eosinophils Percent Auto 0.1 % (0-4); Hematocrit 38.9 % (37.0-47.0); Hemoglobin 12.6 g/dl (12.0-16.0); Imm Gran Abs Auto 0.75 X10*3/uL (0.00-0.03); Imm Gran Pct Auto 3.9 % (0.0-0.4); Lymphocytes Absolute Auto 2.2 X10*3/uL (1.2-4.9); Lymphocytes Percent Auto 11.5 % (20-40); MANUAL DIFF FLAG SCAN; Mean Corpuscular HGB Conc 32.4 g/dl (31.0-35.0); Mean Corpuscular Hemoglobin 30.2 pg (27.0-33.0); Mean Corpuscular Volume 93.3 fL (80.0-98.0); Mean Platelet Volume 10.2 fL (9.4-12.3); Monocytes Absolute Auto 2.3 X10*3/uL (0.1-1.2); Monocytes Percent Auto 12.1 % (2-11); NRBC Pct Auto 0.2 /100WBC (0.0-0.2); Neutrophils Absolute Auto 13.7 x10*3/uL (2.0-8.3); Neutrophils Percent Auto 72.1 % (45-73); Platelet Count 356 X10*3/uL (160-400); Red Blood Count 4.17 X10*6/uL (4.20-5.50); Red Cell Distribution Width 14.2 % (11.0-16.0); SCAN SMEAR FLAG 1
[2025-05-08 06:52] LABS: Anion Gap 11 (12-20); Blood Urea Nitrogen 26 mg/dL (9-16); Calcium 9.6 mg/dL (8.4-10.2); Carbon Dioxide 27 mmol/L (22-29); Chloride 108 mmol/L (96-108); Creatinine Clr Calc Pharmacy 91.9; Estimated Glomerular Filt Rate > 60; Glucose Random 182 mg/dL (60-115); Potassium 4.8 mmol/L (3.3-5.1); Sodium 141 mmol/L (135-145)
[2025-05-08] MEDS: Budesonide 0.5 MG/2 ML AMPUL.NEB INHALE (07:29)
[2025-05-08 07:40] LABS: Glucose, Whole Blood 191 mg/dL (60-115)
[2025-05-08 07:48] LABS: SLIDE REVIEW VERIFIED
[2025-05-08] MEDS: predniSONE 20 MG TABLET 40 MG PO (08:07)
[2025-05-08] MEDS: rOPINIRole HCL 1 MG TABLET PO (08:08)
[2025-05-08] MEDS: Aspirin Enteric Coated 81 MG TABLET.DR PO (08:08)
[2025-05-08] MEDS: PARoxetine HCL 20 MG TABLET PO (08:09)
[2025-05-08] MEDS: Cyanocobalamin (Vitamin B-12) 1,000 MCG TABLET 1000 MCG PO (08:09)
[2025-05-08] MEDS: Atorvastatin Calcium 80 MG TABLET PO (08:10)
[2025-05-08] MEDS: amLODIPine Besylate 5 MG TABLET PO (08:10)
[2025-05-08] MEDS: Zinc Sulfate 220 MG CAPSULE PO (08:10)
[2025-05-08] MEDS: oxyCODONE HCl Immed Release 5 MG TABLET PO ×2 (08:11→12:01)
[2025-05-08] MEDS: Acetaminophen 325 MG TABLET 650 MG PO (08:11)
[2025-05-08] MEDS: Letrozole 2.5 MG TABLET PO (08:11)
[2025-05-08] MEDS: Insulin Lispro 100 UNIT/ML 3 ML VIAL SUBCUT ×2 (08:15→12:00)
[2025-05-08] MEDS: Insulin Glargine,Hum.rec.anlog 100 UNIT/ML 10 ML VIAL 28 UNIT SUBCUT (08:15)
[2025-05-08] MEDS: Clotrimazole 1 % Cream 15 GM TUBE 1 APPL TOPICAL (08:17)
[2025-05-08] MEDS: Nystatin Powder 15 GM BOTTLE 1 APPL TOPICAL (08:17)
[2025-05-08] MEDS: 0.9 % Sodium Chloride Flush 3 ML SYRINGE IVFLUSH (08:19)
[2025-05-08] MEDS: Furosemide 40 MG/4 ML VIAL IVPUSH (08:19)
--- NOTE | 2025-05-08 09:34 | MHC.CM.PN ---
Addendum entered by Chelsey Morales RN 05/08/25 11:14: Patient now declining STR. Prefers home w/ services and new O2 via [employer]. [facility] aware of dc. Will be sent home w/ extra drains per [facility] request. Will dc via shuttle per patient request. Original Note: Per MD, patient medically cleared for dc. PT recommending inpatient pulmonary rehab. [facility] and [facility] both accepted. [facility] not [facility] a bed. Reviewed w/ patient who will only agree to a SNF in [place]. Discussed differences between inpt pulm rehab and STR. She understands [facility] is the only [facility] re[facility] in [place] and unable to offer. Continues to decline [facility] bed offers. [facility] [place] [facility]. Auth pending.
--- NOTE | 2025-05-08 09:53 | P.CNHO_ITS ---
Subjective - Subjective Chief complaint: Shortness of breath Patient: known to practice within the last 3 years Consult date: 05/08/25 Primary Care Provider: Concepción Reyes MD Loader Operator/Ground Leader Utilized?: No - Turkish Speaking HPI - Consult Narrative Reason for consult: Metastatic breast cancer Narrative: Sarah Ervin is a 65 year old female with history of left breast cancer who was diagnosed with recurrent, metastatic breast cancer based on positive pleural fluid cytology in March 2025. She underwent neoadjuvant chemotherapy followed by left simple mastectomy in November 2022. Patient was just admitted to the hospital in the 1st week of April for shortness of breath. At that time she was found to have bilateral pleural effusions and had thoracentesis which was positive for breast markers. Patient now presents with worsening shortness of breath. CT angiogram was negative for PE but she was noted to have bilateral lower lobe pneumonia and ground-glass opacities. She has been on oxygen by nasal cannula and she had PleurX catheter placed after drainage of left pleural effusion. She is feeling a little better. However she has overall weakness and is being discharged to a rehabilitation center. Her daughter was at the bedside. Review of Systems - Constitutional Reports as per HPI, Denies fatigue, Denies fever(s), Reports lack of energy, Reports malaise - ENT Denies vertigo, Denies dizziness, Denies headache(s) - Cardiovascular Denies chest pain - Respiratory Reports dyspnea on exertion - Neurologic Reports hearing normal, Denies abnormal gait Oncology Screenings - ECOG Performance Status ECOG Performance Status: 2 [facility] Medical History: Medical History (Last Reviewed 05/04/25 @ 23:40 by RAYSA Nelson) Adrenal adenoma Arthritis Cervical cancer screening COPD (chronic obstructive pulmonary disease) DCIS (ductal carcinoma in situ) Diabetes Ductal carcinoma in situ (DCIS) of left breast Effusion of left knee Encounter to discuss test results Environmental and seasonal allergies Fall Family history of prostate cancer in father Generalized anxiety disorder History of anal fissures History of palpitations History of short term memory loss History of unsteady gait HLD (hyperlipidemia) Hx of renal calculi Hypercholesterolemia Hypertension Invasive ductal carcinoma of left breast Leg swelling Low back pain Mild heartburn Multinodular goiter Peripheral neuropathy Peripheral vascular disease Port-A-Cath in place Recent bereavement Shortness of breath Smoker Thyroid nodule TIA (transient ischemic attack) Onset Date: ~12/2024 Type 2 diabetes mellitus with hyperglycemia Urinary incontinence Vaginal yeast infection Vision changes Weakness Functional capacity: wheelchair bound Family History: Family History (Last Reviewed 05/04/25 @ 23:40 by MARY Nelson) Mother History of breast cancer Father Prostate CA Brother No problems noted. Brother No problems noted. Daughter No problems noted. Surgical History: Surgical History (Last Reviewed 05/04/25 @ 23:40 by RAYSA Nelson) H/O total mastectomy of left breast Onset Date: 12/21/22 History of appendectomy History of biopsy History of bladder surgery History of cholecystectomy History of endometrial ablation History of left knee replacement History of tonsillectomy Hx of colonoscopy Hx of tubal ligation Social History: Social History (Last Reviewed 05/04/25 @ 23:40 by MARY Nelson) Living Situation History: Household Members: Children Household Members Other:: adult daughter Housing: House Are you a primary healthcare administrator to a significant other at home: No Do you presently have visiting nurse or other home services: Yes 75 years or older and lives alone: No Tobacco History: Patient Tobacco Use Status: Former Tobacco user Tobacco use type: Cigarette Cigarette Packs Per Day: 1 Years Smoked: 40, 1 pack a day e-Cigarette/Vaping Use: Former Use Second Hand Smoke Exposure: No Advance Directives: Advance Directives Date on File: 04/26/25 Occupation Assessmet: service: No Current occupational status: disabled - Travel History Ebola Risk: Travel/Contact With Anyone From Affected Area/s: No Has Patient Experienced Ebola Symptoms: No Home Medications and Allergies Current Medications: Current Medications Acetaminophen (Acetaminophen 325 Mg Tablet) 650 mg PO Q6H PRN PRN Reason: Pain, Mild 1-3,fever,headache Last Admin: 05/08/25 08:11 Dose: 650 mg Albuterol Sulfate (Albuterol Sulfate (0.083%) 2.5 Mg/3 Ml Vial.Neb) 2.5 mg INHALE Q4H PRN PRN Reason: for wheezing Albuterol/Ipratropium (Albuterol/Iprat 2.5/0.5mg 3 Ml Ampul.Neb) 3 ml INHALE Q4H PRN PRN Reason: Shortness of Breath/Wheezing Last Admin: 05/08/25 07:27 Dose: 3 ml Amlodipine Besylate (Amlodipine Besylate 5 Mg Tablet) 5 mg PO BID [facility]; Protocol Last Admin: 05/08/25 08:10 Dose: 5 mg Aspirin (Aspirin Enteric Coated 81 Mg Tablet.) 81 mg PO DAILY [facility] Last Admin: 05/08/25 08:08 Dose: 81 mg Atorvastatin Calcium (Atorvastatin Calcium 80 Mg Tablet) 80 mg PO DAILY [facility] Last Admin: 05/08/25 08:10 Dose: 80 mg Budesonide (Budesonide 0.5 Mg/2 Ml Ampul.Neb) 0.5 mg INHALE RBID [facility] Last Admin: 05/08/25 07:29 Dose: 0.5 mg Calcium Carbonate (Calcium Carbonate 750 Mg Tab.Chew) 750 mg PO Q4H PRN PRN Reason: Heartburn Clonidine HCl (Clonidine Hcl 0.1 Mg Tablet) 0.1 mg PO BEDTIME [place]; Protocol Clotrimazole (Clotrimazole 1 % Cream 15 Gm Tube) 1 appl TOPICAL BID [facility]; Protocol Last Admin: 05/08/25 08:17 Dose: 1 appl Cyanocobalamin (Cyanocobalamin (Vitamin B-12) 1,000 Mcg Tablet) 1,000 mcg PO DAILY [facility] Last Admin: 05/08/25 08:09 Dose: 1,000 mcg Dextrose (Dextrose 50 % 25 Gm/50 Ml Syringe) 25 gm IVPUSH Q15M PRN; Protocol PRN Reason: per Hypoglycemia Standing Ord. Enoxaparin Sodium (Enoxaparin Sodium 40 Mg/0.4 Ml Syringe) 40 mg SUBCUT Q24H [place] On Hold: 05/05/25 13:33 Last Admin: 05/04/25 23:41 Dose: 40 mg Ferrous Sulfate (Ferrous Sulfate 324 Mg Tablet.) 324 mg PO FR@0900 [facility] Fluticasone Propionate (Fluticasone Propionate Nasal 16 Gm [place]) 1 spray NOSTRIL-B BEDTIME [facility] Furosemide (Furosemide 40 Mg/4 Ml Vial) 40 mg IVPUSH DAILY [facility]; Protocol Last Admin: 05/08/25 08:19 Dose: 40 mg Glucose (Glucose Gel 15 Gm Gel..Gram.) 15 gm PO Q15M PRN; Protocol PRN Reason: per Hypoglycemia Standing Ord. Cefepime HCl (Maxipime) 2 gm in 50 mls @ 100 mls/hr IV Q8H [facility] Last Infusion: 05/08/25 08:53 Dose: Infused Insulin Glargine (Insulin Glargine,Hum.Rec.Anlog 100 Unit/Ml 10 Ml Vial) 28 unit SUBCUT DAILY [facility] Last Admin: 05/08/25 08:15 Dose: 28 unit Insulin Human Lispro (Insulin Lispro 100 Unit/Ml 3 Ml Vial) 0 unit SUBCUT QIDACHS [facility]; Protocol Last Admin: 05/08/25 08:15 Dose: 2 unit Letrozole (Letrozole 2.5 Mg Tablet) 2.5 mg PO DAILY [facility] Last Admin: 05/08/25 08:11 Dose: 2.5 mg Lorazepam (Lorazepam 0.5 Mg Tablet) 0.25 mg PO Q6H PRN PRN Reason: anxiety/restlessness Last Admin: 05/07/25 21:37 Dose: 0.25 mg Magnesium Hydroxide (Milk Of Magnesia 30 Ml Oral.Susp) 30 ml PO DAILY PRN PRN Reason: Constipation Melatonin (Melatonin 3 Mg Tablet) 6 mg PO BEDTIME PRN PRN Reason: Insomnia Non-Formulary Medication (Vibegron [Gemtesa]) 75 mg PO DAILY [facility] Nystatin (Nystatin Powder 15 Gm Bottle) 1 appl TOPICAL BID [facility]; Protocol Last Admin: 05/08/25 08:17 Dose: 1 appl Omeprazole (Omeprazole 20 Mg Capsule.Dr) 20 mg PO DAILY@0630 [facility] Last Admin: 05/08/25 06:30 Dose: 20 mg Ondansetron HCl (Ondansetron Hcl 4 Mg/2 Ml Vial) 4 mg IVPUSH Q8H PRN PRN Reason: Nausea and Vomiting Oxycodone HCl (Oxycodone Hcl Immed Release 5 Mg Tablet) 5 mg PO Q4H PRN PRN Reason: Pain, Severe (Pain Scale 7-10) Last Admin: 05/08/25 08:11 Dose: 5 mg Paroxetine HCl (Paroxetine Hcl 20 Mg Tablet) 20 mg PO DAILY [facility] Last Admin: 05/08/25 08:09 Dose: 20 mg Polyethylene Glycol (Polyethylene Glycol 3350 17 Gm Powd.Pack) 17 gm PO DAILY PRN PRN Reason: Constipation Prednisone (Prednisone 20 Mg Tablet) 40 mg PO DAILY [facility] Last Admin: 05/08/25 08:07 Dose: 40 mg Ropinirole HCl (Ropinirole Hcl 1 Mg Tablet) 1 mg PO BID [facility] Last Admin: 05/08/25 08:08 Dose: 1 mg Senna (Sennosides 8.6 Mg Tablet) 17.2 mg PO BEDTIME [facility] Last Admin: 05/07/25 21:17 Dose: 17.2 mg Senna (Sennosides 8.6 Mg Tablet) 8.6 mg PO BID PRN PRN Reason: Constipation Sodium Chloride (0.9 % Sodium Chloride Flush 3 Ml Syringe) 3 ml IVFLUSH QSHIFT [facility] Last Admin: 05/08/25 08:19 Dose: 3 ml Tolterodine Tartrate (Tolterodine Tartrate La 4 Mg Cap.Er.24h) 4 mg PO BEDTIME [facility] Last Admin: 05/07/25 21:18 Dose: 4 mg Triamcinolone Acetonide (Triamcinolone Acet 0.1 % Cream 15 Gm Tube) 1 appl TOPICAL DAILY PRN; Protocol PRN Reason: Itchy/Dry Skin Last Admin: 05/06/25 21:38 Dose: 1 appl Zinc Sulfate (Zinc Sulfate 220 Mg Capsule) 220 mg PO DAILY [facility] Last Admin: 05/08/25 08:10 Dose: 220 mg Home Medications ?Medication ?Instructions ?Recorded ?Confirmed ?Type acetaminophen 325 mg capsule 325 mg PO QID PRN Pain 09/01/22 05/05/25 History cyanocobalamin (vitamin B-12) 1,000 mcg PO DAILY 09/04/22 05/05/25 His tory 1,000 mcg tablet ferrous sulfate 325 mg (65 mg 325 mg PO FR@0900 08/09/24 05/05/25 Hist ory iron) tablet (Iron (ferrous sulfate)) zinc gluconate 50 mg tablet 50 mg PO DAILY 08/09/24 05/05/25 History atorvastatin 80 mg tablet 80 mg PO DAILY 04/03/25 05/05/25 History cholecalciferol (vitamin D3) 50 50 mcg PO Q48H 04/03/25 05/05/25 History mcg (2,000 unit) capsule clotrimazole 1 % topical cream 1 appl topical BID PRN Fungal 04/03/25 0 05/05/25 History Infections insulin aspart U-100 100 unit/mL 10 - 20 unit subcut TIDAC 04/03/2505/05 History (3 mL) subcutaneous pen (Novolog FlexPen U-100 Insulin aspart) ondansetron 4 mg disintegrating 4 mg PO Q8H PRN Nausea And Vomiting 03/2105/05/25 History tablet sennosides 8.6 mg tablet (Senokot) 8.6 mg PO BID PRN Constipation 04/03/25 05/05/25 History solifenacin 5 mg tablet (Vesicare) 5 mg PO BEDTIME 04/03/25 05/05/25 Histor y triamcinolone acetonide 0.1 % 1 appl topical DAILY PRN Itchy/Dry 04/0305/05/25 History topical cream Skin dulaglutide 1.5 mg/0.5 mL 1.5 mg subcut FR 04/22/25 05/05/25 Histo ry subcutaneous [facility] Allergies Allergy/AdvReac Type Severity Reaction Status Date / Time diclofenac (From Voltaren) Allergy Severe enlarged Verified 05/04/25 20:15 liver lisinopril (From Zestril) Allergy Severe Angioedema Verified 05/04/25 20:15 losartan Allergy Severe Angioedema Verified 05/04/25 20:15 omeprazole Allergy Intermediate elevated Verified 05/04/25 20:15 blood pressure Penicillins (PENICILLINS) Allergy Intermediate Facial Verified 05/04/25 20:15 Swelling oxybutynin (Oxybutynin) AdvReac Severe body Verified 05/04/25 20:15 twitching gabapentin AdvReac Intermediate Hypertensio Verified 05/04/25 20:15 n metformin AdvReac Intermediate Diarrhea Verified 05/04/25 20:15 duloxetine AdvReac Intermediate tachycardia Uncoded 04/22/25 22:50 Physical Exam Vital signs: Vital Signs Temp 97.6 F 05/08/25 07:22 Pulse 97 05/08/25 07:29 Resp 16 05/08/25 07:29 BP 134/70 05/08/25 07:22 Pulse Ox 92 05/08/25 08:35 O2 Del Method Nasal Cannula 05/08/25 08:35 O2 Flow Rate 1 05/08/25 08:35 Intake & Output 05/07/25 05/08/25 05/08/25 18:59 06:59 18:59 Intake Total 820 / 1230 410 / 1230 50 / 50 Output Total 600 / 1400 800 / 1400 100 / 100 Balance 220 / -170 -390 / -170 -50 / -50 Urine Output (Average ml/kg/hr) 0.48 0.64 0.08 Intake: Intake, Oral Amount 720 / 1080 360 / 1080 Intake, IV Amount 100 / 150 50 / 150 50 / 50 cefEPime HCl/D5W 2 gm In 50 ml 100 / 150 50 / 150 50 / 50 @ 100 mls/hr IV Q8H [facility] Rx#: [id number] Output: Output, Urine Amount 600 / 1400 800 / 1400 100 / 100 Other: Breakfast % Eaten 75% Lunch % Eaten 100% Dinner % Eaten 100% Eating (Feeding) Ability Independent Number of Bowel Movements 1 Urine purewick Pure wick Urine Color Yellow Yellow Last Bowel Movement 05/04/25 Stool Bedside Commode Stool Amount Small Weight 104.9 kg - Constitutional Present: mild distress, obese, chronically ill appearing - Routine HEENT Exam Head: Present: normal inspection Eye: Present: EOMI, PERRL - Routine Neck Exam Present: supple. Absent: lymphadenopathy - Routine Respiratory Exam Present: decreased breath sounds - Routine Cardiovascular Exam Cardiovascular: Present: S1, S2 - Routine Abdominal Exam Present: soft - Routine Skin Exam Present: intact - Routine Neurological Exam Present: alert, oriented X3 Hem/Onc Consult Result - Labs CBC & Chem 7: 05/08/25 05:54 05/08/25 05:54 Labs: Short CBC 05/08/25 Range/Units 05:54 WBC 19.0 H (4.8-10.8) X10*3/uL Hgb 12.6 (12.0-16.0) g/dl Hct 38.9 (37.0-47.0) % Plt Count 356 (160-400) X10*3/uL BMP 05/08/25 05:54 Sodium 141 Potassium 4.8 Chloride 108 Carbon Dioxide 27 BUN 26 H Creatinine 0.73 Calcium 9.6 Assessment and Plan Patient Active problem list reviewed?: Yes (1) Invasive ductal carcinoma of left breast Problem details: 12/21/22, left simple mastectomy with targeted axillary dissection via needle localization of a lymph node was performed by Dr. Teran Status: Acute Assessment and plan: 1. This is a 65-year-old woman with history of left breast invasive ductal carcinoma diagnosed in 2021 who has now developed recurrent, stage IV ER/MN positive HER2 positive breast cancer. Initial diagnosis was in 2022, she received neoadjuvant chemotherapy with TCHP for 6 cycles followed by left simple mastectomy in November 2022, pathological stage yp T2 N1a. She received letrozole and Enhertu in the adjuvant setting between January 2023 until September 2023. After 11 cycles and Enhertu was stopped because of significant peripheral neuropathy. She has been maintained on letrozole. She was admitted in March for bilateral pleural effusions. Pleural fluid cytology unfortunately revealed malignant cells compatible with breast origin. ER positive, MN negative HER2 2+, FISH positive. Patient has developed recurrent disease while on aromatase inhibitor. Further molecular testing with ESR 1 mutation she will be performed, patient may have developed resistance to aromatase inhibitor. In which case hormonal therapy should be switched to fulvestrant or elacestrant. If patient is able to tolerate Fam trastuzumab deruxtecan this can be resumed. If neuropathy is significant and she can not resume Enhertu, other options for HER2 directed therapies are available. I have requested pathologist to do molecular profiling, this will be sent to [facility]. All of the above was explained to patient and her daughter at the bedside. They will follow up with Dr. Mitchell next week. 2. Recurrent bilateral pleural effusions, left greater than right. She now has a left PleurX catheter which will have to be drained 2 to 3 times a week. She is on oxygen by nasal cannula. Thank you for the consultation. - Time Spent With Patient Time Spent with Patient (in minutes): 25 Additional Coding: - Additional E/M codes Complex E/M visit Add On: CPT G2211
--- NOTE | 2025-05-08 10:30 | MHC.CLN ---
F/U DIET=DIABETIC 2000 KCALS, 2 GRAM SODIUM. INTAKE USUALLY 75-100%. NO ADDITIONAL NUTRITION INTERVENTIONS AT THIS TIME.
--- NOTE | 2025-05-08 11:15 | PC.NURSE ---
Drained left chest Pleurx. About 425cc of serosanguineous drainage removed. Patient remained on continuous O2 monitor, no SOB. SpO2 increased from 92 to 95% after fluid removal. Patient continues to have crackles on left lobes but is less diminished. Daughter at bedside during draining and demonstrated and verbalized steps to use drain to educated daughter. Daughter educated on clean/sterile technique, signs and symptoms of infection, signs and symptoms of distress and when to call 911 or seek medical attention.
--- NOTE | 2025-05-08 11:20 | PM.DS ---
DS: Providers Provider Date of Service: 05/08/25 Date of admission: 05/04/25 22:22 Date of discharge: 05/08/25 Primary care physician: Concepción Reyes MD Consults: 05/04/25 22:33 Consult to Pulmonology Routine Consulting Provider: [facility] Pulmonology Services Reason for consultation: malignant pl eff, +HER2 FISH 05/04/25 23:16 Consult to Hematology / Oncology Routine Consulting Provider: [facility] Oncology/Hematology Reason for consultation: Malignant pleural effusion, HER2 fish + Has provider been notified: No Consult to Vascular Surgery Routine Consulting Provider: [facility] Vascular Services Reason for consultation: Left subclavian obstruction Has provider been notified: No DS: Diagnosis Discharge Diagnosis (1) Invasive ductal carcinoma of left breast: Status: Acute (2) Stenosis of left subclavian artery: Status: Acute (3) Acute respiratory failure with hypoxia: Status: Acute (4) Acute on chronic diastolic CHF (congestive heart failure): Status: Acute (5) Recurrent pleural effusion: Status: Acute (6) Malignant pleural effusion: Status: Acute DS: Summary Hospital Course Hospital Course: Admission note HPI Patient is a 65-year-old female with past medical history insulin-dependent diabetes on Trulicity, restless leg syndrome, depression/ anxiety, chronic pain management with oxycodone, iron deficiency anemia, hyperlipidemia, hypertension, breast cancer with history of left mastectomy, COPD not on home O2, HFpEF, peripheral vascular disease and obesity presents to the emergency department with complaints of increasing dyspnea status post recent admission for pneumonia. In March of 2025, patient was admitted and found to have bilateral pleural effusions and after thoracentesis the fluid was sent for testing and indicated HER2 fish analysis was positive. Patient has not yet seen Oncology as patient has not been able to leave the home due to lack of reserve. Patient feels that she is just getting worse noting these last 2 hospitalizations. After this past admission 04/22 through 04/25/2025, patient was not discharged with oxygen for home use and was not recommended for short-term rehab or pulmonary rehab. Patient was not referred for in-home nursing care as well. At this time, patient is so short of breath that she is not able to wipe herself or perform simple everyday activities of daily life. Patient would be considered homebound at this time. Patient's daughter lives with patient but patient's daughter works and is unable to be with patient during the day. Patient has not yet been referred for home care or support services by her PCP as well. CTA negative for PE, but noted with bilateral lower lobe pneumonia with ground-glass opacities. She does have moderate size bilateral pleural effusions. Patient is requiring oxygen via nasal cannula at this time. Patient does have underlying COPD with emphysema. Patient is no longer smoking. Patient denies any current chest pain, fever, night sweats, nausea or vomiting. Pulmonary, Oncology and case management have been consulted. In addition a similar defect of the left subclavian artery is present with noted left arm pain. Vascular has been consulted for this. We will avoid using left arm for blood pressures. Patient states that she understands she may have recurrent cancer but has every desire to live and fight the cancer if needed. Hospital course The patient was treated for Acute hypoxic respiratory failure secondary to pleural effusion Lt and worsening metastatic cancer treated with IV antibiotics, Duo nebs, Budesonide as blood cultures remained negative along with IV Lasix with Supportive care, Incentive spirometer as tolerated. Pulmonary consulted as CT showing [id number]-right recurrent pleural effusion and recommended placement of PleurX on the left side 05/06. had home O2 eval and will be on 1L of O2 at home. The catheter drained with total of 425 ml cranberry colored fluids. Will increase Lasix to 40 mg daily. Discharge on Levaquin for 5 more days. Continue Prednisone PO for 3 more days. Recurrent malignant pleural effusions. Pathology indicated back in March of 2025 HER2 fish was positive. Oncology consulted and recommended outpatient follow up for treatment. Had PT eval who recommended pulmonary rehab but the patient prefers to go home with PT. She was also evaluated for Abnormal filling defect of left subclavian artery found on previous CT scan as she is having increasing pain in the left arm. Vascular surgery consulted, no intervention, no IVs blood pressures or blood draws from that left upper extremity. She has significant anxiety that presents as dyspnea. improved with PRN Ativan. will continue with small dose of 0.25 as needed on discharge. Discharge plan Levaquin for 5 more days Prednisone for 3 more days Increase Lasix 40 mg daily Lorazepam 1/2 tablet as needed for anxiety Stop antibiotics Follow with Dr Mitchell on 05/22 at 2:30 pm for office appointment Physical therapy as tolerated Empty pleurix catheter 2-3 times a week Time Attestation Discharge Coordination Time (in mins): 48 Quality: Safe Use of Opioids Does Pt have an Active Cancer Diagnosis on the Problem List?: Yes Opioid Measure Date for [facility] Report: 04/08/25 Opioid Measure Time for [facility] Report: 11:36 Quality: Stroke Does the patient have a stroke diagnosis?: No Physical Exam Vital Signs: Vital Signs: Last Vital Signs Temp 97.6 F 05/08/25 07:22 Pulse 97 05/08/25 07:29 Resp 16 05/08/25 07:29 BP 134/70 05/08/25 07:22 Pulse Ox 92 05/08/25 08:35 O2 Del Method Nasal Cannula 05/08/25 08:35 O2 Flow Rate 1 05/08/25 08:35 Oxygen Flow Rate 4 05/04/25 20:14 BMI result Body Mass Index 39.7 Const: Other: Constitutional : Awake, interactive, less anxious and in distress Neck : Normal inspection, Supple Cardiovascular : RRR, no JVP, no lower extremity edema Respiratory :decreased bilateral air entry at bases, no crackles, no wheezes or rhonchi Gastrointestinal: soft, lax, Normal bowel sounds, Non tender Skin : Warm, Dry, erythema in feet Neurological : Alert & oriented x3, No focal deficit DS: Data Data Completed and Pending Completed studies during hospitalization [Text1]: Procedures Drainage of Left Pleural Cavity with Drainage Device, Percutaneous Approach (04/03/25) Drainage of Right Pleural Cavity with Drainage Device, Percutaneous Approach (04/22/25) Labs on day of discharge: Laboratory Results - last 24 hr 05/07/25 05/07/25 05/07/25 11:33 15:53 20:54 WBC RBC Hgb Hct MCV MCH MCHC RDW Plt Count MPV Immature Gran % (Auto) Neut % (Auto) Lymph % (Auto) Hayes % (Auto) Eos % (Auto) Baso % (Auto) Lymph # (Auto) Hayes # (Auto) Eos # (Auto) Baso # (Auto) Abs Immat Gran (auto) Absolute Neuts (auto) Absolute Nucleated RBC Nucleated RBC % (auto) Smear Tech's Comments Sodium Potassium Chloride Carbon Dioxide Anion Gap BUN Creatinine Estim Creat Clear Calc Estimated GFR POC Glucose 330 H 166 H 332 H Random Glucose Calcium 05/08/25 05/08/25 05:54 07:21 WBC 19.0 H RBC 4.17 L Hgb 12.6 Hct 38.9 MCV 93.3 MCH 30.2 MCHC 32.4 RDW 14.2 Plt Count 356 MPV 10.2 Immature Gran % (Auto) 3.9 H Neut % (Auto) 72.1 Lymph % (Auto) 11.5 L Hayes % (Auto) 12.1 H Eos % (Auto) 0.1 Baso % (Auto) 0.3 Lymph # (Auto) 2.2 Hayes # (Auto) 2.3 H Eos # (Auto) 0.0 Baso # (Auto) 0.1 Abs Immat Gran (auto) 0.75 H Absolute Neuts (auto) 13.7 H Absolute Nucleated RBC 0.040 H Nucleated RBC % (auto) 0.2 Smear Tech's Comments VERIFIED Sodium 141 Potassium 4.8 Chloride 108 Carbon Dioxide 27 Anion Gap 11 L BUN 26 H Creatinine 0.73 Estim Creat Clear Calc 91.9 Estimated GFR > 60 POC Glucose 191 H Random Glucose 182 H Calcium 9.6 Preliminary micro results at discharge 05/04/25 20:45 Blood Culture - Preliminary Blood - Venous No growth after 48 hours. 05/04/25 20:40 Blood Culture - Preliminary Blood - Venous No growth after 48 hours. Imaging Chest x-ray: Radiologist's impression: ITS Impressions Pleural Drainage 05/06/25 11:26 IMPRESSION: On initial ultrasound imaging there is small to moderate left pleural effusion. Successful ultrasound-guided insertion of a left Pleurx catheter. The catheter lies along the left lung base. Electronically signed by: Valentin Hernandez MD 05/06/2025 04:38 PM EDT Chest X-Ray 05/06/25 13:20 IMPRESSION: Edema and bilateral pleural effusions, right greater than left without gross pneumothorax. Overall slight worsening since prior exam Electronically signed by: Uriel Martines MD 05/06/2025 01:38 PM EDT Chest X-Ray 05/06/25 15:50 IMPRESSION: 1. Left basilar Pleurx catheter in position. 2. No perceptible pneumothorax. 3. No significant interval change in moderate interstitial pulmonary edema, small effusions, and bibasilar parenchymal opacities. Electronically signed by: Inocencio Chambers MD 05/06/2025 04:15 PM EDT RP Discharge Plan Discharge Anticipated Discharge Date/Time: 05/08/25 10:54 Patient Disposition: Home Health Service Discharge Diagnosis: recurrent malignant effusion Referrals: Po,Concepción Browne MD [Primary Care Provider, Internal Medicine] - 1 Week Discharge Medications: New lorazepam 0.5 mg Tablet 0.25 mg PO Q6H PRN (Reason: Anxiety/Restlessness) Qty: 30 0RF nystatin [Nyamyc] 100,000 unit/gram Powder 1 appl topical BID Qty: 30 0RF Protocol: Apply to: Apply to: Perineal area and areas of redness avoid the face furosemide 40 mg tablet 40 mg PO QAM Qty: 90 0RF levofloxacin 750 mg tablet 750 mg PO DAILY Qty: 5 0RF prednisone 20 mg tablet 40 mg PO DAILY Qty: 6 0RF Continued clonidine HCl 0.1 mg tablet 0.1 mg PO BEDTIME Qty: 90 11RF paroxetine HCl 20 mg tablet 20 mg PO DAILY 90 Days Qty: 90 5RF aspirin [Adult Aspirin Regimen] 81 mg tablet,delayed release (DR/EC) 81 mg PO DAILY 90 Days Qty: 90 11RF ropinirole 1 mg tablet 1 mg PO BID Qty: 180 8RF letrozole 2.5 mg Tablet 2.5 mg PO DAILY Qty: 90 12RF Anoro Ellipta 62.5-25 mcg/actuation blister with device 1 inh inhalation DAILY Qty: 60 12RF oxycodone-acetaminophen [Percocet] 5-325 mg tablet 1 tab PO Q8H PRN (Reason: Breakthrough Pain, Moderate) Qty: 50 0RF Rx Instructions: Partial Fill upon patient request. albuterol sulfate 2.5 mg /3 mL (0.083 %) solution for nebulization 2.5 mg inhalation Q4-6H PRN (Reason: for wheezing) Qty: 180 3RF (DME) baby wipes See Rx Instructions .Route .MEDSUPPLY Qty: 1 12RF Rx Instructions: As directed (DME) CHAIR LIFT See Rx Instructions .Route .MEDSUPPLY Qty: 1 0RF Rx Instructions: As directed (DME) Pull ups x-large See Rx Instructions .Route .MEDSUPPLY Qty: 240 11RF Rx Instructions: As directed (DME) lancets [FreeStyle Lancets] 28 gauge misc See Rx Instructions .ROUTE .COMPLEX Qty: 100 3RF Dose Instruction: USE DIRECTED THREE TIMES A DAY (BULK) Rx Instructions: USE DIRECTED THREE TIMES A DAY (BULK) (DME) FreeStyle Lite Strips Strip See Rx Instructions .ROUTE .MEDSUPPLY Qty: 100 3RF Rx Instructions: check BS 3X/DAY Gemtesa 75 mg tablet 75 mg PO DAILY Qty: 30 1RF (DME) blood-glucose meter [FreeStyle Lite Meter] Kit See Rx Instructions .ROUTE .MEDSUPPLY Qty: 1 0RF Rx Instructions: As directed amlodipine 5 mg tablet 5 mg PO BID 30 Days Qty: 60 1RF cyanocobalamin (vitamin B-12) 1,000 mcg Tablet 1,000 mcg PO DAILY ferrous sulfate [Iron (ferrous sulfate)] 325 mg (65 mg iron) tablet 325 mg PO FR@0900 Rx Instructions: once a day for 1 week in a month zinc gluconate 50 mg tablet 50 mg PO DAILY Trulicity 1.5 mg/0.5 mL Pen Injector 1.5 mg SUBCUT FR atorvastatin 80 mg tablet 80 mg PO DAILY sennosides [Senokot] 8.6 mg tablet 8.6 mg PO BID PRN (Reason: Constipation) triamcinolone acetonide 0.1 % cream 1 appl topical DAILY PRN (Reason: Itchy/Dry Skin) Rx Instructions: apply to affected area ondansetron 4 mg tablet,disintegrating 4 mg PO Q8H PRN (Reason: Nausea And Vomiting) clotrimazole 1 % cream 1 appl topical BID PRN (Reason: Fungal Infections) insulin aspart U-100 [Novolog FlexPen U-100 Insulin] 100 unit/mL (3 mL) insulin pen 10 - 20 unit subcut TIDAC solifenacin [Vesicare] 5 mg tablet 5 mg PO BEDTIME cholecalciferol (vitamin D3) 50 mcg (2,000 unit) capsule 50 mcg PO Q48H acetaminophen 325 mg capsule 325 mg PO QID PRN (Reason: Pain) (DME) matectomy BRA See Rx Instructions .Route .MEDSUPPLY Qty: 2 0RF Rx Instructions: As directed (DME) compress.stocking,knee,reg,lrg Misc See Rx Instructions .Route Qty: 12 0RF Rx Instructions: As directed 20-30 mm HG (DME) Incontinence BED PADS WASHABLE See Rx Instructions .Route .MEDSUPPLY Qty: 2 12RF Rx Instructions: As directed insulin glargine [Lantus Solostar U-100 Insulin] 100 unit/mL (3 mL) insulin pen 28 unit subcut DAILY Qty: 15 7RF (DME) pen needle, diabetic 32 gauge x 1/4 needle See Rx Instructions miscellaneous .MEDSUPPLY Qty: 100 5RF Rx Instructions: as directed with insulin albuterol sulfate 90 mcg/actuation HFA aerosol inhaler 1 puff inhalation QID PRN (Reason: Shortness Of Breath Or Wheezing) Qty: 8.5 3RF fluticasone propionate [Flonase Allergy Relief] 50 mcg/actuation spray,suspension 1 spray INTRANASAL BEDTIME Qty: 16 3RF Rx Instructions: administer into each nostril Discontinued furosemide [Lasix] 20 mg tablet 20 mg PO DAILY 30 Days Qty: 30 0RF doxycycline monohydrate 100 mg tablet 100 mg PO BID 9 Days Qty: 18 0RF cefuroxime axetil 500 mg tablet 500 mg PO Q12H 9 Days Qty: 18 0RF Discharge Orders: Discharge Order (Routine); Ordered 05/08/25 Ordered By: Srinath Cotto Diet: Advance to usual diet Activity on Discharge: As tolerated Stand Alone Forms: Patient Portal Discharge page Print Language: [place] Care Plan Goals: Lasix 40 mg daily Lorazepam 1/2 tablet as needed for anxiety Stop antibiotics Follow with Dr Mitchell on 05/22 at 2:30 pm for office appointment Physical therapy as tolerated Empty pleurix catheter 2-3 times a week Health Concerns: recurrent effusion metastatic cancer Plan of Treatment: Follow up with Dr Mitchell Pleurix catheter care Assessment: as above
[2025-05-08 11:42] LABS: Glucose, Whole Blood 264 mg/dL (60-115)
--- NOTE | 2025-05-08 11:45 | W.MHC.F2F ---
Service Date Service Date: 05/08/25 Encounter Date of encounter: 05/08/25 Reasons for Services Signs and symptoms assessed: new pleurix catheter physical deconditioning Reason for fci: medication management, teach disease management and other (Pleurix catheter drainage 2-3 times a week (Q2 days if possible)) Reason for physical therapy: home safety and mobility and therapeutic exercises Homebound: Leaving the home is medically contraindicated at this time without the asist of a device and/or another person due th the listed conditions above and below. Reason homebound: unsteady gait / fall risk and unable to drive Certification: Based on the above findings, I certify that this patient is confined to the home and needs intermittent fci care, physical therapy and/or speech therapy, or continues to need occupational therapy. The patient is under my care, and I have initiated the establishment of the plan of care. The patient will be followed by a physician who will periodically review the plan of care. Time Spent With Patient Time: Total time managing care of this patient today ____ minutes.
== END 2025-05-08 13:24 | disposition home health service (06) | DRG 193 ==
LOC: HO.ED 21:07 → HO.EDOVER 05-05 00:21 → HO.S3 05-06 07:18
PROVIDERS: Nurse Practitioner Family; Radiology Diagnostic Radiology; Admitting Provider Student in an Organized Health Care Education/Training Program; Emergency Provider Internal Medicine; PCP Internal Medicine; Visit Provider Student in an Organized Health Care Education/Training Program
PROC: 0W9B30Z Drainage of Left Pleural Cavity with Drainage Device, Percutaneous Approach (ICD-10-PCS; principal; 2025-05-06 11:30)
DX: J18.9 Pneumonia, unspecified organism (principal); J96.01 Acute respiratory failure with hypoxia; J44.1 Chronic obstructive pulmonary disease with (acute) exacerbation; J91.0 Malignant pleural effusion; B37.0 Candidal stomatitis; I50.32 Chronic diastolic (congestive) heart failure; C50.912 Malignant neoplasm of unspecified site of left female breast; B36.9 Superficial mycosis, unspecified; I77.1 Stricture of artery; N39.3 Stress incontinence (female) (male); Z90.12 Acquired absence of left breast and nipple; Z87.891 Personal history of nicotine dependence; Z20.822 Contact with and (suspected) exposure to COVID-19; Z17.31 Human epidermal growth factor receptor 2 positive status; Z79.4 Long term (current) use of insulin; Z79.82 Long term (current) use of aspirin; Z79.85 Long-term (current) use of injectable non-insulin antidiabetic drugs; Z79.811 Long term (current) use of aromatase inhibitors; Z79.899 Other long term (current) drug therapy
CPT/HCPCS: 0241U; 32550; 36415; 71045; 71046; 71260; 80048; 80053; 80202; 81003; 82565; 82803; 82947; 83036; 83605; 83735; 83880; 84439; 84443; 84484; 85025; 85610; 87040; 93005; 97116; 97162; 97530; 97535; 99152; 99153; 99285; C1729; J0690; J0692; J0696; J1650; J1938; J2250; J2919; J3010; J3370; J3371; J3475; J7120; Q9967

== ENCOUNTER → 2025-05-04 20:22 | Outpatient (BNV) | payer OTHER, SELFPAY | PROVIDERS: Admitting Provider Student in an Organized Health Care Education/Training Program; Emergency Provider Internal Medicine; PCP Internal Medicine; Visit Provider Internal Medicine Cardiovascular Disease | DX: R00.0 Tachycardia, unspecified (principal) | CPT/HCPCS: 93010 ==

== ENCOUNTER 2025-05-04 22:22 | Outpatient (BNV) | payer OTHER, SELFPAY | END 2025-05-06 13:20 | PROVIDERS: Admitting Provider Student in an Organized Health Care Education/Training Program; Emergency Provider Internal Medicine; PCP Internal Medicine; Visit Provider Radiology Diagnostic Radiology | DX: J90 Pleural effusion, not elsewhere classified (principal); Z96.89 Presence of other specified functional implants | CPT/HCPCS: 32550; 71045; 76937 ==

== ENCOUNTER → 2025-05-04 22:22 | Outpatient (BNV) | payer OTHER, SELFPAY | PROVIDERS: Admitting Provider Student in an Organized Health Care Education/Training Program; Emergency Provider Internal Medicine; PCP Internal Medicine; Visit Provider Internal Medicine Pulmonary Disease | DX: J96.01 Acute respiratory failure with hypoxia (principal); J91.0 Malignant pleural effusion | CPT/HCPCS: 99223 ==

== ENCOUNTER → 2025-05-04 22:22 | Outpatient (BNV) | payer OTHER, SELFPAY | PROVIDERS: Admitting Provider Student in an Organized Health Care Education/Training Program; Emergency Provider Internal Medicine; PCP Internal Medicine; Visit Provider Nurse Practitioner Family | DX: J96.01 Acute respiratory failure with hypoxia (principal); J69.0 Pneumonitis due to inhalation of food and vomit; J90 Pleural effusion, not elsewhere classified; R21 Rash and other nonspecific skin eruption | CPT/HCPCS: 99223; 99233 ==

== ENCOUNTER → 2025-05-04 22:22 | Outpatient (BNV) | payer OTHER, SELFPAY | PROVIDERS: Admitting Provider Student in an Organized Health Care Education/Training Program; Emergency Provider Internal Medicine; PCP Internal Medicine; Visit Provider Surgery Vascular Surgery | DX: I77.1 Stricture of artery (principal) | CPT/HCPCS: 99222 ==

== ENCOUNTER → 2025-05-04 22:22 | Outpatient (BNV) | payer OTHER, SELFPAY | PROVIDERS: Admitting Provider Student in an Organized Health Care Education/Training Program; Emergency Provider Internal Medicine; PCP Internal Medicine; Visit Provider Internal Medicine | DX: D05.12 Intraductal carcinoma in situ of left breast (principal); J91.0 Malignant pleural effusion | CPT/HCPCS: 99222 ==

== ENCOUNTER 2025-05-22 11:29 | Inpatient (IN) | payer OTHER, SELFPAY ==
[2025-05-22] VITALS (11 sets, daily range): BP systolic 105–201; BP diastolic 47–134; PULSE 102–120; RESP 14–36; TEMP 36.6–36.9; O2SAT 92–96; BMI 36.7; BMI 36.2
--- NOTE | ~2025-05-22 | XR_ITS ---
EXAMINATION: XR CHEST CLINICAL INFORMATION: s/p right sided thora COMPARISON: X-ray performed 4 hours earlier TECHNIQUE: Frontal view of the chest was obtained. FINDINGS: Right pleural effusion and basilar density has decreased since the prior. Left-sided pleural effusion is stable. No pneumothorax is visualized. No other changes are noted. XR/XR chest 1V IMPRESSION: Decreased right basilar opacity after thoracentesis without visible pneumothorax. Electronically signed by: William Garcia MD 05/22/2025 05:22 PM EDT
--- NOTE | ~2025-05-22 | US_ITS ---
PROCEDURE: Ultrasound-guided right thoracentesis History: Right pleural effusion Specimen: None Access: 5 Romansh Yueh catheter Medications: 5 mL 1% lidocaine TECHNIQUE/FINDINGS Appropriate preprocedural clinical history and imaging studies were reviewed. The patient was brought to the department and placed in the seated position. Ultrasound images of the right thorax were obtained to localize a moderate pleural effusion. Permanent ultrasound images were saved. Risks and benefits and possible complications were discussed with the patient and consent form was signed. An area of the patient's right back was prepped and draped in usual sterile fashion. 10 mL of 1% lidocaine was used to obtain local anesthesia of the skin and deeper tissues. A standard small bore needle was introduced to sample pleural fluid and demonstrate a safe access route. A 5 Romansh Yueh catheter was then used to access the pleural cavity. 1300 ml of moshe fluid was removed passively. The catheter was then removed. A dressing was applied. A postprocedure chest x-ray will be performed and will be dictated separately. There were no immediate complications. The procedure was performed by Jose Luis Ruiz NP and supervised by Jelani Rausch MD. US/US thoracentesis Impression: Ultrasound-guided right thoracentesis Plan: If reaccumulation of fluid occurs in a short period of time, can have discussion about right-sided Pleurx catheter placement as patient does have an existing left-sided Pleurx catheter. Electronically signed by: Jelani Rausch MD 05/27/2025 04:37 PM EDT
--- NOTE | ~2025-05-22 | XR_ITS ---
EXAMINATION: XR CHEST CLINICAL INFORMATION: Chest pain COMPARISON: May 06, 2025 TECHNIQUE: Frontal view of the chest was obtained. FINDINGS: Right Port-A-Cath terminates at the superior cavoatrial junction. Heart size is within normal limits. There is increasing right basilar opacity and right lung vascularity margins are less distinct than on the prior. There is persistent left basilar pleural effusion and compressive atelectasis. There are coarse interstitial markings in left lung, unchanged. There is a chronic bony exostosis along the superior lateral anatomic neck of the left humerus. XR/XR chest 1V IMPRESSION: Suspected worsening pulmonary edema. Underlying pneumonia is not ruled out the right lung base versus increasing atelectasis. Left pleural effusion is probably increasing. Electronically signed by: William Garcia MD 05/22/2025 12:37 PM EDT
--- NOTE | 2025-05-22 11:45 | ECG_ITS ---
Test Reason : SOB Blood Pressure : */* mmHG Vent. Rate : 106 BPM Atrial Rate : 106 BPM P-R Int : 120 ms QRS Dur : 84 ms QT Int : 338 ms P-R-T Axes : 39 8 -3 degrees QTcB Int : 448 ms Sinus tachycardia Possible Inferior infarct , age undetermined Abnormal ECG When compared with ECG of 04-May-2025 20:22, No significant change was found Referred By: Adali Ayala Electronically Signed By: BEE PINA MD
--- NOTE | 2025-05-22 11:48 | ED.SOB ---
HPI - SOB/Dyspnea General Chief Complaint: Dyspnea Stated Complaint: SOB, ON CPAP. HX CHF PER EMS Time Seen by Provider: 05/22/25 11:35 History of Present Illness HPI Narrative: Patient is a 65-year-old female with a history of COPD congestive heart failure history of diabetes long history of tobacco use baseline is on 3 L of oxygen presented today with having increasing shortness of breath unable to lie flat needing more oxygen than usual came in for further evaluation patient did not take her Lasix this morning because she was going to a doctor's appointment. No coughing or congestion positive shortness of breath positive generalized malaise. Not on blood thinners. History of high cholesterol. Related Data Home Medications ?Medication ?Instructions ?Recorded ?Confirmed acetaminophen 325 mg capsule 325 mg PO QID PRN Pain 09/01/22 05/09/25 cyanocobalamin (vitamin B-12) 1,000 mcg PO DAILY 09/04/22 05/09/25 1,000 mcg tablet ferrous sulfate 325 mg (65 mg 325 mg PO FR@0900 08/09/24 05/09/25 iron) tablet (Iron (ferrous sulfate)) zinc gluconate 50 mg tablet 50 mg PO DAILY 08/09/24 05/09/25 atorvastatin 80 mg tablet 80 mg PO DAILY 04/03/25 05/09/25 cholecalciferol (vitamin D3) 50 50 mcg PO Q48H 04/03/25 05/09/25 mcg (2,000 unit) capsule clotrimazole 1 % topical cream 1 appl topical BID PRN Fungal 04/03/25 05/09/25 Infections insulin aspart U-100 100 unit/mL 10 - 20 unit subcut TIDAC 04/03/25 05/09/25 (3 mL) subcutaneous pen (Novolog FlexPen U-100 Insulin aspart) ondansetron 4 mg disintegrating 4 mg PO Q8H PRN Nausea And Vomiting 04/03/25 05/09/25 tablet sennosides 8.6 mg tablet (Senokot) 8.6 mg PO BID PRN Constipation 04/03/25 05/09/25 solifenacin 5 mg tablet (Vesicare) 5 mg PO BEDTIME 04/03/25 05/09/25 triamcinolone acetonide 0.1 % 1 appl topical DAILY PRN Itchy/Dry 04/03/25 05/09/25 topical cream Skin dulaglutide 1.5 mg/0.5 mL 1.5 mg subcut FR 04/22/25 05/09/25 subcutaneous pen injector (Trulicity) Previous Rx's ?Medication ?Instructions ?Recorded matectomy BRA #2 ea 10/11/23 Incontinence BED PADS WASHABLE #2 ea 01/13/24 compress.stocking,knee,reg,lrg #12 ea 01/13/24 clonidine HCl 0.1 mg tablet 0.1 mg PO BEDTIME #90 tabs 07/10/24 paroxetine HCl 20 mg tablet 20 mg PO DAILY 90 days #90 tabs 07/10/24 aspirin 81 mg tablet,delayed 81 mg PO DAILY 90 days #90 tabs 08/24/24 release (Adult Aspirin Regimen) ropinirole 1 mg tablet 1 mg PO BID #180 tabs 10/12/24 letrozole 2.5 mg tablet 2.5 mg PO DAILY #90 tabs 10/24/24 umeclidinium 62.5 mcg-vilanterol 1 inh inhalation DAILY #60 ea 10/27/24 25 mcg/actuation powdr for inhalation (Anoro Ellipta) oxycodone-acetaminophen 5 mg-325 1 tab PO Q8H PRN Breakthrough 01/31/25 mg tablet (Percocet) Pain, Moderate #50 tabs albuterol sulfate 2.5 mg/3 mL 2.5 mg (3 mL) inhalation Q4-6H PRN 02/05/25 (0.083 %) solution for nebulization for wheezing #180 mL pen needle, diabetic 32 gauge x #100 ea 02/07/25 1/ CHAIR LIFT #1 ea 02/15/25 Pull ups #240 ea 02/15/25 baby wipes #1 ea 02/15/25 lancets 28 gauge (FreeStyle #100 ea 03/01/25 Lancets) insulin glargine 100 unit/mL (3 28 unit (0.28 mL) subcut DAILY #15 03/07/25 mL) subcutaneous pen (Lantus mL Solostar U-100 Insulin) blood sugar diagnostic (FreeStyle #100 ea 03/29/25 Lite Strips) albuterol sulfate 90 mcg/actuation 1 puff inhalation QID PRN 04/18/25 aerosol inhaler Shortness Of Breath Or Wheezing #8.5 grams fluticasone propionate 50 1 spray intranasal BEDTIME #16 04/18/25 mcg/actuation nasal grams spray,suspension (Flonase Allergy Relief) amlodipine 5 mg tablet 5 mg PO BID 30 days #60 tabs 04/26/25 blood-glucose meter (FreeStyle #1 ea 04/26/25 Lite Meter kit) vibegron 75 mg tablet (Gemtesa) 75 mg PO DAILY #30 tabs 04/26/25 furosemide 40 mg tablet 40 mg PO QAM #90 tabs 05/08/25 levofloxacin 750 mg tablet 750 mg PO DAILY #5 tabs 05/08/25 lorazepam 0.5 mg tablet 0.25 mg (1/2 x 0.5 mg) PO Q6H PRN 05/08/25 Anxiety/Restlessness #30 tabs nystatin 100,000 unit/gram topical 1 appl topical BID #30 grams 05/08/25 powder (Nyamyc) prednisone 20 mg tablet 40 mg (2 x 20 mg) PO DAILY #6 tabs 05/08/25 500 mL Pleurx drains. #15 ea 05/14/25 Allergies Allergy/AdvReac Type Severity Reaction Status Date / Time diclofenac (From Voltaren) Allergy Severe enlarged Verified 05/22/25 11:55 liver lisinopril (From Zestril) Allergy Severe Angioedema Verified 05/22/25 11:55 losartan Allergy Severe Angioedema Verified 05/22/25 11:55 omeprazole Allergy Intermediate elevated Verified 05/22/25 11:55 blood pressure Penicillins (PENICILLINS) Allergy Intermediate Facial Verified 05/22/25 11:55 Swelling oxybutynin (Oxybutynin) AdvReac Severe body Verified 05/22/25 11:55 twitching gabapentin AdvReac Intermediate Hypertensio Verified 05/22/25 11:55 n metformin AdvReac Intermediate Diarrhea Verified 05/22/25 11:55 duloxetine AdvReac Intermediate tachycardia Uncoded 05/22/25 11:55 Review of Systems Review of Systems: Positive shortness of breath PMFSH Past Medical History Attestation statement: The following information was validated with the patient. Medical History Stenosis of left subclavian artery Maculopapular rash, localized Recurrent pleural effusion Malignant pleural effusion Generalized anxiety disorder TIA (transient ischemic attack) (~12/2024) Recent bereavement Environmental and seasonal allergies HLD (hyperlipidemia) Multinodular goiter Peripheral neuropathy History of short term memory loss Port-A-Cath in place Smoker Family history of prostate cancer in father Leg swelling Shortness of breath Effusion of left knee Weakness Fall Thyroid nodule Adrenal adenoma Vision changes Diabetes History of palpitations History of unsteady gait Low back pain Arthritis Mild heartburn Hx of renal calculi Vaginal yeast infection Encounter to discuss test results 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 Cervical cancer screening Type 2 diabetes mellitus with hyperglycemia History of anal fissures Peripheral vascular disease Urinary incontinence Hypertension COPD (chronic obstructive pulmonary disease) Hypercholesterolemia Surgical History Hx of colonoscopy H/O total mastectomy of left breast (12/21/22) History of biopsy History of endometrial ablation Hx of tubal ligation History of tonsillectomy History of appendectomy History of cholecystectomy History of bladder surgery History of left knee replacement Family History Family History Mother History of breast cancer Father Prostate CA Brother No problems noted. Brother No problems noted. Daughter No problems noted. Social History Social History Household Members: Children Household Members Other:: adult daughter Housing: House Are you a primary rn care transition to a significant other at home: No Do you presently have visiting nurse or other home services: Yes Alcohol intake: current Alcohol intake frequency: holidays/special occasions only Comment: Fell 08/2022, leg weakness 1 glass on holidays Patient Tobacco Use Status: Former Tobacco user Tobacco use type: Cigarette Cigarette Packs Per Day: 1 Years Smoked: 40, 1 pack a day Smoked in Last 30 Days: Yes e-Cigarette/Vaping Use: Former Use Second Hand Smoke Exposure: No Use of substances other than those prescribed or required for medical reasons: No Advance Directives: Yes Advance Directives on File: Yes Advance Directives Date on File: 04/26/25 Do you have a plan to hurt others: No Plan Patient : No service: No Current occupational status: disabled Cognitive needs: No Hearing needs: No Vision needs: Yes Physical Exam Vital Signs: Vital Signs: Last Vital Signs Temp 98.2 F 05/22/25 11:50 Pulse 107 H 05/22/25 12:04 Resp 24 H 05/22/25 14:02 BP 133/65 05/22/25 14:02 Pulse Ox 94 05/22/25 14:02 O2 Del Method Nasal Cannula 05/22/25 14:02 O2 Flow Rate 3 05/22/25 14:02 BMI result Body Mass Index 36.7 Appearance: Alert. Oriented X3. No acute distress. Eyes: Pupils equal, round and reactive to light. ENT: Pharynx normal. Neck: Normal inspection. Neck supple. No lymph nodes noted. No crepitus CVS: Normal heart rate and rhythm. Pulses normal. Normal S1 and S2 Respiratory: Increased work of breathing diminished breath sounds bilaterally crackles at the bases. Abdomen: Soft and nontender. No rigidity. No distention. good BS x4 Skin: Skin warm and dry. Normal skin color. Normal skin turgor. Extremities: No lower extremity edema. Neurovascular intact to all extremities. No Lacerations. No Rash Neuro: Oriented X 3. No motor deficit. No sensory deficit. Moving all extermities. No slurred speech Medications Administered Discontinued Medications Generic Name Dose Route Start Last Admin Trade Name Freq PRN Reason Stop Dose Admin Levalbuterol HCl 3.75 mg/ 0 mg 05/22/25 11:51 05/22/25 12:03 Ipratropium [place] 0.5 mg INHALE 05/22/25 11:52 1 dose ONCE ONE Administration Furosemide 40 mg 05/22/25 11:46 05/22/25 12:10 Furosemide 40 Mg/4 Ml Vial IVPUSH 05/22/25 11:47 40 mg ONCE ONE Administration Protocol Cefepime HCl 1 gm/ Sodium 50 mls @ 100 mls/hr 05/22/25 13:09 05/22/25 14:44 Chloride IV 05/22/25 13:38 100 mls/hr ONCE ONE Administration Methylprednisolone Sodium Succinate 125 mg 05/22/25 11:47 05/22/25 12:10 Methylprednisolone Sod Succ 125 Mg/2 Ml Vial IVPUSH 05/22/25 11:48 125 mg ONCE ONE Administration Medical Decision Making Medical Decision Making MDM Narrative: 11:45 Patient was placed on CPAP by EMS. Will continue patient on the CPAP. She is resting comfortably now is talking in complete sentences. Will check patient's VBG the see what her acid-base status looks like. Additional steroid neb treatment for the COPD. Lasix for the congestive heart failure. Patient's blood pressure is somewhat marginal at 105/70 will monitor carefully. EKG is pending Patient given neb treatments. CPAP. My interpretation of patient's ABG after the CPAP showed no CO2 retention normal pH normal pCO2 with hypoxia patient's PaO2 was 75.7 on 3 L of oxygen. Patient's chest x-ray by my interpretation showed a pleural effusion on the right. Had a history of breast cancer has a history of having pleural effusion bilaterally hit the left-sided drain 2 weeks ago at the time I came back her 2 positive. Interventional Radiology was contacted. Will try to drain the right side as well. Patient has CTA done 2 weeks ago there is no PE. My interpretation of her EKG showed a sinus rhythm heart rate is 105 UT QRS QTC normal no acute ST segment elevation. Patient's symptom improved but given her fragile state chronic O2 dependency will admit for further monitoring overnight. Currently in stable condition. Differential Diagnosis Differential Diagnoses: The differential diagnosis associated with the presentation includes COPD, pneumonia, pleural effusion Admission/Observation Consideration of admission/observation: Escalation of care including admission/observation considered Consult Healthcare Provider Management of the patient was discussed with: Hospitalist and Cage/Vault Supervisor (Interventional radiologist) Lab Data MDM Lab Attestation statement: I reviewed the patient's lab results. 05/22/25 12:18 05/22/25 12:18 Labs: Lab Results 05/22/25 05/22/25 05/22/25 Range/Units 11:57 12:18 12:25 WBC 13.9 H (4.8-10.8) X10*3/uL RBC 4.11 L (4.20-5.50) X10*6/uL Hgb 12.8 (12.0-16.0) g/dl Hct 37.3 (37.0-47.0) % MCV 90.8 (80.0-98.0) fL MCH 31.1 (27.0-33.0) pg MCHC 34.3 (31.0-35.0) g/dl RDW 15.1 (11.0-16.0) % Plt Count 241 D (160-400) X10*3/uL MPV 9.5 (9.4-12.3) fL Immature Gran % (Auto) 1.3 H (0.0-0.4) % Neut % (Auto) 73.4 H (45-73) % Lymph % (Auto) 14.6 L (20-40) % Ferry % (Auto) 8.0 (2-11) % Eos % (Auto) 2.0 (0-4) % Baso % (Auto) 0.7 (0-2) % Lymph # (Auto) 2.0 (1.2-4.9) X10*3/uL [place]erry # (Auto) 1.1 (0.1-1.2) X10*3/uL Eos # (Auto) 0.3 (0.0-0.4) X10*3/uL Baso # (Auto) 0.1 (0.0-0.2) X10*3/uL Abs Immat Gran (auto) 0.18 H (0.00-0.03) X10*3/uL Absolute Neuts (auto) 10.2 H (2.0-8.3) x10*3/uL Absolute Nucleated RBC 0.040 H (0.0-0.012) X10*3/uL Nucleated RBC % (auto) 0.3 H (0.0-0.2) /100WBC O2 Saturation % ABG pH at Pt Temp (7.35-7.45) ABG pCO2 at Pt Temp (32-45) mmHg ABG pO2 at Pt Temp (83-108) mmHg ABG HCO3 (22-26) mmol/L ABG Base Excess (Actual) mmol/L VBG pH 7.42 (7.32-7.43) VBG pCO2 40 mmHg VBG pO2 66 mmHg VBG HCO3 27 H (22-26) mmol/L VBG O2 Saturation 83.0 % VBG Base Excess 2.5 mmol/L Sodium 138 (135-145) mmol/L Potassium 3.9 (3.3-5.1) mmol/L Chloride 104 (96-108) mmol/L Carbon Dioxide 24 (22-29) mmol/L Anion Gap 14 (12-20) BUN 15 (9-16) mg/dL Creatinine 0.72 (0.5-1.4) mg/dL Estim Creat Clear Calc 89.3 Estimated GFR > 60 POC Glucose 187 H (60-115) mg/dL Random Glucose 185 H (60-115) mg/dL Lactic Acid (0.5-2.0) mmol/L Calcium 9.4 (8.4-10.2) mg/dL Total Bilirubin 0.4 (0.0-1.0) mg/dL Direct Bilirubin 0.1 (0.0-0.5) mg/dL AST 25 (5-31) U/L ALT 16 (0-31) U/L Alkaline Phosphatase 103 (39-117) U/L Troponin I High Sens 4.8 (<3.5-17.0) ng/L B-Natriuretic Peptide 27 (<100) pg/mL Total Protein 6.5 (6.5-8.0) g/dL Albumin 3.6 (3.5-5.0) g/dL 05/22/25 05/22/25 Range/Units 13:20 13:42 WBC (4.8-10.8) X10*3/uL RBC (4.20-5.50) X10*6/uL Hgb (12.0-16.0) g/dl Hct (37.0-47.0) % MCV (80.0-98.0) fL MCH (27.0-33.0) pg MCHC (31.0-35.0) g/dl RDW (11.0-16.0) % Plt Count (160-400) X10*3/uL MPV (9.4-12.3) fL Immature Gran % (Auto) (0.0-0.4) % Neut % (Auto) (45-73) % Lymph % (Auto) (20-40) % Ferry % (Auto) (2-11) % Eos % (Auto) (0-4) % Baso % (Auto) (0-2) % Lymph # (Auto) (1.2-4.9) X10*3/uL Ferry # (Auto) (0.1-1.2) X10*3/uL Eos # (Auto) (0.0-0.4) X10*3/uL Baso # (Auto) (0.0-0.2) X10*3/uL Abs Immat Gran (auto) (0.00-0.03) X10*3/uL Absolute Neuts (auto) (2.0-8.3) x10*3/uL Absolute Nucleated RBC (0.0-0.012) X10*3/uL Nucleated RBC % (auto) (0.0-0.2) /100WBC O2 Saturation 95.0 % ABG pH at Pt Temp 7.47 H (7.35-7.45) ABG pCO2 at Pt Temp 32 (32-45) mmHg ABG pO2 at Pt Temp 76 L (83-108) mmHg ABG HCO3 23 (22-26) mmol/L ABG Base Excess (Actual) 0.6 mmol/L VBG pH (7.32-7.43) VBG pCO2 mmHg VBG pO2 mmHg VBG HCO3 (22-26) mmol/L VBG O2 Saturation % VBG Base Excess mmol/L Sodium (135-145) mmol/L Potassium (3.3-5.1) mmol/L Chloride (96-108) mmol/L Carbon Dioxide (22-29) mmol/L Anion Gap (12-20) BUN (9-16) mg/dL Creatinine (0.5-1.4) mg/dL Estim Creat Clear Calc Estimated GFR POC Glucose (60-115) mg/dL Random Glucose (60-115) mg/dL Lactic Acid 1.4 (0.5-2.0) mmol/L Calcium (8.4-10.2) mg/dL Total Bilirubin (0.0-1.0) mg/dL Direct Bilirubin (0.0-0.5) mg/dL AST (5-31) U/L ALT (0-31) U/L Alkaline Phosphatase (39-117) U/L Troponin I High Sens (<3.5-17.0) ng/L B-Natriuretic Peptide (<100) pg/mL Total Protein (6.5-8.0) g/dL Albumin (3.5-5.0) g/dL Independent Interpretation I performed an independent interpretation of an: EKG (Sinus heart rate is 105 UT QRS QTC normal no acute ST segment elevation noted) Radiology Impression Discussion of test interpretation with radiology: I have reviewed the radiologist's reading. External Record Review External record reviewed: Inpatient record Chronic Conditions COPD, CHF Social Determinants Patient?s care significantly limited by Social Determinants of Health including: Problems related to primary support group Critical Care Time Critical Care Time Critical Care Time: Yes Total Critical Care Time: 40 Attestation: I have personally provided 40 minutes of critical care time exclusive of time spent on separately billable procedures. ?Time includes review of lab data, radiology results, discussion with consultants, and monitoring for potential decompensation. ?Interventions were performed as documented above Discharge Plan Discharge Clinical Impression: Pleural effusion, COPD (chronic obstructive pulmonary disease) Patient Disposition: Admitted As Inpatient Print Language: Greenlandic
--- NOTE | 2025-05-22 11:53 | PC.RT ---
Pt came in via EMS on CPAP. Pt is 3L baseline. Pt taken off CPAP for transfer to bed, pt became dyspneic, increased RR, low SATs. Pt placed on V60 CPAP +12 32% by RT. Pt appears more comfortable at this time. Pt has crackles bilateral w/ edema to extremities. Bronch protocol ordered, requests VBG at this time and ABG in approx 1 hour.
--- NOTE | 2025-05-22 11:56 | PC.NURSE ---
Pt speaking in complete sentences with cpap in place (12 @32%); LS with coarse rales bibasilar; pt denies CP at this time; pt reports she stopped smoking 2 weeks ago; poorly kempt; pleurex drain with dressing in place to L mid back noted; pt's R upper chest port accessed per request with 3/4inch power needle/flushes and draws easily; dressing in place; ST per tele; will monitor/tx per orders
[2025-05-22] MEDS: levalbuterol HCL 3.75 MG, Ipratropium Bromide 0.5 MG INHALE (12:03)
[2025-05-22] MEDS: Furosemide 40 MG/4 ML VIAL IVPUSH (12:10)
[2025-05-22 12:24] LABS: MANUAL DIFF FLAG NO
[2025-05-22 12:25] LABS: Hematocrit 37.3 % (37.0-47.0); Hemoglobin 12.8 g/dl (12.0-16.0); Imm Gran Abs Auto 0.18 X10*3/uL (0.00-0.03); Imm Gran Pct Auto 1.3 % (0.0-0.4); Lymphocytes Absolute Auto 2.0 X10*3/uL (1.2-4.9); Mean Corpuscular HGB Conc 34.3 g/dl (31.0-35.0); Mean Corpuscular Hemoglobin 31.1 pg (27.0-33.0); Mean Corpuscular Volume 90.8 fL (80.0-98.0); NRBC Abs Auto 0.040 X10*3/uL (0.0-0.012); NRBC Pct Auto 0.3 /100WBC (0.0-0.2); Platelet Count 241 X10*3/uL (160-400); Red Blood Count 4.11 X10*6/uL (4.20-5.50); White Blood Count 13.9 X10*3/uL (4.8-10.8)
[2025-05-22 12:29] LABS: VBG HCO3 27 mmol/L (22-26); VBG O2 % Saturation 83.0 %
[2025-05-22 12:33] LABS: Venous Blood Gas Refer to POC result
[2025-05-22 12:41] LABS: Alanine Aminotransferase 16 U/L (0-31); Albumin Level 3.6 g/dL (3.5-5.0); Alkaline Phosphatase 103 U/L (39-117); Anion Gap 14 (12-20); Aspartate Amino Transferase 25 U/L (5-31); Blood Urea Nitrogen 15 mg/dL (9-16); Calcium 9.4 mg/dL (8.4-10.2); Carbon Dioxide 24 mmol/L (22-29); Chloride 104 mmol/L (96-108); Creatinine Clr Calc Pharmacy 89.3; Estimated Glomerular Filt Rate > 60; Potassium 3.9 mmol/L (3.3-5.1); Sodium 138 mmol/L (135-145); Total Protein 6.5 g/dL (6.5-8.0)
[2025-05-22 12:47] LABS: B Type Natriuretic Peptide 27 pg/mL (<100)
[2025-05-22 12:49] LABS: Troponin-I High Sensitivity 4.8 ng/L (<3.5-17.0)
--- OUTSIDE RECORDS SUMMARY | 2025-05-22 12:50 | XMS_ITS | Clinical Summary ---
Author Organization [facility] Address [address] [place] [address] Care Team Providers Care Art Framing Manager Name Role Phone Unavailable Primary Care Provider [...] mcg/actuation inhalerIndicati ons:COPD (chronic obstructive pulmonary disease) ([facility]),Influe nza A Inhale 2 Puffs into the lungs every 4 (four) hours as needed for shortness of breath or wheezing. 1 Inhaler 3 5 Active traZODone (DESYREL) 50 mg tabletIndicatio ns:Insomnia,Dep ression Take 1 Tab by mouth nightly at bedtime. 30 Tab 0 5 Active aspirin 325 mg tabletIndicatio ns:HTN (hypertension), COPD (chronic obstructive pulmonary disease) ([facility]) Take 1 Tab by mouth once daily. 30 Tab 3 5 Active NIFEdipine (ADALAT CC) 60 mg 24 hr tabletIndicatio ns:HTN (hypertension) Take 1 Tab by mouth once daily. Take on an empty stomach. Swallow whole. Do not break, crush or chew. 30 Tab 3 5 Active predniSONE (DELTASONE) 10 mg tabletIndicatio ns:COPD (chronic obstructive pulmonary disease) ([facility]) Take 1 Tab by mouth once daily. 30 Tab 0 5 Active budesonide-form oterol (SYMBICORT) 80-4.5 mcg/actuation inhalerIndicati ons:COPD (chronic obstructive pulmonary disease) ([facility]) Inhale 2 Puffs into the lungs 2 (two) times daily. 1 Inhaler 3 5 Active albuterol (PROVENTIL) 2.5 mg /3 mL (0.083 %) nebulizer solutionIndicat ions:COPD (chronic obstructive pulmonary disease) ([facility]) Take 3 mL by nebulization every [...] mcg/actuation aepbIndications :COPD (chronic obstructive pulmonary disease) ([facility]) Inhale 1 Inhaler into the lungs 2 (two) times daily. 1 Inhaler 6 5 Active clotrimazole-be tamethasone (LOTRISONE) 1-0.05 % lotionIndicatio ns:Rash Apply topically 2 (two) times daily. 30 mL 1 5 Active Active Problems Problem Noted Date Diagnosed Date Depression 01/28/2015 COPD (chronic obstructive pu lmonary disease) ([facility]) 01/28/2015 Incontinence of urine in female [...]
--- OUTSIDE RECORDS SUMMARY | 2025-05-22 12:50 | XMS_ITS | Patient Health Record ---
Author Organization [facility] Address [address] [place] [address] Care Team Providers Care Flagger Name Role Phone Po Concepción MADDEN Primary Care Provider Ravindra Arora [phone] Allergies Allergen (clinical drug ingredient) Drug/Non Drug [...] Status Risk Notes Problem Colon cancer screening (663024622) Colon cancer screening (Z12.11) Active confirmed Problem Gastroesophageal reflux disease (disorder) (656891732) Chronic GERD (K21.9) Active confirmed Vital Signs Blood pressure diastolic 00 mm Hg 12/21/2024 Height 5 ft 4 in in 12/21/2024 Blood pressure systolic 00 mm Hg 12/21/2024 Weight 223 lbs 12/21/2024 BMI 38.27 kg/m2 12/21/2024 Encounters Encounter Location Date Provider Diagnosis [facility] [address] [place] [phone] 12/21/2024 Ravindra Putnam Colon cancer screening Z12.11 and Chronic GERD K21.9 [facility] [address] [place] [phone] 12/24/2024 Ravindra Putnam [facility] [address] [place] [phone] 04/03/2025 Ravindra Putnam Assessments Encounter Date Diagnosis [...] She was instructed to speak with her visual specialist regarding instructions in regard to adjusting [...] She was instructed to speak with her visual specialist regarding instructions in regard to adjusting [...] Insured Coverage Start Date Coverage End Date [facility] [address] Attn Claims [facility] [id number] THAO CHARLTON Self - patient is the insured Medical (General) History Medical History History ICD Code Thyroid nodule IDDM Peripheral vascular disease Urinary incontinence COPD Anxiety disorder Hypertension Renal calculi TIA Left breast cancer 03/2021 with chemo and surgery-Dr. Mitchell Reports a negative colonscopy in approx 2004 Denies OR,CVA,renal disease Neuropathy GERD Hyperlipidemia Surgical History Surgery Date(Month/Year) Mastectomy of left breast 2022-Dr. Roxann andersen Endometrial ablation Tubal ligation Tonsillectomy Appendectomy Cholecystectomy Bladder surgery Left knee replacement 2006
--- NOTE | 2025-05-22 13:30 | PC.NURSE ---
Pt weaned off CPAP at this time; 95% on 3 ltr NC; RT at bedside to get ABG; pt tolerating well
[2025-05-22 13:46] LABS: ABG HCO3 23 mmol/L (22-26); ABG O2 % Saturation 95.0 %
[2025-05-22 13:49] LABS: ABG Refer to POC result
[2025-05-22 13:50] LABS: Glucose, Whole Blood 187 mg/dL (60-115)
--- NOTE | 2025-05-22 14:39 | PM.IMHP ---
History of Present Illness Date of Service: 05/22/25 Chief Complaint: sob 65F PMH stage IV breast cancer with malignant pleural effusions, chronic hypoxic respiratory failure due to COPD on 2 L home O2, DM, chronic diastolic CHF, mood disorder, peripheral vascular disease presented with shortness of breath. Patient with multiple admissions for shortness of breath due to CHF, postobstructive pneumonia, pleural effusions over the last 2 months. Has had course of antibiotics, diuretics ruled out for pulmonary embolism, left-sided PleurX catheter inserted. On day of presentation walked in the bathroom and became suddenly short of breath called EMS who placed patient on CPAP. In ED chest x-ray with right-sided effusion worsening, improved symptoms with CPAP. Now on 3 L saturating low 90s. Patient denies fever, chills, cough, chest pain. Review of Systems Review of Systems: Yes all other systems are reviewed and are negative [facility] Medical History Stenosis of left subclavian artery Maculopapular rash, localized Recurrent pleural effusion Malignant pleural effusion Generalized anxiety disorder TIA (transient ischemic attack) (~12/2024) Recent bereavement Environmental and seasonal allergies HLD (hyperlipidemia) Multinodular goiter Peripheral neuropathy History of short term memory loss Port-A-Cath in place Smoker Family history of prostate cancer in father Leg swelling Shortness of breath Effusion of left knee Weakness Fall Thyroid nodule Adrenal adenoma Vision changes Diabetes History of palpitations History of unsteady gait Low back pain Arthritis Mild heartburn Hx of renal calculi Vaginal yeast infection Encounter to discuss test results 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 Brother No problems noted. Daughter No problems noted. Surgical History Hx of colonoscopy H/O total mastectomy of left breast (12/21/22) History of biopsy History of endometrial ablation Hx of tubal ligation History of tonsillectomy History of appendectomy History of cholecystectomy History of bladder surgery History of left knee replacement Social History Household Members: Children Household Members Other:: adult daughter Housing: House Are you a primary career counselor to a significant other at home: No Do you presently have visiting nurse or other home services: Yes Alcohol intake: current Alcohol intake frequency: holidays/special occasions only Comment: Fell 08/2022, leg weakness 1 glass on holidays Patient Tobacco Use Status: Former Tobacco user Tobacco use type: Cigarette Cigarette Packs Per Day: 1 Years Smoked: 40, 1 pack a day Smoked in Last 30 Days: Yes e-Cigarette/Vaping Use: Former Use Second Hand Smoke Exposure: No Use of substances other than those prescribed or required for medical reasons: No Advance Directives: Yes Advance Directives on File: Yes Advance Directives Date on File: 04/26/25 Do you have a plan to hurt others: No Plan Patient : No service: No Current occupational status: disabled Cognitive needs: No Hearing needs: No Vision needs: Yes Meds Allergies Allergy/AdvReac Type Severity Reaction Status Date / Time diclofenac (From Voltaren) Allergy Severe enlarged Verified 05/22/25 11:55 liver lisinopril (From Zestril) Allergy Severe Angioedema Verified 05/22/25 11:55 losartan Allergy Severe Angioedema Verified 05/22/25 11:55 omeprazole Allergy Intermediate elevated Verified 05/22/25 11:55 blood pressure Penicillins (PENICILLINS) Allergy Intermediate Facial Verified 05/22/25 11:55 Swelling oxybutynin (Oxybutynin) AdvReac Severe body Verified 05/22/25 11:55 twitching gabapentin AdvReac Intermediate Hypertensio Verified 05/22/25 11:55 n metformin AdvReac Intermediate Diarrhea Verified 05/22/25 11:55 duloxetine AdvReac Intermediate tachycardia Uncoded 05/22/25 11:55 Active Medications: Current Medications Acetaminophen (Acetaminophen 325 Mg Tablet) 650 mg PO Q6H PRN PRN Reason: Pain, Mild 1-3,fever,headache Albuterol/Ipratropium (Albuterol/Iprat 2.5/0.5mg 3 Ml Ampul.Neb) 3 ml INHALE RQ4H WHILE AWAKE PRN PRN Reason: sob Calcium Carbonate (Calcium Carbonate 750 Mg Tab.Chew) 750 mg PO Q4H PRN PRN Reason: Heartburn Enoxaparin Sodium (Enoxaparin Sodium 40 Mg/0.4 Ml Syringe) 40 mg SUBCUT Q24H [facility] Magnesium Hydroxide (Milk Of Magnesia 30 Ml Oral.Susp) 30 ml PO DAILY PRN PRN Reason: Constipation Melatonin (Melatonin 3 Mg Tablet) 6 mg PO BEDTIME PRN PRN Reason: Insomnia Sodium Chloride (0.9 % Sodium Chloride Flush 3 Ml Syringe) 3 ml IVFLUSH QSHIFT [facility] Home Medications ?Medication ?Instructions ?Recorded ?Confirmed ?Last Taken ?Type acetaminophen 325 mg capsule 325 mg PO QID PRN Pain 09/01/22 05/09/25 Unknown History cyanocobalamin (vitamin B-12) 1,000 mcg PO DAILY 09/04/22 05/09/25 04/21/25 History 1,000 mcg tablet ferrous sulfate 325 mg (65 mg 325 mg PO FR@0900 08/09/24 05/09/25 04/19/25 History iron) tablet (Iron (ferrous sulfate)) zinc gluconate 50 mg tablet 50 mg PO DAILY 08/09/24 05/09/25 04/21/25 History atorvastatin 80 mg tablet 80 mg PO DAILY 04/03/25 05/09/25 04/21/25 History cholecalciferol (vitamin D3) 50 50 mcg PO Q48H 04/03/25 05/09/25 04/20/25 History mcg (2,000 unit) capsule clotrimazole 1 % topical cream 1 appl topical BID PRN Fungal 04/03/25 05/09/25 Unknown History Infections insulin aspart U-100 100 unit/mL 10 - 20 unit subcut TIDAC 04/03/25 05/09/25 04/21/25 History (3 mL) subcutaneous pen (Novolog FlexPen U-100 Insulin aspart) ondansetron 4 mg disintegrating 4 mg PO Q8H PRN Nausea And Vomiting 04/03/25 05/09/25 Unknown History tablet sennosides 8.6 mg tablet (Senokot) 8.6 mg PO BID PRN Constipation 04/03/25 05/09/25 04/02/25 History solifenacin 5 mg tablet (Vesicare) 5 mg PO BEDTIME 04/03/25 05/09/25 04/20/25 History triamcinolone acetonide 0.1 % 1 appl topical DAILY PRN Itchy/Dry 04/03/25 05/09/25 Unknown History topical cream Skin dulaglutide 1.5 mg/0.5 mL 1.5 mg subcut FR 04/22/25 05/09/25 04/19/25 [facility] Physical Exam Vital Signs and Narrative: Vital Signs: Last Vital Signs Temp 98.2 F 05/22/25 11:50 Pulse 107 H 05/22/25 12:04 Resp 24 H 05/22/25 14:02 BP 133/65 05/22/25 14:02 Pulse Ox 94 05/22/25 14:02 O2 Del Method Nasal Cannula 05/22/25 14:02 O2 Flow Rate 3 05/22/25 14:02 BMI result Body Mass Index 36.7 General: AO X 3, no acute distress Resp: diminshed on right, no accessory muscles used CVS: S1,S2,RRR, trace emea GI: soft, non tender, non distended Neuro: motor grossly intact, alert Psych: appropriate affect, appropriate insight desquamting erythema on bilateral feet Results Labs 05/22/25 12:18 05/22/25 12:18 Labs: Laboratory Results - last 24 hr 05/22/25 05/22/25 05/22/25 11:57 12:18 12:25 MCV 90.8 MCH 31.1 MCHC 34.3 RDW 15.1 Plt Count 241 D MPV 9.5 Immature Gran % (Auto) 1.3 H Neut % (Auto) 73.4 H Lymph % (Auto) 14.6 L [place] % (Auto) 8.0 Eos % (Auto) 2.0 Baso % (Auto) 0.7 Lymph # (Auto) 2.0 [place] # (Auto) 1.1 Eos # (Auto) 0.3 Baso # (Auto) 0.1 Abs Immat Gran (auto) 0.18 H Absolute Neuts (auto) 10.2 H Absolute Nucleated RBC 0.040 H Nucleated RBC % (auto) 0.3 H O2 Saturation ABG pH at Pt Temp ABG pCO2 at Pt Temp ABG pO2 at Pt Temp ABG HCO3 ABG Base Excess (Actual) VBG pH 7.42 VBG pCO2 40 VBG pO2 66 VBG HCO3 27 H VBG O2 Saturation 83.0 VBG Base Excess 2.5 Anion Gap 14 Estim Creat Clear Calc 89.3 Estimated GFR > 60 POC Glucose 187 H Random Glucose 185 H Lactic Acid Calcium 9.4 Total Bilirubin 0.4 Direct Bilirubin 0.1 AST 25 ALT 16 Alkaline Phosphatase 103 Troponin I High Sens 4.8 B-Natriuretic Peptide 27 Total Protein 6.5 Albumin 3.6 05/22/25 05/22/25 13:20 13:42 MCV MCH MCHC RDW Plt Count MPV Immature Gran % (Auto) Neut % (Auto) Lymph % (Auto) [place] % (Auto) Eos % (Auto) Baso % (Auto) Lymph # (Auto) [place] # (Auto) Eos # (Auto) Baso # (Auto) Abs Immat Gran (auto) Absolute Neuts (auto) Absolute Nucleated RBC Nucleated RBC % (auto) O2 Saturation 95.0 ABG pH at Pt Temp 7.47 H ABG pCO2 at Pt Temp 32 ABG pO2 at Pt Temp 76 L ABG HCO3 23 ABG Base Excess (Actual) 0.6 VBG pH VBG pCO2 VBG pO2 VBG HCO3 VBG O2 Saturation VBG Base Excess Anion Gap Estim Creat Clear Calc Estimated GFR POC Glucose Random Glucose Lactic Acid 1.4 Calcium Total Bilirubin Direct Bilirubin AST ALT Alkaline Phosphatase Troponin I High Sens B-Natriuretic Peptide Total Protein Albumin Imaging Radiologist's Impressions: Impressions Chest X-Ray 05/22/25 12:10 IMPRESSION: Suspected worsening pulmonary edema. Underlying pneumonia is not ruled out the right lung base versus increasing atelectasis. Left pleural effusion is probably increasing. Electronically signed by: William Garcia MD 05/22/2025 12:37 PM EDT RP Assessment and Plan (1) HER2-positive carcinoma of breast: Status: Acute Plan 65F PMH stage IV breast cancer with malignant pleural effusions, chronic hypoxic respiratory failure due to COPD on 2 L home O2, DM, chronic diastolic CHF, mood disorder, peripheral vascular disease presented with shortness of breath Acute on chronic hypoxic respiratory failure due to stage IV breast cancer with malignant pleural effusions bilateral, right worse than left Plan for IR drainage, PleurX placement Wean O2 as tolerated Diabetes Insulin sliding scale COPD DuoNebs as needed DVT prophylaxis with Lovenox Full Code Patient with significant hypoxia and shortness of breadth expected require at least 2 midnights inpatient Quality Stroke Does the patient have a stroke diagnosis?: No VTE Prior VTE?: No VTE Risk Level:: Medical - moderate - high VTE Device Contraindication: Treatment Not Indicated VTE Drug Contraindication: N/A - Med Ordered
--- NOTE | 2025-05-22 15:40 | PC.NURSE ---
Radiology at bedside for an U/S guided R thoracentesis; this RN will assist as needed
--- NOTE | 2025-05-22 16:06 | PC.NURSE ---
Approx 1300ml dark moshe fluid removed by radiology during R sided thoracentesis; pt tolerated well; vss@this time
[2025-05-22] MEDS: Lidocaine HCl 1 % MPF 5 ML VIAL SUBCUT (16:19)
[2025-05-22 17:19] LABS: Glucose, Whole Blood 335 mg/dL (60-115)
[2025-05-22 18:30] LABS: Appearance Urine Clear; Glucose Urine UA 100 mg/dL (Negative); PH 6.0 (5.0-9.0); Specific Gravity - Urine 1.015 (1.005-1.025); UMIC TRIGGER UACC YES
--- NOTE | 2025-05-22 20:11 | PHA.MEDREC ---
Pharmacy Consult ? Medication Reconciliation Pharmacy has completed the medication reconciliation. Patient was recently discharged on 05/08/25. Patient confirmed that nothing has changed except that her furosemide dose was increased to 40 mg daily. She confirmed her insulin doses and she takes trulicity 1.5 mg on tuesday. Last dose of medication was today in the morning.
[2025-05-22 21:11] LABS: Glucose, Whole Blood 295 mg/dL (60-115)
[2025-05-22] MEDS: Albuterol Sulfate (0.083%) 2.5 MG/3 ML VIAL.NEB INHALE (21:57)
[2025-05-22] MEDS: oxyCODONE HCl Immed Release 5 MG TABLET PO (22:38)
[2025-05-22] MEDS: 0.9 % Sodium Chloride Flush 3 ML SYRINGE IVFLUSH (22:39)
[2025-05-23 03:12] VITALS: BP 107/60; PULSE 98; RESP 20; TEMP 36.1; O2SAT 92
[2025-05-23 06:44] LABS: Anion Gap 14 (12-20); Blood Urea Nitrogen 26 mg/dL (9-16); Calcium 9.3 mg/dL (8.4-10.2); Carbon Dioxide 26 mmol/L (22-29); Chloride 104 mmol/L (96-108); Creatinine Clr Calc Pharmacy 77.8; Estimated Glomerular Filt Rate > 60; Magnesium 2.1 mg/dL (1.6-2.6); Potassium 4.4 mmol/L (3.3-5.1); Sodium 140 mmol/L (135-145)
[2025-05-23 07:14] LABS: Hematocrit 36.4 % (37.0-47.0); Hemoglobin 12.1 g/dl (12.0-16.0); Mean Corpuscular HGB Conc 33.2 g/dl (31.0-35.0); Mean Corpuscular Hemoglobin 30.2 pg (27.0-33.0); Mean Corpuscular Volume 90.8 fL (80.0-98.0); NRBC Abs Auto 0.000 X10*3/uL (0.0-0.012); NRBC Pct Auto 0.0 /100WBC (0.0-0.2); Platelet Count 249 X10*3/uL (160-400); Red Blood Count 4.01 X10*6/uL (4.20-5.50); White Blood Count 16.8 X10*3/uL (4.8-10.8)
[2025-05-23 07:24] LABS: Glucose, Whole Blood 219 mg/dL (60-115)
[2025-05-23 07:30] VITALS: BP 127/66; PULSE 92; RESP 16; TEMP 36.1; O2SAT 93
[2025-05-23] MEDS: Aspirin Enteric Coated 81 MG TABLET.DR PO (08:16)
[2025-05-23] MEDS: 0.9 % Sodium Chloride Flush 3 ML SYRINGE IVFLUSH (08:16)
--- NOTE | 2025-05-23 08:23 | HO.PM.IMPN ---
Subjective Subjective Date of Service: 05/23/25 Interval History: sob improved Physical Exam Vital Signs: Vital Signs: Last Vital Signs Temp 97.0 F 05/23/25 07:30 Pulse 92 05/23/25 07:30 Resp 16 05/23/25 07:30 BP 127/66 05/23/25 07:30 Pulse Ox 93 05/23/25 07:30 O2 Del Method Nasal Cannula 05/23/25 07:30 O2 Flow Rate 2 05/23/25 07:30 BMI result Body Mass Index 36.2 General: AO X 3, no acute distress Resp: CTA bilateral, no accessory muscles used CVS: S1,S2,RRR GI: soft, non tender, non distended Neuro: motor grossly intact, alert Psych: appropriate affect, appropriate insight Objective Data Active Medications Acetaminophen (Acetaminophen 325 Mg Tablet) 650 mg PO Q6H PRN PRN Reason: Pain, Mild 1-3,fever,headache Albuterol Sulfate (Albuterol Sulfate (0.083%) 2.5 Mg/3 Ml Vial.Neb) 2.5 mg INHALE Q4H PRN PRN Reason: for wheezing Last Admin: 05/22/25 21:57 Dose: 2.5 mg Documented By: AIMEE Albuterol/Ipratropium (Albuterol/Iprat 2.5/0.5mg 3 Ml Ampul.Neb) 3 ml INHALE RQ4H WHILE AWAKE PRN PRN Reason: sob Amlodipine Besylate (Amlodipine Besylate 5 Mg Tablet) 5 mg PO BID [facility]; Protocol Last Admin: 05/23/25 08:15 Dose: 5 mg Documented By: SAULO Aspirin (Aspirin Enteric Coated 81 Mg Tablet.Dr) 81 mg PO DAILY [facility] Last Admin: 05/23/25 08:16 Dose: 81 mg Documented By: SAULO Atorvastatin Calcium (Atorvastatin Calcium 80 Mg Tablet) 80 mg PO DAILY [facility] Last Admin: 05/23/25 08:15 Dose: 80 mg Documented By: SAULO Calcium Carbonate (Calcium Carbonate 750 Mg Tab.Chew) 750 mg PO Q4H PRN PRN Reason: Heartburn Clonidine HCl (Clonidine Hcl 0.1 Mg Tablet) 0.1 mg PO BEDTIME [facility]; Protocol Cyanocobalamin (Cyanocobalamin (Vitamin B-12) 1,000 Mcg Tablet) 1,000 mcg PO DAILY [facility] Last Admin: 05/23/25 08:16 Dose: 1,000 mcg Documented By: SAULO Dextrose (Dextrose 50 % 25 Gm/50 Ml Syringe) 25 gm IVPUSH Q15M PRN; Protocol PRN Reason: per Hypoglycemia Standing Ord. Enoxaparin Sodium (Enoxaparin Sodium 40 Mg/0.4 Ml Syringe) 40 mg SUBCUT Q24H [place] Furosemide (Furosemide 40 Mg Tablet) 40 mg PO DAILY [facility]; Protocol Last Admin: 05/23/25 08:15 Dose: 40 mg Documented By: SAULO Glucose (Glucose Gel 15 Gm Gel..Gram.) 15 gm PO Q15M PRN; Protocol PRN Reason: per Hypoglycemia Standing Ord. Insulin Human Lispro (Insulin Lispro 100 Unit/Ml 3 Ml Vial) 0 unit SUBCUT QIDACHS [facility]; Protocol Last Admin: 05/23/25 08:15 Dose: 4 unit Documented By: SAULO Letrozole (Letrozole 2.5 Mg Tablet) 2.5 mg PO DAILY [facility] Last Admin: 05/23/25 08:15 Dose: 2.5 mg Documented By: SAULO Lorazepam (Lorazepam 0.5 Mg Tablet) 0.25 mg PO Q6H PRN PRN Reason: anxiety/restlessness Last Admin: 05/22/25 22:33 Dose: 0.25 mg Documented By: ZENAIDA Magnesium Hydroxide (Milk Of Magnesia 30 Ml Oral.Susp) 30 ml PO DAILY PRN PRN Reason: Constipation Melatonin (Melatonin 3 Mg Tablet) 6 mg PO BEDTIME PRN PRN Reason: Insomnia Last Admin: 05/22/25 21:39 Dose: 6 mg Documented By: ZENAIDA Non-Formulary Medication (Vibegron [Gemtesa]) 75 mg PO DAILY [facility] Oxycodone HCl (Oxycodone Hcl Immed Release 5 Mg Tablet) 5 mg PO Q8H PRN PRN Reason: Breakthrough Pain, Moderate Last Admin: 05/22/25 22:38 Dose: 5 mg Documented By: ZENAIDA Paroxetine HCl (Paroxetine Hcl 20 Mg Tablet) 20 mg PO DAILY [facility] Last Admin: 05/23/25 08:15 Dose: 20 mg Documented By: SAULO Ropinirole HCl (Ropinirole Hcl 1 Mg Tablet) 1 mg PO BID [facility] Last Admin: 05/23/25 08:16 Dose: 1 mg Documented By: SAULO Sodium Chloride (0.9 % Sodium Chloride Flush 3 Ml Syringe) 3 ml IVFLUSH QSHIFT [facility] Last Admin: 05/23/25 08:16 Dose: 3 ml Documented By: SAULO Labs 05/23/25 05:40 05/23/25 05:40 Labs: Laboratory Results - last 24 hr 05/22/25 05/22/25 05/22/25 11:57 12:18 12:25 MCV 90.8 MCH 31.1 MCHC 34.3 RDW 15.1 Plt Count 241 D MPV 9.5 Immature Gran % (Auto) 1.3 H Neut % (Auto) 73.4 H Lymph % (Auto) 14.6 L [place] % (Auto) 8.0 Eos % (Auto) 2.0 Baso % (Auto) 0.7 Lymph # (Auto) 2.0 [place] # (Auto) 1.1 Eos # (Auto) 0.3 Baso # (Auto) 0.1 Abs Immat Gran (auto) 0.18 H Absolute Neuts (auto) 10.2 H Absolute Nucleated RBC 0.040 H Nucleated RBC % (auto) 0.3 H O2 Saturation ABG pH at Pt Temp ABG pCO2 at Pt Temp ABG pO2 at Pt Temp ABG HCO3 ABG Base Excess (Actual) VBG pH 7.42 VBG pCO2 40 VBG pO2 66 VBG HCO3 27 H VBG O2 Saturation 83.0 VBG Base Excess 2.5 Anion Gap 14 Estim Creat Clear Calc 89.3 Estimated GFR > 60 POC Glucose 187 H Random Glucose 185 H Lactic Acid Calcium 9.4 Magnesium Total Bilirubin 0.4 Direct Bilirubin 0.1 AST 25 ALT 16 Alkaline Phosphatase 103 Troponin I High Sens 4.8 B-Natriuretic Peptide 27 Total Protein 6.5 Albumin 3.6 Urine Color Urine Appearance Urine pH Ur Specific [place] Urine Protein Urine Glucose (UA) Urine Ketones Urine Blood Urine Nitrite Ur Leukocyte Esterase Urine RBC Urine WBC Ur Squamous Epith Cells Urine Bacteria Hyaline Casts Urine Yeast 05/22/25 05/22/25 05/22/25 13:20 13:42 17:16 MCV MCH MCHC RDW Plt Count MPV Immature Gran % (Auto) Neut % (Auto) Lymph % (Auto) [place] % (Auto) Eos % (Auto) Baso % (Auto) Lymph # (Auto) [place] # (Auto) Eos # (Auto) Baso # (Auto) Abs Immat Gran (auto) Absolute Neuts (auto) Absolute Nucleated RBC Nucleated RBC % (auto) O2 Saturation 95.0 ABG pH at Pt Temp 7.47 H ABG pCO2 at Pt Temp 32 ABG pO2 at Pt Temp 76 L ABG HCO3 23 ABG Base Excess (Actual) 0.6 VBG pH VBG pCO2 VBG pO2 VBG HCO3 VBG O2 Saturation VBG Base Excess Anion Gap Estim Creat Clear Calc Estimated GFR POC Glucose 335 H Random Glucose Lactic Acid 1.4 Calcium Magnesium Total Bilirubin Direct Bilirubin AST ALT Alkaline Phosphatase Troponin I High Sens B-Natriuretic Peptide Total Protein Albumin Urine Color Urine Appearance Urine pH Ur Specific [place] Urine Protein Urine Glucose (UA) Urine Ketones Urine Blood Urine Nitrite Ur Leukocyte Esterase Urine RBC Urine WBC Ur Squamous Epith Cells Urine Bacteria Hyaline Casts Urine Yeast 05/22/25 05/22/25 05/23/25 18:23 20:59 05:40 MCV 90.8 MCH 30.2 MCHC 33.2 RDW 15.3 Plt Count 249 MPV 10.6 Immature Gran % (Auto) Neut % (Auto) Lymph % (Auto) [place] % (Auto) Eos % (Auto) Baso % (Auto) Lymph # (Auto) [place] # (Auto) Eos # (Auto) Baso # (Auto) Abs Immat Gran (auto) Absolute Neuts (auto) Absolute Nucleated RBC 0.000 Nucleated RBC % (auto) 0.0 O2 Saturation ABG pH at Pt Temp ABG pCO2 at Pt Temp ABG pO2 at Pt Temp ABG HCO3 ABG Base Excess (Actual) VBG pH VBG pCO2 VBG pO2 VBG HCO3 VBG O2 Saturation VBG Base Excess Anion Gap 14 Estim Creat Clear Calc 77.8 Estimated GFR > 60 POC Glucose 295 H Random Glucose 215 H Lactic Acid Calcium 9.3 Magnesium 2.1 Total Bilirubin Direct Bilirubin AST ALT Alkaline Phosphatase Troponin I High Sens B-Natriuretic Peptide Total Protein Albumin Urine Color Dark Yellow Urine Appearance Clear Urine pH 6.0 Ur Specific [place] 1.015 Urine Protein Negative Urine Glucose (UA) 100 H Urine Ketones Trace Urine Blood Negative Urine Nitrite Negative Ur Leukocyte Esterase Trace H Urine RBC 0-2 Urine WBC 0-5 Ur Squamous Epith Cells 11-20 Urine Bacteria None Seen Hyaline Casts 3-5 Urine Yeast Present 05/23/25 07:14 MCV MCH MCHC RDW Plt Count MPV Immature Gran % (Auto) Neut % (Auto) Lymph % (Auto) [place] % (Auto) Eos % (Auto) Baso % (Auto) Lymph # (Auto) [place] # (Auto) Eos # (Auto) Baso # (Auto) Abs Immat Gran (auto) Absolute Neuts (auto) Absolute Nucleated RBC Nucleated RBC % (auto) O2 Saturation ABG pH at Pt Temp ABG pCO2 at Pt Temp ABG pO2 at Pt Temp ABG HCO3 ABG Base Excess (Actual) VBG pH VBG pCO2 VBG pO2 VBG HCO3 VBG O2 Saturation VBG Base Excess Anion Gap Estim Creat Clear Calc Estimated GFR POC Glucose 219 H Random Glucose Lactic Acid Calcium Magnesium Total Bilirubin Direct Bilirubin AST ALT Alkaline Phosphatase Troponin I High Sens B-Natriuretic Peptide Total Protein Albumin Urine Color Urine Appearance Urine pH Ur Specific [place] Urine Protein Urine Glucose (UA) Urine Ketones Urine Blood Urine Nitrite Ur Leukocyte Esterase Urine RBC Urine WBC Ur Squamous Epith Cells Urine Bacteria Hyaline Casts Urine Yeast Assessment and Plan (1) HER2-positive carcinoma of breast: Status: Acute Plan 65F PMH stage IV breast cancer with malignant pleural effusions, chronic hypoxic respiratory failure due to COPD on 2 L home O2, DM, chronic diastolic CHF, mood disorder, peripheral vascular disease presented with shortness of breath Acute on chronic hypoxic respiratory failure due to stage IV breast cancer with malignant pleural effusions bilateral, right worse than left improved s/p thoracocentesis of right pleural effusion, unable to place pleurx at this time until reaccumulates - can be done outpatient if needed Wean O2 as tolerated Diabetes Insulin sliding scale COPD DuoNebs as needed DVT prophylaxis with Lovenox Full Code reason for continued hospitalization:sob Quality Stroke Does the patient have a stroke diagnosis?: No VTE Prior VTE?: No VTE Risk Level:: Medical - moderate - high VTE Device Contraindication: Treatment Not Indicated VTE Drug Contraindication: N/A - Med Ordered
[2025-05-23] MEDS: oxyCODONE HCl Immed Release 5 MG TABLET PO (08:32)
[2025-05-23] MEDS: guaiFENesin DM 100/10/5 ML 5 ML SYRUP PO (09:24)
--- NOTE | 2025-05-23 10:22 | P.DS_ITS ---
DS: Providers Provider Date of Service: 05/23/25 Date of admission: 05/22/25 14:20 Date of discharge: 05/23/25 Primary care physician: Concepción Reyes MD DS: Diagnosis Discharge Diagnosis (1) HER2-positive carcinoma of breast: Status: Acute DS: Summary Hospital Course Hospital Course: from initial hpi: 65F PMH stage IV breast cancer with malignant pleural effusions, chronic hypoxic respiratory failure due to COPD on 2 L home O2, DM, chronic diastolic CHF, mood disorder, peripheral vascular disease presented with shortness of breath. Patient with multiple admissions for shortness of breath due to CHF, postobstructive pneumonia, pleural effusions over the last 2 months. Has had course of antibiotics, diuretics ruled out for pulmonary embolism, left-sided PleurX catheter inserted. On day of presentation walked in the bathroom and bec akin suddenly short of breath called EMS who placed patient on CPAP. In ED chest x-ray with right-sided effusion worsening, improved symptoms with CPAP. Now on 3 L saturating low 90s. Patient denies fever, chills, cough, chest pain. hospital course: Patient was admitted for acute on chronic hypoxic respiratory failure secondary to stage IV breast cancer with malignant bilateral pleural effusions right worse on left as patient has PleurX catheter on left side. She significantly improved with thoracentesis of the right pleural effusion but was unable to place PleurX catheter at this time we will have to wait until reaccumulates, can be done as outpatient if needed. Patient's shortness of breath has returned to baseline and will be discharged home. For diabetes was continued on insulin sliding scale. For COPD DuoNebs as needed. Time Attestation Discharge Coordination Time (in mins): 36 Quality: Safe Use of Opioids Does Pt have an Active Cancer Diagnosis on the Problem List?: Yes Opioid Measure Date for [facility] Report: 04/23/25 Opioid Measure Time for [facility] Report: 10:23 Quality: Stroke Does the patient have a stroke diagnosis?: No Physical Exam Vital Signs: Vital Signs: Last Vital Signs Temp 97.0 F 05/23/25 07:30 Pulse 92 05/23/25 07:30 Resp 16 05/23/25 07:30 BP 127/66 05/23/25 07:30 Pulse Ox 93 05/23/25 07:30 O2 Del Method Nasal Cannula 05/23/25 07:30 O2 Flow Rate 2 07/03/25 07:30 BMI result Body Mass Index 36.2 General: AO X 3, no acute distress Resp: CTA bilateral, no accessory muscles used CVS: S1,S2,RRR GI: soft, non tender, non distended Neuro: motor grossly intact, alert Psych: appropriate affect, appropriate insight DS: Data Data Completed and Pending Completed studies during hospitalization [Text1]: Procedures Drainage of Left Pleural Cavity with Drainage Device, Percutaneous Approach (05/04/25) Drainage of Right Pleural Cavity with Drainage Device, Percutaneous Approach (04/22/25) Labs on day of discharge: Laboratory Results - last 24 hr 05/22/25 05/22/25 05/22/25 11:57 12:18 12:25 WBC 13.9 H RBC 4.11 L Hgb 12.8 Hct 37.3 MCV 90.8 MCH 31.1 MCHC 34.3 RDW 15.1 Plt Count 241 D MPV 9.5 Immature Gran % (Auto) 1.3 H Neut % (Auto) 73.4 H Lymph % (Auto) 14.6 L Swift % (Auto) 8.0 Eos % (Auto) 2.0 Baso % (Auto) 0.7 Lymph # (Auto) 2.0 Swift # (Auto) 1.1 Eos # (Auto) 0.3 Baso # (Auto) 0.1 Abs Immat Gran (auto) 0.18 H Absolute Neuts (auto) 10.2 H Absolute Nucleated RBC 0.040 H Nucleated RBC % (auto) 0.3 H O2 Saturation ABG pH at Pt Temp ABG pCO2 at Pt Temp ABG pO2 at Pt Temp ABG HCO3 ABG Base Excess (Actual) VBG pH 7.42 VBG pCO2 40 VBG pO2 66 VBG HCO3 27 H VBG O2 Saturation 83.0 VBG Base Excess 2.5 Sodium 138 Potassium 3.9 Chloride 104 Carbon Dioxide 24 Anion Gap 14 BUN 15 Creatinine 0.72 Estim Creat Clear Calc 89.3 Estimated GFR > 60 POC Glucose 187 H Random Glucose 185 H Lactic Acid Calcium 9.4 Magnesium Total Bilirubin 0.4 Direct Bilirubin 0.1 AST 25 ALT 16 Alkaline Phosphatase 103 Troponin I High Sens 4.8 B-Natriuretic Peptide 27 Total Protein 6.5 Albumin 3.6 Urine Color Urine Appearance Urine pH Ur Specific [place] Urine Protein Urine Glucose (UA) Urine Ketones Urine Blood Urine Nitrite Ur Leukocyte Esterase Urine RBC Urine WBC Ur Squamous Epith Cells Urine Bacteria Hyaline Casts Urine Yeast 05/22/25 05/22/25 05/22/25 13:20 13:42 17:16 WBC RBC Hgb Hct MCV MCH MCHC RDW Plt Count MPV Immature Gran % (Auto) Neut % (Auto) Lymph % (Auto) Swift % (Auto) Eos % (Auto) Baso % (Auto) Lymph # (Auto) Swift # (Auto) Eos # (Auto) Baso # (Auto) Abs Immat Gran (auto) Absolute Neuts (auto) Absolute Nucleated RBC Nucleated RBC % (auto) O2 Saturation 95.0 ABG pH at Pt Temp 7.47 H ABG pCO2 at Pt Temp 32 ABG pO2 at Pt Temp 76 L ABG HCO3 23 ABG Base Excess (Actual) 0.6 VBG pH VBG pCO2 VBG pO2 VBG HCO3 VBG O2 Saturation VBG Base Excess Sodium Potassium Chloride Carbon Dioxide Anion Gap BUN Creatinine Estim Creat Clear Calc Estimated GFR POC Glucose 335 H Random Glucose Lactic Acid 1.4 Calcium Magnesium Total Bilirubin Direct Bilirubin AST ALT Alkaline Phosphatase Troponin I High Sens B-Natriuretic Peptide Total Protein Albumin Urine Color Urine Appearance Urine pH Ur Specific [place] Urine Protein Urine Glucose (UA) Urine Ketones Urine Blood Urine Nitrite Ur Leukocyte Esterase Urine RBC Urine WBC Ur Squamous Epith Cells Urine Bacteria Hyaline Casts Urine Yeast 05/22/25 05/22/25 05/23/25 18:23 20:59 05:40 WBC 16.8 H RBC 4.01 L Hgb 12.1 Hct 36.4 L MCV 90.8 MCH 30.2 MCHC 33.2 RDW 15.3 Plt Count 249 MPV 10.6 Immature Gran % (Auto) Neut % (Auto) Lymph % (Auto) Swift % (Auto) Eos % (Auto) Baso % (Auto) Lymph # (Auto) Swift # (Auto) Eos # (Auto) Baso # (Auto) Abs Immat Gran (auto) Absolute Neuts (auto) Absolute Nucleated RBC 0.000 Nucleated RBC % (auto) 0.0 O2 Saturation ABG pH at Pt Temp ABG pCO2 at Pt Temp ABG pO2 at Pt Temp ABG HCO3 ABG Base Excess (Actual) VBG pH VBG pCO2 VBG pO2 VBG HCO3 VBG O2 Saturation VBG Base Excess Sodium 140 Potassium 4.4 Chloride 104 Carbon Dioxide 26 Anion Gap 14 BUN 26 H Creatinine 0.82 Estim Creat Clear Calc 77.8 Estimated GFR > 60 POC Glucose 295 H Random Glucose 215 H Lactic Acid Calcium 9.3 Magnesium 2.1 Total Bilirubin Direct Bilirubin AST ALT Alkaline Phosphatase Troponin I High Sens B-Natriuretic Peptide Total Protein Albumin Urine Color Dark Yellow Urine Appearance Clear Urine pH 6.0 Ur Specific [place] 1.015 Urine Protein Negative Urine Glucose (UA) 100 H Urine Ketones Trace Urine Blood Negative Urine Nitrite Negative Ur Leukocyte Esterase Trace H Urine RBC 0-2 Urine WBC 0-5 Ur Squamous Epith Cells 11-20 Urine Bacteria None Seen Hyaline Casts 3-5 Urine Yeast Present 05/23/25 07:14 WBC RBC Hgb Hct MCV MCH MCHC RDW Plt Count MPV Immature Gran % (Auto) Neut % (Auto) Lymph % (Auto) [place] % (Auto) Eos % (Auto) Baso % (Auto) Lymph # (Auto) [place] # (Auto) Eos # (Auto) Baso # (Auto) Abs Immat Gran (auto) Absolute Neuts (auto) Absolute Nucleated RBC Nucleated RBC % (auto) O2 Saturation ABG pH at Pt Temp ABG pCO2 at Pt Temp ABG pO2 at Pt Temp ABG HCO3 ABG Base Excess (Actual) VBG pH VBG pCO2 VBG pO2 VBG HCO3 VBG O2 Saturation VBG Base Excess Sodium Potassium Chloride Carbon Dioxide Anion Gap BUN Creatinine Estim Creat Clear Calc Estimated GFR POC Glucose 219 H Random Glucose Lactic Acid Calcium Magnesium Total Bilirubin Direct Bilirubin AST ALT Alkaline Phosphatase Troponin I High Sens B-Natriuretic Peptide Total Protein Albumin Urine Color Urine Appearance Urine pH Ur Specific [place] Urine Protein Urine Glucose (UA) Urine Ketones Urine Blood Urine Nitrite Ur Leukocyte Esterase Urine RBC Urine WBC Ur Squamous Epith Cells Urine Bacteria Hyaline Casts Urine Yeast Discharge Plan Discharge Anticipated Discharge Date/Time: 05/23/25 10:13 Patient Disposition: Home, Self-Care Discharge Diagnosis: pleural effusion Referrals: Po,Concepción Browne MD [Primary Care Provider, Internal Medicine] - 1 Week Discharge Medications: Continued clonidine HCl 0.1 mg tablet 0.1 mg PO BEDTIME Qty: 90 11RF paroxetine HCl 20 mg tablet 20 mg PO DAILY 90 Days Qty: 90 5RF aspirin [Adult Aspirin Regimen] 81 mg tablet,delayed release (DR/EC) 81 mg PO DAILY 90 Days Qty: 90 11RF ropinirole 1 mg tablet 1 mg PO BID Qty: 180 8RF letrozole 2.5 mg Tablet 2.5 mg PO DAILY Qty: 90 12RF Anoro Ellipta 62.5-25 mcg/actuation blister with device 1 inh inhalation DAILY Qty: 60 12RF oxycodone-acetaminophen [Percocet] 5-325 mg tablet 1 tab PO Q8H PRN (Reason: Breakthrough Pain, Moderate) Qty: 50 0RF Rx Instructions: Partial Fill upon patient request. albuterol sulfate 2.5 mg /3 mL (0.083 %) solution for nebulization 2.5 mg inhalation Q4-6H PRN (Reason: for wheezing) Qty: 180 3RF (DME) baby wipes See Rx Instructions .Route .MEDSUPPLY Qty: 1 12RF Rx Instructions: As directed (DME) CHAIR LIFT See Rx Instructions .Route .MEDSUPPLY Qty: 1 0RF Rx Instructions: As directed (DME) Pull ups x-large See Rx Instructions .Route .MEDSUPPLY Qty: 240 11RF Rx Instructions: As directed (DME) lancets [FreeStyle Lancets] 28 gauge misc See Rx Instructions .ROUTE .COMPLEX Qty: 100 3RF Dose Instruction: USE DIRECTED THREE TIMES A DAY (BULK) Rx Instructions: USE DIRECTED THREE TIMES A DAY (BULK) (DME) FreeStyle Lite Strips Strip See Rx Instructions .ROUTE .MEDSUPPLY Qty: 100 3RF Rx Instructions: check BS 3X/DAY Gemtesa 75 mg tablet 75 mg PO DAILY Qty: 30 1RF (DME) blood-glucose meter [FreeStyle Lite Meter] Kit See Rx Instructions .ROUTE .MEDSUPPLY Qty: 1 0RF Rx Instructions: As directed amlodipine 5 mg tablet 5 mg PO BID 30 Days Qty: 60 1RF (DME) 500 mL Pleurx drains. See Rx Instructions .Route .MEDSUPPLY Qty: 15 3RF Rx Instructions: As directed cyanocobalamin (vitamin B-12) 1,000 mcg Tablet 1,000 mcg PO DAILY ferrous sulfate [Iron (ferrous sulfate)] 325 mg (65 mg iron) tablet 325 mg PO FR@0900 Rx Instructions: once a day for 1 week in a month zinc gluconate 50 mg tablet 50 mg PO DAILY Trulicity 1.5 mg/0.5 mL Pen Injector 1.5 mg SUBCUT FR furosemide 40 mg tablet 40 mg PO DAILY atorvastatin 80 mg tablet 80 mg PO DAILY sennosides [Senokot] 8.6 mg tablet 8.6 mg PO BID PRN (Reason: Constipation) triamcinolone acetonide 0.1 % cream 1 appl topical DAILY PRN (Reason: Itchy/Dry Skin) Rx Instructions: apply to affected area ondansetron 4 mg tablet,disintegrating 4 mg PO Q8H PRN (Reason: Nausea And Vomiting) clotrimazole 1 % cream 1 appl topical BID PRN (Reason: Fungal Infections) insulin aspart U-100 [Novolog FlexPen U-100 Insulin] 100 unit/mL (3 mL) insulin pen 10 - 20 unit subcut TIDAC solifenacin [Vesicare] 5 mg tablet 5 mg PO BEDTIME cholecalciferol (vitamin D3) 50 mcg (2,000 unit) capsule 50 mcg PO Q48H lorazepam 0.5 mg Tablet 0.25 mg PO Q6H PRN (Reason: Anxiety/Restlessness) Qty: 30 0RF nystatin [Nyamyc] 100,000 unit/gram Powder 1 appl topical BID Qty: 30 0RF Protocol: Apply to: Apply to: Perineal area and areas of redness avoid the face acetaminophen 325 mg capsule 325 mg PO QID PRN (Reason: Pain) (DME) matectomy BRA See Rx Instructions .Route .MEDSUPPLY Qty: 2 0RF Rx Instructions: As directed (DME) compress.stocking,knee,reg,lrg Misc See Rx Instructions .Route Qty: 12 0RF Rx Instructions: As directed 20-30 mm HG (DME) Incontinence BED PADS WASHABLE See Rx Instructions .Route .MEDSUPPLY Qty: 2 12RF Rx Instructions: As directed insulin glargine [Lantus Solostar U-100 Insulin] 100 unit/mL (3 mL) insulin pen 28 unit subcut DAILY Qty: 15 7RF (DME) pen needle, diabetic 32 gauge x 1/4 needle See Rx Instructions miscellaneous .MEDSUPPLY Qty: 100 5RF Rx Instructions: as directed with insulin albuterol sulfate 90 mcg/actuation HFA aerosol inhaler 1 puff inhalation QID PRN (Reason: Shortness Of Breath Or Wheezing) Qty: 8.5 3RF fluticasone propionate [Flonase Allergy Relief] 50 mcg/actuation spray,suspension 1 spray INTRANASAL BEDTIME Qty: 16 3RF Rx Instructions: administer into each nostril Discharge Orders: Discharge Order (Routine); Ordered 05/23/25 Ordered By: Junior Cronin Diet: Advance to usual diet Activity on Discharge: As tolerated Stand Alone Forms: Patient Portal Discharge page Print Language: Romanian Care Plan Goals: recovery Health Concerns: maligant effusion Plan of Treatment: if recurrence may beenfit from right sided pleurx Assessment: see above
--- NOTE | 2025-05-23 11:14 | MHC.CM.PN ---
[facility] DELIVERED PT LIVES WITH DAUGHTER AND USES [facility] FOR MOBILITY. PT HAS HOME 02 VIA [facility] AND IS ACTIVE WITH [facility]. + HCP ON FILE AND PCP DR. PATEL DP: PT HAS BEEN MEDICALLY CLEARED FOR DC HOME WITH RESUMPTION OF [facility] SERVICES. [facility] NOTIFIED OF TODAY'S DC. PT WILL TRANSPORT HOME VIA BLS VIA [facility] AT 2:30 PM. [facility] AUTH OBTAINED.
[2025-05-23 11:17] LABS: Glucose, Whole Blood 199 mg/dL (60-115)
[2025-05-23 14:42] VITALS: BP 148/67; PULSE 101; RESP 18; TEMP 36.8; O2SAT 94
--- NOTE | 2025-05-23 15:18 | PC.NURSE ---
pt port was flushed with 10 mL normal saline per protocol. access removed.
== END 2025-05-23 15:20 | disposition home or self-care (01) | DRG 597 ==
LOC: HO.ED 15:08 → HO.EDOVER 15:52 → HO.S3 19:23
PROVIDERS: Admitting Provider Internal Medicine; Emergency Provider Emergency Medicine Emergency Medical Services; PCP Internal Medicine; Visit Provider Internal Medicine
DX: C50.912 Malignant neoplasm of unspecified site of left female breast (principal); J96.21 Acute and chronic respiratory failure with hypoxia; I50.32 Chronic diastolic (congestive) heart failure; J91.0 Malignant pleural effusion; J44.9 Chronic obstructive pulmonary disease, unspecified; Z90.12 Acquired absence of left breast and nipple; I11.0 Hypertensive heart disease with heart failure; Z79.811 Long term (current) use of aromatase inhibitors; Z87.891 Personal history of nicotine dependence; Z99.81 Dependence on supplemental oxygen; Z79.4 Long term (current) use of insulin; Z79.51 Long term (current) use of inhaled steroids; Z79.82 Long term (current) use of aspirin; Z79.85 Long-term (current) use of injectable non-insulin antidiabetic drugs; Z79.899 Other long term (current) drug therapy
CPT/HCPCS: 32555; 36415; 71045; 80048; 80076; 81001; 82803; 82947; 83605; 83735; 83880; 84484; 85025; 85027; 87040; 93005; 94640; 99285; J0692; J1650; J1938; J2003; J2919

== ENCOUNTER → 2025-05-22 11:45 | Outpatient (BNV) | payer OTHER, SELFPAY | PROVIDERS: Emergency Provider Emergency Medicine Emergency Medical Services; PCP Internal Medicine; Visit Provider Internal Medicine Cardiovascular Disease | DX: R00.0 Tachycardia, unspecified (principal) | CPT/HCPCS: 93010 ==

== ENCOUNTER → 2025-05-22 11:45 | Outpatient (BNV) | payer OTHER, SELFPAY | PROVIDERS: Emergency Provider Emergency Medicine Emergency Medical Services; PCP Internal Medicine; Visit Provider Radiology Diagnostic Radiology | DX: J90 Pleural effusion, not elsewhere classified (principal) | CPT/HCPCS: 32555 ==

== ENCOUNTER → 2025-05-22 12:09 | Outpatient (BNV) | payer OTHER, SELFPAY | PROVIDERS: Emergency Provider Emergency Medicine Emergency Medical Services; PCP Internal Medicine; Visit Provider Internal Medicine | DX: J96.21 Acute and chronic respiratory failure with hypoxia (principal); C50.919 Malignant neoplasm of unspecified site of unspecified female breast; J91.0 Malignant pleural effusion | CPT/HCPCS: 99223; 99239 ==

== ENCOUNTER 2025-05-30 01:19 | Inpatient (IN) | payer OTHER, SELFPAY ==
[2025-05-30] VITALS (31 sets, daily range): BP systolic 66–151; BP diastolic 38–93; PULSE 83–138; RESP 21–39; TEMP 36.3–37.2; O2SAT 90–100; BMI 29.5
--- NOTE | ~2025-05-30 | XR_ITS ---
EXAMINATION: XR CHEST 1 VIEW HISTORY: follow up effusion COMPARISON: Comparison is made with the prior examination dated 06/01/2025. FINDINGS: A single AP portable view of the chest performed at 7:35 AM is submitted. A right-sided port is unchanged in position. Bilateral chest tubes are also unchanged in position. Again seen are small bilateral pleural effusions. There is subsegmental atelectasis versus pneumonia at both lung bases. There is no pneumothorax. The heart is mildly enlarged. There is degenerative disc disease of the spine. XR/XR chest 1V IMPRESSION: 1. Bilateral chest tubes in place without change. No pneumothorax. 2. Small bilateral pleural effusions with adjacent atelectasis versus pneumonia. Electronically signed by: Ravindra Roth MD 06/04/2025 07:47 AM EDT
--- NOTE | ~2025-05-30 | CT_ITS ---
EXAMINATION: CT CHEST WITHOUT CONTRAST CLINICAL INFORMATION: Bilateral loculated pleural effusions DLP: 653 mGY*cm COMPARISON: June 08, 2025 TECHNIQUE: Multidetector volumetric CT imaging of the chest was done. Axial MIP volume rendering provided. Sagittal and coronal reformatted images were obtained. This CT examination was performed using dose optimization techniques as appropriate, variously including the following: *Automated exposure control *Adjustment of mA and/or kV according to patient size (this includes techniques or standardized protocols for targeted exams where dose is matched to indication/reason for exam; i.e. extremities or head) *Use of iterative reconstruction technique FINDINGS: LUNGS: Intralobular septal thickening in the lung apexes remains evident and is slightly improved. There are also multifocal patchy groundglass opacities peripherally in the upper lobes that appears slightly improved. Small focal airspace opacity in the central right upper lobe is slightly increased in size. Somewhat linear airspace opacities in the posterior base of the right lower lobe and medial base of the left lower lobe appears similar. There is moderate compressive atelectasis in the left lower lobe, increased since the prior. Bronchovascular thickening in the central and lower lung zones is mildly improved. MEDIASTINUM: Unchanged and unremarkable. CORONARY ARTERY CALCIFICATION: Present PLEURA: PleurX catheter is again seen on the right, entering posterolaterally in the lower chest and extending anteriorly along the medial base of the pleural space in the left chest, terminating adjacent to the anterior lateral wall of the descending thoracic aorta. Moderately large left pleural effusion appears loculated and increasing in size. For example, at the level of the subcarinal space, loculated left pleural effusion measured 2.3 cm thick, previously 0.8 cm thick. Pigtail catheter in the right pleural space is no longer present. Loculated pleural effusion tracking lateral to the right middle lobe and right lower lung base is redemonstrated. Gas within the nondependent portion of the loculation has decreased. Overall, size of the loculation appears similar to slightly increased in size. On the current study, it measures up to 3.7 cm thick, previously 3.3 cm. The anterior posterior and cephalad extent of the loculation is also similar. Loculated effusion mid to upper lung zones appears increased. AXILLA: Again noted is left axillary adenopathy status post left mastectomy. UPPER ABDOMEN: Right adrenal gland nodule or mass is imaged. OSSEOUS STRUCTURES: Severe degenerative changes are present in the shoulder joints, greater on the right. There is a sclerotic lesion in the posterior superior sixth thoracic vertebral body. CT/CT chest wo IV con IMPRESSION: Pigtail catheter has been removed from loculated effusion. Right lateral pleural space. Loculated fluid is stable to slightly increased. Volume of gas collection has decreased. Overall, loculated effusion on the right side is mildly increased in the mid to upper chest. PleurX catheter remains in place in the lower left chest. Moderately large loculated pleural effusion on the left is increasing in volume. There is increasing atelectasis and/or pneumonia in the left lower lobe. Focal airspace opacity in the mid right upper lobe is slightly increased. This suggests an infectious etiology/pneumonia. Diffuse airspace disease otherwise appears mildly improved which could be related to improving pulmonary edema. Left mastectomy and left axillary adenopathy is unchanged. Sclerotic lesion in posterior superior T4 vertebral body is unchanged. Incompletely imaged nodule in the right suprarenal region is likely an adrenal gland nodule/metastatic lesion. Electronically signed by: William Garcia MD 06/13/2025 01:06 PM EDT
--- NOTE | ~2025-05-30 | XR_ITS ---
EXAMINATION: XR CHEST CLINICAL INFORMATION: SOB COMPARISON: Numerous priors, most recently 05/22/2025. TECHNIQUE: Frontal view of the chest was obtained. FINDINGS: Right chest port stable in position, tip at in the mid SVC. Left-sided Pleurx catheter noted in the left base. The cardiac silhouette is partially obscured. Mediastinal and hilar contours appear normal. Slightly increasing bilateral small to moderate pleural effusions are present, with associated bibasilar consolidation/passive atelectasis present. The aerated lungs appear clear. There is no perceptible pneumothorax. There are degenerative changes in the shoulder joints and throughout the spine. No soft tissue abnormalities noted. XR/XR chest 1V IMPRESSION: 1. Stable right chest port and left basilar Pleurx catheter. 2. Slightly enlarging bilateral pleural effusions, small to moderate-sized in volume, with associated bibasilar consolidation/passive atelectasis present. 3. No perceptible pneumothorax. Electronically signed by: Inocencio Chambers MD 05/30/2025 08:51 AM EDT
--- NOTE | ~2025-05-30 | XR_ITS ---
EXAMINATION: XR CHEST CLINICAL INFORMATION: Chest tube post tPA adm COMPARISON: X-ray 06/08/2025. CT guided right chest tube insertion 06/10/2025 TECHNIQUE: Frontal view of the chest was obtained. FINDINGS: There is a new right chest tube in the right lower lung along the lateral chest wall. Left Pleurx catheter and right Port-A-Cath is stable and unchanged. There is persistent bibasilar opacities which are stable.. There is no pneumothorax. The heart size and pulmonary vascularity is normal. No gross bony abnormality seen. XR/XR chest 1V IMPRESSION: New right chest tube along the right lung base. Port-A-Cath and left Pleurx catheter are stable. Bibasilar haziness likely combination of effusion and atelectasis stable. Electronically signed by: Valentin Hernandez MD 06/11/2025 07:21 AM EDT
--- NOTE | ~2025-05-30 | XR_ITS ---
CLINICAL HISTORY: SOB 1 view chest x-ray Comparison: None provided Findings: Bilateral pleural effusions with basilar subsegmental atelectasis or infiltrate. Normal size heart. No acute fracture. Right anterior chest wall Port-A-Cath with the distal tip in the superior vena cava IMPRESSION: Bilateral pleural effusions with basilar subsegmental atelectasis or infiltrate. This document has been electronically signed by: William Martin MD, PHD on 05/30/2025 02:35:52
--- NOTE | ~2025-05-30 | XR_ITS ---
EXAMINATION: XR CHEST 1 VIEW HISTORY: follow up effusion COMPARISON: Comparison is made with the prior examination dated 06/04/2025. FINDINGS: A single AP portable view of the chest performed at 9:24 AM is submitted. A right-sided port is unchanged in position. Bilateral chest tubes are again noted. The previously seen left pleural effusion appears slightly larger. A small right pleural effusion is unchanged in size. Underlying atelectasis or pneumonia at either lung base is not excluded. There is no pneumothorax or pulmonary vascular congestion. The heart remains mildly enlarged. There is degenerative disc disease of the spine. XR/XR chest 1V IMPRESSION: Bilateral chest tubes in place. Slight interval increase in size of the left pleural effusion. Underlying atelectasis or pneumonia at either lung base is not excluded. Electronically signed by: Ravindra Roth MD 06/05/2025 09:49 AM EDT
--- NOTE | ~2025-05-30 | XR_ITS ---
EXAMINATION: XR CHEST CLINICAL INFORMATION: sob COMPARISON: Same day, 10 hours earlier TECHNIQUE: Frontal view of the chest was obtained. FINDINGS: Again seen is a pleural catheter placed in the loculated effusion in the lateral right lung base with a small amount of air within the loculation. Moderate left pleural effusion is stable. 40 vessel crowding and prominence is bilateral and slightly increased. Tunneled IJ central port catheter tip terminates the superior cavoatrial junction. Moderate degenerative changes in both shoulder joints is again noted. XR/XR chest 1V IMPRESSION: Pulmonary vascular crowding and increased prominence raises question of pulmonary vascular congestion. Otherwise, stable exam. Electronically signed by: William Garcia MD 06/11/2025 04:18 PM EDT
--- NOTE | ~2025-05-30 | CT_ITS ---
CLINICAL HISTORY: ?loculated effusions CT CHEST WITHOUT CONTRAST Comparison: CT/SR - CT CHEST W IV CON - 05/04/25 22:34 EDT Findings: Prominent coronary arterial and aortic calcifications. Stable ectatic ascending thoracic aorta. No significant pericardial effusion. Heterogeneous right thyroid gland. No pathologically enlarged mediastinal lymph node. Left mastectomy changes. Again seen are multiple enlarged left axillary lymph nodes. Also unchanged borderline enlarged right axillary lymph nodes. A loculated pleural effusion in the lower lateral right hemithorax measures approximately 7.9 x 13.9 x 3.9 cm (Length x Height x Width). There is an air-fluid level. There is a concomitant small pleural effusion with no definite loculation. There is a drerz-kf-xxvsxijo left pleural effusion with no definite loculated component on noncontrast imaging. A pleural drainage catheter is identified in the lower left hemithorax with tip medially at the midthoracic level. Bilateral irregular septal thickening. Multiple bilateral patchy ground-glass opacities. Bilateral lower lobe irregular airspace opacities. There is a 1.0 cm irregular nodule in the right upper lobe which has developed since prior. The unenhanced liver appears heterogeneous and the possibility of multiple lesions is raised. Stable bilateral adrenal nodules which are technically indeterminate. Again seen is an irregular sclerotic lesion in T5. No significant vertebral body compression deformity. There is a 6th right rib fracture that was not present on the prior study. Right corby catheter tip is in the SVC. IMPRESSION: 1. Interval placement of a left pleural drainage catheter. The uphto-ka-gwmcfjwo volume left pleural effusion is decreased since prior. 2. Vgtnd-vs-qbhzvwnb air containing loculated pleural effusion in the lower right hemithorax. The presence of air could be related to an empyema or recent intervention. Concomitant small unencapsulated right pleural effusion. 3. Bilateral irregular septal thickening secondary to inflammation, infection or lymphangitic carcinomatosis. 4. There is diffuse bronchial wall thickening in the lower lobes. Multifocal bilateral ground-glass opacities an irregular lower lobe airspace opacities secondary to inflammation, infection or fluid overload. 5. 1 cm irregular right upper lobe nodule secondary to inflammation, infection or metastasis. 6. Left axillary lymphadenopathy without significant change. 7. Suspicion for a metastatic lesion in T5, without significant change. 8. Stable indeterminate bilateral adrenal lesions. Heterogeneous liver for which the possibility of multiple lesions cannot be excluded. 9. Acute to subacute 6th right rib fracture. This document has been electronically signed by: Lauren Tena DO on 06/08/2025 18:21:49
--- NOTE | ~2025-05-30 | US_ITS ---
PROCEDURE: Ultrasound-guided chest tube placement of the right and left Pleurx catheter wire manipulation. HISTORY: Right pleural effusion. The patient also has left-sided Pleurx catheter for recurrent effusions which has been malfunctioning despite TPA and dornase. SPECIMEN: None. ACCESS: 5 fr Yueh needle/catheter MEDICATIONS: 10 mL 1% lidocaine TECHNIQUE/FINDINGS Appropriate preprocedural clinical history and imaging studies were reviewed. The patient was brought to the department and placed in the seated position. Ultrasound images of the right thorax were obtained to localize a moderate pleural effusion. Permanent ultrasound images were saved. The risks and benefits and possible complications were discussed with the patient and consent form was signed. An area of the patient's right back was prepped and draped in the usual sterile fashion. 10 mL of 1% lidocaine was used to obtain local anesthesia of the skin and deeper tissues. A 5 gauge hypodermic needle was introduced to sample pleural fluid and demonstrate a safe access route. A 5 Lithuanian Yueh catheter was then used to access the pleural cavity. A 0.035 guidewire was then placed through the catheter and into the chest. The access site was then dilated. An 8 fr locking catheter was then advanced over the wire and into the chest cavity. The wire was removed and the catheter was secured to the skin with a single suture and a sterile dressing was applied over the site. The catheter was then connected to a close chest drainage system. The left sided Pleurx catheter was sterilely prepped and draped. Due to both air and rib shadowing, the Pleurx catheter was difficult to visualize utilizing ultrasound. The catheter was removed from the Pleurx catheter and a 0.035 Lozano wire was inserted into the catheter. There was difficulty navigating and resistance was met about where the catheter portion that is tunneled dives into the thorax. It was hard to determine whether the wire was unable to follow the course of the catheter because the catheter is so very thin and flexible or whether there was an actual kink in the catheter. We did not want to run the risk of puncturing the catheter therefore we elected to utilize a oojq-bcv-zajnr motion just before resistance was met with hopes of clearing the catheter of any debris. The wire was then removed and pleural fluid was actively draining, the Pleurx catheter was then recapped. The patient tolerated the procedure well. There were no immediate complications. Chest x-ray status post chest tube placement to follow. US/US drain thoracentesis w image Impression: Ultrasound-guided right chest tube placement yielding yellow fluid. See nursing flowsheet for amount. Wire manipulation of left sided Pleurx catheter. Plan: The left-sided Pleurx catheter has been draining some fluid however may need revision at a later time if issues persist. Monitor patient's overall respiratory status for improvement with new right-sided chest tube. When patient downgraded from intensive care, can have discussion about right sided chest tube conversion to a Pleurx catheter. This procedures performed by Jose Luis Ruiz NP and supervised by Remi Rausch MD . Electronically signed by: Jelani Rausch MD 06/04/2025 03:35 PM EDT
--- NOTE | ~2025-05-30 | CT_ITS ---
PROCEDURE: CT-GUIDED INSERTION, PLEURAL TUNNEL CATHETER CLINICAL INFORMATION: Insertion of right chest tube. Previous chest tube followed. COMPARISON: Bilateral loculated effusions. History of breast cancer with left mastectomy. TECHNIQUE: Following explaining CT fluoroscopy guided placement of right chest tube catheter procedure, benefits and risk, a written consent was obtained. Patient was placed supine slightly in left decubitus position and CT imaging was obtained. Markers were placed along the right lateral chest wall and repeat imaging was performed. An optimal marker was selected and marked on the skin. The marked site was cleaned and draped in usual sterile manner. 1% lidocaine was injected. Through a small skin incision a 5 Slovenian Yueh catheter was advanced into pleural space. After removing stylet and observing fluid return, stylet was withdrawn and a 0.035 J-wire was inserted through the 5 Slovenian sheath into the pleural space and catheter withdrawn. A 5 Slovenian APD catheter with a stiffener was inserted over the guidewire and placed in the right pleural space. The guide was removed and the pigtail formed. The catheter was anchored to the skin with several 3 0 nonabsorbable nylon sutures. The catheter was then connected via 3 way valve to wall suction. Sterile dressing applied at the puncture site. IV conscious sedation was utilized in exam patient monitored by IR nurse and IR physician. This CT examination was performed using dose optimization techniques as appropriate, variously including the following: *Automated exposure control *Adjustment of mA and/or kV according to patient size (this includes techniques or standardized protocols for targeted exams where dose is matched to indication/reason for exam; i.e. extremities or head) *Use of iterative reconstruction technique. FINDINGS: There is loculated right lateral midlung pleural effusion seen. Incidental finding of previously placed left Pleurx catheter. There is a right 6 Slovenian APD catheter in the right lateral loculated pleural space in similar location as noted on the previous chest tube insertion. CT/CT chest tube placement IMPRESSION: Successful placement of right chest catheter in loculated right pleural effusion along the lateral chest wall. This time it was anchored to the chest with 3-0 nonabsorbable sutures. DLP 523 mGy/cm. Electronically signed by: Valentin Hernandez MD 06/10/2025 04:37 PM EDT
--- NOTE | ~2025-05-30 | XR_ITS ---
CLINICAL HISTORY: effusion follow up 1 view chest x-ray Comparison: 06/06/2025 Findings: Portions of the exam are obscured by overlying material. Overall appearance of the chest including consolidation, bilateral pleural effusions possibly partially loculated, and venous access catheter, are unchanged. IMPRESSION: 1. No significant change from prior exam. This document has been electronically signed by: Gregorio Wallace MD on 06/08/2025 08:30:55
--- NOTE | ~2025-05-30 | XR_ITS ---
EXAMINATION: XR CHEST 1 VIEW HISTORY: Chest tube/ post tPA COMPARISON: Comparison is made with the prior examination dated 06/11/2025. FINDINGS: A single AP portable view of the chest performed at 6:14 AM is submitted. A right-sided port is unchanged in position. Again seen are bilateral chest tubes. There is persistent prominence of the pulmonary vasculature, consistent with congestion. There are mtond-yj-lmimzzbu bilateral pleural effusions without change. The heart remains enlarged. There is no pneumothorax. There is degenerative disc disease of the spine. XR/XR chest 1V IMPRESSION: 1. Bilateral chest tubes in place. 2. Cardiomegaly, pulmonary vascular congestion, and small to moderate bilateral pleural effusions. Electronically signed by: Ravindra Roth MD 06/12/2025 07:21 AM EDT
--- NOTE | ~2025-05-30 | XR_ITS ---
CLINICAL HISTORY: s p right sided chest tube insertion 1 view chest x-ray Comparison: CR/SR - XR CHEST 1V - 05/30/25 08:28 EDT Findings: Interval placement of a right-sided chest tube within the inferior aspect of the chest. A left basilar chest tube remains in place. There are moderate bilateral pleural effusions, ysls-ittpaek-nhuo-right, slightly improved on the right. There are airspace opacities within the right mid and lower lung and at the left lung base. Slight interval improvement on the right. No evidence of pneumothorax. The heart is mildly enlarged. No acute fracture. There is a right-sided Port-A-Cath within the superior vena cava. IMPRESSION: 1. Moderate bilateral pleural effusions with slight interval improvement on the right. 2. Bilateral pulmonary infiltrates and/or atelectasis, uogpa-sgkoitq-yfca-left, with interval improvement on the right. This document has been electronically signed by: Lubna Sal MD on 05/31/2025 16:39:41
--- NOTE | ~2025-05-30 | XR_ITS ---
CLINICAL HISTORY: sob 1 view chest x-ray. Comparison: CR/SR - XR CHEST 1 VIEW - 06/05/25 09:24 EDT Findings: Left basilar chest tube/PleurX catheter is in stable position. Right basilar chest tube seen on the prior study may be obscured by multiple overlying wires. There is a stable small left pleural effusion. There is a small loculated right hydropneumothorax at the right lung base. The pneumothorax component is almost certainly an ex vacuo pneumothorax. There is stable left basilar opacity and increased opacity in the right mid to lower lung likely atelectasis and/or infiltrate. Cardiomediastinal silhouette is grossly stable. Right IJ port catheter tip is in the SVC. IMPRESSION: Findings as above. This document has been electronically signed by: Agustin Diaz MD on 06/06/2025 23:19:47
--- NOTE | ~2025-05-30 | XR_ITS ---
CLINICAL HISTORY: SOB 1 view chest x-ray Comparison: CR - XR CHEST 1V - 05/31/25 16:13 EDT Findings: Small bilateral pleural effusions with interval improvement bilaterally. Airspace opacities within the bilateral lower lungs with interval improvement. No pneumothorax. Bilateral chest tubes remain in place. Mildly enlarged heart. No acute fracture. There is a right-sided port-A-Cath within the superior vena cava. IMPRESSION: 1. Small bilateral pleural effusions with interval improvement. 2. Bibasilar infiltrates and atelectasis with interval improvement. This document has been electronically signed by: Lubna Sal MD on 06/01/2025 13:49:01
--- NOTE | 2025-05-30 02:51 | ECG_ITS ---
Test Reason : SOB Blood Pressure : */* mmHG Vent. Rate : 113 BPM Atrial Rate : 113 BPM P-R Int : 118 ms QRS Dur : 88 ms QT Int : 338 ms P-R-T Axes : 61 26 7 degrees QTcB Int : 463 ms Sinus tachycardia Otherwise normal ECG No previous ECGs available Referred By: Chet Jaime Electronically Signed By: Vik Evangelista
--- OUTSIDE RECORDS SUMMARY | 2025-05-30 05:09 | XMS_ITS | Clinical Summary ---
Author Organization [facility] Address [address] [place] [address] Care Team Providers Care Terrazzo Polisher Name Role Phone Unavailable Primary Care Provider [...] mcg/actuation inhalerIndicati ons:COPD (chronic obstructive pulmonary disease) ([facility]),Influe nza A Inhale 2 Puffs into the lungs every 4 (four) hours as needed for shortness of breath or wheezing. 1 Inhaler 3 5 Active traZODone (DESYREL) 50 mg tabletIndicatio ns:Insomnia,Dep ression Take 1 Tab by mouth nightly at bedtime. 30 Tab 0 5 Active aspirin 325 mg tabletIndicatio ns:HTN (hypertension), COPD (chronic obstructive pulmonary disease) ([facility]) Take 1 Tab by mouth once daily. 30 Tab 3 5 Active NIFEdipine (ADALAT CC) 60 mg 24 hr tabletIndicatio ns:HTN (hypertension) Take 1 Tab by mouth once daily. Take on an empty stomach. Swallow whole. Do not break, crush or chew. 30 Tab 3 5 Active predniSONE (DELTASONE) 10 mg tabletIndicatio ns:COPD (chronic obstructive pulmonary disease) ([facility]) Take 1 Tab by mouth once daily. 30 Tab 0 5 Active budesonide-form oterol (SYMBICORT) 80-4.5 mcg/actuation inhalerIndicati ons:COPD (chronic obstructive pulmonary disease) ([facility]) Inhale 2 Puffs into the lungs 2 (two) times daily. 1 Inhaler 3 5 Active albuterol (PROVENTIL) 2.5 mg /3 mL (0.083 %) nebulizer solutionIndicat ions:COPD (chronic obstructive pulmonary disease) ([facility]) Take 3 mL by nebulization every [...] mcg/actuation aepbIndications :COPD (chronic obstructive pulmonary disease) ([facility]) Inhale 1 Inhaler into the lungs 2 (two) times daily. 1 Inhaler 6 5 Active clotrimazole-be tamethasone (LOTRISONE) 1-0.05 % lotionIndicatio ns:Rash Apply topically 2 (two) times daily. 30 mL 1 5 Active Active Problems Problem Noted Date Diagnosed Date Depression 01/28/2015 COPD (chronic obstructive pu lmonary disease) ([facility]) 01/28/2015 Incontinence of urine in female [...]
[2025-05-30 05:56] LABS: MANUAL DIFF FLAG NO
--- NOTE | 2025-05-30 05:56 | ED.GENADULT ---
HPI - General Adult General Chief complaint: Dyspnea Stated complaint: SoB Time Seen by Provider: 05/30/25 05:41 Source: patient and EMS Mode of arrival: EMS Limitations: other ( significant shortness of breath) History of Present Illness ED Provider: Dr. Aby Kovacs HPI narrative: please see paper chart which was started during downtime overall, patient complaining of shortness of breath, history of COPD and CHF Related Data Home Medications ?Medication ?Instructions ?Recorded ?Confirmed acetaminophen 325 mg capsule 325 mg PO QID PRN Pain 09/01/22 05/22/25 cyanocobalamin (vitamin B-12) 1,000 mcg PO DAILY 09/04/22 05/22/25 1,000 mcg tablet ferrous sulfate 325 mg (65 mg 325 mg PO FR@0900 08/09/24 05/22/25 iron) tablet (Iron (ferrous sulfate)) zinc gluconate 50 mg tablet 50 mg PO DAILY 08/09/24 05/22/25 atorvastatin 80 mg tablet 80 mg PO DAILY 04/03/25 05/22/25 cholecalciferol (vitamin D3) 50 50 mcg PO Q48H 04/03/25 05/22/25 mcg (2,000 unit) capsule clotrimazole 1 % topical cream 1 appl topical BID PRN Fungal 04/03/25 05/22/25 Infections insulin aspart U-100 100 unit/mL 10 - 20 unit subcut TIDAC 04/03/25 05/22/25 (3 mL) subcutaneous pen (Novolog FlexPen U-100 Insulin aspart) ondansetron 4 mg disintegrating 4 mg PO Q8H PRN Nausea And Vomiting 04/03/25 05/22/25 tablet sennosides 8.6 mg tablet (Senokot) 8.6 mg PO BID PRN Constipation 04/03/25 05/22/25 solifenacin 5 mg tablet (Vesicare) 5 mg PO BEDTIME 04/03/25 05/22/25 triamcinolone acetonide 0.1 % 1 appl topical DAILY PRN Itchy/Dry 04/03/25 05/22/25 topical cream Skin dulaglutide 1.5 mg/0.5 mL 1.5 mg subcut FR 04/22/25 05/22/25 subcutaneous pen injector (Trulicity) furosemide 40 mg tablet 40 mg PO DAILY 05/22/25 05/22/25 Previous Rx's ?Medication ?Instructions ?Recorded matectomy BRA #2 ea 10/11/23 Incontinence BED PADS WASHABLE #2 ea 01/13/24 compress.stocking,knee,reg,lrg #12 ea 01/13/24 clonidine HCl 0.1 mg tablet 0.1 mg PO BEDTIME #90 tabs 07/10/24 paroxetine HCl 20 mg tablet 20 mg PO DAILY 90 days #90 tabs 07/10/24 aspirin 81 mg tablet,delayed 81 mg PO DAILY 90 days #90 tabs 08/24/24 release (Adult Aspirin Regimen) ropinirole 1 mg tablet 1 mg PO BID #180 tabs 10/12/24 letrozole 2.5 mg tablet 2.5 mg PO DAILY #90 tabs 10/24/24 umeclidinium 62.5 mcg-vilanterol 1 inh inhalation DAILY #60 ea 10/27/24 25 mcg/actuation powdr for inhalation (Anoro Ellipta) oxycodone-acetaminophen 5 mg-325 1 tab PO Q8H PRN Breakthrough 01/31/25 mg tablet (Percocet) Pain, Moderate #50 tabs pen needle, diabetic 32 gauge x #100 ea 02/07/25 1/ CHAIR LIFT #1 ea 02/15/25 Pull ups #240 ea 02/15/25 baby wipes #1 ea 02/15/25 lancets 28 gauge (FreeStyle #100 ea 03/01/25 Lancets) insulin glargine 100 unit/mL (3 28 unit (0.28 mL) subcut DAILY #15 03/07/25 mL) subcutaneous pen (Lantus mL Solostar U-100 Insulin) blood sugar diagnostic (FreeStyle #100 ea 03/29/25 Lite Strips) albuterol sulfate 90 mcg/actuation 1 puff inhalation QID PRN 04/18/25 aerosol inhaler Shortness Of Breath Or Wheezing #8.5 grams fluticasone propionate 50 1 spray intranasal BEDTIME #16 04/18/25 mcg/actuation nasal grams spray,suspension (Flonase Allergy Relief) amlodipine 5 mg tablet 5 mg PO BID 30 days #60 tabs 04/26/25 blood-glucose meter (FreeStyle #1 ea 04/26/25 Lite Meter kit) vibegron 75 mg tablet (Gemtesa) 75 mg PO DAILY #30 tabs 04/26/25 lorazepam 0.5 mg tablet 0.25 mg (1/2 x 0.5 mg) PO Q6H PRN 05/08/25 Anxiety/Restlessness #30 tabs nystatin 100,000 unit/gram topical 1 appl topical BID #30 grams 05/08/25 powder (Nyamyc) 500 mL Pleurx drains. #15 ea 05/14/25 albuterol sulfate 2.5 mg/3 mL 2.5 mg (3 mL) inhalation Q4-6H PRN 05/27/25 (0.083 %) solution for nebulization for wheezing #180 mL Allergies Allergy/AdvReac Type Severity Reaction Status Date / Time diclofenac (From Voltaren) Allergy Severe enlarged Verified 05/30/25 06:02 liver lisinopril (From Zestril) Allergy Severe Angioedema Verified 05/30/25 06:02 losartan Allergy Severe Angioedema Verified 05/30/25 06:02 omeprazole Allergy Intermediate elevated Verified 05/30/25 06:02 blood pressure Penicillins (PENICILLINS) Allergy Intermediate Facial Verified 05/30/25 06:02 Swelling oxybutynin (Oxybutynin) AdvReac Severe body Verified 05/30/25 06:02 twitching gabapentin AdvReac Intermediate Hypertensio Verified 05/30/25 06:02 n metformin AdvReac Intermediate Diarrhea Verified 05/30/25 06:02 duloxetine AdvReac Intermediate tachycardia Uncoded 05/30/25 06:02 Review of Systems Review of Systems: Constitutional : No Weight loss, No Fever, No Chills, No Night Sweats, No Fatigue, No Malaise ENT/Mouth : No Hearing loss, No Ear Pain, No Nasal Congestion, No Sinus Pain, No Hoarseness, No sore throat, No Rhinorrhea, No Swallowing Difficulty Eyes: No Eye Pain, No Swelling, No Redness, No Foreign Body, No Discharge, No Vision Changes Cardiovascular : No Chest Pain, complaining of shortness of breath, orthopnea, lower extremity edema Respiratory : No Cough, No Sputum, complaining of wheezing, shortness of breath at rest and with exertion Gastrointestinal : No Nausea, No Vomiting, No Diarrhea, No Constipation, No abdominal Pain, No Hematochezia, No Melena Genitourinary : no irregular bleeding, No Dysuria, No Urinary Frequency, No Hematuria, No Urinary Incontinence, No Urgency, No Flank Pain, No Urinary Flow Changes, No Hesitancy Musculoskeletal : No joint pain, No Myalgias, No Joint Swelling Skin : No Skin Lesions, No rash Neuro : No Weakness, No Numbness, No Paresthesias, No Loss of Consciousness, No Dizziness, No Headache Psych : No Anxiety/Panic, No Depression, No SI/HI/AH/VH, No Social Issues, Heme/Lymph: No Bruising, No Bleeding,No Lymphadenopathy Endocrine : No Polyuria, No Polydipsia, No Temperature Intolerance [facility] Past Medical History Medical History Stenosis of left subclavian artery Maculopapular rash, localized Recurrent pleural effusion Malignant pleural effusion Generalized anxiety disorder TIA (transient ischemic attack) (~12/2024) Recent bereavement Environmental and seasonal allergies HLD (hyperlipidemia) Multinodular goiter Peripheral neuropathy History of short term memory loss [place] in place Smoker Family history of prostate cancer in father Leg swelling Shortness of breath Effusion of left knee Weakness Fall Thyroid nodule Adrenal adenoma Vision changes Diabetes History of palpitations History of unsteady gait Low back pain Arthritis Mild heartburn Hx of renal calculi Vaginal yeast infection Encounter to discuss test results 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 Cervical cancer screening Type 2 diabetes mellitus with hyperglycemia History of anal fissures Peripheral vascular disease Urinary incontinence Hypertension COPD (chronic obstructive pulmonary disease) Hypercholesterolemia Surgical History Hx of colonoscopy H/O total mastectomy of left breast (12/21/22) History of biopsy History of endometrial ablation Hx of tubal ligation History of tonsillectomy History of appendectomy History of cholecystectomy History of bladder surgery History of left knee replacement Family History Family History Mother History of breast cancer Father Prostate CA Brother No problems noted. Brother No problems noted. Daughter No problems noted. Social History Social History Household Members: Children Household Members Other:: adult daughter Housing: House Are you a primary primary care sales representative to a significant other at home: No Do you presently have visiting nurse or other home services: Yes Alcohol intake: current Alcohol intake frequency: holidays/special occasions only Comment: pt rings appropriately Patient Tobacco Use Status: Former Tobacco user Tobacco use type: Cigarette Cigarette Packs Per Day: 1 Years Smoked: 40, 1 pack a day e-Cigarette/Vaping Use: Former Use Second Hand Smoke Exposure: No Advance Directives: Yes Advance Directives on File: Yes Advance Directives Date on File: 04/26/25 Do you have a plan to hurt others: No Plan service: No Current occupational status: disabled Cognitive needs: No Hearing needs: No Vision needs: Yes Physical Exam ED Vital Signs: BMI result Body Mass Index 29.5 Const Other: Appearance: Alert. Oriented X3. looks fatigued, clammy Eyes: Pupils equal, round and reactive to light. ENT: Pharynx normal. Neck: Normal inspection. Neck supple. No lymph nodes noted. No crepitus CVS: Normal heart rate and rhythm. Pulses normal. Normal S1 and S2 Respiratory: bilateral rales and crackles, bilateral wheezing Abdomen: Soft and nontender. No rigidity. No distention. Skin: Skin warm and dry. Normal skin color. Normal skin turgor. Extremities: No lower extremity edema. No Lacerations. No Rash Neuro: Oriented X 3. No motor deficit. No sensory deficit. Moving all extremities. No slurred speech. CN 2 through 12 grossly intact Psych: calm, cooperative, normal affect Course Course Course Narrative: please see paper chart for progress / course note given patient's respiratory distress, patient was started on CPAP. We attempted to wean down the patient's several times but patient's oxygen saturation kept dropping to 78% on her usual 2 L. Medical Decision Making Medical Decision Making MDM Narrative: overall, it was impossible to wean patient off BiPAP. Every time that we tried, patient's oxygen saturation dropped to 78% on 2 L nasal cannula. Even if we tried increasing her oxygen, patient became very tachypneic, uncomfortable, diaphoretic. Patient breathing comfortably on CPAP. Lab Data 05/30/25 01:25 Labs: Lab Results 05/30/25 Range/Units 01:25 WBC 15.8 H (4.8-10.8) X10*3/uL RBC 4.30 (4.20-5.50) X10*6/uL Hgb 13.1 (12.0-16.0) g/dl Hct 39.7 (37.0-47.0) % MCV 92.3 (80.0-98.0) fL MCH 30.5 (27.0-33.0) pg MCHC 33.0 (31.0-35.0) g/dl RDW 15.0 (11.0-16.0) % Plt Count 355 D (160-400) X10*3/uL MPV 9.8 (9.4-12.3) fL Immature Gran % (Auto) 3.0 H (0.0-0.4) % Neut % (Auto) 60.9 (45-73) % Lymph % (Auto) 21.7 (20-40) % [place] % (Auto) 8.8 (2-11) % Eos % (Auto) 4.7 H (0-4) % Baso % (Auto) 0.9 (0-2) % Lymph # (Auto) 3.4 (1.2-4.9) X10*3/uL [place] # (Auto) 1.4 H (0.1-1.2) X10*3/uL Eos # (Auto) 0.7 H (0.0-0.4) X10*3/uL Baso # (Auto) 0.2 (0.0-0.2) X10*3/uL Abs Immat Gran (auto) 0.47 H (0.00-0.03) X10*3/uL Absolute Neuts (auto) 9.6 H (2.0-8.3) x10*3/uL Absolute Nucleated RBC 0.090 H (0.0-0.012) X10*3/uL Nucleated RBC % (auto) 0.6 H (0.0-0.2) /100WBC Critical Care Time Critical Care Time Critical Care Time: Yes Total Critical Care Time: 75 Attestation: I have personally provided critical care time. Time includes review of lab data, radiology results, discussion with consultants, and monitoring for potential decompensation. Intervention performed as documented. Discharge Plan Discharge Clinical Impression: Acute exacerbation of CHF (congestive heart failure), Pneumonia Patient Disposition: Admitted As Inpatient Print Language: [place]
[2025-05-30 05:58] LABS: Hematocrit 39.7 % (37.0-47.0); Hemoglobin 13.1 g/dl (12.0-16.0); Imm Gran Abs Auto 0.47 X10*3/uL (0.00-0.03); Imm Gran Pct Auto 3.0 % (0.0-0.4); Lymphocytes Absolute Auto 3.4 X10*3/uL (1.2-4.9); Mean Corpuscular HGB Conc 33.0 g/dl (31.0-35.0); Mean Corpuscular Hemoglobin 30.5 pg (27.0-33.0); Mean Corpuscular Volume 92.3 fL (80.0-98.0); NRBC Abs Auto 0.090 X10*3/uL (0.0-0.012); NRBC Pct Auto 0.6 /100WBC (0.0-0.2); Platelet Count 355 X10*3/uL (160-400); Red Blood Count 4.30 X10*6/uL (4.20-5.50); White Blood Count 15.8 X10*3/uL (4.8-10.8)
[2025-05-30 06:24] LABS: Venous Blood Gas Refer to POC result
[2025-05-30 06:27] LABS: B Type Natriuretic Peptide 21 pg/mL (<100)
[2025-05-30 06:28] LABS: Troponin-I High Sensitivity 24.0 ng/L (<3.5-17.0)
[2025-05-30 06:30] LABS: Alanine Aminotransferase 23 U/L (0-31); Albumin Level 3.9 g/dL (3.5-5.0); Alkaline Phosphatase 130 U/L (39-117); Anion Gap 17 (12-20); Aspartate Amino Transferase 33 U/L (5-31); Blood Urea Nitrogen 14 mg/dL (9-16); Calcium 9.4 mg/dL (8.4-10.2); Carbon Dioxide 22 mmol/L (22-29); Chloride 101 mmol/L (96-108); Creatinine Clr Calc Pharmacy 86.3; Estimated Glomerular Filt Rate > 60; Potassium 4.2 mmol/L (3.3-5.1); Sodium 136 mmol/L (135-145); Total Protein 7.0 g/dL (6.5-8.0)
[2025-05-30 06:34] LABS: VBG HCO3 26 mmol/L (22-26); VBG O2 % Saturation 95.0 %
--- NOTE | 2025-05-30 06:35 | PC.NURSE ---
Pt arrived via EMS during downtime. Paper documentation in chart. On arrival pt was given Magnesium 1g via IV, Lorazepam 2mg via IVPUSH, Solu-medrol 125mg IVPUSH, Furosemie 40mg IVPUSH, Ceftriaxone 1g IVPUSH, and NS 150cc via IV. 20G on R wrist. Pt has been sinus tach on monitor with HR 100's. On bipap, 10/5 @ 30% O2. BP has been stable. Left mastectomy. Left lung drainage present with dressing, clean dry and intact. Date on dressing 05/29. Dry dressing on right side with no drainage. Abd is soft, distended with mass/bulge on upper right side, non tender. 1+ bilateral leg edema present. Pending admit order. Pt is aware of plan of care.
[2025-05-30 07:30] LABS: Resp Syncy Virus RNA Qual PCR NEGATIVE (Negative); SARS COV2 PCR INHOUSE NEGATIVE (Negative)
[2025-05-30] MEDS: Albuterol Sulfate 5 MG, Albuterol/Iprat 2.5/0.5MG 3 ML 3 ML INHALE ×2 (08:10→10:50)
--- NOTE | 2025-05-30 09:45 | PHA.MEDREC ---
Pharmacy Consult ? Medication Reconciliation Pharmacy has completed the medication reconciliation. Patient reported daughter knows medications best. Reached out the daughter who reported all medications are the same as last time she was. I was going to utilize claim and discharge summary until I noticed that losartan is not on her home list but is constantly being filled by [facility] who packs medications in box. I contacted [facility] for an updated list. Losartan is still on the list. Daughter reports patient is not taking the medication, however when I showed her the list said Losartan Potassium, she thought it was potassium so patient has been receiving medication. Patient has documented allergy to losartan causing angioedema. ICU bindery operator Dr Jaime is aware. I left the medication unconfirmed in the home list as she has been taking it even though she should not be. Daughter report patient taking Lantus 28 units daily and Insulin Lispro 20 unit TIDAC, with sliding scale. Daughter reports she has been taking Oxycodone-APAP as needed but needs a new refill. Patient reports doing Nystatin when she remembers. Fela Kunz, PharmD
[2025-05-30] MEDS: dexmedeTOMIDine HCL/NS 400 MCG/100 ML PLAST..BAG 22.68 MCG IVCONT (11:32)
[2025-05-30] MEDS: OLANZapine 10 MG VIAL IM (12:39)
[2025-05-30 14:00] LABS: Glucose, Whole Blood 396 mg/dL (60-115)
[2025-05-30] MEDS: Insulin Glargine,Hum.rec.anlog 100 UNIT/ML 10 ML VIAL 28 UNIT SUBCUT (14:02)
[2025-05-30] MEDS: Albuterol/Iprat 2.5/0.5MG 3 ML AMPUL.NEB INHALE ×2 (15:23→19:18)
--- NOTE | 2025-05-30 15:41 | PM.CCHP ---
History of Present Illness Date of Service: 05/30/25 Chief Complaint: Shortness of breath 65 years old lady with past medical history of stage IV breast cancer with malignant pleural effusions status post PleurX catheter placement on the left, chronic hypoxic respiratory failure due to COPD on 2 L home O2, DM, chronic diastolic CHF, mood disorder, peripheral vascular disease with multiple admissions for shortness of breath due to CHF, postobstructive pneumonia, pleural effusions over the last 2 months presents to the ED with shortness of breath. She received neoadjuvant chemotherapy with TCHP for 6 cycles followed by left simple mastectomy in November 2022. She received letrozole and Enhertu in the adjuvant setting between January 2023 until September 2023. After 11 cycles and Enhertu was stopped because of significant peripheral neuropathy. She has been maintained on letrozole. She had a left-sided PleurX catheter placed on 05/06/2025 which usually drained around 300-500 cc but 10 days ago it drained 200 cc and since then it has stopped draining. She also has a right-sided pleural effusion, it was tried to do a right side PleurX catheter last time but there was not enough fluid so was differed. Today she presents to the ED with acute onset shortness of breath, present at rest, exacerbated by activity, no relieving factors, placed on BiPAP support and could not come off of BiPAP so MICU was consulted for admission. Review of Systems Review of Systems: Could not get a detailed ROS due to clinical status PMFSH Past Medical History Medical History Stenosis of left subclavian artery Maculopapular rash, localized Recurrent pleural effusion Malignant pleural effusion Generalized anxiety disorder TIA (transient ischemic attack) (~12/2024) Recent bereavement Environmental and seasonal allergies HLD (hyperlipidemia) Multinodular goiter Peripheral neuropathy History of short term memory loss Port-A-Cath in place Smoker Family history of prostate cancer in father Leg swelling Shortness of breath Effusion of left knee Weakness Fall Thyroid nodule Adrenal adenoma Vision changes Diabetes History of palpitations History of unsteady gait Low back pain Arthritis Mild heartburn Hx of renal calculi Vaginal yeast infection Encounter to discuss test results 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 Brother No problems noted. Daughter No problems noted. Surgical History Surgical History Hx of colonoscopy H/O total mastectomy of left breast (12/21/22) History of biopsy History of endometrial ablation Hx of tubal ligation History of tonsillectomy History of appendectomy History of cholecystectomy History of bladder surgery History of left knee replacement Social History Social History Household Members: Children Household Members Other:: Daughter Housing: House Are you a primary aged or disabled care worker to a significant other at home: No Do you presently have visiting nurse or other home services: No 75 years or older and lives alone: No Alcohol intake: current Alcohol intake frequency: holidays/special occasions only Comment: pt rings appropriately Patient Tobacco Use Status: Former Tobacco user Tobacco use type: Cigarette Cigarette Packs Per Day: 1 Years Smoked: 40, 1 pack a day e-Cigarette/Vaping Use: Never Used Second Hand Smoke Exposure: No Advance Directives Date on File: 04/26/25 service: No Current occupational status: disabled Cognitive needs: No Hearing needs: No Vision needs: Yes Meds Allergies Allergy/AdvReac Type Severity Reaction Status Date / Time diclofenac (From Voltaren) Allergy Severe enlarged Verified 05/30/25 06:02 liver lisinopril (From Zestril) Allergy Severe Angioedema Verified 05/30/25 06:02 losartan Allergy Severe Angioedema Verified 05/30/25 06:02 omeprazole Allergy Intermediate elevated Verified 05/30/25 06:02 blood pressure Penicillins (PENICILLINS) Allergy Intermediate Facial Verified 05/30/25 06:02 Swelling oxybutynin (Oxybutynin) AdvReac Severe body Verified 05/30/25 06:02 twitching gabapentin AdvReac Intermediate Hypertensio Verified 05/30/25 06:02 n metformin AdvReac Intermediate Diarrhea Verified 05/30/25 06:02 duloxetine AdvReac Intermediate tachycardia Uncoded 05/30/25 06:02 Active Medications: Current Medications Albuterol/Ipratropium (Albuterol/Iprat 2.5/0.5mg 3 Ml Ampul.Neb) 3 ml INHALE RQ4H WHILE AWAKE [facility] Last Admin: 05/30/25 15:23 Dose: 3 ml Aspirin (Aspirin Enteric Coated 81 Mg Tablet.Dr) 81 mg PO DAILY [facility] Last Admin: 05/30/25 13:45 Dose: Not Given Atorvastatin Calcium (Atorvastatin Calcium 80 Mg Tablet) 80 mg PO DAILY [facility] Last Admin: 05/30/25 13:45 Dose: Not Given Dextrose (Dextrose 50 % 25 Gm/50 Ml Syringe) 25 gm IVPUSH Q15M PRN; Protocol PRN Reason: per Hypoglycemia Standing Ord. Enoxaparin Sodium (Enoxaparin Sodium 40 Mg/0.4 Ml Syringe) 40 mg SUBCUT Q24H [facility] Last Admin: 05/30/25 11:28 Dose: 40 mg Famotidine (Famotidine/Pf 20 Mg/2 Ml Vial) 20 mg IVPUSH BID [facility] Last Admin: 05/30/25 11:29 Dose: 20 mg Glucose (Glucose Gel 15 Gm Gel..Gram.) 15 gm PO Q15M PRN; Protocol PRN Reason: per Hypoglycemia Standing Ord. Dexmedetomidine HCl (Precedex) 400 mcg in 100 mls @ 0 mls/hr IVCONT .Q0M [facility]; Protocol Last Titration: 05/30/25 13:15 Dose: 0 mcg/kg/hr, 0 mls/hr Levofloxacin (Levaquin) 750 mg in 150 mls @ 100 mls/hr IV Q24H [facility] Last Infusion: 05/30/25 15:40 Dose: Infused Alteplase, Recombinant 10 mg/ (Sodium Chloride) 100 mls @ 100 mls/hr INTRAPLEUR ONCE ONE Stop: 05/30/25 16:03 Insulin Glargine (Insulin Glargine,Hum.Rec.Anlog 100 Unit/Ml 10 Ml Vial) 28 unit SUBCUT DAILY [facility] Last Admin: 05/30/25 14:02 Dose: 28 unit Insulin Human Lispro (Insulin Lispro 100 Unit/Ml 3 Ml Vial) 0 unit SUBCUT QIDACHS [facility]; Protocol Stop: 05/31/25 13:13 Methylprednisolone Sodium Succinate (Methylprednisolone Sod Succ 40 Mg Vial) 40 mg IVPUSH Q8H [facility] Last Admin: 05/30/25 14:02 Dose: 40 mg Paroxetine HCl (Paroxetine Hcl 20 Mg Tablet) 20 mg PO DAILY [facility] Last Admin: 05/30/25 13:45 Dose: Not Given Ropinirole HCl (Ropinirole Hcl 1 Mg Tablet) 1 mg PO BID [facility] Last Admin: 05/30/25 13:45 Dose: Not Given Home Medications ?Medication ?Instructions ?Recorded ?Confirmed ?Last Taken ?Type acetaminophen 325 mg capsule 325 mg PO QID PRN Pain 09/01/22 05/30/25 Unknown History cyanocobalamin (vitamin B-12) 1,000 mcg PO DAILY 09/04/22 05/30/25 05/22/25 History 1,000 mcg tablet ferrous sulfate 325 mg (65 mg 325 mg PO FR@0900 08/09/24 05/30/25 05/17/25 History iron) tablet (Iron (ferrous sulfate)) zinc gluconate 50 mg tablet 50 mg PO DAILY 08/09/24 05/30/25 05/22/25 History atorvastatin 80 mg tablet 80 mg PO DAILY 04/03/25 05/30/25 05/22/25 History cholecalciferol (vitamin D3) 50 50 mcg PO Q48H 04/03/25 05/30/25 05/22/25 History mcg (2,000 unit) capsule clotrimazole 1 % topical cream 1 appl topical BID Fungal 04/03/25 05/30/25 Unknown History Infections insulin aspart U-100 100 unit/mL 20 unit subcut TIDAC 04/03/25 05/30/25 05/22/25 History (3 mL) subcutaneous pen (Novolog FlexPen U-100 Insulin aspart) ondansetron 4 mg disintegrating 4 mg PO Q8H PRN Nausea And Vomiting 04/03/25 05/30/25 Unknown History tablet sennosides 8.6 mg tablet (Senokot) 8.6 mg PO BID PRN Constipation 04/03/25 05/30/25 04/02/25 History solifenacin 5 mg tablet (Vesicare) 5 mg PO BEDTIME 04/03/25 05/30/25 05/21/25 History triamcinolone acetonide 0.1 % 1 appl topical DAILY PRN Itchy/Dry 04/03/25 05/30/25 Unknown History topical cream Skin dulaglutide 1.5 mg/0.5 mL 1.5 mg subcut FR 04/22/25 05/30/25 05/17/25 History subcutaneous pen injector (Trulicity) furosemide 40 mg tablet 40 mg PO DAILY 05/22/25 05/30/25 05/22/25 History hydrochlorothiazide 12.5 mg tablet 12.5 mg PO DAILY 05/30/25 05/30/25 Unknown History losartan 25 mg tablet 25 mg PO DAILY 05/30/25 Unknown History Physical Exam Vital Signs: Vital Signs: Last Vital Signs Temp 98.5 F 05/30/25 12:00 Pulse 103 H 05/30/25 15:26 Resp 34 H 05/30/25 15:26 BP 119/82 05/30/25 14:58 Pulse Ox 96 05/30/25 14:58 O2 Del Method BiPAP 05/30/25 14:58 O2 Flow Rate 30 05/30/25 10:39 FiO2 30 05/30/25 14:58 BMI result Body Mass Index 29.5 General: acute distress, ill appearing and tired appearing Nutritional Appearance: well nourished and overweight Eyes: appearance normal, both eyes and all related structures; Alignment and Position: alignment normal and position normal Neck: No lymphadenopathy, no thyromegaly Resp: bilateral air entry equal, occasional added sounds present Cardio: Regular rate, regular rhythm; Heart sounds: S1 normal heart sound present and S2 normal heart sound present GI: soft, nontender, no guarding, no hepatosplenomegaly : bladder normal to inspection, bladder normal to palpation, no renal angle tenderness Skin: no rashes or lesions noted and elasticity normal Neuro: oriented to person, oriented to place, oriented to time and moves all extremities Results Labs 05/30/25 01:25 05/30/25 01:12 Labs: Laboratory Results - last 24 hr 05/30/25 05/30/25 05/30/25 01:12 01:25 04:35 MCV 92.3 MCH 30.5 MCHC 33.0 RDW 15.0 Plt Count 355 D MPV 9.8 Immature Gran % (Auto) 3.0 H Neut % (Auto) 60.9 Lymph % (Auto) 21.7 Brantley % (Auto) 8.8 Eos % (Auto) 4.7 H Baso % (Auto) 0.9 Lymph # (Auto) 3.4 Brantley # (Auto) 1.4 H Eos # (Auto) 0.7 H Baso # (Auto) 0.2 Abs Immat Gran (auto) 0.47 H Absolute Neuts (auto) 9.6 H Absolute Nucleated RBC 0.090 H Nucleated RBC % (auto) 0.6 H Hold Blue Top SEE NOTE VBG pH 7.36 VBG pCO2 46 VBG pO2 88 VBG HCO3 26 VBG O2 Saturation 95.0 VBG Base Excess 0.5 Anion Gap 17 Estim Creat Clear Calc 86.3 Estimated GFR > 60 POC Glucose Random Glucose 271 H Lactic Acid 1.5 Calcium 9.4 Phosphorus Total Bilirubin 0.3 Direct Bilirubin 0.1 AST 33 H ALT 23 Alkaline Phosphatase 130 H B-Natriuretic Peptide 21 Total Protein 7.0 Albumin 3.9 Influenza Type A (PCR) Influenza Type B (PCR) RSV RNA Qual (PCR) SARS-CoV-2 RNA (RT-PCR) 05/30/25 05/30/25 05/30/25 06:47 09:29 13:51 MCV MCH MCHC RDW Plt Count MPV Immature Gran % (Auto) Neut % (Auto) Lymph % (Auto) Brantley % (Auto) Eos % (Auto) Baso % (Auto) Lymph # (Auto) Brantley # (Auto) Eos # (Auto) Baso # (Auto) Abs Immat Gran (auto) Absolute Neuts (auto) Absolute Nucleated RBC Nucleated RBC % (auto) Hold Blue Top VBG pH VBG pCO2 VBG pO2 VBG HCO3 VBG O2 Saturation VBG Base Excess Anion Gap Estim Creat Clear Calc Estimated GFR POC Glucose 396 H* Random Glucose Lactic Acid Calcium Phosphorus 5.2 H Total Bilirubin Direct Bilirubin AST ALT Alkaline Phosphatase B-Natriuretic Peptide Total Protein Albumin Influenza Type A (PCR) NEGATIVE Influenza Type B (PCR) NEGATIVE RSV RNA Qual (PCR) NEGATIVE SARS-CoV-2 RNA (RT-PCR) NEGATIVE Imaging Radiologist's Impressions: Impressions Chest X-Ray 05/30/25 07:28 IMPRESSION: 1. Stable right chest port and left basilar Pleurx catheter. 2. Slightly enlarging bilateral pleural effusions, small to moderate-sized in volume, with associated bibasilar consolidation/passive atelectasis present. 3. No perceptible pneumothorax. Electronically signed by: Inocencio Chambers MD 05/30/2025 08:51 AM EDT Assessment and Plan (1) Hypertension: Qualifiers: Hypertension type: primary hypertension Qualified Code(s): I10 - Essential (primary) hypertension Status: Acute (2) Acute exacerbation of CHF (congestive heart failure): Status: Acute (3) HLD (hyperlipidemia): Qualifiers: Hyperlipidemia type: mixed hyperlipidemia Qualified Code(s): E78.2 - Mixed hyperlipidemia Status: Acute (4) Pleural effusion: Status: Acute (5) COPD (chronic obstructive pulmonary disease): Status: Acute Plan Neuro: Acute encephalopathy possibly due to metabolic encephalopathy On Precedex for anxiolysis Cardiac: Obstructive Shock: Possibly secondary to bilateral massive pleural effusions We will start the patient on Levophed support, titrate Levophed to keep map above 65 mm Hg Respiratory: Acute on Chronic hypoxemic respiratory failure due to bilateral malignant pleural effusions evidenced by cytology. Left-sided PleurX catheter not functional, we will place tPA and dornase to the catheter and then we will drain the fluids which might improve her symptoms. We will hold off on doing a thoracentesis on the right in order to prep her for PleurX catheter placement tomorrow. Currently on BiPAP support, FiO2 30%, 10/26 GI: We will keep her NPO Renal: Renal function normal Heme: Chronic anemia, closely monitor H&H, transfuse for hemoglobin less than 7 grams/deciliter Stage IV metastatic breast cancer: Status post chemotherapy followed by left-sided mastectomy 2 years ago, currently on letrozole. Has bilateral malignant pleural effusion evidenced by cytology of pleural fluid. Diabetes mellitus: Blood sugars not under control Started on her home dose of Lantus 28 units nightly. She is also on 20 units t.i.d. of lispro but we will hold off as she is NPO. Sliding scale insulin as needed. Infectious disease: We will send pancultures We will start her on empiric levofloxacin given her underlying malignancy and recurrent hospitalization Musculoskeletal: Decubitus ulcer prevention protocol Lines: Peripheral Prophylaxis: Lovenox, pantoprazole Patient signs and symptoms (shortness of breath and low blood pressures) are due to worsening malignant pleural effusion with underlying malignancy. Initial lactate normal. No concerns for sepsis at this time.
[2025-05-30 16:32] LABS: Glucose, Whole Blood 382 mg/dL (60-115)
[2025-05-30] MEDS: Dornase Alfa 5 MG in 0.9 % Sodium Chloride 25 ML 200 MG INTRAPLEUR (16:59)
[2025-05-30] MEDS: SODIUM CHLORIDE 0.9% INTRAPLEUR (16:59)
[2025-05-30] MEDS: [UNRECOGNIZED DRUG - OTHER] INTRAPLEUR (16:59)
--- NOTE | 2025-05-30 17:51 | PC.NURSE ---
Assumed care at approx 1315, pt. on bipap, sedated on precedex. SBPs 60s-80s, precedex paused per MD with temporary improvement in BPs,
--- NOTE | 2025-05-30 17:56 | PC.NURSE ---
Assumed care at approx 1315, pt. on bipap, sedated on precedex. SBPs 60s-80s, precedex paused per MD with temporary improvement in BPs. At approx 1545, MAPs sustaining <65, levophed gtt started per JAN. Pt. drowsy but arousable with verbal stimuli, quickly falls back to sleep. A&Ox4, anxious at times but redirectable. SR/St on tele, HR 80s-110s. Tolerating bipap 15/10 30%, LS Dim throughout. Pt. with pleurX catheter to left upper lateral back, MD attempted drainage with no output. Intraplueral medications administered by MD per JAN- plurerX clamped off, per MD will re-attempt draining later tonight. NPO, oral care performed PRN. last BM 7/9 AM per pt. Purewick in place. Q2 repositioning performed. Family at bedside, updated by this RN and MD. Plan of care ongoing.
[2025-05-30 21:06] LABS: Glucose, Whole Blood 282 mg/dL (60-115)
[2025-05-30] MEDS: dexmedeTOMIDine HCL/NS 400 MCG/100 ML PLAST..BAG 27.22 MCG IVCONT (21:59)
[2025-05-31] VITALS (34 sets, daily range): BP systolic 87–130; BP diastolic 42–76; PULSE 80–105; RESP 17–36; TEMP 36.1–36.3; O2SAT 91–97; BMI 32.5; BMI 37.8
[2025-05-31 00:34] LABS: MN% 92.8 %; PMN% 7.2 %; WBC Pleural Fluid 0.850 X10*3/uL
[2025-05-31 01:18] LABS: BF Shift QC OK YES; Lymphocytes Pleural Fluid 65 %; Monocytes Pleural Fluid 10 %; Neutrophils Pleural Fluid 7 %; Other Cells Plerual Fl 18 %
[2025-05-31] MEDS: dexmedeTOMIDine HCL/NS 400 MCG/100 ML PLAST..BAG 18.14 MCG IVCONT ×3 (01:45→12:51)
[2025-05-31 05:37] LABS: MANUAL DIFF FLAG NO
[2025-05-31 05:38] LABS: Hematocrit 33.1 % (37.0-47.0); Hemoglobin 10.8 g/dl (12.0-16.0); Imm Gran Abs Auto 0.71 X10*3/uL (0.00-0.03); Imm Gran Pct Auto 4.2 % (0.0-0.4); Lymphocytes Absolute Auto 1.0 X10*3/uL (1.2-4.9); Mean Corpuscular HGB Conc 32.6 g/dl (31.0-35.0); Mean Corpuscular Hemoglobin 29.6 pg (27.0-33.0); Mean Corpuscular Volume 90.7 fL (80.0-98.0); NRBC Abs Auto 0.020 X10*3/uL (0.0-0.012); NRBC Pct Auto 0.1 /100WBC (0.0-0.2); Platelet Count 335 X10*3/uL (160-400); Red Blood Count 3.65 X10*6/uL (4.20-5.50); White Blood Count 16.9 X10*3/uL (4.8-10.8)
[2025-05-31 05:57] LABS: Alanine Aminotransferase 19 U/L (0-31); Albumin Level 3.7 g/dL (3.5-5.0); Alkaline Phosphatase 99 U/L (39-117); Anion Gap 15 (12-20); Aspartate Amino Transferase 32 U/L (5-31); Blood Urea Nitrogen 34 mg/dL (9-16); Calcium 9.3 mg/dL (8.4-10.2); Carbon Dioxide 24 mmol/L (22-29); Chloride 105 mmol/L (96-108); Creatinine Clr Calc Pharmacy 64.9; Estimated Glomerular Filt Rate 53; Magnesium 2.2 mg/dL (1.6-2.6); Potassium 4.3 mmol/L (3.3-5.1); Sodium 140 mmol/L (135-145); Total Protein 6.4 g/dL (6.5-8.0)
--- NOTE | 2025-05-31 06:13 | PC.NURSE ---
Assumed care 1899 - pt alert and oriented, on bipap - see bipap assessment. Pt anxious at times with increased?work of breathing - precedex gtt and prn morphine administered per JAN with good effect. MAPs > 65, levophed titrated per JAN. SR/ST on tele. Left pleural cath drained by ZEUS Bailey - 250 ml serosanguineous fluid out, cultures sent per order. Pt incontinent of urine x1, purewick in place. Mouth care and hygiene care provided.?
[2025-05-31 07:36] LABS: Glucose, Whole Blood 301 mg/dL (60-115)
[2025-05-31] MEDS: Albuterol/Iprat 2.5/0.5MG 3 ML AMPUL.NEB INHALE ×3 (07:38→19:45)
[2025-05-31 08:01] LABS: MRSA Nasal PCR NEGATIVE (Negative); SA Nasal PCR NEGATIVE (Negative)
[2025-05-31] MEDS: Insulin Glargine,Hum.rec.anlog 100 UNIT/ML 10 ML VIAL 28 UNIT SUBCUT (08:01)
--- NOTE | 2025-05-31 08:58 | P.PNCC_ITS ---
Subjective Subjective Date of Service: 05/31/25 Interval History: Left-sided PleurX drain drained about 150 cc last night We will continue doing tPA and jess Continues to be on BiPAP support Plan for right-sided PleurX catheter placement today Critical Care Time (minutes): 35 Physical Exam 2 Vital Signs: Vital Signs: Last Vital Signs Temp 97.3 F 05/31/25 08:00 Pulse 82 05/31/25 08:00 Resp 20 05/31/25 08:00 BP 104/66 05/31/25 08:00 Pulse Ox 94 05/31/25 08:00 O2 Del Method BiPAP 05/31/25 08:00 O2 Flow Rate 30 05/30/25 10:39 FiO2 30 05/31/25 08:00 BMI result Body Mass Index 32.5 General: Elderly lady appears to be in acute distress, ill appearing and tired appearing Nutritional Appearance: well nourished and overweight Eyes: appearance normal, both eyes and all related structures; Alignment and Position: alignment normal and position normal Neck: No lymphadenopathy, no thyromegaly Resp: bilateral air entry equal, decreased breath sounds in bilateral axillary area, wheeze present Cardio: Regular rate, regular rhythm; Heart sounds: S1 normal heart sound present and S2 normal heart sound present GI: soft, nontender, no guarding, no hepatosplenomegaly : bladder normal to inspection, bladder normal to palpation, no renal angle tenderness Skin: no rashes or lesions noted and elasticity normal Neuro: oriented to person, oriented to place, oriented to time and moves all extremities Objective Data Labs 05/31/25 05:12 05/31/25 05:12 Labs: Laboratory Results - last 24 hr 05/30/25 05/30/25 05/30/25 09:29 13:51 16:27 WBC RBC Hgb Hct MCV MCH MCHC RDW Plt Count MPV Immature Gran % (Auto) Neut % (Auto) Lymph % (Auto) [place] % (Auto) Eos % (Auto) Baso % (Auto) Lymph # (Auto) [place] # (Auto) Eos # (Auto) Baso # (Auto) Abs Immat Gran (auto) Absolute Neuts (auto) Absolute Nucleated RBC Nucleated RBC % (auto) Sodium Potassium Chloride Carbon Dioxide Anion Gap BUN Creatinine Estim Creat Clear Calc Estimated GFR POC Glucose 396 H* 382 H* Random Glucose Calcium Phosphorus 5.2 H Magnesium Total Bilirubin AST ALT Alkaline Phosphatase Total Protein Albumin Pleural WBC Pleural RBC Pleural Neutrophils Pleural Lymphocytes Pleural Monocytes Pleural Other Cells Nasal Screen MRSA (PCR) Nasal S. aureus Screen Nasal MRSA/S.aureus Interp 05/30/25 05/30/25 05/31/25 17:15 21:03 00:12 WBC RBC Hgb Hct MCV MCH MCHC RDW Plt Count MPV Immature Gran % (Auto) Neut % (Auto) Lymph % (Auto) [place] % (Auto) Eos % (Auto) Baso % (Auto) Lymph # (Auto) [place] # (Auto) Eos # (Auto) Baso # (Auto) Abs Immat Gran (auto) Absolute Neuts (auto) Absolute Nucleated RBC Nucleated RBC % (auto) Sodium Potassium Chloride Carbon Dioxide Anion Gap BUN Creatinine Estim Creat Clear Calc Estimated GFR POC Glucose 282 H Random Glucose Calcium Phosphorus Magnesium Total Bilirubin AST ALT Alkaline Phosphatase Total Protein Albumin Pleural WBC 0.850 Pleural RBC 0.017 Pleural Neutrophils 7 Pleural Lymphocytes 65 Pleural Monocytes 10 Pleural Other Cells 18 Nasal Screen MRSA (PCR) NEGATIVE Nasal S. aureus Screen NEGATIVE Nasal MRSA/S.aureus Interp SEE NOTE 05/31/25 05/31/25 05:12 07:29 WBC 16.9 H RBC 3.65 L Hgb 10.8 L Hct 33.1 L MCV 90.7 MCH 29.6 MCHC 32.6 RDW 15.1 Plt Count 335 MPV 9.9 Immature Gran % (Auto) 4.2 H Neut % (Auto) 82.2 H Lymph % (Auto) 6.2 L [place] % (Auto) 7.0 Eos % (Auto) 0.0 Baso % (Auto) 0.4 Lymph # (Auto) 1.0 L [place] # (Auto) 1.2 Eos # (Auto) 0.0 Baso # (Auto) 0.1 Abs Immat Gran (auto) 0.71 H Absolute Neuts (auto) 13.9 H Absolute Nucleated RBC 0.020 H Nucleated RBC % (auto) 0.1 Sodium 140 Potassium 4.3 Chloride 105 Carbon Dioxide 24 Anion Gap 15 BUN 34 H Creatinine 1.05 Estim Creat Clear Calc 64.9 Estimated GFR 53 POC Glucose 301 H Random Glucose 286 H Calcium 9.3 Phosphorus Magnesium 2.2 Total Bilirubin 0.3 AST 32 H ALT 19 Alkaline Phosphatase 99 Total Protein 6.4 L Albumin 3.7 Pleural WBC Pleural RBC Pleural Neutrophils Pleural Lymphocytes Pleural Monocytes Pleural Other Cells Nasal Screen MRSA (PCR) Nasal S. aureus Screen Nasal MRSA/S.aureus Interp Microbiology Microbiology Results: Microbiology 05/30/25 04:35 Blood - Venous Blood Culture - Preliminary No growth after 24 hours. 05/30/25 01:25 Blood - Venous Blood Culture - Preliminary No growth after 24 hours. Progress Note: A&P Assessment and plan (1) Acute exacerbation of CHF (congestive heart failure): Status: Acute (2) COPD (chronic obstructive pulmonary disease): Status: Acute (3) Pleural effusion: Status: Acute (4) Acute hypoxemic respiratory failure: Status: Acute Plan Neuro: Acute encephalopathy possibly due to metabolic encephalopathy On Precedex for anxiolysis Cardiac: Obstructive Shock: Possibly secondary to bilateral massive pleural effusions on Levophed support, titrate Levophed to keep map above 65 mm Hg Respiratory: Acute on Chronic hypoxemic respiratory failure due to bilateral malignant pleural effusions evidenced by cytology. Left-sided PleurX catheter not functional, received tPA and dornase through the catheter drained about 100cc of fluid and 100cc of medications last night. We will hold off on doing a thoracentesis on the right in order to prep her for PleurX catheter placement which is planned for this afternoon. Possibly will need a left sided PleurX as the previous drain is not draining enough Currently on BiPAP support, FiO2 30%, 10/26 GI: We will keep her NPO Renal: Renal function normal Heme: Chronic anemia, closely monitor H&H, transfuse for hemoglobin less than 7 grams/deciliter Stage IV metastatic breast cancer: Status post chemotherapy followed by left- sided mastectomy 2 years ago, currently on letrozole. Has bilateral malignant pleural effusion evidenced by cytology of pleural fluid. Diabetes mellitus: Blood sugars not under control Started on her home dose of Lantus 28 units nightly. She is also on 20 units t.i.d. of lispro but we will hold off as she is NPO. Sliding scale insulin as needed. Infectious disease: pending pancultures on empiric levofloxacin given her underlying malignancy and recurrent hospitalization Musculoskeletal: Decubitus ulcer prevention protocol Lines: Peripheral Prophylaxis: Lovenox held for procedure today, pantoprazole Quality Stroke Does the patient have a stroke diagnosis?: No VTE Prior VTE?: No VTE Risk Level:: Medical - moderate - high VTE Device Contraindication: N/A - Device Ordered VTE Drug Contraindication: N/A - Med Ordered
--- NOTE | 2025-05-31 10:19 | MHC.CM.PN ---
Met with pt and dtr/HCP [facility]: pt resides w/[facility] and has services w/[facility] for CT management/skilled RN visits, [facility] for CM services and meals delivered (14/week) Pt also has [employer] for Home O2 and CT supplies. HCP on file/verified - IMM in chart. Pt would like to return to home w/existing services - may need BLS transport. CM to follow
[2025-05-31 10:37] LABS: Chlamydia pneumoniae PCR Not Detected (Not Detect.); Coronavirus 229E PCR Not Detected (Not Detect.); Coronavirus HKU1 PCR Not Detected (Not Detect.); Coronavirus NL63 PCR Not Detected (Not Detect.); Coronavirus OC43 PCR Not Detected (Not Detect.); RSV PCR Not Detected (Not Detect.); Rhino/Enterovirus PCR Not Detected (Not Detect.)
[2025-05-31 10:40] LABS: Influenza A H1 PCR Not Detected (Not Detect.); Influenza A H1-2009 PCR Not Detected (Not Detect.); Influenza A H3 PCR Not Detected (Not Detect.); SARS-CoV-2 PCR Not Detected (Not Detect.)
[2025-05-31 11:19] LABS: Glucose, Whole Blood 215 mg/dL (60-115)
[2025-05-31] MEDS: [UNRECOGNIZED DRUG - OTHER] INTRAPLEUR (11:53)
[2025-05-31] MEDS: SODIUM CHLORIDE 0.9% INTRAPLEUR (11:53)
[2025-05-31] MEDS: Dornase Alfa 5 MG in 0.9 % Sodium Chloride 25 ML 1000 MG INTRAPLEUR (11:54)
--- NOTE | 2025-05-31 13:16 | MHC.CLN ---
NUTRITION NPO FOR PROCEDURE. RECOMMEND DIABETIC 2000 KCAL DIET WHEN ABLE TO ADVANCE DIET. NO SKIN ISSUES NOTED. FOLLOW FOR DIET ADVANCEMENT AND PO INTAKE. SEE CLINICAL NUTRITION ASSESSMENT 05/31/25.
[2025-05-31] MEDS: Lidocaine HCl 1 % MPF 5 ML VIAL SUBCUT (16:17)
[2025-05-31 16:33] LABS: Glucose, Whole Blood 167 mg/dL (60-115)
--- NOTE | 2025-05-31 19:17 | PC.NURSE ---
Assumed care at 0700- pt. on bipap 15/10 30%, tolerating well with precedex gtt per JAN. Bipap removed at approx 0930, pt. placed on 2L oxymask. Pt. A&Ox4 but confused and forgetful, with intermittent anxiety but responsive to verbal support and redirection. SR/ST on tele, HR 70s-90s, up to 120s with anxiety. Levophed gtt titrated off per JAN. at approx 1400 IR at bedside to place Right posterior chest tube- 8.5 Fr. pigtail catheter placed to gravity/water seal, with 1050cc serosanguineous output this shift. Left pluerX catheter drained by MD for 750cc serosanguineous output. Pt. stating decreased SOB, changed to 2L abby JAUREGUI. Family at bedside, updated by this RN and MD. Plan of care ongoing.
[2025-05-31 20:31] LABS: Glucose, Whole Blood 214 mg/dL (60-115)
[2025-05-31] MEDS: Alteplase Cath Clear 10 MG, Dornase Alfa 5 MG, Lidocaine HCl 2 % MPF 10 ML in 0.9 % Sod... 50 MG INTRAPLEUR (22:12)
[2025-06-01] VITALS (29 sets, daily range): BP systolic 104–139; BP diastolic 37–78; PULSE 98–119; RESP 18–27; TEMP 36.2–36.9; O2SAT 91–100; BMI 39.8
[2025-06-01 05:39] LABS: VBG HCO3 23 mmol/L (22-26); VBG O2 % Saturation 72.0 %
[2025-06-01 05:57] LABS: MANUAL DIFF FLAG NO
[2025-06-01 05:59] LABS: Venous Blood Gas Refer to POC result
[2025-06-01 06:00] LABS: Hematocrit 36.1 % (37.0-47.0); Hemoglobin 11.7 g/dl (12.0-16.0); Imm Gran Abs Auto 0.41 X10*3/uL (0.00-0.03); Imm Gran Pct Auto 2.5 % (0.0-0.4); Lymphocytes Absolute Auto 0.9 X10*3/uL (1.2-4.9); Mean Corpuscular HGB Conc 32.4 g/dl (31.0-35.0); Mean Corpuscular Hemoglobin 30.1 pg (27.0-33.0); Mean Corpuscular Volume 92.8 fL (80.0-98.0); NRBC Abs Auto 0.030 X10*3/uL (0.0-0.012); NRBC Pct Auto 0.2 /100WBC (0.0-0.2); Platelet Count 324 X10*3/uL (160-400); Red Blood Count 3.89 X10*6/uL (4.20-5.50); White Blood Count 16.4 X10*3/uL (4.8-10.8)
[2025-06-01 06:17] LABS: Alanine Aminotransferase 21 U/L (0-31); Albumin Level 3.7 g/dL (3.5-5.0); Alkaline Phosphatase 104 U/L (39-117); Anion Gap 17 (12-20); Aspartate Amino Transferase 35 U/L (5-31); Blood Urea Nitrogen 40 mg/dL (9-16); Calcium 9.2 mg/dL (8.4-10.2); Carbon Dioxide 21 mmol/L (22-29); Chloride 105 mmol/L (96-108); Creatinine Clr Calc Pharmacy 71.0; Estimated Glomerular Filt Rate > 60; Magnesium 2.5 mg/dL (1.6-2.6); Potassium 4.0 mmol/L (3.3-5.1); Sodium 139 mmol/L (135-145); Total Protein 6.5 g/dL (6.5-8.0)
--- NOTE | 2025-06-01 06:38 | PC.NURSE ---
Critical Care Nursing Note? Assumed care of the patient at 1900. Patient alert and oriented, anxious at times, patient easily redirected. Left Pleurex catheter drained for 250 ml serosanguineous fluid at 0030, patient tolerated well. Right chest tube with 150ml serosanguineous fluid total for shift.? Purewick catheter maintained, 2 episodes of urine incontinence. Report given to oncoming shift.
[2025-06-01 07:33] LABS: Glucose, Whole Blood 285 mg/dL (60-115)
[2025-06-01] MEDS: Insulin Glargine,Hum.rec.anlog 100 UNIT/ML 10 ML VIAL 28 UNIT SUBCUT (07:46)
[2025-06-01] MEDS: Aspirin Enteric Coated 81 MG TABLET.DR PO (07:48)
[2025-06-01] MEDS: Albuterol/Iprat 2.5/0.5MG 3 ML AMPUL.NEB INHALE ×4 (07:49→21:29)
[2025-06-01 11:35] LABS: Glucose, Whole Blood 317 mg/dL (60-115)
--- NOTE | 2025-06-01 12:13 | P.PNCC_ITS ---
Subjective Subjective Date of Service: 06/01/25 Interval History: Shock resolved after right-sided thoracentesis yesterday Breathing status has improved significantly when compared to yesterday currently stable on nasal cannula Critical Care Time (minutes): 35 Physical Exam 2 Vital Signs: Vital Signs: Last Vital Signs Temp 98.0 F 06/01/25 12:00 Pulse 119 H 06/01/25 12:00 Resp 24 H 06/01/25 12:00 BP 133/66 06/01/25 12:00 Pulse Ox 93 06/01/25 12:00 O2 Del Method Nasal Cannula 06/01/25 12:00 O2 Flow Rate 2 06/01/25 12:00 FiO2 30 05/31/25 16:55 BMI result Body Mass Index 39.8 General: Elderly lady comfortable sitting in the bed and eating, her distress seems to be improved significantly Nutritional Appearance: well nourished and overweight Eyes: appearance normal, both eyes and all related structures; Alignment and Position: alignment normal and position normal Neck: No lymphadenopathy, no thyromegaly Resp: bilateral air entry equal, decreased breath sounds in the lung bases Cardio: Regular rate, regular rhythm; Heart sounds: S1 normal heart sound present and S2 normal heart sound present GI: soft, nontender, no guarding, no hepatosplenomegaly : bladder normal to inspection, bladder normal to palpation, no renal angle tenderness Skin: no rashes or lesions noted and elasticity normal Neuro: oriented to person, oriented to place, oriented to time and moves all extremities Objective Data Labs 06/01/25 05:29 06/01/25 05:29 Labs: Laboratory Results - last 24 hr 05/31/25 05/31/25 06/01/25 16:25 20:28 05:29 WBC 16.4 H RBC 3.89 L Hgb 11.7 L Hct 36.1 L MCV 92.8 MCH 30.1 MCHC 32.4 RDW 15.6 Plt Count 324 MPV 9.7 Immature Gran % (Auto) 2.5 H Neut % (Auto) 84.1 H Lymph % (Auto) 5.6 L [place] % (Auto) 7.6 Eos % (Auto) 0.0 Baso % (Auto) 0.2 Lymph # (Auto) 0.9 L [place] # (Auto) 1.3 H Eos # (Auto) 0.0 Baso # (Auto) 0.0 Abs Immat Gran (auto) 0.41 H Absolute Neuts (auto) 13.8 H Absolute Nucleated RBC 0.030 H Nucleated RBC % (auto) 0.2 VBG pH VBG pCO2 VBG pO2 VBG HCO3 VBG O2 Saturation VBG Base Excess Sodium 139 Potassium 4.0 Chloride 105 Carbon Dioxide 21 L Anion Gap 17 BUN 40 H Creatinine 0.92 Estim Creat Clear Calc 71.0 Estimated GFR > 60 POC Glucose 167 H 214 H Random Glucose 227 H Calcium 9.2 Phosphorus 4.5 Magnesium 2.5 Total Bilirubin 0.3 AST 35 H ALT 21 Alkaline Phosphatase 104 Total Protein 6.5 Albumin 3.7 06/01/25 06/01/25 06/01/25 05:34 07: 11:21 WBC RBC Hgb Hct MCV MCH MCHC RDW Plt Count MPV Immature Gran % (Auto) Neut % (Auto) Lymph % (Auto) [place] % (Auto) Eos % (Auto) Baso % (Auto) Lymph # (Auto) [place] # (Auto) Eos # (Auto) Baso # (Auto) Abs Immat Gran (auto) Absolute Neuts (auto) Absolute Nucleated RBC Nucleated RBC % (auto) VBG pH 7.43 VBG pCO2 34 VBG pO2 49 VBG HCO3 23 VBG O2 Saturation 72.0 VBG Base Excess -0.4 Sodium Potassium Chloride Carbon Dioxide Anion Gap BUN Creatinine Estim Creat Clear Calc Estimated GFR POC Glucose 285 H 317 H Random Glucose Calcium Phosphorus Magnesium Total Bilirubin AST ALT Alkaline Phosphatase Total Protein Albumin Microbiology Microbiology Results: Microbiology 05/30/25 04:35 Blood - Venous Blood Culture - Preliminary No growth after 48 hours. 05/30/25 01:25 Blood - Venous Blood Culture - Preliminary No growth after 48 hours. 05/31/25 00:12 Pleura Gram Stain - Final 05/31/25 00:12 Pleura Routine Culture - Preliminary No growth to date. 05/31/25 00:12 Pleura Anaerobic Culture - Preliminary No growth to date. Progress Note: A&P Assessment and plan (1) Acute hypoxemic respiratory failure: Status: Acute (2) COPD (chronic obstructive pulmonary disease): Status: Acute (3) Pleural effusion: Status: Acute Plan Respiratory: Acute on Chronic hypoxemic respiratory failure due to bilateral malignant pleural effusions evidenced by cytology. Left-sided PleurX catheter initially not functional, now improving with tPA and dornase through the catheter b.i.d.. Yesterday I could drained about 800 cc after tPA and dornase. Right-sided chest tube placed by IR on 05/31/2025, drained about 1200 cc so far Currently off BiPAP on nasal cannula oxygen at 2 L/min On Solu-Medrol 40 Q8, we will decrease to p.o. prednisone 40 mg daily as her sugars are high Cardiac: Shock resolved after thoracentesis on the right GI: On oral feeds Renal: Renal function normal Heme: Chronic anemia, closely monitor H&H, transfuse for hemoglobin less than 7 grams/deciliter Stage IV metastatic breast cancer: Status post chemotherapy followed by left- sided mastectomy 2 years ago, currently on letrozole. Has bilateral malignant pleural effusion evidenced by cytology of pleural fluid. Diabetes mellitus: Blood sugars not under control Started on her home dose of Lantus 28 units nightly. She is also on 20 units t.i.d. of lispro at home, we will increase the dose of lantus to 40U daily Sliding scale insulin as needed. Infectious disease: pending pancultures on empiric levofloxacin given her underlying malignancy and recurrent hospitalization Prophylaxis: Lovenox, omeprazole Quality Stroke Does the patient have a stroke diagnosis?: No VTE Prior VTE?: No VTE Risk Level:: Medical - moderate - high VTE Device Contraindication: N/A - Device Ordered VTE Drug Contraindication: N/A - Med Ordered
[2025-06-01] MEDS: Alteplase Cath Clear 10 MG, Dornase Alfa 5 MG, Lidocaine HCl 2 % MPF 10 ML in 0.9 % Sod... 500 MG INTRAPLEUR (12:33)
[2025-06-01] MEDS: Insulin Glargine,Hum.rec.anlog 100 UNIT/ML 10 ML VIAL 12 UNIT SUBCUT (14:10)
[2025-06-01 16:40] LABS: Glucose, Whole Blood 296 mg/dL (60-115)
[2025-06-01 21:22] LABS: Glucose, Whole Blood 235 mg/dL (60-115)
[2025-06-01] MEDS: Alteplase Cath Clear 10 MG, Dornase Alfa 5 MG, Lidocaine HCl 2 % MPF 10 ML in 0.9 % Sod... 50 MG INTRAPLEUR (22:56)
[2025-06-02] VITALS (28 sets, daily range): BP systolic 95–145; BP diastolic 33–72; PULSE 91–136; RESP 15–26; TEMP 36.1–36.9; O2SAT 24–100; BMI 35.3
[2025-06-02 05:19] LABS: VBG HCO3 28 mmol/L (22-26); VBG O2 % Saturation 58.0 %
[2025-06-02 05:22] LABS: Venous Blood Gas Refer to POC result
[2025-06-02 05:38] LABS: Hematocrit 35.3 % (37.0-47.0); Hemoglobin 11.9 g/dl (12.0-16.0); Imm Gran Abs Auto 0.64 X10*3/uL (0.00-0.03); Imm Gran Pct Auto 4.8 % (0.0-0.4); Lymphocytes Absolute Auto 2.4 X10*3/uL (1.2-4.9); MANUAL DIFF FLAG SCAN; Mean Corpuscular HGB Conc 33.7 g/dl (31.0-35.0); Mean Corpuscular Hemoglobin 30.4 pg (27.0-33.0); Mean Corpuscular Volume 90.1 fL (80.0-98.0); NRBC Abs Auto 0.090 X10*3/uL (0.0-0.012); NRBC Pct Auto 0.7 /100WBC (0.0-0.2); Platelet Count 322 X10*3/uL (160-400); Red Blood Count 3.92 X10*6/uL (4.20-5.50); SCAN SMEAR FLAG 1; White Blood Count 13.3 X10*3/uL (4.8-10.8)
[2025-06-02 05:52] LABS: Alanine Aminotransferase 26 U/L (0-31); Albumin Level 3.5 g/dL (3.5-5.0); Alkaline Phosphatase 99 U/L (39-117); Anion Gap 15 (12-20); Aspartate Amino Transferase 38 U/L (5-31); Blood Urea Nitrogen 31 mg/dL (9-16); Calcium 9.1 mg/dL (8.4-10.2); Carbon Dioxide 24 mmol/L (22-29); Chloride 109 mmol/L (96-108); Creatinine Clr Calc Pharmacy 75.8; Estimated Glomerular Filt Rate > 60; Magnesium 2.4 mg/dL (1.6-2.6); Potassium 3.9 mmol/L (3.3-5.1); Sodium 144 mmol/L (135-145); Total Protein 6.2 g/dL (6.5-8.0)
[2025-06-02 07:19] LABS: Glucose, Whole Blood 180 mg/dL (60-115)
[2025-06-02] MEDS: Insulin Glargine,Hum.rec.anlog 100 UNIT/ML 10 ML VIAL 40 UNIT SUBCUT (07:55)
[2025-06-02] MEDS: Sodium,Potassium Phosphates POWD.PACK 2 PACKET PO (07:56)
[2025-06-02] MEDS: Aspirin Enteric Coated 81 MG TABLET.DR PO (08:00)
[2025-06-02] MEDS: Albuterol/Iprat 2.5/0.5MG 3 ML AMPUL.NEB INHALE ×4 (08:11→20:51)
[2025-06-02 11:35] LABS: Glucose, Whole Blood 239 mg/dL (60-115)
--- NOTE | 2025-06-02 11:37 | PM.CCPN ---
Subjective Subjective Date of Service: 06/02/25 Interval History: Significant improvement in her breathing status, very stable on 2 L oxygen Critical Care Time (minutes): 35 Physical Exam Vital Signs: Vital Signs: Last Vital Signs Temp 97.2 F 06/02/25 08:00 Pulse 136 H 06/02/25 11:25 Resp 19 06/02/25 11:25 BP 127/47 L 06/02/25 11:00 Pulse Ox 96 06/02/25 11:00 O2 Del Method Nasal Cannula 06/02/25 11:00 O2 Flow Rate 2 06/02/25 11:00 FiO2 30 05/31/25 16:55 BMI result Body Mass Index 35.3 General: Elderly lady in very mild acute distress, she is chronically ill appearing and tired appearing Nutritional Appearance: well nourished and overweight Eyes: appearance normal, both eyes and all related structures; Alignment and Position: alignment normal and position normal Neck: No lymphadenopathy, no thyromegaly Resp: bilateral air entry equal, decreased breath sounds in lung bases, occasional crackles heard Cardio: Regular rate, regular rhythm; Heart sounds: S1 normal heart sound present and S2 normal heart sound present GI: soft, nontender, no guarding, no hepatosplenomegaly : bladder normal to inspection, bladder normal to palpation, no renal angle tenderness Skin: no rashes or lesions noted and elasticity normal Neuro: oriented to person, oriented to place, oriented to time and moves all extremities Objective Data Labs 06/02/25 05:12 06/02/25 05:12 Labs: Laboratory Results - last 24 hr 06/01/25 06/01/25 06/02/25 16:37 21:19 05:12 WBC 13.3 H RBC 3.92 L Hgb 11.9 L Hct 35.3 L MCV 90.1 MCH 30.4 MCHC 33.7 RDW 15.5 Plt Count 322 MPV 9.7 Immature Gran % (Auto) 4.8 H Neut % (Auto) 64.1 Lymph % (Auto) 18.2 L [place] % (Auto) 12.4 H Eos % (Auto) 0.2 Baso % (Auto) 0.3 Lymph # (Auto) 2.4 [place] # (Auto) 1.7 H Eos # (Auto) 0.0 Baso # (Auto) 0.0 Abs Immat Gran (auto) 0.64 H Absolute Neuts (auto) 8.5 H Absolute Nucleated RBC 0.090 H Nucleated RBC % (auto) 0.7 H Smear Tech's Comments VERIFIED VBG pH VBG pCO2 VBG pO2 VBG HCO3 VBG O2 Saturation VBG Base Excess Sodium 144 Potassium 3.9 Chloride 109 H Carbon Dioxide 24 Anion Gap 15 BUN 31 H Creatinine 0.83 Estim Creat Clear Calc 75.8 Estimated GFR > 60 POC Glucose 296 H 235 H Random Glucose 181 H Calcium 9.1 Phosphorus 2.5 L Magnesium 2.4 Total Bilirubin 0.4 AST 38 H ALT 26 Alkaline Phosphatase 99 Total Protein 6.2 L Albumin 3.5 06/02/25 06/02/25 06/02/25 05:14 07:15 11:32 WBC RBC Hgb Hct MCV MCH MCHC RDW Plt Count MPV Immature Gran % (Auto) Neut % (Auto) Lymph % (Auto) [place] % (Auto) Eos % (Auto) Baso % (Auto) Lymph # (Auto) [place] # (Auto) Eos # (Auto) Baso # (Auto) Abs Immat Gran (auto) Absolute Neuts (auto) Absolute Nucleated RBC Nucleated RBC % (auto) Smear Tech's Comments VBG pH 7.46 H VBG pCO2 39 VBG pO2 40 VBG HCO3 28 H VBG O2 Saturation 58.0 VBG Base Excess 4.9 Sodium Potassium Chloride Carbon Dioxide Anion Gap BUN Creatinine Estim Creat Clear Calc Estimated GFR POC Glucose 180 H 239 H Random Glucose Calcium Phosphorus Magnesium Total Bilirubin AST ALT Alkaline Phosphatase Total Protein Albumin Microbiology Microbiology Results: Microbiology 05/31/25 00:12 Pleura Gram Stain - Final 05/31/25 00:12 Pleura Routine Culture - Final No growth after 2 days 05/31/25 00:12 Pleura Anaerobic Culture - Preliminary No growth to date. 05/30/25 04:35 Blood - Venous Blood Culture - Preliminary No growth after 48 hours. 05/30/25 01:25 Blood - Venous Blood Culture - Preliminary No growth after 48 hours. Progress Note: A&P Assessment and plan (1) Acute hypoxemic respiratory failure: Status: Acute (2) Pneumonia: Status: Acute (3) COPD (chronic obstructive pulmonary disease): Status: Acute (4) Pleural effusion: Status: Acute (5) Hypertension: Status: Acute Plan 65 years old lady with past medical history of stage IV breast cancer with malignant pleural effusions status post PleurX catheter placement on the left, chronic hypoxic respiratory failure due to COPD on 2 L home O2, DM, chronic diastolic CHF, mood disorder, peripheral vascular disease with multiple admissions for shortness of breath due to CHF, postobstructive pneumonia, pleural effusions over the last 2 months presents to the ED with shortness of breath. She had a left-sided PleurX catheter placed on 05/06/2025 which stopped draining and also has a new right-sided pleural effusion. These bilateral pleural effusions made her breathing status decompensate leading to hypoxia needing ICU admission. Initially placed on BiPAP currently stable on 2 L OxyMask after draining bilateral fluids. We are doing tPA and dornase to the left-sided PleurX catheter following which the output has significantly improved and is draining well. Tonight is the last dose of tPA and dornase. Respiratory: Acute on Chronic hypoxemic respiratory failure due to bilateral malignant pleural effusions evidenced by cytology. Left-sided PleurX catheter initially not functional, now improving with tPA and dornase through the catheter b.i.d.. Today is day 3 of tPA and dornase, we will stop after tonight. Right-sided chest tube placed by IR on 05/31/2025, drained about 1200 cc so far Breathing stable on oxygen at 2 L/min On p.o. prednisone 40 mg daily Cardiac: Shock resolved after thoracentesis on the right GI: On oral feeds Renal: Renal function normal Heme: Chronic anemia, closely monitor H&H, transfuse for hemoglobin less than 7 grams/deciliter Stage IV metastatic breast cancer: Status post chemotherapy followed by left-sided mastectomy 2 years ago, currently on letrozole. Has bilateral malignant pleural effusion evidenced by cytology of pleural fluid. Diabetes mellitus: Blood sugars better controlled with Lantus 40 units daily and sliding scale insulin At home she is on Lantus 28 units nightly. She is also on 20 units t.i.d. of lispro. Infectious disease: pending pancultures on empiric levofloxacin given her underlying malignancy and recurrent hospitalization Prophylaxis: Lovenox, omeprazole Quality Stroke Does the patient have a stroke diagnosis?: No VTE Prior VTE?: No VTE Risk Level:: Medical - moderate - high VTE Device Contraindication: N/A - Device Ordered VTE Drug Contraindication: N/A - Med Ordered
[2025-06-02] MEDS: Alteplase Cath Clear 10 MG, Dornase Alfa 5 MG, Lidocaine HCl 2 % MPF 10 ML in 0.9 % Sod... 500 MG INTRAPLEUR (13:33)
[2025-06-02 15:58] LABS: Glucose, Whole Blood 314 mg/dL (60-115)
--- NOTE | 2025-06-02 18:26 | PC.NURSE ---
Assumed care at 0700. Alteplase mixture administered by Dr. Jaime at approx 1330. A net total of 200mL of fluid was removed. Pt had 125mL drainage from chest tube. Pt repositioned q2hr as tolerated. Fall/safety precautions in place. See MAR and assessments for further details.
[2025-06-02 20:30] LABS: Glucose, Whole Blood 328 mg/dL (60-115)
[2025-06-02] MEDS: Alteplase Cath Clear 2 MG/2 ML VIAL INTRACATH (21:20)
[2025-06-02] MEDS: Alteplase Cath Clear 10 MG, Dornase Alfa 5 MG, Lidocaine HCl 2 % MPF 10 ML in 0.9 % Sod... INTRAPLEUR (22:45)
[2025-06-03] VITALS (19 sets, daily range): BP systolic 104–141; BP diastolic 56–75; PULSE 86–107; RESP 14–26; TEMP 36.4–36.8; O2SAT 92–100; BMI 35.3
[2025-06-03 04:30] LABS: VBG HCO3 29 mmol/L (22-26); VBG O2 % Saturation 74.0 %
[2025-06-03 04:34] LABS: Venous Blood Gas Refer to POC result
[2025-06-03 04:36] LABS: Hematocrit 33.5 % (37.0-47.0); Hemoglobin 10.7 g/dl (12.0-16.0); Imm Gran Abs Auto 0.67 X10*3/uL (0.00-0.03); Imm Gran Pct Auto 4.8 % (0.0-0.4); Lymphocytes Absolute Auto 2.8 X10*3/uL (1.2-4.9); MANUAL DIFF FLAG NO; Mean Corpuscular HGB Conc 31.9 g/dl (31.0-35.0); Mean Corpuscular Hemoglobin 30.1 pg (27.0-33.0); Mean Corpuscular Volume 94.4 fL (80.0-98.0); NRBC Abs Auto 0.110 X10*3/uL (0.0-0.012); NRBC Pct Auto 0.8 /100WBC (0.0-0.2); Platelet Count 299 X10*3/uL (160-400); Red Blood Count 3.55 X10*6/uL (4.20-5.50); White Blood Count 13.8 X10*3/uL (4.8-10.8)
[2025-06-03 04:51] LABS: Alanine Aminotransferase 24 U/L (0-31); Albumin Level 3.0 g/dL (3.5-5.0); Alkaline Phosphatase 104 U/L (39-117); Anion Gap 16 (12-20); Aspartate Amino Transferase 26 U/L (5-31); Blood Urea Nitrogen 21 mg/dL (9-16); Calcium 8.3 mg/dL (8.4-10.2); Carbon Dioxide 24 mmol/L (22-29); Chloride 111 mmol/L (96-108); Creatinine Clr Calc Pharmacy 88.7; Estimated Glomerular Filt Rate > 60; Magnesium 2.1 mg/dL (1.6-2.6); Potassium 3.7 mmol/L (3.3-5.1); Sodium 147 mmol/L (135-145); Total Protein 5.3 g/dL (6.5-8.0)
[2025-06-03 07:41] LABS: Glucose, Whole Blood 157 mg/dL (60-115)
[2025-06-03] MEDS: 0.9 % Sodium Chloride Flush 3 ML SYRINGE IVFLUSH ×3 (08:01→20:45)
[2025-06-03] MEDS: Albuterol/Iprat 2.5/0.5MG 3 ML AMPUL.NEB INHALE ×3 (08:01→19:42)
[2025-06-03] MEDS: Aspirin Enteric Coated 81 MG TABLET.DR PO (08:12)
[2025-06-03] MEDS: Insulin Glargine,Hum.rec.anlog 100 UNIT/ML 10 ML VIAL 40 UNIT SUBCUT (08:13)
[2025-06-03] MEDS: Sodium,Potassium Phosphates POWD.PACK 2 PACKET PO (08:13)
--- NOTE | 2025-06-03 10:15 | P.PNCC_ITS ---
Subjective Subjective Date of Service: 06/03/25 Interval History: 65-year-old lady with underlying COPD on 2 L of O2, diabetes mellitus, PVD, breast cancer status post mastectomy, now with recurrent metastatic bilateral pleural effusions status post left PleurX admitted on 05/30/2025 with dyspnea secondary to occluded left PleurX in development of recurrent large right-sided pleural effusion initially requiring BiPAP therapy. Now status post tPA/dornase to left PleurX with reestablishment of PleurX drainage and also status post right-sided chest tube with resolution of her underlying respiratory complains essentially back to baseline respiratory status. No events overnight. Critical Care Time (minutes): 0 Physical Exam 2 Vital Signs: Vital Signs: Last Vital Signs Temp 97.6 F 06/03/25 08:00 Pulse 101 H 06/03/25 09:00 Resp 22 H 06/03/25 09:00 BP 104/56 L 06/03/25 09:00 Pulse Ox 92 06/03/25 09:00 O2 Del Method Room Air 06/03/25 09:00 O2 Flow Rate 1 06/03/25 08:00 FiO2 30 05/31/25 16:55 BMI result Body Mass Index 35.3 Const: General: no acute distress, alert and awake Eyes: Sclerae: sclerae normal EOM: EOMs intact bilaterally Neck: Neck: Yes no lymphadenopathy, Yes trachea midline and Yes supple Chest: Other: Left PleurX, right chest tube Resp: Effort & Inspection: normal respiratory effort and no respiratory distress Auscultation: clear to auscultation bilaterally Cardio: Rate: tachycardic Rhythm: regular rhythm Heart sounds: no gallops, no murmurs and no rubs GI: Palpation (GI): Soft to palpation and Other GI palpation findings present ( Nontender) Auscultation: normal bowel sounds Extrem: General: Yes no pedal edema, No clubbing and No cyanosis Objective Data Labs 06/03/25 04:26 06/03/25 04:26 Labs: Laboratory Results - last 24 hr 06/02/25 06/02/25 06/02/25 11:32 15:54 20:26 WBC RBC Hgb Hct MCV MCH MCHC RDW Plt Count MPV Immature Gran % (Auto) Neut % (Auto) Lymph % (Auto) [place] % (Auto) Eos % (Auto) Baso % (Auto) Lymph # (Auto) [place] # (Auto) Eos # (Auto) Baso # (Auto) Abs Immat Gran (auto) Absolute Neuts (auto) Absolute Nucleated RBC Nucleated RBC % (auto) VBG pH VBG pCO2 VBG pO2 VBG HCO3 VBG O2 Saturation VBG Base Excess Sodium Potassium Chloride Carbon Dioxide Anion Gap BUN Creatinine Estim Creat Clear Calc Estimated GFR POC Glucose 239 H 314 H 328 H Random Glucose Calcium Phosphorus Magnesium Total Bilirubin AST ALT Alkaline Phosphatase Total Protein Albumin 06/03/25 06/03/25 06/03/25 04:26 04:27 07:37 WBC 13.8 H RBC 3.55 L Hgb 10.7 L Hct 33.5 L MCV 94.4 MCH 30.1 MCHC 31.9 RDW 15.5 Plt Count 299 MPV 9.8 Immature Gran % (Auto) 4.8 H Neut % (Auto) 64.6 Lymph % (Auto) 19.9 L [place] % (Auto) 9.7 Eos % (Auto) 0.7 Baso % (Auto) 0.3 Lymph # (Auto) 2.8 [place] # (Auto) 1.3 H Eos # (Auto) 0.1 Baso # (Auto) 0.0 Abs Immat Gran (auto) 0.67 H Absolute Neuts (auto) 9.0 H Absolute Nucleated RBC 0.110 H Nucleated RBC % (auto) 0.8 H VBG pH 7.46 H VBG pCO2 41 VBG pO2 47 VBG HCO3 29 H VBG O2 Saturation 74.0 VBG Base Excess 5.7 Sodium 147 H Potassium 3.7 Chloride 111 H Carbon Dioxide 24 Anion Gap 16 BUN 21 H Creatinine 0.71 Estim Creat Clear Calc 88.7 Estimated GFR > 60 POC Glucose 157 H Random Glucose 192 H Calcium 8.3 L D Phosphorus 2.4 L Magnesium 2.1 Total Bilirubin 0.3 AST 26 ALT 24 Alkaline Phosphatase 104 Total Protein 5.3 L Albumin 3.0 L Microbiology Microbiology Results: Microbiology 05/31/25 00:12 Pleura Gram Stain - Final 05/31/25 00:12 Pleura Routine Culture - Final No growth after 2 days 05/31/25 00:12 Pleura Anaerobic Culture - Preliminary No growth to date. 05/30/25 04:35 Blood - Venous Blood Culture - Preliminary No growth after 48 hours. 05/30/25 01:25 Blood - Venous Blood Culture - Preliminary No growth after 48 hours. Progress Note: A&P Assessment and plan (1) Acute hypoxemic respiratory failure: Status: Acute (2) COPD (chronic obstructive pulmonary disease): Status: Acute (3) Pleural effusion: Status: Acute (4) Malignant pleural effusion: Status: Acute (5) Type 2 diabetes mellitus with hyperglycemia: Status: Acute Plan Assessment: 65-year-old lady with underlying COPD on 2 L and malignant bilateral pleural effusion with breast cancer primary, status post left PleurX, admitted with acute respiratory distress secondary to PleurX small functioning and recurrence of right-sided pleural effusion Plan: Neuro: No acute issues. Cardiac: No acute issues. Pulmonary: Acute on chronic hypoxic respiratory failure initially requiring BiPAP support, now titrated back to baseline supplemental oxygen. Left PleurX status post tPA dornase with re-establishment of flow. Status post right chest tube, keep clamped, if pleural effusion reaccumulates, will require right-sided PleurX. Renal: No acute issues. Endo: No acute issues. Underlying diabetes mellitus and hypothyroidism. GI: No acute issues. ID: No acute issues Heme/Onc: No acute issues. Underlying metastatic breast cancer. Psych: No acute issues. Miscellaneous: No acute issues. Prophylaxis: Lovenox Diet: Regular Quality Stroke Does the patient have a stroke diagnosis?: No VTE Prior VTE?: No VTE Risk Level:: Medical - moderate - high VTE Device Contraindication: N/A - Device Ordered VTE Drug Contraindication: N/A - Med Ordered
[2025-06-03 11:05] LABS: Glucose, Whole Blood 218 mg/dL (60-115)
--- NOTE | 2025-06-03 11:20 | MHC.CLN ---
F/U DIET ADVANCED TO 2200DM PO INTAKE 75-100% FRAGILE SKIN NOTED PT TO TRANSFER TO MEDICAL FLOOR PER MD RD TO FOLLOW WEEKLY
[2025-06-03 16:45] LABS: Glucose, Whole Blood 291 mg/dL (60-115)
[2025-06-03 20:23] LABS: Glucose, Whole Blood 285 mg/dL (60-115)
[2025-06-04] VITALS (9 sets, daily range): BP systolic 118–142; BP diastolic 55–80; PULSE 87–102; RESP 16–20; TEMP 36.1–37; O2SAT 92–95; BMI 37.1
[2025-06-04 07:05] LABS: Glucose, Whole Blood 139 mg/dL (60-115)
[2025-06-04 07:40] LABS: Hematocrit 36.7 % (37.0-47.0); Hemoglobin 12.0 g/dl (12.0-16.0); Mean Corpuscular HGB Conc 32.7 g/dl (31.0-35.0); Mean Corpuscular Hemoglobin 30.5 pg (27.0-33.0); Mean Corpuscular Volume 93.1 fL (80.0-98.0); NRBC Abs Auto 0.160 X10*3/uL (0.0-0.012); Platelet Count 322 X10*3/uL (160-400); Red Blood Count 3.94 X10*6/uL (4.20-5.50); White Blood Count 16.1 X10*3/uL (4.8-10.8)
[2025-06-04 07:42] LABS: NRBC Pct Auto 1.0 /100WBC (0.0-0.2)
[2025-06-04] MEDS: Insulin Glargine,Hum.rec.anlog 100 UNIT/ML 10 ML VIAL 40 UNIT SUBCUT (07:55)
[2025-06-04] MEDS: Aspirin Enteric Coated 81 MG TABLET.DR PO (07:56)
[2025-06-04] MEDS: Albuterol/Iprat 2.5/0.5MG 3 ML AMPUL.NEB INHALE ×4 (07:56→19:42)
[2025-06-04 07:57] LABS: Albumin Level 3.2 g/dL (3.5-5.0); Anion Gap 13 (12-20); Blood Urea Nitrogen 21 mg/dL (9-16); Calcium 9.2 mg/dL (8.4-10.2); Carbon Dioxide 28 mmol/L (22-29); Chloride 113 mmol/L (96-108); Creatinine Clr Calc Pharmacy 93.6; Estimated Glomerular Filt Rate > 60; Magnesium 2.1 mg/dL (1.6-2.6); Potassium 5.0 mmol/L (3.3-5.1); Sodium 149 mmol/L (135-145)
[2025-06-04] MEDS: 0.9 % Sodium Chloride Flush 3 ML SYRINGE IVFLUSH (08:02)
[2025-06-04 08:19] LABS: Atypical Lymph Absolute Manual 0.2 x10*3/uL; Atypical Lymphs Percent Manual 1 % (0-6); Band Neutrophils Percent 0 % (3-5); Lymphocytes Absolute Manual 3.5 X10*3/uL (1.2-4.9); Lymphocytes Percent Manual 22 % (20-40); Metamyelocytes Absolute 0.2 X10*3/uL; Metamyelocytes Percent 1 %; Monocytes Absolute Manual 0.5 X10*3/uL (0.1-1.2); Monocytes Percent Manual 3 % (2-11); Myelocytes Absolute 0.2 X10*/uL; Myelocytes Percent 1 %; Neutrophils Absolute Manual 11.6 X10*3/uL (2.0-8.3); Neutrophils Percent Manual 72 % (45-73)
[2025-06-04 08:20] LABS: Burr Cells 1+ (0-2) /OIF; Polychromasia 1+ (0-2) /OIF; RBC Morphology NOTED; Schistocytes 1+ (0-2) /OIF; Tear Drop Cells 1+ (0-2) /OIF; Toxic Vacuolation PRESENT
--- NOTE | 2025-06-04 09:34 | HO.PM.IMPN ---
Subjective Subjective Date of Service: 06/04/25 Interval History: improving Physical Exam Vital Signs: Vital Signs: Last Vital Signs Temp 97.6 F 06/04/25 07:03 Pulse 94 06/04/25 07:56 Resp 20 06/04/25 07:56 BP 121/72 06/04/25 07:03 Pulse Ox 95 06/04/25 07:03 O2 Del Method Room Air 06/04/25 07:03 O2 Flow Rate 1 06/03/25 08:00 FiO2 30 05/31/25 16:55 BMI result Body Mass Index 37.1 General: AO X 3, no acute distress Resp: CTA bilateral, no accessory muscles used CVS: S1,S2,RRR GI: soft, non tender, non distended Neuro: motor grossly intact, alert Psych: appropriate affect, appropriate insight Objective Data Active Medications Albuterol/Ipratropium (Albuterol/Iprat 2.5/0.5mg 3 Ml Ampul.Neb) 3 ml INHALE RQ4H WHILE AWAKE [facility] Last Admin: 06/04/25 07:56 Dose: 3 ml Documented By: RHYS Aspirin (Aspirin Enteric Coated 81 Mg Tablet.Dr) 81 mg PO DAILY [facility] Last Admin: 06/04/25 07:56 Dose: 81 mg Documented By: MANFRED Atorvastatin Calcium (Atorvastatin Calcium 80 Mg Tablet) 80 mg PO DAILY [facility] Last Admin: 06/04/25 07:56 Dose: 80 mg Documented By: MANFRED Benzocaine (Throat Lozenge, Medicated Lozenge) 1 lozenge MUCOUS MEM Q2H PRN PRN Reason: Sore Throat Dextrose (Dextrose 50 % 25 Gm/50 Ml Syringe) 25 gm IVPUSH Q15M PRN; Protocol PRN Reason: per Hypoglycemia Standing Ord. Enoxaparin Sodium (Enoxaparin Sodium 40 Mg/0.4 Ml Syringe) 40 mg SUBCUT Q24H [facility] Last Admin: 06/04/25 07:55 Dose: 40 mg Documented By: MANFRED Glucose (Glucose Gel 15 Gm Gel..Gram.) 15 gm PO Q15M PRN; Protocol PRN Reason: per Hypoglycemia Standing Ord. Hydromorphone HCl (Hydromorphone Hcl 0.5 Mg/0.5 Ml Syringe) 0.5 mg IVPUSH Q4H PRN; Protocol PRN Reason: Pain, Moderate(Pain Scale 4-6) Last Admin: 06/01/25 07:45 Dose: 0.5 mg Documented By: MARIMAR Insulin Glargine (Insulin Glargine,Hum.Rec.Anlog 100 Unit/Ml 10 Ml Vial) 40 unit SUBCUT DAILY [facility] Last Admin: 06/04/25 07:55 Dose: 40 unit Documented By: MANFRED Insulin Human Lispro (Insulin Lispro 100 Unit/Ml 3 Ml Vial) 0 unit SUBCUT QIDACHS [facility]; Protocol Last Admin: 06/04/25 07:57 Dose: Not Given Documented By: MANFRED Non-Admin Reason: No Insulin Coverage Olanzapine (Olanzapine 10 Mg Vial) 5 mg IM DAILY PRN PRN Reason: anxiety/restlessness Omeprazole (Omeprazole 20 Mg Capsule.Dr) 20 mg PO DAILY@0630 [facility] Last Admin: 06/04/25 07:56 Dose: 20 mg Documented By: MANFRED Paroxetine HCl (Paroxetine Hcl 20 Mg Tablet) 20 mg PO DAILY [facility] Last Admin: 06/04/25 07:56 Dose: 20 mg Documented By: MANFRED Ropinirole HCl (Ropinirole Hcl 1 Mg Tablet) 1 mg PO BID [facility] Last Admin: 06/04/25 07:56 Dose: 1 mg Documented By: MANFRED Sodium Chloride (0.9 % Sodium Chloride Flush 3 Ml Syringe) 3 ml IVFLUSH QSHIFT [facility] Last Admin: 06/04/25 08:02 Dose: 3 ml Documented By: MANFRED Labs 06/04/25 07:04 06/04/25 07:04 Labs: Laboratory Results - last 24 hr 06/03/25 06/03/25 06/03/25 11:01 16:40 20:15 MCV MCH MCHC RDW Plt Count MPV Immature Gran % (Auto) Neut % (Auto) Lymph % (Auto) [place] % (Auto) Eos % (Auto) Baso % (Auto) Lymph # (Auto) [place] # (Auto) Eos # (Auto) Baso # (Auto) Abs Immat Gran (auto) Absolute Neuts (auto) Absolute Nucleated RBC Nucleated RBC % (auto) Neutrophils % (Manual) Band Neutrophils % Lymphocytes % (Manual) Atypical Lymphs % (Man) Monocytes % (Manual) Metamyelocytes % Myelocytes % Abs Neuts (Manual) Lymphocytes # (Manual) Atyp Lymphs # (Manual) Monocytes # (Manual) Metamyelocytes # Myelocytes # Nucleated RBCs Toxic Vacuolation Platelet Estimate Giant Platelets Plt Morphology Comment RBC Morphology Polychromasia Tear Drop Cells [place] Cells Schistocytes Anion Gap Estim Creat Clear Calc Estimated GFR POC Glucose 218 H 291 H 285 H Random Glucose Calcium Phosphorus Magnesium Albumin 06/04/25 06/04/25 06:59 07:04 MCV 93.1 MCH 30.5 MCHC 32.7 RDW 15.8 Plt Count 322 MPV 9.9 Immature Gran % (Auto) Cancelled Neut % (Auto) Cancelled Lymph % (Auto) Cancelled [place] % (Auto) Cancelled Eos % (Auto) Cancelled Baso % (Auto) Cancelled Lymph # (Auto) Cancelled [place] # (Auto) Cancelled Eos # (Auto) Cancelled Baso # (Auto) Cancelled Abs Immat Gran (auto) Cancelled Absolute Neuts (auto) Cancelled Absolute Nucleated RBC 0.160 H Nucleated RBC % (auto) 1.0 H Neutrophils % (Manual) 72 Band Neutrophils % 0 L Lymphocytes % (Manual) 22 Atypical Lymphs % (Man) 1 Monocytes % (Manual) 3 Metamyelocytes % 1 Myelocytes % 1 Abs Neuts (Manual) 11.6 H Lymphocytes # (Manual) 3.5 Atyp Lymphs # (Manual) 0.2 Monocytes # (Manual) 0.5 Metamyelocytes # 0.2 Myelocytes # 0.2 Nucleated RBCs 1 H Toxic Vacuolation PRESENT Platelet Estimate NORMAL Giant Platelets PRESENT Plt Morphology Comment NOTED RBC Morphology NOTED Polychromasia 1+ (0-2) Tear Drop Cells 1+ (0-2) [place] Cells 1+ (0-2) Schistocytes 1+ (0-2) Anion Gap 13 Estim Creat Clear Calc 93.6 Estimated GFR > 60 POC Glucose 139 H Random Glucose 142 H Calcium 9.2 D Phosphorus 2.7 Magnesium 2.1 Albumin 3.2 L Microbiology Microbiology Results: Microbiology 05/30/25 01:25 Blood Culture - Final Blood - Venous No growth after 5 days. 05/30/25 04:35 Blood Culture - Final Blood - Venous No growth after 5 days. 05/31/25 00:12 Gram Stain - Final Pleura Routine Culture - Final No growth after 2 days Anaerobic Culture - Preliminary No growth to date. Assessment and Plan (1) Pleural effusion: Status: Acute Plan 65F PMH stage IV breast cancer with malignant pleural effusion status post left-sided PleurX catheter, chronic hypoxic respiratory failure due to COPD on 2 L home O2, diabetes, chronic diastolic CHF, mood disorder, peripheral vascular disease presented with shortness of breath was admitted to the ICU on 05/30/2025 for rescue BiPAP, underwent chest tube placement on the right side and unclogging of left PleurX catheter. Was weaned down to baseline 2 L and downgraded on 06/03/2025. Acute on chronic hypoxic respiratory failure due to stage IV breast cancer with malignant pleural effusions bilaterally and clogged left-sided PleurX Now back to baseline, chest tube clamped and planned to replace with PleurX on right side once reaccumulates Diabetes continue with insulin sliding scale DVT prophylaxis with Lovenox Full code reason for continued hospitalization: Awaiting for fluid to reaccumulate to place PleurX Quality Stroke Does the patient have a stroke diagnosis?: No VTE Prior VTE?: No VTE Risk Level:: Medical - moderate - high VTE Device Contraindication: N/A - Device Ordered VTE Drug Contraindication: N/A - Med Ordered
--- NOTE | 2025-06-04 10:26 | PC.NURSE ---
Patient's chest tube remains clamped per provider, lungs are clear but diminished throughout. denies any SOB and feels better today . will continue to monitor
[2025-06-04 10:53] LABS: Glucose, Whole Blood 209 mg/dL (60-115)
[2025-06-04 16:14] LABS: Glucose, Whole Blood 228 mg/dL (60-115)
[2025-06-04 20:24] LABS: Strep Pneumo Ag urine Not Detected (Not Detected)
[2025-06-04 20:30] LABS: Glucose, Whole Blood 354 mg/dL (60-115)
[2025-06-05] VITALS (10 sets, daily range): BP systolic 112–137; BP diastolic 60–74; PULSE 92–103; RESP 16–20; TEMP 36.2–36.9; O2SAT 90–100; BMI 36.7
[2025-06-05 07:01] LABS: Glucose, Whole Blood 204 mg/dL (60-115)
[2025-06-05 07:21] LABS: Hematocrit 33.4 % (37.0-47.0); Hemoglobin 11.0 g/dl (12.0-16.0); Mean Corpuscular HGB Conc 32.9 g/dl (31.0-35.0); Mean Corpuscular Hemoglobin 30.4 pg (27.0-33.0); Mean Corpuscular Volume 92.3 fL (80.0-98.0); NRBC Abs Auto 0.140 X10*3/uL (0.0-0.012); NRBC Pct Auto 0.8 /100WBC (0.0-0.2); Platelet Count 296 X10*3/uL (160-400); Red Blood Count 3.62 X10*6/uL (4.20-5.50); White Blood Count 18.5 X10*3/uL (4.8-10.8)
[2025-06-05 07:29] LABS: Anion Gap 10 (12-20); Blood Urea Nitrogen 17 mg/dL (9-16); Calcium 8.3 mg/dL (8.4-10.2); Carbon Dioxide 23 mmol/L (22-29); Chloride 108 mmol/L (96-108); Creatinine Clr Calc Pharmacy 105.3; Estimated Glomerular Filt Rate > 60; Potassium 3.4 mmol/L (3.3-5.1); Sodium 138 mmol/L (135-145)
[2025-06-05] MEDS: Insulin Glargine,Hum.rec.anlog 100 UNIT/ML 10 ML VIAL 40 UNIT SUBCUT (07:45)
[2025-06-05] MEDS: Aspirin Enteric Coated 81 MG TABLET.DR PO (07:48)
[2025-06-05] MEDS: Albuterol/Iprat 2.5/0.5MG 3 ML AMPUL.NEB INHALE ×4 (08:29→20:11)
--- NOTE | 2025-06-05 10:35 | P.PNIM_ITS ---
Subjective Subjective Date of Service: 06/05/25 Interval History: worsening sob Physical Exam 2 Vital Signs: Vital Signs: Last Vital Signs Temp 97.2 F 06/05/25 06:58 Pulse 92 06/05/25 08:34 Resp 18 06/05/25 08:34 BP 134/63 06/05/25 06:58 Pulse Ox 94 06/05/25 06:58 O2 Del Method Room Air 06/05/25 06:58 O2 Flow Rate 1 06/03/25 08:00 FiO2 30 05/31/25 16:55 BMI result Body Mass Index 36.7 General: AO X 3, no acute distress Resp: CTA bilateral, no accessory muscles used CVS: S1,S2,RRR GI: soft, non tender, non distended Neuro: motor grossly intact, alert Psych: appropriate affect, appropriate insight Objective Data Active Medications Albuterol/Ipratropium (Albuterol/Iprat 2.5/0.5mg 3 Ml Ampul.Neb) 3 ml INHALE RQ4H WHILE AWAKE [facility] Last Admin: 06/05/25 08:29 Dose: 3 ml Documented By: RK Albuterol/Ipratropium (Albuterol/Iprat 2.5/0.5mg 3 Ml Ampul.Neb) 3 ml INHALE Q4H PRN PRN Reason: Wheezing Aspirin (Aspirin Enteric Coated 81 Mg Tablet.) 81 mg PO DAILY [facility] Last Admin: 06/05/25 07:48 Dose: 81 mg Documented By: CHRISTOS Atorvastatin Calcium (Atorvastatin Calcium 80 Mg Tablet) 80 mg PO DAILY [facility] Last Admin: 06/05/25 07:47 Dose: 80 mg Documented By: CHRISTOS Benzocaine (Throat Lozenge, Medicated Lozenge) 1 lozenge MUCOUS MEM Q2H PRN PRN Reason: Sore Throat Dextrose (Dextrose 50 % 25 Gm/50 Ml Syringe) 25 gm IVPUSH Q15M PRN; Protocol PRN Reason: per Hypoglycemia Standing Ord. Enoxaparin Sodium (Enoxaparin Sodium 40 Mg/0.4 Ml Syringe) 40 mg SUBCUT Q24H [facility] Last Admin: 06/05/25 07:48 Dose: 40 mg Documented By: CHRISTOS Glucose (Glucose Gel 15 Gm Gel..Gram.) 15 gm PO Q15M PRN; Protocol PRN Reason: per Hypoglycemia Standing Ord. Dextrose (D5w) 1,000 mls @ 100 mls/hr IVCONT .Q10H [facility] Last Admin: 06/05/25 06:16 Dose: 100 mls/hr Documented By: LEOLA Insulin Glargine (Insulin Glargine,Hum.Rec.Anlog 100 Unit/Ml 10 Ml Vial) 40 unit SUBCUT DAILY [facility] Last Admin: 06/05/25 07:45 Dose: 40 unit Documented By: CHRISTOS Insulin Human Lispro (Insulin Lispro 100 Unit/Ml 3 Ml Vial) 0 unit SUBCUT QIDACHS [facility]; Protocol Last Admin: 06/05/25 07:46 Dose: 4 unit Documented By: CHRISTOS Olanzapine (Olanzapine 10 Mg Vial) 5 mg IM DAILY PRN PRN Reason: anxiety/restlessness Omeprazole (Omeprazole 20 Mg Capsule.) 20 mg PO DAILY@0630 [facility] Last Admin: 06/05/25 06:15 Dose: 20 mg Documented By: LEOLA Paroxetine HCl (Paroxetine Hcl 20 Mg Tablet) 20 mg PO DAILY [facility] Last Admin: 06/05/25 07:48 Dose: 20 mg Documented By: CHRISTOS Ropinirole HCl (Ropinirole Hcl 1 Mg Tablet) 1 mg PO BID [facility] Last Admin: 06/05/25 07:47 Dose: 1 mg Documented By: CHRISTOS Sodium Chloride (0.9 % Sodium Chloride Flush 3 Ml Syringe) 3 ml IVFLUSH QSHIFT [facility] Last Admin: 06/05/25 07:57 Dose: Not Given Documented By: CHRISTOS Non-Admin Reason: IV Running Labs 06/05/25 07:02 06/05/25 07:02 Labs: Laboratory Results - last 24 hr 05/31/25 06/04/25 06/04/25 18:22 07:04 10:49 MCV MCH MCHC RDW Plt Count MPV Absolute Nucleated RBC Nucleated RBC % (auto) Smear Path Review SEE NOTE Anion Gap Estim Creat Clear Calc Estimated GFR POC Glucose 209 H Random Glucose Calcium Ur Strep pneumoniae Ag Not Detected 06/04/25 06/04/25 06/05/25 16:06 20:23 06:55 MCV MCH MCHC RDW Plt Count MPV Absolute Nucleated RBC Nucleated RBC % (auto) Smear Path Review Anion Gap Estim Creat Clear Calc Estimated GFR POC Glucose 228 H 354 H* 204 H Random Glucose Calcium Ur Strep pneumoniae Ag 06/05/25 07:02 MCV 92.3 MCH 30.4 MCHC 32.9 RDW 15.6 Plt Count 296 MPV 10.1 Absolute Nucleated RBC 0.140 H Nucleated RBC % (auto) 0.8 H Smear Path Review Anion Gap 10 L Estim Creat Clear Calc 105.3 Estimated GFR > 60 POC Glucose Random Glucose 217 H Calcium 8.3 L D Ur Strep pneumoniae Ag Microbiology Microbiology Results: Microbiology 05/31/25 00:12 Gram Stain - Final Pleura Routine Culture - Final No growth after 2 days Anaerobic Culture - Preliminary No growth to date. 05/30/25 01:25 Blood Culture - Final Blood - Venous No growth after 5 days. 05/30/25 04:35 Blood Culture - Final Blood - Venous No growth after 5 days. Assessment and Plan (1) Pleural effusion: Status: Acute Plan 65F PMH stage IV breast cancer with malignant pleural effusion status post left- sided PleurX catheter, chronic hypoxic respiratory failure due to COPD on 2 L home O2, diabetes, chronic diastolic CHF, mood disorder, peripheral vascular disease presented with shortness of breath was admitted to the ICU on 05/30/2025 for rescue BiPAP, underwent chest tube placement on the right side and unclogging of left PleurX catheter. Was weaned down to baseline 2 L and downgraded on 06/03/2025. Acute on chronic hypoxic respiratory failure due to stage IV breast cancer with malignant pleural effusions bilaterally and clogged left-sided PleurX Now back to baseline, chest tube clamped and planned to replace with PleurX on right side once reaccumulates sob today due to reaccumulation on left, will continue to drain pleurx as needed Diabetes continue with insulin sliding scale DVT prophylaxis with Lovenox Full code reason for continued hospitalization: Awaiting for fluid to reaccumulate to place PleurX Quality Stroke Does the patient have a stroke diagnosis?: No VTE Prior VTE?: No VTE Risk Level:: Medical - moderate - high VTE Device Contraindication: N/A - Device Ordered VTE Drug Contraindication: N/A - Med Ordered
--- NOTE | 2025-06-05 10:38 | MHC.CM.PN ---
Per ROUNDS discussion, Patient is not yet medically cleared for dc (SOB); home with services is the goal and CM will continue to follow.
[2025-06-05 10:55] LABS: Glucose, Whole Blood 277 mg/dL (60-115)
[2025-06-05 16:20] LABS: Glucose, Whole Blood 237 mg/dL (60-115)
[2025-06-05 19:39] LABS: Glucose, Whole Blood 326 mg/dL (60-115)
[2025-06-06] VITALS (9 sets, daily range): BP systolic 103–133; BP diastolic 53–69; PULSE 92–101; RESP 16–22; TEMP 36.4–36.9; O2SAT 94–99; BMI 36.7
[2025-06-06 07:03] LABS: Glucose, Whole Blood 269 mg/dL (60-115)
[2025-06-06 07:28] LABS: Hematocrit 34.2 % (37.0-47.0); Hemoglobin 10.8 g/dl (12.0-16.0); Mean Corpuscular HGB Conc 31.6 g/dl (31.0-35.0); Mean Corpuscular Hemoglobin 29.9 pg (27.0-33.0); Mean Corpuscular Volume 94.7 fL (80.0-98.0); NRBC Abs Auto 0.140 X10*3/uL (0.0-0.012); NRBC Pct Auto 0.8 /100WBC (0.0-0.2); Platelet Count 282 X10*3/uL (160-400); Red Blood Count 3.61 X10*6/uL (4.20-5.50); White Blood Count 17.6 X10*3/uL (4.8-10.8)
[2025-06-06] MEDS: Albuterol/Iprat 2.5/0.5MG 3 ML AMPUL.NEB INHALE ×3 (08:27→15:15)
[2025-06-06] MEDS: Aspirin Enteric Coated 81 MG TABLET.DR PO (08:45)
[2025-06-06] MEDS: Insulin Glargine,Hum.rec.anlog 100 UNIT/ML 10 ML VIAL 40 UNIT SUBCUT (08:45)
[2025-06-06] MEDS: 0.9 % Sodium Chloride Flush 3 ML SYRINGE IVFLUSH ×2 (08:46→16:31)
[2025-06-06 09:17] LABS: Anion Gap 12 (12-20); Blood Urea Nitrogen 12 mg/dL (9-16); Calcium 8.7 mg/dL (8.4-10.2); Carbon Dioxide 25 mmol/L (22-29); Chloride 103 mmol/L (96-108); Creatinine Clr Calc Pharmacy 103.6; Estimated Glomerular Filt Rate > 60; Potassium 4.0 mmol/L (3.3-5.1); Sodium 136 mmol/L (135-145)
--- NOTE | 2025-06-06 10:33 | P.PNIM_ITS ---
Subjective Subjective Date of Service: 06/06/25 Interval History: sob resolved Physical Exam 2 Vital Signs: Vital Signs: Last Vital Signs Temp 97.5 F 06/06/25 07:04 Pulse 92 06/06/25 08:32 Resp 18 06/06/25 08:32 BP 118/61 06/06/25 07:04 Pulse Ox 95 06/06/25 07:04 O2 Del Method Nasal Cannula 06/06/25 07:04 O2 Flow Rate 2 06/06/25 07:04 FiO2 30 05/31/25 16:55 BMI result Body Mass Index 36.7 General: AO X 3, no acute distress Resp: CTA bilateral, no accessory muscles used CVS: S1,S2,RRR GI: soft, non tender, non distended Neuro: motor grossly intact, alert Psych: appropriate affect, appropriate insight Objective Data Active Medications Albuterol/Ipratropium (Albuterol/Iprat 2.5/0.5mg 3 Ml Ampul.Neb) 3 ml INHALE RQ4H WHILE AWAKE [facility] Last Admin: 06/06/25 08:27 Dose: 3 ml Documented By: RK Albuterol/Ipratropium (Albuterol/Iprat 2.5/0.5mg 3 Ml Ampul.Neb) 3 ml INHALE Q4H PRN PRN Reason: Wheezing Aspirin (Aspirin Enteric Coated 81 Mg Tablet.) 81 mg PO DAILY [facility] Last Admin: 06/06/25 08:45 Dose: 81 mg Documented By: SHELDON Atorvastatin Calcium (Atorvastatin Calcium 80 Mg Tablet) 80 mg PO DAILY [facility] Last Admin: 06/06/25 08:45 Dose: 80 mg Documented By: SHELDON Benzocaine (Throat Lozenge, Medicated Lozenge) 1 lozenge MUCOUS MEM Q2H PRN PRN Reason: Sore Throat Dextrose (Dextrose 50 % 25 Gm/50 Ml Syringe) 25 gm IVPUSH Q15M PRN; Protocol PRN Reason: per Hypoglycemia Standing Ord. Enoxaparin Sodium (Enoxaparin Sodium 40 Mg/0.4 Ml Syringe) 40 mg SUBCUT Q24H [facility] Last Admin: 06/06/25 08:46 Dose: 40 mg Documented By: SHELDON Glucose (Glucose Gel 15 Gm Gel..Gram.) 15 gm PO Q15M PRN; Protocol PRN Reason: per Hypoglycemia Standing Ord. Hydromorphone HCl (Hydromorphone Hcl 1 Mg/Ml Syringe) 1 mg IVPUSH Q4H PRN; Protocol PRN Reason: Pain, Severe (Pain Scale 7-10) Last Admin: 06/06/25 08:52 Dose: 1 mg Documented By: SHELDON Insulin Glargine (Insulin Glargine,Hum.Rec.Anlog 100 Unit/Ml 10 Ml Vial) 40 unit SUBCUT DAILY [facility] Last Admin: 06/06/25 08:45 Dose: 40 unit Documented By: SHELDON Insulin Human Lispro (Insulin Lispro 100 Unit/Ml 3 Ml Vial) 0 unit SUBCUT QIDACHS [facility]; Protocol Last Admin: 06/06/25 08:45 Dose: 6 unit Documented By: SHELDON Olanzapine (Olanzapine 10 Mg Vial) 5 mg IM DAILY PRN PRN Reason: anxiety/restlessness Omeprazole (Omeprazole 20 Mg Capsule.Dr) 20 mg PO DAILY@0630 [facility] Last Admin: 06/06/25 05:42 Dose: 20 mg Documented By: KATHERINE Paroxetine HCl (Paroxetine Hcl 20 Mg Tablet) 20 mg PO DAILY [facility] Last Admin: 06/06/25 08:45 Dose: 20 mg Documented By: SHELDON Ropinirole HCl (Ropinirole Hcl 1 Mg Tablet) 1 mg PO BID [facility] Last Admin: 06/06/25 08:45 Dose: 1 mg Documented By: SHELDON Sodium Chloride (0.9 % Sodium Chloride Flush 3 Ml Syringe) 3 ml IVFLUSH QSHIFT [facility] Last Admin: 06/06/25 08:46 Dose: 3 ml Documented By: SHELDON Labs 06/06/25 06:50 06/06/25 08:52 Labs: Laboratory Results - last 24 hr 05/31/25 06/05/25 06/05/25 18:22 10:51 16:16 MCV MCH MCHC RDW Plt Count MPV Absolute Nucleated RBC Nucleated RBC % (auto) Hold Purple Top Anion Gap Estim Creat Clear Calc Estimated GFR POC Glucose 277 H 237 H Random Glucose Calcium Ur L.pneumophila Ag Not Detected 06/05/25 06/06/25 06/06/25 19:33 06:50 06:55 MCV 94.7 MCH 29.9 MCHC 31.6 RDW 15.9 Plt Count 282 MPV 10.4 Absolute Nucleated RBC 0.140 H Nucleated RBC % (auto) 0.8 H Hold Purple Top Anion Gap TNP Estim Creat Clear Calc TNP Estimated GFR TNP POC Glucose 326 H 269 H Random Glucose TNP Calcium TNP Ur L.pneumophila Ag 06/06/25 08:52 MCV MCH MCHC RDW Plt Count MPV Absolute Nucleated RBC Nucleated RBC % (auto) Hold Purple Top SEE NOTE Anion Gap 12 Estim Creat Clear Calc 103.6 Estimated GFR > 60 POC Glucose Random Glucose 289 H Calcium 8.7 Ur L.pneumophila Ag Microbiology Microbiology Results: Microbiology 05/31/25 00:12 Gram Stain - Final Pleura Routine Culture - Final No growth after 2 days Anaerobic Culture - Preliminary No growth to date. Assessment and Plan (1) Pleural effusion: Status: Acute Plan 65F PMH stage IV breast cancer with malignant pleural effusion status post left- sided PleurX catheter, chronic hypoxic respiratory failure due to COPD on 2 L home O2, diabetes, chronic diastolic CHF, mood disorder, peripheral vascular disease presented with shortness of breath was admitted to the ICU on 05/30/2025 for rescue BiPAP, underwent chest tube placement on the right side and unclogging of left PleurX catheter. Was weaned down to baseline 2 L and downgraded on 06/03/2025. Acute on chronic hypoxic respiratory failure due to stage IV breast cancer with malignant pleural effusions bilaterally and clogged left-sided PleurX Now back to baseline, chest tube clamped and planned to replace with PleurX on right side once reaccumulates continue to drain left pleurx as needed Diabetes continue with insulin sliding scale DVT prophylaxis with Lovenox Full code reason for continued hospitalization: Awaiting for fluid to reaccumulate to place PleurX, Quality Stroke Does the patient have a stroke diagnosis?: No VTE Prior VTE?: No VTE Risk Level:: Medical - moderate - high VTE Device Contraindication: N/A - Device Ordered VTE Drug Contraindication: N/A - Med Ordered
[2025-06-06 11:01] LABS: Glucose, Whole Blood 298 mg/dL (60-115)
[2025-06-06 16:04] LABS: Glucose, Whole Blood 377 mg/dL (60-115)
[2025-06-06 20:47] LABS: Glucose, Whole Blood 263 mg/dL (60-115)
[2025-06-07] VITALS (8 sets, daily range): BP systolic 116–141; BP diastolic 57–74; PULSE 84–102; RESP 16–20; TEMP 36.1–36.5; O2SAT 95–98; BMI 38.9
[2025-06-07] MEDS: 0.9 % Sodium Chloride Flush 3 ML SYRINGE IVFLUSH ×4 (00:15→21:37)
[2025-06-07 06:57] LABS: Glucose, Whole Blood 136 mg/dL (60-115)
[2025-06-07] MEDS: Aspirin Enteric Coated 81 MG TABLET.DR PO (09:07)
[2025-06-07] MEDS: Insulin Glargine,Hum.rec.anlog 100 UNIT/ML 10 ML VIAL 40 UNIT SUBCUT (09:08)
--- NOTE | 2025-06-07 09:51 | HO.PM.IMPN ---
Subjective Subjective Date of Service: 06/07/25 Interval History: sob resolved Physical Exam Vital Signs: Vital Signs: Last Vital Signs Temp 97.5 F 06/07/25 06:56 Pulse 90 06/07/25 06:56 Resp 18 06/07/25 06:56 BP 141/64 H 06/07/25 06:56 Pulse Ox 95 06/07/25 06:56 O2 Del Method Nasal Cannula 06/07/25 06:56 O2 Flow Rate 2 06/07/25 06:56 FiO2 30 05/31/25 16:55 BMI result Body Mass Index 38.9 General: AO X 3, no acute distress Resp: CTA bilateral, no accessory muscles used CVS: S1,S2,RRR GI: soft, non tender, non distended Neuro: motor grossly intact, alert Psych: appropriate affect, appropriate insight Objective Data Active Medications Albuterol/Ipratropium (Albuterol/Iprat 2.5/0.5mg 3 Ml Ampul.Neb) 3 ml INHALE Q4H PRN PRN Reason: Wheezing Aspirin (Aspirin Enteric Coated 81 Mg Tablet.) 81 mg PO DAILY [facility] Last Admin: 06/07/25 09:07 Dose: 81 mg Documented By: ASHISH Atorvastatin Calcium (Atorvastatin Calcium 80 Mg Tablet) 80 mg PO DAILY [facility] Last Admin: 06/07/25 09:07 Dose: 80 mg Documented By: ASHISH Benzocaine (Throat Lozenge, Medicated Lozenge) 1 lozenge MUCOUS MEM Q2H PRN PRN Reason: Sore Throat Dextrose (Dextrose 50 % 25 Gm/50 Ml Syringe) 25 gm IVPUSH Q15M PRN; Protocol PRN Reason: per Hypoglycemia Standing Ord. Enoxaparin Sodium (Enoxaparin Sodium 40 Mg/0.4 Ml Syringe) 40 mg SUBCUT Q24H [facility] Last Admin: 06/07/25 09:07 Dose: 40 mg Documented By: ASHISH Glucose (Glucose Gel 15 Gm Gel..Gram.) 15 gm PO Q15M PRN; Protocol PRN Reason: per Hypoglycemia Standing Ord. Hydromorphone HCl (Hydromorphone Hcl 1 Mg/Ml Syringe) 1 mg IVPUSH Q4H PRN; Protocol PRN Reason: Pain, Severe (Pain Scale 7-10) Last Admin: 06/06/25 21:45 Dose: 1 mg Documented By: NIMA Insulin Glargine (Insulin Glargine,Hum.Rec.Anlog 100 Unit/Ml 10 Ml Vial) 40 unit SUBCUT DAILY [facility] Last Admin: 06/07/25 09:08 Dose: 40 unit Documented By: ASHISH Insulin Human Lispro (Insulin Lispro 100 Unit/Ml 3 Ml Vial) 0 unit SUBCUT QIDACHS [facility]; Protocol Last Admin: 06/07/25 07:50 Dose: Not Given Documented By: LENY Non-Admin Reason: No Insulin Coverage Olanzapine (Olanzapine 10 Mg Vial) 5 mg IM DAILY PRN PRN Reason: anxiety/restlessness Omeprazole (Omeprazole 20 Mg Capsule.Dr) 20 mg PO DAILY@0630 [facility] Last Admin: 06/07/25 05:47 Dose: 20 mg Documented By: ANTREJI Paroxetine HCl (Paroxetine Hcl 20 Mg Tablet) 20 mg PO DAILY [facility] Last Admin: 06/07/25 09:07 Dose: 20 mg Documented By: ASHISH Ropinirole HCl (Ropinirole Hcl 1 Mg Tablet) 1 mg PO BID [facility] Last Admin: 06/07/25 09:07 Dose: 1 mg Documented By: ASHISH Sodium Chloride (0.9 % Sodium Chloride Flush 3 Ml Syringe) 3 ml IVFLUSH QSHIFT [facility] Last Admin: 06/07/25 09:09 Dose: 3 ml Documented By: ASHISH Labs 06/06/25 06:50 06/06/25 08:52 Labs: Laboratory Results - last 24 hr 05/31/25 06/06/25 06/06/25 18:22 10:51 16:00 POC Glucose 298 H 377 H* Ur L.pneumophila Ag Not Detected 06/06/25 06/07/25 20:40 06:48 POC Glucose 263 H 136 H Ur L.pneumophila Ag Microbiology Microbiology Results: Microbiology 05/31/25 00:12 Gram Stain - Final Pleura Routine Culture - Final No growth after 2 days Anaerobic Culture - Final NO GROWTH AFTER 5 DAYS Assessment and Plan (1) Pleural effusion: Status: Acute Plan 65F PMH stage IV breast cancer with malignant pleural effusion status post left-sided PleurX catheter, chronic hypoxic respiratory failure due to COPD on 2 L home O2, diabetes, chronic diastolic CHF, mood disorder, peripheral vascular disease presented with shortness of breath was admitted to the ICU on 05/30/2025 for rescue BiPAP, underwent chest tube placement on the right side and unclogging of left PleurX catheter. Was weaned down to baseline 2 L and downgraded on 06/03/2025. Acute on chronic hypoxic respiratory failure due to stage IV breast cancer with malignant pleural effusions bilaterally and clogged left-sided PleurX Now back to baseline, chest tube clamped and planned to replace with PleurX on right side once reaccumulates continue to drain left pleurx as needed Diabetes continue with insulin sliding scale DVT prophylaxis with Lovenox Full code reason for continued hospitalization: Awaiting for fluid to reaccumulate to place PleurX, Quality Stroke Does the patient have a stroke diagnosis?: No VTE Prior VTE?: No VTE Risk Level:: Medical - moderate - high VTE Device Contraindication: N/A - Device Ordered VTE Drug Contraindication: N/A - Med Ordered
[2025-06-07 11:08] LABS: Glucose, Whole Blood 248 mg/dL (60-115)
[2025-06-07] MEDS: Albuterol/Iprat 2.5/0.5MG 3 ML AMPUL.NEB INHALE (11:16)
--- NOTE | 2025-06-07 13:44 | MHC.CM.PN ---
EMR REVIEWED, PER HOSPITALIST PLAN TO DISCUSS W/PULMONARY WE ARE STILL WAITING FOR FLUID TO REACCUMULATE TO REPLACE NEW R CHEST TUBE W/PLUEREX, PLAN CONT'S TO BE FOR PT TO RETURN HOME AND RESUME SERVICES IN PLACE CHANNEL [employer], CM WILL CONT TO FOLLOW DC NEEDS.
[2025-06-07 16:36] LABS: Glucose, Whole Blood 250 mg/dL (60-115)
[2025-06-07 20:48] LABS: Glucose, Whole Blood 284 mg/dL (60-115)
[2025-06-07] MEDS: OLANZapine 10 MG VIAL 5 MG IM (21:41)
[2025-06-08] VITALS (9 sets, daily range): BP systolic 120–160; BP diastolic 52–84; PULSE 93–108; RESP 18–24; TEMP 36–36.9; O2SAT 94–100; BMI 39.9
[2025-06-08 07:16] LABS: Glucose, Whole Blood 209 mg/dL (60-115)
[2025-06-08] MEDS: Aspirin Enteric Coated 81 MG TABLET.DR PO (07:49)
[2025-06-08] MEDS: Insulin Glargine,Hum.rec.anlog 100 UNIT/ML 10 ML VIAL 40 UNIT SUBCUT (07:50)
[2025-06-08] MEDS: 0.9 % Sodium Chloride Flush 3 ML SYRINGE IVFLUSH ×3 (07:51→20:35)
--- NOTE | 2025-06-08 10:09 | P.PNIM_ITS ---
Subjective Subjective Date of Service: 06/08/25 Interval History: sob resolved Physical Exam 2 Vital Signs: Vital Signs: Last Vital Signs Temp 97.3 F 06/08/25 07:52 Pulse 93 06/08/25 07:52 Resp 20 06/08/25 07:52 BP 160/67 H 06/08/25 07:52 Pulse Ox 95 06/08/25 07:52 O2 Del Method Nasal Cannula 06/08/25 07:52 O2 Flow Rate 2 06/08/25 07:52 FiO2 30 05/31/25 16:55 BMI result Body Mass Index 39.9 General: AO X 3, no acute distress Resp: dimisnihed at bases bilateral, no accessory muscles used CVS: S1,S2,RRR GI: soft, non tender, non distended Neuro: motor grossly intact, alert Psych: appropriate affect, appropriate insight Objective Data Active Medications Albuterol/Ipratropium (Albuterol/Iprat 2.5/0.5mg 3 Ml Ampul.Neb) 3 ml INHALE Q4H PRN PRN Reason: Wheezing Last Admin: 06/07/25 11:16 Dose: 3 ml Documented By: CASPER Aspirin (Aspirin Enteric Coated 81 Mg Tablet.) 81 mg PO DAILY [facility] Last Admin: 06/08/25 07:49 Dose: 81 mg Documented By: WILL Atorvastatin Calcium (Atorvastatin Calcium 80 Mg Tablet) 80 mg PO DAILY [facility] Last Admin: 06/08/25 07:49 Dose: 80 mg Documented By: WILL Benzocaine (Throat Lozenge, Medicated Lozenge) 1 lozenge MUCOUS MEM Q2H PRN PRN Reason: Sore Throat Dextrose (Dextrose 50 % 25 Gm/50 Ml Syringe) 25 gm IVPUSH Q15M PRN; Protocol PRN Reason: per Hypoglycemia Standing Ord. Enoxaparin Sodium (Enoxaparin Sodium 40 Mg/0.4 Ml Syringe) 40 mg SUBCUT Q24H [facility] Last Admin: 06/08/25 07:50 Dose: 40 mg Documented By: WILL Glucose (Glucose Gel 15 Gm Gel..Gram.) 15 gm PO Q15M PRN; Protocol PRN Reason: per Hypoglycemia Standing Ord. Hydromorphone HCl (Hydromorphone Hcl 1 Mg/Ml Syringe) 1 mg IVPUSH Q4H PRN; Protocol PRN Reason: Pain, Severe (Pain Scale 7-10) Last Admin: 06/08/25 04:37 Dose: 1 mg Documented By: AL Insulin Glargine (Insulin Glargine,Hum.Rec.Anlog 100 Unit/Ml 10 Ml Vial) 40 unit SUBCUT DAILY [facility] Last Admin: 06/08/25 07:50 Dose: 40 unit Documented By: WILL Insulin Human Lispro (Insulin Lispro 100 Unit/Ml 3 Ml Vial) 0 unit SUBCUT QIDACHS [facility]; Protocol Last Admin: 06/08/25 07:50 Dose: 4 unit Documented By: WILL Olanzapine (Olanzapine 10 Mg Vial) 5 mg IM DAILY PRN PRN Reason: anxiety/restlessness Last Admin: 06/07/25 21:41 Dose: 5 mg Documented By: AL Omeprazole (Omeprazole 20 Mg Capsule.Dr) 20 mg PO DAILY@0630 [facility] Last Admin: 06/08/25 06:37 Dose: 20 mg Documented By: LITA Paroxetine HCl (Paroxetine Hcl 20 Mg Tablet) 20 mg PO DAILY [facility] Last Admin: 06/08/25 07:50 Dose: 20 mg Documented By: WILL Ropinirole HCl (Ropinirole Hcl 1 Mg Tablet) 1 mg PO BID [facility] Last Admin: 06/08/25 07:49 Dose: 1 mg Documented By: WILL Sodium Chloride (0.9 % Sodium Chloride Flush 3 Ml Syringe) 3 ml IVFLUSH QSHIFT [facility] Last Admin: 06/08/25 07:51 Dose: 3 ml Documented By: WILL Labs 06/06/25 06:50 06/06/25 08:52 Labs: Laboratory Results - last 24 hr 06/07/25 06/07/25 06/07/25 10:59 16:32 20:42 POC Glucose 248 H 250 H 284 H 06/08/25 07:11 POC Glucose 209 H Assessment and Plan (1) Pleural effusion: Status: Acute Plan 65F PMH stage IV breast cancer with malignant pleural effusion status post left- sided PleurX catheter, chronic hypoxic respiratory failure due to COPD on 2 L home O2, diabetes, chronic diastolic CHF, mood disorder, peripheral vascular disease presented with shortness of breath was admitted to the ICU on 05/30/2025 for rescue BiPAP, underwent chest tube placement on the right side and unclogging of left PleurX catheter. Was weaned down to baseline 2 L and downgraded on 06/03/2025. Acute on chronic hypoxic respiratory failure due to stage IV breast cancer with malignant pleural effusions bilaterally and clogged left-sided PleurX Now back to baseline, chest tube clamped, plan for CT chest to eval loculations continue to drain left pleurx as needed Diabetes continue with insulin sliding scale DVT prophylaxis with Lovenox Full code reason for continued hospitalization: ct chest pending Quality Stroke Does the patient have a stroke diagnosis?: No VTE Prior VTE?: No VTE Risk Level:: Medical - moderate - high VTE Device Contraindication: N/A - Device Ordered VTE Drug Contraindication: N/A - Med Ordered
[2025-06-08] MEDS: Albuterol/Iprat 2.5/0.5MG 3 ML AMPUL.NEB INHALE ×2 (10:48→19:55)
--- NOTE | 2025-06-08 10:57 | PC.NURSE ---
SKIFF OPERATOR notified RN that pt was short of breath after ADLs. This RN assessed pt and assisted SKIFF OPERATOR with ADLs. RN left bedside briefly to call RT for breathing treatment. SKIFF OPERATOR then notified this RN that chest tube detached from patient. Dr. Cronin at bedside stated to apply dry dressing to chest tube site. VS stable at this time.
[2025-06-08 11:12] LABS: Glucose, Whole Blood 184 mg/dL (60-115)
[2025-06-08 15:19] LABS: Glucose, Whole Blood 269 mg/dL (60-115)
[2025-06-08 20:39] LABS: Glucose, Whole Blood 306 mg/dL (60-115)
[2025-06-09] VITALS (10 sets, daily range): BP systolic 123–171; BP diastolic 54–82; PULSE 90–107; RESP 17–24; TEMP 35.8–36.7; O2SAT 91–100; BMI 39.2
[2025-06-09] MEDS: Albuterol/Iprat 2.5/0.5MG 3 ML AMPUL.NEB INHALE ×4 (05:03→21:06)
[2025-06-09 07:15] LABS: Glucose, Whole Blood 243 mg/dL (60-115)
[2025-06-09] MEDS: Aspirin Enteric Coated 81 MG TABLET.DR PO (07:58)
[2025-06-09] MEDS: 0.9 % Sodium Chloride Flush 3 ML SYRINGE IVFLUSH ×2 (07:59→16:14)
[2025-06-09] MEDS: Insulin Glargine,Hum.rec.anlog 100 UNIT/ML 10 ML VIAL 40 UNIT SUBCUT (08:04)
--- NOTE | 2025-06-09 09:55 | P.PNIM_ITS ---
Subjective Subjective Date of Service: 06/09/25 Interval History: still sob right chest tube fell out 06/08/25 Physical Exam 2 Vital Signs: Vital Signs: Last Vital Signs Temp 97.7 F 06/09/25 07:59 Pulse 94 06/09/25 07:59 Resp 18 06/09/25 07:59 BP 128/58 L 06/09/25 07:59 Pulse Ox 95 06/09/25 07:59 O2 Del Method Nasal Cannula 06/09/25 07:59 O2 Flow Rate 2 06/09/25 07:59 FiO2 30 05/31/25 16:55 BMI result Body Mass Index 39.2 General: AO X 3, no acute distress Resp: dimisnihed at bases bilateral, no accessory muscles used CVS: S1,S2,RRR GI: soft, non tender, non distended Neuro: motor grossly intact, alert Psych: appropriate affect, appropriate insight Objective Data Active Medications Albuterol/Ipratropium (Albuterol/Iprat 2.5/0.5mg 3 Ml Ampul.Neb) 3 ml INHALE Q4H PRN PRN Reason: Wheezing Last Admin: 06/09/25 05:03 Dose: 3 ml Documented By: AIMEE Aspirin (Aspirin Enteric Coated 81 Mg Tablet.) 81 mg PO DAILY [facility] Last Admin: 06/09/25 07:58 Dose: 81 mg Documented By: WILL Atorvastatin Calcium (Atorvastatin Calcium 80 Mg Tablet) 80 mg PO DAILY [facility] [place] Last Admin: 06/09/25 07:58 Dose: 80 mg Documented By: WILL Benzocaine (Throat Lozenge, Medicated Lozenge) 1 lozenge MUCOUS MEM Q2H PRN PRN Reason: Sore Throat Dextrose (Dextrose 50 % 25 Gm/50 Ml Syringe) 25 gm IVPUSH Q15M PRN; Protocol PRN Reason: per Hypoglycemia Standing Ord. Enoxaparin Sodium (Enoxaparin Sodium 40 Mg/0.4 Ml Syringe) 40 mg SUBCUT Q24H [facility] Last Admin: 06/09/25 08:00 Dose: 40 mg Documented By: WILL Glucose (Glucose Gel 15 Gm Gel..Gram.) 15 gm PO Q15M PRN; Protocol PRN Reason: per Hypoglycemia Standing Ord. Hydromorphone HCl (Hydromorphone Hcl 1 Mg/Ml Syringe) 1 mg IVPUSH Q4H PRN; Protocol PRN Reason: Pain, Severe (Pain Scale 7-10) Last Admin: 06/09/25 04:59 Dose: 1 mg Documented By: DALILA Insulin Glargine (Insulin Glargine,Hum.Rec.Anlog 100 Unit/Ml 10 Ml Vial) 40 unit SUBCUT DAILY [facility] Last Admin: 06/09/25 08:04 Dose: 40 unit Documented By: WILL Insulin Human Lispro (Insulin Lispro 100 Unit/Ml 3 Ml Vial) 0 unit SUBCUT QIDACHS [facility]; Protocol Last Admin: 06/09/25 08:04 Dose: 4 unit Documented By: WILL Olanzapine (Olanzapine 10 Mg Vial) 5 mg IM DAILY PRN PRN Reason: anxiety/restlessness Last Admin: 06/07/25 21:41 Dose: 5 mg Documented By: AL Omeprazole (Omeprazole 20 Mg Capsule.Dr) 20 mg PO DAILY@0630 [facility] Last Admin: 06/09/25 04:57 Dose: 20 mg Documented By: DALILA Paroxetine HCl (Paroxetine Hcl 20 Mg Tablet) 20 mg PO DAILY [facility] [place] Last Admin: 06/09/25 07:58 Dose: 20 mg Documented By: WILL Ropinirole HCl (Ropinirole Hcl 1 Mg Tablet) 1 mg PO BID [facility] Last Admin: 06/09/25 07:58 Dose: 1 mg Documented By: WILL Sodium Chloride (0.9 % Sodium Chloride Flush 3 Ml Syringe) 3 ml IVFLUSH QSHIFT [facility] Last Admin: 06/09/25 07:59 Dose: 3 ml Documented By: WILL Labs 06/06/25 06:50 06/06/25 08:52 Labs: Laboratory Results - last 24 hr 06/08/25 06/08/25 06/08/25 11:02 15:15 20:30 POC Glucose 184 H 269 H 306 H 06/09/25 07:11 POC Glucose 243 H Assessment and Plan (1) Pleural effusion: Status: Acute Plan 65F PMH stage IV breast cancer with malignant pleural effusion status post left- sided PleurX catheter, chronic hypoxic respiratory failure due to COPD on 2 L home O2, diabetes, chronic diastolic CHF, mood disorder, peripheral vascular disease presented with shortness of breath was admitted to the ICU on 05/30/2025 for rescue BiPAP, underwent chest tube placement on the right side and unclogging of left PleurX catheter. Was weaned down to baseline 2 L and downgraded on 06/03/2025. Acute on chronic hypoxic respiratory failure due to stage IV breast cancer with malignant pleural effusions bilaterally and clogged left-sided PleurX left pleurx unclogged and working, right chest tube fell out 06/08/25 back to 2L, but still dyspneic, ct chest with right loculated effusion follow up pulm continue to drain left pleurx as needed Diabetes continue with insulin sliding scale DVT prophylaxis with Lovenox Full code reason for continued hospitalization: sob Quality Stroke Does the patient have a stroke diagnosis?: No VTE Prior VTE?: No VTE Risk Level:: Medical - moderate - high VTE Device Contraindication: N/A - Device Ordered VTE Drug Contraindication: N/A - Med Ordered
[2025-06-09 11:09] LABS: Glucose, Whole Blood 268 mg/dL (60-115)
--- NOTE | 2025-06-09 12:43 | PM.CNPUL ---
History of Present Illness History of Present Illness Consult date: 06/09/25 Chief complaint: Loculated right-sided pleural effusion Narrative: 65-year-old lady with underlying COPD on 2 L of O2, diabetes mellitus, PVD, breast cancer status post mastectomy, now with recurrent metastatic bilateral pleural effusions status post left PleurX admitted on 05/30/2025 with dyspnea secondary to occluded left PleurX in development of recurrent large right-sided pleural effusion initially requiring BiPAP therapy. Now status post tPA/dornase to left PleurX with reestablishment of PleurX drainage and also status post right-sided chest tube with resolution of her underlying respiratory complains essentially back to baseline respiratory status. However, patient with slow recurrence of right-sided pleural effusion, also with loculation. Review of Systems Constitutional: Constitutional: Denies daytime sleepiness, Denies excessive sweating, Denies fatigue, Denies fever(s), Denies lethargy, Denies malaise, Denies night sweats, Denies snoring and Denies weight loss Eyes: Eyes: Denies blurry vision and Denies itchy eyes ENT: Denies nasal congestion, Denies post nasal drip, Denies sinus pain, Denies sinus pressure and Denies other ( Thrush) Cardiovascular: Cardiovascular: Denies chest pain, Denies pedal edema, Reports dyspnea, Reports dyspnea on exertion, Denies orthopnea and Denies paroxysmal nocturnal dyspnea Respiratory: Respiratory: Denies cough, Denies hemoptysis, Denies excessive phlegm production, Reports dyspnea, Reports dyspnea on exertion, Denies snoring and Denies wheezing Gastrointestinal: Gastrointestinal: Denies abdominal pain and Denies heartburn Musculoskeletal: Musculoskeletal: Denies myalgias, Denies arthralgias and Denies joint swelling Integumentary/Breasts: Skin/Breast: Denies rash Neurologic: Denies memory loss and Denies seizure-like activity Psychiatric: Psychiatric: Denies abnormal sleep pattern, Denies anxiety and Denies memory loss Endocrine: Endocrine: Denies excessive sweating, Denies fatigue and Denies heat intolerance Hematologic/Lymphatic: Hematologic/Lymphatic: Denies easy bruising Allergic/Immunologic: Allergic/Immunologic: Denies itchy eyes, Denies seasonal rhinorrhea and Denies wheezing PMFSH Past Medical History Medical History (Updated 06/09/25 @ 12:46 by Bhavesh Garland MD) Malignant pleural effusion Stenosis of left subclavian artery Maculopapular rash, localized Recurrent pleural effusion Generalized anxiety disorder TIA (transient ischemic attack) (~12/2024) Recent bereavement Environmental and seasonal allergies HLD (hyperlipidemia) Multinodular goiter Peripheral neuropathy History of short term memory loss [place] in place Smoker Family history of prostate cancer in father Leg swelling Shortness of breath Effusion of left knee Weakness Fall Thyroid nodule Adrenal adenoma Vision changes Diabetes History of palpitations History of unsteady gait Low back pain Arthritis Mild heartburn Hx of renal calculi Vaginal yeast infection Encounter to discuss test results 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 Brother No problems noted. Daughter No problems noted. Surgical History Surgical History (Updated 05/31/25 @ 00:02 by Gricel Santamaria) Hx of colonoscopy H/O total mastectomy of left breast (12/21/22) History of biopsy History of endometrial ablation Hx of tubal ligation History of tonsillectomy History of appendectomy History of cholecystectomy History of bladder surgery History of left knee replacement Social History Social History Household Members: Children Household Members Other:: Daughter Housing: House Are you a primary lawn care worker to a significant other at home: No Do you presently have visiting nurse or other home services: No 75 years or older and lives alone: No Alcohol intake: current Alcohol intake frequency: holidays/special occasions only Comment: pt rings appropriately Patient Tobacco Use Status: Former Tobacco user Tobacco use type: Cigarette Cigarette Packs Per Day: 1 Years Smoked: 40, 1 pack a day e-Cigarette/Vaping Use: Never Used Second Hand Smoke Exposure: No Advance Directives Date on File: 04/26/25 service: No Current occupational status: disabled Cognitive needs: No Hearing needs: No Vision needs: Yes Meds Allergies Allergy/AdvReac Type Severity Reaction Status Date / Time diclofenac (From Voltaren) Allergy Severe enlarged Verified 05/30/25 06:02 liver lisinopril (From Zestril) Allergy Severe Angioedema Verified 05/30/25 06:02 losartan Allergy Severe Angioedema Verified 05/30/25 06:02 omeprazole Allergy Intermediate elevated Verified 05/30/25 06:02 blood pressure Penicillins (PENICILLINS) Allergy Intermediate Facial Verified 05/30/25 06:02 Swelling oxybutynin (Oxybutynin) AdvReac Severe body Verified 05/30/25 06:02 twitching gabapentin AdvReac Intermediate Hypertensio Verified 05/30/25 06:02 n metformin AdvReac Intermediate Diarrhea Verified 05/30/25 06:02 duloxetine AdvReac Intermediate tachycardia Uncoded 05/30/25 06:02 Active Medications: Current Medications Albuterol/Ipratropium (Albuterol/Iprat 2.5/0.5mg 3 Ml Ampul.Neb) 3 ml INHALE Q4H PRN PRN Reason: Wheezing Last Admin: 06/09/25 10:31 Dose: 3 ml Aspirin (Aspirin Enteric Coated 81 Mg Tablet.) 81 mg PO DAILY [place] On Hold: 06/09/25 12:26 Last Admin: 06/09/25 07:58 Dose: 81 mg Atorvastatin Calcium (Atorvastatin Calcium 80 Mg Tablet) 80 mg PO DAILY [facility] Last Admin: 06/09/25 07:58 Dose: 80 mg Benzocaine (Throat Lozenge, Medicated Lozenge) 1 lozenge MUCOUS MEM Q2H PRN PRN Reason: Sore Throat Dextrose (Dextrose 50 % 25 Gm/50 Ml Syringe) 25 gm IVPUSH Q15M PRN; Protocol PRN Reason: per Hypoglycemia Standing Ord. Enoxaparin Sodium (Enoxaparin Sodium 40 Mg/0.4 Ml Syringe) 40 mg SUBCUT Q24H [facility] Last Admin: 06/09/25 08:00 Dose: 40 mg Glucose (Glucose Gel 15 Gm Gel..Gram.) 15 gm PO Q15M PRN; Protocol PRN Reason: per Hypoglycemia Standing Ord. Hydromorphone HCl (Hydromorphone Hcl 1 Mg/Ml Syringe) 1 mg IVPUSH Q4H PRN; Protocol PRN Reason: Pain, Severe (Pain Scale 7-10) Last Admin: 06/09/25 11:54 Dose: 1 mg Alteplase, Recombinant 10 mg/Dornase Pieter 5 mg/ Lidocaine HCl 10 ml/ Sodium Chloride 50 mls @ 0 mls/hr INTRAPLEUR BID [facility] Stop: 06/12/25 09:01 Insulin Glargine (Insulin Glargine,Hum.Rec.Anlog 100 Unit/Ml 10 Ml Vial) 40 unit SUBCUT DAILY [facility] Last Admin: 06/09/25 08:04 Dose: 40 unit Insulin Human Lispro (Insulin Lispro 100 Unit/Ml 3 Ml Vial) 0 unit SUBCUT QIDACHS [facility]; Protocol Last Admin: 06/09/25 11:55 Dose: 6 unit Olanzapine (Olanzapine 10 Mg Vial) 5 mg IM DAILY PRN PRN Reason: anxiety/restlessness Last Admin: 06/07/25 21:41 Dose: 5 mg Omeprazole (Omeprazole 20 Mg Capsule.Dr) 20 mg PO DAILY@0630 [facility] Last Admin: 06/09/25 04:57 Dose: 20 mg Paroxetine HCl (Paroxetine Hcl 20 Mg Tablet) 20 mg PO DAILY [facility] Last Admin: 06/09/25 07:58 Dose: 20 mg Ropinirole HCl (Ropinirole Hcl 1 Mg Tablet) 1 mg PO BID [facility] Last Admin: 06/09/25 07:58 Dose: 1 mg Sodium Chloride (0.9 % Sodium Chloride Flush 3 Ml Syringe) 3 ml IVFLUSH QSHIFT [facility] Last Admin: 06/09/25 07:59 Dose: 3 ml Home Medications ?Medication ?Instructions ?Recorded ?Confirmed ?Last Taken ?Type acetaminophen 325 mg capsule 325 mg PO QID PRN Pain 09/01/22 05/30/25 Unknown History cyanocobalamin (vitamin B-12) 1,000 mcg PO DAILY 09/04/22 05/30/25 05/22/25 History 1,000 mcg tablet ferrous sulfate 325 mg (65 mg 325 mg PO FR@0900 08/09/24 05/30/25 05/17/25 History iron) tablet (Iron (ferrous sulfate)) zinc gluconate 50 mg tablet 50 mg PO DAILY 08/09/24 05/30/25 05/22/25 History atorvastatin 80 mg tablet 80 mg PO DAILY 04/03/25 05/30/25 05/22/25 History cholecalciferol (vitamin D3) 50 50 mcg PO Q48H 04/03/25 05/30/25 05/22/25 History mcg (2,000 unit) capsule clotrimazole 1 % topical cream 1 appl topical BID Fungal 04/03/25 05/30/25 Unknown History Infections insulin aspart U-100 100 unit/mL 20 unit subcut TIDAC 04/03/25 05/30/25 05/22/25 History (3 mL) subcutaneous pen (Novolog FlexPen U-100 Insulin aspart) ondansetron 4 mg disintegrating 4 mg PO Q8H PRN Nausea And Vomiting 04/03/25 05/30/25 Unknown History tablet sennosides 8.6 mg tablet (Senokot) 8.6 mg PO BID PRN Constipation 04/03/25 05/30/25 04/02/25 History solifenacin 5 mg tablet (Vesicare) 5 mg PO BEDTIME 04/03/25 05/30/25 05/21/25 History triamcinolone acetonide 0.1 % 1 appl topical DAILY PRN Itchy/Dry 04/03/25 05/30/25 Unknown History topical cream Skin dulaglutide 1.5 mg/0.5 mL 1.5 mg subcut FR 04/22/25 05/30/25 05/17/25 History subcutaneous pen injector (Trulicity) furosemide 40 mg tablet 40 mg PO DAILY 05/22/25 05/30/25 05/22/25 History hydrochlorothiazide 12.5 mg tablet 12.5 mg PO DAILY 05/30/25 05/30/25 Unknown History losartan 25 mg tablet 25 mg PO DAILY 05/30/25 Unknown History Physical Exam Vital Signs: Vital Signs: Last Vital Signs Temp 98.1 F 06/09/25 11:10 Pulse 97 06/09/25 11:10 Resp 20 06/09/25 11:10 BP 148/82 H 06/09/25 11:10 Pulse Ox 100 06/09/25 11:10 O2 Del Method Nasal Cannula 06/09/25 11:10 O2 Flow Rate 2 06/09/25 11:10 FiO2 30 05/31/25 16:55 BMI result Body Mass Index 39.2 Const: General: no acute distress, alert and awake Eyes: Sclerae: sclerae normal EOM: EOMs intact bilaterally Neck: Neck: Yes no lymphadenopathy, Yes trachea midline and Yes supple Resp: Effort & Inspection: normal respiratory effort and no respiratory distress Auscultation: crackles (Bibasilar) Cardio: Rate: regular rate Rhythm: regular rhythm Heart sounds: no gallops, no murmurs and no rubs GI: Palpation (GI): Soft to palpation and Other GI palpation findings present ( Nontender) Auscultation: normal bowel sounds Extrem: General: Yes no pedal edema, No clubbing and No cyanosis Results Laboratory Findings 06/06/25 06:50 06/06/25 08:52 Abnormal lab findings: Abnormal Labs 05/30/25 05/30/25 05/30/25 01:12 01:25 09:29 WBC 15.8 H RBC Hgb Hct Immature Gran % (Auto) 3.0 H Neut % (Auto) Lymph % (Auto) [place] % (Auto) Eos % (Auto) 4.7 H Lymph # (Auto) [place] # (Auto) 1.4 H Eos # (Auto) 0.7 H Abs Immat Gran (auto) 0.47 H Absolute Neuts (auto) 9.6 H Absolute Nucleated RBC 0.090 H Nucleated RBC % (auto) 0.6 H Band Neutrophils % Abs Neuts (Manual) Nucleated RBCs VBG pH VBG HCO3 Sodium Chloride Carbon Dioxide Anion Gap BUN POC Glucose Random Glucose 271 H Calcium Phosphorus 5.2 H AST 33 H Alkaline Phosphatase 130 H Troponin I High Sens 24.0 H D Total Protein Albumin 05/30/25 05/30/25 05/30/25 13:51 16:27 21:03 WBC RBC Hgb Hct Immature Gran % (Auto) Neut % (Auto) Lymph % (Auto) [place] % (Auto) Eos % (Auto) Lymph # (Auto) [place] # (Auto) Eos # (Auto) Abs Immat Gran (auto) Absolute Neuts (auto) Absolute Nucleated RBC Nucleated RBC % (auto) Band Neutrophils % Abs Neuts (Manual) Nucleated RBCs VBG pH VBG HCO3 Sodium Chloride Carbon Dioxide Anion Gap BUN POC Glucose 396 H* 382 H* 282 H Random Glucose Calcium Phosphorus AST Alkaline Phosphatase Troponin I High Sens Total Protein Albumin 05/31/25 05/31/25 05/31/25 05:12 07:29 11:11 WBC 16.9 H RBC 3.65 L Hgb 10.8 L Hct 33.1 L Immature Gran % (Auto) 4.2 H Neut % (Auto) 82.2 H Lymph % (Auto) 6.2 L [place] % (Auto) Eos % (Auto) Lymph # (Auto) 1.0 L [place] # (Auto) Eos # (Auto) Abs Immat Gran (auto) 0.71 H Absolute Neuts (auto) 13.9 H Absolute Nucleated RBC 0.020 H Nucleated RBC % (auto) Band Neutrophils % Abs Neuts (Manual) Nucleated RBCs VBG pH VBG HCO3 Sodium Chloride Carbon Dioxide Anion Gap BUN 34 H POC Glucose 301 H 215 H Random Glucose 286 H Calcium Phosphorus AST 32 H Alkaline Phosphatase Troponin I High Sens Total Protein 6.4 L Albumin 05/31/25 05/31/25 06/01/25 16:25 20:28 05:29 WBC 16.4 H RBC 3.89 L Hgb 11.7 L Hct 36.1 L Immature Gran % (Auto) 2.5 H Neut % (Auto) 84.1 H Lymph % (Auto) 5.6 L [place] % (Auto) Eos % (Auto) Lymph # (Auto) 0.9 L [place] # (Auto) 1.3 H Eos # (Auto) Abs Immat Gran (auto) 0.41 H Absolute Neuts (auto) 13.8 H Absolute Nucleated RBC 0.030 H Nucleated RBC % (auto) Band Neutrophils % Abs Neuts (Manual) Nucleated RBCs VBG pH VBG HCO3 Sodium Chloride Carbon Dioxide 21 L Anion Gap BUN 40 H POC Glucose 167 H 214 H Random Glucose 227 H Calcium Phosphorus AST 35 H Alkaline Phosphatase Troponin I High Sens Total Protein Albumin 06/01/25 06/01/25 06/01/25 07:25 11:21 16:37 WBC RBC Hgb Hct Immature Gran % (Auto) Neut % (Auto) Lymph % (Auto) [place] % (Auto) Eos % (Auto) Lymph # (Auto) [place] # (Auto) Eos # (Auto) Abs Immat Gran (auto) Absolute Neuts (auto) Absolute Nucleated RBC Nucleated RBC % (auto) Band Neutrophils % Abs Neuts (Manual) Nucleated RBCs VBG pH VBG HCO3 Sodium Chloride Carbon Dioxide Anion Gap BUN POC Glucose 285 H 317 H 296 H Random Glucose Calcium Phosphorus AST Alkaline Phosphatase Troponin I High Sens Total Protein Albumin 06/01/25 06/02/25 06/02/25 21:19 05:12 05:14 WBC 13.3 H RBC 3.92 L Hgb 11.9 L Hct 35.3 L Immature Gran % (Auto) 4.8 H Neut % (Auto) Lymph % (Auto) 18.2 L [place] % (Auto) 12.4 H Eos % (Auto) Lymph # (Auto) [place] # (Auto) 1.7 H Eos # (Auto) Abs Immat Gran (auto) 0.64 H Absolute Neuts (auto) 8.5 H Absolute Nucleated RBC 0.090 H Nucleated RBC % (auto) 0.7 H Band Neutrophils % Abs Neuts (Manual) Nucleated RBCs VBG pH 7.46 H VBG HCO3 28 H Sodium Chloride 109 H Carbon Dioxide Anion Gap BUN 31 H POC Glucose 235 H Random Glucose 181 H Calcium Phosphorus 2.5 L AST 38 H Alkaline Phosphatase Troponin I High Sens Total Protein 6.2 L Albumin 06/02/25 06/02/25 06/02/25 07:15 11:32 15:54 WBC RBC Hgb Hct Immature Gran % (Auto) Neut % (Auto) Lymph % (Auto) [place] % (Auto) Eos % (Auto) Lymph # (Auto) [place] # (Auto) Eos # (Auto) Abs Immat Gran (auto) Absolute Neuts (auto) Absolute Nucleated RBC Nucleated RBC % (auto) Band Neutrophils % Abs Neuts (Manual) Nucleated RBCs VBG pH VBG HCO3 Sodium Chloride Carbon Dioxide Anion Gap BUN POC Glucose 180 H 239 H 314 H Random Glucose Calcium Phosphorus AST Alkaline Phosphatase Troponin I High Sens Total Protein Albumin 06/02/25 06/03/25 06/03/25 20:26 04:26 04:27 WBC 13.8 H RBC 3.55 L Hgb 10.7 L Hct 33.5 L Immature Gran % (Auto) 4.8 H Neut % (Auto) Lymph % (Auto) 19.9 L [place] % (Auto) Eos % (Auto) Lymph # (Auto) [place] # (Auto) 1.3 H Eos # (Auto) Abs Immat Gran (auto) 0.67 H Absolute Neuts (auto) 9.0 H Absolute Nucleated RBC 0.110 H Nucleated RBC % (auto) 0.8 H Band Neutrophils % Abs Neuts (Manual) Nucleated RBCs VBG pH 7.46 H VBG HCO3 29 H Sodium 147 H Chloride 111 H Carbon Dioxide Anion Gap BUN 21 H POC Glucose 328 H Random Glucose 192 H Calcium 8.3 L D Phosphorus 2.4 L AST Alkaline Phosphatase Troponin I High Sens Total Protein 5.3 L Albumin 3.0 L 06/03/25 06/03/2506/03/25 07:37 11:01 16:40 WBC RBC Hgb Hct Immature Gran % (Auto) Neut % (Auto) Lymph % (Auto) [place] % (Auto) Eos % (Auto) Lymph # (Auto) [place] # (Auto) Eos # (Auto) Abs Immat Gran (auto) Absolute Neuts (auto) Absolute Nucleated RBC Nucleated RBC % (auto) Band Neutrophils % Abs Neuts (Manual) Nucleated RBCs VBG pH VBG HCO3 Sodium Chloride Carbon Dioxide Anion Gap BUN POC Glucose 157 H 218 H 291 H Random Glucose Calcium Phosphorus AST Alkaline Phosphatase Troponin I High Sens Total Protein Albumin 06/03/25 06/04/25 06/04/25 20:15 06:59 07:04 WBC 16.1 H RBC 3.94 L Hgb Hct 36.7 L Immature Gran % (Auto) Neut % (Auto) Lymph % (Auto) [place] % (Auto) Eos % (Auto) Lymph # (Auto) [place] # (Auto) Eos # (Auto) Abs Immat Gran (auto) Absolute Neuts (auto) Absolute Nucleated RBC 0.160 H Nucleated RBC % (auto) 1.0 H Band Neutrophils % 0 L Abs Neuts (Manual) 11.6 H Nucleated RBCs 1 H VBG pH VBG HCO3 Sodium 149 H Chloride 113 H Carbon Dioxide Anion Gap BUN 21 H POC Glucose 285 H 139 H Random Glucose 142 H Calcium Phosphorus AST Alkaline Phosphatase Troponin I High Sens Total Protein Albumin 3.2 L 06/04/25 06/04/25 06/04/25 10:49 16:06 20:23 WBC RBC Hgb Hct Immature Gran % (Auto) Neut % (Auto) Lymph % (Auto) [place] % (Auto) Eos % (Auto) Lymph # (Auto) [place] # (Auto) Eos # (Auto) Abs Immat Gran (auto) Absolute Neuts (auto) Absolute Nucleated RBC Nucleated RBC % (auto) Band Neutrophils % Abs Neuts (Manual) Nucleated RBCs VBG pH VBG HCO3 Sodium Chloride Carbon Dioxide Anion Gap BUN POC Glucose 209 H 228 H 354 H* Random Glucose Calcium Phosphorus AST Alkaline Phosphatase Troponin I High Sens Total Protein Albumin 06/05/25 06/05/25 06/05/25 06:55 07:02 10:51 WBC 18.5 H RBC 3.62 L Hgb 11.0 L Hct 33.4 L Immature Gran % (Auto) Neut % (Auto) Lymph % (Auto) [place] % (Auto) Eos % (Auto) Lymph # (Auto) [place] # (Auto) Eos # (Auto) Abs Immat Gran (auto) Absolute Neuts (auto) Absolute Nucleated RBC 0.140 H Nucleated RBC % (auto) 0.8 H Band Neutrophils % Abs Neuts (Manual) Nucleated RBCs VBG pH VBG HCO3 Sodium Chloride Carbon Dioxide Anion Gap 10 L BUN 17 H POC Glucose 204 H 277 H Random Glucose 217 H Calcium 8.3 L D Phosphorus AST Alkaline Phosphatase Troponin I High Sens Total Protein Albumin 06/05/25 06/05/25 06/06/25 16:16 19:33 06:50 WBC 17.6 H RBC 3.61 L Hgb 10.8 L Hct 34.2 L Immature Gran % (Auto) Neut % (Auto) Lymph % (Auto) [place] % (Auto) Eos % (Auto) Lymph # (Auto) [place] # (Auto) Eos # (Auto) Abs Immat Gran (auto) Absolute Neuts (auto) Absolute Nucleated RBC 0.140 H Nucleated RBC % (auto) 0.8 H Band Neutrophils % Abs Neuts (Manual) Nucleated RBCs VBG pH VBG HCO3 Sodium Chloride Carbon Dioxide Anion Gap BUN POC Glucose 237 H 326 H Random Glucose Calcium Phosphorus AST Alkaline Phosphatase Troponin I High Sens Total Protein Albumin 06/06/25 06/06/25 06/06/25 06:55 08:52 10:51 WBC RBC Hgb Hct Immature Gran % (Auto) Neut % (Auto) Lymph % (Auto) [place] % (Auto) Eos % (Auto) Lymph # (Auto) [place] # (Auto) Eos # (Auto) Abs Immat Gran (auto) Absolute Neuts (auto) Absolute Nucleated RBC Nucleated RBC % (auto) Band Neutrophils % Abs Neuts (Manual) Nucleated RBCs VBG pH VBG HCO3 Sodium Chloride Carbon Dioxide Anion Gap BUN POC Glucose 269 H 298 H Random Glucose 289 H Calcium Phosphorus AST Alkaline Phosphatase Troponin I High Sens Total Protein Albumin 06/06/25 06/06/25 06/07/25 16:00 20:40 06:48 WBC RBC Hgb Hct Immature Gran % (Auto) Neut % (Auto) Lymph % (Auto) [place] % (Auto) Eos % (Auto) Lymph # (Auto) [place] # (Auto) Eos # (Auto) Abs Immat Gran (auto) Absolute Neuts (auto) Absolute Nucleated RBC Nucleated RBC % (auto) Band Neutrophils % Abs Neuts (Manual) Nucleated RBCs VBG pH VBG HCO3 Sodium Chloride Carbon Dioxide Anion Gap BUN POC Glucose 377 H* 263 H 136 H Random Glucose Calcium Phosphorus AST Alkaline Phosphatase Troponin I High Sens Total Protein Albumin 06/07/25 06/07/25 06/07/25 10:59 16:32 20:42 WBC RBC Hgb Hct Immature Gran % (Auto) Neut % (Auto) Lymph % (Auto) [place] % (Auto) Eos % (Auto) Lymph # (Auto) [place] # (Auto) Eos # (Auto) Abs Immat Gran (auto) Absolute Neuts (auto) Absolute Nucleated RBC Nucleated RBC % (auto) Band Neutrophils % Abs Neuts (Manual) Nucleated RBCs VBG pH VBG HCO3 Sodium Chloride Carbon Dioxide Anion Gap BUN POC Glucose 248 H 250 H 284 H Random Glucose Calcium Phosphorus AST Alkaline Phosphatase Troponin I High Sens Total Protein Albumin 06/08/25 06/08/25 06/08/25 07:11 11:02 15:15 WBC RBC Hgb Hct Immature Gran % (Auto) Neut % (Auto) Lymph % (Auto) [place] % (Auto) Eos % (Auto) Lymph # (Auto) [place] # (Auto) Eos # (Auto) Abs Immat Gran (auto) Absolute Neuts (auto) Absolute Nucleated RBC Nucleated RBC % (auto) Band Neutrophils % Abs Neuts (Manual) Nucleated RBCs VBG pH VBG HCO3 Sodium Chloride Carbon Dioxide Anion Gap BUN POC Glucose 209 H 184 H 269 H Random Glucose Calcium Phosphorus AST Alkaline Phosphatase Troponin I High Sens Total Protein Albumin 06/08/25 06/09/25 06/09/25 20:30 07:11 10:52 WBC RBC Hgb Hct Immature Gran % (Auto) Neut % (Auto) Lymph % (Auto) [place] % (Auto) Eos % (Auto) Lymph # (Auto) [place] # (Auto) Eos # (Auto) Abs Immat Gran (auto) Absolute Neuts (auto) Absolute Nucleated RBC Nucleated RBC % (auto) Band Neutrophils % Abs Neuts (Manual) Nucleated RBCs VBG pH VBG HCO3 Sodium Chloride Carbon Dioxide Anion Gap BUN POC Glucose 306 H 243 H 268 H Random Glucose Calcium Phosphorus AST Alkaline Phosphatase Troponin I High Sens Total Protein Albumin Microbiology: Microbiology 05/31/25 00:12 Pleura Gram Stain - Final 05/31/25 00:12 Pleura Routine Culture - Final No growth after 2 days 05/31/25 00:12 [place] Anaerobic Culture - Final NO GROWTH AFTER 5 DAYS 05/30/25 01:25 Blood - Venous Blood Culture - Final No growth after 5 days. 05/30/25 04:35 Blood - Venous Blood Culture - Final No growth after 5 days. Assessment and Plan (1) Recurrent right pleural effusion: Status: Acute (2) Loculated pleural effusion: Status: Acute (3) Malignant pleural effusion: Status: Acute Plan Impression: 65-year-old lady with bilateral malignant pleural effusions, status post left PleurX with drain occlusion, now status post tPA/DNA is will improvement of the flow, now also with recurrence of right-sided loculated pleural effusion. Recommendations: Suggest placement of right-sided chest tube versus PleurX for chemical decortication and further drainage. Procedures Date of Service Date of Service: 06/09/25
[2025-06-09 16:36] LABS: Glucose, Whole Blood 257 mg/dL (60-115)
[2025-06-09 20:34] LABS: Glucose, Whole Blood 164 mg/dL (60-115)
[2025-06-10] VITALS (18 sets, daily range): BP systolic 96–157; BP diastolic 52–92; PULSE 93–110; RESP 14–28; TEMP 35.9–37.3; O2SAT 91–98
[2025-06-10] MEDS: Albuterol/Iprat 2.5/0.5MG 3 ML AMPUL.NEB INHALE ×3 (05:15→19:46)
[2025-06-10 07:39] LABS: Glucose, Whole Blood 173 mg/dL (60-115)
[2025-06-10] MEDS: 0.9 % Sodium Chloride Flush 3 ML SYRINGE IVFLUSH ×3 (07:56→20:13)
[2025-06-10] MEDS: Insulin Glargine,Hum.rec.anlog 100 UNIT/ML 10 ML VIAL 40 UNIT SUBCUT (07:56)
--- NOTE | 2025-06-10 09:14 | P.PNIM_ITS ---
Subjective Subjective Date of Service: 06/10/25 Interval History: ongiong sob Physical Exam 2 Vital Signs: Vital Signs: Last Vital Signs Temp 98.7 F 06/10/25 08:00 Pulse 102 H 06/10/25 08:00 Resp 14 06/10/25 08:00 BP 141/72 H 06/10/25 08:00 Pulse Ox 95 06/10/25 08:00 O2 Del Method Nasal Cannula 06/10/25 08:00 O2 Flow Rate 2 06/10/25 08:00 FiO2 30 05/31/25 16:55 BMI result Body Mass Index 39.2 Const: General: no acute distress, alert and awake Eyes: Sclerae: sclerae normal EOM: EOMs intact bilaterally Neck: Neck: Yes no lymphadenopathy, Yes trachea midline and Yes supple Resp: Effort & Inspection: normal respiratory effort and no respiratory distress Auscultation: crackles (Bibasilar) Cardio: Rate: regular rate Rhythm: regular rhythm Heart sounds: no gallops, no murmurs and no rubs GI: Palpation (GI): Soft to palpation and Other GI palpation findings present ( Nontender) Auscultation: normal bowel sounds Extrem: General: Yes no pedal edema, No clubbing and No cyanosis Objective Data Active Medications Albuterol/Ipratropium (Albuterol/Iprat 2.5/0.5mg 3 Ml Ampul.Neb) 3 ml INHALE Q4H PRN PRN Reason: Wheezing Last Admin: 06/10/25 05:15 Dose: 3 ml Documented By: SHIVANI Aspirin (Aspirin Enteric Coated 81 Mg Tablet.) 81 mg PO DAILY [facility] On Hold: 06/09/25 12:26 Last Admin: 06/09/25 07:58 Dose: 81 mg Documented By: WILL Atorvastatin Calcium (Atorvastatin Calcium 80 Mg Tablet) 80 mg PO DAILY [facility] Last Admin: 06/10/25 07:55 Dose: 80 mg Documented By: RUBINA Benzocaine (Throat Lozenge, Medicated Lozenge) 1 lozenge MUCOUS MEM Q2H PRN PRN Reason: Sore Throat Dextrose (Dextrose 50 % 25 Gm/50 Ml Syringe) 25 gm IVPUSH Q15M PRN; Protocol PRN Reason: per Hypoglycemia Standing Ord. Enoxaparin Sodium (Enoxaparin Sodium 40 Mg/0.4 Ml Syringe) 40 mg SUBCUT Q24H [facility] Last Admin: 06/10/25 07:56 Dose: 40 mg Documented By: RUBINA Glucose (Glucose Gel 15 Gm Gel..Gram.) 15 gm PO Q15M PRN; Protocol PRN Reason: per Hypoglycemia Standing Ord. Hydromorphone HCl (Hydromorphone Hcl 1 Mg/Ml Syringe) 1 mg IVPUSH Q4H PRN; Protocol PRN Reason: Pain, Severe (Pain Scale 7-10) Last Admin: 06/10/25 06:49 Dose: 1 mg Documented By: RADHA Alteplase, Recombinant 10 mg/Dornase Pieter 5 mg/ Lidocaine HCl 10 ml/ Sodium Chloride 50 mls @ 0 mls/hr INTRAPLEUR BID [facility] Stop: 06/13/25 09:01 Insulin Glargine (Insulin Glargine,Hum.Rec.Anlog 100 Unit/Ml 10 Ml Vial) 40 unit SUBCUT DAILY [facility] Last Admin: 06/10/25 07:56 Dose: 40 unit Documented By: RUBINA Insulin Human Lispro (Insulin Lispro 100 Unit/Ml 3 Ml Vial) 0 unit SUBCUT QIDACHS [facility]; Protocol Last Admin: 06/10/25 07:57 Dose: 2 unit Documented By: RUBINA Olanzapine (Olanzapine 10 Mg Vial) 5 mg IM DAILY PRN PRN Reason: anxiety/restlessness Last Admin: 06/07/25 21:41 Dose: 5 mg Documented By: AL Omeprazole (Omeprazole 20 Mg Capsule.) 20 mg PO DAILY@0630 [facility] Last Admin: 06/10/25 06:45 Dose: 20 mg Documented By: RADHA Paroxetine HCl (Paroxetine Hcl 20 Mg Tablet) 20 mg PO DAILY [facility] Last Admin: 06/10/25 07:55 Dose: 20 mg Documented By: RUBINA Ropinirole HCl (Ropinirole Hcl 1 Mg Tablet) 1 mg PO BID [facility] Last Admin: 06/10/25 07:55 Dose: 1 mg Documented By: RUBINA Sodium Chloride (0.9 % Sodium Chloride Flush 3 Ml Syringe) 3 ml IVFLUSH QSHIFT [facility] Last Admin: 06/10/25 07:56 Dose: 3 ml Documented By: RUBINA Labs 06/06/25 06:50 06/06/25 08:52 Labs: Laboratory Results - last 24 hr 06/09/25 06/09/25 06/09/25 10:52 16:23 20:25 POC Glucose 268 H 257 H 164 H 06/10/25 07:34 POC Glucose 173 H Assessment and Plan (1) Pleural effusion: Status: Acute Plan 65F PMH stage IV breast cancer with malignant pleural effusion status post left- sided PleurX catheter, chronic hypoxic respiratory failure due to COPD on 2 L home O2, diabetes, chronic diastolic CHF, mood disorder, peripheral vascular disease presented with shortness of breath was admitted to the ICU on 05/30/2025 for rescue BiPAP, underwent chest tube placement on the right side and unclogging of left PleurX catheter. Was weaned down to baseline 2 L and downgraded on 06/03/2025. Acute on chronic hypoxic respiratory failure due to stage IV breast cancer with malignant pleural effusions bilaterally and clogged left-sided PleurX left pleurx unclogged and working, right chest tube fell out 06/08/25 back to 2L, but still dyspneic, ct chest with bilateral loculated effusion pulm appreciated, plan to replace right chest tube, chemical pleurodesis, and then exchange to pleurx continue to drain left pleurx as needed Diabetes continue with insulin sliding scale DVT prophylaxis with Lovenox Full code reason for continued hospitalization: sob Quality Stroke Does the patient have a stroke diagnosis?: No VTE Prior VTE?: No VTE Risk Level:: Medical - moderate - high VTE Device Contraindication: N/A - Device Ordered VTE Drug Contraindication: N/A - Med Ordered
--- NOTE | 2025-06-10 11:12 | MHC.CM.PN ---
EMR reviewed and per MD rounds, pt is not medically cleared for discharge due to management of bilateral loculated effusion, pending replacement of right chest tube and then pleurodesis.
[2025-06-10 11:36] LABS: Glucose, Whole Blood 172 mg/dL (60-115)
[2025-06-10] MEDS: diazePAM 10 MG/2 ML CARTRIDGE 5 MG IVPUSH (13:43)
[2025-06-10 16:19] LABS: Glucose, Whole Blood 174 mg/dL (60-115)
[2025-06-10 21:15] LABS: Glucose, Whole Blood 253 mg/dL (60-115)
[2025-06-10] MEDS: Alteplase Cath Clear 10 MG, Dornase Alfa 5 MG, Lidocaine HCl 2 % MPF 10 ML in 0.9 % Sod... 1000 MG INTRAPLEUR (22:54)
[2025-06-11] VITALS (11 sets, daily range): BP systolic 117–180; BP diastolic 57–88; PULSE 98–118; RESP 16–24; TEMP 35.8–36.7; O2SAT 93–97; BMI 40.4
[2025-06-11] MEDS: Albuterol/Iprat 2.5/0.5MG 3 ML AMPUL.NEB INHALE ×5 (04:06→23:45)
[2025-06-11] MEDS: guaiFENesin LA 600 MG TAB.ER.12H PO ×2 (04:43→20:19)
[2025-06-11 07:01] LABS: Hematocrit 32.7 % (37.0-47.0); Hemoglobin 10.8 g/dl (12.0-16.0); Mean Corpuscular HGB Conc 33.0 g/dl (31.0-35.0); Mean Corpuscular Hemoglobin 30.2 pg (27.0-33.0); Mean Corpuscular Volume 91.3 fL (80.0-98.0); NRBC Abs Auto 0.240 X10*3/uL (0.0-0.012); Platelet Count 270 X10*3/uL (160-400); Red Blood Count 3.58 X10*6/uL (4.20-5.50); White Blood Count 18.7 X10*3/uL (4.8-10.8)
[2025-06-11 07:07] LABS: NRBC Pct Auto 1.3 /100WBC (0.0-0.2)
[2025-06-11 07:16] LABS: Anion Gap 13 (12-20); Blood Urea Nitrogen 14 mg/dL (9-16); Calcium 8.8 mg/dL (8.4-10.2); Carbon Dioxide 25 mmol/L (22-29); Chloride 106 mmol/L (96-108); Creatinine Clr Calc Pharmacy 112.9; Estimated Glomerular Filt Rate > 60; Potassium 4.5 mmol/L (3.3-5.1); Sodium 139 mmol/L (135-145)
[2025-06-11 07:27] LABS: Glucose, Whole Blood 220 mg/dL (60-115)
[2025-06-11] MEDS: Insulin Glargine,Hum.rec.anlog 100 UNIT/ML 10 ML VIAL 40 UNIT SUBCUT (07:43)
[2025-06-11] MEDS: 0.9 % Sodium Chloride Flush 3 ML SYRINGE IVFLUSH ×2 (07:51→20:20)
--- NOTE | 2025-06-11 10:17 | P.PNIM_ITS ---
Subjective Subjective Date of Service: 06/11/25 Interval History: ongiong sob Physical Exam 2 Vital Signs: Vital Signs: Last Vital Signs Temp 97.5 F 06/11/25 07:18 Pulse 101 H 06/11/25 07:18 Resp 18 06/11/25 07:18 BP 134/61 06/11/25 07:18 Pulse Ox 94 06/11/25 07:18 O2 Del Method Nasal Cannula 06/11/25 07:18 O2 Flow Rate 3 06/11/25 07:18 FiO2 30 05/31/25 16:55 BMI result Body Mass Index 40.4 Const: General: no acute distress, alert and awake Eyes: Sclerae: sclerae normal EOM: EOMs intact bilaterally Neck: Neck: Yes no lymphadenopathy, Yes trachea midline and Yes supple Resp: Effort & Inspection: normal respiratory effort and no respiratory distress Auscultation: crackles (Bibasilar) Cardio: Rate: regular rate Rhythm: regular rhythm Heart sounds: no gallops, no murmurs and no rubs GI: Palpation (GI): Soft to palpation and Other GI palpation findings present ( Nontender) Auscultation: normal bowel sounds Extrem: General: Yes no pedal edema, No clubbing and No cyanosis Objective Data Active Medications Albuterol/Ipratropium (Albuterol/Iprat 2.5/0.5mg 3 Ml Ampul.Neb) 3 ml INHALE Q4H PRN PRN Reason: Wheezing Last Admin: 06/11/25 04:06 Dose: 3 ml Documented By: CHRIS Aspirin (Aspirin Enteric Coated 81 Mg Tablet.) 81 mg PO DAILY [facility] On Hold: 06/09/25 12:26 Last Admin: 06/09/25 07:58 Dose: 81 mg Documented By: WILL Atorvastatin Calcium (Atorvastatin Calcium 80 Mg Tablet) 80 mg PO DAILY [facility] Last Admin: 06/11/25 07:42 Dose: 80 mg Documented By: LENY Benzocaine (Throat Lozenge, Medicated Lozenge) 1 lozenge MUCOUS MEM Q2H PRN PRN Reason: Sore Throat Dextrose (Dextrose 50 % 25 Gm/50 Ml Syringe) 25 gm IVPUSH Q15M PRN; Protocol PRN Reason: per Hypoglycemia Standing Ord. Enoxaparin Sodium (Enoxaparin Sodium 40 Mg/0.4 Ml Syringe) 40 mg SUBCUT Q24H [facility] Last Admin: 06/11/25 07:42 Dose: 40 mg Documented By: LENY Glucose (Glucose Gel 15 Gm Gel..Gram.) 15 gm PO Q15M PRN; Protocol PRN Reason: per Hypoglycemia Standing Ord. Guaifenesin (Guaifenesin La 600 Mg Tab.Er.12h) 600 mg PO BID [facility] Last Admin: 06/11/25 04:43 Dose: 600 mg Documented By: CHRIS Hydromorphone HCl (Hydromorphone Hcl 1 Mg/Ml Syringe) 1 mg IVPUSH Q4H PRN; Protocol PRN Reason: Pain, Severe (Pain Scale 7-10) Last Admin: 06/10/25 21:35 Dose: 1 mg Documented By: CHRIS Alteplase, Recombinant 10 mg/Dornase Pieter 5 mg/ Lidocaine HCl 10 ml/ Sodium Chloride 50 mls @ 0 mls/hr INTRAPLEUR BID [facility] Stop: 06/13/25 09:01 Last Admin: 06/10/25 22:54 Dose: 1,000 mls/hr Documented By: CHRIS Comments: given by ALKA Barragan at bedside Insulin Glargine (Insulin Glargine,Hum.Rec.Anlog 100 Unit/Ml 10 Ml Vial) 40 unit SUBCUT DAILY [facility] Last Admin: 06/11/25 07:43 Dose: 40 unit Documented By: LENY Insulin Human Lispro (Insulin Lispro 100 Unit/Ml 3 Ml Vial) 0 unit SUBCUT QIDACHS [facility]; Protocol Last Admin: 06/11/25 07:42 Dose: 4 unit Documented By: LENY Olanzapine (Olanzapine 10 Mg Vial) 5 mg IM DAILY PRN PRN Reason: anxiety/restlessness Last Admin: 06/07/25 21:41 Dose: 5 mg Documented By: AL Omeprazole (Omeprazole 20 Mg Capsule.Dr) 20 mg PO DAILY@0630 [facility] Last Admin: 06/11/25 05:07 Dose: 20 mg Documented By: CHRIS Paroxetine HCl (Paroxetine Hcl 20 Mg Tablet) 20 mg PO DAILY [facility] Last Admin: 06/11/25 07:42 Dose: 20 mg Documented By: LENY Ropinirole HCl (Ropinirole Hcl 1 Mg Tablet) 1 mg PO BID [facility] Last Admin: 06/11/25 07:42 Dose: 1 mg Documented By: LENY Sodium Chloride (0.9 % Sodium Chloride Flush 3 Ml Syringe) 3 ml IVFLUSH QSHIFT [facility] Last Admin: 06/11/25 07:51 Dose: 3 ml Documented By: LENY Labs 06/11/25 06:29 06/11/25 06:29 Labs: Laboratory Results - last 24 hr 06/10/25 06/10/25 06/10/25 11:13 16:15 21:07 MCV MCH MCHC RDW Plt Count MPV Absolute Nucleated RBC Nucleated RBC % (auto) Anion Gap Estim Creat Clear Calc Estimated GFR POC Glucose 172 H 174 H 253 H Random Glucose Calcium 06/11/25 06/11/25 06:29 07:22 MCV 91.3 MCH 30.2 MCHC 33.0 RDW 15.6 Plt Count 270 MPV 10.9 Absolute Nucleated RBC 0.240 H Nucleated RBC % (auto) 1.3 H Anion Gap 13 Estim Creat Clear Calc 112.9 Estimated GFR > 60 POC Glucose 220 H Random Glucose 234 H Calcium 8.8 Assessment and Plan (1) Pleural effusion: Status: Acute Plan 65F PMH stage IV breast cancer with malignant pleural effusion status post left- sided PleurX catheter, chronic hypoxic respiratory failure due to COPD on 2 L home O2, diabetes, chronic diastolic CHF, mood disorder, peripheral vascular disease presented with shortness of breath was admitted to the ICU on 05/30/2025 for rescue BiPAP, underwent chest tube placement on the right side and unclogging of left PleurX catheter. Was weaned down to baseline 2 L and downgraded on 06/03/2025. Acute on chronic hypoxic respiratory failure due to stage IV breast cancer with malignant pleural effusions bilaterally and clogged left-sided PleurX left pleurx unclogged and working, right chest tube fell out 06/08/25 back to 2L, but still dyspneic, ct chest with bilateral loculated effusion pulm appreciated, replaced right chest tube, chemical pleurodesis, and then exchange to pleurx continue to drain left pleurx as needed Diabetes continue with insulin sliding scale DVT prophylaxis with Lovenox Full code reason for continued hospitalization: sob Quality Stroke Does the patient have a stroke diagnosis?: No VTE Prior VTE?: No VTE Risk Level:: Medical - moderate - high VTE Device Contraindication: N/A - Device Ordered VTE Drug Contraindication: N/A - Med Ordered
[2025-06-11 11:44] LABS: Glucose, Whole Blood 222 mg/dL (60-115)
[2025-06-11] MEDS: Alteplase Cath Clear 10 MG, Dornase Alfa 5 MG, Lidocaine HCl 2 % MPF 10 ML in 0.9 % Sod... INTRAPLEUR (12:35)
[2025-06-11 16:34] LABS: Glucose, Whole Blood 356 mg/dL (60-115)
[2025-06-11 16:40] LABS: Venous Blood Gas Refer to POC result
[2025-06-11 16:41] LABS: VBG HCO3 26 mmol/L (22-26); VBG O2 % Saturation 79.0 %
[2025-06-11] MEDS: Furosemide 40 MG/4 ML VIAL IVPUSH (17:46)
[2025-06-11 20:10] LABS: Glucose, Whole Blood 251 mg/dL (60-115)
[2025-06-11] MEDS: Alteplase Cath Clear 10 MG, Dornase Alfa 5 MG, Lidocaine HCl 2 % MPF 10 ML in 0.9 % Sod... 500 MG INTRAPLEUR (22:15)
[2025-06-12] VITALS (10 sets, daily range): BP systolic 126–160; BP diastolic 58–78; PULSE 80–108; RESP 18–22; TEMP 36.1–37; O2SAT 91–96; BMI 40.0
[2025-06-12] MEDS: Albuterol/Iprat 2.5/0.5MG 3 ML AMPUL.NEB INHALE ×4 (03:56→20:50)
[2025-06-12 07:25] LABS: Hematocrit 33.5 % (37.0-47.0); Hemoglobin 11.0 g/dl (12.0-16.0); Mean Corpuscular HGB Conc 32.8 g/dl (31.0-35.0); Mean Corpuscular Hemoglobin 30.4 pg (27.0-33.0); Mean Corpuscular Volume 92.5 fL (80.0-98.0); NRBC Abs Auto 0.180 X10*3/uL (0.0-0.012); Platelet Count 273 X10*3/uL (160-400); Red Blood Count 3.62 X10*6/uL (4.20-5.50); White Blood Count 18.5 X10*3/uL (4.8-10.8)
[2025-06-12 07:28] LABS: Glucose, Whole Blood 217 mg/dL (60-115)
[2025-06-12 07:32] LABS: NRBC Pct Auto 1.0 /100WBC (0.0-0.2)
[2025-06-12 07:40] LABS: Anion Gap 14 (12-20); Blood Urea Nitrogen 15 mg/dL (9-16); Calcium 9.3 mg/dL (8.4-10.2); Carbon Dioxide 26 mmol/L (22-29); Chloride 106 mmol/L (96-108); Creatinine Clr Calc Pharmacy 103.5; Estimated Glomerular Filt Rate > 60; Magnesium 1.6 mg/dL (1.6-2.6); Potassium 4.3 mmol/L (3.3-5.1); Sodium 142 mmol/L (135-145)
[2025-06-12] MEDS: guaiFENesin LA 600 MG TAB.ER.12H PO ×2 (07:55→20:32)
[2025-06-12] MEDS: Insulin Glargine,Hum.rec.anlog 100 UNIT/ML 10 ML VIAL 40 UNIT SUBCUT (07:56)
[2025-06-12] MEDS: 0.9 % Sodium Chloride Flush 3 ML SYRINGE IVFLUSH ×3 (08:07→20:34)
--- NOTE | 2025-06-12 09:19 | P.PNIM_ITS ---
Subjective Subjective Date of Service: 06/12/25 Interval History: sob Physical Exam 2 Exam: Exam: General: AO X 3, ill appearing, tachypneic Resp: dimisnhhed bilateral, accessory muscles used CVS: S1,S2,RRR GI: soft, non tender, non distended Neuro: motor grossly intact, alert Psych: appropriate affect, appropriate insight Vital Signs: Vital Signs: Last Vital Signs Temp 96.9 F 06/12/25 07:06 Pulse 100 06/12/25 07:06 Resp 20 06/12/25 07:06 BP 126/58 L 06/12/25 07:06 Pulse Ox 95 06/12/25 07:06 O2 Del Method Nasal Cannula 06/12/25 07:06 O2 Flow Rate 3 06/12/25 07:06 FiO2 30 05/31/25 16:55 BMI result Body Mass Index 40.0 Objective Data Active Medications Albuterol/Ipratropium (Albuterol/Iprat 2.5/0.5mg 3 Ml Ampul.Neb) 3 ml INHALE Q4H PRN PRN Reason: Wheezing Last Admin: 06/12/25 03:56 Dose: 3 ml Documented By: NIGEL Aspirin (Aspirin Enteric Coated 81 Mg Tablet.) 81 mg PO DAILY [facility] On Hold: 06/09/25 12:26 Last Admin: 06/09/25 07:58 Dose: 81 mg Documented By: WILL Atorvastatin Calcium (Atorvastatin Calcium 80 Mg Tablet) 80 mg PO DAILY [facility] Last Admin: 06/12/25 07:55 Dose: 80 mg Documented By: WILL Benzocaine (Throat Lozenge, Medicated Lozenge) 1 lozenge MUCOUS MEM Q2H PRN PRN Reason: Sore Throat Dextrose (Dextrose 50 % 25 Gm/50 Ml Syringe) 25 gm IVPUSH Q15M PRN; Protocol PRN Reason: per Hypoglycemia Standing Ord. Enoxaparin Sodium (Enoxaparin Sodium 40 Mg/0.4 Ml Syringe) 40 mg SUBCUT Q24H [facility] Last Admin: 06/12/25 07:56 Dose: 40 mg Documented By: WILL Glucose (Glucose Gel 15 Gm Gel..Gram.) 15 gm PO Q15M PRN; Protocol PRN Reason: per Hypoglycemia Standing Ord. Guaifenesin (Guaifenesin La 600 Mg Tab.Er.12h) 600 mg PO BID [facility] Last Admin: 06/12/25 07:55 Dose: 600 mg Documented By: WILL Hydromorphone HCl (Hydromorphone Hcl 1 Mg/Ml Syringe) 1 mg IVPUSH Q4H PRN; Protocol PRN Reason: Pain, Severe (Pain Scale 7-10) Last Admin: 06/12/25 04:52 Dose: 1 mg Documented By: SARIKA Alteplase, Recombinant 10 mg/Dornase Pieter 5 mg/ Lidocaine HCl 10 ml/ Sodium Chloride 50 mls @ 0 mls/hr INTRAPLEUR BID [facility] Stop: 06/13/25 09:01 Last Admin: 06/11/25 22:15 Dose: 500 mls/hr Documented By: SARIKA Comments: Administered by provider Insulin Glargine (Insulin Glargine,Hum.Rec.Anlog 100 Unit/Ml 10 Ml Vial) 40 unit SUBCUT DAILY [facility] Last Admin: 06/12/25 07:56 Dose: 40 unit Documented By: WILL Insulin Human Lispro (Insulin Lispro 100 Unit/Ml 3 Ml Vial) 0 unit SUBCUT QIDACHS [facility]; Protocol Last Admin: 06/12/25 07:56 Dose: 6 unit Documented By: IWLL Lorazepam (Lorazepam 0.5 Mg Tablet) 0.5 mg PO Q8H PRN PRN Reason: Anxiety Last Admin: 06/11/25 15:08 Dose: 0.5 mg Documented By: LENY Olanzapine (Olanzapine 10 Mg Vial) 5 mg IM DAILY PRN PRN Reason: anxiety/restlessness Last Admin: 06/07/25 21:41 Dose: 5 mg Documented By: AL Omeprazole (Omeprazole 20 Mg Capsule.) 20 mg PO DAILY@0630 [facility] Last Admin: 06/12/25 05:36 Dose: 20 mg Documented By: SARIKA Paroxetine HCl (Paroxetine Hcl 20 Mg Tablet) 20 mg PO DAILY [facility] Last Admin: 06/12/25 07:55 Dose: 20 mg Documented By: WILL Ropinirole HCl (Ropinirole Hcl 1 Mg Tablet) 1 mg PO BID [facility] Last Admin: 06/12/25 07:55 Dose: 1 mg Documented By: WILL Sodium Chloride (0.9 % Sodium Chloride Flush 3 Ml Syringe) 3 ml IVFLUSH QSHIFT [facility] Last Admin: 06/12/25 08:07 Dose: 3 ml Documented By: WILL Labs 06/12/25 07:00 06/12/25 07:00 Labs: Laboratory Results - last 24 hr 06/11/25 06/11/25 06/11/25 11:39 16:31 16:37 MCV MCH MCHC RDW Plt Count MPV Absolute Nucleated RBC Nucleated RBC % (auto) VBG pH 7.46 H VBG pCO2 36 VBG pO2 49 VBG HCO3 26 VBG O2 Saturation 79.0 VBG Base Excess 3.2 Anion Gap Estim Creat Clear Calc Estimated GFR POC Glucose 222 H 356 H* Random Glucose Calcium Magnesium 06/11/25 06/12/25 06/12/25 20:00 07:00 07:08 MCV 92.5 MCH 30.4 MCHC 32.8 RDW 15.8 Plt Count 273 MPV 11.1 Absolute Nucleated RBC 0.180 H Nucleated RBC % (auto) 1.0 H VBG pH VBG pCO2 VBG pO2 VBG HCO3 VBG O2 Saturation VBG Base Excess Anion Gap 14 Estim Creat Clear Calc 103.5 Estimated GFR > 60 POC Glucose 251 H 217 H Random Glucose 228 H Calcium 9.3 Magnesium 1.6 Assessment and Plan (1) Acute hypoxemic respiratory failure: Status: Acute (2) Pleural effusion: Status: Acute Plan 65F PMH stage IV breast cancer with malignant pleural effusion status post left- sided PleurX catheter, chronic hypoxic respiratory failure due to COPD on 2 L home O2, diabetes, chronic diastolic CHF, mood disorder, peripheral vascular disease presented with shortness of breath was admitted to the ICU on 05/30/2025 for rescue BiPAP, underwent chest tube placement on the right side and unclogging of left PleurX catheter. Was weaned down to baseline 2 L and downgraded on 06/03/2025. Acute on chronic hypoxic respiratory failure due to stage IV breast cancer with malignant loculated pleural effusions bilaterally and clogged left-sided PleurX left pleurx unclogged and working, right chest tube fell out 06/08/25, replaced 06/10/25 back to 2L, but still dyspneic, pulm appreciated, chemical pleurodesis, and then exchange right side to pleurx continue to drain left pleurx as needed Diabetes continue with insulin sliding scale DVT prophylaxis with Lovenox Full code reason for continued hospitalization: sob Quality Stroke Does the patient have a stroke diagnosis?: No VTE Prior VTE?: No VTE Risk Level:: Medical - moderate - high VTE Device Contraindication: N/A - Device Ordered VTE Drug Contraindication: N/A - Med Ordered
--- NOTE | 2025-06-12 10:31 | MHC.CM.PN ---
EMR reviewed and per MD rounds, pt is not medically cleared for discharge due to management of pleural effusions, chest tube in place, awaiting PleurX replacement.
[2025-06-12] MEDS: Alteplase Cath Clear 10 MG, Dornase Alfa 5 MG, Lidocaine HCl 2 % MPF 10 ML in 0.9 % Sod... INTRAPLEUR ×2 (11:24→22:23)
[2025-06-12 11:26] LABS: Glucose, Whole Blood 146 mg/dL (60-115)
[2025-06-12 15:58] LABS: Glucose, Whole Blood 206 mg/dL (60-115)
[2025-06-12 20:29] LABS: Glucose, Whole Blood 295 mg/dL (60-115)
[2025-06-13] VITALS (9 sets, daily range): BP systolic 113–152; BP diastolic 60–87; PULSE 99–110; RESP 18–24; TEMP 36.2–37; O2SAT 92–97; BMI 38.4
[2025-06-13] MEDS: Albuterol/Iprat 2.5/0.5MG 3 ML AMPUL.NEB INHALE ×3 (06:24→19:32)
--- NOTE | 2025-06-13 06:29 | PC.NURSE ---
Pt dressing completely saturated at start of shift, dressing changed required as site is leaking post alteplase. At approx 0200am, dressing and bed noted to be saturated once again, linens and dressing changed. Chest tube collection chamber changed as output was noted in all 3 chambers at start of shift. Less than 5mL of output after chamber was changed and end of this shift. No crepitus noted to insertion site. Pt experiencing increased WOB. O2 sats WNL during this shift. Dr Gunter notified of these observations. Pt remains stable at this time.
[2025-06-13 07:34] LABS: Hematocrit 32.7 % (37.0-47.0); Hemoglobin 10.5 g/dl (12.0-16.0); Mean Corpuscular HGB Conc 32.1 g/dl (31.0-35.0); Mean Corpuscular Hemoglobin 30.1 pg (27.0-33.0); Mean Corpuscular Volume 93.7 fL (80.0-98.0); NRBC Abs Auto 0.210 X10*3/uL (0.0-0.012); Platelet Count 263 X10*3/uL (160-400); Red Blood Count 3.49 X10*6/uL (4.20-5.50); White Blood Count 16.0 X10*3/uL (4.8-10.8)
[2025-06-13 07:41] LABS: NRBC Pct Auto 1.3 /100WBC (0.0-0.2)
[2025-06-13 07:43] LABS: Anion Gap 15 (12-20); Blood Urea Nitrogen 15 mg/dL (9-16); Calcium 9.3 mg/dL (8.4-10.2); Carbon Dioxide 27 mmol/L (22-29); Chloride 106 mmol/L (96-108); Creatinine Clr Calc Pharmacy 99.8; Estimated Glomerular Filt Rate > 60; Magnesium 1.7 mg/dL (1.6-2.6); Potassium 4.8 mmol/L (3.3-5.1); Sodium 143 mmol/L (135-145)
[2025-06-13 08:06] LABS: Glucose, Whole Blood 186 mg/dL (60-115)
[2025-06-13] MEDS: guaiFENesin LA 600 MG TAB.ER.12H PO ×2 (09:12→20:36)
[2025-06-13] MEDS: Insulin Glargine,Hum.rec.anlog 100 UNIT/ML 10 ML VIAL 40 UNIT SUBCUT (09:12)
[2025-06-13] MEDS: 0.9 % Sodium Chloride Flush 3 ML SYRINGE IVFLUSH ×3 (09:14→20:46)
--- NOTE | 2025-06-13 11:03 | P.PNIM_ITS ---
Subjective Subjective Date of Service: 06/13/25 Interval History: Seen and examined this morning Follow-up for shortness of breath, pleural effusions Patient reporting ongoing dyspnea Review of Systems Review of Systems: Yes all other systems are reviewed and are negative Constitutional Constitutional: Denies chills and Denies fever(s) Cardiovascular Cardiovascular: Denies chest pain, Denies palpitations and Reports dyspnea Respiratory Respiratory: Reports dyspnea Endocrine Endocrine: Denies palpitations Physical Exam 2 Vital Signs: Vital Signs: Last Vital Signs Temp 97.7 F 06/13/25 10:51 Pulse 102 H 06/13/25 10:51 Resp 20 06/13/25 10:51 BP 129/77 06/13/25 10:51 Pulse Ox 94 06/13/25 10:51 O2 Del Method Nasal Cannula 06/13/25 10:51 O2 Flow Rate 3 06/13/25 10:51 FiO2 30 05/31/25 16:55 BMI result Body Mass Index 38.4 Const: General: alert and awake Nutritional Appearance: obese O rientation/consciousness: patient oriented x3 Resp: Other: diminished breath sounds bilaterally Cardio: Rate: tachycardic GI: Inspection: No distended Neuro: Other: grossly nonfocal General: patient oriented x3 Objective Data Active Medications Albuterol/Ipratropium (Albuterol/Iprat 2.5/0.5mg 3 Ml Ampul.Neb) 3 ml INHALE Q4H PRN PRN Reason: Wheezing Last Admin: 06/13/25 06:24 Dose: 3 ml Documented By: GINI Aspirin (Aspirin Enteric Coated 81 Mg Tablet.) 81 mg PO DAILY [facility] On Hold: 06/09/25 12:26 Last Admin: 06/09/25 07:58 Dose: 81 mg Documented By: WILL Atorvastatin Calcium (Atorvastatin Calcium 80 Mg Tablet) 80 mg PO DAILY [facility] Last Admin: 06/13/25 09:12 Dose: 80 mg Documented By: WILL Benzocaine (Throat Lozenge, Medicated Lozenge) 1 lozenge MUCOUS MEM Q2H PRN PRN Reason: Sore Throat Dextrose (Dextrose 50 % 25 Gm/50 Ml Syringe) 25 gm IVPUSH Q15M PRN; Protocol PRN Reason: per Hypoglycemia Standing Ord. Enoxaparin Sodium (Enoxaparin Sodium 40 Mg/0.4 Ml Syringe) 40 mg SUBCUT Q24H [facility] Last Admin: 06/13/25 09:12 Dose: 40 mg Documented By: WILL Glucose (Glucose Gel 15 Gm Gel..Gram.) 15 gm PO Q15M PRN; Protocol PRN Reason: per Hypoglycemia Standing Ord. Guaifenesin (Guaifenesin La 600 Mg Tab.Er.12h) 600 mg PO BID [facility] Last Admin: 06/13/25 09:12 Dose: 600 mg Documented By: WILL Hydromorphone HCl (Hydromorphone Hcl 1 Mg/Ml Syringe) 1 mg IVPUSH Q4H PRN; Protocol PRN Reason: Pain, Severe (Pain Scale 7-10) Last Admin: 06/12/25 22:09 Dose: 1 mg Documented By: DALILA Insulin Glargine (Insulin Glargine,Hum.Rec.Anlog 100 Unit/Ml 10 Ml Vial) 40 unit SUBCUT DAILY [facility] Last Admin: 06/13/25 09:12 Dose: 40 unit Documented By: WILL Insulin Human Lispro (Insulin Lispro 100 Unit/Ml 3 Ml Vial) 0 unit SUBCUT QIDACHS [facility]; Protocol Last Admin: 06/13/25 09:12 Dose: 2 unit Documented By: WILL Lorazepam (Lorazepam 0.5 Mg Tablet) 0.5 mg PO Q8H PRN PRN Reason: Anxiety Last Admin: 06/13/25 06:20 Dose: 0.5 mg Documented By: DALILA Olanzapine (Olanzapine 10 Mg Vial) 5 mg IM DAILY PRN PRN Reason: anxiety/restlessness Last Admin: 06/07/25 21:41 Dose: 5 mg Documented By: AL Omeprazole (Omeprazole 20 Mg Capsule.) 20 mg PO DAILY@0630 [facility] Last Admin: 06/13/25 06:20 Dose: 20 mg Documented By: DALILA Paroxetine HCl (Paroxetine Hcl 20 Mg Tablet) 20 mg PO DAILY [facility] Last Admin: 06/13/25 09:12 Dose: 20 mg Documented By: WILL Ropinirole HCl (Ropinirole Hcl 1 Mg Tablet) 1 mg PO BID [facility] Last Admin: 06/13/25 09:12 Dose: 1 mg Documented By: WILL Sodium Chloride (0.9 % Sodium Chloride Flush 3 Ml Syringe) 3 ml IVFLUSH QSHIFT [facility] Last Admin: 06/13/25 09:14 Dose: 3 ml Documented By: WILL Labs 06/13/25 07:24 06/13/25 07:24 Labs: Laboratory Results - last 24 hr 06/12/25 06/12/25 06/12/25 11:12 15:50 20:26 MCV MCH MCHC RDW Plt Count MPV Absolute Nucleated RBC Nucleated RBC % (auto) Anion Gap Estim Creat Clear Calc Estimated GFR POC Glucose 146 H 206 H 295 H Random Glucose Calcium Magnesium 06/13/25 06/13/25 07:24 07:35 MCV 93.7 MCH 30.1 MCHC 32.1 RDW 15.9 Plt Count 263 MPV 10.8 Absolute Nucleated RBC 0.210 H Nucleated RBC % (auto) 1.3 H Anion Gap 15 Estim Creat Clear Calc 99.8 Estimated GFR > 60 POC Glucose 186 H Random Glucose 200 H Calcium 9.3 Magnesium 1.7 Assessment and Plan (1) Malignant pleural effusion: Status: Acute (2) HER2-positive carcinoma of breast: Status: Acute Plan 65F PMH stage IV breast cancer with malignant pleural effusion status post left- sided PleurX catheter, chronic hypoxic respiratory failure due to COPD on 2 L home O2, diabetes, chronic diastolic CHF, mood disorder, peripheral vascular disease presented with shortness of breath was admitted to the ICU on 05/30/2025 for rescue BiPAP, underwent chest tube placement on the right side and unclogging of left PleurX catheter. Was weaned down to baseline 2 L and downgraded on 06/03/2025. Acute on chronic hypoxic respiratory failure due to stage IV breast cancer with malignant loculated pleural effusions bilaterally and clogged left-sided PleurX left pleurx unclogged and working, right chest tube fell out 06/08/25, replaced 06/10/25 on 3L [place], but still dyspneic pulm appreciated, chemical pleurodesis, and then exchange right side to pleurx continue to drain left pleurx as needed repeat CT scan pending Diabetes continue Lantus, insulin sliding scale HTN HCTZ, norvasc, clonidine on hold resume as indicated HLD statin Mood continue baseline meds Obesity class II weight loss encouraged DVT prophylaxis with Lovenox Full code reason for continued hospitalization: sob Quality Stroke Does the patient have a stroke diagnosis?: No VTE Prior VTE?: No VTE Risk Level:: Medical - moderate - high VTE Device Contraindication: N/A - Device Ordered VTE Drug Contraindication: N/A - Med Ordered
[2025-06-13 11:20] LABS: Glucose, Whole Blood 273 mg/dL (60-115)
--- NOTE | 2025-06-13 13:44 | PC.NURSE ---
Addendum entered by Paola Nieves RN 06/13/25 14:03: Attending Nicole Scott NOT Nkechi Hernandez. Original Note: 12:00 RN to bedside to observe Dr. Garland w/ medication administration. MD attempted to give med. Med leaked out. MD lifted dressing, chest tube was detached for unknown duration. Xeroform and dry dressing applied. This RN and Dr Garland notified attending Nkechi Hernandez. Pt sent down to CT. VS stable at this time.
[2025-06-13 16:15] LABS: Glucose, Whole Blood 268 mg/dL (60-115)
--- NOTE | 2025-06-13 16:18 | P.DS_ITS ---
DS: Providers Provider Date of Service: 06/13/25 Date of admission: 05/30/25 08:52 Date of discharge: 06/13/25 Primary care physician: Concepción Reyes MD Consults: 06/09/25 10:28 Consult to Pulmonology Routine Consulting Provider: [facility] [place] Pulmonology Services Reason for consultation: loculated effusions Attending physician on discharge: Adrian Dixon Discharging clinician: Cara Scott DS: Diagnosis Discharge Diagnosis (1) Malignant pleural effusion: Status: Acute (2) HER2-positive carcinoma of breast: Status: Acute DS: Summary Hospital Course Hospital Course: From H&P on the day of admission 65 years old lady with past medical history of stage IV breast cancer with malignant pleural effusions status post PleurX catheter placement on the left, chronic hypoxic respiratory failure due to COPD on 2 L home O2, DM, chronic diastolic CHF, mood disorder, peripheral vascular disease with multiple admissions for shortness of breath due to CHF, postobstructive pneumonia, pleural effusions over the last 2 months presents to the ED with shortness of breath. She received neoadjuvant chemotherapy with TCHP for 6 cycles followed by left simple mastectomy in November 2022. She received letrozole and Enhertu in the adjuvant setting between January 2023 until September 2023. After 11 cycles and Enhertu was stopped because of significant peripheral neuropathy. She has been maintained on letrozole. She had a left-sided PleurX catheter placed on 05/06/2025 which usually drained around 300-500 cc but 10 days ago it drained 200 cc and since then it has stopped draining. She also has a right-sided pleural effusion, it was tried to do a right side PleurX catheter last time but there was not enough fluid so was differed. Today she presents to the ED with acute onset shortness of breath, present at rest, exacerbated by activity, no relieving factors, placed on BiPAP support and could not come off of BiPAP so MICU was consulted for admission. 65F PMH stage IV breast cancer with malignant pleural effusion status post left- sided PleurX catheter, chronic hypoxic respiratory failure due to COPD on 2 L home O2, diabetes, chronic diastolic CHF, mood disorder, peripheral vascular disease presented with shortness of breath was admitted to the ICU on 05/30/2025 for rescue BiPAP, underwent chest tube placement on the right side and unclogging of left PleurX catheter with multiple rounds of tpa. Was weaned down to baseline 2 L and downgraded on 06/03/2025. Acute on chronic hypoxic respiratory failure due to stage IV breast cancer with malignant loculated pleural effusions bilaterally and clogged left-sided PleurX left pleurx unclogged and working, right chest tube fell out 06/08/25, replaced 06/10/25, subsequently came out again 06/13 On 2 L of supplemental oxygen at baseline, currently requiring 3 L NC but remains dyspneic. Pulmonology has been following the patient, status post tpa/dornase 6 doses. left pleurx continues to drain. Chest CT from 06/13 with increasing bilateral disease, recommended surgical intervention. She has been accepted in transfer at [facility] to the medical service with probable consultation by Interventional pulmonology versus thoracic surgery. Time Attestation Discharge Coordination Time (in mins): 36 Quality: Safe Use of Opioids Does Pt have an Active Cancer Diagnosis on the Problem List?: Yes Opioid Measure Date for [facility] Report: 05/15/25 Opioid Measure Time for [facility] Report: 06:54 Quality: Stroke Does the patient have a stroke diagnosis?: No Physical Exam Vital Signs: Vital Signs: Last Vital Signs Temp 97.7 F 06/13/25 15:23 Pulse 108 H 06/13/25 15:23 Resp 22 H 06/13/25 15:23 BP 116/81 06/13/25 15:23 Pulse Ox 92 06/13/25 15:23 O2 Del Method Nasal Cannula 06/13/25 15:23 O2 Flow Rate 3 06/13/25 15:23 FiO2 30 05/31/25 16:55 BMI result Body Mass Index 38.4 Const: General: cooperative, comfortable, no acute distress, alert and awake Orientation/consciousness: patient oriented x3 Resp: Other: Tachypneic, diminished b/l left side plurex in place Cardio: Rate: regular rate Neuro: General: patient oriented x3 DS: Data Data Completed and Pending Completed studies during hospitalization [Text1]: Procedures Drainage of Left Pleural Cavity with Drainage Device, Percutaneous Approach (05/04/25) Drainage of Peritoneal Cavity, Percutaneous Approach (05/22/25) Drainage of Right Pleural Cavity with Drainage Device, Percutaneous Approach (04/22/25) Labs on day of discharge: Laboratory Results - last 24 hr 06/12/25 06/13/25 06/13/25 20:26 07:24 07:35 WBC 16.0 H RBC 3.49 L Hgb 10.5 L Hct 32.7 L MCV 93.7 MCH 30.1 MCHC 32.1 RDW 15.9 Plt Count 263 MPV 10.8 Absolute Nucleated RBC 0.210 H Nucleated RBC % (auto) 1.3 H Sodium 143 Potassium 4.8 Chloride 106 Carbon Dioxide 27 Anion Gap 15 BUN 15 Creatinine 0.66 Estim Creat Clear Calc 99.8 Estimated GFR > 60 POC Glucose 295 H 186 H Random Glucose 200 H Calcium 9.3 Magnesium 1.7 06/13/25 06/13/25 10:58 16:04 WBC RBC Hgb Hct MCV MCH MCHC RDW Plt Count MPV Absolute Nucleated RBC Nucleated RBC % (auto) Sodium Potassium Chloride Carbon Dioxide Anion Gap BUN Creatinine Estim Creat Clear Calc Estimated GFR POC Glucose 273 H 268 H Random Glucose Calcium Magnesium Discharge Plan Discharge Anticipated Discharge Date/Time: 06/14/25 04:25 Patient Disposition: Xfer [facility] Discharge Diagnosis: acute on chronic respiratory failure recurrent b/l malignant pleural effusions Referrals: Eric,Concepción Browne MD [Primary Care Provider, Internal Medicine] - 1 Week Discharge Medications: New insulin glargine [Lantus U-100 Insulin] 100 unit/mL Solution 40 unit subcut DAILY Qty: 10 0RF insulin lispro [Admelog U-100 Insulin lispro] 100 unit/mL Solution See Protocol subcut QIDACHS Qty: 3 0RF Protocol: Insulin Correction Scale Less than or equal to 110 ---- Give (units): 0 111 to 150 Give (units): 0 151 to 200 Give (units): 2 201 to 250 Give (units): 4 251 to 300 Give (units): 6 301 to 350 Give (units): 8 Greater than 350 Give (units): 10 Call MD if Blood Glucose > : 350 guaifenesin [Mucinex] 600 mg Tablet Extended Release 12hr 600 mg PO BID Qty: 7 0RF Continued paroxetine HCl 20 mg tablet 20 mg PO DAILY 90 Days Qty: 90 5RF ropinirole 1 mg tablet 1 mg PO BID Qty: 180 8RF letrozole 2.5 mg Tablet 2.5 mg PO DAILY Qty: 90 12RF Anoro Ellipta 62.5-25 mcg/actuation blister with device 1 inh inhalation DAILY Qty: 60 12RF oxycodone-acetaminophen [Percocet] 5-325 mg tablet 1 tab PO Q8H PRN (Reason: Breakthrough Pain, Moderate) Qty: 50 0RF Rx Instructions: Partial Fill upon patient request. Gemtesa 75 mg tablet 75 mg PO DAILY Qty: 30 1RF albuterol sulfate 2.5 mg /3 mL (0.083 %) solution for nebulization 2.5 mg inhalation Q4-6H PRN (Reason: for wheezing) Qty: 180 3RF cyanocobalamin (vitamin B-12) 1,000 mcg Tablet 1,000 mcg PO DAILY ferrous sulfate [Iron (ferrous sulfate)] 325 mg (65 mg iron) tablet 325 mg PO FR@0900 Rx Instructions: once a day for 1 week in a month zinc gluconate 50 mg tablet 50 mg PO DAILY Trulicity 1.5 mg/0.5 mL Pen Injector 1.5 mg SUBCUT FR furosemide 40 mg tablet 40 mg PO DAILY atorvastatin 80 mg tablet 80 mg PO DAILY sennosides [Senokot] 8.6 mg tablet 8.6 mg PO BID PRN (Reason: Constipation) triamcinolone acetonide 0.1 % cream 1 appl topical DAILY PRN (Reason: Itchy/Dry Skin) Rx Instructions: apply to affected area ondansetron 4 mg tablet,disintegrating 4 mg PO Q8H PRN (Reason: Nausea And Vomiting) clotrimazole 1 % cream 1 appl topical BID Rx Instructions: x 4 weeks solifenacin [Vesicare] 5 mg tablet 5 mg PO BEDTIME cholecalciferol (vitamin D3) 50 mcg (2,000 unit) capsule 50 mcg PO Q48H lorazepam 0.5 mg Tablet 0.25 mg PO Q6H PRN (Reason: Anxiety/Restlessness) Qty: 30 0RF nystatin [Nyamyc] 100,000 unit/gram Powder 1 appl topical BID Qty: 30 0RF Protocol: Apply to: Apply to: Perineal area and areas of redness avoid the face acetaminophen 325 mg capsule 325 mg PO QID PRN (Reason: Pain) albuterol sulfate 90 mcg/actuation HFA aerosol inhaler 1 puff inhalation QID PRN (Reason: Shortness Of Breath Or Wheezing) Qty: 8.5 3RF fluticasone propionate [Flonase Allergy Relief] 50 mcg/actuation spray,suspension 1 spray INTRANASAL BEDTIME Qty: 16 3RF Rx Instructions: administer into each nostril Held clonidine HCl 0.1 mg tablet 0.1 mg PO BEDTIME Qty: 90 11RF Hold Instructions: on hold for normal/low bp aspirin [Adult Aspirin Regimen] 81 mg tablet,delayed release (DR/EC) 81 mg PO DAILY 90 Days Qty: 90 11RF Hold Instructions: hold amlodipine 5 mg tablet 5 mg PO BID 30 Days Qty: 60 1RF Hold Instructions: on hold for normal bp losartan 25 mg tablet 25 mg PO DAILY Hold Instructions: on hold hydrochlorothiazide 12.5 mg tablet 12.5 mg PO DAILY Hold Instructions: on hold insulin aspart U-100 [Novolog FlexPen U-100 Insulin] 100 unit/mL (3 mL) insulin pen 20 unit subcut TIDAC Hold Instructions: has been getting insulin by sliding scale during hospitalization Discontinued insulin glargine [Lantus Solostar U-100 Insulin] 100 unit/mL (3 mL) insulin pen 28 unit subcut DAILY Qty: 15 7RF No Action (DME) baby wipes See Rx Instructions .Route .MEDSUPPLY Qty: 1 12RF Rx Instructions: As directed (DME) CHAIR LIFT See Rx Instructions .Route .MEDSUPPLY Qty: 1 0RF Rx Instructions: As directed (DME) Pull ups x-large See Rx Instructions .Route .MEDSUPPLY Qty: 240 11RF Rx Instructions: As directed (DME) lancets [FreeStyle Lancets] 28 gauge misc See Rx Instructions .ROUTE .COMPLEX Qty: 100 3RF Dose Instruction: USE DIRECTED THREE TIMES A DAY (BULK) Rx Instructions: USE DIRECTED THREE TIMES A DAY (BULK) (DME) FreeStyle Lite Strips Strip See Rx Instructions .ROUTE .MEDSUPPLY Qty: 100 3RF Rx Instructions: check BS 3X/DAY (DME) blood-glucose meter [FreeStyle Lite Meter] Kit See Rx Instructions .ROUTE .MEDSUPPLY Qty: 1 0RF Rx Instructions: As directed (DME) 500 mL Pleurx drains. See Rx Instructions .Route .MEDSUPPLY Qty: 15 3RF Rx Instructions: As directed (DME) matectomy BRA See Rx Instructions .Route .MEDSUPPLY Qty: 2 0RF Rx Instructions: As directed (DME) compress.stocking,knee,reg,lrg Misc See Rx Instructions .Route Qty: 12 0RF Rx Instructions: As directed 20-30 mm HG (DME) Incontinence BED PADS WASHABLE See Rx Instructions .Route .MEDSUPPLY Qty: 2 12RF Rx Instructions: As directed (DME) pen needle, diabetic 32 gauge x 1/4 needle See Rx Instructions miscellaneous .MEDSUPPLY Qty: 100 5RF Rx Instructions: as directed with insulin Discharge Orders: Discharge Order (Routine); Ordered 06/14/25 Ordered By: Rose Gunter Activity on Discharge: As tolerated Stand Alone Forms: Patient Portal Discharge page Print Language: Gabonese Care Plan Goals: see below Health Concerns: Stage IV breast cancer with recurrent bilateral malignant pleural effusions Plan of Treatment: s/p multiple doses of tpa/dornase with increasing b/l pleural effusions left pleurex catheter in place pulmonology has recommended surgical evaluation by interventional pulmonology vs thoracic surgery Assessment: see discharge summary Discharge Date/Time: 06/14/25 05:05
[2025-06-13 20:09] LABS: Glucose, Whole Blood 372 mg/dL (60-115)
[2025-06-13] MEDS: oxyCODONE HCl Immed Release 5 MG TABLET PO (22:09)
[2025-06-14] MEDS: Albuterol/Iprat 2.5/0.5MG 3 ML AMPUL.NEB INHALE (02:49)
[2025-06-14 02:51] VITALS: PULSE 98; RESP 20; O2SAT 93
[2025-06-14 03:25] VITALS: BP 129/58; PULSE 94; RESP 18; TEMP 36.6; O2SAT 96
== END 2025-06-14 05:05 | disposition short-term general hospital (02) | DRG 919 ==
LOC: HO.ED 06:00 → HO.EDOVER 09:13 → HO.ICU 09:42 → HO.IMC 06-03 10:59
PROVIDERS: Internal Medicine; Internal Medicine Pulmonary Disease; Physician Assistant Medical; Radiology Diagnostic Radiology; Student in an Organized Health Care Education/Training Program; Admitting Provider Internal Medicine Critical Care Medicine; Emergency Provider Emergency Medicine; PCP Internal Medicine; Visit Provider Physician Assistant Medical
PROC: 0W9930Z Drainage of Right Pleural Cavity with Drainage Device, Percutaneous Approach (ICD-10-PCS; principal; 2025-05-31 14:00)
DX: T85.898A Other specified complication of other internal prosthetic devices, implants and grafts, initial encounter (principal); G93.41 Metabolic encephalopathy; J96.21 Acute and chronic respiratory failure with hypoxia; R57.8 Other shock; J91.0 Malignant pleural effusion; I50.32 Chronic diastolic (congestive) heart failure; Y82.8 Other medical devices associated with adverse incidents; C50.912 Malignant neoplasm of unspecified site of left female breast; I11.0 Hypertensive heart disease with heart failure; E78.2 Mixed hyperlipidemia; D63.0 Anemia in neoplastic disease; Z20.822 Contact with and (suspected) exposure to COVID-19; E11.65 Type 2 diabetes mellitus with hyperglycemia; E66.812 Obesity, class 2; Z71.3 Dietary counseling and surveillance; Z68.38 Body mass index [BMI] 38.0-38.9, adult; Z90.12 Acquired absence of left breast and nipple; Z79.811 Long term (current) use of aromatase inhibitors; Z87.891 Personal history of nicotine dependence; Z79.4 Long term (current) use of insulin; Z79.82 Long term (current) use of aspirin; Z79.85 Long-term (current) use of injectable non-insulin antidiabetic drugs; Z79.899 Other long term (current) drug therapy
CPT/HCPCS: 32557; 36415; 71045; 71250; 80048; 80053; 82040; 82248; 82803; 82947; 83605; 83735; 83880; 84100; 84484; 85007; 85025; 85027; 87040; 87070; 87073; 87205; 87449; 87633; 87637; 87640; 87641; 87899; 89051; 93005; 94660; 94799; 99285; C1729; J1171; J1308; J1650; J1938; J1956; J2003; J2250; J2270; J2359; J2919; J2997; J3360

== ENCOUNTER → 2025-05-30 02:51 | Outpatient (BNV) | payer OTHER, SELFPAY | PROVIDERS: Admitting Provider Internal Medicine Critical Care Medicine; Emergency Provider Emergency Medicine; PCP Internal Medicine; Visit Provider Internal Medicine Cardiovascular Disease | DX: R00.0 Tachycardia, unspecified (principal) | CPT/HCPCS: 93010 ==

== ENCOUNTER → 2025-05-30 07:28 | Outpatient (BNV) | payer OTHER, SELFPAY | PROVIDERS: Emergency Provider Emergency Medicine; Visit Provider Radiology Diagnostic Radiology | DX: J90 Pleural effusion, not elsewhere classified (principal); J98.11 Atelectasis | CPT/HCPCS: 71045 ==

== ENCOUNTER 2025-05-30 08:52 | Outpatient (BNV) | payer OTHER, SELFPAY | END 2025-06-13 11:18 | PROVIDERS: Admitting Provider Internal Medicine Critical Care Medicine; Emergency Provider Emergency Medicine; PCP Internal Medicine; Visit Provider Radiology Diagnostic Radiology | DX: J90 Pleural effusion, not elsewhere classified (principal); R91.8 Other nonspecific abnormal finding of lung field | CPT/HCPCS: 71250 ==

== ENCOUNTER 2025-05-30 08:52 | Outpatient (BNV) | payer OTHER, SELFPAY | END 2025-06-11 06:00 | PROVIDERS: Admitting Provider Internal Medicine Critical Care Medicine; Emergency Provider Emergency Medicine; PCP Internal Medicine; Visit Provider Radiology Diagnostic Radiology | DX: R06.02 Shortness of breath (principal); J90 Pleural effusion, not elsewhere classified; I51.7 Cardiomegaly | CPT/HCPCS: 71045 ==

== ENCOUNTER 2025-05-30 08:52 | Outpatient (BNV) | payer OTHER, SELFPAY | END 2025-06-08 08:00 | PROVIDERS: Admitting Provider Internal Medicine Critical Care Medicine; Emergency Provider Emergency Medicine; PCP Internal Medicine; Visit Provider Specialist | DX: J90 Pleural effusion, not elsewhere classified (principal); J98.09 Other diseases of bronchus, not elsewhere classified; R91.8 Other nonspecific abnormal finding of lung field; R59.0 Localized enlarged lymph nodes | CPT/HCPCS: 71045; 71250 ==

== ENCOUNTER 2025-05-30 08:52 | Outpatient (BNV) | payer OTHER, SELFPAY | END 2025-05-31 15:13 | PROVIDERS: Admitting Provider Internal Medicine Critical Care Medicine; Emergency Provider Emergency Medicine; PCP Internal Medicine; Visit Provider Radiology Diagnostic Radiology | DX: J90 Pleural effusion, not elsewhere classified (principal) | CPT/HCPCS: 32557 ==

== ENCOUNTER 2025-05-30 08:52 | Outpatient (BNV) | payer OTHER, SELFPAY | END 2025-06-06 23:00 | PROVIDERS: Admitting Provider Internal Medicine Critical Care Medicine; Emergency Provider Emergency Medicine; PCP Internal Medicine; Visit Provider Radiology Diagnostic Radiology | DX: J90 Pleural effusion, not elsewhere classified (principal); J94.8 Other specified pleural conditions; R91.8 Other nonspecific abnormal finding of lung field; Z95.828 Presence of other vascular implants and grafts | CPT/HCPCS: 71045 ==

== ENCOUNTER 2025-05-30 08:52 | Outpatient (BNV) | payer OTHER, SELFPAY | END 2025-06-12 06:00 | PROVIDERS: Admitting Provider Internal Medicine Critical Care Medicine; Emergency Provider Emergency Medicine; PCP Internal Medicine; Visit Provider Radiology Diagnostic Radiology | DX: I51.7 Cardiomegaly (principal); J90 Pleural effusion, not elsewhere classified; J81.0 Acute pulmonary edema | CPT/HCPCS: 71045 ==

== ENCOUNTER 2025-05-30 08:52 | Outpatient (BNV) | payer OTHER, SELFPAY | END 2025-06-05 09:25 | PROVIDERS: Admitting Provider Internal Medicine Critical Care Medicine; Emergency Provider Emergency Medicine; PCP Internal Medicine; Visit Provider Radiology Diagnostic Radiology | DX: J90 Pleural effusion, not elsewhere classified (principal); Z97.8 Presence of other specified devices | CPT/HCPCS: 71045 ==

== ENCOUNTER 2025-05-30 08:52 | Outpatient (BNV) | payer OTHER, SELFPAY | END 2025-06-10 14:13 | PROVIDERS: Admitting Provider Internal Medicine Critical Care Medicine; Emergency Provider Emergency Medicine; PCP Internal Medicine; Visit Provider Radiology Diagnostic Radiology | DX: J90 Pleural effusion, not elsewhere classified (principal) | CPT/HCPCS: 32557 ==

== ENCOUNTER 2025-05-30 08:52 | Outpatient (BNV) | payer OTHER, SELFPAY | END 2025-06-01 12:45 | PROVIDERS: Admitting Provider Internal Medicine Critical Care Medicine; Emergency Provider Emergency Medicine; PCP Internal Medicine; Visit Provider Radiology Diagnostic Radiology | DX: J90 Pleural effusion, not elsewhere classified (principal); J98.11 Atelectasis; R91.8 Other nonspecific abnormal finding of lung field | CPT/HCPCS: 71045 ==

== ENCOUNTER 2025-05-30 08:52 | Outpatient (BNV) | payer OTHER, SELFPAY | END 2025-06-04 06:35 | PROVIDERS: Admitting Provider Internal Medicine Critical Care Medicine; Emergency Provider Emergency Medicine; PCP Internal Medicine; Visit Provider Radiology Diagnostic Radiology | DX: J90 Pleural effusion, not elsewhere classified (principal); Z97.8 Presence of other specified devices | CPT/HCPCS: 71045 ==

== ENCOUNTER → 2025-05-30 08:52 | Outpatient (BNV) | payer OTHER, SELFPAY | PROVIDERS: Admitting Provider Internal Medicine Critical Care Medicine; Emergency Provider Emergency Medicine; Visit Provider Internal Medicine Critical Care Medicine | DX: J96.01 Acute respiratory failure with hypoxia (principal); J18.9 Pneumonia, unspecified organism; J44.9 Chronic obstructive pulmonary disease, unspecified; J90 Pleural effusion, not elsewhere classified; I10 Essential (primary) hypertension | CPT/HCPCS: 99233; 99291 ==

== ENCOUNTER → 2025-05-30 08:52 | Outpatient (BNV) | payer OTHER, SELFPAY | PROVIDERS: Admitting Provider Internal Medicine Critical Care Medicine; Emergency Provider Emergency Medicine; PCP Internal Medicine; Visit Provider Internal Medicine Pulmonary Disease | DX: J96.01 Acute respiratory failure with hypoxia (principal); J44.9 Chronic obstructive pulmonary disease, unspecified; J90 Pleural effusion, not elsewhere classified; J91.0 Malignant pleural effusion; E11.65 Type 2 diabetes mellitus with hyperglycemia; Z79.4 Long term (current) use of insulin | CPT/HCPCS: 99233 ==

== ENCOUNTER → 2025-05-30 08:52 | Outpatient (BNV) | payer OTHER, SELFPAY | PROVIDERS: Admitting Provider Internal Medicine Critical Care Medicine; Emergency Provider Emergency Medicine; PCP Internal Medicine; Visit Provider Internal Medicine | DX: J90 Pleural effusion, not elsewhere classified (principal) | CPT/HCPCS: 99231; 99232; 99233; 99239 ==